=== PATIENT | female | born 2000 | race Caucasian/White ===

== ENCOUNTER 2022-12-11 09:23 | Outpatient (RCR) | payer OTHER, SELFPAY ==
[2022-12-11 10:23] LABS: HCG Quantitative 4197 mIU/mL
[2022-12-13 11:44] LABS: HCG Quantitative 11023 mIU/mL
== END 2023-01-02 15:59 | disposition home or self-care (01) ==
LOC: LAB 09:23
PROVIDERS: PCP Family Medicine; Visit Provider Obstetrics & Gynecology
DX: Z32.01 Encounter for pregnancy test, result positive (principal)
CPT/HCPCS: 36415; 84702

== ENCOUNTER 2022-12-27 16:00 | Emergency (ER) | payer OTHER, SELFPAY ==
[2022-12-27 16:04] VITALS: BP 119/72; PULSE 73; RESP 17; TEMP 36.9; O2SAT 100; BMI 20.7
[2022-12-27 16:09] VITALS: O2SAT 97
--- NOTE | 2022-12-27 16:21 | ED_ITS ---
HPI - Abdominal Pain General Chief Complaint: Abdominal Pain Stated Complaint: 7 WKS , ABDOMINAL PAIN, NAUSEA Time Seen by Provider: 12/27/22 16:08 Source: patient Mode of arrival: walk-in Limitations: no limitations History of Present Illness HPI narrative: patient is a 22-year-old female who presents to the emergency department for abdominal pain, nausea and vomiting. Patient states she is approximately seven weeks . She had an ultrasound showing twin gestation IUP with her [employer]. She has had no vaginal bleeding or fluid discharge. She denies urinary symptoms. She states for the last day she has had generalized abdominal pain, nausea and vomiting. No fevers or upper respiratory symptoms. Patient presents to this emergency department frequently for abdominal pain. she states she took Zofran two hours ago without improvement. Related Data Previous Rx's Medication Instructions Recorded cephalexin 500 mg capsule 500 mg PO Q8H 5 days #15 caps 12/27/22 metoclopramide HCl 10 mg tablet 10 mg PO Q6H PRN nausea and 12/27/22 (Reglan) vomiting #12 tabs Allergies Allergy/AdvReac Type Severity Reaction Status Date / Time No Known Drug Allergies Allergy Verified 12/27/22 16:03 Review of Systems ROS Constitutional Denies: fever or chills Ears, nose, mouth, and throat Denies: neck pain Cardiovascular Denies: chest pain Respiratory Denies: shortness of breath or cough Gastrointestinal Reports: abdominal pain, nausea and vomiting Musculoskeletal Denies: back pain or neck pain Integumentary/Breast Denies: rash PFSH PFSH Social History Smoking status: Current every day smoker Exam Narrative Exam Narrative: Gen.: Awake, alert, in no distress Head: Normocephalic, atraumatic ENT: Moist mucous membranes Respiratory: No respiratory distress, lungs clear bilaterally Cardio: Regular rate and rhythm Gastrointestinal: Abdomen is soft, nondistended and nontender to palpation; no pain out of proportion on exam Extremities: Moves extremities equally, no injuries noted Psych: Normal mood and affect Neuro: No focal neuro deficit Skin: Warm, dry, intact Constitutional Vital Signs - 24 hr 12/27/22 16:04 12/27/22 16:09 Temperature 98.5 F Pulse Rate [Monitor] 73 Respiratory Rate 17 Blood Pressure [Right Arm] 119/72 Pulse Oximetry 100 97 Oxygen Delivery Method Room Air Room Air Course Vital Signs Vital signs: Vital Signs Temperature 98.5 F 12/27/22 16:04 Pulse Rate 73 12/27/22 16:04 Respiratory Rate 17 12/27/22 16:04 Blood Pressure 119/72 12/27/22 16:04 Pulse Oximetry 100 12/27/22 16:04 Oxygen Delivery Method Room Air 12/27/22 16:04 Temperature 98.5 F 12/27/22 16:04 Pulse Rate 73 12/27/22 16:04 Respiratory Rate 17 12/27/22 16:04 Blood Pressure 119/72 12/27/22 16:04 Pulse Oximetry 97 12/27/22 16:09 Oxygen Delivery Method Room Air 12/27/22 16:09 MDM - Abdominal Pain MDM Narrative Medical decision making narrative: patient treated with IV fluids, Reglan, Bentyl. She stated that she was continuing to have abdominal pain and was given additional Tylenol and Carafate. Her lab studies show leukocytosis without bandemia as well as contaminated urinary tract infection. The remainder of the patient's labs are normal although her urine specimen was positive for marijuana which may be contributing to her nausea and vomiting in . She had no episodes of emesis in the emergency Department and tolerated the oral medications without difficulty. Abdomen is soft and benign on recheck by attending physician. Patient will be started on Keflex and Reglan for home, she has Zofran from her [employer]. Follow-up with seafood preparer and return to the Emergency Room if symptoms change or worsen. Patient with no suprapubic tenderness on exam, she has an ultrasound showing twin IUP, no concern for ectopic or tubal at this time. Her quantitative hCG levels have risen significantly in the last two weeks as expected. She has no vaginal bleeding or discharge complaints. Medical Records Attestation: I reviewed the patient's medical records. Lab Data Attestation: I reviewed the patient's lab results. Labs: Lab Results 12/27/22 12/27/22 Range/Units 16:08 16:20 WBC 17.7 H (4.0-11.0) 10^3/uL RBC 4.44 (4.20-5.40) 10^6/uL Hgb 12.8 (12.0-16.0) g/dL Hct 38.3 (36.0-48.0) % MCV 86.3 (81.0-99.0) fL MCH 28.8 (26.7-34.0) pg MCHC 33.4 (29.9-35.2) g/dL RDW 13.2 (11.0-15.0) % Plt Count 329 (150-450) 10^3/uL MPV 10.8 (9.5-13.5) fL Neut % (Auto) 86.9 H (43.0-75.0) % Lymph % (Auto) 8.7 L (20.5-60.0) % [place] % (Auto) 3.6 (1.7-12.0) % Eos % (Auto) 0.1 L (0.9-7.0) % Baso % (Auto) 0.3 (0.2-2.0) % Neut # (Auto) 15.4 H (1.4-6.5) 10^3/uL Lymph # (Auto) 1.5 (1.2-3.8) 10^3/uL [place] # (Auto) 0.6 (0.3-0.8) 10^3/uL Eos # (Auto) 0.0 (0.0-0.7) 10^3/uL Baso # (Auto) 0.1 (0.0-0.1) 10^3/uL Abs Immat Gran (auto) 0.07 H (0.00-0.03) 10^3/uL Imm/Tot Granulo (auto) 0.4 (0.0-0.5) % Sodium 136 (136-145) mmol/L Potassium 3.8 (3.5-5.1) mmol/L Chloride 101 (98-107) mmol/L Carbon Dioxide 26.6 (21.0-32.0) mmol/L Anion Gap 12.2 BUN 7.0 (7.0-18.0) mg/dL Creatinine 0.57 (0.55-1.02) mg/dL Est GFR ( Amer) >60 (>=60) Est GFR (Non-Af Amer) >60 (>=60) BUN/Creatinine Ratio 12.3 Glucose 97 (74-106) mg/dL Calcium 9.4 (8.5-10.1) mg/dL Total Bilirubin 0.3 (0.2-1.0) mg/dL AST 16 (15-37) U/L ALT 29 (14-59) U/L Alkaline Phosphatase 61 (46-116) U/L Total Protein 7.8 (6.4-8.2) g/dL Albumin 4.1 (3.4-5.0) g/dL Globulin 3.7 g/dL Albumin/Globulin Ratio 1.1 Lipase 53.0 L (73.0-393.0) U/L HCG, Quant 012533 mIU/mL Urine Color Yellow (YELLOW) Urine Clarity Clear (CLEAR) Urine pH 5.5 (5.0-9.0) Ur Specific [place] 1.025 (1.005-1.025) Urine Protein Negative (NEG/TRACE) mg/dL Urine Glucose (UA) Negative (NEGATIVE) mg/dL Urine Ketones 40 A (NEGATIVE) mg/dL Urine Occult Blood Negative (NEGATIVE) Urine Nitrite Negative (NEGATIVE) Urine Bilirubin Negative (NEGATIVE) Urine Urobilinogen 0.2 (0.2-1.0) EU/dL Ur Leukocyte Esterase Small A (NEGATIVE) Urine RBC 0-2 (0-2) #/HPF Urine WBC 5-10 A (NONE SEEN) #/HPF Ur Squamous Epith Cells Moderate A (NONE/RARE) #/LPF Urine Crystals None seen (None Seen) #/HPF Urine Bacteria Trace A (NONE SEEN) #/HPF Urine Casts None seen (NONE SEEN) #/LPF Urine Mucus None seen (NONE SEEN) Ur Culture Indicated? Yes Urine Opiates Screen Negative (NEGATIVE) Ur Buprenorphine Scrn Negative (NEGATIVE) Ur Oxycodone Screen Negative (NEGATIVE) Urine Methadone Screen Negative (NEGATIVE) Ur Propoxyphene Screen Negative (NEGATIVE) Ur Barbiturates Screen Negative (NEGATIVE) U Tricyclic Antidepress Negative (NEGATIVE) Ur Phencyclidine Scrn Negative (NEGATIVE) Ur Amphetamines Screen Negative (NEGATIVE) U Methamphetamines Scrn Negative (NEGATIVE) U Benzodiazepines Scrn Negative (NEGATIVE) Urine Cocaine Screen Negative (NEGATIVE) U Cannabinoids Screen Positive A (NEGATIVE) Discharge Plan Discharge Chief Complaint: Abdominal Pain Clinical Impression: UTI (urinary tract infection), Abdominal pain Patient Disposition: Home, Self-Care Time of Disposition Decision: 18:35 Condition: Good Prescriptions / Home Meds: New cephalexin 500 mg capsule 500 mg PO Q8H 5 Days Qty: 15 0RF metoclopramide HCl [Reglan] 10 mg tablet 10 mg PO Q6H PRN (Reason: nausea and vomiting) Qty: 12 0RF Instructions: Nausea and Vomiting in (ED), Urinary Tract Infection in (ED) Stand Alone Forms: Portal Instructions Referrals: Shan Moya MD [Primary Care Provider] - 1 week
[2022-12-27 16:28] LABS: Basophils Absolute Auto 0.1 10^3/uL (0.0-0.1); Basophils Percent Auto 0.3 % (0.2-2.0); Eosinophils Percent Auto 0.1 % (0.9-7.0); Hematocrit 38.3 % (36.0-48.0); Hemoglobin 12.8 g/dL (12.0-16.0); Immature Granulocytes Abs Auto 0.07 10^3/uL (0.00-0.03); Immature Granulocytes Pct Auto 0.4 % (0.0-0.5); Lymphocytes Absolute Auto 1.5 10^3/uL (1.2-3.8); Lymphocytes Percent Auto 8.7 % (20.5-60.0); Mean Corpuscular HGB Conc 33.4 g/dL (29.9-35.2); Mean Corpuscular Hemoglobin 28.8 pg (26.7-34.0); Mean Corpuscular Volume 86.3 fL (81.0-99.0); Mean Platelet Volume 10.8 fL (9.5-13.5); Monocytes Absolute Auto 0.6 10^3/uL (0.3-0.8); Monocytes Percent Auto 3.6 % (1.7-12.0); Neutrophils Absolute Auto 15.4 10^3/uL (1.4-6.5); Neutrophils Percent Auto 86.9 % (43.0-75.0); Platelet Count 329 10^3/uL (150-450); Red Blood Count 4.44 10^6/uL (4.20-5.40); Red Cell Distribution Width 13.2 % (11.0-15.0); White Blood Count 17.7 10^3/uL (4.0-11.0)
[2022-12-27 16:29] LABS: Bilirubin Urine NEGATIVE (NEGATIVE); Blood Urine NEGATIVE (NEGATIVE); Clarity Urine CLEAR (CLEAR); Color Urine YELLOW (YELLOW); Glucose Urine UA NEGATIVE (NEGATIVE); Ketones Urine 40 mg/dL (NEGATIVE); Leukocyte Esterase Urine SMALL (NEGATIVE); Nitrite Urine NEGATIVE (NEGATIVE); Protein Urine NEGATIVE (NEG/TRACE); Specific Gravity Urine 1.025 (1.005-1.025); Urobilinogen Urine 0.2 EU/dL (0.2-1.0); pH Urine 5.5 (5.0-9.0)
[2022-12-27 16:33] LABS: Urine Microscopic Indicated YES
[2022-12-27] MEDS: 0.9 % SODIUM CHLORIDE 1,000 ML 999 ML IV (16:36)
[2022-12-27] MEDS: METOCLOPRAMIDE HCL 10 MG/2 ML VIAL INJ (16:37)
[2022-12-27] MEDS: DICYCLOMINE HCL 10 MG CAPSULE 20 MG PO (16:38)
[2022-12-27 16:43] LABS: RBC Urine 0-2 #/HPF (0-2)
[2022-12-27 16:44] LABS: Bacteria Urine TRACE #/HPF (NONE SEEN); Cast Seen? NONE SEEN #/LPF (NONE SEEN); Crystals Seen? None Seen #/HPF (None Seen); Mucus Urine NONE SEEN (NONE SEEN); Squamous Epithelial Cell Urine MODERATE #/LPF (NONE/RARE); Urine Culture Indicated YES
[2022-12-27 16:50] LABS: Alanine Aminotransferase 29 U/L (14-59); Albumin Globulin Ratio 1.1; Albumin Level 4.1 g/dL (3.4-5.0); Alkaline Phosphatase 61 U/L (46-116); Anion Gap 12.2; Aspartate Amino Transferase 16 U/L (15-37); BUN Creatinine Ratio 12.3; Bilirubin Total 0.3 mg/dL (0.2-1.0); Calcium 9.4 mg/dL (8.5-10.1); Carbon Dioxide 26.6 mmol/L (21.0-32.0); Chloride 101 mmol/L (98-107); Estimated GFR (African America >60 (>=60); Estimated GFR (Non-African Ame >60 (>=60); Globulin 3.7 g/dL; Glucose 97 mg/dL (74-106); Potassium 3.8 mmol/L (3.5-5.1); Sodium 136 mmol/L (136-145); Total Protein 7.8 g/dL (6.4-8.2)
[2022-12-27 16:53] LABS: Amphetamine Screen Urine NEGATIVE (NEGATIVE); Barbiturates Screen Urine NEGATIVE (NEGATIVE); Benzodiazepines Screen Urine NEGATIVE (NEGATIVE); Buprenorphine Screen Urine NEGATIVE (NEGATIVE); Cannabinoid Screen Urine POSITIVE (NEGATIVE); Cocaine Screen Urine NEGATIVE (NEGATIVE); Methadone Screen Urine NEGATIVE (NEGATIVE); Methamphetamines Screen Urine NEGATIVE (NEGATIVE); Opiate Screen Urine NEGATIVE (NEGATIVE); Oxycodone Screen Urine NEGATIVE (NEGATIVE); Phencyclidine Screen Urine NEGATIVE (NEGATIVE); Tricyclic Antidepressant Urine NEGATIVE (NEGATIVE)
[2022-12-27] MEDS: SUCRALFATE 1 GM TABLET PO (17:21)
[2022-12-27] MEDS: ACETAMINOPHEN 325 MG TABLET 650 MG PO (17:21)
== END 2022-12-27 18:43 | disposition home or self-care (01) ==
PROVIDERS: Physician Assistant; Emergency Provider Emergency Medicine; PCP Family Medicine
DX: O23.41 Unspecified infection of urinary tract in pregnancy, first trimester (principal); N39.0 Urinary tract infection, site not specified; O26.891 Other specified pregnancy related conditions, first trimester; R10.9 Unspecified abdominal pain; Z3A.01 Less than 8 weeks gestation of pregnancy
CPT/HCPCS: 36415; 80053; 80307; 81003; 81015; 83690; 84702; 85025; 87086; 96372; 99284

== ENCOUNTER 2023-01-11 09:34 | Outpatient (OUT) | payer OTHER, SELFPAY ==
--- NOTE | 2023-01-11 09:04 | US_ITS ---
The [address] [address] Patient Name: LELIA CONNOLLY MRN: [id number] date: 2000 Sex: F Assigned Patient Location: US Current Patient Location: LAB Accession/Order Number: [id number] Exam Date: 01/11/2023 09:04 Report Date: 01/11/2023 19:09 At the request of: EN JOHNSON Procedure: US OB transvaginal EXAMINATION: US OB transvaginal HISTORY: MISSED PERIOD COMPARISON: No relevant comparison available. FINDINGS: GESTATIONAL SAC: Present and normal appearing x2. YOLK SAC: Present and normal appearing x2. POLE: Present and normal appearing x2. CARDIAC: Present x2. UTERUS: Normal size and appearance. OVARIES: Right: Normal. Left: Normal. CERVIX: 5.2 cm in length and closed. CUL-DE-SAC: Normal. OTHER: None. AGE BY LMP: 9 weeks 1 day ARNALDO BY LMP: 08/15/2023 AGE BY US CRL: Baby A: 9 weeks 1 day Baby B: 9 weeks 0 days ARNALDO BY US CRL: Baby A: 08/15/2023 Baby B: 08/16/2023 US/US OB transvaginal IMPRESSION: 1. Live twin intrauterine . Electronically authenticated by: SHIRLEY PATEL Date: 01/11/2023 19:09
== END 2023-01-11 09:35 | disposition home or self-care (01) ==
LOC: US 09:35
PROVIDERS: PCP Family Medicine; Visit Provider Obstetrics & Gynecology
DX: O30.001 Twin pregnancy, unspecified number of placenta and unspecified number of amniotic sacs, first trimester (principal); Z3A.09 9 weeks gestation of pregnancy; N92.6 Irregular menstruation, unspecified
CPT/HCPCS: 76817

== ENCOUNTER 2023-01-21 12:50 | Observation (INO) | payer OTHER, SELFPAY ==
[2023-01-21 12:55] VITALS: BP 124/68; PULSE 63; RESP 18; TEMP 36.4; O2SAT 96; BMI 18.5
[2023-01-21] MEDS: 0.9 % SODIUM CHLORIDE 1,000 ML 1000 ML IV ×2 (13:18→14:33)
[2023-01-21] MEDS: DIPHENHYDRAMINE HCL 50 MG/ML (1ML) VIAL 25 MG IV ×3 (13:19→21:14)
[2023-01-21] MEDS: FAMOTIDINE/PF 20 MG/2 ML VIAL IV (13:19)
[2023-01-21 13:36] LABS: Alanine Aminotransferase 24 U/L (14-59); Albumin Globulin Ratio 1.1; Albumin Level 3.8 g/dL (3.4-5.0); Alkaline Phosphatase 52 U/L (46-116); Anion Gap 14.2; Aspartate Amino Transferase 16 U/L (15-37); BUN Creatinine Ratio 8.2; Bilirubin Total 0.2 mg/dL (0.2-1.0); Calcium 8.7 mg/dL (8.5-10.1); Carbon Dioxide 22.8 mmol/L (21.0-32.0); Chloride 102 mmol/L (98-107); Estimated GFR (African America >60 (>=60); Estimated GFR (Non-African Ame >60 (>=60); Globulin 3.5 g/dL; Glucose 164 mg/dL (74-106); Sodium 136 mmol/L (136-145); Total Protein 7.3 g/dL (6.4-8.2)
[2023-01-21 13:39] LABS: Basophils Absolute Auto 0.1 10^3/uL (0.0-0.1); Basophils Percent Auto 0.3 % (0.2-2.0); Hematocrit 33.4 % (36.0-48.0); Hemoglobin 11.2 g/dL (12.0-16.0); Immature Granulocytes Abs Auto 0.15 10^3/uL (0.00-0.03); Immature Granulocytes Pct Auto 0.7 % (0.0-0.5); Lymphocytes Absolute Auto 2.1 10^3/uL (1.2-3.8); Lymphocytes Percent Auto 9.6 % (20.5-60.0); Mean Corpuscular HGB Conc 33.5 g/dL (29.9-35.2); Mean Corpuscular Hemoglobin 28.4 pg (26.7-34.0); Mean Corpuscular Volume 84.6 fL (81.0-99.0); Mean Platelet Volume 11.4 fL (9.5-13.5); Monocytes Absolute Auto 0.6 10^3/uL (0.3-0.8); Monocytes Percent Auto 2.6 % (1.7-12.0); Neutrophils Absolute Auto 19.3 10^3/uL (1.4-6.5); Neutrophils Percent Auto 86.8 % (43.0-75.0); Platelet Count 398 10^3/uL (150-450); Red Blood Count 3.95 10^6/uL (4.20-5.40); Red Cell Distribution Width 13.2 % (11.0-15.0); White Blood Count 22.3 10^3/uL (4.0-11.0)
--- NOTE | 2023-01-21 13:44 | ED.GENADUL1 ---
HPI - General Adult General Chief complaint: Nausea/Vomiting/Diarrhea Stated complaint: NAUSEA/ ALMOST 11 WKS Time Seen by Provider: 01/21/23 13:02 Mode of arrival: walk-in Limitations: no limitations History of Present Illness HPI narrative: The patient is 11 weeks with twin , presented to us with nausea and vomiting that started this morning and she has not been able to tolerate anything p.o., she was retching while I am talking to her She is also complaining of epigastric pain The pain is not radiating not associated with any other symptoms other than the nausea and the vomiting The patient already tried Zofran and Reglan at homewith no improvement Related Data Previous Rx's Medication Instructions Recorded cephalexin 500 mg capsule 500 mg PO Q8H 5 days #15 caps 12/27/22 metoclopramide HCl 10 mg tablet 10 mg PO Q6H PRN nausea and 12/27/22 (Reglan) vomiting #12 tabs Allergies Allergy/AdvReac Type Severity Reaction Status Date / Time No Known Drug Allergies Allergy Verified 12/27/22 16:03 Review of Systems ROS Status of ROS 10 or more systems reviewed and unremarkable except as noted in history and below [facility] Social History Smoking status: Current every day smoker Exam Narrative Exam Narrative: Nurses notes and vital signs reviewed and patient is not hypoxic. General: Well-appearing and in no apparent distress. Skin: Warm, dry, no pallor noted. No rash. Head: Normocephalic, atraumatic. Neck: Supple, non-tender. Eye: Pupils are equal, round and EOMI. No scleral icterus. Ears, Nose, Mouth, and Throat: TM are clear, no nasal mucosal hypertrophy. Oral mucosa is moist, no posterior oropharynx erythema, uvula is mid-line Cardiovascular: Regular Rate and Rhythm without murmur, gallop or rub. Respiratory: No accessory muscle use or respiratory distress. Lungs are clear to auscultation, no wheezing, rales or rhonchi Chest Wall: no tenderness Back: No midline thoracic or lumbar vertebral tenderness. No CVA tenderness Musculoskeletal: normal ROM, no calf or popliteal tenderness, no lower extremity edema/swelling GI: Abdomen is soft, non-distended. Normal bowel sounds. No masses appreciated. Mild epigastric discomfort and the patient have no guarding or rebound or rigidity Neurological: A&O x4. No cranial nerve dysfunction observed. No truncal ataxia. Moves all extremities. Sensation intact. Psychiatric: Cooperative and interactive. Normal mood and affect. Constitutional Vital Signs, click to edit/add: Last Vital Signs Temp 97.6 F 01/21/23 12:55 Pulse 63 01/21/23 12:55 Resp 18 01/21/23 12:55 BP 124/68 H 01/21/23 12:55 Pulse Ox 96 01/21/23 12:55 Course Vital Signs Vital signs: Vital Signs Temperature 97.6 F 01/21/23 12:55 Pulse Rate 63 01/21/23 12:55 Respiratory Rate 18 01/21/23 12:55 Blood Pressure 124/68 H 01/21/23 12:55 Pulse Oximetry 96 01/21/23 12:55 Temperature 97.6 F 01/21/23 12:55 Pulse Rate 63 01/21/23 12:55 Respiratory Rate 18 01/21/23 12:55 Blood Pressure 124/68 H 01/21/23 12:55 Pulse Oximetry 96 01/21/23 12:55 Medical Decision Making MDM Narrative Medical decision making narrative: Patient did not have any lower abdominal pain on multiple evaluation CBC was showing leukocytosis and she did look dehydrated upon presentation, she was not able to give us any urine sample until the second liter was given and she was able to give us a very small urine sample with ketones in it The patient chemistry showing hypokalemia and hypomagnesemia with potassium of 3 and magnesium 1.7 Patient provided with Zofran as well as Reglan Benadryl twice and Pepcid to control his symptoms With the patient's symptoms being severe the patient will be admitted under Dr. Joy , Dr Quintana also had the case discussed with him and he will be consulted on the patient as inpatient Lab Data Labs: Lab Results 01/21/23 01/21/23 01/21/23 Range/Units 13:00 13:05 13:08 WBC 22.3 H (4.0-11.0) 10^3/uL RBC 3.95 L (4.20-5.40) 10^6/uL Hgb 11.2 L (12.0-16.0) g/dL Hct 33.4 L (36.0-48.0) % MCV 84.6 (81.0-99.0) fL MCH 28.4 (26.7-34.0) pg MCHC 33.5 (29.9-35.2) g/dL RDW 13.2 (11.0-15.0) % Plt Count 398 (150-450) 10^3/uL MPV 11.4 (9.5-13.5) fL Neut % (Auto) 86.8 H (43.0-75.0) % Lymph % (Auto) 9.6 L (20.5-60.0) % [place] % (Auto) 2.6 (1.7-12.0) % Eos % (Auto) 0.0 L (0.9-7.0) % Baso % (Auto) 0.3 (0.2-2.0) % Neut # (Auto) 19.3 H (1.4-6.5) 10^3/uL Lymph # (Auto) 2.1 (1.2-3.8) 10^3/uL [place] # (Auto) 0.6 (0.3-0.8) 10^3/uL Eos # (Auto) 0.0 (0.0-0.7) 10^3/uL Baso # (Auto) 0.1 (0.0-0.1) 10^3/uL Abs Immat Gran (auto) 0.15 H (0.00-0.03) 10^3/uL Imm/Tot Granulo (auto) 0.7 H (0.0-0.5) % Sodium 136 (136-145) mmol/L Potassium 3.0 L (3.5-5.1) mmol/L Chloride 102 (98-107) mmol/L Carbon Dioxide 22.8 (21.0-32.0) mmol/L Anion Gap 14.2 BUN 4.0 L (7.0-18.0) mg/dL Creatinine 0.49 L (0.55-1.02) mg/dL Est GFR ( Amer) >60 (>=60) Est GFR (Non-Af Amer) >60 (>=60) BUN/Creatinine Ratio 8.2 Glucose 164 H (74-106) mg/dL Calcium 8.7 (8.5-10.1) mg/dL Magnesium 1.7 L (1.8-2.4) mg/dL Total Bilirubin 0.2 (0.2-1.0) mg/dL AST 16 (15-37) U/L ALT 24 (14-59) U/L Alkaline Phosphatase 52 (46-116) U/L Total Protein 7.3 (6.4-8.2) g/dL Albumin 3.8 (3.4-5.0) g/dL Globulin 3.5 g/dL Albumin/Globulin Ratio 1.1 HCG, Quant 354365 mIU/mL Urine Color (YELLOW) Urine Clarity (CLEAR) Urine pH (5.0-9.0) Ur Specific [place] (1.005-1.025) Urine Protein (NEG/TRACE) mg/dL Urine Glucose (UA) (NEGATIVE) mg/dL Urine Ketones (NEGATIVE) mg/dL Urine Occult Blood (NEGATIVE) Urine Nitrite (NEGATIVE) Urine Bilirubin (NEGATIVE) Urine Urobilinogen (0.2-1.0) EU/dL Ur Leukocyte Esterase (NEGATIVE) 01/21/23 Range/Units 14:40 WBC (4.0-11.0) 10^3/uL RBC (4.20-5.40) 10^6/uL Hgb (12.0-16.0) g/dL Hct (36.0-48.0) % MCV (81.0-99.0) fL MCH (26.7-34.0) pg MCHC (29.9-35.2) g/dL RDW (11.0-15.0) % Plt Count (150-450) 10^3/uL MPV (9.5-13.5) fL Neut % (Auto) (43.0-75.0) % Lymph % (Auto) (20.5-60.0) % [place] % (Auto) (1.7-12.0) % Eos % (Auto) (0.9-7.0) % Baso % (Auto) (0.2-2.0) % Neut # (Auto) (1.4-6.5) 10^3/uL Lymph # (Auto) (1.2-3.8) 10^3/uL [place] # (Auto) (0.3-0.8) 10^3/uL Eos # (Auto) (0.0-0.7) 10^3/uL Baso # (Auto) (0.0-0.1) 10^3/uL Abs Immat Gran (auto) (0.00-0.03) 10^3/uL Imm/Tot Granulo (auto) (0.0-0.5) % Sodium (136-145) mmol/L Potassium (3.5-5.1) mmol/L Chloride (98-107) mmol/L Carbon Dioxide (21.0-32.0) mmol/L Anion Gap BUN (7.0-18.0) mg/dL Creatinine (0.55-1.02) mg/dL Est GFR ( Amer) (>=60) Est GFR (Non-Af Amer) (>=60) BUN/Creatinine Ratio Glucose (74-106) mg/dL Calcium (8.5-10.1) mg/dL Magnesium (1.8-2.4) mg/dL Total Bilirubin (0.2-1.0) mg/dL AST (15-37) U/L ALT (14-59) U/L Alkaline Phosphatase (46-116) U/L Total Protein (6.4-8.2) g/dL Albumin (3.4-5.0) g/dL Globulin g/dL Albumin/Globulin Ratio HCG, Quant mIU/mL Urine Color Lt. yellow (YELLOW) Urine Clarity Clear (CLEAR) Urine pH 8.0 (5.0-9.0) Ur Specific [place] 1.025 (1.005-1.025) Urine Protein Negative (NEG/TRACE) mg/dL Urine Glucose (UA) 250 A (NEGATIVE) mg/dL Urine Ketones 15 A (NEGATIVE) mg/dL Urine Occult Blood Negative (NEGATIVE) Urine Nitrite Negative (NEGATIVE) Urine Bilirubin Negative (NEGATIVE) Urine Urobilinogen 0.2 (0.2-1.0) EU/dL Ur Leukocyte Esterase Negative (NEGATIVE) Discharge Plan Discharge Chief Complaint: Nausea/Vomiting/Diarrhea Clinical Impression: Nausea and vomiting during , Acute hypokalemia, Hypomagnesemia Patient Disposition: Admitted As Inpatient Time of Disposition Decision: 16:11 Condition: Fair
--- NOTE | 2023-01-21 13:49 | XR_ITS ---
[address] [address] Patient Name: LELIA CONNOLLY MRN: [id number] date: 2000 Sex: F Assigned Patient Location: ER Current Patient Location: ER Accession/Order Number: [id number] Exam Date: 01/21/2023 14:00 Report Date: 01/21/2023 14:42 At the request of: ELÍAS HAHN Procedure: XR abdomen 1V EXAMINATION: XR abdomen 1V HISTORY: epigastric abd pain COMPARISON: No relevant comparison available. FINDINGS: BOWEL GAS PATTERN: No abnormal dilation or deviation. CALCIFICATIONS: None significant. OTHER: Negative. No abnormal gaseous collections. XR/XR abdomen 1V IMPRESSION: 1. Normal examination. Electronically authenticated by: SHIRLEY PATEL Date: 01/21/2023 14:42
--- NOTE | 2023-01-21 13:51 | US_ITS ---
The [address] [address] Patient Name: LELIA CONNOLLY MRN: [id number] date: 2000 Sex: F Assigned Patient Location: ER Current Patient Location: ER Accession/Order Number: [id number] Exam Date: 01/21/2023 14:10 Report Date: 01/21/2023 14:42 At the request of: ELÍAS HAHN Procedure: US right upper quadrant PROCEDURE: US right upper quadrant, 01/21/2023 2:10 PM EDT CLINICAL INDICATIONS: Left upper quadrant abdominal pain, 10 week , nausea, vomiting COMPARISON: None TECHNIQUE: Right upper quadrant abdominal sonogram FINDINGS: Visualized pancreas is unremarkable. No ductal dilatation is seen. Hepatic parenchyma is normal in morphology and echogenicity. Hepatic contour is smooth. Focal hepatic abnormality is not seen. Visualized hepatic vasculature is patent with antegrade flow. Portal vein is patent, antegrade flow, normal velocity. Common bile duct 0.6 cm. The gallbladder is normal in size. Gallbladder calculus, wall thickening, or pain in the region is not elicited. Right kidney is normal in morphology. It measures 9.2 x 5.9 x 6.0 cm. No hydronephrosis or shadowing calculus is identified. Focal renal abnormality is not demonstrated. No free fluid. US/US right upper quadrant IMPRESSION: 1. No acute right upper quadrant abdominal pathology Electronically authenticated by: ANA TOBAR Date: 01/21/2023 14:42
[2023-01-21] MEDS: ONDANSETRON PF 4 MG/2 ML VIAL IV ×3 (13:55→23:29)
[2023-01-21] MEDS: METOCLOPRAMIDE HCL 10 MG/2 ML VIAL 5 MG IVP (14:40)
[2023-01-21 14:48] LABS: Magnesium 1.7 mg/dL (1.8-2.4)
[2023-01-21] MEDS: MORPHINE SULFATE 2 MG/ML SYRINGE 1 MG IV (15:23)
--- NOTE | 2023-01-21 15:30 | ECG_ITS ---
The [facility] Test Date: 2023-01-21 Pat Name: LELIA CONNOLLY Department: Room: - Gender: Female [employer] Celebrant: : 2000 Requested By: [id number] Order Number: [id number] Reading MD: ADRI ANDRADE Measurements Intervals [place] Rate: 77 P: 65 OK: 116 QRS: 88 QRSD: 90 T: 65 QT: 438 QTc: 470 Interpretive Statements 1100 Sinus rhythm 1470 with occasional supraventricular premature complexes 2210 Short OK interval 4068 Nonspecific Twave abnormality 8304 Long QTc interval 9150 abnormal ECG No previous ECG available for comparison Electronically Signed On 01-22-2023 7:20:03 EDT by ADRI ANDRADE
[2023-01-21 15:34] LABS: Bilirubin Urine NEGATIVE (NEGATIVE); Blood Urine NEGATIVE (NEGATIVE); Clarity Urine CLEAR (CLEAR); Color Urine LT. YELLOW (YELLOW); Glucose Urine UA 250 mg/dL (NEGATIVE); Ketones Urine 15 mg/dL (NEGATIVE); Leukocyte Esterase Urine NEGATIVE (NEGATIVE); Nitrite Urine NEGATIVE (NEGATIVE); Protein Urine NEGATIVE (NEG/TRACE); Specific Gravity Urine 1.025 (1.005-1.025); Urobilinogen Urine 0.2 EU/dL (0.2-1.0)
[2023-01-21 15:38] LABS: Urine Microscopic Indicated NO
[2023-01-21] MEDS: POTASSIUM CHLORIDE IN WATER 10 MEQ/100 ML PIGGYBACK 100 MEQ IV (16:03)
[2023-01-21 17:28] VITALS: BP 118/72; PULSE 81; RESP 16; TEMP 36.7; O2SAT 96; BMI 22.0
[2023-01-21 18:11] LABS: Amphetamine Screen Urine NEGATIVE (NEGATIVE); Barbiturates Screen Urine NEGATIVE (NEGATIVE); Benzodiazepines Screen Urine NEGATIVE (NEGATIVE); Buprenorphine Screen Urine NEGATIVE (NEGATIVE); Cannabinoid Screen Urine POSITIVE (NEGATIVE); Cocaine Screen Urine NEGATIVE (NEGATIVE); Methadone Screen Urine NEGATIVE (NEGATIVE); Methamphetamines Screen Urine NEGATIVE (NEGATIVE); Opiate Screen Urine NEGATIVE (NEGATIVE); Oxycodone Screen Urine NEGATIVE (NEGATIVE); Phencyclidine Screen Urine NEGATIVE (NEGATIVE); Tricyclic Antidepressant Urine NEGATIVE (NEGATIVE)
[2023-01-21] MEDS: 0.9 % SODIUM CHLORIDE 1,000 ML 125 ML IV (18:19)
[2023-01-21] MEDS: CEFAZOLIN SODIUM/DEXTROSE,ISO 1 GM/50 ML IV.SOLN IV (21:09)
[2023-01-21 21:10] VITALS: BP 117/69; PULSE 83; RESP 18; TEMP 36.7; O2SAT 99
[2023-01-21] MEDS: METOCLOPRAMIDE HCL 10 MG/2 ML VIAL (21:14)
[2023-01-21] MEDS: METRONIDAZOLE/SODIUM CHLORIDE 500 MG/100 ML PREMIX 100 MG IV (22:02)
[2023-01-21] MEDS: DICYCLOMINE HCL 10 MG CAPSULE PO (23:46)
[2023-01-22] MEDS: METOCLOPRAMIDE HCL 10 MG/2 ML VIAL IVP (01:03)
[2023-01-22] MEDS: ONDANSETRON PF 4 MG/2 ML VIAL IV ×2 (03:07→09:02)
[2023-01-22] MEDS: CEFAZOLIN SODIUM/DEXTROSE,ISO 1 GM/50 ML IV.SOLN IV ×2 (03:07→12:39)
[2023-01-22] MEDS: 0.9 % SODIUM CHLORIDE 1,000 ML 125 ML IV ×2 (03:13→12:38)
[2023-01-22 04:25] VITALS: BP 112/70; PULSE 98; RESP 18; TEMP 37.2; O2SAT 99
[2023-01-22 04:44] LABS: Basophils Percent Auto 0.1 % (0.2-2.0); Hematocrit 29.3 % (36.0-48.0); Hemoglobin 9.9 g/dL (12.0-16.0); Immature Granulocytes Abs Auto 0.19 10^3/uL (0.00-0.03); Immature Granulocytes Pct Auto 0.8 % (0.0-0.5); Lymphocytes Absolute Auto 1.1 10^3/uL (1.2-3.8); Lymphocytes Percent Auto 4.4 % (20.5-60.0); Mean Corpuscular HGB Conc 33.8 g/dL (29.9-35.2); Mean Corpuscular Hemoglobin 28.3 pg (26.7-34.0); Mean Corpuscular Volume 83.7 fL (81.0-99.0); Mean Platelet Volume 11.4 fL (9.5-13.5); Monocytes Percent Auto 3.9 % (1.7-12.0); Neutrophils Absolute Auto 22.9 10^3/uL (1.4-6.5); Neutrophils Percent Auto 90.8 % (43.0-75.0); Platelet Count 307 10^3/uL (150-450); Red Cell Distribution Width 13.3 % (11.0-15.0); White Blood Count 25.2 10^3/uL (4.0-11.0)
[2023-01-22 05:02] LABS: Estimated Average Glucose 97 mg/dL
[2023-01-22 05:20] LABS: Alanine Aminotransferase 23 U/L (14-59); Albumin Level 3.2 g/dL (3.4-5.0); Alkaline Phosphatase 47 U/L (46-116); Amylase 52 U/L (25-115); Anion Gap 13.1; Aspartate Amino Transferase 14 U/L (15-37); BUN Creatinine Ratio 2.3; Bilirubin Total 0.2 mg/dL (0.2-1.0); Blood Urea Nitrogen <1.0 mg/dL (7.0-18.0); Calcium 7.9 mg/dL (8.5-10.1); Carbon Dioxide 22.1 mmol/L (21.0-32.0); Chloride 104 mmol/L (98-107); Estimated GFR (African America >60 (>=60); Estimated GFR (Non-African Ame >60 (>=60); Globulin 3.1 g/dL; Glucose 115 mg/dL (74-106); Potassium 3.2 mmol/L (3.5-5.1); Sodium 136 mmol/L (136-145); Total Protein 6.3 g/dL (6.4-8.2)
[2023-01-22 05:21] LABS: Thyroid Stimulating Hormone 0.069 uIU/mL (0.358-3.740)
[2023-01-22 05:49] LABS: Free T4 1.07 ng/dL (0.76-1.46)
[2023-01-22] MEDS: METRONIDAZOLE/SODIUM CHLORIDE 500 MG/100 ML PREMIX 100 MG IV (08:57)
--- NOTE | 2023-01-22 09:00 | CM.NOTE ---
Pt verbalizes that she was seeing GI specialist for this intractable vomiting prior to . Pt also testing positive for THC this admission. Pt verbalizes understanding about cyclic vomiting, pt states she is unable to take some of her medications now d/t . 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 No resources wanted at this time. Pt has great support system, lives with her boyfriend at this time. Pt very worried about unborn babies at this time, awaiting to see Dr. Joy. Pt denies any discharge needs. Pt states her OBGYN is looking into a Zofran pump for her at this time, pt does state Zofran has not helped in the past for her nausea and vomiting. Information passed on to the RN.
[2023-01-22] MEDS: lidocaine HCL 15 ML, MAG HYDROX/ALUMINUM HYD/SIMETH 30 ML, HYOSCYAMINE SULFATE 0.25 MG PO (09:34)
[2023-01-22] MEDS: PANTOPRAZOLE SODIUM 40 MG VIAL IV (10:11)
--- NOTE | 2023-01-22 12:01 | CM.NOTE ---
Rounds made with Dr. Joy. Discussed various medications that can be be given during with Shanon. Awaiting plan from [facility]LE[facility].
[2023-01-22 13:42] VITALS: BP 110/69; PULSE 76; RESP 16; TEMP 37.1; O2SAT 100
--- NOTE | 2023-01-22 15:06 | PM.HP ---
H&P: HPI History of Present Illness Chief complaint: Intractable nausea and vomiting Narrative: HPI and Hospital Course: 22 y o female with chronic abdominal pain for years, currently , first trimester came in with intractable nausea and vomiting, poor PO intake, dehydration was admitted for IV hydration and intractable nausea and vomiting. This is her first and she is with twins. She is using Zofran and Reglan as needed for nausea/vomiting. Denies urinary symptoms, cough, SOB, fever/chills.Denies changes in bowel habits. She reports she has chronic LUQ pain for which she was prescribed Elavil by GI and it helped but she can't use it since she is now and she is experiencing this LUQ pain because of it that's making her nauseous and throw up. Her nausea/vomiting has gotten emely worse over past couple of days and that's why she came to ED. On W/U she was noted to have hypokalemia, hypomangnesemia and leukocytosis and was dehydrated on clinical exam. She was admitted for observation, IV fluids and manage her symptoms and was feeling better today. Reports mild nausea but was able to keep her breakfast down. She was empirically started on Cefazolin and Flagyl by OBGYN for her Leukocytosis until any underlying infectious process was ruled out. Her leukocytosis has improved and there is no evidence of ongoing infection on exam, diagnostic w/u. Stable for d/c from medical point of view. D/w Dr Quintana who will distribution center administrator her up with home IV fluids along with zofran pump for her hyperemesis gravidarum Admission Diagnosis Hyperemesis gravidarum Dehydration Intractable nausea and vomiting First trimester Hypokalemia Hypomagnesemia Bipolar disorder Leukocytosis Discharge Diagnosis as above Review of Systems ROS Status of ROS 10 or more systems reviewed and unremarkable except as noted in history and below [facility] Medical History (Updated 01/22/23 @ 16:45 by Shaikh Benita MD) Social History (Updated 01/21/23 @ 17:15 by Laura Hsu LPN) Within the past year, how often did you have a drink containing alcohol: never Within the past year, how many standard drinks containing alcohol did you have on a typical day: 1 or 2 Within the past year, how often did you have six or more drinks on one occasion: never Total score: 0 Score interpretation: A score less than 3 is consistent with normal alcohol consumption. 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 Known occupational exposures/hazards: No Highest level of school completed/degree received: 11th grade Do you want help with school or training: No Are you now , , , , never or living with a partner: living with partner In a typical week, how many times do you talk on the telephone with family, friends, or neighbors: 3 or more times per week How often do you get together with friends or relatives: 3 or more times per week How often do you attend rastafarian or judaism services: never Do you belong to any clubs or organizations such as rastafarian groups unions, [employer] or athletic groups, or school groups: no Total score: 2 Score interpretation: A score of greater than or equal to 2 indicates the lowest level of social isolation. Little interest or pleasure in doing things: not at all Feeling down, depressed, or hopeless: not at all Feel stressed/tense/nervous/anxious/difficulty sleeping: not at all Due to disability, difficulty making decisions: No Do you think of yourself as: straight/heterosexual Gender Identity: female Meds Home Medications and Allergies Home Medications Medication Instructions Recorded Confirmed Type metoclopramide HCl 10 mg tablet 10 mg PO Q6H PRN nausea and 12/27/22 01/21/23 Rx (Reglan) vomiting #12 tabs citalopram 40 mg tablet 40 mg PO DAILY 01/21/23 01/21/23 History cyclobenzaprine 10 mg tablet 10 mg PO QPM 01/21/23 01/22/23 History hydroxyzine HCl 25 mg tablet 25 mg PO DAILY 01/21/23 01/21/23 History lamotrigine 25 mg tablet 25 mg PO QPM 01/21/23 01/21/23 History magnesium oxide 400 mg (241.3 mg 400 mg PO DAILY 01/21/23 01/21/23 History magnesium) tablet [id number] 1 mg 1 tab PO DAILY 01/21/23 01/21/23 History tablet Allergies Allergy/AdvReac Type Severity Reaction Status Date / Time No Known Drug Allergies Allergy Verified 12/27/22 16:03 Exam Constitutional Vital Signs, click to edit/add: Last Vital Signs Temp 98.7 F 01/22/23 13:42 Pulse 76 01/22/23 13:42 Resp 16 01/22/23 13:42 BP 110/69 01/22/23 13:42 Pulse Ox 100 01/22/23 13:42 O2 Del Method Room Air 01/22/23 13:42 Documenting provider has reviewed patient's vital signs: yes Common normals: no apparent distress General appearance: cooperative and comfortable HENMT Common normals: normocephalic and head/scalp atraumatic Eye Common normals: conjunctivae normal and no scleral icterus Respiratory Common normals: normal respiratory effort, no use of accessory muscles and clear to auscultation bilaterally GI Common normals: Normal to inspection, nondistended, normoactive bowel sounds present, soft to palpation, non-tender and no hepatosplenomegaly Extremity Common normals: normal to inspection and full ROM Neuro Common normals: CN's II-XII intact bilaterally, moves all extremities, no focal motor deficits and no sensory deficits noted Psych Common normals: mental status grossly normal, denies hallucinations, denies homicidal ideation and denies suicidal ideation Results Labs Labs: Short CBC 01/22/23 Range/Units 04:21 WBC 25.2 H (4.0-11.0) 10^3/uL Hgb 9.9 L (12.0-16.0) g/dL Hct 29.3 L (36.0-48.0) % Plt Count 307 (150-450) 10^3/uL BMP 01/22/23 04:21 Sodium 136 Potassium 3.2 L Chloride 104 Carbon Dioxide 22.1 BUN <1.0 L Creatinine 0.43 L Glucose 115 H Calcium 7.9 L Liver Function 01/22/23 Range/Units 04:21 Total Bilirubin 0.2 (0.2-1.0) mg/dL AST 14 L (15-37) U/L ALT 23 (14-59) U/L Alkaline Phosphatase 47 (46-116) U/L Albumin 3.2 L (3.4-5.0) g/dL Urine 01/21/23 Range/Units 14:40 Urine Color Lt. yellow (YELLOW) Urine Clarity Clear (CLEAR) Urine pH 8.0 (5.0-9.0) Ur Specific [place] 1.025 (1.005-1.025) Urine Protein Negative (NEG/TRACE) mg/dL Urine Glucose (UA) 250 A (NEGATIVE) mg/dL Assessment and Plan Assessment and Plan (1) Intractable nausea and vomiting: Assessment and Plan: Intractable nausea/vomiting. Improved. Tolerating oral diet now. Stable for discharge from medical pov. (2) Hyperemesis gravidarum before end of 22 week gestation with dehydration: Assessment and Plan: Poor PO intake, intractable nausea and vomiting resulting in dehydration. OBGYN will set her with zofran pump and IV fluids at home Tolerating PO diet now. (3) Leukocytosis: Assessment and Plan: Likely reactive due to /dehydration. Trended down. No source of infection identified. Will not need abx on d/c (4) Twin in first trimester: Assessment and Plan: First trimerster, first , with twins Following Dr Quintana Discussed smoking cig and marijuana use while and potential adverse effects on her current . (5) Acute hypokalemia: Assessment and Plan: due to N/V Repleted while in the hospital (6) Hypomagnesemia: Assessment and Plan: Repleted. (7) Bipolar 2 disorder: Assessment and Plan: Stable. On Lamotrigine and Citalopram (8) Chronic abdominal pain: Assessment and Plan: LUQ pain, chronic. Was better with Elavil. Suspect functional dyspepsia.
[2023-01-22 15:13] LABS: Basophils Percent Auto 0.1 % (0.2-2.0); Hematocrit 29.2 % (36.0-48.0); Hemoglobin 9.8 g/dL (12.0-16.0); Immature Granulocytes Abs Auto 0.06 10^3/uL (0.00-0.03); Immature Granulocytes Pct Auto 0.4 % (0.0-0.5); Lymphocytes Absolute Auto 1.3 10^3/uL (1.2-3.8); Lymphocytes Percent Auto 9.4 % (20.5-60.0); Mean Corpuscular HGB Conc 33.6 g/dL (29.9-35.2); Mean Corpuscular Hemoglobin 28.5 pg (26.7-34.0); Mean Corpuscular Volume 84.9 fL (81.0-99.0); Mean Platelet Volume 11.2 fL (9.5-13.5); Monocytes Absolute Auto 0.8 10^3/uL (0.3-0.8); Monocytes Percent Auto 5.4 % (1.7-12.0); Neutrophils Percent Auto 84.7 % (43.0-75.0); Platelet Count 297 10^3/uL (150-450); Red Blood Count 3.44 10^6/uL (4.20-5.40); Red Cell Distribution Width 13.5 % (11.0-15.0); White Blood Count 14.2 10^3/uL (4.0-11.0)
--- NOTE | 2023-01-22 16:48 | PM.OBPN ---
OB - PN: Subj Subjective Interval history: pt greatly improved, states nausea and vomiting is better, denies urinary symptoms, denies d,f,c Exam Constitutional Vital Signs, click to edit/add: Last Vital Signs Temp 98.7 F 01/22/23 13:42 Pulse 76 01/22/23 13:42 Resp 16 01/22/23 13:42 BP 110/69 01/22/23 13:42 Pulse Ox 100 01/22/23 13:42 O2 Del Method Room Air 01/22/23 13:42 Documenting provider has reviewed patient's vital signs: yes Common normals: no apparent distress Respiratory Common normals: normal respiratory effort and clear to auscultation bilaterally Cardio Common normals: regular rate and regular rhythm GI Common normals: Normal to inspection, nondistended, normoactive bowel sounds present Extremity Common normals: no clubbing, cyanosis or edema and no calf tenderness Results Labs Labs: Short CBC 01/22/23 01/22/23 Range/Units 04:21 14:40 WBC 25.2 H 14.2 H (4.0-11.0) 10^3/uL Hgb 9.9 L 9.8 L (12.0-16.0) g/dL Hct 29.3 L 29.2 L (36.0-48.0) % Plt Count 307 297 (150-450) 10^3/uL BMP 01/22/23 04:21 Sodium 136 Potassium 3.2 L Chloride 104 Carbon Dioxide 22.1 BUN <1.0 L Creatinine 0.43 L Glucose 115 H Calcium 7.9 L Liver Function 01/22/23 Range/Units 04:21 Total Bilirubin 0.2 (0.2-1.0) mg/dL AST 14 L (15-37) U/L ALT 23 (14-59) U/L Alkaline Phosphatase 47 (46-116) U/L Albumin 3.2 L (3.4-5.0) g/dL OB - PN: A/P Assessment and Plan (1) Twin in first trimester: (2) Leukocytosis: (3) Hyperemesis gravidarum before end of 22 week gestation with dehydration: (4) Nausea and vomiting during : (5) UTI (urinary tract infection): Plan hyperemesis gravidarium, iup at 11wks, twin gestation-iv hydration, iv abx, outpatient zofran pump and iv hydration, rx for flagyl and phenergan, dc home Time Spent with Patient Time: Total time spent is greater than 50% in coordination of care (as documented) at patient's floor/unit and/or counseling patient: Total time spent with greater than 50% in coordination of care (as documented) at patient's floor/unit and/or counseling patient: 25 - 35 minutes
== END 2023-01-22 17:24 | disposition home or self-care (01) ==
LOC: ER 16:18 → MS 17:05
PROVIDERS: Obstetrics & Gynecology; Admitting Provider Internal Medicine; Emergency Provider Emergency Medicine; PCP Family Medicine; Visit Provider Internal Medicine
DX: O21.0 Mild hyperemesis gravidarum (principal); O30.001 Twin pregnancy, unspecified number of placenta and unspecified number of amniotic sacs, first trimester; O23.41 Unspecified infection of urinary tract in pregnancy, first trimester; N39.0 Urinary tract infection, site not specified; O26.891 Other specified pregnancy related conditions, first trimester; O99.341 Other mental disorders complicating pregnancy, first trimester; F31.9 Bipolar disorder, unspecified; E87.6 Hypokalemia; E83.42 Hypomagnesemia; D72.829 Elevated white blood cell count, unspecified; O99.331 Smoking (tobacco) complicating pregnancy, first trimester; F17.290 Nicotine dependence, other tobacco product, uncomplicated; Z3A.11 11 weeks gestation of pregnancy
CPT/HCPCS: 36415; 74018; 76705; 80048; 80053; 80307; 81003; 82150; 82565; 83036; 83690; 83735; 84439; 84443; 84702; 85025; 93005; 96361; 96365; 96375; 96376; 99285; G0378

== ENCOUNTER 2023-01-22 22:14 | Observation (INO) | payer OTHER, SELFPAY ==
[2023-01-22 22:23] VITALS: BP 129/67; PULSE 100; RESP 16; TEMP 36.9; O2SAT 99; BMI 19.2
--- NOTE | 2023-01-22 22:29 | ED.NAVMDI1 ---
HPI - Nausea/Vomiting/Diarrhea General Chief complaint: Nausea/Vomiting/Diarrhea Stated complaint: nausea/ Vomiting Time Seen by Provider: 01/22/23 22:17 Source: patient Limitations: no limitations History of Present Illness HPI Narrative: Patient presents to emergency department complaining of nausea and vomiting. Patient is 11 weeks gestation with twins. Her YACHT HAND is Dr. Quintana. She was admitted yesterday with hyperemesis gravidarum, and hypo-kalemia. She was given IV fluids, and anti-emetics. Patient's symptomatology improved after a gastrointestinal cocktail and she was discharged home. She went home at approximately 5 PM and states that by the time she got home she started feeling nauseated. She took 4 mg of Zofran ODT, and Phenergan by mouth and she continued to vomit in spite of having those antiemetics on board.Patient denies any fever, chills. She denies any diarrhea. She denies any abdominal pain. She denies any vaginal bleeding, discharge. Denies any flank pain, hematuria, dysuria. Related Data Home Medications Medication Instructions Recorded Confirmed citalopram 40 mg tablet 40 mg PO DAILY 01/21/23 01/21/23 cyclobenzaprine 10 mg tablet 10 mg PO QPM 01/21/23 01/22/23 hydroxyzine HCl 25 mg tablet 25 mg PO DAILY 01/21/23 01/21/23 lamotrigine 25 mg tablet 25 mg PO QPM 01/21/23 01/21/23 magnesium oxide 400 mg (241.3 mg 400 mg PO DAILY 01/21/23 01/21/23 magnesium) tablet [id number]-FA 1 mg 1 tab PO DAILY 01/21/23 01/21/23 tablet Previous Rx's Medication Instructions Recorded metoclopramide HCl 10 mg tablet 10 mg PO Q6H PRN nausea and 12/27/22 (Reglan) vomiting #12 tabs cephalexin 500 mg capsule 500 mg PO QID 10 days #40 caps 01/22/23 promethazine 12.5 mg tablet 12.5 mg PO Q6H PRN nausea and 01/22/23 vomiting #30 tabs promethazine 25 mg rectal 25 mg PA Q6H PRN nausea and 01/23/23 suppository vomiting #12 ea Allergies Allergy/AdvReac Type Severity Reaction Status Date / Time No Known Drug Allergies Allergy Verified 12/27/22 16:03 Review of Systems ROS Status of ROS 10 or more systems reviewed and unremarkable except as noted in history and below [facility] Medical History (Updated 01/23/23 @ 01:44 by Dimple Brannon MD) Surgical History (Updated 01/23/23 @ 02:56 by Job Gutierrez) Family History (Updated 01/23/23 @ 02:57 by Job Gutierrez) Father Family history of COPD (chronic obstructive pulmonary disease) Grandmother Family history of COPD (chronic obstructive pulmonary disease) Family history of cancer Sister Family history of diabetes mellitus Social History (Updated 01/21/23 @ 17:15 by Laura Hsu LPN) Within the past year, how often did you have a drink containing alcohol: never Within the past year, how many standard drinks containing alcohol did you have on a typical day: 1 or 2 Within the past year, how often did you have six or more drinks on one occasion: never Total score: 0 Score interpretation: A score less than 3 is consistent with normal alcohol consumption. 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 Known occupational exposures/hazards: No Highest level of school completed/degree received: 11th grade Do you want help with school or training: No Are you now , , , , never or living with a partner: living with partner In a typical week, how many times do you talk on the telephone with family, friends, or neighbors: 3 or more times per week How often do you get together with friends or relatives: 3 or more times per week How often do you attend cheondoism or congregational services: never Do you belong to any clubs or organizations such as cheondoism groups unions, fraternal or athletic groups, or school groups: no Total score: 2 Score interpretation: A score of greater than or equal to 2 indicates the lowest level of social isolation. Little interest or pleasure in doing things: not at all Feeling down, depressed, or hopeless: not at all Feel stressed/tense/nervous/anxious/difficulty sleeping: not at all Due to disability, difficulty making decisions: No Do you think of yourself as: straight/heterosexual Gender Identity: female Exam Narrative Exam Narrative: Nurses notes and vital signs reviewed and patient is not hypoxic. General: Nontoxic, Dry heaving, and in no apparent distress. Skin: Warm, dry, pallor noted. No Rash Head: Normocephalic, atraumatic. Neck: Supple, non-tender. Eye: Pupils are equal, round and EOMI. No scleral icterus. Ears, Nose, Mouth, and Throat: TM clear, no posterior oropharynx erythema or nasal mucosal hypertrophy, uvula is mid-line Oral mucosa is moist Cardiovascular: Regular Rate and Rhythm without murmur, gallop or rub. Respiratory: No accessory muscle use or respiratory distress. Lungs are clear to auscultation, no wheezing, rales or rhonchi Chest Wall: no tenderness Back: No midline thoracic or lumbar vertebral tenderness. No CVA tenderness Musculoskeletal: normal ROM, no calf or popliteal tenderness, no lower extremity edema/swelling GI: Abdomen is soft, non-distended. Normal bowel sounds. No masses appreciated. No tenderness to palpation. No rebound, guarding, or rigidity noted. Neurological: A&O x4. No cranial nerve dysfunction observed. No truncal ataxia. Moves all extremities. Sensation intact. Psychiatric: Cooperative and interactive. Normal mood and affect. Constitutional Vital Signs, click to edit/add: Last Vital Signs Temp 98.4 F 01/22/23 22:23 Pulse 100 H 01/22/23 22:23 Resp 16 01/22/23 22:23 BP 129/67 H 01/22/23 22:23 Pulse Ox 99 01/22/23 22:23 Course Vital Signs Vital signs: Vital Signs Temperature 98.4 F 01/22/23 22:23 Pulse Rate 100 H 01/22/23 22:23 Respiratory Rate 16 01/22/23 22:23 Blood Pressure 129/67 H 01/22/23 22:23 Pulse Oximetry 99 01/22/23 22:23 Temperature 98.4 F 01/22/23 22:23 Pulse Rate 100 H 01/22/23 22:23 Respiratory Rate 16 01/22/23 22:23 Blood Pressure 129/67 H 01/22/23 22:23 Pulse Oximetry 99 01/22/23 22:23 MDM - Nausea/Vomiting/Diarrhea MDM Narrative Medical decision making narrative: Previously established. She was given Zofran, Phenergan, Pepcid and normal saline. Patient's symptoms improved. Her pulse potassium is 3, she was given potassium 50 morning feeling: [place] which she was not able to tolerate. She was given a gastrointestinal cocktail was discussed with Dr. Quintana she still was not able to tolerate the potassium. More antibiotics were ordered. The patient started dry heaving and subsequently vomiting. The patient was discussed with Dr. [place]. Patient tolerating by mouth with oral antibiotics. She has Zofran pump order by Dr. Quintana which showed a right tomorrow or the following day. Differential Diagnosis Differential diagnosis: Likely gastroenteritis and dehydration Medical Records Attestation: I reviewed the patient's medical records. Lab Data Attestation: I reviewed the patient's lab results. Labs: Lab Results 01/22/23 Range/Units 22:42 WBC 16.2 H (4.0-11.0) 10^3/uL RBC 3.78 L (4.20-5.40) 10^6/uL Hgb 10.6 L (12.0-16.0) g/dL Hct 32.0 L (36.0-48.0) % MCV 84.7 (81.0-99.0) fL MCH 28.0 (26.7-34.0) pg MCHC 33.1 (29.9-35.2) g/dL RDW 13.4 (11.0-15.0) % Plt Count 335 (150-450) 10^3/uL MPV 10.8 (9.5-13.5) fL Neut % (Auto) 86.1 H (43.0-75.0) % Lymph % (Auto) 9.5 L (20.5-60.0) % [place] % (Auto) 3.6 (1.7-12.0) % Eos % (Auto) 0.0 L (0.9-7.0) % Baso % (Auto) 0.2 (0.2-2.0) % Neut # (Auto) 14.0 H (1.4-6.5) 10^3/uL Lymph # (Auto) 1.6 (1.2-3.8) 10^3/uL [place] # (Auto) 0.6 (0.3-0.8) 10^3/uL Eos # (Auto) 0.0 (0.0-0.7) 10^3/uL Baso # (Auto) 0.0 (0.0-0.1) 10^3/uL Abs Immat Gran (auto) 0.10 H (0.00-0.03) 10^3/uL Imm/Tot Granulo (auto) 0.6 H (0.0-0.5) % Sodium 140 (136-145) mmol/L Potassium 3.0 L (3.5-5.1) mmol/L Chloride 103 (98-107) mmol/L Carbon Dioxide 22.2 (21.0-32.0) mmol/L Anion Gap 17.8 BUN 6.0 L (7.0-18.0) mg/dL Creatinine 0.55 (0.55-1.02) mg/dL Est GFR ( Amer) >60 (>=60) Est GFR (Non-Af Amer) >60 (>=60) BUN/Creatinine Ratio 10.9 Glucose 106 (74-106) mg/dL Calcium 8.4 L (8.5-10.1) mg/dL Total Bilirubin 0.2 (0.2-1.0) mg/dL AST 23 (15-37) U/L ALT 19 (14-59) U/L Alkaline Phosphatase 51 (46-116) U/L Total Protein 7.2 (6.4-8.2) g/dL Albumin 3.8 (3.4-5.0) g/dL Globulin 3.4 g/dL Albumin/Globulin Ratio 1.1 Lipase 181.0 (73.0-393.0) U/L Discharge Plan Discharge Chief Complaint: Nausea/Vomiting/Diarrhea Clinical Impression: Twin in first trimester, Nausea and vomiting during , Intractable nausea and vomiting, Acute hypokalemia Patient Disposition: Admitted as Observation Time of Disposition Decision: 01:42 Condition: Good Mode of Transportation: Private Vehicle Discharge Date/Time: 01/23/23 02:37
[2023-01-22 22:52] LABS: Basophils Percent Auto 0.2 % (0.2-2.0); Hemoglobin 10.6 g/dL (12.0-16.0); Immature Granulocytes Pct Auto 0.6 % (0.0-0.5); Lymphocytes Absolute Auto 1.6 10^3/uL (1.2-3.8); Lymphocytes Percent Auto 9.5 % (20.5-60.0); Mean Corpuscular HGB Conc 33.1 g/dL (29.9-35.2); Mean Corpuscular Volume 84.7 fL (81.0-99.0); Mean Platelet Volume 10.8 fL (9.5-13.5); Monocytes Absolute Auto 0.6 10^3/uL (0.3-0.8); Monocytes Percent Auto 3.6 % (1.7-12.0); Neutrophils Percent Auto 86.1 % (43.0-75.0); Platelet Count 335 10^3/uL (150-450); Red Blood Count 3.78 10^6/uL (4.20-5.40); Red Cell Distribution Width 13.4 % (11.0-15.0); White Blood Count 16.2 10^3/uL (4.0-11.0)
[2023-01-22] MEDS: ONDANSETRON PF 4 MG/2 ML VIAL IV (23:05)
[2023-01-22] MEDS: FAMOTIDINE/PF 20 MG/2 ML VIAL IV (23:06)
[2023-01-22] MEDS: PROMETHAZINE HCL 25 MG in 0.9 % SODIUM CHLORIDE 50 ML 204 MG IV (23:06)
[2023-01-22 23:10] LABS: Alanine Aminotransferase 19 U/L (14-59); Albumin Globulin Ratio 1.1; Albumin Level 3.8 g/dL (3.4-5.0); Alkaline Phosphatase 51 U/L (46-116); Anion Gap 17.8; Aspartate Amino Transferase 23 U/L (15-37); BUN Creatinine Ratio 10.9; Bilirubin Total 0.2 mg/dL (0.2-1.0); Calcium 8.4 mg/dL (8.5-10.1); Carbon Dioxide 22.2 mmol/L (21.0-32.0); Chloride 103 mmol/L (98-107); Estimated GFR (African America >60 (>=60); Estimated GFR (Non-African Ame >60 (>=60); Globulin 3.4 g/dL; Glucose 106 mg/dL (74-106); Sodium 140 mmol/L (136-145); Total Protein 7.2 g/dL (6.4-8.2)
[2023-01-22] MEDS: 0.9 % SODIUM CHLORIDE 1,000 ML 1000 ML IV (23:26)
[2023-01-23] VITALS (13 sets, daily range): BP systolic 107–122; BP diastolic 64–75; PULSE 65–105; RESP 16; TEMP 36.7–36.9; O2SAT 100; BMI 20.9
[2023-01-23] MEDS: lidocaine HCL 15 ML, MAG HYDROX/ALUMINUM HYD/SIMETH 30 ML, HYOSCYAMINE SULFATE 0.25 MG PO (00:48)
[2023-01-23] MEDS: POTASSIUM BICARBONATE/CIT 25 MEQ TABLET EFF 50 MEQ PO (01:45)
--- NOTE | 2023-01-23 03:28 | P.PN_ITS ---
Progress Note: Subjective Subjective Interval history: The patient is a 22-year-old female, 11 weeks gestation with twins, who was just discharged yesterday after being treated for hyperemesis gravidarum. Zofran pump was ordered at discharge however it still not available. She went home and within an hour, she started having intractable vomiting as well as dry heaving. She had decreased oral intake. She tried to keep Jell-O down but could not. She denies any sick contacts or any new medications. She presented back to the ED and she was given IV fluids, Zofran, Pepcid, GI cocktail without any relief. She is noted to have a potassium down to 3. She is being readmitted for further evaluation. Exam Narrative Exam Narrative: General : Alert and oriented x3 HEENT : Extraocular movements intact, pupils equal round and reactive to light and accommodation Neck: Supple, no JVD Chest: Clear to auscultation bilaterally, no wheezes Heart: Regular rate and rhythm, S1 and S2 heard Abdomen: Soft nontender nondistended. Extremities: No clubbing cyanosis or edema Neurologically: Moving all 4 extremities Skin: No rashes Constitutional Vital Signs, click to edit/add: Last Vital Signs Temp 98.4 F 01/23/23 02:43 Pulse 79 01/23/23 02:43 Resp 16 01/23/23 02:43 BP 122/75 H 01/23/23 02:43 Pulse Ox 100 01/23/23 02:43 O2 Del Method Room Air 01/23/23 02:43 Progress Note: Objective Labs Labs: Short CBC 01/22/23 Range/Units 22:42 WBC 16.2 H (4.0-11.0) 10^3/uL Hgb 10.6 L (12.0-16.0) g/dL Hct 32.0 L (36.0-48.0) % Plt Count 335 (150-450) 10^3/uL BMP 01/22/23 22:42 Sodium 140 Potassium 3.0 L Chloride 103 Carbon Dioxide 22.2 BUN 6.0 L Creatinine 0.55 Glucose 106 Calcium 8.4 L Liver Function 01/22/23 Range/Units 22:42 Total Bilirubin 0.2 (0.2-1.0) mg/dL AST 23 (15-37) U/L ALT 19 (14-59) U/L Alkaline Phosphatase 51 (46-116) U/L Albumin 3.8 (3.4-5.0) g/dL Progress Note: A&P Assessment and Plan (1) Twin in first trimester: (2) Hyperemesis gravidarum before end of 22 week gestation with dehydration: Plan The patient is a 22-year-old female with above medical problems, presenting with recurrent hyperemesis gravidarum. Hyperemesis gravidarum -Provide supportive care -IV fluids -Reglan, Zofran, Phenergan as needed -IV PPI -GI cocktail Hypokalemia -Secondary to the above -Placed on telemetry -Add potassium in IV fluids DVT Prophylaxis - SCDs Medication review -Medication reconciliation form completed Goals of care -Full code Communications -Discussed with the emergency room physician -Discussed with the bedside nurse -Patient updated of plan of care, all questions answered to their satisfaction Disposition -Home when medically stable - awaiting zofran pump to be available Telemedicine clause -As the provider of this telehealth evaluation, requested by the patient's evaluating physician, I attest that I introduced myself to the patient, provided my credentials and determined that telemedicine via a real-time, two-way interactive audio and video platform is an appropriate and effective means of providing this service. -I reviewed the patient's chart and had a discussion with the member of the patient's treatment team. -The patient and I mutually agreed with continuation of this evaluation via telemedicine. The patient consented for the telemedicine evaluation. -This virtual encounter was taken place from [place], [place]. The encounter was approximately 35 minutes. The nurse was present during the entire time of the encounter and was able to remove the stethoscope and appropriate directions. The patient was evaluated at [facility] Telemedicine Attestation Telemedicine Attestation I conducted this encounter from [place], [place] via secure live, [id number] video conference with the patient, located at [facility] with nurse. Prior to the interview, the risks and benefits of telemedicine were discussed with the patient and verbal consent was obtained.
[2023-01-23] MEDS: POTASSIUM CHLORIDE-0.45% NACL 1,000 ML 100 MEQ IV (04:00)
[2023-01-23] MEDS: FAMOTIDINE/PF 20 MG/2 ML VIAL IV (04:00)
[2023-01-23] MEDS: METOCLOPRAMIDE HCL 10 MG/2 ML VIAL IVP ×3 (08:47→21:08)
--- NOTE | 2023-01-23 09:34 | CM.NOTE ---
Rounding with Dr. Joy. Pt. quick readmission due to n/v. Dr. Joy discussing with patient in detail regarding first trimester and n/v. No anticipated needs upon discharge.
[2023-01-23] MEDS: ONDANSETRON PF 4 MG/2 ML VIAL IV (09:44)
--- NOTE | 2023-01-23 11:06 | PM.HP ---
H&P: HPI History of Present Illness Chief complaint: Intractable nausea and vomiting Narrative: 22 y o female, currently in first trimester of her was discharged from the hospital and came back last night with similar presentation. Experiencing intractable nausea/vomiting, unable to keep anything down and was admitted again last night for dehydration and to control her symptoms. She was retching and throwing up clear gastric fluid when I went in to assess her this morning. Original plan was to get Zofran pump arranged for her but that could not be set up due to logistical issues. LUQ pain - chronic, persistent, sharp. No association with food and no change in bowel habits. Review of Systems ROS Status of ROS 10 or more systems reviewed and unremarkable except as noted in history and below PFSH PFSH Medical History Surgical History Family History Father Family history of COPD (chronic obstructive pulmonary disease) Grandmother Family history of COPD (chronic obstructive pulmonary disease) Family history of cancer Sister Family history of diabetes mellitus Social History Within the past year, how often did you have a drink containing alcohol: never Within the past year, how often did you have six or more drinks on one occasion: never Score interpretation: A score less than 3 is consistent with normal alcohol consumption. 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 Known occupational exposures/hazards: No Highest level of school completed/degree received: 11th grade Do you want help with school or training: No Are you now , , , , never or living with a partner: living with partner In a typical week, how many times do you talk on the telephone with family, friends, or neighbors: 3 or more times per week How often do you get together with friends or relatives: 3 or more times per week How often do you attend uatsdin or pentecostal services: never Do you belong to any clubs or organizations such as uatsdin groups unions, fraternal or athletic groups, or school groups: no Total score: 2 Score interpretation: A score of greater than or equal to 2 indicates the lowest level of social isolation. Little interest or pleasure in doing things: nearly every day Feeling down, depressed, or hopeless: not at all Feel stressed/tense/nervous/anxious/difficulty sleeping: not at all Due to disability, difficulty making decisions: No Do you think of yourself as: straight/heterosexual Gender Identity: female Meds Home Medications and Allergies Home Medications Medication Instructions Recorded Confirmed Type metoclopramide HCl 10 mg tablet 10 mg PO Q6H PRN nausea and 12/27/22 01/23/23 Rx (Reglan) vomiting #12 tabs citalopram 40 mg tablet 40 mg PO DAILY 01/21/23 01/23/23 History hydroxyzine HCl 25 mg tablet 25 mg PO DAILY 01/21/23 01/23/23 History lamotrigine 25 mg tablet 25 mg PO QPM 01/21/23 01/23/23 History magnesium oxide 400 mg (241.3 mg 400 mg PO DAILY 01/21/23 01/23/23 History magnesium) tablet monwnqdd-tcp-Qa-FA 1 mg 1 tab PO DAILY 01/21/23 01/23/23 History tablet promethazine 12.5 mg tablet 12.5 mg PO Q6H PRN nausea and 01/22/23 Rx vomiting #30 tabs ondansetron 4 mg disintegrating mg 01/23/23 History tablet promethazine 25 mg rectal 25 mg [place] Q6H PRN nausea and 01/23/23 Rx suppository vomiting #12 ea tizanidine 4 mg tablet mg 01/23/23 History Allergies Allergy/AdvReac Type Severity Reaction Status Date / Time No Known Drug Allergies Allergy Verified 12/27/22 16:03 Exam Constitutional Vital Signs, click to edit/add: Last Vital Signs Temp 98.4 F 01/23/23 02:43 Pulse 85 01/23/23 10:06 Resp 16 01/23/23 02:43 BP 122/75 H 01/23/23 02:43 Pulse Ox 100 01/23/23 02:43 O2 Del Method Room Air 01/23/23 02:43 Documenting provider has reviewed patient's vital signs: yes General appearance: cooperative and comfortable Other: Appears tired and unwell from throwing up HENMT Common normals: normocephalic and head/scalp atraumatic Eye Common normals: conjunctivae normal and no scleral icterus Respiratory Common normals: normal respiratory effort, no use of accessory muscles and clear to auscultation bilaterally GI Common normals: Normal to inspection, nondistended, normoactive bowel sounds present, soft to palpation, non-tender and no hepatosplenomegaly Extremity Common normals: normal to inspection and full ROM Neuro Common normals: CN's II-XII intact bilaterally, moves all extremities, no focal motor deficits and no sensory deficits noted Psych Common normals: mental status grossly normal, denies hallucinations, denies homicidal ideation and denies suicidal ideation Results Labs Labs: Short CBC 01/22/23 Range/Units 22:42 WBC 16.2 H (4.0-11.0) 10^3/uL Hgb 10.6 L (12.0-16.0) g/dL Hct 32.0 L (36.0-48.0) % Plt Count 335 (150-450) 10^3/uL BMP 01/22/23 22:42 Sodium 140 Potassium 3.0 L Chloride 103 Carbon Dioxide 22.2 BUN 6.0 L Creatinine 0.55 Glucose 106 Calcium 8.4 L Liver Function 01/22/23 Range/Units 22:42 Total Bilirubin 0.2 (0.2-1.0) mg/dL AST 23 (15-37) U/L ALT 19 (14-59) U/L Alkaline Phosphatase 51 (46-116) U/L Albumin 3.8 (3.4-5.0) g/dL Assessment and Plan Assessment and Plan (1) Hyperemesis gravidarum before end of 22 week gestation with dehydration: Assessment and Plan: Returned with intractable nausea and vomiting resulting in dehydration. C/w IV fluids. On zofran IV q6 as needed. Added reglan 10 TID scheduled dose. Promethazine IV if zofran does not help Added oral B6. IV B6 is not in the formulary. Doxylamine also is not in the formulary. Increased hydroxyzine to TID scheduled dosing. (2) Intractable nausea and vomiting: Assessment and Plan: Intractable nausea/vomiting. Unable to take PO diet. C/w IV fluids. On zofran IV q6 as needed. Added reglan 10 TID scheduled dose. Promethazine IV if zofran does not help Added oral B6. IV B6 is not in the formulary. Doxylamine also is not in the formulary. Increased hydroxyzine to TID scheduled dosing. (3) Leukocytosis: Assessment and Plan: Likely reactive due to /dehydration. No source of infection identified. (4) Acute hypokalemia: Assessment and Plan: due to N/V IV potassium (5) Twin in first trimester: Assessment and Plan: First trimerster, first , with twins Following Dr Quintana Discussed smoking cig and marijuana use while and potential adverse effects on her current . (6) Bipolar 2 disorder: Assessment and Plan: Stable. On Lamotrigine and Citalopram (7) Chronic abdominal pain: Assessment and Plan: LUQ pain, chronic. Was better with Elavil. Suspect functional dyspepsia. Ambrosio consult Surgery for their input/recs
[2023-01-23] MEDS: 0.9 % SODIUM CHLORIDE 1,000 ML 125 ML IV (11:33)
[2023-01-23] MEDS: PANTOPRAZOLE SODIUM 40 MG VIAL IV ×2 (11:33→21:08)
[2023-01-23] MEDS: HYDROXYZINE PAMOATE 25 MG CAPSULE PO ×2 (13:57→21:08)
[2023-01-23] MEDS: MULTIVIT INFUSN,ADULT 4,VIT K 10 ML in 0.9 % SODIUM CHLORIDE 1,000 ML 125 ML IV (15:46)
--- NOTE | 2023-01-23 16:38 | P.OBCN_ITS ---
OB - CN: HPI Data of Consult Patient: known to practice within the last 3 years Consult date: 01/23/23 Requesting Physician: Shaikh Benita MD Primary Care Provider: Shan Moya MD Consult Narrative Reason for consult: other (hyperemesis gravidarium, twin gestation) cc:: CC: Shaikh Benita MD History of Present Dating criteria: LMP confirmed by 1st trimester US care: good care Ultrasounds: normal 1st trimester US complications: hyperemesis Medical complications: none Review of Systems ROS Status of ROS 10 or more systems reviewed and unremarkable except as noted in history and below PFSH PFSH Medical History Surgical History Family History Father Family history of COPD (chronic obstructive pulmonary disease) Grandmother Family history of COPD (chronic obstructive pulmonary disease) Family history of cancer Sister Family history of diabetes mellitus Social History Within the past year, how often did you have a drink containing alcohol: never Within the past year, how often did you have six or more drinks on one occasion: never Score interpretation: A score less than 3 is consistent with normal alcohol consumption. 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 Known occupational exposures/hazards: No Highest level of school completed/degree received: 11th grade Do you want help with school or training: No Are you now , , , , never or living with a partner: living with partner In a typical week, how many times do you talk on the telephone with family, friends, or neighbors: 3 or more times per week How often do you get together with friends or relatives: 3 or more times per we ek How often do you attend yazidi or mandaen services: never Do you belong to any clubs or organizations such as yazidi groups unions, [employer] or athletic groups, or school groups: no Total score: 2 Score interpretation: A score of greater than or equal to 2 indicates the lowest level of social isolation. Little interest or pleasure in doing things: nearly every day Feeling down, depressed, or hopeless: not at all Feel stressed/tense/nervous/anxious/difficulty sleeping: not at all Due to disability, difficulty making decisions: No Do you think of yourself as: straight/heterosexual Gender Identity: female Meds Home Medications and Allergies Home Medications Medication Instructions Recorded Confirmed Type metoclopramide HCl 10 mg tablet 10 mg PO Q6H PRN nausea and 12/27/22 01/23/23 Rx (Reglan) vomiting #12 tabs citalopram 40 mg tablet 40 mg PO DAILY 01/21/23 01/23/23 History hydroxyzine HCl 25 mg tablet 25 mg PO DAILY 01/21/23 01/23/23 History lamotrigine 25 mg tablet 25 mg PO QPM 01/21/23 01/23/23 History magnesium oxide 400 mg (241.3 mg 400 mg PO DAILY 01/21/23 01/23/23 History magnesium) tablet zilpbgzz-dwp-Sa-FA 1 mg 1 tab PO DAILY 01/21/23 01/23/23 History tablet promethazine 12.5 mg tablet 12.5 mg PO Q6H PRN nausea and 01/22/23 Rx vomiting #30 tabs ondansetron 4 mg disintegrating mg 01/23/23 History tablet promethazine 25 mg rectal 25 mg [place] Q6H PRN nausea and 01/23/23 Rx suppository vomiting #12 ea tizanidine 4 mg tablet mg 01/23/23 History Allergies Allergy/AdvReac Type Severity Reaction Status Date / Time No Known Drug Allergies Allergy Verified 12/27/22 16:03 Exam Constitutional Vital Signs, click to edit/add: Last Vital Signs Temp 98.0 F 01/23/23 14:00 Pulse 73 01/23/23 15:52 Resp 16 01/23/23 14:00 BP 107/64 01/23/23 14:00 Pulse Ox 100 01/23/23 14:00 O2 Del Method Room Air 01/23/23 14:00 Documenting provider has reviewed patient's vital signs: yes Common normals: no apparent distress Respiratory Common normals: normal respiratory effort and clear to auscultation bilaterally Cardio Common normals: regular rate and regular rhythm GI Common normals: Normal to inspection, nondistended, normoactive bowel sounds present Extremity Common normals: no clubbing, cyanosis or edema and no calf tenderness Results Labs Labs: Short CBC 01/22/23 Range/Units 22:42 WBC 16.2 H (4.0-11.0) 10^3/uL Hgb 10.6 L (12.0-16.0) g/dL Hct 32.0 L (36.0-48.0) % Plt Count 335 (150-450) 10^3/uL BMP 01/22/23 22:42 Sodium 140 Potassium 3.0 L Chloride 103 Carbon Dioxide 22.2 BUN 6.0 L Creatinine 0.55 Glucose 106 Calcium 8.4 L Liver Function 01/22/23 Range/Units 22:42 Total Bilirubin 0.2 (0.2-1.0) mg/dL AST 23 (15-37) U/L ALT 19 (14-59) U/L Alkaline Phosphatase 51 (46-116) U/L Albumin 3.8 (3.4-5.0) g/dL OB - A/P Assessment and Plan (1) Hyperemesis gravidarum before end of 22 week gestation with dehydration: Assessment and Plan: cont iv antiemetics, add mvi to everythird bag, labs reviewed, start zofran pump tomorrow (2) Intractable nausea and vomiting: (3) Leukocytosis: (4) Acute hypokalemia: (5) Twin in first trimester: (6) Bipolar 2 disorder: (7) Chronic abdominal pain: Plan see above
[2023-01-23] MEDS: LAMOTRIGINE 25 MG TABLET PO (21:08)
[2023-01-24] VITALS (16 sets, daily range): BP systolic 102–115; BP diastolic 62–69; PULSE 75–120; RESP 16–18; TEMP 36.5–37; O2SAT 98–100
[2023-01-24] MEDS: 0.9 % SODIUM CHLORIDE 1,000 ML 125 ML IV ×3 (03:13→19:25)
[2023-01-24 04:37] LABS: Basophils Percent Auto 0.4 % (0.2-2.0); Eosinophils Percent Auto 0.4 % (0.9-7.0); Hematocrit 28.8 % (36.0-48.0); Hemoglobin 9.5 g/dL (12.0-16.0); Immature Granulocytes Abs Auto 0.05 10^3/uL (0.00-0.03); Immature Granulocytes Pct Auto 0.4 % (0.0-0.5); Lymphocytes Absolute Auto 2.2 10^3/uL (1.2-3.8); Lymphocytes Percent Auto 19.7 % (20.5-60.0); Mean Corpuscular Hemoglobin 28.4 pg (26.7-34.0); Mean Platelet Volume 11.1 fL (9.5-13.5); Monocytes Absolute Auto 0.7 10^3/uL (0.3-0.8); Monocytes Percent Auto 6.2 % (1.7-12.0); Neutrophils Absolute Auto 8.2 10^3/uL (1.4-6.5); Neutrophils Percent Auto 72.9 % (43.0-75.0); Platelet Count 265 10^3/uL (150-450); Red Blood Count 3.35 10^6/uL (4.20-5.40); Red Cell Distribution Width 13.5 % (11.0-15.0); White Blood Count 11.2 10^3/uL (4.0-11.0)
[2023-01-24 05:00] LABS: Calcium 7.7 mg/dL (8.5-10.1); Carbon Dioxide 22.7 mmol/L (21.0-32.0); Chloride 103 mmol/L (98-107); Estimated GFR (African America >60 (>=60); Estimated GFR (Non-African Ame >60 (>=60); Glucose 91 mg/dL (74-106); Sodium 133 mmol/L (136-145)
[2023-01-24 05:04] LABS: Potassium 2.7 mmol/L (3.5-5.1)
[2023-01-24] MEDS: HYDROXYZINE PAMOATE 25 MG CAPSULE PO ×3 (05:28→21:10)
[2023-01-24] MEDS: METOCLOPRAMIDE HCL 10 MG/2 ML VIAL IVP ×3 (05:28→21:10)
--- NOTE | 2023-01-24 09:52 | CM.NOTE ---
Rounding with Dr. Joy. Pt. voices she received a phone call yesterday from the [employer] rep. Pump is supposed to be delivered today and she states she was told by the rep to call them and arrange for someone to come to the house and apply pump. Plan IV and oral potassium then possible d/c this afternoon.
[2023-01-24] MEDS: POTASSIUM CHLORIDE 40 MEQ in 0.9 % SODIUM CHLORIDE 250 ML 67.5 MEQ IV (10:00)
[2023-01-24] MEDS: PANTOPRAZOLE SODIUM 40 MG VIAL IV ×2 (10:01→21:10)
[2023-01-24] MEDS: PYRIDOXINE HCL (VITAMIN B6) 50 MG TABLET PO (10:01)
[2023-01-24] MEDS: MAGNESIUM OXIDE 400 MG TABLET PO (10:02)
[2023-01-24] MEDS: CITALOPRAM HYDROBROMIDE 20 MG TABLET 40 MG PO (10:02)
[2023-01-24 10:14] LABS: Magnesium 1.9 mg/dL (1.8-2.4)
[2023-01-24] MEDS: ONDANSETRON PF 4 MG/2 ML VIAL IV (11:07)
--- NOTE | 2023-01-24 11:14 | PC.NURSE ---
Patient states she is nauseous. PRN Zofran was administered.
--- NOTE | 2023-01-24 14:05 | CM.NOTE ---
Talked with pt about discharge, pt states zofran pump will arrive at house in AM but Sierra from company says pump will not be started until Saturday. Spoke with Sierra regarding Zofran pump and she will be able to place pump tomorrow 9:30 am when the pump arrives. Sierra would like pt discharged with IV in place to start zofran pump in AM. Notified Dr. Quintana for order to keep IV at discharge.
--- NOTE | 2023-01-24 14:18 | P.OBCN_ITS ---
OB - CN: HPI Data of Consult Consult date: 01/23/23 Requesting Physician: Shaikh Benita MD Primary Care Provider: Shan Moya MD Consult Narrative Narrative: pt improving with hydration and iv antiemetics, will dc home tonight, will start zofran pump tomorrow morning, cc:: CC: Shaikh Benita MD History of Present Dating criteria: LMP confirmed by 1st trimester US care: good care Ultrasounds: normal 1st trimester US complications: hyperemesis Review of Systems ROS Status of ROS 10 or more systems reviewed and unremarkable except as noted in history and below PFSH PFS Medical History Surgical History Family History Father Family history of COPD (chronic obstructive pulmonary disease) Grandmother Family history of COPD (chronic obstructive pulmonary disease) Family history of cancer Sister Family history of diabetes mellitus Social History Within the past year, how often did you have a drink containing alcohol: never Within the past year, how often did you have six or more drinks on one occasion: never Score interpretation: A score less than 3 is consistent with normal alcohol consumption. 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 Known occupational exposures/hazards: No Highest level of school completed/degree received: 11th grade Do you want help with school or training: No Are you now , , , , never or living with a partner: living with partner In a typical week, how many times do you talk on the telephone with family, friends, or neighbors: 3 or more times per week How often do you get together with friends or relatives: 3 or more times per week How often do you attend roman catholic or church services: never Do you belong to any clubs or organizations such as roman catholic groups unions, fraternal or athletic groups, or school groups: no Total score: 2 Score interpretation: A score of greater than or equal to 2 indicates the lowest level of social isolation. Little interest or pleasure in doing things: nearly every day Feeling down, depressed, or hopeless: not at all Feel stressed/tense/nervous/anxious/difficulty sleeping: not at all Due to disability, difficulty making decisions: No Do you think of yourself as: straight/heterosexual Gender Identity: female Meds Home Medications and Allergies Home Medications Medication Instructions Recorded Confirmed Type metoclopramide HCl 10 mg tablet 10 mg PO Q6H PRN nausea and 12/27/22 01/23/23 Rx (Reglan) vomiting #12 tabs citalopram 40 mg tablet 40 mg PO DAILY 01/21/23 01/23/23 History hydroxyzine HCl 25 mg tablet 25 mg PO DAILY 01/21/23 01/23/23 History lamotrigine 25 mg tablet 25 mg PO QPM 01/21/23 01/23/23 History magnesium oxide 400 mg (241.3 mg 400 mg PO DAILY 01/21/23 01/23/23 History magnesium) tablet vuiciwnp-abw-Rw-FA 1 mg 1 tab PO DAILY 01/21/23 01/23/23 History tablet promethazine 12.5 mg tablet 12.5 mg PO Q6H PRN nausea and 01/22/23 Rx vomiting #30 tabs ondansetron 4 mg disintegrating mg 01/23/23 History tablet promethazine 25 mg rectal 25 mg [place] Q6H PRN nausea and 01/23/23 Rx suppository vomiting #12 ea tizanidine 4 mg tablet mg 01/23/23 History Allergies Allergy/AdvReac Type Severity Reaction Status Date / Time No Known Drug Allergies Allergy Verified 12/27/22 16:03 Exam Constitutional Vital Signs, click to edit/add: Last Vital Signs Temp 97.9 F 01/24/23 05:35 Pulse 97 H 01/24/23 14:04 Resp 16 01/24/23 08:00 BP 102/69 01/24/23 05:35 Pulse Ox 98 01/24/23 05:35 O2 Del Method Room Air 01/24/23 05:35 Documenting provider has reviewed patient's vital signs: yes Common normals: no apparent distress Respiratory Common normals: normal respiratory effort and clear to auscultation bilaterally Cardio Common normals: regular rate and regular rhythm GI Common normals: Normal to inspection, nondistended, normoactive bowel sounds pr esent Extremity Common normals: no clubbing, cyanosis or edema and no calf tenderness Results Labs Labs: Short CBC 01/24/23 Range/Units 04:10 WBC 11.2 H (4.0-11.0) 10^3/uL Hgb 9.5 L (12.0-16.0) g/dL Hct 28.8 L (36.0-48.0) % Plt Count 265 (150-450) 10^3/uL BMP 01/24/23 04:10 Sodium 133 L Potassium 2.7 L* Chloride 103 Carbon Dioxide 22.7 BUN 4.0 L Creatinine 0.50 L Glucose 91 Calcium 7.7 L OB - A/P Assessment and Plan (1) Hyperemesis gravidarum before end of 22 week gestation with dehydration: Assessment and Plan: improving, zofran pump in am, dc home, cont oral meds, cont iv hydration as outpatient (2) Intractable nausea and vomiting: (3) Leukocytosis: (4) Acute hypokalemia: (5) Twin in first trimester: (6) Bipolar 2 disorder: (7) Chronic abdominal pain:
[2023-01-24 14:43] LABS: BUN Creatinine Ratio 4.8; Calcium 7.7 mg/dL (8.5-10.1); Carbon Dioxide 23.3 mmol/L (21.0-32.0); Chloride 106 mmol/L (98-107); Estimated GFR (African America >60 (>=60); Estimated GFR (Non-African Ame >60 (>=60); Glucose 80 mg/dL (74-106); Potassium 3.3 mmol/L (3.5-5.1); Sodium 138 mmol/L (136-145)
--- NOTE | 2023-01-24 15:39 | P.DS_ITS ---
DS: Providers Provider Date of admission: 01/23/23 02:40 Primary care physician: Shan Moya MD Consults: 01/23/23 11:15 Consult to General Surgeon Routine Consulting Provider: Mayito Warren 01/23/23 11:16 Consult to OBGYN Routine Consulting Provider: Cecil Quintana Reason For Exam: Discharging clinician: Shaikh Benita Anticipated date of discharge: 01/24/23 DS: Diagnosis Discharge Diagnosis (1) Hyperemesis gravidarum before end of 22 week gestation with dehydration: Assessment and plan: Improved now with addition of B6 and increased dose of hydroxyzine. Patinet to have Zofran ppump for it. D/w OBGYN and will be delivered today to her house. (2) Intractable nausea and vomiting: Assessment and plan: Improved/resolved. Zofran pump as outpatient (3) Leukocytosis: Assessment and plan: Improved Likely reactive (4) Acute hypokalemia: Assessment and plan: Improved. Will need PO oral potassium (5) Twin in first trimester: Assessment and plan: Following OBGYN. Discussed smoking/marijuana use while (6) Bipolar 2 disorder: Assessment and plan: Stable mood. C/w home meds (7) Chronic abdominal pain: Assessment and plan: Chronic - unchanged. DS: Summary Hospital Course Hospital Course: Admitted for intractable nausea and vomiting. Received IV hydration, IV anti emetics with improvement in her symptoms. Tolerated oral diet today w.o any complaints. Patient will get Zofran pump today for her intractable N/V. Awaiting OBGYN to see the patient. Time spent discussing smoking cessation with patient: 3 to 10 minutes Status at Discharge Functional status at discharge: independent ambulation Overall status at discharge: patient is back to baseline Time Spent with Patient Time attestation: Total time spent providing and/or coordinating discharge services: Time spent: greater than 30 minutes Exam Constitutional Vital Signs, click to edit/add: Last Vital Signs Temp 97.7 F 01/24/23 14:00 Pulse 97 H 01/24/23 14:04 Resp 18 01/24/23 14:00 BP 115/66 01/24/23 14:00 Pulse Ox 100 01/24/23 14:00 O2 Del Method Room Air 01/24/23 14:00 Documenting provider has reviewed patient's vital signs: yes General appearance: cooperative and comfortable HENMT Common normals: normocephalic and head/scalp atraumatic Eye Common normals: conjunctivae normal and no scleral icterus Respiratory Common normals: normal respiratory effort, no use of accessory muscles and clear to auscultation bilaterally GI Common normals: Normal to inspection, nondistended, normoactive bowel sounds present, soft to palpation, non-tender and no hepatosplenomegaly Extremity Common normals: normal to inspection and full ROM Neuro Common normals: CN's II-XII intact bilaterally, moves all extremities, no focal motor deficits and no sensory deficits noted Psych Common normals: mental status grossly normal, denies hallucinations, denies homicidal ideation and denies suicidal ideation DS: Data Data Completed and Pending Labs on day of discharge: Labs from last 24 hours 01/24/23 01/24/23 14:09 04:10 WBC 11.2 H RBC 3.35 L Hgb 9.5 L Hct 28.8 L MCV 86.0 MCH 28.4 MCHC 33.0 RDW 13.5 Plt Count 265 MPV 11.1 Neut % (Auto) 72.9 Lymph % (Auto) 19.7 L Stephenson % (Auto) 6.2 Eos % (Auto) 0.4 L Baso % (Auto) 0.4 Neut # (Auto) 8.2 H Lymph # (Auto) 2.2 Stephenson # (Auto) 0.7 Eos # (Auto) 0.0 Baso # (Auto) 0.0 Abs Immat Gran (auto) 0.05 H Imm/Tot Granulo (auto) 0.4 Sodium 138 133 L Potassium 3.3 L 2.7 L* Chloride 106 103 Carbon Dioxide 23.3 22.7 Anion Gap 12.0 10.0 BUN 2.0 L 4.0 L Creatinine 0.42 L 0.50 L Est GFR ( Amer) >60 >60 Est GFR (Non-Af Amer) >60 >60 BUN/Creatinine Ratio 4.8 8.0 Glucose 80 91 Calcium 7.7 L 7.7 L Magnesium 1.9 Discharge Plan Discharge Disposition: Home, Self-Care Condition: Good Discharge Medications: New promethazine 25 mg suppository 25 mg [place] Q6H PRN (Reason: nausea and vomiting) Qty: 12 0RF Continued citalopram 40 mg tablet 40 mg PO DAILY lamotrigine 25 mg tablet 25 mg PO QPM magnesium oxide 400 mg (241.3 mg magnesium) tablet 400 mg PO DAILY hydroxyzine HCl 25 mg tablet 25 mg PO DAILY cofvxcky-dah-In-FA 1 mg tablet 1 tab PO DAILY promethazine 12.5 mg tablet 12.5 mg PO Q6H PRN (Reason: nausea and vomiting) Qty: 30 0RF Rx Instructions: 3 doses during day; last dose no later than 4 hr before bedtime tizanidine 4 mg tablet ondansetron 4 mg tablet,disintegrating metoclopramide HCl [Reglan] 10 mg tablet 10 mg PO Q6H PRN (Reason: nausea and vomiting) Qty: 12 0RF Forms: Portal Instructions
[2023-01-24] MEDS: LAMOTRIGINE 25 MG TABLET PO (21:10)
--- NOTE | 2023-01-29 14:46 | CM.DCFOLLOWU ---
Person spoke with: Shanon How are you feeling? Much better How is your pain? No pain Did you understand your discharge instructions? Yes Do you have any questions about your discharge instructions? No Were you given any prescriptions at discharge? Yes Were you able to get your prescriptions filled? Yes Do you understand how to take your medications as ordered? Yes Do you have any questions about your follow up appointment and do you plan to keep your follow up appointment? No questions and yes I will keep appt Is there anything else that you would like to discuss? No Questions/Comments/Concerns/Other:
== END 2023-01-24 22:26 | disposition home or self-care (01) ==
LOC: ER 01-23 01:44 → MS 01-23 02:42
PROVIDERS: Admitting Provider Internal Medicine; Emergency Provider Emergency Medicine; PCP Family Medicine; Visit Provider Internal Medicine
DX: O21.0 Mild hyperemesis gravidarum (principal); O26.891 Other specified pregnancy related conditions, first trimester; D72.829 Elevated white blood cell count, unspecified; E87.6 Hypokalemia; G89.29 Other chronic pain; R10.12 Left upper quadrant pain; E86.0 Dehydration; O30.001 Twin pregnancy, unspecified number of placenta and unspecified number of amniotic sacs, first trimester; O99.341 Other mental disorders complicating pregnancy, first trimester; F31.81 Bipolar II disorder; O99.321 Drug use complicating pregnancy, first trimester; F12.90 Cannabis use, unspecified, uncomplicated; O99.331 Smoking (tobacco) complicating pregnancy, first trimester; F17.210 Nicotine dependence, cigarettes, uncomplicated; Z3A.11 11 weeks gestation of pregnancy; Z79.899 Other long term (current) drug therapy
CPT/HCPCS: 36415; 80048; 80053; 83690; 83735; 85025; 96361; 96365; 96366; 96367; 96375; 96376; 99285; G0378; J3480; Q3014

== ENCOUNTER 2023-01-28 12:13 | Outpatient (OUT) | payer OTHER, SELFPAY ==
[2023-01-28 13:18] LABS: BOX Test Sent Out Y
[2023-01-28 13:26] LABS: Estimated Average Glucose 97 mg/dL
[2023-01-28 13:37] LABS: Basophils Percent Auto 0.2 % (0.2-2.0); Eosinophils Absolute Auto 0.1 10^3/uL (0.0-0.7); Eosinophils Percent Auto 0.4 % (0.9-7.0); Hematocrit 34.1 % (36.0-48.0); Hemoglobin 11.3 g/dL (12.0-16.0); Immature Granulocytes Pct Auto 0.6 % (0.0-0.5); Lymphocytes Absolute Auto 1.3 10^3/uL (1.2-3.8); Lymphocytes Percent Auto 8.3 % (20.5-60.0); Mean Corpuscular HGB Conc 33.1 g/dL (29.9-35.2); Mean Corpuscular Hemoglobin 28.3 pg (26.7-34.0); Mean Corpuscular Volume 85.3 fL (81.0-99.0); Mean Platelet Volume 11.3 fL (9.5-13.5); Monocytes Absolute Auto 0.4 10^3/uL (0.3-0.8); Monocytes Percent Auto 2.7 % (1.7-12.0); Neutrophils Absolute Auto 14.1 10^3/uL (1.4-6.5); Neutrophils Percent Auto 87.8 % (43.0-75.0); Platelet Count 318 10^3/uL (150-450); Red Cell Distribution Width 13.7 % (11.0-15.0); White Blood Count 16.1 10^3/uL (4.0-11.0)
[2023-01-29 05:07] LABS: HCV Ab Non Reactive (Non Reactive); HIV Ab/p24 Ag Screen Non Reactive (Non Reactive); Rubella Antibodies, IgG <0.90 index (Immune >0.99)
[2023-01-29 06:08] LABS: HBsAg Screen Negative (Negative)
[2023-01-29 12:12] LABS: Rapid Plasma Reagin, Quant Non Reactive (NonRea<1:1)
== END 2023-01-28 12:14 | disposition home or self-care (01) ==
LOC: LAB 12:15
PROVIDERS: PCP Family Medicine; Visit Provider Obstetrics & Gynecology
DX: Z34.80 Encounter for supervision of other normal pregnancy, unspecified trimester (principal)
CPT/HCPCS: 36415; 83036; 84443; 85025; 86592; 86706; 86762; 86803; 86850; 86900; 86901; 87086; 87389

== ENCOUNTER 2023-03-06 11:37 | Outpatient (OUT) | payer OTHER, SELFPAY ==
[2023-03-06 12:05] LABS: Basophils Percent Auto 0.4 % (0.2-2.0); Eosinophils Absolute Auto 0.1 10^3/uL (0.0-0.7); Eosinophils Percent Auto 0.8 % (0.9-7.0); Hematocrit 31.9 % (36.0-48.0); Hemoglobin 10.5 g/dL (12.0-16.0); Immature Granulocytes Abs Auto 0.04 10^3/uL (0.00-0.03); Immature Granulocytes Pct Auto 0.4 % (0.0-0.5); Lymphocytes Absolute Auto 1.6 10^3/uL (1.2-3.8); Lymphocytes Percent Auto 16.4 % (20.5-60.0); Mean Corpuscular HGB Conc 32.9 g/dL (29.9-35.2); Mean Corpuscular Hemoglobin 28.5 pg (26.7-34.0); Mean Corpuscular Volume 86.4 fL (81.0-99.0); Mean Platelet Volume 10.6 fL (9.5-13.5); Monocytes Absolute Auto 0.4 10^3/uL (0.3-0.8); Monocytes Percent Auto 4.2 % (1.7-12.0); Neutrophils Absolute Auto 7.6 10^3/uL (1.4-6.5); Neutrophils Percent Auto 77.8 % (43.0-75.0); Platelet Count 270 10^3/uL (150-450); Red Blood Count 3.69 10^6/uL (4.20-5.40); Red Cell Distribution Width 13.5 % (11.0-15.0); White Blood Count 9.8 10^3/uL (4.0-11.0)
[2023-03-06 13:49] LABS: Creatinine Urine Random 54.22 mg/dL (20.00-300.00); Protein Creatinine Ratio Urine 0.32; Total Protein Urine Random 17.5 mg/dL (<=11.9)
[2023-03-06 14:00] LABS: Free T4 0.87 ng/dL (0.76-1.46)
[2023-03-06 14:09] LABS: Thyroid Stimulating Hormone 1.071 uIU/mL (0.358-3.740)
[2023-03-07 16:09] LABS: Anticardiolipin Ab,IgA,Qn <9 APL U/mL (0-11); Anticardiolipin Ab,IgG,Qn <9 GPL U/mL (0-14); Anticardiolipin Ab,IgM,Qn <9 MPL U/mL (0-12)
[2023-03-08 06:09] LABS: Beta-2 Glycoprotein I Ab, IgA <9 (0-25); Beta-2 Glycoprotein I Ab, IgG <9 (0-20); Beta-2 Glycoprotein I Ab, IgM <9 (0-32)
== END 2023-03-06 11:38 | disposition home or self-care (01) ==
LOC: LAB 11:38
PROVIDERS: PCP Family Medicine
DX: O30.042 Twin pregnancy, dichorionic/diamniotic, second trimester (principal)
CPT/HCPCS: 36415; 82570; 84156; 84439; 84443; 85025; 85613; 86146; 86147

== ENCOUNTER 2023-03-08 12:02 | Outpatient (OUT) | payer OTHER, SELFPAY | END 2023-03-08 12:03 | disposition home or self-care (01) | LOC: LAB 12:02 | PROVIDERS: PCP Family Medicine | DX: O30.042 Twin pregnancy, dichorionic/diamniotic, second trimester (principal); Z3A.00 Weeks of gestation of pregnancy not specified | CPT/HCPCS: 36415; 85613 ==

== ENCOUNTER 2023-03-08 19:04 | Emergency (ER) | payer OTHER, SELFPAY ==
--- NOTE | 2023-03-08 19:25 | US_ITS ---
The [address] [address] Patient Name: LELIA CONNOLLY MRN: [id number] date: 2000 Sex: F Assigned Patient Location: ER Current Patient Location: Accession/Order Number: [id number] Exam Date: 03/08/2023 19:45 Report Date: 03/08/2023 21:10 At the request of: NESTOR PRICE Procedure: US OB placenta Examination:US OB placenta INDICATION:fall with twins h/o placenta tear COMPARISON:01/11/2023 TECHNIQUE:Real-time sonography of the pelvis was performed. FINDINGS:There are 2 live intrauterine gestations. The placenta is posterior in location and is unremarkable based on this ultrasound. Fetus A demonstrates a cephalic presentation with a heartbeat of 151 bpm. Fetus B demonstrates a cephalic presentation with a heartbeat of 153 bpm. US/US OB placenta IMPRESSION: 2 live intrauterine gestations each demonstrating heartbeats. The placenta is posterior in location. No obvious sonographic abnormalities are identified based on this limited ultrasound. Electronically authenticated by: LANA VILLAR Date: 03/08/2023 21:10
[2023-03-08 19:40] VITALS: BP 123/74; PULSE 109; RESP 16; TEMP 36.9; O2SAT 98; BMI 21.9
--- NOTE | 2023-03-08 20:21 | ED_ITS ---
HPI - Fall General Chief Complaint: Fall Stated Complaint: FALL 17WEEKS Time Seen by Provider: 03/08/23 19:19 Source: patient and friend Mode of arrival: walk-in Limitations: no limitations History of Present Illness HPI Narrative: She is one para zero and patient is currently with twins seventeen weeks. She has a known subtle tear with baby a. She tripped accidentally over her dog earlier today and hit her belly. 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 Patient's had no abdominal pain or bleeding at this time she feels good. She has a complex preg gurdeep. Related Data Home Medications Medication Instructions Recorded Confirmed citalopram 40 mg tablet 40 mg PO DAILY 01/21/23 03/08/23 hydroxyzine HCl 25 mg tablet 25 mg PO DAILY 01/21/23 03/08/23 lamotrigine 25 mg tablet 25 mg PO QPM 01/21/23 03/08/23 magnesium oxide 400 mg (241.3 mg 400 mg PO DAILY 01/21/23 03/08/23 magnesium) tablet [id number] 1 mg 1 tab PO DAILY 01/21/23 03/08/23 tablet Previous Rx's Medication Instructions Recorded metoclopramide HCl 10 mg tablet 10 mg PO Q6H PRN nausea and 12/27/22 (Reglan) vomiting #12 tabs promethazine 12.5 mg tablet 12.5 mg PO Q6H PRN nausea and 01/22/23 vomiting #30 tabs promethazine 25 mg rectal 25 mg AR Q6H PRN nausea and 01/23/23 suppository vomiting #12 ea Allergies Allergy/AdvReac Type Severity Reaction Status Date / Time No Known Drug Allergies Allergy Verified 12/27/22 16:03 Review of Systems ROS Narrative All Systems are negative except as noted/marked.All systems reviewed and otherwise negative PFSH PFSH Medical History Surgical History Family History Father Family history of COPD (chronic obstructive pulmonary disease) Grandmother Family history of COPD (chronic obstructive pulmonary disease) Family history of cancer Sister Family history of diabetes mellitus Social History Within the past year, how often did you have a drink containing alcohol: never Within the past year, how often did you have six or more drinks on one occasion: never Score interpretation: A score less than 3 is consistent with normal alcohol consumption. 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 Known occupational exposures/hazards: No Highest level of school completed/degree received: 11th grade Do you want help with school or training: No Are you now , , , , never or living with a partner: living with partner In a typical week, how many times do you talk on the telephone with family, friends, or neighbors: 3 or more times per week How often do you get together with friends or relatives: 3 or more times per week How often do you attend holiness or orthodoxy services: never Do you belong to any clubs or organizations such as holiness groups unions, fraternal or athletic groups, or school groups: no Total score: 2 Score interpretation: A score of greater than or equal to 2 indicates the lowest level of social isolation. Little interest or pleasure in doing things: nearly every day Feeling down, depressed, or hopeless: not at all Feel stressed/tense/nervous/anxious/difficulty sleeping: not at all Due to disability, difficulty making decisions: No Do you think of yourself as: straight/heterosexual Gender Identity: female Exam Narrative Exam Narrative: Patient is a All Systems are negative except as noted/marked.All systems reviewed and otherwise negative General: The patient appears well and in no apparent distress. Patient is resting comfortably on cart. Skin: Warm, dry, no pallor noted. There is no rash noted. Head: Normocephalic, atraumatic Eye: Normal conjunctiva, no drainage, EOMI. PERRL Ears, Nose, Mouth, and Throat: oral mucosa is moist. Nares patent. Mouth without vesicles. Ear canals patent. Tm's without Erythema Cardiovascular: Regular Rate and Rhythm Respiratory: Patient is in no distress, no accessory muscle use, lungs are clear to auscultation, no wheezing, rales or rhonchi Back: non-tender, no CVA tenderness bilaterally to percussion. GI: Gravid abdomen, no bruising or ecchymosis. Normal bowel sounds, no te nderness to palpation, no masses appreciated. No rebound, guarding, or rigidity noted. Musculoskeletal: The patient has no evidence of calf tenderness, no pitting edema, symmetrical pulses noted bilaterally Neurological: A&O x4, normal speech Psychiatric: Cooperative Constitutional Vital Signs, click to edit/add: Last Vital Signs Temp 98.4 F 03/08/23 19:40 Pulse 109 H 03/08/23 19:40 Resp 16 03/08/23 19:40 BP 123/74 03/08/23 19:40 Pulse Ox 98 03/08/23 19:40 O2 Del Method Room Air 03/08/23 19:40 Course Vital Signs Vital signs: Vital Signs Temperature 98.4 F 03/08/23 19:40 Pulse Rate 109 H 03/08/23 19:40 Respiratory Rate 16 03/08/23 19:40 Blood Pressure 123/74 03/08/23 19:40 Pulse Oximetry 98 03/08/23 19:40 Oxygen Delivery Method Room Air 03/08/23 19:40 Temperature 98.4 F 03/08/23 19:40 Pulse Rate 109 H 03/08/23 19:40 Respiratory Rate 16 03/08/23 19:40 Blood Pressure 123/74 03/08/23 19:40 Pulse Oximetry 98 03/08/23 19:40 Oxygen Delivery Method Room Air 03/08/23 19:40 MDM - Fall Medical Records Attestation: I reviewed the patient's medical records. Medical records narrative: She presented with a accidental fall. She is currently with twins. She has a complex with a known placental tear. She actually tripped over her dog prior to arrival today. Semi-[employer] C[employer]TER OPERATOR HELPER for evaluation. Patient looks well no acute distress. Today Shows No Decreased Air Hematoma or Bleeding. Patient Will Be Able to Be Discharged Home She'll Follow-Up with [facility] As Well As [employer]ICE [employer] C[employer]TER OPERATOR HELPER As Scheduled Discharge Plan Discharge Chief Complaint: Fall Clinical Impression: Fall Patient Disposition: Home, Self-Care Time of Disposition Decision: 20:19 Condition: Good Prescriptions / Home Meds: No Action citalopram 40 mg tablet 40 mg PO DAILY lamotrigine 25 mg tablet 25 mg PO QPM Hold Instructions: Order Change magnesium oxide 400 mg (241.3 mg magnesium) tablet 400 mg PO DAILY hydroxyzine HCl 25 mg tablet 25 mg PO DAILY [id number] 1 mg tablet 1 tab PO DAILY promethazine 12.5 mg tablet 12.5 mg PO Q6H PRN (Reason: nausea and vomiting) Qty: 30 0RF Rx Instructions: 3 doses during day; last dose no later than 4 hr before bedtime promethazine 25 mg suppository 25 mg AR Q6H PRN (Reason: nausea and vomiting) Qty: 12 0RF metoclopramide HCl [Reglan] 10 mg tablet 10 mg PO Q6H PRN (Reason: nausea and vomiting) Qty: 12 0RF Instructions: Abdominal Pain (ED) Stand Alone Forms: Portal Instructions Referrals: Cecil Quintana DO [Physician] - 1 week (as scheduled) Shan Moya MD [Primary Care Provider] - 1 week Discharge Date/Time: 03/08/23 20:31
== END 2023-03-08 20:31 | disposition home or self-care (01) ==
PROVIDERS: Emergency Provider Emergency Medicine; PCP Family Medicine
DX: Z04.3 Encounter for examination and observation following other accident (principal); O30.042 Twin pregnancy, dichorionic/diamniotic, second trimester; Z3A.17 17 weeks gestation of pregnancy; Z87.891 Personal history of nicotine dependence
CPT/HCPCS: 36415; 76815; 85613; 99284

== ENCOUNTER 2023-03-18 11:08 | Outpatient (OUT) | payer OTHER, SELFPAY ==
[2023-03-18 11:45] LABS: Basophils Percent Auto 0.3 % (0.2-2.0); Eosinophils Absolute Auto 0.1 10^3/uL (0.0-0.7); Eosinophils Percent Auto 0.8 % (0.9-7.0); Hematocrit 32.7 % (36.0-48.0); Hemoglobin 10.7 g/dL (12.0-16.0); Immature Granulocytes Abs Auto 0.09 10^3/uL (0.00-0.03); Immature Granulocytes Pct Auto 0.8 % (0.0-0.5); Lymphocytes Absolute Auto 1.7 10^3/uL (1.2-3.8); Lymphocytes Percent Auto 14.2 % (20.5-60.0); Mean Corpuscular HGB Conc 32.7 g/dL (29.9-35.2); Mean Corpuscular Hemoglobin 28.8 pg (26.7-34.0); Mean Corpuscular Volume 88.1 fL (81.0-99.0); Mean Platelet Volume 10.8 fL (9.5-13.5); Monocytes Absolute Auto 0.6 10^3/uL (0.3-0.8); Monocytes Percent Auto 5.1 % (1.7-12.0); Neutrophils Absolute Auto 9.3 10^3/uL (1.4-6.5); Neutrophils Percent Auto 78.8 % (43.0-75.0); Platelet Count 290 10^3/uL (150-450); Red Blood Count 3.71 10^6/uL (4.20-5.40); Red Cell Distribution Width 13.5 % (11.0-15.0); White Blood Count 11.8 10^3/uL (4.0-11.0)
[2023-03-18 12:48] LABS: Alanine Aminotransferase 29 U/L (14-59); Albumin Globulin Ratio 0.8; Albumin Level 3.1 g/dL (3.4-5.0); Alkaline Phosphatase 71 U/L (46-116); Aspartate Amino Transferase 17 U/L (15-37); BUN Creatinine Ratio 8.7; Bilirubin Total 0.3 mg/dL (0.2-1.0); Calcium 8.4 mg/dL (8.5-10.1); Carbon Dioxide 24.9 mmol/L (21.0-32.0); Chloride 102 mmol/L (98-107); Estimated GFR (African America >60 (>=60); Estimated GFR (Non-African Ame >60 (>=60); Free T4 0.83 ng/dL (0.76-1.46); Globulin 3.7 g/dL; Glucose 69 mg/dL (74-106); Potassium 3.9 mmol/L (3.5-5.1); Sodium 137 mmol/L (136-145); Thyroid Stimulating Hormone 1.231 uIU/mL (0.358-3.740); Total Protein 6.8 g/dL (6.4-8.2)
== END 2023-03-18 11:09 | disposition home or self-care (01) ==
LOC: LAB 11:10
PROVIDERS: PCP Family Medicine
DX: O30.042 Twin pregnancy, dichorionic/diamniotic, second trimester (principal); Z3A.00 Weeks of gestation of pregnancy not specified
CPT/HCPCS: 36415; 80053; 82105; 84439; 84443; 85025; 85613

== ENCOUNTER 2023-03-18 11:13 | Outpatient (OUT) | payer OTHER, SELFPAY ==
[2023-03-21 00:07] LABS: AFP Value 142.2 ng/mL (.); Gestat. Age Based On As provided (.); Maternal Age At EDD 24.5 yr (.); OSBR Risk 1 IN See interpretation. (.); Results Report (.)
== END 2023-03-18 11:14 | disposition home or self-care (01) ==
LOC: LAB 11:14
PROVIDERS: PCP Family Medicine; Visit Provider Obstetrics & Gynecology
DX: Z34.92 Encounter for supervision of normal pregnancy, unspecified, second trimester (principal)
CPT/HCPCS: 36415; 82105

== ENCOUNTER 2023-05-27 09:59 | Outpatient (OUT) | payer OTHER, SELFPAY ==
[2023-05-27 11:24] LABS: Basophils Percent Auto 0.3 % (0.2-2.0); Eosinophils Absolute Auto 0.1 10^3/uL (0.0-0.7); Eosinophils Percent Auto 0.8 % (0.9-7.0); Hematocrit 29.1 % (36.0-48.0); Hemoglobin 9.4 g/dL (12.0-16.0); Immature Granulocytes Abs Auto 0.22 10^3/uL (0.00-0.03); Immature Granulocytes Pct Auto 1.7 % (0.0-0.5); Lymphocytes Absolute Auto 1.5 10^3/uL (1.2-3.8); Lymphocytes Percent Auto 11.6 % (20.5-60.0); Mean Corpuscular HGB Conc 32.3 g/dL (29.9-35.2); Mean Corpuscular Hemoglobin 27.6 pg (26.7-34.0); Mean Corpuscular Volume 85.3 fL (81.0-99.0); Monocytes Absolute Auto 0.6 10^3/uL (0.3-0.8); Monocytes Percent Auto 4.7 % (1.7-12.0); Neutrophils Absolute Auto 10.7 10^3/uL (1.4-6.5); Neutrophils Percent Auto 80.9 % (43.0-75.0); Platelet Count 249 10^3/uL (150-450); Red Blood Count 3.41 10^6/uL (4.20-5.40); Red Cell Distribution Width 13.5 % (11.0-15.0); White Blood Count 13.2 10^3/uL (4.0-11.0)
[2023-05-27 11:31] LABS: Glucose 1 Hour 137 mg/dL
== END 2023-05-27 10:00 | disposition home or self-care (01) ==
LOC: LAB 10:02
PROVIDERS: PCP Family Medicine; Visit Provider Physician Assistant
DX: Z34.92 Encounter for supervision of normal pregnancy, unspecified, second trimester (principal)
CPT/HCPCS: 36415; 82950; 85025

== ENCOUNTER 2023-06-25 16:30 | Observation (INO) | payer OTHER, SELFPAY ==
[2023-06-25] VITALS (8 sets, daily range): BP systolic 112–117; BP diastolic 53–65; PULSE 115–130; RESP 18; TEMP 36.9–37.7; O2SAT 100
--- NOTE | 2023-06-25 17:24 | US_ITS ---
[address] [address] Patient Name: LELIA CONNOLLY MRN: [id number] date: 2000 Sex: F Assigned Patient Location: [facility] Current Patient Location: [facility] Accession/Order Number: [id number] Exam Date: 06/25/2023 18:25 Report Date: 06/25/2023 20:03 At the request of: EN JOHNSON Procedure: US OB cervical length ULTRASOUND OB CERVICAL LENGTH HISTORY: Twin . Contractions. COMPARISON: None. FINDINGS: There is a twin intrauterine . Twin A heart tones 175 bpm Twin B heart tones 170 bpm. There is minimal amount of fluid within the cervical canal with slight funneling. Both fetuses are in the cephalic presentation. The cervix measures 3.3 cm. US/US OB cervical length IMPRESSION: Minimal fluid within the cervical canal(which measures 3.3 cm) with slight funneling. Twin viable intrauterine . Electronically authenticated by: MILI YAÑEZ Date: 06/25/2023 20:03
[2023-06-25] MEDS: NIFEdipine 10 MG CAPSULE 20 MG PO ×2 (17:35→21:21)
[2023-06-25] MEDS: 0.9 % SODIUM CHLORIDE 1,000 ML 1000 ML IV (17:40)
[2023-06-25] MEDS: 0.9 % SODIUM CHLORIDE 1,000 ML 150 ML IV (18:46)
[2023-06-25] MEDS: BETAMETHASONE ACE/BETAMETHASONE SOD PHOS 30 MG/5 ML 12 MG IM (20:05)
[2023-06-25 21:12] LABS: Bilirubin Urine SMALL (NEGATIVE); Blood Urine NEGATIVE (NEGATIVE); Clarity Urine CLEAR (CLEAR); Color Urine YELLOW (YELLOW); Glucose Urine UA NEGATIVE (NEGATIVE); Ketones Urine >=80 mg/dL (NEGATIVE); Leukocyte Esterase Urine TRACE (NEGATIVE); Nitrite Urine NEGATIVE (NEGATIVE); Protein Urine TRACE mg/dL (NEG/TRACE)
[2023-06-25 21:13] LABS: Urine Microscopic Indicated YES
[2023-06-25] MEDS: ACETAMINOPHEN 500 MG TABLET 1000 MG PO (21:21)
[2023-06-25] MEDS: CITALOPRAM HYDROBROMIDE 20 MG TABLET 40 MG PO (21:21)
[2023-06-25] MEDS: CEFAZOLIN SODIUM/DEXTROSE,ISO 1 GM/50 ML IV.SOLN IV (21:24)
[2023-06-25 21:25] LABS: Basophils Percent Auto 0.2 % (0.2-2.0); Eosinophils Percent Auto 0.1 % (0.9-7.0); Hematocrit 31.5 % (36.0-48.0); Hemoglobin 9.9 g/dL (12.0-16.0); Immature Granulocytes Abs Auto 0.19 10^3/uL (0.00-0.03); Immature Granulocytes Pct Auto 1.3 % (0.0-0.5); Lymphocytes Percent Auto 6.7 % (20.5-60.0); Mean Corpuscular HGB Conc 31.4 g/dL (29.9-35.2); Mean Corpuscular Volume 82.7 fL (81.0-99.0); Mean Platelet Volume 12.7 fL (9.5-13.5); Monocytes Absolute Auto 0.4 10^3/uL (0.3-0.8); Monocytes Percent Auto 2.7 % (1.7-12.0); Neutrophils Absolute Auto 13.5 10^3/uL (1.4-6.5); Platelet Count 244 10^3/uL (150-450); Red Blood Count 3.81 10^6/uL (4.20-5.40); Red Cell Distribution Width 13.9 % (11.0-15.0); White Blood Count 15.1 10^3/uL (4.0-11.0)
[2023-06-25 21:26] LABS: Bacteria Urine TRACE #/HPF (NONE SEEN); Cast Seen? NONE SEEN #/LPF (NONE SEEN); Crystals Seen? None Seen #/HPF (None Seen); Mucus Urine NONE SEEN (NONE SEEN); RBC Urine 0-2 #/HPF (0-2); Squamous Epithelial Cell Urine FEW #/LPF (NONE/RARE); WBC Urine 0-2 #/HPF (NONE SEEN)
[2023-06-25 21:42] LABS: Alanine Aminotransferase 18 U/L (14-59); Albumin Globulin Ratio 0.5; Albumin Level 2.2 g/dL (3.4-5.0); Alkaline Phosphatase 594 U/L (46-116); Anion Gap 15.8; Aspartate Amino Transferase 20 U/L (15-37); BUN Creatinine Ratio 4.5; Bilirubin Total 0.6 mg/dL (0.2-1.0); Carbon Dioxide 18.8 mmol/L (21.0-32.0); Chloride 101 mmol/L (98-107); Estimated GFR (African America >60 (>=60); Estimated GFR (Non-African Ame >60 (>=60); Globulin 4.2 g/dL; Glucose 87 mg/dL (74-106); Potassium 3.6 mmol/L (3.5-5.1); Sodium 132 mmol/L (136-145); Total Protein 6.4 g/dL (6.4-8.2)
[2023-06-25] MEDS: AZITHROMYCIN 500 MG in 0.9 % SODIUM CHLORIDE 250 ML 250 MG IV (22:23)
--- NOTE | 2023-06-26 | US_ITS ---
[address] [address] Patient Name: LELIA CONNOLLY MRN: [id number] date: 2000 Sex: F Assigned Patient Location: [facility] Current Patient Location: [facility] Accession/Order Number: [id number] Exam Date: 06/26/2023 09:08 Report Date: 06/26/2023 21:23 At the request of: EN JOHNSON Procedure: US OB >= 14 wk fetus add gest EXAMINATION: US OB BPP w non-stress, US OB >= 14 wk fetus add gest HISTORY: LGA ; twin COMPARISON: No relevant comparison available. TECHNIQUE: Ultrasound biophysical profile was performed in the radiology department. BREATHING MOVEMENTS: Baby A: 2 BPD: 2 GROSS BODY MOVEMENTS: Baby A: 2 baby B: 2 TONE: Baby A: 2 baby B: 2 QUALITATIVE AMNIOTIC FLUID VOLUME: Baby A: 2 baby B: 2 PRESENTATION: Baby A: Breech baby B: Cephalic HEART RATE: Baby A: 141 bpm baby B: 130 bpm AMNIOTIC FLUID VOLUME: Baby A: Deepest pocket 7.4 cm baby B: Deepest pocket 3.9 cm GESTATIONAL AGE: 32 weeks 6 days CONCLUSION: Total biophysical profile score 1. Normal biophysical profile for baby A and baby B.. Electronically authenticated by: SHIRLEY PATEL Date: 06/26/2023 21:23
[2023-06-26 01:08] VITALS: BP 113/59; PULSE 96; RESP 18; TEMP 37.6
[2023-06-26 01:30] VITALS: BP 113/59
[2023-06-26] MEDS: NIFEdipine 10 MG CAPSULE 20 MG PO ×2 (01:30→05:33)
[2023-06-26] MEDS: 0.9 % SODIUM CHLORIDE 1,000 ML 150 ML IV (02:58)
[2023-06-26 05:29] VITALS: BP 118/60; PULSE 97
[2023-06-26 05:30] VITALS: BP 118/60; PULSE 97; RESP 16; TEMP 36.7
[2023-06-26 05:33] VITALS: BP 118/60
[2023-06-26] MEDS: CEFAZOLIN SODIUM/DEXTROSE,ISO 1 GM/50 ML IV.SOLN IV (05:33)
--- NOTE | 2023-06-26 09:07 | US_ITS ---
[address] [address] Patient Name: LELIA CONNOLLY MRN: [id number] date: 2000 Sex: F Assigned Patient Location: [facility] Current Patient Location: [facility] Accession/Order Number: [id number] Exam Date: 06/26/2023 09:08 Report Date: 06/26/2023 21:23 At the request of: EN JOHNSON Procedure: US OB BPP w non-stress EXAMINATION: US OB BPP w non-stress, US OB >= 14 wk fetus add gest HISTORY: LGA ; twin COMPARISON: No relevant comparison available. TECHNIQUE: Ultrasound biophysical profile was performed in the radiology department. BREATHING MOVEMENTS: Baby A: 2 BPD: 2 GROSS BODY MOVEMENTS: Baby A: 2 baby B: 2 TONE: Baby A: 2 baby B: 2 QUALITATIVE AMNIOTIC FLUID VOLUME: Baby A: 2 baby B: 2 PRESENTATION: Baby A: Breech baby B: Cephalic HEART RATE: Baby A: 141 bpm baby B: 130 bpm AMNIOTIC FLUID VOLUME: Baby A: Deepest pocket 7.4 cm baby B: Deepest pocket 3.9 cm GESTATIONAL AGE: 32 weeks 6 days CONCLUSION: Total biophysical profile score 1. Normal biophysical profile for baby A and baby B.. Electronically authenticated by: SHIRLEY PATEL Date: 06/26/2023 21:23
--- NOTE | 2023-06-26 09:16 | PM.OBLDTN ---
OB - Triage/Final Diagnosis Visit Information Date of evaluation: 06/26/23 Reason for evaluation: threatened labor Comments/Additional reasons for admission: maternal dehydration, flu like symptoms, ctxns secondary to dehydration Evaluation Cervical dilation (cm): 0 Cervical effacement (%): 0 Laboratory results: Laboratory Tests 06/25/23 06/25/23 16:40 21:20 WBC 15.1 H RBC 3.81 L Hgb 9.9 L Hct 31.5 L MCV 82.7 MCH 26.0 L MCHC 31.4 RDW 13.9 Plt Count 244 MPV 12.7 Neut % (Auto) 89.0 H Lymph % (Auto) 6.7 L Butler % (Auto) 2.7 Eos % (Auto) 0.1 L Baso % (Auto) 0.2 Neut # (Auto) 13.5 H Lymph # (Auto) 1.0 L Butler # (Auto) 0.4 Eos # (Auto) 0.0 Baso # (Auto) 0.0 Abs Immat Gran (auto) 0.19 H Imm/Tot Granulo (auto) 1.3 H Sodium 132 L Potassium 3.6 Chloride 101 Carbon Dioxide 18.8 L Anion Gap 15.8 BUN 3.0 L Creatinine 0.66 Est GFR ( Amer) >60 Est GFR (Non-Af Amer) >60 BUN/Creatinine Ratio 4.5 Glucose 87 Calcium 9.0 Total Bilirubin 0.6 AST 20 ALT 18 Alkaline Phosphatase 594 H Total Protein 6.4 Albumin 2.2 L Globulin 4.2 Albumin/Globulin Ratio 0.5 Urine Color Yellow Urine Clarity Clear Urine pH 6.0 Ur Specific [place] 1.020 Urine Protein Trace Urine Glucose (UA) Negative Urine Ketones >=80 A Urine Occult Blood Negative Urine Nitrite Negative Urine Bilirubin Small A Urine Urobilinogen 1.0 Ur Leukocyte Esterase Trace A Urine RBC 0-2 Urine WBC 0-2 A Ur Squamous Epith Cells Few A Urine Crystals None seen Urine Bacteria Trace A Urine Casts None seen Urine Mucus None seen Vital signs: Vital Signs - 24 hr 06/25/23 16:56 06/25/23 17:35 06/25/23 18:49 Temperature 98.4 F Pulse Rate 130 H Respiratory Rate Blood Pressure 117/65 117/65 Blood Pressure [Right Arm] Pulse Oximetry Oxygen Delivery Method 06/25/23 19:53 06/25/23 19:55 06/25/23 19:59 Temperature 99.7 F Pulse Rate 115 H 115 H Respiratory Rate 18 Blood Pressure 112/53 Blood Pressure [Right Arm] 112/53 Pulse Oximetry 100 Oxygen Delivery Method Room Air Room Air 06/25/23 21:21 06/25/23 22:34 06/26/23 01:08 Temperature 100 F Pulse Rate 96 H Respiratory Rate Blood Pressure 112/53 113/59 Blood Pressure [Right Arm] Pulse Oximetry Oxygen Delivery Method 06/26/23 01:08 06/26/23 01:08 06/26/23 01:30 Temperature 99.6 F Pulse Rate 96 H Respiratory Rate 18 18 Blood Pressure 113/59 Blood Pressure [Right Arm] 113/59 Pulse Oximetry Oxygen Delivery Method Room Air Room Air 06/26/23 05:29 06/26/23 05:30 06/26/23 05:30 Temperature 98.0 F Pulse Rate 97 H 97 H Respiratory Rate 16 Blood Pressure 118/60 Blood Pressure [Right Arm] 118/60 Pulse Oximetry Oxygen Delivery Method Room Air Room Air 06/26/23 05:33 Temperature Pulse Rate Respiratory Rate Blood Pressure 118/60 Blood Pressure [Right Arm] Pulse Oximetry Oxygen Delivery Method heart rate baseline: 130 care home variability: Moderate (6-25 bpm) monitor accelerations: Present monitor decelerations: None A heart rate baseline: 130 intermediate card tender variability: Moderate (6-25 bpm) monitor accelerations: Present monitor decelerations: None Infant B heart rate baseline: 135 intermediate card tender variability: Moderate (6-25 bpm) monitor accelerations: Present monitor decelerations: None Final Diagnosis (1) contractions: Status: Acute (2) Dehydration: Status: Acute (3) Twin gestation in third trimester: Status: Acute Problem details: iup at 32 6/7wks-bpp obtained, cl is 3.3, procardia and celestone given, iv fluids, labs reviewed, [facility], precautions given, return for 2nd dose of celestone
[2023-06-26 10:18] VITALS: BP 116/58; PULSE 81
--- NOTE | 2023-06-26 11:26 | PC.NURSE ---
1000: US at bedside for BPP and patient denies pain or other complaints. 1100: Discharge instructions reviewed and IV discontinued intact and bandaid to site. Color pink, skin warm and dry, resp. easy and unlabored, lungs clear and abdomen soft to palpation. Babies reported as active. Denies leaking and/or bleeding. 110 Discharged ambulatory undelivered with father to private vehicle.
== END 2023-06-26 11:10 | disposition home or self-care (01) ==
LOC: FBC 16:35
PROVIDERS: Admitting Provider Obstetrics & Gynecology; PCP Family Medicine; Visit Provider Obstetrics & Gynecology
DX: O47.03 False labor before 37 completed weeks of gestation, third trimester (principal); O30.003 Twin pregnancy, unspecified number of placenta and unspecified number of amniotic sacs, third trimester; O26.893 Other specified pregnancy related conditions, third trimester; E86.0 Dehydration; Z3A.32 32 weeks gestation of pregnancy
CPT/HCPCS: 36415; 59025; 76810; 76817; 76818; 80053; 81001; 85025; 96365; 96367; 96372; 96376; G0378; G0379; J0456; J0702

== ENCOUNTER 2023-06-26 19:57 | Outpatient (OUT) | payer OTHER, SELFPAY ==
--- OUTSIDE RECORDS SUMMARY | 2023-06-26 20:01 | XMS_ITS | CCD ---
Author Name Unknown Address [address] [address] [place] [address] Organization [facility] Care Team Providers Care Gear Shaper Set Up Operator Name Role Phone NO FAMILY, PHYSICIAN Primary Care Provider UnaNela Roberts Primary Care Provider SUKI CONDE Primary Care Physician [phone] AMAYA PROVIDER, SUKI Referring Unavailab le NILL, Mayito Thapa Attending Unavailable AMAYA PROVIDER, SUKI Referring Unavailab le NILCourtney, Mayito Thapa Attending Unavailable AMAYA, DR SUKI Kong Primary Care Unavailable SAMREEN SCHWARZ Admitting Unavailable SAMREEN SCHWARZ Attending Unavailable SAMREEN SCHWARZ Consulting Unavailable ITKINMURALI Consulting Unavailable AMAYA, DR SUKI Kong Primary Care Unavailable NILCourtney ., DR WEINER Admitting Unavailable NILCourtney ., DR WEINER Attending Unavailable AMAYA, DR SUKI Kong Primary Care Unavailable EUSEBIO ., MARYURI Admitting Unavailable EUSEBIO ., MARYURI Attending Unavailable DEE ., NESTOR Consulting Unavailable EUSEBIO ., MARYURI Consulting Unavailable RASTEGAR, MISTI Consulting Unavailable EUSEBIO ., MARYURI Admitting Unavailable EUSEBIO ., MARYURI Attending Unavailable JORGE, DR SHIRLEY Thapa Consulting Unavailable AMAYA, DR SUKI Kong Primary Care Unavailable EUSEBIO ., MARYURI Consulting Unavailable ANGIE, HARMAN Consulting Unavailable ANGIE, HARMAN Admitting Unavailable HARMAN ADAMS Attending Unavailable AMAYA, DR SUKI Kong Primary Care Unavailable ANA COTE Consulting Unavailable AMAYA, DR SUKI Knog Primary Care Unavailable BERTRAND, DR Courtney Thapa Consulting Unavailable BERTRAND, DR Courtney Thapa Admitting Unavailable BERTRAND, DR Courtney Thapa Attending Unavailable AMAYA, DR SUKI Kong Primary Care Unavailable BERTRAND, DR Courtney Thapa Admitting Unavailable BERTRAND, DR Courtney Thapa Attending Unavailable BERTRAND, DR Courtney Thapa Consulting Unavailable ELIZABETH ., DR GATICA Attending Unavailable ELIZABETH ., DR GATICA Admitting Unavailable WEST, DR ANGIE Arce Consulting Unavailable NADERER, DR SUKI Kong Primary Care Unavailable ELIZABETH ., DR GATICA Consulting Unavailable BENEDICT, DR WATSON Consulting Unavailable BENEDICT, DR WATSON Admitting Unavailable BENEDICT, DR WATSON Attending Unavailable NADERER, DR SUKI Kong Primary Care Unavailable ANGIE LO Consulting Unavailable ELIZABETH ., DR GATICA Attending Unavailable ELIZABETH ., DR GATICA Consulting Unavailable ELIZABETH ., DR GATICA Admitting Unavailable NADERER, DR SUKI Kong Primary Care Unavailable ELIZABETH ., DR GATICA Attending Unavailable ELIZABETH ., DR GATICA Consulting Unavailable ELIZABETH ., DR GATICA Admitting Unavailable NADERER, DR SUKI Kong Primary Care Unavailable ELIZABETH ., DR GATICA Attending Unavailable ELIZABETH ., DR GATICA Admitting Unavailable WEST, DR ANGIE Arce Consulting Unavailable NADERER, DR SUKI Kong Primary Care Unavailable ELIZABETH ., DR GATICA Consulting Unavailable NADERER, DR SUKI Kong Primary Care Unavailable DEE ., NESTOR Admitting Unavailable DEE ., NESTOR Attending Unavailable DEE ., NESTOR Consulting Unavailable WANDER, JUANJOSE Admitting Unavailable WANDER, JUANJOSE Attending Unavailable WANDER, JUANJOSE Consulting Unavailable NADERER, DR SUKI Kong Primary Care Unavailable NADERER, DR SUKI Kong Primary Care Unavailable DEE ., NESTOR Consulting Unavailable DEE ., NESTOR Admitting Unavailable DEE ., NESTOR Attending Unavailable NADERER, DR SUKI Kong Primary Care Unavailable SAMREEN SCHWARZ Consulting Unavailable SAMREEN SCHWARZ Admitting Unavailable SAMREEN SCHWARZ Attending Unavailable ELIZABETH ., DR GATICA Consulting Unavailable ELIZABETH ., DR GATICA Admitting Unavailable NADERER, DR SUKI Kong Primary Care Unavailable ELIZABETH ., DR GATICA Attending Unavailable ELIZABETH ., DR GATICA Consulting Unavailable ELIZABETH ., DR GATICA Admitting Unavailable NADERER, DR SUKI Kong Primary Care Unavailable ELIZABETH ., DR GATICA Attending Unavailable SHELLY SHABAZZ Consulting Unavailable ANAI CHANG Consulting Unavailable HARMAN ADAMS Admitting Unavailable HARMAN ADAMS Attending Unavailable HARMAN ADAMS Consulting Unavailable NADERER, DR SUKI Kong Primary Care Unavailable ELIZABETH ., DR GATICA Consulting Unavailable ELIZABETH ., DR GATICA Admitting Unavailable ELIZABETH ., DR GATICA Attending Unavailable NADERER, DR SUKI Kong Primary Care Unavailable AMAYA, DR SUKI Kong Referring Unavailable AMAYA, DR SUKI Kong Admitting Unavailable AMAYA, DR SUKI Kong Attending Unavailable TACOMA, DR ANGIE Arce Consulting Unavailable REQUEST, DR FERNANDO LISTED Primary Care Unavaila caitie CONDE, DR SUKI Kong Consulting Unavailable Filippo Larson Unavailable [phone] Unknown, Referring Provider Unavailable Unav ailable Ramakrishna Schwarz Attending Unavailable UNKNOWN, PCP Primary Care Unavailable EN [place] Attending Unavailable NESTOR PRICE Attending Unavailable NESTOR PRICE Attending Unavailable Unavailable Unavailable Unavailable Allergies Allergy Classification Reported Allergen(s) Allergy Type Date of Onset Reaction(s) Facility (1 source) No Known Medication Allergies; Translations: [No Known Medication Allergies] Propensity to adverse reactions (disorder) [facility] Repository Medications Current Medications Medication Drug Class(es) Dates Sig (Normalized) Sig (Original) acetaminophen 300 mg / butalbital 50 mg / caffeine 40 mg oral capsule (1 source) Barbiturate, Central Nervous System Stimulant, Methylxanthine Start: 07-11-2022 take 1 capsule by mouth every four hours Fioricet oral capsule 1 cap(s), Oral, q4hr Headache, Refill(s) 0 Start Date: 07/11/22 Status: Ordered amitriptyline hydrochloride 25 mg oral tablet (2 sources) Tricyclic Antidepressant Start: 07-17-2022 take 1 tablet by mouth once daily at bedtime Elavil 25 mg Tab 25 mg = 1 tab(s), Oral, Once a day (at bedtime), Refills(s) 0 Start Date: 07/17/22 Status: Ordered take 2 tablets by mo uth once daily at bedtime Elavil 25 MG 2 tablets at bedtime Orally Once a day for 30 days Not-Taking citalopram 40 mg oral tablet (5 sources) Serotonin Reuptake Inhibitor Start: 07-11-2022 take 1 tablet by mouth once daily citalopram 40 mg Tab 40 mg = 1 tab(s), Oral, Daily, Refills(s) 0 Start Date: 07/11/22 Status: Ordered CeleXA 40 MG Ora l Tablet Quantity: 0 Refills: 0 Ordered: 28-Mar-2023 DO Active take 0.5 tablet by m outh every twenty-four hours CeleXA 40 MG 0.5 tablet Orally Once a da y Active take 1 tablet by mouth once fabienne y citalopram hydrobromide (CELEXA) 10 mg tablet Take 10 mg by mouth once daily. 0 Active Comment on above: Take 10 mg by mouth once daily. dicyclomine hydrochloride 20 mg oral tablet (2 sources) Anticholinergic Start: 07-11-19 take 1 tablet by mouth four times daily dicyclomine 20 mg Tab 20 mg = 1 tab(s), Oral, QID, Refills(s) 0 Start Date: 07/11/22 Status: Ordered take 1 tablet by mouth three digna es daily Bentyl 20 MG 1 tablet Orally Three times a day Not-Taking hydrOXYzine hydrochloride 25 mg oral tablet (4 sources) Antihistamine Start: 07-11-2022 take 1 tablet by mouth four times daily as needed for anxiety hydrOXYzine hydrochloride 25 mg Tab 25 mg = 1 tab(s), Oral, QID, PRN as needed for anxiety, Refills(s) 0 Start Date: 07/11/22 Status: Ordered Atarax 25 MG TAB S Quantity: 0 Refills: 0 Ordered: 28-Mar-2023 DO Active hydrOXYzine HCl Active lamoTRIgine 25 mg oral tablet (2 sources) Mood Stabilizer, Anti-epileptic Agent Start: 07-11-2022 take 2 tablets by mouth at bedtime lamotrigine 25 mg Tab 50 mg = 2 tab(s), Oral, Bedtime, Refills(s) 0 Start Date: 07/11/22 Status: Ordered LaMICtal 25 MG 1 tablet Orally Not-Taking ondansetron 4 mg oral tablet (3 sources) Serotonin-3 Receptor Antagonist Start: 07-17-2022 Zofran 4 mg Tab Refills(s) 0 Start Date: 07/17/22 Status: Ordered take 1 tablet by jayro once daily Zofran 4 MG 1 tablet Orally Once a day Active End: 07-26-2014 take 1 tablet by mouth every eight hours as needed ondansetron orally disintegrating (ZOFRAN ODT) 4 mg tab(s) ER Go-Pack Take 4 mg by mouth every 8 hours as needed. 0 07/26/2014 Discontinued (Erroneous entry) Comment on above: Take 4 mg by mouth e very 8 hours as needed. pantoprazole 40 mg delayed release oral tablet (2 sources) Proton Pump Inhibitor Start: 3 take 1 tablet by mouth once daily Pantoprazole [address] Tab 40 mg = 1 tab(s), Oral, Daily, Refills(s) 0 Start Date: 07/17/22 Status: Ordered SUMAtriptan 100 mg oral tablet (2 sources) Serotonin-1b and Serotonin-1d Receptor Agonist Start: 3 take 1 tablet by mouth once Imitrex 100 mg Tab 100 mg = 1 tab(s), Oral, Once, Refills(s) 0 Start Date: 07/17/22 Status: Ordered take 1 tablet by jayro th every two hours as needed, then take 1 tablet by mouth twice daily as needed Imitrex 100 MG 1 tablet at least 2 hours between doses as needed Orally Twice a day Not-Taking tiZANidine 4 mg oral tablet (2 sources) Central alpha-2 Adrenergic Agonist Start: 07-17-2022 take 2 mg by mouth at bedtime Zanaflex 4 mg Tab 2 mg = 0.5 tab(s), Oral, Bedtime, Refills(s) 0 Start Date: 07/17/22 Status: Ordered take 1 tablet by jayro th every twenty-four hours Zanaflex 4 MG 1 tablet as needed Orally once a day Not-Taking Completed/Discontinued Medications Medication Drug Class(es) Dates Sig (Normalized) Sig (Original) acetaminophen 500 mg oral tablet (1 source) take 1 tablet by mouth every eight hours as needed acetaminophen (TYLENOL EXTRA STRENGTH) 500 mg tablet Take 500 mg by mouth every 8 hours as needed. 0 Active Comment on above: Take 500 mg by mouth every 8 hours as needed. ketorolac tromethamine 10 mg oral tablet (1 source) Nonsteroidal Anti-inflammatory Drug, Cyclooxygenase Inhibitor Start: 04-12-2014 End: 07-26-2014 take 1 tablet by mouth every six hours as needed ketorolac (TORADOL) 10 mg tablet Take 1 tablet by mouth every 6 hours as needed. 20 tablet 0 04/12/2014 07/26/2014 Discontinued (Erroneous entry) Comment on above: Take 1 tablet by jayro th every 6 hours as needed. Magnesium (2 sources) Magnesium TABS Quantity: 0 Refills: 0 Ordered: 28-Mar-2023 DO Active miSOPROStol 0.2 mg oral tablet (1 source) Prostaglandin E1 Analog End: 07-26-2014 take 1 tablet by mouth four times daily misoprostol (CYTOTEC) 200 mcg tablet Take 200 mcg by mouth four times daily. 0 07/26/2014 Discontinued (Erroneous entry) Comment on above: Take 200 mcg by mout h four times daily. naproxen 375 mg oral tablet (1 source) Nonsteroidal Anti-inflammatory Drug End: 07-26-2014 take 1 tablet by mouth twice daily at mealtime naproxen (NAPROSYN) 375 mg tablet Take 375 mg by mouth twice daily with meals. 0 07/26/2014 Discontinued (Erroneous entry) Comment on above: Take 375 mg by mouth twice daily with meals. NORETHINDRONE AC-ETH ESTRADIOL (, , ORAL) (1 source) End: 07-26-2014 NORETHINDRONE AC-ETH ESTRADIOL (, , ORAL) Take by mouth. 0 07/26/2014 Discontinued (Erroneous entry) Comment on above: Take by mouth. TABS (2 sources) TABS Quantity: 0 Refills: 0 Ordered: 28-Mar-2023 DO Active Protonix PACK (2 sources) Protonix PACK Quantity: 0 Refills: 0 Ordered: 28-Mar-2023 DO Active PSYLLIUM SEED, WITH SUGAR, (METAMUCIL ORAL) (1 source) End: 07-26-2014 take 1 tablet by mouth twice daily as needed PSYLLIUM SEED, WITH SUGAR, (METAMUCIL ORAL) Take 1 tablet by mouth twice daily as needed. 0 07/26/2014 Discontinued (Erroneous entry) Comment on above: Take 1 tablet by jayro th twice daily as needed. Problems Active Problems Problem Classification Problem Date Documented Da te Episodic/Chronic Abdominal pain (18 sources) Right lower quadrant pain; Translations: [Pelvic and perineal pain] Onset: 2 Episodic Anxiety disorders (2 sources) Anxiety; Translations: [Acute anxiety] 07-11-2022 Chronic Endometriosis (1 source) Endometriosis, unspecified; Translations: [ENDOMETRIOSIS UNSPECIFIED] Onset: 3 Chronic Esophageal disorders (2 sources) Gastroesophageal reflux disease with apnea; Translations: [Gastro-esophageal reflux disease without esophagitis] Chronic Headache; including migraine (5 sources) Migraine; Translations: [Migraine, unspecified, not intractable, without status migrainosus] Onset: 2 07-11-2022 Chronic Hemorrhage during ; abruptio placenta; placenta previa (1 source) Other antepartum hemorrhage, second trimester; Translations: [Other antepartum hemorrhage, second trimester] Onset: 3 Episodic Menstrual disorders (2 sources) Excessive and frequent menstruation with irregular cycle; Translations: [Irregular menstruation, unspecified] Onset: 2 Chronic Mood disorders (1 source) Bipolar disorder 07-11-2022 Chronic Nausea and vomiting (7 sources) Nausea with vomiting, unspecified; Translations: [Nausea] Onset: 2 Episodic Other aftercare (1 source) 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; Translations: [OTH CORRECTION CURRENT DRUG THERAPY] Onset: 3 Episodic Other endocrine disorders (1 source) Disorder of endocrine system 07-11-2022 Episodic Other gastrointestinal disorders (1 source) Irritable bowel syndrome; Translations: [Irritable bowel syndrome without diarrhea] Chronic Other gastrointestinal disorders (1 source) Irritable bowel syndrome characterized by constipation; Translations: [Irritable bowel syndrome with constipation] Chronic Other gastrointestinal disorders (1 source) Irritable bowel syndrome with constipation Chronic Other gastrointestinal disorders (4 sources) Constipation, unspecified; Translations: [CONSTIPATION UNSPECIFIED] Onset: 3 Episodic Other gastrointestinal disorders (1 source) Constipation; Translations: [Constipation, unspecified] Episodic Other and delivery including normal (1 source) Twin , dichorionic/diamniotic , second trimester; Translations: [Twin , dichorionic/diamniotic , second trimester] Onset: 3 Episodic Other upper respiratory disease (1 source) Seasonal allergic rhinitis 07-11-2022 Chronic Ovarian cyst (6 sources) Cyst of ovary; Translations: [Corpus luteum cyst of right ovary] Onset: 2 07-11-2022 Episodic Polyhydramnios and other problems of amniotic cavity (1 source) Other specified disorders of amniotic fluid and membranes, second trimester, fetus 1; Translations: [Oth disrd of amniotic fluid and membrns, second tri, fetus 1] Onset: 3 Episodic Residual codes; unclassified (1 source) Insomnia 07-11-2022 Episodic Residual codes; unclassified (1 source) 20 weeks gestation of ; Translations: [20 weeks gestation of ] Onset: 3 Episodic Unclassified (1 source) Body mass index 20-24 - normal 07-17-2022 Unclassified (1 source) CONTACT W/AND (SUSP) EXPOS COVID-19; Translations: [CONTACT W/AND (SUSP) EXPOS COVID-19] Onset: 2 Past or Other Problems Problem Classification Problem Date Documented Da te Episodic/Chronic E Codes: Cut/pierceb (1 source) Contact with other sharp object(s), not elsewhere classified, initial encounter; Translations: [[facility] OB NOT ELSW CLASS INI] Onset: 05-31-2022 Episodic Immunizations and screening for infectious disease (1 source) Encounter for immunization; Translations: [ENCOUNTER FOR IMMUNIZATION] Onset: 05-31-2022 Episodic Open wounds of extremities (5 sources) Puncture wound without foreign body of left hand, initial encounter; Translations: [Puncture wound without foreign body of left index finger without damage to nail, initial encounter] Onset: 05-29-2022 Episodic Other endocrine disorders (4 sources) Endocrine disorder, unspecified; Translations: [ENDOCRINE DISORDER UNSPECIFIED] Onset: 05-07-2022 Episodic Other female genital disorders (1 source) Noninflammatory disorder of ovary, fallopian tube and broad ligament, unspecified; Translations: [[facility] NONINFL D/O OVARY TUBE AND BRD LIG] Onset: 08-14-2022 Episodic Other gastrointestinal disorders (1 source) Peritoneal adhesions (postprocedural) (postinfection); Translations: [PERITONEAL ADHES POSTPROC POSTINF] Onset: 08-14-2022 Episodic Residual codes; unclassified (4 sources) Contact with and (suspected) exposure to potentially hazardous body fluids; Translations: [CONTACT AND EXPOS POTENTL HAZ BDY FLUID] Onset: 06-11-2022 Episodic Spondylosis; intervertebral disc disorders; other back problems (5 sources) Chronic neck pain; Translations: [Cervicalgia] Onset: 01-17-2022 07-11-2022 Episodic Results Test Name Value Interpretation Reference Range Facility Blood Pressure Cuff Sizeon 0 03-28-2023 Fall risk assessment a) No falls within the last year [id number] [address] [place] Work Phone: Tobacco use status CPHS a) Yes M [id number] [address] [place] Work Phone: Blood Pressure Cuff Size Adult [id number] [address] [place] Work Phone: Blood Pressure Cuff Size Yes [id number] [address] [place] Work Phone: No Panel Informationon 03-28 Normal [id number] [address] [place] Work Phone: OB Completed scan + Detailed Anatomyon 03-28-2023 OB Completed scan + Detailed Anatomy Indication ======== Twin , Abnormality Suspected History ====== General History Height 157 cm Height (ft) 5 ft Height (in) 2 in Previous Outcomes 1 Maternal Assessment Height 157 cm Height (ft) 5 ft Height (in) 2 in Weight 59 kg Weight (lb) 130 lb Weight gain 0 kg Weight gain (lb) 0 lb BMI 23.78 kg/m? Physical Exam Initial weight (lb) 130 lb ========= Twin . Number of fetuses: 2 Dating ====== GA by prior assessment 20 w + 0 d ARNALDO by prior assessment: 08/15/2023 Ultrasound examination on: 03/28/2023 GA by U/S based upon: AC, BPD, Femur, HC GA by U/S 19 w + 4 d ARNALDO by U/S: 08/18/2023 GA by U/S based upon (Fetus 2): AC, BPD, Femur, HC GA by U/S (Fetus 2) 19 w + 5 d ARNALDO by U/S (Fetus 2): 08/17/2023 Assigned: based on stated ARNALDO, selected on 03/28/2023 Assigned GA 20 w + 0 d Assigned ARNALDO: 08/15/2023 Growth Overview Exam date GA BPD (mm) HC (mm) AC (mm) FL (mm) HL (mm) EFW (g) 03/28/2023 20w 0d 41.7 6% 163.1 9% 153.1 62% 31.6 36% 29.9 23% 327 47% Growth Overview Exam date GA BPD (mm) HC (mm) AC (mm) FL (mm) HL (mm) EFW (g) 03/28/2023 20w 0d 43.4 17% 167.6 18% 150.8 55% 32.5 47% 29 13% 333 52% Impression ========= Di-Di twin gestation - rr cfDNA - Referred from [place] because of subchorionic hematomas A targeted anatomic survey was performed - Dichorionic/diamnio tic twin gestation is confirmed - biometry of both twins is concordant and consistent with the stated gestational age - Twin A is in breech presentation on maternal right - Twin B is in transverse presentation, superior with the head on maternal right - Detailed anatomic evaluation is normal x 2. 3VV, 3VTV, face and lips were suboptimally visualized on twin B (see below) - The placenta is posterior x 2. Lambda sign still present. Cord insertion is normal x 2 - There is an anterior subchorionic hematoma that measures 5 cm x 1.5 cm x 2.1 cm. A second subchorionic hematoma is posterior and it is larger than the anterior one. The placental circulation is visualized with both color and pulsed Doppler and it is normal. - Doppler of ductus venosus and umbilical artery is normal x 2; The MCA PSV is normal x 2. The cardiac function is normal x 2. - No malformation of either twin was identified on this comprehensive survey within limitations of sonographic evaluation at this gestational age. I informed the patient that today's findings confirm what has previously been seen by Dr. Gonzales in [place]. Twins are doing well, their growth is normal, blood flow is normal as well. There is no anemia x 2. However, the risk of bleeding, abruption, and delivery (approximately 10 % before 24 weeks) is increased when compared to pregnancies without the above placental findings. The estimate of delivery after 24 weeks' gestation is more difficult to estimate because of the combination of multiple and subchorionic hematomas. Today's findings were explained to the patient and all her questions were answered. I spoke to Dr. Gonzales and we agreed on this plan: Ultrasound for Doppler every two weeks. growth every three weeks. I will see again the patient in f/u in 4 weeks Thank you for allowing us to participate in the care of your patient General Evaluation Cardiac activity present. FHR 146 bpm. movements: visualized. Presentation: breech Placenta: Placental site: posterior Umbilical cord: Cord vessels: 3 vessel cord. Insertion site: placental insertion: normal Amniotic fluid: Amount of AF: normal amount. MVP 2.2 cm General Evaluation Cardiac activity present. FHR 149 bpm. movements: visualized. Presentation: Variable, transverse top Placenta: Placental site: posterior Umbilical cord: Cord vessels: 3 vessel cord, normal placental insertion Amniotic fluid: Amount of AF: normal amount. MVP 3.7 cm Biometry Standard BPD 41.7 mm 18w 4d 6% Hadlock OFD 59.6 mm 35% INTERGROWTH-21st HC 163.1 mm 19w 0d 9% Hadlock Cerebellum tr 20.6 mm 20w 1d 55% Colon Nuchal fold 3.9 mm AC 153.1 mm 20w 4d 62% Hadlock Femur 31.6 mm 19w 6d 36% Hadlock Humerus 29.9 mm 23% Chitty HC / AC 1.07 5% Hadlock EFW 327 g 20w 0d 47% Hadlock EFW discordance 1.7 % EFW (lb) 0 lb EFW (oz) 12 oz EFW by: Hadlock ([id number]) Extended Light Rail Operator 5.8 mm CM 3.9 mm 16% Nicolaides Nasal bone 4.7 mm Head / Face / Neck Cephalic index 0.70 <1% Nicolaides Nasal bone: present Extremities / Bony Struc FL / BPD 0.76 93% Hadlock FL / HC 0.19 65% Hadlock FL / AC 0.21 19% Hadlock Other Structures FHR 146 bpm Biometry Standard BPD 43.4 mm 19w 1d 17% Hadlock OFD 61.5 mm 61 (more content not included)... Normal [facility] AMYLASEon 10-28-2022 Amylase [Catalytic activity/Vol] 35 U/L Normal 25-115 [facility] Comment on above: Performed By: #### C NEAL LIPA, NESTOR #### [facility] [address] [place] [address] Dr. Joe Shea CBC AUTO DIFFon 10-28-2022 BASO # 0.1 103/ul Normal 0.0-0.1 [facility] Comment on above: Performed By: #### C NEAL LIPA, NESTOR #### [facility] [address] [place] [address] Dr. Joe Shea Basophils/100 WBC (Bld) 0.4 % Normal 0.2-2.0 [facility] Comment on above: Performed By: #### C NEAL LIPA, NESTOR #### [facility] [address] [place] [address] Dr. Joe Shea EO # 0.1 103/ul Normal 0.0-0.7 [facility] Comment on above: Performed By: #### C NEAL LIPA, NESTOR #### [facility] [address] [place] [address] Dr. Joe Shea Eosinophils/100 WBC (Bld) 0.8 % Critically low 0.9-7. 0 [facility] Comment on above: Performed By: #### C HUGO DE JESUSA NESTOR #### [facility] [address] [place] [address] Dr. Joe Shea Erythrocyte distribution width (RBC) [Ratio] 13.2 % Normal 11.0-15.0 [facility] Comment on above: Performed By: #### C NEAL LIPA, NESTOR #### [facility] [address] [place] [address] Dr. Joe Shea Hematocrit (Bld) [Volume fraction] 37.2 % Normal 36.0-48.0 [facility] Comment on above: Performed By: #### C NEAL LIPA, NESTOR #### [facility] [address] [place] [address] Dr. Joe Shea Hemoglobin (Bld) [Mass/Vol] 12.0 g/dL Normal 12.0-16.0 [facility] Comment on above: Performed By: #### C NEAL LIPA, NESTOR #### [facility] [address] [place] [address] Dr. Joe Shea IG # 0.03 10e3/ul Normal 0.00-0.03 [facility] Comment on above: Performed By: #### C MP, LIPA, NESTOR #### [facility] [address] [place] [address] Dr. Joe Shea IG % 0.2 % Normal 0.0-0.5 [facility] Comment on above: Performed By: #### C MP, LIPA, NESTOR #### [facility] [address] [place] [address] Dr. Joe Shea LYMPH # 1.9 103/ul Normal 1.2-3.8 [facility] Comment on above: Performed By: #### C MP, LIPA, NESTOR #### [facility] [address] [place] [address] Dr. Joe Shea Lymphocytes/100 WBC (Bld) 15.2 % Critically low 20.5-6 0.0 [facility] Comment on above: Performed By: #### C MP, LIPA, NESTOR #### [facility] [facility] [address] [place] [address] Dr. Joe Shea MANUAL DIFF REQ NO Normal [facility] Comment on above: Performed By: #### C MP, LIPA, NESTOR #### [facility] [address] [place] [address] Dr. Joe Shea MCH (RBC) [Entitic mass] 28.4 pg Normal 26.7-34.0 [facility] Comment on above: Performed By: #### C MP, LIPA, NESTOR #### [facility] [address] [place] [address] Dr. Joe Shea MCHC (RBC) [Mass/Vol] 32.3 g/dL Normal 29.9-35.2 [facility] Comment on above: Performed By: #### C MP, LIPA, NESTOR #### [facility] [address] [place] [address] Dr. Joe Shea MCV (RBC) [Entitic vol] 87.9 fL Normal 81.0-99.0 [facility] Comment on above: Performed By: #### C CARLYN DE JESUS, NESTOR #### [facility] [address] [place] [address] Dr. Joe Shea MONO # 0.9 103/ul Critically high 0.3-0.8 [facility] Comment on above: Performed By: #### C HUGO DE JESUSA, NESTOR #### [facility] [address] [place] [address] Dr. Joe Shea Monocytes/100 WBC (Bld) 7.1 % Normal 1.7-12.0 [facility] Comment on above: Performed By: #### C CARLYN DE JESUS, NESTOR #### [facility] [address] [place] [address] Dr. Joe Shea NEUT # 9.5 103/ul Critically high 1.4-6.5 [facility] Comment on above: Performed By: #### C HUGO DE JESUSA, NESTOR #### [facility] [address] [place] [address] Dr. Joe Shea Neutrophils/100 WBC (Bld) 76.3 % Critically high 43.0- 75.0 [facility] Comment on above: Performed By: #### C CARLYN DE JESUS, NESTOR #### [facility] [address] [place] [address] Dr. Joe Shea Platelet mean volume (Bld) [Entitic vol] 10.8 fL Normal 9.5-13.5 [facility] Comment on above: Performed By: #### C HUGO DE JESUSA, NESTOR #### [facility] [address] [place] [address] Dr. Joe Shea PLT 283 103/ul Normal 150-450 [facility] Comment on above: Performed By: #### C CARLYN DE JESUS, NESTOR #### [facility] [address] [place] [address] Dr. Joe Shea RBC 4.23 106/ul Normal 4.20-5.40 [facility] Comment on above: Performed By: #### C HUGO DE JESUSA, NESTOR #### [facility] [address] [place], [place] [address] Dr. Joe Shea WBC 12.5 103/ul Critically high 4.0-11.0 [facility] Comment on above: Performed By: #### C CARLYN DE JESUS AMY #### [facility] [address] [place], [place] [address] ABD/PELV W CONon 10-29-[address] ABD/PELV W CON EXAM: CT ABD/PELV W CON HISTORY: GENERALIZED ABDOMINAL PAIN COMPARISON: 03/10/2022 TECHNIQUE: Axial CT imaging was performed through the abdomen and pelvis with intravenous contrast. Multiplanar reformats were performed. Dose reduction techniques were achieved by using automated exposure control and/or adjustment of mA and/or kV according to patient size and/or use of iterative reconstruction technique. FINDINGS: Lung bases: Lung bases are clear. No pleural effusion. GI upper: Unremarkable. Liver: Normal size and contour. Gallbladder: No significant abnormality. No cholelithiasis. Biliary system: No intra or extrahepatic biliary ductal dilatation. Spleen: Normal size. Pancreas: Unremarkable. Adrenal glands: Normal adrenal glands. Kidneys/ureters: Normal contours. No hydronephrosis. No nephrolithiasis or ureterolithiasis. Vessels: No aneurysm. Lymph Nodes: No lymphadenopathy. Small bowel: No wall thickening or dilatation. Colon: No wall thickening or dilatation. Appendix: No findings of appendicitis. Peritoneal cavity: No pneumoperitoneum. Small pelvic free fluid, physiologic. Lower : The uterus is unremarkable. There is a 2.1 cm corpus luteal cyst in the right ovary. The left ovary is unremarkable. Bones: No acute bony abnormality. Soft tissues: No acute finding. Additional findings: None. IMPRESSION: No acute abnormality. 2.1 cm corpus luteal cyst in the right ovary. If there is any concern, pelvic ultrasound is recommended for better evaluation. Electronically authenticated by: MISTI BREWER Date: 2022-10-28 18:31 Normal [facility] ER URINE PROFILEon 3 Bilirubin Ql (U) Negative Normal NEGATIVE [facility] Comment on above: Performed By: #### L BCLH #### [facility] [address] [address] [address] Joe Shea Clarity (U) CLEAR Normal CLEAR [facility] Comment on above: Performed By: #### L BCLH #### [facility] [address] [place] [address] Dr. Joe Shea Color (U) LT. YELLOW Normal YELLOW [facility] Comment on above: Performed By: #### L BCLH #### [facility] [address] [place] [address] Dr. Joe Shea ERUAHD A micrscopic examination will be performed if indicated. Normal [facility] Comment on above: Performed By: #### L BCLH #### [facility] [address] [place] [address] Dr. Joe Shea Glucose Ql (U) Negative Normal NEGATIVE [facility] Comment on above: Performed By: #### L BCLH #### [facility] [address] [place] [address] Dr. Joe Shea Hemoglobin Ql (U) Negative Normal NEGATIVE [facility] Comment on above: Performed By: #### L BCL #### [facility] [address] [place] [address] Dr. Joe Shea Ketones Ql (U) Negative Normal NEGATIVE [facility] Comment on above: Performed By: #### L BCL #### [facility] [address] [place] [address] Dr. Joe Shea LEUKOCYTES TRACE Abnormal NEGATIVE [facility] Comment on above: Performed By: #### L BCL #### [facility] [address] [place] [address] Dr. Joe Shea Nitrite Ql (U) Negative Normal NEGATIVE [facility] Comment on above: Performed By: #### L BCL #### [facility] [address] [place] [address] Dr. Joe Seha pH (U) 8.0 [pH] Normal 5-9 [facility] Comment on above: Performed By: #### L BCLH #### [facility] [address] [place] [address] Dr. Joe Shea SPEC GRAVITY 1.015 Normal 1.005-<=1.02 5 [facility] Comment on above: Performed By: #### L BCL #### [facility] [address] [place] [address] Dr. oJe Shea UA PROTEIN Negative Normal NEGATIVE/ TRACE [facility] Comment on above: Performed By: #### L BCL #### [facility] [address] [place] [address] Dr. Joe Shea UR MICRO IND INDICATED Normal [facility] Comment on above: Performed By: #### L BCL #### [facility] [address] [place] [address] Dr. Joe Shea Urobilinogen Qn (U) 2.0 {Pascual'U}/dL Abnormal 0.2 - 1. 0 [facility] Comment on above: Performed By: #### L BARRY #### [facility] [address] [place] [address] Dr. Joe Shea LIPASEon 10-28-2022 Lipase [Catalytic activity/Vol] 93.0 U/L Normal 73.0-393.0 [facility] Comment on above: Performed By: #### C MP, LIPA, NESTOR #### [facility] [address] [place] [address] Dr. Joe Shea URon 10-28-2022 , QUAL Negative Normal NEGATIVE [facility] Comment on above: Performed By: #### L BCL #### [facility] [address] [place] [address] Dr. Joe Shea PROF 14(COMP METB)on 023 Albumin [Mass/Vol] 4.1 g/dL Normal 3.4-5.0 [facility] Comment on above: Performed By: #### C MP, LIPA, NESTOR #### [facility] [address] [place] [address] Dr. Joe Shea Albumin/Globulin [Mass ratio] 1.2 {ratio} Normal [facility] Comment on above: Performed By: #### C MP, LIPA, NESTOR #### [facility] [address] [place] [address] Dr. Joe Shea ALP [Catalytic activity/Vol] 60 U/L Normal 46-116 [facility] Comment on above: Performed By: #### C MP, LIPA, NESTOR #### [facility] [address] [address] [address] Joe Shea ALT [Catalytic activity/Vol] 22 U/L Normal 14-59 [facility] Comment on above: Performed By: #### C MP, LIPA, NESTOR #### [facility] [address] [address] [address] Joe Shea Anion gap [Moles/Vol] 10.2 mmol/L Normal [facility] Comment on above: Performed By: #### C MP, LIPA, NESTOR #### [facility] [address] [place] [address] Dr. Joe Shea AST [Catalytic activity/Vol] 14 U/L Critically low 15-37 [facility] Comment on above: Performed By: #### C MP LIPA, NESTOR #### [facility] [address] [place] [address] Dr. Joe Shea Bilirubin [Mass/Vol] 0.5 mg/dL Normal 0.2-1.0 [facility] Comment on above: Performed By: #### C MP LIPA, NESTOR #### [facility] [address] [place] [address] Dr. Joe Shea Calcium [Mass/Vol] 8.9 mg/dL Normal 8.5-10.1 [facility] Comment on above: Performed By: #### C MP, LIPA, NESTOR #### [facility] [address] [place] [address] Dr. Joe Shea Chloride [Moles/Vol] 103 mmol/L Normal 98-107 [facility] Comment on above: Performed By: #### C MP, LIPA, NESTOR #### [facility] [address] [place] [address] Dr. Joe Shea CO2 [Moles/Vol] 28.1 mmol/L Normal 21.0-32.0 [facility] Comment on above: Performed By: #### C MP, LIPA, NESTOR #### [facility] [address] [place] [address] Dr. Joe Shea Creatinine [Mass/Vol] 0.77 mg/dL Normal 0.55-1.02 [facility] Comment on above: Performed By: #### C CARLYN DE JESUS NETSOR #### [facility] [address] [address] [address] Joe Shea EGFR-AF SPANISH >60 Normal >=60 [facility] Comment on above: Performed By: #### C CARLYN DE JESUS, NESTOR #### [facility] [address] [place] [address] [address] Joe Shea EGFR-NON AF SPANISH >60 Normal >=60 [facility] Comment on above: Performed By: #### C CARLYN DE JESUS, NESTOR #### [facility] [address] [place] [address] Dr. oJe Shea Globulin (S) [Mass/Vol] 3.5 g/dL Normal [facility] Comment on above: Performed By: #### C CARLYN DE JESUS, NESTOR #### [facility] [address] [place] [address] Dr. Joe Shea Glucose [Mass/Vol] 85 mg/dL Normal 74-106 [facility] Comment on above: Performed By: #### C CARLYN DE JESUS, NESTOR #### [facility] [address] [place] [address] Dr. Joe Shea Potassium [Moles/Vol] 3.3 mmol/L Critically low 3.5-5.1 [facility] Comment on above: Performed By: #### C CARLYN DE JESUS, NESTOR #### [facility] [address] [place] [address] Dr. Joe Shea Protein [Mass/Vol] 7.6 g/dL Normal 6.4-8.2 [facility] Comment on above: Performed By: #### C CARLYN DE JESUS, NESTOR #### [facility] [address] [place] [address] Dr. Joe Shea Sodium [Moles/Vol] 138 mmol/L Normal 136-145 [facility] Comment on above: Performed By: #### C CARLYN DE JESUS, NESTOR #### [facility] [address] [place] [address] Dr. Joe Shea Urea nitrogen [Mass/Vol] 6.0 mg/dL Critically low 7.0-18. 0 [facility] Comment on above: Performed By: #### C CARLYN DE JESUS AMY #### [facility] [address] [place] [address] Dr. Joe Shea Urea nitrogen/Creatinine [Mass ratio] 7.8 mg/mg Normal [facility] Comment on above: Performed By: #### C CARLYN DE JESUS AMY #### [facility] [address] [place] [address] Dr. Joe Shea URINE MICROSCOPIC ONLYon BACTERIA NONE SEEN Normal NONE SEEN [facility] Comment on above: Performed By: #### L BCL #### [facility] [address] [place] [address] Dr. Joe Shea Bacteria identified Cx Nom (U) NOT INDICATED Normal [facility] Comment on above: Performed By: #### L BCL #### [facility] [address] [place] [address] Dr. Joe Shea CAST NONE SEEN Normal NONE SEEN [facility] Comment on above: Performed By: #### L BCL #### [facility] [address] [place] [address] Dr. Joe hSea Crystals LM Nom (Urine sed) NONE SEEN Normal NONE SEEN [facility] Comment on above: Performed By: #### L BCL #### [facility] [address] [place] [address] Dr. Joe Shea Epithelial cells LM Ql (Urine sed) FEW Abnormal NONE SEEN /RARE [facility] Comment on above: Performed By: #### L BCL #### [facility] [address] [place] [address] Dr. Joe Shea MUCOUS NONE SEEN Normal NONE SEEN [facility] Comment on above: Performed By: #### L BCLH #### [facility] [address] [place] [address] Dr. Joe Shea RBC NONE SEEN Abnormal 0-2 [facility] Comment on above: Performed By: #### L BARRY #### [facility] [address] [place] [address] [address] Joe Shea WBC 0-2 Abnormal NONE SEEN [facility] Comment on above: Performed By: #### L BARRY #### [facility] [address] [address] [address] Joe Shea LACTOFERRIN FECAL QUANTon Lactoferrin, Fecal, Quant. <1.00 Normal 0.00-7.24 [facility] Comment on above: Result Comment: Re sults verified by repeat testing . Baseline (normal) 0.00 - 7.24 Elevated >7.24 . An elevated result is indicative of the presence of fecal lactoferrin, a marker of intestinal inflammation. A normal result does not exclude the presence of intestinal inflammation. The test can be used as an in vitro diagnostic aid to distinguish patients with active inflammatory bowel disease (IBD) from those with non-inflammatory irritable bowel syndrome (IBS). Performed By: #### D TRESA #### [facility] [address] [place] [address] Dr. Joe Shea CALPROTECTIN, FECALon 2022 Calprotectin, Fecal 31 ug/g Normal 0-120 [facility] Comment on above: Result Comment: Conc entration Interpretation Follow-Up <16 - 50 ug/g Normal None >50 -120 ug/g Borderline Re-evaluate in 4-6 weeks >120 ug/g Abnormal Repeat as clinically indicated Performed By: #### C MP, LIPA, NESTOR #### [facility] [address] [place] [address] Dr. Joe Shea BOWEL DISORDERS EVALUATION R ULE-OUT CASCon 09-25-2022 Antigliadin 8 units Normal 0-19 [facility] Comment on above: Result Comment: Nega tive 0 - 19 Weak Positive 20 - 30 Moderate to Strong Positive >30 . Performed By: #### C BC #### [facility] [address] [place] [address] Dr. Joe Shea Atypical pANCA Negative Normal Negative [facility] Comment on above: Performed By: #### C BC #### [facility] [address] [place] [address] [address] Joe Shea Note: [place] continues Normal [facility] Comment on above: Performed By: #### C BC #### [facility] [address] [place] [address] Dr. Joe Shea Note: Comment Normal [facility] Comment on above: Result Comment: Sugg estive of irritable bowel syndrome (IBS). Careful evaluation of the patient's history, physical examination, and application of Navjot III diagnostic criteria may help to rule in or rule out the diagnosis of IBS. Subsequent testing for Fecal Calprotectin (258294) may be recommended. If IBD is strongly suspected, subsequent testing with the Crohn's Disease Prognostic Profile (713955) that includes anti- glycan antibodies AMCA, ALCA, ACCA, and Zulema may aid in differential diagnosis. Performed By: #### C BC #### [facility] [address] [place] [address] Dr. Joe Shea Saccharomyces Cer. IgG <20.0 Normal 0.0-24.9 [facility] Comment on above: Result Comment: Nega tive <20.0 Equivocal 20.1 - 24.9 Positive >or= 25.0 Performed By: #### C BC #### [facility] [address] [place] [address] Dr. Joe Shea tTG/DGP SCR Negative Normal Negative [facility] Comment on above: Result Comment: Ef fective September 21, 2022 this profile will be made non-orderable due to non-availability of reagents for tTG/DGP Combo. No replacement number is available at this time. For further information, please contact your local [employer] Tax Lawyer. Performed By: #### C BC #### [facility] [address] [place] [address] Dr. Joe Shea CBC AUTO DIFFon 09-19-2022 BASO # 0.1 103/ul Normal 0.0-0.1 [facility] Comment on above: Performed By: #### D HEASUL #### [facility] [address] [place] [address] Dr. Joe Shea Basophils/100 WBC (Bld) 0.9 % Normal 0.2-2.0 [facility] Comment on above: Performed By: #### Althea GTZ #### [facility] [address] [place] [address] Dr. Joe Shea EO # 0.2 103/ul Normal 0.0-0.7 [facility] Comment on above: Performed By: #### Althea GTZ #### [facility] [address] [place] [address] Dr. Joe Shea Eosinophils/100 WBC (Bld) 2.4 % Normal 0.9-7.0 [facility] Comment on above: Performed By: ###Asiya GTZ #### [facility] [address] [place] [address] Dr. Joe Shea Erythrocyte distribution width (RBC) [Ratio] 13.2 % Normal 11.0-15.0 [facility] Comment on above: Performed By: ###Asiya GTZ #### [facility] [address] [place] [address] Dr. Joe Shea Hematocrit (Bld) [Volume fraction] 38.3 % Normal 36.0-48.0 [facility] Comment on above: Performed By: ###Asiya GTZ #### [facility] [address] [place] [address] Dr. Joe Shea Hemoglobin (Bld) [Mass/Vol] 12.3 g/dL Normal 12.0-16.0 [facility] Comment on above: Performed By: #### Althea GTZ #### [facility] [address] [place] [address] Dr. Joe Shea IG # 0.02 10e3/ul Normal 0.00-0.03 [facility] Comment on above: Performed By: #### Althea GTZ #### [facility] [address] [place] [address] Dr. Joe Shea IG % 0.3 % Normal 0.0-0.5 [facility] Comment on above: Performed By: ###Asiya GTZ #### [facility] [address] [address] [address] Joe Shea LYMPH # 1.7 103/ul Normal 1.2-3.8 [facility] Comment on above: Performed By: #### Althea GTZ #### [facility] [address] [place] [address] Dr. Joe Shea Lymphocytes/100 WBC (Bld) 24.6 % Normal 20.5-60.0 [facility] Comment on above: Performed By: #### Althea GTZ #### [facility] [address] [place] [address] Dr. Joe Shea MANUAL DIFF REQ NO Normal [facility] Comment on above: Performed By: #### Althea GTZ #### [facility] [address] [place] [address] Dr. Joe Shea MCH (RBC) [Entitic mass] 28.1 pg Normal 26.7-34.0 [facility] Comment on above: Performed By: #### Althea GTZ #### [facility] [address] [place] [address] Dr. Joe Shea MCHC (RBC) [Mass/Vol] 32.1 g/dL Normal 29.9-35.2 [facility] Comment on above: Performed By: #### Althea GTZ #### [facility] [address] [place] [address] Dr. Joe Shea MCV (RBC) [Entitic vol] 87.6 fL Normal 81.0-99.0 [facility] Comment on above: Performed By: #### Althea GTZ #### [facility] [address] [place] [address] Dr. Joe Shea MONO # 0.4 103/ul Normal 0.3-0.8 [facility] Comment on above: Performed By: #### Althea GTZ #### [facility] [address] [place] [address] Dr. Joe Shea Monocytes/100 WBC (Bld) 5.5 % Normal 1.7-12.0 [facility] Comment on above: Performed By: #### Althea GTZ #### [facility] [address] [address] [address] Joe Shea NEUT # 4.7 103/ul Normal 1.4-6.5 [facility] Comment on above: Performed By: #### Althea GTZ #### [facility] [address] [address] [address] Joe Shea Neutrophils/100 WBC (Bld) 66.3 % Normal 43.0-75.0 [facility] Comment on above: Performed By: #### Althea GTZ #### [facility] [address] [address] [address] Joe Shea Platelet mean volume (Bld) [Entitic vol] 11.4 fL Normal 9.5-13.5 [facility] Comment on above: Performed By: #### Althea GTZ #### [facility] [address] [place] [address] Dr. Joe Shea PLT 275 103/ul Normal 150-450 [facility] Comment on above: Performed By: #### Althea GTZ #### [facility] [address] [place] [address] Dr. Joe Shea RBC 4.37 106/ul Normal 4.20-5.40 [facility] Comment on above: Performed By: #### Althea GTZ #### [facility] [address] [place] [address] Dr. Joe Shea WBC 7.0 103/ul Normal 4.0-11.0 [facility] Comment on above: Performed By: #### Althea GTZ #### [facility] [address] [place] [address] Dr. Joe Shea PROF 14(COMP METB)on 023 Albumin [Mass/Vol] 4.4 g/dL Normal 3.4-5.0 [facility] Comment on above: Performed By: #### Courtney GAUTAM #### [facility] [address] [place] [address] Dr. Joe Shea Albumin/Globulin [Mass ratio] 1.4 {ratio} Normal [facility] Comment on above: Performed By: #### L DAIN #### [facility] [address] [address] [address] Joe Shea ALP [Catalytic activity/Vol] 51 U/L Normal 46-116 [facility] Comment on above: Performed By: #### L BCLH #### [facility] [address] [address] [address] Joe Shea ALT [Catalytic activity/Vol] 20 U/L Normal 14-59 [facility] Comment on above: Performed By: #### L BCLH #### [facility] [address] [address] [address] Joe Shea Anion gap [Moles/Vol] 11.7 mmol/L Normal [facility] Comment on above: Performed By: #### L BCLH #### [facility] [address] [place] [address] Dr. Joe Shea AST [Catalytic activity/Vol] 17 U/L Normal 15-37 [facility] Comment on above: Performed By: #### L BCLH #### [facility] [address] [place] [address] Dr. Joe Shea Bilirubin [Mass/Vol] 0.4 mg/dL Normal 0.2-1.0 [facility] Comment on above: Performed By: #### L BCLH #### [facility] [address] [place] [address] Dr. Joe Shea Calcium [Mass/Vol] 9.3 mg/dL Normal 8.5-10.1 [facility] Comment on above: Performed By: #### L BCLH #### [facility] [address] [place] [address] Dr. Joe Shea Chloride [Moles/Vol] 104 mmol/L Normal 98-107 [facility] Comment on above: Performed By: #### L BCLH #### [facility] [address] [address] [address] Joe Shea CO2 [Moles/Vol] 28.5 mmol/L Normal 21.0-32.0 [facility] Comment on above: Performed By: #### L BCLH #### [facility] [address] [address] [address] Joe Shea Creatinine [Mass/Vol] 0.55 mg/dL Normal 0.55-1.02 [facility] Comment on above: Performed By: #### L BCL #### [facility] [address] [address] [address] Joe Shea EGFR-AF SPANISH >60 Normal >=60 [facility] Comment on above: Performed By: #### L BCLH #### [facility] [address] [address] [address] Joe Shea EGFR-NON AF SPANISH >60 Normal >=60 [facility] Comment on above: Performed By: #### L BCLH #### [facility] [address] [place] [address] Dr. Joe Shea Globulin (S) [Mass/Vol] 3.1 g/dL Normal [facility] Comment on above: Performed By: #### L BCL #### [facility] [address] [place] [address] Dr. Joe Shea Glucose [Mass/Vol] 90 mg/dL Normal 74-106 [facility] Comment on above: Performed By: #### L BCL #### [facility] [address] [place] [address] Dr. Joe Shea Potassium [Moles/Vol] 4.2 mmol/L Normal 3.5-5.1 [facility] Comment on above: Performed By: #### L BCL #### [facility] [address] [place] [address] Dr. Joe Shea Protein [Mass/Vol] 7.5 g/dL Normal 6.4-8.2 [facility] Comment on above: Performed By: #### L BCLH #### [facility] [address] [place] [address] Dr. Joe Shea Sodium [Moles/Vol] 140 mmol/L Normal 136-145 [facility] Comment on above: Performed By: #### L BCLH #### [facility] [address] [place] [address] Dr. Joe Shea Urea nitrogen [Mass/Vol] 6.0 mg/dL Critically low 7.0-18. 0 [facility] Comment on above: Performed By: #### L BARRY #### [facility] [address] [place] [address] Dr. Joe Shea Urea nitrogen/Creatinine [Mass ratio] 10.9 mg/mg Normal [facility] Comment on above: Performed By: #### L BARRY #### [facility] [address] [place] [address] Dr. Joe Shea PROTIMEon 09-19-2022 INR Coag (PPP) [Relative time] 1.08 {INR} Normal [facility] Comment on above: Performed By: #### L BARRY #### [facility] [address] [place] [address] Dr. Joe Shea INR GUIDELINES SEE BELOW Normal [facility] Comment on above: Result Comment: CHICA RED INR: 2.0 - 3.0 CONDITIONS NOT LISTED BELOW 2.5 - 3.5 FOR PROSTHETIC HEART VALVE REPLACEMENT 2.5 - 3.5 RECURRENT THROMBOSIS Performed By: #### L BARRY #### [facility] [address] [place] [address] Dr. Joe Shea PT Coag (PPP) [Time] 11.4 s Normal 9.0-11.6 [facility] Comment on above: Performed By: #### L BARRY #### [facility] [address] [place] [address] Dr. Joe Shea TSHon 09-19-2022 TSH 0.957 uIU/mL Normal 0.358-3.740 [facility] Comment on above: Performed By: #### L BARRY #### [facility] [address] [place] [address] Dr. Joe Shea Pre-Certification Formon Pre-Certification Form [id number] 269#1.00CD:127 Normal [facility] Consent for Procedure/Surger yon 07-23-2022 Consent for Procedure/Surgery [id number] 7E#1.00CD:127 Normal [facility] Facesheeton 07-19-2022 Facesheet [id number] 71#1.00CD:127 Normal [facility] CBC AUTO DIFFon 07-06-2022 BASO # 0.1 103/ul Normal 0.0-0.1 [facility] Comment on above: Performed By: #### C NEAL LIPA, NESTOR #### [facility] [address] [place] [address] Dr. Jeo Shea Basophils/100 WBC (Bld) 0.8 % Normal 0.2-2.0 [facility] Comment on above: Performed By: #### C NEAL LIPA, NESTOR #### [facility] [address] [place] [address] Dr. Joe Shea EO # 0.4 103/ul Normal 0.0-0.7 [facility] Comment on above: Performed By: #### C NEAL LIPA, NESTOR #### [facility] [address] [place] [address] Dr. Joe Shea Eosinophils/100 WBC (Bld) 4.2 % Normal 0.9-7.0 [facility] Comment on above: Performed By: #### C NEAL LIPA, NESTOR #### [facility] [address] [place] [address] Dr. oJe Shea Erythrocyte distribution width (RBC) [Ratio] 13.5 % Normal 11.0-15.0 [facility] Comment on above: Performed By: #### C NEAL LIPA, NESTOR #### [facility] [address] [place] [address] Dr. Joe Shea Hematocrit (Bld) [Volume fraction] 36.8 % Normal 36.0-48.0 [facility] Comment on above: Performed By: #### C NEAL LIPA, NESTOR #### [facility] [address] [place] [address] Dr. Joe Shea Hemoglobin (Bld) [Mass/Vol] 12.2 g/dL Normal 12.0-16.0 [facility] Comment on above: Performed By: #### C MP LIPA, NESTOR #### [facility] [address] [place] [address] Dr. Joe Shea IG # 0.02 10e3/ul Normal 0.00-0.03 [facility] Comment on above: Performed By: #### C MP LIPA, NESTOR #### [facility] [address] [place] [address] Dr. Joe Shea IG % 0.2 % Normal 0.0-0.5 [facility] Comment on above: Performed By: #### C NEAL LIPA, NESTOR #### [facility] [address] [place] [address] Dr. Joe Shea LYMPH # 2.1 103/ul Normal 1.2-3.8 [facility] Comment on above: Performed By: #### C NEAL LIPA, NESTOR #### [facility] [address] [place] [address] Dr. Joe Shea Lymphocytes/100 WBC (Bld) 20.3 % Critically low 20.5-6 0.0 [facility] Comment on above: Performed By: #### C HUGO DE JESUSA, NESTOR #### [facility] [address] [place] [address] Dr. Joe Shea MANUAL DIFF REQ NO Normal [facility] Comment on above: Performed By: #### C NEAL LIPA, NESTOR #### [facility] [address] [place] [address] Dr. Joe Shea MCH (RBC) [Entitic mass] 28.6 pg Normal 26.7-34.0 [facility] Comment on above: Performed By: #### C MP LIPA, NESTOR #### [facility] [address] [place] [address] Dr. Joe Shea MCHC (RBC) [Mass/Vol] 33.2 g/dL Normal 29.9-35.2 [facility] Comment on above: Performed By: #### C NEAL LIPA, NESTOR #### [facility] [address] [place] [address] Dr. Joe Shea MCV (RBC) [Entitic vol] 86.4 fL Normal 81.0-99.0 [facility] Comment on above: Performed By: #### C MP LIPA, NESTOR #### [facility] [address] [place] [address] Dr. Joe Shea MONO # 0.6 103/ul Normal 0.3-0.8 [facility] Comment on above: Performed By: #### C MP, LIPA, NESTOR #### [facility] [address] [place] [address] Dr. Joe Shea Monocytes/100 WBC (Bld) 5.5 % Normal 1.7-12.0 [facility] Comment on above: Performed By: #### C MP, LIPA, NESTOR #### [facility] [address] [place] [address] Dr. Joe Shea NEUT # 7.2 103/ul Critically high 1.4-6.5 [facility] Comment on above: Performed By: #### C MP, LIPA, NESTOR #### [facility] [address] [place] [address] Dr. Joe Shea Neutrophils/100 WBC (Bld) 69.0 % Normal 43.0-75.0 [facility] Comment on above: Performed By: #### C MP, LIPA, NESTOR #### [facility] [address] [place] [address] Dr. Joe Shea Platelet mean volume (Bld) [Entitic vol] 10.8 fL Normal 9.5-13.5 [facility] Comment on above: Performed By: #### C MP, LIPA, NESTOR #### [facility] [address] [place] [address] Dr. Joe Shea PLT 316 103/ul Normal 150-450 [facility] Comment on above: Performed By: #### C MP, LIPA, NESTOR #### [facility] [address] [place] [address] Dr. Joe Shea RBC 4.26 106/ul Normal 4.20-5.40 [facility] Comment on above: Performed By: #### C CARLYN DE JESUS AMY #### [facility] [address] [place] [address] Dr. Joe Shea WBC 10.4 103/ul Normal 4.0-11.0 [facility] Comment on above: Performed By: #### C ACRLYN DE JESUS AMY #### [facility] [address] [place] [address] Dr. Joe Shea PREG QUANT HCGon 07-06-2022 HCG QUANT <1 Normal [facility] Comment on above: Performed By: #### C CARLYN DE JESUS AMY #### [facility] [address] [place] [address] Dr. Joe Shea HCG RANGE SEE BELOW Normal [facility] Comment on above: Result Comment: 5-50 0.2-1 WEEK 50-500 1-2 WEEKS 100-5,000 2-3 WEEKS 500-10,000 3-4 WEEKS 1,000-50,000 4-5 WEEKS 10,000-100,000 5-6 WEEKS 15,000-200,000 6-8 WEEKS 10,000-100,000 2-3 MONTHS Performed By: #### C CARLYN DE JESUS AMY #### [facility] [address] [place] [address] Dr. Joe Shea HEPATITIS C ANTIBODYon 06-26 Hep C Virus Ab <0.1 Normal 0.0-0.9 [facility] Comment on above: Result Comment: Nega tive: < 0.8 Indeterminate: 0.8 - 0.9 Positive: > 0.9 . HCV antibody alone does not differentiate between previous resolved infection and active infection. The CDC and current clinical guidelines recommend that a positive HCV antibody result be followed up with an HCV RNA test to support the diagnosis of acute HCV infection. [facility] offers Hepatitis C Virus (HCV) RNA, Diagnosis, MEGAN (906401) and Hepatitis C Virus (HCV) Antibody with reflex to Quantitative Real-time PCR (419998). Performed By: #### L BCLH #### [facility] [address] [place] [address] Dr. Joe Shea Covid-19 PCR (CVDTBH)on 05-31 SARS-CoV-2 (COVID-19) RNA MEGAN+probe Ql (Unsp spec) Not detected Normal NOT DETECTED [facility] Comment on above: Result Comment: This test is not yet approved or cleared by the [place] FDA. When there are no FDA-approved or cleared tests available, and other criteria are met, FDA can make tests available under an emergency access mechanism called an Emergency Use Authorization (EUA). The EUA for this test is supported by the [place] of Health and Human Service's (HHS's) declaration that circumstances exist to justify the emergency use of in vitro diagnostics for the detection and/or diagnosis of the virus that causes COVID-19. This EUA will remain in effect (meaning this test can be used) for the duration of the COVID-19 declaration justifying emergency of IVDs, unless it is terminated or revoked by FDA (after which the test may no longer be used). When diagnostic testing is negative, the possibility of a false negative should be considered in the context of a patient's recent exposures and the presence of clinical signs and symptoms consistent with SARS-CoV-2. Performed By: #### C VDTBH #### [facility] [address] [place] [address] Dr. Joe Shea HEP B SURFACE ANTIGEN SCREEN on 06-12-2022 HBsAg Screen Negative Normal Negative [facility] Comment on above: Performed By: #### D HEASUL #### [facility] [address] [address] [address] Joe Shea HIV 1 AND 2 WITH REFLEXon HIV Screen 4th Generation wRfx Non-Reactive Normal Non Reactive [facility] Comment on above: Result Comment: HIV Negative HIV-1/HIV-2 antibodies and HIV-1 p24 antigen were NOT detected. There is no laboratory evidence of HIV infection. Performed By: #### C CARLYN DE JESUS AMY #### [facility] [address] [place] [address] Dr. Joe Shea RPR QUANTon 06-12-2022 Rapid Plasma Reagin, Quant Non-Reactive Normal NonRea< 1:1 [facility] Comment on above: Result Comment: Plea se Note: This test does not meet current guidelines for screening and diagnosis of syphilis. This test is intended for following treatment response in patients being treated for syphilis infection. To screen for syphilis infection, a reflex cascade that includes both RPR and a treponema-specific assay should be utilized, such as Treponema pallidum (Syphilis) Screening [place] (835175) or Rapid Plasma Reagin (RPR) Test With Reflex to Quantitative RPR and Confirmatory Treponema pallidum Antibodies (198400). Performed By: #### C CARLYN DE JESUS AMY #### [facility] [address] [place], [place] [address] Dr. Joe Shea Physician Referralon 022 Physician Referral [id number] A3#1.00CD:127 Normal [facility] US PELVIS AND TRANSVAGon US PELVIS AND TRANSVAG EXAMINATION: US PELVIS AND TRANSVAG HISTORY: Cyst of ovary COMPARISON: 04/05/2022 FINDINGS: The uterus is normal in size, contour and echotexture measuring 9.6 x 4.6 x 3.2 cm. No focal myometrial mass The endometrium measures 8 mm, normal. Complex avascular area in the cervix is stable measures 1.1 x 1.0 x 1.0 cm The right ovary is normal in appearance measuring 3.3 x 1.9 x 2.0 cm. Normal color and Doppler flow The left ovary is normal in size measuring 4.2 x 2.2 x 2.7 cm. Normal color Doppler flow. Hypervascular hyperechogenic area measuring 2.7 x 2.4 x 2.2 cm. IMPRESSION: Stable 1.1 cm avascular cystic lesion in the cervix possibly a complex cyst Hypervascular hyperechogenic 2.7 cm left ovarian mass, increased in size from the prior exam, indeterminate Electronically authenticated by: ANGIE MEJIA Date: 2022-05-31 17:18 Normal [facility] AMYLASEon 05-23-2022 Amylase [Catalytic activity/Vol] 24 U/L Critically low 25-115 [facility] Comment on above: Performed By: #### C CARLYN DE JESUS AMY #### [facility] [address] [place], [place] [address] Dr. Joe Shea CBC AUTO DIFFon 05-23-2022 Eosinophils/100 WBC (Bld) 1.5 % Normal 0.9-7.0 [facility] Comment on above: Performed By: #### L BARRY #### [facility] [address] [place] [address] Dr. Joe Shea Erythrocyte distribution width (RBC) [Ratio] 13.5 % Normal 11.0-15.0 [facility] Comment on above: Performed By: #### L BCL #### [facility] [address] [place] [address] Dr. Joe Shea Hematocrit (Bld) [Volume fraction] 33.0 % Critically low 36.0-48.0 [facility] Comment on above: Performed By: #### L BARRYH #### [facility] [address] [place] [address] Dr. Joe Shea Hemoglobin (Bld) [Mass/Vol] 10.7 g/dL Critically low 12.0-16.0 [facility] Comment on above: Performed By: #### L BCL #### [facility] [address] [place] [address] Dr. Joe Shea LYMPH # 1.2 103/ul Normal 1.2-3.8 [facility] Comment on above: Performed By: #### L BARRY #### [facility] [address] [place] [address] Dr. Joe Shea Lymphocytes/100 WBC (Bld) 20.2 % Critically low 20.5-6 0.0 [facility] Comment on above: Performed By: #### L BCL #### [facility] [address] [place] [address] Dr. Joe Shea MCH (RBC) [Entitic mass] 28.0 pg Normal 26.7-34.0 [facility] Comment on above: Performed By: #### L BCLH #### [facility] [address] [place] [address] Dr. Joe Shea MCHC (RBC) [Mass/Vol] 32.4 g/dL Normal 29.9-35.2 [facility] Comment on above: Performed By: #### L BCLH #### [facility] [address] [place] [address] Dr. Joe Shea Monocytes/100 WBC (Bld) 7.9 % Normal 1.7-12.0 [facility] Comment on above: Performed By: #### L BCL #### [facility] [address] [place] [address] Dr. Joe Shea Neutrophils/100 WBC (Bld) 69.9 % Normal 43.0-75.0 [facility] Comment on above: Performed By: #### L BCL #### [facility] [address] [place] [address] Dr. Joe Shea Platelet mean volume (Bld) [Entitic vol] 10.6 fL Normal 9.5-13.5 [facility] Comment on above: Performed By: #### L BCL #### [facility] [address] [place] [address] Dr. Joe Shea PLT 233 103/ul Normal 150-450 [facility] Comment on above: Performed By: #### L BCL #### [facility] [address] [place] [address] Dr. Joe Shea RBC 3.82 106/ul Critically low 4.20-5.40 [facility] Comment on above: Performed By: #### L BCL #### [facility] [address] [place] [address] Dr. Joe Shea WBC 6.1 103/ul Normal 4.0-11.0 [facility] Comment on above: Performed By: #### L BCL #### [facility] [address] [place] [address] Dr. Joe Shea BASO # 0.0 103/ul Normal 0.0-0.1 [facility] Comment on above: Performed By: #### L BCL #### [facility] [address] [place] [address] Dr. Joe Shea Performed By: #### C MP, LIPA, NESTOR #### [facility] [address] [place] [address] Dr. Joe Shea Basophils/100 WBC (Bld) 0.3 % Normal 0.2-2.0 [facility] Comment on above: Performed By: #### L BCLH #### [facility] [address] [place] [address] Dr. Joe Shea Performed By: #### C CARLYN DE JESUS, NESTOR #### [facility] [address] [place] [address] Dr. Joe Shea EO # 0.1 103/ul Normal 0.0-0.7 [facility] Comment on above: Performed By: #### L BCLH #### [facility] [address] [place] [address] Dr. Joe Shea Performed By: #### C CARLYN DE JESUS NESTOR #### [facility] [address] [place] [address] Dr. Joe Shea Eosinophils/100 WBC (Bld) 1.9 % Normal 0.9-7.0 [facility] Comment on above: Performed By: #### C CARLYN DE JESUS, NESTOR #### [facility] [address] [place] [address] Dr. Joe Shea Erythrocyte distribution width (RBC) [Ratio] 13.4 % Normal 11.0-15.0 [facility] Comment on above: Performed By: #### C CARLYN DE JESUS, NESTOR #### [facility] [address] [place] [address] Dr. Joe Shea Hematocrit (Bld) [Volume fraction] 32.3 % Critically low 36.0-48.0 [facility] Comment on above: Performed By: #### C CARLYN DE JESUS, NESTOR #### [facility] [address] [place] [address] Dr. Joe Shea Hemoglobin (Bld) [Mass/Vol] 10.6 g/dL Critically low 12.0-16.0 [facility] Comment on above: Performed By: #### C HUGO DE JESUSA, NESTOR #### [facility] [address] [place] [address] Dr. Joe Shea IG # 0.01 10e3/ul Normal 0.00-0.03 [facility] Comment on above: Performed By: #### L BCLH #### [facility] [address] [place] [address] Dr. Joe Shea Performed By: #### C MP LIPA, NESTOR #### [facility] [address] [place] [address] Dr. Joe Shea IG % 0.2 % Normal 0.0-0.5 [facility] Comment on above: Performed By: #### L BCLH #### [facility] [address] [place] [address] Dr. Joe Shea Performed By: #### C MP, LIPA, NESTOR #### [facility] [address] [place] [address] Dr. Joe Shea LYMPH # 1.0 103/ul Critically low 1.2-3.8 [facility] Comment on above: Performed By: #### C MP LIPA, NESTOR #### [facility] [address] [place] [address] Dr. Joe Shea Lymphocytes/100 WBC (Bld) 16.6 % Critically low 20.5-6 0.0 [facility] Comment on above: Performed By: #### C MP LIPA, NESTOR #### [facility] [address] [place] [address] Dr. Joe Shea MANUAL DIFF REQ NO Normal [facility] Comment on above: Performed By: #### L BCLH #### [facility] [address] [place] [address] Dr. Joe Shea Performed By: #### C MP, LIPA, NESTOR #### [facility] [address] [place] [address] Dr. Joe Shea MCH (RBC) [Entitic mass] 28.3 pg Normal 26.7-34.0 [facility] Comment on above: Performed By: #### C MP, LIPA, NESTOR #### [facility] [address] [place] [address] Dr. Joe Shea MCHC (RBC) [Mass/Vol] 32.8 g/dL Normal 29.9-35.2 [facility] Comment on above: Performed By: #### C MP, LIPA, NESTOR #### [facility] [address] [place] [address] Dr. Joe Shea MCV (RBC) [Entitic vol] 86.4 fL Normal 81.0-99.0 [facility] Comment on above: Performed By: #### L BARRY #### [facility] [address] [place] [address] Dr. Joe Shea Performed By: #### C MP, LIPA, NESTOR #### [facility] [address] [place] [address] Dr. Joe Shea MONO # 0.5 103/ul Normal 0.3-0.8 [facility] [facility] [place] Comment on above: Performed By: #### L BARRY #### [facility] [address] [place] [address] Dr. Joe Shea Performed By: #### C MP, LIPA, NESTOR #### [facility] [address] [place] [address] Dr. Joe Shea Monocytes/100 WBC (Bld) 9.1 % Normal 1.7-12.0 [facility] Comment on above: Performed By: #### C MP, LIPA, NESTOR #### [facility] [address] [place] [address] Dr. Joe Shea NEUT # 4.3 103/ul Normal 1.4-6.5 [facility] [place] Comment on above: Performed By: #### L BARRY #### [facility] [address] [place] [address] Dr. Joe Shea Performed By: #### C MP, LIPA, NESTOR #### [facility] [address] [place] [address] Dr. Joe Shea Neutrophils/100 WBC (Bld) 71.9 % Normal 43.0-75.0 [facility] Comment on above: Performed By: #### C MP, LIPA, NESTOR #### [facility] [address] [place] [address] Dr. Joe Shea Platelet mean volume (Bld) [Entitic vol] 11.0 fL Normal 9.5-13.5 [facility] Comment on above: Performed By: #### C NEAL LIPA, NESTOR #### [facility] [address] [address] [address] Joe Shea PLT 224 103/ul Normal 150-450 [facility] [place] Comment on above: Performed By: #### C MP LIPA, NESTOR #### [facility] [address] [address] [address] Joe Shea RBC 3.74 106/ul Critically low 4.20-5.40 [facility] Comment on above: Performed By: #### C NEAL LIPA, NESTOR #### [facility] [address] [address] [address] Joe Shea WBC 5.9 103/ul Normal 4.0-11.0 [facility] Comment on above: Performed By: #### C NEAL LIPA, NESTOR #### [facility] [address] [place] [address] Dr. Joe Shea ER URINE PROFILEon 2 Bilirubin Ql (U) Negative Normal NEGATIVE [facility] Comment on above: Performed By: #### L BCL #### [facility] [address] [place] [address] Dr. Joe Shea Clarity (U) CLEAR Normal CLEAR [facility] Comment on above: Performed By: #### L BCL #### [facility] [address] [place] [address] Dr. Joe Shea Color (U) LT. YELLOW Normal YELLOW [facility] Comment on above: Performed By: #### L BCL #### [facility] [address] [place] [address] Dr. Joe Shea ERUAHD A micrscopic examination will be performed if indicated. Normal [facility] Comment on above: Performed By: #### L BCL #### [facility] [address] [place] [address] Dr. Joe Shea Glucose Ql (U) Negative Normal NEGATIVE [facility] Comment on above: Performed By: #### L BCL #### [facility] [address] [place] [address] Dr. Joe Shea Hemoglobin Ql (U) Negative Normal NEGATIVE [facility] Comment on above: Performed By: #### L BCLH #### [facility] [address] [place] [address] Dr. Joe Shea Ketones Ql (U) Negative Normal NEGATIVE [facility] Comment on above: Performed By: #### L BCLH #### [facility] [address] [place] [address] Dr. Joe Shea LEUKOCYTES Negative Normal NEGATIVE [facility] Comment on above: Performed By: #### L BCLH #### [facility] [address] [address] [address] Joe Shea Nitrite Ql (U) Negative Normal NEGATIVE [facility] Comment on above: Performed By: #### L BCLH #### [facility] [address] [place] [address] Dr. Joe Shea pH (U) 5.5 [pH] Normal 5-9 [facility] Comment on above: Performed By: #### L BCL #### [facility] [address] [place] [address] Dr. Joe Shea SPEC GRAVITY 1.020 Normal 1.005-<=1.[address] [place] [address] Comment on above: Performed By: #### L BCL #### [facility] [address] [place] [address] Dr. Joe Shea UA PROTEIN Negative Normal NEGATIVE/ TRACE [facility] Comment on above: Performed By: #### L BCL #### [facility] [address] [place] [address] Dr. Joe Shea UR MICRO IND NOT INDICATED Normal [facility] Comment on above: Performed By: #### L BCLH #### [facility] [address] [place] [address] Dr. Joe Shea Urobilinogen Qn (U) 0.2 {Pascual'U}/dL Normal 0.2 - 1. 0 [facility] Comment on above: Performed By: #### L BCLH #### [facility] [address] [place] [address] Dr. Joe Shea LIPASEon 05-23-2022 Lipase [Catalytic activity/Vol] 63.0 U/L Critically low 73.0-393.0 [facility] Comment on above: Performed By: #### C MP, LIPA, NESTOR #### [facility] [address] [address] [address] Joe Shea URon 05-23-2022 , QUAL Negative Normal NEGATIVE [facility] Comment on above: Performed By: #### C BC #### [facility] [address] [address] [address] Joe Shea PROF 14(COMP METB)on 022 Albumin [Mass/Vol] 3.7 g/dL Normal 3.4-5.0 [facility] Comment on above: Performed By: #### C MP, LIPA, NESTOR #### [facility] [address] [address] [address] Joe Shea Albumin/Globulin [Mass ratio] 1.4 {ratio} Normal [facility] Comment on above: Performed By: #### C MP, LIPA, NESTOR #### [facility] [address] [address] [address] Joe Shea ALP [Catalytic activity/Vol] 44 U/L Critically low 46-116 [facility] Comment on above: Performed By: #### C MP, LIPA, NESTOR #### [facility] [address] [address] [address] Joe Shea ALT [Catalytic activity/Vol] 24 U/L Normal 14-59 [facility] Comment on above: Performed By: #### C MP, LIPA, NESTOR #### [facility] [address] [address] [address] Joe Shea Anion gap [Moles/Vol] 9.1 mmol/L Normal [facility] Comment on above: Performed By: #### C MP, LIPA, NESTOR #### [facility] [address] [address] [address] Joe Shea AST [Catalytic activity/Vol] 18 U/L Normal 15-37 [facility] [place] Comment on above: Performed By: #### C MP, LIPA, NESTOR #### [facility] [address] [address] [address] Joe Shea Bilirubin [Mass/Vol] 0.2 mg/dL Normal 0.2-1.0 [facility] Comment on above: Performed By: #### C MP, LIPA, NESTOR #### [facility] [address] [place] [address] Dr. Joe Shea Calcium [Mass/Vol] 8.3 mg/dL Critically low 8.5-10.1 Th e [facility] Comment on above: Performed By: #### C MP LIPA, NESTOR #### [facility] [address] [place] [address] Dr. Joe Shea Chloride [Moles/Vol] 105 mmol/L Normal 98-107 [facility] [place] Comment on above: Performed By: #### C MP LIPA, NESTOR #### [facility] [address] [place] [address] Dr. Joe Shea CO2 [Moles/Vol] 29.7 mmol/L Normal 21.0-32.0 [facility] Comment on above: Performed By: #### C MP LIPA, NESTOR #### [facility] [address] [place] [address] Dr. Joe Shea Creatinine [Mass/Vol] 0.61 mg/dL Normal 0.55-1.02 [facility] Comment on above: Performed By: #### C MP LIPA, NESTOR #### [facility] [address] [place] [address] Dr. Joe Shea EGFR-AF SPANISH >60 Normal >=60 [facility] Comment on above: Performed By: #### C MP, LIPA, NESTOR #### [facility] [address] [place] [address] Dr. Joe Shea EGFR-NON AF SPANISH >60 Normal >=60 [facility] Comment on above: Performed By: #### C MP, LIPA, NESTOR #### [facility] [address] [place] [address] Dr. Joe Shea Globulin (S) [Mass/Vol] 2.6 g/dL Normal [facility] Comment on above: Performed By: #### C CARLYN DE JESUS, NESTOR #### [facility] [address] [address] [address] Joe Shea Glucose [Mass/Vol] 92 mg/dL Normal 74-106 [facility] Comment on above: Performed By: #### C CARLYN DE JESUS, NESTOR #### [facility] [address] [address] [address] Joe Shea Potassium [Moles/Vol] 3.8 mmol/L Normal 3.5-5.1 [facility] Comment on above: Performed By: #### C CARLYN DE JESUS, NESTOR #### [facility] [address] [place] [address] Dr. Joe Shea Protein [Mass/Vol] 6.3 g/dL Critically low 6.4-8.2 [facility] Comment on above: Performed By: #### C CARLYN DE JESUS, NESTOR #### [facility] [address] [address] [address] Joe Shea Sodium [Moles/Vol] 140 mmol/L Normal 136-145 [facility] Comment on above: Performed By: #### C CARLYN DE JESUS, NESTOR #### [facility] [address] [place] [address] Dr. Joe Shea Urea nitrogen [Mass/Vol] 9.0 mg/dL Normal 7.0-18.0 [facility] Comment on above: Performed By: #### C CARLYN DE JESUS, NESTOR #### [facility] [address] [place] [address] Dr. Joe Shea Urea nitrogen/Creatinine [Mass ratio] 14.8 mg/mg Normal [facility] Comment on above: Performed By: #### C CARLYN DE JESUS, NESTOR #### [facility] [address] [place] [address] Dr. Joe Shea US SINGLE QUAD RT UPPERon US SINGLE QUAD RT UPPER EXAMINATION: US SINGLE QUAD RT UPPER HISTORY: Pain ; right upper quadrant pain for several months COMPARISON: CT abdomen pelvis 03/10/2022 TECHNIQUE: Transabdominal evaluation of the right upper quadrant. FINDINGS: LIVER: Normal size and echotexture. Color Doppler demonstrates patent hepatic veins. PORTAL VEIN: Duplex Doppler demonstrates normal hepatopetal flow pattern with flow velocity averaging 30 cm/s. GALLBLADDER: No visible gallstones, wall thickening, or pericholecystic free fluid. Negative sonographic Rocha's sign. BILIARY: No abnormal dilation or stones. Common bile duct diameter is within normal limits. PANCREASE: No visible mass, abnormal atrophy, or duct dilation. KIDNEY: No hydronephrosis. No visible mass or stones. Size: 10.2 x 6.0 x 4.8 cm IMPRESSION: 1. Normal right upper quadrant ultrasound. Electronically authenticated by: SHIRLEY PATEL Date: 2022-05-23 08:29 Normal [facility] AMYLASEon 05-22-2022 Amylase [Catalytic activity/Vol] 50 U/L Normal 25-115 [facility] Comment on above: Performed By: #### A MY, CMP, LIPA #### [facility] [address] [place] [address] Dr. Joe Shea CBC AUTO DIFFon 05-22-2022 BASO # 0.1 103/ul Normal 0.0-0.1 [facility] Comment on above: Performed By: #### C MP LIPA, NESTOR #### [facility] [address] [place] [address] Dr. Joe Shea Basophils/100 WBC (Bld) 0.3 % Normal 0.2-2.0 [facility] Comment on above: Performed By: #### C MP LIPA, NESTOR #### [facility] [address] [place] [address] Dr. Joe Shea EO # 0.0 103/ul Normal 0.0-0.7 [facility] Comment on above: Performed By: #### C MP LIPA, NESTOR #### [facility] [address] [place] [address] Dr. Joe Shea Eosinophils/100 WBC (Bld) 0.2 % Critically low 0.9-7. 0 [facility] Comment on above: Performed By: #### C MP LIPA, NESTOR #### [facility] [address] [place] [address] Dr. Joe Shea Erythrocyte distribution width (RBC) [Ratio] 13.3 % Normal 11.0-15.0 [facility] Comment on above: Performed By: #### C NEAL LIPA, NESTOR #### [facility] [address] [place] [address] Dr. Joe Shea Hematocrit (Bld) [Volume fraction] 39.0 % Normal 36.0-48.0 [facility] Comment on above: Performed By: #### C MP LIPA, NESTOR #### [facility] [address] [place] [address] Dr. Joe Shea Hemoglobin (Bld) [Mass/Vol] 12.7 g/dL Normal 12.0-16.0 [facility] Comment on above: Performed By: #### C NEAL LIPA, NESTOR #### [facility] [address] [place] [address] Dr. Joe Shea IG # 0.05 10e3/ul Critically high 0.00-0.03 [facility] Comment on above: Performed By: #### C NEAL LIPA, NESTOR #### [facility] [address] [place] [address] Dr. Joe Shea IG % 0.3 % Normal 0.0-0.5 [facility] Comment on above: Performed By: #### C NEAL LIPA, NESTOR #### [facility] [address] [place] [address] Dr. Joe Shea LYMPH # 0.8 103/ul Critically low 1.2-3.8 [facility] Comment on above: Performed By: #### C NEAL LIPA, NESTOR #### [facility] [address] [place] [address] Dr. Joe Shea Lymphocytes/100 WBC (Bld) 4.4 % Critically low 20.5-6 0.0 [facility] Comment on above: Performed By: #### C NEAL LIPA, NESTOR #### [facility] [address] [place] [address] Dr. Joe Shea MANUAL DIFF REQ NO Normal [facility] Comment on above: Performed By: #### C CARLYN DE JESUS, NESTOR #### [facility] [address] [place] [address] Dr. Joe Shea MCH (RBC) [Entitic mass] 28.1 pg Normal 26.7-34.0 [facility] Comment on above: Performed By: #### C CARLYN DE JESUS, NESTOR #### [facility] [address] [place] [address] Dr. Joe Shea MCHC (RBC) [Mass/Vol] 32.6 g/dL Normal 29.9-35.2 [facility] Comment on above: Performed By: #### C HUGO DE JESUSA, NESTOR #### [facility] [address] [place] [address] Dr. Joe Shea MCV (RBC) [Entitic vol] 86.3 fL Normal 81.0-99.0 [facility] Comment on above: Performed By: #### C HUGO DE JESUSA, NESTOR #### [facility] [address] [place] [address] Dr. Joe Shea MONO # 0.4 103/ul Normal 0.3-0.8 [facility] Comment on above: Performed By: #### C HUGO DE JESUSA, NESTOR #### [facility] [address] [place] [address] Dr. Joe Shea Monocytes/100 WBC (Bld) 2.2 % Normal 1.7-12.0 [facility] Comment on above: Performed By: #### C NEAL LIPA, NESTOR #### [facility] [address] [place] [address] Dr. Joe Shea NEUT # 16.7 103/ul Critically high 1.4-6.5 [facility] Comment on above: Performed By: #### C NEAL LIPA, NESTOR #### [facility] [address] [place] [address] Dr. Joe Shea Neutrophils/100 WBC (Bld) 92.6 % Critically high 43.0- 75.0 [facility] Comment on above: Performed By: #### C MP, LIPA, NESTOR #### [facility] [address] [address] [address] Joe Shea Platelet mean volume (Bld) [Entitic vol] 11.0 fL Normal 9.5-13.5 [facility] Comment on above: Performed By: #### C MP, LIPA, NESTOR #### [facility] [address] [address] [address] Joe Shea PLT 323 103/ul Normal 150-450 [facility] Comment on above: Performed By: #### C MP, LIPA, NESTOR #### [facility] [address] [place] [address] Dr. Joe Shea RBC 4.52 106/ul Normal 4.20-5.40 [facility] Comment on above: Performed By: #### C MP, LIPA, NESTOR #### [facility] [address] [place] [address] Dr. oJe Shea WBC 18.0 103/ul Critically high 4.0-11.0 [facility] Comment on above: Performed By: #### C NEAL, LIPA, NESTOR #### [facility] [address] [place] [address] Dr. Joe Shea ER URINE PROFILEon 2 Bilirubin Ql (U) Negative Normal NEGATIVE [facility] Comment on above: Performed By: #### Althea GTZ #### [facility] [address] [place] [address] Dr. Joe Shea Clarity (U) CLEAR Normal CLEAR [facility] Comment on above: Performed By: #### Althea GTZ #### [facility] [address] [place] [address] Dr. Joe Shea Color (U) YELLOW Normal YELLOW [facility] Comment on above: Performed By: #### Althea GTZ #### [facility] [address] [place] [address] Dr. Joe Shea ERUAHAlthea A micrscopic examination will be performed if indicated. Normal [facility] Comment on above: Performed By: #### Althea GTZ #### [facility] [address] [address] [address] Joe Shea Glucose Ql (U) Negative Normal NEGATIVE [facility] Comment on above: Performed By: #### Althea GTZ #### [facility] [address] [address] [address] Joe Shea Hemoglobin Ql (U) Negative Normal NEGATIVE [facility] Comment on above: Performed By: #### Althea GTZ #### [facility] [address] [address] [address] Joe Shea Ketones Ql (U) 15 mg/dl Abnormal NEGATIVE [facility] Comment on above: Performed By: #### Althea GTZ #### [facility] [address] [place] [address] Dr. Joe Shea LEUKOCYTES Negative Normal NEGATIVE [facility] Comment on above: Performed By: #### Althea GTZ #### [facility] [address] [place] [address] Dr. Joe Shea Nitrite Ql (U) Negative Normal NEGATIVE [facility] Comment on above: Performed By: #### Althea GTZ #### [facility] [address] [address] [address] Joe Shea pH (U) 5.5 [pH] Normal 5-9 [facility] Comment on above: Performed By: #### Althea GTZ #### [facility] [address] [place] [address] Dr. Joe Shea SPEC GRAVITY >=1.030 Abnormal 1.005-<=1.[address] [place] [address] Comment on above: Performed By: #### Althea GTZ #### [facility] [address] [place] [address] Dr. Joe Shea UA PROTEIN Negative Normal NEGATIVE/ TRACE [facility] Comment on above: Performed By: #### Althea GTZ #### [facility] [address] [place] [address] Dr. Joe Shea UR MICRO IND NOT INDICATED Normal [facility] Comment on above: Performed By: #### Althea GTZ #### [facility] [address] [address] [address] Joe Shea Urobilinogen Qn (U) 1.0 {Pascual'U}/dL Normal 0.2 - 1. 0 [facility] Comment on above: Performed By: #### D TRESA #### [facility] [address] [address] [address] Joe Shea LACTATE/LACTIC ACIDon 2021 Lactate [Moles/Vol] 1.0 mmol/L Normal 0.4-1.9 [facility] Comment on above: Performed By: #### C BC #### [facility] [address] [place] [address] Dr. Joe Shea LIPASEon 05-22-2022 Lipase [Catalytic activity/Vol] 205.0 U/L Normal 73.0-393.0 [facility] Comment on above: Performed By: #### A MY, CMP, LIPA #### [facility] [address] [place] [address] Dr. Joe Shea MRI BRAIN WO CONon MRI BRAIN WO CON EXAM: MRI BRAIN WO CON HISTORY: Migraine COMPARISON: Head CT 02/21/2018. TECHNIQUE: Multiplanar, multisequence MR imaging of the head was performed without intravenous contrast. FINDINGS: No restricted diffusion. No acute hemorrhage, mass effect, midline shift, or extra-axial fluid collection. No ventriculomegaly. Expected flow voids are noted within the intracranial internal carotid, vertebral, and basilar arteries. Cerebellopontine angles and internal auditory canals are unremarkable. The pituitary gland and midline structures are unremarkable. Bone marrow signal is within normal limits. Orbits and globes are unremarkable. Expected signal voids are seen within the paranasal sinuses and mastoid air cells. IMPRESSION: Unremarkable noncontrast enhanced brain MRI. No focal signal abnormality, mass effect, or evidence of hemorrhage. Electronically authenticated by: ANGIE LO Date: 2022-05-22 16:17 Normal [facility] URon 05-22-2022 , QUAL Negative Normal NEGATIVE [facility] Comment on above: Performed By: #### D TRESA #### [facility] [address] [place] [address] Dr. Joe Shea PROF 14(COMP METB)on 022 Albumin [Mass/Vol] 4.5 g/dL Normal 3.4-5.0 [facility] Comment on above: Performed By: #### Althea GTZ #### [facility] [address] [address] [address] Joe Shea Albumin/Globulin [Mass ratio] 1.4 {ratio} Normal [facility] Comment on above: Performed By: #### Althea GTZ #### [facility] [address] [address] [address] Joe Shea ALP [Catalytic activity/Vol] 60 U/L Normal 46-116 [facility] Comment on above: Performed By: #### Althea GTZ #### [facility] [address] [address] [address] Joe Shea ALT [Catalytic activity/Vol] 17 U/L Normal 14-59 [facility] Comment on above: Performed By: #### Althea GTZ #### [facility] [address] [address] [address] Joe Shea Anion gap [Moles/Vol] 10.9 mmol/L Normal [facility] Comment on above: Performed By: #### Althea GTZ #### [facility] [address] [address] [address] Joe Shea AST [Catalytic activity/Vol] 19 U/L Normal 15-37 [facility] Comment on above: Performed By: #### Althea GTZ #### [facility] [address] [address] [address] Joe Shea Bilirubin [Mass/Vol] 0.8 mg/dL Normal 0.2-1.0 [facility] Comment on above: Performed By: #### Althea GTZ #### [facility] [address] [address] [address] Joe Shea Calcium [Mass/Vol] 9.0 mg/dL Normal 8.5-10.1 [facility] Comment on above: Performed By: #### Althea TGZ #### [facility] [address] [address] [address] Joe Shea Chloride [Moles/Vol] 102 mmol/L Normal 98-107 [facility] Comment on above: Performed By: #### Althea GTZ #### [facility] [address] [address] [address] Joe Shea CO2 [Moles/Vol] 28.7 mmol/L Normal 21.0-32.0 [facility] Comment on above: Performed By: #### Althea GTZ #### [facility] [address] [address] [address] Joe Shea Creatinine [Mass/Vol] 0.73 mg/dL Normal 0.55-1.02 [facility] Comment on above: Performed By: #### Althea GTZ #### [facility] [address] [address] [address] Joe Shea EGFR-AF SPANISH >60 Normal >=60 [facility] Comment on above: Performed By: #### Althea GTZ #### [facility] [address] [address] [address] Joe Shea EGFR-NON AF SPANISH >60 Normal >=60 [facility] Comment on above: Performed By: #### Althea GTZ #### [facility] [address] [address] [address] Joe Shea Globulin (S) [Mass/Vol] 3.2 g/dL [facility] Comment on above: Performed By: #### Althea GTZ #### [facility] [address] [address] [address] Joe Shea Glucose [Mass/Vol] 113 mg/dL Critically high 74-106 [facility] Comment on above: Performed By: #### Althea GTZ #### [facility] [address] [address] [address] Joe Shea Potassium [Moles/Vol] 3.6 mmol/L Normal 3.5-5.1 [facility] Comment on above: Performed By: #### Althea GTZ #### [facility] [address] [address] [address] Joe Shea Protein [Mass/Vol] 7.7 g/dL Normal 6.4-8.2 [facility] Comment on above: Performed By: #### Althea GTZ #### [facility] [address] [address] [address] Joe Shea Sodium [Moles/Vol] 138 mmol/L Normal 136-145 [facility] Comment on above: Performed By: #### Althea GTZ #### [facility] [address] [address] [address] Joe Shea Urea nitrogen [Mass/Vol] 9.0 mg/dL Normal 7.0-18.0 [facility] Comment on above: Performed By: #### Althea GTZ #### [facility] [address] [address] [address] Joe Shea Urea nitrogen/Creatinine [Mass ratio] 12.3 mg/mg Normal [facility] Comment on above: Performed By: #### Althea GTZ #### [facility] [address] [address] [address] Joe Shea XR CHEST 2 Von 05-22-2022 XR CHEST 2 V EXAM: XR CHEST 2 V HISTORY: NAUSEA WITH VOMITING, UNSPECIFIED COMPARISON: CT chest 04/02/2021 TECHNIQUE: 2 these chest x-ray frontal and lateral FINDINGS: No lobar consolidation, large pleural effusions, pneumothorax, or acute bony abnormality. Cardiac size is unremarkable. IMPRESSION: No radiographic evidence for acute chest abnormality. Electronically authenticated by: ANA COTE Date: 2022-05-22 02:56 Normal [facility] PROGESTERONEon 05-08-2022 Progesterone 18.1 ng/mL Normal [facility] Comment on above: Result Comment: Foll icular phase 0.1 - 0.9 Luteal phase 1.8 - 23.9 Ovulation phase 0.1 - 12.0 First trimester 11.0 - 44.3 Second trimester 25.4 - 83.3 Third trimester 58.7 - 214.0 Postmenopausal 0.0 - 0.1 Performed By: #### C YANIRA #### [facility] [address] [address] [address] Joe Shea DHEA SERUMon 04-12-2022 Dehydroepiandrosterone (DHEA) 577 ng/dL Normal 31-701 [facility] Comment on above: Result Comment: Age 1 - 5 years 0 - 67 6 - 7 years 0 - 110 8 - 10 years 0 - 185 11 - 12 years 0 - 201 13 - 14 years 0 - 318 15 - 16 years 39 - 481 17 - 19 years 40 - 491 >19 years 31 - 701 Performed By: #### Darius DOYLE #### [facility] [address] [place], [place] [address] Dr. Joe Shea PROGESTERONEon 04-10-2022 Progesterone 16.0 ng/mL Normal [facility] Comment on above: Result Comment: Foll icular phase 0.1 - 0.9 Luteal phase 1.8 - 23.9 Ovulation phase 0.1 - 12.0 First trimester 11.0 - 44.3 Second trimester 25.4 - 83.3 Third trimester 58.7 - 214.0 Postmenopausal 0.0 - 0.1 Performed By: ###Asiya GTZ #### [facility] [address] [place] [address] Dr. Joe Shea DHEA-SULFATEon 04-06-2022 DHEA-Sulfate 241.0 ug/dL Normal 110.0-431.7 [facility] Comment on above: Performed By: ###Asiya GTZ #### [facility] [address] [place] [address] Dr. Joe Shea FSHon 04-06-2022 FSH 6.6 mIU/mL Normal [facility] Comment on above: Result Comment: Adul t Female: Follicular phase 3.5 - 12.5 Ovulation phase 4.7 - 21.5 Luteal phase 1.7 - 7.7 Postmenopausal 25.8 - 134.8 Performed By: #### Althea GTZ #### [facility] [address] [place] [address] Dr. Joe Shea LUTEINIZING HORMONE (LH)on LH 19.8 mIU/mL Normal [facility] Comment on above: Result Comment: Adul t Female: Follicular phase 2.4 - 12.6 Ovulation phase 14.0 - 95.6 Luteal phase 1.0 - 11.4 Postmenopausal 7.7 - 58.5 Performed By: #### L BCLH #### [facility] [address] [place] [address] Dr. Joe Shea CBC AUTO DIFFon 04-05-2022 BASO # 0.1 103/ul Normal 0.0-0.1 [facility] Comment on above: Performed By: #### C BC #### [facility] [address] [place] [address] Dr. Joe Shea Basophils/100 WBC (Bld) 0.9 % Normal 0.2-2.0 [facility] Comment on above: Performed By: #### C BC #### [facility] [address] [place] [address] Dr. Joe Shea EO # 0.2 103/ul Normal 0.0-0.7 [facility] Comment on above: Performed By: #### C BC #### [facility] [address] [place] [address] Dr. Joe Shea Eosinophils/100 WBC (Bld) 2.6 % Normal 0.9-7.0 [facility] Comment on above: Performed By: #### C BC #### [facility] [address] [place] [address] Dr. Joe Shea Erythrocyte distribution width (RBC) [Ratio] 13.1 % Normal 11.0-15.0 [facility] Comment on above: Performed By: #### C BC #### [facility] [address] [place] [address] Dr. Joe Shea Hematocrit (Bld) [Volume fraction] 38.2 % Normal 36.0-48.0 [facility] Comment on above: Performed By: #### C BC #### [facility] [address] [place] [address] Dr. Joe Shea Hemoglobin (Bld) [Mass/Vol] 12.3 g/dL Normal 12.0-16.0 [facility] Comment on above: Performed By: #### C BC #### [facility] [address] [place] [address] Dr. Joe Shea IG # 0.01 10e3/ul Normal 0.00-0.03 [facility] Comment on above: Performed By: #### C BC #### [facility] [address] [place] [address] Dr. Joe Shea IG % 0.2 % Normal 0.0-0.5 [facility] Comment on above: Performed By: #### C BC #### [facility] [address] [place] [address] Dr. Joe Shea LYMPH # 1.7 103/ul Normal 1.2-3.8 [facility] Comment on above: Performed By: #### C BC #### [facility] [address] [place] [address] Dr. Joe Shea Lymphocytes/100 WBC (Bld) 29.2 % Normal 20.5-60.0 [facility] Comment on above: Performed By: #### C BC #### [facility] [address] [place] [address] Dr. Joe Shea MANUAL DIFF REQ NO Normal [facility] Comment on above: Performed By: #### C BC #### [facility] [address] [place] [address] Dr. Joe Shea MCH (RBC) [Entitic mass] 28.4 pg Normal 26.7-34.0 [facility] Comment on above: Performed By: #### C BC #### [facility] [address] [place] [address] Dr. Joe Shea MCHC (RBC) [Mass/Vol] 32.2 g/dL Normal 29.9-35.2 [facility] Comment on above: Performed By: #### C BC #### [facility] [address] [place] [address] Dr. Joe Shea MCV (RBC) [Entitic vol] 88.2 fL Normal 81.0-99.0 [facility] Comment on above: Performed By: #### C BC #### [facility] [address] [place] [address] Dr. Joe Shea MONO # 0.5 103/ul Normal 0.3-0.8 [facility] Comment on above: Performed By: #### C BC #### [facility] [address] [address] [address] Joe Shea Monocytes/100 WBC (Bld) 8.2 % Normal 1.7-12.0 [facility] Comment on above: Performed By: #### C BC #### [facility] [address] [address] [address] Joe Shea NEUT # 3.4 103/ul Normal 1.4-6.5 [facility] Comment on above: Performed By: #### C BC #### [facility] [address] [address] [address] Joe Shea Neutrophils/100 WBC (Bld) 58.9 % Normal 43.0-75.0 [facility] Comment on above: Performed By: #### C BC #### [facility] [address] [place] [address] Dr. Joe Shea Platelet mean volume (Bld) [Entitic vol] 11.5 fL Normal 9.5-13.5 [facility] Comment on above: Performed By: #### C BC #### [facility] [address] [place] [address] Dr. Joe Shea PLT 233 103/ul Normal 150-450 [facility] Comment on above: Performed By: #### C BC #### [facility] [address] [place] [address] Dr. Joe Shea RBC 4.33 106/ul Normal 4.20-5.40 [facility] Comment on above: Performed By: #### C BC #### [facility] [address] [place] [address] Dr. Joe Shea WBC 5.8 103/ul Normal 4.0-11.0 [facility] Comment on above: Performed By: #### C BC #### [facility] [address] [place] [address] Dr. Joe Shea GLYCOHEMOGLOBIN A1Con 2021 ADA RECOMMENDATION SEE BELOW Normal [facility] Comment on above: Result Comment: ADA RECOMMENDED LIMIT 4.0 - 6.0 ADA THERAPEUTIC TARGET < 7.0 ACTION SUGGESTED > 7.0 Performed By: #### C CARLYN DE JESUS AMY #### [facility] [address] [place] [address] Dr. Joe Shea Glucose [Mass/Vol] 105 mg/dL Normal [facility] Comment on above: Performed By: #### C CARLYN DE JESUS AMY #### [facility] [address] [place] [address] Dr. Joe Shea HbA1c (Bld) [Mass fraction] 5.3 % Normal 4.5-6.2 [facility] Comment on above: Performed By: #### C CARLYN DE JESUS AMY #### [facility] [address] [place] [address] Dr. Joe Shea TSHon 04-05-2022 TSH 0.609 uIU/mL Normal 0.358-3.740 [facility] Comment on above: Performed By: #### C BC #### [facility] [address] [place] [address] Dr. Joe Shea US PELVIS AND TRANSVAGon US PELVIS AND TRANSVAG EXAMINATION: US PELVIS AND TRANSVAG HISTORY: Cyst of ovary COMPARISON: 11/14/2021 FINDINGS: The uterus is normal in size, contour and myometrial echotexture measuring 7.9 x 4.6 x 3.8 cm, anteflexed. No focal myometrial mass The endometrium measures 8 mm, normal. Area of hypoechogenicity in the cervix measuring 1.3 cm, increased acoustic through transmission suggests a complex cyst. The right ovary measures 3.2 x 2.0 x 2.3 cm. Normal color and Doppler flow. Normal follicles. The left ovary measures 4.2 x 3.1 x 2.1 cm. Normal color Doppler flow. Complex cystic area measuring 2.2 x 1.6 x 1.4 cm IMPRESSION: 2.2 cm complex left ovarian cyst Electronically authenticated by: ANGIE MEJIA Date: 2022-04-05 17:23 Normal [facility] AMYLASEon 03-10-2022 Amylase [Catalytic activity/Vol] 64 U/L Normal 25-115 [facility] Comment on above: Performed By: #### C BC #### [facility] [address] [address] [address] Joe Shea CBC AUTO DIFFon 03-10-2022 BASO # 0.1 103/ul Normal 0.0-0.1 [facility] Comment on above: Performed By: #### C BC #### [facility] [address] [address] [address] Joe Shea Basophils/100 WBC (Bld) 0.6 % Normal 0.2-2.0 [facility] Comment on above: Performed By: #### C BC #### [facility] [address] [place] [address] Dr. Joe Shea EO # 0.3 103/ul Normal 0.0-0.7 [facility] Comment on above: Performed By: #### C BC #### [facility] [address] [place] [address] Dr. Joe Shea Eosinophils/100 WBC (Bld) 1.7 % Normal 0.9-7.0 [facility] Comment on above: Performed By: #### C BC #### [facility] [address] [place] [address] Dr. Joe Shea Erythrocyte distribution width (RBC) [Ratio] 13.1 % Normal 11.0-15.0 [facility] Comment on above: Performed By: #### C BC #### [facility] [address] [place] [address] Dr. Joe Shea Hematocrit (Bld) [Volume fraction] 37.9 % Normal 36.0-48.0 [facility] Comment on above: Performed By: #### C BC #### [facility] [address] [place] [address] Dr. Joe Shea Hemoglobin (Bld) [Mass/Vol] 12.2 g/dL Normal 12.0-16.0 [facility] Comment on above: Performed By: #### C BC #### [facility] [address] [place] [address] Dr. Joe Shea IG # 0.05 10e3/ul Critically high 0.00-0.03 [facility] Comment on above: Performed By: #### C BC #### [facility] [address] [place] [address] Dr. Joe Shea IG % 0.3 % Normal 0.0-0.5 [facility] Comment on above: Performed By: #### C BC #### [facility] [address] [place] [address] Dr. Joe Shea LYMPH # 4.7 103/ul Critically high 1.2-3.8 [facility] Comment on above: Performed By: #### C BC #### [facility] [address] [place] [address] Dr. Joe Shea Lymphocytes/100 WBC (Bld) 28.3 % Normal 20.5-60.0 [facility] Comment on above: Performed By: #### C BC #### [facility] [address] [place] [address] Dr. Joe Shea MANUAL DIFF REQ NO Normal [facility] Comment on above: Performed By: #### C BC #### [facility] [address] [place] [address] Dr. Joe Shea MCH (RBC) [Entitic mass] 27.9 pg Normal 26.7-34.0 [facility] Comment on above: Performed By: #### C BC #### [facility] [address] [place] [address] Dr. Joe Shea MCHC (RBC) [Mass/Vol] 32.2 g/dL Normal 29.9-35.2 [facility] Comment on above: Performed By: #### C BC #### [facility] [address] [place] [address] Dr. Joe Shea MCV (RBC) [Entitic vol] 86.5 fL Normal 81.0-99.0 [facility] Comment on above: Performed By: #### C BC #### [facility] [address] [place] [address] Dr. Joe Shea MONO # 0.9 103/ul Critically high 0.3-0.8 [facility] Comment on above: Performed By: #### C BC #### [facility] [address] [address] [address] Joe Shea Monocytes/100 WBC (Bld) 5.5 % Normal 1.7-12.0 [facility] Comment on above: Performed By: #### C BC #### [facility] [address] [address] [address] Joe Shea NEUT # 10.5 103/ul Critically high 1.4-6.5 [facility] Comment on above: Performed By: #### C BC #### [facility] [address] [place] [address] Dr. Joe Shea Neutrophils/100 WBC (Bld) 63.6 % Normal 43.0-75.0 [facility] Comment on above: Performed By: #### C BC #### [facility] [address] [place] [address] Dr. Joe Shea Platelet mean volume (Bld) [Entitic vol] 11.1 fL Normal 9.5-13.5 [facility] Comment on above: Performed By: #### C BC #### [facility] [address] [place] [address] Dr. Joe Shea PLT 428 103/ul Normal 150-450 [facility] Comment on above: Performed By: #### C BC #### [facility] [address] [place] [address] Dr. Joe Shea RBC 4.38 106/ul Normal 4.20-5.40 [facility] Comment on above: Performed By: #### C BC #### [facility] [address] [place] [address] Dr. Joe Shea WBC 16.6 103/ul Critically high 4.0-11.0 [facility] Comment on above: Performed By: #### C BC #### [facility] [address] [place] [address] ABD/PELV W CONon 03-10-20 CT ABD/PELV W CON EXAMINATION: CT ABD/PELV W CON, 03/10/2022 12:26 PM PDT HISTORY: UNSPECIFIED ABDOMINAL PAIN COMPARISON: 04/02/2021 TECHNIQUE: CT scan of the abdomen and pelvis was performed with IV contrast. CT dose reduction technique was used, including Automated Exposure Control. FINDINGS: Lung: No significant finding. Liver: Heterogeneous appearance of the liver. No contrast within the hepatic veins. Gallbladder: No significant finding. Spleen: No significant finding. Pancreas: No significant finding. Adrenal glands: No significant finding. Kidneys, ureters and bladder: Punctate nonobstructive right renal calculi. Bowel: No significant finding. Peritoneum/retroper itoneum: No significant finding. Lymph nodes: No significant finding. Vessels: No significant finding. Body wall: No significant finding. Reproductive: Right-sided corpus luteal cyst. Small amount of free fluid in the pelvis. Bones: No significant finding. IMPRESSION: Diffuse abnormal appearance of the liver, potentially related to contrast timing, correlate for hepatitis. Punctate nonobstructive right renal calculi. Ruptured right-sided corpus luteal cyst and physiologic free fluid. Electronically authenticated by: MURALI STRANGE Date: 2022-03-10 16:59 Normal [facility] LIPASEon 03-10-2022 Lipase [Catalytic activity/Vol] 81.0 U/L Normal 73.0-393.0 [facility] Comment on above: Performed By: #### C BC #### [facility] [address] [place] [address] Dr. Joe Shea LIVER PROFILEon 03-10-2022 Albumin [Mass/Vol] 4.2 g/dL Normal 3.4-5.0 [facility] Comment on above: Performed By: #### C BC #### [facility] [address] [place] [address] Dr. Joe Shea Albumin/Globulin [Mass ratio] 1.4 {ratio} Normal [facility] Comment on above: Performed By: #### C BC #### [facility] [address] [place] [address] Dr. Joe Shea ALP [Catalytic activity/Vol] 50 U/L Normal 46-116 [facility] Comment on above: Performed By: #### C BC #### [facility] [address] [address] [address] Joe Shea ALT [Catalytic activity/Vol] 14 U/L Normal 14-59 [facility] Comment on above: Performed By: #### C BC #### [facility] [address] [address] [address] Joe Shea AST [Catalytic activity/Vol] 13 U/L Critically low 15-37 [facility] Comment on above: Performed By: #### C BC #### [facility] [address] [address] [address] Joe Shea BILI, CONJUGATED 0.1 mg/dL Normal 0.0-0.2 [facility] Comment on above: Performed By: #### C BC #### [facility] [address] [address] [address] Joe Shea Bilirubin [Mass/Vol] 0.3 mg/dL Normal 0.2-1.0 [facility] Comment on above: Performed By: #### C BC #### [facility] [address] [address] [address] Joe Shea Globulin (S) [Mass/Vol] 3.1 g/dL [facility] Comment on above: Performed By: #### C BC #### [facility] [address] [address] [address] Joe Shea Protein [Mass/Vol] 7.3 g/dL Normal 6.4-8.2 [facility] Comment on above: Performed By: #### C BC #### [facility] [address] [address] [address] Joe Shea PREG HCG QUALon 03-10-2022 , QUAL Negative Normal NEGATIVE [facility] Comment on above: Performed By: #### L BCLH #### [facility] [address] [address] [address] Joe Shea PROF CHEM 8 (BAS METB)on Anion gap [Moles/Vol] 17.6 mmol/L Normal [facility] Comment on above: Performed By: #### C MP, LIPA, NESTOR #### [facility] [address] [address] [address] Joe Shea Calcium [Mass/Vol] 9.0 mg/dL Normal 8.5-10.1 [facility] Comment on above: Performed By: #### C CARLYN DE JESUS AMY #### [facility] [address] [place] [address] Dr. Joe Shea Chloride [Moles/Vol] 102 mmol/L Normal 98-107 [facility] Comment on above: Performed By: #### C CARLYN DE JESUS NESTOR #### [facility] [address] [place] [address] Dr. Joe Shea CO2 [Moles/Vol] 23.4 mmol/L Normal 21.0-32.0 [facility] Comment on above: Performed By: #### C CARLYN DE JESUS AMY #### [facility] [address] [place] [address] Dr. Joe Shea Creatinine [Mass/Vol] 0.84 mg/dL Normal 0.55-1.02 [facility] Comment on above: Performed By: #### C CARLYN DE JESUS, NESTOR #### [facility] [address] [place] [address] Dr. Joe Shea EGFR-AF SPANISH >60 Normal >=60 [facility] Comment on above: Performed By: #### C CARLYN DE JESUS AMY #### [facility] [address] [place] [address] Dr. Joe Shea EGFR-NON AF SPANISH >60 Normal >=60 [facility] Comment on above: Performed By: #### C CARLYN DE JESUS, NESTOR #### [facility] [address] [place] [address] Dr. Joe Shea Glucose [Mass/Vol] 149 mg/dL Critically high 74-106 [facility] Comment on above: Performed By: #### C CARLYN DE JESUS, NESTOR #### [facility] [address] [place] [address] Dr. Joe Shea Potassium [Moles/Vol] 2.9 mmol/L Critically low 3.5-5.1 [facility] Comment on above: Performed By: #### C CARLYN DE JESUS, NESTOR #### [facility] [address] [place], [place] [id number] Dr. Joe Shea Sodium [Moles/Vol] 139 mmol/L Normal 136-145 [facility] Comment on above: Performed By: #### C CARLYN DE JESUS AMY #### [facility] [address] [address] [address] Joe Shea Urea nitrogen [Mass/Vol] 11.0 mg/dL Normal 7.0-18.0 [facility] Comment on above: Performed By: #### C CARLYN DE JESUS AMY #### [facility] [address] [address] [address] Joe Shea Urea nitrogen/Creatinine [Mass ratio] 13.1 mg/mg Normal [facility] Comment on above: Performed By: #### C CARLYN DE JESUS AMY #### [facility] [address] [address] [address] Joe Shea XR CSPINE 2_3 VIEWSon 2021 XR CSPINE 2_3 VIEWS EXAMINATION: XR CSPINE 2_3 VIEWS HISTORY: Neck pain COMPARISON: No relevant comparison available. FINDINGS: BONES: Normal. No significant spondylosis, scoliosis, fracture, or visible bony lesion. DISC SPACES: Normal. No significant disc height narrowing, subluxation, or endplate abnormality. PARASPINOUS: Negative. No paraspinous abnormality is seen. OTHER: Negative. IMPRESSION: No significant abnormality Electronically authenticated by: ANGIE MEJIA Date: 2022-01-18 08:03 Normal [facility] C BP Strepon 12-23-2019 C BP Strep This is strictly a screening test for Strep Group A( Streptococcus pyogenes). No other pathogens will be noted. Final Backup plate negative for Group A Streptococus Resulted at [facility] Normal [facility] Comment on above: Performed By: #### B P #### [facility] (DEFAULT) [address] [place] [address] [facility] [address] [place] [address] Ambulatory Patient Education on 12-21-2019 Ambulatory Patient Education Patient Education Materials Name: Racheal Louise Current Date: 12/21/2019 14:47:45 [place] : 2000 The following sheet(s) are the Patient Education Leaflets for Racheal Louise Ambulatory Pharyngitis: Presumed Strep (Child) Pharyngitis is a sore throat. Sore throat is a common condition in children. It can be caused by an infection with the bacterium streptococcus. This is commonly known as strep throat. Strep throat starts suddenly. Symptoms include a red, swollen throat and swollen lymph nodes, which make it painful to swallow. Red spots may appear on the roof of the mouth. Some children will be flushed and have a fever. Young children may not show that they feel pain. But they may refuse to eat or drink, or drool a lot. Strep throat is diagnosed with a rapid test or a throat culture. If the rapid test results are unclear, your child will need a throat culture. Results from the culture may take up to 2 days. This waiting period may be hard for you and your child. The doctor may prescribe medicines to treat fever and pain. Because strep throat is very contagious, your child must stay at home until the diagnosis is known. If a strep infection is confirmed, your child?s healthcare provider will prescribe antibiotic medicine. This may be given by injection or pills. Children with strep throat are contagious until they have been taking antibiotic medicine for 24 hours. Home care Medicines Follow these guidelines when giving your child medicine at home: ? If your child has pain or fever, you can give him or her medicine as advised by your child's healthcare provider. ? Don't give your child any other medicine without first asking the provider. Follow these tips when giving fever medicine to a usually healthy child: ? Don?t give ibuprofen to children younger than 6 months old. Also don?t give ibuprofen to an older child who is vomiting constantly and is dehydrated. ? Read the label before giving fever medicine. This is to make sure that you are giving the right dose. The dose should be right for your child?s age and weight. ? If your child is taking other medicine, check the list of ingredients. Look for acetaminophen or ibuprofen. If the medicine contains either of these, tell your child?s healthcare provider before giving your child the medicine. This is to prevent a possible overdose. ? If your child is younger than 2 years, talk with your child?s healthcare provider before giving any medicines to find out the right medicine to use and how much to give. ? Don?t give aspirin to a child younger than 19 years old who is ill with a fever. Aspirin can cause serious side effects such as liver damage and Marisol syndrome. Although rare, Marisol syndrome is a very serious illness usually found in children younger than age 15. The syndrome is closely linked to the use of aspirin or aspirin-containing medicines during viral infections. General care ? Keep your child home from school or day care until the provider tells you whether your child has strep throat. Strep throat is very contagious. If strep throat is confirmed ? The healthcare provider will prescribe antibiotics. Follow all instructions for giving this medicine to your child. Make sure your child takes the medicine as directed until it is gone. You should not have any left over. ? Limit your child's contact with others until he or she is no longer contagious. This is 24 hours after starting antibiotics or as advised by your child?s provider. ? Tell people who may have had contact with your child about his or her illness. This may include school officials and daycare center workers. ? Wash your hands with warm water and soap before and after caring for your child. This is to help prevent the spread of infection. Others should do the same. ? Give your child plenty of time to rest. ? Encourage your child to drink liquids. ? Older children may prefer ice chips, cold drinks, frozen desserts, or popsicles. ? Older children may also like warm chicken soup or beverages with lemon and honey. Don?t give honey to a child younger than 1 year old. ? Don?t force your child to eat. If your child feels like eating, don?t give him or her salty or spicy foods. These can irritate the throat. ? Older children may gargle with warm salt water to ease throat pain. Have your child spit out the gargle afterward and not swallow it. Follow-up care Follow up with your child?s healthcare provider, or as directed. When to seek medical advice Call your child's healthcare provider right away if any of these occur: ? Fever (see Fever and children, below) ? Symptoms don?t get better after taking prescribed medicine or seem to be getting worse ? New or worsening ear pain, sinus pain, or headache ? Painful lumps in the back of neck ? Lymph nodes are getting larger ? Your child can?t swallow liquids, has lots of drooling, or can?t open his or her mouth wide because of throat pain ? Signs of dehydration. These include very dark urine or no urine, sunken eyes, and dizziness. ? Noisy breathing ? Muffled voice ? New rash Call 911 Call 911 if your child has any of these: ? Fever and your child has been in a very hot place such as an overheated car ? Trouble breathing ? Confusion ? Feeling drowsy or having trouble waking up ? Unresponsive ? Fainting or loss of consciousness ? Fast (rapid) heart rate ? Seizure ? Stiff neck Fever and children Always use a digital thermometer to check your child?s temperature. Never use a mercury thermometer. For infants and toddlers, be sure to use a rectal thermometer correctly. A rectal thermometer may accidentally poke a hole in (perforate) the rectum. It may also pass on germs from the stool. Always follow the product maker?s directions for proper use. If you don?t feel comfortable taking a rectal temperature, use another method. When you talk to your child?s healthcare provider, tell him or her which method you used to take your child?s temperature. Here are guidelines for fever temperature. Ear temperatures aren?t accurate before 6 months of age. Don?t take an oral temperature until your child is at least 4 years old. under 3 months old: ? Ask your child?s healthcare provider how you should take the temperature. ? Rectal or forehead (temporal artery) temperature of 100.4?F (38?C) or higher, or as directed by the provider ? Armpit temperature of 99?F (37.2?C) or higher, or as directed by the provider Child age 3 to 36 months: ? Rectal, forehead (temporal artery), or ear temperature of 102?F (38.9?C) or higher, or as directed by the provider ? Armpit temperature of 101?F (38.3?C) or higher, or as directed by the provider Child of any age: ? Repeated temperature of 104?F (40?C) or higher, or as directed by the provider ? Fever that lasts more than 24 hours in a child under 2 years old. Or a fever that lasts for 3 days in a child 2 years or older. ? 6067-[address] [employer] [place] [id number]. All rights reserved. This information is not intended as a substitute for professional medical care. Always follow your healthcare professional's instructions. Strep today is Negative. Will send for culture to [facility] and notify if it returns positive. Take medication as prescribed. Discontinue for a negative strep culture. Discard and replace toothbrush after taking antibiotics for at least 24 hours. May use nlxu-qrl-tcsltbn Tylenol and Motrin for pain relief. May use of henk-xte-cujsxfd Chloraseptic throat spray, lozenges, cool or warm fluids for throat pain relief. Gargle with warm salt water 2-3 times daily as needed. Increase water intake and rest. Follow-up with primary care provider should symptoms persist beyond 7-10 days. Go to emergency department for any change in or worsening of symptoms. Ordered: azithromycin, 1 packets, Oral, As Indicated, as directed on package labeling, X 5 days, # 6 tabs, 0 Refill(s), 12/26/19 14:42:00 EDT, Pharmacy: [id number] Normal [facility] OR Trackon 12-21-2019 BVO Red Swab # 1 [facility] Comment on above: Performed By: #### [facility] Tracking Order #### [facility] [address] [place] [address] Urgent Care Office/Clinic No sabiha 12-21-2019 Urgent Care Office/Clinic Note Chief Complaint Patient stated she has had a sore throat for three day. Patient stated she took her friends ATB last night. Unsure what the ATB was called. History of Present Illness Patient is a 19-year-old female who presents today with a chief complaint of sore throat for the last 3 days. Sore throat is constant, worse on the left side and has been worsening. She rates her pain a 5 out of 10 in severity. The pain radiates into her left ear. She has been taking Tylenol without relief. It is difficult for her to swallow but she has been able to eat and drink without difficulty. She reports chills but no documented fevers. No known sick contacts. Yesterday she took one tab of her friends antibiotics prescribed by dermatology, doesn't remember the name. Review of Systems General: No fever. + chills HEENT: No visual changes, blurred vision, or double vision. No eye pain. No ear pain. No change in hearing or tinnitus. No nasal drainage and congestion. No sinus pressure. + sore throat. Pulmonary: No cough GI: No nausea, vomiting or diarrhea. No abdominal pain. Neuro: No headache. No dizziness. Physical Exam Vitals & Measurements T: 37.1 ?C (Oral) RR: 18 BP: 129/69 SpO2: 98 HT: 158 cm WT: 46 kg DOSE WT: 46 kg BMI: 18.43 General: well-developed, in no acute distress. Neuro: Alert and oriented. Gait is steady. Speech is clear and appropriate. Eyes: PERRL. Conjunctiva clear without erythema or drainage. Nose: No erythema, edema, drainage. Ears: Canals visualized without any erythema, edema, or discharge. TM's visible and intact, pearly canela. No erythema, edema, or presence of a fluid line bilaterally. Good light reflex. Pharynx: Oropharynx moist and erythematous. Tonsils 2+ with purulent exudate bilaterally. Uvula midline. No lesions or ulcerations. Mucous membranes moist. Neck: Trachea midline. Bilateral submandibular and anterior cervical lymphadenopathy. No respiratory distress. Skin: Warm, dry, intact. No rashes, lesions, or open wounds. Rapid strep POC: negative. Swab will be sent to [facility] for culture. We will call if positive and treat appropriately. Additional Vitals Body Mass Index Measured: 18.43 kg/m2 Peripheral Pulse Rate: 111 bpm High Assessment/Plan 1. Sore throat Strep today is Negative. Will send for culture to [facility] and notify if it returns positive. Take medication as prescribed. Discontinue for a negative strep culture. Discard and replace toothbrush after taking antibiotics for at least 24 hours. May use cjkl-eit-dnmxeyg Tylenol and Motrin for pain relief. May use of qeve-hfw-fchnata Chloraseptic throat spray, lozenges, cool or warm fluids for throat pain relief. Gargle with warm salt water 2-3 times daily as needed. Increase water intake and rest. Follow-up with primary care provider should symptoms persist beyond 7-10 days. Go to emergency department for any change in or worsening of symptoms. Ordered: azithromycin, 1 packets, Oral, As Indicated, as directed on package labeling, X 5 days, # 6 tabs, 0 Refill(s), 12/26/19 14:42:00 EDT, Pharmacy: [id number] Physician Comments Centor criteria reviewed. We will treat patient with a Z-Elier and call if her culture is positive or negative. Patient recommended to discontinue Z-Elier for a negative strep culture. Reviewed assessment and plan as explained. Patient verbalized understanding and agreed with plan. Answered all questions prior to discharge. Problem List/Past Medical History Ongoing No qualifying data Historical No qualifying data Procedure/Surgical History Uterus surgery Medications Azithromycin 5 Day Dose Pack 250 mg oral tablet, 1 packets, Oral, As Indicated Allergies No Known Allergies Social History Tobacco 10 or more cigarettes (1/2 pack or more)/day in last 30 days Use:. Family History Family history is unknown Diagnostic Results No qualifying data available (XRay) No qualifying data available (CT) No qualifying data available (Ultrasound) No qualifying data available (MRI) Electronically signed by Rosa Fitch 12/21/19 15:01 EDT Normal [facility] Vital Signs Date Time Vital Sign Value Performing Clinician Facility 03-28-2023 10:16-0400 Body height 157.48 cm Referring Provider Unknown [id number] [address] [place] Work Phone: 03-28-2023 10:16-0400 Body mass index (BMI) [Ratio] 23.78 kg/m2 Referring Provider Unknown [id number] [address] [place] Work Phone: 03-28-2023 10:16-0400 Body surface area Derived from formula 1.59 m2 Referring Provider Unknown [id number] [address] [place] Work Phone: 03-28-2023 10:16-0400 Body weight 58.97 kg Referring Provider Unknown [id number] [address] [place] Work Phone: 03-28-2023 10:16-0400 Diastolic blood pressure 65 mm[Hg] Referring Provider Unknown [id number] [address] [place] Work Phone: 03-28-2023 10:16-0400 Heart rate 96 /min Referring Provider Unknown [id number] [address] [place] Work Phone: 03-28-2023 10:16-0400 Systolic blood pressure 107 mm[Hg] Referring Provider Unknown [id number] [address] [place] Work Phone: 03-28-2023 10:16-0400 0 1 Referring Provider Unknown [id number] [address] [place] Work Phone: Comment on above: [employer] 02-14-2023 09:15-0400 Body height 154.94 cm iFlippo Larson Other [employer] Other 02-14-2023 09:15-0400 Body mass index (BMI) [Ratio] 21.73 kg/m2 Filippo Larson Other [employer] Other 02-14-2023 09:15-0400 Body weight 52.16 kg Filippo Larson Other [employer] Other 02-14-2023 09:15-0400 Diastolic blood pressure 68 mm[Hg] Filippo Larson Other [employer] Other 02-14-2023 09:15-0400 Systolic blood pressure 96 mm[Hg] Filippo Larson Other [employer] Other 07-17-2022 14:26-0500 Blood Pressure Location Mayito LIM [facility] [place] 07-17-2022 14:26-0500 Diastolic blood pressure 70 mm[Hg] Mayito LIM [facility] [place] 07-17-2022 14:26-0500 Heart rate 70 /min Mayito LIM [facility] [place] 07-17-2022 14:26-0500 Respiratory rate 16 /min Mayito LIM [facility] [place] 07-17-2022 14:26-0500 Systolic blood pressure 102 mm[Hg] Mayito LIM [facility] [place] 03-09-2020 20:24-0400 BP Diastolic 61 mm[Hg] PHYSICIAN NO [facility] 03-09-2020 20:24-0400 BP Systolic 117 mm[Hg] PHYSICIAN NO [facility] 03-09-2020 20:24-0400 Pulse (Heart Rate) 85 /min PHYSICIAN NO [facility] 03-09-2020 20:24-0400 Pulse Oximetry 100 % PHYSICIAN NO [facility] 03-09-2020 20:24-0400 Respiratory Rate 24 /min PHYSICIAN NO [facility] 03-09-2020 18:49-0400 BMI (Body Mass Index) 20 kg/m2 PHYSICIAN NO [facility] 03-09-2020 18:49-0400 Body Temperature 98.7 [degF] PHYSICIAN NO [facility] 03-09-2020 18:49-0400 Body weight 49.7 kg PHYSICIAN NO [facility] 03-09-2020 18:49-0400 Height 157.48 cm PHYSICIAN NO [facility] Encounters Encounter Date Encounter Type Care Provider Facility Start: 06-11-2023 End: 06-11-2023 ambulatory NESTOR PRICE Not Available Start: 05-28-2023 End: 05-28-2023 ambulatory EN QUINTANA Not Available Start: 05-14-2023 End: 05-14-2023 ambulatory NESTOR PRICE Not Available Start: 03-28-2023 Office consultation new/estab patient 80 min Referring Provider Unknown [id number] [address] [place] Work Phone: Start: 03-28-2023 Patient encounter procedure Referring Provider Unknown [id number] [address] [place] Work Phone: Start: 03-28-2023 ambulatory Ramakrishna Schwarz Facility :[facility] Start: 02-14-2023 End: 02-14-2023 ambulatory Filippo Larson Other [employer] Other Start: 02-14-2023 Office outpatient vi sit 15 minutes Filippo Larson [facility] Start: 11-28-2022 End: 11-28-[address] SUKI CONDE Facility:[facility] Start: 11-28-[address] SUKI CONDE Facil ity:[facility] Start: 10-28-2022 End: 10-28-[address] SUKI CONDE Facility:[facility] Start: 09-29-2022 End: 09-29-[address] SUKI CONDE Facility:[facility] Start: 09-19-2022 End: 09-20-[address] SUKI CONDE Facility:[facility] Start: 08-15-[address] SUKI CONDE Facil ity:[facility] Start: 07-17-2022 End: 07-18-2022 ambulatory SUKI CONDE PROVIDER Facility:[facility] Start: 07-17-2022 End: 07-17-2022 Patient encounter procedure Mayito LIM [facility] Start: 07-10-2022 End: 07-10-[address] EN QUINTANA . Facility:[facility] Start: 07-08-2022 Encounter for preprocedural laboratory examination DR EN QUINTANA . [facility] Start: 07-06-2022 End: 07-07-[address] EN QUINTANA . Facility:[facility] Start: 07-06-2022 End: 07-07-2022 Encounter for preprocedural laboratory examination DR EN QUINTANA . Facility:[facility] Start: 06-15-2022 End: 06-16-[address] EN QUINTANA . Facility:[facility] Start: 06-11-2022 End: 06-12-2022 ambulatory JUANJOSE VIRAMONTES Facility:[facility] Start: 06-08-2022 ambulatory SUKI CONDE PROVIDER Facility:[facility] [place] Start: 05-31-2022 End: 06-01-[address] EN QUINTANA . Facility:[facility] Start: 05-29-2022 End: 05-29-2022 ambulatory HARMAN ADAMS Facility:[facility] Start: 05-23-2022 End: 05-23-2022 ambulatory MARYURI KAPLAN . Facility:[facility] Start: 05-22-2022 End: 05-22-2022 ambulatory HARMAN ADAMS Facility:[facility] Start: 05-21-2022 End: 05-22-[address] SHIRLEY SHEPHERD Facility:[facility] Start: 05-07-2022 End: 05-08-[address] EN QUINTANA . Facility:[facility] Start: 04-09-2022 End: 04-10-[address] EN QUINTANA . Facility:[facility] Start: 04-05-2022 End: 04-06-[address] EN QUINTANA . Facility:[facility] Start: 03-10-2022 End: 03-10-[address] SUKI CONDE Facility:[facility] Start: 03-10-2022 End: 03-10-[address] SUKI CONDE Facility:[facility] Start: 01-17-2022 End: 01-18-[address] SUKI CONDE Facility:[facility] Start: 03-09-2020 End: 03-09-2020 Emergency department patient visit PHYSICIAN KIMI [facility] Start: 04-27-2014 End: 04-27-2014 Telephone encounter Noa Dimas MD Work Phone: Reproductive Endocrinology Infertility Procedures Date Procedure Procedure Detail Performing Clinician Colonoscopy Mayito LIM Dilation and curettage Temo LIM Dilation and curettage Temo LIM Esophagogastroduodenoscopy Arianna LIM Excision of cyst of ovary Juana LIM [facility] Mayito LIM Plan of Treatment Date Care Activity Detail Author Start: 03-01-2021 Influenza vaccination INFLUENZ A (Season Ended) [facility] Start: 02-28-2020 PAP TESTING PAP TESTING [facility] Start: 2018 Urine microalbumin profile DTAP,TDAP,TD (1 - Tdap) [facility] Start: 2017 CHLAMYDIA SCREENING (18-24) CHLAMYDIA SCREENING (18-24) [facility] Start: 2017 GC (GONORRHEA) SCREE KRUNAL (18-24) GC (GONORRHEA) SCREENING (18-24) [facility] Start: 2017 HEPATITIS C SCREENING HEPATITIS C SC REENING [facility] Start: 2017 HIV SCREENING HIV SCREENING [facility] Start: 2011 Adult depression screening assessment DEPRESSION SCREENING [facility] Start: 2010 HPV VACCINE (1 - 2-d ose series) HPV VACCINE (1 - 2-dose series) [facility] Patient Education Anxiety (ED) [facility] Patient referral [facility] Immunizations Immunization Date Immunization Notes Care Provider Fa juanc NEGATED: Highlighted row has not occurred!07-17-2022 influenza virus vaccine, unspecified formulation Mayito LIM [facility] [place] Payers Date Payer Category Payer Unknown [facility] CE PLAN [employer] P[employer] [id number] 2013-2014 PPO [id number] 1999 Unknown [id number] 2.16.840.1.358461.3.579.2.727 1999 Unknown [id number] 2.16.840.1.348013.3.579.2.727 1999 Unknown [id number] 2.16.840.1.366856.3.579.2.593 1999 Unknown [id number] 2.16.840.1.985921.3.579.2.593 1999 Unknown [id number] 2.16.840.1.319683.3.579.2.593 1999 Unknown [id number] 2.16.840.1.612201.3.579.2.593 1999 Unknown [id number] 2.16.840.1.552300.3.579.2.593 1999 Unknown [id number] 2.16.840.1.302744.3.579.2.593 1999 Unknown [id number] 2.16.840.1.370521.3.579.2.593 1999 Unknown [id number] 2.16.840.1.777871.3.579.2.593 1999 Unknown [id number] 2.16.840.1.736189.3.579.2.593 1999 Unknown [id number] 2.16.840.1.964594.3.579.2.593 1999 Unknown [id number] 2.16.840.1.388272.3.579.2.593 1999 Unknown [id number] 2.16.840.1.063350.3.579.2.593 1999 Unknown [id number] 2.16.840.1.604001.3.579.2.593 1999 Unknown [id number] 2.16.840.1.998473.3.579.2.593 1999 Unknown [id number] 2.16.840.1.235692.3.579.2.593 1999 Unknown [id number] 2.16.840.1.743832.3.579.2.593 1999 Unknown [id number] 2.16.840.1.077238.3.579.2.593 1999 Unknown [id number] 2.16.840.1.858474.3.579.2.593 1999 Unknown [id number] 2.16.840.1.848705.3.579.2.593 1999 Unknown [id number] 2.16.840.1.008513.3.579.2.593 1999 Unknown [id number] 2.16.840.1.741098.3.579.2.593 1999 Unknown [id number] 2.16.840.1.443188.3.579.2.356 1999 Unknown [id number] 2.16.840.1.468663.3.579.2.1259 1999 Unknown [id number] 2.16.840.1.730505.3.579.2.1259 1999 Unknown [id number] 2.16.840.1.965076.3.579.2.1259 1959 Unknown [id number] 1959 Unknown [id number] 1959 Unknown [id number] Self-pay Self Pay [id number] Unknown Self Pay [id number] Unknown [facility] Social History Date Type Detail Facility Start: 03-09-2020 Tobacco smoking status [facility] Smoker (finding) [facility] Start: 2000 Sex Assigned At Female [facility] Start: 04-12-2014 Tobacco smoking status [facility] Never smoker [facility] Start: 04-12-2014 Tobacco use and exposure Never used [facility] Start: 04-12-2014 Alcohol intake Current non-dr sql manager of alcohol (finding) [facility] Start: 2000 Sex Assigned At Not on file [facility] Start: 07-17-2022 Tobacco smoking status Ex-smoker (finding) [facility] Tobacco smoking status Smokeless tobacco user within last 30 days [facility] Sex Assigned At Female [facility] No alcohol use No alcohol use [id number] [address] [place] Work Phone: NEGATED: Highlighted row Denies History of domestic violence Denies History of domestic violence [id number] [address] [place] Work Phone: Goals Date Patient Goal Desired Activity /State Functional Status Date Assessment Result Facility 07-17-2022 Functional Status N/A [facility] Clinical Notes 04-27-2014 to 02-14-2023 Note Date & Type Note Facility 02-14-2023 Evaluation note Encounter Date Diagnosis Assessment Notes Jan, Irritable bowel syndrome with constipation (ICD-10 - K58.1) The patient is & has discontinued some medications because of this. She continues to use Miralax as needed. She was also advised that she can use peppermint oil for gas. Jan, GERD (gastroesophage al reflux disease) (ICD-10 - K21.9) The patient continues to use Protonix with no real complaints at this time. Jan, Nausea (ICD-10 - R11.0) The patient has been started on a Zofran pump by her OB & her nausea is under better control with this. The patient was advised that this can cause some increase in her constipation & she can continue the Miralax as needed. Retrun visit here in three months. [employer] Other 01-20-2023 NoteChief Complaint consultation for epigastric pain, abdominal cramping and bloating HPI Staff 22 year old female presents on consultation from Dr. Conde for intermittent burning epigastric and sharp/stabbing LUQ pain. Reports generalized abdominal cramping and bloating. Intermittent nausea and vomiting. Denies rectal pain or bleeding. Reports long standing history of constipation for which she takes stool softener. Reports colonoscopy completed several years ago at [facility] was normal. History of Present Illness 22 yo female with h/o bipolar disorder, anxiety, migraines, referred for intermittent epigastric and LUQ pain, burning, at times sharp/stabbing; occasional N/V; + boating; no food triggers, occurs celia without eating; no hematemesis or melena; no hematochezia, some constipation, improved with stool softeners; had [place] [facility]; abdominal operations significant for laparoscopy and ovarian cystectomy; no asa or NSAID use; on Protonix daily. no fmhx of GI malignancy or IBD; smokes and vapes daily. Review of Systems PHQ Score Initial Depression Screen Score: 0 ROS - Provider Constitutional: no fever, no sweats, no weight loss. Eyes: no glasses, no blurred vision, no visual loss. ENMT: no dentures, no hoarseness, no swallowing difficulties, no hearing loss, no ear infection(s),no nose bleeds. Cardiovascular: normal blood pressure, no chest pain, regular heartbeat, no heart murmur. Respiratory: no shortness of breath, no cough, no asthma, no wheezing. Gastrointestinal: no nausea, no vomiting, no diarrhea, no constipation, no blood in stool, no change in bowel habits, no abdominal pain, no hepatitis. Genitourinary: no kidney stones, no urine infection, no dysuria. Musculoskeletal: no pain, no weakness. Skin: no changing moles, no rash, no skin lumps. Neurologic: no seizures, no epilepsy, no headache. Psychiatric: no emotional or psychiatric problem. Heme/Lymph: no bleeding problems, no anemia, no blood clots, no transfusions. Allergy/Immunologic: no swollen lymph nodes/glands, no IV drug abuse. Other: Additional ROS info: Except as noted in the above Review of Systems and in the History of Present Illness, all other systems have been reviewed and are negative or noncontributory. Physical Exam Vitals & Measurements HR: 70(Peripheral) RR: 16 BP: 102/70 HT: 62 in HT: 157.4 cm WT: 50.4 kg WT: 110.88 lb BMI: 20.34 HEENT: normal conjunctiva, sclera clear, no scleral icterus, EOM intact, PERRLA, oral mucosa moist without lesions. Neck: trachea midline, no mass, symmetric, no thyromegaly or nodules, no adenopathy Respiratory: lungs CTA, respirations non labored. Cardiovascular: regular rate and rhythm, no murmur, no pedal edema or varicosities. Gastrointestinal: soft, non distended, no tenderness, no masses, no palpable hernias, diastasis recti no, no hepatosplenomegaly; normal bs Lymphatic: no cervical adenopathy, no axillary adenopathy, no inguinal adenopathy. Musculoskeletal: normal gait, digits and nails without infection, nodes, cyanosis, clubbing. Skin: no rashes, no lesions, no ulcers, no subcutaneous nodules, induration. Psychiatric/Neuro: oriented to time, place, person, judgement normal, affect appropriate for age, insight intact, no focal deficits. Tests: review of old records completed, Discussed surgical options, risks, and possible complications with patient. Assessment/Plan 1. Epigastric pain (R10.13: Epigastric pain) plan EGD under anesthesia for further evaluation; informed consent obtained. 2. Abdominal pain, LUQ (R10.12: Left upper quadrant pain) see # 1 3. Abdominal bloating (R14.0: Abdominal distension (gaseous)) see # 1 Follow-up No qualifying data available Problem List/Past Medical History Ongoing Abdominal bloating Abdominal pain, LUQ Anxiety Bipolar disorder BMI 20.0-20.9, adult Chronic neck pain Epigastric pain Hormone imbalance Insomnia Migraines Ovarian cyst Seasonal allergic rhinitis Historical No qualifying data Procedure/Surgical History Colonoscopy, Dilation and curettage, Dilation and curettage, EGD - Esophagogastroduodenoscopy, Laparoscopy, Ovarian cystectomy. Medications citalopram 40 mg Tab, 40 mg= 1 tab(s), Oral, Daily dicyclomine 20 mg Tab, 20 mg= 1 tab(s), Oral, QID Elavil 25 mg Tab, 25 mg= 1 tab(s), Oral, Once a day (at bedtime) Fioricet oral capsule, 1 cap(s), Oral, q4hr, PRN hydrOXYzine hydrochloride 25 mg Tab, 25 mg= 1 tab(s), Oral, QID, PRN Imitrex 100 mg Tab, 100 mg= 1 tab(s), Oral, Once lamotrigine 25 mg Tab, 50 mg= 2 tab(s), Oral, Bedtime Pantoprazole [address] Tab, 40 mg= 1 tab(s), Oral, Daily Zanaflex 4 mg Tab, 2 mg= 0.5 tab(s), Oral, Bedtime Zofran 4 mg Tab Allergies No Known Allergies No Known Medication Allergies Social History Alcohol - Denies Alcohol Use, 07/17/2022 Substance Abuse - Denies Substance Abuse, 07/17/2022 Tobacco Former smoker, quit more than 30 da (more content not included)...[facility]Comment [facility]:Result Comment: Electronically Signed By: RAPHAEL MACIAS, Mayito Matthews\Date and Time Signed: 07/20/22 14:58 [id number] Note OPERATIVE NOTE OPERATION DATE: 07/10/2021 PROCEDURE: Diagnostic laparoscopy with chromopertubation. PREOPERATIVE DIAGNOSIS: Pelvic pain. POSTOPERATIVE DIAGNOSIS: Pelvic pain, including small endometrial implant posterior cul-de-sac, as well as possible blunted tube on the patient's left side. ANESTHESIA: General. SURGEON: En Quintana D.O. SITE ENGINEER: ISAURO Mccoy URINE OUTPUT: Yellow and clear. BLOOD LOSS: 5 mL. FINDINGS: Slightly blunted tube on the left side, endometriosis posterior cul-de-sac, otherwise normal appearing uterus, tubes and ovaries. Normal appearing appendix. Some adhesions of the bowel to the pelvic and abdominal side wall on the patient's right side. Normal appearing liver. No evidence of Jtzn-Nsku-Uadxao syndrome. PROCEDURE: The patient was taken back to the Operating Room where she was placed in dorsal lithotomy position after given general anesthesia. The patient was prepped and draped in normal sterile fashion. A sponge stick was placed into the patient's vagina. Attention was turned to the patient's abdomen, where a small umbilical incision was made. The fascia was tented using Rashida clamps and the fascia was entered sharply. Confirmation of intra-abdominal placement of the 10 mm port was confirmed under direct visualization using a laparoscope. The patient's abdomen was then insufflated using CO2 gas with approximately 4 liters. A second port was placed left laterally. This was done under direct visualization with a 5 mm port. Survey of the patient's abdomen demonstrated normal liver and gallbladder. Survey of the patient's pelvic anatomy demonstrated normal appearing ovaries and tubes as well as normal appearing uterus. No endometrial implants could be noted, no evidence of any pelvic disease was seen, normal appearing pelvic cavity. All instruments were removed from the patient's abdomen. The patient's abdomen was desufflated of CO2 gas. The patient tolerated the procedure well. Sponge stick was removed from the patient's vagina. The patient's infraumbilical fascia was closed using #0 Vicryl on a GI needle. The patient's skin was closed laterally and infraumbilically using 4-0 Vicryl. The patient tolerated the procedure well. Sponge, lap and needle counts were correct x 2. The patient was taken to Recovery Room in stable conditionThe [facility] [id number] NoteOP Note OPERATION DATE: 07/10/2022 PROCEDURE: Diagnostic laparoscopy with chromopertubation. PREOPERATIVE DIAGNOSIS: Pelvic pain, suspected endometriosis, fallopian tube disorder. POSTOPERATIVE DIAGNOSIS: Pelvic pain, suspected endometriosis, fallopian tube disorder, including mild endometriosis, bilateral patent fallopian tubes, small bowel adhesion to the pelvic side wall. ANESTHESIA: General. SURGEON: En Quintana D.O. SITE ENGINEER: ISAURO Mccoy URINE OUTPUT: Yellow and clear. BLOOD LOSS: 5 mL. ADDENDUM: Please note that chromopertubation was performed after methylene blue was placed through the HUMI manipulator. Spillage of methylene blue could be seen from both tubes.[facility] [id number] Instructions* Patient Instructions* Jennifer Lam - 04/27/2014 4:49 PM EDT [phone] - Patient mother would like to speak with a nurse concerning medications that her daughter is taking. [facility] N[facility]ative - Reported * the patient is seen at the request of Dr. Gonzales at [facility] for consultation regarding second opinion for placental hemorrhage; [facility] 08/15/2023 * FC MA [id number] [address] [place] Work Phone: chief complaint Narrative - Reported* the patient is seen at the request of Dr. Gonzales at [facility] for consultation regarding second opinion for placental hemorrhage; [facility] 08/15/2023 * FC MA [id number] [address] [place] Work Phone: evaluation + Plan note No data available for this section General Surgery [place] History general Narrative - Reported* Type Description Date Medical History Anxiety Medical History GERD (gastroesophageal reflux di sease) Medical History bipolar Surgical History LAPAROSCOPY-times 2013 [facility]ization History [facility] ultrasound & CT scans 12/2022 [employer] Other Hospital Discharge instructions No data available for this section General Surgery [place] Progress note No data available for this section General Surgery [facility] Summary Purpose Family History No Family History Records FoundNo Family History Records FoundNo Family History Records FoundNo Family History Records FoundNo Family History Records Found Advance Directives No Advanced Directives Records Found Advance Directive Response Recorded Date/ Time Advance Directives No March 7:38pm Chief Complaint and Reason for Visit Chief Complaint anxiety Assessments No Assessments Information Available Additional Source Comments INFORMATION SOURCE (unrecogn ized section and content) DATE CREATED AUTHOR 02/04/2020 [facility] DATE CREATED AUTHOR AUTHOR'S ORGANIZ ATION 08/16/2022 [facility] DATE CREATED AUTHOR AUTHOR'S ORGANIZ ATION 12/07/2022 [facility] DATE CREATED AUTHOR AUTHOR'S ORGANIZ ATION 04/06/2023 [facility] DATE CREATED AUTHOR AUTHOR'S ORGANIZ ATION 06/13/2023 [facility] EPIC Source Comments (unrecognize d section and content) In the event this informatio n is protected by the Federal Confidentiality of Alcohol and Drug Abuse Patient Records regulations: The Federal rules restrict any use of the information to criminally investigate or prosecute any alcohol or drug abuse patient.[facility] Patient Care team informatio n (unrecognized section and content) Personnel Name: SUKI CONDE MD Address: Address: [address] [place], [place] [address] [address] REASON FOR VISIT (unrecogniz ed section and content) Patient here for 3 month fol low up. The patient is 14 weeks with twins. The patient was admitted to the hospital for 4 days about 3 weeks ago for abdominal pain. She is still on Protonix & is on a Zofran pump. She has stopped the Elavil. FOR RECORDS PERTAINING TO PATIENTS WHO ARE OR HAVE BEEN ENROLLED IN A CHEMICAL DEPENDENCY/SUBSTANCEABUSE PROGRAM, SOME INFORMATION MAY BE OMITTED. This clinical summary was aggregated from multiple sources. Caution should be exercised in using it in the provision of clinical care. This summary normalizes information from multiple sources, and as a consequence, information in this document may materially change the coding, format and clinical context of patient data. In addition, data may be omitted in some cases. CLINICAL DECISIONS SHOULD BE BASED ON THE PRIMARY CLINICAL RECORDS. [facility]. provides no warranty or guarantee of the accuracy or completeness of information in this document.
[2023-06-26 20:50] VITALS: BP 98/50; PULSE 78
[2023-06-26 20:57] VITALS: TEMP 36.1
[2023-06-26] MEDS: BETAMETHASONE ACE/BETAMETHASONE SOD PHOS 30 MG/5 ML 12 MG IM (21:35)
--- NOTE | 2023-06-26 22:38 | PC.NURSE ---
Pt presents for 2nd betamethasone inj.
--- NOTE | 2023-06-26 22:42 | PC.NURSE ---
2124- Pt presents for 2nd betamethasone injection. Given in right hip. Pt denies CTX or cramping, but admits she still does not feel well. Pt reports she started a zpak today and hopes she will improve. Temp- 97.7
== END 2023-06-26 21:40 | disposition home or self-care (01) ==
LOC: FBCO 19:58 → FBC 20:30
PROVIDERS: PCP Family Medicine; Visit Provider Obstetrics & Gynecology
DX: O30.003 Twin pregnancy, unspecified number of placenta and unspecified number of amniotic sacs, third trimester (principal); Z3A.00 Weeks of gestation of pregnancy not specified
CPT/HCPCS: J0702

== ENCOUNTER 2023-06-28 07:06 | Outpatient (OUT) | payer OTHER, SELFPAY ==
--- OUTSIDE RECORDS SUMMARY | 2023-06-28 07:09 | XMS_ITS | CCD ---
Author Name Unknown Address [address] [place] [address] Organization [facility] Care Team Providers Care Wrister Name Role Phone NO FAMILY, PHYSICIAN Primary Care Provider UnaNela Roberts Primary Care Provider SUKI CONDE Primary Care Physician AMAYA PROVIDER, SUKI Referring Unavailab le NILL, [...] ANA COTE Consulting Unavailable AMAYA, DR SUKI Kong Primary [...] Unavailable AMAYA, DR SUKI Kong Attending Unavailable [place], DR ANGIE Arce Consulting Unavailable REQUEST, DR FERNANDO LISTED Primary Care Unavaila caitie CONDE, DR SUKI Kong Consulting Unavailable Filippo Larson Unavailable [phone] Unknown, Referring Provider Unavailable Unav ailable Ramakrishna Schwarz Attending Unavailable UNKNOWN, PCP Primary Care Unavailable [place] Attending Unavailable NESTOR PRICE Attending Unavailable NESTOR PRICE Attending Unavailable Unavailable Unavailable Unavailable Allergies Allergy Classification Reported Allergen(s) Allergy Type Date of Onset Reaction(s) Facility (1 source) No Known Medication Allergies; Translations: [No Known Medication Allergies] Propensity to adverse reactions (disorder) [facility] Repository Medications Current Medications Medication Drug Class(es) [...] 2 Episodic Other aftercare (1 source) 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; Translations: [OTH [facility] CURRENT DRUG THERAPY] Onset: 3 Episodic Other [...] object(s), not elsewhere classified, initial encounter; Translations: [[facility] SHRP OB NOT ELSW CLASS INI] Onset: [...] fallopian tube and broad ligament, unspecified; Translations: [[facility] NONINFL D/O OVARY TUBE AND BRD LIG] [...] a) No falls within the last year [id number] [address] [place] Work Phone: Tobacco use status CPHS a) Yes M [id number] [address] [place] Work Phone: Blood Pressure Cuff Size Adult [id number] 1200 [place] Work Phone: Blood Pressure Cuff Size Yes [id number] 1200 [place] Work Phone: No Panel Informationon 03-28 Normal [id number] 1200 [place] Work Phone: OB Completed scan [...] gestation - rr cfDNA - Referred from [place] because of subchorionic hematomas A targeted anatomic [...] previously been seen by Dr. Gonzales in [place]. Twins are doing well, their growth is [...] EFW (oz) 12 oz EFW by: Hadlock ([id number]) Extended Packaging Mechanic 5.8 mm CM 3.9 mm 16% Nicolaides [...] mm 61 (more content not included)... Normal [facility] AMYLASEon 10-28-2022 Amylase [Catalytic activity/Vol] 35 U/L Normal 25-115 [facility] Comment on above: Performed By: #### C NEAL LIPA, NESTOR #### [facility] [address] [place] [address] Dr. Joe Shea CBC AUTO DIFFon 10-28-2022 BASO # 0.1 103/ul Normal 0.0-0.1 [facility] Comment on above: Performed By: #### C NEAL LIPA, NESTOR #### [facility] [address] [place] [address] Dr. Joe Shea Basophils/100 WBC (Bld) 0.4 % Normal 0.2-2.0 [facility] Comment on above: Performed By: #### C NEAL LIPA, NESTOR #### [facility] [address] [place] [address] Dr. Joe Shea EO # 0.1 103/ul Normal 0.0-0.7 [facility] Comment on above: Performed By: #### C NEAL LIPA, NESTOR #### [facility] [address] [place] [address] Dr. Joe Shea Eosinophils/100 WBC (Bld) 0.8 % Critically low 0.9-7. 0 [facility] Comment on above: Performed By: #### C HUGO DE JESUSA NESTOR #### [facility] [address] [place] [address] Dr. Joe Shea Erythrocyte distribution width (RBC) [Ratio] 13.2 % Normal 11.0-15.0 [facility] Comment on above: Performed By: #### C NEAL LIPA, NESTOR #### [facility] [address] [place] [address] Dr. Joe Shea Hematocrit (Bld) [Volume fraction] 37.2 % Normal 36.0-48.0 [facility] Comment on above: Performed By: #### C NEAL LIPA, NESTOR #### [facility] [address] [place] [address] Dr. Joe Shea Hemoglobin (Bld) [Mass/Vol] 12.0 g/dL Normal 12.0-16.0 [facility] Comment on above: Performed By: #### C NEAL LIPA, NESTOR #### [facility] [address] [place] [address] Dr. Joe Shea IG # 0.03 10e3/ul Normal 0.00-0.03 [facility] Comment on above: Performed By: #### C MP, LIPA, NESTOR #### [facility] [address] [place] [address] Dr. Joe Shea IG % 0.2 % Normal 0.0-0.5 [facility] Comment on above: Performed By: #### C MP, LIPA, NESTOR #### [facility] [address] [place] [address] Dr. Joe Shea LYMPH # 1.9 103/ul Normal 1.2-3.8 [facility] Comment on above: Performed By: #### C MP, LIPA, NESTOR #### [facility] [address] [place] [address] Dr. Joe Shea Lymphocytes/100 WBC (Bld) 15.2 % Critically low 20.5-6 0.0 [facility] Comment on above: Performed By: #### C MP, LIPA, NESTOR #### [facility] [address] [place] [address] Dr. Joe Shea MANUAL DIFF REQ NO Normal [facility] Comment on above: Performed By: #### C MP, LIPA, NESTOR #### [facility] [address] [place] [address] Dr. Joe Shea MCH (RBC) [Entitic mass] 28.4 pg Normal 26.7-34.0 [facility] Comment on above: Performed By: #### C MP, LIPA, NESTOR #### [facility] [address] [place] [address] Dr. Joe Shea MCHC (RBC) [Mass/Vol] 32.3 g/dL Normal 29.9-35.2 [facility] Comment on above: Performed By: #### C MP, LIPA, NESTOR #### [facility] [address] [place] [address] Dr. Joe Shea MCV (RBC) [Entitic vol] 87.9 fL Normal 81.0-99.0 [facility] Comment on above: Performed By: #### C CARLYN DE JESUS, NESTOR #### [facility] [address] [place] [address] Dr. Joe Shea MONO # 0.9 103/ul Critically high 0.3-0.8 [facility] Comment on above: Performed By: #### C HUGO DE JESUSA, NESTOR #### [facility] [address] [place] [address] Dr. Joe Shea Monocytes/100 WBC (Bld) 7.1 % Normal 1.7-12.0 [facility] Comment on above: Performed By: #### C CARLYN DE JESUS, NESTOR #### [facility] [address] [place] [address] Dr. Joe Shea NEUT # 9.5 103/ul Critically high 1.4-6.5 [facility] Comment on above: Performed By: #### C HUGO DE JESUSA, NESTOR #### [facility] [address] [place] [address] Dr. Joe Shea Neutrophils/100 WBC (Bld) 76.3 % Critically high 43.0- 75.0 [facility] Comment on above: Performed By: #### C CARLYN DE JESUS, NESTOR #### [facility] [address] [place] [address] Dr. Joe Shea Platelet mean volume (Bld) [Entitic vol] 10.8 fL Normal 9.5-13.5 [facility] Comment on above: Performed By: #### C HUGO DE JESUSA, NESTOR #### [facility] [address] [place] [address] Dr. Joe Shea PLT 283 103/ul Normal 150-450 [facility] Comment on above: Performed By: #### C CARLYN DE JESUS, NESTOR #### [facility] [address] [place] [address] Dr. Joe Shea RBC 4.23 106/ul Normal 4.20-5.40 [facility] Comment on above: Performed By: #### C HUGO DE JESUSA, NESTOR #### [facility] [address] [place], [place] [address] Dr. Joe Shea WBC 12.5 103/ul Critically high 4.0-11.0 [facility] Comment on above: Performed By: #### C CARLYN DE JESUS AMY #### [facility] [address] [place], [place] [address] ABD/PELV W CONon [...] MISTI BREWER Date: 2022-10-28 18:31 Normal [facility] ER URINE PROFILEon 3 Bilirubin Ql (U) Negative Normal NEGATIVE [facility] Comment on above: Performed By: #### L BCLH #### [facility] [address] [place] [address] [address] Joe Shea Clarity (U) CLEAR Normal CLEAR [facility] Comment on above: Performed By: #### L BCLH #### [facility] [address] [place] [address] Dr. Joe Shea Color (U) LT. YELLOW Normal YELLOW [facility] Comment on above: Performed By: #### L BCLH #### [facility] [address] [place] [address] Dr. Joe Shea ERUAHD A micrscopic examination will be performed if indicated. Normal [facility] Comment on above: Performed By: #### L BCLH #### [facility] [address] [place] [address] Dr. Joe Shea Glucose Ql (U) Negative Normal NEGATIVE [facility] Comment on above: Performed By: #### L BCLH #### [facility] [address] [place] [address] Dr. Joe Shea Hemoglobin Ql (U) Negative Normal NEGATIVE [facility] Comment on above: Performed By: #### L BCL #### [facility] [address] [place] [address] Dr. Joe hSea Ketones Ql (U) Negative Normal NEGATIVE [facility] Comment on above: Performed By: #### L BCL #### [facility] [address] [place] [address] Dr. Joe Shea LEUKOCYTES TRACE Abnormal NEGATIVE [facility] Comment on above: Performed By: #### L BCL #### [facility] [address] [place] [address] Dr. Joe Shea Nitrite Ql (U) Negative Normal NEGATIVE [facility] Comment on above: Performed By: #### L BCL #### [facility] [address] [place] [address] Dr. Joe Shea pH (U) 8.0 [pH] Normal 5-9 [facility] Comment on above: Performed By: #### L BCLH #### [facility] [address] [place] [address] Dr. Joe Shea SPEC GRAVITY 1.015 Normal 1.005-<=1.02 5 [facility] Comment on above: Performed By: #### L BCL #### [facility] [address] [place] [address] Dr. Joe Shea UA PROTEIN Negative Normal NEGATIVE/ TRACE [facility] Comment on above: Performed By: #### L BCL #### [facility] [address] [place] [address] Dr. Joe Shea UR MICRO IND INDICATED Normal [facility] Comment on above: Performed By: #### L BCL #### [facility] [address] [place] [address] Dr. Joe Shea Urobilinogen Qn (U) 2.0 {Pascual'U}/dL Abnormal 0.2 - 1. 0 [facility] Comment on above: Performed By: #### L BARRY #### [facility] [address] [place] [address] Dr. Joe Shea LIPASEon 10-28-2022 Lipase [Catalytic activity/Vol] 93.0 U/L Normal 73.0-393.0 [facility] Comment on above: Performed By: #### C MP, LIPA, NESTOR #### [facility] [address] [place] [address] Dr. Joe Shea URon 10-28-2022 , QUAL Negative Normal NEGATIVE [facility] Comment on above: Performed By: #### L BCL #### [facility] [address] [place] [address] Dr. Joe Shea PROF 14(COMP METB)on 023 Albumin [Mass/Vol] 4.1 g/dL Normal 3.4-5.0 [facility] Comment on above: Performed By: #### C MP, LIPA, NESTOR #### [facility] [address] [place] [address] Dr. Joe Shea Albumin/Globulin [Mass ratio] 1.2 {ratio} Normal [facility] Comment on above: Performed By: #### C MP, LIPA, NESTOR #### [facility] [address] [place] [address] Dr. Joe Shea ALP [Catalytic activity/Vol] 60 U/L Normal 46-116 [facility] Comment on above: Performed By: #### C MP, LIPA, NESTOR #### [facility] [address] [address] [address] Joe Shea ALT [Catalytic activity/Vol] 22 U/L Normal 14-59 [facility] Comment on above: Performed By: #### C MP, LIPA, NESTOR #### [facility] [address] [address] [address] Joe Shea Anion gap [Moles/Vol] 10.2 mmol/L Normal [facility] Comment on above: Performed By: #### C MP, LIPA, NESTOR #### [facility] [address] [place] [address] Dr. Joe Shea AST [Catalytic activity/Vol] 14 U/L Critically low 15-37 [facility] Comment on above: Performed By: #### C MP LIPA, NESTOR #### [facility] [address] [place] [address] Dr. Joe Shea Bilirubin [Mass/Vol] 0.5 mg/dL Normal 0.2-1.0 [facility] Comment on above: Performed By: #### C MP LIPA, NESTOR #### [facility] [address] [place] [address] Dr. Joe Shea Calcium [Mass/Vol] 8.9 mg/dL Normal 8.5-10.1 [facility] Comment on above: Performed By: #### C MP, LIPA, NESTOR #### [facility] [address] [place] [address] Dr. Joe Shea Chloride [Moles/Vol] 103 mmol/L Normal 98-107 [facility] Comment on above: Performed By: #### C MP, LIPA, NESTOR #### [facility] [address] [place] [address] Dr. Joe Shea CO2 [Moles/Vol] 28.1 mmol/L Normal 21.0-32.0 [facility] Comment on above: Performed By: #### C MP, LIPA, NESTOR #### [facility] [address] [place] [address] Dr. Joe Shea Creatinine [Mass/Vol] 0.77 mg/dL Normal 0.55-1.02 [facility] Comment on above: Performed By: #### C CARLYN DE JESUS NESTOR #### [facility] [address] [address] [address] Joe Shea EGFR-AF SAMMARINESE >60 Normal >=60 [facility] Comment on above: Performed By: #### C CARLYN DE JESUS, NESTOR #### [facility] [address] [address] [address] Joe Shea EGFR-NON AF SAMMARINESE >60 Normal >=60 [facility] Comment on above: Performed By: #### C CARLYN DE JESUS, NESTOR #### [facility] [address] [place] [address] Dr. Joe Shea Globulin (S) [Mass/Vol] 3.5 g/dL Normal [facility] Comment on above: Performed By: #### C CARLYN DE JESUS, NESTOR #### [facility] [address] [place] [address] Dr. Joe Shea Glucose [Mass/Vol] 85 mg/dL Normal 74-106 [facility] Comment on above: Performed By: #### C CARLYN DE JESUS, NESTOR #### [facility] [address] [place] [address] Dr. Joe Shea Potassium [Moles/Vol] 3.3 mmol/L Critically low 3.5-5.1 [facility] Comment on above: Performed By: #### C CARLYN DE JESUS, NESTOR #### [facility] [address] [place] [address] Dr. Joe Shea Protein [Mass/Vol] 7.6 g/dL Normal 6.4-8.2 [facility] Comment on above: Performed By: #### C CARLYN DE JESUS, NESTOR #### [facility] [address] [place] [address] Dr. Joe Shea Sodium [Moles/Vol] 138 mmol/L Normal 136-145 [facility] Comment on above: Performed By: #### C CARLYN DE JESUS, NESTOR #### [facility] [address] [place] [address] Dr. Joe Shea Urea nitrogen [Mass/Vol] 6.0 mg/dL Critically low 7.0-18. 0 [facility] Comment on above: Performed By: #### C CARLYN DE JESUS AMY #### [facility] [address] [place] [address] Dr. Joe Shea Urea nitrogen/Creatinine [Mass ratio] 7.8 mg/mg Normal [facility] Comment on above: Performed By: #### C CARLYN DE JESUS AMY #### [facility] [address] [place] [address] Dr. Joe Shea URINE MICROSCOPIC ONLYon BACTERIA NONE SEEN Normal NONE SEEN [facility] Comment on above: Performed By: #### L BCL #### [facility] [address] [place] [address] Dr. Joe Shea Bacteria identified Cx Nom (U) NOT INDICATED Normal [facility] Comment on above: Performed By: #### L BCL #### [facility] [address] [place] [address] Dr. Joe Shea CAST NONE SEEN Normal NONE SEEN [facility] Comment on above: Performed By: #### L BCL #### [facility] [address] [place] [address] Dr. Joe Shea Crystals LM Nom (Urine sed) NONE SEEN Normal NONE SEEN [facility] Comment on above: Performed By: #### L BCL #### [facility] [address] [place] [address] Dr. Joe Shea Epithelial cells LM Ql (Urine sed) FEW Abnormal NONE SEEN /RARE [facility] Comment on above: Performed By: #### L BCL #### [facility] [address] [place] [address] Dr. Joe Shea MUCOUS NONE SEEN Normal NONE SEEN [facility] Comment on above: Performed By: #### L BCLH #### [facility] [address] [place] [address] Dr. Joe Shea RBC NONE SEEN Abnormal 0-2 [facility] Comment on above: Performed By: #### L BARRY #### [facility] [address] [address] [address] Joe Shea WBC 0-2 Abnormal NONE SEEN [facility] Comment on above: Performed By: #### L BARRY #### [facility] [address] [address] [address] Joe Shea LACTOFERRIN FECAL QUANTon Lactoferrin, Fecal, Quant. <1.00 Normal 0.00-7.24 [facility] Comment on above: Result Comment: Re sults [...] (IBS). Performed By: #### D TRESA #### [facility] [address] [place] [address] Dr. Joe Shea CALPROTECTIN, FECALon 2022 Calprotectin, Fecal 31 ug/g Normal 0-120 [facility] Comment on above: Result Comment: Conc entration Interpretation Follow-Up <16 - 50 ug/g Normal None >50 -120 ug/g Borderline Re-evaluate in 4-6 weeks >120 ug/g Abnormal Repeat as clinically indicated Performed By: #### C MP, LIPA, NESTOR #### [facility] [address] [place] [address] Dr. Joe Shea BOWEL DISORDERS EVALUATION R ULE-OUT CASCon 09-25-2022 Antigliadin 8 units Normal 0-19 [facility] Comment on above: Result Comment: Nega tive 0 - 19 Weak Positive 20 - 30 Moderate to Strong Positive >30 . Performed By: #### C BC #### [facility] [address] [place] [address] Dr. Joe Shea Atypical pANCA Negative Normal Negative [facility] Comment on above: Performed By: #### C BC #### [facility] [address] [address] [address] Joe Shea Note: [place] continues Normal [facility] Comment on above: Performed By: #### C BC #### [facility] [address] [place] [address] Dr. Joe Shea Note: Comment Normal [facility] Comment on above: Result Comment: Sugg estive of irritable bowel syndrome (IBS). Careful evaluation of the patient's history, physical examination, and application of Navjot III diagnostic criteria may help to rule in or rule out the diagnosis of IBS. Subsequent testing for Fecal Calprotectin (985892) may be recommended. If IBD is strongly suspected, subsequent testing with the Crohn's Disease Prognostic Profile (450843) that includes anti- glycan antibodies AMCA, ALCA, ACCA, and Zulema may aid in differential diagnosis. Performed By: #### C BC #### [facility] [address] [place] [address] Dr. Joe Shea Saccharomyces Cer. IgG <20.0 Normal 0.0-24.9 [facility] Comment on above: Result Comment: Nega tive <20.0 Equivocal 20.1 - 24.9 Positive >or= 25.0 Performed By: #### C BC #### [facility] [address] [place] [address] Dr. Joe Shea tTG/DGP SCR Negative Normal Negative [facility] Comment on above: Result Comment: Ef fective September 21, 2022 this profile will be made non-orderable due to non-availability of reagents for tTG/DGP Combo. No replacement number is available at this time. For further information, please contact your local [facility] Industrial Engineer. Performed By: #### C BC #### [facility] [address] [place] [address] Dr. Joe Shea CBC AUTO DIFFon 09-19-2022 BASO # 0.1 103/ul Normal 0.0-0.1 [facility] Comment on above: Performed By: #### D HEASUL #### [facility] [address] [place] [address] Dr. Joe Shea Basophils/100 WBC (Bld) 0.9 % Normal 0.2-2.0 [facility] Comment on above: Performed By: #### Althea GTZ #### [facility] [address] [place] [address] Dr. Joe Shea EO # 0.2 103/ul Normal 0.0-0.7 [facility] Comment on above: Performed By: #### Althea GTZ #### [facility] [address] [place] [address] Dr. Joe Shea Eosinophils/100 WBC (Bld) 2.4 % Normal 0.9-7.0 [facility] Comment on above: Performed By: ###Asiya GTZ #### [facility] [address] [place] [address] Dr. Joe Shea Erythrocyte distribution width (RBC) [Ratio] 13.2 % Normal 11.0-15.0 [facility] Comment on above: Performed By: ###Asiya GTZ #### [facility] [address] [place] [address] Dr. Joe Shea Hematocrit (Bld) [Volume fraction] 38.3 % Normal 36.0-48.0 [facility] Comment on above: Performed By: ###Asiya GTZ #### [facility] [address] [place] [address] Dr. Joe Shea Hemoglobin (Bld) [Mass/Vol] 12.3 g/dL Normal 12.0-16.0 [facility] Comment on above: Performed By: #### Althea GTZ #### [facility] [address] [place] [address] Dr. Joe Shea IG # 0.02 10e3/ul Normal 0.00-0.03 [facility] Comment on above: Performed By: #### Althea GTZ #### [facility] [address] [place] [address] Dr. Joe Shea IG % 0.3 % Normal 0.0-0.5 [facility] Comment on above: Performed By: ###Asiya GTZ #### [facility] [address] [address] [address] Joe Shea LYMPH # 1.7 103/ul Normal 1.2-3.8 [facility] Comment on above: Performed By: #### Althea GTZ #### [facility] [address] [place] [address] Dr. Joe Shea Lymphocytes/100 WBC (Bld) 24.6 % Normal 20.5-60.0 [facility] Comment on above: Performed By: #### Althea GTZ #### [facility] [address] [place] [address] Dr. Joe Shea MANUAL DIFF REQ NO Normal [facility] Comment on above: Performed By: #### Althea GTZ #### [facility] [address] [place] [address] Dr. Joe Shea MCH (RBC) [Entitic mass] 28.1 pg Normal 26.7-34.0 [facility] Comment on above: Performed By: #### Althea GTZ #### [facility] [address] [place] [address] Dr. Joe Shea MCHC (RBC) [Mass/Vol] 32.1 g/dL Normal 29.9-35.2 [facility] Comment on above: Performed By: #### Althea GTZ #### [facility] [address] [place] [address] Dr. Joe Shea MCV (RBC) [Entitic vol] 87.6 fL Normal 81.0-99.0 [facility] Comment on above: Performed By: #### Althea GTZ #### [facility] [address] [place] [address] Dr. Joe Shea MONO # 0.4 103/ul Normal 0.3-0.8 [facility] Comment on above: Performed By: #### Althea GTZ #### [facility] [address] [place] [address] Dr. Joe Shea Monocytes/100 WBC (Bld) 5.5 % Normal 1.7-12.0 [facility] Comment on above: Performed By: #### Althea GTZ #### [facility] [address] [address] [address] Joe Shea NEUT # 4.7 103/ul Normal 1.4-6.5 [facility] Comment on above: Performed By: #### Althea GZT #### [facility] [address] [address] [address] Joe Shea Neutrophils/100 WBC (Bld) 66.3 % Normal 43.0-75.0 [facility] Comment on above: Performed By: #### Althea GTZ #### [facility] [address] [address] [address] Joe Shea Platelet mean volume (Bld) [Entitic vol] 11.4 fL Normal 9.5-13.5 [facility] Comment on above: Performed By: #### Althea GTZ #### [facility] [address] [place] [address] Dr. Joe Shea PLT 275 103/ul Normal 150-450 [facility] Comment on above: Performed By: #### Althea GTZ #### [facility] [address] [place] [address] Dr. Joe Shea RBC 4.37 106/ul Normal 4.20-5.40 [facility] Comment on above: Performed By: #### Althea GTZ #### [facility] [address] [place] [address] Dr. Joe Shea WBC 7.0 103/ul Normal 4.0-11.0 [facility] Comment on above: Performed By: #### Althea GTZ #### [facility] [address] [place] [address] Dr. Joe Shea PROF 14(COMP METB)on 023 Albumin [Mass/Vol] 4.4 g/dL Normal 3.4-5.0 [facility] Comment on above: Performed By: #### Courtney GAUTAM #### [facility] [address] [place] [address] Dr. Joe Shea Albumin/Globulin [Mass ratio] 1.4 {ratio} Normal [facility] Comment on above: Performed By: #### L DAIN #### [facility] [address] [address] [address] Joe Shea ALP [Catalytic activity/Vol] 51 U/L Normal 46-116 [facility] Comment on above: Performed By: #### L BCLH #### [facility] [address] [address] [address] Joe Shea ALT [Catalytic activity/Vol] 20 U/L Normal 14-59 [facility] Comment on above: Performed By: #### L BCLH #### [facility] [address] [address] [address] Joe Shea Anion gap [Moles/Vol] 11.7 mmol/L Normal [facility] Comment on above: Performed By: #### L BCLH #### [facility] [address] [place] [address] Dr. Joe Shea AST [Catalytic activity/Vol] 17 U/L Normal 15-37 [facility] Comment on above: Performed By: #### L BCLH #### [facility] [address] [place] [address] Dr. Joe Shea Bilirubin [Mass/Vol] 0.4 mg/dL Normal 0.2-1.0 [facility] Comment on above: Performed By: #### L BCLH #### [facility] [address] [place] [address] Dr. Joe Shea Calcium [Mass/Vol] 9.3 mg/dL Normal 8.5-10.1 [facility] Comment on above: Performed By: #### L BCLH #### [facility] [address] [place] [address] Dr. Joe Shea Chloride [Moles/Vol] 104 mmol/L Normal 98-107 [facility] Comment on above: Performed By: #### L BCLH #### [facility] [address] [address] [address] Joe Shea CO2 [Moles/Vol] 28.5 mmol/L Normal 21.0-32.0 [facility] Comment on above: Performed By: #### L BCLH #### [facility] [address] [address] [address] Joe Shea Creatinine [Mass/Vol] 0.55 mg/dL Normal 0.55-1.02 [facility] Comment on above: Performed By: #### L BCL #### [facility] [address] [address] [address] Joe Shea EGFR-AF SAMMARINESE >60 Normal >=60 [facility] Comment on above: Performed By: #### L BCLH #### [facility] [address] [address] [address] Joe Shea EGFR-NON AF SAMMARINESE >60 Normal >=60 [facility] Comment on above: Performed By: #### L BCLH #### [facility] [address] [place] [address] Dr. Joe Shea Globulin (S) [Mass/Vol] 3.1 g/dL Normal T [facility] Comment on above: Performed By: #### L BCL #### [facility] [address] [place] [address] Dr. Joe Shea Glucose [Mass/Vol] 90 mg/dL Normal 74-106 [facility] Comment on above: Performed By: #### L BCL #### [facility] [address] [place] [address] Dr. Joe Shea Potassium [Moles/Vol] 4.2 mmol/L Normal 3.5-5.1 [facility] Comment on above: Performed By: #### L BCL #### [facility] [address] [place] [address] Dr. Joe Shea Protein [Mass/Vol] 7.5 g/dL Normal 6.4-8.2 [facility] Comment on above: Performed By: #### L BCLH #### [facility] [address] [place] [address] Dr. Joe Shea Sodium [Moles/Vol] 140 mmol/L Normal 136-145 [facility] Comment on above: Performed By: #### L BCLH #### [facility] [address] [place] [address] Dr. Joe Shea Urea nitrogen [Mass/Vol] 6.0 mg/dL Critically low 7.0-18. 0 [facility] Comment on above: Performed By: #### L BARRY #### [facility] [address] [place] [address] Dr. Joe Shea Urea nitrogen/Creatinine [Mass ratio] 10.9 mg/mg Normal [facility] Comment on above: Performed By: #### L BARRY #### [facility] [address] [place] [address] Dr. Joe Shea PROTIMEon 09-19-2022 INR Coag (PPP) [Relative time] 1.08 {INR} Normal [facility] Comment on above: Performed By: #### L BARRY #### [facility] [address] [place] [address] Dr. Joe Shea INR GUIDELINES SEE BELOW Normal [facility] Comment on above: Result Comment: CHICA RED INR: 2.0 - 3.0 CONDITIONS NOT LISTED BELOW 2.5 - 3.5 FOR PROSTHETIC HEART VALVE REPLACEMENT 2.5 - 3.5 RECURRENT THROMBOSIS Performed By: #### L BARRY #### [facility] [address] [place] [address] Dr. Joe Shea PT Coag (PPP) [Time] 11.4 s Normal 9.0-11.6 [facility] Comment on above: Performed By: #### L BARRY #### [facility] [address] [place] [address] Dr. Joe Shea TSHon 09-19-2022 TSH 0.957 uIU/mL Normal 0.358-3.740 [facility] Comment on above: Performed By: #### L BARRY #### [facility] [address] [place] [address] Dr. Joe Shea Pre-Certification Formon Pre-Certification Form [id number]#1.00CD:127 Normal [facility] Consent for Procedure/Surger yon 07-23-2022 Consent for Procedure/Surgery [id number]#1.00CD:127 Normal [facility] Facesheeton 07-19-2022 Facesheet [id number] 71#1.00CD:127 Normal [facility] CBC AUTO DIFFon 07-06-2022 BASO # 0.1 103/ul Normal 0.0-0.1 [facility] Comment on above: Performed By: #### C NEAL LIPA, NESTOR #### [facility] [address] [place] [address] Dr. Joe Shea Basophils/100 WBC (Bld) 0.8 % Normal 0.2-2.0 [facility] Comment on above: Performed By: #### C NEAL LIPA, NESTOR #### [facility] [address] [place] [address] Dr. Joe Shea EO # 0.4 103/ul Normal 0.0-0.7 [facility] Comment on above: Performed By: #### C NEAL LIPA, NESTOR #### [facility] [address] [place] [address] Dr. Joe Shea Eosinophils/100 WBC (Bld) 4.2 % Normal 0.9-7.0 [facility] Comment on above: Performed By: #### C NEAL LIPA, NESTOR #### [facility] [address] [place] [address] Dr. Joe Shea Erythrocyte distribution width (RBC) [Ratio] 13.5 % Normal 11.0-15.0 [facility] Comment on above: Performed By: #### C NEAL LIPA, NESTOR #### [facility] [address] [place] [address] Dr. Joe Shea Hematocrit (Bld) [Volume fraction] 36.8 % Normal 36.0-48.0 [facility] Comment on above: Performed By: #### C NEAL LIPA, NESTOR #### [facility] [address] [place] [address] Dr. Joe Shea Hemoglobin (Bld) [Mass/Vol] 12.2 g/dL Normal 12.0-16.0 [facility] Comment on above: Performed By: #### C MP LIPA, NESTOR #### [facility] [address] [place] [address] Dr. Joe Shea IG # 0.02 10e3/ul Normal 0.00-0.03 [facility] Comment on above: Performed By: #### C MP LIPA, NESTOR #### [facility] [address] [place] [address] Dr. Joe Shea IG % 0.2 % Normal 0.0-0.5 [facility] Comment on above: Performed By: #### C NEAL LIPA, NESTOR #### [facility] [address] [place] [address] Dr. Joe Shea LYMPH # 2.1 103/ul Normal 1.2-3.8 [facility] Comment on above: Performed By: #### C NEAL LIPA, NESTOR #### [facility] [address] [place] [address] Dr. Joe Shea Lymphocytes/100 WBC (Bld) 20.3 % Critically low 20.5-6 0.0 [facility] Comment on above: Performed By: #### C HUGO DE JESUSA, NESTOR #### [facility] [address] [place] [address] Dr. Joe Shea MANUAL DIFF REQ NO Normal [facility] Comment on above: Performed By: #### C NEAL LIPA, NESTOR #### [facility] [address] [place] [address] Dr. Joe Shea MCH (RBC) [Entitic mass] 28.6 pg Normal 26.7-34.0 [facility] Comment on above: Performed By: #### C MP LIPA, NESTOR #### [facility] [address] [place] [address] Dr. Joe Shea MCHC (RBC) [Mass/Vol] 33.2 g/dL Normal 29.9-35.2 [facility] Comment on above: Performed By: #### C NELA LIPA, NESTOR #### [facility] [address] [place] [address] Dr. Joe Shea MCV (RBC) [Entitic vol] 86.4 fL Normal 81.0-99.0 [facility] Comment on above: Performed By: #### C MP LIPA, NESTOR #### [facility] [address] [place] [address] Dr. Joe Shea MONO # 0.6 103/ul Normal 0.3-0.8 [facility] Comment on above: Performed By: #### C MP, LIPA, NESTOR #### [facility] [address] [place] [address] Dr. Joe Shea Monocytes/100 WBC (Bld) 5.5 % Normal 1.7-12.0 [facility] Comment on above: Performed By: #### C MP, LIPA, NESTOR #### [facility] [address] [place] [address] Dr. Joe Shea NEUT # 7.2 103/ul Critically high 1.4-6.5 [facility] Comment on above: Performed By: #### C MP, LIPA, NESTOR #### [facility] [address] [place] [address] Dr. Joe Shea Neutrophils/100 WBC (Bld) 69.0 % Normal 43.0-75.0 [facility] Comment on above: Performed By: #### C MP, LIPA, NESTOR #### [facility] [address] [place] [address] Dr. Joe Shea Platelet mean volume (Bld) [Entitic vol] 10.8 fL Normal 9.5-13.5 [facility] Comment on above: Performed By: #### C MP, LIPA, NESTOR #### [facility] [address] [place] [address] Dr. Joe Shea PLT 316 103/ul Normal 150-450 [facility] Comment on above: Performed By: #### C MP, LIPA, NESTOR #### [facility] [address] [place] [address] Dr. Joe Shea RBC 4.26 106/ul Normal 4.20-5.40 [facility] Comment on above: Performed By: #### C CARLYN DE JESUS AMY #### [facility] [address] [place] [address] Dr. Joe Shea WBC 10.4 103/ul Normal 4.0-11.0 [facility] Comment on above: Performed By: #### C CARLYN DE JESUS AMY #### [facility] [address] [place] [address] Dr. Joe Shea PREG QUANT HCGon 07-06-2022 HCG QUANT <1 Normal [facility] Comment on above: Performed By: #### C CARLYN DE JESUS AMY #### [facility] [address] [place] [address] Dr. Joe Shea HCG RANGE SEE BELOW Normal [facility] Comment on above: Result Comment: 5-50 0.2-1 WEEK 50-500 1-2 WEEKS 100-5,000 2-3 WEEKS 500-10,000 3-4 WEEKS 1,000-50,000 4-5 WEEKS 10,000-100,000 5-6 WEEKS 15,000-200,000 6-8 WEEKS 10,000-100,000 2-3 MONTHS Performed By: #### C CARLYN DE JESUS AMY #### [facility] [address] [place] [address] Dr. Joe Shea HEPATITIS C ANTIBODYon 06-26 Hep C Virus Ab <0.1 Normal 0.0-0.9 [facility] Comment on above: Result Comment: Nega tive: [...] Hepatitis C Virus (HCV) RNA, Diagnosis, MEGAN (732329) and Hepatitis C Virus (HCV) Antibody with reflex to Quantitative Real-time PCR ([id number]). Performed By: #### L BCLH #### [facility] [address] [place] [address] Dr. Joe Shea Covid-19 PCR (CVDTBH)on 05-31 SARS-CoV-2 (COVID-19) RNA MEGAN+probe Ql (Unsp spec) Not detected Normal NOT DETECTED [facility] Comment on above: Result Comment: This test is not yet approved or cleared by the [place] FDA. When there are no FDA-approved or cleared tests available, and other criteria are met, FDA can make tests available under an emergency access mechanism called an Emergency Use Authorization (EUA). The EUA for this test is supported by the [place] of Health and Human Service's (HHS's) declaration [...] SARS-CoV-2. Performed By: #### C VDTBH #### [facility] [address] [place] [address] Dr. Joe Shea HEP B SURFACE ANTIGEN SCREEN on 06-12-2022 HBsAg Screen Negative Normal Negative [facility] Comment on above: Performed By: #### D HEASUL #### [facility] [address] [address] [address] Joe Shea HIV 1 AND 2 WITH REFLEXon HIV Screen 4th Generation wRfx Non-Reactive Normal Non Reactive [facility] Comment on above: Result Comment: HIV Negative HIV-1/HIV-2 antibodies and HIV-1 p24 antigen were NOT detected. There is no laboratory evidence of HIV infection. Performed By: #### C CARLYN DE JESUS AMY #### [facility] [address] [place] [address] Dr. Joe Shea RPR QUANTon 06-12-2022 Rapid Plasma Reagin, Quant Non-Reactive Normal NonRea< 1:1 [facility] Comment on above: Result Comment: Plea se Note: This test does not meet current guidelines for screening and diagnosis of syphilis. This test is intended for following treatment response in patients being treated for syphilis infection. To screen for syphilis infection, a reflex cascade that includes both RPR and a treponema-specific assay should be utilized, such as Treponema pallidum (Syphilis) Screening [place] (692416) or Rapid Plasma Reagin (RPR) Test With Reflex to Quantitative RPR and Confirmatory Treponema pallidum Antibodies ([id number]). Performed By: #### C CARLYN DE JESUS AMY #### [facility] [address] [place], [place] [address] Dr. Joe Shea Physician Referralon 022 Physician Referral [id number] A3#1.00CD:127 Normal [facility] US PELVIS AND TRANSVAGon US PELVIS AND [...] ANGIE MEJIA Date: 2022-05-31 17:18 Normal [facility] AMYLASEon 05-23-2022 Amylase [Catalytic activity/Vol] 24 U/L Critically low 25-115 [facility] Comment on above: Performed By: #### C CARLYN DE JESUS AMY #### [facility] [address], [place] [address] Dr. Joe Shea CBC AUTO DIFFon 05-23-2022 Eosinophils/100 WBC (Bld) 1.5 % Normal 0.9-7.0 [facility] Comment on above: Performed By: #### L BARRY #### [facility] [address] [place] [address] Dr. Joe Shea Erythrocyte distribution width (RBC) [Ratio] 13.5 % Normal 11.0-15.0 [facility] Comment on above: Performed By: #### L BCL #### [facility] [address] [place] [address] Dr. Joe Shea Hematocrit (Bld) [Volume fraction] 33.0 % Critically low 36.0-48.0 [facility] Comment on above: Performed By: #### L BARRYH #### [facility] [address] [place] [address] Dr. Joe Shea Hemoglobin (Bld) [Mass/Vol] 10.7 g/dL Critically low 12.0-16.0 [facility] Comment on above: Performed By: #### L BCL #### [facility] [address] [place] [address] Dr. Joe Shea LYMPH # 1.2 103/ul Normal 1.2-3.8 [facility] Comment on above: Performed By: #### L BARRY #### [facility] [address] [place] [address] Dr. Joe Shea Lymphocytes/100 WBC (Bld) 20.2 % Critically low 20.5-6 0.0 [facility] Comment on above: Performed By: #### L BCL #### [facility] [address] [place] [address] Dr. Joe Shea MCH (RBC) [Entitic mass] 28.0 pg Normal 26.7-34.0 [facility] Comment on above: Performed By: #### L BCLH #### [facility] [address] [place] [address] Dr. Joe Shea MCHC (RBC) [Mass/Vol] 32.4 g/dL Normal 29.9-35.2 [facility] Comment on above: Performed By: #### L BCLH #### [facility] [address] [place] [address] Dr. Joe Shea Monocytes/100 WBC (Bld) 7.9 % Normal 1.7-12.0 [facility] Comment on above: Performed By: #### L BCL #### [facility] [address] [place] [address] Dr. Joe Shea Neutrophils/100 WBC (Bld) 69.9 % Normal 43.0-75.0 [facility] Comment on above: Performed By: #### L BCL #### [facility] [address] [place] [address] Dr. Joe Shea Platelet mean volume (Bld) [Entitic vol] 10.6 fL Normal 9.5-13.5 [facility] Comment on above: Performed By: #### L BCL #### [facility] [address] [place] [address] Dr. Joe Shea PLT 233 103/ul Normal 150-450 [facility] Comment on above: Performed By: #### L BCL #### [facility] [address] [place] [address] Dr. Joe Shea RBC 3.82 106/ul Critically low 4.20-5.40 [facility] Comment on above: Performed By: #### L BCL #### [facility] [address] [place] [address] Dr. Joe Shea WBC 6.1 103/ul Normal 4.0-11.0 [facility] Comment on above: Performed By: #### L BCL #### [facility] [address] [place] [address] Dr. Joe Shea BASO # 0.0 103/ul Normal 0.0-0.1 [facility] Comment on above: Performed By: #### L BCL #### [facility] [address] [place] [address] Dr. Joe Shea Performed By: #### C MP, LIPA, NESTOR #### [facility] [address] [place] [address] Dr. Joe Shea Basophils/100 WBC (Bld) 0.3 % Normal 0.2-2.0 [facility] Comment on above: Performed By: #### L BCLH #### [facility] [address] [place] [address] Dr. Joe Shea Performed By: #### C CARLYN DE JESUS, NESTOR #### [facility] [address] [place] [address] Dr. Joe Shea EO # 0.1 103/ul Normal 0.0-0.7 [facility] Comment on above: Performed By: #### L BCLH #### [facility] [address] [place] [address] Dr. Joe Shea Performed By: #### C CARLYN DE JESUS NESTOR #### [facility] [address] [place] [address] Dr. Joe Shea Eosinophils/100 WBC (Bld) 1.9 % Normal 0.9-7.0 [facility] Comment on above: Performed By: #### C CARLYN DE JESUS, NESTOR #### [facility] [address] [place] [address] Dr. Joe Shea Erythrocyte distribution width (RBC) [Ratio] 13.4 % Normal 11.0-15.0 [facility] Comment on above: Performed By: #### C CARLYN DE JESUS, NESTOR #### [facility] [address] [place] [address] Dr. Joe Shea Hematocrit (Bld) [Volume fraction] 32.3 % Critically low 36.0-48.0 [facility] Comment on above: Performed By: #### C CARLYN DE JESUS, NESTOR #### [facility] [address] [place] [address] Dr. Joe Shea Hemoglobin (Bld) [Mass/Vol] 10.6 g/dL Critically low 12.0-16.0 [facility] Comment on above: Performed By: #### C HUGO DE JESUSA, NESTOR #### [facility] [address] [place] [address] Dr. Joe Shea IG # 0.01 10e3/ul Normal 0.00-0.03 [facility] Comment on above: Performed By: #### L BCLH #### [facility] [address] [place] [address] Dr. Joe Shea Performed By: #### C MP LIPA, NESTOR #### [facility] [address] [place] [address] Dr. Joe Shea IG % 0.2 % Normal 0.0-0.5 [facility] Comment on above: Performed By: #### L BCLH #### [facility] [address] [place] [address] Dr. Joe Shea Performed By: #### C MP, LIPA, NESTOR #### [facility] [address] [place] [address] Dr. Joe Shea LYMPH # 1.0 103/ul Critically low 1.2-3.8 [facility] Comment on above: Performed By: #### C MP LIPA, NESTOR #### [facility] [address] [place] [address] Dr. Joe Shea Lymphocytes/100 WBC (Bld) 16.6 % Critically low 20.5-6 0.0 [facility] Comment on above: Performed By: #### C MP LIPA, NESTOR #### [facility] [address] [place] [address] Dr. Joe Shea MANUAL DIFF REQ NO Normal [facility] Comment on above: Performed By: #### L BCLH #### [facility] [address] [place] [address] Dr. Joe Shea Performed By: #### C MP, LIPA, NESTOR #### [facility] [address] [place] [address] Dr. Joe Shea MCH (RBC) [Entitic mass] 28.3 pg Normal 26.7-34.0 [facility] Comment on above: Performed By: #### C MP, LIPA, NESTOR #### [facility] [address] [place] [address] Dr. Joe Shea MCHC (RBC) [Mass/Vol] 32.8 g/dL Normal 29.9-35.2 [facility] Comment on above: Performed By: #### C MP, LIPA, NESTOR #### [facility] [address] [place] [address] Dr. Joe Shea MCV (RBC) [Entitic vol] 86.4 fL Normal 81.0-99.0 [facility] Comment on above: Performed By: #### L BARRY #### [facility] [address] [place] [address] Dr. Joe Shea Performed By: #### C MP, LIPA, NESTOR #### [facility] [address] [place] [address] Dr. Joe Shea MONO # 0.5 103/ul Normal 0.3-0.8 [facility] Comment on above: Performed By: #### L BARRY #### [facility] [address] [place] [address] Dr. Joe Shea Performed By: #### C MP, LIPA, NESTOR #### [facility] [address] [place] [address] Dr. Joe Shea Monocytes/100 WBC (Bld) 9.1 % Normal 1.7-12.0 [facility] Comment on above: Performed By: #### C MP, LIPA, NESTOR #### [facility] [address] [place] [address] Dr. Joe Shea NEUT # 4.3 103/ul Normal 1.4-6.5 [facility] Comment on above: Performed By: #### L BARRY #### [facility] [address] [place] [address] Dr. Joe Shea Performed By: #### C MP, LIPA, NESTOR #### [facility] [address] [place] [address] Dr. Joe Shea Neutrophils/100 WBC (Bld) 71.9 % Normal 43.0-75.0 [facility] Comment on above: Performed By: #### C MP, LIPA, NESTOR #### [facility] [address] [place] [address] Dr. Joe Shea Platelet mean volume (Bld) [Entitic vol] 11.0 fL Normal 9.5-13.5 [facility] Comment on above: Performed By: #### C NEAL LIPA, NESTOR #### [facility] [address] [address] [address] Joe Shea PLT 224 103/ul Normal 150-450 [facility] Comment on above: Performed By: #### C MP LIPA, NESTOR #### [facility] Laboratory [address] [address] [address] Joe Shea RBC 3.74 106/ul Critically low 4.20-5.40 [facility] Comment on above: Performed By: #### C NEAL LIPA, NESTOR #### [facility] [address] [address] [address] Joe Shea WBC 5.9 103/ul Normal 4.0-11.0 [facility] Comment on above: Performed By: #### C NEAL LIPA, NESTOR #### [facility] [address] [place] [address] Dr. Joe Shea ER URINE PROFILEon 2 Bilirubin Ql (U) Negative Normal NEGATIVE [facility] Comment on above: Performed By: #### L BCL #### [facility] [address] [place] [address] Dr. Joe Shea Clarity (U) CLEAR Normal CLEAR [facility] Comment on above: Performed By: #### L BCL #### [facility] [address] [place] [address] Dr. Joe Shea Color (U) LT. YELLOW Normal YELLOW [facility] Comment on above: Performed By: #### L BCL #### [facility] [address] [place] [address] Dr. Joe Shea ERUAHD A micrscopic examination will be performed if indicated. Normal [facility] Comment on above: Performed By: #### L BCL #### [facility] [address] [place] [address] Dr. Joe Shea Glucose Ql (U) Negative Normal NEGATIVE [facility] [place] Comment on above: Performed By: #### L BCL #### [facility] [address] [place] [address] Dr. Joe Shea Hemoglobin Ql (U) Negative Normal NEGATIVE [facility] Comment on above: Performed By: #### L BCLH #### [facility] [address] [place] [address] Dr. Joe Shea Ketones Ql (U) Negative Normal NEGATIVE [facility] [place] Comment on above: Performed By: #### L BCLH #### [facility] [address] [place] [address] Dr. Joe Shea LEUKOCYTES Negative Normal NEGATIVE [facility] Comment on above: Performed By: #### L BCLH #### [facility] [address] [address] [address] Joe Shea Nitrite Ql (U) Negative Normal NEGATIVE [facility] Comment on above: Performed By: #### L BCLH #### [facility] [address] [place] [address] Dr. Joe Shea pH (U) 5.5 [pH] Normal 5-9 [facility] Comment on above: Performed By: #### L BCL #### [facility] [address] [place] [address] Dr. Joe Shea SPEC GRAVITY 1.020 Normal 1.005-<=1.[address] [place] [address] Comment on above: Performed By: #### L BCL #### [facility] [address] [place] [address] Dr. Joe Shea UA PROTEIN Negative Normal NEGATIVE/ TRACE [facility] Comment on above: Performed By: #### L BCL #### [facility] [address] [place] [address] Dr. Joe Shea UR MICRO IND NOT INDICATED Normal [facility] Comment on above: Performed By: #### L BCLH #### [facility] [address] [place] [address] Dr. Joe Shea Urobilinogen Qn (U) 0.2 {Pascual'U}/dL Normal 0.2 - 1. 0 [facility] Comment on above: Performed By: #### L BCLH #### [facility] [address] [place] [address] Dr. Joe Shea LIPASEon 05-23-2022 Lipase [Catalytic activity/Vol] 63.0 U/L Critically low 73.0-393.0 [facility] Comment on above: Performed By: #### C MP, LIPA, NESTOR #### [facility] [address] [address] [address] Joe Shea URon 05-23-2022 , QUAL Negative Normal NEGATIVE [facility] Comment on above: Performed By: #### C BC #### [facility] [address] [address] [address] Joe Shea PROF 14(COMP METB)on 022 Albumin [Mass/Vol] 3.7 g/dL Normal 3.4-5.0 [facility] Comment on above: Performed By: #### C MP, LIPA, NESTOR #### [facility] [address] [address] [address] Joe Shea Albumin/Globulin [Mass ratio] 1.4 {ratio} Normal [facility] Comment on above: Performed By: #### C MP, LIPA, NESTOR #### [facility] [address] [address] [address] Joe Shea ALP [Catalytic activity/Vol] 44 U/L Critically low 46-116 [facility] Comment on above: Performed By: #### C MP, LIPA, NESTOR #### [facility] [address] [address] [address] Joe Shea ALT [Catalytic activity/Vol] 24 U/L Normal 14-59 [facility] Comment on above: Performed By: #### C MP, LIPA, NESTOR #### [facility] [address] [address] [address] Joe Shea Anion gap [Moles/Vol] 9.1 mmol/L Normal [facility] Comment on above: Performed By: #### C MP, LIPA, NESTOR #### [facility] [address] [address] [address] Joe Shea AST [Catalytic activity/Vol] 18 U/L Normal 15-37 [facility] Comment on above: Performed By: #### C MP, LIPA, NESTOR #### [facility] [address] [address] [address] Joe Shea Bilirubin [Mass/Vol] 0.2 mg/dL Normal 0.2-1.0 [facility] Comment on above: Performed By: #### C MP, LIPA, NESTOR #### [facility] [address] [place] [address] Dr. Joe Shea Calcium [Mass/Vol] 8.3 mg/dL Critically low 8.5-10.1 [facility] Comment on above: Performed By: #### C MP LIPA, NESTOR #### [facility] [address] [place] [address] Dr. Joe Shea Chloride [Moles/Vol] 105 mmol/L Normal 98-107 [facility] Comment on above: Performed By: #### C MP LIPA, NESTOR #### [facility] [address] [place] [address] Dr. Joe Shea CO2 [Moles/Vol] 29.7 mmol/L Normal 21.0-32.0 [facility] Comment on above: Performed By: #### C MP LIPA, NESTOR #### [facility] [address] [place] [address] Dr. Joe Shea Creatinine [Mass/Vol] 0.61 mg/dL Normal 0.55-1.02 [facility] Comment on above: Performed By: #### C MP LIPA, NESTOR #### [facility] [address] [place] [address] Dr. Joe Shea EGFR-AF SAMMARINESE >60 Normal >=60 The [facility] Comment on above: Performed By: #### C MP, LIPA, NESTOR #### [facility] [address] [place] [address] Dr. Joe Shea EGFR-NON AF SAMMARINESE >60 Normal >=60 [facility] Comment on above: Performed By: #### C MP, LIPA, NESTOR #### [facility] [address] [place] [address] Dr. Joe Shea Globulin (S) [Mass/Vol] 2.6 g/dL Normal [facility] Comment on above: Performed By: #### C CARLYN DE JESUS, NESTOR #### [facility] [address] [address] [address] Joe Shea Glucose [Mass/Vol] 92 mg/dL Normal 74-106 [facility] Comment on above: Performed By: #### C CARLYN DE JESUS, NESTOR #### [facility] [address] [address] [address] Joe Shea Potassium [Moles/Vol] 3.8 mmol/L Normal 3.5-5.1 [facility] Comment on above: Performed By: #### C CARLYN DE JESUS, NESTOR #### [facility] [address] [place] [address] Dr. Joe Shea Protein [Mass/Vol] 6.3 g/dL Critically low 6.4-8.2 [facility] Comment on above: Performed By: #### C CARLYN DE JESUS, NESTOR #### [facility] [address] [address] [address] Joe Shea Sodium [Moles/Vol] 140 mmol/L Normal 136-145 [facility] Comment on above: Performed By: #### C CARLYN DE JESUS, NESTOR #### [facility] [address] [place] [address] Dr. Joe Shea Urea nitrogen [Mass/Vol] 9.0 mg/dL Normal 7.0-18.0 [facility] Comment on above: Performed By: #### C CARLYN DE JESUS, NESTOR #### [facility] [address] [place] [address] Dr. Joe Shea Urea nitrogen/Creatinine [Mass ratio] 14.8 mg/mg Normal [facility] Comment on above: Performed By: #### C CARLYN DE JESUS, NESTOR #### [facility] [address] [place] [address] Dr. Joe Shea US SINGLE QUAD RT [...] by: SHIRLEY PATEL Date: 2022-05-23 08:29 Normal [facility] AMYLASEon 05-22-2022 Amylase [Catalytic activity/Vol] 50 U/L Normal 25-115 [facility] Comment on above: Performed By: #### A MY, CMP, LIPA #### [facility] [address] [place] [address] Dr. Joe Shea CBC AUTO DIFFon 05-22-2022 BASO # 0.1 103/ul Normal 0.0-0.1 [facility] Comment on above: Performed By: #### C MP LIPA, NESTOR #### [facility] [address] [place] [address] Dr. Joe Shea Basophils/100 WBC (Bld) 0.3 % Normal 0.2-2.0 [facility] Comment on above: Performed By: #### C MP LIPA, NESTOR #### [facility] [address] [place] [address] Dr. Joe Shea EO # 0.0 103/ul Normal 0.0-0.7 [facility] Comment on above: Performed By: #### C MP LIPA, NESTOR #### [facility] [address] [place] [address] Dr. Joe Shea Eosinophils/100 WBC (Bld) 0.2 % Critically low 0.9-7. 0 [facility] Comment on above: Performed By: #### C MP LIPA, NESTOR #### [facility] [address] [place] [address] Dr. Joe Shea Erythrocyte distribution width (RBC) [Ratio] 13.3 % Normal 11.0-15.0 [facility] Comment on above: Performed By: #### C NEAL LIPA, NESTOR #### [facility] [address] [place] [address] Dr. Joe Shea Hematocrit (Bld) [Volume fraction] 39.0 % Normal 36.0-48.0 [facility] Comment on above: Performed By: #### C MP LIPA, NESTOR #### [facility] [address] [place] [address] Dr. Joe Shea Hemoglobin (Bld) [Mass/Vol] 12.7 g/dL Normal 12.0-16.0 [facility] Comment on above: Performed By: #### C NEAL LIPA, NESTOR #### [facility] [address] [place] [address] Dr. Joe Shea IG # 0.05 10e3/ul Critically high 0.00-0.03 [facility] Comment on above: Performed By: #### C NEAL LIPA, NESTOR #### [facility] [address] [place] [address] Dr. Joe Shea IG % 0.3 % Normal 0.0-0.5 [facility] Comment on above: Performed By: #### C NEAL LIPA, NESTOR #### [facility] [address] [place] [address] Dr. Joe Shea LYMPH # 0.8 103/ul Critically low 1.2-3.8 [facility] Comment on above: Performed By: #### C NEAL LIPA, NESTOR #### [facility] [address] [place] [address] Dr. Joe Shea Lymphocytes/100 WBC (Bld) 4.4 % Critically low 20.5-6 0.0 [facility] Comment on above: Performed By: #### C NEAL LIPA, NESTOR #### [facility] [address] [place] [address] Dr. Joe Shea MANUAL DIFF REQ NO Normal [facility] Comment on above: Performed By: #### C CARLYN DE JESUS, NESTOR #### [facility] [address] [place] [address] Dr. Joe Shea MCH (RBC) [Entitic mass] 28.1 pg Normal 26.7-34.0 [facility] Comment on above: Performed By: #### C CARLYN DE JESUS, NESTOR #### [facility] [address] [place] [address] Dr. Joe Shea MCHC (RBC) [Mass/Vol] 32.6 g/dL Normal 29.9-35.2 [facility] Comment on above: Performed By: #### C HUGO DE JESUSA, NESTOR #### [facility] [address] [place] [address] Dr. Joe Shea MCV (RBC) [Entitic vol] 86.3 fL Normal 81.0-99.0 [facility] Comment on above: Performed By: #### C HUGO DE JESUSA, NESTOR #### [facility] [address] [place] [address] Dr. Joe Shea MONO # 0.4 103/ul Normal 0.3-0.8 [facility] Comment on above: Performed By: #### C HUGO DE JESUSA, NESTOR #### [facility] [address] [place] [address] Dr. Joe Shea Monocytes/100 WBC (Bld) 2.2 % Normal 1.7-12.0 [facility] Comment on above: Performed By: #### C NEAL LIPA, NESTOR #### [facility] [address] [place] [address] Dr. Joe Shea NEUT # 16.7 103/ul Critically high 1.4-6.5 [facility] Comment on above: Performed By: #### C NEAL LIPA, NESTOR #### [facility] [address] [place] [address] Dr. Joe Shea Neutrophils/100 WBC (Bld) 92.6 % Critically high 43.0- 75.0 [facility] Comment on above: Performed By: #### C MP, LIPA, NESTOR #### [facility] [address] [address] [address] Joe Shea Platelet mean volume (Bld) [Entitic vol] 11.0 fL Normal 9.5-13.5 [facility] Comment on above: Performed By: #### C MP, LIPA, NESTOR #### [facility] [address] [address] [address] Joe Shea PLT 323 103/ul Normal 150-450 [facility] Comment on above: Performed By: #### C MP, LIPA, NESTOR #### [facility] [address] [place] [address] Dr. Joe Shea RBC 4.52 106/ul Normal 4.20-5.40 [facility] Comment on above: Performed By: #### C MP, LIPA, NESTOR #### [facility] [address] [place] [address] Dr. Joe Shea WBC 18.0 103/ul Critically high 4.0-11.0 [facility] Comment on above: Performed By: #### C NEAL, LIPA, NESTOR #### [facility] [address] [place] [address] Dr. Joe Shea ER URINE PROFILEon 2 Bilirubin Ql (U) Negative Normal NEGATIVE [facility] Comment on above: Performed By: #### Althea GTZ #### [facility] [address] [place] [address] Dr. Joe Shea Clarity (U) CLEAR Normal CLEAR [facility] Comment on above: Performed By: #### Althea GTZ #### [facility] [address] [place] [address] Dr. Joe Shea Color (U) YELLOW Normal YELLOW [facility] Comment on above: Performed By: #### Althea GTZ #### [facility] [address] [place] [address] Dr. Joe Shea ERUAHAlthea A micrscopic examination will be performed if indicated. Normal [facility] Comment on above: Performed By: #### Althea GTZ #### [facility] [address] [address] [address] Joe Shea Glucose Ql (U) Negative Normal NEGATIVE [facility] Comment on above: Performed By: #### Althea GTZ #### [facility] [address] [address] [address] Joe Shea Hemoglobin Ql (U) Negative Normal NEGATIVE [facility] Comment on above: Performed By: #### Althea GTZ #### [facility] [address] [address] [address] Joe Shea Ketones Ql (U) 15 mg/dl Abnormal NEGATIVE [facility] Comment on above: Performed By: #### Althea GTZ #### [facility] [address] [place] [address] Dr. Joe Shea LEUKOCYTES Negative Normal NEGATIVE [facility] Comment on above: Performed By: #### Althea GTZ #### [facility] [address] [place] [address] Dr. Joe Shae Nitrite Ql (U) Negative Normal NEGATIVE [facility] Comment on above: Performed By: #### Althea GTZ #### [facility] [address] [address] [address] oJe Shea pH (U) 5.5 [pH] Normal 5-9 [facility] Comment on above: Performed By: #### Althea GTZ #### [facility] [address] [place] [address] Dr. Joe Shea SPEC GRAVITY >=1.030 Abnormal 1.005-<=1.[address] [place] [address] Comment on above: Performed By: #### Althea GTZ #### [facility] [address] [place] [address] Dr. Joe Shea UA PROTEIN Negative Normal NEGATIVE/ TRACE [facility] Comment on above: Performed By: #### Althea GTZ #### [facility] [address] [place] [address] Dr. Joe Shea UR MICRO IND NOT INDICATED Normal [facility] Comment on above: Performed By: #### Althea GTZ #### [facility] [address] [address] [address] Joe Shea Urobilinogen Qn (U) 1.0 {Pascual'U}/dL Normal 0.2 - 1. 0 [facility] Comment on above: Performed By: #### D TRESA #### [facility] [address] [address] [address] Joe Shea LACTATE/LACTIC ACIDon 2021 Lactate [Moles/Vol] 1.0 mmol/L Normal 0.4-1.9 [facility] Comment on above: Performed By: #### C BC #### [facility] [address] [place] [address] Dr. Joe Shea LIPASEon 05-22-2022 Lipase [Catalytic activity/Vol] 205.0 U/L Normal 73.0-393.0 [facility] Comment on above: Performed By: #### A MY, CMP, LIPA #### [facility] [address] [place] [address] Dr. Joe Shea MRI BRAIN WO CONon [...] ANGIE LO Date: 2022-05-22 16:17 Normal [facility] URon 05-22-2022 , QUAL Negative Normal NEGATIVE [facility] Comment on above: Performed By: #### D TRESA #### [facility] [address] [place] [address] Dr. Joe Shea PROF 14(COMP METB)on 022 Albumin [Mass/Vol] 4.5 g/dL Normal 3.4-5.0 [facility] Comment on above: Performed By: #### Althea GTZ #### [facility] [address] [address] [address] Joe Shea Albumin/Globulin [Mass ratio] 1.4 {ratio} Normal [facility] Comment on above: Performed By: #### Althea GTZ #### [facility] [address] [address] [address] Joe Shea ALP [Catalytic activity/Vol] 60 U/L Normal 46-116 [facility] Comment on above: Performed By: #### Althea GTZ #### [facility] [address] [address] [address] Joe Shea ALT [Catalytic activity/Vol] 17 U/L Normal 14-59 [facility] Comment on above: Performed By: #### Althea GTZ #### [facility] [address] [address] [address] Joe Shea Anion gap [Moles/Vol] 10.9 mmol/L Normal [facility] Comment on above: Performed By: #### Alteha GTZ #### [facility] [address] [address] [address] Joe Shea AST [Catalytic activity/Vol] 19 U/L Normal 15-37 [facility] Comment on above: Performed By: #### Althea GTZ #### [facility] [address] [address] [address] Joe Shea Bilirubin [Mass/Vol] 0.8 mg/dL Normal 0.2-1.0 [facility] Comment on above: Performed By: #### Althea GTZ #### [facility] [address] [address] [address] Joe Shea Calcium [Mass/Vol] 9.0 mg/dL Normal 8.5-10.1 [facility] Comment on above: Performed By: #### Althea GTZ #### [facility] [address] [address] [address] Joe Shea Chloride [Moles/Vol] 102 mmol/L Normal 98-107 [facility] Comment on above: Performed By: #### Althea GTZ #### [facility] [address] [address] [address] Joe Shea CO2 [Moles/Vol] 28.7 mmol/L Normal 21.0-32.0 [facility] Comment on above: Performed By: #### Althea GTZ #### [facility] [address] [address] [address] Joe Shea Creatinine [Mass/Vol] 0.73 mg/dL Normal 0.55-1.02 [facility] Comment on above: Performed By: #### Althea GTZ #### [facility] [address] [address] [address] Joe Shea EGFR-AF SAMMARINESE >60 Normal >=60 [facility] Comment on above: Performed By: #### Althea GTZ #### [facility] [address] [address] [address] Joe Shea EGFR-NON AF SAMMARINESE >60 Normal >=60 [facility] Comment on above: Performed By: #### Althea GTZ #### [facility] [address] [address] [address] Joe Shea Globulin (S) [Mass/Vol] 3.2 g/dL Normal [facility] Comment on above: Performed By: #### Althea GTZ #### [facility] [address] [address] [address] Joe Shea Glucose [Mass/Vol] 113 mg/dL Critically high 74-106 [facility] Comment on above: Performed By: #### Althea GTZ #### [facility] [address] [address] [address] Joe Shea Potassium [Moles/Vol] 3.6 mmol/L Normal 3.5-5.1 [facility] Comment on above: Performed By: #### Althea GTZ #### [facility] [address] [address] [address] Joe Shea Protein [Mass/Vol] 7.7 g/dL Normal 6.4-8.2 [facility] Comment on above: Performed By: #### Althea GTZ #### [facility] [address] [address] [address] Joe Shea Sodium [Moles/Vol] 138 mmol/L Normal 136-145 [facility] Comment on above: Performed By: #### Althea GTZ #### [facility] [address] [address] [address] Joe Shea Urea nitrogen [Mass/Vol] 9.0 mg/dL Normal 7.0-18.0 [facility] Comment on above: Performed By: #### Althea GTZ #### [facility] [address] [address] [address] Joe Shea Urea nitrogen/Creatinine [Mass ratio] 12.3 mg/mg Normal [facility] Comment on above: Performed By: #### Althea GTZ #### [facility] [address] [address] [address] Joe Shea XR CHEST 2 Von [...] by: ANA COTE Date: 2022-05-22 02:56 Normal [facility] PROGESTERONEon 05-08-2022 Progesterone 18.1 ng/mL Normal [facility] Comment on above: Result Comment: Foll icular phase 0.1 - 0.9 Luteal phase 1.8 - 23.9 Ovulation phase 0.1 - 12.0 First trimester 11.0 - 44.3 Second trimester 25.4 - 83.3 Third trimester 58.7 - 214.0 Postmenopausal 0.0 - 0.1 Performed By: #### C YANIRA #### [facility] [address] [address] [address] Joe Shea DHEA SERUMon 04-12-2022 Dehydroepiandrosterone (DHEA) 577 ng/dL Normal 31-701 [facility] Comment on above: Result Comment: Age 1 [...] 701 Performed By: #### Darius DOYLE #### [facility] [address] [place], [place] [address] Dr. Joe Shea PROGESTERONEon 04-10-2022 Progesterone 16.0 ng/mL Normal [facility] Comment on above: Result Comment: Foll icular phase 0.1 - 0.9 Luteal phase 1.8 - 23.9 Ovulation phase 0.1 - 12.0 First trimester 11.0 - 44.3 Second trimester 25.4 - 83.3 Third trimester 58.7 - 214.0 Postmenopausal 0.0 - 0.1 Performed By: ###Asiya GTZ #### [facility] [address] [place] [address] Dr. Joe Shea DHEA-SULFATEon 04-06-2022 DHEA-Sulfate 241.0 ug/dL Normal 110.0-431.7 [facility] Comment on above: Performed By: ###Asiya GTZ #### [facility] [address] [place] [address] Dr. Joe Shea FSHon 04-06-2022 FSH 6.6 mIU/mL Normal [facility] Comment on above: Result Comment: Adul t Female: Follicular phase 3.5 - 12.5 Ovulation phase 4.7 - 21.5 Luteal phase 1.7 - 7.7 Postmenopausal 25.8 - 134.8 Performed By: #### Althea GTZ #### [facility] [address] [place] [address] Dr. Joe Shea LUTEINIZING HORMONE (LH)on LH 19.8 mIU/mL Normal [facility] Comment on above: Result Comment: Adul t Female: Follicular phase 2.4 - 12.6 Ovulation phase 14.0 - 95.6 Luteal phase 1.0 - 11.4 Postmenopausal 7.7 - 58.5 Performed By: #### L BCLH #### [facility] [address] [place] [address] Dr. Joe Shea CBC AUTO DIFFon 04-05-2022 BASO # 0.1 103/ul Normal 0.0-0.1 [facility] Comment on above: Performed By: #### C BC #### [facility] [address] [place] [address] Dr. Joe Shea Basophils/100 WBC (Bld) 0.9 % Normal 0.2-2.0 [facility] Comment on above: Performed By: #### C BC #### [facility] [facility] [address] [place] [address] Dr. Joe Shea EO # 0.2 103/ul Normal 0.0-0.7 [facility] Comment on above: Performed By: #### C BC #### [facility] [address] [place] [address] Dr. Joe Shea Eosinophils/100 WBC (Bld) 2.6 % Normal 0.9-7.0 [facility] Comment on above: Performed By: #### C BC #### [facility] [address] [place] [address] Dr. Joe Shea Erythrocyte distribution width (RBC) [Ratio] 13.1 % Normal 11.0-15.0 [facility] Comment on above: Performed By: #### C BC #### [facility] [address] [place] [address] Dr. Joe Shea Hematocrit (Bld) [Volume fraction] 38.2 % Normal 36.0-48.0 [facility] Comment on above: Performed By: #### C BC #### [facility] [address] [place] [address] Dr. Joe Shea Hemoglobin (Bld) [Mass/Vol] 12.3 g/dL Normal 12.0-16.0 [facility] Comment on above: Performed By: #### C BC #### [facility] [address] [place] [address] Dr. Joe Shea IG # 0.01 10e3/ul Normal 0.00-0.03 [facility] Comment on above: Performed By: #### C BC #### [facility] [address] [place] [address] Dr. Joe Shea IG % 0.2 % Normal 0.0-0.5 [facility] Comment on above: Performed By: #### C BC #### [facility] [address] [place] [address] Dr. Joe Shea LYMPH # 1.7 103/ul Normal 1.2-3.8 [facility] Comment on above: Performed By: #### C BC #### [facility] [address] [place] [address] Dr. Joe Shea Lymphocytes/100 WBC (Bld) 29.2 % Normal 20.5-60.0 [facility] Comment on above: Performed By: #### C BC #### [facility] [address] [place] [address] Dr. Joe Shea MANUAL DIFF REQ NO Normal [facility] Comment on above: Performed By: #### C BC #### [facility] [address] [place] [address] Dr. Joe Shea MCH (RBC) [Entitic mass] 28.4 pg Normal 26.7-34.0 [facility] Comment on above: Performed By: #### C BC #### [facility] [address] [place] [address] Dr. Joe Shea MCHC (RBC) [Mass/Vol] 32.2 g/dL Normal 29.9-35.2 [facility] Comment on above: Performed By: #### C BC #### [facility] [address] [place] [address] Dr. Joe Shea MCV (RBC) [Entitic vol] 88.2 fL Normal 81.0-99.0 [facility] Comment on above: Performed By: #### C BC #### [facility] [address] [place] [address] Dr. Joe Shea MONO # 0.5 103/ul Normal 0.3-0.8 [facility] Comment on above: Performed By: #### C BC #### [facility] [address] [address] [address] Joe Shea Monocytes/100 WBC (Bld) 8.2 % Normal 1.7-12.0 [facility] Comment on above: Performed By: #### C BC #### [facility] [address] [address] [address] Joe Shea NEUT # 3.4 103/ul Normal 1.4-6.5 [facility] Comment on above: Performed By: #### C BC #### [facility] [address] [address] [address] Joe Shea Neutrophils/100 WBC (Bld) 58.9 % Normal 43.0-75.0 [facility] Comment on above: Performed By: #### C BC #### [facility] [address] [place] [address] Dr. Joe Shea Platelet mean volume (Bld) [Entitic vol] 11.5 fL Normal 9.5-13.5 [facility] Comment on above: Performed By: #### C BC #### [facility] [address] [place] [address] Dr. Joe Shea PLT 233 103/ul Normal 150-450 [facility] Comment on above: Performed By: #### C BC #### [facility] [address] [place] [address] Dr. Joe Shea RBC 4.33 106/ul Normal 4.20-5.40 [facility] Comment on above: Performed By: #### C BC #### [facility] [address] [place] [address] Dr. Joe Shea WBC 5.8 103/ul Normal 4.0-11.0 [facility] Comment on above: Performed By: #### C BC #### [facility] [address] [place] [address] Dr. Joe Shea GLYCOHEMOGLOBIN A1Con 2021 ADA RECOMMENDATION SEE BELOW Normal [facility] Comment on above: Result Comment: ADA RECOMMENDED LIMIT 4.0 - 6.0 ADA THERAPEUTIC TARGET < 7.0 ACTION SUGGESTED > 7.0 Performed By: #### C CARLYN DE JESUS AMY #### [facility] [address] [place] [address] Dr. Joe Shea Glucose [Mass/Vol] 105 mg/dL Normal [facility] Comment on above: Performed By: #### C CARLYN DE JESUS AMY #### [facility] [address] [place] [address] Dr. Joe Shea HbA1c (Bld) [Mass fraction] 5.3 % Normal 4.5-6.2 [facility] Comment on above: Performed By: #### C CARLYN DE JESUS AMY #### [facility] [address] [place] [address] Dr. Joe Shea TSHon 04-05-2022 TSH 0.609 uIU/mL Normal 0.358-3.740 [facility] Comment on above: Performed By: #### C BC #### [facility] [address] [place] [address] Dr. Joe Shea US PELVIS AND TRANSVAGon [...] by: ANGIE MEJIA Date: 2022-04-05 17:23 Normal [facility] AMYLASEon 03-10-2022 Amylase [Catalytic activity/Vol] 64 U/L Normal 25-115 [facility] Comment on above: Performed By: #### C BC #### [facility] [address] [address] [address] Joe Shea CBC AUTO DIFFon 03-10-2022 BASO # 0.1 103/ul Normal 0.0-0.1 [facility] Comment on above: Performed By: #### C BC #### [facility] [address] [address] [address] Joe Shea Basophils/100 WBC (Bld) 0.6 % Normal 0.2-2.0 [facility] Comment on above: Performed By: #### C BC #### [facility] [address] [place] [address] Dr. Joe Shea EO # 0.3 103/ul Normal 0.0-0.7 [facility] Comment on above: Performed By: #### C BC #### [facility] [address] [place] [address] Dr. Joe Shea Eosinophils/100 WBC (Bld) 1.7 % Normal 0.9-7.0 [facility] Comment on above: Performed By: #### C BC #### [facility] [address] [place] [address] Dr. Joe Shea Erythrocyte distribution width (RBC) [Ratio] 13.1 % Normal 11.0-15.0 [facility] Comment on above: Performed By: #### C BC #### [facility] [address] [place] [address] Dr. Joe Shea Hematocrit (Bld) [Volume fraction] 37.9 % Normal 36.0-48.0 [facility] Comment on above: Performed By: #### C BC #### [facility] [address] [place] [address] Dr. Joe Shea Hemoglobin (Bld) [Mass/Vol] 12.2 g/dL Normal 12.0-16.0 [facility] Comment on above: Performed By: #### C BC #### [facility] [address] [place] [address] Dr. Joe Shea IG # 0.05 10e3/ul Critically high 0.00-0.03 [facility] Comment on above: Performed By: #### C BC #### [facility] [address] [place] [address] Dr. Joe Shea IG % 0.3 % Normal 0.0-0.5 [facility] Comment on above: Performed By: #### C BC #### [facility] [address] [place] [address] Dr. Joe Shea LYMPH # 4.7 103/ul Critically high 1.2-3.8 [facility] Comment on above: Performed By: #### C BC #### [facility] [address] [place] [address] Dr. Joe Shea Lymphocytes/100 WBC (Bld) 28.3 % Normal 20.5-60.0 [facility] Comment on above: Performed By: #### C BC #### [facility] [address] [place] [address] Dr. Joe Shea MANUAL DIFF REQ NO Normal [facility] Comment on above: Performed By: #### C BC #### [facility] [address] [place] [address] Dr. Joe Shea MCH (RBC) [Entitic mass] 27.9 pg Normal 26.7-34.0 [facility] Comment on above: Performed By: #### C BC #### [facility] [address] [place] [address] Dr. Joe Shea MCHC (RBC) [Mass/Vol] 32.2 g/dL Normal 29.9-35.2 [facility] Comment on above: Performed By: #### C BC #### [facility] [address] [place] [address] Dr. Joe Shea MCV (RBC) [Entitic vol] 86.5 fL Normal 81.0-99.0 [facility] Comment on above: Performed By: #### C BC #### [facility] [address] [place] [address] Dr. Joe Shea MONO # 0.9 103/ul Critically high 0.3-0.8 [facility] Comment on above: Performed By: #### C BC #### [facility] [address] [address] [address] Joe Shea Monocytes/100 WBC (Bld) 5.5 % Normal 1.7-12.0 [facility] Comment on above: Performed By: #### C BC #### [facility] [address] [address] [address] Joe Shea NEUT # 10.5 103/ul Critically high 1.4-6.5 [facility] Comment on above: Performed By: #### C BC #### [facility] [address] [place] [address] Dr. Joe Shea Neutrophils/100 WBC (Bld) 63.6 % Normal 43.0-75.0 [facility] Comment on above: Performed By: #### C BC #### [facility] [address] [place] [address] Dr. Joe Shea Platelet mean volume (Bld) [Entitic vol] 11.1 fL Normal 9.5-13.5 [facility] Comment on above: Performed By: #### C BC #### [facility] [address] [place] [address] Dr. Joe Shea PLT 428 103/ul Normal 150-450 [facility] Comment on above: Performed By: #### C BC #### [facility] [address] [place] [address] Dr. Joe Shea RBC 4.38 106/ul Normal 4.20-5.40 [facility] Comment on above: Performed By: #### C BC #### [facility] [address] [place] [address] Dr. Joe Shea WBC 16.6 103/ul Critically high 4.0-11.0 [facility] Comment on above: Performed By: #### C BC #### [facility] [address] [place] [address] ABD/PELV W CONon [...] by: MURALI STRANGE Date: 2022-03-10 16:59 Normal [facility] LIPASEon 03-10-2022 Lipase [Catalytic activity/Vol] 81.0 U/L Normal 73.0-393.0 [facility] Comment on above: Performed By: #### C BC #### [facility] [address] [place] [address] Dr. Joe Shea LIVER PROFILEon 03-10-2022 Albumin [Mass/Vol] 4.2 g/dL Normal 3.4-5.0 [facility] Comment on above: Performed By: #### C BC #### [facility] [address] [place] [address] Dr. Joe Shea Albumin/Globulin [Mass ratio] 1.4 {ratio} Normal [facility] Comment on above: Performed By: #### C BC #### [facility] [address] [place] [address] Dr. Joe Shea ALP [Catalytic activity/Vol] 50 U/L Normal 46-116 [facility] Comment on above: Performed By: #### C BC #### [facility] [address] [address] [address] Joe Shea ALT [Catalytic activity/Vol] 14 U/L Normal 14-59 [facility] Comment on above: Performed By: #### C BC #### [facility] [address] [address] [address] Joe Shea AST [Catalytic activity/Vol] 13 U/L Critically low 15-37 [facility] Comment on above: Performed By: #### C BC #### [facility] [address] [address] [address] Joe Shea BILI, CONJUGATED 0.1 mg/dL Normal 0.0-0.2 [facility] Comment on above: Performed By: #### C BC #### [facility] [address] [address] [address] Joe Shea Bilirubin [Mass/Vol] 0.3 mg/dL Normal 0.2-1.0 [facility] Comment on above: Performed By: #### C BC #### [facility] [address] [address] [address] Joe Shea Globulin (S) [Mass/Vol] 3.1 g/dL Normal [facility] Comment on above: Performed By: #### C BC #### [facility] [address] [address] [address] Joe Shea Protein [Mass/Vol] 7.3 g/dL Normal 6.4-8.2 [facility] Comment on above: Performed By: #### C BC #### [facility] [address] [address] [address] Joe Shea PREG HCG QUALon 03-10-2022 , QUAL Negative Normal NEGATIVE [facility] Comment on above: Performed By: #### L BCLH #### [facility] [address] [address] [address] Joe Shea PROF CHEM 8 (BAS METB)on Anion gap [Moles/Vol] 17.6 mmol/L Normal [facility] Comment on above: Performed By: #### C MP, LIPA, NESTOR #### [facility] [address] [address] [address] Joe Shea Calcium [Mass/Vol] 9.0 mg/dL Normal 8.5-10.1 [facility] Comment on above: Performed By: #### C CARLYN DE JESUS AMY #### [facility] [address] [place] [address] Dr. Joe Shea Chloride [Moles/Vol] 102 mmol/L Normal 98-107 [facility] Comment on above: Performed By: #### C CARLYN DE JESUS NESTOR #### [facility] [address] [place] [address] Dr. Joe Shea CO2 [Moles/Vol] 23.4 mmol/L Normal 21.0-32.0 [facility] Comment on above: Performed By: #### C CARLYN DE JESUS AMY #### [facility] [address] [place] [address] Dr. Joe Shea Creatinine [Mass/Vol] 0.84 mg/dL Normal 0.55-1.02 [facility] Comment on above: Performed By: #### C CARLYN DE JESUS, NESTOR #### [facility] [address] [place] [address] Dr. Joe Shea EGFR-AF SAMMARINESE >60 Normal >=60 [facility] Comment on above: Performed By: #### C CARLYN DE JESUS AMY #### [facility] [address] [place] [address] Dr. Joe Shea EGFR-NON AF SAMMARINESE >60 Normal >=60 [facility] Comment on above: Performed By: #### C CARLYN DE JESUS, NESTOR #### [facility] [address] [place] [address] Dr. Joe Shea Glucose [Mass/Vol] 149 mg/dL Critically high 74-106 [facility] Comment on above: Performed By: #### C CARLYN DE JESUS, NESTOR #### [facility] [address] [place] [address] Dr. Joe Shea Potassium [Moles/Vol] 2.9 mmol/L Critically low 3.5-5.1 [facility] Comment on above: Performed By: #### C CARLYN DE JESUS, NESTOR #### [facility] [address] [place], [place] [id number] Dr. Joe Shea Sodium [Moles/Vol] 139 mmol/L Normal 136-145 [facility] Comment on above: Performed By: #### C CARLYN DE JESUS AMY #### [facility] [address] [address] [address] Joe Shea Urea nitrogen [Mass/Vol] 11.0 mg/dL Normal 7.0-18.0 [facility] Comment on above: Performed By: #### C CARLYN DE JESUS AMY #### [facility] [address] [address] [address] Joe Shea Urea nitrogen/Creatinine [Mass ratio] 13.1 mg/mg Normal [facility] Comment on above: Performed By: #### C CARLYN DE JESUS AMY #### [facility] [address] [address] [address] Joe Shea XR CSPINE 2_3 VIEWSon [...] ANGIE MEJIA Date: 2022-01-18 08:03 Normal [facility] C BP Strepon 12-23-2019 C BP Strep This is strictly a screening test for Strep Group A( Streptococcus pyogenes). No other pathogens will be noted. Final Backup plate negative for Group A Streptococus Resulted at [facility] Normal [facility] Comment on above: Performed By: #### B P #### [facility] (DEFAULT) [address] [place] [address] [facility] [address] [place] [address] Ambulatory Patient Education on 12-21-2019 Ambulatory Patient [...] liver damage and Marisol syndrome. Although rare, Amrisol syndrome is a very serious illness usually [...] a child 2 years or older. ? [id number] [employer]. [address] [place] [address]. All rights reserved. This information is not intended as a substitute for professional medical care. Always follow your healthcare professional's instructions. Strep today is Negative. Will send for culture to [facility] and notify if it returns positive. Take medication as prescribed. Discontinue for a negative strep culture. Discard and replace toothbrush after taking antibiotics for at least 24 hours. May use kntx-cby-tahfvvo Tylenol and Motrin for pain relief. May use of slbf-jqj-rsoiluf Chloraseptic throat spray, lozenges, cool or warm [...] tabs, 0 Refill(s), 12/26/19 14:42:00 EDT, Pharmacy: [id number] Normal [facility] OR Trackon 12-21-2019 BVO Red Swab # 1 [facility] Comment on above: Performed By: #### O [facility] Tracking Order #### [facility] [address] [place] [address] Urgent Care Office/Clinic No sabiha 12-21-2019 Urgent [...] POC: negative. Swab will be sent to [facility] for culture. We will call if positive and treat appropriately. Additional Vitals Body Mass Index Measured: 18.43 kg/m2 Peripheral Pulse Rate: 111 bpm High Assessment/Plan 1. Sore throat Strep today is Negative. Will send for culture to [facility] and notify if it returns positive. Take medication as prescribed. Discontinue for a negative strep culture. Discard and replace toothbrush after taking antibiotics for at least 24 hours. May use ytna-smn-hbbdmld Tylenol and Motrin for pain relief. May use of jklv-iua-zlfrsng Chloraseptic throat spray, lozenges, cool or warm [...] tabs, 0 Refill(s), 12/26/19 14:42:00 EDT, Pharmacy: [id number] Physician Comments Centor criteria reviewed. [...] by Rosa Fitch 12/21/19 15:01 EDT Normal [facility] Vital Signs Date Time Vital Sign Value Performing Clinician Facility 03-28-2023 10:16-0400 Body height 157.48 cm Referring Provider Unknown [id number] [address] [place] Work Phone: 03-28-2023 10:16-0400 Body mass index (BMI) [Ratio] 23.78 kg/m2 Referring Provider Unknown [id number] [address] [place] Work Phone: 03-28-2023 10:16-0400 Body surface area Derived from formula 1.59 m2 Referring Provider Unknown [id number] [address] [place] Work Phone: 03-28-2023 10:16-0400 Body weight 58.97 kg Referring Provider Unknown [id number] [address] [place] Work Phone: 03-28-2023 10:16-0400 Diastolic blood pressure 65 mm[Hg] Referring Provider Unknown [id number] [address] [place] Work Phone: 03-28-2023 10:16-0400 Heart rate 96 /min Referring Provider Unknown [id number] [address] [place] Work Phone: 03-28-2023 10:16-0400 Systolic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
== END 2023-06-28 11:00 | disposition home or self-care (01) ==
LOC: FBCO 07:07 → FBC 09:59
PROVIDERS: PCP Family Medicine; Visit Provider Obstetrics & Gynecology
DX: D50.9 Iron deficiency anemia, unspecified (principal); O36.5930 Maternal care for other known or suspected poor fetal growth, third trimester, not applicable or unspecified; O41.8X30 Other specified disorders of amniotic fluid and membranes, third trimester, not applicable or unspecified; O46.8X3 Other antepartum hemorrhage, third trimester; O30.043 Twin pregnancy, dichorionic/diamniotic, third trimester
CPT/HCPCS: 59025

== ENCOUNTER 2023-07-02 07:18 | Outpatient (OUT) | payer OTHER, SELFPAY ==
--- OUTSIDE RECORDS SUMMARY | 2023-07-02 07:22 | XMS_ITS | CCD ---
Author Name Unknown Address [address] [place] [address] Organization [facility] Care Team Providers Care Carpenter Apprentice Name Role Phone NO FAMILY, PHYSICIAN Primary Care Provider UnaNela Roberts Primary Care Provider SUKI CONDE Primary Care Physician [phone] AMAYA PROVIDER, SUKI Referring Unavailab le NILL, [...] ., DR GATICA Consulting Unavailable BENEDICT, DR AWTSON Consulting Unavailable BENEDICT, DR WATSON Admitting Unavailable [...] Unavailable AMAYA, DR SUKI Kong Attending Unavailable ESSEX, DR ANGIE Arce Consulting Unavailable REQUEST, DR FERNANDO LISTED Primary Care Unavaila caitie CONDE, DR SUKI Kong Consulting Unavailable Filippo Larson Unavailable Unknown, Referring Provider Unavailable Unav ailable Ramakrishna Schwarz Attending Unavailable UNKNOWN, PCP Primary Care Unavailable [place] Attending Unavailable NESTOR PRICE Attending Unavailable NESTOR PRICE Attending Unavailable Unavailable Unavailable Unavailable Allergies Allergy Classification Reported Allergen(s) Allergy Type Date of Onset Reaction(s) Facility (1 source) No Known Medication Allergies; Translations: [No Known Medication Allergies] Propensity to adverse reactions (disorder) [facility] Repository Medications Current Medications Medication Drug Class(es) [...] 2 Episodic Other aftercare (1 source) Other alf (current) drug therapy; Translations: [OTH SKILLED NURSING CURRENT DRUG THERAPY] Onset: 3 Episodic Other [...] object(s), not elsewhere classified, initial encounter; Translations: [[facility] SHRP OB NOT ELSW CLASS INI] Onset: [...] fallopian tube and broad ligament, unspecified; Translations: [[facility] NONINFL D/O OVARY TUBE AND BRD LIG] [...] a) No falls within the last year [id number] [address] [place] Work Phone: Tobacco use status CPHS a) Yes M G-OBGYN-MAC [address] [place] Work Phone: Blood Pressure Cuff Size Adult [id number] [address] [place] Work Phone: Blood Pressure Cuff Size Yes [id number] 1200 [place] Work Phone: No Panel Informationon 03-28 Normal [id number]-LPG [address] [place] Work Phone: OB Completed scan [...] gestation - rr cfDNA - Referred from [place] because of subchorionic hematomas A targeted anatomic [...] previously been seen by Dr. Gonzales in [place]. Twins are doing well, their growth is [...] EFW (oz) 12 oz EFW by: Hadlock (BMV-EM-GM-FL) Extended Interpretative Dancer 5.8 mm CM 3.9 mm 16% Nicolaides [...] mm 61 (more content not included)... Normal [facility] AMYLASEon 10-28-2022 Amylase [Catalytic activity/Vol] 35 U/L Normal 25-115 [facility] Comment on above: Performed By: #### C NEAL LIPA, NESTOR #### [facility] [address] [place] [address] Dr. Joe Shea CBC AUTO DIFFon 10-28-2022 BASO # 0.1 103/ul Normal 0.0-0.1 [facility] Comment on above: Performed By: #### C NEAL LIPA, NESTOR #### [facility] [address] [place] [address] Dr. Joe Shea Basophils/100 WBC (Bld) 0.4 % Normal 0.2-2.0 [facility] Comment on above: Performed By: #### C NEAL LIPA, NESTOR #### [facility] [address] [place] [address] Dr. Joe Shea EO # 0.1 103/ul Normal 0.0-0.7 [facility] Comment on above: Performed By: #### C NEAL LIPA, NESTOR #### [facility] [address] [place] [address] Dr. Joe Shea Eosinophils/100 WBC (Bld) 0.8 % Critically low 0.9-7. 0 [facility] Comment on above: Performed By: #### C HUGO DE JESUSA NESTOR #### [facility] [address] [place] [address] Dr. Joe Shea Erythrocyte distribution width (RBC) [Ratio] 13.2 % Normal 11.0-15.0 [facility] Comment on above: Performed By: #### C NEAL LIPA, NESTOR #### [facility] [address] [place] [address] Dr. Joe Shea Hematocrit (Bld) [Volume fraction] 37.2 % Normal 36.0-48.0 [facility] Comment on above: Performed By: #### C NEAL LIPA, NESTOR #### [facility] [address] [place] [address] Dr. Joe Shea Hemoglobin (Bld) [Mass/Vol] 12.0 g/dL Normal 12.0-16.0 [facility] Comment on above: Performed By: #### C NEAL LIPA, NESTOR #### [facility] [address] [place] [address] Dr. Joe Shea IG # 0.03 10e3/ul Normal 0.00-0.03 [facility] Comment on above: Performed By: #### C MP, LIPA, NESTOR #### [facility] [address] [place] [address] Dr. Joe Shea IG % 0.2 % Normal 0.0-0.5 [facility] Comment on above: Performed By: #### C MP, LIPA, NESTOR #### [facility] [address] [place] [address] Dr. Joe Shea LYMPH # 1.9 103/ul Normal 1.2-3.8 [facility] Comment on above: Performed By: #### C MP, LIPA, NESTOR #### [facility] [address] [place] [address] Dr. Joe Shea Lymphocytes/100 WBC (Bld) 15.2 % Critically low 20.5-6 0.0 [facility] Comment on above: Performed By: #### C MP, LIPA, NESTOR #### [facility] [address] [place] [address] Dr. Joe Shea MANUAL DIFF REQ NO Normal [facility] Comment on above: Performed By: #### C MP, LIPA, NESTOR #### [facility] [address] [place] [address] Dr. Joe Shea MCH (RBC) [Entitic mass] 28.4 pg Normal 26.7-34.0 [facility] Comment on above: Performed By: #### C MP, LIPA, NESTOR #### [facility] [address] [place] [address] Dr. Joe Shea MCHC (RBC) [Mass/Vol] 32.3 g/dL Normal 29.9-35.2 [facility] Comment on above: Performed By: #### C MP, LIPA, NESTOR #### [facility] [address] [place] [address] Dr. Joe Shea MCV (RBC) [Entitic vol] 87.9 fL Normal 81.0-99.0 [facility] Comment on above: Performed By: #### C CARLYN DE JESUS, NESTOR #### [facility] [address] [place] [address] Dr. Joe Shea MONO # 0.9 103/ul Critically high 0.3-0.8 [facility] Comment on above: Performed By: #### C HUGO DE JESUSA, NESTOR #### [facility] [address] [place] [address] Dr. Joe Shea Monocytes/100 WBC (Bld) 7.1 % Normal 1.7-12.0 [facility] Comment on above: Performed By: #### C CARLYN DE JESUS, NESTOR #### [facility] [address] [place] [address] Dr. Joe Shea NEUT # 9.5 103/ul Critically high 1.4-6.5 [facility] Comment on above: Performed By: #### C HUGO DE JESUSA, NESTOR #### [facility] [address] [place] [address] Dr. Joe Shea Neutrophils/100 WBC (Bld) 76.3 % Critically high 43.0- 75.0 [facility] Comment on above: Performed By: #### C CARLYN DE JESUS, NESTOR #### [facility] [address] [place] [address] Dr. Joe Shea Platelet mean volume (Bld) [Entitic vol] 10.8 fL Normal 9.5-13.5 [facility] Comment on above: Performed By: #### C HUGO DE JESUSA, NESTOR #### [facility] [address] [place] [address] Dr. Joe Shea PLT 283 103/ul Normal 150-450 [facility] Comment on above: Performed By: #### C CARLYN DE JESUS, NESTOR #### [facility] [address] [place] [address] Dr. Joe Shea RBC 4.23 106/ul Normal 4.20-5.40 [facility] Comment on above: Performed By: #### C HUGO DE JESUSA, NESTOR #### [facility] [address] [place], [place] [address] Dr. Joe Shea WBC 12.5 103/ul Critically high 4.0-11.0 [facility] Comment on above: Performed By: #### C CARLYN DE JESUS AMY #### [facility] [address] [place], [place] [address] ABD/PELV W CONon [...] MISTI BREWER Date: 2022-10-28 18:31 Normal [facility] ER URINE PROFILEon 3 Bilirubin Ql (U) Negative Normal NEGATIVE [facility] Comment on above: Performed By: #### L BCLH #### [facility] [address] [place] [address] [address] Joe Shea Clarity (U) CLEAR Normal CLEAR [facility] Comment on above: Performed By: #### L BCLH #### [facility] [address] [place] [address] Dr. Joe Shea Color (U) LT. YELLOW Normal YELLOW [facility] Comment on above: Performed By: #### L BCLH #### [facility] [address] [place] [address] Dr. Joe Shea ERUAHD A micrscopic examination will be performed if indicated. Normal [facility] Comment on above: Performed By: #### L BCLH #### [facility] [address] [place] [address] Dr. Joe Shea Glucose Ql (U) Negative Normal NEGATIVE [facility] Comment on above: Performed By: #### L BCLH #### [facility] [address] [place] [address] Dr. Joe Shea Hemoglobin Ql (U) Negative Normal NEGATIVE [facility] Comment on above: Performed By: #### L BCL #### [facility] [address] [place] [address] Dr. Joe Shea Ketones Ql (U) Negative Normal NEGATIVE [facility] Comment on above: Performed By: #### L BCL #### [facility] [address] [place] [address] Dr. Joe Shea LEUKOCYTES TRACE Abnormal NEGATIVE [facility] Comment on above: Performed By: #### L BCL #### [facility] [address] [place] [address] Dr. Joe Shea Nitrite Ql (U) Negative Normal NEGATIVE [facility] Comment on above: Performed By: #### L BCL #### [facility] [address] [place] [address] Dr. Joe Shea pH (U) 8.0 [pH] Normal 5-9 [facility] Comment on above: Performed By: #### L BCLH #### [facility] [address] [place] [address] Dr. Joe Shea SPEC GRAVITY 1.015 Normal 1.005-<=1.02 5 [facility] Comment on above: Performed By: #### L BCL #### [facility] [address] [place] [address] Dr. Joe Shea UA PROTEIN Negative Normal NEGATIVE/ TRACE [facility] Comment on above: Performed By: #### L BCL #### [facility] [address] [place] [address] Dr. Joe Shea UR MICRO IND INDICATED Normal [facility] Comment on above: Performed By: #### L BCL #### [facility] [address] [place] [address] Dr. Joe Shea Urobilinogen Qn (U) 2.0 {Pasucal'U}/dL Abnormal 0.2 - 1. 0 [facility] Comment on above: Performed By: #### L BARRY #### [facility] [address] [place] [address] Dr. Joe Shea LIPASEon 10-28-2022 Lipase [Catalytic activity/Vol] 93.0 U/L Normal 73.0-393.0 [facility] Comment on above: Performed By: #### C MP, LIPA, NESTOR #### [facility] [address] [place] [address] Dr. Joe Shea URon 10-28-2022 , QUAL Negative Normal NEGATIVE [facility] Comment on above: Performed By: #### L BCL #### [facility] [address] [place] [address] Dr. Joe Shea PROF 14(COMP METB)on 023 Albumin [Mass/Vol] 4.1 g/dL Normal 3.4-5.0 [facility] Comment on above: Performed By: #### C MP, LIPA, NESTOR #### [facility] [address] [place] [address] Dr. Joe Shea Albumin/Globulin [Mass ratio] 1.2 {ratio} Normal [facility] Comment on above: Performed By: #### C MP, LIPA, NESTOR #### [facility] [address] [place] [address] Dr. Joe Shea ALP [Catalytic activity/Vol] 60 U/L Normal 46-116 [facility] Comment on above: Performed By: #### C MP, LIPA, NESTOR #### [facility] [address] [address] [address] Joe Shea ALT [Catalytic activity/Vol] 22 U/L Normal 14-59 [facility] Comment on above: Performed By: #### C MP, LIPA, NESTOR #### [facility] [address] [place] [address] [address] Joe Shea Anion gap [Moles/Vol] 10.2 mmol/L Normal Th [facility] Comment on above: Performed By: #### C MP, LIPA, NESTOR #### [facility] [address] [place] [address] Dr. Joe Shea AST [Catalytic activity/Vol] 14 U/L Critically low 15-37 [facility] Comment on above: Performed By: #### C MP LIPA, NESTOR #### [facility] [address] [place] [address] Dr. Joe Shea Bilirubin [Mass/Vol] 0.5 mg/dL Normal 0.2-1.0 [facility] Comment on above: Performed By: #### C MP LIPA, NESTOR #### [facility] [address] [place] [address] Dr. Joe Shea Calcium [Mass/Vol] 8.9 mg/dL Normal 8.5-10.1 [facility] Comment on above: Performed By: #### C MP, LIPA, NESTOR #### [facility] [address] [place] [address] Dr. Joe Shea Chloride [Moles/Vol] 103 mmol/L Normal 98-107 [facility] Comment on above: Performed By: #### C MP, LIPA, NESTOR #### [facility] [address] [place] [address] Dr. Joe Shea CO2 [Moles/Vol] 28.1 mmol/L Normal 21.0-32.0 [facility] Comment on above: Performed By: #### C MP, LIPA, NESTOR #### [facility] [address] [place] [address] Dr. Joe Shea Creatinine [Mass/Vol] 0.77 mg/dL Normal 0.55-1.02 [facility] Comment on above: Performed By: #### C CARLYN DE JESUS NESTOR #### [facility] [address] [address] [address] Joe Shea EGFR-AF SRI LANKAN >60 Normal >=60 [facility] Comment on above: Performed By: #### C CARLYN DE JESUS, NESTOR #### [facility] [address] [address] [address] Joe Shea EGFR-NON AF SRI LANKAN >60 Normal >=60 [facility] Comment on above: Performed By: #### C CARLYN DE JESUS, NESTOR #### [facility] [address] [place] [address] Dr. Joe Shea Globulin (S) [Mass/Vol] 3.5 g/dL Normal [facility] Comment on above: Performed By: #### C CARYLN DE JESUS, NESTOR #### [facility] [address] [place] [address] Dr. Joe Shea Glucose [Mass/Vol] 85 mg/dL Normal 74-106 [facility] Comment on above: Performed By: #### C CARLYN DE JESUS, NESTOR #### [facility] [address] [place] [address] Dr. Joe Shea Potassium [Moles/Vol] 3.3 mmol/L Critically low 3.5-5.1 [facility] Comment on above: Performed By: #### C CARLYN DE JESUS, NESTOR #### [facility] [address] [place] [address] Dr. Joe Shea Protein [Mass/Vol] 7.6 g/dL Normal 6.4-8.2 [facility] Comment on above: Performed By: #### C CARLYN DE JESUS, NESTOR #### [facility] [address] [place] [address] Dr. Joe Shea Sodium [Moles/Vol] 138 mmol/L Normal 136-145 [facility] Comment on above: Performed By: #### C CARLYN DE JESUS, NESTOR #### [facility] [address] [place] [address] Dr. Joe Shea Urea nitrogen [Mass/Vol] 6.0 mg/dL Critically low 7.0-18. 0 [facility] Comment on above: Performed By: #### C CARLYN DE JESUS AMY #### [facility] [address] [place] [address] Dr. Joe Shea Urea nitrogen/Creatinine [Mass ratio] 7.8 mg/mg Normal [facility] Comment on above: Performed By: #### C CARLYN DE JESUS AMY #### [facility] [address] [place] [address] Dr. Joe Shea URINE MICROSCOPIC ONLYon BACTERIA NONE SEEN Normal NONE SEEN [facility] Comment on above: Performed By: #### L BCL #### [facility] [address] [place] [address] Dr. Joe Shea Bacteria identified Cx Nom (U) NOT INDICATED Normal [facility] Comment on above: Performed By: #### L BCL #### [facility] [address] [place] [address] Dr. Joe Shea CAST NONE SEEN Normal NONE SEEN [facility] Comment on above: Performed By: #### L BCL #### [facility] [address] [place] [address] Dr. Joe Shea Crystals LM Nom (Urine sed) NONE SEEN Normal NONE SEEN [facility] Comment on above: Performed By: #### L BCL #### [facility] [address] [place] [address] Dr. Joe Shea Epithelial cells LM Ql (Urine sed) FEW Abnormal NONE SEEN /RARE [facility] Comment on above: Performed By: #### L BCL #### [facility] [address] [place] [address] Dr. Joe Shea MUCOUS NONE SEEN Normal NONE SEEN [facility] Comment on above: Performed By: #### L BCLH #### [facility] [address] [place] [address] Dr. Joe Shea RBC NONE SEEN Abnormal 0-2 [facility] Comment on above: Performed By: #### L BARRY #### [facility] [address] [place] [address] [address] Joe Shea WBC 0-2 Abnormal NONE SEEN [facility] Comment on above: Performed By: #### L BARRY #### [facility] [address] [place] [address] [address] Joe Shea LACTOFERRIN FECAL QUANTon Lactoferrin, Fecal, Quant. <1.00 Normal 0.00-7.24 [facility] Comment on above: Result Comment: Re sults [...] (IBS). Performed By: #### D TRESA #### [facility] [address] [place] [address] Dr. Joe Shea CALPROTECTIN, FECALon 2022 Calprotectin, Fecal 31 ug/g Normal 0-120 [facility] Comment on above: Result Comment: Conc entration Interpretation Follow-Up <16 - 50 ug/g Normal None >50 -120 ug/g Borderline Re-evaluate in 4-6 weeks >120 ug/g Abnormal Repeat as clinically indicated Performed By: #### C MP, LIPA, NSETOR #### [facility] [address] [place] [address] Dr. Joe Shea BOWEL DISORDERS EVALUATION R ULE-OUT CASCon 09-25-2022 Antigliadin 8 units Normal 0-19 [facility] Comment on above: Result Comment: Nega tive 0 - 19 Weak Positive 20 - 30 Moderate to Strong Positive >30 . Performed By: #### C BC #### [facility] [address] [place] [address] Dr. Joe Shea Atypical pANCA Negative Normal Negative [facility] Comment on above: Performed By: #### C BC #### [facility] [address] [address] [address] Joe Shea Note: [place] continues Normal [facility] Comment on above: Performed By: #### C BC #### [facility] [address] [place] [address] Dr. Joe Shea Note: Comment Normal [facility] Comment on above: Result Comment: Sugg estive of irritable bowel syndrome (IBS). Careful evaluation of the patient's history, physical examination, and application of Navjot III diagnostic criteria may help to rule in or rule out the diagnosis of IBS. Subsequent testing for Fecal Calprotectin (767120) may be recommended. If IBD is strongly suspected, subsequent testing with the Crohn's Disease Prognostic Profile (259486) that includes anti- glycan antibodies AMCA, ALCA, ACCA, and Zulema may aid in differential diagnosis. Performed By: #### C BC #### [facility] [address] [place] [address] Dr. Joe Shea Saccharomyces Cer. IgG <20.0 Normal 0.0-24.9 Th [facility] Comment on above: Result Comment: Nega tive <20.0 Equivocal 20.1 - 24.9 Positive >or= 25.0 Performed By: #### C BC #### [facility] [address] [place] [address] Dr. Joe Shea tTG/DGP SCR Negative Normal Negative [facility] Comment on above: Result Comment: Ef fective September 21, 2022 this profile will be made non-orderable due to non-availability of reagents for tTG/DGP Combo. No replacement number is available at this time. For further information, please contact your local [facility] Client Associate. Performed By: #### C BC #### [facility] [address] [place] [address] Dr. Joe Shea CBC AUTO DIFFon 09-19-2022 BASO # 0.1 103/ul Normal 0.0-0.1 [facility] Comment on above: Performed By: #### D HEASUL #### [facility] [address] [place] [address] Dr. Joe Shea Basophils/100 WBC (Bld) 0.9 % Normal 0.2-2.0 [facility] Comment on above: Performed By: #### Althea GTZ #### [facility] [address] [place] [address] Dr. Joe Shea EO # 0.2 103/ul Normal 0.0-0.7 [facility] Comment on above: Performed By: #### Althea GTZ #### [facility] [address] [place] [address] Dr. Joe Shea Eosinophils/100 WBC (Bld) 2.4 % Normal 0.9-7.0 [facility] Comment on above: Performed By: ###Asiya GTZ #### [facility] [address] [place] [address] Dr. Joe Shea Erythrocyte distribution width (RBC) [Ratio] 13.2 % Normal 11.0-15.0 [facility] Comment on above: Performed By: ###Asiya GTZ #### [facility] [address] [place] [address] Dr. Joe Shea Hematocrit (Bld) [Volume fraction] 38.3 % Normal 36.0-48.0 [facility] Comment on above: Performed By: ###Asiya GTZ #### [facility] [address] [place] [address] Dr. Joe Shea Hemoglobin (Bld) [Mass/Vol] 12.3 g/dL Normal 12.0-16.0 [facility] Comment on above: Performed By: #### Althea GTZ #### [facility] [address] [place] [address] Dr. Joe Shea IG # 0.02 10e3/ul Normal 0.00-0.03 [facility] Comment on above: Performed By: #### Althea GTZ #### [facility] [address] [place] [address] Dr. Joe Shea IG % 0.3 % Normal 0.0-0.5 [facility] Comment on above: Performed By: ###Asiya GTZ #### [facility] [address] [address] [address] Joe Shea LYMPH # 1.7 103/ul Normal 1.2-3.8 [facility] Comment on above: Performed By: #### Althea GTZ #### [facility] [address] [place] [address] Dr. Joe Shea Lymphocytes/100 WBC (Bld) 24.6 % Normal 20.5-60.0 [facility] Comment on above: Performed By: #### Althea GTZ #### [facility] [address] [place] [address] Dr. Joe Shea MANUAL DIFF REQ NO Normal [facility] Comment on above: Performed By: #### Althea GTZ #### [facility] [address] [place] [address] Dr. Joe Shea MCH (RBC) [Entitic mass] 28.1 pg Normal 26.7-34.0 [facility] Comment on above: Performed By: #### Althea GTZ #### [facility] [address] [place] [address] Dr. Joe Shea MCHC (RBC) [Mass/Vol] 32.1 g/dL Normal 29.9-35.2 [facility] Comment on above: Performed By: #### Althea GTZ #### [facility] [address] [place] [address] Dr. Joe Shea MCV (RBC) [Entitic vol] 87.6 fL Normal 81.0-99.0 [facility] Comment on above: Performed By: #### Althea GTZ #### [facility] [address] [place] [address] Dr. Joe Shea MONO # 0.4 103/ul Normal 0.3-0.8 [facility] Comment on above: Performed By: #### Althea GTZ #### [facility] [address] [place] [address] Dr. Joe Shea Monocytes/100 WBC (Bld) 5.5 % Normal 1.7-12.0 [facility] Comment on above: Performed By: #### Althea GTZ #### [facility] [address] [address] [address] Joe Shea NEUT # 4.7 103/ul Normal 1.4-6.5 [facility] Comment on above: Performed By: #### Althea GTZ #### [facility] [address] [address] [address] Joe Shea Neutrophils/100 WBC (Bld) 66.3 % Normal 43.0-75.0 [facility] Comment on above: Performed By: #### Althea GTZ #### [facility] [address] [address] [address] Joe Shea Platelet mean volume (Bld) [Entitic vol] 11.4 fL Normal 9.5-13.5 [facility] Comment on above: Performed By: #### Althea GTZ #### [facility] [address] [place] [address] Dr. Joe Shea PLT 275 103/ul Normal 150-450 [facility] Comment on above: Performed By: #### Althea GTZ #### [facility] [address] [place] [address] Dr. Joe Shea RBC 4.37 106/ul Normal 4.20-5.40 [facility] Comment on above: Performed By: #### Althea GTZ #### [facility] [address] [place] [address] Dr. Joe Shea WBC 7.0 103/ul Normal 4.0-11.0 [facility] Comment on above: Performed By: #### Althea GTZ #### [facility] [address] [place] [address] Dr. Joe Shea PROF 14(COMP METB)on 023 Albumin [Mass/Vol] 4.4 g/dL Normal 3.4-5.0 [facility] Comment on above: Performed By: #### Courtney GAUTAM #### [facility] [address] [place] [address] Dr. Joe Shea Albumin/Globulin [Mass ratio] 1.4 {ratio} Normal [facility] Comment on above: Performed By: #### L DAIN #### [facility] [address] [address] [address] Joe Shea ALP [Catalytic activity/Vol] 51 U/L Normal 46-116 [facility] Comment on above: Performed By: #### L BCLH #### [facility] [address] [address] [address] Joe Shea ALT [Catalytic activity/Vol] 20 U/L Normal 14-59 [facility] Comment on above: Performed By: #### L BCLH #### [facility] [address] [address] [address] Joe Shea Anion gap [Moles/Vol] 11.7 mmol/L Normal Th [facility] Comment on above: Performed By: #### L BCLH #### [facility] [address] [place] [address] Dr. Joe Shea AST [Catalytic activity/Vol] 17 U/L Normal 15-37 [facility] Comment on above: Performed By: #### L BCLH #### [facility] [address] [place] [address] Dr. Joe Shea Bilirubin [Mass/Vol] 0.4 mg/dL Normal 0.2-1.0 [facility] Comment on above: Performed By: #### L BCLH #### [facility] [address] [place] [address] Dr. Joe Shea Calcium [Mass/Vol] 9.3 mg/dL Normal 8.5-10.1 [facility] Comment on above: Performed By: #### L BCLH #### [facility] [address] [place] [address] Dr. Joe Shea Chloride [Moles/Vol] 104 mmol/L Normal 98-107 [facility] Comment on above: Performed By: #### L BCLH #### [facility] [address] [address] [address] Joe Shea CO2 [Moles/Vol] 28.5 mmol/L Normal 21.0-32.0 [facility] Comment on above: Performed By: #### L BCLH #### [facility] [address] [address] [address] Joe Shea Creatinine [Mass/Vol] 0.55 mg/dL Normal 0.55-1.02 [facility] Comment on above: Performed By: #### L BCL #### [facility] [address] [address] [address] Joe Shea EGFR-AF SRI LANKAN >60 Normal >=60 [facility] Comment on above: Performed By: #### L BCLH #### [facility] [address] [address] [address] Joe Shea EGFR-NON AF SRI LANKAN >60 Normal >=60 [facility] Comment on above: Performed By: #### L BCLH #### [facility] [address] [place] [address] Dr. Joe Shea Globulin (S) [Mass/Vol] 3.1 g/dL Normal [facility] Comment on above: Performed By: #### L BCL #### [facility] [address] [place] [address] Dr. Joe Shea Glucose [Mass/Vol] 90 mg/dL Normal 74-106 [facility] Comment on above: Performed By: #### L BCL #### [facility] [address] [place] [address] Dr. Joe Shea Potassium [Moles/Vol] 4.2 mmol/L Normal 3.5-5.1 [facility] Comment on above: Performed By: #### L BCL #### [facility] [address] [place] [address] Dr. Joe Shea Protein [Mass/Vol] 7.5 g/dL Normal 6.4-8.2 [facility] Comment on above: Performed By: #### L BCLH #### [facility] [address] [place] [address] Dr. Joe Shea Sodium [Moles/Vol] 140 mmol/L Normal 136-145 [facility] Comment on above: Performed By: #### L BCLH #### [facility] [address] [place] [address] Dr. Joe Shea Urea nitrogen [Mass/Vol] 6.0 mg/dL Critically low 7.0-18. 0 [facility] Comment on above: Performed By: #### L BARRY #### [facility] [address] [place] [address] Dr. Joe Shea Urea nitrogen/Creatinine [Mass ratio] 10.9 mg/mg Normal [facility] Comment on above: Performed By: #### L BARRY #### [facility] [address] [place] [address] Dr. Joe Shea PROTIMEon 09-19-2022 INR Coag (PPP) [Relative time] 1.08 {INR} Normal [facility] Comment on above: Performed By: #### L BARRY #### [facility] [address] [place] [address] Dr. Joe Shea INR GUIDELINES SEE BELOW Normal [facility] Comment on above: Result Comment: CHICA RED INR: 2.0 - 3.0 CONDITIONS NOT LISTED BELOW 2.5 - 3.5 FOR PROSTHETIC HEART VALVE REPLACEMENT 2.5 - 3.5 RECURRENT THROMBOSIS Performed By: #### L BARRY #### [facility] [address] [place] [address] Dr. Joe Shea PT Coag (PPP) [Time] 11.4 s Normal 9.0-11.6 [facility] Comment on above: Performed By: #### L BARRY #### [facility] [address] [place] [address] Dr. Joe Shea TSHon 09-19-2022 TSH 0.957 uIU/mL Normal 0.358-3.740 [facility] Comment on above: Performed By: #### L BARRY #### [facility] [address] [place] [address] Dr. Joe Shea Pre-Certification Formon Pre-Certification Form [id number] 269#1.00CD:127 Normal [facility] Consent for Procedure/Surger yon 07-23-2022 Consent for Procedure/Surgery [id number] 7E#1.00CD:127 Normal [facility] Facesheeton 07-19-2022 Facesheet [id number] 71#1.00CD:127 Normal [facility] CBC AUTO DIFFon 07-06-2022 BASO # 0.1 103/ul Normal 0.0-0.1 [facility] Comment on above: Performed By: #### C NEAL LIPA, NESTOR #### [facility] [address] [place] [address] Dr. Joe Shea Basophils/100 WBC (Bld) 0.8 % Normal 0.2-2.0 [facility] Comment on above: Performed By: #### C NEAL LIPA, NESTOR #### [facility] [address] [place] [address] Dr. Joe Shea EO # 0.4 103/ul Normal 0.0-0.7 [facility] Comment on above: Performed By: #### C NEAL LIPA, NESTOR #### [facility] [address] [place] [address] Dr. Joe Shea Eosinophils/100 WBC (Bld) 4.2 % Normal 0.9-7.0 [facility] Comment on above: Performed By: #### C NEAL LIPA, NESTOR #### [facility] [address] [place] [address] Dr. Joe Shea Erythrocyte distribution width (RBC) [Ratio] 13.5 % Normal 11.0-15.0 [facility] Comment on above: Performed By: #### C NEAL LIPA, NESTOR #### [facility] [address] [place] [address] Dr. Joe Shea Hematocrit (Bld) [Volume fraction] 36.8 % Normal 36.0-48.0 [facility] Comment on above: Performed By: #### C NEAL LIPA, NESTOR #### [facility] [address] [place] [address] Dr. Joe Shea Hemoglobin (Bld) [Mass/Vol] 12.2 g/dL Normal 12.0-16.0 [facility] Comment on above: Performed By: #### C MP LIPA, NESTOR #### [facility] [address] [place] [address] Dr. Joe Shea IG # 0.02 10e3/ul Normal 0.00-0.03 [facility] Comment on above: Performed By: #### C MP LIPA, NESTOR #### [facility] [address] [place] [address] Dr. Joe Shea IG % 0.2 % Normal 0.0-0.5 [facility] Comment on above: Performed By: #### C NEAL LIPA, NESTOR #### [facility] [address] [place] [address] Dr. Joe Shea LYMPH # 2.1 103/ul Normal 1.2-3.8 [facility] Comment on above: Performed By: #### C NEAL LIPA, NESTOR #### [facility] [address] [place] [address] Dr. Joe Shea Lymphocytes/100 WBC (Bld) 20.3 % Critically low 20.5-6 0.0 [facility] Comment on above: Performed By: #### C HUGO DE JESUSA, NESTOR #### [facility] [address] [place] [address] Dr. Joe Shea MANUAL DIFF REQ NO Normal [facility] Comment on above: Performed By: #### C NEAL LIPA, NESTOR #### [facility] [address] [place] [address] Dr. Joe Shea MCH (RBC) [Entitic mass] 28.6 pg Normal 26.7-34.0 [facility] Comment on above: Performed By: #### C MP LIPA, NESTOR #### [facility] [address] [place] [address] Dr. Joe Shea MCHC (RBC) [Mass/Vol] 33.2 g/dL Normal 29.9-35.2 [facility] Comment on above: Performed By: #### C NEAL LIPA, NESTOR #### [facility] [address] [place] [address] Dr. Joe Shea MCV (RBC) [Entitic vol] 86.4 fL Normal 81.0-99.0 [facility] Comment on above: Performed By: #### C MP LIPA, NESTOR #### [facility] [address] [place] [address] Dr. Joe Shea MONO # 0.6 103/ul Normal 0.3-0.8 [facility] Comment on above: Performed By: #### C MP, LIPA, NESTOR #### [facility] [address] [place] [address] Dr. Joe Shea Monocytes/100 WBC (Bld) 5.5 % Normal 1.7-12.0 [facility] Comment on above: Performed By: #### C MP, LIPA, NESTOR #### [facility] [address] [place] [address] Dr. Joe Shea NEUT # 7.2 103/ul Critically high 1.4-6.5 [facility] Comment on above: Performed By: #### C MP, LIPA, NESTOR #### [facility] [address] [place] [address] Dr. Joe Shea Neutrophils/100 WBC (Bld) 69.0 % Normal 43.0-75.0 [facility] Comment on above: Performed By: #### C MP, LIPA, NESTOR #### [facility] [address] [place] [address] Dr. Joe Shea Platelet mean volume (Bld) [Entitic vol] 10.8 fL Normal 9.5-13.5 [facility] Comment on above: Performed By: #### C MP, LIPA, NESTOR #### [facility] [address] [place] [address] Dr. Joe Shea PLT 316 103/ul Normal 150-450 [facility] Comment on above: Performed By: #### C MP, LIPA, NESTOR #### [facility] [address] [place] [address] Dr. Joe Shea RBC 4.26 106/ul Normal 4.20-5.40 [facility] Comment on above: Performed By: #### C CARLYN DE JESUS AMY #### [facility] [address] [place] [address] Dr. Joe Shea WBC 10.4 103/ul Normal 4.0-11.0 [facility] Comment on above: Performed By: #### C CARLYN DE JESUS AMY #### [facility] [address] [place] [address] Dr. Joe Shea PREG QUANT HCGon 07-06-2022 HCG QUANT <1 Normal [facility] Comment on above: Performed By: #### C CARLYN DE JESUS AMY #### [facility] [address] [place] [address] Dr. Joe Shea HCG RANGE SEE BELOW Normal [facility] Comment on above: Result Comment: 5-50 0.2-1 WEEK 50-500 1-2 WEEKS 100-5,000 2-3 WEEKS 500-10,000 3-4 WEEKS 1,000-50,000 4-5 WEEKS 10,000-100,000 5-6 WEEKS 15,000-200,000 6-8 WEEKS 10,000-100,000 2-3 MONTHS Performed By: #### C CARLYN DE JESUS AMY #### [facility] [address] [place] [address] Dr. Joe Shea HEPATITIS C ANTIBODYon 06-26 Hep C Virus Ab <0.1 Normal 0.0-0.9 [facility] Comment on above: Result Comment: Nega tive: [...] Hepatitis C Virus (HCV) RNA, Diagnosis, MEGAN (347843) and Hepatitis C Virus (HCV) Antibody with reflex to Quantitative Real-time PCR ([id number]). Performed By: #### L BCLH #### [facility] [address] [place] [address] Dr. Joe Shea Covid-19 PCR (CVDTBH)on 05-31 SARS-CoV-2 (COVID-19) RNA MEGAN+probe Ql (Unsp spec) Not detected Normal NOT DETECTED [facility] Comment on above: Result Comment: This test is not yet approved or cleared by the [place] FDA. When there are no FDA-approved or cleared tests available, and other criteria are met, FDA can make tests available under an emergency access mechanism called an Emergency Use Authorization (EUA). The EUA for this test is supported by the [place] of Health and Human Service's (HHS's) declaration [...] SARS-CoV-2. Performed By: #### C VDTBH #### [facility] [address] [place] [address] Dr. Joe Shea HEP B SURFACE ANTIGEN SCREEN on 06-12-2022 HBsAg Screen Negative Normal Negative [facility] Comment on above: Performed By: #### D HEASUL #### [facility] [address] [address] [address] Joe Shea HIV 1 AND 2 WITH REFLEXon HIV Screen 4th Generation wRfx Non-Reactive Normal Non Reactive [facility] Comment on above: Result Comment: HIV Negative HIV-1/HIV-2 antibodies and HIV-1 p24 antigen were NOT detected. There is no laboratory evidence of HIV infection. Performed By: #### C CARLYN DE JESUS AMY #### [facility] [address] [place] [address] Dr. Joe Shea RPR QUANTon 06-12-2022 Rapid Plasma Reagin, Quant Non-Reactive Normal NonRea< 1:1 [facility] Comment on above: Result Comment: Plea se Note: This test does not meet current guidelines for screening and diagnosis of syphilis. This test is intended for following treatment response in patients being treated for syphilis infection. To screen for syphilis infection, a reflex cascade that includes both RPR and a treponema-specific assay should be utilized, such as Treponema pallidum (Syphilis) Screening [place] ([id number]) or Rapid Plasma Reagin (RPR) Test With Reflex to Quantitative RPR and Confirmatory Treponema pallidum Antibodies ([id number]). Performed By: #### C CARLYN DE JESUS AMY #### [facility] [address] [place], [place] [address] Dr. Joe Shea Physician Referralon 022 Physician Referral [id number]#[id number]:127 Normal [facility] US PELVIS AND TRANSVAGon US PELVIS AND [...] ANGIE MEJIA Date: 2022-05-31 17:18 Normal [facility] AMYLASEon 05-23-2022 Amylase [Catalytic activity/Vol] 24 U/L Critically low 25-115 [facility] Comment on above: Performed By: #### C CARLYN DE JESUS AMY #### [facility] [address] [place], [place] [address] Dr. Joe Shea CBC AUTO DIFFon 05-23-2022 Eosinophils/100 WBC (Bld) 1.5 % Normal 0.9-7.0 [facility] Comment on above: Performed By: #### L BARRY #### [facility] [address] [place] [address] Dr. Joe Shea Erythrocyte distribution width (RBC) [Ratio] 13.5 % Normal 11.0-15.0 [facility] Comment on above: Performed By: #### L BCL #### [facility] [address] [place] [address] Dr. Joe Shea Hematocrit (Bld) [Volume fraction] 33.0 % Critically low 36.0-48.0 [facility] Comment on above: Performed By: #### L BARRYH #### [facility] [address] [place] [address] Dr. Joe Shea Hemoglobin (Bld) [Mass/Vol] 10.7 g/dL Critically low 12.0-16.0 [facility] Comment on above: Performed By: #### L BCL #### [facility] [address] [place] [address] Dr. Joe Shea LYMPH # 1.2 103/ul Normal 1.2-3.8 [facility] Comment on above: Performed By: #### L BARRY #### [facility] [address] [place] [address] Dr. Joe Shea Lymphocytes/100 WBC (Bld) 20.2 % Critically low 20.5-6 0.0 [facility] Comment on above: Performed By: #### L BCL #### [facility] [address] [place] [address] Dr. Joe Shea MCH (RBC) [Entitic mass] 28.0 pg Normal 26.7-34.0 [facility] Comment on above: Performed By: #### L BCLH #### [facility] [address] [place] [address] Dr. Joe Shea MCHC (RBC) [Mass/Vol] 32.4 g/dL Normal 29.9-35.2 [facility] Comment on above: Performed By: #### L BCLH #### [facility] [address] [place] [address] Dr. Joe Shea Monocytes/100 WBC (Bld) 7.9 % Normal 1.7-12.0 [facility] Comment on above: Performed By: #### L BCL #### [facility] [address] [place] [address] Dr. Joe Shea Neutrophils/100 WBC (Bld) 69.9 % Normal 43.0-75.0 [facility] Comment on above: Performed By: #### L BCL #### [facility] [address] [place] [address] Dr. Joe Shea Platelet mean volume (Bld) [Entitic vol] 10.6 fL Normal 9.5-13.5 [facility] Comment on above: Performed By: #### L BCL #### [facility] [address] [place] [address] Dr. Joe Shea PLT 233 103/ul Normal 150-450 [facility] Comment on above: Performed By: #### L BCL #### [facility] [address] [place] [address] Dr. Joe Shea RBC 3.82 106/ul Critically low 4.20-5.40 [facility] Comment on above: Performed By: #### L BCL #### [facility] [address] [place] [address] Dr. Joe Shea WBC 6.1 103/ul Normal 4.0-11.0 [facility] Comment on above: Performed By: #### L BCL #### [facility] [address] [place] [address] Dr. Joe Shea BASO # 0.0 103/ul Normal 0.0-0.1 [facility] Comment on above: Performed By: #### L BCL #### [facility] [address] [place] [address] Dr. Joe Shea Performed By: #### C MP, LIPA, NESTOR #### [facility] [address] [place] [address] Dr. Joe Shea Basophils/100 WBC (Bld) 0.3 % Normal 0.2-2.0 [facility] Comment on above: Performed By: #### L BCLH #### [facility] [address] [place] [address] Dr. Joe Shea Performed By: #### C CARLYN DE JESUS, NESTOR #### [facility] [address] [place] [address] Dr. Joe Shea EO # 0.1 103/ul Normal 0.0-0.7 [facility] Comment on above: Performed By: #### L BCLH #### [facility] [address] [place] [address] Dr. Joe Shea Performed By: #### C CARLYN DE JESUS NESTOR #### [facility] [address] [place] [address] Dr. Joe Shea Eosinophils/100 WBC (Bld) 1.9 % Normal 0.9-7.0 [facility] Comment on above: Performed By: #### C CARLYN DE JESUS, NESTOR #### [facility] [address] [place] [address] Dr. Joe Shea Erythrocyte distribution width (RBC) [Ratio] 13.4 % Normal 11.0-15.0 [facility] Comment on above: Performed By: #### C CARLYN DE JESUS, NESTOR #### [facility] [address] [place] [address] Dr. Joe Shea Hematocrit (Bld) [Volume fraction] 32.3 % Critically low 36.0-48.0 [facility] Comment on above: Performed By: #### C CARLYN DE JESUS, NESTOR #### [facility] [address] [place] [address] Dr. Joe Shea Hemoglobin (Bld) [Mass/Vol] 10.6 g/dL Critically low 12.0-16.0 [facility] Comment on above: Performed By: #### C HUGO DE JESUSA, NESTOR #### [facility] [address] [place] [address] Dr. Joe Shea IG # 0.01 10e3/ul Normal 0.00-0.03 [facility] Comment on above: Performed By: #### L BCLH #### [facility] [address] [place] [address] Dr. Joe Shea Performed By: #### C MP LIPA, NESTOR #### [facility] [address] [place] [address] Dr. Joe Shea IG % 0.2 % Normal 0.0-0.5 [facility] Comment on above: Performed By: #### L BCLH #### [facility] [address] [place] [address] Dr. Joe Shea Performed By: #### C MP, LIPA, NESTOR #### [facility] [address] [place] [address] Dr. Joe Shea LYMPH # 1.0 103/ul Critically low 1.2-3.8 [facility] Comment on above: Performed By: #### C MP LIPA, NESTOR #### [facility] [address] [place] [address] Dr. Joe Shea Lymphocytes/100 WBC (Bld) 16.6 % Critically low 20.5-6 0.0 [facility] Comment on above: Performed By: #### C MP LIPA, NESTOR #### [facility] [address] [place] [address] Dr. Joe Shea MANUAL DIFF REQ NO Normal [facility] Comment on above: Performed By: #### L BCLH #### [facility] [address] [place] [address] Dr. Joe Shea Performed By: #### C MP, LIPA, NESTOR #### [facility] [address] [place] [address] Dr. Joe Shea MCH (RBC) [Entitic mass] 28.3 pg Normal 26.7-34.0 [facility] Comment on above: Performed By: #### C MP, LIPA, NESTOR #### [facility] [address] [place] [address] Dr. Joe Shea MCHC (RBC) [Mass/Vol] 32.8 g/dL Normal 29.9-35.2 [facility] Comment on above: Performed By: #### C MP, LIPA, NESTOR #### [facility] [address] [place] [address] Dr. Joe Shea MCV (RBC) [Entitic vol] 86.4 fL Normal 81.0-99.0 [facility] Comment on above: Performed By: #### L BARRY #### [facility] [address] [place] [address] Dr. Joe Shea Performed By: #### C MP, LIPA, NESTOR #### [facility] [address] [place] [address] Dr. Joe Shea MONO # 0.5 103/ul Normal 0.3-0.8 [facility] Comment on above: Performed By: #### L BARRY #### [facility] [address] [place] [address] Dr. Joe Shea Performed By: #### C MP, LIPA, NESTOR #### [facility] [address] [place] [address] Dr. Joe Shea Monocytes/100 WBC (Bld) 9.1 % Normal 1.7-12.0 [facility] Comment on above: Performed By: #### C MP, LIPA, NESTOR #### [facility] [address] [place] [address] Dr. Joe Shea NEUT # 4.3 103/ul Normal 1.4-6.5 [facility] Comment on above: Performed By: #### L BARRY #### [facility] [address] [place] [address] Dr. Joe Shea Performed By: #### C MP, LIPA, NESTOR #### [facility] [address] [place] [address] Dr. Joe Shea Neutrophils/100 WBC (Bld) 71.9 % Normal 43.0-75.0 [facility] Comment on above: Performed By: #### C MP, LIPA, NESTOR #### [facility] [address] [place] [address] Dr. Joe Shea Platelet mean volume (Bld) [Entitic vol] 11.0 fL Normal 9.5-13.5 [facility] Comment on above: Performed By: #### C NEAL LIPA, NESTOR #### [facility] [address] [address] [address] Joe Shea PLT 224 103/ul Normal 150-450 [facility] Comment on above: Performed By: #### C MP LIPA, NESTOR #### [facility] [address] [address] [address] Joe Shea RBC 3.74 106/ul Critically low 4.20-5.40 [facility] Comment on above: Performed By: #### C NEAL LIPA, NESTOR #### [facility] [address] [address] [address] Joe Shea WBC 5.9 103/ul Normal 4.0-11.0 [facility] Comment on above: Performed By: #### C NEAL LIPA, NESTOR #### [facility] [address] [place] [address] Dr. Joe Shea ER URINE PROFILEon 2 Bilirubin Ql (U) Negative Normal NEGATIVE [facility] Comment on above: Performed By: #### L BCL #### [facility] [address] [place] [address] Dr. Joe Shea Clarity (U) CLEAR Normal CLEAR [facility] Comment on above: Performed By: #### L BCL #### [facility] [address] [place] [address] Dr. Joe Shea Color (U) LT. YELLOW Normal YELLOW [facility] Comment on above: Performed By: #### L BCL #### [facility] [address] [place] [address] Dr. Joe Shea ERUAHD A micrscopic examination will be performed if indicated. Normal [facility] Comment on above: Performed By: #### L BCL #### [facility] [address] [place] [address] Dr. Joe Shea Glucose Ql (U) Negative Normal NEGATIVE [facility] Comment on above: Performed By: #### L BCL #### [facility] [address] [place] [address] Dr. Joe Shea Hemoglobin Ql (U) Negative Normal NEGATIVE [facility] Comment on above: Performed By: #### L BCLH #### [facility] [address] [place] [address] Dr. Joe Shea Ketones Ql (U) Negative Normal NEGATIVE [facility] Comment on above: Performed By: #### L BCLH #### [facility] [address] [place] [address] Dr. Joe Shea LEUKOCYTES Negative Normal NEGATIVE [facility] Comment on above: Performed By: #### L BCLH #### [facility] [address] [address] [address] Joe Shea Nitrite Ql (U) Negative Normal NEGATIVE [facility] Comment on above: Performed By: #### L BCLH #### [facility] [address] [place] [address] Dr. Joe Shea pH (U) 5.5 [pH] Normal 5-9 [facility] Comment on above: Performed By: #### L BCL #### [facility] [address] [place] [address] Dr. Joe Shea SPEC GRAVITY 1.020 Normal 1.005-<=1.[address] [place] [address] Comment on above: Performed By: #### L BCL #### [facility] [address] [place] [address] Dr. Joe Shea UA PROTEIN Negative Normal NEGATIVE/ TRACE [facility] Comment on above: Performed By: #### L BCL #### [facility] [address] [place] [address] Dr. Joe Shea UR MICRO IND NOT INDICATED Normal [facility] Comment on above: Performed By: #### L BCLH #### [facility] [address] [place] [address] Dr. Joe Shea Urobilinogen Qn (U) 0.2 {Pascual'U}/dL Normal 0.2 - 1. 0 [facility] Comment on above: Performed By: #### L BCLH #### [facility] [address] [place] [address] Dr. Joe Shea LIPASEon 05-23-2022 Lipase [Catalytic activity/Vol] 63.0 U/L Critically low 73.0-393.0 [facility] Comment on above: Performed By: #### C MP, LIPA, NESTOR #### [facility] [address] [address] [address] Joe Shea URon 05-23-2022 , QUAL Negative Normal NEGATIVE [facility] Comment on above: Performed By: #### C BC #### [facility] [address] [address] [address] Joe Shea PROF 14(COMP METB)on 022 Albumin [Mass/Vol] 3.7 g/dL Normal 3.4-5.0 [facility] Comment on above: Performed By: #### C MP, LIPA, NESTOR #### [facility] [address] [address] [address] Joe Shea Albumin/Globulin [Mass ratio] 1.4 {ratio} Normal [facility] Comment on above: Performed By: #### C MP, LIPA, NESTOR #### [facility] [address] [address] [address] Joe Shea ALP [Catalytic activity/Vol] 44 U/L Critically low 46-116 [facility] Comment on above: Performed By: #### C MP, LIPA, NESTOR #### [facility] [address] [address] [address] Joe Shea ALT [Catalytic activity/Vol] 24 U/L Normal 14-59 [facility] Comment on above: Performed By: #### C MP, LIPA, NESTOR #### [facility] [address] [address] [address] Joe Shea Anion gap [Moles/Vol] 9.1 mmol/L Normal [facility] Comment on above: Performed By: #### C MP, LIPA, NESTOR #### [facility] [address] [address] [address] Joe Shea AST [Catalytic activity/Vol] 18 U/L Normal 15-37 [facility] Comment on above: Performed By: #### C MP, LIPA, NESTOR #### [facility] [address] [address] [address] Joe Shea Bilirubin [Mass/Vol] 0.2 mg/dL Normal 0.2-1.0 [facility] Comment on above: Performed By: #### C MP, LIPA, NESTOR #### [facility] [address] [place] [address] Dr. Joe Shea Calcium [Mass/Vol] 8.3 mg/dL Critically low 8.5-10.1 Th e [facility] Comment on above: Performed By: #### C MP LIPA, NESTOR #### [facility] [address] [place] [address] Dr. Joe Shea Chloride [Moles/Vol] 105 mmol/L Normal 98-107 [facility] Comment on above: Performed By: #### C MP LIPA, NESTOR #### [facility] [address] [place] [address] Dr. Joe Shea CO2 [Moles/Vol] 29.7 mmol/L Normal 21.0-32.0 [facility] Comment on above: Performed By: #### C MP LIPA, NESTOR #### [facility] [address] [place] [address] Dr. Joe Shea Creatinine [Mass/Vol] 0.61 mg/dL Normal 0.55-1.02 [facility] Comment on above: Performed By: #### C MP LIPA, NESTOR #### [facility] [address] [place] [address] Dr. Joe Shea EGFR-AF SRI LANKAN >60 Normal >=60 [facility] Comment on above: Performed By: #### C MP, LIPA, NESTOR #### [facility] [address] [place] [address] Dr. Joe Shea EGFR-NON AF SRI LANKAN >60 Normal >=60 [facility] Comment on above: Performed By: #### C MP, LIPA, NESTOR #### [facility] [address] [place] [address] Dr. Joe Shea Globulin (S) [Mass/Vol] 2.6 g/dL Normal [facility] Comment on above: Performed By: #### C CARLYN DE JESUS, NESTOR #### [facility] [address] [address] [address] Joe Shea Glucose [Mass/Vol] 92 mg/dL Normal 74-106 [facility] Comment on above: Performed By: #### C CARLYN DE JESUS, NESTOR #### [facility] [address] [address] [address] Joe Shea Potassium [Moles/Vol] 3.8 mmol/L Normal 3.5-5.1 [facility] Comment on above: Performed By: #### C CARLYN DE JESUS, NESTOR #### [facility] [address] [place] [address] Dr. Joe Shea Protein [Mass/Vol] 6.3 g/dL Critically low 6.4-8.2 [facility] Comment on above: Performed By: #### C CARLYN DE JESUS, NESTOR #### [facility] [address] [address] [address] Joe Shea Sodium [Moles/Vol] 140 mmol/L Normal 136-145 [facility] Comment on above: Performed By: #### C CARLYN DE JESUS, NESTOR #### [facility] [address] [place] [address] Dr. Joe Shea Urea nitrogen [Mass/Vol] 9.0 mg/dL Normal 7.0-18.0 [facility] Comment on above: Performed By: #### C CARLYN DE JESUS, NESTOR #### [facility] [address] [place] [address] Dr. Joe Shea Urea nitrogen/Creatinine [Mass ratio] 14.8 mg/mg Normal [facility] Comment on above: Performed By: #### C CARLYN DE JESUS, NESTOR #### [facility] [address] [place] [address] Dr. Joe Shea US SINGLE QUAD RT [...] by: SHIRLEY PATEL Date: 2022-05-23 08:29 Normal [facility] AMYLASEon 05-22-2022 Amylase [Catalytic activity/Vol] 50 U/L Normal 25-115 [facility] Comment on above: Performed By: #### A MY, CMP, LIPA #### [facility] [address] [place] [address] Dr. Joe Shea CBC AUTO DIFFon 05-22-2022 BASO # 0.1 103/ul Normal 0.0-0.1 [facility] Comment on above: Performed By: #### C MP LIPA, NESTOR #### [facility] [address] [place] [address] Dr. Joe Shea Basophils/100 WBC (Bld) 0.3 % Normal 0.2-2.0 [facility] Comment on above: Performed By: #### C MP LIPA, NESTOR #### [facility] [address] [place] [address] Dr. Joe Shea EO # 0.0 103/ul Normal 0.0-0.7 [facility] Comment on above: Performed By: #### C MP LIPA, NESTOR #### [facility] [address] [place] [address] Dr. Joe Shea Eosinophils/100 WBC (Bld) 0.2 % Critically low 0.9-7. 0 [facility] Comment on above: Performed By: #### C MP LIPA, NESTOR #### [facility] [address] [place] [address] Dr. Joe Shea Erythrocyte distribution width (RBC) [Ratio] 13.3 % Normal 11.0-15.0 [facility] Comment on above: Performed By: #### C NEAL LIPA, NESTOR #### [facility] [address] [place] [address] Dr. Joe Shea Hematocrit (Bld) [Volume fraction] 39.0 % Normal 36.0-48.0 [facility] Comment on above: Performed By: #### C MP LIPA, NESTOR #### [facility] [address] [place] [address] Dr. Joe Shea Hemoglobin (Bld) [Mass/Vol] 12.7 g/dL Normal 12.0-16.0 [facility] Comment on above: Performed By: #### C NEAL LIPA, NESTOR #### [facility] [address] [place] [address] Dr. Joe Shea IG # 0.05 10e3/ul Critically high 0.00-0.03 [facility] Comment on above: Performed By: #### C NEAL LIPA, NESTOR #### [facility] [address] [place] [address] Dr. Joe Shea IG % 0.3 % Normal 0.0-0.5 [facility] Comment on above: Performed By: #### C NEAL LIPA, NESTOR #### [facility] [address] [place] [address] Dr. Joe Shea LYMPH # 0.8 103/ul Critically low 1.2-3.8 [facility] Comment on above: Performed By: #### C NEAL LIPA, NESTOR #### [facility] [address] [place] [address] Dr. Joe Shea Lymphocytes/100 WBC (Bld) 4.4 % Critically low 20.5-6 0.0 [facility] Comment on above: Performed By: #### C NEAL LIPA, NESTOR #### [facility] [address] [place] [address] Dr. Joe Shea MANUAL DIFF REQ NO Normal [facility] Comment on above: Performed By: #### C CARLYN DE JESUS, NESTOR #### [facility] [address] [place] [address] Dr. Joe Shea MCH (RBC) [Entitic mass] 28.1 pg Normal 26.7-34.0 [facility] Comment on above: Performed By: #### C CARLYN DE JESUS, NESTOR #### [facility] [address] [place] [address] Dr. Joe Shea MCHC (RBC) [Mass/Vol] 32.6 g/dL Normal 29.9-35.2 [facility] Comment on above: Performed By: #### C HUGO DE JESUSA, NESTOR #### [facility] [address] [place] [address] Dr. Joe Shea MCV (RBC) [Entitic vol] 86.3 fL Normal 81.0-99.0 [facility] Comment on above: Performed By: #### C HUGO DE JESUSA, NESTOR #### [facility] [address] [place] [address] Dr. Joe Shea MONO # 0.4 103/ul Normal 0.3-0.8 [facility] Comment on above: Performed By: #### C HUGO DE JESUSA, NESTOR #### [facility] [address] [place] [address] Dr. Joe Shea Monocytes/100 WBC (Bld) 2.2 % Normal 1.7-12.0 [facility] Comment on above: Performed By: #### C NEAL LIPA, NESTOR #### [facility] [address] [place] [address] Dr. Joe Shea NEUT # 16.7 103/ul Critically high 1.4-6.5 [facility] Comment on above: Performed By: #### C NEAL LIPA, NESTOR #### [facility] [address] [place] [address] Dr. Joe Shea Neutrophils/100 WBC (Bld) 92.6 % Critically high 43.0- 75.0 [facility] Comment on above: Performed By: #### C MP, LIPA, NESTOR #### [facility] [address] [address] [address] Joe Shea Platelet mean volume (Bld) [Entitic vol] 11.0 fL Normal 9.5-13.5 [facility] Comment on above: Performed By: #### C MP, LIPA, NESTOR #### [facility] [address] [address] [address] Joe Shea PLT 323 103/ul Normal 150-450 [facility] Comment on above: Performed By: #### C MP, LIPA, NESTOR #### [facility] [address] [place] [address] Dr. Joe Shea RBC 4.52 106/ul Normal 4.20-5.40 [facility] Comment on above: Performed By: #### C MP, LIPA, NESTOR #### [facility] [address] [place] [address] Dr. Joe Shea WBC 18.0 103/ul Critically high 4.0-11.0 [facility] Comment on above: Performed By: #### C NEAL, LIPA, NESTOR #### [facility] [address] [place] [address] Dr. Joe Shea ER URINE PROFILEon 2 Bilirubin Ql (U) Negative Normal NEGATIVE [facility] Comment on above: Performed By: #### Althea GTZ #### [facility] [address] [place] [address] Dr. Joe Shea Clarity (U) CLEAR Normal CLEAR [facility] Comment on above: Performed By: #### Althea GTZ #### [facility] [address] [place] [address] Dr. Joe Shea Color (U) YELLOW Normal YELLOW [facility] Comment on above: Performed By: #### Althea GTZ #### [facility] [address] [place] [address] Dr. Joe Shea ERUAHAlthea A micrscopic examination will be performed if indicated. Normal [facility] Comment on above: Performed By: #### Althea GTZ #### [facility] [address] [address] [address] Joe Shea Glucose Ql (U) Negative Normal NEGATIVE [facility] Comment on above: Performed By: #### Althea GTZ #### [facility] [address] [address] [address] Joe Shea Hemoglobin Ql (U) Negative Normal NEGATIVE [facility] Comment on above: Performed By: #### Althea GTZ #### [facility] [address] [address] [address] Joe Seha Ketones Ql (U) 15 mg/dl Abnormal NEGATIVE [facility] Comment on above: Performed By: #### Althea GTZ #### [facility] [address] [place] [address] Dr. Joe Shea LEUKOCYTES Negative Normal NEGATIVE [facility] Comment on above: Performed By: #### Althea GTZ #### [facility] [address] [place] [address] Dr. Joe Shea Nitrite Ql (U) Negative Normal NEGATIVE [facility] Comment on above: Performed By: #### Althea GTZ #### [facility] [address] [address] [address] Joe Shea pH (U) 5.5 [pH] Normal 5-9 [facility] Comment on above: Performed By: #### Althea GTZ #### [facility] [address] [place] [address] Dr. Joe Shea SPEC GRAVITY >=1.030 Abnormal 1.005-<=1.[address] [place] [address] Comment on above: Performed By: #### Althea GTZ #### [facility] [address] [place] [address] Dr. Joe Shea UA PROTEIN Negative Normal NEGATIVE/ TRACE [facility] Comment on above: Performed By: #### Althea GTZ #### [facility] [address] [place] [address] Dr. Joe Shea UR MICRO IND NOT INDICATED Normal [facility] Comment on above: Performed By: #### Althea GTZ #### [facility] [address] [address] [address] Joe Shea Urobilinogen Qn (U) 1.0 {Pascual'U}/dL Normal 0.2 - 1. 0 [facility] Comment on above: Performed By: #### D TRESA #### [facility] [address] [address] [address] Joe Shea LACTATE/LACTIC ACIDon 2021 Lactate [Moles/Vol] 1.0 mmol/L Normal 0.4-1.9 [facility] Comment on above: Performed By: #### C BC #### [facility] [address] [place] [address] Dr. Joe Shea LIPASEon 05-22-2022 Lipase [Catalytic activity/Vol] 205.0 U/L Normal 73.0-393.0 [facility] Comment on above: Performed By: #### A MY, CMP, LIPA #### [facility] [address] [place] [address] Dr. Joe Shea MRI BRAIN WO CONon [...] ANGIE LO Date: 2022-05-22 16:17 Normal [facility] URon 05-22-2022 , QUAL Negative Normal NEGATIVE [facility] Comment on above: Performed By: #### D TRESA #### [facility] [address] [place] [address] Dr. Joe Shea PROF 14(COMP METB)on 022 Albumin [Mass/Vol] 4.5 g/dL Normal 3.4-5.0 [facility] Comment on above: Performed By: #### Althea GTZ #### [facility] [address] [address] [address] Joe Shea Albumin/Globulin [Mass ratio] 1.4 {ratio} Normal [facility] Comment on above: Performed By: #### Althea GTZ #### [facility] [address] [address] [address] Joe Shea ALP [Catalytic activity/Vol] 60 U/L Normal 46-116 [facility] Comment on above: Performed By: #### Althea GTZ #### [facility] [address] [address] [address] Joe Shea ALT [Catalytic activity/Vol] 17 U/L Normal 14-59 [facility] Comment on above: Performed By: #### Althea GTZ #### [facility] [address] [address] [address] Joe Shea Anion gap [Moles/Vol] 10.9 mmol/L Normal [facility] Comment on above: Performed By: #### Althea GTZ #### [facility] [address] [address] [address] Joe Shea AST [Catalytic activity/Vol] 19 U/L Normal 15-37 [facility] Comment on above: Performed By: #### Althea GTZ #### [facility] [address] [address] [address] Joe Shea Bilirubin [Mass/Vol] 0.8 mg/dL Normal 0.2-1.0 [facility] Comment on above: Performed By: #### Althea GTZ #### [facility] [address] [address] [address] Joe Shea Calcium [Mass/Vol] 9.0 mg/dL Normal 8.5-10.1 [facility] Comment on above: Performed By: #### Althea GTZ #### [facility] [address] [address] [address] Joe Shea Chloride [Moles/Vol] 102 mmol/L Normal 98-107 [facility] Comment on above: Performed By: #### Althea GTZ #### [facility] [address] [address] [address] Joe Shea CO2 [Moles/Vol] 28.7 mmol/L Normal 21.0-32.0 [facility] Comment on above: Performed By: #### Althea GTZ #### [facility] [address] [address] [address] Joe Shea Creatinine [Mass/Vol] 0.73 mg/dL Normal 0.55-1.02 [facility] Comment on above: Performed By: #### Althea GTZ #### [facility] [address] [address] [address] Joe Shea EGFR-AF SRI LANKAN >60 Normal >=60 [facility] Comment on above: Performed By: #### Althea GTZ #### [facility] [address] [address] [address] Joe Shea EGFR-NON AF SRI LANKAN >60 Normal >=60 [facility] Comment on above: Performed By: #### Althea GTZ #### [facility] [address] [address] [address] Joe Shea Globulin (S) [Mass/Vol] 3.2 g/dL Normal [facility] Comment on above: Performed By: #### Althea GTZ #### [facility] [address] [address] [address] Joe Shea Glucose [Mass/Vol] 113 mg/dL Critically high 74-106 [facility] Comment on above: Performed By: #### Althea GTZ #### [facility] [address] [address] [address] Joe Shea Potassium [Moles/Vol] 3.6 mmol/L Normal 3.5-5.1 [facility] Comment on above: Performed By: #### Althea GTZ #### [facility] [address] [address] [address] Joe Shea Protein [Mass/Vol] 7.7 g/dL Normal 6.4-8.2 [facility] Comment on above: Performed By: #### Althea GTZ #### [facility] [address] [address] [address] Joe Shea Sodium [Moles/Vol] 138 mmol/L Normal 136-145 [facility] Comment on above: Performed By: #### Althea GTZ #### [facility] [address] [address] [address] Joe Shea Urea nitrogen [Mass/Vol] 9.0 mg/dL Normal 7.0-18.0 [facility] Comment on above: Performed By: #### Althea GTZ #### [facility] [address] [address] [address] Joe Shea Urea nitrogen/Creatinine [Mass ratio] 12.3 mg/mg Normal [facility] Comment on above: Performed By: #### Althea GTZ #### [facility] [address] [address] [address] Joe Shea XR CHEST 2 Von [...] by: ANA COTE Date: 2022-05-22 02:56 Normal [facility] PROGESTERONEon 05-08-2022 Progesterone 18.1 ng/mL Normal [facility] Comment on above: Result Comment: Foll icular phase 0.1 - 0.9 Luteal phase 1.8 - 23.9 Ovulation phase 0.1 - 12.0 First trimester 11.0 - 44.3 Second trimester 25.4 - 83.3 Third trimester 58.7 - 214.0 Postmenopausal 0.0 - 0.1 Performed By: #### C YANIRA #### [facility] [address] [address] [address] Joe Shea DHEA SERUMon 04-12-2022 Dehydroepiandrosterone (DHEA) 577 ng/dL Normal 31-701 [facility] Comment on above: Result Comment: Age 1 [...] 701 Performed By: #### Darius DOYLE #### [facility] [address] [place], [place] [address] Dr. Joe Shea PROGESTERONEon 04-10-2022 Progesterone 16.0 ng/mL Normal [facility] Comment on above: Result Comment: Foll icular phase 0.1 - 0.9 Luteal phase 1.8 - 23.9 Ovulation phase 0.1 - 12.0 First trimester 11.0 - 44.3 Second trimester 25.4 - 83.3 Third trimester 58.7 - 214.0 Postmenopausal 0.0 - 0.1 Performed By: ###Asiya GTZ #### [facility] [address] [place] [address] Dr. Joe Shea DHEA-SULFATEon 04-06-2022 DHEA-Sulfate 241.0 ug/dL Normal 110.0-431.7 [facility] Comment on above: Performed By: ###Asiya GTZ #### [facility] [address] [place] [address] Dr. Joe Shea FSHon 04-06-2022 FSH 6.6 mIU/mL Normal [facility] Comment on above: Result Comment: Adul t Female: Follicular phase 3.5 - 12.5 Ovulation phase 4.7 - 21.5 Luteal phase 1.7 - 7.7 Postmenopausal 25.8 - 134.8 Performed By: #### Althea GTZ #### [facility] [address] [place] [address] Dr. Joe Shea LUTEINIZING HORMONE (LH)on LH 19.8 mIU/mL Normal [facility] Comment on above: Result Comment: Adul t Female: Follicular phase 2.4 - 12.6 Ovulation phase 14.0 - 95.6 Luteal phase 1.0 - 11.4 Postmenopausal 7.7 - 58.5 Performed By: #### L BCLH #### [facility] [address] [place] [address] Dr. Joe Shea CBC AUTO DIFFon 04-05-2022 BASO # 0.1 103/ul Normal 0.0-0.1 [facility] Comment on above: Performed By: #### C BC #### [facility] [address] [place] [address] Dr. Joe Shea Basophils/100 WBC (Bld) 0.9 % Normal 0.2-2.0 [facility] Comment on above: Performed By: #### C BC #### [facility] [address] [place] [address] Dr. Joe Shea EO # 0.2 103/ul Normal 0.0-0.7 [facility] Comment on above: Performed By: #### C BC #### [facility] [address] [place] [address] Dr. Joe Shea Eosinophils/100 WBC (Bld) 2.6 % Normal 0.9-7.0 [facility] Comment on above: Performed By: #### C BC #### [facility] [address] [place] [address] Dr. Joe Shea Erythrocyte distribution width (RBC) [Ratio] 13.1 % Normal 11.0-15.0 [facility] Comment on above: Performed By: #### C BC #### [facility] [address] [place] [address] Dr. Joe Shea Hematocrit (Bld) [Volume fraction] 38.2 % Normal 36.0-48.0 [facility] Comment on above: Performed By: #### C BC #### [facility] [address] [place] [address] Dr. Joe Shea Hemoglobin (Bld) [Mass/Vol] 12.3 g/dL Normal 12.0-16.0 [facility] Comment on above: Performed By: #### C BC #### [facility] [address] [place] [address] Dr. Joe Shea IG # 0.01 10e3/ul Normal 0.00-0.03 [facility] Comment on above: Performed By: #### C BC #### [facility] [address] [place] [address] Dr. Joe Shea IG % 0.2 % Normal 0.0-0.5 [facility] Comment on above: Performed By: #### C BC #### [facility] [address] [place] [address] Dr. Joe Shea LYMPH # 1.7 103/ul Normal 1.2-3.8 [facility] Comment on above: Performed By: #### C BC #### [facility] [address] [place] [address] Dr. Joe Shea Lymphocytes/100 WBC (Bld) 29.2 % Normal 20.5-60.0 [facility] Comment on above: Performed By: #### C BC #### [facility] [address] [place] [address] Dr. Joe Shea MANUAL DIFF REQ NO Normal [facility] Comment on above: Performed By: #### C BC #### [facility] [address] [place] [address] Dr. Joe Shea MCH (RBC) [Entitic mass] 28.4 pg Normal 26.7-34.0 [facility] Comment on above: Performed By: #### C BC #### [facility] [address] [place] [address] Dr. Joe Shea MCHC (RBC) [Mass/Vol] 32.2 g/dL Normal 29.9-35.2 [facility] Comment on above: Performed By: #### C BC #### [facility] [address] [place] [address] Dr. Joe Shea MCV (RBC) [Entitic vol] 88.2 fL Normal 81.0-99.0 [facility] Comment on above: Performed By: #### C BC #### [facility] [address] [place] [address] Dr. Joe Shea MONO # 0.5 103/ul Normal 0.3-0.8 [facility] Comment on above: Performed By: #### C BC #### [facility] [address] [address] [address] Joe Shea Monocytes/100 WBC (Bld) 8.2 % Normal 1.7-12.0 [facility] Comment on above: Performed By: #### C BC #### [facility] [address] [address] [address] Joe Shea NEUT # 3.4 103/ul Normal 1.4-6.5 [facility] Comment on above: Performed By: #### C BC #### [facility] [address] [address] [address] Joe Shea Neutrophils/100 WBC (Bld) 58.9 % Normal 43.0-75.0 [facility] Comment on above: Performed By: #### C BC #### [facility] [address] [place] [address] Dr. Joe Shea Platelet mean volume (Bld) [Entitic vol] 11.5 fL Normal 9.5-13.5 [facility] Comment on above: Performed By: #### C BC #### [facility] [address] [place] [address] Dr. Joe Shea PLT 233 103/ul Normal 150-450 [facility] Comment on above: Performed By: #### C BC #### [facility] [address] [place] [address] Dr. Joe Shea RBC 4.33 106/ul Normal 4.20-5.40 [facility] Comment on above: Performed By: #### C BC #### [facility] [address] [place] [address] Dr. Joe Shea WBC 5.8 103/ul Normal 4.0-11.0 [facility] Comment on above: Performed By: #### C BC #### [facility] [address] [place] [address] Dr. Joe Shea GLYCOHEMOGLOBIN A1Con 2021 ADA RECOMMENDATION SEE BELOW Normal [facility] Comment on above: Result Comment: ADA RECOMMENDED LIMIT 4.0 - 6.0 ADA THERAPEUTIC TARGET < 7.0 ACTION SUGGESTED > 7.0 Performed By: #### C CARLYN DE JESUS AMY #### [facility] [address] [place] [address] Dr. Joe Shea Glucose [Mass/Vol] 105 mg/dL Normal [facility] Comment on above: Performed By: #### C CARLYN DE JESUS AMY #### [facility] [address] [place] [address] Dr. Joe Shea HbA1c (Bld) [Mass fraction] 5.3 % Normal 4.5-6.2 [facility] Comment on above: Performed By: #### C CARLYN DE JESUS AMY #### [facility] [address] [place] [address] Dr. Joe Shea TSHon 04-05-2022 TSH 0.609 uIU/mL Normal 0.358-3.740 [facility] Comment on above: Performed By: #### C BC #### [facility] [address] [place] [address] Dr. Joe Shea US PELVIS AND TRANSVAGon [...] by: ANGIE MEJIA Date: 2022-04-05 17:23 Normal [facility] AMYLASEon 03-10-2022 Amylase [Catalytic activity/Vol] 64 U/L Normal 25-115 [facility] Comment on above: Performed By: #### C BC #### [facility] [address] [address] [address] Joe Shea CBC AUTO DIFFon 03-10-2022 BASO # 0.1 103/ul Normal 0.0-0.1 [facility] Comment on above: Performed By: #### C BC #### [facility] [address] [address] [address] Joe Shea Basophils/100 WBC (Bld) 0.6 % Normal 0.2-2.0 [facility] Comment on above: Performed By: #### C BC #### [facility] [address] [place] [address] Dr. Joe Shea EO # 0.3 103/ul Normal 0.0-0.7 [facility] Comment on above: Performed By: #### C BC #### [facility] [address] [place] [address] Dr. Joe Shea Eosinophils/100 WBC (Bld) 1.7 % Normal 0.9-7.0 [facility] Comment on above: Performed By: #### C BC #### [facility] [address] [place] [address] Dr. Joe Shea Erythrocyte distribution width (RBC) [Ratio] 13.1 % Normal 11.0-15.0 [facility] Comment on above: Performed By: #### C BC #### [facility] [address] [place] [address] Dr. Joe Shea Hematocrit (Bld) [Volume fraction] 37.9 % Normal 36.0-48.0 [facility] Comment on above: Performed By: #### C BC #### [facility] [address] [place] [address] Dr. Joe Shea Hemoglobin (Bld) [Mass/Vol] 12.2 g/dL Normal 12.0-16.0 [facility] Comment on above: Performed By: #### C BC #### [facility] [address] [place] [address] Dr. Joe Shea IG # 0.05 10e3/ul Critically high 0.00-0.03 [facility] Comment on above: Performed By: #### C BC #### [facility] [address] [place] [address] Dr. Joe Shea IG % 0.3 % Normal 0.0-0.5 [facility] Comment on above: Performed By: #### C BC #### [facility] [address] [place] [address] Dr. Joe Shea LYMPH # 4.7 103/ul Critically high 1.2-3.8 [facility] Comment on above: Performed By: #### C BC #### [facility] [address] [place] [address] Dr. Joe Shea Lymphocytes/100 WBC (Bld) 28.3 % Normal 20.5-60.0 [facility] Comment on above: Performed By: #### C BC #### [facility] [address] [place] [address] Dr. Joe Shea MANUAL DIFF REQ NO Normal [facility] Comment on above: Performed By: #### C BC #### [facility] [address] [place] [address] Dr. Joe Shea MCH (RBC) [Entitic mass] 27.9 pg Normal 26.7-34.0 [facility] Comment on above: Performed By: #### C BC #### [facility] [address] [place] [address] Dr. Joe Shea MCHC (RBC) [Mass/Vol] 32.2 g/dL Normal 29.9-35.2 [facility] Comment on above: Performed By: #### C BC #### [facility] [address] [place] [address] Dr. Joe Shea MCV (RBC) [Entitic vol] 86.5 fL Normal 81.0-99.0 [facility] Comment on above: Performed By: #### C BC #### [facility] [address] [place] [address] Dr. Joe Shea MONO # 0.9 103/ul Critically high 0.3-0.8 [facility] Comment on above: Performed By: #### C BC #### [facility] [address] [address] [address] Joe Shea Monocytes/100 WBC (Bld) 5.5 % Normal 1.7-12.0 [facility] Comment on above: Performed By: #### C BC #### [facility] [address] [address] [address] Joe Shea NEUT # 10.5 103/ul Critically high 1.4-6.5 [facility] Comment on above: Performed By: #### C BC #### [facility] [address] [place] [address] Dr. Joe Shea Neutrophils/100 WBC (Bld) 63.6 % Normal 43.0-75.0 [facility] Comment on above: Performed By: #### C BC #### [facility] [address] [place] [address] Dr. Joe Shea Platelet mean volume (Bld) [Entitic vol] 11.1 fL Normal 9.5-13.5 [facility] Comment on above: Performed By: #### C BC #### [facility] [address] [place] [address] Dr. Joe Shea PLT 428 103/ul Normal 150-450 [facility] Comment on above: Performed By: #### C BC #### [facility] [address] [place] [address] Dr. Joe Shea RBC 4.38 106/ul Normal 4.20-5.40 [facility] Comment on above: Performed By: #### C BC #### [facility] [address] [place] [address] Dr. Joe Shea WBC 16.6 103/ul Critically high 4.0-11.0 [facility] Comment on above: Performed By: #### C BC #### [facility] [address] [place] [address] ABD/PELV W CONon [...] by: MURALI STRANGE Date: 2022-03-10 16:59 Normal [facility] LIPASEon 03-10-2022 Lipase [Catalytic activity/Vol] 81.0 U/L Normal 73.0-393.0 [facility] Comment on above: Performed By: #### C BC #### [facility] [address] [place] [address] Dr. Joe Shea LIVER PROFILEon 03-10-2022 Albumin [Mass/Vol] 4.2 g/dL Normal 3.4-5.0 [facility] Comment on above: Performed By: #### C BC #### [facility] [address] [place] [address] Dr. Joe Shea Albumin/Globulin [Mass ratio] 1.4 {ratio} Normal [facility] Comment on above: Performed By: #### C BC #### [facility] [address] [place] [address] Dr. Joe Shea ALP [Catalytic activity/Vol] 50 U/L Normal 46-116 [facility] Comment on above: Performed By: #### C BC #### [facility] [address] [address] [address] Joe Shea ALT [Catalytic activity/Vol] 14 U/L Normal 14-59 [facility] Comment on above: Performed By: #### C BC #### [facility] [address] [address] [address] Joe Shea AST [Catalytic activity/Vol] 13 U/L Critically low 15-37 [facility] Comment on above: Performed By: #### C BC #### [facility] [address] [address] [address] Joe Shea BILI, CONJUGATED 0.1 mg/dL Normal 0.0-0.2 [facility] Comment on above: Performed By: #### C BC #### [facility] [address] [address] [address] Joe Shea Bilirubin [Mass/Vol] 0.3 mg/dL Normal 0.2-1.0 [facility] Comment on above: Performed By: #### C BC #### [facility] [address] [address] [address] Joe Shea Globulin (S) [Mass/Vol] 3.1 g/dL Normal [facility] Comment on above: Performed By: #### C BC #### [facility] [address] [address] [address] Joe Shea Protein [Mass/Vol] 7.3 g/dL Normal 6.4-8.2 [facility] Comment on above: Performed By: #### C BC #### [facility] [address] [address] [address] Joe Shea PREG HCG QUALon 03-10-2022 , QUAL Negative Normal NEGATIVE [facility] Comment on above: Performed By: #### L BCLH #### [facility] [address] [address] [address] Joe Shea PROF CHEM 8 (BAS METB)on Anion gap [Moles/Vol] 17.6 mmol/L Normal [facility] Comment on above: Performed By: #### C MP, LIPA, NESTOR #### [facility] [address] [address] [address] Joe Shea Calcium [Mass/Vol] 9.0 mg/dL Normal 8.5-10.1 [facility] Comment on above: Performed By: #### C CARLYN DE JESUS AMY #### [facility] [address] [place] [address] Dr. Joe Shea Chloride [Moles/Vol] 102 mmol/L Normal 98-107 [facility] Comment on above: Performed By: #### C CARLYN DE JESUS NESTOR #### [facility] [address] [place] [address] Dr. Joe Shea CO2 [Moles/Vol] 23.4 mmol/L Normal 21.0-32.0 [facility] Comment on above: Performed By: #### C CARLYN DE JESUS AMY #### [facility] [address] [place] [address] Dr. Joe Shea Creatinine [Mass/Vol] 0.84 mg/dL Normal 0.55-1.02 [facility] Comment on above: Performed By: #### C CARLYN DE JESUS, NESTOR #### [facility] [address] [place] [address] Dr. Joe Shea EGFR-AF SRI LANKAN >60 Normal >=60 [facility] Comment on above: Performed By: #### C CARLYN DE JESUS AMY #### [facility] [address] [place] [address] Dr. Joe Shea EGFR-NON AF SRI LANKAN >60 Normal >=60 [facility] Comment on above: Performed By: #### C CARLYN DE JESUS, NESTOR #### [facility] [address] [place] [address] Dr. Joe Shea Glucose [Mass/Vol] 149 mg/dL Critically high 74-106 [facility] Comment on above: Performed By: #### C CARLYN DE JESUS, NESTOR #### [facility] [address] [place] [address] Dr. Joe Seha Potassium [Moles/Vol] 2.9 mmol/L Critically low 3.5-5.1 [facility] Comment on above: Performed By: #### C CARLYN DE JESUS, NESTOR #### [facility] [address] [place], [place] [id number] Dr. Joe Shea Sodium [Moles/Vol] 139 mmol/L Normal 136-145 [facility] Comment on above: Performed By: #### C CARLYN DE JESUS AMY #### [facility] [address] [address] [address] Joe Shea Urea nitrogen [Mass/Vol] 11.0 mg/dL Normal 7.0-18.0 [facility] Comment on above: Performed By: #### C CARLYN DE JESUS AMY #### [facility] [address] [address] [address] Joe Shea Urea nitrogen/Creatinine [Mass ratio] 13.1 mg/mg Normal [facility] Comment on above: Performed By: #### C CARLYN DE JESUS AMY #### [facility] [address] [address] [address] Joe Shea XR CSPINE 2_3 VIEWSon [...] ANGIE MEJIA Date: 2022-01-18 08:03 Normal [facility] C BP Strepon 12-23-2019 C BP Strep This is strictly a screening test for Strep Group A( Streptococcus pyogenes). No other pathogens will be noted. Final Backup plate negative for Group A Streptococus Resulted at [facility] Normal [facility] Comment on above: Performed By: #### B P #### [facility] (DEFAULT) [address] [place] [address] [facility] [address] [place] [address] Ambulatory Patient Education on 12-21-2019 Ambulatory Patient [...] a child 2 years or older. ? [id number] [employer]. [address] [place] [address]. All rights reserved. This information is not intended as a substitute for professional medical care. Always follow your healthcare professional's instructions. Strep today is Negative. Will send for culture to [facility] and notify if it returns positive. Take medication as prescribed. Discontinue for a negative strep culture. Discard and replace toothbrush after taking antibiotics for at least 24 hours. May use hhbu-fai-xpmamkz Tylenol and Motrin for pain relief. May use of tkua-bhp-ncvjvpa Chloraseptic throat spray, lozenges, cool or warm [...] tabs, 0 Refill(s), 12/26/19 14:42:00 EDT, Pharmacy: [id number] Normal [facility] OR Trackon 12-21-2019 BVO Red Swab # 1 [facility] Comment on above: Performed By: #### [facility] Tracking Order #### [facility] [address] [place] [address] Urgent Care Office/Clinic No sabiha 12-21-2019 Urgent [...] POC: negative. Swab will be sent to [facility] for culture. We will call if positive and treat appropriately. Additional Vitals Body Mass Index Measured: 18.43 kg/m2 Peripheral Pulse Rate: 111 bpm High Assessment/Plan 1. Sore throat Strep today is Negative. Will send for culture to [facility] and notify if it returns positive. Take medication as prescribed. Discontinue for a negative strep culture. Discard and replace toothbrush after taking antibiotics for at least 24 hours. May use mfxv-ncq-ugiydid Tylenol and Motrin for pain relief. 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 Facility 03-28-2023 10:16-0400 Body height 157.48 cm Referring Provider Unknown [id number] [address] [place] Work Phone: 03-28-2023 10:16-0400 Body mass index (BMI) [Ratio] 23.78 kg/m2 Referring Provider Unknown [id number] [address] [place] Work Phone: 03-28-2023 10:16-0400 Body surface area Derived from formula 1.59 m2 Referring Provider Unknown [id number] [address] [place] Work Phone: 03-28-2023 10:16-0400 Body weight 58.97 kg Referring Provider Unknown [id number] [address] [place] Work Phone: 03-28-2023 10:16-0400 Diastolic blood pressure 65 mm[Hg] Referring Provider Unknown [id number] [address] [place] Work Phone: 03-28-2023 10:16-0400 Heart rate 96 /min Referring Provider Unknown [id number] [address] [place] Work Phone: 03-28-2023 10:16-0400 Systolic blood pressure 107 mm[Hg] Referring Provider Unknown [id number] [address] [place] Work Phone: 03-28-2023 10:16-0400 0 1 Referring Provider Unknown [id number] [address] [place] Work Phone: Comment on above: [employer] 02-14-2023 09:15-0400 Body height 154.94 cm Filippo Larson Other [employer] Other 02-14-2023 09:15-0400 Body mass index (BMI) [Ratio] 21.73 kg/m2 Filippo Larson Other [employer] Other 02-14-2023 09:15-0400 Body weight 52.16 kg Filippo Larson Other [employer] Other 02-14-2023 09:15-0400 Diastolic blood pressure 68 mm[Hg] Filippo Larson Other [employer] Other 02-14-2023 09:15-0400 Systolic blood pressure 96 mm[Hg] Filippo Larson Other [employer] Other 07-17-2022 14:26-0500 Blood Pressure Location [facility] 07-17-2022 14:26-0500 Diastolic blood pressure 70 mm[Hg] [facility] 07-17-2022 14:26-0500 Heart rate 70 /min [facility] 07-17-2022 14:26-0500 Respiratory rate 16 /min [facility] 07-17-2022 14:26-0500 Systolic blood pressure 102 mm[Hg] [facility] 03-09-2020 20:24-0400 BP Diastolic 61 mm[Hg] PHYSICIAN NO [facility] 03-09-2020 20:24-0400 BP Systolic 117 mm[Hg] PHYSICIAN NO [facility] 03-09-2020 20:24-0400 Pulse (Heart Rate) 85 /min PHYSICIAN NO [facility] 03-09-2020 20:24-0400 Pulse Oximetry 100 % PHYSICIAN NO [facility] 03-09-2020 20:24-0400 Respiratory Rate 24 /min PHYSICIAN NO [facility] 03-09-2020 18:49-0400 BMI (Body Mass Index) 20 kg/m2 PHYSICIAN NO [facility] 03-09-2020 18:49-0400 Body Temperature 98.7 [degF] PHYSICIAN NO [facility] 03-09-2020 18:49-0400 Body weight 49.7 kg PHYSICIAN NO [facility] 03-09-2020 18:49-0400 Height 157.48 cm PHYSICIAN NO [facility] Encounters Encounter Date Encounter Type Care Provider Facility Start: 06-11-2023 End: 06-11-2023 ambulatory NESTOR PRICE Not Available Start: 05-28-2023 End: 05-28-2023 ambulatory EN QUINTANA Not Available Start: 05-14-2023 End: 05-14-2023 ambulatory NESTOR PRICE Not Available Start: 03-28-2023 Office consultation new/estab patient 80 min Referring Provider Unknown [id number] [address] [place] Work Phone: Start: 03-28-2023 Patient encounter procedure Referring Provider Unknown [id number] [address] [place] Work Phone: Start: 03-28-2023 ambulatory Ramakrishna Schwarz Facility :[facility] Start: 02-14-2023 End: 02-14-2023 ambulatory Filippo Larson Other [place] [employer] Other Start: 02-14-2023 Office outpatient vi sit 15 minutes Filippo Larson [facility] Start: 11-28-2022 End: 11-28-[address] SUKI CONDE Facility:[facility] Start: 11-28-[address] SUIK CONDE Facil ity:[facility] Start: 10-28-2022 End: 10-28-[address] SUKI CONDE Facility:[facility] Start: 09-29-2022 End: 09-29-[address] SUKI CONDE Facility:[facility] Start: 09-19-2022 End: 09-20-[address] SUKI CONDE Facility:[facility] Start: 08-15-[address] SUKI CONDE Facil ity:[facility] Start: 07-17-2022 End: 07-18-2022 ambulatory SUKI CONDE PROVIDER Facility:[facility] Start: 07-17-2022 End: 07-17-2022 Patient encounter procedure Mayito LIM General Surgery Nill/Hossein Hudson Start: 07-10-2022 End: 07-10-[address] EN QUINTANA . Facility:[facility] Start: 07-08-2022 Encounter for preprocedural laboratory examination DR EN QUINTANA . [facility] Start: 07-06-2022 End: 07-07-[address] EN QUINTANA . Facility:[facility] Start: 07-06-2022 End: 07-07-2022 Encounter for preprocedural laboratory examination DR EN QUINTANA . Facility:[facility] Start: 06-15-2022 End: 06-16-[address] EN QUINTANA . Facility:[facility] Start: 06-11-2022 End: 06-12-2022 ambulatory JUANJOSE VIRAMONTES Facility:[facility] Start: 06-08-2022 ambulatory SUKI CONDE PROVIDER Facility:[facility] Start: 05-31-2022 End: 06-01-[address] EN [...] 03-09-2020 Emergency department patient visit PHYSICIAN KIMI [facility] Start: 04-27-2014 End: 04-27-2014 Telephone encounter Noa Dimas MD Work Phone: Reproductive Endocrinology Infertility Procedures Date Procedure Procedure Detail Performing Clinician Colonoscopy Mayito LIM Dilation and curettage Temo LIM Dilation and curettage Temo LIM Esophagogastroduodenoscopy Arianna LIM Excision of cyst of ovary Juana LIM [facility] Mayito LIM Plan of Treatment Date Care Activity Detail Author Start: 03-01-2021 Influenza vaccination INFLUENZ A (Season Ended) [facility] Start: 02-28-2020 PAP TESTING PAP TESTING [facility] Start: 2018 Urine microalbumin profile DTAP,TDAP,TD (1 - Tdap) [facility] Start: 2017 CHLAMYDIA SCREENING (18-24) CHLAMYDIA SCREENING (18-24) [facility] Start: 2017 GC (GONORRHEA) SCREE KRUNAL (18-24) GC (GONORRHEA) SCREENING (18-24) [facility] Start: 2017 HEPATITIS C SCREENING HEPATITIS C SC REENING [facility] Start: 2017 HIV SCREENING HIV SCREENING [facility] Start: 2011 Adult depression screening assessment DEPRESSION SCREENING [facility] Start: 2010 HPV VACCINE (1 - 2-d ose series) HPV VACCINE (1 - 2-dose series) [facility] Patient Education Anxiety (ED) [facility] Patient referral [facility] Immunizations Immunization Date Immunization Notes Care Provider Fa juan c NEGATED: Highlighted row has not occurred!07-17-2022 influenza virus vaccine, unspecified formulation Mayito LIM General Surgery [facility] Payers Date Payer Category Payer Unknown [facility] CE PLAN [employer]ZZ[employer] PPO CONNE[employer] INHEAL [id number] 2013-2014 PPO [id number] 1999 Unknown [id number] 2.16.840.1.863992.3.579.2.727 1999 Unknown [id number] 2.16.840.1.416508.3.579.2.727 1999 Unknown [id number] 2.16.840.1.974920.3.579.2.593 1999 Unknown [id number] 2.16.840.1.468845.3.579.2.593 1999 Unknown [id number] 2.16.840.1.430230.3.579.2.593 1999 Unknown [id number] 2.16.840.1.397232.3.579.2.593 1999 Unknown [id number] 2.16.840.1.663371.3.579.2.593 1999 Unknown [id number] 2.16.840.1.855038.3.579.2.593 1999 Unknown [id number] 2.16.840.1.595307.3.579.2.593 1999 Unknown [id number] 2.16.840.1.482738.3.579.2.593 1999 Unknown [id number] 2.16.840.1.171295.3.579.2.593 1999 Unknown [id number] 2.16.840.1.693749.3.579.2.593 1999 Unknown [id number] 2.16.840.1.682642.3.579.2.593 1999 Unknown [id number] 2.16.840.1.046650.3.579.2.593 1999 Unknown [id number] 2.16.840.1.445959.3.579.2.593 1999 Unknown [id number] 2.16.840.1.199046.3.579.2.593 1999 Unknown [id number] 2.16.840.1.407484.3.579.2.593 1999 Unknown [id number] 2.16.840.1.328069.3.579.2.593 1999 Unknown [id number] 2.16.840.1.943414.3.579.2.593 1999 Unknown [id number] 2.16.840.1.071176.3.579.2.593 1999 Unknown [id number] 2.16.840.1.728172.3.579.2.593 1999 Unknown [id number] 2.16.840.1.553276.3.579.2.593 1999 Unknown [id number] 2.16.840.1.622262.3.579.2.593 1999 Unknown [id number] 2.16.840.1.912101.3.579.2.356 1999 Unknown [id number] 2.16.840.1.919347.3.579.2.1259 1999 Unknown [id number] 2.16.840.1.962144.3.579.2.1259 1999 Unknown [id number] 2.16.840.1.029198.3.579.2.1259 1959 Unknown [id number] 1959 Unknown [id number] 1959 Unknown [id number] Self-pay Self Pay [id number] Unknown Self Pay [id number] Unknown [facility] Social History Date Type Detail Facility Start: 03-09-2020 Tobacco smoking status [facility] Smoker (finding) [facility] Start: 2000 Sex Assigned At Female [facility] Start: 04-12-2014 Tobacco smoking status [facility] Never smoker [facility] Start: 04-12-2014 Tobacco use and exposure Never used [facility] Start: 04-12-2014 Alcohol intake Current non-dr stunt double of alcohol (finding) [facility] Start: 2000 Sex Assigned At Not on file [facility] Start: 07-17-2022 Tobacco smoking status Ex-smoker (finding) [facility] Tobacco smoking status Smokeless tobacco user within last 30 days [facility] Sex Assigned At Female [facility] No alcohol use No alcohol use [id number] [address] [place] Work Phone: NEGATED: Highlighted row Denies History of domestic violence Denies History of domestic violence [id number] [address] [place] Work Phone: Goals Date Patient [...] needed. Retrun visit here in three months. [employer] Other 01-20-2023 NoteChief Complaint consultation for epigastric [...] Reports colonoscopy completed several years ago at [facility] was normal. History of Present Illness 22 yo female with h/o bipolar disorder, anxiety, migraines, referred for intermittent epigastric and LUQ pain, burning, at times sharp/stabbing; occasional N/V; + boating; no food triggers, occurs celia without eating; no hematemesis or melena; no hematochezia, some constipation, improved with stool softeners; had normal EGD and colonoscopy at [facility] [place]; abdominal operations significant for laparoscopy [...] more than 30 da (more content not included)...[facility] on [facility]:Result Comment: Electronically Signed By: RAPHAEL MACIAS, Mayito Matthews\Date and Time Signed: 07/20/22 14:58 [id number] Note OPERATIVE NOTE OPERATION DATE: 07/10/2021 PROCEDURE: Diagnostic laparoscopy with chromopertubation. PREOPERATIVE DIAGNOSIS: Pelvic pain. POSTOPERATIVE DIAGNOSIS: Pelvic pain, including small endometrial implant posterior cul-de-sac, as well as possible blunted tube on the patient's left side. ANESTHESIA: General. SURGEON: En Quintana D.O. [employer]ISE SALES PERSON: ISAURO Mccoy URINE OUTPUT: Yellow and clear. BLOOD LOSS: 5 mL. FINDINGS: Slightly blunted tube on the left side, endometriosis posterior cul-de-sac, otherwise normal appearing uterus, tubes and ovaries. Normal appearing appendix. Some adhesions of the bowel to the pelvic and abdominal side wall on the patient's right side. Normal appearing liver. No evidence of Fmks-Wpyf-Mfhfee syndrome. PROCEDURE: The patient was taken back [...] taken to Recovery Room in stable conditionThe [facility] [id number] NoteOP Note OPERATION DATE: 07/10/2022 PROCEDURE: Diagnostic laparoscopy with chromopertubation. PREOPERATIVE DIAGNOSIS: Pelvic pain, suspected endometriosis, fallopian tube disorder. POSTOPERATIVE DIAGNOSIS: Pelvic pain, suspected endometriosis, fallopian tube disorder, including mild endometriosis, bilateral patent fallopian tubes, small bowel adhesion to the pelvic side wall. ANESTHESIA: General. SURGEON: En Quintana D.O. ENTERPRISE SALES PERSON: ISAURO Mccoy URINE OUTPUT: Yellow and clear. BLOOD LOSS: 5 mL. ADDENDUM: Please note that chromopertubation was performed after methylene blue was placed through the HUMI manipulator. Spillage of methylene blue could be seen from both tubes.The [facility] [id number] Instructions* Patient Instructions* Jennifer Lam - 04/27/2014 4:49 PM EDT [phone] - Patient mother would like to speak with a nurse concerning medications that her daughter is taking. [facility] N[facility] - Reported * the patient is seen at the request of Dr. Gonzales at [facility] for consultation regarding second opinion for placental hemorrhage; [facility] 08/15/2023 * FC MA [id number] [address] [place] Work Phone: chief complaint Narrative - Reported* the patient is seen at the request of Dr. Gonzales at [facility] for consultation regarding second opinion for placental hemorrhage; [facility] 08/15/2023 * FC MA [id number] [address] [place] Work Phone: evaluation + Plan note No data available for this section General Surgery [facility] History general Narrative - Reported* Type Description Date Medical History Anxiety Medical History GERD (gastroesophageal reflux di sease) Medical History bipolar Surgical History LAPAROSCOPY-times 2013 [facility] ultrasound & CT scans 12/2022 [facility] Other Hospital Discharge instructions No data available for this section General Surgery [facility] Progress note No data available for this [...] section and content) DATE CREATED AUTHOR 02/04/2020 [facility] DATE CREATED AUTHOR AUTHOR'S ORGANIZ ATION 08/16/2022 [facility] DATE CREATED AUTHOR AUTHOR'S ORGANIZ ATION 12/07/2022 [facility] DATE CREATED AUTHOR AUTHOR'S ORGANIZ ATION 04/06/2023 [facility] DATE CREATED AUTHOR AUTHOR'S ORGANIZ ATION 06/13/2023 [facility] EPIC Source Comments (unrecognize d section and content) In the event this informatio n is protected by the Federal Confidentiality of Alcohol and Drug Abuse Patient Records regulations: The Federal rules restrict any use of the information to criminally investigate or prosecute any alcohol or drug abuse patient.[facility] Patient Care team informatio n (unrecognized section and content) Personnel Name: SUKI CONDE MD Address: Address: [address] [place], [place] [address] [address] REASON FOR VISIT (unrecogniz ed section and [...] BE BASED ON THE PRIMARY CLINICAL RECORDS. [employer] [facility]. provides no warranty or guarantee of the accuracy or completeness of information in this document.
--- NOTE | 2023-07-02 08:06 | US_ITS ---
[address] [address] Patient Name: LELIA CONNOLLY MRN: [id number] date: 2000 Sex: F Assigned Patient Location: [facility] Current Patient Location: [facility] Accession/Order Number: [id number] Exam Date: 07/02/2023 08:10 Report Date: 07/02/2023 09:20 At the request of: NESTOR PRICE Procedure: US OB BPP w non-stress EXAMINATION: US OB BPP w non-stress HISTORY: IRON DEFICIENCY ANEMIA D50.9 COMPARISON: No relevant comparison available. TECHNIQUE: Ultrasound biophysical profile was performed in the radiology department. FINDINGS: BABY A BREATHING MOVEMENTS: 2.0 GROSS BODY MOVEMENTS: 2.0 TONE: 2.0 AMNIOTIC FLUID VOLUME: 2.0 PRESENTATION: BREECH HEART RATE: 153.4 bpm Largest fluid pocket: 5.8 x 4.3 cm GESTATIONAL AGE: 33 weeks 5 days BABY B BREATHING MOVEMENTS: 2.0 GROSS BODY MOVEMENTS: 2.0 TONE: 2.0 AMNIOTIC FLUID VOLUME: 2.0 PRESENTATION: CEPHALIC HEART RATE: 174.2 bpm Largest fluid pocket: 6.5 x 4.1 cm GESTATIONAL AGE: 33 weeks 5 days CONCLUSION: Total biophysical profile score for baby A 02/05 and baby B 02/05. Electronically authenticated by: ANGIE MEJIA Date: 07/02/2023 09:20
--- NOTE | 2023-07-02 08:10 | US_ITS ---
[address] [address] Patient Name: LELIA CONNOLLY MRN: [id number] date: 2000 Sex: F Assigned Patient Location: [facility] Current Patient Location: [facility] Accession/Order Number: [id number] Exam Date: 07/02/2023 08:10 Report Date: 07/02/2023 09:29 At the request of: NESTOR PRICE Procedure: US OB >= 14 wk fetus add gest EXAMINATION: US OB >= 14 wk fetus add gest HISTORY: IRON DEFICIENCY ANEMIA D50.9 COMPARISON: No relevant comparison available. FINDINGS: GESTATIONAL AGE: Age by EDC: 33 weeks 5 days ARNALDO by EDC: 08/15/2023 BABY A: Heart Rate: 153 bpm Amniotic Fluid Volume: Subjectively normal Number: 2.0 Position: Cephalic Maximum Vertical Pocket: 5.8 x 4.3 cm BABY B: Heart Rate: 174 bpm Amniotic Fluid Volume: Subjectively normal Number: 2.0 Position: Breech Maximum Vertical Pocket: 6.5 x 4.3 cm US/US OB >= 14 wk fetus add gest IMPRESSION: Twin intrauterine gestation Electronically authenticated by: ANGIE MEJIA Date: 07/02/2023 09:29
[2023-07-02 08:58] VITALS: BP 124/64; PULSE 98
== END 2023-07-02 09:47 | disposition home or self-care (01) ==
LOC: FBCO 07:51 → FBC 08:06
PROVIDERS: PCP Family Medicine; Visit Provider Physician Assistant
DX: O30.043 Twin pregnancy, dichorionic/diamniotic, third trimester (principal); O41.8X30 Other specified disorders of amniotic fluid and membranes, third trimester, not applicable or unspecified; O46.8X3 Other antepartum hemorrhage, third trimester; O36.5930 Maternal care for other known or suspected poor fetal growth, third trimester, not applicable or unspecified; D50.9 Iron deficiency anemia, unspecified; Z3A.33 33 weeks gestation of pregnancy
CPT/HCPCS: 76810; 76818

== ENCOUNTER 2023-07-05 06:56 | Outpatient (OUT) | payer OTHER, SELFPAY ==
--- OUTSIDE RECORDS SUMMARY | 2023-07-05 07:00 | XMS_ITS | CCD ---
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 Name Role Phone NO FAMILY, PHYSICIAN Primary Care Provider UnaNela Roberts Primary Care Provider SUKI CONDE Primary Care Physician AMAYA PROVIDER, SUKI Referring Unavailab le NILMayito Valdez Attending Unavailable AMAYA PROVIDER, SUKI Referring Unavailab Mayito Kurtz Attending Unavailable AMAYA, DR SUKI Kong Primary Care Unavailable SAMREEN SCHWARZ Admitting Unavailable SAMREEN SCHWARZ Attending Unavailable SAMREEN SCHWARZ Consulting Unavailable ITKIN MURALI Consulting Unavailable AMAYA, DR SUKI Kong Primary Care Unavailable NILL Rip, DR WEINER Admitting Unavailable NILL ., DR WEINER Attending Unavailable AMAYA, DR SUKI Kong Primary Care Unavailable EUSEBIO Erwin, MARYURI Admitting Unavailable MARYURI RIVERA Attending Unavailable DEE ., NESTOR Consulting Unavailable EUSEBIO ., MARYURI Consulting Unavailable MISTI BREWER Consulting Unavailable EUSEBIO Erwin, MARYURI Admitting Unavailable MARYURI RIVERA Attending Unavailable JORGE, DR SHIRLEY Thapa Consulting Unavailable AMAYA, DR SUKI Kong Primary Care Unavailable MARYURI RIVERA Consulting Unavailable JULITO ADAMSYL Consulting Unavailable ANGIE, HARMAN Admitting Unavailable HARMAN [...] SHABAZZ Consulting Unavailable ANAI CHANG Consulting Unavailable HRAMAN ADAMS Admitting Unavailable ANGIE, HARMAN Attending Unavailable HARMAN ADAMS Consulting Unavailable NADERER, DR SUKI Kong Primary Care Unavailable ELIZABETH ., DR GATICA Consulting Unavailable ELIZABETH ., DR GATIAC Admitting Unavailable ELIZABETH ., DR GATICA Attending Unavailable AMAYA, DR SUKI Kong Primary Care Unavailable AMAYA, DR SUKI Kong Referring Unavailable AMAYA, DR SUKI Kong Admitting Unavailable AMAYA, DR SUKI Kong Attending Unavailable MEGARGEL, DR ANGIE Arce Consulting Unavailable REQUEST, DR FERNANDO LISTED Primary Care Unavaila caitie CONDE, DR SUKI Kong Consulting Unavailable Filippo Larson Unavailable Unknown, Referring Provider Unavailable Unav ailable Ramakrishna Schwarz Attending Unavailable UNKNOWN, PCP Primary Care Unavailable CECIL QUINTANA Attending Unavailable NESTOR PRICE Attending Unavailable NESTOR PRICE Attending Unavailable No Pcp, No Pcp Primary Care Provider Unavailabl e Unavailable Unavailable Unavailable Allergies Allergy Classification Reported Allergen(s) Allergy Type Date of Onset Reaction(s) Facility (1 source) No Known Medication Allergies; Translations: [No Known Medication Allergies] Propensity to adverse reactions (disorder) [facility] Repository Medications Current Medications Medication Drug [...] 07/17/22 Status: Ordered take 2 tablets by [facility] once daily at bedtime Elavil 25 MG 2 tablets at bedtime Orally Once a day for 30 days Not-Taking aspirin 81 mg delayed release oral tablet (1 source) Platelet Aggregation Inhibitor, Nonsteroidal Anti-inflammatory Drug Start: 04-01-2023 take 1 tablet by mouth in the morning aspirin 81 mg Take 1 tablet (81 mg total) by mouth in the morning. 60 tablet 4 04/01/2023 Active citalopram 40 mg oral tablet (6 sources) Serotonin Reuptake Inhibitor Start: 03-07-2023 take 0.5 tablet by mouth in the morning citalopram (CeleXA) 40 mg tablet Take 0.5 tablets (20 mg total) by mouth in the morning. 0 03/07/2023 Active Start: 07-11-2022 take 1 tablet by jayro th once daily citalopram 40 mg Tab 40 mg = 1 tab(s), Oral, Daily, Refills(s) 0 Start Date: 07/11/22 Status: Ordered CeleXA 40 MG Ora l Tablet Quantity: 0 Refills: 0 Ordered: 28-Mar-2023 DO Active take 0.5 tablet by m outh every twenty-four hours CeleXA 40 MG 0.5 tablet Orally Once a day Active take 1 tablet by jayro th once daily citalopram hydrobromide (CELEXA) 10 mg tablet Take [...] Not-Taking hydrOXYzine hydrochloride 25 mg oral tablet (5 sources) Antihistamine Start: 07-11-2022 take 1 tablet by mouth four times daily as needed for anxiety hydrOXYzine hydrochloride 25 mg Tab 25 mg = 1 tab(s), Oral, QID, PRN as needed for anxiety, Refills(s) 0 Start Date: 07/11/22 Status: Ordered take 1 tablet by mouth once fabienne y hydrOXYzine (ATARAX) 25 mg tablet Take 1 tablet (25 mg total) by mouth once daily. 0 Active Atarax 25 MG TAB S Quantity: 0 Refills: 0 Ordered: 28-Mar-2023 DO Active hydrOXYzine HCl Active lamoTRIgine 25 mg oral tablet (2 sources) Mood Stabilizer, Anti-epileptic Agent Start: 07-11-2022 take 2 tablets by mouth at bedtime lamotrigine 25 mg Tab 50 mg = 2 tab(s), Oral, Bedtime, Refills(s) 0 Start Date: 07/11/22 Status: Ordered LaMICtal 25 MG 1 tablet Orally Not-Taking magnesium oxide 400 mg oral capsule (1 source) Start: 03-07-2023 take 1 capsule by mouth in the morning magnesium oxide 400 mg magnesium capsule Take 1 capsule (400 mg total) by mouth in the morning. 0 03/07/2023 Active metoclopramide 10 mg oral tablet (1 source) Dopamine-2 Receptor Antagonist take 1 tablet by mouth three times weekly metoclopramide (REGLAN) 10 mg tablet Take 1 tablet (10 mg total) by mouth 3 (three) times a week. 0 Active ondansetron 4 mg oral tablet (3 sources) Serotonin-3 Receptor Antagonist Start: 07-17-2022 Zofran 4 mg Tab Refills(s) 0 Start Date: 07/17/22 Status: Ordered take 1 tablet by jayro th once daily Zofran 4 MG 1 tablet [...] pantoprazole 40 mg delayed release oral tablet (3 sources) Proton Pump Inhibitor Start: 3 take 1 tablet by mouth once daily Pantoprazole [address] Tab 40 mg = 1 tab(s), Oral, Daily, Refills(s) 0 Start Date: 07/17/22 Status: Ordered vit,amelia 74/iron/folic ( VITAMIN 1+1 ORAL) (1 source) vit,amelia 74/iron/folic ( VITAMIN 1+1 ORAL) Take by mouth. 0 Active SUMAtriptan 100 mg oral tablet (2 sources) [...] twice daily with meals. NORETHINDRONE AC-ETH ESTRADIOL (.11/27, , ORAL) (1 source) End: 07-26-2014 NORETHINDRONE AC-ETH ESTRADIOL (.5, 21, ORAL) Take by mouth. 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 ; Translations: [Other mental disorders complicating , unspecified trimester] Onset: 3 04-28-2023 Episodic Other complications of (1 source) Anxiety in ; Translations: [Other mental disorders complicating , unspecified trimester] Onset: 3 04-28-2023 Episodic Other endocrine disorders (1 source) Disorder [...] unspecified] Episodic Other and delivery including normal (3 sources) Twin , dichorionic/diamniotic , second trimester; Translations: [Dichorionic diamniotic twin ] Onset: 3 07-04-2023 Episodic Other upper respiratory disease (1 source) Seasonal allergic rhinitis 07-11-2022 Chronic Ovarian cyst (6 sources) Cyst of ovary; Translations: [Corpus luteum cyst of right ovary] Onset: 2 07-11-2022 Episodic Polyhydramnios and other problems of amniotic cavity (3 sources) Other specified disorders of amniotic fluid and membranes, second trimester, fetus 1; Translations: [Subchorionic hematoma] Onset: 3 04-28-2023 Episodic Residual codes; unclassified (1 source) Insomnia [...] object(s), not elsewhere classified, initial encounter; Translations: [[facility] SHRP OB NOT ELSW CLASS [...] fallopian tube and broad ligament, unspecified; Translations: [[facility] NONINFL D/O OVARY TUBE AND BRD [...] a) No falls within the last year [id number] [address] [place] Work Phone: Tobacco use status [facility] a) Yes M [id number] [address] [place] Work Phone: Blood Pressure Cuff Size Adult [id number] [address] [place] Work Phone: Blood Pressure Cuff Size Yes [id number] [address] [place] Work Phone: No Panel Informationon 03-28 Normal [id number] [address] [place] Work Phone: OB Completed scan [...] gestation - rr cfDNA - Referred from [place] because of subchorionic hematomas A targeted anatomic [...] previously been seen by Dr. Gonzales in [place]. 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 Normal [facility] AMYLASEon 10-28-2022 Amylase [Catalytic activity/Vol] 35 U/L Normal 25-115 [facility] Comment on above: Performed By: #### C MP, LIPA, NESTRO #### [facility] [address] [place] [address] Dr. Joe Shea CBC AUTO DIFFon 10-28-2022 BASO # 0.1 103/ul Normal 0.0-0.1 [facility] Comment on above: Performed By: #### C CARLYN DE JESUS, NESTOR #### [facility] [address] [place] [address] Dr. Joe Shea Basophils/100 WBC (Bld) 0.4 % Normal 0.2-2.0 [facility] Comment on above: Performed By: #### C CALRYN DE JESUS, NESTOR #### [facility] [address] [place] [address] Dr. Joe Shea EO # 0.1 103/ul Normal 0.0-0.7 [facility] Comment on above: Performed By: #### C CARLYN DE JESUS, NESTOR #### [facility] [address] [place] [address] Dr. Joe Shea Eosinophils/100 WBC (Bld) 0.8 % Critically low 0.9-7. 0 [facility] Comment on above: Performed By: #### C CARLYN DE JESUS, NESTOR #### [facility] [address] [place] [address] Dr. Joe Shea Erythrocyte distribution width (RBC) [Ratio] 13.2 % Normal 11.0-15.0 [facility] Comment on above: Performed By: #### C CARLYN DE JESUS, NESTOR #### [facility] [address] [place] [address] Dr. Joe Shea Hematocrit (Bld) [Volume fraction] 37.2 % Normal 36.0-48.0 [facility] Comment on above: Performed By: #### C HUGO DE JESUSA, NESTOR #### [facility] [address] [place] [address] Dr. Joe Shea Hemoglobin (Bld) [Mass/Vol] 12.0 g/dL Normal 12.0-16.0 [facility] Comment on above: Performed By: #### C HUGO DE JESUSA, NESTOR #### [facility] [address] [place] [address] Dr. Joe Shea IG # 0.03 10e3/ul Normal 0.00-0.03 [facility] Comment on above: Performed By: #### C MP, LIPA, NESTOR #### [facility] [address] [place] [address] Dr. Joe Shea IG % 0.2 % Normal 0.0-0.5 [facility] Comment on above: Performed By: #### C MP, LIPA, NESTOR #### [facility] [address] [place] [address] Dr. Joe Shea LYMPH # 1.9 103/ul Normal 1.2-3.8 [facility] Comment on above: Performed By: #### C MP, LIPA, NESTOR #### [facility] [address] [place] [address] Dr. Joe Shea Lymphocytes/100 WBC (Bld) 15.2 % Critically low 20.5-6 0.0 [facility] Comment on above: Performed By: #### C MP LIPA, NESTOR #### [facility] [address] [place] [address] Dr. Joe Shea MANUAL DIFF REQ NO Normal [facility] [place] [facility] Comment on above: Performed By: #### C MP, LIPA, NESTOR #### [facility] [address] [place] [address] Dr. Joe Shea MCH (RBC) [Entitic mass] 28.4 pg Normal 26.7-34.0 [facility] Comment on above: Performed By: #### C MP LIPA, NESTOR #### [facility] [address] [place] [address] Dr. Joe Shea MCHC (RBC) [Mass/Vol] 32.3 g/dL Normal 29.9-35.2 [facility] Comment on above: Performed By: #### C MP, LIPA, NESTOR #### [facility] [address] [place] [address] Dr. Joe Shea MCV (RBC) [Entitic vol] 87.9 fL Normal 81.0-99.0 [facility] Comment on above: Performed By: #### C MP, LIPA, NESTOR #### [facility] [address] [place] [address] Dr. Joe Shea MONO # 0.9 103/ul Critically high 0.3-0.8 [facility] Comment on above: Performed By: #### C CARLYN DE JESUS, NESTOR #### [facility] [address] [place] [address] Dr. Joe Shea Monocytes/100 WBC (Bld) 7.1 % Normal 1.7-12.0 [facility] Comment on above: Performed By: #### C NEAL LIPA, NESTOR #### [facility] [address] [place] [address] Dr. Joe Shea NEUT # 9.5 103/ul Critically high 1.4-6.5 [facility] Comment on above: Performed By: #### C HUGO DE JESUSA, NESTOR #### [facility] [address] [place] [address] Dr. Joe Shea Neutrophils/100 WBC (Bld) 76.3 % Critically high 43.0- 75.0 [facility] Comment on above: Performed By: #### C NEAL LIPA, NESTOR #### [facility] [address] [place] [address] Dr. Joe Shea Platelet mean volume (Bld) [Entitic vol] 10.8 fL Normal 9.5-13.5 [facility] Comment on above: Performed By: #### C HUGO DE JESUSA, NESTOR #### [facility] [address] [place] [address] Dr. Joe Shea PLT 283 103/ul Normal 150-450 [facility] Comment on above: Performed By: #### C NEAL LIPA, NESTOR #### [facility] [address] [place] [address] Dr. Joe Shea RBC 4.23 106/ul Normal 4.20-5.40 [facility] Comment on above: Performed By: #### C NEAL LIPA, NESTOR #### [facility] [address] [place] [address] Dr. Joe Shea WBC 12.5 103/ul Critically high 4.0-11.[address] [facility] Comment on above: Performed By: #### C NEAL NESTOR ALCOCER #### [facility] [address] [address] ABD/PELV W CONon [...] BREWER Date: 2022-10-28 18:31 Normal [facility] ER URINE PROFILEon 3 Bilirubin Ql (U) Negative Normal NEGATIVE [facility] Comment on above: Performed By: #### L BCL #### [facility] [address] [place] [address] Dr. Joe Shea Clarity (U) CLEAR Normal CLEAR [facility] Comment on above: Performed By: #### L BCL #### [facility] [address] [place] [address] Dr. Joe Shea Color (U) LT. YELLOW Normal YELLOW [facility] Comment on above: Performed By: #### L BCLH #### [facility] [address] [address] [address] Joe YUNG A micrscopic examination will be performed if indicated. Normal [facility] Comment on above: Performed By: #### L BCLH #### [facility] [address] [place] [address] Dr. Joe Shea Glucose Ql (U) Negative Normal NEGATIVE [facility] Comment on above: Performed By: #### L BCLH #### [facility] [address] [place] [address] Dr. Joe Shea Hemoglobin Ql (U) Negative Normal NEGATIVE [facility] Comment on above: Performed By: #### L BCLH #### [facility] [address] [place] [address] Dr. Joe Shea Ketones Ql (U) Negative Normal NEGATIVE [facility] Comment on above: Performed By: #### L BCLH #### [facility] [address] [place] [address] Dr. Joe Shea LEUKOCYTES TRACE Abnormal NEGATIVE [facility] Comment on above: Performed By: #### L BCLH #### [facility] [address] [place] [address] Dr. Joe Shea Nitrite Ql (U) Negative Normal NEGATIVE [facility] Comment on above: Performed By: #### L BCLH #### [facility] [address] [place] [address] Dr. oJe Shea pH (U) 8.0 [pH] Normal 5-9 [facility] Comment on above: Performed By: #### L BCLH #### [facility] [address] [address] [address] Joe Shea SPEC GRAVITY 1.015 Normal 1.005-<=1.02 5 [facility] Comment on above: Performed By: #### L BCLH #### [facility] [address] [place] [address] Dr. Joe Shea UA PROTEIN Negative Normal NEGATIVE/ TRACE [facility] Comment on above: Performed By: #### L BCL #### [facility] [address] [place] [address] Dr. Joe Shea UR MICRO IND INDICATED Normal [facility] Comment on above: Performed By: #### L BCL #### [facility] [address] [place] [address] Dr. Joe Shea Urobilinogen Qn (U) 2.0 {Pascual'U}/dL Abnormal 0.2 - 1. 0 [facility] Comment on above: Performed By: #### L BCL #### [facility] [address] [place] [address] Dr. Joe Shea LIPASEon 10-28-2022 Lipase [Catalytic activity/Vol] 93.0 U/L Normal 73.0-393.0 [facility] Comment on above: Performed By: #### C MP LIPA, NESTOR #### [facility] [address] [place] [address] Dr. Joe Shea URon 10-28-2022 , QUAL Negative Normal NEGATIVE [facility] [place] [facility] Comment on above: Performed By: #### L [facility] #### [facility] [address] [place] [address] Dr. Joe Shea PROF 14(COMP METB)on 023 Albumin [Mass/Vol] 4.1 g/dL Normal 3.4-5.0 [facility] Comment on above: Performed By: #### C MP, LIPA, NESTOR #### [facility] [address] [place] [address] Dr. Joe Shea Albumin/Globulin [Mass ratio] 1.2 {ratio} Normal [facility] Comment on above: Performed By: #### C MP, LIPA, NESTOR #### [facility] [address] [place] [address] Dr. Joe Shea ALP [Catalytic activity/Vol] 60 U/L Normal 46-116 [facility] Comment on above: Performed By: #### C MP, LIPA, NESTOR #### [facility] [address] [place] [address] Dr. Joe Shea ALT [Catalytic activity/Vol] 22 U/L Normal 14-59 [facility] Comment on above: Performed By: #### C CARLYN DE JESUS, NESTOR #### [facility] [address] [address] [address] Joe Shea Anion gap [Moles/Vol] 10.2 mmol/L Normal Th e [facility] Comment on above: Performed By: #### C CARLYN DE JESUS, NESTOR #### [facility] [address] [address] [address] Joe Shea AST [Catalytic activity/Vol] 14 U/L Critically low 15-37 [facility] Comment on above: Performed By: #### C CARLYN DE JESUS, NESTOR #### [facility] [address] [place] [address] Dr. Joe Shea Bilirubin [Mass/Vol] 0.5 mg/dL Normal 0.2-1.0 [facility] Comment on above: Performed By: #### C CARLYN DE JESUS, NESTOR #### [facility] [address] [place] [address] Dr. Joe Shea Calcium [Mass/Vol] 8.9 mg/dL Normal 8.5-10.1 [facility] Comment on above: Performed By: #### C CARLYN DE JESUS, NESTOR #### [facility] [address] [place] [address] Dr. Joe Shea Chloride [Moles/Vol] 103 mmol/L Normal 98-107 [facility] Comment on above: Performed By: #### C CARLYN DE JESUS, NESTOR #### [facility] [address] [place] [address] Dr. Joe Shea CO2 [Moles/Vol] 28.1 mmol/L Normal 21.0-32.[address] [facility] Comment on above: Performed By: #### C CARLYN DE JESUS, NESTOR #### [facility] [address] [place] [address] Dr. Joe Shea Creatinine [Mass/Vol] 0.77 mg/dL Normal 0.55-1.02 [facility] Comment on above: Performed By: #### C MP, LIPA, NESTOR #### [facility] [address] [address] [address] Joe Shea EGFR-AF ARGENTINE >60 Normal >=60 [facility] Comment on above: Performed By: #### C MP, LIPA, NESTOR #### [facility] [address] [address] [address] Joe Shea EGFR-NON AF ARGENTINE >60 Normal >=60 [facility] Comment on above: Performed By: #### C MP LIPA, NESTOR #### [facility] [address] [address] [address] Joe Shea Globulin (S) [Mass/Vol] 3.5 g/dL Normal [facility] Comment on above: Performed By: #### C NEAL LIPA, NESTOR #### [facility] [address] [address] [address] Joe Shea Glucose [Mass/Vol] 85 mg/dL Normal 74-106 [facility] Comment on above: Performed By: #### C NEAL LIPA, NESTOR #### [facility] [address] [address] [address] Joe Shea Potassium [Moles/Vol] 3.3 mmol/L Critically low 3.5-5.1 [facility] Comment on above: Performed By: #### C NEAL LIPA, NESTOR #### [facility] [address] [place] [address] Dr. Joe Shea Protein [Mass/Vol] 7.6 g/dL Normal 6.4-8.2 [facility] Comment on above: Performed By: #### C MP LIPA, NESTOR #### [facility] [address] [place] [address] Dr. Jeo Shea Sodium [Moles/Vol] 138 mmol/L Normal 136-145 [facility] Comment on above: Performed By: #### C MP LIPA, NESTOR #### [facility] [address] [address] [address] Joe Shea Urea nitrogen [Mass/Vol] 6.0 mg/dL Critically low 7.0-18. 0 [facility] Comment on above: Performed By: #### C CARLYN DE JESUS, NESTOR #### [facility] [address] [address] [address] Joe Shea Urea nitrogen/Creatinine [Mass ratio] 7.8 mg/mg Normal [facility] Comment on above: Performed By: #### C CARLYN DE JESUS, NESTOR #### [facility] [address] [place] [address] Dr. Joe Shea URINE MICROSCOPIC ONLYon BACTERIA NONE SEEN Normal NONE SEEN [facility] Comment on above: Performed By: #### L BCL #### [facility] [address] [place] [address] Dr. Joe Shea Bacteria identified Cx Nom (U) NOT INDICATED Normal [facility] Comment on above: Performed By: #### L BCL #### [facility] [address] [place] [address] Dr. Joe Shea CAST NONE SEEN Normal NONE SEEN [facility] Comment on above: Performed By: #### L BCL #### [facility] [address] [place] [address] Dr. Joe Shea Crystals LM Nom (Urine sed) NONE SEEN Normal NONE SEEN [facility] Comment on above: Performed By: #### L BCL #### [facility] [address] [place] [address] Dr. Joe Shea Epithelial cells LM Ql (Urine sed) FEW Abnormal NONE SEEN /RARE [facility] Comment on above: Performed By: #### L BCL #### [facility] [address] [place] [address] Dr. Joe Shea MUCOUS NONE SEEN Normal NONE SEEN [facility] Comment on above: Performed By: #### L BCL #### [facility] [address] [place] [address] Dr. Joe Shea RBC NONE SEEN Abnormal 0-2 [facility] Comment on above: Performed By: #### L BCLH #### [facility] [address] [place] [address] Dr. Joe Shea WBC 0-2 Abnormal NONE SEEN [facility] Comment on above: Performed By: #### L BCLH #### [facility] [address] [address] [address] Joe Shea LACTOFERRIN FECAL QUANTon Lactoferrin, Fecal, Quant. <1.00 Normal 0.00-7.24 [facility] Comment on above: Result Comment: Re [...] Performed By: #### D TRESA #### [facility] Laboratory [address] [place] [address] Dr. Joe Shea CALPROTECTIN, FECALon 2022 Calprotectin, Fecal 31 ug/g Normal 0-120 [facility] Comment on above: Result Comment: Conc entration Interpretation Follow-Up <16 - 50 ug/g Normal None >50 -120 ug/g Borderline Re-evaluate in 4-6 weeks >120 ug/g Abnormal Repeat as clinically indicated Performed By: #### C MP, CARLYN, NESTOR #### [facility] [address] [place] [address] Dr. Joe Shea BOWEL DISORDERS EVALUATION R ULE-OUT CASCon 09-25-2022 Antigliadin 8 units Normal 0-19 [facility] Comment on above: Result Comment: Nega tive 0 - 19 Weak Positive 20 - 30 Moderate to Strong Positive >30 . Performed By: #### C BC #### [facility] [address] [place] [address] Dr. Joe Shea Atypical pANCA Negative Normal Negative [facility] Comment on above: Performed By: #### C BC #### [facility] [address] [place] [address] Dr. Joe Shea Note: Casey continues Normal [facility] Comment on above: Performed By: #### C BC #### [facility] [address] [place] [address] Dr. Joe Shea Note: Comment Normal [facility] Comment on above: Result Comment: Sugg estive of irritable bowel syndrome (IBS). Careful evaluation of the patient's history, physical examination, and application of [place] III diagnostic criteria may help to rule in or rule out the diagnosis of IBS. Subsequent testing for Fecal Calprotectin (060359) may be recommended. If IBD is strongly suspected, subsequent testing with the Crohn's Disease Prognostic Profile (122652) that includes anti- glycan antibodies AMCA, ALCA, ACCA, and Zulema may aid in differential diagnosis. Performed By: #### C BC #### [facility] [address] [place] [address] Dr. Joe Shea Saccharomyces Cer. IgG <20.0 Normal 0.0-24.9 [facility] Comment on above: Result Comment: Nega tive <20.0 Equivocal 20.1 - 24.9 Positive >or= 25.0 Performed By: #### C BC #### [facility] [address] [place] [address] Dr. Joe Shea tTG/DGP SCR Negative Normal Negative [facility] Comment on above: Result Comment: Ef fective September 21, 2022 this profile will be made non-orderable due to non-availability of reagents for tTG/DGP Combo. No replacement number is available at this time. For further information, please contact your local [facility]am Trim Operator. Performed By: #### C BC #### [facility] [address] [place] [address] Dr. Joe Shea CBC AUTO DIFFon 09-19-2022 BASO # 0.1 103/ul Normal 0.0-0.1 [facility] Comment on above: Performed By: #### D TRESA #### [facility] [address] [place] [address] Dr. Joe Shea Basophils/100 WBC (Bld) 0.9 % Normal 0.2-2.0 [facility] Comment on above: Performed By: #### D TRESA #### [facility] [address] [place] [address] Dr. Joe Shea EO # 0.2 103/ul Normal 0.0-0.7 [facility] Comment on above: Performed By: #### Althea GTZ #### [facility] [address] [place] [address] Dr. Joe Shea Eosinophils/100 WBC (Bld) 2.4 % Normal 0.9-7.0 [facility] Comment on above: Performed By: #### Althea GTZ #### [facility] [address] [place] [address] Dr. Joe Shea Erythrocyte distribution width (RBC) [Ratio] 13.2 % Normal 11.0-15.0 [facility] Comment on above: Performed By: #### Althea GTZ #### [facility] [address] [place] [address] Dr. Joe Shea Hematocrit (Bld) [Volume fraction] 38.3 % Normal 36.0-48.0 [facility] Comment on above: Performed By: #### Althea GTZ #### [facility] [address] [place] [address] Dr. Joe Shea Hemoglobin (Bld) [Mass/Vol] 12.3 g/dL Normal 12.0-16.0 [facility] Comment on above: Performed By: #### Althea GTZ #### [facility] [address] [place] [address] Dr. Joe Shea IG # 0.02 10e3/ul Normal 0.00-0.03 [facility] Comment on above: Performed By: #### Althea GTZ #### [facility] [address] [place] [address] Dr. Joe Shea IG % 0.3 % Normal 0.0-0.5 [facility] Comment on above: Performed By: #### Althea GTZ #### [facility] [address] [place] [address] Dr. Joe Shea LYMPH # 1.7 103/ul Normal 1.2-3.8 [facility] Comment on above: Performed By: #### Althea GTZ #### [facility] [address] [place] [address] Dr. Joe Shea Lymphocytes/100 WBC (Bld) 24.6 % Normal 20.5-60.0 [facility] Comment on above: Performed By: #### D TRESA #### [facility] [address] [place] [address] Dr. Jeo Shea MANUAL DIFF REQ NO Normal [facility] [place] [facility] Comment on above: Performed By: #### Althea GTZ #### [facility] [address] [place] [address] Dr. Joe Shea MCH (RBC) [Entitic mass] 28.1 pg Normal 26.7-34.0 [facility] Comment on above: Performed By: #### Althea GTZ #### [facility] [address] [place] [address] Dr. Joe Shea MCHC (RBC) [Mass/Vol] 32.1 g/dL Normal 29.9-35.2 [facility] Comment on above: Performed By: #### Althea GTZ #### [facility] [address] [place] [address] Dr. Joe Shea MCV (RBC) [Entitic vol] 87.6 fL Normal 81.0-99.0 [facility] [place] Comment on above: Performed By: #### Althea GTZ #### [facility] [address] [place] [address] Dr. Joe Shea MONO # 0.4 103/ul Normal 0.3-0.8 [facility] Comment on above: Performed By: #### Althea GTZ #### [facility] [address] [place] [address] Dr. Joe Shea Monocytes/100 WBC (Bld) 5.5 % Normal 1.7-12.0 [facility] [place] Comment on above: Performed By: #### Althea GTZ #### [facility] [address] [place] [address] Dr. Joe Shea NEUT # 4.7 103/ul Normal 1.4-6.5 [facility] Comment on above: Performed By: #### Althea GTZ #### [facility] [address] [address] [address] Joe Shea Neutrophils/100 WBC (Bld) 66.3 % Normal 43.0-75.0 [facility] Comment on above: Performed By: #### Althea GTZ #### [facility] [address] [address] [address] Joe Shea Platelet mean volume (Bld) [Entitic vol] 11.4 fL Normal 9.5-13.5 [facility] Comment on above: Performed By: #### Althea GTZ #### [facility] [address] [address] [address] Joe Shea PLT 275 103/ul Normal 150-450 [facility] Comment on above: Performed By: #### Althea GTZ #### [facility] [address] [place] [address] Dr. Joe Shea RBC 4.37 106/ul Normal 4.20-5.40 [facility] Comment on above: Performed By: #### Althea GTZ #### [facility] [address] [place] [address] Dr. Joe Shea WBC 7.0 103/ul Normal 4.0-11.0 [facility] Comment on above: Performed By: #### Althea GTZ #### [facility] [address] [place] [address] Dr. Joe Shea PROF 14(COMP METB)on 023 Albumin [Mass/Vol] 4.4 g/dL Normal 3.4-5.0 [facility] Comment on above: Performed By: #### Courtney REDDY #### [facility] [address] [place] [address] Dr. Joe Shea Albumin/Globulin [Mass ratio] 1.4 {ratio} Normal [facility] Comment on above: Performed By: #### L DAIN #### [facility] [address] [address] [address] Joe Shea ALP [Catalytic activity/Vol] 51 U/L Normal 46-116 [facility] Comment on above: Performed By: #### L BCLH #### [facility] [address] [address] [address] Joe Shea ALT [Catalytic activity/Vol] 20 U/L Normal 14-59 [facility] Comment on above: Performed By: #### L BCLH #### [facility] [address] [address] [address] Joe Shea Anion gap [Moles/Vol] 11.7 mmol/L Normal Th [facility] Comment on above: Performed By: #### L BCLH #### [facility] [address] [address] [address] Joe Shea AST [Catalytic activity/Vol] 17 U/L Normal 15-37 [facility] Comment on above: Performed By: #### L BCLH #### [facility] [address] [place] [address] Dr. Joe Shea Bilirubin [Mass/Vol] 0.4 mg/dL Normal 0.2-1.0 [facility] Comment on above: Performed By: #### L BCLH #### [facility] [address] [address] [address] Joe Shea Calcium [Mass/Vol] 9.3 mg/dL Normal 8.5-10.1 [facility] Comment on above: Performed By: #### L BCLH #### [facility] [address] [address] [address] Joe Shea Chloride [Moles/Vol] 104 mmol/L Normal 98-107 [facility] Comment on above: Performed By: #### L BCLH #### [facility] [address] [address] [address] Joe Shea CO2 [Moles/Vol] 28.5 mmol/L Normal 21.0-32.0 [facility] [place] [facility] Comment on above: Performed By: #### L BCLH #### [facility] [address] [address] [address] Joe Shea Creatinine [Mass/Vol] 0.55 mg/dL Normal 0.55-1.02 [facility] Comment on above: Performed By: #### L BCLH #### [facility] [address] [address] [address] Joe Shea EGFR-AF ARGENTINE >60 Normal >=60 [facility] [place] [facility] Comment on above: Performed By: #### L BCLH #### [facility] [address] [address] [address] Joe Shea EGFR-NON AF ARGENTINE >60 Normal >=60 [facility] Comment on above: Performed By: #### L BCLH #### [facility] [address] [address] [address] Joe Shea Globulin (S) [Mass/Vol] 3.1 g/dL Normal T [facility] Comment on above: Performed By: #### L BCLH #### [facility] [address] [address] [address] Joe Shea Glucose [Mass/Vol] 90 mg/dL Normal 74-106 [facility] Comment on above: Performed By: #### L BCLH #### [facility] [address] [address] [address] Joe Shea Potassium [Moles/Vol] 4.2 mmol/L Normal 3.5-5.1 [facility] Comment on above: Performed By: #### L BCLH #### [facility] [address] [address] [address] Joe Shea Protein [Mass/Vol] 7.5 g/dL Normal 6.4-8.2 [facility] Comment on above: Performed By: #### L BCLH #### [facility] [address] [address] [address] Joe Shea Sodium [Moles/Vol] 140 mmol/L Normal 136-145 [facility] Comment on above: Performed By: #### L BCLH #### [facility] [address] [address] [address] Joe Shea Urea nitrogen [Mass/Vol] 6.0 mg/dL Critically low 7.0-18. 0 [facility] Comment on above: Performed By: #### L BCLH #### [facility] [address] [place] [address] Dr. Joe Shea Urea nitrogen/Creatinine [Mass ratio] 10.9 mg/mg Normal [facility] Comment on above: Performed By: #### L BARRY #### [facility] [address] [place], [place] [id number] Dr. Joe Shea PROTIMEon 09-19-2022 INR Coag (PPP) [Relative time] 1.08 {INR} Normal [facility] Comment on above: Performed By: #### L BARRY #### [facility] [address] [place] [address] Dr. Joe Shea INR GUIDELINES SEE BELOW Normal [facility] Comment on above: Result Comment: CHICA RED INR: 2.0 - 3.0 CONDITIONS NOT LISTED BELOW 2.5 - 3.5 FOR PROSTHETIC HEART VALVE REPLACEMENT 2.5 - 3.5 RECURRENT THROMBOSIS Performed By: #### L BARRY #### [facility] [address] [place] [address] Dr. Joe Shea PT Coag (PPP) [Time] 11.4 s Normal 9.0-11.6 [facility] Comment on above: Performed By: #### L BARRY #### [facility] [address] [place] [address] Dr. Joe Shea TSHon 09-19-2022 TSH 0.957 uIU/mL Normal 0.358-3.740 [facility] Comment on above: Performed By: #### L BARRY #### [facility] [address] [place] [address] Dr. Joe Shea Pre-Certification Formon Pre-Certification Form [id number]#1.00CD:127 Normal [facility] Consent for Procedure/Surger yon 07-23-2022 Consent for Procedure/Surgery [id number]#1.00CD:127 Normal [facility] Facesheeton 07-19-2022 Facesheet [id number] 71#1.00CD:127 Normal [facility] CBC AUTO DIFFon 07-06-2022 BASO # 0.1 103/ul Normal 0.0-0.1 [facility] Comment on above: Performed By: #### C MP, LIPA, NESTOR #### [facility] [address] [place] [address] Dr. Joe Shea Basophils/100 WBC (Bld) 0.8 % Normal 0.2-2.0 [facility] Comment on above: Performed By: #### C MP, LIPA, NESTOR #### [facility] [address] [place] [address] Dr. Joe Shea EO # 0.4 103/ul Normal 0.0-0.7 [facility] Comment on above: Performed By: #### C MP, LIPA, NESTOR #### [facility] [address] [place] [address] Dr. Joe Shea Eosinophils/100 WBC (Bld) 4.2 % Normal 0.9-7.0 [facility] Comment on above: Performed By: #### C MP, LIPA, NESTOR #### [facility] [address] [place] [address] Dr. Joe Shea Erythrocyte distribution width (RBC) [Ratio] 13.5 % Normal 11.0-15.0 [facility] Comment on above: Performed By: #### C MP, LIPA, NESTOR #### [facility] [address] [place] [address] Dr. Joe Shea Hematocrit (Bld) [Volume fraction] 36.8 % Normal 36.0-48.0 [facility] Comment on above: Performed By: #### C MP, LIPA, NESTOR #### [facility] [address] [place] [address] Dr. Joe Shea Hemoglobin (Bld) [Mass/Vol] 12.2 g/dL Normal 12.0-16.0 [facility] Comment on above: Performed By: #### C MP, LIPA, NESTOR #### [facility] [address] [place] [address] Dr. Joe Shea IG # 0.02 10e3/ul Normal 0.00-0.03 [facility] Comment on above: Performed By: #### C CARLYN DE JESUS AMY #### [facility] [address] [place] [address] Dr. Joe Shea IG % 0.2 % Normal 0.0-0.5 [facility] Comment on above: Performed By: #### C CARLYN DE JESUS AMY #### [facility] [address] [place] [address] Dr. Joe Shea LYMPH # 2.1 103/ul Normal 1.2-3.8 [facility] Comment on above: Performed By: #### C CARLYN DE JESUS AMY #### [facility] [address] [place] [address] Dr. Joe Shea Lymphocytes/100 WBC (Bld) 20.3 % Critically low 20.5-6 0.0 [facility] Comment on above: Performed By: #### C CARLYN DE JESUS AMY #### [facility] [address] [place] [address] Dr. Joe Shea MANUAL DIFF REQ NO Normal [facility] [place] [facility] Comment on above: Performed By: #### C CARLYN DE JESUS AMY #### [facility] [address] [place] [address] Dr. Joe Shea MCH (RBC) [Entitic mass] 28.6 pg Normal 26.7-34.0 [facility] Comment on above: Performed By: #### C CARLYN DE JESUS AMY #### [facility] [address] [place] [address] Dr. Joe Shea MCHC (RBC) [Mass/Vol] 33.2 g/dL Normal 29.9-35.2 [facility] Comment on above: Performed By: #### C CARLYN DE JESUS AMY #### [facility] [address] [place] [address] Dr. Joe Shea MCV (RBC) [Entitic vol] 86.4 fL Normal 81.0-99.0 [facility] Comment on above: Performed By: #### C CARLYN DE JESUS AMY #### [facility] [address] [place] [address] Dr. Joe Shea MONO # 0.6 103/ul Normal 0.3-0.8 [facility] Comment on above: Performed By: #### C MP, LIPA, NESTOR #### [facility] [address] [place] [address] Dr. Joe Shea Monocytes/100 WBC (Bld) 5.5 % Normal 1.7-12.0 [facility] Comment on above: Performed By: #### C MP, LIPA, NESTOR #### [facility] [address] [place] [address] Dr. Joe Shea NEUT # 7.2 103/ul Critically high 1.4-6.5 [facility] [place] [facility] Comment on above: Performed By: #### C MP, LIPA, NESTOR #### [facility] [address] [place] [address] Dr. Joe Shea Neutrophils/100 WBC (Bld) 69.0 % Normal 43.0-75.0 [facility] Comment on above: Performed By: #### C MP, LIPA, NESTOR #### [facility] [address] [place] [address] Dr. Joe Shea Platelet mean volume (Bld) [Entitic vol] 10.8 fL Normal 9.5-13.5 [facility] Comment on above: Performed By: #### C MP, LIPA, NESTOR #### [facility] [address] [place] [address] Dr. Joe Shea PLT 316 103/ul Normal 150-450 [facility] Comment on above: Performed By: #### C MP, LIPA, NESTOR #### [facility] [address] [place] [address] Dr. Joe Shea RBC 4.26 106/ul Normal 4.20-5.40 [facility] Comment on above: Performed By: #### C MP, LIPA, NESTOR #### [facility] [address] [place] [address] Dr. Joe Shea WBC 10.4 103/ul Normal 4.0-11.0 [facility] Comment on above: Performed By: #### C CARLYN DE JESUS AMY #### [facility] [address] [place] [address] Dr. Joe Shea PREG QUANT HCGon 07-06-2022 HCG QUANT <1 Normal [facility] Comment on above: Performed By: #### C CARLYN DE JESUS AMY #### [facility] [address] [place] [address] Dr. Joe Shea HCG RANGE SEE BELOW Normal [facility] Comment on above: Result Comment: 5-50 0.2-1 WEEK 50-500 1-2 WEEKS 100-5,000 2-3 WEEKS 500-10,000 3-4 WEEKS 1,000-50,000 4-5 WEEKS 10,000-100,000 5-6 WEEKS 15,000-200,000 6-8 WEEKS 10,000-100,000 2-3 MONTHS Performed By: #### C CARLYN DE JESUS AMY #### [facility] [address] [place] [address] Dr. Joe Shea HEPATITIS C ANTIBODYon 06-26 Hep C Virus Ab <0.1 Normal 0.0-0.9 [facility] Comment on above: Result Comment: Nega [...] Hepatitis C Virus (HCV) RNA, Diagnosis, MEGAN (852649) and Hepatitis C Virus (HCV) Antibody with reflex to Quantitative Real-time PCR ([id number]). Performed By: #### L BCL #### [facility] [address] [place] [address] Dr. Joe Shea Covid-19 PCR (CVDTB)on 05-31 SARS-CoV-2 (COVID-19) RNA MEGAN+probe Ql (Unsp spec) Not detected Normal NOT DETECTED [facility] Comment on above: Result Comment: This test is not yet approved or cleared by the [place] FDA. When there are no FDA-approved or cleared tests available, and other criteria are met, FDA can make tests available under an emergency access mechanism called an Emergency Use Authorization (EUA). The EUA for this test is supported by the Network Operations Project Manager of Health and Human Service's (HHS's) declaration [...] Performed By: #### C VDTBH #### [facility] [address] [address] [address] Joe Shea HEP B SURFACE ANTIGEN SCREEN on 06-12-2022 HBsAg Screen Negative Normal Negative [facility] Comment on above: Performed By: #### D HEASUL #### [facility] [address] [address] [address] Joe Shea HIV 1 AND 2 WITH REFLEXon HIV Screen 4th Generation wRfx Non-Reactive Normal Non Reactive [facility] Comment on above: Result Comment: HIV Negative HIV-1/HIV-2 antibodies and HIV-1 p24 antigen were NOT detected. There is no laboratory evidence of HIV infection. Performed By: #### C MP, LIPA, NESTOR #### [facility] [address] [address] [address] Joe Shea RPR QUANTon 06-12-2022 Rapid Plasma Reagin, Quant Non-Reactive Normal NonRea< 1:1 [facility] Comment on above: Result Comment: Plea Note: This test does not meet current guidelines for screening and diagnosis of syphilis. This test is intended for following treatment response in patients being treated for syphilis infection. To screen for syphilis infection, a reflex cascade that includes both RPR and a treponema-specific assay should be utilized, such as Treponema pallidum (Syphilis) Screening [facility] (049893) or Rapid Plasma Reagin (RPR) Test With Reflex to Quantitative RPR and Confirmatory Treponema pallidum Antibodies ([id number]). Performed By: #### C CARLYN DE JESUS AMY #### [facility] [address] [place] [address] [address] [address] Joe Shea Physician Referralon 022 Physician Referral [id number]#1.00CD:127 Normal [facility] US PELVIS AND TRANSVAGon US PELVIS [...] MEJIA Date: 2022-05-31 17:18 Normal [facility] AMYLASEon 05-23-2022 Amylase [Catalytic activity/Vol] 24 U/L Critically low 25-115 [facility] Comment on above: Performed By: #### C CARLYN DE JESUS AMY #### [facility] [address] [place], [place] [address] Dr. Joe Shea CBC AUTO DIFFon 05-23-2022 Eosinophils/100 WBC (Bld) 1.5 % Normal 0.9-7.0 [facility] Comment on above: Performed By: #### L BCLH #### [facility] [address] [address] [address] Joe Shea Erythrocyte distribution width (RBC) [Ratio] 13.5 % Normal 11.0-15.0 [facility] Comment on above: Performed By: #### L BCLH #### [facility] [address] [place] [address] Dr. Joe Shea Hematocrit (Bld) [Volume fraction] 33.0 % Critically low 36.0-48.0 [facility] Comment on above: Performed By: #### L BCLH #### [facility] [address] [address] [address] Joe Shea Hemoglobin (Bld) [Mass/Vol] 10.7 g/dL Critically low 12.0-16.0 [facility] Comment on above: Performed By: #### L BCLH #### [facility] [address] [place] [address] Dr. Joe Shea LYMPH # 1.2 103/ul Normal 1.2-3.8 [facility] Comment on above: Performed By: #### L BCLH #### [facility] [address] [address] [address] Joe Shea Lymphocytes/100 WBC (Bld) 20.2 % Critically low 20.5-6 0.0 [facility] Comment on above: Performed By: #### L BCLH #### [facility] [address] [place] [address] Dr. Joe Shea MCH (RBC) [Entitic mass] 28.0 pg Normal 26.7-34.0 [facility] Comment on above: Performed By: #### L BCLH #### [facility] [address] [address] [address] Joe Shea MCHC (RBC) [Mass/Vol] 32.4 g/dL Normal 29.9-35.2 [facility] Comment on above: Performed By: #### L BCLH #### [facility] [address] [address] [address] Joe Shea Monocytes/100 WBC (Bld) 7.9 % Normal 1.7-12.0 [facility] Comment on above: Performed By: #### L BCLH #### [facility] [address] [place] [address] Dr. Joe Shea Neutrophils/100 WBC (Bld) 69.9 % Normal 43.0-75.0 [facility] Comment on above: Performed By: #### L BCLH #### [facility] [address] [place] [address] Dr. Joe Shea Platelet mean volume (Bld) [Entitic vol] 10.6 fL Normal 9.5-13.5 [facility] Comment on above: Performed By: #### L BCLH #### [facility] [address] [place] [address] Dr. Joe Shea PLT 233 103/ul Normal 150-450 [facility] Comment on above: Performed By: #### L BCLH #### [facility] [address] [place] [address] Dr. Joe Shea RBC 3.82 106/ul Critically low 4.20-5.40 [facility] [place] [facility] Comment on above: Performed By: #### L BCLH #### [facility] [address] [place] [address] Dr. Joe Shea WBC 6.1 103/ul Normal 4.0-11.0 [facility] Comment on above: Performed By: #### L BCLH #### [facility] [address] [place] [address] Dr. Joe Shea BASO # 0.0 103/ul Normal 0.0-0.1 [facility] Comment on above: Performed By: #### L BCLH #### [facility] [address] [place] [address] Dr. Joe Shea Performed By: #### C CARLYN DE JESUS AMY #### [facility] [address] [place] [address] Dr. Joe Shea Basophils/100 WBC (Bld) 0.3 % Normal 0.2-2.0 [facility] [place] [facility] Comment on above: Performed By: #### L BCLH #### [facility] [address] [place] [address] Dr. Joe Shea Performed By: #### C MP, LIPA, NESTOR #### [facility] [address] [place] [address] Dr. Joe Shea EO # 0.1 103/ul Normal 0.0-0.7 [facility] Comment on above: Performed By: #### L BCLH #### [facility] [address] [place] [address] Dr. Joe Shea Performed By: #### C MP, LIPA, NESTOR #### [facility] [address] [place] [address] Dr. Joe Shea Eosinophils/100 WBC (Bld) 1.9 % Normal 0.9-7.0 [facility] Comment on above: Performed By: #### C MP, LIPA, NESTOR #### [facility] [address] [place] [address] Dr. Joe Shea Erythrocyte distribution width (RBC) [Ratio] 13.4 % Normal 11.0-15.0 [facility] Comment on above: Performed By: #### C MP, LIPA, NESTOR #### [facility] [address] [place] [address] Dr. Joe Shea Hematocrit (Bld) [Volume fraction] 32.3 % Critically low 36.0-48.0 [facility] Comment on above: Performed By: #### C MP, LIPA, NESTOR #### [facility] [address] [place] [address] Dr. Joe Shea Hemoglobin (Bld) [Mass/Vol] 10.6 g/dL Critically low 12.0-16.0 [facility] Comment on above: Performed By: #### C MP, LIPA, NESTOR #### [facility] [address] [place] [address] Dr. Joe Shea IG # 0.01 10e3/ul Normal 0.00-0.03 [facility] Comment on above: Performed By: #### L BCLH #### [facility] [address] [place] [address] Dr. Joe Shea Performed By: #### C MP, LIPA, NESTOR #### [facility] [address] [place] [address] Dr. Joe Shea IG % 0.2 % Normal 0.0-0.5 [facility] Comment on above: Performed By: #### L BCLH #### [facility] [address] [place] [address] Dr. Joe Shea Performed By: #### C MP, LIPA, NESTOR #### [facility] [address] [place] [address] Dr. Joe Shea LYMPH # 1.0 103/ul Critically low 1.2-3.8 [facility] Comment on above: Performed By: #### C MP, LIPA, NESTOR #### [facility] [address] [place] [address] Dr. Joe Shea Lymphocytes/100 WBC (Bld) 16.6 % Critically low 20.5-6 0.0 [facility] Comment on above: Performed By: #### C MP, LIPA, NESTOR #### [facility] [address] [place] [address] Dr. Joe Shea MANUAL DIFF REQ NO Normal [facility] [place] [facility] Comment on above: Performed By: #### L DAIN #### [facility] [address] [place] [address] Dr. Joe Shea Performed By: #### C MP, LIPA, NESTOR #### [facility] [address] [place] [address] Dr. Joe Shea MCH (RBC) [Entitic mass] 28.3 pg Normal 26.7-34.0 [facility] Comment on above: Performed By: #### C MP, LIPA, NESTOR #### [facility] [address] [place] [address] Dr. Joe Shea MCHC (RBC) [Mass/Vol] 32.8 g/dL Normal 29.9-35.2 [facility] Comment on above: Performed By: #### C MP, LIPA, NESTOR #### [facility] [address] [place] [address] Dr. Joe Shea MCV (RBC) [Entitic vol] 86.4 fL Normal 81.0-99.0 [facility] [place] [facility] Comment on above: Performed By: #### L BCL #### [facility] [address] [place] [address] Dr. Joe Shea Performed By: #### C MP, LIPA, NESTOR #### [facility] [address] [place] [address] Dr. Joe Shea MONO # 0.5 103/ul Normal 0.3-0.8 [facility] Comment on above: Performed By: #### L BCL #### [facility] [address] [place] [address] Dr. Joe Shea Performed By: #### C MP, LIPA, NESTOR #### [facility] [address] [place] [address] Dr. Joe Shea Monocytes/100 WBC (Bld) 9.1 % Normal 1.7-12.0 [facility] [place] [facility] Comment on above: Performed By: #### C MP, LIPA, NESTOR #### [facility] [address] [place] [address] Dr. Joe Shea NEUT # 4.3 103/ul Normal 1.4-6.5 [facility] Comment on above: Performed By: #### L BCL #### [facility] [address] [place] [address] Dr. Joe Shea Performed By: #### C MP, LIPA, NESTOR #### [facility] [address] [place] [address] Dr. Joe Shea Neutrophils/100 WBC (Bld) 71.9 % Normal 43.0-75.0 [facility] Comment on above: Performed By: #### C MP, LIPA, NESTOR #### [facility] [address] [place] [address] Dr. Joe Shea Platelet mean volume (Bld) [Entitic vol] 11.0 fL Normal 9.5-13.5 [facility] Comment on above: Performed By: #### C MP, LIPA, NESTOR #### [facility] [address] [place] [address] Dr. Joe Shea PLT 224 103/ul Normal 150-450 [facility] Comment on above: Performed By: #### C NEAL LIPA, NESTOR #### [facility] [address] [place] [address] Dr. Joe Shea RBC 3.74 106/ul Critically low 4.20-5.40 [facility] [place] [facility] Comment on above: Performed By: #### C MP LIPA, NESTOR #### [facility] [address] [place] [address] Dr. Joe Shea WBC 5.9 103/ul Normal 4.0-11.0 [facility] Comment on above: Performed By: #### C NEAL LIPA, NESTOR #### [facility] [address] [place] [address] Dr. Joe Shea ER URINE PROFILEon 2 Bilirubin Ql (U) Negative Normal NEGATIVE [facility] Comment on above: Performed By: #### L BCL #### [facility] [address] [place] [address] Dr. Joe Shea Clarity (U) CLEAR Normal CLEAR [facility] Comment on above: Performed By: #### L BCL #### [facility] [address] [place] [address] Dr. Joe Shea Color (U) LT. YELLOW Normal YELLOW [facility] Comment on above: Performed By: #### L BCL #### [facility] [address] [place] [address] Dr. Joe YUNG A micrscopic examination will be performed if indicated. Normal [facility] Comment on above: Performed By: #### L BCL #### [facility] [address] [place] [address] Dr. Joe Shea Glucose Ql (U) Negative Normal NEGATIVE [facility] Comment on above: Performed By: #### L BCLH #### [facility] [address] [place] [address] Dr. Joe Shea Hemoglobin Ql (U) Negative Normal NEGATIVE [facility] Comment on above: Performed By: #### L BCLH #### [facility] [address] [place] [address] Dr. Joe Shea Ketones Ql (U) Negative Normal NEGATIVE [facility] Comment on above: Performed By: #### L BCLH #### [facility] [address] [place] [address] Dr. Joe Shea LEUKOCYTES Negative Normal NEGATIVE [facility] Comment on above: Performed By: #### L BCLH #### [facility] [address] [place] [address] Dr. Joe Shea Nitrite Ql (U) Negative Normal NEGATIVE [facility] Comment on above: Performed By: #### L BCLH #### [facility] [address] [place] [address] Dr. Joe Shea pH (U) 5.5 [pH] Normal 5-9 [facility] Comment on above: Performed By: #### L BCLH #### [facility] [address] [place] [address] Dr. Joe Shea SPEC GRAVITY 1.020 Normal 1.005-<=1.[address] [place] [address] Comment on above: Performed By: #### L BCLH #### [facility] [address] [place] [address] Dr. Joe Shea UA PROTEIN Negative Normal NEGATIVE/ TRACE [facility] Comment on above: Performed By: #### L BCL #### [facility] [address] [place] [address] Dr. Joe Shea UR MICRO IND NOT INDICATED Normal [facility] [place] [facility] Comment on above: Performed By: #### L BCL #### [facility] [address] [place] [address] Dr. Joe Shea Urobilinogen Qn (U) 0.2 {Pascual'U}/dL Normal 0.2 - 1. 0 [facility] Comment on above: Performed By: #### L BCLH #### [facility] [address] [place] [address] Dr. Joe Shea LIPASEon 05-23-2022 Lipase [Catalytic activity/Vol] 63.0 U/L Critically low 73.0-393.0 [facility] Comment on above: Performed By: #### C MP, LIPA, NESTOR #### [facility] [address] [place] [address] Dr. Joe Shea URon 05-23-2022 , QUAL Negative Normal NEGATIVE [facility] [place] [facility] Comment on above: Performed By: #### C BC #### [facility] [address] [place] [address] Dr. Joe Shea PROF 14(COMP METB)on 022 Albumin [Mass/Vol] 3.7 g/dL Normal 3.4-5.0 [facility] Comment on above: Performed By: #### C MP, LIPA, NESTOR #### [facility] [address] [place] [address] Dr. Joe Shea Albumin/Globulin [Mass ratio] 1.4 {ratio} Normal [facility] Comment on above: Performed By: #### C MP, LIPA, NESTOR #### [facility] [address] [place] [address] Dr. Joe Shea ALP [Catalytic activity/Vol] 44 U/L Critically low 46-116 [facility] Comment on above: Performed By: #### C MP, LIPA, NESTOR #### [facility] [address] [place] [address] Dr. Joe Shea ALT [Catalytic activity/Vol] 24 U/L Normal 14-59 [facility] Comment on above: Performed By: #### C MP, LIPA, NESTOR #### [facility] [address] [place] [address] Dr. Joe Shea Anion gap [Moles/Vol] 9.1 mmol/L Normal [facility] Comment on above: Performed By: #### C MP, LIPA, NESTOR #### [facility] [address] [place] [address] Dr. Joe Shea AST [Catalytic activity/Vol] 18 U/L Normal 15-37 [facility] Comment on above: Performed By: #### C MP, LIPA, NESTOR #### [facility] [address] [place] [address] Dr. Joe Shea Bilirubin [Mass/Vol] 0.2 mg/dL Normal 0.2-1.0 [facility] Comment on above: Performed By: #### C CARLYN DE JESUS, NESTOR #### [facility] [address] [place] [address] Dr. Joe Shea Calcium [Mass/Vol] 8.3 mg/dL Critically low 8.5-10.1 [facility] Comment on above: Performed By: #### C CARLYN DE JESUS, NESTOR #### [facility] [address] [place] [address] Dr. Joe Shea Chloride [Moles/Vol] 105 mmol/L Normal 98-107 [facility] Comment on above: Performed By: #### C CARLYN DE JESUS, NESTOR #### [facility] [address] [place] [address] Dr. Joe Shea CO2 [Moles/Vol] 29.7 mmol/L Normal 21.0-32.0 [facility] Comment on above: Performed By: #### C CARLYN DE JESUS, NESTOR #### [facility] [address] [place] [address] Dr. Joe Shea Creatinine [Mass/Vol] 0.61 mg/dL Normal 0.55-1.02 [facility] Comment on above: Performed By: #### C CARLYN DE JESUS, NESTOR #### [facility] [address] [place] [address] Dr. Joe Shea EGFR-AF ARGENTINE >60 Normal >=60 [facility] Comment on above: Performed By: #### C CARLYN DE JESUS, NESTOR #### [facility] [address] [place] [address] Dr. Joe Shea EGFR-NON AF ARGENTINE >60 Normal >=60 [facility] Comment on above: Performed By: #### C CARLYN DE JESUS, NESTOR #### [facility] [address] [place] [address] Dr. Joe Shea Globulin (S) [Mass/Vol] 2.6 g/dL Normal T [facility] Comment on above: Performed By: #### C HUGO DE JESUSA, NESTOR #### [facility] [address] [address] [address] Joe Shea Glucose [Mass/Vol] 92 mg/dL Normal 74-106 [facility] Comment on above: Performed By: #### C CARLYN DE JESUS, NESTOR #### [facility] [address] [address] [address] Joe Shea Potassium [Moles/Vol] 3.8 mmol/L Normal 3.5-5.1 [facility] Comment on above: Performed By: #### C HUGO DE JESUSA, NESTOR #### [facility] [address] [address] [address] Joe Shea Protein [Mass/Vol] 6.3 g/dL Critically low 6.4-8.2 Th [facility] Comment on above: Performed By: #### C HUGO DE JESUSA, NESTOR #### [facility] [address] [place] [address] Dr. Joe Shea Sodium [Moles/Vol] 140 mmol/L Normal 136-145 [facility] Comment on above: Performed By: #### C HUGO DE JESUSA, NESTOR #### [facility] [address] [address] [address] Joe Shea Urea nitrogen [Mass/Vol] 9.0 mg/dL Normal 7.0-18.0 [facility] Comment on above: Performed By: #### C NEAL LIPA, NESTOR #### [facility] [address] [place] [address] Dr. Joe Shea Urea nitrogen/Creatinine [Mass ratio] 14.8 mg/mg Normal [facility] Comment on above: Performed By: #### C NEAL LIPA, NESTOR #### [facility] [address] [place] [address] Dr. Joe Shea US SINGLE QUAD RT [...] by: SHIRLEY PATEL Date: 2022-05-23 08:29 Normal [facility] AMYLASEon 05-22-2022 Amylase [Catalytic activity/Vol] 50 U/L Normal 25-115 [facility] Comment on above: Performed By: #### A MY, CMP, LIPA #### [facility] [address] [address] [address] Joe Shea CBC AUTO DIFFon 05-22-2022 BASO # 0.1 103/ul Normal 0.0-0.1 [facility] Comment on above: Performed By: #### C MP, LIPA, NESTOR #### [facility] [address] [address] [address] Joe Shea Basophils/100 WBC (Bld) 0.3 % Normal 0.2-2.0 [facility] [place] Comment on above: Performed By: #### C MP, LIPA, NESTOR #### [facility] [address] [address] [address] Joe Shea EO # 0.0 103/ul Normal 0.0-0.7 [facility] Comment on above: Performed By: #### C MP, LIPA, NESTOR #### [facility] [address] [address] [address] Joe Shea Eosinophils/100 WBC (Bld) 0.2 % Critically low 0.9-7. 0 [facility] Comment on above: Performed By: #### C MP, LIPA, NESTOR #### [facility] [address] [address] [address] Joe Shea Erythrocyte distribution width (RBC) [Ratio] 13.3 % Normal 11.0-15.0 [facility] Comment on above: Performed By: #### C HUGO DE JESUSA, NESTOR #### [facility] [address] [place] [address] Dr. Joe Shea Hematocrit (Bld) [Volume fraction] 39.0 % Normal 36.0-48.0 [facility] Comment on above: Performed By: #### C HUGO DE JESUSA, NESTOR #### [facility] [address] [place] [address] Dr. Joe Shea Hemoglobin (Bld) [Mass/Vol] 12.7 g/dL Normal 12.0-16.0 [facility] Comment on above: Performed By: #### C CARLYN DE JESUS, NESTOR #### [facility] [address] [place] [address] Dr. Joe Shea IG # 0.05 10e3/ul Critically high 0.00-0.03 [facility] Comment on above: Performed By: #### C NEAL LIPA, NESTOR #### [facility] [address] [place] [address] Dr. Joe Shea IG % 0.3 % Normal 0.0-0.5 [facility] Comment on above: Performed By: #### C CARLYN DE JESUS, NESTOR #### [facility] [address] [place] [address] Dr. Joe Shea LYMPH # 0.8 103/ul Critically low 1.2-3.8 [facility] Comment on above: Performed By: #### C NEAL LIPA, NESTOR #### [facility] [address] [place] [address] Dr. Joe Shea Lymphocytes/100 WBC (Bld) 4.4 % Critically low 20.5-6 0.0 [facility] Comment on above: Performed By: #### C HUGO DE JESUSA, NESTOR #### [facility] [address] [place] [address] Dr. Joe Shea MANUAL DIFF REQ NO Normal [facility] [place] [facility] Comment on above: Performed By: #### C NEAL LIPA, NESTOR #### [facility] [address] [place], [place] [id number] Dr. Joe Shea MCH (RBC) [Entitic mass] 28.1 pg Normal 26.7-34.0 [facility] Comment on above: Performed By: #### C MP, LIPA, NESTOR #### [facility] [address] [place] [address] Dr. Joe Shea MCHC (RBC) [Mass/Vol] 32.6 g/dL Normal 29.9-35.2 [facility] Comment on above: Performed By: #### C MP, LIPA, NESTOR #### [facility] [address] [place] [address] Dr. Joe Shea MCV (RBC) [Entitic vol] 86.3 fL Normal 81.0-99.0 [facility] Comment on above: Performed By: #### C MP, LIPA, NESTOR #### [facility] [address] [place] [address] Dr. Joe Shea MONO # 0.4 103/ul Normal 0.3-0.8 [facility] Comment on above: Performed By: #### C MP, LIPA, NESTOR #### [facility] [address] [place] [address] Dr. Joe Shea Monocytes/100 WBC (Bld) 2.2 % Normal 1.7-12.0 [facility] Comment on above: Performed By: #### C MP, LIPA, NESTOR #### [facility] [address] [place] [address] Dr. Joe Shea NEUT # 16.7 103/ul Critically high 1.4-6.5 [facility] Comment on above: Performed By: #### C MP, LIPA, NESTOR #### [facility] [address] [place] [address] Dr. Joe Shea Neutrophils/100 WBC (Bld) 92.6 % Critically high 43.0- 75.0 [facility] Comment on above: Performed By: #### C MP, LIPA, NESTOR #### [facility] [address] [place] [address] Dr. Joe Shea Platelet mean volume (Bld) [Entitic vol] 11.0 fL Normal 9.5-13.5 [facility] Comment on above: Performed By: #### C CARLYN DE JESUS NESTOR #### [facility] [address] [place] [address] Dr. Joe Shea PLT 323 103/ul Normal 150-450 [facility] Comment on above: Performed By: #### C CARLYN DE JESUS, NESTOR #### [facility] [address] [place] [address] Dr. Joe Shea RBC 4.52 106/ul Normal 4.20-5.40 [facility] Comment on above: Performed By: #### C CARLYN DE JESUS, NESTOR #### [facility] [address] [place] [address] Dr. Joe Shea WBC 18.0 103/ul Critically high 4.0-11.0 [facility] Comment on above: Performed By: #### C CARLYN DE JESUS NESTOR #### [facility] [address] [place] [address] Dr. Joe Shea ER URINE PROFILEon 2 Bilirubin Ql (U) Negative Normal NEGATIVE [facility] Comment on above: Performed By: #### Althea GTZ #### [facility] [address] [place] [address] Dr. Joe Shea Clarity (U) CLEAR Normal CLEAR [facility] Comment on above: Performed By: #### Althea GTZ #### [facility] [address] [place] [address] Dr. Joe Shea Color (U) YELLOW Normal YELLOW [facility] Comment on above: Performed By: #### Althea GTZ #### [facility] [address] [place] [address] Dr. Joe Shea ERUAHAlthea A micrscopic examination will be performed if indicated. Normal [facility] Comment on above: Performed By: #### Althea GTZ #### [facility] [address] [place] [address] Dr. Joe Shea Glucose Ql (U) Negative Normal NEGATIVE [facility] Comment on above: Performed By: #### Althea GTZ #### [facility] [address] [address] [address] Joe Shea Hemoglobin Ql (U) Negative Normal NEGATIVE [facility] Comment on above: Performed By: #### Althea GTZ #### [facility] [address] [place] [address] Dr. Joe Shea Ketones Ql (U) 15 mg/dl Abnormal NEGATIVE [facility] Comment on above: Performed By: #### Althea GTZ #### [facility] [address] [place] [address] Dr. Joe Shea LEUKOCYTES Negative Normal NEGATIVE [facility] Comment on above: Performed By: #### Althea GTZ #### [facility] [address] [place] [address] Dr. Joe Shea Nitrite Ql (U) Negative Normal NEGATIVE [facility] Comment on above: Performed By: #### Althea GTZ #### [facility] [address] [place] [address] Dr. Joe Shea pH (U) 5.5 [pH] Normal 5-9 [facility] Comment on above: Performed By: #### Althea GTZ #### [facility] [address] [place] [address] Dr. Joe Shea SPEC GRAVITY >=1.030 Abnormal 1.005-<=1.02 5 [facility] Comment on above: Performed By: #### Althea GTZ #### [facility] [address] [place] [address] Dr. Joe Shea UA PROTEIN Negative Normal NEGATIVE/ TRACE [facility] Comment on above: Performed By: #### Althea GTZ #### [facility] [address] [place] [address] Dr. Joe Shea UR MICRO IND NOT INDICATED Normal [facility] Comment on above: Performed By: #### Althea GTZ #### [facility] [address] [place] [address] Dr. Joe Shea Urobilinogen Qn (U) 1.0 {Pascual'U}/dL Normal 0.2 - 1. 0 [facility] [facility] Comment on above: Performed By: #### D TRESA #### [facility] [address] [address] [address] Joe Shea LACTATE/LACTIC ACIDon 2021 Lactate [Moles/Vol] 1.0 mmol/L Normal 0.4-1.9 [facility] Comment on above: Performed By: #### C BC #### [facility] [address] [address] [address] Joe Shea LIPASEon 05-22-2022 Lipase [Catalytic activity/Vol] 205.0 U/L Normal 73.0-393.0 [facility] Comment on above: Performed By: #### A MY, CMP, LIPA #### [facility] [id number] Joe Shea MRI BRAIN WO CONon [...] LO Date: 2022-05-22 16:17 Normal [facility] URon 05-22-2022 , QUAL Negative Normal NEGATIVE [facility] Comment on above: Performed By: #### D TRESA #### [facility] [address] [address] [address] Joe Shea PROF 14(COMP METB)on 022 Albumin [Mass/Vol] 4.5 g/dL Normal 3.4-5.0 [facility] Comment on above: Performed By: #### Althea GTZ #### [facility] [address] [address] [address] Joe Shea Albumin/Globulin [Mass ratio] 1.4 {ratio} Normal [facility] Comment on above: Performed By: #### Althea GTZ #### [facility] [address] [address] [address] Joe Shea ALP [Catalytic activity/Vol] 60 U/L Normal 46-116 [facility] Comment on above: Performed By: #### Althea GTZ #### [facility] [address] [address] [address] Joe Shea ALT [Catalytic activity/Vol] 17 U/L Normal 14-59 [facility] Comment on above: Performed By: #### Althea GTZ #### [facility] [address] [address] [address] Joe Shea Anion gap [Moles/Vol] 10.9 mmol/L Normal [facility] Comment on above: Performed By: #### Althea GTZ #### [facility] [address] [address] [address] Joe Shea AST [Catalytic activity/Vol] 19 U/L Normal 15-37 [facility] Comment on above: Performed By: #### Althea GTZ #### [facility] [address] [address] [address] Joe Shea Bilirubin [Mass/Vol] 0.8 mg/dL Normal 0.2-1.0 [facility] Comment on above: Performed By: #### Althea GTZ #### [facility] [address] [address] [address] Joe Shea Calcium [Mass/Vol] 9.0 mg/dL Normal 8.5-10.1 [facility] Comment on above: Performed By: #### Althea GTZ #### [facility] [address] [address] [address] Joe Shea Chloride [Moles/Vol] 102 mmol/L Normal 98-107 [facility] Comment on above: Performed By: #### Althea GTZ #### [facility] [address] [address] [address] Joe Shea CO2 [Moles/Vol] 28.7 mmol/L Normal 21.0-32.0 [facility] [place] [facility] Comment on above: Performed By: #### Althea GTZ #### [facility] [address] [address] [address] Joe Shea Creatinine [Mass/Vol] 0.73 mg/dL Normal 0.55-1.02 [facility] Comment on above: Performed By: #### Althea GTZ #### [facility] [address] [address] [address] Joe Shea EGFR-AF ARGENTINE >60 Normal >=60 [facility] [place] [facility] Comment on above: Performed By: #### Althea GTZ #### [facility] [address] [address] [address] Joe Shea EGFR-NON AF ARGENTINE >60 Normal >=60 [facility] Comment on above: Performed By: #### Althea GTZ #### [facility] [address] [address] [address] Joe Shea Globulin (S) [Mass/Vol] 3.2 g/dL Normal [facility] Comment on above: Performed By: #### Althea GTZ #### [facility] [address] [address] [address] Joe Shea Glucose [Mass/Vol] 113 mg/dL Critically high 74-106 [facility] Comment on above: Performed By: #### Althea GTZ #### [facility] [address] [address] [address] Joe Shea Potassium [Moles/Vol] 3.6 mmol/L Normal 3.5-5.1 [facility] Comment on above: Performed By: #### Althea GTZ #### [facility] [address] [address] [address] Joe Shea Protein [Mass/Vol] 7.7 g/dL Normal 6.4-8.2 [facility] Comment on above: Performed By: #### Althea GTZ #### [facility] [address], [place] [address] Dr. Joe Shea Sodium [Moles/Vol] 138 mmol/L Normal 136-145 [facility] Comment on above: Performed By: #### Althea GTZ #### [facility] [address], [place] [address] Dr. Joe Shea Urea nitrogen [Mass/Vol] 9.0 mg/dL Normal 7.0-18.0 [facility] Comment on above: Performed By: #### Althea GTZ #### [facility] [address], [place] [address] Dr. Joe Shea Urea nitrogen/Creatinine [Mass ratio] 12.3 mg/mg Normal [facility] Comment on above: Performed By: #### Althea GTZ #### [facility] [address], [place] [address] Dr. Joe Shea XR CHEST 2 Von [...] by: ANA COTE Date: 2022-05-22 02:56 Normal [facility] PROGESTERONEon 05-08-2022 Progesterone 18.1 ng/mL Normal [facility] Comment on above: Result Comment: Foll icular phase 0.1 - 0.9 Luteal phase 1.8 - 23.9 Ovulation phase 0.1 - 12.0 First trimester 11.0 - 44.3 Second trimester 25.4 - 83.3 Third trimester 58.7 - 214.0 Postmenopausal 0.0 - 0.1 Performed By: #### C BC #### [facility] [address], [place] [address] Dr. Joe Shea DHEA SERUMon 04-12-2022 Dehydroepiandrosterone (DHEA) 577 ng/dL Normal 31-701 [facility] Comment on above: Result Comment: Age [...] 31 - 701 Performed By: #### Darius BC #### [facility] [address] [place] [address] Dr. Joe Shea PROGESTERONEon 04-10-2022 Progesterone 16.0 ng/mL Normal [facility] Comment on above: Result Comment: Foll icular phase 0.1 - 0.9 Luteal phase 1.8 - 23.9 Ovulation phase 0.1 - 12.0 First trimester 11.0 - 44.3 Second trimester 25.4 - 83.3 Third trimester 58.7 - 214.0 Postmenopausal 0.0 - 0.1 Performed By: #### Althea GTZ #### [facility] [address] [place] [address] Dr. Joe Shea DHEA-SULFATEon 04-06-2022 DHEA-Sulfate 241.0 ug/dL Normal 110.0-431.7 [facility] Comment on above: Performed By: #### Althea GTZ #### [facility] [address] [place] [address] Dr. Joe Shea FSHon 04-06-2022 FSH 6.6 mIU/mL Normal [facility] Comment on above: Result Comment: Adul t Female: Follicular phase 3.5 - 12.5 Ovulation phase 4.7 - 21.5 Luteal phase 1.7 - 7.7 Postmenopausal 25.8 - 134.8 Performed By: #### Althea GTZ #### [facility] [address] [place] [address] Dr. Joe Shea LUTEINIZING HORMONE (LH)on 1 LH 19.8 mIU/mL Normal [facility] Comment on above: Result Comment: Adul t Female: Follicular phase 2.4 - 12.6 Ovulation phase 14.0 - 95.6 Luteal phase 1.0 - 11.4 Postmenopausal 7.7 - 58.5 Performed By: #### L BCLH #### [facility] [address] [place] [address] Dr. Joe hSea CBC AUTO DIFFon 04-05-2022 BASO # 0.1 103/ul Normal 0.0-0.1 [facility] Comment on above: Performed By: #### C BC #### [facility] [address] [place] [address] Dr. Joe Shea Basophils/100 WBC (Bld) 0.9 % Normal 0.2-2.0 [facility] Comment on above: Performed By: #### C BC #### [facility] [address] [place] [address] Dr. Jeo Shea EO # 0.2 103/ul Normal 0.0-0.7 [facility] Comment on above: Performed By: #### C BC #### [facility] [address] [place] [address] Dr. Joe Shea Eosinophils/100 WBC (Bld) 2.6 % Normal 0.9-7.0 [facility] Comment on above: Performed By: #### C BC #### [facility] [address] [place] [address] Dr. Joe Shea Erythrocyte distribution width (RBC) [Ratio] 13.1 % Normal 11.0-15.0 [facility] Comment on above: Performed By: #### C BC #### [facility] [address] [place] [address] Dr. Joe Shea Hematocrit (Bld) [Volume fraction] 38.2 % Normal 36.0-48.0 [facility] Comment on above: Performed By: #### C BC #### [facility] [address] [place] [address] Dr. Joe Shea Hemoglobin (Bld) [Mass/Vol] 12.3 g/dL Normal 12.0-16.0 [facility] Comment on above: Performed By: #### C BC #### [facility] [address] [place] [address] Dr. Joe Shea IG # 0.01 10e3/ul Normal 0.00-0.03 [facility] Comment on above: Performed By: #### C BC #### [facility] [address] [place] [address] Dr. Joe Shea IG % 0.2 % Normal 0.0-0.5 [facility] Comment on above: Performed By: #### C BC #### [facility] [address] [place] [address] Dr. Joe Shea LYMPH # 1.7 103/ul Normal 1.2-3.8 [facility] Comment on above: Performed By: #### C BC #### [facility] [address] [place] [address] Dr. Joe Shea Lymphocytes/100 WBC (Bld) 29.2 % Normal 20.5-60.0 [facility] Comment on above: Performed By: #### C BC #### [facility] [address] [place] [address] Dr. Joe Shea MANUAL DIFF REQ NO Normal [facility] [place] [facility] Comment on above: Performed By: #### C BC #### [facility] [address] [place] [address] Dr. Joe Shea MCH (RBC) [Entitic mass] 28.4 pg Normal 26.7-34.0 [facility] Comment on above: Performed By: #### C BC #### [facility] [address] [place] [address] Dr. Joe Shea MCHC (RBC) [Mass/Vol] 32.2 g/dL Normal 29.9-35.2 [facility] Comment on above: Performed By: #### C BC #### [facility] [address] [place] [address] Dr. Joe Shea MCV (RBC) [Entitic vol] 88.2 fL Normal 81.0-99.0 [facility] Comment on above: Performed By: #### C BC #### [facility] [address] [place] [address] Dr. Joe Shea MONO # 0.5 103/ul Normal 0.3-0.8 [facility] Comment on above: Performed By: #### C BC #### [facility] [address] [place] [address] Dr. Joe Shea Monocytes/100 WBC (Bld) 8.2 % Normal 1.7-12.0 [facility] Comment on above: Performed By: #### C BC #### [facility] [address] [place] [address] Dr. Joe Shea NEUT # 3.4 103/ul Normal 1.4-6.5 [facility] Comment on above: Performed By: #### C BC #### [facility] [address] [place] [address] Dr. Joe Shea Neutrophils/100 WBC (Bld) 58.9 % Normal 43.0-75.0 [facility] Comment on above: Performed By: #### C BC #### [facility] [address] [place] [address] Dr. Joe Shea Platelet mean volume (Bld) [Entitic vol] 11.5 fL Normal 9.5-13.5 [facility] Comment on above: Performed By: #### C BC #### [facility] [address] [place] [address] Dr. Joe Shea PLT 233 103/ul Normal 150-450 [facility] Comment on above: Performed By: #### C BC #### [facility] [address] [place] [address] Dr. Joe Shea RBC 4.33 106/ul Normal 4.20-5.40 [facility] Comment on above: Performed By: #### C BC #### [facility] [address] [place] [address] Dr. Joe Shea WBC 5.8 103/ul Normal 4.0-11.0 [facility] Comment on above: Performed By: #### C BC #### [facility] [address] [place] [address] Dr. Joe Shea GLYCOHEMOGLOBIN A1Con 2021 ADA RECOMMENDATION SEE BELOW Normal [facility] Comment on above: Result Comment: ADA RECOMMENDED LIMIT 4.0 - 6.0 ADA THERAPEUTIC TARGET < 7.0 ACTION SUGGESTED > 7.0 Performed By: #### C CARLYN DE JESUS AMY #### [facility] [address] [place] [address] Dr. Joe Shea Glucose [Mass/Vol] 105 mg/dL Normal [facility] Comment on above: Performed By: #### C CARLYN DE JESUS AMY #### [facility] [address] [place] [address] Dr. Joe Shea HbA1c (Bld) [Mass fraction] 5.3 % Normal 4.5-6.2 [facility] Comment on above: Performed By: #### C CARLYN DE JESUS AMY #### [facility] [address] [place] [address] Dr. Joe Shea TSHon 04-05-2022 TSH 0.609 uIU/mL Normal 0.358-3.740 [facility] Comment on above: Performed By: #### C BC #### [facility] [address] [place] [address] Dr. Joe Shea US PELVIS AND TRANSVAGon [...] by: ANGIE MEJIA Date: 2022-04-05 17:23 Normal [facility] AMYLASEon 03-10-2022 Amylase [Catalytic activity/Vol] 64 U/L Normal 25-115 [facility] Comment on above: Performed By: #### C BC #### [facility] [address] [place] [address] Dr. Joe Shea CBC AUTO DIFFon 03-10-2022 BASO # 0.1 103/ul Normal 0.0-0.1 [facility] Comment on above: Performed By: #### C BC #### [facility] [address] [address] [address] Joe Shea Basophils/100 WBC (Bld) 0.6 % Normal 0.2-2.0 [facility] Comment on above: Performed By: #### C BC #### [facility] [address] [address] [address] Joe Shea EO # 0.3 103/ul Normal 0.0-0.7 [facility] Comment on above: Performed By: #### C BC #### [facility] [address] [place] [address] Dr. Joe Shea Eosinophils/100 WBC (Bld) 1.7 % Normal 0.9-7.0 [facility] Comment on above: Performed By: #### C BC #### [facility] [address] [place] [address] Dr. Joe Shea Erythrocyte distribution width (RBC) [Ratio] 13.1 % Normal 11.0-15.0 [facility] Comment on above: Performed By: #### C BC #### [facility] [address] [place] [address] Dr. Joe Shea Hematocrit (Bld) [Volume fraction] 37.9 % Normal 36.0-48.0 [facility] Comment on above: Performed By: #### C BC #### [facility] [address] [place] [address] Dr. Joe Shea Hemoglobin (Bld) [Mass/Vol] 12.2 g/dL Normal 12.0-16.0 [facility] Comment on above: Performed By: #### C BC #### [facility] [address] [place] [address] Dr. Joe Shea IG # 0.05 10e3/ul Critically high 0.00-0.03 [facility] Comment on above: Performed By: #### C BC #### [facility] [address] [place] [address] Dr. Joe Shea IG % 0.3 % Normal 0.0-0.5 [facility] Comment on above: Performed By: #### C BC #### [facility] [address] [address] [address] Joe Shea LYMPH # 4.7 103/ul Critically high 1.2-3.8 [facility] [place] [facility] Comment on above: Performed By: #### C BC #### [facility] [address] [address] [address] Joe Shea Lymphocytes/100 WBC (Bld) 28.3 % Normal 20.5-60.0 [facility] Comment on above: Performed By: #### C BC #### [facility] [address] [place] [address] Dr. Joe Shea MANUAL DIFF REQ NO Normal [facility] [place] Comment on above: Performed By: #### C BC #### [facility] [address] [place] [address] Dr. Joe Shea MCH (RBC) [Entitic mass] 27.9 pg Normal 26.7-34.0 [facility] Comment on above: Performed By: #### C BC #### [facility] [address] [place] [address] Dr. Joe Shea MCHC (RBC) [Mass/Vol] 32.2 g/dL Normal 29.9-35.2 [facility] Comment on above: Performed By: #### C BC #### [facility] [address] [place] [address] Dr. Joe Shea MCV (RBC) [Entitic vol] 86.5 fL Normal 81.0-99.0 [facility] Comment on above: Performed By: #### C BC #### [facility] [address] [address] [address] Joe Shea MONO # 0.9 103/ul Critically high 0.3-0.8 [facility] [place] Comment on above: Performed By: #### C BC #### [facility] [address] [place] [address] Dr. Joe Shea Monocytes/100 WBC (Bld) 5.5 % Normal 1.7-12.0 [facility] Comment on above: Performed By: #### C BC #### [facility] [address] [address] [address] Joe Shea NEUT # 10.5 103/ul Critically high 1.4-6.5 [facility] [place] [facility] Comment on above: Performed By: #### C BC #### [facility] [address] [address] [address] Joe Shea Neutrophils/100 WBC (Bld) 63.6 % Normal 43.0-75.0 [facility] Comment on above: Performed By: #### C BC #### [facility] [address] [place] [address] Dr. Joe Shea Platelet mean volume (Bld) [Entitic vol] 11.1 fL Normal 9.5-13.5 [facility] Comment on above: Performed By: #### C BC #### [facility] [address] [place] [address] Dr. Joe Shea PLT 428 103/ul Normal 150-450 [facility] Comment on above: Performed By: #### C BC #### [facility] [address] [place] [address] Dr. Joe Shea RBC 4.38 106/ul Normal 4.20-5.40 [facility] Comment on above: Performed By: #### C BC #### [facility] [address] [place] [address] Dr. Joe Shea WBC 16.6 103/ul Critically high 4.0-11.0 [facility] [place] [facility] Comment on above: Performed By: #### C BC #### [facility] [address] [place] [address] ABD/PELV W CONon [...] by: MURALI STRANGE Date: 2022-03-10 16:59 Normal [facility] LIPASEon 03-10-2022 Lipase [Catalytic activity/Vol] 81.0 U/L Normal 73.0-393.0 [facility] Comment on above: Performed By: #### C BC #### [facility] [address] [place] [address] Dr. Joe Shea LIVER PROFILEon 03-10-2022 Albumin [Mass/Vol] 4.2 g/dL Normal 3.4-5.0 [facility] Comment on above: Performed By: #### C BC #### [facility] [address] [place] [address] Dr. Joe Shea Albumin/Globulin [Mass ratio] 1.4 {ratio} Normal [facility] Comment on above: Performed By: #### C BC #### [facility] [address] [place] [address] Dr. Joe Shea ALP [Catalytic activity/Vol] 50 U/L Normal 46-116 [facility] Comment on above: Performed By: #### C BC #### [facility] [address] [place] [address] Dr. Joe Shea ALT [Catalytic activity/Vol] 14 U/L Normal 14-59 [facility] Comment on above: Performed By: #### C BC #### [facility] [address] [place] [address] Dr. Joe Shea AST [Catalytic activity/Vol] 13 U/L Critically low 15-37 [facility] Comment on above: Performed By: #### C BC #### [facility] [address] [place] [address] Dr. Joe ESTRELLAI, CONJUGATED 0.1 mg/dL Normal 0.0-0.2 [facility] [place] [facility] Comment on above: Performed By: #### C BC #### [facility] [address] [place] [address] Dr. Joe Shea Bilirubin [Mass/Vol] 0.3 mg/dL Normal 0.2-1.0 [facility] Comment on above: Performed By: #### C BC #### [facility] [address] [place] [address] Dr. Joe Shea Globulin (S) [Mass/Vol] 3.1 g/dL Normal [facility] Comment on above: Performed By: #### C BC #### [facility] [address] [place] [address] Dr. Joe Shea Protein [Mass/Vol] 7.3 g/dL Normal 6.4-8.2 [facility] Comment on above: Performed By: #### C BC #### [facility] [address] [place] [address] Dr. Joe Shea PREG HCG QUALon 03-10-2022 , QUAL Negative Normal NEGATIVE [facility] Comment on above: Performed By: #### L BCLH #### [facility] [address] [place] [address] Dr. Joe Shea PROF CHEM 8 (BAS METB)on Anion gap [Moles/Vol] 17.6 mmol/L Normal [facility] Comment on above: Performed By: #### C MP, LIPA, NESTOR #### [facility] [address] [place] [address] Dr. Joe Shea Calcium [Mass/Vol] 9.0 mg/dL Normal 8.5-10.1 [facility] Comment on above: Performed By: #### C MP, LIPA, NESTOR #### [facility] [address] [place], [place] [id number] Dr. Joe Shea Chloride [Moles/Vol] 102 mmol/L Normal 98-107 [facility] Comment on above: Performed By: #### C CARLYN DE JESUS, NESTOR #### [facility] [address] [address] [address] Joe Shea CO2 [Moles/Vol] 23.4 mmol/L Normal 21.0-32.0 [facility] [place] [facility] Comment on above: Performed By: #### C CARLYN DE JESUS, NESTOR #### [facility] [address] [address] [address] Joe Shea Creatinine [Mass/Vol] 0.84 mg/dL Normal 0.55-1.02 [facility] Comment on above: Performed By: #### C CARLYN DE JESUS, NESTOR #### [facility] [address] [address] [address] Joe Shea EGFR-AF ARGENTINE >60 Normal >=60 [facility] [place] [facility] Comment on above: Performed By: #### C CARLYN DE JESUS, NESTOR #### [facility] [address] [address] [address] Joe Shea EGFR-NON AF ARGENTINE >60 Normal >=60 [facility] Comment on above: Performed By: #### C CARLYN DE JESUS, NESTOR #### [facility] [address] [address] [address] Joe Shea Glucose [Mass/Vol] 149 mg/dL Critically high 74-106 [facility] Comment on above: Performed By: #### C CARLYN DE JESUS, NESTOR #### [facility] [address] [address] [address] Joe Shea Potassium [Moles/Vol] 2.9 mmol/L Critically low 3.5-5.1 [facility] Comment on above: Performed By: #### C CARLYN DE JESUS, NESTOR #### [facility] [address] [address] [address] Joe Shea Sodium [Moles/Vol] 139 mmol/L Normal 136-145 [facility] Comment on above: Performed By: #### C CARLYN DE JESUS AMY #### [facility] [address], [place] [address] Dr. Joe Shea Urea nitrogen [Mass/Vol] 11.0 mg/dL Normal 7.0-18.0 [facility] Comment on above: Performed By: #### C CARLYN DE JESUS AMY #### [facility] [address], [place] [address] Dr. Joe Shea Urea nitrogen/Creatinine [Mass ratio] 13.1 mg/mg Normal [facility] Comment on above: Performed By: #### C CARLYN DE JESUS AMY #### [facility] [address], [place] [address] Dr. Joe Shea XR CSPINE 2_3 VIEWSon [...] MEJIA Date: 2022-01-18 08:03 Normal [facility] C BP Strepon 12-23-2019 C BP Strep This is strictly a screening test for Strep Group A( Streptococcus pyogenes). No other pathogens will be noted. Final Backup plate negative for Group A Streptococus Resulted at [facility] Normal [facility] Comment on above: Performed By: #### B P #### [facility] (DEFAULT) [address] [place] [address] [facility] [address] [place] [address] Ambulatory Patient Education on 12-21-2019 Ambulatory Patient Education Patient Education Materials Name: Racheal Louise Current Date: 12/21/2019 14:47:45 Alison/New_[place] : 2000 [facility]: [id number] The following sheet(s) are the Patient Education [...] child is at least 4 years old. Infant under 3 months old: ? Ask your [...] a child 2 years or older. ? [id number] [employer]. [address] [place] [address], [place] [address]. All rights reserved. This information is not intended as a substitute for professional medical care. Always follow your healthcare professional's instructions. Strep today is Negative. Will send for culture to [facility] and notify if it returns positive. Take medication as prescribed. Discontinue for a negative strep culture. Discard and replace toothbrush after taking antibiotics for at least 24 hours. May use tdzz-dhj-uybzhhp Tylenol and Motrin for pain relief. May use of oirb-mck-pnjarcb Chloraseptic throat spray, lozenges, cool or warm [...] tabs, 0 Refill(s), 12/26/19 14:42:00 EDT, Pharmacy: [id number] OR Trackon 12-21-2019 BVO Red Swab # 1 Normal [facility] Comment on above: Performed By: #### O [facility] Tracking Order #### [facility] [address] [place] [address] Urgent Care Office/Clinic No sabiha 12-21-2019 Urgent [...] POC: negative. Swab will be sent to [facility] for culture. We will call if positive and treat appropriately. Additional Vitals Body Mass Index Measured: 18.43 kg/m2 Peripheral Pulse Rate: 111 bpm High Assessment/Plan 1. Sore throat Strep today is Negative. Will send for culture to [facility] and notify if it returns positive. Take medication as prescribed. Discontinue for a negative strep culture. Discard and replace toothbrush after taking antibiotics for at least 24 hours. May use twwg-wca-ddvsfjg Tylenol and Motrin for pain relief. May use of zbuh-mwm-qzzpmiu Chloraseptic throat spray, lozenges, cool or warm [...] tabs, 0 Refill(s), 12/26/19 14:42:00 EDT, Pharmacy: [id number] Physician Comments Centor criteria reviewed. [...] by Rosa Fitch 12/21/19 15:01 EDT Normal [facility] Vital Signs Date Time Vital Sign Value Performing Clinician Facility 03-28-2023 10:160400 Body height 157.48 cm Referring Provider Unknown [id number] [address] [place] Work Phone: 03-28-2023 10:16-0400 Body mass index (BMI) [Ratio] 23.78 kg/m2 Referring Provider Unknown [id number] [address] [place] Work Phone: 03-28-2023 10:16-0400 Body surface area Derived from formula 1.59 m2 Referring Provider Unknown [id number] 1200 [place] Work Phone: 03-28-2023 10:16-0400 Body weight 58.97 kg Referring Provider Unknown [id number] 1200 [place] Work Phone: 03-28-2023 10:16-0400 Diastolic blood pressure 65 mm[Hg] Referring Provider Unknown [id number] 1200 [place] Work Phone: 03-28-2023 10:16-0400 Heart rate 96 /min Referring Provider Unknown [id number] 1200 [place] Work Phone: 03-28-2023 10:16-0400 Systolic blood pressure 107 mm[Hg] Referring Provider Unknown [id number] 1200 [place] Work Phone: 03-28-2023 10:16-0400 0 1 Referring Provider Unknown [id number] 1200 [place] Work Phone: Comment on above: [facility] 02-14-2023 09:15-0400 Body height 154.94 cm Filippo Larson Other [facility] Other 02-14-2023 09:15-0400 Body mass index (BMI) [Ratio] 21.73 kg/m2 Filippo Larson Other [facility] Other 02-14-2023 09:15-0400 Body weight 52.16 kg Filippo Larson Other [facility] Other 02-14-2023 09:15-0400 Diastolic blood pressure 68 mm[Hg] Filippo Larson Other [facility] Other 02-14-2023 09:15-0400 Systolic blood pressure 96 mm[Hg] Filippo Larson Other [facility] Other 07-17-2022 14:26-0500 Blood Pressure Location Mayito LIM [facility] [place] 07-17-2022 14:26-0500 Diastolic blood pressure 70 mm[Hg] Mayito LIM [facility] [place] 07-17-2022 14:26-0500 Heart rate 70 /min Mayito LIM [facility] Surgery [place] 07-17-2022 14:26-0500 Respiratory rate 16 /min Mayito LIM [facility] [place] 07-17-2022 14:26-0500 Systolic blood pressure 102 mm[Hg] Mayito LIM [facility] [place] 03-09-2020 20:24-0400 BP Diastolic 61 mm[Hg] PHYSICIAN NO [facility] 03-09-2020 20:24-0400 BP Systolic 117 mm[Hg] PHYSICIAN NO [facility] 03-09-2020 20:24-0400 Pulse (Heart Rate) 85 /min PHYSICIAN NO [facility] 03-09-2020 20:24-0400 Pulse Oximetry 100 % PHYSICIAN NO [facility] 03-09-2020 20:24-0400 Respiratory Rate 24 /min PHYSICIAN NO [facility] 03-09-2020 18:49-0400 BMI (Body Mass Index) 20 kg/m2 PHYSICIAN NO [facility] 03-09-2020 18:49-0400 Body Temperature 98.7 [degF] PHYSICIAN NO [facility] 03-09-2020 18:49-0400 Body weight 49.7 kg PHYSICIAN NO [facility] 03-09-2020 18:49-0400 Height 157.48 cm PHYSICIAN NO [facility] Encounters Encounter Date Encounter Type Care Provider Facility Start: 07-04-2023 Orders Only Freddy Hughes [facility] rna- Medicine at [facility] Comment on above: Dichorionic diamniot ic twin in third trimester (Primary Dx); Poor growth affecting management of mother in third trimester, fetus 1 of multiple gestation Start: 06-11-2023 End: 06-11-2023 ambulatory NESTOR PRICE Not Available Start: 05-28-2023 End: 05-28-2023 ambulatory CECIL QUINTANA Not Available Start: 05-14-2023 End: 05-14-2023 ambulatory NESTOR PRICE Not Available Start: 03-28-2023 Office consultation new/estab patient 80 min Referring Provider Unknown [id number] 1200 [place] Work Phone: Start: 03-28-2023 Patient encounter procedure Referring Provider Unknown [id number] 1200 [place] Work Phone: Start: 03-28-2023 ambulatory Ramakrishna Schwarz Facility :[facility] Start: 02-14-2023 End: 02-14-2023 ambulatory Filippo Larson Other [employer] Other Start: 02-14-2023 Office outpatient vi sit 15 minutes Filippo Larson [facility] G[facility]ology Start: 11-28-2022 End: 11-28-[address] SUKI CONDE Facility: Start: 11-28-[address] SUKI CONDE Facil ity:H1 Start: 10-28-2022 End: 10-28-[address] SUKI CONDE Facility:H1 Start: 09-29-2022 End: 09-29-[address] SUKI CONDE Facility:H1 Start: 09-19-2022 End: 09-20-[address] SUKI CONDE Facility:[facility]1 Start: 08-15-[address] SUKI CONDE Facil ity:H1 Start: 07-17-2022 End: 07-18-2022 ambulatory SUKI CONDE PROVIDER Facility:[facility] Start: 07-17-2022 End: 07-17-2022 Patient encounter procedure Mayito LIM [facility] Nill/Hossein [place] Start: 07-10-2022 End: 07-10-[address] CECIL QUINTANA . Facility:H1 Start: 07-08-2022 Encounter for preprocedural laboratory examination DR CECIL QUINTANA . [facility] Start: 07-06-2022 End: 07-07-[address] CECIL QUINTANA . Facility:[facility]1 Start: 07-06-2022 End: 07-07-2022 Encounter for preprocedural laboratory examination DR CECIL QUINTANA . Facility:H1 Start: 06-15-2022 End: 06-16-[address] CECIL QUINTANA . Facility:H1 Start: 06-11-2022 End: 06-12-2022 ambulatory JUANJOSE VIRAMONTES Facility:[facility]1 Start: 06-08-2022 ambulatory SUKI CONDE PROVIDER Facility:[facility] Start: 05-31-2022 End: 06-01-[address] CECIL QUINTANA . Facility:[facility]1 Start: 05-29-2022 End: 05-29-2022 ambulatory HARMAN ADAMS Facility:[facility]1 Start: 05-23-2022 End: 05-23-2022 ambulatory MARYURI KAPLAN . Facility:[facility]1 Start: 05-22-2022 End: 05-22-2022 ambulatory HARMAN ADAMS Facility:[facility]1 Start: 05-21-2022 End: 05-22-[address] SHIRLEY SHEPHERD Facility:H1 Start: 05-07-2022 End: 05-08-[address] CECIL QUINTANA . Facility:[facility]1 Start: 04-09-2022 End: 04-10-[address] CECIL QUINTANA . Facility:[facility]1 Start: 04-05-2022 End: 04-06-[address] CECIL QUINTANA . Facility:[facility]1 Start: 03-10-2022 End: 03-10-[address] SUKI CONDE Facility:H1 Start: 03-10-2022 End: 03-10-[address] SUKI CONDE Facility:H1 Start: 01-17-2022 End: 01-18-[address] SUKI CONDE Facility:H1 Start: 03-09-2020 End: 03-09-2020 Emergency department patient visit PHYSICIAN KIMI [facility] Start: 04-27-2014 End: 04-27-2014 Telephone encounter Noa Dimas MD Work Phone: Reproductive Endocrinology Infertility Procedures Date Procedure Procedure Detail Performing Clinician Start: 10-25-2020 Microscopic observation [Identifier] in Cervix by Cyto stain 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 Colonoscopy Mayito LIM Dilation and curettage Temo LIM Dilation and curettage Temo LIM Esophagogastroduodenoscopy Arianna knight RAPHAEL Excision of cyst of ovary Mi real RAPHAEL Laparoscopy Mayito RAPHAEL Plan of Treatment Date Care Activity Detail Author Start: 05-28-2032 DTaP,Tdap and Td Vaccines (8 - Td or Tdap) DTaP,Tdap and Td Vaccines (8 - Td or Tdap) [facility] Start: 07-04-2024 End: 07-04-2024 US MFM with or without consult US MFM with or without consult Imaging Routine Dichorionic diamniotic twin in third trimester Poor growth affecting management of mother in third trimester, fetus 1 of multiple gestation Expected: 07/04/2024 (Approximate), Expires: 07/04/2024 [facility] Work Phone: Comment on above: Expected: 07/04/2024 (Approximate), Expires: 07/04/2024 Start: 06-03-2024 Adult BMI Screening Adult BMI Screen [facility] Start: 06-03-2024 Tobacco Screening Tobacco Screening [facility] Start: 2024 Screening for Chlamy carroll trachomatis Chlamydia Screening [facility] Start: 10-26-2023 Screening for malign ant neoplasm of cervix Pap Smear [facility] Start: 07-17-2023 End: 07-17-2023 Patient encounter procedure 07/17/2023 9:30 AM EST Appointment [facility] [address] [place] [id number] [facility] Start: 07-08-2023 End: 07-08-2023 Telemedicine consultation with patient 07/08/2023 1:00 PM EST Telemedicine Maternal- Medicine at [facility] [address] [place] [address] Paulie Cervantes MD [address] [place], [place] [id number] Bella Smith MD [address] [place] [address] Maternal- Medicine at [facility] Start: 03-01-2023 Influenza vaccination Influenza Vacc ine [facility] Start: 03-01-2021 Influenza vaccination INFLUENZ A (Season Ended) Start: 02-28-2020 PAP TESTING PAP TESTING Start: 2018 Urine microalbumin profile DTAP,TDAP,TD (1 - Tdap) Start: 2017 Adult BMI Follow Up Plan Adult BMI Follow Up Plan [facility] Start: 2017 CHLAMYDIA SCREENING (18-24) CHLAMYDIA SCREENING (18-24) Start: 2017 GC (GONORRHEA) SCREE KRUNAL (18-24) GC (GONORRHEA) SCREENING (18-24) Start: 2017 HEPATITIS C SCREENING HEPATITIS C SC REENING Start: 2017 HIV SCREENING HIV SCREENING [facility] Start: 2011 Adult depression screening assessment DEPRESSION SCREENING [facility] Start: 2010 HPV VACCINE (1 - 2-d ose series) HPV VACCINE (1 - 2-dose series) Patient Education Anxiety (ED) [facility] Patient referral [facility] Immunizations Immunization Date Immunization Notes Care Provider Fa juan c 01-05-2022 influenza virus vaccine, unspecified formulation Freddy Hughes [facility] NEGATED: Highlighted row has not occurred!07-17-2022 influenza virus vaccine, unspecified formulation Mayito LIM [facility] [place] Payers Date Payer Category Payer Unknown 2013 Unknown [facility] [place] P[employer] [id number] 2013-2014 PPO [id number] 1999 Unknown [id number] 2.16.840.1.919044.3.579.2.727 1999 Unknown [id number] 2.16.840.1.870944.3.579.2.727 1999 Unknown [id number] 2.16.840.1.822755.3.579.2.593 1999 Unknown [id number] 2.16.840.1.221317.3.579.2.593 1999 Unknown [id number] 2.16.840.1.393889.3.579.2.593 1999 Unknown [id number] 2.16.840.1.332179.3.579.2.593 1999 Unknown [id number] 2.16.840.1.020388.3.579.2.593 1999 Unknown [id number] 2.16.840.1.862946.3.579.2.593 1999 Unknown [id number] 2.16.840.1.513710.3.579.2.593 1999 Unknown [id number] 2.16.840.1.858590.3.579.2.593 1999 Unknown [id number] 2.16.840.1.984166.3.579.2.593 1999 Unknown [id number] 2.16.840.1.445949.3.579.2.593 1999 Unknown [id number] 2.16.840.1.314577.3.579.2.593 1999 Unknown [id number] 2.16.840.1.283552.3.579.2.593 1999 Unknown [id number] 2.16.840.1.025825.3.579.2.593 1999 Unknown [id number] 2.16.840.1.683613.3.579.2.593 1999 Unknown [id number] 2.16.840.1.071140.3.579.2.593 1999 Unknown [id number] 2.16.840.1.922541.3.579.2.593 1999 Unknown [id number] 2.16.840.1.106482.3.579.2.593 1999 Unknown [id number] 2.16.840.1.299982.3.579.2.593 1999 Unknown [id number] 2.16.840.1.712538.3.579.2.593 1999 Unknown [id number] 2.16.840.1.363207.3.579.2.593 1999 Unknown [id number] 2.16.840.1.582165.3.579.2.593 1999 Unknown [id number] 2.16.840.1.686612.3.579.2.356 1999 Unknown [id number] 2.16.840.1.271673.3.579.2.1259 1999 Unknown [id number] 2.16.840.1.170582.3.579.2.1259 1999 Unknown [id number] 2.16.840.1.323530.3.579.2.1259 1959 Unknown [id number] 1959 Unknown [id number] 1959 Unknown [id number] Self-pay Self Pay [id number] Unknown Self Pay [id number] Social History Date Type Detail Facility Start: 03-09-2020 Tobacco smoking status [facility] Smoker (finding) [facility] Start: 2000 Sex Assigned At Female [facility] Start: 04-12-2014 Tobacco smoking status SDIS Never smoker Start: 04-12-2014 End: 04-01-2023 Tobacco use and exposure Never used [facility] Start: 04-12-2014 Alcohol intake Current non-dr molding manager of alcohol (finding) Start: 2000 Sex Assigned At Not on file Start: 07-17-2022 End: 04-01-2023 Tobacco smoking status Ex-smoker (finding) [facility] [place] Tobacco smoking status Smokeless tobacco user within last 30 days [facility] [place] Start: 06-03-2023 Sex Assigned At Female [facility] Start: 04-01-2023 End: 06-03-2023 No alcohol use No alcohol use [facility] History of tobacco use Cigarette Smoker [facility] Start: 06-03-2023 Alcohol intake Ex-drinker (finding) [facility] Start: 10-25-2020 Alcohol Comment RARELY [facility] Start: 11-22-2022 [facility] NEGATED: Highlighted row Denies History of domestic violence Denies History of domestic violence [id number] [address] [facility] Work Phone: Goals Date Patient Goal Desired Activity /State Functional Status Date Assessment Result Facility 07-17-2022 Functional Status N/A [facility] Clinical Notes 04-27-2014 to 02-14-2023 Note Date [...] needed. Retrun visit here in three months. [facility] Other 01-20-2023 NoteChief Complaint consultation for epigastric pain, abdominal cramping and bloating [facility] Staff 22 year old female presents on consultation from Dr. Conde for intermittent burning epigastric and sharp/stabbing LUQ pain. Reports generalized abdominal cramping and bloating. Intermittent nausea and vomiting. Denies rectal pain or bleeding. Reports long standing history of constipation for which she takes stool softener. Reports colonoscopy completed several years ago at [facility] was normal. History of Present Illness 22 yo female with h/o bipolar disorder, anxiety, migraines, referred for intermittent epigastric and LUQ pain, burning, at times sharp/stabbing; occasional N/V; + boating; no food triggers, occurs celia without eating; no hematemesis or melena; no hematochezia, some constipation, improved with stool softeners; had [place] [facility] [place]; abdominal operations significant for laparoscopy [...] more than 30 da (more content not included)...[facility]Result Comment: Electronically Signed By: RAPHAEL MACIAS, Mayito Matthews\Date and Time Signed: 07/20/22 14:58 [id number] Note OPERATIVE NOTE OPERATION DATE: 07/10/2021 PROCEDURE: Diagnostic laparoscopy with chromopertubation. PREOPERATIVE DIAGNOSIS: Pelvic pain. POSTOPERATIVE DIAGNOSIS: Pelvic pain, including small endometrial implant posterior cul-de-sac, as well as possible blunted tube on the patient's left side. ANESTHESIA: General. SURGEON: Cecil Quintana D.O. FERMENTOLOGIST: ISAURO Mccoy URINE OUTPUT: Yellow and clear. BLOOD LOSS: 5 mL. FINDINGS: Slightly blunted tube on the left side, endometriosis posterior cul-de-sac, otherwise normal appearing uterus, tubes and ovaries. Normal appearing appendix. Some adhesions of the bowel to the pelvic and abdominal side wall on the patient's right side. Normal appearing liver. No evidence of Fpoy-Obpm-Uwmqjl syndrome. PROCEDURE: The patient was taken back [...] to Recovery Room in stable conditionThe [facility] [id number] NoteOP Note OPERATION DATE: 07/10/2022 PROCEDURE: Diagnostic laparoscopy with chromopertubation. PREOPERATIVE DIAGNOSIS: Pelvic pain, suspected endometriosis, fallopian tube disorder. POSTOPERATIVE DIAGNOSIS: Pelvic pain, suspected endometriosis, fallopian tube disorder, including mild endometriosis, bilateral patent fallopian tubes, small bowel adhesion to the pelvic side wall. ANESTHESIA: General. SURGEON: Cecil Quintana D.O. FERMENTOLOGIST: ISAURO Mccoy URINE OUTPUT: Yellow and clear. BLOOD LOSS: 5 mL. ADDENDUM: Please note that chromopertubation was performed after methylene blue was placed through the HUMI manipulator. Spillage of methylene blue could be seen from both tubes.[facility] [id number] Instructions* Patient Instructions* Jennifer Lam - 04/27/2014 4:49 PM EDT [phone] - Patient mother would like to speak with a nurse concerning medications that her daughter is taking. [facility] Narrative - Reported * the patient is seen at the request of Dr. Gonzales at [facility] for consultation regarding second opinion for placental hemorrhage; EDC 08/15/2023 * FC MA [id number] [address] [place] Work Phone: chief complaint Narrative - Reported* the patient is seen at the request of Dr. Gonzales at [facility] for consultation regarding second opinion for placental hemorrhage; EDC 08/15/2023 * FC MA [id number] 1200 [place] Work Phone: evaluation + Plan note No data available for this section [facility] [place] Evaluation note* Diagnosis Dichorionic diamniotic twin in third trimester- Primary Poor growth affecting management of mother in third trimester, fetus 1 of multiple gestation documented in this encounter [facility] [employer] [facility] Narrative - Reported* Type Description Date Medical History Anxiety Medical History GERD (gastroesophageal reflux di sease) Medical History bipolar Surgical History LAPAROSCOPY-times 2013 Hospitalization History [facility] for abdominal pain & vomiting - ultrasound & CT scans 12/2022 [facility] Other Hospital Discharge instructions No data available for this section [facility] [place] InstructionsNot on filedocumented in this encounter [facility] HospitalProgress note No data available for this section [facility] [place] Summary Purpose Family History No Family History Records FoundNo Family History Records FoundNo Family History Records FoundNo Family History Records FoundNo Family History Records Found Advance Directives Advance Directive Response Recorded Date/ Time Advance Directives No March 7:38pm Chief Complaint and Reason for Visit Chief Complaint anxiety Assessments No Assessments Information Available Reason for Referral Specialty Diagnoses / Procedures Referred By Contac t Referred To Contact Maternal and Medicine Diagnoses Dichorionic diamniotic twin in third trimester Poor growth affecting management of mother in third trimester, fetus 1 of multiple gestation Procedures US MFM with or without consult Darvin Downs MD [address], [address] [place] [address] [facility] [address] [place] [address] Referral ID Status Reason Start Date Expiration Date V isits Requested Visits Authorized [id number] Pending Review 07/04/2023 07/03/2024 1 1 Additional Source Comments INFORMATION SOURCE (unrecogn ized section and content) DATE CREATED AUTHOR 02/04/2020 [facility] DATE CREATED AUTHOR AUTHOR'S ORGANIZ ATION [facility]/16/2022 [facility] DATE CREATED AUTHOR AUTHOR'S ORGANIZ ATION 12/07/2022 [facility] DATE CREATED AUTHOR AUTHOR'S ORGANIZ ATION 04/06/2023 [facility] DATE CREATED AUTHOR AUTHOR'S ORGANIZ ATION 06/13/2023 [facility] dical Specialists EPIC Source Comments (unrecognize d section and content) In the event this informatio n is protected by the Federal Confidentiality of Alcohol and Drug Abuse Patient Records regulations: The Federal rules restrict any use of the information to criminally investigate or prosecute any alcohol or drug abuse patient. 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 [facility]. provides no warranty or guarantee of the accuracy or completeness of information in this document.
[2023-07-05 09:25] VITALS: BP 115/65; PULSE 100
== END 2023-07-05 10:05 | disposition home or self-care (01) ==
LOC: FBCO 06:57 → FBC 09:16
PROVIDERS: PCP Family Medicine; Visit Provider Obstetrics & Gynecology
DX: D50.9 Iron deficiency anemia, unspecified (principal); O36.5930 Maternal care for other known or suspected poor fetal growth, third trimester, not applicable or unspecified; O41.8X30 Other specified disorders of amniotic fluid and membranes, third trimester, not applicable or unspecified; O46.8X3 Other antepartum hemorrhage, third trimester; O30.043 Twin pregnancy, dichorionic/diamniotic, third trimester
CPT/HCPCS: 59025

== ENCOUNTER 2023-07-09 07:35 | Outpatient (OUT) | payer OTHER, SELFPAY ==
--- OUTSIDE RECORDS SUMMARY | 2023-07-09 07:39 | XMS_ITS | CCD ---
Author Name Unknown Address [address] [place] [address] Organization [facility] Care Team Providers Care Financial Compliance Manager Name Role Phone NO FAMILY, PHYSICIAN Primary Care Provider UnaNela Roberts Primary Care Provider SUKI CONDE Primary Care Physician [phone] AMAYA PROVIDER, SUKI Referring Unavailab le NILMayito [...] CHANG Consulting Unavailable HARMAN ADAMS Admitting Unavailable ANGIE, HARMAN Attending Unavailable HARMAN ADAMS Consulting Unavailable NADERER, DR SUKI Kong Primary Care Unavailable ELIZABETH ., DR GATICA Consulting Unavailable ELIZABETH ., DR GATICA Admitting Unavailable ELIZABETH ., DR GATICA Attending Unavailable AMAYA, DR SUKI Kong Primary Care Unavailable AMAYA, DR SUKI Kong Referring Unavailable AMAYA, DR SUKI Kong Admitting Unavailable AMAYA, DR SUKI Kong Attending Unavailable DUNNSVILLE, DR ANGIE Arce Consulting Unavailable REQUEST, DR FERNANDO LISTED Primary Care Unavaila caitie CONDE, DR SUKI Kong Consulting Unavailable Filippo Larson Unavailable [phone] Unknown, Referring Provider Unavailable Unav ailable Ramakrishna Schwarz Attending Unavailable UNKNOWN, PCP Primary Care Unavailable CECIL QUINTANA Attending Unavailable NESTOR RPICE Attending Unavailable NESTOR PRICE Attending Unavailable No Pcp, No Pcp Primary Care Provider UnavailAMADEO Osborn Attending Unavailable CECIL QUINTANA Referring Unavailable NO PCP, NO PCP Primary Care Unavailable Unavailable Unavailable Unavailable Allergies Allergy Classification Reported Allergen(s) Allergy Type Date of Onset Reaction(s) Facility (1 source) No Known Medication Allergies; Translations: [No Known Medication Allergies] Propensity to adverse reactions (disorder) [facility] Repository Medications Current Medications Medication Drug [...] 07/17/22 Status: Ordered take 2 tablets by [facility] once daily at bedtime Elavil 25 MG 2 tablets at bedtime Orally Once a day for 30 days Not-Taking aspirin 81 mg delayed release oral tablet (2 sources) Platelet Aggregation Inhibitor, Nonsteroidal Anti-inflammatory Drug Start: 04-01-2023 take 1 tablet by mouth in the morning aspirin 81 mg Take 1 tablet (81 mg total) by mouth in the morning. 60 tablet 4 04/01/2023 Active citalopram 40 mg oral tablet (7 sources) Serotonin Reuptake Inhibitor Start: 03-07-2023 take [...] Not-Taking hydrOXYzine hydrochloride 25 mg oral tablet (6 sources) Antihistamine Start: 07-11-2022 take 1 tablet [...] Not-Taking magnesium oxide 400 mg oral capsule (2 sources) Start: 03-07-2023 take 1 capsule by mouth in the morning magnesium oxide 400 mg magnesium capsule Take 1 capsule (400 mg total) by mouth in the morning. 0 03/07/2023 Active metoclopramide 10 mg oral tablet (2 sources) Dopamine-2 Receptor Antagonist take 1 tablet by [...] pantoprazole 40 mg delayed release oral tablet (4 sources) Proton Pump Inhibitor Start: 3 take 1 tablet by mouth once daily Pantoprazole [address] Tab 40 mg = 1 tab(s), Oral, Daily, Refills(s) 0 Start Date: 07/17/22 Status: Ordered vit,amelia 74/iron/folic ( VITAMIN 1+1 ORAL) (2 sources) vit,amelia 74/iron/folic ( VITAMIN 1+1 ORAL) Take [...] source) End: 07-26-2014 NORETHINDRONE AC-ETH ESTRADIOL (, ORAL) Take by mouth. 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 ; Translations: [Other mental disorders complicating , unspecified trimester] Onset: 3 04-28-2023 Episodic Other complications of (3 sources) Anxiety in ; Translations: [Other mental disorders complicating , unspecified trimester] Onset: 3 04-28-2023 Episodic Other complications of (1 source) Maternal care for other known or suspected poor growth, third trimester, fetus 1; Translations: [Maternal care for other known or suspected poor growth, third trimester, fetus 1] Onset: 4 Episodic Other complications of (1 source) Supervision of high risk , unspecified, unspecified trimester; Translations: [Supervision of high risk , unspecified, unspecified trimester] Onset: 4 Episodic Other complications of (1 source) Maternal care for other known or suspected poor growth, unspecified trimester, not applicable or unspecified; Translations: [Maternal care for other known or suspected poor growth, unspecified trimester, not applicable or unspecified] Onset: 4 Episodic Other endocrine disorders (1 source) Disorder [...] unspecified] Episodic Other and delivery including normal (7 sources) Twin , dichorionic/diamniotic , second trimester; Translations: [Dichorionic diamniotic twin ] Onset: 3 07-04-2023 Episodic Other upper respiratory disease (1 source) Seasonal allergic rhinitis 07-11-2022 Chronic Ovarian cyst (6 sources) Cyst of ovary; Translations: [Corpus luteum cyst of right ovary] Onset: 2 07-11-2022 Episodic Polyhydramnios and other problems of amniotic cavity (5 sources) Other specified disorders of amniotic fluid and membranes, second trimester, fetus 1; Translations: [Subchorionic hematoma] Onset: 3 04-28-2023 Episodic Residual codes; unclassified (1 source) Insomnia 07-11-2022 Episodic Residual codes; unclassified (1 source) 20 weeks gestation of ; Translations: [20 weeks gestation of ] Onset: 3 Episodic Residual codes; unclassified (1 source) Gestation period, 34 weeks; Translations: [34 weeks gestation of ] 07-08-2023 Episodic Substance-related disorders (1 source) Maternal care for (suspected) damage to fetus by drugs, not applicable or unspecified; Translations: [Maternal care for (suspected) damage to fetus by drugs, not applicable or unspecified] Onset: 4 Episodic Unclassified (1 source) Body mass index 20-24 - normal 07-17-2022 Unclassified (1 source) CONTACT W/AND (SUSP) EXPOS COVID-19; Translations: [CONTACT W/AND (SUSP) EXPOS COVID-19] Onset: 2 Past or Other Problems Problem Classification Problem Date Documented Da te Episodic/Chronic E Codes: Cut/pierceb (1 source) Contact with other sharp object(s), not elsewhere classified, initial encounter; Translations: [[facility] OTH SHRP OB NOT ELSW CLASS INI] Onset: [...] disorder, unspecified; Translations: [ENDOCRINE DISORDER UNSPECIFIED] Onset: 11-07-2022 Episodic Other female genital disorders (1 source) Noninflammatory disorder of ovary, fallopian tube and broad ligament, unspecified; Translations: [OTH NONINFL D/O OVARY TUBE AND BRD LIG] [...] a) No falls within the last year [id number] [address] [place] Work Phone: Tobacco use status CPHS a) Yes M G-OBGYN-[facility] [address] [place] Work Phone: Blood Pressure Cuff Size Adult [id number] [address] [place] Work Phone: Blood Pressure Cuff Size Yes [id number] 1200 [place] Work Phone: No Panel Informationon 03-28 Normal [id number] [address] [place] Work Phone: OB Completed scan [...] gestation - rr cfDNA - Referred from [place] because of subchorionic hematomas A targeted anatomic [...] previously been seen by Dr. Gonzales in [place]. Twins are doing well, their growth is [...] EFW (oz) 12 oz EFW by: Hadlock ([id number]) Extended Geodetic Survey Director 5.8 mm CM 3.9 mm 16% Nicolaides [...] Amylase [Catalytic activity/Vol] 35 U/L Normal 25-115 [facility] Comment on above: Performed By: #### C NEAL LIPA, NESTOR #### [facility] [address] [address] [address] Joe Shea CBC AUTO DIFFon 10-28-2022 BASO # 0.1 103/ul Normal 0.0-0.1 [facility] Comment on above: Performed By: #### C NEAL LIPA, NESTOR #### [facility] [address] [address] [address] Joe Shea Basophils/100 WBC (Bld) 0.4 % Normal 0.2-2.0 [facility] Comment on above: Performed By: #### C NEAL LIPA, NESTOR #### [facility] [address] [address] [address] Joe Shae EO # 0.1 103/ul Normal 0.0-0.7 [facility] Comment on above: Performed By: #### C NEAL LIPA, NESTOR #### [facility] [address] [address] [address] Joe Shea Eosinophils/100 WBC (Bld) 0.8 % Critically low 0.9-7. 0 [facility] Comment on above: Performed By: #### C CARLYN DE JESUS AMY #### [facility] [address] [place] [address] Dr. Joe Shea Erythrocyte distribution width (RBC) [Ratio] 13.2 % Normal 11.0-15.0 [facility] Comment on above: Performed By: #### C CARLYN DE JESUS AMY #### [facility] [address] [place] [address] Dr. Joe Shea Hematocrit (Bld) [Volume fraction] 37.2 % Normal 36.0-48.0 [facility] Comment on above: Performed By: #### C CARLYN DE JESUS AMY #### [facility] [address] [place] [address] Dr. Joe Shea Hemoglobin (Bld) [Mass/Vol] 12.0 g/dL Normal 12.0-16.0 [facility] Comment on above: Performed By: #### C CARLYN DE JESUS AMY #### [facility] [address] [place] [address] Dr. Joe Shea IG # 0.03 10e3/ul Normal 0.00-0.03 [facility] Comment on above: Performed By: #### C CARLYN DE JESUS AMY #### [facility] [address] [place] [address] Dr. Joe Shea IG % 0.2 % Normal 0.0-0.5 [facility] Comment on above: Performed By: #### C CARLYN DE JESUS, NESTOR #### [facility] [address] [place] [address] Dr. Joe Shea LYMPH # 1.9 103/ul Normal 1.2-3.8 [facility] Comment on above: Performed By: #### C CARLYN DE JESUS, NESTOR #### [facility] [address] [place] [address] Dr. Joe Shea Lymphocytes/100 WBC (Bld) 15.2 % Critically low 20.5-6 0.0 [facility] Comment on above: Performed By: #### C CARLYN DE JESUS, NESTOR #### [facility] [address] [place] [address] Dr. Joe Shea MANUAL DIFF REQ NO Normal [facility] Comment on above: Performed By: #### C MP, LIPA, NESTOR #### [facility] [address] [place] [address] Dr. Joe Shea MCH (RBC) [Entitic mass] 28.4 pg Normal 26.7-34.0 [facility] Comment on above: Performed By: #### C MP, LIPA, NESTOR #### [facility] [address] [place] [address] Dr. Joe Shea MCHC (RBC) [Mass/Vol] 32.3 g/dL Normal 29.9-35.2 [facility] Comment on above: Performed By: #### C MP, LIPA, NESTOR #### [facility] [address] [place] [address] Dr. Joe Shea MCV (RBC) [Entitic vol] 87.9 fL Normal 81.0-99.0 [facility] Comment on above: Performed By: #### C MP, LIPA, NESTOR #### [facility] [address] [place] [address] Dr. Joe Shea MONO # 0.9 103/ul Critically high 0.3-0.8 [facility] Comment on above: Performed By: #### C MP, LIPA, NESTOR #### [facility] [address] [place] [address] Dr. Joe Shea Monocytes/100 WBC (Bld) 7.1 % Normal 1.7-12.0 [facility] Comment on above: Performed By: #### C MP, LIPA, NESTOR #### [facility] [address] [place] [address] Dr. Joe Shea NEUT # 9.5 103/ul Critically high 1.4-6.5 [facility] Comment on above: Performed By: #### C MP, LIPA, NESTOR #### [facility] [address] [place] [address] Dr. Joe Shea Neutrophils/100 WBC (Bld) 76.3 % Critically high 43.0- 75.0 [facility] Comment on above: Performed By: #### C CARLYN DE JESUS AMY #### [facility] [address] [place] [address] Dr. Joe Shea Platelet mean volume (Bld) [Entitic vol] 10.8 fL Normal 9.5-13.5 [facility] Comment on above: Performed By: #### C CARLYN DE JESUS AMY #### [facility] [address] [address] [address] Joe Shea PLT 283 103/ul Normal 150-450 [facility] Comment on above: Performed By: #### C CARLYN DE JESUS AMY #### [facility] [address] [place] [address] Dr. Joe Shea RBC 4.23 106/ul Normal 4.20-5.40 [facility] Comment on above: Performed By: #### C CARLYN DE JESUS AMY #### [facility] [address] [place] [address] Dr. Joe Shea WBC 12.5 103/ul Critically high 4.0-11.0 [facility] Comment on above: Performed By: #### C CARLYN DE JESUS AMY #### [facility] [address] [place] [address] ABD/PELV W CONon [...] 2022-10-28 18:31 Normal [facility] URINE PROFILEon 3 Bilirubin Ql (U) Negative Normal NEGATIVE [facility] Comment on above: Performed By: #### L BCL #### [facility] [address] [place] [address] Dr. Joe Shea Clarity (U) CLEAR Normal CLEAR [facility] Comment on above: Performed By: #### L BCL #### [facility] [address] [place] [address] Dr. Joe Shea Color (U) LT. YELLOW Normal YELLOW [facility] Comment on above: Performed By: #### L BCL #### [facility] [address] [place] [address] Dr. Joe YUNG A micrscopic examination will be performed if indicated. Normal [facility] Comment on above: Performed By: #### L BCL #### [facility] [address] [place] [address] Dr. Joe Shea Glucose Ql (U) Negative Normal NEGATIVE [facility] Comment on above: Performed By: #### L BCLH #### [facility] [address] [place] [address] Dr. Joe Shea Hemoglobin Ql (U) Negative Normal NEGATIVE [facility] Comment on above: Performed By: #### L BCLH #### [facility] [address] [place] [address] Dr. Joe Shea Ketones Ql (U) Negative Normal NEGATIVE [facility] Comment on above: Performed By: #### L BCL #### [facility] [address] [place] [address] Dr. Joe Shea LEUKOCYTES TRACE Abnormal NEGATIVE [facility] Comment on above: Performed By: #### L BCL #### [facility] [address] [place] [address] Dr. Joe Shea Nitrite Ql (U) Negative Normal NEGATIVE [facility] Comment on above: Performed By: #### L BCL #### [facility] [address] [place] [address] Dr. Joe Shea pH (U) 8.0 [pH] Normal 5-9 [facility] Comment on above: Performed By: #### L BCL #### [facility] [address] [place] [address] Dr. Joe Shea SPEC GRAVITY 1.015 Normal 1.005-<=1.02 5 [facility] Comment on above: Performed By: #### L BCL #### [facility] [address] [place] [address] Dr. Joe Shea UA PROTEIN Negative Normal NEGATIVE/ TRACE [facility] Comment on above: Performed By: #### L BCL #### [facility] [address] [place] [address] Dr. Joe Shea UR MICRO IND INDICATED Normal [facility] Comment on above: Performed By: #### L BCL #### [facility] [address] [place] [address] Dr. Joe Shea Urobilinogen Qn (U) 2.0 {Pascual'U}/dL Abnormal 0.2 - 1. 0 [facility] Comment on above: Performed By: #### L BCL #### [facility] [address] [place] [address] Dr. Joe Shea LIPASEon 10-28-2022 Lipase [Catalytic activity/Vol] 93.0 U/L Normal 73.0-393.0 [facility] Comment on above: Performed By: #### C MP, LIPA, NESTOR #### [facility] [address] [address] [address] Joe Shea URon 10-28-2022 , QUAL Negative Normal NEGATIVE [facility] Comment on above: Performed By: #### L BCLH #### [facility] [address] [place] [address] Dr. Joe Shea PROF 14(COMP METB)on 023 Albumin [Mass/Vol] 4.1 g/dL Normal 3.4-5.0 [facility] Comment on above: Performed By: #### C MP, LIPA, NESTOR #### [facility] [address] [place] [address] Dr. Joe Shea Albumin/Globulin [Mass ratio] 1.2 {ratio} Normal [facility] Comment on above: Performed By: #### C MP, LIPA, NESTOR #### [facility] [address] [place] [address] Dr. Joe Shea ALP [Catalytic activity/Vol] 60 U/L Normal 46-116 [facility] Comment on above: Performed By: #### C MP, LIPA, NESTOR #### [facility] [address] [place] [address] Dr. Joe Shea ALT [Catalytic activity/Vol] 22 U/L Normal 14-59 [facility] Comment on above: Performed By: #### C MP, LIPA, NESTOR #### [facility] [address] [place] [address] Dr. Joe Shea Anion gap [Moles/Vol] 10.2 mmol/L Normal [facility] Comment on above: Performed By: #### C MP, LIPA, NESTOR #### [facility] [address] [place] [address] Dr. Joe Shea AST [Catalytic activity/Vol] 14 U/L Critically low 15-37 [facility] Comment on above: Performed By: #### C MP, LIPA, NESTOR #### [facility] [address] [place] [address] Dr. Joe Shea Bilirubin [Mass/Vol] 0.5 mg/dL Normal 0.2-1.0 [facility] Comment on above: Performed By: #### C MP, LIPA, NESTOR #### [facility] [address] [address] [address] Joe Shea Calcium [Mass/Vol] 8.9 mg/dL Normal 8.5-10.1 [facility] Comment on above: Performed By: #### C MP, LIPA, NESTOR #### [facility] [address] [place] [address] Dr. Joe Shea Chloride [Moles/Vol] 103 mmol/L Normal 98-107 [facility] Comment on above: Performed By: #### C MP LIPA, NESTOR #### [facility] [address] [place] [address] Dr. Joe Shea CO2 [Moles/Vol] 28.1 mmol/L Normal 21.0-32.0 [facility] Comment on above: Performed By: #### C NEAL LIPA, NESTOR #### [facility] [address] [place] [address] Dr. Joe Shea Creatinine [Mass/Vol] 0.77 mg/dL Normal 0.55-1.02 [facility] Comment on above: Performed By: #### C NEAL LIPA, NESTOR #### [facility] [address] [place] [address] Dr. Joe Shea EGFR-AF SOMALI >60 Normal >=60 [facility] Comment on above: Performed By: #### C NEAL LIPA, NESTOR #### [facility] [address] [place] [address] Dr. Joe Shea EGFR-NON AF SOMALI >60 Normal >=60 [facility] Comment on above: Performed By: #### C MP LIPA, NESTOR #### [facility] [address] [place] [address] Dr. Joe Shea Globulin (S) [Mass/Vol] 3.5 g/dL Normal T [facility] Comment on above: Performed By: #### C MP, LIPA, NESTOR #### [facility] [address] [place] [address] Dr. Joe Shea Glucose [Mass/Vol] 85 mg/dL Normal 74-106 [facility] Comment on above: Performed By: #### C CARLYN DE JESUS AMY #### [facility] [address] [place] [address] Dr. Joe Shea Potassium [Moles/Vol] 3.3 mmol/L Critically low 3.5-5.1 [facility] Comment on above: Performed By: #### C CARLYN DE JESUS AMY #### [facility] [address] [place] [address] Dr. Joe Shea Protein [Mass/Vol] 7.6 g/dL Normal 6.4-8.[address] [facility] Comment on above: Performed By: #### C CARLYN DE JESUS AMY #### [facility] [address] [place] [address] Dr. Joe Shea Sodium [Moles/Vol] 138 mmol/L Normal 136-[address] [facility] Comment on above: Performed By: #### C CARLYN DE JESUS AMY #### [facility] [address] [place] [address] Dr. Joe Shea Urea nitrogen [Mass/Vol] 6.0 mg/dL Critically low 7.0-18. 0 [facility] Comment on above: Performed By: #### C CARLYN DE JESUS AMY #### [facility] [address] [place] [address] Dr. Joe Shea Urea nitrogen/Creatinine [Mass ratio] 7.8 mg/mg Normal [facility] Comment on above: Performed By: #### C CARLYN DE JESUS AMY #### [facility] [address] [place] [address] Dr. Joe Shea URINE MICROSCOPIC ONLYon BACTERIA NONE SEEN Normal NONE SEEN [facility] Comment on above: Performed By: #### L BCL #### [facility] [address] [place] [address] Dr. Joe Shea Bacteria identified Cx Nom (U) NOT INDICATED Normal [facility] Comment on above: Performed By: #### L BCLShyla #### [facility] [address] [place] [address] Dr. Joe Shea CAST NONE SEEN Normal NONE SEEN [facility] Comment on above: Performed By: #### L BCLH #### [facility] [address] [place] [address] Dr. Joe Shea Crystals LM Nom (Urine sed) NONE SEEN Normal NONE SEEN [facility] Comment on above: Performed By: #### L BCLH #### [facility] [address] [place] [address] Dr. Jeo Shea Epithelial cells LM Ql (Urine sed) FEW Abnormal NONE SEEN /RARE [facility] Comment on above: Performed By: #### L BCLH #### [facility] [address] [place] [address] Dr. Joe Shea MUCOUS NONE SEEN Normal NONE SEEN [facility] Comment on above: Performed By: #### L BCLH #### [facility] [address] [place] [address] Dr. Joe Shea RBC NONE SEEN Abnormal 0-2 [facility] Comment on above: Performed By: #### L BCLH #### [facility] [address] [place] [address] Dr. Joe Shea WBC 0-2 Abnormal NONE SEEN [facility] Comment on above: Performed By: #### L BCLH #### [facility] [address] [place] [address] Dr. Joe Shea LACTOFERRIN FECAL QUANTon Lactoferrin, Fecal, Quant. <1.00 Normal 0.00-7.24 [facility] Comment on above: Result Comment: Re [...] bowel syndrome (IBS). Performed By: #### D HEASMARICRUZ #### [facility] [address] [place] [address] Dr. Joe Shea CALPROTECTIN, FECALon 2022 Calprotectin, Fecal 31 ug/g Normal 0-120 [facility] Comment on above: Result Comment: Conc entration Interpretation Follow-Up <16 - 50 ug/g Normal None >50 -120 ug/g Borderline Re-evaluate in 4-6 weeks >120 ug/g Abnormal Repeat as clinically indicated Performed By: #### C MP, LIPA, NESTOR #### [facility] [address] [address] [address] Joe Shea BOWEL DISORDERS EVALUATION R ULE-OUT CASCon 09-25-2022 Antigliadin 8 units Normal 0-19 [facility] Comment on above: Result Comment: Nega tive 0 - 19 Weak Positive 20 - 30 Moderate to Strong Positive >30 . Performed By: #### C BC #### [facility] [address] [address] [address] Joe Shea Atypical pANCA Negative Normal Negative [facility] Comment on above: Performed By: #### C BC #### [facility] [address] [address] [address] Joe Shea Note: [place] continues Normal [facility] Comment on above: Performed By: #### C BC #### [facility] [address] [address] [address] Joe Shea Note: Comment Normal [facility] Comment on above: Result Comment: Sugg estive of irritable bowel syndrome (IBS). Careful evaluation of the patient's history, physical examination, and application of [place] III diagnostic criteria may help to rule in or rule out the diagnosis of IBS. Subsequent testing for Fecal Calprotectin (763149) may be recommended. If IBD is strongly suspected, subsequent testing with the Crohn's Disease Prognostic Profile ([id number]) that includes anti- glycan antibodies AMCA, ALCA, ACCA, and Zulema may aid in differential diagnosis. Performed By: #### C BC #### [facility] [address] [address] [address] Joe Shea Saccharomyces Cer. IgG <20.0 Normal 0.0-24.9 [facility] Comment on above: Result Comment: Nega tive <20.0 Equivocal 20.1 - 24.9 Positive >or= 25.0 Performed By: #### C BC #### [facility] [address] [place] [address] Dr. Joe Shea tTG/DGP SCR Negative Normal Negative [facility] Comment on above: Result Comment: Ef fective September 21, 2022 this profile will be made non-orderable due to non-availability of reagents for tTG/DGP Combo. No replacement number is available at this time. For further information, please contact your local [facility]. Performed By: #### C BC #### [facility] [address] [place] [address] Dr. Joe Shea CBC AUTO DIFFon 09-19-2022 BASO # 0.1 103/ul Normal 0.0-0.1 [facility] Comment on above: Performed By: #### D TRESA #### [facility] [address] [place] [address] Dr. Joe Shea Basophils/100 WBC (Bld) 0.9 % Normal 0.2-2.0 [facility] Comment on above: Performed By: #### D LUIS ARMANDOUL #### [facility] [address] [place] [address] Dr. Joe Shea EO # 0.2 103/ul Normal 0.0-0.7 [facility] Comment on above: Performed By: #### D LUIS ARMANDOUL #### [facility] [address] [place] [address] Dr. Joe Shea Eosinophils/100 WBC (Bld) 2.4 % Normal 0.9-7.0 [facility] Comment on above: Performed By: #### D LUIS AMRANDOUL #### [facility] [address] [place] [address] Dr. Joe Shea Erythrocyte distribution width (RBC) [Ratio] 13.2 % Normal 11.0-15.0 [facility] Comment on above: Performed By: #### D LUIS ARMANDOUL #### [facility] [address] [place] [address] Dr. Joe Shea Hematocrit (Bld) [Volume fraction] 38.3 % Normal 36.0-48.0 [facility] Comment on above: Performed By: #### Althea GTZ #### [facility] [address] [place] [address] Dr. Joe Shea Hemoglobin (Bld) [Mass/Vol] 12.3 g/dL Normal 12.0-16.0 [facility] Comment on above: Performed By: #### Althea GTZ #### [facility] [address] [place] [address] Dr. Joe Shea IG # 0.02 10e3/ul Normal 0.00-0.03 [facility] Comment on above: Performed By: #### Althea GTZ #### [facility] [address] [place] [address] Dr. Joe Shea IG % 0.3 % Normal 0.0-0.5 [facility] Comment on above: Performed By: #### Althea GTZ #### [facility] [address] [place] [address] Dr. Joe Shea LYMPH # 1.7 103/ul Normal 1.2-3.8 [facility] Comment on above: Performed By: #### Althea GTZ #### [facility] [address] [place] [address] Dr. Joe Shea Lymphocytes/100 WBC (Bld) 24.6 % Normal 20.5-60.0 [facility] Comment on above: Performed By: #### Althea GTZ #### [facility] [address] [place] [address] Dr. Joe Shea MANUAL DIFF REQ NO Normal [facility] Comment on above: Performed By: #### Althea GTZ #### [facility] [address] [place] [address] Dr. Joe Shea MCH (RBC) [Entitic mass] 28.1 pg Normal 26.7-34.0 [facility] Comment on above: Performed By: #### Althea GTZ #### [facility] [address] [place] [address] Dr. Joe Shea MCHC (RBC) [Mass/Vol] 32.1 g/dL Normal 29.9-35.2 [facility] Comment on above: Performed By: #### Althea GTZ #### [facility] [address] [place] [address] Dr. Joe Shea MCV (RBC) [Entitic vol] 87.6 fL Normal 81.0-99.0 [facility] Comment on above: Performed By: #### Althea GTZ #### [facility] [address] [place] [address] Dr. Joe Shea MONO # 0.4 103/ul Normal 0.3-0.8 [facility] Comment on above: Performed By: #### Althea GTZ #### [facility] [address] [place] [address] Dr. Joe Shea Monocytes/100 WBC (Bld) 5.5 % Normal 1.7-12.0 [facility] Comment on above: Performed By: #### Althea GTZ #### [facility] [address] [place] [address] Dr. Joe Shea NEUT # 4.7 103/ul Normal 1.4-6.5 [facility] Comment on above: Performed By: ###Asiya GTZ #### [facility] [address] [place] [address] Dr. Joe Shea Neutrophils/100 WBC (Bld) 66.3 % Normal 43.0-75.0 [facility] Comment on above: Performed By: ###Asiya GZT #### [facility] [address] [place] [address] Dr. Joe Shea Platelet mean volume (Bld) [Entitic vol] 11.4 fL Normal 9.5-13.5 [facility] Comment on above: Performed By: #### Althea GTZ #### [facility] [address] [place] [address] Dr. Joe Shea PLT 275 103/ul Normal 150-450 [facility] Comment on above: Performed By: #### Althea GTZ #### [facility] [address] [place] [address] Dr. Joe Shea RBC 4.37 106/ul Normal 4.20-5.40 [facility] Comment on above: Performed By: #### Althea GTZ #### [facility] [address] [place] [address] Dr. Joe Shea WBC 7.0 103/ul Normal 4.0-11.0 [facility] Comment on above: Performed By: #### Althea GTZ #### [facility] [address] [place] [address] Dr. Joe Shea PROF 14(COMP METB)on 023 Albumin [Mass/Vol] 4.4 g/dL Normal 3.4-5.0 [facility] Comment on above: Performed By: #### L DAIN #### [facility] [address] [place] [address] Dr. Joe Shea Albumin/Globulin [Mass ratio] 1.4 {ratio} Normal [facility] Comment on above: Performed By: #### L DAIN #### [facility] [address] [place] [address] Dr. Joe Shea ALP [Catalytic activity/Vol] 51 U/L Normal 46-116 [facility] Comment on above: Performed By: #### L DAIN #### [facility] [address] [place] [address] Dr. Joe Shea ALT [Catalytic activity/Vol] 20 U/L Normal 14-59 [facility] Comment on above: Performed By: #### L DAIN #### [facility] [address] [place] [address] Dr. Joe Shea Anion gap [Moles/Vol] 11.7 mmol/L Normal [facility] Comment on above: Performed By: #### L DAIN #### [facility] [address] [place] [address] Dr. Joe Shea AST [Catalytic activity/Vol] 17 U/L Normal 15-37 [facility] Comment on above: Performed By: #### L DAIN #### [facility] [address] [place] [address] Dr. Joe Shea Bilirubin [Mass/Vol] 0.4 mg/dL Normal 0.2-1.0 [facility] Comment on above: Performed By: #### L BCL #### [facility] [address] [place] [address] Dr. Joe Shea Calcium [Mass/Vol] 9.3 mg/dL Normal 8.5-10.1 [facility] Comment on above: Performed By: #### L BCL #### [facility] [address] [address] [address] Joe Shea Chloride [Moles/Vol] 104 mmol/L Normal 98-107 [facility] Comment on above: Performed By: #### L BCL #### [facility] [address] [place] [address] Dr. Joe Shea CO2 [Moles/Vol] 28.5 mmol/L Normal 21.0-32.0 [facility] Comment on above: Performed By: #### L BCL #### [facility] [address] [place] [address] Dr. Joe Shea Creatinine [Mass/Vol] 0.55 mg/dL Normal 0.55-1.02 [facility] Comment on above: Performed By: #### L BCL #### [facility] [address] [place] [address] Dr. Joe Shea EGFR-AF SOMALI >60 Normal >=60 [facility] Comment on above: Performed By: #### L BCL #### [facility] [address] [place] [address] Dr. Joe Shea EGFR-NON AF SOMALI >60 Normal >=60 [facility] Comment on above: Performed By: #### L BCL #### [facility] [address] [place] [address] Dr. Joe Shea Globulin (S) [Mass/Vol] 3.1 g/dL Normal T [facility] Comment on above: Performed By: #### L BCLH #### [facility] [address] [place] [address] Dr. Joe Shea Glucose [Mass/Vol] 90 mg/dL Normal 74-[address] [facility] Comment on above: Performed By: #### L BCLH #### [facility] [address] [address] [address] Joe Shea Potassium [Moles/Vol] 4.2 mmol/L Normal 3.5-5.1 [facility] Comment on above: Performed By: #### L BCLH #### [facility] [address] [address] [address] Joe Shea Protein [Mass/Vol] 7.5 g/dL Normal 6.4-8.[address] [facility] Comment on above: Performed By: #### L BCLH #### [facility] [address] [address] [address] Joe Shea Sodium [Moles/Vol] 140 mmol/L Normal 136-145 [facility] Comment on above: Performed By: #### L BCLH #### [facility] [address] [place] [address] Dr. Joe Shea Urea nitrogen [Mass/Vol] 6.0 mg/dL Critically low 7.0-18. 0 [facility] Comment on above: Performed By: #### L BCLH #### [facility] [address] [place] [address] Dr. Joe Shea Urea nitrogen/Creatinine [Mass ratio] 10.9 mg/mg Normal [facility] Comment on above: Performed By: #### L BCLH #### [facility] [address] [place] [address] Dr. Joe Shea PROTIMEon 09-19-2022 INR Coag (PPP) [Relative time] 1.08 {INR} Normal [facility] Comment on above: Performed By: #### L BCLH #### [facility] [address] [place] [address] Dr. Joe Shea INR GUIDELINES SEE BELOW Normal [facility] Comment on above: Result Comment: CHICA RED INR: 2.0 - 3.0 CONDITIONS NOT LISTED BELOW 2.5 - 3.5 FOR PROSTHETIC HEART VALVE REPLACEMENT 2.5 - 3.5 RECURRENT THROMBOSIS Performed By: #### L BCLH #### [facility] [address] [place] [address] Dr. Joe Shea PT Coag (PPP) [Time] 11.4 s Normal 9.0-11.6 [facility] Comment on above: Performed By: #### L BCLH #### [facility] [address] [place] [address] Dr. Joe Shea TSHon 09-19-2022 TSH 0.957 uIU/mL Normal 0.358-3.740 [facility] Comment on above: Performed By: #### L BCL #### [facility] [address] [place] [address] Dr. Joe Shea Pre-Certification Formon Pre-Certification Form [id number]#1.00CD:127 Normal [facility] Consent for Procedure/Surger yon 07-23-2022 Consent for Procedure/Surgery [id number]#[id number]:127 Normal [facility] Facesheeton 07-19-2022 Facesheet [id number]#[id number]:127 Normal [facility] CBC AUTO DIFFon 07-06-2022 BASO # 0.1 103/ul Normal 0.0-0.1 [facility] Comment on above: Performed By: #### C CARLYN DE JESUS NESTOR #### [facility] [address] [place] [address] Dr. Joe Shea Basophils/100 WBC (Bld) 0.8 % Normal 0.2-2.0 [facility] Comment on above: Performed By: #### C CARLYN DE JESUS NESTOR #### [facility] [address] [place] [address] Dr. Joe Shea EO # 0.4 103/ul Normal 0.0-0.7 [facility] Comment on above: Performed By: #### C CARLYN DE JESUS NESTOR #### [facility] [address] [place] [address] Dr. Joe Shea Eosinophils/100 WBC (Bld) 4.2 % Normal 0.9-7.0 [facility] Comment on above: Performed By: #### C CARLYN DE JESUS, NESTOR #### [facility] [address] [place] [address] Dr. Joe Shea Erythrocyte distribution width (RBC) [Ratio] 13.5 % Normal 11.0-15.0 [facility] Comment on above: Performed By: #### C CARLYN DE JESUS, NESTOR #### [facility] [address] [place] [address] Dr. Joe Shea Hematocrit (Bld) [Volume fraction] 36.8 % Normal 36.0-48.0 [facility] Comment on above: Performed By: #### C CARLYN DE JESUS, NESTOR #### [facility] [address] [place] [address] Dr. Joe Shea Hemoglobin (Bld) [Mass/Vol] 12.2 g/dL Normal 12.0-16.0 [facility] Comment on above: Performed By: #### C CARLYN DE JESUS, NESTOR #### [facility] [address] [place] [address] Dr. Joe Shea IG # 0.02 10e3/ul Normal 0.00-0.03 [facility] Comment on above: Performed By: #### C CARLYN DE JESUS, NESTOR #### [facility] [address] [place] [address] Dr. Joe Shea IG % 0.2 % Normal 0.0-0.5 [facility] Comment on above: Performed By: #### C CARLYN DE JESUS, NESTOR #### [facility] [address] [place] [address] Dr. Joe Shea LYMPH # 2.1 103/ul Normal 1.2-3.8 [facility] Comment on above: Performed By: #### C HUGO DE JESUSA, NESTOR #### [facility] [address] [place] [address] Dr. Joe Shea Lymphocytes/100 WBC (Bld) 20.3 % Critically low 20.5-6 0.0 [facility] Comment on above: Performed By: #### C MP, LIPA, NESTOR #### [facility] [address] [place] [address] Dr. Joe Shea MANUAL DIFF REQ NO Normal [facility] Comment on above: Performed By: #### C MP, LIPA, NESTOR #### [facility] [address] [place] [address] Dr. Joe Shea MCH (RBC) [Entitic mass] 28.6 pg Normal 26.7-34.0 [facility] Comment on above: Performed By: #### C MP, LIPA, NESTOR #### [facility] [address] [place] [address] Dr. Joe Shea MCHC (RBC) [Mass/Vol] 33.2 g/dL Normal 29.9-35.2 [facility] Comment on above: Performed By: #### C MP, LIPA, NESTOR #### [facility] [address] [place] [address] Dr. Joe Shea MCV (RBC) [Entitic vol] 86.4 fL Normal 81.0-99.0 [facility] Comment on above: Performed By: #### C MP, LIPA, NESTOR #### [facility] [address] [place] [address] Dr. Joe Shea MONO # 0.6 103/ul Normal 0.3-0.8 [facility] Comment on above: Performed By: #### C MP, LIPA, NESTOR #### [facility] [address] [place] [address] Dr. oJe Shea Monocytes/100 WBC (Bld) 5.5 % Normal 1.7-12.0 [facility] Comment on above: Performed By: #### C MP, LIPA, NESTOR #### [facility] [address] [place] [address] Dr. Joe Shea NEUT # 7.2 103/ul Critically high 1.4-6.5 [facility] Comment on above: Performed By: #### C MP, LIPA, NESTOR #### [facility] [address] [place] [address] Dr. Joe Shea Neutrophils/100 WBC (Bld) 69.0 % Normal 43.0-75.0 [facility] Comment on above: Performed By: #### C CARLYN DE JESUS AMY #### [facility] [address] [place] [address] Dr. Joe Shea Platelet mean volume (Bld) [Entitic vol] 10.8 fL Normal 9.5-13.5 [facility] Comment on above: Performed By: #### C CARLYN DE JESUS AMY #### [facility] [address] [address] [address] Joe Shea PLT 316 103/ul Normal 150-450 [facility] Comment on above: Performed By: #### C CARLYN DE JESUS, NESTOR #### [facility] [address] [place] [address] Dr. Joe Shea RBC 4.26 106/ul Normal 4.20-5.40 [facility] Comment on above: Performed By: #### C CARLYN DE JESUS, NESTOR #### [facility] [address] [place] [address] Dr. Joe Shea WBC 10.4 103/ul Normal 4.0-11.0 [facility] Comment on above: Performed By: #### C CARLYN DE JESUS AMY #### [facility] [address] [place] [address] Dr. Joe Shea PREG QUANT HCGon 07-06-2022 HCG QUANT <1 Normal [facility] Comment on above: Performed By: #### C CARLYN DE JESUS AMY #### [facility] [address] [place] [address] Dr. Joe Shea HCG RANGE SEE BELOW Normal [facility] Comment on above: Result Comment: 5-50 0.2-1 WEEK 50-500 1-2 WEEKS 100-5,000 2-3 WEEKS 500-10,000 3-4 WEEKS 1,000-50,000 4-5 WEEKS 10,000-100,000 5-6 WEEKS 15,000-200,000 6-8 WEEKS 10,000-100,000 2-3 MONTHS Performed By: #### C CARLYN DE JESUS AMY #### [facility] [address] [place], [place] [address] Dr. Joe Shea HEPATITIS C ANTIBODYon 06-26 Hep C Virus Ab <0.1 Normal 0.0-0.[address] [facility] Comment on above: Result Comment: Nega [...] Hepatitis C Virus (HCV) RNA, Diagnosis, MEGAN (879540) and Hepatitis C Virus (HCV) Antibody with reflex to Quantitative Real-time PCR ([id number]). Performed By: #### L BCL #### [facility] [address] [place], [place] [address] Dr. Joe Shea Covid-19 PCR (CVDTB)on 05-31 SARS-CoV-2 (COVID-19) RNA MEGAN+probe Ql (Unsp spec) Not detected Normal NOT DETECTED [facility] Comment on above: Result Comment: This test is not yet approved or cleared by the [place] FDA. When there are no FDA-approved or cleared tests available, and other criteria are met, FDA can make tests available under an emergency access mechanism called an Emergency Use Authorization (EUA). The EUA for this test is supported by the [place] of Health and Human Service's (HHS's) declaration [...] consistent with SARS-CoV-2. Performed By: #### C VDTB #### [facility] [address] [place], [place] [address] Dr. Joe Shea HEP B SURFACE ANTIGEN SCREEN on 06-12-2022 HBsAg Screen Negative Normal Negative [facility] Comment on above: Performed By: #### D TRESA #### [facility] [address] [address] [address] Joe Shea HIV 1 AND 2 WITH REFLEXon HIV Screen 4th Generation wRfx Non-Reactive Normal Non Reactive [facility] Comment on above: Result Comment: HIV Negative HIV-1/HIV-2 antibodies and HIV-1 p24 antigen were NOT detected. There is no laboratory evidence of HIV infection. Performed By: #### C CARLYN DE JESUS, NESTOR #### [facility] [address] [address] [address] Joe Shea RPR QUANTon 06-12-2022 Rapid Plasma Reagin, Quant Non-Reactive Normal NonRea< 1:1 [facility] Comment on above: Result Comment: Plea se Note: This test does not meet current guidelines for screening and diagnosis of syphilis. This test is intended for following treatment response in patients being treated for syphilis infection. To screen for syphilis infection, a reflex cascade that includes both RPR and a treponema-specific assay should be utilized, such as Treponema pallidum (Syphilis) Screening [place] (664003) or Rapid Plasma Reagin (RPR) Test With Reflex to Quantitative RPR and Confirmatory Treponema pallidum Antibodies ([id number]). Performed By: #### C CARLYN DE JESUS AMY #### [facility] [address] [address] [address] Joe Shea Physician Referralon 022 Physician Referral [id number]:127 Normal [facility] US PELVIS AND TRANSVAGon US PELVIS [...] 2022-05-31 17:18 Normal [facility] AMYLASEon 05-23-2022 Amylase [Catalytic activity/Vol] 24 U/L Critically low 25-115 [facility] Comment on above: Performed By: #### C CARLYN DE JESUS AMY #### [facility] [address] [place] [address] Dr. Joe Shea CBC AUTO DIFFon 05-23-2022 Eosinophils/100 WBC (Bld) 1.5 % Normal 0.9-7.0 [facility] Comment on above: Performed By: #### L BCLH #### [facility] [address] [address] [address] Joe Shea Erythrocyte distribution width (RBC) [Ratio] 13.5 % Normal 11.0-15.0 [facility] Comment on above: Performed By: #### L BCL #### [facility] [address] [address] [address] Joe Shea Hematocrit (Bld) [Volume fraction] 33.0 % Critically low 36.0-48.0 [facility] Comment on above: Performed By: #### L BCLH #### [facility] [address] [address] [address] Joe Shea Hemoglobin (Bld) [Mass/Vol] 10.7 g/dL Critically low 12.0-16.0 [facility] Comment on above: Performed By: #### L BCLH #### [facility] [address] [address] [address] Joe Shea LYMPH # 1.2 103/ul Normal 1.2-3.8 [facility] Comment on above: Performed By: #### L BCLH #### [facility] [address] [place] [address] Dr. Joe Shea Lymphocytes/100 WBC (Bld) 20.2 % Critically low 20.5-6 0.0 [facility] Comment on above: Performed By: #### L BCLH #### [facility] [address] [place] [address] Dr. Joe Shea MCH (RBC) [Entitic mass] 28.0 pg Normal 26.7-34.0 [facility] Comment on above: Performed By: #### L BCLH #### [facility] [address] [place] [address] Dr. Joe Shea MCHC (RBC) [Mass/Vol] 32.4 g/dL Normal 29.9-35.2 [facility] Comment on above: Performed By: #### L BCLH #### [facility] [address] [place] [address] Dr. Joe Shea Monocytes/100 WBC (Bld) 7.9 % Normal 1.7-12.0 [facility] Comment on above: Performed By: #### L BCL #### [facility] [address] [place] [address] Dr. Joe Shea Neutrophils/100 WBC (Bld) 69.9 % Normal 43.0-75.0 [facility] Comment on above: Performed By: #### L BCLH #### [facility] [address] [place] [address] Dr. Joe Shea Platelet mean volume (Bld) [Entitic vol] 10.6 fL Normal 9.5-13.5 [facility] Comment on above: Performed By: #### L BCLH #### [facility] [address] [place] [address] Dr. Joe Shea PLT 233 103/ul Normal 150-450 [facility] Comment on above: Performed By: #### L BCLH #### [facility] [address] [place] [address] Dr. Joe hSea RBC 3.82 106/ul Critically low 4.20-5.40 [facility] Comment on above: Performed By: #### L BCLH #### [facility] [address] [place] [address] Dr. Joe Shea WBC 6.1 103/ul Normal 4.0-11.0 [facility] Comment on above: Performed By: #### L BCLH #### [facility] [address] [place] [address] Dr. Joe Shea BASO # 0.0 103/ul Normal 0.0-0.1 [facility] Comment on above: Performed By: #### L BCLH #### [facility] [address] [place] [address] Dr. Joe Shea Performed By: #### C MP, LIPA, NESTOR #### [facility] [address] [place] [address] Dr. Joe Shea Basophils/100 WBC (Bld) 0.3 % Normal 0.2-2.0 [facility] Comment on above: Performed By: #### L BCLH #### [facility] [address] [place] [address] Dr. Joe Shea Performed By: #### C MP, LIPA, NESTOR #### [facility] [address] [place] [address] Dr. Joe Shea EO # 0.1 103/ul Normal 0.0-0.7 [facility] Comment on above: Performed By: #### L BCLH #### [facility] [address] [place] [address] Dr. Joe Shea Performed By: #### C MP, LIPA, NESTOR #### [facility] [address] [place] [address] Dr. Joe Shea Eosinophils/100 WBC (Bld) 1.9 % Normal 0.9-7.0 [facility] Comment on above: Performed By: #### C MP, LIPA, NESTOR #### [facility] [address] [place] [address] Dr. Joe Shea Erythrocyte distribution width (RBC) [Ratio] 13.4 % Normal 11.0-15.0 [facility] Comment on above: Performed By: #### C CARLYN DE JESUS AMY #### [facility] [address] [place] [address] Dr. Joe Shea Hematocrit (Bld) [Volume fraction] 32.3 % Critically low 36.0-48.0 [facility] Comment on above: Performed By: #### C CARLYN DE JESUS NESTOR #### [facility] [address] [place] [address] Dr. Joe Shea Hemoglobin (Bld) [Mass/Vol] 10.6 g/dL Critically low 12.0-16.0 [facility] Comment on above: Performed By: #### C CARLYN DE JESUS AMY #### [facility] [address] [place] [address] Dr. Joe Shea IG # 0.01 10e3/ul Normal 0.00-0.03 [facility] Comment on above: Performed By: #### L BCL #### [facility] [address] [place] [address] Dr. Joe Shea Performed By: #### C CARLYN DE JESUS AMY #### [facility] [address] [place] [address] Dr. Joe Shea IG % 0.2 % Normal 0.0-0.5 [facility] Comment on above: Performed By: #### L BCLH #### [facility] [address] [place] [address] Dr. Joe Shea Performed By: #### C CARLYN DE JESUS, NESTOR #### [facility] [address] [place] [address] Dr. Joe Shea LYMPH # 1.0 103/ul Critically low 1.2-3.[address] [facility] Comment on above: Performed By: #### C CARLYN DE JESUS, NESTOR #### [facility] [address] [place] [address] Dr. Joe Shea Lymphocytes/100 WBC (Bld) 16.6 % Critically low 20.5-6 0.0 [facility] Comment on above: Performed By: #### C MP, LIPA, NESTOR #### [facility] [address] [place] [address] Dr. Joe Shea MANUAL DIFF REQ NO Normal [facility] Comment on above: Performed By: #### L BCLH #### [facility] [address] [place] [address] Dr. Joe Shea Performed By: #### C MP, LIPA, NESTOR #### [facility] [address] [place] [address] Dr. Joe Shea MCH (RBC) [Entitic mass] 28.3 pg Normal 26.7-34.0 [facility] Comment on above: Performed By: #### C MP, LIPA, NESTOR #### [facility] [address] [place] [address] Dr. Joe Shea MCHC (RBC) [Mass/Vol] 32.8 g/dL Normal 29.9-35.2 [facility] Comment on above: Performed By: #### C MP, LIPA, NESTOR #### [facility] [address] [place] [address] Dr. Joe Shea MCV (RBC) [Entitic vol] 86.4 fL Normal 81.0-99.0 [facility] Comment on above: Performed By: #### L BCLH #### [facility] [address] [place] [address] Dr. Joe Shea Performed By: #### C MP, LIPA, NESTOR #### [facility] [address] [place] [address] Dr. Joe Shea MONO # 0.5 103/ul Normal 0.3-0.8 [facility] Comment on above: Performed By: #### L BCLH #### [facility] [address] [place] [address] Dr. Joe Shea Performed By: #### C MP, LIPA, NESTOR #### [facility] [address] [place] [address] Dr. Joe Shea Monocytes/100 WBC (Bld) 9.1 % Normal 1.7-12.0 [facility] Comment on above: Performed By: #### C NEAL LIPA, NESTOR #### [facility] [address] [place] [address] Dr. Joe Shea NEUT # 4.3 103/ul Normal 1.4-6.5 [facility] Comment on above: Performed By: #### L DAIN #### [facility] [address] [place] [address] Dr. Joe Shea Performed By: #### C NEAL LIPA, NESTOR #### [facility] [address] [place] [address] Dr. Joe Shea Neutrophils/100 WBC (Bld) 71.9 % Normal 43.0-75.0 [facility] Comment on above: Performed By: #### C NEAL LIPA, NESTOR #### [facility] [address] [place] [address] Dr. Joe Shea Platelet mean volume (Bld) [Entitic vol] 11.0 fL Normal 9.5-13.5 [facility] Comment on above: Performed By: #### C NEAL LIPA, NESTOR #### [facility] [address] [place] [address] Dr. Joe Shea PLT 224 103/ul Normal 150-450 [facility] Comment on above: Performed By: #### C NEAL LIPA, NESTOR #### [facility] [address] [place] [address] Dr. Joe Shea RBC 3.74 106/ul Critically low 4.20-5.40 [facility] Comment on above: Performed By: #### C MP, LIPA, NESTOR #### [facility] [address] [place] [address] Dr. Joe Shea WBC 5.9 103/ul Normal 4.0-11.0 [facility] Comment on above: Performed By: #### C NEAL LIPA, NESTOR #### [facility] [address] [place] [address] Dr. Joe Shea ER URINE PROFILEon 2 Bilirubin Ql (U) Negative Normal NEGATIVE [facility] Comment on above: Performed By: #### L BCL #### [facility] [address] [place] [address] Dr. Joe Shea Clarity (U) CLEAR Normal CLEAR [facility] Comment on above: Performed By: #### L BCLH #### [facility] [address] [place] [address] Dr. Joe Shea Color (U) LT. YELLOW Normal YELLOW [facility] Comment on above: Performed By: #### L BCLH #### [facility] [address] [place] [address] Dr. Joe YUNG A micrscopic examination will be performed if indicated. Normal [facility] Comment on above: Performed By: #### L BCLH #### [facility] [address] [place] [address] Dr. Joe Shea Glucose Ql (U) Negative Normal NEGATIVE The [facility] Comment on above: Performed By: #### L BCLH #### [facility] [address] [place] [address] Dr. Joe Shea Hemoglobin Ql (U) Negative Normal NEGATIVE [facility] Comment on above: Performed By: #### L BCL #### [facility] [address] [place] [address] Dr. Joe Shea Ketones Ql (U) Negative Normal NEGATIVE [facility] Comment on above: Performed By: #### L BCLH #### [facility] [address] [place] [address] Dr. Joe Shea LEUKOCYTES Negative Normal NEGATIVE [facility] Comment on above: Performed By: #### L BCLH #### [facility] [address] [place] [address] Dr. Joe Shea Nitrite Ql (U) Negative Normal NEGATIVE [facility] Comment on above: Performed By: #### L BCLH #### [facility] [address] [place] [address] Dr. Joe Shea pH (U) 5.5 [pH] Normal 5-9 [facility] Comment on above: Performed By: #### L BCLH #### [facility] [address] [place] [address] Dr. Joe Shea SPEC GRAVITY 1.020 Normal 1.005-<=1.02 5 [facility] Comment on above: Performed By: #### L [facility] #### [facility] [address] [place] [address] Dr. Joe Shea UA PROTEIN Negative Normal NEGATIVE/ TRACE [facility] Comment on above: Performed By: #### L [facility] #### [facility] [address] [place] [address] Dr. Joe Shea UR MICRO IND NOT INDICATED Normal [facility] Comment on above: Performed By: #### L [facility] #### [facility] [address] [place] [address] Dr. Joe Shea Urobilinogen Qn (U) 0.2 {Pascual'U}/dL Normal 0.2 - 1. 0 [facility] Comment on above: Performed By: #### L [facility] #### [facility] [address] [place] [address] Dr. Joe Shea LIPASEon 05-23-2022 Lipase [Catalytic activity/Vol] 63.0 U/L Critically low 73.0-393.0 [facility] Comment on above: Performed By: #### C CARLYN DE JESUS AMY #### [facility] [address] [place] [address] Dr. Joe Shea URon 05-23-2022 , QUAL Negative Normal NEGATIVE [facility] Comment on above: Performed By: #### C BC #### [facility] [address] [place] [address] Dr. Joe Shea PROF 14(COMP METB)on 022 Albumin [Mass/Vol] 3.7 g/dL Normal 3.4-5.[address] [facility] Comment on above: Performed By: #### C CARLYN DE JESUS AMY #### [facility] [address] [place] [address] Dr. Joe Shea Albumin/Globulin [Mass ratio] 1.4 {ratio} Normal [facility] Comment on above: Performed By: #### C CARLYN DE JESUS AMY #### [facility] [address] [address] [address] Joe Shea ALP [Catalytic activity/Vol] 44 U/L Critically low 46-116 [facility] Comment on above: Performed By: #### C MP LIPA, NESTOR #### [facility] [address] [address] [address] Joe Shea ALT [Catalytic activity/Vol] 24 U/L Normal 14-59 [facility] Comment on above: Performed By: #### C MP, LIPA, NESTOR #### [facility] [address] [place] [address] Dr. Joe Shea Anion gap [Moles/Vol] 9.1 mmol/L Normal [facility] Comment on above: Performed By: #### C MP LIPA, NESTOR #### [facility] [address] [place] [address] Dr. Joe Shea AST [Catalytic activity/Vol] 18 U/L Normal 15-37 [facility] Comment on above: Performed By: #### C MP LIPA, NESTOR #### [facility] [address] [place] [address] Dr. Joe Shea Bilirubin [Mass/Vol] 0.2 mg/dL Normal 0.2-1.0 [facility] Comment on above: Performed By: #### C MP, LIPA, NESTOR #### [facility] [address] [place] [address] Dr. Joe Shea Calcium [Mass/Vol] 8.3 mg/dL Critically low 8.5-10.1 [facility] Comment on above: Performed By: #### C MP, LIPA, NESTOR #### [facility] [address] [place] [address] Dr. Joe Shea Chloride [Moles/Vol] 105 mmol/L Normal 98-107 [facility] Comment on above: Performed By: #### C MP, LIPA, NESTOR #### [facility] [address] [place] [address] Dr. Joe Shea CO2 [Moles/Vol] 29.7 mmol/L Normal 21.0-32.0 [facility] Comment on above: Performed By: #### C MP, LIPA, NESTOR #### [facility] [address] [address] [address] Joe Shea Creatinine [Mass/Vol] 0.61 mg/dL Normal 0.55-1.02 [facility] Comment on above: Performed By: #### C MP, LIPA, NESTOR #### [facility] [address] [address] [address] Joe Shea EGFR-AF SOMALI >60 Normal >=60 [facility] Comment on above: Performed By: #### C MP, LIPA, NESTOR #### [facility] [address] [address] [address] Joe Shea EGFR-NON AF SOMALI >60 Normal >=60 [facility] Comment on above: Performed By: #### C MP, LIPA, NESTOR #### [facility] [address] [address] [address] Joe Shea Globulin (S) [Mass/Vol] 2.6 g/dL Normal T [facility] Comment on above: Performed By: #### C MP, LIPA, NESTOR #### [facility] [address] [address] [address] Joe Shea Glucose [Mass/Vol] 92 mg/dL Normal 74-106 [facility] Comment on above: Performed By: #### C MP, LIPA, NESTOR #### [facility] [address] [address] [address] Joe Shea Potassium [Moles/Vol] 3.8 mmol/L Normal 3.5-5.1 [facility] Comment on above: Performed By: #### C MP, LIPA, NESTOR #### [facility] [address] [address] [address] Joe Shea Protein [Mass/Vol] 6.3 g/dL Critically low 6.4-8.2 [facility] Comment on above: Performed By: #### C MP, LIPA, NESTOR #### [facility] [address] [address] [address] Joe Shea Sodium [Moles/Vol] 140 mmol/L Normal 136-145 [facility] Comment on above: Performed By: #### C MP, LIPA, NESTOR #### [facility] [address] [address] [address] Joe Shea Urea nitrogen [Mass/Vol] 9.0 mg/dL Normal 7.0-18.0 [facility] Comment on above: Performed By: #### C MP, LIPA, NESTOR #### [facility] [address] [address] [address] Joe Shea Urea nitrogen/Creatinine [Mass ratio] 14.8 mg/mg Normal [facility] Comment on above: Performed By: #### C MP, LIPA, NESTOR #### [facility] [address] [address] [address] Joe Shea US SINGLE QUAD RT [...] by: SHIRLEY PATEL Date: 2022-05-23 08:29 Normal [facility] AMYLASEon 05-22-2022 Amylase [Catalytic activity/Vol] 50 U/L Normal 25-115 [facility] Comment on above: Performed By: #### A MY, CMP, LIPA #### [facility] [address] [address] [address] Joe Shea CBC AUTO DIFFon 05-22-2022 BASO # 0.1 103/ul Normal 0.0-0.1 [facility] Comment on above: Performed By: #### C CARLYN DE JESUS AMY #### [facility] [address] [place] [address] Dr. Joe Shea Basophils/100 WBC (Bld) 0.3 % Normal 0.2-2.0 [facility] Comment on above: Performed By: #### C CARLYN DE JESUS, NESTOR #### [facility] [address] [place] [address] Dr. Joe Shea EO # 0.0 103/ul Normal 0.0-0.7 [facility] Comment on above: Performed By: #### C CARLYN DE JESUS, NESTOR #### [facility] [address] [place] [address] Dr. Joe Shea Eosinophils/100 WBC (Bld) 0.2 % Critically low 0.9-7. 0 [facility] Comment on above: Performed By: #### C CARLYN DE JESUS, NESTOR #### [facility] [address] [place] [address] Dr. Joe Shea Erythrocyte distribution width (RBC) [Ratio] 13.3 % Normal 11.0-15.0 [facility] Comment on above: Performed By: #### C CARLYN DE JESUS, NESTOR #### [facility] [address] [place] [address] Dr. Joe Shea Hematocrit (Bld) [Volume fraction] 39.0 % Normal 36.0-48.0 [facility] Comment on above: Performed By: #### C CARLYN DE JESUS, NESTOR #### [facility] [address] [place] [address] Dr. Joe Shea Hemoglobin (Bld) [Mass/Vol] 12.7 g/dL Normal 12.0-16.0 [facility] Comment on above: Performed By: #### C CARLYN DE JESUS, NESTOR #### [facility] [address] [place] [address] Dr. Joe Shea IG # 0.05 10e3/ul Critically high 0.00-0.03 [facility] Comment on above: Performed By: #### C MP, LIPA, NESTOR #### [facility] [address] [place] [address] Dr. Joe Shea IG % 0.3 % Normal 0.0-0.5 [facility] Comment on above: Performed By: #### C MP, LIPA, NESTOR #### [facility] [address] [place] [address] Dr. Joe Shea LYMPH # 0.8 103/ul Critically low 1.2-3.8 [facility] Comment on above: Performed By: #### C MP, LIPA, NESTOR #### [facility] [address] [place] [address] Dr. Joe Shea Lymphocytes/100 WBC (Bld) 4.4 % Critically low 20.5-6 0.0 [facility] Comment on above: Performed By: #### C MP, LIPA, NESTOR #### [facility] [address] [place] [address] Dr. Joe Shea MANUAL DIFF REQ NO Normal [facility] Comment on above: Performed By: #### C MP, LIPA, NESTOR #### [facility] [address] [place] [address] Dr. Joe Shea MCH (RBC) [Entitic mass] 28.1 pg Normal 26.7-34.0 [facility] Comment on above: Performed By: #### C MP, LIPA, NESTOR #### [facility] [address] [place] [address] Dr. Joe Shea MCHC (RBC) [Mass/Vol] 32.6 g/dL Normal 29.9-35.2 [facility] Comment on above: Performed By: #### C MP, LIPA, NESTOR #### [facility] [address] [place] [address] Dr. Joe Shea MCV (RBC) [Entitic vol] 86.3 fL Normal 81.0-99.0 [facility] Comment on above: Performed By: #### C MP, LIPA, NESTOR #### [facility] [address] [place] [address] Dr. Joe Shea MONO # 0.4 103/ul Normal 0.3-0.8 [facility] Comment on above: Performed By: #### C CARLYN DE JESUS AMY #### [facility] [address] [place] [address] Dr. Joe Seha Monocytes/100 WBC (Bld) 2.2 % Normal 1.7-12.0 [facility] Comment on above: Performed By: #### C CRALYN DE JESUS, NESTOR #### [facility] [address] [place] [address] Dr. Joe Shea NEUT # 16.7 103/ul Critically high 1.4-6.5 [facility] Comment on above: Performed By: #### C CARLYN DE JESUS, NESTOR #### [facility] [address] [place] [address] Dr. Joe Shea Neutrophils/100 WBC (Bld) 92.6 % Critically high 43.0- 75.0 [facility] Comment on above: Performed By: #### C CARLYN DE JESUS, NESTOR #### [facility] [facility] [address] [place] [address] Dr. Joe Shea Platelet mean volume (Bld) [Entitic vol] 11.0 fL Normal 9.5-13.5 [facility] Comment on above: Performed By: #### C CARLYN DE JESUS, NESTOR #### [facility] [address] [place] [address] Dr. Joe Shea PLT 323 103/ul Normal 150-450 [facility] Comment on above: Performed By: #### C CARLYN DE JESUS, NESTOR #### [facility] [address] [place] [address] Dr. Joe Shea RBC 4.52 106/ul Normal 4.20-5.40 [facility] Comment on above: Performed By: #### C HUGO DE JESUSA, NESTOR #### [facility] [address] [place] [address] Dr. Joe Shea WBC 18.0 103/ul Critically high 4.0-11.0 The [facility] Comment on above: Performed By: #### C MP, LIPA, NESTOR #### [facility] [address] [address] [address] Joe MOORE URINE PROFILEon 2 Bilirubin Ql (U) Negative Normal NEGATIVE The [facility] Comment on above: Performed By: #### Althea DURÁNUL #### [facility] [address] [address] [address] Joe Shea Clarity (U) CLEAR Normal CLEAR [facility] Comment on above: Performed By: #### Althea DURÁNUL #### [facility] [address] [address] [address] Joe Shea Color (U) YELLOW Normal YELLOW [facility] Comment on above: Performed By: #### Althea GTZ #### [facility] [address] [address] [address] Joe YUNG A micrscopic examination will be performed if indicated. Normal [facility] Comment on above: Performed By: #### Althea GTZ #### [facility] [address] [address] [address] Joe Shea Glucose Ql (U) Negative Normal NEGATIVE The [facility] Comment on above: Performed By: #### Althea GTZ #### [facility] [address] [address] [address] Joe Shea Hemoglobin Ql (U) Negative Normal NEGATIVE [facility] Comment on above: Performed By: #### Althea GTZ #### [facility] [address] [address] [address] Joe Shea Ketones Ql (U) 15 mg/dl Abnormal NEGATIVE The [facility] Comment on above: Performed By: #### Althea GTZ #### [facility] [address] [address] [address] Joe Shea LEUKOCYTES Negative Normal NEGATIVE [facility] Comment on above: Performed By: #### Althea GTZ #### [facility] [address] [address] [address] Joe Shea Nitrite Ql (U) Negative Normal NEGATIVE [facility] Comment on above: Performed By: #### Althea GTZ #### [facility] [address] [address] [address] Joe Shea pH (U) 5.5 [pH] Normal 5-9 [facility] Comment on above: Performed By: #### Althea GTZ #### [facility] [address] [place] [address] Dr. Joe Shea SPEC GRAVITY >=1.030 Abnormal 1.005-<=1.[address] [place] [address] Comment on above: Performed By: #### Althea GTZ #### [facility] [address] [place] [address] Dr. Joe Shea UA PROTEIN Negative Normal NEGATIVE/ TRACE [facility] Comment on above: Performed By: #### Althea GTZ #### [facility] [address] [place] [address] Dr. Joe Shea UR MICRO IND NOT INDICATED Normal [facility] Comment on above: Performed By: #### Althea GTZ #### [facility] [address] [place] [address] Dr. Joe Shea Urobilinogen Qn (U) 1.0 {Pascual'U}/dL Normal 0.2 - 1. 0 [facility] Comment on above: Performed By: #### Althea GTZ #### [facility] [address] [place] [address] Dr. Joe Shea LACTATE/LACTIC ACIDon 2021 Lactate [Moles/Vol] 1.0 mmol/L Normal 0.4-1.9 [facility] Comment on above: Performed By: #### C BC #### [facility] [address] [place] [address] Dr. Joe Shea LIPASEon 05-22-2022 Lipase [Catalytic activity/Vol] 205.0 U/L Normal 73.0-393.0 [facility] Comment on above: Performed By: #### A MY, CMP, LIPA #### [facility] [address] [place] [address] Dr. Joe Shea MRI BRAIN WO CONon 2 MRI BRAIN WO CON EXAM: MRI BRAIN [...] 2022-05-22 16:17 Normal [facility] URon 05-22-2022 , QUAL Negative Normal NEGATIVE The [facility] Comment on above: Performed By: #### Althea GTZ #### [facility] [address] [place] [address] Dr. Joe Shea PROF 14(COMP METB)on 022 Albumin [Mass/Vol] 4.5 g/dL Normal 3.4-5.0 [facility] Comment on above: Performed By: #### Althea GTZ #### [facility] [address] [place] [address] Dr. Joe Shea Albumin/Globulin [Mass ratio] 1.4 {ratio} Normal [facility] Comment on above: Performed By: #### Althea GTZ #### [facility] [address] [place] [address] Dr. Joe Shea ALP [Catalytic activity/Vol] 60 U/L Normal 46-116 [facility] Comment on above: Performed By: #### Althea GTZ #### [facility] [address] [place] [address] Dr. Joe Shea ALT [Catalytic activity/Vol] 17 U/L Normal 14-59 [facility] Comment on above: Performed By: #### Althea GTZ #### [facility] [address] [place] [address] Dr. Joe Shea Anion gap [Moles/Vol] 10.9 mmol/L Normal Th [facility] Comment on above: Performed By: #### Althea GTZ #### [facility] [address] [address] [address] Joe Shea AST [Catalytic activity/Vol] 19 U/L Normal 15-37 [facility] Comment on above: Performed By: #### Althea GTZ #### [facility] [address] [address] [address] Joe Shea Bilirubin [Mass/Vol] 0.8 mg/dL Normal 0.2-1.0 [facility] Comment on above: Performed By: #### Althea GTZ #### [facility] [address] [place] [address] Dr. Joe Shea Calcium [Mass/Vol] 9.0 mg/dL Normal 8.5-10.1 [facility] Comment on above: Performed By: #### Althea GTZ #### [facility] [address] [address] [address] Joe Shea Chloride [Moles/Vol] 102 mmol/L Normal 98-107 [facility] Comment on above: Performed By: #### Althea GTZ #### [facility] [address] [place] [address] Dr. Joe Shea CO2 [Moles/Vol] 28.7 mmol/L Normal 21.0-32.0 [facility] Comment on above: Performed By: #### Althea GTZ #### [facility] [address] [place] [address] Dr. Joe Shea Creatinine [Mass/Vol] 0.73 mg/dL Normal 0.55-1.02 [facility] Comment on above: Performed By: #### Althea GTZ #### [facility] [address] [place] [address] Dr. Joe Shea EGFR-AF SOMALI >60 Normal >=60 [facility] Comment on above: Performed By: #### Althea GTZ #### [facility] [address] [place] [address] Dr. Joe Shea EGFR-NON AF SOMALI >60 Normal >=60 [facility] Comment on above: Performed By: #### Althea GTZ #### [facility] [address] [address] [address] Joe Shea Globulin (S) [Mass/Vol] 3.2 g/dL Normal [facility] Comment on above: Performed By: #### Althea GTZ #### [facility] [address] [address] [address] Joe Shea Glucose [Mass/Vol] 113 mg/dL Critically high 74-106 [facility] Comment on above: Performed By: #### Althea GTZ #### [facility] [address] [place] [address] Dr. Joe Shea Potassium [Moles/Vol] 3.6 mmol/L Normal 3.5-5.1 [facility] Comment on above: Performed By: #### Althea GTZ #### [facility] [address] [place] [address] Dr. Joe Shea Protein [Mass/Vol] 7.7 g/dL Normal 6.4-8.2 [facility] Comment on above: Performed By: #### Althea GTZ #### [facility] [address] [place] [address] Dr. Joe Shea Sodium [Moles/Vol] 138 mmol/L Normal 136-[address] [facility] Comment on above: Performed By: #### Althea GTZ #### [facility] [address] [place] [address] Dr. Joe Shea Urea nitrogen [Mass/Vol] 9.0 mg/dL Normal 7.0-18.0 [facility] Comment on above: Performed By: #### Althea GTZ #### [facility] [address] [place] [address] Dr. Joe Shea Urea nitrogen/Creatinine [Mass ratio] 12.3 mg/mg Normal [facility] Comment on above: Performed By: #### Althea GTZ #### [facility] [address] [place] [address] Dr. Joe Shea XR CHEST 2 Von [...] COTE Date: 2022-05-22 02:56 Normal [facility] PROGESTERONEon 05-08-2022 Progesterone 18.1 ng/mL Normal [facility] Comment on above: Result Comment: Foll icular phase 0.1 - 0.9 Luteal phase 1.8 - 23.9 Ovulation phase 0.1 - 12.0 First trimester 11.0 - 44.3 Second trimester 25.4 - 83.3 Third trimester 58.7 - 214.0 Postmenopausal 0.0 - 0.1 Performed By: #### C BC #### [facility] [address] [address] [address] Joe Shea DHEA SERUMon 04-12-2022 Dehydroepiandrosterone (DHEA) 577 ng/dL Normal 31-701 [facility] Comment on above: Result Comment: Age 1 - 5 years 0 - 67 6 - 7 years 0 - 110 8 - 10 years 0 - 185 11 - 12 years 0 - 201 13 - 14 years 0 - 318 15 - 16 years 39 - 481 17 - 19 years 40 - 491 >19 years 31 - 701 Performed By: #### C BC #### [facility] [address] [address] [address] Joe Shea PROGESTERONEon 04-10-2022 Progesterone 16.0 ng/mL Normal [facility] Comment on above: Result Comment: Foll icular phase 0.1 - 0.9 Luteal phase 1.8 - 23.9 Ovulation phase 0.1 - 12.0 First trimester 11.0 - 44.3 Second trimester 25.4 - 83.3 Third trimester 58.7 - 214.0 Postmenopausal 0.0 - 0.1 Performed By: #### D TRESA #### [facility] [address] [place] [address] Dr. Joe Shea DHEA-SULFATEon 04-06-2022 DHEA-Sulfate 241.0 ug/dL Normal 110.0-431.7 [facility] Comment on above: Performed By: #### Althea GTZ #### [facility] [address] [place] [address] Dr. Joe Shea FSHon 04-06-2022 FSH 6.6 mIU/mL Normal [facility] Comment on above: Result Comment: Adul t Female: Follicular phase 3.5 - 12.5 Ovulation phase 4.7 - 21.5 Luteal phase 1.7 - 7.7 Postmenopausal 25.8 - 134.8 Performed By: #### Althea GTZ #### [facility] [address] [place] [address] Dr. Joe Shea LUTEINIZING HORMONE (LH)on LH 19.8 mIU/mL Normal [facility] Comment on above: Result Comment: Adul t Female: Follicular phase 2.4 - 12.6 Ovulation phase 14.0 - 95.6 Luteal phase 1.0 - 11.4 Postmenopausal 7.7 - 58.5 Performed By: #### L BCL #### [facility] [address] [place] [address] Dr. Joe Shea CBC AUTO DIFFon 04-05-2022 BASO # 0.1 103/ul Normal 0.0-0.1 [facility] Comment on above: Performed By: #### C BC #### [facility] [address] [place] [address] Dr. Joe Shea Basophils/100 WBC (Bld) 0.9 % Normal 0.2-2.0 [facility] Comment on above: Performed By: #### C BC #### [facility] [address] [place] [address] Dr. Joe Shea EO # 0.2 103/ul Normal 0.0-0.7 [facility] Comment on above: Performed By: #### C BC #### [facility] [address] [place] [address] Dr. Joe Shea Eosinophils/100 WBC (Bld) 2.6 % Normal 0.9-7.0 [facility] Comment on above: Performed By: #### C BC #### [facility] [address] [place] [address] Dr. Joe Shea Erythrocyte distribution width (RBC) [Ratio] 13.1 % Normal 11.0-15.0 [facility] Comment on above: Performed By: #### C BC #### [facility] [address] [place] [address] Dr. Joe Shea Hematocrit (Bld) [Volume fraction] 38.2 % Normal 36.0-48.0 [facility] Comment on above: Performed By: #### C BC #### [facility] [address] [place] [address] Dr. Joe Shea Hemoglobin (Bld) [Mass/Vol] 12.3 g/dL Normal 12.0-16.0 [facility] Comment on above: Performed By: #### C BC #### [facility] [address] [place] [address] Dr. Joe Shea IG # 0.01 10e3/ul Normal 0.00-0.03 [facility] Comment on above: Performed By: #### C BC #### [facility] [address] [place] [address] Dr. Joe Shea IG % 0.2 % Normal 0.0-0.5 [facility] Comment on above: Performed By: #### C BC #### [facility] [address] [place] [address] Dr. Joe Shea LYMPH # 1.7 103/ul Normal 1.2-3.8 [facility] Comment on above: Performed By: #### C BC #### [facility] [address] [place] [address] Dr. Joe Shea Lymphocytes/100 WBC (Bld) 29.2 % Normal 20.5-60.0 [facility] Comment on above: Performed By: #### C BC #### [facility] [address] [place] [address] Dr. Joe Shea MANUAL DIFF REQ NO Normal [facility] Comment on above: Performed By: #### C BC #### [facility] [address] [place] [address] Dr. Joe Shea MCH (RBC) [Entitic mass] 28.4 pg Normal 26.7-34.0 [facility] Comment on above: Performed By: #### C BC #### [facility] [address] [place] [address] Dr. Joe Shea MCHC (RBC) [Mass/Vol] 32.2 g/dL Normal 29.9-35.2 [facility] Comment on above: Performed By: #### C BC #### [facility] [address] [place] [address] Dr. Joe Shea MCV (RBC) [Entitic vol] 88.2 fL Normal 81.0-99.0 [facility] Comment on above: Performed By: #### C BC #### [facility] [address] [place] [address] Dr. Joe Shea MONO # 0.5 103/ul Normal 0.3-0.8 [facility] Comment on above: Performed By: #### C BC #### [facility] [address] [place] [address] Dr. Joe Shea Monocytes/100 WBC (Bld) 8.2 % Normal 1.7-12.0 [facility] Comment on above: Performed By: #### C BC #### [facility] [address] [place] [address] Dr. Joe Shea NEUT # 3.4 103/ul Normal 1.4-6.5 [facility] Comment on above: Performed By: #### C BC #### [facility] [address] [place] [address] Dr. Joe Shea Neutrophils/100 WBC (Bld) 58.9 % Normal 43.0-75.0 [facility] Comment on above: Performed By: #### C BC #### [facility] [address] [place] [address] Dr. Joe Shea Platelet mean volume (Bld) [Entitic vol] 11.5 fL Normal 9.5-13.5 [facility] Comment on above: Performed By: #### C BC #### [facility] [address] [address] [address] Joe Shea PLT 233 103/ul Normal 150-450 [facility] Comment on above: Performed By: #### C BC #### [facility] [address] [address] [address] Joe Shea RBC 4.33 106/ul Normal 4.20-5.40 [facility] Comment on above: Performed By: #### C BC #### [facility] [address] [address] [address] Joe Shea WBC 5.8 103/ul Normal 4.0-11.0 [facility] Comment on above: Performed By: #### C BC #### [facility] [address] [place] [address] Dr. Joe Shea GLYCOHEMOGLOBIN A1Con 2021 ADA RECOMMENDATION SEE BELOW Normal [facility] Comment on above: Result Comment: ADA RECOMMENDED LIMIT 4.0 - 6.0 ADA THERAPEUTIC TARGET < 7.0 ACTION SUGGESTED > 7.0 Performed By: #### C MP LIPA, NESTOR #### [facility] [address] [place] [address] Dr. Joe Shea Glucose [Mass/Vol] 105 mg/dL Normal [facility] Comment on above: Performed By: #### C MP LIPA, NESTOR #### [facility] [address] [place] [address] Dr. Joe Shae HbA1c (Bld) [Mass fraction] 5.3 % Normal 4.5-6.2 [facility] Comment on above: Performed By: #### C MP LIPA, NESTOR #### [facility] [address] [place] [address] Dr. Joe Shea TSHon 04-05-2022 TSH 0.609 uIU/mL Normal 0.358-3.740 [facility] Comment on above: Performed By: #### C BC #### [facility] [address] [address] [address] Joe Shea US PELVIS AND TRANSVAGon 10- 06-2022 US PELVIS AND TRANSVAG EXAMINATION: US PELVIS [...] MEJIA Date: 2022-04-05 17:23 Normal [facility] AMYLASEon 03-10-2022 Amylase [Catalytic activity/Vol] 64 U/L Normal 25-115 [facility] Comment on above: Performed By: #### C BC #### [facility] [address] [place] [address] Dr. Joe Shea CBC AUTO DIFFon 03-10-2022 BASO # 0.1 103/ul Normal 0.0-0.1 [facility] Comment on above: Performed By: #### C BC #### [facility] [address] [place] [address] Dr. Joe Shea Basophils/100 WBC (Bld) 0.6 % Normal 0.2-2.0 [facility] Comment on above: Performed By: #### C BC #### [facility] [address] [place] [address] Dr. Joe Shea EO # 0.3 103/ul Normal 0.0-0.7 [facility] Comment on above: Performed By: #### C BC #### [facility] [address] [place] [address] Dr. Joe Shea Eosinophils/100 WBC (Bld) 1.7 % Normal 0.9-7.0 [facility] Comment on above: Performed By: #### C BC #### [facility] [address] [place] [address] Dr. Joe Shea Erythrocyte distribution width (RBC) [Ratio] 13.1 % Normal 11.0-15.0 [facility] Comment on above: Performed By: #### C BC #### [facility] [address] [place] [address] Dr. Joe Shea Hematocrit (Bld) [Volume fraction] 37.9 % Normal 36.0-48.0 [facility] Comment on above: Performed By: #### C BC #### [facility] [address] [place] [address] Dr. Joe Shea Hemoglobin (Bld) [Mass/Vol] 12.2 g/dL Normal 12.0-16.0 [facility] Comment on above: Performed By: #### C BC #### [facility] [address] [place] [address] Dr. Joe Shea IG # 0.05 10e3/ul Critically high 0.00-0.03 [facility] Comment on above: Performed By: #### C BC #### [facility] [address] [place] [address] Dr. Joe Shea IG % 0.3 % Normal 0.0-0.5 [facility] Comment on above: Performed By: #### C BC #### [facility] [address] [place] [address] Dr. Joe Shea LYMPH # 4.7 103/ul Critically high 1.2-3.8 [facility] Comment on above: Performed By: #### C BC #### [facility] [address] [place] [address] Dr. Joe Shea Lymphocytes/100 WBC (Bld) 28.3 % Normal 20.5-60.0 [facility] Comment on above: Performed By: #### C BC #### [facility] [address] [place] [address] Dr. Joe Shea MANUAL DIFF REQ NO Normal [facility] Comment on above: Performed By: #### C BC #### [facility] [address] [place] [address] Dr. Joe Shea MCH (RBC) [Entitic mass] 27.9 pg Normal 26.7-34.0 [facility] Comment on above: Performed By: #### C BC #### [facility] [address] [place] [address] Dr. Joe Shea MCHC (RBC) [Mass/Vol] 32.2 g/dL Normal 29.9-35.2 [facility] Comment on above: Performed By: #### C BC #### [facility] [address] [place] [address] Dr. Joe Shea MCV (RBC) [Entitic vol] 86.5 fL Normal 81.0-99.0 [facility] Comment on above: Performed By: #### C BC #### [facility] [address] [place] [address] Dr. Joe Shea MONO # 0.9 103/ul Critically high 0.3-0.8 [facility] Comment on above: Performed By: #### C BC #### [facility] [address] [place] [address] Dr. Joe Shea Monocytes/100 WBC (Bld) 5.5 % Normal 1.7-12.0 [facility] Comment on above: Performed By: #### C BC #### [facility] [address] [place] [address] Dr. Joe Shea NEUT # 10.5 103/ul Critically high 1.4-6.5 [facility] Comment on above: Performed By: #### C BC #### [facility] [address] [place] [address] Dr. Joe Shea Neutrophils/100 WBC (Bld) 63.6 % Normal 43.0-75.0 [facility] Comment on above: Performed By: #### C BC #### [facility] [address] [place] [address] Dr. Joe Shea Platelet mean volume (Bld) [Entitic vol] 11.1 fL Normal 9.5-13.5 [facility] Comment on above: Performed By: #### C BC #### [facility] [address] [place] [address] Dr. Joe Shea PLT 428 103/ul Normal 150-450 [facility] Comment on above: Performed By: #### C BC #### [facility] [address] [place] [address] Dr. Joe Shea RBC 4.38 106/ul Normal 4.20-5.40 [facility] Comment on above: Performed By: #### C BC #### [facility] [address] [address] [address] Joe Shea WBC 16.6 103/ul Critically high 4.0-11.0 [facility] Comment on above: Performed By: #### C BC #### [facility] [address] [place] [address] ABD/PELV W CONon [...] STRANGE Date: 2022-03-10 16:59 Normal [facility] LIPASEon 03-10-2022 Lipase [Catalytic activity/Vol] 81.0 U/L Normal 73.0-393.0 [facility] Comment on above: Performed By: #### C BC #### [facility] [address] [place] [address] Dr. Joe Shea LIVER PROFILEon 03-10-2022 Albumin [Mass/Vol] 4.2 g/dL Normal 3.4-5.0 [facility] Comment on above: Performed By: #### C BC #### [facility] [address] [place] [address] Dr. Joe Shea Albumin/Globulin [Mass ratio] 1.4 {ratio} Normal [facility] Comment on above: Performed By: #### C BC #### [facility] [address] [place] [address] Dr. Joe Shea ALP [Catalytic activity/Vol] 50 U/L Normal 46-116 [facility] Comment on above: Performed By: #### C BC #### [facility] [address] [place] [address] Dr. Joe Shea ALT [Catalytic activity/Vol] 14 U/L Normal 14-59 [facility] Comment on above: Performed By: #### C BC #### [facility] [address] [place] [address] Dr. Joe Shea AST [Catalytic activity/Vol] 13 U/L Critically low 15-37 [facility] Comment on above: Performed By: #### C BC #### [facility] [address] [place] [address] Dr. Joe Shea BILI, CONJUGATED 0.1 mg/dL Normal 0.0-0.2 [facility] Comment on above: Performed By: #### C BC #### [facility] [address] [place] [address] Dr. Joe Shea Bilirubin [Mass/Vol] 0.3 mg/dL Normal 0.2-1.0 [facility] Comment on above: Performed By: #### C BC #### [facility] [address] [place] [address] Dr. Joe Shea Globulin (S) [Mass/Vol] 3.1 g/dL Normal [facility] Comment on above: Performed By: #### C BC #### [facility] [address] [address] [address] Joe Shea Protein [Mass/Vol] 7.3 g/dL Normal 6.4-8.2 [facility] Comment on above: Performed By: #### C BC #### [facility] [address] [address] [address] Joe Shea PREG HCG QUALon 03-10-2022 , QUAL Negative Normal NEGATIVE [facility] Comment on above: Performed By: #### L BCLH #### [facility] [address] [address] [address] Joe Shea PROF CHEM 8 (BAS METB)on Anion gap [Moles/Vol] 17.6 mmol/L Normal [facility] Comment on above: Performed By: #### C MP, LIPA, NESTOR #### [facility] [address] [address] [address] Joe Shea Calcium [Mass/Vol] 9.0 mg/dL Normal 8.5-10.1 [facility] Comment on above: Performed By: #### C MP, LIPA, NESTOR #### [facility] [address] [address] [address] Joe Shea Chloride [Moles/Vol] 102 mmol/L Normal 98-107 [facility] Comment on above: Performed By: #### C MP, LIPA, NESTOR #### [facility] [address] [address] [address] Joe Shea CO2 [Moles/Vol] 23.4 mmol/L Normal 21.0-32.0 [facility] Comment on above: Performed By: #### C MP, LIPA, NESTOR #### [facility] [address] [address] [address] Joe Shea Creatinine [Mass/Vol] 0.84 mg/dL Normal 0.55-1.02 [facility] Comment on above: Performed By: #### C MP, LIPA, NESTOR #### [facility] [address] [address] [address] Joe Shea EGFR-AF SOMALI >60 Normal >=60 [facility] Comment on above: Performed By: #### C CARLYN DE JESUS, NESTOR #### [facility] [address] [place] [address] Dr. Joe Shea EGFR-NON AF SOMALI >60 Normal >=60 [facility] Comment on above: Performed By: #### C CARLYN DE JESUS, NESTOR #### [facility] [address] [place] [address] Dr. Joe Shea Glucose [Mass/Vol] 149 mg/dL Critically high 74-106 [facility] Comment on above: Performed By: #### C CARLYN DE JESUS, NESTOR #### [facility] [address] [place] [address] Dr. Joe Shea Potassium [Moles/Vol] 2.9 mmol/L Critically low 3.5-5.1 [facility] Comment on above: Performed By: #### C CARLYN DE JESUS, NESTOR #### [facility] [address] [place] [address] Dr. Joe Shea Sodium [Moles/Vol] 139 mmol/L Normal 136-145 [facility] Comment on above: Performed By: #### C CARLYN DE JESUS, NESTOR #### [facility] [address] [place] [address] Dr. Joe Shea Urea nitrogen [Mass/Vol] 11.0 mg/dL Normal 7.0-18.0 [facility] Comment on above: Performed By: #### C CARLYN DE JESUS, NESTOR #### [facility] [address] [place] [address] Dr. Joe Shea Urea nitrogen/Creatinine [Mass ratio] 13.1 mg/mg Normal [facility] Comment on above: Performed By: #### C CARLYN DE JESUS, NESTOR #### [facility] [address] [place] [address] Dr. Joe Shea XR CSPINE 2_3 VIEWSon [...] 2022-01-18 08:03 Normal [facility] C BP Strepon 12-23-2019 C BP Strep This is strictly a screening test for Strep Group A( Streptococcus pyogenes). No other pathogens will be noted. Final Backup plate negative for Group A Streptococus Resulted at [facility] Comment on above: Performed By: #### B P #### [facility] (DEFAULT) [id number] [address] Ambulatory Patient Education on 12-21-2019 Ambulatory Patient Education Patient Education Materials Name: Racheal Louise Current Date: 12/21/2019 14:47:45 [place] : 2000 The following sheet(s) are the [...] a child 2 years or older. ? [id number] [employer]. [address] [place] [address]. All rights reserved. This information is not intended as a substitute for professional medical care. Always follow your healthcare professional's instructions. Strep today is Negative. Will send for culture to [facility] and notify if it returns positive. Take medication as prescribed. Discontinue for a negative strep culture. Discard and replace toothbrush after taking antibiotics for at least 24 hours. May use weyl-vtw-wguagns Tylenol and Motrin for pain relief. May use of ekkx-msf-gdodmhr Chloraseptic throat spray, lozenges, cool or warm [...] tabs, 0 Refill(s), 12/26/19 14:42:00 EDT, Pharmacy: [id number] Normal [facility] OR Trackon 12-21-2019 BVO Red Swab # 1 Normal [facility] Comment on above: Performed By: #### [facility] #### [facility] [address] [place] [address] Urgent Care Office/Clinic No sabiha 12-21-2019 Urgent [...] POC: negative. Swab will be sent to [facility] for culture. We will call if positive and treat appropriately. Additional Vitals Body Mass Index Measured: 18.43 kg/m2 Peripheral Pulse Rate: 111 bpm High Assessment/Plan 1. Sore throat Strep today is Negative. Will send for culture to [facility] and notify if it returns positive. Take medication as prescribed. Discontinue for a negative strep culture. Discard and replace toothbrush after taking antibiotics for at least 24 hours. May use eano-niz-jjtoixz Tylenol and Motrin for pain relief. May use of eoig-gey-wvtvrqa Chloraseptic throat spray, lozenges, cool or warm [...] tabs, 0 Refill(s), 12/26/19 14:42:00 EDT, Pharmacy: [id number] Physician Comments Centor criteria [...] qualifying data available (MRI) Electronically signed by MelissapedroRosa Jean 12/21/19 15:01 EDT Normal [facility] Vital Signs Date Time Vital Sign Value Performing Clinician Facility 03-28-2023 10:16-0400 Body height 157.48 cm Referring Provider Unknown [id number] [address] [place] Work Phone: 03-28-2023 10:16-0400 Body mass index (BMI) [Ratio] 23.78 kg/m2 Referring Provider Unknown [id number] [address] [place] Work Phone: 03-28-2023 10:16-0400 Body surface area Derived from formula 1.59 m2 Referring Provider Unknown [id number] [address] [place] Work Phone: 03-28-2023 10:16-0400 Body weight 58.97 kg Referring Provider Unknown [id number] [address] [place] Work Phone: 03-28-2023 10:16-0400 Diastolic blood pressure 65 mm[Hg] Referring Provider Unknown [id number] [address] [place] Work Phone: 03-28-2023 10:16-0400 Heart rate 96 /min Referring Provider Unknown [id number] [address] [place] Work Phone: 03-28-2023 10:16-0400 Systolic blood pressure 107 mm[Hg] Referring Provider Unknown [id number] [address] [place] Work Phone: 03-28-2023 10:16-0400 0 1 Referring Provider Unknown [id number] [address] [place] Work Phone: Comment on above: [employer] 02-14-2023 09:15-0400 Body height 154.94 cm Filippo Larson Other [employer] Other 02-14-2023 09:15-0400 Body mass index (BMI) [Ratio] 21.73 kg/m2 Filippo Larson Other [facility] [employer] Other 02-14-2023 09:15-0400 Body weight 52.16 kg Filippo Larson Other [facility] [employer] Other 02-14-2023 09:15-0400 Diastolic blood pressure 68 mm[Hg] Filippo Larson Other [facility] [employer] Other 02-14-2023 09:15-0400 Systolic blood pressure 96 mm[Hg] Filippo Larson Other [facility] [employer] Other 07-17-2022 14:26-0500 Blood Pressure Location Mayito Autrement (HotelHotel)L [facility] [place] 07-17-2022 14:26-0500 Diastolic blood pressure 70 mm[Hg] Mayito NILL [facility] [place] 07-17-2022 14:26-0500 Heart rate 70 /min Mayito NILL [facility] [place] 07-17-2022 14:26-0500 Respiratory rate 16 /min Mayito NILL [facility] [place] 07-17-2022 14:26-0500 Systolic blood pressure 102 mm[Hg] Mayito NILL [facility] [place] 03-09-2020 20:24-0400 BP Diastolic 61 mm[Hg] PHYSICIAN NO [facility] 03-09-2020 20:24-0400 BP Systolic 117 mm[Hg] PHYSICIAN NO [facility] 03-09-2020 20:24-0400 Pulse (Heart Rate) 85 /min PHYSICIAN NO [facility] 03-09-2020 20:24-0400 Pulse Oximetry 100 % PHYSICIAN NO [facility] 03-09-2020 20:24-0400 Respiratory Rate 24 /min PHYSICIAN NO [facility] 03-09-2020 18:49-0400 BMI (Body Mass Index) 20 kg/m2 PHYSICIAN NO [facility] 03-09-2020 18:49-0400 Body Temperature 98.7 [degF] PHYSICIAN NO [facility] 03-09-2020 18:49-0400 Body weight 49.7 kg PHYSICIAN NO [facility] 03-09-2020 18:49-0400 Height 157.48 cm PHYSICIAN NO [facility] Encounters Encounter Date Encounter Type Care Provider Facility Start: 07-08-2023 End: 07-08-2023 Office outpatient visit 15 minutes Paulie Cervantes MD Work Phone: Maternal- Medicine at [facility] Comment on above: 34 weeks gestation o f (Primary Dx); Poor growth affecting management of mother in third trimester, fetus 1 of multiple gestation; Dichorionic diamniotic twin in third trimester; Anxiety during Start: 07-04-2023 Orders Only Freddy Hughes [facility] rnal- Medicine at [facility] Comment on above: Dichorionic diamniot ic twin in third trimester (Primary Dx); Poor growth affecting management of mother in third trimester, fetus 1 of multiple gestation Start: 07-03-2023 End: 07-04-2023 ambulatory AMADEO SUDARSHAN [facility] Sherri nunezal Start: 06-11-2023 End: 06-11-2023 ambulatory NESTOR PRICE Not Available Start: 05-28-2023 End: 05-28-2023 ambulatory CECIL QUINTANA Not Available Start: 05-14-2023 End: 05-14-2023 ambulatory NESTOR PRICE Not Available Start: 03-28-2023 Office consultation new/estab patient 80 min Referring Provider Unknown [id number] [address] [place] Work Phone: Start: 03-28-2023 Patient encounter procedure Referring Provider Unknown [id number] [address] [place] Work Phone: Start: 03-28-2023 ambulatory Ramakrishna Schwarz Facility :[facility] Start: 02-14-2023 End: 02-14-2023 ambulatory Filippo Larson Other [employer] Other Start: 02-14-2023 Office outpatient vi sit 15 minutes Filippo Larson [facility] Start: 11-28-2022 End: 11-28-[address] SUKI CONDE Facility:[facility] Start: 11-28-[address] SUKI CONDE Facil ity:[facility] Start: 10-28-2022 End: 10-28-[address] SUKI CONDE Facility:[facility] Start: 09-29-2022 End: 09-29-[address] SUKI CONDE Facility:[facility] Start: 09-19-2022 End: 09-20-[address] SUKI CONDE Facility:[facility] Start: 08-15-[address] SUKI CONDE Facil ity:[facility] Start: 07-17-2022 End: 07-18-2022 ambulatory SUKI CONDE PROVIDER Facility:[facility] Start: 07-17-2022 End: 07-17-2022 Patient encounter procedure Mayito LIM General Surgery N[facility]/Hossein [facility] Start: 07-10-2022 End: 07-10-[address] CECIL QUINTANA . Facility:[facility] Start: 07-08-2022 Encounter for preprocedural laboratory examination DR CECIL QUINTANA . [facility] Start: 07-06-2022 End: 07-07-[address] CECIL QUINTANA . Facility:[facility] Start: 07-06-2022 End: 07-07-2022 Encounter for preprocedural laboratory examination DR CECIL QUINTANA . Facility:[facility] Start: 06-15-2022 End: 06-16-[address] CECIL QUINTANA . Facility:[facility] Start: 06-11-2022 End: 06-12-2022 ambulatory JUANJOSE VIRAMONTES Facility:[facility] Start: 06-08-2022 ambulatory SUKI CONDE PROVIDER Facility: [facility] Start: 05-31-2022 End: 06-01-[address] [...] Start: 03-10-2022 End: 03-10-[address] SUKI CODNE Facility:[facility] Start: 01-17-2022 End: 01-18-[address] SUKI CONDE Facility:[facility] Start: 03-09-2020 End: 03-09-2020 Emergency department patient visit PHYSICIAN KIMI [facility]Emergency Room Start: 04-27-2014 End: 04-27-2014 Telephone encounter Noa Dimas MD Work Phone: Reproductive Endocrinology Infertility Procedures Date Procedure Procedure Detail Performing Clinician Start: 10-25-2020 Microscopic observation [Identifier] in Cervix by Cyto stain Freddy Hughes MEDICAL CODING MANAGER Colonoscopy Mayito OBANDOL Dilation and curettage Temo OBANDOL Dilation and curettage Temo OBANDOL Esophagogastroduodenoscopy M eugene OBANDOL Excision of cyst of ovary Juana LIM Laparoscopy Mayito LIM Plan of Treatment Date Care Activity Detail Author Start: 05-28-2032 DTaP,Tdap and Td Vaccines (8 - Td or Tdap) DTaP,Tdap and Td Vaccines (8 - Td or Tdap) [facility] Start: 07-04-2024 End: 07-04-2024 US MFM with or without consult US MFM with or without consult Imaging Routine Dichorionic diamniotic twin in third trimester Poor growth affecting management of mother in third trimester, fetus 1 of multiple gestation Expected: 07/04/2024 (Approximate), Expires: 07/04/2024 [facility] Work Phone: Comment on above: Expected: 07/04/2024 (Approximate), Expires: 07/04/2024 Start: 06-03-2024 Adult BMI Screening Adult BMI Screen ing [facility] Start: 06-03-2024 Tobacco Screening Tobacco Screening [facility] Start: 2024 Screening for Chlamy carroll trachomatis Chlamydia Screening [facility] Start: 10-26-2023 Screening for malign ant neoplasm of cervix Pap Smear [facility] Start: 07-17-2023 End: 07-17-2023 Patient encounter procedure 07/17/2023 9:30 AM EST Appointment [facility] [address] [place] [phone] [facility] Start: 07-08-2023 End: 07-08-2023 Telemedicine consultation with patient 07/08/2023 1:00 PM EST Telemedicine Maternal- Medicine at [facility] [address] [place] [phone] Paulie Cervantes MD [address] [place] [address] Bella Smith MD [address] [id number] Maternal- Medicine at [facility] Start: 03-01-2023 Influenza vaccination Influenza Vacc ine [facility] Start: 03-01-2021 Influenza vaccination INFLUENZ A (Season Ended) [facility] Start: 02-28-2020 PAP TESTING PAP TESTING [facility] Start: 2018 Urine microalbumin profile DTAP,TDAP,TD (1 - Tdap) [facility] Start: 2017 Adult BMI Follow Up Plan Adult BMI Follow Up Plan [facility] Start: 2017 CHLAMYDIA SCREENING (18-24) CHLAMYDIA SCREENING (18-24) [facility] Start: 2017 GC (GONORRHEA) SCREE KRUNAL (18-24) GC (GONORRHEA) SCREENING (18-24) [facility] Start: 2017 HEPATITIS C SCREENING HEPATITIS C SC REENING [facility] Start: 2017 HIV SCREENING HIV SCREENING [facility] Start: 2011 Adult depression screening assessment DEPRESSION SCREENING [facility] Start: 2010 HPV VACCINE (1 - 2-d ose series) HPV VACCINE (1 - 2-dose series) [facility] Patient Education Anxiety (ED) [facility] Patient referral [facility] Immunizations Immunization Date Immunization Notes Care Provider Laverne irizarry 01-05-2022 influenza virus vaccine, unspecified formulation Freddy Hughes [facility] NEGATED: Highlighted row has not occurred!07-17-2022 influenza virus vaccine, unspecified formulation Mayito LIM [facility] [place] Payers Date Payer Category Payer Unknown 2013 Unknown [facility] CE PLAN [place] [employer] [id number] 2013-2014 PPO [id number] 1999 Unknown [id number] [id number]7 1999 Unknown [id number] 2.16.840.1.383917.3.579.2.727 1999 Unknown [id number] 2.16.840.1.041914.3.579.2.593 1999 Unknown [id number] 2.16.840.1.666089.3.579.2.593 1999 Unknown [id number] 2.16.840.1.467356.3.579.2.593 1999 Unknown [id number] 2.16.840.1.997981.3.579.2.593 1999 Unknown [id number] 2.16.840.1.801063.3.579.2.593 1999 Unknown [id number] 2.16.840.1.651403.3.579.2.593 1999 Unknown [id number] 2.16.840.1.130132.3.579.2.593 1999 Unknown [id number] 2.16.840.1.063439.3.579.2.593 1999 Unknown [id number] 2.840.1.821089.3.579.2.593 1999 Unknown [id number] 2.16840.1.574286.3.579.2.593 1999 Unknown [id number] 2.16840.1.001308.3.579.2.593 1999 Unknown [id number] 2.16840.1.868716.3.579.2.593 1999 Unknown [id number] 2.16840.1.003704.3.579.2.593 1999 Unknown [id number] 2.16.840.1.460355.3.579.2.593 1999 Unknown [id number] 2.16.840.1.698762.3.579.2.593 1999 Unknown [id number] 2.16.840.1.773199.3.579.2.593 1999 Unknown [id number] 2.16.840.1.563008.3.579.2.593 1999 Unknown [id number] 2.16.840.1.510252.3.579.2.593 1999 Unknown [id number] 2.16.840.1.817654.3.579.2.593 1999 Unknown [id number] 2.16.840.1.352539.3.579.2.593 1999 Unknown [id number] 2.16.840.1.636858.3.579.2.593 1999 Unknown [id number] 2.16.840.1.107333.3.579.2.356 1999 Unknown [id number] 2.16.840.1.972789.3.579.2.1259 1999 Unknown [id number] 2.16.840.1.745528.3.579.2.1259 1999 Unknown [id number] 2.16.840.1.438006.3.579.2.1259 1999 Unknown [id number] 2.16.840.1.513874.3.579.2.1286 1959 Unknown [id number] 1959 Unknown [id number] 1959 Unknown [id number] Self-pay Self Pay [id number] Unknown Self Pay [id number] Social History Date Type Detail Facility Start: 03-09-2020 Tobacco smoking status [facility] Smoker (finding) [facility] Start: 2000 Sex Assigned At Female [facility] Start: 04-12-2014 Tobacco smoking status WAIS Never smoker [facility] Start: 04-12-2014 End: 04-01-2023 Tobacco use and exposure Never used [facility] Start: 04-12-2014 Alcohol intake Current non-dr environmental health technologist of alcohol (finding) [facility] Start: 2000 Sex Assigned At Not on file [facility] Start: 07-17-2022 End: 04-01-2023 Tobacco smoking status Ex-smoker (finding) [facility] Tobacco smoking status Smokeless tobacco user within last 30 days [facility] Start: 06-03-2023 Sex Assigned At Female [facility] Start: 04-01-2023 End: 06-03-2023 No alcohol use No alcohol use [facility] History of tobacco use Cigarette Smoker [facility] Start: 06-03-2023 Alcohol intake Ex-drinker (finding) [facility] Start: 10-25-2020 Alcohol Comment RARELY [facility] Start: 11-22-2022 [facility] NEGATED: Highlighted row Denies History of domestic violence Denies History of domestic violence [id number] [address] [place] Work Phone: Goals Date Patient Goal Desired Activity /State Functional Status Date Assessment Result Facility 07-17-2022 Functional Status N/A [facility] 04-27-2014 to 07-08-2023 Bella Smith MD - 07/08/2023 1:00 PM EST Note Date & Type Note Facility 07-08-2023 History of Present illness Narrative Video Visit via Real-time Synchronous Audiovisual Provider Location: [facility] AT [address] [phone] Patient Location: Patient Location Sas Analyst: None Video Visit Consent Statement: I discussed risks, benefits, and alternatives of a real-time synchronous audiovisual consultation with the patient (and any accompanying persons) including the risks that the patient's personal health details and medical records will be discussed over real-time, synchronous, interactive video/audio/telecommunication technology, the visit will not be recorded without the express consent of both the provider and the patient, and that there are some limitations compared to [id number] evaluations. We elected to proceed. REASON FOR OFFICE VISIT: Dichorionic diamniotic twin gestation, growth restriction of twin a HISTORY OF PRESENT ILLNESS: Shanon Louise is a pleasant 23 y.o. G 1 P0 at 34w4d due on Estimated Date of Delivery: 2/15/24 . has been complicated with Dichorionic diamniotic twin gestation resulting from assisted reproductive therapy growth restriction of twin a, normal umbilical artery Dopplers Resolved subchorionic hematomas in twin a and B, status post 2nd opinion at [facility] Anxiety/ depression, managed on citalopram 40 mg daily Currently the patient has no complaints. The patient denies nausea, vomiting, abdominal pain, vaginal bleeding, SOB or chest pain. ALLERGIES: No Known Allergies CURRENT MEDICATIONS: Current Outpatient Medications: aspirin 81 mg, Take 1 tablet (81 mg total) by mouth in the morning., Disp: 60 tablet, Rfl: 4 citalopram (CeleXA) 40 mg tablet, Take 0.5 tablets (20 mg total) by mouth in the morning., Disp: , Rfl: hydrOXYzine (ATARAX) 25 mg tablet, Take 1 tablet (25 mg total) by mouth once daily., Disp: , Rfl: magnesium oxide 400 mg magnesium capsule, Take 1 capsule (400 mg total) by mouth in the morning. (Patient not taking: Reported on 05/01/2023), Disp: , Rfl: 0 metoclopramide (REGLAN) 10 mg tablet, Take 1 tablet (10 mg total) by mouth 3 (three) times a week. (Patient not taking: Reported on 05/01/2023), Disp: , Rfl: pantoprazole (PROTONIX) 40 mg EC tablet, Take 1 tablet (40 mg total) by mouth in the morning., Disp: , Rfl: vit,amelia 74/iron/folic ( VITAMIN 1+1 ORAL), Take by mouth., Disp: , Rfl: Past Medical History: Diagnosis Date Acute hypokalemia Anxiety and depression Bipolar 2 disorder ([facility]) Chronic abdominal pain Endometriosis Intractable nausea and vomiting Leukocytosis REVIEW OF SYSTEMS: Head and Neck: Negative for any dizziness and headaches. Cardiovascular and Respiratory System: Denies any chest pain, shortness of breath, and coughing. Abdominal and System: Denies any abdominal pain, nausea, vomiting, vaginal bleeding, and vaginal discharge REVIEW OF ULTRASOUND. Pertinent Ultrasound findings are see report. PHYSICAL EXAMINATION: LMP 11/08/2022 . Gravid abdomen, Respirations not labored. Well oriented in time place and person. OVERALL ASSESSMENT: -Shanon Louise is 23 y.o. at 34w4d -Dichorionic diamniotic twin gestation - resulting from assisted reproductive therapy - growth restriction of twin a, normal umbilical artery Dopplers -Resolved subchorionic hematomas in twin a and B, status post 2nd opinion at [facility] COUNSELING We reviewed signs symptoms of labor along with signs symptoms of preeclampsia. Patient is already scheduled for a primary delivery due to male presentation of twin A (breech) at 37 weeks' gestation. RECOMMENDATION: Continue baby aspirin for attempted preeclampsia prevention Reviewed signs symptoms of labor and preeclampsia Continue testing x2/week NST and VITO at her OB office Serial Doppler studies for growth restriction at [facility] office, Doppler studies remain normal, repeat on 07/17/2023 Delivery scheduled at 37 weeks' gestation with primary OB at local hospital, primary due to male presentation of twin a, breech Patient is scheduled for repeat umbilical artery Doppler assessment in 2 weeks, no future clinic visits with [facility] Thank you for allowing me to participate in [facility]on [facility]. If there are any questions, please do not hesitate to call me. Bella Smith MD Maternal- Medicine [address] [place] [address] documented in this encounter [facility] 02-14-2023 Evaluation note Encounter Date Diagnosis Assessment [...] needed. Retrun visit here in three months. [facility] Other 01-20-2023 NoteChief Complaint consultation for epigastric pain, abdominal cramping and bloating [facility] Staff 22 year old female presents on consultation from Dr. Conde for intermittent burning epigastric and sharp/stabbing LUQ pain. Reports generalized abdominal cramping and bloating. Intermittent nausea and vomiting. Denies rectal pain or bleeding. Reports long standing history of constipation for which she takes stool softener. Reports colonoscopy completed several years ago at [facility] was normal. History of Present Illness 22 yo female with h/o bipolar disorder, anxiety, migraines, referred for intermittent epigastric and LUQ pain, burning, at times sharp/stabbing; occasional N/V; + boating; no food triggers, occurs celia without eating; no hematemesis or melena; no hematochezia, some constipation, improved with stool softeners; had normal EGD and colonoscopy at [facility] in 2016; abdominal operations significant for laparoscopy [...] more than 30 da (more content not included)...[facility] HospitalComment on above:Result Comment: Electronically Signed By: RAPHAEL MACIAS, Mayito Uriostegui.bree\Date and Time Signed: 07/20/22 14:58 [id number] Note OPERATIVE NOTE OPERATION DATE: 07/10/2021 PROCEDURE: Diagnostic laparoscopy with chromopertubation. PREOPERATIVE DIAGNOSIS: Pelvic pain. POSTOPERATIVE DIAGNOSIS: Pelvic pain, including small endometrial implant posterior cul-de-sac, as well as possible blunted tube on the patient's left side. ANESTHESIA: General. SURGEON: Cecil Quintana D.O. MANA[employer] [place]: ISAURO Mccoy URINE OUTPUT: Yellow and clear. BLOOD LOSS: 5 mL. FINDINGS: Slightly blunted tube on the left side, endometriosis posterior cul-de-sac, otherwise normal appearing uterus, tubes and ovaries. Normal appearing appendix. Some adhesions of the bowel to the pelvic and abdominal side wall on the patient's right side. Normal appearing liver. No evidence of Oeoy-Nuda-Pqhlzl syndrome. PROCEDURE: The patient was taken back [...] Room in stable conditionThe [facility] [id number] NoteOP Note OPERATION DATE: 07/10/2022 PROCEDURE: Diagnostic laparoscopy with chromopertubation. PREOPERATIVE DIAGNOSIS: Pelvic pain, suspected endometriosis, fallopian tube disorder. POSTOPERATIVE DIAGNOSIS: Pelvic pain, suspected endometriosis, fallopian tube disorder, including mild endometriosis, bilateral patent fallopian tubes, small bowel adhesion to the pelvic side wall. ANESTHESIA: General. SURGEON: Cecil Quintana D.O. MANAGING [employer] [place]: ISAURO Mccoy URINE OUTPUT: Yellow and clear. BLOOD LOSS: 5 mL. ADDENDUM: Please note that chromopertubation was performed after methylene blue was placed through the HUMI manipulator. Spillage of methylene blue could be seen from both tubes.The [facility] [id number] Instructions* Patient Instructions* Jennifer Lam - 04/27/2014 4:49 PM EDT [phone] - Patient mother would like to speak with a nurse concerning medications that her daughter is taking. [facility] N[facility] - Reported * the patient is seen at the request of Dr. Gonzales at [facility] for consultation regarding second opinion for placental hemorrhage; EDC 08/15/2023 * FC MA PU-SALCL-[facility] [address] [place] Work Phone: chief complaint Narrative - Reported* the patient is seen at the request of Dr. Gonzales at [facility] for consultation regarding second opinion for placental hemorrhage; EDC 08/15/2023 * FC MA FN-LE[facility]VA-[facility] [address] [place] Work Phone: evaluation + Plan note No data available for this section General Surgery [place] Evaluation note* Diagnosis Dichorionic diamniotic twin in third trimester- Primary Poor growth affecting management of mother in third trimester, fetus 1 of multiple gestation documented in this encounter [facility]* Diagnosis 34 weeks gestation of - Primary Poor growth affecting management of mother in third trimester, fetus 1 of multiple gestation Dichorionic diamniotic twin in third trimester Anxiety during documented in this encounter [facility] SystemHistory general Narrative - Reported* Type Description Date Medical History Anxiety Medical History GERD (gastroesophageal reflux di sease) Medical History bipolar Surgical History LAPAROSCOPY-times 2013 Hospitalization History [facility] for abdominal pain & vomiting - ultrasound & CT scans 12/2022 [facility] Other Hospital Discharge instructions No data available for this section General Surgery [place] InstructionsNot on filedocumented in this encounter [facility] SystemInstructionsNot on filedocumented in this encounter [facility] SystemProgress note No data available for this section [...] Referral Specialty Diagnoses / Procedures Referred By Apolinar dinh Referred To Contact Maternal and Medicine Diagnoses Dichorionic diamniotic twin in third trimester Poor growth affecting management of mother in third trimester, fetus 1 of multiple gestation Procedures US MFM with or without consult Amadeo Downs MD [address] [place] [address] [facility] Maternal Med [address] [place] [address] Referral ID Status Reason Start Date Expiration Date V isits Requested Visits Authorized [id number] Pending Review 07/04/2023 07/03/2024 1 1 Additional Source Comments INFORMATION SOURCE (unrecogn ized section and content) DATE CREATED AUTHOR 02/04/2020 [facility] DATE CREATED AUTHOR AUTHOR'S ORGANIZ ATION 08/16/2022 [facility] DATE CREATED AUTHOR AUTHOR'S ORGANIZ ATION 12/07/2022 [facility] DATE CREATED AUTHOR AUTHOR'S ORGANIZ ATION 04/06/2023 [facility] DATE CREATED AUTHOR AUTHOR'S ORGANIZ ATION 06/13/2023 [facility] DATE CREATED AUTHOR AUTHOR'S ORGANIZ ATION 07/07/[address] [facility] Source Comments (unrecognize d section and content) In the event this informatio n is protected by the Federal Confidentiality of Alcohol and Drug Abuse Patient Records regulations: The Federal rules restrict any use of the information to criminally investigate or prosecute any alcohol or drug abuse patient.[facility] Patient Care team informatio n (unrecognized section and content) Financial Compliance Manager Relationship Specialty Start Date End Date No Pcp, [place] [address] PCP - General Family Medicine 10/25/20 Financial Compliance Manager Relationship Specialty Start Date End Date No Pcp, [place] [address] PCP - General Family Medicine 10/25/20 REASON [...] BE BASED ON THE PRIMARY CLINICAL RECORDS. [employer] [facility]. provides no warranty or guarantee of the accuracy or completeness of information in this document.
[2023-07-09 16:08] VITALS: BP 120/72; PULSE 99
--- NOTE | 2023-07-09 16:21 | US_ITS ---
[address] [address] Patient Name: LELIA CONNOLLY MRN: [id number] date: 2000 Sex: F Assigned Patient Location: US Current Patient Location: Accession/Order Number: [id number] Exam Date: 07/09/2023 16:40 Report Date: 07/10/2023 07:20 At the request of: NESTOR PRICE Procedure: US OB BPP w non-stress EXAMINATION: US OB >= 14 wk fetus add gest, US OB BPP w non-stress HISTORY: DICHORIONIC DIAMNIOTIC TWIN O30.O43 COMPARISON: No relevant comparison available. TECHNIQUE: Ultrasound biophysical profile was performed in the radiology department. BREATHING MOVEMENTS: Baby A: 2. Baby B: 2 GROSS BODY MOVEMENTS: Baby A: 2. Baby B: 2 TONE: Baby A: 2. Baby B: 2 QUALITATIVE AMNIOTIC FLUID VOLUME: Baby A: 2. Baby B: 2 PRESENTATION: Baby A: Breech. Baby B: Cephalic HEART RATE: Baby A: 141 bpm. Baby B: 146 bpm AMNIOTIC FLUID VOLUME: Baby A: Largest pocket 5.8 x 5.5 cm. Baby B: Largest pocket 5.0 x 4.2 cm GESTATIONAL AGE: Baby A: 34 weeks 5 days. Baby B: 34 weeks 5 days. CONCLUSION: Total biophysical profile score: Baby A: 8.0. Baby B: 8.0. Electronically authenticated by: SHIRLEY PATEL Date: 07/10/2023 07:20
--- NOTE | 2023-07-09 16:22 | US_ITS ---
[address] [address] Patient Name: LELIA CONNOLLY MRN: [id number] date: 2000 Sex: F Assigned Patient Location: [facility] Current Patient Location: Accession/Order Number: [id number] Exam Date: 07/09/2023 16:40 Report Date: 07/10/2023 07:20 At the request of: NESTOR PRICE Procedure: US OB >= 14 wk fetus add gest EXAMINATION: US OB >= 14 wk fetus add gest, US OB BPP w non-stress HISTORY: DICHORIONIC DIAMNIOTIC TWIN O30.O43 COMPARISON: No relevant comparison available. TECHNIQUE: Ultrasound biophysical profile was performed in the radiology department. BREATHING MOVEMENTS: Baby A: 2. Baby B: 2 GROSS BODY MOVEMENTS: Baby A: 2. Baby B: 2 TONE: Baby A: 2. Baby B: 2 QUALITATIVE AMNIOTIC FLUID VOLUME: Baby A: 2. Baby B: 2 PRESENTATION: Baby A: Breech. Baby B: Cephalic HEART RATE: Baby A: 141 bpm. Baby B: 146 bpm AMNIOTIC FLUID VOLUME: Baby A: Largest pocket 5.8 x 5.5 cm. Baby B: Largest pocket 5.0 x 4.2 cm GESTATIONAL AGE: Baby A: 34 weeks 5 days. Baby B: 34 weeks 5 days. CONCLUSION: Total biophysical profile score: Baby A: 8.0. Baby B: 8.0. Electronically authenticated by: SHIRLEY PATEL Date: 07/10/2023 07:20
== END 2023-07-09 17:20 | disposition home or self-care (01) ==
LOC: US 07:35 → FBC 16:05
PROVIDERS: PCP Family Medicine; Visit Provider Physician Assistant
DX: O30.043 Twin pregnancy, dichorionic/diamniotic, third trimester (principal); Z3A.34 34 weeks gestation of pregnancy; D50.9 Iron deficiency anemia, unspecified; O36.5930 Maternal care for other known or suspected poor fetal growth, third trimester, not applicable or unspecified; O41.8X30 Other specified disorders of amniotic fluid and membranes, third trimester, not applicable or unspecified
CPT/HCPCS: 76810; 76818

== ENCOUNTER 2023-07-10 14:38 | Observation (INO) | payer OTHER, SELFPAY ==
--- OUTSIDE RECORDS SUMMARY | 2023-07-10 14:57 | XMS_ITS | CCD ---
Author Name Unknown Address [address] [place] [address] Organization [facility] Care Team Providers Care [place] Sewer Name Role Phone NO FAMILY, PHYSICIAN Primary [...] DR WEINER Admitting Unavailable NILL ., DR WEINRE Attending Unavailable AMAYA, DR SUKI Kong Primary [...] Care Unavailable SAMREEN SCHWARZ Consulting Unavailable SAMREEN CSHWARZ Admitting Unavailable SAMREEN SCHWARZ Attending Unavailable ELIZABETH [...] Unavailable AMAYA, DR SUKI Kong Attending Unavailable MANSFIELD, DR ANGIE Arce Consulting Unavailable REQUEST, DR [...] Medication Allergies] Propensity to adverse reactions (disorder) [facility] Repository Medications Current Medications Medication Drug Class(es) [...] 07/17/22 Status: Ordered take 2 tablets by [facility] once daily at bedtime Elavil 25 [...] Other alf (current) drug therapy; 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] Onset: 3 Episodic Other [...] object(s), not elsewhere classified, initial encounter; Translations: [[facility] OTH SHRP OB NOT ELSW CLASS [...] a) No falls within the last year [id number] [address] [place] Work Phone: Tobacco use status CPHS a) Yes M G-[id number] [address] [place] Work Phone: Blood Pressure Cuff Size Adult [id number] 1200 [place] Work Phone: Blood Pressure Cuff Size Yes [id number] 1200 [place] Work Phone: No Panel Informationon 03-28 Normal [id number] 1200 [place] Work Phone: OB Completed scan [...] gestation - rr cfDNA - Referred from [place] because of subchorionic hematomas A targeted anatomic [...] previously been seen by Dr. Gonzales in [place]. 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 Normal [facility] AMYLASEon 10-28-2022 Amylase [Catalytic activity/Vol] 35 U/L Normal 25-115 [facility] Comment on above: Performed By: #### C NEAL LIPA, NESTOR #### [facility] [address] [address] [address] Joe Shea CBC AUTO DIFFon 10-28-2022 BASO # 0.1 103/ul Normal 0.0-0.1 [facility] Comment on above: Performed By: #### C NEAL LIPA, NESTOR #### [facility] [address] [address] [address] Joe Shea Basophils/100 WBC (Bld) 0.4 % Normal 0.2-2.0 [facility] Comment on above: Performed By: #### C NEAL LIPA, NESTOR #### [facility] [address] [address] [address] Joe Shea EO # 0.1 103/ul Normal 0.0-0.7 [facility] Comment on above: Performed By: #### C NEAL LIPA, NESTOR #### [facility] [address] [address] [address] Joe Shea Eosinophils/100 WBC (Bld) 0.8 % Critically low 0.9-7. 0 [facility] Comment on above: Performed By: #### C CARLYN DE JESUS AMY #### [facility] [address] [place] [address] Dr. Joe Shea Erythrocyte distribution width (RBC) [Ratio] 13.2 % Normal 11.0-15.0 [facility] Comment on above: Performed By: #### C CARLYN DE JESUS AMY #### [facility] [address] [place] [address] Dr. Joe Shea Hematocrit (Bld) [Volume fraction] 37.2 % Normal 36.0-48.0 [facility] Comment on above: Performed By: #### C CARLYN DEJ ESUS AMY #### [facility] [address] [place] [address] Dr. Joe Shea Hemoglobin (Bld) [Mass/Vol] 12.0 g/dL Normal 12.0-16.0 [facility] Comment on above: Performed By: #### C CARLYN DE JESUS AMY #### [facility] [address] [place] [address] Dr. Joe Shea IG # 0.03 10e3/ul Normal 0.00-0.03 [facility] Comment on above: Performed By: #### C CARLYN DE JESUS AMY #### [facility] [address] [place] [address] Dr. Joe Shea IG % 0.2 % Normal 0.0-0.5 [facility] Comment on above: Performed By: #### C CARLYN DE JESUS, NESTOR #### [facility] [address] [place] [address] Dr. Joe Shea LYMPH # 1.9 103/ul Normal 1.2-3.8 [facility] Comment on above: Performed By: #### C CARLYN DE JESUS, NESTOR #### [facility] [address] [place] [address] Dr. Joe Shea Lymphocytes/100 WBC (Bld) 15.2 % Critically low 20.5-6 0.0 [facility] Comment on above: Performed By: #### C CARLYN DE JESUS, NESTOR #### [facility] [address] [place] [address] Dr. Joe Shea MANUAL DIFF REQ NO Normal [facility] Comment on above: Performed By: #### C MP, LIPA, NESTOR #### [facility] [address] [place] [address] Dr. Joe Shea MCH (RBC) [Entitic mass] 28.4 pg Normal 26.7-34.0 [facility] Comment on above: Performed By: #### C MP, LIPA, NESTOR #### [facility] [address] [place] [address] Dr. Joe Shea MCHC (RBC) [Mass/Vol] 32.3 g/dL Normal 29.9-35.2 [facility] Comment on above: Performed By: #### C MP, LIPA, NESTOR #### [facility] [address] [place] [address] Dr. Joe Shea MCV (RBC) [Entitic vol] 87.9 fL Normal 81.0-99.0 [facility] Comment on above: Performed By: #### C MP, LIPA, NESTOR #### [facility] [address] [place] [address] Dr. Joe Shea MONO # 0.9 103/ul Critically high 0.3-0.8 [facility] Comment on above: Performed By: #### C MP, LIPA, NESTOR #### [facility] [address] [place] [address] Dr. Joe Shea Monocytes/100 WBC (Bld) 7.1 % Normal 1.7-12.0 [facility] Comment on above: Performed By: #### C MP, LIPA, NESTOR #### [facility] [address] [place] [address] Dr. Joe Shea NEUT # 9.5 103/ul Critically high 1.4-6.5 [facility] Comment on above: Performed By: #### C MP, LIPA, NESTOR #### [facility] [address] [place] [address] Dr. Joe Shea Neutrophils/100 WBC (Bld) 76.3 % Critically high 43.0- 75.0 [facility] Comment on above: Performed By: #### C CARLYN DE JESUS AMY #### [facility] [address] [place] [address] Dr. Joe Shea Platelet mean volume (Bld) [Entitic vol] 10.8 fL Normal 9.5-13.5 [facility] Comment on above: Performed By: #### C CARLYN DE JESUS AMY #### [facility] [address] [address] [address] Joe Shea PLT 283 103/ul Normal 150-450 [facility] Comment on above: Performed By: #### C CARLYN DE JESUS AMY #### [facility] [address] [place] [address] Dr. Joe Shea RBC 4.23 106/ul Normal 4.20-5.40 [facility] Comment on above: Performed By: #### C CARLYN DE JESUS AMY #### [facility] [address] [place] [address] Dr. Joe Shea WBC 12.5 103/ul Critically high 4.0-11.0 [facility] Comment on above: Performed By: #### C CARLYN DE JESUS AMY #### [facility] [address] [place] [address] ABD/PELV W CONon [...] MISTI BREWER Date: 2022-10-28 18:31 Normal [facility] URINE PROFILEon 3 Bilirubin Ql (U) Negative Normal NEGATIVE [facility] Comment on above: Performed By: #### L BCL #### [facility] [address] [place] [address] Dr. Joe Shea Clarity (U) CLEAR Normal CLEAR [facility] Comment on above: Performed By: #### L BCL #### [facility] [address] [place] [address] Dr. Joe Shea Color (U) LT. YELLOW Normal YELLOW [facility] Comment on above: Performed By: #### L BCL #### [facility] [address] [place] [address] Dr. Joe YUNG A micrscopic examination will be performed if indicated. Normal [facility] Comment on above: Performed By: #### L BCL #### [facility] [address] [place] [address] Dr. Joe Shea Glucose Ql (U) Negative Normal NEGATIVE [facility] Comment on above: Performed By: #### L BCLH #### [facility] [address] [place] [address] Dr. Joe Shea Hemoglobin Ql (U) Negative Normal NEGATIVE [facility] Comment on above: Performed By: #### L BCLH #### [facility] [address] [place] [address] Dr. Joe Shea Ketones Ql (U) Negative Normal NEGATIVE [facility] Comment on above: Performed By: #### L BCL #### [facility] [address] [place] [address] Dr. Joe Shea LEUKOCYTES TRACE Abnormal NEGATIVE [facility] Comment on above: Performed By: #### L BCL #### [facility] [address] [place] [address] Dr. Joe Shea Nitrite Ql (U) Negative Normal NEGATIVE [facility] Comment on above: Performed By: #### L BCL #### [facility] [address] [place] [address] Dr. Joe Shea pH (U) 8.0 [pH] Normal 5-9 [facility] Comment on above: Performed By: #### L BCL #### [facility] [address] [place] [address] Dr. Joe Shea SPEC GRAVITY 1.015 Normal 1.005-<=1.02 5 [facility] Comment on above: Performed By: #### L BCL #### [facility] [address] [place] [address] Dr. Joe Shea UA PROTEIN Negative Normal NEGATIVE/ TRACE [facility] Comment on above: Performed By: #### L BCL #### [facility] [address] [place] [address] Dr. Joe Shea UR MICRO IND INDICATED Normal [facility] Comment on above: Performed By: #### L BCL #### [facility] [address] [place] [address] Dr. Joe Shea Urobilinogen Qn (U) 2.0 {Pascual'U}/dL Abnormal 0.2 - 1. 0 [facility] Comment on above: Performed By: #### L BCL #### [facility] [address] [place] [address] Dr. Joe Shea LIPASEon 10-28-2022 Lipase [Catalytic activity/Vol] 93.0 U/L Normal 73.0-393.0 [facility] Comment on above: Performed By: #### C MP, LIPA, NESTOR #### [facility] [address] [address] [address] Joe Shea URon 10-28-2022 , QUAL Negative Normal NEGATIVE [facility] Comment on above: Performed By: #### L BCLH #### [facility] [address] [place] [address] Dr. Joe Shea PROF 14(COMP METB)on 023 Albumin [Mass/Vol] 4.1 g/dL Normal 3.4-5.0 [facility] Comment on above: Performed By: #### C MP, LIPA, NESTOR #### [facility] [address] [place] [address] Dr. Joe Shea Albumin/Globulin [Mass ratio] 1.2 {ratio} Normal [facility] Comment on above: Performed By: #### C MP, LIPA, NESTOR #### [facility] [address] [place] [address] Dr. Joe Shea ALP [Catalytic activity/Vol] 60 U/L Normal 46-116 [facility] Comment on above: Performed By: #### C MP, LIPA, NESTOR #### [facility] [address] [place] [address] Dr. Joe Shea ALT [Catalytic activity/Vol] 22 U/L Normal 14-59 [facility] Comment on above: Performed By: #### C MP, LIPA, NESTOR #### [facility] [address] [place] [address] Dr. Joe Shea Anion gap [Moles/Vol] 10.2 mmol/L Normal [facility] Comment on above: Performed By: #### C MP, LIPA, NESTOR #### [facility] [address] [place] [address] Dr. Joe Shea AST [Catalytic activity/Vol] 14 U/L Critically low 15-37 [facility] Comment on above: Performed By: #### C MP, LIPA, NESTOR #### [facility] [address] [place] [address] Dr. Joe Shea Bilirubin [Mass/Vol] 0.5 mg/dL Normal 0.2-1.0 [facility] Comment on above: Performed By: #### C MP, LIPA, NESTOR #### [facility] [address] [address] [address] Joe Shea Calcium [Mass/Vol] 8.9 mg/dL Normal 8.5-10.1 [facility] Comment on above: Performed By: #### C MP, LIPA, NESTOR #### [facility] [address] [place] [address] Dr. Joe Shea Chloride [Moles/Vol] 103 mmol/L Normal 98-107 [facility] Comment on above: Performed By: #### C MP LIPA, NESTOR #### [facility] [address] [place] [address] Dr. Joe Shea CO2 [Moles/Vol] 28.1 mmol/L Normal 21.0-32.0 [facility] Comment on above: Performed By: #### C NEAL LIPA, NESTOR #### [facility] [address] [place] [address] Dr. Joe Shea Creatinine [Mass/Vol] 0.77 mg/dL Normal 0.55-1.02 [facility] Comment on above: Performed By: #### C NEAL LIPA, NESTOR #### [facility] [address] [place] [address] Dr. Joe Shea EGFR-AF CYPRIOT >60 Normal >=60 [facility] Comment on above: Performed By: #### C NEAL LIPA, NESTOR #### [facility] [address] [place] [address] Dr. Joe Shea EGFR-NON AF CYPRIOT >60 Normal >=60 [facility] Comment on above: Performed By: #### C MP LIPA, NESTOR #### [facility] [address] [place] [address] Dr. Joe Shea Globulin (S) [Mass/Vol] 3.5 g/dL Normal T [facility] Comment on above: Performed By: #### C MP, LIPA, NESTOR #### [facility] [address] [place] [address] Dr. Joe Shea Glucose [Mass/Vol] 85 mg/dL Normal 74-106 [facility] Comment on above: Performed By: #### C CARLYN DE JESUS AMY #### [facility] [address] [place] [address] Dr. Joe Shea Potassium [Moles/Vol] 3.3 mmol/L Critically low 3.5-5.1 [facility] Comment on above: Performed By: #### C CARLYN DE JESUS AMY #### [facility] [address] [place] [address] Dr. Joe Shea Protein [Mass/Vol] 7.6 g/dL Normal 6.4-8.2 [facility] Comment on above: Performed By: #### C CARLYN DE JESUS AMY #### [facility] [address] [place] [address] Dr. Joe Shea Sodium [Moles/Vol] 138 mmol/L Normal 136-145 [facility] Comment on above: Performed By: #### C CARLYN DE JESUS AMY #### [facility] [address] [place] [address] Dr. Joe Shea Urea nitrogen [Mass/Vol] 6.0 mg/dL Critically low 7.0-18. 0 [facility] Comment on above: Performed By: #### C CARLYN DE JESUS AMY #### [facility] [address] [place] [address] Dr. Joe Shea Urea nitrogen/Creatinine [Mass ratio] 7.8 mg/mg Normal [facility] Comment on above: Performed By: #### C CARLYN DE JESUS AMY #### [facility] [address] [place] [address] Dr. Joe Shea URINE MICROSCOPIC ONLYon BACTERIA NONE SEEN Normal NONE SEEN [facility] Comment on above: Performed By: #### L BCL #### [facility] [address] [place] [address] Dr. Joe Shea Bacteria identified Cx Nom (U) NOT INDICATED Normal [facility] Comment on above: Performed By: #### L BCLShyla #### [facility] [address] [place] [address] Dr. Joe Shea CAST NONE SEEN Normal NONE SEEN [facility] Comment on above: Performed By: #### L BCLH #### [facility] [address] [place] [address] Dr. Joe Shea Crystals LM Nom (Urine sed) NONE SEEN Normal NONE SEEN [facility] Comment on above: Performed By: #### L BCLH #### [facility] [address] [place] [address] Dr. Joe Shea Epithelial cells LM Ql (Urine sed) FEW Abnormal NONE SEEN /RARE [facility] Comment on above: Performed By: #### L BCLH #### [facility] [address] [place] [address] Dr. Joe Shea MUCOUS NONE SEEN Normal NONE SEEN [facility] Comment on above: Performed By: #### L BCLH #### [facility] [address] [place] [address] Dr. Joe Shea RBC NONE SEEN Abnormal 0-2 [facility] Comment on above: Performed By: #### L BCLH #### [facility] [address] [place] [address] Dr. Joe Shea WBC 0-2 Abnormal NONE SEEN [facility] Comment on above: Performed By: #### L BCLH #### [facility] [address] [place] [address] Dr. Joe Shea LACTOFERRIN FECAL QUANTon Lactoferrin, Fecal, Quant. <1.00 Normal 0.00-7.24 [facility] Comment on above: Result Comment: Re sults [...] (IBS). Performed By: #### D HEASMARICRUZ #### [facility] [address] [place] [address] Dr. Joe Seha CALPROTECTIN, FECALon 2022 Calprotectin, Fecal 31 ug/g Normal 0-120 [facility] Comment on above: Result Comment: Conc entration Interpretation Follow-Up <16 - 50 ug/g Normal None >50 -120 ug/g Borderline Re-evaluate in 4-6 weeks >120 ug/g Abnormal Repeat as clinically indicated Performed By: #### C MP, LIPA, NESTOR #### [facility] [address] [address] [address] Joe Shea BOWEL DISORDERS EVALUATION R ULE-OUT CASCon 09-25-2022 Antigliadin 8 units Normal 0-19 [facility] Comment on above: Result Comment: Nega tive 0 - 19 Weak Positive 20 - 30 Moderate to Strong Positive >30 . Performed By: #### C BC #### [facility] [address] [address] [address] Joe Shea Atypical pANCA Negative Normal Negative [facility] Comment on above: Performed By: #### C BC #### [facility] [address] [address] [address] Joe Shea Note: [place] continues Normal [facility] Comment on above: Performed By: #### C BC #### [facility] [address] [address] [address] Joe Shea Note: Comment Normal [facility] Comment on above: Result Comment: Sugg estive of irritable bowel syndrome (IBS). Careful evaluation of the patient's history, physical examination, and application of [place] III diagnostic criteria may help to rule in or rule out the diagnosis of IBS. Subsequent testing for Fecal Calprotectin (986907) may be recommended. If IBD is strongly suspected, subsequent testing with the Crohn's Disease Prognostic Profile (237984) that includes anti- glycan antibodies AMCA, ALCA, ACCA, and Zulema may aid in differential diagnosis. Performed By: #### C BC #### [facility] [address] [address] [address] Joe Shea Saccharomyces Cer. IgG <20.0 Normal 0.0-24.9 Th [facility] Comment on above: Result Comment: Nega tive <20.0 Equivocal 20.1 - 24.9 Positive >or= 25.0 Performed By: #### C BC #### [facility] [address] [place] [address] Dr. Joe Shea tTG/DGP SCR Negative Normal Negative [facility] Comment on above: Result Comment: Ef fective September 21, 2022 this profile will be made non-orderable due to non-availability of reagents for tTG/DGP Combo. No replacement number is available at this time. For further information, please contact your local [facility] Operator. Performed By: #### C BC #### [facility] [address] [place] [address] Dr. Joe Shea CBC AUTO DIFFon 09-19-2022 BASO # 0.1 103/ul Normal 0.0-0.1 [facility] Comment on above: Performed By: #### D TRESA #### [facility] [address] [place] [address] Dr. Joe Shea Basophils/100 WBC (Bld) 0.9 % Normal 0.2-2.0 [facility] Comment on above: Performed By: #### D LUIS ARMANDOUL #### [facility] [address] [place] [address] Dr. Joe Shea EO # 0.2 103/ul Normal 0.0-0.7 [facility] Comment on above: Performed By: #### D LIUS ARMANDOUL #### [facility] [address] [place] [address] Dr. Joe Shea Eosinophils/100 WBC (Bld) 2.4 % Normal 0.9-7.0 [facility] Comment on above: Performed By: #### D LUIS ARMANDOUL #### [facility] [address] [place] [address] Dr. Joe Shea Erythrocyte distribution width (RBC) [Ratio] 13.2 % Normal 11.0-15.0 [facility] Comment on above: Performed By: #### D LUIS ARMANDOUL #### [facility] [address] [place] [address] Dr. Joe Shea Hematocrit (Bld) [Volume fraction] 38.3 % Normal 36.0-48.0 [facility] Comment on above: Performed By: #### Althea GTZ #### [facility] [address] [place] [address] Dr. Joe Shea Hemoglobin (Bld) [Mass/Vol] 12.3 g/dL Normal 12.0-16.0 [facility] Comment on above: Performed By: #### Althea GTZ #### [facility] [address] [place] [address] Dr. Joe Shea IG # 0.02 10e3/ul Normal 0.00-0.03 [facility] Comment on above: Performed By: #### Althea GTZ #### [facility] [address] [place] [address] Dr. Joe Shea IG % 0.3 % Normal 0.0-0.5 [facility] Comment on above: Performed By: #### Althea GTZ #### [facility] [address] [place] [address] Dr. Joe Shea LYMPH # 1.7 103/ul Normal 1.2-3.8 [facility] Comment on above: Performed By: #### Althea GTZ #### [facility] [address] [place] [address] Dr. Joe Shea Lymphocytes/100 WBC (Bld) 24.6 % Normal 20.5-60.0 [facility] Comment on above: Performed By: #### Althea GTZ #### [facility] [address] [place] [address] Dr. Joe Shea MANUAL DIFF REQ NO Normal [facility] Comment on above: Performed By: #### Althea GTZ #### [facility] [address] [place] [address] Dr. Joe Shea MCH (RBC) [Entitic mass] 28.1 pg Normal 26.7-34.0 [facility] Comment on above: Performed By: #### Althea GTZ #### [facility] [address] [place] [address] Dr. Joe Shea MCHC (RBC) [Mass/Vol] 32.1 g/dL Normal 29.9-35.2 [facility] Comment on above: Performed By: #### Althea GTZ #### [facility] [address] [place] [address] Dr. Joe Shea MCV (RBC) [Entitic vol] 87.6 fL Normal 81.0-99.0 [facility] [facility] Comment on above: Performed By: #### Althea GTZ #### [facility] [address] [place] [address] Dr. Joe Shea MONO # 0.4 103/ul Normal 0.3-0.8 [facility] Comment on above: Performed By: #### Althea GTZ #### [facility] [address] [place] [address] Dr. Joe Shea Monocytes/100 WBC (Bld) 5.5 % Normal 1.7-12.0 [facility] Comment on above: Performed By: #### Althea GTZ #### [facility] [address] [place] [address] Dr. Joe Shea NEUT # 4.7 103/ul Normal 1.4-6.5 [facility] Comment on above: Performed By: ###Asiya GTZ #### [facility] [address] [place] [address] Dr. Joe Shea Neutrophils/100 WBC (Bld) 66.3 % Normal 43.0-75.0 [facility] Comment on above: Performed By: ###Asiya GTZ #### [facility] [address] [place] [address] Dr. Joe Shea Platelet mean volume (Bld) [Entitic vol] 11.4 fL Normal 9.5-13.5 [facility] Comment on above: Performed By: #### Althea GTZ #### [facility] [address] [place] [address] Dr. Joe Shea PLT 275 103/ul Normal 150-450 [facility] Comment on above: Performed By: #### Althea GTZ #### [facility] [address] [place] [address] Dr. Joe Shea RBC 4.37 106/ul Normal 4.20-5.40 [facility] Comment on above: Performed By: #### Althea GTZ #### [facility] [address] [place] [address] Dr. Joe Shea WBC 7.0 103/ul Normal 4.0-11.0 [facility] Comment on above: Performed By: #### Althea GTZ #### [facility] [address] [place] [address] Dr. Joe Shea PROF 14(COMP METB)on 023 Albumin [Mass/Vol] 4.4 g/dL Normal 3.4-5.0 [facility] Comment on above: Performed By: #### L DAIN #### [facility] [address] [place] [address] Dr. Joe Shea Albumin/Globulin [Mass ratio] 1.4 {ratio} Normal [facility] Comment on above: Performed By: #### L DAIN #### [facility] [address] [place] [address] Dr. Joe Shea ALP [Catalytic activity/Vol] 51 U/L Normal 46-116 [facility] Comment on above: Performed By: #### L DAIN #### [facility] [address] [place] [address] Dr. Joe Shea ALT [Catalytic activity/Vol] 20 U/L Normal 14-59 [facility] Comment on above: Performed By: #### L DAIN #### [facility] [address] [place] [address] Dr. Joe Shea Anion gap [Moles/Vol] 11.7 mmol/L Normal Th [facility] Comment on above: Performed By: #### L DAIN #### [facility] [address] [place] [address] Dr. Joe Shea AST [Catalytic activity/Vol] 17 U/L Normal 15-37 [facility] Comment on above: Performed By: #### L DAIN #### [facility] [address] [place] [address] Dr. Joe Shea Bilirubin [Mass/Vol] 0.4 mg/dL Normal 0.2-1.0 [facility] Comment on above: Performed By: #### L BCL #### [facility] [address] [place] [address] Dr. Joe Shea Calcium [Mass/Vol] 9.3 mg/dL Normal 8.5-10.1 [facility] Comment on above: Performed By: #### L BCL #### [facility] [address] [address] [address] Joe Shea Chloride [Moles/Vol] 104 mmol/L Normal 98-107 [facility] Comment on above: Performed By: #### L BCL #### [facility] [address] [place] [address] Dr. Joe Shea CO2 [Moles/Vol] 28.5 mmol/L Normal 21.0-32.0 [facility] Comment on above: Performed By: #### L BCL #### [facility] [address] [place] [address] Dr. Joe Shea Creatinine [Mass/Vol] 0.55 mg/dL Normal 0.55-1.02 [facility] Comment on above: Performed By: #### L BCL #### [facility] [address] [place] [address] Dr. Joe Shea EGFR-AF CYPRIOT >60 Normal >=60 [facility] Comment on above: Performed By: #### L BCL #### [facility] [address] [place] [address] Dr. Joe Shea EGFR-NON AF CYPRIOT >60 Normal >=60 [facility] Comment on above: Performed By: #### L BCL #### [facility] [address] [place] [address] Dr. Joe Shea Globulin (S) [Mass/Vol] 3.1 g/dL Normal T [facility] Comment on above: Performed By: #### L BCLH #### [facility] [address] [place] [address] Dr. Joe Shea Glucose [Mass/Vol] 90 mg/dL Normal 74-106 [facility] Comment on above: Performed By: #### L BCLH #### [facility] [address] [address] [address] Joe Shea Potassium [Moles/Vol] 4.2 mmol/L Normal 3.5-5.1 [facility] Comment on above: Performed By: #### L BCLH #### [facility] [address] [address] [address] Joe Shea Protein [Mass/Vol] 7.5 g/dL Normal 6.4-8.2 [facility] Comment on above: Performed By: #### L BCLH #### [facility] [address] [address] [address] Joe Shea Sodium [Moles/Vol] 140 mmol/L Normal 136-145 [facility] Comment on above: Performed By: #### L BCLH #### [facility] [address] [place] [address] Dr. Joe Shea Urea nitrogen [Mass/Vol] 6.0 mg/dL Critically low 7.0-18. 0 [facility] Comment on above: Performed By: #### L BCLH #### [facility] [address] [place] [address] Dr. Joe Shea Urea nitrogen/Creatinine [Mass ratio] 10.9 mg/mg Normal [facility] Comment on above: Performed By: #### L BCLH #### [facility] [address] [place] [address] Dr. Joe Shea PROTIMEon 09-19-2022 INR Coag (PPP) [Relative time] 1.08 {INR} Normal [facility] Comment on above: Performed By: #### L BCLH #### [facility] [address] [place] [address] Dr. Joe Shea INR GUIDELINES SEE BELOW Normal [facility] Comment on above: Result Comment: CHICA RED INR: 2.0 - 3.0 CONDITIONS NOT LISTED BELOW 2.5 - 3.5 FOR PROSTHETIC HEART VALVE REPLACEMENT 2.5 - 3.5 RECURRENT THROMBOSIS Performed By: #### L BCLH #### [facility] [address] [place] [address] Dr. Joe Shea PT Coag (PPP) [Time] 11.4 s Normal 9.0-11.6 [facility] Comment on above: Performed By: #### L BCLH #### [facility] [address] [place] [address] Dr. Joe Shea TSHon 09-19-2022 TSH 0.957 uIU/mL Normal 0.358-3.740 [facility] Comment on above: Performed By: #### L BCL #### [facility] [address] [place] [address] Dr. Joe Shea Pre-Certification Formon Pre-Certification Form [id number]#1.00CD:127 Normal [facility] Consent for Procedure/Surger yon 07-23-2022 Consent for Procedure/Surgery [id number]#1.00CD:127 Normal [facility] Facesheeton 07-19-2022 Facesheet [id number]#1.00CD:127 Normal [facility] CBC AUTO DIFFon 07-06-2022 BASO # 0.1 103/ul Normal 0.0-0.1 [facility] Comment on above: Performed By: #### C CARLYN DE JESSU NESTOR #### [facility] [address] [place] [address] Dr. Joe Shea Basophils/100 WBC (Bld) 0.8 % Normal 0.2-2.0 [facility] Comment on above: Performed By: #### C CARLYN DE JESUS NESTOR #### [facility] [address] [place] [address] Dr. Joe Shea EO # 0.4 103/ul Normal 0.0-0.7 [facility] Comment on above: Performed By: #### C CARLYN DE JESUS NESTOR #### [facility] [address] [place] [address] Dr. Joe Shea Eosinophils/100 WBC (Bld) 4.2 % Normal 0.9-7.0 [facility] Comment on above: Performed By: #### C CARLYN DE JESUS, NESTOR #### [facility] [address] [place] [address] Dr. Joe Shea Erythrocyte distribution width (RBC) [Ratio] 13.5 % Normal 11.0-15.0 [facility] Comment on above: Performed By: #### C CARLYN DE JESUS, NESTOR #### [facility] [address] [place] [address] Dr. Joe Shea Hematocrit (Bld) [Volume fraction] 36.8 % Normal 36.0-48.0 [facility] Comment on above: Performed By: #### C CARLYN DE JESUS, NESTOR #### [facility] [address] [place] [address] Dr. Joe Shea Hemoglobin (Bld) [Mass/Vol] 12.2 g/dL Normal 12.0-16.0 [facility] Comment on above: Performed By: #### C CARLYN DE JESUS, NESTOR #### [facility] [address] [place] [address] Dr. Joe Shea IG # 0.02 10e3/ul Normal 0.00-0.03 [facility] Comment on above: Performed By: #### C CARLYN DE JESUS, NESTOR #### [facility] [address] [place] [address] Dr. Joe Shea IG % 0.2 % Normal 0.0-0.5 [facility] Comment on above: Performed By: #### C CARLYN DE JESUS, NESTOR #### [facility] [address] [place] [address] Dr. Joe Shea LYMPH # 2.1 103/ul Normal 1.2-3.8 [facility] Comment on above: Performed By: #### C HUGO DE JESUSA, NESTOR #### [facility] [address] [place] [address] Dr. Joe Shea Lymphocytes/100 WBC (Bld) 20.3 % Critically low 20.5-6 0.0 [facility] Comment on above: Performed By: #### C MP, LIPA, NESTOR #### [facility] [address] [place] [address] Dr. Joe Shea MANUAL DIFF REQ NO Normal [facility] Comment on above: Performed By: #### C MP, LIPA, NESTOR #### [facility] [address] [place] [address] Dr. Joe Shea MCH (RBC) [Entitic mass] 28.6 pg Normal 26.7-34.0 [facility] Comment on above: Performed By: #### C MP, LIPA, NESTOR #### [facility] [address] [place] [address] Dr. Joe Shea MCHC (RBC) [Mass/Vol] 33.2 g/dL Normal 29.9-35.2 [facility] Comment on above: Performed By: #### C MP, LIPA, NESTOR #### [facility] [address] [place] [address] Dr. Joe Shea MCV (RBC) [Entitic vol] 86.4 fL Normal 81.0-99.0 [facility] Comment on above: Performed By: #### C MP, LIPA, NESTOR #### [facility] [address] [place] [address] Dr. Joe Shea MONO # 0.6 103/ul Normal 0.3-0.8 [facility] Comment on above: Performed By: #### C MP, LIPA, NESTOR #### [facility] [address] [place] [address] Dr. Joe Shea Monocytes/100 WBC (Bld) 5.5 % Normal 1.7-12.0 [facility] Comment on above: Performed By: #### C MP, LIPA, NESTOR #### [facility] [address] [place] [address] Dr. Joe Shea NEUT # 7.2 103/ul Critically high 1.4-6.5 [facility] Comment on above: Performed By: #### C MP, LIPA, NESTOR #### [facility] [address] [place] [address] Dr. Joe Shea Neutrophils/100 WBC (Bld) 69.0 % Normal 43.0-75.0 [facility] Comment on above: Performed By: #### C CARLYN DE JESUS AMY #### [facility] [address] [place] [address] Dr. Joe Shea Platelet mean volume (Bld) [Entitic vol] 10.8 fL Normal 9.5-13.5 [facility] Comment on above: Performed By: #### C CARLYN DE JESUS AMY #### [facility] [address] [address] [address] Joe Shea PLT 316 103/ul Normal 150-450 [facility] Comment on above: Performed By: #### C CARLYN DE JESUS, NESTOR #### [facility] [address] [place] [address] Dr. Joe Shea RBC 4.26 106/ul Normal 4.20-5.40 [facility] Comment on above: Performed By: #### C CARLYN DE JESUS, NESTOR #### [facility] [address] [place] [address] Dr. Joe Shea WBC 10.4 103/ul Normal 4.0-11.0 [facility] Comment on above: Performed By: #### C CARLYN DE JESUS AMY #### [facility] [address] [place] [address] Dr. Joe Shea PREG QUANT HCGon 07-06-2022 HCG QUANT <1 Normal [facility] Comment on above: Performed By: #### C CARLYN DE JESUS AMY #### [facility] [address] [place] [address] Dr. Joe Shea HCG RANGE SEE BELOW Normal [facility] Comment on above: Result Comment: 5-50 0.2-1 WEEK 50-500 1-2 WEEKS 100-5,000 2-3 WEEKS 500-10,000 3-4 WEEKS 1,000-50,000 4-5 WEEKS 10,000-100,000 5-6 WEEKS 15,000-200,000 6-8 WEEKS 10,000-100,000 2-3 MONTHS Performed By: #### C CARLYN DE JESUS AMY #### [facility] [address] [place], [place] [address] Dr. Joe Shea HEPATITIS C ANTIBODYon 06-26 Hep C Virus Ab <0.1 Normal 0.0-0.9 [facility] Comment on above: Result Comment: Nega tive: [...] Hepatitis C Virus (HCV) RNA, Diagnosis, MEGAN (690546) and Hepatitis C Virus (HCV) Antibody with reflex to Quantitative Real-time PCR ([id number]). Performed By: #### L BCL #### [facility] [address] [place], [place] [address] Dr. Joe Shea Covid-19 PCR (CVDTB)on 05-31 SARS-CoV-2 (COVID-19) RNA MEGAN+probe Ql (Unsp spec) Not detected Normal NOT DETECTED [facility] Comment on above: Result Comment: This test is not yet approved or cleared by the [place] FDA. When there are no FDA-approved or cleared tests available, and other criteria are met, FDA can make tests available under an emergency access mechanism called an Emergency Use Authorization (EUA). The EUA for this test is supported by the [employer]ilingual [employer] Representative of Health and Human Service's (HHS's) declaration [...] SARS-CoV-2. Performed By: #### C VDTB #### [facility] [address] [place], [place] [address] Dr. Joe Shea HEP B SURFACE ANTIGEN SCREEN on 06-12-2022 HBsAg Screen Negative Normal Negative [facility] Comment on above: Performed By: #### D TRESA #### [facility] [address] [address] [address] Joe Shea HIV 1 AND 2 WITH REFLEXon HIV Screen 4th Generation wRfx Non-Reactive Normal Non Reactive [facility] Comment on above: Result Comment: HIV Negative HIV-1/HIV-2 antibodies and HIV-1 p24 antigen were NOT detected. There is no laboratory evidence of HIV infection. Performed By: #### C CARLYN DE JESUS, NESTOR #### [facility] [address] [address] [address] Joe Shea RPR QUANTon 06-12-2022 Rapid Plasma Reagin, Quant Non-Reactive Normal NonRea< 1:1 [facility] Comment on above: Result Comment: Plea se Note: This test does not meet current guidelines for screening and diagnosis of syphilis. This test is intended for following treatment response in patients being treated for syphilis infection. To screen for syphilis infection, a reflex cascade that includes both RPR and a treponema-specific assay should be utilized, such as Treponema pallidum (Syphilis) Screening [place] (739304) or Rapid Plasma Reagin (RPR) Test With Reflex to Quantitative RPR and Confirmatory Treponema pallidum Antibodies ([id number]). Performed By: #### C CARLYN DE JESUS AMY #### [facility] [address] [address] [address] Joe Shea Physician Referralon 022 Physician Referral [id number]#1.00CD:127 Normal [facility] US PELVIS AND TRANSVAGon US PELVIS AND [...] ANGIE MEJIA Date: 2022-05-31 17:18 Normal [facility] AMYLASEon 05-23-2022 Amylase [Catalytic activity/Vol] 24 U/L Critically low 25-115 [facility] Comment on above: Performed By: #### C CARLYN DE JESUS AMY #### [facility] [address] [place] [address] Dr. Joe Shea CBC AUTO DIFFon 05-23-2022 Eosinophils/100 WBC (Bld) 1.5 % Normal 0.9-7.0 [facility] Comment on above: Performed By: #### L BCLH #### [facility] [address] [address] [address] Joe Shea Erythrocyte distribution width (RBC) [Ratio] 13.5 % Normal 11.0-15.0 [facility] Comment on above: Performed By: #### L BCL #### [facility] [address] [address] [address] Joe Shea Hematocrit (Bld) [Volume fraction] 33.0 % Critically low 36.0-48.0 [facility] Comment on above: Performed By: #### L BCLH #### [facility] [address] [address] [address] Joe Shea Hemoglobin (Bld) [Mass/Vol] 10.7 g/dL Critically low 12.0-16.0 [facility] Comment on above: Performed By: #### L BCLH #### [facility] [address] [address] [address] Joe Shea LYMPH # 1.2 103/ul Normal 1.2-3.8 [facility] Comment on above: Performed By: #### L BCLH #### [facility] [address] [place] [address] Dr. Joe Shea Lymphocytes/100 WBC (Bld) 20.2 % Critically low 20.5-6 0.0 [facility] Comment on above: Performed By: #### L BCLH #### [facility] [address] [place] [address] Dr. Joe Shea MCH (RBC) [Entitic mass] 28.0 pg Normal 26.7-34.0 [facility] Comment on above: Performed By: #### L BCLH #### [facility] [address] [place] [address] Dr. Joe Shea MCHC (RBC) [Mass/Vol] 32.4 g/dL Normal 29.9-35.2 [facility] Comment on above: Performed By: #### L BCLH #### [facility] [address] [place] [address] Dr. Joe Shea Monocytes/100 WBC (Bld) 7.9 % Normal 1.7-12.0 [facility] Comment on above: Performed By: #### L BCL #### [facility] [address] [place] [address] Dr. Joe Shea Neutrophils/100 WBC (Bld) 69.9 % Normal 43.0-75.0 [facility] Comment on above: Performed By: #### L BCLH #### [facility] [address] [place] [address] Dr. Joe Shea Platelet mean volume (Bld) [Entitic vol] 10.6 fL Normal 9.5-13.5 [facility] Comment on above: Performed By: #### L BCLH #### [facility] [address] [place] [address] Dr. Joe Shea PLT 233 103/ul Normal 150-450 [facility] Comment on above: Performed By: #### L BCLH #### [facility] [address] [place] [address] Dr. Jeo Shea RBC 3.82 106/ul Critically low 4.20-5.40 [facility] Comment on above: Performed By: #### L BCLH #### [facility] [address] [place] [address] Dr. Joe Shea WBC 6.1 103/ul Normal 4.0-11.0 [facility] Comment on above: Performed By: #### L BCLH #### [facility] [address] [place] [address] Dr. Joe Shea BASO # 0.0 103/ul Normal 0.0-0.1 [facility] Comment on above: Performed By: #### L BCLH #### [facility] [address] [place] [address] Dr. Joe Shea Performed By: #### C MP, LIPA, NESTOR #### [facility] [address] [place] [address] Dr. Joe Shea Basophils/100 WBC (Bld) 0.3 % Normal 0.2-2.0 [facility] Comment on above: Performed By: #### L BCLH #### [facility] [address] [place] [address] Dr. Joe Shea Performed By: #### C MP, LIPA, NESTOR #### [facility] [address] [place] [address] Dr. Joe Shea EO # 0.1 103/ul Normal 0.0-0.7 [facility] Comment on above: Performed By: #### L BCLH #### [facility] [address] [place] [address] Dr. Joe Shea Performed By: #### C MP, LIPA, NESTOR #### [facility] [address] [place] [address] Dr. Joe Shea Eosinophils/100 WBC (Bld) 1.9 % Normal 0.9-7.0 [facility] Comment on above: Performed By: #### C MP, LIPA, NESTOR #### [facility] [address] [place] [address] Dr. Joe Shea Erythrocyte distribution width (RBC) [Ratio] 13.4 % Normal 11.0-15.0 [facility] Comment on above: Performed By: #### C CARLYN DE JESUS AMY #### [facility] [address] [place] [address] Dr. Joe Shea Hematocrit (Bld) [Volume fraction] 32.3 % Critically low 36.0-48.0 [facility] Comment on above: Performed By: #### C CARLYN DE JESUS NESTOR #### [facility] [address] [place] [address] Dr. Joe Shea Hemoglobin (Bld) [Mass/Vol] 10.6 g/dL Critically low 12.0-16.0 [facility] Comment on above: Performed By: #### C CARLYN DE JESUS AMY #### [facility] [address] [place] [address] Dr. Joe Shea IG # 0.01 10e3/ul Normal 0.00-0.03 [facility] Comment on above: Performed By: #### L BCL #### [facility] [address] [place] [address] Dr. Joe Shea Performed By: #### C CARLYN DE JESUS AMY #### [facility] [address] [place] [address] Dr. Joe Shea IG % 0.2 % Normal 0.0-0.5 [facility] Comment on above: Performed By: #### L BCLH #### [facility] [address] [place] [address] Dr. Joe Shea Performed By: #### C CARLYN DE JESUS, NESTOR #### [facility] [address] [place] [address] Dr. Joe Shea LYMPH # 1.0 103/ul Critically low 1.2-3.8 [facility] Comment on above: Performed By: #### C CARLYN DE JESUS, NESTOR #### [facility] [address] [place] [address] Dr. Joe Shea Lymphocytes/100 WBC (Bld) 16.6 % Critically low 20.5-6 0.0 [facility] Comment on above: Performed By: #### C MP, LIPA, NESTOR #### [facility] [address] [place] [address] Dr. Joe Shea MANUAL DIFF REQ NO Normal [facility] Comment on above: Performed By: #### L BCLH #### [facility] [address] [place] [address] Dr. Joe Shea Performed By: #### C MP, LIPA, NESTOR #### [facility] [address] [place] [address] Dr. Joe Shea MCH (RBC) [Entitic mass] 28.3 pg Normal 26.7-34.0 [facility] Comment on above: Performed By: #### C MP, LIPA, NESTOR #### [facility] [address] [place] [address] Dr. Joe Shea MCHC (RBC) [Mass/Vol] 32.8 g/dL Normal 29.9-35.2 [facility] Comment on above: Performed By: #### C MP, LIPA, NESTOR #### [facility] [address] [place] [address] Dr. Joe Shea MCV (RBC) [Entitic vol] 86.4 fL Normal 81.0-99.0 [facility] Comment on above: Performed By: #### L BCLH #### [facility] [address] [place] [address] Dr. Joe Shea Performed By: #### C MP, LIPA, NESTOR #### [facility] [address] [place] [address] Dr. Joe Shea MONO # 0.5 103/ul Normal 0.3-0.8 [facility] Comment on above: Performed By: #### L BCLH #### [facility] [address] [place] [address] Dr. Joe Shea Performed By: #### C MP, LIPA, NESTOR #### [facility] [address] [place] [address] Dr. Joe Shea Monocytes/100 WBC (Bld) 9.1 % Normal 1.7-12.0 [facility] Comment on above: Performed By: #### C NEAL LIPA, NESTOR #### [facility] [address] [place] [address] Dr. Joe Shea NEUT # 4.3 103/ul Normal 1.4-6.5 [facility] Comment on above: Performed By: #### L DAIN #### [facility] [address] [place] [address] Dr. Joe Shea Performed By: #### C NEAL LIPA, NESTOR #### [facility] [address] [place] [address] Dr. Joe Shea Neutrophils/100 WBC (Bld) 71.9 % Normal 43.0-75.0 [facility] Comment on above: Performed By: #### C NEAL LIPA, NESTOR #### [facility] [address] [place] [address] Dr. Joe Shea Platelet mean volume (Bld) [Entitic vol] 11.0 fL Normal 9.5-13.5 [facility] Comment on above: Performed By: #### C NEAL LIPA, NESTOR #### [facility] [address] [place] [address] Dr. Joe Shea PLT 224 103/ul Normal 150-450 [facility] Comment on above: Performed By: #### C NEAL LIPA, NESTOR #### [facility] [address] [place] [address] Dr. Joe Shea RBC 3.74 106/ul Critically low 4.20-5.[address] [facility] Comment on above: Performed By: #### C MP, LIPA, NESTOR #### [facility] [address] [place] [address] Dr. Joe Shea WBC 5.9 103/ul Normal 4.0-11.0 [facility] Comment on above: Performed By: #### C NEAL LIPA, NESTOR #### [facility] [address] [place] [address] Dr. Joe Shea ER URINE PROFILEon 2 Bilirubin Ql (U) Negative Normal NEGATIVE [facility] Comment on above: Performed By: #### L BCL #### [facility] [address] [place] [address] Dr. Joe Shea Clarity (U) CLEAR Normal CLEAR [facility] Comment on above: Performed By: #### L BCLH #### [facility] [address] [place] [address] Dr. Joe Shea Color (U) LT. YELLOW Normal YELLOW [facility] Comment on above: Performed By: #### L BCLH #### [facility] [address] [place] [address] Dr. Joe YUNG A micrscopic examination will be performed if indicated. Normal [facility] Comment on above: Performed By: #### L BCLH #### [facility] [address] [place] [address] Dr. Joe Shea Glucose Ql (U) Negative Normal NEGATIVE [facility] Comment on above: Performed By: #### L BCLH #### [facility] [address] [place] [address] Dr. Joe Shea Hemoglobin Ql (U) Negative Normal NEGATIVE [facility] Comment on above: Performed By: #### L BCL #### [facility] [address] [place] [address] Dr. Joe Shea Ketones Ql (U) Negative Normal NEGATIVE [facility] Comment on above: Performed By: #### L BCLH #### [facility] [address] [place] [address] Dr. Joe Shea LEUKOCYTES Negative Normal NEGATIVE [facility] Comment on above: Performed By: #### L BCLH #### [facility] [address] [place] [address] Dr. Joe Shea Nitrite Ql (U) Negative Normal NEGATIVE [facility] Comment on above: Performed By: #### L BCLH #### [facility] [address] [place] [address] Dr. Joe Shea pH (U) 5.5 [pH] Normal 5-9 [facility] Comment on above: Performed By: #### L BCLH #### [facility] [address] [place] [address] Dr. Joe Shea SPEC GRAVITY 1.020 Normal 1.005-<=1.02 5 [facility] Comment on above: Performed By: #### [facility] #### [facility] [address] [place] [address] Dr. Joe Shea UA PROTEIN Negative Normal NEGATIVE/ TRACE [facility] Comment on above: Performed By: #### [facility] #### [facility] [address] [place] [address] Dr. Joe Shea UR MICRO IND NOT INDICATED Normal [facility] Comment on above: Performed By: #### L [facility] #### [facility] [address] [place] [address] Dr. Joe Shea Urobilinogen Qn (U) 0.2 {Pascual'U}/dL Normal 0.2 - 1. 0 [facility] Comment on above: Performed By: #### L [facility] #### [facility] [address] [place] [address] Dr. Joe Shea LIPASEon 05-23-2022 Lipase [Catalytic activity/Vol] 63.0 U/L Critically low 73.0-393.0 [facility] Comment on above: Performed By: #### C CARLYN DE JESUS AMY #### [facility] [address] [place] [address] Dr. Joe Shea URon 05-23-2022 , QUAL Negative Normal NEGATIVE [facility] Comment on above: Performed By: #### C BC #### [facility] [address] [place] [address] Dr. Joe Shea PROF 14(COMP METB)on 022 Albumin [Mass/Vol] 3.7 g/dL Normal 3.4-5.0 [facility] Comment on above: Performed By: #### C CARLYN DE JESUS AMY #### [facility] [address] [place] [address] Dr. Joe Shea Albumin/Globulin [Mass ratio] 1.4 {ratio} Normal [facility] Comment on above: Performed By: #### C CARLYN DE JESUS AMY #### [facility] [address] [address] [address] Joe Shea ALP [Catalytic activity/Vol] 44 U/L Critically low 46-116 [facility] Comment on above: Performed By: #### C MP LIPA, NESTOR #### [facility] [address] [address] [address] Joe Shea ALT [Catalytic activity/Vol] 24 U/L Normal 14-59 [facility] Comment on above: Performed By: #### C MP, LIPA, NESTOR #### [facility] [address] [place] [address] Dr. Joe Shea Anion gap [Moles/Vol] 9.1 mmol/L Normal [facility] Comment on above: Performed By: #### C MP LIPA, NESTOR #### [facility] [address] [place] [address] Dr. Joe Shea AST [Catalytic activity/Vol] 18 U/L Normal 15-37 [facility] Comment on above: Performed By: #### C MP LIPA, NESTOR #### [facility] [address] [place] [address] Dr. Joe Shea Bilirubin [Mass/Vol] 0.2 mg/dL Normal 0.2-1.0 [facility] Comment on above: Performed By: #### C MP, LIPA, NESTOR #### [facility] [address] [place] [address] Dr. Joe Shea Calcium [Mass/Vol] 8.3 mg/dL Critically low 8.5-10.1 Th [facility] Comment on above: Performed By: #### C MP, LIPA, NESTOR #### [facility] [address] [place] [address] Dr. Joe Shea Chloride [Moles/Vol] 105 mmol/L Normal 98-107 [facility] Comment on above: Performed By: #### C MP, LIPA, NESTOR #### [facility] [address] [place] [address] Dr. Joe Shea CO2 [Moles/Vol] 29.7 mmol/L Normal 21.0-32.0 [facility] Comment on above: Performed By: #### C MP, LIPA, NESTOR #### [facility] [address] [address] [address] Joe Shea Creatinine [Mass/Vol] 0.61 mg/dL Normal 0.55-1.02 [facility] Comment on above: Performed By: #### C MP, LIPA, NESTOR #### [facility] [address] [address] [address] Joe Shea EGFR-AF CYPRIOT >60 Normal >=60 [facility] Comment on above: Performed By: #### C MP, LIPA, NESTOR #### [facility] [address] [address] [address] Joe Shea EGFR-NON AF CYPRIOT >60 Normal >=60 [facility] Comment on above: Performed By: #### C MP, LIPA, NESTOR #### [facility] [address] [address] [address] Joe Shea Globulin (S) [Mass/Vol] 2.6 g/dL Normal T [facility] Comment on above: Performed By: #### C MP, LIPA, NESTOR #### [facility] [address] [address] [address] Joe Shea Glucose [Mass/Vol] 92 mg/dL Normal 74-106 [facility] Comment on above: Performed By: #### C MP, LIPA, NESTOR #### [facility] [address] [address] [address] Joe Shea Potassium [Moles/Vol] 3.8 mmol/L Normal 3.5-5.1 [facility] Comment on above: Performed By: #### C MP, LIPA, NESTOR #### [facility] [address] [address] [address] Joe Shea Protein [Mass/Vol] 6.3 g/dL Critically low 6.4-8.2 Th [facility] Comment on above: Performed By: #### C MP, LIPA, NESTOR #### [facility] [address] [address] [address] Joe Shea Sodium [Moles/Vol] 140 mmol/L Normal 136-145 [facility] Comment on above: Performed By: #### C MP, LIPA, NESTOR #### [facility] [address] [address] [address] Joe Shea Urea nitrogen [Mass/Vol] 9.0 mg/dL Normal 7.0-18.0 [facility] Comment on above: Performed By: #### C MP, LIPA, NESTOR #### [facility] [address] [address] [address] Joe Shea Urea nitrogen/Creatinine [Mass ratio] 14.8 mg/mg Normal [facility] Comment on above: Performed By: #### C MP, LIPA, NESTOR #### [facility] [address] [address] [address] Joe Shea US SINGLE QUAD RT [...] SHIRLEY PATEL Date: 2022-05-23 08:29 Normal [facility] AMYLASEon 05-22-2022 Amylase [Catalytic activity/Vol] 50 U/L Normal 25-115 [facility] Comment on above: Performed By: #### A MY, CMP, LIPA #### [facility] [address] [address] [address] Joe Shea CBC AUTO DIFFon 05-22-2022 BASO # 0.1 103/ul Normal 0.0-0.1 [facility] Comment on above: Performed By: #### C CARLYN DE JESUS AMY #### [facility] [address] [place] [address] Dr. Joe Shea Basophils/100 WBC (Bld) 0.3 % Normal 0.2-2.0 [facility] Comment on above: Performed By: #### C CARLYN DE JESUS, NESTOR #### [facility] [address] [place] [address] Dr. Joe Shea EO # 0.0 103/ul Normal 0.0-0.7 [facility] Comment on above: Performed By: #### C CARLYN DE JESUS, NESTOR #### [facility] [address] [place] [address] Dr. Joe Shea Eosinophils/100 WBC (Bld) 0.2 % Critically low 0.9-7. 0 [facility] Comment on above: Performed By: #### C CARLYN DE JESUS, NESTOR #### [facility] [address] [place] [address] Dr. Joe Shea Erythrocyte distribution width (RBC) [Ratio] 13.3 % Normal 11.0-15.0 [facility] Comment on above: Performed By: #### C CARLYN DE JESUS, NESTOR #### [facility] [address] [place] [address] Dr. Joe Shea Hematocrit (Bld) [Volume fraction] 39.0 % Normal 36.0-48.0 [facility] Comment on above: Performed By: #### C CARLYN DE JESUS, NESTOR #### [facility] [address] [place] [address] Dr. Joe Shea Hemoglobin (Bld) [Mass/Vol] 12.7 g/dL Normal 12.0-16.0 [facility] Comment on above: Performed By: #### C CARLYN DE JESUS, NESTOR #### [facility] [address] [place] [address] Dr. Joe Shea IG # 0.05 10e3/ul Critically high 0.00-0.03 [facility] Comment on above: Performed By: #### C MP, LIPA, NESTOR #### [facility] [address] [place] [address] Dr. Joe Shea IG % 0.3 % Normal 0.0-0.5 [facility] Comment on above: Performed By: #### C MP, LIPA, NESTOR #### [facility] [address] [place] [address] Dr. Joe Shea LYMPH # 0.8 103/ul Critically low 1.2-3.8 [facility] Comment on above: Performed By: #### C MP, LIPA, NESTOR #### [facility] [address] [place] [address] Dr. Joe Shea Lymphocytes/100 WBC (Bld) 4.4 % Critically low 20.5-6 0.0 [facility] Comment on above: Performed By: #### C MP, LIPA, NESTOR #### [facility] [address] [place] [address] Dr. Joe Shea MANUAL DIFF REQ NO Normal [facility] Comment on above: Performed By: #### C MP, LIPA, NESTOR #### [facility] [address] [place] [address] Dr. Joe Shea MCH (RBC) [Entitic mass] 28.1 pg Normal 26.7-34.0 [facility] Comment on above: Performed By: #### C MP, LIPA, NESTOR #### [facility] [address] [place] [address] Dr. Joe Shea MCHC (RBC) [Mass/Vol] 32.6 g/dL Normal 29.9-35.2 [facility] Comment on above: Performed By: #### C MP, LIPA, NESTOR #### [facility] [address] [place] [address] Dr. Joe Shea MCV (RBC) [Entitic vol] 86.3 fL Normal 81.0-99.0 [facility] Comment on above: Performed By: #### C MP, LIPA, NESTOR #### [facility] [address] [place] [address] Dr. Joe Shea MONO # 0.4 103/ul Normal 0.3-0.8 [facility] Comment on above: Performed By: #### C CARLYN DE JESUS AMY #### [facility] [address] [place] [address] Dr. Joe Shea Monocytes/100 WBC (Bld) 2.2 % Normal 1.7-12.0 [facility] Comment on above: Performed By: #### C CARLYN DE JESUS, NESTOR #### [facility] [address] [place] [address] Dr. Joe Shea NEUT # 16.7 103/ul Critically high 1.4-6.5 [facility] Comment on above: Performed By: #### C CARLYN DE JESUS, NESTOR #### [facility] [address] [place] [address] Dr. Joe Shea Neutrophils/100 WBC (Bld) 92.6 % Critically high 43.0- 75.0 [facility] Comment on above: Performed By: #### C CARLYN DE JESUS, NESTOR #### [facility] [address] [place] [address] Dr. Joe Shea Platelet mean volume (Bld) [Entitic vol] 11.0 fL Normal 9.5-13.5 [facility] Comment on above: Performed By: #### C CARLYN DE JESUS, NESTOR #### [facility] [address] [place] [address] Dr. Joe Shea PLT 323 103/ul Normal 150-450 [facility] Comment on above: Performed By: #### C CARLYN DE JESUS, NESTOR #### [facility] [address] [place] [address] Dr. Joe Shea RBC 4.52 106/ul Normal 4.20-5.40 [facility] Comment on above: Performed By: #### C HUGO DE JESUSA, NESTOR #### [facility] [address] [place] [address] Dr. Joe Shea WBC 18.0 103/ul Critically high 4.0-11.0 [facility] Comment on above: Performed By: #### C MP, LIPA, NESTOR #### [facility] [address] [address] [address] Joe MOORE URINE PROFILEon 2 Bilirubin Ql (U) Negative Normal NEGATIVE [facility] Comment on above: Performed By: #### Althea DURÁNUL #### [facility] [address] [address] [address] Joe Shea Clarity (U) CLEAR Normal CLEAR [facility] Comment on above: Performed By: #### Althea DURÁNUL #### [facility] [address] [address] [address] Joe Shea Color (U) YELLOW Normal YELLOW [facility] Comment on above: Performed By: #### Althea GTZ #### [facility] [address] [address] [address] Joe YUNG A micrscopic examination will be performed if indicated. Normal [facility] Comment on above: Performed By: #### Althea GTZ #### [facility] [address] [address] [address] Joe Shea Glucose Ql (U) Negative Normal NEGATIVE [facility] Comment on above: Performed By: #### Althea GTZ #### [facility] [address] [address] [address] Joe Shea Hemoglobin Ql (U) Negative Normal NEGATIVE [facility] Comment on above: Performed By: #### Althea GTZ #### [facility] [address] [address] [address] Joe Shea Ketones Ql (U) 15 mg/dl Abnormal NEGATIVE [facility] Comment on above: Performed By: #### Althea GTZ #### [facility] [address] [address] [address] Joe Shea LEUKOCYTES Negative Normal NEGATIVE [facility] Comment on above: Performed By: #### Althea GTZ #### [facility] [address] [address] [address] Joe Shea Nitrite Ql (U) Negative Normal NEGATIVE [facility] Comment on above: Performed By: #### Althea GTZ #### [facility] [address] [address] [address] Joe Shea pH (U) 5.5 [pH] Normal 5-9 [facility] Comment on above: Performed By: #### Althea GTZ #### [facility] [address] [place] [address] Dr. Joe Shea SPEC GRAVITY >=1.030 Abnormal 1.005-<=1.[address] [place] [address] Comment on above: Performed By: #### Althea GTZ #### [facility] [address] [place] [address] Dr. Joe Shea UA PROTEIN Negative Normal NEGATIVE/ TRACE [facility] Comment on above: Performed By: #### Althea GTZ #### [facility] [address] [place] [address] Dr. Joe Shea UR MICRO IND NOT INDICATED Normal [facility] Comment on above: Performed By: #### Althea GTZ #### [facility] [address] [place] [address] Dr. Joe Shea Urobilinogen Qn (U) 1.0 {Pascual'U}/dL Normal 0.2 - 1. 0 [facility] Comment on above: Performed By: #### Althea GTZ #### [facility] [address] [place] [address] Dr. Joe Shea LACTATE/LACTIC ACIDon 2021 Lactate [Moles/Vol] 1.0 mmol/L Normal 0.4-1.9 [facility] Comment on above: Performed By: #### C BC #### [facility] [address] [place] [address] Dr. Joe Shea LIPASEon 05-22-2022 Lipase [Catalytic activity/Vol] 205.0 U/L Normal 73.0-393.0 [facility] Comment on above: Performed By: #### A MY, CMP, LIPA #### [facility] [address] [place] [address] Dr. Joe Shea MRI BRAIN WO CONon [...] ANGIE LO Date: 2022-05-22 16:17 Normal [facility] URon 05-22-2022 , QUAL Negative Normal NEGATIVE [facility] Comment on above: Performed By: #### Althea GTZ #### [facility] [address] [place] [address] Dr. Joe Shea PROF 14(COMP METB)on 022 Albumin [Mass/Vol] 4.5 g/dL Normal 3.4-5.0 [facility] Comment on above: Performed By: #### Althea GTZ #### [facility] [address] [place] [address] Dr. Joe Shea Albumin/Globulin [Mass ratio] 1.4 {ratio} Normal [facility] Comment on above: Performed By: #### Althea GTZ #### [facility] [address] [place] [address] Dr. Joe Shea ALP [Catalytic activity/Vol] 60 U/L Normal 46-116 [facility] Comment on above: Performed By: #### Althea GTZ #### [facility] [address] [place] [address] Dr. Joe Shea ALT [Catalytic activity/Vol] 17 U/L Normal 14-59 [facility] Comment on above: Performed By: #### Althea GTZ #### [facility] [address] [place] [address] Dr. Joe Shea Anion gap [Moles/Vol] 10.9 mmol/L Normal Th [facility] Comment on above: Performed By: #### Althea GTZ #### [facility] [address] [address] [address] Joe Shea AST [Catalytic activity/Vol] 19 U/L Normal 15-37 [facility] Comment on above: Performed By: #### Althea GTZ #### [facility] [address] [address] [address] Joe Shea Bilirubin [Mass/Vol] 0.8 mg/dL Normal 0.2-1.0 [facility] Comment on above: Performed By: #### Althea GTZ #### [facility] [address] [place] [address] Dr. Joe Shea Calcium [Mass/Vol] 9.0 mg/dL Normal 8.5-10.1 [facility] Comment on above: Performed By: #### Althea GTZ #### [facility] [address] [address] [address] Joe Shea Chloride [Moles/Vol] 102 mmol/L Normal 98-107 [facility] Comment on above: Performed By: #### Althea GTZ #### [facility] [address] [place] [address] Dr. Joe Shea CO2 [Moles/Vol] 28.7 mmol/L Normal 21.0-32.0 [facility] Comment on above: Performed By: #### Althea GTZ #### [facility] [address] [place] [address] Dr. Joe Shea Creatinine [Mass/Vol] 0.73 mg/dL Normal 0.55-1.02 [facility] Comment on above: Performed By: #### Althea GTZ #### [facility] [address] [place] [address] Dr. Joe Shea EGFR-AF CYPRIOT >60 Normal >=60 [facility] Comment on above: Performed By: #### Althea GTZ #### [facility] [address] [place] [address] Dr. Joe Shea EGFR-NON AF CYPRIOT >60 Normal >=60 [facility] Comment on above: Performed By: #### Althea GTZ #### [facility] [address] [address] [address] Joe Shea Globulin (S) [Mass/Vol] 3.2 g/dL Normal [facility] Comment on above: Performed By: #### Althea GTZ #### [facility] [address] [address] [address] Joe Shea Glucose [Mass/Vol] 113 mg/dL Critically high 74-106 [facility] Comment on above: Performed By: #### Althea GTZ #### [facility] [address] [place] [address] Dr. Joe Shea Potassium [Moles/Vol] 3.6 mmol/L Normal 3.5-5.1 [facility] Comment on above: Performed By: #### Althea GTZ #### [facility] [facility] [address] [place] [address] Dr. Joe Shea Protein [Mass/Vol] 7.7 g/dL Normal 6.4-8.2 [facility] Comment on above: Performed By: #### Althea GTZ #### [facility] [address] [place] [address] Dr. Joe Shea Sodium [Moles/Vol] 138 mmol/L Normal 136-145 [facility] Comment on above: Performed By: #### Althea GTZ #### [facility] [address] [place] [address] Dr. Joe Shea Urea nitrogen [Mass/Vol] 9.0 mg/dL Normal 7.0-18.0 [facility] Comment on above: Performed By: #### Althea GTZ #### [facility] [address] [place] [address] Dr. Joe Shea Urea nitrogen/Creatinine [Mass ratio] 12.3 mg/mg Normal [facility] Comment on above: Performed By: #### Althea GTZ #### [facility] [address] [place] [address] Dr. Joe Shea XR CHEST 2 Von [...] 02:56 Normal [facility] PROGESTERONEon 05-08-2022 Progesterone 18.1 ng/mL Normal [facility] Comment on above: Result Comment: Foll icular phase 0.1 - 0.9 Luteal phase 1.8 - 23.9 Ovulation phase 0.1 - 12.0 First trimester 11.0 - 44.3 Second trimester 25.4 - 83.3 Third trimester 58.7 - 214.0 Postmenopausal 0.0 - 0.1 Performed By: #### C BC #### [facility] [address] [address] [address] Joe Shea DHEA SERUMon 04-12-2022 Dehydroepiandrosterone (DHEA) 577 ng/dL Normal 31-701 [facility] Comment on above: Result Comment: Age 1 [...] 701 Performed By: #### C BC #### [facility] [address] [address] [address] Joe Shea PROGESTERONEon 04-10-2022 Progesterone 16.0 ng/mL Normal [facility] Comment on above: Result Comment: Foll icular phase 0.1 - 0.9 Luteal phase 1.8 - 23.9 Ovulation phase 0.1 - 12.0 First trimester 11.0 - 44.3 Second trimester 25.4 - 83.3 Third trimester 58.7 - 214.0 Postmenopausal 0.0 - 0.1 Performed By: #### D TRESA #### [facility] [address] [place] [address] Dr. Joe Shea DHEA-SULFATEon 04-06-2022 DHEA-Sulfate 241.0 ug/dL Normal 110.0-431.7 [facility] Comment on above: Performed By: #### Althea GTZ #### [facility] [address] [place] [address] Dr. Joe Shea FSHon 04-06-2022 FSH 6.6 mIU/mL Normal [facility] Comment on above: Result Comment: Adul t Female: Follicular phase 3.5 - 12.5 Ovulation phase 4.7 - 21.5 Luteal phase 1.7 - 7.7 Postmenopausal 25.8 - 134.8 Performed By: #### Althea GTZ #### [facility] [address] [place] [address] Dr. Joe Shea LUTEINIZING HORMONE (LH)on LH 19.8 mIU/mL Normal [facility] Comment on above: Result Comment: Adul t Female: Follicular phase 2.4 - 12.6 Ovulation phase 14.0 - 95.6 Luteal phase 1.0 - 11.4 Postmenopausal 7.7 - 58.5 Performed By: #### L BCL #### [facility] [address] [place] [address] Dr. Joe Shea CBC AUTO DIFFon 04-05-2022 BASO # 0.1 103/ul Normal 0.0-0.1 [facility] Comment on above: Performed By: #### C BC #### [facility] [address] [place] [address] Dr. Joe Shea Basophils/100 WBC (Bld) 0.9 % Normal 0.2-2.0 [facility] Comment on above: Performed By: #### C BC #### [facility] [address] [place] [address] Dr. Joe Shea EO # 0.2 103/ul Normal 0.0-0.7 [facility] Comment on above: Performed By: #### C BC #### [facility] [address] [place] [address] Dr. Joe Shea Eosinophils/100 WBC (Bld) 2.6 % Normal 0.9-7.0 [facility] Comment on above: Performed By: #### C BC #### [facility] [address] [place] [address] Dr. Joe Shea Erythrocyte distribution width (RBC) [Ratio] 13.1 % Normal 11.0-15.0 [facility] Comment on above: Performed By: #### C BC #### [facility] [address] [place] [address] Dr. Joe Shea Hematocrit (Bld) [Volume fraction] 38.2 % Normal 36.0-48.0 [facility] Comment on above: Performed By: #### C BC #### [facility] [address] [place] [address] Dr. Joe Shea Hemoglobin (Bld) [Mass/Vol] 12.3 g/dL Normal 12.0-16.0 [facility] Comment on above: Performed By: #### C BC #### [facility] [address] [place] [address] Dr. Joe Shea IG # 0.01 10e3/ul Normal 0.00-0.03 [facility] Comment on above: Performed By: #### C BC #### [facility] [address] [place] [address] Dr. Joe Shea IG % 0.2 % Normal 0.0-0.5 [facility] Comment on above: Performed By: #### C BC #### [facility] [address] [place] [address] Dr. Joe Shea LYMPH # 1.7 103/ul Normal 1.2-3.8 [facility] Comment on above: Performed By: #### C BC #### [facility] [address] [place] [address] Dr. Joe Shea Lymphocytes/100 WBC (Bld) 29.2 % Normal 20.5-60.0 [facility] Comment on above: Performed By: #### C BC #### [facility] [address] [place] [address] Dr. Joe Shea MANUAL DIFF REQ NO Normal [facility] Comment on above: Performed By: #### C BC #### [facility] [address] [place] [address] Dr. Joe Shea MCH (RBC) [Entitic mass] 28.4 pg Normal 26.7-34.0 [facility] Comment on above: Performed By: #### C BC #### [facility] [address] [place] [address] Dr. Joe Shea MCHC (RBC) [Mass/Vol] 32.2 g/dL Normal 29.9-35.2 [facility] Comment on above: Performed By: #### C BC #### [facility] [address] [place] [address] Dr. Joe Shea MCV (RBC) [Entitic vol] 88.2 fL Normal 81.0-99.0 [facility] Comment on above: Performed By: #### C BC #### [facility] [address] [place] [address] Dr. Joe Shea MONO # 0.5 103/ul Normal 0.3-0.8 [facility] Comment on above: Performed By: #### C BC #### [facility] [address] [place] [address] Dr. Joe Shea Monocytes/100 WBC (Bld) 8.2 % Normal 1.7-12.0 [facility] Comment on above: Performed By: #### C BC #### [facility] [address] [place] [address] Dr. Joe Shea NEUT # 3.4 103/ul Normal 1.4-6.5 [facility] Comment on above: Performed By: #### C BC #### [facility] [address] [place] [address] Dr. Joe Shea Neutrophils/100 WBC (Bld) 58.9 % Normal 43.0-75.0 [facility] Comment on above: Performed By: #### C BC #### [facility] [address] [place] [address] Dr. Joe Shea Platelet mean volume (Bld) [Entitic vol] 11.5 fL Normal 9.5-13.5 [facility] Comment on above: Performed By: #### C BC #### [facility] [address] [address] [address] Joe Shea PLT 233 103/ul Normal 150-450 [facility] Comment on above: Performed By: #### C BC #### [facility] [address] [address] [address] Joe Shea RBC 4.33 106/ul Normal 4.20-5.40 [facility] Comment on above: Performed By: #### C BC #### [facility] [address] [address] [address] Joe Shea WBC 5.8 103/ul Normal 4.0-11.0 [facility] Comment on above: Performed By: #### C BC #### [facility] [address] [place] [address] Dr. Joe Shea GLYCOHEMOGLOBIN A1Con 2021 ADA RECOMMENDATION SEE BELOW Normal [facility] Comment on above: Result Comment: ADA RECOMMENDED LIMIT 4.0 - 6.0 ADA THERAPEUTIC TARGET < 7.0 ACTION SUGGESTED > 7.0 Performed By: #### C MP LIPA, NESTOR #### [facility] [address] [place] [address] Dr. Joe Shea Glucose [Mass/Vol] 105 mg/dL Normal [facility] Comment on above: Performed By: #### C MP LIPA, NESTOR #### [facility] [address] [place] [address] Dr. Joe Shea HbA1c (Bld) [Mass fraction] 5.3 % Normal 4.5-6.2 [facility] Comment on above: Performed By: #### C MP LIPA, NESTOR #### [facility] [address] [place] [address] Dr. Joe Shea TSHon 04-05-2022 TSH 0.609 uIU/mL Normal 0.358-3.740 [facility] Comment on above: Performed By: #### C BC #### [facility] [address] [address] [address] Joe Shea US PELVIS AND TRANSVAGon [...] 17:23 Normal [facility] AMYLASEon 03-10-2022 Amylase [Catalytic activity/Vol] 64 U/L Normal 25-115 [facility] Comment on above: Performed By: #### C BC #### [facility] [address] [place] [address] Dr. Joe Shea CBC AUTO DIFFon 03-10-2022 BASO # 0.1 103/ul Normal 0.0-0.1 [facility] Comment on above: Performed By: #### C BC #### [facility] [address] [place] [address] Dr. Joe Shea Basophils/100 WBC (Bld) 0.6 % Normal 0.2-2.0 [facility] Comment on above: Performed By: #### C BC #### [facility] [address] [place] [address] Dr. Joe Shea EO # 0.3 103/ul Normal 0.0-0.7 [facility] Comment on above: Performed By: #### C BC #### [facility] [address] [place] [address] Dr. Joe Shea Eosinophils/100 WBC (Bld) 1.7 % Normal 0.9-7.0 [facility] Comment on above: Performed By: #### C BC #### [facility] [address] [place] [address] Dr. Joe Shea Erythrocyte distribution width (RBC) [Ratio] 13.1 % Normal 11.0-15.0 [facility] Comment on above: Performed By: #### C BC #### [facility] [address] [place] [address] Dr. Joe Shea Hematocrit (Bld) [Volume fraction] 37.9 % Normal 36.0-48.0 [facility] Comment on above: Performed By: #### C BC #### [facility] [address] [place] [address] Dr. Joe Shea Hemoglobin (Bld) [Mass/Vol] 12.2 g/dL Normal 12.0-16.0 [facility] Comment on above: Performed By: #### C BC #### [facility] [address] [place] [address] Dr. Joe Shea IG # 0.05 10e3/ul Critically high 0.00-0.03 [facility] Comment on above: Performed By: #### C BC #### [facility] [address] [place] [address] Dr. Joe Shea IG % 0.3 % Normal 0.0-0.5 [facility] Comment on above: Performed By: #### C BC #### [facility] [address] [place] [address] Dr. Joe Shea LYMPH # 4.7 103/ul Critically high 1.2-3.[address] [facility] Comment on above: Performed By: #### C BC #### [facility] [address] [place] [address] Dr. Joe Shea Lymphocytes/100 WBC (Bld) 28.3 % Normal 20.5-60.0 [facility] Comment on above: Performed By: #### C BC #### [facility] [address] [place] [address] Dr. Joe Shea MANUAL DIFF REQ NO Normal [facility] Comment on above: Performed By: #### C BC #### [facility] [address] [place] [address] Dr. Joe Shea MCH (RBC) [Entitic mass] 27.9 pg Normal 26.7-34.0 [facility] Comment on above: Performed By: #### C BC #### [facility] [address] [place] [address] Dr. Joe Shea MCHC (RBC) [Mass/Vol] 32.2 g/dL Normal 29.9-35.2 [facility] Comment on above: Performed By: #### C BC #### [facility] [address] [place] [address] Dr. Joe Shea MCV (RBC) [Entitic vol] 86.5 fL Normal 81.0-99.0 [facility] Comment on above: Performed By: #### C BC #### [facility] [address] [place] [address] Dr. Joe Shae MONO # 0.9 103/ul Critically high 0.3-0.8 [facility] Comment on above: Performed By: #### C BC #### [facility] [address] [place] [address] Dr. Joe Shea Monocytes/100 WBC (Bld) 5.5 % Normal 1.7-12.0 [facility] Comment on above: Performed By: #### C BC #### [facility] [address] [place] [address] Dr. Joe Shea NEUT # 10.5 103/ul Critically high 1.4-6.5 [facility] Comment on above: Performed By: #### C BC #### [facility] [address] [place] [address] Dr. Joe Shea Neutrophils/100 WBC (Bld) 63.6 % Normal 43.0-75.0 [facility] Comment on above: Performed By: #### C BC #### [facility] [address] [place] [address] Dr. Joe Shea Platelet mean volume (Bld) [Entitic vol] 11.1 fL Normal 9.5-13.5 [facility] Comment on above: Performed By: #### C BC #### [facility] [address] [place] [address] Dr. Joe Shea PLT 428 103/ul Normal 150-450 [facility] Comment on above: Performed By: #### C BC #### [facility] [address] [place] [address] Dr. Joe Shea RBC 4.38 106/ul Normal 4.20-5.40 [facility] Comment on above: Performed By: #### C BC #### [facility] [address] [address] [address] Joe Shea WBC 16.6 103/ul Critically high 4.0-11.0 [facility] Comment on above: Performed By: #### C BC #### [facility] [address] [place] [address] ABD/PELV W CONon [...] 16:59 Normal [facility] LIPASEon 03-10-2022 Lipase [Catalytic activity/Vol] 81.0 U/L Normal 73.0-393.0 [facility] Comment on above: Performed By: #### C BC #### [facility] [address] [place] [address] Dr. Joe Shea LIVER PROFILEon 03-10-2022 Albumin [Mass/Vol] 4.2 g/dL Normal 3.4-5.0 [facility] Comment on above: Performed By: #### C BC #### [facility] [address] [place] [address] Dr. Joe Shea Albumin/Globulin [Mass ratio] 1.4 {ratio} Normal [facility] Comment on above: Performed By: #### C BC #### [facility] [address] [place] [address] Dr. Joe Shea ALP [Catalytic activity/Vol] 50 U/L Normal 46-116 [facility] Comment on above: Performed By: #### C BC #### [facility] [address] [place] [address] Dr. Joe Shea ALT [Catalytic activity/Vol] 14 U/L Normal 14-59 [facility] Comment on above: Performed By: #### C BC #### [facility] [address] [place] [address] Dr. Joe Shea AST [Catalytic activity/Vol] 13 U/L Critically low 15-37 [facility] Comment on above: Performed By: #### C BC #### [facility] [address] [place] [address] Dr. Joe Shea BILI, CONJUGATED 0.1 mg/dL Normal 0.0-0.2 [facility] Comment on above: Performed By: #### C BC #### [facility] [address] [place] [address] Dr. Joe Shea Bilirubin [Mass/Vol] 0.3 mg/dL Normal 0.2-1.0 [facility] Comment on above: Performed By: #### C BC #### [facility] [address] [place] [address] Dr. Joe Shea Globulin (S) [Mass/Vol] 3.1 g/dL Normal T [facility] Comment on above: Performed By: #### C BC #### [facility] [address] [address] [address] Joe Shea Protein [Mass/Vol] 7.3 g/dL Normal 6.4-8.2 [facility] Comment on above: Performed By: #### C BC #### [facility] [address] [address] [address] Joe Shea PREG HCG QUALon 03-10-2022 , QUAL Negative Normal NEGATIVE [facility] Comment on above: Performed By: #### L BCLH #### [facility] [address] [address] [address] Joe Shea PROF CHEM 8 (BAS METB)on Anion gap [Moles/Vol] 17.6 mmol/L Normal [facility] Comment on above: Performed By: #### C MP, LIPA, NESTOR #### [facility] [address] [address] [address] Joe Shea Calcium [Mass/Vol] 9.0 mg/dL Normal 8.5-10.1 [facility] Comment on above: Performed By: #### C MP, LIPA, NESTOR #### [facility] [address] [address] [address] Joe Shea Chloride [Moles/Vol] 102 mmol/L Normal 98-107 [facility] Comment on above: Performed By: #### C MP, LIPA, NESTOR #### [facility] [address] [address] [address] Joe Shea CO2 [Moles/Vol] 23.4 mmol/L Normal 21.0-32.0 [facility] Comment on above: Performed By: #### C MP, LIPA, NESTOR #### [facility] [address] [address] [address] Joe Shea Creatinine [Mass/Vol] 0.84 mg/dL Normal 0.55-1.02 [facility] Comment on above: Performed By: #### C MP, LIPA, NESTOR #### [facility] [address] [address] [address] Joe Shea EGFR-AF CYPRIOT >60 Normal >=60 [facility] Comment on above: Performed By: #### C CARLYN DE JESUS, NESTOR #### [facility] [address] [place] [address] Dr. Joe Shea EGFR-NON AF CYPRIOT >60 Normal >=60 [facility] Comment on above: Performed By: #### C CARLYN DE JESUS, NESTOR #### [facility] [address] [place] [address] Dr. Joe Shea Glucose [Mass/Vol] 149 mg/dL Critically high 74-106 [facility] Comment on above: Performed By: #### C CARLYN DE JESUS, NESTOR #### [facility] [address] [place] [address] Dr. Joe Shea Potassium [Moles/Vol] 2.9 mmol/L Critically low 3.5-5.1 [facility] Comment on above: Performed By: #### C CARLYN DE JESUS, NESTOR #### [facility] [address] [place] [address] Dr. Joe Shea Sodium [Moles/Vol] 139 mmol/L Normal 136-145 [facility] Comment on above: Performed By: #### C CARLYN DE JESUS, NESTOR #### [facility] [address] [place] [address] Dr. Joe Shea Urea nitrogen [Mass/Vol] 11.0 mg/dL Normal 7.0-18.0 [facility] Comment on above: Performed By: #### C CARLYN DE JESUS, NESTOR #### [facility] [address] [place] [address] Dr. Joe Shea Urea nitrogen/Creatinine [Mass ratio] 13.1 mg/mg Normal [facility] Comment on above: Performed By: #### C CARLYN DE JESUS, NESTOR #### [facility] [address] [place] [address] Dr. Joe Shea XR CSPINE 2_3 VIEWSon [...] ANGIE MEJIA Date: 2022-01-18 08:03 Normal [facility] C BP Strepon 12-23-2019 C BP Strep This is strictly a screening test for Strep Group A( Streptococcus pyogenes). No other pathogens will be noted. Final Backup plate negative for Group A Streptococus Resulted at [place] Comment on above: Performed By: #### B P #### [facility] (DEFAULT) [id number] [address] Ambulatory Patient Education on 12-21-2019 Ambulatory Patient Education Patient Education Materials Name: Racheal Louise Current Date: 12/21/2019 14:47:45 [place] : 2000 The following sheet(s) are the [...] a child 2 years or older. ? [id number] [employer]. [address] [place] [address]. All rights reserved. This information is not intended as a substitute for professional medical care. Always follow your healthcare professional's instructions. Strep today is Negative. Will send for culture to [facility] and notify if it returns positive. Take medication as prescribed. Discontinue for a negative strep culture. Discard and replace toothbrush after taking antibiotics for at least 24 hours. May use bjum-mko-lsdiuhd Tylenol and Motrin for pain relief. May use of aeez-zda-ewjyccj Chloraseptic throat spray, lozenges, cool or warm [...] 14:42:00 EDT, Pharmacy: [id number] Normal [facility] [place] Trackon 12-21-2019 BVO Red Swab # 1 Normal [facility] Comment on above: Performed By: #### O [facility] Tracking Order #### [facility] [address] [place] [address] Urgent Care Office/Clinic No sabiha 12-21-2019 Urgent [...] POC: negative. Swab will be sent to [facility] for culture. We will call if positive and treat appropriately. Additional Vitals Body Mass Index Measured: 18.43 kg/m2 Peripheral Pulse Rate: 111 bpm High Assessment/Plan 1. Sore throat Strep today is Negative. Will send for culture to [facility] and notify if it returns positive. Take medication as prescribed. Discontinue for a negative strep culture. Discard and replace toothbrush after taking antibiotics for at least 24 hours. May use rhul-xrc-lpxvyvb Tylenol and Motrin for pain relief. May use of ojgo-cob-mlocxnu Chloraseptic throat spray, lozenges, cool or warm [...] tabs, 0 Refill(s), 12/26/19 14:42:00 EDT, Pharmacy: [id number] Physician Comments Cent[facility] [...] by MelissapedroRosa Jean 12/21/19 15:01 EDT Normal [facility] Vital Signs Date Time Vital Sign Value Performing Clinician Facility 03-28-2023 10:16-0400 Body height 157.48 cm Referring Provider Unknown [id number] [address] [place] Work Phone: 03-28-2023 10:16-0400 Body mass index (BMI) [Ratio] 23.78 kg/m2 Referring Provider Unknown [id number] [address] [place] Work Phone: 03-28-2023 10:16-0400 Body surface area Derived from formula 1.59 m2 Referring Provider Unknown [id number] [address] [place] Work Phone: 03-28-2023 10:16-0400 Body weight 58.97 kg Referring Provider Unknown [id number] [address] [place] Work Phone: 03-28-2023 10:16-0400 Diastolic blood pressure 65 mm[Hg] Referring Provider Unknown [id number] [address] [place] Work Phone: 03-28-2023 10:16-0400 Heart rate 96 /min Referring Provider Unknown [id number] [address] [place] Work Phone: 03-28-2023 10:16-0400 Systolic blood pressure 107 mm[Hg] Referring Provider Unknown [id number] [address] [place] Work Phone: 03-28-2023 10:16-0400 0 1 Referring Provider Unknown [id number] [address] [place] Work Phone: Comment on above: [employer] 02-14-2023 09:15-0400 Body height 154.94 cm Filippo Larson Other [employer] Other 02-14-2023 09:15-0400 Body mass index (BMI) [Ratio] 21.73 kg/m2 Filippo Larson Other [facility] [employer] [employer] Other 02-14-2023 09:15-0400 Body weight 52.16 kg Filippo Larson Other [facility]ly [facility] [employer] Other 02-14-2023 09:15-0400 Diastolic blood pressure 68 mm[Hg] Filippo Larson Other [facility] [employer] Other 02-14-2023 09:15-0400 Systolic blood pressure 96 mm[Hg] Filippo Larson Other [facility] [employer] Other 07-17-2022 14:26-0500 Blood Pressure Location Mayito WHMSOFTL [facility] [place] 07-17-2022 14:26-0500 Diastolic blood pressure 70 mm[Hg] Mayito NILL [facility] [place] 07-17-2022 14:26-0500 Heart rate 70 /min Mayito NILL [facility] [place] 07-17-2022 14:26-0500 Respiratory rate 16 /min Mayito NILL [facility] [place] 07-17-2022 14:26-0500 Systolic blood pressure 102 mm[Hg] Mayito NILL [facility] [place] 03-09-2020 20:24-0400 BP Diastolic 61 mm[Hg] PHYSICIAN NO [facility] 03-09-2020 20:24-0400 BP Systolic 117 mm[Hg] PHYSICIAN NO [facility] 03-09-2020 20:24-0400 Pulse (Heart Rate) 85 /min PHYSICIAN NO [facility] 03-09-2020 20:24-0400 Pulse Oximetry 100 % PHYSICIAN NO [facility] 03-09-2020 20:24-0400 Respiratory Rate 24 /min PHYSICIAN NO [facility] 03-09-2020 18:49-0400 BMI (Body Mass Index) 20 kg/m2 PHYSICIAN NO [facility] 03-09-2020 18:49-0400 Body Temperature 98.7 [degF] PHYSICIAN NO [facility] 03-09-2020 18:49-0400 Body weight 49.7 kg PHYSICIAN NO [facility] 03-09-2020 18:49-0400 Height 157.48 cm PHYSICIAN NO [facility] Encounters Encounter Date Encounter Type Care Provider Facility Start: 07-08-2023 End: 07-08-2023 Office outpatient visit 15 minutes Paulie Cervantes MD Work Phone: Maternal- Medicine at [facility] Comment on above: 34 weeks gestation o f (Primary Dx); Poor growth affecting management of mother in third trimester, fetus 1 of multiple gestation; Dichorionic diamniotic twin in third trimester; Anxiety during Start: 07-04-2023 Orders Only Freddy Hughes [facility] rnal- Medicine at [facility] Comment on above: Dichorionic diamniot ic twin in third trimester (Primary Dx); Poor growth affecting management of mother in third trimester, fetus 1 of multiple gestation Start: 07-03-2023 End: 07-04-2023 ambulatory AMADEO SUDARSHAN [facility] Sherri nunezal Start: 06-11-2023 End: 06-11-2023 ambulatory NESTOR PRICE Not Available Start: 05-28-2023 End: 05-28-2023 ambulatory CECIL QUINTANA Not Available Start: 05-14-2023 End: 05-14-2023 ambulatory NESTOR PRICE Not Available Start: 03-28-2023 Office consultation new/estab patient 80 min Referring Provider Unknown [id number] [address] [place] Work Phone: Start: 03-28-2023 Patient encounter procedure Referring Provider Unknown [id number] [address] [place] Work Phone: Start: 03-28-2023 ambulatory Ramakrishna Schwarz Facility :[facility] Start: 02-14-2023 End: 02-14-2023 ambulatory Filippo Larson Other [place] [employer] Other Start: 02-14-2023 Office outpatient vi sit [...] 07-17-2022 End: 07-18-2022 ambulatory SUKI CONDE PROVIDER Facility:[facility] Start: 07-17-2022 End: 07-17-2022 Patient encounter procedure Mayito LIM General Surgery Nill/Hossein [place] Start: 07-10-2022 End: 07-10-[address] CECIL QUINTANA . Facility:[facility] Start: 07-08-2022 Encounter for preprocedural laboratory examination DR CECIL QUINTANA . [facility] Start: 07-06-2022 End: 07-07-[address] CECIL [...] 03-09-2020 Emergency department patient visit PHYSICIAN KIMI [facility] Start: 04-27-2014 End: 04-27-2014 Telephone encounter Noa Dimas MD Work Phone: Reproductive Endocrinology Infertility Procedures Date Procedure Procedure Detail Performing Clinician Start: 10-25-2020 Microscopic observation [Identifier] in Cervix by Cyto stain Freddy Hughes PATROL DRIVER Colonoscopy Mayito OBANDOL Dilation and curettage Temo OBANDOL Dilation and curettage Temo OBANDOL Esophagogastroduodenoscopy M eugene OBANDOL Excision of cyst of ovary Juana LIM Laparoscopy Mayito LIM Plan of Treatment Date Care Activity Detail Author Start: 05-28-2032 DTaP,Tdap and Td Vaccines (8 - Td or Tdap) DTaP,Tdap and Td Vaccines (8 - Td or Tdap) [facility] Start: 07-04-2024 End: 07-04-2024 US MFM with or without consult US MFM with or without consult Imaging Routine Dichorionic diamniotic twin in third trimester Poor growth affecting management of mother in third trimester, fetus 1 of multiple gestation Expected: 07/04/2024 (Approximate), Expires: 07/04/2024 [facility] Work Phone: Comment on above: Expected: 07/04/2024 (Approximate), Expires: 07/04/2024 Start: 06-03-2024 Adult BMI Screening Adult BMI Screen ing [facility] Start: 06-03-2024 Tobacco Screening Tobacco Screening [facility] Start: 2024 Screening for Chlamy carroll trachomatis Chlamydia Screening [facility] Start: 10-26-2023 Screening for malign ant neoplasm of cervix Pap Smear [facility] Start: 07-17-2023 End: 07-17-2023 Patient encounter procedure 07/17/2023 9:30 AM EST Appointment [facility] [address] [place] [id number] [facility] Start: 07-08-2023 End: 07-08-2023 Telemedicine consultation with patient 07/08/2023 1:00 PM EST Telemedicine Maternal- Medicine at [facility] [address] [place] [phone] Paulie Cervantes MD [address] [place] [address] Bella Smith MD [address] [id number] [facility] Start: 03-01-2023 Influenza vaccination Influenza Vacc ine [facility] Start: 03-01-2021 Influenza vaccination INFLUENZ A (Season Ended) [facility] Start: 02-28-2020 PAP TESTING PAP TESTING [facility] Start: 2018 Urine microalbumin profile DTAP,TDAP,TD (1 - Tdap) [facility] Start: 2017 Adult BMI Follow Up Plan Adult BMI Follow Up Plan [facility] Start: 2017 CHLAMYDIA SCREENING (18-24) CHLAMYDIA SCREENING (18-24) [facility] Start: 2017 GC (GONORRHEA) SCREE KRUNAL (18-24) GC (GONORRHEA) SCREENING (18-24) [facility] Start: 2017 HEPATITIS C SCREENING HEPATITIS C SC REENING [facility] Start: 2017 HIV SCREENING HIV SCREENING [facility] Start: 2011 Adult depression screening assessment DEPRESSION SCREENING [facility] Start: 2010 HPV VACCINE (1 - 2-d ose series) HPV VACCINE (1 - 2-dose series) [facility] Patient Education Anxiety (ED) [facility] Patient referral [facility] Immunizations Immunization Date Immunization Notes Care Provider Laverne irizarry 01-05-2022 influenza virus vaccine, unspecified formulation Freddy Hughes [facility] NEGATED: Highlighted row has not occurred!07-17-2022 influenza virus vaccine, unspecified formulation Mayito LIM [facility] [place] Payers Date Payer Category Payer Unknown 2013 Unknown [facility] [place] PLAN [place] [id number] 2013-2014 PPO [id number] 1999 Unknown [id number] 2.16.840.1.581714.3.579.2.727 1999 Unknown [id number] 2.16.840.1.650295.3.579.2.727 1999 Unknown [id number] 2.16.840.1.740869.3.579.2.593 1999 Unknown [id number] 2.16.840.1.502813.3.579.2.593 1999 Unknown [id number] 2.16.840.1.358986.3.579.2.593 1999 Unknown [id number] 2.16.840.1.663340.3.579.2.593 1999 Unknown [id number] 2.16.840.1.644395.3.579.2.593 1999 Unknown [id number] 2.16.840.1.528529.3.579.2.593 1999 Unknown [id number] 2.16.840.1.024079.3.579.2.593 1999 Unknown [id number] 2.16.840.1.382038.3.579.2.593 1999 Unknown [id number] 2.840.1.164235.3.579.2.593 1999 Unknown [id number] 2.16840.1.728860.3.579.2.593 1999 Unknown [id number] 2.16840.1.810413.3.579.2.593 1999 Unknown [id number] 2.16840.1.032230.3.579.2.593 1999 Unknown [id number] 2.16840.1.813150.3.579.2.593 1999 Unknown [id number] 2.16.840.1.015493.3.579.2.593 1999 Unknown [id number] 2.16.840.1.287624.3.579.2.593 1999 Unknown [id number] 2.16.840.1.634934.3.579.2.593 1999 Unknown [id number] 2.16.840.1.535489.3.579.2.593 1999 Unknown [id number] 2.16.840.1.079831.3.579.2.593 1999 Unknown [id number] 2.16.840.1.276757.3.579.2.593 1999 Unknown [id number] 2.16.840.1.917866.3.579.2.593 1999 Unknown [id number] 2.16.840.1.354275.3.579.2.593 1999 Unknown [id number] 2.16.840.1.563686.3.579.2.356 1999 Unknown [id number] 2.16.840.1.561796.3.579.2.1259 1999 Unknown [id number] 2.16.840.1.846777.3.579.2.1259 1999 Unknown [id number] 2.16.840.1.008975.3.579.2.1259 1999 Unknown [id number] 2.16.840.1.610482.3.579.2.1286 1959 Unknown [id number] 1959 Unknown [id number] 1959 Unknown [id number] Self-pay Self Pay [id number] Unknown Self Pay [id number] Social History Date Type Detail Facility Start: 03-09-2020 Tobacco smoking status [facility] Smoker (finding) [facility] Start: 1999 Sex Assigned At Female [facility] Start: 04-12-2014 Tobacco smoking status SDIS Never smoker [facility] Start: 04-12-2014 End: 04-01-2023 Tobacco use and exposure Never used [facility] Start: 04-12-2014 Alcohol intake 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) [facility] Start: 1999 Sex Assigned At Not on file [facility] Start: 07-17-2022 End: 04-01-2023 Tobacco smoking status Ex-smoker (finding) [facility] [place] Tobacco smoking status Smokeless tobacco user within last 30 days [facility] [place] Start: 06-03-2023 Sex Assigned At Female [facility] Start: 04-01-2023 End: 06-03-2023 No alcohol use No alcohol use [facility] History of tobacco use Cigarette Smoker [facility] Start: 06-03-2023 Alcohol intake Ex-drinker (finding) [facility] Start: 10-25-2020 Alcohol Comment RARELY [facility] Start: 11-22-2022 [facility] NEGATED: Highlighted row Denies History of domestic violence Denies History of domestic violence [id number] [address] [place] Work Phone: Goals Date Patient Goal Desired Activity /State Functional Status Date Assessment Result Facility 07-17-2022 Functional Status N/A [facility] 04-27-2014 to 07-08-2023 Bella Smith MD - 07/08/2023 1:00 PM EST Note Date & Type Note Facility 07-08-2023 History of Present illness Narrative Video Visit via Real-time Synchronous Audiovisual Provider Location: [facility] MATERNAL- MEDICINE AT [address] [phone] Patient Location: Patient Location Associate Property Manager: None Video Visit Consent Statement: I discussed [...] that there are some limitations compared to [id number] evaluations. We elected to proceed. REASON FOR [...] and B, status post 2nd opinion at [facility] Anxiety/ depression, managed on citalopram 40 mg [...] hypokalemia Anxiety and depression Bipolar 2 disorder ([facility]) Chronic abdominal pain Endometriosis Intractable nausea and [...] and B, status post 2nd opinion at [facility] COUNSELING We reviewed signs symptoms of labor [...] Serial Doppler studies for growth restriction at [facility] office, Doppler studies remain normal, repeat on 07/17/2023 Delivery scheduled at 37 weeks' gestation with primary OB at local hospital, primary due to male presentation of twin a, breech Patient is scheduled for repeat umbilical artery Doppler assessment in 2 weeks, no future clinic visits with [facility] Thank you for allowing me to participate in [facility]. If there are any questions, please do not hesitate to call me. Bella Smith MD Maternal- Medicine [address] [place] [address] documented in this encounter [facility] 02-14-2023 Evaluation note Encounter Date Diagnosis Assessment [...] needed. Retrun visit here in three months. [employer] Other 01-20-2023 NoteChief Complaint consultation for epigastric pain, abdominal cramping and bloating [facility] Staff 22 year old female presents on consultation from Dr. Conde for intermittent burning epigastric and sharp/stabbing LUQ pain. Reports generalized abdominal cramping and bloating. Intermittent nausea and vomiting. Denies rectal pain or bleeding. Reports long standing history of constipation for which she takes stool softener. Reports colonoscopy completed several years ago at [facility] was normal. History of Present Illness 22 yo female with h/o bipolar disorder, anxiety, migraines, referred for intermittent epigastric and LUQ pain, burning, at times sharp/stabbing; occasional N/V; + boating; no food triggers, occurs celia without eating; no hematemesis or melena; no hematochezia, some constipation, improved with stool softeners; had normal EGD and colonoscopy at [facility] in 2016; abdominal operations [...] more than 30 da (more content not included)...[facility] RehabilitationComment [facility]:Result Comment: Electronically Signed By: RAPHAEL MACIAS, Mayito Uriostegui.bree\Date and Time Signed: 07/20/22 14:58 [id number] Note OPERATIVE NOTE OPERATION DATE: 07/10/2021 PROCEDURE: Diagnostic laparoscopy with chromopertubation. PREOPERATIVE DIAGNOSIS: Pelvic pain. POSTOPERATIVE DIAGNOSIS: Pelvic pain, including small endometrial implant posterior cul-de-sac, as well as possible blunted tube on the patient's left side. ANESTHESIA: General. SURGEON: Cecil Quintana D.O. STAFFING CONSULTANT: ISAURO Mccoy URINE OUTPUT: Yellow and clear. BLOOD LOSS: 5 mL. FINDINGS: Slightly blunted tube on the left side, endometriosis posterior cul-de-sac, otherwise normal appearing uterus, tubes and ovaries. Normal appearing appendix. Some adhesions of the bowel to the pelvic and abdominal side wall on the patient's right side. Normal appearing liver. No evidence of Kaxj-Tfcv-Dvjtjj syndrome. PROCEDURE: The patient was taken back [...] taken to Recovery [facility] in [facility] condition[id number] NoteOP Note OPERATION DATE: 07/10/2022 PROCEDURE: Diagnostic laparoscopy with chromopertubation. PREOPERATIVE DIAGNOSIS: Pelvic pain, suspected endometriosis, fallopian tube disorder. POSTOPERATIVE DIAGNOSIS: Pelvic pain, suspected endometriosis, fallopian tube disorder, including mild endometriosis, bilateral patent fallopian tubes, small bowel adhesion to the pelvic side wall. ANESTHESIA: General. SURGEON: Cecil Quintana D.O. STAFFING CONSULTANT: ISAURO Mccoy URINE OUTPUT: Yellow and clear. BLOOD LOSS: 5 mL. ADDENDUM: Please note that chromopertubation was performed after methylene blue was placed through the HUMI manipulator. Spillage of methylene blue could be seen from both tubes.[id number] Instructions* Patient Instructions* Jennifer Lam - 04/27/2014 4:49 PM EDT [phone] - Patient mother would like to speak with a nurse concerning medications that her daughter is taking. [facility] N[facility] - Reported * the patient is seen at the request of Dr. Gonzales at [facility] for consultation regarding second opinion for placental hemorrhage; EDC 08/15/2023 * FC MA [id number] [address] [place] Work Phone: chief complaint Narrative - Reported* the patient is seen at the request of Dr. Gonzales at [facility] for consultation regarding second opinion for placental hemorrhage; EDC 08/15/2023 * FC MA [id number] [address] [place] Work Phone: evaluation + Plan note No data available for this section General Surgery [place] Evaluation note* Diagnosis Dichorionic diamniotic twin in third trimester- Primary Poor growth affecting management of mother in third trimester, fetus 1 of multiple gestation [facility] encounter [facility]* Diagnosis 34 weeks gestation of - Primary Poor growth affecting management of mother in third trimester, fetus 1 of multiple gestation Dichorionic diamniotic twin in third trimester Anxiety during documented in this encounter [facility] general Narrative - Reported* Type Description Date Medical History Anxiety Medical History GERD (gastroesophageal reflux di sease) Medical History bipolar Surgical History LAPAROSCOPY-times 2013 Hospitalization History [facility] for abdominal pain & vomiting - ultrasound & CT scans 12/2022 [facility] Other Hospital Discharge instructions No data available for this section [facility] [place] InstructionsNot on filedocumented in this encounter [facility] SystemInstructionsNot on filedocumented in this encounter [facility] SystemProgress note No data available for this [...] MD [address] [place] [address] [facility] Maternal Med [address] [place] [address] Referral ID Status Reason Start Date Expiration Date V isits Requested Visits Authorized [id number] Pending Review 07/04/2023 07/03/2024 1 1 Additional Source Comments INFORMATION SOURCE (unrecogn ized section and content) DATE CREATED AUTHOR 02/04/2020 [facility] DATE CREATED AUTHOR AUTHOR'S ORGANIZ ATION 08/16/2022 [facility] DATE CREATED AUTHOR AUTHOR'S ORGANIZ ATION 12/07/2022 [facility] DATE CREATED AUTHOR AUTHOR'S ORGANIZ ATION 04/06/2023 [facility] DATE CREATED AUTHOR AUTHOR'S ORGANIZ ATION 06/13/2023 [facility] dical [facility] DATE CREATED AUTHOR AUTHOR'S ORGANIZ ATION 07/07/2023 [facility] Source Comments (unrecognize d section and content) In the event this informatio n is protected by the Federal Confidentiality of Alcohol and Drug Abuse Patient Records regulations: The Federal rules restrict any use of the information to criminally investigate or prosecute any alcohol or drug abuse patient.[facility] Patient Care team informatio n (unrecognized section and content) [employer] Relationship Specialty Start Date End Date No Pcp, [place] [address] PCP - General Family Medicine 10/25/20 [employer] Relationship Specialty Start Date End Date No Pcp, [place] [address] PCP - General Family Medicine 10/25/20 REASON [...] BE BASED ON THE PRIMARY CLINICAL RECORDS. [email or web address] [facility]. provides no warranty or guarantee of the accuracy or completeness of information in this document.
[2023-07-10 15:18] VITALS: BP 114/61; PULSE 97
[2023-07-10 15:26] LABS: Bilirubin Urine NEGATIVE (NEGATIVE); Blood Urine NEGATIVE (NEGATIVE); Clarity Urine CLEAR (CLEAR); Color Urine LT. YELLOW (YELLOW); Glucose Urine UA NEGATIVE (NEGATIVE); Ketones Urine NEGATIVE (NEGATIVE); Leukocyte Esterase Urine NEGATIVE (NEGATIVE); Nitrite Urine NEGATIVE (NEGATIVE); Protein Urine NEGATIVE (NEG/TRACE); Urobilinogen Urine 0.2 EU/dL (0.2-1.0)
[2023-07-10 15:29] LABS: Urine Microscopic Indicated NO
[2023-07-10 16:57] VITALS: BP 116/59; PULSE 88
== END 2023-07-10 17:29 | disposition home or self-care (01) ==
LOC: FBC 14:42
PROVIDERS: Admitting Provider Obstetrics & Gynecology; PCP Family Medicine; Visit Provider Obstetrics & Gynecology
DX: O47.9 False labor, unspecified (principal); O30.009 Twin pregnancy, unspecified number of placenta and unspecified number of amniotic sacs, unspecified trimester; Z3A.00 Weeks of gestation of pregnancy not specified
CPT/HCPCS: 59025; 81003; G0378; G0379

== ENCOUNTER 2023-07-12 07:00 | Outpatient (OUT) | payer OTHER, SELFPAY ==
--- OUTSIDE RECORDS SUMMARY | 2023-07-12 07:03 | XMS_ITS | CCD ---
Author Name Unknown Address [id number] [place] [address] Organization [facility] Care Team Providers [employer] Leader Name Role Phone NO FAMILY, PHYSICIAN Primary Care Provider Nela Givens Primary Care Provider [phone] SUKI CONDE Primary Care Physician [phone] AMAYA PROVIDER, SUKI Referring Unavailab Mayito Kurtz Attending Unavailable AMAYA PROVIDER, SUKI Referring Unavailab Mayito Kurtz Attending Unavailable AMAYA, DR SUKI Kong Primary Care Unavailable SAMREEN SCHWARZ Admitting Unavailable SAMREEN SCHWARZ Attending Unavailable SAMREEN SCHWARZ Consulting Unavailable MURALI STRANGE Consulting Unavailable AMAYA, DR SUKI Kong Primary Care Unavailable NILCourtney Erwin, DR WEINER Admitting Unavailable NILL ., DR WEINER Attending Unavailable AMAYA, DR SUKI Kong Primary Care Unavailable EUSEBIO Erwin, MARYURI Admitting Unavailable EUSEBIO Erwin, MARYURI Attending Unavailable DEE .NESTOR Consulting Unavailable EUSEBIO ., MARYURI Consulting Unavailable MISTI BREWER Consulting Unavailable EUSEBIO Erwin, MARYURI Admitting Unavailable EUSEBIO Erwin, MARYURI Attending Unavailable JORGE, DR SHIRLEY Thapa Consulting Unavailable AMAYA, DR SUKI Kong Primary Care Unavailable MARYURI RIVERA Consulting Unavailable HARMAN ADAMS Consulting Unavailable HARMAN ADAMS Admitting Unavailable HARMAN ADAMS Attending Unavailable AMAYA, [...] Unavailable ELIZABETH ., DR GATICA Admitting Unavailable MILROY, DR ANGIE Arce Consulting Unavailable NADERER, DR [...] Unavailable AMAYA, DR SUKI Kong Attending Unavailable MILROY, DR ANGIE Arce Consulting Unavailable REQUEST, DR KASSIE LISTED Primary Care Unavaila caitie CONDE, DR SUKI Kong Consulting Unavailable Filippo Larson Unavailable [phone] Unknown, Referring Provider Unavailable Unav ailable Ramakrishna Schwarz Attending Unavailable UNKNOWN, PCP Primary Care Unavailable No Pcp, No Pcp Primary Care Provider UnavailCECIL Marie Attending Unavailable ELIZABETH, CECIL Attending Unavailable DEE, NESTOR Attending Unavailable NESTOR PRICE Attending Unavailable AMADEO HEATON Attending Unavailable CECIL QUINTANA R Referring Unavailable NO PCP, NO PCP Primary Care Unavailable LYLY SMITH Attending Unavailable ELIZABETH, CECIL R Referring Unavailable NO PCP, NO PCP Primary Care Unavailable Unavailable Unavailable Unavailable Allergies Allergy Classification Reported Allergen(s) Allergy Type Date of Onset Reaction(s) Facility (1 source) No Known Medication Allergies; Translations: [No Known Medication Allergies] Propensity to adverse reactions (disorder) [facility] Repository Medications Current Medications Medication Drug [...] 07/17/22 Status: Ordered take [address] [facility] once daily at bedtime Elavil 25 MG 2 tablets at bedtime Orally Once a day for 30 days Not-Taking aspirin 81 mg delayed release oral tablet (2 sources) Platelet Aggregation Inhibitor, Nonsteroidal Anti-inflammatory Drug Start: 10-02-2023 take 1 tablet by mouth in the [...] (1 source) End: 07-26-2014 NORETHINDRONE AC-ETH ESTRADIOL (.11/27, , ORAL) Take by mouth. 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] Onset: 3 Episodic Other [...] 04-28-2023 Episodic Other complications of (1 source) Other mental disorders complicating , unspecified trimester; Translations: [Other mental disorders complicating , unspecified trimester] Onset: 3 Episodic Other complications of (1 source) Maternal [...] [34 weeks gestation of ] 07-08-2023 Episodic Residual codes; unclassified (1 source) 34 weeks gestation of ; Translations: [34 weeks gestation of ] Onset: 4 Episodic Substance-related disorders (1 source) Maternal care [...] object(s), not elsewhere classified, initial encounter; Translations: [[facility] OTH SHRP OB NOT ELSW CLASS INI] [...] a) No falls within the last year [id number] [address] [place] Work Phone: Tobacco use status [facility] a) Yes M G-[id number]-MAC [address] [place] Work Phone: Blood Pressure Cuff Size Adult [id number] [address] [place] Work Phone: Blood Pressure Cuff Size Yes [id number] [address] [place] Work Phone: No Panel Informationon 03-28 Normal EX-PMRSG-EKC [address] [place] Work Phone: OB Completed scan [...] gestation - rr cfDNA - Referred from [facility] because of subchorionic hematomas A targeted anatomic [...] previously been seen by Dr. Gonzales in [place]. Twins are doing well, their growth is [...] EFW (oz) 12 oz EFW by: Hadlock ([id number]) Extended Insect Control Aide 5.8 mm CM 3.9 mm 16% Nicolaides [...] mm 61 (more content not included)... Normal [facility] AMYLASEon 10-28-2022 Amylase [Catalytic activity/Vol] 35 U/L Normal 25-115 [facility] Comment on above: Performed By: #### C NEAL LIPA, NESTOR #### [facility] [address] [place] [address] Dr. Joe Shea CBC AUTO DIFFon 10-28-2022 BASO # 0.1 103/ul Normal 0.0-0.1 [facility] Comment on above: Performed By: #### C NEAL LIPA, NESTOR #### [facility] [address] [place], [place] [address] Dr. Joe Shea Basophils/100 WBC (Bld) 0.4 % Normal 0.2-2.0 [facility] Comment on above: Performed By: #### C CARLYN DE JESUS AMY #### [facility] [address] [place] [address] Dr. Joe Shea EO # 0.1 103/ul Normal 0.0-0.7 [facility] Comment on above: Performed By: #### C CARLYN DE JESUS NESTOR #### [facility] [address] [place] [address] Dr. Joe Shea Eosinophils/100 WBC (Bld) 0.8 % Critically low 0.9-7. 0 [facility] Comment on above: Performed By: #### C CARLYN DE JESUS NESTOR #### [facility] [address] [place] [address] Dr. Joe Shea Erythrocyte distribution width (RBC) [Ratio] 13.2 % Normal 11.0-15.0 [facility] Comment on above: Performed By: #### C CARLYN DE JESUS NESTOR #### [facility] [address] [place] [address] Dr. Joe Shea Hematocrit (Bld) [Volume fraction] 37.2 % Normal 36.0-48.0 [facility] Comment on above: Performed By: #### C CARLYN DE JESUS AMY #### [facility] [address] [place] [address] Dr. Joe Shea Hemoglobin (Bld) [Mass/Vol] 12.0 g/dL Normal 12.0-16.0 [facility] Comment on above: Performed By: #### C CARLYN DE JESUS NESTOR #### [facility] [address] [place] [address] Dr. Joe Shea IG # 0.03 10e3/ul Normal 0.00-0.03 [facility] Comment on above: Performed By: #### C CARLYN DE JESUS NESTOR #### [facility] [address] [place] [address] Dr. Joe Shea IG % 0.2 % Normal 0.0-0.5 [facility] Comment on above: Performed By: #### C CARLYN DE JESUS, NESTOR #### [facility] [address] [place] [address] [address] Joe Shea LYMPH # 1.9 103/ul Normal 1.2-3.8 [facility] Comment on above: Performed By: #### C MP LIPA, NESTOR #### [facility] [address] [place] [address] Dr. Joe Shea Lymphocytes/100 WBC (Bld) 15.2 % Critically low 20.5-6 0.0 [facility] Comment on above: Performed By: #### C MP LIPA, NESTOR #### [facility] [address] [place] [address] Dr. Joe Shea MANUAL DIFF REQ NO Normal [facility] Comment on above: Performed By: #### C NEAL LIPA, NESTOR #### [facility] [address] [place] [address] Dr. Joe Shea MCH (RBC) [Entitic mass] 28.4 pg Normal 26.7-34.0 [facility] Comment on above: Performed By: #### C MP LIPA, NESTOR #### [facility] [address] [place] [address] Dr. Joe Shea MCHC (RBC) [Mass/Vol] 32.3 g/dL Normal 29.9-35.2 [facility] Comment on above: Performed By: #### C MP LIPA, NESTOR #### [facility] [address] [place] [address] Dr. Joe Shea MCV (RBC) [Entitic vol] 87.9 fL Normal 81.0-99.0 [facility] Comment on above: Performed By: #### C MP LIPA, NESTOR #### [facility] [address] [place] [address] Dr. Joe Shea MONO # 0.9 103/ul Critically high 0.3-0.8 [facility] Comment on above: Performed By: #### C MP, LIPA, NESTOR #### [facility] [address] [place] [address] Dr. Joe Shea Monocytes/100 WBC (Bld) 7.1 % Normal 1.7-12.0 [facility] Comment on above: Performed By: #### C CARLYN DE JESUS, NESTOR #### [facility] [address] [place] [address] Dr. Joe Shea NEUT # 9.5 103/ul Critically high 1.4-6.5 [facility] Comment on above: Performed By: #### C CARLYN DE JESUS, NESTOR #### [facility] [address] [place] [address] Dr. Joe Shea Neutrophils/100 WBC (Bld) 76.3 % Critically high 43.0- 75.0 [facility] Comment on above: Performed By: #### C CARLYN DE JESUS, NESTOR #### [facility] [address] [place] [address] Dr. Joe Shea Platelet mean volume (Bld) [Entitic vol] 10.8 fL Normal 9.5-13.5 [facility] Comment on above: Performed By: #### C CARLYN DE JESUS, NESTOR #### [facility] [address] [place] [address] Dr. Joe Shea PLT 283 103/ul Normal 150-450 [facility] Comment on above: Performed By: #### C CARLYN DE JESUS, NESTOR #### [facility] [address] [place] [address] Dr. Joe Shea RBC 4.23 106/ul Normal 4.20-5.40 [facility] Comment on above: Performed By: #### C CARLYN DE JESUS, NESTOR #### [facility] [address] [place] [address] Dr. Joe Shea WBC 12.5 103/ul Critically high 4.0-11.0 [facility] Comment on above: Performed By: #### C CARLYN DE JESUS NESTOR #### [facility] [address] [place] [address] ABD/PELV W CONon [...] by: MISTI BREWER Date: 2022-10-28 18:31 Normal [facility] ER URINE PROFILEon 3 Bilirubin Ql (U) Negative Normal NEGATIVE [facility] Comment on above: Performed By: #### L BCL #### [facility] [address] [place] [address] Dr. Joe Shea Clarity (U) CLEAR Normal CLEAR [facility] Comment on above: Performed By: #### L BCL #### [facility] [address] [place] [address] Dr. Joe Shea Color (U) LT. YELLOW Normal YELLOW [facility] Comment on above: Performed By: #### L BCL #### [facility] [address] [place] [address] Dr. Joe Shea ERUAHD A micrscopic examination will be performed if indicated. Normal [facility] Comment on above: Performed By: #### L BCL #### [facility] [address] [place] [address] Dr. Joe Shea Glucose Ql (U) Negative Normal NEGATIVE [facility] Comment on above: Performed By: #### L BCLH #### [facility] [address] [place] [address] Dr. Joe Shea Hemoglobin Ql (U) Negative Normal NEGATIVE [facility] Comment on above: Performed By: #### L BCLH #### [facility] [address] [place] [address] Dr. Joe Shea Ketones Ql (U) Negative Normal NEGATIVE [facility] Comment on above: Performed By: #### L BCLH #### [facility] [address] [place] [address] Dr. Joe Shea LEUKOCYTES TRACE Abnormal NEGATIVE [facility] Comment on above: Performed By: #### L BCLH #### [facility] [address] [place] [address] Dr. Joe Shea Nitrite Ql (U) Negative Normal NEGATIVE [facility] Comment on above: Performed By: #### L BCL #### [facility] [address] [place] [address] Dr. Joe Shea pH (U) 8.0 [pH] Normal 5-9 [facility] Comment on above: Performed By: #### L BCLH #### [facility] [address] [place] [address] Dr. Joe Shea SPEC GRAVITY 1.015 Normal 1.005-<=1.02 5 [facility] Comment on above: Performed By: #### L BCLH #### [facility] [address] [place] [address] Dr. Joe Shea UA PROTEIN Negative Normal NEGATIVE/ TRACE [facility] Comment on above: Performed By: #### L BCLH #### [facility] [address] [place] [address] Dr. Joe Shea UR MICRO IND INDICATED Normal [facility] Comment on above: Performed By: #### L BCLH #### [facility] [address] [place] [address] Dr. Joe Shea Urobilinogen Qn (U) 2.0 {Pascual'U}/dL Abnormal 0.2 - 1. 0 [facility] Comment on above: Performed By: #### L BCLH #### [facility] [address] [place] [address] Dr. Joe Shea LIPASEon 10-28-2022 Lipase [Catalytic activity/Vol] 93.0 U/L Normal 73.0-393.0 [facility] Comment on above: Performed By: #### C MP, LIPA, NESTOR #### [facility] [address] [place] [address] Dr. Joe Shea URon 10-28-2022 , QUAL Negative Normal NEGATIVE [facility] Comment on above: Performed By: #### L BCL #### [facility] [address] [place] [address] Dr. Joe Shea PROF 14(COMP METB)on 023 Albumin [Mass/Vol] 4.1 g/dL Normal 3.4-5.0 [facility] Comment on above: Performed By: #### C MP, LIPA, NESTOR #### [facility] [address] [place] [address] Dr. Joe Shea Albumin/Globulin [Mass ratio] 1.2 {ratio} Normal [facility] Comment on above: Performed By: #### C MP, LIPA, NESTOR #### [facility] [address] [place] [address] Dr. Joe Shea ALP [Catalytic activity/Vol] 60 U/L Normal 46-116 [facility] Comment on above: Performed By: #### C MP, LIPA, NESTOR #### [facility] [address] [place] [address] Dr. Joe Shea ALT [Catalytic activity/Vol] 22 U/L Normal 14-59 [facility] Comment on above: Performed By: #### C MP, LIPA, NSETOR #### [facility] [address] [place] [address] Dr. Joe Shea Anion gap [Moles/Vol] 10.2 mmol/L Normal [facility] Comment on above: Performed By: #### C MP, LIPA, NESTOR #### [facility] [address] [place] [address] Dr. Joe Shea AST [Catalytic activity/Vol] 14 U/L Critically low 15-37 [facility] Comment on above: Performed By: #### C MP, LIPA, NESTOR #### [facility] [address] [place] [address] Dr. Joe Shea Bilirubin [Mass/Vol] 0.5 mg/dL Normal 0.2-1.0 [facility] Comment on above: Performed By: #### C MP, LIPA, NESTOR #### [facility] [address] [place] [address] Dr. Joe Shea Calcium [Mass/Vol] 8.9 mg/dL Normal 8.5-10.1 [facility] Comment on above: Performed By: #### C MP, LIPA, NESTOR #### [facility] [address] [place] [address] Dr. Joe Shea Chloride [Moles/Vol] 103 mmol/L Normal 98-107 [facility] Comment on above: Performed By: #### C MP, LIPA, NESTOR #### [facility] [address] [place] [address] Dr. Joe Shea CO2 [Moles/Vol] 28.1 mmol/L Normal 21.0-32.0 [facility] Comment on above: Performed By: #### C MP, LIPA, NESTOR #### [facility] [address] [place] [address] Dr. Joe Shea Creatinine [Mass/Vol] 0.77 mg/dL Normal 0.55-1.02 [facility] Comment on above: Performed By: #### C MP, LIPA, NESTOR #### [facility] [address] [place] [address] Dr. Joe Shea EGFR-AF SAMOAN >60 Normal >=60 [facility] Comment on above: Performed By: #### C MP, LIPA, NESOTR #### [facility] [address] [place] [address] Dr. Joe Shea EGFR-NON AF SAMOAN >60 Normal >=60 [facility] Comment on above: Performed By: #### C HUGO DE JESUSA, NESTOR #### [facility] [address] [place] [address] Dr. oJe Shea Globulin (S) [Mass/Vol] 3.5 g/dL Normal [facility] Comment on above: Performed By: #### C NEAL LIPA, NESTOR #### [facility] [address] [place] [address] Dr. Joe Shea Glucose [Mass/Vol] 85 mg/dL Normal 74-106 [facility] Comment on above: Performed By: #### C HUGO DE JESUSA, NESTOR #### [facility] [address] [place] [address] Dr. Joe Shea Potassium [Moles/Vol] 3.3 mmol/L Critically low 3.5-5.1 [facility] Comment on above: Performed By: #### C NEAL LIPA, NESTOR #### [facility] [address] [place] [address] Dr. Joe Shea Protein [Mass/Vol] 7.6 g/dL Normal 6.4-8.2 [facility] Comment on above: Performed By: #### C HUGO DE JESUSA, NESTOR #### [facility] [address] [place] [address] Dr. Joe Shea Sodium [Moles/Vol] 138 mmol/L Normal 136-145 [facility] Comment on above: Performed By: #### C NEAL LIPA, NESTOR #### [facility] [address] [place] [address] Dr. Joe Shea Urea nitrogen [Mass/Vol] 6.0 mg/dL Critically low 7.0-18. 0 [facility] Comment on above: Performed By: #### C NEAL LIPA, NESTOR #### [facility] [address] [place] [address] Dr. Joe Shea Urea nitrogen/Creatinine [Mass ratio] 7.8 mg/mg Normal [facility] Comment on above: Performed By: #### C NEAL LIPA, NESTOR #### [facility] [address] [place] [address] Dr. Joe Shea URINE MICROSCOPIC ONLYon BACTERIA NONE SEEN Normal NONE SEEN [facility] Comment on above: Performed By: #### L BCLH #### [facility] [address] [place] [address] Dr. Joe Shea Bacteria identified Cx Nom (U) NOT INDICATED Normal [facility] Comment on above: Performed By: #### L BCLH #### [facility] [address] [place] [address] Dr. Joe Shea CAST NONE SEEN Normal NONE SEEN [facility] Comment on above: Performed By: #### L BCLH #### [facility] [address] [place] [address] Dr. Joe Shea Crystals LM Nom (Urine sed) NONE SEEN Normal NONE SEEN [facility] Comment on above: Performed By: #### L BCLH #### [facility] [address] [place] [address] Dr. Joe Shea Epithelial cells LM Ql (Urine sed) FEW Abnormal NONE SEEN /RARE [facility] Comment on above: Performed By: #### L BCL #### [facility] [address] [place] [address] Dr. Joe Shea MUCOUS NONE SEEN Normal NONE SEEN [facility] Comment on above: Performed By: #### L BCL #### [facility] [address] [place] [address] Dr. Joe Shea RBC NONE SEEN Abnormal 0-2 [facility] Comment on above: Performed By: #### L BCL #### [facility] [address] [place] [address] Dr. Joe Shea WBC 0-2 Abnormal NONE SEEN [facility] Comment on above: Performed By: #### L BCLH #### [facility] [address] [place] [address] Dr. Joe Shea LACTOFERRIN FECAL QUANTon Lactoferrin, Fecal, Quant. <1.00 Normal 0.00-7.24 [facility] Comment on above: Result Comment: Re sults [...] (IBS). Performed By: #### D TRESA #### [facility] [address] [place] [address] Dr. Joe Shea CALPROTECTIN, FECALon 2022 Calprotectin, Fecal 31 ug/g Normal 0-120 [facility] Comment on above: Result Comment: Conc entration Interpretation Follow-Up <16 - 50 ug/g Normal None >50 -120 ug/g Borderline Re-evaluate in 4-6 weeks >120 ug/g Abnormal Repeat as clinically indicated Performed By: #### C MP, LIPA, NESTOR #### [facility] [address] [place] [address] Dr. Joe Shea BOWEL DISORDERS EVALUATION R ULE-OUT CASCon 09-25-2022 Antigliadin 8 units Normal 0-19 [facility] Comment on above: Result Comment: Nega tive 0 - 19 Weak Positive 20 - 30 Moderate to Strong Positive >30 . Performed By: #### C BC #### [facility] [address] [place] [address] Dr. Joe Shea Atypical pANCA Negative Normal Negative [facility] Comment on above: Performed By: #### C BC #### [facility] [address] [place] [address] Dr. Joe Shea Note: [place] continues Normal [facility] Comment on above: Performed By: #### C BC #### [facility] [address] [place] [address] Dr. Joe Shea Note: Comment Normal [facility] Comment on above: Result Comment: Sugg estive of irritable bowel syndrome (IBS). Careful evaluation of the patient's history, physical examination, and application of Navjot III diagnostic criteria may help to rule in or rule out the diagnosis of IBS. Subsequent testing for Fecal Calprotectin (803013) may be recommended. If IBD is strongly suspected, subsequent testing with the Crohn's Disease Prognostic Profile (157730) that includes anti- glycan antibodies AMCA, ALCA, ACCA, and Zulema may aid in differential diagnosis. Performed By: #### C BC #### [facility] [address] [place] [address] Dr. Joe Shea Saccharomyces Cer. IgG <20.0 Normal 0.0-24.9 [facility] Comment on above: Result Comment: Nega tive <20.0 Equivocal 20.1 - 24.9 Positive >or= 25.0 Performed By: #### C BC #### [facility] [address] [place] [address] Dr. Joe Shea tTG/DGP SCR Negative Normal Negative [facility] Comment on above: Result Comment: Ef fective September 21, 2022 this profile will be made non-orderable due to non-availability of reagents for tTG/DGP Combo. No replacement number is available at this time. For further information, please contact your local [facility] Telephone Information Supervisor. Performed By: #### C BC #### [facility] [address] [place] [address] Dr. Joe Shea CBC AUTO DIFFon 09-19-2022 BASO # 0.1 103/ul Normal 0.0-0.1 [facility] Comment on above: Performed By: #### D TRESA #### [facility] [address] [place] [address] Dr. Joe Shea Basophils/100 WBC (Bld) 0.9 % Normal 0.2-2.0 [facility] Comment on above: Performed By: #### D LUIS ARMANDOUL #### [facility] [address] [place] [address] Dr. Joe Shea EO # 0.2 103/ul Normal 0.0-0.7 [facility] Comment on above: Performed By: #### D LUIS ARMANDOUL #### [facility] [address] [place] [address] Dr. Joe Shea Eosinophils/100 WBC (Bld) 2.4 % Normal 0.9-7.0 [facility] Comment on above: Performed By: #### Althea GTZ #### [facility] [address] [place] [address] Dr. Joe Shea Erythrocyte distribution width (RBC) [Ratio] 13.2 % Normal 11.0-15.0 [facility] Comment on above: Performed By: #### Althea GTZ #### [facility] [address] [place] [address] Dr. Joe Shea Hematocrit (Bld) [Volume fraction] 38.3 % Normal 36.0-48.0 [facility] Comment on above: Performed By: #### Althea GTZ #### [facility] [address] [place] [address] Dr. Joe Shea Hemoglobin (Bld) [Mass/Vol] 12.3 g/dL Normal 12.0-16.0 [facility] Comment on above: Performed By: ###Asiya GTZ #### [facility] [address] [place] [address] Dr. Joe Shea IG # 0.02 10e3/ul Normal 0.00-0.03 [facility] Comment on above: Performed By: ###Asiya GTZ #### [facility] [address] [place] [address] Dr. Joe Shea IG % 0.3 % Normal 0.0-0.5 [facility] Comment on above: Performed By: #### Althea GTZ #### [facility] [address] [place] [address] Dr. Joe Shea LYMPH # 1.7 103/ul Normal 1.2-3.8 [facility] Comment on above: Performed By: #### Althea GTZ #### [facility] [address] [place] [address] Dr. Joe Shea Lymphocytes/100 WBC (Bld) 24.6 % Normal 20.5-60.0 [facility] Comment on above: Performed By: #### Althea GTZ #### [facility] [address] [place] [address] Dr. Joe Shea MANUAL DIFF REQ NO Normal [facility] Comment on above: Performed By: #### Althea GTZ #### [facility] [address] [place] [address] Dr. Joe Shea MCH (RBC) [Entitic mass] 28.1 pg Normal 26.7-34.0 [facility] Comment on above: Performed By: #### Althea GTZ #### [facility] [address] [place] [address] Dr. Joe Shea MCHC (RBC) [Mass/Vol] 32.1 g/dL Normal 29.9-35.2 [facility] Comment on above: Performed By: #### Althea GTZ #### [facility] [address] [place] [address] Dr. Joe Shea MCV (RBC) [Entitic vol] 87.6 fL Normal 81.0-99.0 [facility] Comment on above: Performed By: #### Althea GTZ #### [facility] [address] [place] [address] Dr. Joe Shea MONO # 0.4 103/ul Normal 0.3-0.8 [facility] Comment on above: Performed By: #### Althea GTZ #### [facility] [address] [place] [address] Dr. Joe Shea Monocytes/100 WBC (Bld) 5.5 % Normal 1.7-12.0 [facility] Comment on above: Performed By: #### Althea GTZ #### [facility] [address] [place] [address] Dr. Joe Shea NEUT # 4.7 103/ul Normal 1.4-6.5 [facility] Comment on above: Performed By: #### Althea GTZ #### [facility] [address] [place] [address] Dr. Joe Shea Neutrophils/100 WBC (Bld) 66.3 % Normal 43.0-75.0 [facility] Comment on above: Performed By: #### Althea GTZ #### [facility] [address] [place] [address] Dr. Joe Shea Platelet mean volume (Bld) [Entitic vol] 11.4 fL Normal 9.5-13.5 [facility] Comment on above: Performed By: #### Althea GTZ #### [facility] [address] [place] [address] Dr. Joe Shea PLT 275 103/ul Normal 150-450 [facility] Comment on above: Performed By: #### Althea GTZ #### [facility] [address] [place] [address] Dr. Joe Shea RBC 4.37 106/ul Normal 4.20-5.40 [facility] Comment on above: Performed By: #### Althea GTZ #### [facility] [address] [place] [address] Dr. Joe Shea WBC 7.0 103/ul Normal 4.0-11.0 [facility] Comment on above: Performed By: #### Althea GTZ #### [facility] [address] [place] [address] Dr. Joe Shea PROF 14(COMP METB)on 023 Albumin [Mass/Vol] 4.4 g/dL Normal 3.4-5.0 [facility] Comment on above: Performed By: #### L DAIN #### [facility] [address] [place] [address] Dr. Joe Shea Albumin/Globulin [Mass ratio] 1.4 {ratio} Normal [facility] Comment on above: Performed By: #### L BCLShyla #### [facility] [address] [place] [address] Dr. Joe Shea ALP [Catalytic activity/Vol] 51 U/L Normal 46-116 [facility] Comment on above: Performed By: #### L BCLH #### [facility] [address] [place] [address] Dr. Joe Shea ALT [Catalytic activity/Vol] 20 U/L Normal 14-59 [facility] Comment on above: Performed By: #### L DAIN #### [facility] [address] [place] [address] Dr. Joe Shea Anion gap [Moles/Vol] 11.7 mmol/L Normal [facility] Comment on above: Performed By: #### L BCLH #### [facility] [address] [address] [address] Joe Shea AST [Catalytic activity/Vol] 17 U/L Normal 15-37 [facility] Comment on above: Performed By: #### L BCLH #### [facility] [address] [address] [address] Joe Shea Bilirubin [Mass/Vol] 0.4 mg/dL Normal 0.2-1.0 [facility] Comment on above: Performed By: #### L BCLH #### [facility] [address] [place] [address] Dr. Joe hSea Calcium [Mass/Vol] 9.3 mg/dL Normal 8.5-10.1 [facility] Comment on above: Performed By: #### L BCLH #### [facility] [address] [address] [address] Joe Shea Chloride [Moles/Vol] 104 mmol/L Normal 98-107 [facility] Comment on above: Performed By: #### L BCLH #### [facility] [address] [place] [address] Dr. Joe Shea CO2 [Moles/Vol] 28.5 mmol/L Normal 21.0-32.0 [facility] Comment on above: Performed By: #### L BCLH #### [facility] [address] [place] [address] Dr. Joe Shea Creatinine [Mass/Vol] 0.55 mg/dL Normal 0.55-1.02 [facility] Comment on above: Performed By: #### L BCLH #### [facility] [address] [place] [address] Dr. Joe Shea EGFR-AF SAMOAN >60 Normal >=60 [facility] Comment on above: Performed By: #### L BCLH #### [facility] [address] [place] [address] Dr. Joe Shea EGFR-NON AF SAMOAN >60 Normal >=60 [facility] Comment on above: Performed By: #### L BCL #### [facility] [address] [place] [address] Dr. Joe Shea Globulin (S) [Mass/Vol] 3.1 g/dL Normal T [facility] Comment on above: Performed By: #### L BCLH #### [facility] [address] [address] [address] Joe Shea Glucose [Mass/Vol] 90 mg/dL Normal 74-106 [facility] Comment on above: Performed By: #### L BCLH #### [facility] [address] [place] [address] Dr. Joe Shea Potassium [Moles/Vol] 4.2 mmol/L Normal 3.5-5.1 [facility] Comment on above: Performed By: #### L BCLH #### [facility] [address] [place] [address] Dr. Joe Shea Protein [Mass/Vol] 7.5 g/dL Normal 6.4-8.2 [facility] Comment on above: Performed By: #### L BCL #### [facility] [address] [place] [address] Dr. Joe Shea Sodium [Moles/Vol] 140 mmol/L Normal 136-145 [facility] Comment on above: Performed By: #### L BCL #### [facility] [address] [place] [address] Dr. Joe Shea Urea nitrogen [Mass/Vol] 6.0 mg/dL Critically low 7.0-18. 0 [facility] Comment on above: Performed By: #### L BCLH #### [facility] [address] [place] [address] Dr. Joe Shea Urea nitrogen/Creatinine [Mass ratio] 10.9 mg/mg Normal [facility] Comment on above: Performed By: #### L BCLH #### [facility] [address] [place] [address] Dr. Joe Shea PROTIMEon 09-19-2022 INR Coag (PPP) [Relative time] 1.08 {INR} Normal [facility] Comment on above: Performed By: #### L BCL #### [facility] [address] [place] [address] Dr. Joe Shea INR GUIDELINES SEE BELOW Normal [facility] Comment on above: Result Comment: CHICA RED INR: 2.0 - 3.0 CONDITIONS NOT LISTED BELOW 2.5 - 3.5 FOR PROSTHETIC HEART VALVE REPLACEMENT 2.5 - 3.5 RECURRENT THROMBOSIS Performed By: #### L BARRY #### [facility] [address] [place] [address] Dr. Joe Shea PT Coag (PPP) [Time] 11.4 s Normal 9.0-11.6 [facility] Comment on above: Performed By: #### L BARRY #### [facility] [address] [place] [address] Dr. Joe Shea TSHon 09-19-2022 TSH 0.957 uIU/mL Normal 0.358-3.740 [facility] Comment on above: Performed By: #### L BARRY #### [facility] [address] [place] [address] Dr. Joe Shea Pre-Certification Formon Pre-Certification Form [id number] 269#1.00CD:[address] [facility] Consent for Procedure/Surger yon 07-23-2022 Consent for Procedure/Surgery [id number]#1.00CD:[address] [facility] Facesheeton 07-19-2022 Facesheet [id number] 71#1.00CD:[address] [facility] CBC AUTO DIFFon 07-06-2022 BASO # 0.1 103/ul Normal 0.0-0.1 [facility] Comment on above: Performed By: #### C MP, LIPA, NESTOR #### [facility] [address] [place] [address] Dr. Joe Shea Basophils/100 WBC (Bld) 0.8 % Normal 0.2-2.0 [facility] Comment on above: Performed By: #### C CARLYN DE JESUS, NESTOR #### [facility] [address] [place] [address] Dr. Joe Shea EO # 0.4 103/ul Normal 0.0-0.7 [facility] Comment on above: Performed By: #### C CARLYN DE JESUS, NESTOR #### [facility] [address] [place] [address] Dr. Joe Shea Eosinophils/100 WBC (Bld) 4.2 % Normal 0.9-7.0 [facility] Comment on above: Performed By: #### C CARLYN DE JESUS, NESTOR #### [facility] [address] [place] [address] Dr. Joe Shea Erythrocyte distribution width (RBC) [Ratio] 13.5 % Normal 11.0-15.0 [facility] Comment on above: Performed By: #### C CARLYN DE JESUS, NESTOR #### [facility] [address] [place] [address] Dr. Joe Shea Hematocrit (Bld) [Volume fraction] 36.8 % Normal 36.0-48.0 [facility] Comment on above: Performed By: #### C CARLYN DE JESUS, NESTOR #### [facility] [address] [place] [address] Dr. Joe Shea Hemoglobin (Bld) [Mass/Vol] 12.2 g/dL Normal 12.0-16.0 [facility] Comment on above: Performed By: #### C CARLYN DE JESUS, NESTOR #### [facility] [address] [place] [address] Dr. Joe Shea IG # 0.02 10e3/ul Normal 0.00-0.03 [facility] Comment on above: Performed By: #### C CARLYN DE JESUS, NESTOR #### [facility] [address] [place] [address] Dr. Joe Shea IG % 0.2 % Normal 0.0-0.5 [facility] Comment on above: Performed By: #### C MP, LIPA, NESTOR #### [facility] [address] [place] [address] Dr. Joe Shea LYMPH # 2.1 103/ul Normal 1.2-3.8 [facility] Comment on above: Performed By: #### C MP, LIPA, NESTOR #### [facility] [address] [place] [address] Dr. Joe Shea Lymphocytes/100 WBC (Bld) 20.3 % Critically low 20.5-6 0.0 [facility] Comment on above: Performed By: #### C MP, LIPA, NESTOR #### [facility] [address] [place] [address] Dr. Joe Shea MANUAL DIFF REQ NO Normal [facility] Comment on above: Performed By: #### C MP, LIPA, NESTOR #### [facility] [address] [place] [address] Dr. Joe Shea MCH (RBC) [Entitic mass] 28.6 pg Normal 26.7-34.0 [facility] Comment on above: Performed By: #### C MP, LIPA, NESTOR #### [facility] [address] [place] [address] Dr. Joe Shea MCHC (RBC) [Mass/Vol] 33.2 g/dL Normal 29.9-35.2 [facility] Comment on above: Performed By: #### C MP, LIPA, NESTOR #### [facility] [address] [place] [address] Dr. Joe Shea MCV (RBC) [Entitic vol] 86.4 fL Normal 81.0-99.0 [facility] Comment on above: Performed By: #### C MP, LIPA, NESTOR #### [facility] [address] [place] [address] Dr. Joe Shea MONO # 0.6 103/ul Normal 0.3-0.8 [facility] Comment on above: Performed By: #### C MP, LIPA, NESTOR #### [facility] [address] [place] [address] Dr. Joe Shea Monocytes/100 WBC (Bld) 5.5 % Normal 1.7-12.0 [facility] Comment on above: Performed By: #### C CARLYN DE JESUS, NESTOR #### [facility] [address] [place] [address] Dr. Joe Shea NEUT # 7.2 103/ul Critically high 1.4-6.5 [facility] Comment on above: Performed By: #### C CARLYN DE JESUS, NESTOR #### [facility] [address] [place] [address] Dr. Joe Shea Neutrophils/100 WBC (Bld) 69.0 % Normal 43.0-75.0 [facility] Comment on above: Performed By: #### C CARLYN DE JESUS, NESTOR #### [facility] [address] [place] [address] Dr. Joe Shea Platelet mean volume (Bld) [Entitic vol] 10.8 fL Normal 9.5-13.5 [facility] Comment on above: Performed By: #### C HUGO DE JESUSA, NESTOR #### [facility] [address] [place] [address] Dr. Joe Shea PLT 316 103/ul Normal 150-450 [facility] Comment on above: Performed By: #### C CARLYN DE JESUS, NESTOR #### [facility] [address] [place] [address] Dr. Joe Shea RBC 4.26 106/ul Normal 4.20-5.40 [facility] Comment on above: Performed By: #### C CARLYN DE JESUS, NESTOR #### [facility] [address] [place] [address] Dr. Joe Shea WBC 10.4 103/ul Normal 4.0-11.0 [facility] Comment on above: Performed By: #### C HUGO DE JESUSA, NESTOR #### [facility] [address] [place] [address] Dr. Joe Shea PREG QUANT HCGon 07-06-2022 HCG QUANT <1 Normal [facility] Comment on above: Performed By: #### C HUGO DE JESUSA, NESTOR #### [facility] [address] [place], [place] [address] Dr. Joe Shea HCG RANGE SEE BELOW Normal [facility] Comment on above: Result Comment: 5-50 0.2-1 WEEK 50-500 1-2 WEEKS 100-5,000 2-3 WEEKS 500-10,000 3-4 WEEKS 1,000-50,000 4-5 WEEKS 10,000-100,000 5-6 WEEKS 15,000-200,000 6-8 WEEKS 10,000-100,000 2-3 MONTHS Performed By: #### C CARLYN DE JESUS AMY #### [facility] [address] [place], [place] [address] Dr. Joe Shea HEPATITIS C ANTIBODYon 06-26 Hep C Virus Ab <0.1 Normal 0.0-0.9 [facility] Comment on above: Result Comment: Nega [...] Hepatitis C Virus (HCV) RNA, Diagnosis, MEGAN (788251) and Hepatitis C Virus (HCV) Antibody with reflex to Quantitative Real-time PCR ([id number]). Performed By: #### L [facility] #### [facility] [id number] Joe Shea Covid-19 PCR (CVDTB)on 05-31 SARS-CoV-2 (COVID-19) RNA MEGAN+probe Ql (Unsp spec) Not detected Normal NOT DETECTED [facility] Comment on above: Result Comment: This test is not yet approved or cleared by the [place] FDA. When there are no FDA-approved or cleared tests available, and other criteria are met, FDA can make tests available under an emergency access mechanism called an Emergency Use Authorization (EUA). The EUA for this test is supported by the Associate Teacher of Health and Human Service's (HHS's) declaration [...] SARS-CoV-2. Performed By: #### C VDTBH #### [facility] [address] [place] [address] Dr. Joe Shea HEP B SURFACE ANTIGEN SCREEN on 06-12-2022 HBsAg Screen Negative Normal Negative [facility] Comment on above: Performed By: #### D HEASMARICRUZ #### [facility] [address] [place] [address] Dr. Joe Shea HIV 1 AND 2 WITH REFLEXon HIV Screen 4th Generation wRfx Non-Reactive Normal Non Reactive [facility] Comment on above: Result Comment: HIV Negative HIV-1/HIV-2 antibodies and HIV-1 p24 antigen were NOT detected. There is no laboratory evidence of HIV infection. Performed By: #### C CARLYN DE JESUS, NESTOR #### [facility] [address] [place] [address] Dr. Joe Shea RPR QUANTon 06-12-2022 Rapid Plasma Reagin, Quant Non-Reactive Normal NonRea< 1:1 [facility] Comment on above: Result Comment: Plea se Note: This test does not meet current guidelines for screening and diagnosis of syphilis. This test is intended for following treatment response in patients being treated for syphilis infection. To screen for syphilis infection, a reflex cascade that includes both RPR and a treponema-specific assay should be utilized, such as Treponema pallidum (Syphilis) Screening [place] (609122) or Rapid Plasma Reagin (RPR) Test With Reflex to Quantitative RPR and Confirmatory Treponema pallidum Antibodies ([id number]). Performed By: #### C CARLYN DE JESUS, NESTOR #### [facility] [address] [place] [address] Dr. Joe Shea Physician Referralon 022 Physician Referral [id number] A3#1.00CD:127 Normal [facility] US PELVIS AND TRANSVAGon US PELVIS AND [...] ANGIE MEJIA Date: 2022-05-31 17:18 Normal [facility] AMYLASEon 05-23-2022 Amylase [Catalytic activity/Vol] 24 U/L Critically low 25-115 [facility] Comment on above: Performed By: #### C MP, LIPA, NESTOR #### [facility] [address] [place] [address] Dr. Joe Shea CBC AUTO DIFFon 05-23-2022 Eosinophils/100 WBC (Bld) 1.5 % Normal 0.9-7.0 [facility] Comment on above: Performed By: #### L BCLH #### [facility] [address] [address] [address] Joe Shea Erythrocyte distribution width (RBC) [Ratio] 13.5 % Normal 11.0-15.0 [facility] Comment on above: Performed By: #### L BCLH #### [facility] [address] [place] [address] Dr. Joe Shea Hematocrit (Bld) [Volume fraction] 33.0 % Critically low 36.0-48.0 [facility] Comment on above: Performed By: #### L BCLH #### [facility] [address] [place] [address] Dr. Joe Shea Hemoglobin (Bld) [Mass/Vol] 10.7 g/dL Critically low 12.0-16.0 [facility] Comment on above: Performed By: #### L BCLH #### [facility] [address] [place] [address] Dr. Joe Shea LYMPH # 1.2 103/ul Normal 1.2-3.8 [facility] Comment on above: Performed By: #### L BCLH #### [facility] [address] [place] [address] Dr. Joe Shea Lymphocytes/100 WBC (Bld) 20.2 % Critically low 20.5-6 0.0 [facility] Comment on above: Performed By: #### L BCLH #### [facility] [address] [place] [address] Dr. Joe Shea MCH (RBC) [Entitic mass] 28.0 pg Normal 26.7-34.0 [facility] Comment on above: Performed By: #### L BCLH #### [facility] [address] [place] [address] Dr. Joe Shea MCHC (RBC) [Mass/Vol] 32.4 g/dL Normal 29.9-35.2 [facility] Comment on above: Performed By: #### L BCLH #### [facility] [address] [place] [address] Dr. Joe Shea Monocytes/100 WBC (Bld) 7.9 % Normal 1.7-12.0 [facility] Comment on above: Performed By: #### L BCLH #### [facility] [address] [place] [address] Dr. Joe Shea Neutrophils/100 WBC (Bld) 69.9 % Normal 43.0-75.0 [facility] Comment on above: Performed By: #### L BCLH #### [facility] [address] [place] [address] Dr. Joe Shea Platelet mean volume (Bld) [Entitic vol] 10.6 fL Normal 9.5-13.5 [facility] Comment on above: Performed By: #### L BCLH #### [facility] [address] [place] [address] Dr. Joe Shea PLT 233 103/ul Normal 150-450 [facility] Comment on above: Performed By: #### L BCLH #### [facility] [address] [place] [address] Dr. Joe Shea RBC 3.82 106/ul Critically low 4.20-5.40 [facility] Comment on above: Performed By: #### L BCLH #### [facility] [address] [place] [address] Dr. Joe Shea WBC 6.1 103/ul Normal 4.0-11.0 [facility] Comment on above: Performed By: #### L BCLH #### [facility] [address] [place] [address] Dr. Joe Shea BASO # 0.0 103/ul Normal 0.0-0.1 [facility] Comment on above: Performed By: #### L BCLH #### [facility] [address] [place] [address] Dr. Joe Shea Performed By: #### C CARLYN DE JESUS, NESTOR #### [facility] [address] [place] [address] Dr. Joe Shea Basophils/100 WBC (Bld) 0.3 % Normal 0.2-2.0 [facility] Comment on above: Performed By: #### L BCLH #### [facility] [address] [place] [address] Dr. Joe Shea Performed By: #### C MP LIPA, NESTOR #### [facility] [address] [place] [address] Dr. Joe Shea EO # 0.1 103/ul Normal 0.0-0.7 [facility] Comment on above: Performed By: #### L BCLH #### [facility] [address] [place] [address] Dr. Joe Shea Performed By: #### C HUGO DE JESUSA, NESTOR #### [facility] [address] [place] [address] Dr. Joe Shea Eosinophils/100 WBC (Bld) 1.9 % Normal 0.9-7.0 [facility] Comment on above: Performed By: #### C NEAL LIPA, NESTOR #### [facility] [address] [place] [address] Dr. Joe Shea Erythrocyte distribution width (RBC) [Ratio] 13.4 % Normal 11.0-15.0 [facility] Comment on above: Performed By: #### C HUGO DE JESUSA, NESTOR #### [facility] [address] [place] [address] Dr. Joe Shea Hematocrit (Bld) [Volume fraction] 32.3 % Critically low 36.0-48.0 [facility] Comment on above: Performed By: #### C NEAL LIPA, NESTOR #### [facility] [address] [place] [address] Dr. Joe Shea Hemoglobin (Bld) [Mass/Vol] 10.6 g/dL Critically low 12.0-16.0 [facility] Comment on above: Performed By: #### C HUGO DE JESUSA, NESTOR #### [facility] [address] [place] [address] Dr. Joe Shea IG # 0.01 10e3/ul Normal 0.00-0.03 [facility] Comment on above: Performed By: #### L BCL #### [facility] [address] [place] [address] Dr. Joe Shea Performed By: #### C NEAL LIPA, NESTOR #### [facility] [address] [place] [address] Dr. Joe Shea IG % 0.2 % Normal 0.0-0.5 [facility] Comment on above: Performed By: #### L BCLH #### [facility] [address] [place] [address] Dr. Joe Shea Performed By: #### C NEAL LIPA, NESTOR #### [facility] [address] [place] [address] Dr. Joe Shea LYMPH # 1.0 103/ul Critically low 1.2-3.8 [facility] Comment on above: Performed By: #### C MP, LIPA, NESTOR #### [facility] [address] [place] [address] Dr. Joe Shea Lymphocytes/100 WBC (Bld) 16.6 % Critically low 20.5-6 0.0 [facility] Comment on above: Performed By: #### C MP, LIPA, NESTOR #### [facility] [address] [place] [address] Dr. Joe Shea MANUAL DIFF REQ NO Normal [facility] Comment on above: Performed By: #### L BCLH #### [facility] [address] [place] [address] Dr. Joe Shea Performed By: #### C MP, LIPA, NESTOR #### [facility] [address] [place] [address] Dr. Joe Shea MCH (RBC) [Entitic mass] 28.3 pg Normal 26.7-34.0 [facility] Comment on above: Performed By: #### C MP, LIPA, NESTOR #### [facility] [address] [place] [address] Dr. Joe Shea MCHC (RBC) [Mass/Vol] 32.8 g/dL Normal 29.9-35.2 [facility] Comment on above: Performed By: #### C MP, LIPA, NESTOR #### [facility] [address] [place] [address] Dr. Joe Shea MCV (RBC) [Entitic vol] 86.4 fL Normal 81.0-99.0 [facility] Comment on above: Performed By: #### L BCLH #### [facility] [address] [place] [address] Dr. Joe Shea Performed By: #### C MP, LIPA, NESTOR #### [facility] [address] [place] [address] Dr. Joe Shea MONO # 0.5 103/ul Normal 0.3-0.8 [facility] Comment on above: Performed By: #### L BCL #### [facility] [address] [place] [address] Dr. Joe Shea Performed By: #### C MP LIPA, NESTOR #### [facility] [address] [place] [address] Dr. Joe Shea Monocytes/100 WBC (Bld) 9.1 % Normal 1.7-12.0 [facility] Comment on above: Performed By: #### C MP, LIPA, NESTOR #### [facility] [address] [place] [address] Dr. Joe Shea NEUT # 4.3 103/ul Normal 1.4-6.5 [facility] Comment on above: Performed By: #### L BARRY #### [facility] [address] [place] [address] Dr. Joe Shea Performed By: #### C MP, LIPA, NESTOR #### [facility] [address] [place] [address] Dr. Joe Shea Neutrophils/100 WBC (Bld) 71.9 % Normal 43.0-75.0 [facility] Comment on above: Performed By: #### C MP LIPA, NESTOR #### [facility] [address] [place] [address] Dr. Joe Shea Platelet mean volume (Bld) [Entitic vol] 11.0 fL Normal 9.5-13.5 [facility] Comment on above: Performed By: #### C MP, LIPA, NESTOR #### [facility] [address] [place] [address] Dr. Joe Shea PLT 224 103/ul Normal 150-450 [facility] Comment on above: Performed By: #### C MP, LIPA, NESTOR #### [facility] [address] [place] [address] Dr. Joe Shea RBC 3.74 106/ul Critically low 4.20-5.40 [facility] [place] Comment on above: Performed By: #### C MP, LIPA, NESTOR #### [facility] [address] [address] [address] Joe Shea WBC 5.9 103/ul Normal 4.0-11.0 [facility] Comment on above: Performed By: #### C MP, LIPA, NESTOR #### [facility] [address] [address] [address] Joe MOORE URINE PROFILEon 2 Bilirubin Ql (U) Negative Normal NEGATIVE [facility] Comment on above: Performed By: #### L BCLH #### [facility] [address] [address] [address] Joe Shea Clarity (U) CLEAR Normal CLEAR [facility] Comment on above: Performed By: #### L BCLH #### [facility] [address] [place] [address] Dr. Joe Shea Color (U) LT. YELLOW Normal YELLOW [facility] Comment on above: Performed By: #### L BCLH #### [facility] [address] [place] [address] Dr. Joe YUNG A micrscopic examination will be performed if indicated. Normal [facility] Comment on above: Performed By: #### L BCL #### [facility] [address] [place] [address] Dr. Joe Shea Glucose Ql (U) Negative Normal NEGATIVE [facility] Comment on above: Performed By: #### L BCLH #### [facility] [address] [address] [address] Joe Shea Hemoglobin Ql (U) Negative Normal NEGATIVE [facility] Comment on above: Performed By: #### L BCLH #### [facility] [address] [address] [address] Joe Shea Ketones Ql (U) Negative Normal NEGATIVE [facility] Comment on above: Performed By: #### L BCLH #### [facility] [address] [place] [address] Dr. oJe Shea LEUKOCYTES Negative Normal NEGATIVE [facility] Comment on above: Performed By: #### L BCLH #### [facility] [address] [place] [address] Dr. Joe Shea Nitrite Ql (U) Negative Normal NEGATIVE [facility] Comment on above: Performed By: #### L BCL #### [facility] [address] [place] [address] Dr. Joe Shea pH (U) 5.5 [pH] Normal 5-9 [facility] Comment on above: Performed By: #### L BCL #### [facility] [address] [place] [address] Dr. Joe Shea SPEC GRAVITY 1.020 Normal 1.005-<=1.02 5 [facility] Comment on above: Performed By: #### L BARRY #### [facility] [address] [place] [address] Dr. Joe Shea UA PROTEIN Negative Normal NEGATIVE/ TRACE [facility] Comment on above: Performed By: #### L BARRY #### [facility] [address] [place] [address] Dr. Joe Shea UR MICRO IND NOT INDICATED Normal [facility] [place] Comment on above: Performed By: #### L BARRY #### [facility] [address] [place] [address] Dr. Joe Shea Urobilinogen Qn (U) 0.2 {Pascual'U}/dL Normal 0.2 - 1. 0 [facility] Comment on above: Performed By: #### L BARRY #### [facility] [address] [place] [address] Dr. Joe Shea LIPASEon 05-23-2022 Lipase [Catalytic activity/Vol] 63.0 U/L Critically low 73.0-393.0 [facility] Comment on above: Performed By: #### C MP, LIPA, NESTOR #### [facility] [address] [place] [address] Dr. Joe Shea URon 05-23-2022 , QUAL Negative Normal NEGATIVE [facility] [place] Comment on above: Performed By: #### C BC #### [facility] [address] [place] [address] Dr. Joe Shea PROF 14(COMP METB)on 022 Albumin [Mass/Vol] 3.7 g/dL Normal 3.4-5.0 [facility] Comment on above: Performed By: #### C NEAL LIPA, NESTOR #### [facility] [address] [address] [address] Joe Shea Albumin/Globulin [Mass ratio] 1.4 {ratio} Normal [facility] Comment on above: Performed By: #### C MP LIPA, NESTOR #### [facility] [address] [address] [address] Joe Shea ALP [Catalytic activity/Vol] 44 U/L Critically low 46-116 [facility] Comment on above: Performed By: #### C NEAL LIPA, NESTOR #### [facility] [address] [address] [address] Joe Shea ALT [Catalytic activity/Vol] 24 U/L Normal 14-59 [facility] Comment on above: Performed By: #### C NEAL LIPA, NESTOR #### [facility] [address] [address] [address] Joe Shea Anion gap [Moles/Vol] 9.1 mmol/L Normal [facility] Comment on above: Performed By: #### C NEAL LIPA, NESTOR #### [facility] [address] [place] [address] Dr. Joe Shea AST [Catalytic activity/Vol] 18 U/L Normal 15-37 [facility] Comment on above: Performed By: #### C MP, LIPA, NESTOR #### [facility] [address] [address] [address] Joe Shea Bilirubin [Mass/Vol] 0.2 mg/dL Normal 0.2-1.0 [facility] Comment on above: Performed By: #### C MP, LIPA, NESTOR #### [facility] [address] [address] [address] Joe Shea Calcium [Mass/Vol] 8.3 mg/dL Critically low 8.5-10.1 [facility] Comment on above: Performed By: #### C MP, LIPA, NESTOR #### [facility] [address] [address] [address] Joe Shea Chloride [Moles/Vol] 105 mmol/L Normal 98-107 [facility] Comment on above: Performed By: #### C MP, LIPA, NESTOR #### [facility] [address] [address] [address] Joe Shea CO2 [Moles/Vol] 29.7 mmol/L Normal 21.0-32.0 [facility] Comment on above: Performed By: #### C MP, LIPA, NESTOR #### [facility] [address] [address] [address] Joe Shea Creatinine [Mass/Vol] 0.61 mg/dL Normal 0.55-1.02 [facility] Comment on above: Performed By: #### C MP, LIPA, NESTOR #### [facility] [address] [place] [address] Dr. Joe Shea EGFR-AF SAMOAN >60 Normal >=60 [facility] Comment on above: Performed By: #### C MP, LIPA, NESTOR #### [facility] [address] [place] [address] Dr. Joe Shea EGFR-NON AF SAMOAN >60 Normal >=60 [facility] Comment on above: Performed By: #### C MP, LIPA, NESTOR #### [facility] [address] [address] [address] Joe Shea Globulin (S) [Mass/Vol] 2.6 g/dL Normal T [facility] Comment on above: Performed By: #### C MP, LIPA, NESTOR #### [facility] [address] [address] [address] Joe Shea Glucose [Mass/Vol] 92 mg/dL Normal 74-106 [facility] Comment on above: Performed By: #### C MP, LIPA, NESTOR #### [facility] [address] [address] [address] Joe Shea Potassium [Moles/Vol] 3.8 mmol/L Normal 3.5-5.1 [facility] Comment on above: Performed By: #### C CARLYN DE JESUS, NESTOR #### [facility] [address] [place] [address] Dr. Joe Shea Protein [Mass/Vol] 6.3 g/dL Critically low 6.4-8.2 Th e [facility] Comment on above: Performed By: #### C CARLYN DE JESUS, NESTOR #### [facility] [address] [place] [address] Dr. Joe Shea Sodium [Moles/Vol] 140 mmol/L Normal 136-145 [facility] Comment on above: Performed By: #### C CARLYN DE JESUS, NESTOR #### [facility] [address] [place] [address] Dr. Joe Shea Urea nitrogen [Mass/Vol] 9.0 mg/dL Normal 7.0-18.0 [facility] Comment on above: Performed By: #### C CARLYN DE JESUS, NESTOR #### [facility] [address] [place] [address] Dr. Joe Shea Urea nitrogen/Creatinine [Mass ratio] 14.8 mg/mg Normal [facility] Comment on above: Performed By: #### C CARLYN DE JESUS, NESTOR #### [facility] [address] [place] [address] Dr. Joe Shea US SINGLE QUAD RT [...] SHIRLEY PATEL Date: 2022-05-23 08:29 Normal [facility] AMYLASEon 05-22-2022 Amylase [Catalytic activity/Vol] 50 U/L Normal 25-115 [facility] Comment on above: Performed By: #### A MY, CMP, LIPA #### [facility] [address] [place] [address] Dr. Joe Shea CBC AUTO DIFFon 05-22-2022 BASO # 0.1 103/ul Normal 0.0-0.1 [facility] Comment on above: Performed By: #### C MP LIPA, NESTOR #### [facility] [address] [place] [address] Dr. Joe Shea Basophils/100 WBC (Bld) 0.3 % Normal 0.2-2.0 [facility] Comment on above: Performed By: #### C MP LIPA, NESTOR #### [facility] [address] [place] [address] Dr. Joe Shea EO # 0.0 103/ul Normal 0.0-0.7 [facility] Comment on above: Performed By: #### C MP LIPA, NESTOR #### [facility] [address] [place] [address] Dr. Joe Shea Eosinophils/100 WBC (Bld) 0.2 % Critically low 0.9-7. 0 [facility] Comment on above: Performed By: #### C MP LIPA, NESTOR #### [facility] [address] [place] [address] Dr. Joe Shea Erythrocyte distribution width (RBC) [Ratio] 13.3 % Normal 11.0-15.0 [facility] Comment on above: Performed By: #### C MP LIPA, NESTOR #### [facility] [address] [place] [address] Dr. Joe Shea Hematocrit (Bld) [Volume fraction] 39.0 % Normal 36.0-48.0 [facility] Comment on above: Performed By: #### C MP LIPA, NESTOR #### [facility] [address] [address] [address] Joe Shea Hemoglobin (Bld) [Mass/Vol] 12.7 g/dL Normal 12.0-16.0 [facility] Comment on above: Performed By: #### C MP, LIPA, NESTOR #### [facility] [address] [place] [address] Dr. Joe Shea IG # 0.05 10e3/ul Critically high 0.00-0.03 [facility] Comment on above: Performed By: #### C MP, LIPA, NESTOR #### [facility] [address] [place] [address] Dr. Joe Shea IG % 0.3 % Normal 0.0-0.5 [facility] Comment on above: Performed By: #### C MP, LIPA, NESTOR #### [facility] [address] [place] [address] Dr. Joe Shea LYMPH # 0.8 103/ul Critically low 1.2-3.8 [facility] Comment on above: Performed By: #### C MP, LIPA, NESTOR #### [facility] [address] [place] [address] Dr. Joe Shea Lymphocytes/100 WBC (Bld) 4.4 % Critically low 20.5-6 0.0 [facility] Comment on above: Performed By: #### C MP, LIPA, NESTOR #### [facility] [address] [place] [address] Dr. Joe Shea MANUAL DIFF REQ NO Normal [facility] Comment on above: Performed By: #### C MP, LIPA, NESTOR #### [facility] [address] [place] [address] Dr. Joe Shea MCH (RBC) [Entitic mass] 28.1 pg Normal 26.7-34.0 [facility] Comment on above: Performed By: #### C MP, LIPA, NESTOR #### [facility] [address] [place] [address] Dr. Joe Shea MCHC (RBC) [Mass/Vol] 32.6 g/dL Normal 29.9-35.2 [facility] Comment on above: Performed By: #### C CARLYN DE JESUS, NESTOR #### [facility] [address] [place] [address] Dr. Joe Shea MCV (RBC) [Entitic vol] 86.3 fL Normal 81.0-99.0 [facility] Comment on above: Performed By: #### C HUGO DE JESUSA, NESTOR #### [facility] [address] [place] [address] Dr. Joe Shea MONO # 0.4 103/ul Normal 0.3-0.8 [facility] Comment on above: Performed By: #### C CARLYN DE JESUS, NESTOR #### [facility] [address] [place] [address] Dr. Joe Shea Monocytes/100 WBC (Bld) 2.2 % Normal 1.7-12.0 [facility] Comment on above: Performed By: #### C HUGO DE JESUSA, NESTOR #### [facility] [address] [place] [address] Dr. Joe Shea NEUT # 16.7 103/ul Critically high 1.4-6.5 [facility] Comment on above: Performed By: #### C HUGO DE JESUSA, NESTOR #### [facility] [address] [place] [address] Dr. Joe Shea Neutrophils/100 WBC (Bld) 92.6 % Critically high 43.0- 75.0 [facility] Comment on above: Performed By: #### C NEAL LIPA, NESTOR #### [facility] [address] [place] [address] Dr. Joe Shea Platelet mean volume (Bld) [Entitic vol] 11.0 fL Normal 9.5-13.5 [facility] Comment on above: Performed By: #### C NEAL LIPA, NESTOR #### [facility] [address] [place] [address] Dr. Joe Shea PLT 323 103/ul Normal 150-450 [facility] Comment on above: Performed By: #### C MP, LIPA, NESTOR #### [facility] [address] [address] [address] Joe Shea RBC 4.52 106/ul Normal 4.20-5.40 [facility] Comment on above: Performed By: #### C CARLYN DE JESUS, NESTOR #### [facility] [address] [address] [address] Joe Shea WBC 18.0 103/ul Critically high 4.0-11.0 [facility] Comment on above: Performed By: #### C CARLYN DE JESUS, NESTRO #### [facility] [address] [address] [address] Joe Shea ER URINE PROFILEon 2 Bilirubin Ql (U) Negative Normal NEGATIVE [facility] Comment on above: Performed By: #### Althea GTZ #### [facility] [address] [place] [address] Dr. Joe Shea Clarity (U) CLEAR Normal CLEAR [facility] Comment on above: Performed By: #### Althea GTZ #### [facility] [address] [place] [address] Dr. Joe Shea Color (U) YELLOW Normal YELLOW [facility] Comment on above: Performed By: #### Althea GTZ #### [facility] [address] [place] [address] Dr. Joe YUNG A micrscopic examination will be performed if indicated. Normal [facility] Comment on above: Performed By: #### Althea DURÁNUL #### [facility] [address] [place] [address] Dr. Joe Shea Glucose Ql (U) Negative Normal NEGATIVE [facility] Comment on above: Performed By: #### Althea GTZ #### [facility] [address] [place] [address] Dr. Joe Shea Hemoglobin Ql (U) Negative Normal NEGATIVE The [facility] Comment on above: Performed By: #### Althea GTZ #### [facility] [address] [place] [address] Dr. Joe Shea Ketones Ql (U) 15 mg/dl Abnormal NEGATIVE [facility] Comment on above: Performed By: #### Althea GTZ #### [facility] [address] [address] [address] Joe Shea LEUKOCYTES Negative Normal NEGATIVE [facility] Comment on above: Performed By: #### Althea GTZ #### [facility] [address] [place] [address] Dr. Joe Shea Nitrite Ql (U) Negative Normal NEGATIVE [facility] Comment on above: Performed By: #### Althea GTZ #### [facility] [address] [place] [address] Dr. Joe Shea pH (U) 5.5 [pH] Normal 5-9 [facility] Comment on above: Performed By: #### Althea GTZ #### [facility] [address] [place] [address] Dr. Joe Shea SPEC GRAVITY >=1.030 Abnormal 1.005-<=1.02 5 [facility] Comment on above: Performed By: #### Althea GTZ #### [facility] [address] [place] [address] Dr. Joe Shea UA PROTEIN Negative Normal NEGATIVE/ TRACE [facility] Comment on above: Performed By: #### Althea GTZ #### [facility] [address] [place] [address] Dr. Joe Shea UR MICRO IND NOT INDICATED Normal [facility] [place] Comment on above: Performed By: #### Althea GTZ #### [facility] [address] [place] [address] Dr. Joe Shea Urobilinogen Qn (U) 1.0 {Pascual'U}/dL Normal 0.2 - 1. 0 [facility] Comment on above: Performed By: #### Althea GTZ #### [facility] [address] [place] [address] Dr. Joe Shea LACTATE/LACTIC ACIDon 2021 Lactate [Moles/Vol] 1.0 mmol/L Normal 0.4-1.9 [facility] Comment on above: Performed By: #### C BC #### [facility] [address] [place] [address] Dr. Joe Shea LIPASEon 05-22-2022 Lipase [Catalytic activity/Vol] 205.0 U/L Normal 73.0-393.0 [facility] Comment on above: Performed By: #### A MY, CMP, LIPA #### [facility] [address] [address] [address] Joe Shea MRI BRAIN WO CONon [...] by: ANGIE LO Date: 2022-05-22 16:17 Normal [facility] URon 05-22-2022 , QUAL Negative Normal NEGATIVE [facility] [place] Comment on above: Performed By: #### Althea GTZ #### [facility] [address] [place] [address] Dr. Joe Shea PROF 14(COMP METB)on 022 Albumin [Mass/Vol] 4.5 g/dL Normal 3.4-5.0 [facility] Comment on above: Performed By: #### Althea GTZ #### [facility] [address] [place] [address] Dr. Joe Shea Albumin/Globulin [Mass ratio] 1.4 {ratio} Normal [facility] Comment on above: Performed By: #### Althea GTZ #### [facility] [address] [place] [address] Dr. Joe Shea ALP [Catalytic activity/Vol] 60 U/L Normal 46-116 [facility] Comment on above: Performed By: #### Althea GTZ #### [facility] [address] [address] [address] Joe Shea ALT [Catalytic activity/Vol] 17 U/L Normal 14-59 [facility] Comment on above: Performed By: #### Althea GTZ #### [facility] [address] [address] [address] Joe Shea Anion gap [Moles/Vol] 10.9 mmol/L Normal [facility] Comment on above: Performed By: #### Althea GTZ #### [facility] [address] [place] [address] Dr. Joe Shea AST [Catalytic activity/Vol] 19 U/L Normal 15-37 [facility] Comment on above: Performed By: #### Althea GTZ #### [facility] [address] [address] [address] Joe Shea Bilirubin [Mass/Vol] 0.8 mg/dL Normal 0.2-1.0 [facility] Comment on above: Performed By: #### Althea GTZ #### [facility] [address] [place] [address] Dr. Joe Shea Calcium [Mass/Vol] 9.0 mg/dL Normal 8.5-10.1 [facility] Comment on above: Performed By: #### Althea GTZ #### [facility] [address] [address] [address] Joe Shea Chloride [Moles/Vol] 102 mmol/L Normal 98-107 [facility] Comment on above: Performed By: #### Althea GTZ #### [facility] [address] [address] [address] Joe Shea CO2 [Moles/Vol] 28.7 mmol/L Normal 21.0-32.0 [facility] Comment on above: Performed By: #### Althea GTZ #### [facility] [address] [address] [address] Joe Shea Creatinine [Mass/Vol] 0.73 mg/dL Normal 0.55-1.02 [facility] Comment on above: Performed By: #### Althea GTZ #### [facility] [address] [address] [address] Joe Shea EGFR-AF SAMOAN >60 Normal >=60 [facility] Comment on above: Performed By: #### Althea GTZ #### [facility] [address] [address] [address] Joe Shea EGFR-NON AF SAMOAN >60 Normal >=60 [facility] Comment on above: Performed By: #### Althea GTZ #### [facility] [address] [place] [address] Dr. Joe Shea Globulin (S) [Mass/Vol] 3.2 g/dL Normal [facility] Comment on above: Performed By: #### Althea GTZ #### [facility] [address] [place] [address] Dr. Joe Shea Glucose [Mass/Vol] 113 mg/dL Critically high 74-106 [facility] Comment on above: Performed By: #### Althea GTZ #### [facility] [address] [place] [address] Dr. Joe Shea Potassium [Moles/Vol] 3.6 mmol/L Normal 3.5-5.1 [facility] Comment on above: Performed By: #### Althea GTZ #### [facility] [address] [place] [address] Dr. Joe Shea Protein [Mass/Vol] 7.7 g/dL Normal 6.4-8.2 [facility] Comment on above: Performed By: #### Althea GTZ #### [facility] [address] [place] [address] Dr. Joe Shea Sodium [Moles/Vol] 138 mmol/L Normal 136-145 [facility] Comment on above: Performed By: #### Althea GTZ #### [facility] [address] [place] [address] Dr. Joe Shea Urea nitrogen [Mass/Vol] 9.0 mg/dL Normal 7.0-18.0 [facility] Comment on above: Performed By: #### Althea GTZ #### [facility] [address], [place] [address] Dr. Joe Shea Urea nitrogen/Creatinine [Mass ratio] 12.3 mg/mg Normal [facility] Comment on above: Performed By: #### Althea GTZ #### [facility] [id number] Joe Shea XR CHEST 2 Von [...] by: ANA COTE Date: 2022-05-22 02:56 Normal [facility] PROGESTERONEon 05-08-2022 Progesterone 18.1 ng/mL Normal [facility] Comment on above: Result Comment: Foll icular phase 0.1 - 0.9 Luteal phase 1.8 - 23.9 Ovulation phase 0.1 - 12.0 First trimester 11.0 - 44.3 Second trimester 25.4 - 83.3 Third trimester 58.7 - 214.0 Postmenopausal 0.0 - 0.1 Performed By: #### C BC #### [facility] [address] [place] [id number] [address] Joe Shea DHEA SERUMon 04-12-2022 Dehydroepiandrosterone (DHEA) 577 ng/dL Normal 31-701 [facility] Comment on above: Result [...] 701 Performed By: #### C BC #### [facility] [address], [place] [address] Dr. Joe Shea PROGESTERONEon 10-11-2022 Progesterone 16.0 ng/mL Normal [facility] Comment on above: Result Comment: Foll icular phase 0.1 - 0.9 Luteal phase 1.8 - 23.9 Ovulation phase 0.1 - 12.0 First trimester 11.0 - 44.3 Second trimester 25.4 - 83.3 Third trimester 58.7 - 214.0 Postmenopausal 0.0 - 0.1 Performed By: #### Althea GTZ #### [facility] [address] [place] [address] Dr. Joe Shea DHEA-SULFATEon 04-06-2022 DHEA-Sulfate 241.0 ug/dL Normal 110.0-431.7 [facility] Comment on above: Performed By: #### Althea GTZ #### [facility] [address] [place] [address] Dr. Joe Shea FSHon 04-06-2022 FSH 6.6 mIU/mL Normal [facility] Comment on above: Result Comment: Adul t Female: Follicular phase 3.5 - 12.5 Ovulation phase 4.7 - 21.5 Luteal phase 1.7 - 7.7 Postmenopausal 25.8 - 134.8 Performed By: #### Althea GTZ #### [facility] [address] [place] [address] Dr. Joe Shea LUTEINIZING HORMONE (LH)on LH 19.8 mIU/mL Normal [facility] Comment on above: Result Comment: Adul t Female: Follicular phase 2.4 - 12.6 Ovulation phase 14.0 - 95.6 Luteal phase 1.0 - 11.4 Postmenopausal 7.7 - 58.5 Performed By: #### L BCL #### [facility] [address] [place] [address] Dr. Joe Shea CBC AUTO DIFFon 04-05-2022 BASO # 0.1 103/ul Normal 0.0-0.1 [facility] Comment on above: Performed By: #### C BC #### [facility] [address] [place] [address] Dr. Joe Shea Basophils/100 WBC (Bld) 0.9 % Normal 0.2-2.0 [facility] Comment on above: Performed By: #### C BC #### [facility] [address] [place] [address] Dr. Joe Shea EO # 0.2 103/ul Normal 0.0-0.7 [facility] Comment on above: Performed By: #### C BC #### [facility] [address] [place] [address] Dr. Joe Shea Eosinophils/100 WBC (Bld) 2.6 % Normal 0.9-7.0 [facility] Comment on above: Performed By: #### C BC #### [facility] [address] [place] [address] Dr. Joe Shea Erythrocyte distribution width (RBC) [Ratio] 13.1 % Normal 11.0-15.0 [facility] Comment on above: Performed By: #### C BC #### [facility] [address] [place] [address] Dr. Joe Shea Hematocrit (Bld) [Volume fraction] 38.2 % Normal 36.0-48.0 [facility] Comment on above: Performed By: #### C BC #### [facility] [address] [place] [address] Dr. Joe Shea Hemoglobin (Bld) [Mass/Vol] 12.3 g/dL Normal 12.0-16.0 [facility] Comment on above: Performed By: #### C BC #### [facility] [address] [place] [address] Dr. Joe Shea IG # 0.01 10e3/ul Normal 0.00-0.03 [facility] Comment on above: Performed By: #### C BC #### [facility] [address] [place] [address] Dr. Joe Shea IG % 0.2 % Normal 0.0-0.5 [facility] Comment on above: Performed By: #### C BC #### [facility] [address] [place] [address] Dr. Joe Shea LYMPH # 1.7 103/ul Normal 1.2-3.8 [facility] Comment on above: Performed By: #### C BC #### [facility] [address] [place] [address] Dr. Joe Shea Lymphocytes/100 WBC (Bld) 29.2 % Normal 20.5-60.0 [facility] Comment on above: Performed By: #### C BC #### [facility] [address] [place] [address] Dr. Joe Shea MANUAL DIFF REQ NO Normal [facility] Comment on above: Performed By: #### C BC #### [facility] [address] [place] [address] Dr. Joe Shea MCH (RBC) [Entitic mass] 28.4 pg Normal 26.7-34.0 [facility] Comment on above: Performed By: #### C BC #### [facility] [address] [place] [address] Dr. Joe Shea MCHC (RBC) [Mass/Vol] 32.2 g/dL Normal 29.9-35.2 [facility] Comment on above: Performed By: #### C BC #### [facility] [address] [place] [address] Dr. Joe Shea MCV (RBC) [Entitic vol] 88.2 fL Normal 81.0-99.0 [facility] Comment on above: Performed By: #### C BC #### [facility] [address] [place] [address] Dr. Joe Shea MONO # 0.5 103/ul Normal 0.3-0.8 [facility] Comment on above: Performed By: #### C BC #### [facility] [address] [place] [address] Dr. Joe Shea Monocytes/100 WBC (Bld) 8.2 % Normal 1.7-12.0 [facility] Comment on above: Performed By: #### C BC #### [facility] [address] [place] [address] Dr. Joe Shea NEUT # 3.4 103/ul Normal 1.4-6.5 [facility] Comment on above: Performed By: #### C BC #### [facility] [address] [address] [address] Joe Shea Neutrophils/100 WBC (Bld) 58.9 % Normal 43.0-75.0 [facility] Comment on above: Performed By: #### C BC #### [facility] [address] [address] [address] Joe Shea Platelet mean volume (Bld) [Entitic vol] 11.5 fL Normal 9.5-13.5 [facility] Comment on above: Performed By: #### C BC #### [facility] [address] [address] [address] Joe Shea PLT 233 103/ul Normal 150-450 [facility] Comment on above: Performed By: #### C BC #### [facility] [address] [place] [address] Dr. Joe Shea RBC 4.33 106/ul Normal 4.20-5.40 [facility] Comment on above: Performed By: #### C BC #### [facility] [address] [place] [address] Dr. Joe Shea WBC 5.8 103/ul Normal 4.0-11.0 [facility] Comment on above: Performed By: #### C BC #### [facility] [address] [place] [address] Dr. Joe Shea GLYCOHEMOGLOBIN A1Con 2021 ADA RECOMMENDATION SEE BELOW Normal [facility] Comment on above: Result Comment: ADA RECOMMENDED LIMIT 4.0 - 6.0 ADA THERAPEUTIC TARGET < 7.0 ACTION SUGGESTED > 7.0 Performed By: #### C CARLYN DE JESUS AMY #### [facility] [address] [place] [address] Dr. Joe Shea Glucose [Mass/Vol] 105 mg/dL Normal [facility] Comment on above: Performed By: #### C CARLYN DE JESUS AMY #### [facility] [address] [place] [address] Dr. Joe Shea HbA1c (Bld) [Mass fraction] 5.3 % Normal 4.5-6.2 [facility] Comment on above: Performed By: #### C MP, LIPA, NESTOR #### [facility] [address] [address] [address] Joe Shea TSHon 04-05-2022 TSH 0.609 uIU/mL Normal 0.358-3.740 [facility] Comment on above: Performed By: #### C BC #### [facility] [address] [address] [address] Joe Shea US PELVIS AND TRANSVAGon [...] ANGIE MEJIA Date: 2022-04-05 17:23 Normal [facility] AMYLASEon 03-10-2022 Amylase [Catalytic activity/Vol] 64 U/L Normal 25-115 [facility] Comment on above: Performed By: #### C BC #### [facility] [address] [address] [address] Joe Shea CBC AUTO DIFFon 03-10-2022 BASO # 0.1 103/ul Normal 0.0-0.1 [facility] Comment on above: Performed By: #### C BC #### [facility] [address] [address] [address] Joe Shea Basophils/100 WBC (Bld) 0.6 % Normal 0.2-2.0 [facility] Comment on above: Performed By: #### C BC #### [facility] [address] [address] [address] Joe Shea EO # 0.3 103/ul Normal 0.0-0.7 [facility] Comment on above: Performed By: #### C BC #### [facility] [address] [place] [address] Dr. Joe Shea Eosinophils/100 WBC (Bld) 1.7 % Normal 0.9-7.0 [facility] Comment on above: Performed By: #### C BC #### [facility] [address] [place] [address] Dr. Joe Shea Erythrocyte distribution width (RBC) [Ratio] 13.1 % Normal 11.0-15.0 [facility] Comment on above: Performed By: #### C BC #### [facility] [address] [place] [address] Dr. Joe Shea Hematocrit (Bld) [Volume fraction] 37.9 % Normal 36.0-48.0 [facility] Comment on above: Performed By: #### C BC #### [facility] [address] [place] [address] Dr. Joe Shea Hemoglobin (Bld) [Mass/Vol] 12.2 g/dL Normal 12.0-16.0 [facility] Comment on above: Performed By: #### C BC #### [facility] [address] [place] [address] Dr. Joe Shea IG # 0.05 10e3/ul Critically high 0.00-0.[address] [facility] Comment on above: Performed By: #### C BC #### [facility] [address] [place] [address] Dr. Joe Shea IG % 0.3 % Normal 0.0-0.5 [facility] Comment on above: Performed By: #### C BC #### [facility] [address] [place] [address] Dr. Joe Shea LYMPH # 4.7 103/ul Critically high 1.2-3.8 The [place] Comment on above: Performed By: #### C BC #### [facility] [address] [place] [address] Dr. Joe Shea Lymphocytes/100 WBC (Bld) 28.3 % Normal 20.5-60.0 [facility] Comment on above: Performed By: #### C BC #### [facility] [address] [place] [address] Dr. Joe Shea MANUAL DIFF REQ NO Normal [facility] Comment on above: Performed By: #### C BC #### [facility] [address] [place] [address] Dr. Joe Shea MCH (RBC) [Entitic mass] 27.9 pg Normal 26.7-34.0 [facility] Comment on above: Performed By: #### C BC #### [facility] [address] [place] [address] Dr. Joe Shea MCHC (RBC) [Mass/Vol] 32.2 g/dL Normal 29.9-35.2 [facility] Comment on above: Performed By: #### C BC #### [facility] [address] [place] [address] Dr. Joe Shea MCV (RBC) [Entitic vol] 86.5 fL Normal 81.0-99.0 [facility] Comment on above: Performed By: #### C BC #### [facility] [address] [place] [address] Dr. Joe Shea MONO # 0.9 103/ul Critically high 0.3-0.8 [facility] [place] Comment on above: Performed By: #### C BC #### [facility] [address] [place] [address] Dr. Joe Shea Monocytes/100 WBC (Bld) 5.5 % Normal 1.7-12.0 [facility] Comment on above: Performed By: #### C BC #### [facility] [address] [place] [address] Dr. Joe Shea NEUT # 10.5 103/ul Critically high 1.4-6.5 [facility] Comment on above: Performed By: #### C BC #### [facility] [address] [place] [address] Dr. Joe Shea Neutrophils/100 WBC (Bld) 63.6 % Normal 43.0-75.0 [facility] Comment on above: Performed By: #### C BC #### [facility] [address] [address] [address] Joe Shea Platelet mean volume (Bld) [Entitic vol] 11.1 fL Normal 9.5-13.5 [facility] Comment on above: Performed By: #### C BC #### [facility] [address] [address] [address] Joe Shea PLT 428 103/ul Normal 150-450 [facility] Comment on above: Performed By: #### C BC #### [facility] [address] [address] [address] Joe Shea RBC 4.38 106/ul Normal 4.20-5.40 [facility] Comment on above: Performed By: #### C BC #### [facility] [address] [address] [address] Joe Shea WBC 16.6 103/ul Critically high 4.0-11.0 [facility] Comment on above: Performed By: #### C BC #### [facility] [address] [place] [address] ABD/PELV W CONon [...] by: MURALI STRANGE Date: 2022-03-10 16:59 Normal [facility] LIPASEon 03-10-2022 Lipase [Catalytic activity/Vol] 81.0 U/L Normal 73.0-393.0 [facility] Comment on above: Performed By: #### C BC #### [facility] [address] [place] [address] Dr. Joe Shea LIVER PROFILEon 03-10-2022 Albumin [Mass/Vol] 4.2 g/dL Normal 3.4-5.0 [facility] Comment on above: Performed By: #### C BC #### [facility] [address] [place] [address] Dr. Joe Shea Albumin/Globulin [Mass ratio] 1.4 {ratio} Normal [facility] Comment on above: Performed By: #### C BC #### [facility] [address] [place] [address] Dr. Joe Shea ALP [Catalytic activity/Vol] 50 U/L Normal 46-116 [facility] Comment on above: Performed By: #### C BC #### [facility] [address] [place] [address] Dr. Joe Shea ALT [Catalytic activity/Vol] 14 U/L Normal 14-59 [facility] Comment on above: Performed By: #### C BC #### [facility] [address] [place] [address] Dr. Joe Shea AST [Catalytic activity/Vol] 13 U/L Critically low 15-37 [facility] Comment on above: Performed By: #### C BC #### [facility] [address] [place] [address] Dr. Joe Shea BILI, CONJUGATED 0.1 mg/dL Normal 0.0-0.2 [facility] Comment on above: Performed By: #### C BC #### [facility] [address] [address] [address] Joe Shea Bilirubin [Mass/Vol] 0.3 mg/dL Normal 0.2-1.0 [facility] Comment on above: Performed By: #### C BC #### [facility] [address] [address] [address] Joe Shea Globulin (S) [Mass/Vol] 3.1 g/dL Normal [facility] Comment on above: Performed By: #### C BC #### [facility] [address] [address] [address] Joe Shea Protein [Mass/Vol] 7.3 g/dL Normal 6.4-8.2 [facility] Comment on above: Performed By: #### C BC #### [facility] [address] [address] [address] Joe Shea PREG HCG QUALon 03-10-2022 , QUAL Negative Normal NEGATIVE [facility] Comment on above: Performed By: #### L BCLH #### [facility] [address] [address] [address] Joe Shea PROF CHEM 8 (BAS METB)on Anion gap [Moles/Vol] 17.6 mmol/L Normal [facility] Comment on above: Performed By: #### C MP, LIPA, NESTOR #### [facility] [address] [address] [address] Joe Shea Calcium [Mass/Vol] 9.0 mg/dL Normal 8.5-10.1 [facility] Comment on above: Performed By: #### C MP, LIPA, NESTOR #### [facility] [address] [address] [address] Joe Shea Chloride [Moles/Vol] 102 mmol/L Normal 98-107 [facility] Comment on above: Performed By: #### C MP, LIPA, NESTOR #### [facility] [address] [address] [address] Joe Shea CO2 [Moles/Vol] 23.4 mmol/L Normal 21.0-32.0 [facility] Comment on above: Performed By: #### C MP, LIPA, ENSTOR #### [facility] [address] [address] [address] Joe Shea Creatinine [Mass/Vol] 0.84 mg/dL Normal 0.55-1.02 [facility] Comment on above: Performed By: #### C MP, LIPA, NESTOR #### [facility] [address] [address] [address] Joe Shea EGFR-AF SAMOAN >60 Normal >=60 [facility] Comment on above: Performed By: #### C MP, LIPA, NESTOR #### [facility] [address] [place] [address] Dr. Joe Shea EGFR-NON AF SAMOAN >60 Normal >=60 [facility] Comment on above: Performed By: #### C MP, LIPA, NESTOR #### [facility] [address] [place] [address] Dr. Joe Shea Glucose [Mass/Vol] 149 mg/dL Critically high 74-106 [facility] Comment on above: Performed By: #### C MP, LIPA, NESTOR #### [facility] [address] [place] [address] Dr. Joe Shea Potassium [Moles/Vol] 2.9 mmol/L Critically low 3.5-5.1 [facility] Comment on above: Performed By: #### C MP, LIPA, NESTOR #### [facility] [address] [address] [address] Joe Shea Sodium [Moles/Vol] 139 mmol/L Normal 136-145 [facility] Comment on above: Performed By: #### C MP, LIPA, NESTOR #### [facility] [address] [place] [address] Dr. Joe Shea Urea nitrogen [Mass/Vol] 11.0 mg/dL Normal 7.0-18.0 [facility] Comment on above: Performed By: #### C MP, LIPA, NESTOR #### [facility] [address] [place] [address] Dr. Joe Shea Urea nitrogen/Creatinine [Mass ratio] 13.1 mg/mg Normal [facility] Comment on above: Performed By: #### C CARLYN DE JESUS AMY #### [facility] [address], [place] [address] Dr. Joe Shea XR CSPINE 2_3 VIEWSon [...] by: ANGIE MEJIA Date: 2022-01-18 08:03 Normal [facility] C BP Strepon 12-23-2019 C BP Strep This is strictly a screening test for Strep Group A( Streptococcus pyogenes). No other pathogens will be noted. Final Backup plate negative for Group A Streptococus Resulted at [facility] Normal [facility] Comment on above: Performed By: #### B P #### [facility] (DEFAULT) [address] [place] [address] [facility] [address] [place] [address] Ambulatory Patient Education on 12-21-2019 Ambulatory Patient [...] a child 2 years or older. ? [id number] [facility]. [address] [place] [address], [place] [address]. All rights reserved. This information is not intended as a substitute for professional medical care. Always follow your healthcare professional's instructions. Strep today is Negative. Will send for culture to [facility] and notify if it returns positive. Take medication as prescribed. Discontinue for a negative strep culture. Discard and replace toothbrush after taking antibiotics for at least 24 hours. May use xxyu-rwe-iscqmea Tylenol and Motrin for pain relief. May use of efmw-mmj-ytzsvyt Chloraseptic throat spray, lozenges, cool or warm [...] 0 Refill(s), 12/26/19 14:42:00 EDT, Pharmacy: [facility] [id number] [facility] [place] Track[place] 12-21-2019 BVO Red Swab # 1 [facility] Comment on above: Performed By: #### [facility] Tracking Order #### [facility] [address] [place] [address] Urgent Care Office/Clinic No sabiha 12-21-2019 Urgent [...] POC: negative. Swab will be sent to [facility] for culture. We will call if positive and treat appropriately. Additional Vitals Body Mass Index Measured: 18.43 kg/m2 Peripheral Pulse Rate: 111 bpm High Assessment/Plan 1. Sore throat Strep today is Negative. Will send for culture to [facility] and notify if it returns positive. Take medication as prescribed. Discontinue for a negative strep culture. Discard and replace toothbrush after taking antibiotics for at least 24 hours. May use sgnj-qzx-mncirzv Tylenol and Motrin for pain relief. May use of vbdd-mmm-srwydii Chloraseptic throat spray, lozenges, cool or warm [...] 0 Refill(s), 12/26/19 14:42:00 EDT, Pharmacy: [facility] [id number] [facility] criteria reviewed. [...] by Rosa Fitch 12/21/19 15:01 EDT Normal [facility] Vital Signs Date Time Vital Sign Value Performing Clinician Facility 03-28-2023 10:16-0400 Body height 157.48 cm Referring Provider Unknown [id number] [address] [place] Work Phone: 03-28-2023 10:16-0400 Body mass index (BMI) [Ratio] 23.78 kg/m2 Referring Provider Unknown [id number] [address] [place] Work Phone: 03-28-2023 10:16-0400 Body surface area Derived from formula 1.59 m2 Referring Provider Unknown [id number] [address] [place] Work Phone: 03-28-2023 10:16-0400 Body weight 58.97 kg Referring Provider Unknown [id number] [address] [place] Work Phone: 03-28-2023 10:16-0400 Diastolic blood pressure 65 mm[Hg] Referring Provider Unknown [id number] [address] [place] Work Phone: 03-28-2023 10:16-0400 Heart rate 96 /min Referring Provider Unknown [id number] [address] [place] Work Phone: 03-28-2023 10:16-0400 Systolic blood pressure 107 mm[Hg] Referring Provider Unknown [id number] [address] [place] Work Phone: 03-28-2023 10:16-0400 0 1 Referring Provider Unknown [id number] [address] [place] Work Phone: Comment on above: [employer] 02-14-2023 09:15-0400 Body height 154.94 cm Filippo Larson Other [employer] Other 02-14-2023 09:15-0400 Body mass index (BMI) [Ratio] 21.73 kg/m2 Filippo Larson Other [employer] Other 02-14-2023 09:15-0400 Body weight 52.16 kg Filippo Larson Other [employer] Other 02-14-2023 09:15-0400 Diastolic blood pressure 68 mm[Hg] Filippo Larson Other [employer] Other 02-14-2023 09:15-0400 Systolic blood pressure 96 mm[Hg] Filippo Larson Other [employer] Other 07-17-2022 14:26-0500 Blood Pressure Location Mayito OBANDOL [facility] 07-17-2022 14:26-0500 Diastolic blood pressure 70 mm[Hg] Mayito NILL [facility] 07-17-2022 14:26-0500 Heart rate 70 /min Mayito NILL [facility] 07-17-2022 14:26-0500 Respiratory rate 16 /min Mayito NILL [facility] 07-17-2022 14:26-0500 Systolic blood pressure 102 mm[Hg] Mayito OBANDOCourtney [facility] [place] 03-09-2020 20:24-0400 BP Diastolic 61 mm[Hg] PHYSICIAN NO [facility] 03-09-2020 20:24-0400 BP Systolic 117 mm[Hg] PHYSICIAN NO [facility] 03-09-2020 20:24-0400 Pulse (Heart Rate) 85 /min PHYSICIAN NO [facility] 03-09-2020 20:24-0400 Pulse Oximetry 100 % PHYSICIAN NO [facility] 03-09-2020 20:24-0400 Respiratory Rate 24 /min PHYSICIAN NO [facility] 03-09-2020 18:49-0400 BMI (Body Mass Index) 20 kg/m2 PHYSICIAN NO [facility] 03-09-2020 18:49-0400 Body Temperature 98.7 [degF] PHYSICIAN NO [facility] 03-09-2020 18:49-0400 Body weight 49.7 kg PHYSICIAN NO [facility] 03-09-2020 18:49-0400 Height 157.48 cm PHYSICIAN NO [facility] Encounters Encounter Date Encounter Type Care Provider Facility Start: 07-09-2023 End: 07-09-2023 ambulatory CECIL QUINTANA Not Available Start: 07-08-2023 End: 07-08-2023 ambulatory LYLY SMITH [facility] pital Start: 07-08-2023 End: 07-08-2023 Office outpatient visit 15 minutes Paulie Cervantes MD Work Phone: [facility] [facility] Comment on above: 34 weeks gestation o f (Primary Dx); Poor growth affecting management of mother in third trimester, fetus 1 of multiple gestation; Dichorionic diamniotic twin in third trimester; Anxiety during Start: 07-04-2023 Orders Only Freddy Christensen rnal- Medicine at [facility] Comment on above: Dichorionic diamniot ic twin in third trimester (Primary Dx); Poor growth affecting management of mother in third trimester, fetus 1 of multiple gestation Start: 07-03-2023 End: 07-04-2023 ambulatory AMADEO mills Start: 06-11-2023 End: 06-11-2023 ambulatory NESTOR PRICE Not Available Start: 05-28-2023 End: 05-28-2023 ambulatory CCEIL QUINTANA Not Available Start: 05-14-2023 End: 05-14-2023 ambulatory NESTOR PRICE Not Available Start: 03-28-2023 Office consultation new/estab patient 80 min Referring Provider Unknown [id number] [address] [place] Work Phone: Start: 03-28-2023 Patient encounter procedure Referring Provider Unknown [id number] 1200 [place] Work Phone: Start: 03-28-2023 ambulatory Ramakrishna Mari Facility :[facility] Start: 02-14-2023 End: 02-14-2023 ambulatory Filippo Larson Other [employer] Other Start: 02-14-2023 Office outpatient vi sit [...] 07-17-2022 End: 07-18-2022 ambulatory SUKI CONDE PROVIDER Facility:[facility] Start: 07-17-2022 End: 07-17-2022 Patient encounter procedure Mayito LIM General Surgery [facility] Start: 07-10-2022 End: 07-10-[address] CECIL QUINTANA . Facility: Start: 07-08-2022 Encounter for preprocedural laboratory examination DR CECIL QUINTANA . [facility] Start: 07-06-2022 End: 07-07-[address] CECIL QUINTANA . Facility:[facility] Start: 07-06-2022 End: 07-07-2022 Encounter for preprocedural laboratory examination DR CECIL QUINTANA . Facility:[facility] Start: 06-15-2022 End: 06-16-[address] CECIL QUINTANA . Facility:[facility] Start: 06-11-2022 End: 06-12-2022 ambulatory JUANJOSE VIRAMONTES Facility:[facility] Start: 06-08-2022 ambulatory SUKI CONDE PROVIDER Facility:[facility] Start: 05-31-2022 End: 06-01-[address] CECIL [...] 03-09-2020 Emergency department patient visit PHYSICIAN KIMI RO [facility] Start: 04-27-2014 End: 04-27-2014 Telephone encounter Noa Dimas MD Work Phone: Reproductive Endocrinology Infertility Procedures Date Procedure Procedure Detail Performing Clinician Start: 10-25-2020 Microscopic observation [Identifier] in Cervix by Cyto stain Freddy Hughes JAVA CONSULTANT Colonoscopy Mayito NILL Dilation and curettage Temo douglass NILL Dilation and curettage Temo douglass NILL Esophagogastroduodenoscopy M ichdemar NILL Excision of cyst of ovary Mi chaevonne NILL Laparoscopy Mayito NILL Plan of Treatment Date Care Activity Detail Author Start: 05-28-2032 DTaP,Tdap and Td Vaccines (8 - Td or Tdap) DTaP,Tdap and Td Vaccines (8 - Td or Tdap) [facility] Start: 07-04-2024 End: 07-04-2024 US MFM with or without consult US M with or without consult Imaging Routine Dichorionic diamniotic twin in third trimester Poor growth affecting management of mother in third trimester, fetus 1 of multiple gestation Expected: 07/04/2024 (Approximate), Expires: 07/04/2024 [facility] Work Phone: Comment on above: Expected: 07/04/2024 (Approximate), Expires: 07/04/2024 Start: 06-03-2024 Adult BMI Screening Adult BMI Screen ing [facility] Start: 06-03-2024 Tobacco Screening Tobacco Screening [facility] Start: 2024 Screening for Chlamy carroll trachomatis Chlamydia Screening [facility] Start: 10-26-2023 Screening for malign ant neoplasm of cervix Pap Smear [facility] Start: 07-17-2023 End: 07-17-2023 Patient encounter procedure 07/17/2023 9:30 AM EST Appointment [facility] [address] [place] [id number] [facility] Start: 07-08-2023 End: 07-08-2023 Telemedicine consultation with patient 07/08/2023 1:00 PM EST Telemedicine Maternal- Medicine at [facility] [address] [facility] [place] [phone] Paulie Cervantes MD [address] [facility] [place] [address] Lyly Smith MD [address] [facility] [address] [place] [address] Maternal- Medicine at [facility] Start: 03-01-2023 Influenza vaccination Influenza Vacc ine [facility] Start: 03-01-2021 Influenza vaccination INFLUENZ A (Season Ended) [facility] Start: 02-28-2020 PAP TESTING PAP TESTING [facility] Start: 2018 Urine microalbumin profile DTAP,TDAP,TD (1 - Tdap) [facility] Start: 2017 Adult BMI Follow Up Plan Adult BMI Follow Up Plan [facility] Start: 2017 CHLAMYDIA SCREENING (18-24) CHLAMYDIA SCREENING (18-24) [facility] Start: 2017 GC (GONORRHEA) SCREE KRUNAL (18-24) GC (GONORRHEA) SCREENING (18-24) [facility] Start: 2017 HEPATITIS C SCREENING HEPATITIS C SC REENING [facility] Start: 2017 HIV SCREENING HIV SCREENING [facility] Start: 2011 Adult depression screening assessment DEPRESSION SCREENING [facility] Start: 2010 HPV VACCINE (1 - 2-d ose series) HPV VACCINE (1 - 2-dose series) [facility] Patient Education Anxiety (ED) [facility] Patient referral [facility] Immunizations Immunization Date Immunization Notes Care Provider Laverne irizarry 01-05-2022 influenza virus vaccine, unspecified formulation Freddy Hughes [facility] NEGATED: Highlighted row has not occurred!07-17-2022 influenza virus vaccine, unspecified formulation Mayito LIM [facility] [place] Payers Date Payer Category Payer Unknown 2013 Unknown [facility] CE PLAN [employer] P[employer] [id number] 2013-2014 PPO [id number] 1999 Unknown [id number] 2.16.840.1.367416.3.579.2.727 1999 Unknown [id number] 2.16.840.1.777033.3.579.2.727 1999 Unknown [id number] 2.16.840.1.803523.3.579.2.593 1999 Unknown [id number] 2.16.840.1.187281.3.579.2.593 1999 Unknown [id number] 2.16.840.1.115567.3.579.2.593 1999 Unknown [id number] 2.16.840.1.607572.3.579.2.593 1999 Unknown [id number] 2.16.840.1.668543.3.579.2.593 1999 Unknown [id number] 2.16.840.1.823944.3.579.2.593 1999 Unknown [id number] 2.16.840.1.088476.3.579.2.593 1999 Unknown [id number] 2.16.840.1.083022.3.579.2.593 1999 Unknown [id number] 2.16.840.1.819131.3.579.2.593 1999 Unknown [id number] 2.16.840.1.173891.3.579.2.593 1999 Unknown [id number] 2.16.840.1.777794.3.579.2.593 1999 Unknown [id number] 2.16.840.1.136913.3.579.2.593 1999 Unknown [id number] 2.16.840.1.124761.3.579.2.593 1999 Unknown [id number] 2.16.840.1.124166.3.579.2.593 1999 Unknown [id number] 2.16.840.1.836447.3.579.2.593 1999 Unknown [id number] 2.16.840.1.555149.3.579.2.593 1999 Unknown [id number] 2.16.840.1.069428.3.579.2.593 1999 Unknown [id number] 2.16.840.1.473878.3.579.2.593 1999 Unknown [id number] 2.16840.1.769666.3.579.2.593 1999 Unknown [id number] 2.16.840.1.870963.3.579.2.593 1999 Unknown [id number] 2.16.840.1.793000.3.579.2.593 1999 Unknown [id number] 2.16.840.1.127642.3.579.2.356 1999 Unknown [id number] 2.16840.1.583813.3.579.2.1259 1999 Unknown [id number] 2.16.840.1.110348.3.579.2.1259 1999 Unknown [id number] 2.16.840.1.065246.3.579.2.1259 1999 Unknown [id number] 2.16.840.1.235145.3.579.2.1259 1999 Unknown [id number] 2.16.840.1.117532.3.579.2.1286 1999 Unknown [id number] 2.16.840.1.167105.3.579.2.1286 1959 Unknown [id number] 1959 Unknown [id number] 1959 Unknown [id number] Self-pay Self Pay [id number] Unknown Self Pay [id number] Social History Date Type Detail Facility Start: 03-09-2020 Tobacco smoking status NHIS Smoker (finding) 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 (finding) [facility] Start: 1999 Sex Assigned At Not on file [facility] Start: 07-17-2022 End: 04-01-2023 Tobacco smoking status Ex-smoker (finding) [facility] [place] Tobacco smoking status Smokeless tobacco user within last 30 days [facility] Start: 06-03-2023 Sex Assigned At Female [facility] Start: 04-01-2023 End: 06-03-2023 No alcohol use No alcohol use [facility] History of tobacco use Cigarette Smoker [facility] Start: 06-03-2023 Alcohol intake Ex-drinker (finding) [facility] Start: 10-25-2020 Alcohol Comment RARELY [facility] Start: 11-22-2022 [facility] NEGATED: Highlighted row Denies History of domestic violence Denies History of domestic violence [id number] [address] [place] Work Phone: Goals Date Patient Goal Desired Activity /State Functional Status Date Assessment Result Facility 07-17-2022 Functional Status N/A [facility] Clinical Notes 04-27-2014 to 07-08-2023 Lyly Smith MD - 07/08/2023 1:00 PM EST Note Date & Type Note Facility 07-08-2023 History of Present illness Narrative Video Visit via Real-time Synchronous Audiovisual Provider Location: [facility]- MEDICINE AT [address] [phone] Patient Location: Patient Location [employer] Interleafer: None Video Visit Consent Statement: I discussed [...] that there are some limitations compared to kpna-to-qpas evaluations. We elected to proceed. REASON FOR OFFICE VISIT: Dichorionic diamniotic twin gestation, growth restriction of twin a HISTORY OF PRESENT ILLNESS: Shanon Louise is a pleasant 23 y.o. G 1 P0 at 34w4d due on Estimated Date of Delivery: 08/15/23 . has been complicated with Dichorionic diamniotic twin gestation resulting from assisted reproductive therapy growth restriction of twin a, normal umbilical artery Dopplers Resolved subchorionic hematomas in twin a and B, status post 2nd opinion at [facility] Anxiety/ depression, managed on citalopram 40 mg [...] hypokalemia Anxiety and depression Bipolar 2 disorder ([facility]) Chronic abdominal pain Endometriosis Intractable nausea and [...] and B, status post 2nd opinion at [facility] COUNSELING We reviewed signs symptoms of labor [...] Serial Doppler studies for growth restriction at [facility] office, Doppler studies remain normal, repeat on 07/17/2023 Delivery scheduled at 37 weeks' gestation with primary OB at local hospital, primary due to male presentation of twin a, breech Patient is scheduled for repeat umbilical artery Doppler assessment in 2 weeks, no future clinic visits with [facility] Thank you for allowing me to participate in Shanon Louise care. If there are any questions, please do not hesitate to call me. Lyly Smith MD [facility]aternal- [facility] [address] [place] [address] documented in this encounter [employer] 02-14-2023 Evaluation note Encounter Date Diagnosis Assessment [...] needed. Retrun visit here in three months. [employer] Other 01-20-2023 NoteChief Complaint consultation for epigastric [...] Reports colonoscopy completed several years ago at [facility] was normal. History of Present Illness 22 yo female with h/o bipolar disorder, anxiety, migraines, referred for intermittent epigastric and LUQ pain, burning, at times sharp/stabbing; occasional N/V; + boating; no food triggers, occurs celia without eating; no hematemesis or melena; no hematochezia, some constipation, improved with stool softeners; had normal EGD and colonoscopy at [facility] in 2016; abdominal operations significant for laparoscopy [...] more than 30 da (more content not included)...[facility]Result Comment: Electronically Signed By: RAPHAEL MACIAS, Mayito Matthews\Date and Time Signed: 07/20/22 14:58 [id number] Note OPERATIVE NOTE OPERATION DATE: 07/10/2021 PROCEDURE: Diagnostic laparoscopy with chromopertubation. PREOPERATIVE DIAGNOSIS: Pelvic pain. POSTOPERATIVE DIAGNOSIS: Pelvic pain, including small endometrial implant posterior cul-de-sac, as well as possible blunted tube on the patient's left side. ANESTHESIA: General. SURGEON: Cecil Quintana D.O. DEALER ACCOUNT MANAGER: ISAURO Mccoy URINE OUTPUT: Yellow and clear. BLOOD LOSS: 5 mL. FINDINGS: Slightly blunted tube on the left side, endometriosis posterior cul-de-sac, otherwise normal appearing uterus, tubes and ovaries. Normal appearing appendix. Some adhesions of the bowel to the pelvic and abdominal side wall on the patient's right side. Normal appearing liver. No evidence of Hrrw-Ekmo-Ewiuap syndrome. PROCEDURE: The patient was taken back [...] [facility] NoteOP Note OPERATION DATE: 07/10/2022 PROCEDURE: Diagnostic laparoscopy with chromopertubation. PREOPERATIVE DIAGNOSIS: Pelvic pain, suspected endometriosis, fallopian tube disorder. POSTOPERATIVE DIAGNOSIS: Pelvic pain, suspected endometriosis, fallopian tube disorder, including mild endometriosis, bilateral patent fallopian tubes, small bowel adhesion to the pelvic side wall. ANESTHESIA: General. SURGEON: Cecil Quintana D.O. DEALER ACCOUNT MANAGER: ISAURO Mccoy URINE OUTPUT: Yellow and clear. BLOOD LOSS: 5 mL. ADDENDUM: Please note that chromopertubation was performed after methylene blue was placed through the HUMI manipulator. Spillage of methylene blue could be seen from both tubes.[id number] Instructions* Patient Instructions* Gutiérrezesa - 04/27/2014 4:49 PM EDT [phone] - Patient mother would like to speak with a nurse concerning medications that her daughter is taking. [facility] N[facility]ative - Reported * the patient is seen at the request of Dr. Gonzales at [facility] for consultation regarding second opinion for placental hemorrhage; EDC 08/15/2023 * FC MA [id number] [address] [place] Work Phone: chief complaint Narrative - Reported* the patient is seen at the request of Dr. Gonzales at [facility] for consultation regarding second opinion for placental hemorrhage; EDC 08/15/2023 * FC MA [id number] [address] [place] Work Phone: evaluation + Plan note No data available for this section [facility] [place] Evaluation note* Diagnosis Dichorionic diamniotic twin in third trimester- Primary Poor growth affecting management of mother in third trimester, fetus 1 of multiple gestation [facility] this encounter [facility] Diagnosis 34 weeks gestation of - Primary Poor growth affecting management of mother in third trimester, fetus 1 of multiple gestation Dichorionic diamniotic twin in third trimester Anxiety during documented in this encounter [facility] Narrative - Reported* Type Description Date Medical History Anxiety Medical History GERD (gastroesophageal reflux di sease) Medical History bipolar Surgical History LAPAROSCOPY-times 2 2013 Hospitalization [facility] & [facility] - ultrasound & CT scans 12/2022 [facility] Other Hospital Discharge instructions No data available for this section General Surgery [place] InstructionsNot on filedocumented in this encounter [facility] System[facility]ructionsNot on filedocumented in this encounter [facility] No data available for this [...] US MFM with or without consult Amadeo Heaton MD [address] [place] [address] [facility] Maternal Med [address] [place] [address] Referral ID Status Reason Start Date Expiration Date V isits Requested Visits Authorized [id number] Pending Review 07/04/2023 07/03/2024 1 1 Additional Source Comments INFORMATION SOURCE (unrecogn ized section and content) DATE CREATED AUTHOR 02/04/2020 [facility] DATE CREATED AUTHOR AUTHOR'S ORGANIZ ATION 08/16/2022 [facility] DATE CREATED AUTHOR AUTHOR'S ORGANIZ ATION 12/07/[address] [facility] DATE CREATED AUTHOR AUTHOR'S ORGANIZ ATION 04/06/2023 [facility] DATE CREATED AUTHOR AUTHOR'S ORGANIZ ATION 07/10/2023 [facility] DATE CREATED AUTHOR AUTHOR'S ORGANIZ ATION 07/12/2023 [facility] Source Comments (unrecognize d section and content) In the event this informatio n is protected by the Federal Confidentiality of Alcohol and Drug Abuse Patient Records regulations: The Federal rules restrict any use of the information to criminally investigate or prosecute any alcohol or drug abuse patient.[facility] Patient Care team informatio n (unrecognized section and content) [employer] Leader Relationship Specialty Start Date End Date No Pcp, [place] [address] PCP - General Family Medicine 10/25/20 [employer] Leader Relationship Specialty Start Date End Date No Pcp, [place] [address] PCP - General Family Medicine 10/25/20 REASON [...] BE BASED ON THE PRIMARY CLINICAL RECORDS. [employer] provides no warranty or guarantee of the accuracy or completeness of information in this document.
[2023-07-12 09:08] VITALS: BP 124/59; PULSE 94
--- OUTSIDE RECORDS SUMMARY | 2023-07-31 09:13 | XMS_ITS | CCD ---
Author Name Unknown Address [address] [place] [address] Organization [facility] Care Team Providers Care Donor Relations Coordinator Name Role Phone NO FAMILY, PHYSICIAN Primary Care Provider Nela Givens Primary Care Provider [phone] SUKI CONDE Primary Care Physician AMAYA PROVIDER, [...] Unavailable EUSEBIO ., MARYURI Attending Unavailable DEE .NETSOR Consulting Unavailable EUSEBIO ., MARYURI Consulting Unavailable RASTENEELIMA, MISTI Consulting Unavailable EUSEBIO Erwin, MARYURI Admitting Unavailable [...] Unavailable BERTRAND, DR Courtney Thapa Consulting Unavailable LILIAN ., DR GATICA Attending Unavailable LILIAN ., DR GATICA Admitting Unavailable CLIFTON HILL, DR ANGIE Arce Consulting Unavailable NADERER, DR SUKI Kong Primary Care Unavailable LILIAN ., DR GATICA Consulting Unavailable BENEDICT, DR WATSON Consulting Unavailable BENEDICT, DR WATSON Admitting Unavailable BENEDICT, DR WATSON Attending Unavailable NADERER, DR SUKI Kong Primary Care Unavailable ANGIE LO Consulting Unavailable LILIAN ., DR GATICA Attending Unavailable LILIAN ., DR GATICA Consulting Unavailable LILIAN ., DR GATICA Admitting Unavailable NADERER, DR SUKI Kong Primary Care Unavailable LILIAN ., DR GATICA Attending Unavailable LILIAN ., DR GATICA Consulting Unavailable LILIAN ., DR GATICA Admitting Unavailable NADERER, DR SUKI Kong Primary Care Unavailable LILIAN ., DR GATICA Attending Unavailable LILIAN ., DR GATICA Admitting Unavailable WEST, DR ANGIE Arce Consulting Unavailable NADERER, DR SUKI Kong Primary Care Unavailable LILIAN ., DR GATICA Consulting Unavailable NADERER, DR [...] SCHWARZ Admitting Unavailable SAMREEN SCHWARZ Attending Unavailable LILIAN ., DR GATICA Consulting Unavailable LILIAN ., DR GATICA Admitting Unavailable NADERER, DR SUKI Kong Primary Care Unavailable LILIAN ., DR GATICA Attending Unavailable LILIAN ., DR GATICA Consulting Unavailable LILIAN ., DR GATICA Admkatja Unavailable NADERER, DR SUKI Kong Primary Care Unavailable LILIAN ., DR GATICA Attending Unavailable SHELLY SHABAZZ Consulting Unavailable ANAI CHANG Consulting Unavailable HARMAN ADAMS Admitting Unavailable HARMAN ADAMS Attending Unavailable HARMAN ADAMS Consulting Unavailable NADERER, DR SUKI Kong Primary Care Unavailable LILIAN ., DR GATICA Consulting Unavailable LILIAN ., DR GATICA Admitting Unavailable LILIAN ., DR GATICA Attending Unavailable NADERER, DR SUKI Kong Primary Care Unavailable AMAYA, DR SUKI Kong Referring Unavailable AMAYA, DR SUKI Kong Admitting Unavailable AMAYA, DR SUKI Kong Attending Unavailable CLIFTON HILL, DR ANGIE Arce Consulting Unavailable REQUEST, DR NONE LISTED Primary Care Unavaila caitie CONDE, DR SUKI Kong Consulting Unavailable Filippo Larson Unavailable Unknown, Referring Provider Unavailable Unav ailable Ramakrishna Schwarz Attending Unavailable UNKNOWN, PCP Primary Care Unavailable No Pcp, No Pcp Primary Care Provider UnavailAMADEO Osborn Attending Unavailable LILIAN, CECIL R Referring Unavailable NO PCP, NO PCP Primary Care Unavailable LYLY SMITH Attending Unavailable LILIAN, CECIL R Referring Unavailable NO PCP, NO PCP Primary Care Unavailable LILIAN, CECIL R Referring Unavailable NO PCP, NO PCP Primary Care Unavailable LILIAN, CECIL Attending Unavailable LILIAN, CECIL Attending Unavailable LILIAN, CECIL Attending Unavailable LILIAN, CECIL Attending Unavailable NESTOR PRICE Attending Unavailable DEE, NESTOR Attending Unavailable Lilian, Cecil Attending Provider Lilian, Cecil Attending Unavailable Lilian, Cecil Admitting Unavailable Unavailable Unavailable Unavailable Allergies Allergy Classification Reported Allergen(s) Allergy Type Date of Onset Reaction(s) Facility (1 source) No Known Medication Allergies; Translations: [No Known Medication Allergies] Propensity to adverse reactions (disorder) [facility] Rep[facility] Medications Current Medications Medication Drug [...] 07/17/22 Status: Ordered take 2 tablets by [facility] once daily at bedtime Elavil 25 [...] perineal pain] Onset: 2 Episodic Anxiety disorders (4 sources) Anxiety; Translations: [Anxiety disorder, unspecified] Onset: [...] 2 Episodic Other aftercare (1 source) Other half-way (current) drug therapy; Translations: [OTH INTERVENTIONAL CARDIOLOGIST CURRENT DRUG THERAPY] Onset: 3 Episodic Other [...] object(s), not elsewhere classified, initial encounter; Translations: [[facility] OTH SHRP OB NOT ELSW CLASS [...] Test Name Value Interpretation Reference Range Facility [facility] 07-22-2023 L Specimen: [id number] Received: 07/23/23 Status: SALVADOR Ortiz Num: [id number] Spec Type: Surgical Subm Dr: Cecil Johnson Tissues: A Placenta - 3rd Trimester (Greater than 28 weeks) (PLACENTA A) B Placenta - 3rd Trimester (Greater than 28 weeks) (PLACENTA B) Procedures: HE/7, Gross/Micro L5/2 Age/ Patient Sex Location Account Attending Physician Shanon Louise 23/ LABELL [id number] Cecil Johnson SPEC NUM: [id number] RECD: 07/23/23 STATUS: SALVADOR ORTIZ NUM: [id number] MORAIMA: 07/22/[address]: Cecil Johnson ENTERED: 07/23/[address] [facility] [address]: Tristan,Lab SPEC TYPE: Surgical DEPT: SHANNAN VYAS ORDERED: HE/7, Gross/Micro L5/2 ORDERED: HE/7, Gross/Micro L5/2 Pathological Diagnosis A and B, Placenta baby A, and placenta baby B, removal by section delivery: - Consistent with mature third trimester diamniotic and dichorionic twin placentas, appropriate for gestational age, both also with three-vessel cord - No evidence of acute chorioamnionitis, villitis, or funisitis in both placentas - Incidental mild effect of meconium staining in placenta A - Incidental 1 large pseudocyst in placenta B, due to liquefaction of the Jeromy jelly - No other significant change except incidental focal mild calcifications, including occasional basal calcifications, in both placentas Clinical Information Twin gestation, section Gross Description A. Received in formalin labeled with the patient's name, date of and placenta baby A is a 23 x 13 cm placental disc which following fixation and after removal of the membranes and umbilical cord is 562 g. The membranes are glistening jackson and translucent. The surface is glistening blue-canela. The attached 35 cm long by 1.8 cm average diameter segment of three-vessel umbilical cord is marked with a single cord clamp Specimen: [id number] Received: 07/23/23 Status: SALVADOR Ortiz Num: [id number] Spec Type: Surgical Subm Dr: Cecil Johnson Tissues: A Placenta - 3rd Trimester (Greater than 28 weeks) (PLACENTA A) B Placenta - 3rd Trimester (Greater than 28 weeks) (PLACENTA B) Procedures: HE/7, Gross/Micro L5/2 Patient: Shanon Louise [id number] (Continued) Specimen: [id number] Received: 07/23/23 (Continued) Gross Description (Continued) Signed (signatur e on file) Juan Shea MD 07/25/23 1826 Specimen: [id number] Received: 07/23/23 Status: SALVADOR Ortiz Num: [id number] Spec Type: Surgical Subm Dr: Cecil Johnson Tissues: A Placenta - 3rd Trimester (Greater than 28 weeks) (PLACENTA A) B Placenta - 3rd Trimester (Greater than 28 weeks) (PLACENTA B) Procedures: RADHAIra Franklin/Hieu L5/2 Patient: Shanon Louise [id number] (Continued) Specimen: [id number] Received: 07/23/23-1230 (Continued) Gross Description (Continued) and is eccentrically inserted 2 cm from the edge of the placental disc. The maternal surface is multifocally disrupted and is questionably complete. Sectioning demonstrates soft red-brown unremarkable parenchyma averaging 2.5 cm in thickness. Manager Mba sections are submitted in 3 cassettes as follows: A1 - membranes, umbilical cord, and decidual basalis A2 - Central placenta, full-thickness A3 - Peripheral placenta, full-thickness B. Received in formalin labeled with the patient's name, date of and placenta baby B is a 19 x 13.5 cm placental disc which following fixation and after removal of the membranes and umbilical cord is 436 g. The membranes are glistening, jackson, and translucent. The amnion is received torn from the majority of the surface, which is otherwise glistening blue canela. The attached 13 cm long by 1.5 cm average diameter segment of three-vessel umbilical cord is eccentrically inserted 1.5 cm from the edge of the placental disc, is marked with 2 cord clamps, and demonstrates a 2.5 cm diameter thin-walled cyst adjacent to the clamps. Sectioning through the cyst demonstrates clear viscous contents. The maternal surface is disrupted, but appears complete. Sectioning demonstrates soft red-brown unremarkable parenchyma 2.5 cm in average thickness. Manager Mba sections are submitted in 4 cassettes as follows: B1 - Umbilical cord with cyst B2 - membranes and decidua basalis B3 - Central placenta, ful (more content not included)... Normal [facility] Blood Pressure Cuff Sizeon 0 03-28-2023 Fall risk assessment a) No falls within the last year SR-[id number] [address] [place] Work Phone: Tobacco use status CPHS a) Yes M G-OBGYN-MAC [address] [place] Work Phone: Blood Pressure Cuff Size Adult ND-[id number] [address] [place] Work Phone: Blood Pressure Cuff Size Yes PF-AGOPL-LGC [address] [place] Work Phone: No Panel Informationon 03-28 Normal LE-[id number]-TJD 1200 [place] Work Phone: OB Completed scan [...] gestation - rr cfDNA - Referred from [place] because of subchorionic hematomas A targeted anatomic [...] previously been seen by Dr. Gonzales in [place]. Twins are doing well, their growth is [...] EFW (oz) 12 oz EFW by: Hadlock ([id number]-FL) Extended Timber Hewer 5.8 mm CM 3.9 mm 16% Nicolaides [...] mm 61 (more content not included)... Normal [facility] AMYLASEon 10-28-2022 Amylase [Catalytic activity/Vol] 35 U/L Normal 25-115 [facility] Comment on above: Performed By: #### C NEAL LIPA, NESTOR #### [facility] [address] [place] [address] Dr. Joe Shea CBC AUTO DIFFon 10-28-2022 BASO # 0.1 103/ul Normal 0.0-0.1 [facility] Comment on above: Performed By: #### C MP LIPA, NESTOR #### [facility] [address] [place] [address] Dr. Joe Shea Basophils/100 WBC (Bld) 0.4 % Normal 0.2-2.0 [facility] Comment on above: Performed By: #### C MP LIPA, NESTOR #### [facility] [address] [place] [address] Dr. Joe Shea EO # 0.1 103/ul Normal 0.0-0.7 [facility] Comment on above: Performed By: #### C MP LIPA, NESTOR #### [facility] [address] [place] [address] Dr. Joe Shea Eosinophils/100 WBC (Bld) 0.8 % Critically low 0.9-7. 0 [facility] Comment on above: Performed By: #### C MP LIPA, NESTOR #### [facility] [address] [place] [address] Dr. Joe Shea Erythrocyte distribution width (RBC) [Ratio] 13.2 % Normal 11.0-15.0 [facility] Comment on above: Performed By: #### C MP, LIPA, NESTOR #### [facility] [address] [place] [address] Dr. Joe Shea Hematocrit (Bld) [Volume fraction] 37.2 % Normal 36.0-48.0 [facility] Comment on above: Performed By: #### C MP, LIPA, NESTOR #### [facility] [address] [place] [address] Dr. Joe Shea Hemoglobin (Bld) [Mass/Vol] 12.0 g/dL Normal 12.0-16.0 [facility] Comment on above: Performed By: #### C MP LIPA, NESTOR #### [facility] [address] [place] [address] Dr. Joe Shea IG # 0.03 10e3/ul Normal 0.00-0.03 [facility] Comment on above: Performed By: #### C MP LIPA, NESTOR #### [facility] [address] [place] [address] Dr. Joe Shea IG % 0.2 % Normal 0.0-0.5 [facility] Comment on above: Performed By: #### C NEAL LIPA, NESTOR #### [facility] [address] [place] [address] Dr. Joe Shea LYMPH # 1.9 103/ul Normal 1.2-3.8 [facility] Comment on above: Performed By: #### C NEAL LIPA, NESTOR #### [facility] [address] [place] [address] Dr. Joe Shea Lymphocytes/100 WBC (Bld) 15.2 % Critically low 20.5-6 0.0 [facility] Comment on above: Performed By: #### C NEAL LIPA, NESTOR #### [facility] [address] [place] [address] Dr. Joe Shea MANUAL DIFF REQ NO Normal [facility] Comment on above: Performed By: #### C NEAL LIPA, NESTOR #### [facility] [address] [place] [address] Dr. Joe Shea MCH (RBC) [Entitic mass] 28.4 pg Normal 26.7-34.0 [facility] Comment on above: Performed By: #### C MP LIPA, NESTOR #### [facility] [address] [place] [address] Dr. Joe Shea MCHC (RBC) [Mass/Vol] 32.3 g/dL Normal 29.9-35.2 [facility] Comment on above: Performed By: #### C MP LIPA, NESTOR #### [facility] [address] [place] [address] Dr. Joe Shea MCV (RBC) [Entitic vol] 87.9 fL Normal 81.0-99.0 [facility] Comment on above: Performed By: #### C MP LIPA, NESTOR #### [facility] [address] [place] [address] Dr. Joe Shea MONO # 0.9 103/ul Critically high 0.3-0.8 [facility] Comment on above: Performed By: #### C MP, LIPA, NESTOR #### [facility] [address] [place] [address] Dr. Joe Shea Monocytes/100 WBC (Bld) 7.1 % Normal 1.7-12.0 [facility] Comment on above: Performed By: #### C MP, LIPA, NESTOR #### [facility] [address] [place] [address] Dr. Joe Shea NEUT # 9.5 103/ul Critically high 1.4-6.5 [facility] Comment on above: Performed By: #### C MP, LIPA, NESTOR #### [facility] [address] [place] [address] Dr. Joe Shea Neutrophils/100 WBC (Bld) 76.3 % Critically high 43.0- 75.0 [facility] Comment on above: Performed By: #### C MP, LIPA, NESTOR #### [facility] [address] [place] [address] Dr. Joe Shea Platelet mean volume (Bld) [Entitic vol] 10.8 fL Normal 9.5-13.5 [facility] Comment on above: Performed By: #### C MP, LIPA, NESTOR #### [facility] [address] [place] [address] Dr. Joe Shea PLT 283 103/ul Normal 150-450 [facility] Comment on above: Performed By: #### C MP, LIPA, NESTOR #### [facility] [address] [place] [address] Dr. Joe Shea RBC 4.23 106/ul Normal 4.20-5.40 [facility] Comment on above: Performed By: #### C MP LIPA, NESTOR #### [facility] [address] [place], [place] [address] Dr. Joe Shea WBC 12.5 103/ul Critically high 4.0-11.0 [facility] Comment on above: Performed By: #### C NEAL LIPA, NESTOR #### [facility] [address] [place], [place] [address] ABD/PELV W CONon [...] MISTI BREWER Date: 2022-10-28 18:31 Normal [facility] ER URINE PROFILEon 3 Bilirubin Ql (U) Negative Normal NEGATIVE [facility] Comment on above: Performed By: #### L BCLH #### [facility] [address] [place] [address] Dr. Joe Shea Clarity (U) CLEAR Normal CLEAR [facility] Comment on above: Performed By: #### L BCLH #### [facility] [address] [place] [address] Dr. Joe Shea Color (U) LT. YELLOW Normal YELLOW [facility] Comment on above: Performed By: #### L BCLH #### [facility] [address] [place] [address] Dr. Joe Shea ERUAHD A micrscopic examination will be performed if indicated. Normal [facility] Comment on above: Performed By: #### L BCLH #### [facility] [address] [place] [address] Dr. Joe Shea Glucose Ql (U) Negative Normal NEGATIVE [facility] Comment on above: Performed By: #### L BCLH #### [facility] [address] [place] [address] Dr. Joe Shea Hemoglobin Ql (U) Negative Normal NEGATIVE [facility] Comment on above: Performed By: #### L BCLH #### [facility] [address] [place] [address] Dr. Joe Shea Ketones Ql (U) Negative Normal NEGATIVE [facility] Comment on above: Performed By: #### L BCLH #### [facility] [address] [place] [address] Dr. Joe Shea LEUKOCYTES TRACE Abnormal NEGATIVE [facility] Comment on above: Performed By: #### L BCLH #### [facility] [address] [place] [address] Dr. Joe Shea Nitrite Ql (U) Negative Normal NEGATIVE [facility] Comment on above: Performed By: #### L BCLH #### [facility] [address] [place] [address] Dr. Joe Shea pH (U) 8.0 [pH] Normal 5-9 [facility] Comment on above: Performed By: #### L BCLH #### [facility] [address] [place] [address] Dr. Joe Shea SPEC GRAVITY 1.015 Normal 1.005-<=1.02 5 [facility] Comment on above: Performed By: #### L BCL #### [facility] [address] [place] [address] Dr. Joe Shea UA PROTEIN Negative Normal NEGATIVE/ TRACE [facility] Comment on above: Performed By: #### L BCL #### [facility] [address] [place] [address] Dr. Joe Shea UR MICRO IND INDICATED Normal [facility] Comment on above: Performed By: #### L BCL #### [facility] [address] [place] [address] Dr. Joe Shea Urobilinogen Qn (U) 2.0 {Pascual'U}/dL Abnormal 0.2 - 1. 0 [facility] Comment on above: Performed By: #### L [facility] #### [facility] [address] [place] [address] Dr. Joe Shea LIPASEon 10-28-2022 Lipase [Catalytic activity/Vol] 93.0 U/L Normal 73.0-393.0 [facility] Comment on above: Performed By: #### C CARLYN DE JESUS NESTOR #### [facility] [address] [place] [address] Dr. Joe Shea URon 10-28-2022 , QUAL Negative Normal NEGATIVE [facility] Comment on above: Performed By: #### L [facility] #### [facility] [address] [place] [address] Dr. Joe Shea PROF 14(COMP METB)on 023 Albumin [Mass/Vol] 4.1 g/dL Normal 3.4-5.0 [facility] Comment on above: Performed By: #### C CARLYN DE JESUS NESTOR #### [facility] [address] [place] [address] Dr. Joe Shea Albumin/Globulin [Mass ratio] 1.2 {ratio} Normal [facility] Comment on above: Performed By: #### C NEAL LIPLuann NESTOR #### [facility] [address] [place] [address] Dr. Joe Shea ALP [Catalytic activity/Vol] 60 U/L Normal 46-116 [facility] Comment on above: Performed By: #### C CARLYN DE JESUS, NESTOR #### [facility] [address] [place] [address] Dr. Joe Shea ALT [Catalytic activity/Vol] 22 U/L Normal 14-59 [facility] Comment on above: Performed By: #### C HUGO DE JESUSA, NESTOR #### [facility] [address] [place] [address] Dr. Joe Shea Anion gap [Moles/Vol] 10.2 mmol/L Normal [facility] Comment on above: Performed By: #### C CARLYN DE JESUS, NESTOR #### [facility] [address] [place] [address] Dr. Joe Shea AST [Catalytic activity/Vol] 14 U/L Critically low 15-37 [facility] Comment on above: Performed By: #### C CARLYN DE JESUS, NESTOR #### [facility] [address] [place] [address] Dr. Joe Shea Bilirubin [Mass/Vol] 0.5 mg/dL Normal 0.2-1.0 [facility] Comment on above: Performed By: #### C CARLYN DE JESUS, NSETOR #### [facility] [address] [place] [address] Dr. Joe Shea Calcium [Mass/Vol] 8.9 mg/dL Normal 8.5-10.1 [facility] Comment on above: Performed By: #### C HUGO DE JESUSA, NESTOR #### [facility] [address] [place] [address] Dr. Joe Shea Chloride [Moles/Vol] 103 mmol/L Normal 98-107 [facility] Comment on above: Performed By: #### C HUGO DE JESUSA, NESTOR #### [facility] [address] [place] [address] Dr. Joe Shea CO2 [Moles/Vol] 28.1 mmol/L Normal 21.0-32.0 [facility] Comment on above: Performed By: #### C CARLYN DE JESUS, NESTOR #### [facility] [address] [place] [address] [address] Joe Shea Creatinine [Mass/Vol] 0.77 mg/dL Normal 0.55-1.02 [facility] Comment on above: Performed By: #### C MP, LIPA, NESTOR #### [facility] [address] [place] [address] [address] Joe Shea EGFR-AF OMANI >60 Normal >=60 [facility] Comment on above: Performed By: #### C MP, LIPA, NESTOR #### [facility] [address] [place] [address] [address] Joe Shea EGFR-NON AF OMANI >60 Normal >=60 [facility] Comment on above: Performed By: #### C MP, LIPA, NESTOR #### [facility] [address] [place] [address] Dr. Joe Shea Globulin (S) [Mass/Vol] 3.5 g/dL Normal [facility] Comment on above: Performed By: #### C MP, LIPA, NESTOR #### [facility] [address] [place] [address] [address] Joe Shea Glucose [Mass/Vol] 85 mg/dL Normal 74-106 [facility] Comment on above: Performed By: #### C MP, LIPA, NESTOR #### [facility] [address] [place] [address] [address] Joe Shea Potassium [Moles/Vol] 3.3 mmol/L Critically low 3.5-5.1 [facility] Comment on above: Performed By: #### C MP, LIPA, NESTOR #### [facility] [address] [place] [address] [address] Joe Shea Protein [Mass/Vol] 7.6 g/dL Normal 6.4-8.2 [facility] Comment on above: Performed By: #### C MP, LIPA, NESTOR #### [facility] [address] [place] [address] [address] Joe Shea Sodium [Moles/Vol] 138 mmol/L Normal 136-145 [facility] Comment on above: Performed By: #### C CARLYN DE JESUS AMY #### [facility] [address] [place] [address] [address] Joe Shea Urea nitrogen [Mass/Vol] 6.0 mg/dL Critically low 7.0-18. 0 [facility] Comment on above: Performed By: #### C CARLYN DE JESUS AMY #### [facility] [address] [place] [address] Dr. Joe Shea Urea nitrogen/Creatinine [Mass ratio] 7.8 mg/mg Normal [facility] Comment on above: Performed By: #### C CARLYN DE JESUS AMY #### [facility] [address] [place] [address] Dr. Joe Shea URINE MICROSCOPIC ONLYon BACTERIA NONE SEEN Normal NONE SEEN [facility] Comment on above: Performed By: #### L BCL #### [facility] [address] [place] [address] Dr. Joe Shea Bacteria identified Cx Nom (U) NOT INDICATED Normal [facility] Comment on above: Performed By: #### L BCL #### [facility] [address] [place] [address] Dr. Joe Shea CAST NONE SEEN Normal NONE SEEN [facility] Comment on above: Performed By: #### L BCL #### [facility] [address] [place] [address] Dr. Joe Shea Crystals LM Nom (Urine sed) NONE SEEN Normal NONE SEEN [facility] Comment on above: Performed By: #### L BCL #### [facility] [address] [place] [address] Dr. Joe Shea Epithelial cells LM Ql (Urine sed) FEW Abnormal NONE SEEN /RARE [facility] Comment on above: Performed By: #### L BCLH #### [facility] [address] [place] [address] Dr. Joe Shea MUCOUS NONE SEEN Normal NONE SEEN [facility] Comment on above: Performed By: #### L BCLH #### [facility] [address] [place] [address] Dr. Joe Shea RBC NONE SEEN Abnormal 0-2 [facility] Comment on above: Performed By: #### L BCLH #### [facility] [address] [address] [address] Joe Shea WBC 0-2 Abnormal NONE SEEN [facility] Comment on above: Performed By: #### L BCLH #### [facility] [address] [address] [address] Joe Shea LACTOFERRIN FECAL QUANTon Lactoferrin, Fecal, Quant. <1.00 Normal 0.00-7.24 [facility] Comment on above: Result Comment: [...] (IBS). Performed By: #### D TRESA #### [facility] [address] [place] [address] Dr. Joe Shea CALPROTECTIN, FECALon 2022 Calprotectin, Fecal 31 ug/g Normal 0-120 [facility] Comment on above: Result Comment: Conc entration Interpretation Follow-Up <16 - 50 ug/g Normal None >50 -120 ug/g Borderline Re-evaluate in 4-6 weeks >120 ug/g Abnormal Repeat as clinically indicated Performed By: #### C MP, LIPA, NESTOR #### [facility] [address] [place] [address] Dr. Joe Shea BOWEL DISORDERS EVALUATION R ULE-OUT CASCon 09-25-2022 Antigliadin 8 units Normal 0-19 [facility] Comment on above: Result Comment: Nega tive 0 - 19 Weak Positive 20 - 30 Moderate to Strong Positive >30 . Performed By: #### C BC #### [facility] [address] [place] [address] Dr. Joe Shea Atypical pANCA Negative Normal Negative [facility] Comment on above: Performed By: #### C BC #### [facility] [address] [address] [address] Joe Shea Note: [place] continues Normal [facility] Comment on above: Performed By: #### C BC #### [facility] [address] [place] [address] Dr. Joe Shea Note: Comment Normal [facility] Comment on above: Result Comment: Sugg estive of irritable bowel syndrome (IBS). Careful evaluation of the patient's history, physical examination, and application of [place] III diagnostic criteria may help to rule in or rule out the diagnosis of IBS. Subsequent testing for Fecal Calprotectin (551950) may be recommended. If IBD is strongly suspected, subsequent testing with the Crohn's Disease Prognostic Profile (008904) that includes anti- glycan antibodies AMCA, ALCA, ACCA, and Zulema may aid in differential diagnosis. Performed By: #### C BC #### [facility] [address] [place] [address] Dr. Joe Shea Saccharomyces Cer. IgG <20.0 Normal 0.0-24.9 [facility] Comment on above: Result Comment: Nega tive <20.0 Equivocal 20.1 - 24.9 Positive >or= 25.0 Performed By: #### C BC #### [facility] [address] [place] [address] Dr. Joe Shea tTG/DGP SCR Negative Normal Negative [facility] Comment on above: Result Comment: Ef fective September 21, 2022 this profile will be made non-orderable due to non-availability of reagents for tTG/DGP Combo. No replacement number is available at this time. For further information, please contact your local [facility] Manager Mba. Performed By: #### C BC #### [facility] [address] [place] [address] Dr. Joe Shea CBC AUTO DIFFon 09-19-2022 BASO # 0.1 103/ul Normal 0.0-0.1 [facility] Comment on above: Performed By: #### D HEASUL #### [facility] [address] [place] [address] Dr. Joe Shea Basophils/100 WBC (Bld) 0.9 % Normal 0.2-2.0 [facility] Comment on above: Performed By: #### Althea GTZ #### [facility] [address] [place] [address] Dr. Joe Shea EO # 0.2 103/ul Normal 0.0-0.7 [facility] Comment on above: Performed By: #### Althea GTZ #### [facility] [address] [place] [address] Dr. Joe Shea Eosinophils/100 WBC (Bld) 2.4 % Normal 0.9-7.0 [facility] Comment on above: Performed By: #### Althea GTZ #### [facility] [address] [place] [address] Dr. Joe Shea Erythrocyte distribution width (RBC) [Ratio] 13.2 % Normal 11.0-15.0 [facility] Comment on above: Performed By: #### Althea GTZ #### [facility] [address] [place] [address] Dr. Joe Shea Hematocrit (Bld) [Volume fraction] 38.3 % Normal 36.0-48.0 [facility] Comment on above: Performed By: #### Althea GTZ #### [facility] [address] [place] [address] Dr. Joe Shea Hemoglobin (Bld) [Mass/Vol] 12.3 g/dL Normal 12.0-16.0 [facility] Comment on above: Performed By: #### Althea GTZ #### [facility] [address] [place] [address] Dr. Joe Shea IG # 0.02 10e3/ul Normal 0.00-0.03 [facility] Comment on above: Performed By: #### Althea GTZ #### [facility] [address] [place] [address] Dr. Joe Shea IG % 0.3 % Normal 0.0-0.5 [facility] Comment on above: Performed By: #### Althea GTZ #### [facility] [address] [address] [address] Joe Shea LYMPH # 1.7 103/ul Normal 1.2-3.8 [facility] Comment on above: Performed By: #### Althea GTZ #### [facility] [address] [address] [address] Joe Shea Lymphocytes/100 WBC (Bld) 24.6 % Normal 20.5-60.0 [facility] Comment on above: Performed By: #### Althea GTZ #### [facility] [address] [address] [address] Joe Shea MANUAL DIFF REQ NO Normal [facility] Comment on above: Performed By: #### Althea GTZ #### [facility] [address] [address] [address] Joe Shea MCH (RBC) [Entitic mass] 28.1 pg Normal 26.7-34.0 [facility] Comment on above: Performed By: #### Althea GTZ #### [facility] [address] [address] [address] Joe Shea MCHC (RBC) [Mass/Vol] 32.1 g/dL Normal 29.9-35.2 [facility] Comment on above: Performed By: #### Althea GTZ #### [facility] [address] [address] [address] Joe Shea MCV (RBC) [Entitic vol] 87.6 fL Normal 81.0-99.0 [facility] Comment on above: Performed By: #### Althea GTZ #### [facility] [address] [address] [address] oJe Shea MONO # 0.4 103/ul Normal 0.3-0.8 [facility] Comment on above: Performed By: #### Althea GTZ #### [facility] [address] [address] [address] Joe Shea Monocytes/100 WBC (Bld) 5.5 % Normal 1.7-12.0 [facility] Comment on above: Performed By: #### Althea GTZ #### [facility] [address] [address] [address] Joe Shea NEUT # 4.7 103/ul Normal 1.4-6.5 [facility] Comment on above: Performed By: #### Althea GTZ #### [facility] [address] [address] [address] Joe Shea Neutrophils/100 WBC (Bld) 66.3 % Normal 43.0-75.0 [facility] Comment on above: Performed By: #### Althea GTZ #### [facility] [address] [address] [address] Joe Shea Platelet mean volume (Bld) [Entitic vol] 11.4 fL Normal 9.5-13.5 [facility] Comment on above: Performed By: #### Althea GTZ #### [facility] [address] [address] [address] Joe Shea PLT 275 103/ul Normal 150-450 [facility] Comment on above: Performed By: #### Althea GTZ #### [facility] [address] [address] [address] Joe Shea RBC 4.37 106/ul Normal 4.20-5.40 [facility] Comment on above: Performed By: #### Althea GTZ #### [facility] [address] [address] [address] Joe Shea WBC 7.0 103/ul Normal 4.0-11.0 [facility] Comment on above: Performed By: #### Althea GTZ #### [facility] [address] [address] [address] Joe Shea PROF 14(COMP METB)on 023 Albumin [Mass/Vol] 4.4 g/dL Normal 3.4-5.0 [facility] Comment on above: Performed By: #### L [facility] #### [facility] [address] [place] [address] Dr. Joe Shea Albumin/Globulin [Mass ratio] 1.4 {ratio} Normal [facility] Comment on above: Performed By: #### L BCLH #### [facility] [address] [address] [address] Joe Shea ALP [Catalytic activity/Vol] 51 U/L Normal 46-116 [facility] Comment on above: Performed By: #### L BCLH #### [facility] [address] [address] [address] Joe Shea ALT [Catalytic activity/Vol] 20 U/L Normal 14-59 [facility] Comment on above: Performed By: #### L BCLH #### [facility] [address] [address] [address] Joe Shea Anion gap [Moles/Vol] 11.7 mmol/L Normal [facility] Comment on above: Performed By: #### L BCLH #### [facility] [address] [address] [address] Joe Shea AST [Catalytic activity/Vol] 17 U/L Normal 15-37 [facility] Comment on above: Performed By: #### L BCLH #### [facility] [address] [address] [address] Joe Shea Bilirubin [Mass/Vol] 0.4 mg/dL Normal 0.2-1.0 [facility] Comment on above: Performed By: #### L BCLH #### [facility] [address] [address] [address] Joe Shea Calcium [Mass/Vol] 9.3 mg/dL Normal 8.5-10.1 [facility] Comment on above: Performed By: #### L BCLH #### [facility] [address] [address] [address] Joe Shea Chloride [Moles/Vol] 104 mmol/L Normal 98-107 [facility] Comment on above: Performed By: #### L BCLH #### [facility] [address] [address] [address] Joe Shea CO2 [Moles/Vol] 28.5 mmol/L Normal 21.0-32.0 [facility] Comment on above: Performed By: #### L BCLH #### [facility] [address] [address] [address] Joe Shea Creatinine [Mass/Vol] 0.55 mg/dL Normal 0.55-1.02 [facility] Comment on above: Performed By: #### L BCLH #### [facility] [address] [address] [address] Joe Shea EGFR-AF OMANI >60 Normal >=60 [facility] Comment on above: Performed By: #### L BCLH #### [facility] [address] [address] [address] Joe Shea EGFR-NON AF OMANI >60 Normal >=60 [facility] Comment on above: Performed By: #### L BCLH #### [facility] [address] [address] [address] Joe Shea Globulin (S) [Mass/Vol] 3.1 g/dL Normal [facility] Comment on above: Performed By: #### L BCLH #### [facility] [address] [address] [address] Joe Shea Glucose [Mass/Vol] 90 mg/dL Normal 74-106 [facility] Comment on above: Performed By: #### L BCLH #### [facility] [address] [address] [address] Joe Shea Potassium [Moles/Vol] 4.2 mmol/L Normal 3.5-5.1 [facility] Comment on above: Performed By: #### L BCLH #### [facility] [address] [address] [address] Joe Shea Protein [Mass/Vol] 7.5 g/dL Normal 6.4-8.2 [facility] Comment on above: Performed By: #### L BCLH #### [facility] [address] [address] [address] Joe Shea Sodium [Moles/Vol] 140 mmol/L Normal 136-145 [facility] Comment on above: Performed By: #### L BCLH #### [facility] [address] [place] [address] Dr. Joe Shea Urea nitrogen [Mass/Vol] 6.0 mg/dL Critically low 7.0-18. 0 [facility] Comment on above: Performed By: #### L BARRYH #### [facility] [address] [place] [address] Dr. Joe Shea Urea nitrogen/Creatinine [Mass ratio] 10.9 mg/mg Normal [facility] Comment on above: Performed By: #### L BARRYH #### [facility] [address] [place] [address] Dr. Joe Shea PROTIMEon 09-19-2022 INR Coag (PPP) [Relative time] 1.08 {INR} Normal [facility] Comment on above: Performed By: #### L DAIN #### [facility] [address] [place] [address] Dr. Joe Shea INR GUIDELINES SEE BELOW Normal [facility] Comment on above: Result Comment: CHICA RED INR: 2.0 - 3.0 CONDITIONS NOT LISTED BELOW 2.5 - 3.5 FOR PROSTHETIC HEART VALVE REPLACEMENT 2.5 - 3.5 RECURRENT THROMBOSIS Performed By: #### L BARRY #### [facility] [address] [place] [address] Dr. Joe Shea PT Coag (PPP) [Time] 11.4 s Normal 9.0-11.6 [facility] Comment on above: Performed By: #### L BARRY #### [facility] [address] [place] [address] Dr. Joe Shea TSHon 09-19-2022 TSH 0.957 uIU/mL Normal 0.358-3.740 [facility] Comment on above: Performed By: #### L BARRY #### [facility] [address] [place] [address] Dr. Joe Shea Pre-Certification Formon Pre-Certification Form [id number] 269#1.00CD:127 Normal [facility] Consent for Procedure/Surger yon 07-23-2022 Consent for Procedure/Surgery [id number]#[id number]:127 Normal [facility] Facesheeton 07-19-2022 Facesheet [id number] 71#1.00CD:127 Normal [facility] CBC AUTO DIFFon 07-06-2022 BASO # 0.1 103/ul Normal 0.0-0.1 [facility] Comment on above: Performed By: #### C MP, LIPA, NESTOR #### [facility] [address] [place] [address] Dr. Joe Shea Basophils/100 WBC (Bld) 0.8 % Normal 0.2-2.0 [facility] Comment on above: Performed By: #### C MP LIPA, NESTOR #### [facility] [address] [place] [address] Dr. Joe Shea EO # 0.4 103/ul Normal 0.0-0.7 [facility] Comment on above: Performed By: #### C MP LIPA, NESTOR #### [facility] [address] [place] [address] Dr. Joe Shea Eosinophils/100 WBC (Bld) 4.2 % Normal 0.9-7.0 [facility] Comment on above: Performed By: #### C MP LIPA, NESTOR #### [facility] [address] [place] [address] Dr. Joe Shea Erythrocyte distribution width (RBC) [Ratio] 13.5 % Normal 11.0-15.0 [facility] Comment on above: Performed By: #### C MP LIPA, NESTOR #### [facility] [address] [place] [address] Dr. Joe Shea Hematocrit (Bld) [Volume fraction] 36.8 % Normal 36.0-48.0 [facility] Comment on above: Performed By: #### C MP, LIPA, NESTOR #### [facility] [address] [place] [address] Dr. Joe Shea Hemoglobin (Bld) [Mass/Vol] 12.2 g/dL Normal 12.0-16.0 [facility] Comment on above: Performed By: #### C CARLYN DE JESUS, NESTOR #### [facility] [address] [place] [address] Dr. Joe Shea IG # 0.02 10e3/ul Normal 0.00-0.03 [facility] Comment on above: Performed By: #### C CARLYN DE JESUS, NESTOR #### [facility] [address] [place] [address] Dr. Joe Shea IG % 0.2 % Normal 0.0-0.5 [facility] Comment on above: Performed By: #### C CARLYN DE JESUS, NESTOR #### [facility] [address] [place] [address] Dr. Joe Shea LYMPH # 2.1 103/ul Normal 1.2-3.8 [facility] Comment on above: Performed By: #### C CARLYN DE JSEUS, NESTOR #### [facility] [address] [place] [address] Dr. Joe Shea Lymphocytes/100 WBC (Bld) 20.3 % Critically low 20.5-6 0.0 [facility] Comment on above: Performed By: #### C CARLYN DE JESUS NESTOR #### [facility] [address] [place] [address] Dr. Joe Shea MANUAL DIFF REQ NO Normal [facility] Comment on above: Performed By: #### C CARLYN DE JESUS, NESTOR #### [facility] [address] [place] [address] Dr. Joe Shea MCH (RBC) [Entitic mass] 28.6 pg Normal 26.7-34.0 [facility] Comment on above: Performed By: #### C CARLYN DE JESUS, NESTOR #### [facility] [address] [place] [address] Dr. Joe Shea MCHC (RBC) [Mass/Vol] 33.2 g/dL Normal 29.9-35.2 [facility] Comment on above: Performed By: #### C CARLYN DE JESUS NESTOR #### [facility] [address] [place] [address] Dr. Joe Shea MCV (RBC) [Entitic vol] 86.4 fL Normal 81.0-99.0 [facility] Comment on above: Performed By: #### C MP, LIPA, NESTOR #### [facility] [address] [place] [address] Dr. Joe Shea MONO # 0.6 103/ul Normal 0.3-0.8 [facility] Comment on above: Performed By: #### C MP, LIPA, NESTOR #### [facility] [address] [place] [address] Dr. Joe Shea Monocytes/100 WBC (Bld) 5.5 % Normal 1.7-12.0 [facility] Comment on above: Performed By: #### C MP, LIPA, NESTOR #### [facility] [address] [place] [address] Dr. Joe Shea NEUT # 7.2 103/ul Critically high 1.4-6.5 [facility] Comment on above: Performed By: #### C MP, LIPA, NESTOR #### [facility] [address] [place] [address] Dr. Joe Shea Neutrophils/100 WBC (Bld) 69.0 % Normal 43.0-75.0 [facility] Comment on above: Performed By: #### C MP, LIPA, NESTOR #### [facility] [address] [place] [address] Dr. Joe Shea Platelet mean volume (Bld) [Entitic vol] 10.8 fL Normal 9.5-13.5 [facility] Comment on above: Performed By: #### C MP, LIPA, NESTOR #### [facility] [address] [place] [address] Dr. Joe Shea PLT 316 103/ul Normal 150-450 [facility] Comment on above: Performed By: #### C MP, LIPA, NESTOR #### [facility] [address] [place] [address] Dr. Joe Shea RBC 4.26 106/ul Normal 4.20-5.40 [facility] Comment on above: Performed By: #### C CARLYN DE JESUS AMY #### [facility] [address] [place] [address] Dr. Joe Shea WBC 10.4 103/ul Normal 4.0-11.0 [facility] Comment on above: Performed By: #### C CARLYN DE JESUS AMY #### [facility] [address] [place] [address] Dr. Jeo Shea PREG QUANT HCGon 07-06-2022 HCG QUANT <1 Normal [facility] Comment on above: Performed By: #### C CARLYN DE JESUS AMY #### [facility] [address] [place] [address] Dr. Joe Shea HCG RANGE SEE BELOW Normal [facility] Comment on above: Result Comment: 5-50 0.2-1 WEEK 50-500 1-2 WEEKS 100-5,000 2-3 WEEKS 500-10,000 3-4 WEEKS 1,000-50,000 4-5 WEEKS 10,000-100,000 5-6 WEEKS 15,000-200,000 6-8 WEEKS 10,000-100,000 2-3 MONTHS Performed By: #### C CARLYN DE JESUS AMY #### [facility] [address] [place] [address] Dr. Joe Shea HEPATITIS C ANTIBODYon 06-26 Hep C Virus Ab <0.1 Normal 0.0-0.9 [facility] Comment on above: Result Comment: Nega [...] Hepatitis C Virus (HCV) RNA, Diagnosis, MEGAN (152736) and Hepatitis C Virus (HCV) Antibody with reflex to Quantitative Real-time PCR ([id number]). Performed By: #### L BCL #### [facility] [address] [place] [address] Dr. Joe Shea Covid-19 PCR (CVDTBH)on 05-31 SARS-CoV-2 (COVID-19) RNA MEGAN+probe Ql (Unsp spec) Not detected Normal NOT DETECTED [facility] Comment on above: Result Comment: This test is not yet approved or cleared by the [place] FDA. When there are no FDA-approved or cleared tests available, and other criteria are met, FDA can make tests available under an emergency access mechanism called an Emergency Use Authorization (EUA). The EUA for this test is supported by the Train [employer] of Health and Human Service's (HHS's) declaration [...] SARS-CoV-2. Performed By: #### C VDTBH #### [facility] [address] [place] [address] Dr. Joe Shea HEP B SURFACE ANTIGEN SCREEN on 06-12-2022 HBsAg Screen Negative Normal Negative [facility] Comment on above: Performed By: #### D HEASMARICRUZ #### [facility] [address] [address] [address] Joe Shea HIV 1 AND 2 WITH REFLEXon HIV Screen 4th Generation wRfx Non-Reactive Normal Non Reactive [facility] Comment on above: Result Comment: HIV Negative HIV-1/HIV-2 antibodies and HIV-1 p24 antigen were NOT detected. There is no laboratory evidence of HIV infection. Performed By: #### C CARLYN DE JESUS AMY #### [facility] [address] [place] [address] Dr. Joe Shea RPR QUANTon 06-12-2022 Rapid Plasma Reagin, Quant Non-Reactive Normal NonRea< 1:1 [facility] Comment on above: Result Comment: Plea se Note: This test does not meet current guidelines for screening and diagnosis of syphilis. This test is intended for following treatment response in patients being treated for syphilis infection. To screen for syphilis infection, a reflex cascade that includes both RPR and a treponema-specific assay should be utilized, such as Treponema pallidum (Syphilis) Screening [place] (942018) or Rapid Plasma Reagin (RPR) Test With Reflex to Quantitative RPR and Confirmatory Treponema pallidum Antibodies (337529). Performed By: #### C CARLYN DE JESUS AMY #### [facility] [address] [place], [place] [address] Dr. Joe Shea Physician Referralon 022 Physician Referral [id number] [id number] A3#1.00CD:127 Normal [facility] US PELVIS AND TRANSVAGon US PELVIS [...] ANGIE MEJIA Date: 2022-05-31 17:18 Normal [facility] AMYLASEon 05-23-2022 Amylase [Catalytic activity/Vol] 24 U/L Critically low 25-115 [facility] Comment on above: Performed By: #### C CARLYN DE JESUS AMY #### [facility] [address] [place] [address] [address] [address] Joe Shea CBC AUTO DIFFon 05-23-2022 Eosinophils/100 WBC (Bld) 1.5 % Normal 0.9-7.0 [facility] Comment on above: Performed By: #### L BCL #### [facility] [address] [place] [address] Dr. Joe Shea Erythrocyte distribution width (RBC) [Ratio] 13.5 % Normal 11.0-15.0 [facility] Comment on above: Performed By: #### L BCLH #### [facility] [address] [place] [address] Dr. Joe Shea Hematocrit (Bld) [Volume fraction] 33.0 % Critically low 36.0-48.0 [facility] Comment on above: Performed By: #### L BCLH #### [facility] [address] [place] [address] Dr. Joe Shea Hemoglobin (Bld) [Mass/Vol] 10.7 g/dL Critically low 12.0-16.0 [facility] Comment on above: Performed By: #### L BCL #### [facility] [address] [place] [address] Dr. Joe Shea LYMPH # 1.2 103/ul Normal 1.2-3.8 [facility] Comment on above: Performed By: #### L BCL #### [facility] [address] [place] [address] Dr. Joe Shea Lymphocytes/100 WBC (Bld) 20.2 % Critically low 20.5-6 0.0 [facility] Comment on above: Performed By: #### L BCL #### [facility] [address] [place] [address] Dr. Joe Shea MCH (RBC) [Entitic mass] 28.0 pg Normal 26.7-34.0 [facility] Comment on above: Performed By: #### L BCLH #### [facility] [address] [place] [address] Dr. Joe Shea MCHC (RBC) [Mass/Vol] 32.4 g/dL Normal 29.9-35.2 [facility] Comment on above: Performed By: #### L BCL #### [facility] [address] [address] [address] Joe Shea Monocytes/100 WBC (Bld) 7.9 % Normal 1.7-12.0 [facility] Comment on above: Performed By: #### L BCLH #### [facility] [address] [place] [address] Dr. Joe Shea Neutrophils/100 WBC (Bld) 69.9 % Normal 43.0-75.0 [facility] Comment on above: Performed By: #### L BCLH #### [facility] [address] [place] [address] Dr. Joe Shea Platelet mean volume (Bld) [Entitic vol] 10.6 fL Normal 9.5-13.5 [facility] Comment on above: Performed By: #### L BCL #### [facility] [address] [place] [address] Dr. Joe Shea PLT 233 103/ul Normal 150-450 [facility] Comment on above: Performed By: #### L BCL #### [facility] [address] [place] [address] Dr. Joe Shea RBC 3.82 106/ul Critically low 4.20-5.40 [facility] Comment on above: Performed By: #### L BCL #### [facility] [address] [place] [address] Dr. Joe Shea WBC 6.1 103/ul Normal 4.0-11.0 [facility] Comment on above: Performed By: #### L BCL #### [facility] [address] [place] [address] Dr. Joe Shea BASO # 0.0 103/ul Normal 0.0-0.1 [facility] Comment on above: Performed By: #### L BCL #### [facility] [address] [place] [address] Dr. Joe Shea Performed By: #### C MP, CARLYN, NESTOR #### [facility] [address] [place] [address] Dr. Joe Shea Basophils/100 WBC (Bld) 0.3 % Normal 0.2-2.0 [facility] Comment on above: Performed By: #### L BCLH #### [facility] [address] [place] [address] Dr. Joe Shea Performed By: #### C MP, LIPA, NESTOR #### [facility] [address] [place] [address] Dr. Joe Shea EO # 0.1 103/ul Normal 0.0-0.7 [facility] Comment on above: Performed By: #### L BCLH #### [facility] [address] [place] [address] Dr. Joe Shea Performed By: #### C MP, LIPA, NESTOR #### [facility] [address] [place] [address] Dr. Joe Shea Eosinophils/100 WBC (Bld) 1.9 % Normal 0.9-7.0 [facility] Comment on above: Performed By: #### C MP, LIPA, NESTOR #### [facility] [address] [place] [address] Dr. Joe Shea Erythrocyte distribution width (RBC) [Ratio] 13.4 % Normal 11.0-15.0 [facility] Comment on above: Performed By: #### C MP, LIPA, NESTOR #### [facility] [address] [place] [address] Dr. Joe Shea Hematocrit (Bld) [Volume fraction] 32.3 % Critically low 36.0-48.0 [facility] Comment on above: Performed By: #### C MP, LIPA, NESTOR #### [facility] [address] [place] [address] Dr. Joe Shea Hemoglobin (Bld) [Mass/Vol] 10.6 g/dL Critically low 12.0-16.0 [facility] Comment on above: Performed By: #### C MP, LIPA, NESTOR #### [facility] [address] [place] [address] Dr. Joe Shea IG # 0.01 10e3/ul Normal 0.00-0.03 [facility] Comment on above: Performed By: #### L BCLH #### [facility] [address] [place] [address] Dr. Joe Shea Performed By: #### C MP, LIPA, NESTOR #### [facility] [address] [place] [address] Dr. Joe Shea IG % 0.2 % Normal 0.0-0.5 [facility] Comment on above: Performed By: #### L BCLH #### [facility] [address] [place] [address] Dr. Joe Shea Performed By: #### C MP LIPA, NESTOR #### [facility] [address] [place] [address] Dr. Joe Shea LYMPH # 1.0 103/ul Critically low 1.2-3.8 [facility] Comment on above: Performed By: #### C MP, LIPA, NESTOR #### [facility] [address] [place] [address] Dr. Joe Shea Lymphocytes/100 WBC (Bld) 16.6 % Critically low 20.5-6 0.0 [facility] Comment on above: Performed By: #### C MP, LIPA, NESTOR #### [facility] [address] [place] [address] Dr. Joe Shea MANUAL DIFF REQ NO Normal [facility] Comment on above: Performed By: #### L BCL #### [facility] [address] [place] [address] Dr. Joe Shea Performed By: #### C MP, LIPA, NESTOR #### [facility] [address] [place] [address] Dr. Joe Shea MCH (RBC) [Entitic mass] 28.3 pg Normal 26.7-34.0 [facility] Comment on above: Performed By: #### C MP, LIPA, NESTOR #### [facility] [address] [place] [address] Dr. Joe Shea MCHC (RBC) [Mass/Vol] 32.8 g/dL Normal 29.9-35.2 [facility] Comment on above: Performed By: #### C MP, LIPA, NESTOR #### [facility] [address] [place] [address] Dr. Joe Shea MCV (RBC) [Entitic vol] 86.4 fL Normal 81.0-99.0 [facility] Comment on above: Performed By: #### L BCL #### [facility] [address] [place] [address] Dr. Joe Shea Performed By: #### C MP, LIPA, NESTOR #### [facility] [address] [place] [address] Dr. Joe Shea MONO # 0.5 103/ul Normal 0.3-0.8 [facility] Comment on above: Performed By: #### L BCL #### [facility] [address] [place] [address] Dr. Joe Shea Performed By: #### C MP, LIPA, NESTOR #### [facility] [address] [place] [address] Dr. Joe Shea Monocytes/100 WBC (Bld) 9.1 % Normal 1.7-12.0 [facility] Comment on above: Performed By: #### C MP, LIPA, NESTOR #### [facility] [address] [place] [address] Dr. Joe Shea NEUT # 4.3 103/ul Normal 1.4-6.5 [facility] Comment on above: Performed By: #### L BCLH #### [facility] [address] [place] [address] Dr. Joe Shea Performed By: #### C MP, LIPA, NESTOR #### [facility] [address] [place] [address] Dr. Joe Shea Neutrophils/100 WBC (Bld) 71.9 % Normal 43.0-75.0 [facility] Comment on above: Performed By: #### C MP, LIPA, NESTOR #### [facility] [address] [place] [address] Dr. Joe Shea Platelet mean volume (Bld) [Entitic vol] 11.0 fL Normal 9.5-13.5 [facility] Comment on above: Performed By: #### C CARLYN DE JESUS AMY #### [facility] [address] [place] [address] Dr. Joe Shea PLT 224 103/ul Normal 150-450 [facility] Comment on above: Performed By: #### C CARLYN DE JESUS AMY #### [facility] [address] [place] [address] Dr. Joe Shea RBC 3.74 106/ul Critically low 4.20-5.40 [facility] Comment on above: Performed By: #### C CARLYN DE JESUS AMY #### [facility] [address] [place] [address] Dr. Joe Shea WBC 5.9 103/ul Normal 4.0-11.0 [facility] Comment on above: Performed By: #### C CARLYN DE JESUS AMY #### [facility] [address] [place] [address] Dr. Joe Shea ER URINE PROFILEon 2 Bilirubin Ql (U) Negative Normal NEGATIVE [facility] Comment on above: Performed By: #### L BCL #### [facility] [address] [place] [address] Dr. Joe Shea Clarity (U) CLEAR Normal CLEAR [facility] Comment on above: Performed By: #### L BARRY #### [facility] [address] [place] [address] Dr. Joe Shea Color (U) LT. YELLOW Normal YELLOW [facility] Comment on above: Performed By: #### L BCL #### [facility] [address] [place] [address] Dr. Joe YUNG A micrscopic examination will be performed if indicated. Normal [facility] Comment on above: Performed By: #### L BCL #### [facility] [address] [place] [address] Dr. Joe Shea Glucose Ql (U) Negative Normal NEGATIVE [facility] Comment on above: Performed By: #### L BCLH #### [facility] [address] [place] [address] Dr. Joe Shea Hemoglobin Ql (U) Negative Normal NEGATIVE [facility] Comment on above: Performed By: #### L BCLH #### [facility] [address] [place] [address] Dr. Joe Shea Ketones Ql (U) Negative Normal NEGATIVE [facility] Comment on above: Performed By: #### L BCLH #### [facility] [address] [place] [address] Dr. Joe Shea LEUKOCYTES Negative Normal NEGATIVE [facility] Comment on above: Performed By: #### L BCLH #### [facility] [address] [place] [address] Dr. Joe Shea Nitrite Ql (U) Negative Normal NEGATIVE [facility] Comment on above: Performed By: #### L BCLH #### [facility] [address] [place] [address] Dr. Joe Shea pH (U) 5.5 [pH] Normal 5-9 [facility] Comment on above: Performed By: #### L BCL #### [facility] [address] [place] [address] Dr. Joe Shea SPEC GRAVITY 1.020 Normal 1.005-<=1.02 5 [facility] Comment on above: Performed By: #### L BCL #### [facility] [address] [place] [address] Dr. Joe Shea UA PROTEIN Negative Normal NEGATIVE/ TRACE [facility] Comment on above: Performed By: #### L BCL #### [facility] [address] [place] [address] Dr. Joe Shea UR MICRO IND NOT INDICATED Normal [facility] Comment on above: Performed By: #### L BCLH #### [facility] [address] [place] [address] Dr. Joe Shea Urobilinogen Qn (U) 0.2 {Pascual'U}/dL Normal 0.2 - 1. 0 [facility] Comment on above: Performed By: #### L BCLH #### [facility] [address] [place] [address] Dr. Joe Shea LIPASEon 05-23-2022 Lipase [Catalytic activity/Vol] 63.0 U/L Critically low 73.0-393.0 [facility] Comment on above: Performed By: #### C MP, LIPA, NESTOR #### [facility] [address] [place] [address] Dr. Joe Shea URon 05-23-2022 , QUAL Negative Normal NEGATIVE [facility] Comment on above: Performed By: #### C BC #### [facility] [address] [place] [address] Dr. Joe Shea PROF 14(COMP METB)on 022 Albumin [Mass/Vol] 3.7 g/dL Normal 3.4-5.0 [facility] Comment on above: Performed By: #### C MP, LIPA, NESTOR #### [facility] [address] [place] [address] Dr. Joe Shea Albumin/Globulin [Mass ratio] 1.4 {ratio} Normal [facility] Comment on above: Performed By: #### C MP, LIPA, NESTOR #### [facility] [address] [place] [address] Dr. Joe Shea ALP [Catalytic activity/Vol] 44 U/L Critically low 46-116 [facility] Comment on above: Performed By: #### C MP, LIPA, NESTOR #### [facility] [address] [place] [address] Dr. Joe Shea ALT [Catalytic activity/Vol] 24 U/L Normal 14-59 [facility] Comment on above: Performed By: #### C MP, LIPA, NESTOR #### [facility] [address] [place] [address] Dr. Joe Shea Anion gap [Moles/Vol] 9.1 mmol/L Normal [facility] Comment on above: Performed By: #### C MP, LIPA, NESTOR #### [facility] [address] [place] [address] Dr. Joe Shea AST [Catalytic activity/Vol] 18 U/L Normal 15-37 [facility] Comment on above: Performed By: #### C CARLYN DE JESUS, NESTOR #### [facility] [address] [address] [address] Joe Shea Bilirubin [Mass/Vol] 0.2 mg/dL Normal 0.2-1.0 [facility] Comment on above: Performed By: #### C HUGO DE JESUSA, NESTOR #### [facility] [address] [address] [address] Joe Shea Calcium [Mass/Vol] 8.3 mg/dL Critically low 8.5-10.1 [facility] Comment on above: Performed By: #### C CARLYN DE JESUS, NESTOR #### [facility] [address] [place] [address] Dr. Joe Shea Chloride [Moles/Vol] 105 mmol/L Normal 98-107 [facility] Comment on above: Performed By: #### C NEAL LIPA, NESTOR #### [facility] [address] [place] [address] Dr. Joe Shea CO2 [Moles/Vol] 29.7 mmol/L Normal 21.0-32.0 [facility] Comment on above: Performed By: #### C HUGO DE JESUSA, NESTOR #### [facility] [address] [place] [address] Dr. Joe Shea Creatinine [Mass/Vol] 0.61 mg/dL Normal 0.55-1.02 [facility] Comment on above: Performed By: #### C NEAL LIPA, NESTOR #### [facility] [address] [place] [address] Dr. Joe Shea EGFR-AF OMANI >60 Normal >=60 [facility] Comment on above: Performed By: #### C NEAL LIPA, NESTOR #### [facility] [address] [place] [address] Dr. Joe Shea EGFR-NON AF OMANI >60 Normal >=60 [facility] Comment on above: Performed By: #### C NEAL LIPA, NESTOR #### [facility] [address] [address] [address] Joe Shea Globulin (S) [Mass/Vol] 2.6 g/dL Normal [facility] Comment on above: Performed By: #### C MP, LIPA, NESTOR #### [facility] [address] [address] [address] Joe Shea Glucose [Mass/Vol] 92 mg/dL Normal 74-106 [facility] Comment on above: Performed By: #### C MP LIPA, NESTOR #### [facility] [address] [address] [address] Joe Shea Potassium [Moles/Vol] 3.8 mmol/L Normal 3.5-5.1 [facility] Comment on above: Performed By: #### C MP LIPA, NESTOR #### [facility] [address] [place] [address] Dr. Joe Shea Protein [Mass/Vol] 6.3 g/dL Critically low 6.4-8.2 [facility] Comment on above: Performed By: #### C MP LIPA, NESTOR #### [facility] [address] [address] [address] Joe Shea Sodium [Moles/Vol] 140 mmol/L Normal 136-145 [facility] Comment on above: Performed By: #### C MP, LIPA, NESTOR #### [facility] [address] [address] [address] Joe Shea Urea nitrogen [Mass/Vol] 9.0 mg/dL Normal 7.0-18.0 [facility] Comment on above: Performed By: #### C MP LIPA, NESTOR #### [facility] [address] [address] [address] Joe Shea Urea nitrogen/Creatinine [Mass ratio] 14.8 mg/mg Normal [facility] Comment on above: Performed By: #### C MP, LIPA, NESTOR #### [facility] [address] [address] [address] Joe Shea US SINGLE QUAD RT UPPERon 11 -23-2022 US SINGLE QUAD RT UPPER EXAMINATION: US [...] by: SHIRLEY PATEL Date: 2022-05-23 08:29 Normal [facility] AMYLASEon 05-22-2022 Amylase [Catalytic activity/Vol] 50 U/L Normal 25-115 [facility] Comment on above: Performed By: #### A MY, CMP, LIPA #### [facility] [address] [address] [address] Joe Shea CBC AUTO DIFFon 05-22-2022 BASO # 0.1 103/ul Normal 0.0-0.1 [facility] Comment on above: Performed By: #### C MP, LIPA, NESTOR #### [facility] [address] [address] [address] Joe Shea Basophils/100 WBC (Bld) 0.3 % Normal 0.2-2.0 [facility] Comment on above: Performed By: #### C MP, LIPA, NESTOR #### [facility] [address] [address] [address] Joe Shea EO # 0.0 103/ul Normal 0.0-0.7 [facility] Comment on above: Performed By: #### C MP, LIPA, NESTOR #### [facility] [address] [address] [address] Joe Shea Eosinophils/100 WBC (Bld) 0.2 % Critically low 0.9-7. 0 [facility] Comment on above: Performed By: #### C CARLYN DE JESUS AMY #### [facility] [address] [place] [address] Dr. Joe Shea Erythrocyte distribution width (RBC) [Ratio] 13.3 % Normal 11.0-15.0 [facility] Comment on above: Performed By: #### C CARLYN DE JESUS AMY #### [facility] [address] [place] [address] Dr. Joe Shea Hematocrit (Bld) [Volume fraction] 39.0 % Normal 36.0-48.0 [facility] Comment on above: Performed By: #### C CARLYN DE JESUS AMY #### [facility] [address] [place] [address] Dr. Joe Shea Hemoglobin (Bld) [Mass/Vol] 12.7 g/dL Normal 12.0-16.0 [facility] Comment on above: Performed By: #### C CARLYN DE JESUS AMY #### [facility] [address] [place] [address] Dr. Joe Shea IG # 0.05 10e3/ul Critically high 0.00-0.03 [facility] Comment on above: Performed By: #### C CARLYN DE JESUS NESTOR #### [facility] [address] [place] [address] Dr. Joe Shea IG % 0.3 % Normal 0.0-0.5 [facility] Comment on above: Performed By: #### C CARLYN DE JESUS, NESTOR #### [facility] [address] [place] [address] Dr. Joe Shea LYMPH # 0.8 103/ul Critically low 1.2-3.8 [facility] Comment on above: Performed By: #### C CARLYN DE JESUS, NESTOR #### [facility] [address] [place] [address] Dr. Joe Shea Lymphocytes/100 WBC (Bld) 4.4 % Critically low 20.5-6 0.0 [facility] Comment on above: Performed By: #### C CARLYN DE JESUS, NESTOR #### [facility] [address] [address] [address] Joe Shea MANUAL DIFF REQ NO Normal [facility] Comment on above: Performed By: #### C MP, LIPA, NESTOR #### [facility] [address] [place] [address] Dr. Joe Shea MCH (RBC) [Entitic mass] 28.1 pg Normal 26.7-34.0 [facility] Comment on above: Performed By: #### C MP, LIPA, NESTOR #### [facility] [address] [place] [address] Dr. Joe Shea MCHC (RBC) [Mass/Vol] 32.6 g/dL Normal 29.9-35.2 [facility] Comment on above: Performed By: #### C MP, LIPA, NESTOR #### [facility] [address] [place] [address] Dr. Joe Shea MCV (RBC) [Entitic vol] 86.3 fL Normal 81.0-99.0 [facility] Comment on above: Performed By: #### C MP, LIPA, NESTOR #### [facility] [address] [place] [address] Dr. Joe Shea MONO # 0.4 103/ul Normal 0.3-0.8 [facility] Comment on above: Performed By: #### C MP, LIPA, NESTOR #### [facility] [address] [place] [address] Dr. Joe Shea Monocytes/100 WBC (Bld) 2.2 % Normal 1.7-12.0 [facility] Comment on above: Performed By: #### C MP, LIPA, NESTOR #### [facility] [address] [place] [address] Dr. Joe Shea NEUT # 16.7 103/ul Critically high 1.4-6.5 [facility] Comment on above: Performed By: #### C MP, LIPA, NESTOR #### [facility] [address] [place] [address] Dr. Joe Shea Neutrophils/100 WBC (Bld) 92.6 % Critically high 43.0- 75.0 [facility] Comment on above: Performed By: #### C CARLYN DE JESUS AMY #### [facility] [address] [place] [address] Dr. Joe Shea Platelet mean volume (Bld) [Entitic vol] 11.0 fL Normal 9.5-13.5 [facility] Comment on above: Performed By: #### C CARLYN DE JESUS AMY #### [facility] [address] [place] [address] Dr. Joe Shea PLT 323 103/ul Normal 150-450 [facility] Comment on above: Performed By: #### C CARLYN DE JESUS AMY #### [facility] [address] [place] [address] Dr. Joe Shea RBC 4.52 106/ul Normal 4.20-5.40 [facility] Comment on above: Performed By: #### C CARLYN DEJ ESUS AMY #### [facility] [address] [place] [address] Dr. Joe Shea WBC 18.0 103/ul Critically high 4.0-11.0 [facility] Comment on above: Performed By: #### C CARLYN DE JESUS AMY #### [facility] [address] [place] [address] Dr. Joe Shea ER URINE PROFILEon 2 Bilirubin Ql (U) Negative Normal NEGATIVE [facility] Comment on above: Performed By: #### Althea GTZ #### [facility] [address] [place] [address] Dr. Joe Shea Clarity (U) CLEAR Normal CLEAR [facility] Comment on above: Performed By: #### Althea GTZ #### [facility] [address] [place] [address] Dr. Joe Shea Color (U) YELLOW Normal YELLOW [facility] Comment on above: Performed By: #### Althea GTZ #### [facility] [address] [place] [address] Dr. Joe Shea ERUAHD A micrscopic examination will be performed if indicated. Normal [facility] Comment on above: Performed By: #### Althea GTZ #### [facility] [address] [address] [address] Joe Shea Glucose Ql (U) Negative Normal NEGATIVE [facility] Comment on above: Performed By: #### Althea GTZ #### [facility] [address] [address] [address] Joe Shea Hemoglobin Ql (U) Negative Normal NEGATIVE [facility] Comment on above: Performed By: #### Althea GTZ #### [facility] [address] [address] [address] Joe Shea Ketones Ql (U) 15 mg/dl Abnormal NEGATIVE [facility] Comment on above: Performed By: #### Althea GTZ #### [facility] [address] [address] [address] Joe Shea LEUKOCYTES Negative Normal NEGATIVE [facility] Comment on above: Performed By: #### Althea GTZ #### [facility] [address] [address] [address] Joe Shea Nitrite Ql (U) Negative Normal NEGATIVE [facility] Comment on above: Performed By: #### Althea GTZ #### [facility] [address] [address] [address] Joe Shea pH (U) 5.5 [pH] Normal 5-9 [facility] Comment on above: Performed By: #### Althea GTZ #### [facility] [address] [address] [address] Joe Shea SPEC GRAVITY >=1.030 Abnormal 1.005-<=1.02 5 [facility] Comment on above: Performed By: #### Althea GTZ #### [facility] [address] [place] [address] Dr. Joe Shea UA PROTEIN Negative Normal NEGATIVE/ TRACE [facility] Comment on above: Performed By: #### Althea GTZ #### [facility] [address] [address] [address] Joe Shea UR MICRO IND NOT INDICATED Normal [facility] Comment on above: Performed By: #### Althea GTZ #### [facility] [address] [address] [address] Joe Shea Urobilinogen Qn (U) 1.0 {Pascual'U}/dL Normal 0.2 - 1. 0 [facility] Comment on above: Performed By: #### D TRESA #### [facility] [address] [place] [address] Dr. Joe Shea LACTATE/LACTIC ACIDon 2021 Lactate [Moles/Vol] 1.0 mmol/L Normal 0.4-1.9 [facility] Comment on above: Performed By: #### C BC #### [facility] [address] [place] [address] Dr. Joe Shea LIPASEon 05-22-2022 Lipase [Catalytic activity/Vol] 205.0 U/L Normal 73.0-393.0 [facility] Comment on above: Performed By: #### A MY, CMP, LIPA #### [facility] [address] [place] [address] Dr. Joe Shea MRI BRAIN WO CONon [...] ANGIE LO Date: 2022-05-22 16:17 Normal [facility] URon 05-22-2022 , QUAL Negative Normal NEGATIVE [facility] Comment on above: Performed By: #### D TRESA #### [facility] [address] [address] [address] Joe Shea PROF 14(COMP METB)on 022 Albumin [Mass/Vol] 4.5 g/dL Normal 3.4-5.0 [facility] Comment on above: Performed By: #### Althea GTZ #### [facility] [address] [address] [address] Joe Shea Albumin/Globulin [Mass ratio] 1.4 {ratio} Normal [facility] Comment on above: Performed By: #### Althea GTZ #### [facility] [address] [address] [address] Joe Shea ALP [Catalytic activity/Vol] 60 U/L Normal 46-116 [facility] Comment on above: Performed By: #### Althea GTZ #### [facility] [address] [address] [address] Joe Shea ALT [Catalytic activity/Vol] 17 U/L Normal 14-59 [facility] Comment on above: Performed By: #### Althea GTZ #### [facility] [address] [address] [address] Joe Shea Anion gap [Moles/Vol] 10.9 mmol/L Normal [facility] Comment on above: Performed By: #### Althea GTZ #### [facility] [address] [address] [address] Joe Shea AST [Catalytic activity/Vol] 19 U/L Normal 15-37 [facility] Comment on above: Performed By: #### Althea GTZ #### [facility] [address] [address] [address] Joe Shea Bilirubin [Mass/Vol] 0.8 mg/dL Normal 0.2-1.0 [facility] Comment on above: Performed By: #### Althea GTZ #### [facility] [address] [address] [address] Joe Shea Calcium [Mass/Vol] 9.0 mg/dL Normal 8.5-10.1 [facility] Comment on above: Performed By: #### Althea GTZ #### [facility] [address] [address] [address] Joe Shea Chloride [Moles/Vol] 102 mmol/L Normal 98-107 [facility] Comment on above: Performed By: #### Althea GTZ #### [facility] [address] [address] [address] Joe Shea CO2 [Moles/Vol] 28.7 mmol/L Normal 21.0-32.0 [facility] Comment on above: Performed By: #### Althea GTZ #### [facility] [address] [address] [address] Joe Shea Creatinine [Mass/Vol] 0.73 mg/dL Normal 0.55-1.02 [facility] Comment on above: Performed By: #### Althea GTZ #### [facility] [address] [address] [address] Joe Shea EGFR-AF OMANI >60 Normal >=60 [facility] Comment on above: Performed By: #### Althea GTZ #### [facility] [address] [address] [address] Joe Shea EGFR-NON AF OMANI >60 Normal >=60 [facility] Comment on above: Performed By: #### Althea GTZ #### [facility] [address] [address] [address] Joe Shea Globulin (S) [Mass/Vol] 3.2 g/dL Normal [facility] Comment on above: Performed By: #### Althea GTZ #### [facility] [address] [address] [address] Joe Shea Glucose [Mass/Vol] 113 mg/dL Critically high 74-106 [facility] Comment on above: Performed By: #### Althea GTZ #### [facility] [address] [address] [address] Joe Shea Potassium [Moles/Vol] 3.6 mmol/L Normal 3.5-5.1 [facility] Comment on above: Performed By: #### Althea GTZ #### [facility] [address] [address] [address] Joe Shea Protein [Mass/Vol] 7.7 g/dL Normal 6.4-8.2 [facility] Comment on above: Performed By: #### D TRESA #### [facility] [address] [address] [address] Joe Shea Sodium [Moles/Vol] 138 mmol/L Normal 136-145 [facility] Comment on above: Performed By: #### D TRESA #### [facility] [address] [address] [address] Joe Shea Urea nitrogen [Mass/Vol] 9.0 mg/dL Normal 7.0-18.0 [facility] Comment on above: Performed By: #### D TRESA #### [facility] [address] [address] [address] Joe Shea Urea nitrogen/Creatinine [Mass ratio] 12.3 mg/mg Normal [facility] Comment on above: Performed By: #### D TRESA #### [facility] [address] [address] [address] Joe Shea XR CHEST 2 Von [...] ANA COTE Date: 2022-05-22 02:56 Normal [facility] PROGESTERONEon 05-08-2022 Progesterone 18.1 ng/mL Normal [facility] Comment on above: Result Comment: Foll icular phase 0.1 - 0.9 Luteal phase 1.8 - 23.9 Ovulation phase 0.1 - 12.0 First trimester 11.0 - 44.3 Second trimester 25.4 - 83.3 Third trimester 58.7 - 214.0 Postmenopausal 0.0 - 0.1 Performed By: #### C BC #### [facility] [address] [place], [place] [address] Dr. Joe Shea DHEA SERUMon 04-12-2022 Dehydroepiandrosterone (DHEA) 577 ng/dL Normal [address] [facility] Comment on above: Result Comment: [...] 701 Performed By: #### C BC #### [facility] [address] [place] [address] [address] [address] Joe Shea PROGESTERONEon 04-10-2022 Progesterone 16.0 ng/mL Normal [facility] Comment on above: Result Comment: Foll icular phase 0.1 - 0.9 Luteal phase 1.8 - 23.9 Ovulation phase 0.1 - 12.0 First trimester 11.0 - 44.3 Second trimester 25.4 - 83.3 Third trimester 58.7 - 214.0 Postmenopausal 0.0 - 0.1 Performed By: #### Althea GTZ #### [facility] [address] [place] [address] Dr. Joe Shea DHEA-SULFATEon 04-06-2022 DHEA-Sulfate 241.0 ug/dL Normal 110.0-431.7 [facility] Comment on above: Performed By: #### Althea GTZ #### [facility] [address] [place] [address] Dr. Joe Shea FSHon 04-06-2022 FSH 6.6 mIU/mL Normal [facility] Comment on above: Result Comment: Adul t Female: Follicular phase 3.5 - 12.5 Ovulation phase 4.7 - 21.5 Luteal phase 1.7 - 7.7 Postmenopausal 25.8 - 134.8 Performed By: #### Althea GTZ #### [facility] [address] [place] [address] Dr. Joe Shea LUTEINIZING HORMONE (LH)on 1 LH 19.8 mIU/mL Normal [facility] Comment on above: Result Comment: Adul t Female: Follicular phase 2.4 - 12.6 Ovulation phase 14.0 - 95.6 Luteal phase 1.0 - 11.4 Postmenopausal 7.7 - 58.5 Performed By: #### L BCL #### [facility] [address] [place] [address] Dr. Joe Shea CBC AUTO DIFFon 04-05-2022 BASO # 0.1 103/ul Normal 0.0-0.1 [facility] Comment on above: Performed By: #### C BC #### [facility] [address] [place] [address] Dr. Joe Shea Basophils/100 WBC (Bld) 0.9 % Normal 0.2-2.0 [facility] Comment on above: Performed By: #### C BC #### [facility] [address] [place] [address] Dr. Joe Shea EO # 0.2 103/ul Normal 0.0-0.7 [facility] Comment on above: Performed By: #### C BC #### [facility] [address] [place] [address] Dr. Joe Shea Eosinophils/100 WBC (Bld) 2.6 % Normal 0.9-7.0 [facility] Comment on above: Performed By: #### C BC #### [facility] [address] [place] [address] Dr. Joe Shea Erythrocyte distribution width (RBC) [Ratio] 13.1 % Normal 11.0-15.0 [facility] Comment on above: Performed By: #### C BC #### [facility] [address] [place] [address] Dr. Joe Shea Hematocrit (Bld) [Volume fraction] 38.2 % Normal 36.0-48.0 [facility] Comment on above: Performed By: #### C BC #### [facility] [address] [place] [address] Dr. Joe Shea Hemoglobin (Bld) [Mass/Vol] 12.3 g/dL Normal 12.0-16.0 [facility] Comment on above: Performed By: #### C BC #### [facility] [address] [place] [address] Dr. Joe Shea IG # 0.01 10e3/ul Normal 0.00-0.03 [facility] Comment on above: Performed By: #### C BC #### [facility] [address] [place] [address] Dr. Joe Shea IG % 0.2 % Normal 0.0-0.5 [facility] Comment on above: Performed By: #### C BC #### [facility] [address] [place] [address] Dr. Joe Shea LYMPH # 1.7 103/ul Normal 1.2-3.8 [facility] Comment on above: Performed By: #### C BC #### [facility] [address] [place] [address] Dr. Joe Shea Lymphocytes/100 WBC (Bld) 29.2 % Normal 20.5-60.0 [facility] Comment on above: Performed By: #### C BC #### [facility] [address] [place] [address] Dr. Joe Shea MANUAL DIFF REQ NO Normal [facility] Comment on above: Performed By: #### C BC #### [facility] [address] [place] [address] Dr. Joe Shea MCH (RBC) [Entitic mass] 28.4 pg Normal 26.7-34.0 [facility] Comment on above: Performed By: #### C BC #### [facility] [address] [place] [address] Dr. Joe Shea MCHC (RBC) [Mass/Vol] 32.2 g/dL Normal 29.9-35.2 [facility] Comment on above: Performed By: #### C BC #### [facility] [address] [place] [address] Dr. Joe Shea MCV (RBC) [Entitic vol] 88.2 fL Normal 81.0-99.0 [facility] Comment on above: Performed By: #### C BC #### [facility] [address] [place] [address] Dr. Joe Shea MONO # 0.5 103/ul Normal 0.3-0.8 [facility] Comment on above: Performed By: #### C BC #### [facility] [address] [place] [address] Dr. Joe Shea Monocytes/100 WBC (Bld) 8.2 % Normal 1.7-12.0 [facility] Comment on above: Performed By: #### C BC #### [facility] [address] [place] [address] Dr. Joe Shea NEUT # 3.4 103/ul Normal 1.4-6.5 [facility] Comment on above: Performed By: #### C BC #### [facility] [address] [place] [address] Dr. Joe Shea Neutrophils/100 WBC (Bld) 58.9 % Normal 43.0-75.0 [facility] Comment on above: Performed By: #### C BC #### [facility] [address] [place] [address] Dr. Joe Shea Platelet mean volume (Bld) [Entitic vol] 11.5 fL Normal 9.5-13.5 [facility] Comment on above: Performed By: #### C BC #### [facility] [address] [place] [address] Dr. Joe Shea PLT 233 103/ul Normal 150-450 [facility] Comment on above: Performed By: #### C BC #### [facility] [address] [place] [address] Dr. Joe Shea RBC 4.33 106/ul Normal 4.20-5.40 [facility] Comment on above: Performed By: #### C BC #### [facility] [address] [place] [address] Dr. Joe Shea WBC 5.8 103/ul Normal 4.0-11.0 [facility] Comment on above: Performed By: #### C BC #### [facility] [address] [place] [address] Dr. Joe Shea GLYCOHEMOGLOBIN A1Con 2021 ADA RECOMMENDATION SEE BELOW Normal [facility] Comment on above: Result Comment: ADA RECOMMENDED LIMIT 4.0 - 6.0 ADA THERAPEUTIC TARGET < 7.0 ACTION SUGGESTED > 7.0 Performed By: #### C CARLYN DE JESUS AMY #### [facility] [address] [place] [address] Dr. Joe Shea Glucose [Mass/Vol] 105 mg/dL Normal [facility] Comment on above: Performed By: #### C CARLYN DE JESUS AMY #### [facility] [address] [address] [address] Joe Shea HbA1c (Bld) [Mass fraction] 5.3 % Normal 4.5-6.2 [facility] Comment on above: Performed By: #### C CARLYN DE JESUS AMY #### [facility] [address] [place] [address] Dr. Joe Shea TSHon 04-05-2022 TSH 0.609 uIU/mL Normal 0.358-3.740 [facility] Comment on above: Performed By: #### C BC #### [facility] [address] [place] [address] Dr. Joe Shea US PELVIS AND TRANSVAGon [...] ANGIE MEJIA Date: 2022-04-05 17:23 Normal [facility] AMYLASEon 03-10-2022 Amylase [Catalytic activity/Vol] 64 U/L Normal 25-115 [facility] Comment on above: Performed By: #### C BC #### [facility] [address] [place] [address] Dr. Joe Shea CBC AUTO DIFFon 03-10-2022 BASO # 0.1 103/ul Normal 0.0-0.1 [facility] Comment on above: Performed By: #### C BC #### [facility] [address] [place] [address] Dr. Joe Shea Basophils/100 WBC (Bld) 0.6 % Normal 0.2-2.0 [facility] Comment on above: Performed By: #### C BC #### [facility] [address] [place] [address] Dr. Joe Shea EO # 0.3 103/ul Normal 0.0-0.7 [facility] Comment on above: Performed By: #### C BC #### [facility] [address] [place] [address] Dr. Joe Shea Eosinophils/100 WBC (Bld) 1.7 % Normal 0.9-7.0 [facility] Comment on above: Performed By: #### C BC #### [facility] [address] [place] [address] Dr. Joe Shea Erythrocyte distribution width (RBC) [Ratio] 13.1 % Normal 11.0-15.0 [facility] Comment on above: Performed By: #### C BC #### [facility] [address] [place] [address] Dr. Joe Shea Hematocrit (Bld) [Volume fraction] 37.9 % Normal 36.0-48.0 [facility] Comment on above: Performed By: #### C BC #### [facility] [address] [place] [address] Dr. Joe Shea Hemoglobin (Bld) [Mass/Vol] 12.2 g/dL Normal 12.0-16.0 [facility] Comment on above: Performed By: #### C BC #### [facility] [address] [place] [address] Dr. Joe Shea IG # 0.05 10e3/ul Critically high 0.00-0.03 [facility] Comment on above: Performed By: #### C BC #### [facility] [address] [place] [address] Dr. Joe Shea IG % 0.3 % Normal 0.0-0.5 [facility] Comment on above: Performed By: #### C BC #### [facility] [address] [place] [address] Dr. Joe Shea LYMPH # 4.7 103/ul Critically high 1.2-3.8 [facility] Comment on above: Performed By: #### C BC #### [facility] [address] [place] [address] Dr. Joe Shea Lymphocytes/100 WBC (Bld) 28.3 % Normal 20.5-60.0 [facility] Comment on above: Performed By: #### C BC #### [facility] [address] [place] [address] Dr. Joe Shea MANUAL DIFF REQ NO Normal [facility] Comment on above: Performed By: #### C BC #### [facility] [address] [place] [address] Dr. Joe Shea MCH (RBC) [Entitic mass] 27.9 pg Normal 26.7-34.0 [facility] Comment on above: Performed By: #### C BC #### [facility] [address] [place] [address] Dr. Joe Shea MCHC (RBC) [Mass/Vol] 32.2 g/dL Normal 29.9-35.2 [facility] Comment on above: Performed By: #### C BC #### [facility] [address] [place] [address] Dr. Joe Shea MCV (RBC) [Entitic vol] 86.5 fL Normal 81.0-99.0 [facility] Comment on above: Performed By: #### C BC #### [facility] [address] [place] [address] Dr. Joe Shea MONO # 0.9 103/ul Critically high 0.3-0.8 [facility] Comment on above: Performed By: #### C BC #### [facility] [address] [place] [address] Dr. Joe Shea Monocytes/100 WBC (Bld) 5.5 % Normal 1.7-12.0 [facility] Comment on above: Performed By: #### C BC #### [facility] [address] [place] [address] Dr. Joe Shea NEUT # 10.5 103/ul Critically high 1.4-6.5 [facility] Comment on above: Performed By: #### C BC #### [facility] [address] [place] [address] Dr. Joe Shea Neutrophils/100 WBC (Bld) 63.6 % Normal 43.0-75.0 [facility] Comment on above: Performed By: #### C BC #### [facility] [address] [place] [address] Dr. Joe Shea Platelet mean volume (Bld) [Entitic vol] 11.1 fL Normal 9.5-13.5 [facility] Comment on above: Performed By: #### C BC #### [facility] [address] [place] [address] Dr. Joe Shea PLT 428 103/ul Normal 150-450 [facility] Comment on above: Performed By: #### C BC #### [facility] [address] [place] [address] Dr. Joe Shea RBC 4.38 106/ul Normal 4.20-5.40 [facility] Comment on above: Performed By: #### C BC #### [facility] [address] [place] [address] Dr. Joe Shea WBC 16.6 103/ul Critically high 4.0-11.0 [facility] Comment on above: Performed By: #### C BC #### [facility] [address] [place] [address] ABD/PELV W CONon 03-10-[address] ABD/PELV W CON EXAMINATION: CT ABD/PELV [...] by: MURALI STRANGE Date: 2022-03-10 16:59 Normal [facility] LIPASEon 03-10-2022 Lipase [Catalytic activity/Vol] 81.0 U/L Normal 73.0-393.0 [facility] Comment on above: Performed By: #### C BC #### [facility] [address] [place] [address] Dr. Joe Shea LIVER PROFILEon 03-10-2022 Albumin [Mass/Vol] 4.2 g/dL Normal 3.4-5.0 [facility] Comment on above: Performed By: #### C BC #### [facility] [address] [place] [address] Dr. Joe Shea Albumin/Globulin [Mass ratio] 1.4 {ratio} Normal [facility] Comment on above: Performed By: #### C BC #### [facility] [address] [place] [address] Dr. Joe Shea ALP [Catalytic activity/Vol] 50 U/L Normal 46-116 [facility] Comment on above: Performed By: #### C BC #### [facility] [address] [place] [address] Dr. Joe Shea ALT [Catalytic activity/Vol] 14 U/L Normal 14-59 [facility] Comment on above: Performed By: #### C BC #### [facility] [address] [address] [address] Jeo Shea AST [Catalytic activity/Vol] 13 U/L Critically low 15-37 [facility] Comment on above: Performed By: #### C BC #### [facility] [address] [address] [address] Joe Shea BILI, CONJUGATED 0.1 mg/dL Normal 0.0-0.2 [facility] Comment on above: Performed By: #### C BC #### [facility] [address] [place] [address] Dr. Joe Shea Bilirubin [Mass/Vol] 0.3 mg/dL Normal 0.2-1.0 [facility] Comment on above: Performed By: #### C BC #### [facility] [address] [place] [address] Dr. Joe Shea Globulin (S) [Mass/Vol] 3.1 g/dL Normal [facility] Comment on above: Performed By: #### C BC #### [facility] [address] [place] [address] Dr. Joe Shea Protein [Mass/Vol] 7.3 g/dL Normal 6.4-8.2 [facility] Comment on above: Performed By: #### C BC #### [facility] [address] [place] [address] Dr. Joe Shea PREG HCG QUALon 03-10-2022 , QUAL Negative Normal NEGATIVE [facility] Comment on above: Performed By: #### L BCLH #### [facility] [address] [place] [address] Dr. Joe Shea PROF CHEM 8 (BAS METB)on Anion gap [Moles/Vol] 17.6 mmol/L Normal [facility] Comment on above: Performed By: #### C MP, LIPA, NESTOR #### [facility] [address] [address] [address] Joe Shea Calcium [Mass/Vol] 9.0 mg/dL Normal 8.5-10.1 [facility] Comment on above: Performed By: #### C CARLYN DE JESUS, NESTOR #### [facility] [address] [place] [address] Dr. Joe Shea Chloride [Moles/Vol] 102 mmol/L Normal 98-107 [facility] Comment on above: Performed By: #### C CARLYN DE JESUS, NESTOR #### [facility] [address] [place] [address] Dr. Joe Shea CO2 [Moles/Vol] 23.4 mmol/L Normal 21.0-32.0 [facility] Comment on above: Performed By: #### C CARLYN DE JESUS, NESTOR #### [facility] [address] [place] [address] Dr. Joe Shea Creatinine [Mass/Vol] 0.84 mg/dL Normal 0.55-1.02 [facility] Comment on above: Performed By: #### C HUGO DE JESUSA, NESTOR #### [facility] [address] [place] [address] Dr. Joe Shea EGFR-AF OMANI >60 Normal >=60 [facility] Comment on above: Performed By: #### C HUGO DE JESUSA, NESTOR #### [facility] [address] [place] [address] Dr. Joe Shea EGFR-NON AF OMANI >60 Normal >=60 [facility] Comment on above: Performed By: #### C CARLYN DE JESUS, NESTOR #### [facility] [address] [place] [address] Dr. Joe Shea Glucose [Mass/Vol] 149 mg/dL Critically high 74-106 [facility] Comment on above: Performed By: #### C HUGO DE JESUSA, NESTOR #### [facility] [address] [place] [address] Dr. Joe Shea Potassium [Moles/Vol] 2.9 mmol/L Critically low 3.5-5.1 [facility] Comment on above: Performed By: #### C HUGO DE JESUSA, NESTOR #### [facility] [address] [address] [address] Joe Shea Sodium [Moles/Vol] 139 mmol/L Normal 136-145 [facility] Comment on above: Performed By: #### C MP, LIPA, NESTOR #### [facility] [address] [address] [address] Joe Shea Urea nitrogen [Mass/Vol] 11.0 mg/dL Normal 7.0-18.0 [facility] Comment on above: Performed By: #### C MP, LIPA, NESTOR #### [facility] [address] [address] [address] Joe Shea Urea nitrogen/Creatinine [Mass ratio] 13.1 mg/mg Normal [facility] Comment on above: Performed By: #### C MP, LIPA, NESTOR #### [facility] [address] [address] [address] Joe Shea XR CSPINE 2_3 VIEWSon [...] ANGIE MEJIA Date: 2022-01-18 08:03 Normal [facility] C BP Strepon 12-23-2019 C BP Strep This is strictly a screening test for Strep Group A( Streptococcus pyogenes). No other pathogens will be noted. Final Backup plate negative for Group A Streptococus Resulted at [facility] Normal [facility] Comment on above: Performed By: #### B P #### [facility] (DEFAULT) [address] [place] [address] [facility] [address] [place] [address] Ambulatory Patient Education on 12-21-2019 Ambulatory Patient [...] a child 2 years or older. ? [phone] [employer] [place] [address], [place] [address]. All rights reserved. This information is not intended as a substitute for professional medical care. Always follow your healthcare professional's instructions. Strep today is Negative. Will send for culture to [facility] and notify if it returns positive. Take medication as prescribed. Discontinue for a negative strep culture. Discard and replace toothbrush after taking antibiotics for at least 24 hours. May use jlxe-drl-cwmdlya Tylenol and Motrin for pain relief. May use of flcs-inp-sezgrju Chloraseptic throat spray, lozenges, cool or warm [...] tabs, 0 Refill(s), 12/26/19 14:42:00 EDT, Pharmacy: [facility] [id number] [facility] [place] Track[facility] 12-21-2019 BVO Red Swab # 1 Normal [facility] Comment on above: Performed By: #### [facility] Tracking Order #### [facility] [address] [place] [address] Urgent Care Office/Clinic No sabiha 12-21-2019 Urgent [...] POC: negative. Swab will be sent to [facility] for culture. We will call if positive and treat appropriately. Additional Vitals Body Mass Index Measured: 18.43 kg/m2 Peripheral Pulse Rate: 111 bpm High Assessment/Plan 1. Sore throat Strep today is Negative. Will send for culture to [facility] and notify if it returns positive. Take medication as prescribed. Discontinue for a negative strep culture. Discard and replace toothbrush after taking antibiotics for at least 24 hours. May use bqnm-ntv-izkmdrs Tylenol and Motrin for pain relief. May use of pdiu-wqj-idluiqg Chloraseptic throat spray, lozenges, cool or warm [...] tabs, 0 Refill(s), 12/26/19 14:42:00 EDT, Pharmacy: [facility] [id number] Physician Comments Cent[facility] [...] by Rosa Fitch 12/21/19 15:01 EDT Normal [facility] Vital Signs Date Time Vital Sign Value Performing Clinician Facility 03-28-2023 10:160400 Body height 157.48 cm Referring Provider Unknown [id number] [address] [place] Work Phone: 03-28-2023 10:16-0400 Body mass index (BMI) [Ratio] 23.78 kg/m2 Referring Provider Unknown [id number] [address] [place] Work Phone: 03-28-2023 10:16-0400 Body surface area Derived from formula 1.59 m2 Referring Provider Unknown [id number] [address] [place] Work Phone: 03-28-2023 10:16-0400 Body weight 58.97 kg Referring Provider Unknown [id number] [address] [place] Work Phone: 03-28-2023 10:16-0400 Diastolic blood pressure 65 mm[Hg] Referring Provider Unknown [id number] [address] [place] Work Phone: 03-28-2023 10:16-0400 Heart rate 96 /min Referring Provider Unknown [id number] [address] [place] Work Phone: 03-28-2023 10:16-0400 Systolic blood pressure 107 mm[Hg] Referring Provider Unknown [id number] [address] [place] Work Phone: 03-28-2023 10:16-0400 0 1 Referring Provider Unknown [id number] [address] [place] Work Phone: Comment on above: [employer] 02-14-2023 09:15-0400 Body height 154.94 cm Filippo Larson Other [facility] Other 02-14-2023 09:15-0400 Body mass index (BMI) [Ratio] 21.73 kg/m2 Filippo Larson Other [facility] Other 02-14-2023 09:15-0400 Body weight 52.16 kg Filippo Larson Other [facility] Other 02-14-2023 09:15-0400 Diastolic blood pressure 68 mm[Hg] Filippo Larson Other [facility] Other 02-14-2023 09:15-0400 Systolic blood pressure 96 mm[Hg] Filippo Larson Other [facility] Other 07-17-2022 14:26-0500 Blood Pressure Location Mayito LIM [facility] 07-17-2022 14:26-0500 Diastolic blood pressure 70 mm[Hg] Mayito NILL [facility] 07-17-2022 14:26-0500 Heart rate 70 /min Mayito NILL [facility] 07-17-2022 14:26-0500 Respiratory rate 16 /min Mayito NILL [facility] 07-17-2022 14:26-0500 Systolic blood pressure 102 mm[Hg] Mayito NILL [facility] 03-09-2020 20:24-0400 BP Diastolic 61 mm[Hg] PHYSICIAN NO [facility] 03-09-2020 20:24-0400 BP Systolic 117 mm[Hg] PHYSICIAN NO [facility] 03-09-2020 20:24-0400 Pulse (Heart Rate) 85 /min PHYSICIAN NO [facility] 03-09-2020 20:24-0400 Pulse Oximetry 100 % PHYSICIAN NO [facility] 03-09-2020 20:24-0400 Respiratory Rate 24 /min PHYSICIAN NO [facility] 03-09-2020 18:49-0400 BMI (Body Mass Index) 20 kg/m2 PHYSICIAN NO [facility] 03-09-2020 18:49-0400 Body Temperature 98.7 [degF] PHYSICIAN NO [facility] 03-09-2020 18:49-0400 Body weight 49.7 kg PHYSICIAN NO [facility] 03-09-2020 18:49-0400 Height 157.48 cm PHYSICIAN NO [facility] Encounters Encounter Date Encounter Type Care Provider Facility Start: 07-22-2023 End: 07-22-2023 ambulatory Cecil Lilian Facility:[facility] Start: 07-22-2023 End: 07-22-2023 ambulatory Cecil Lilian Work Phone: [facility] Work Phone: Start: 07-22-2023 End: 07-22-2023 Departed Referred Cecil Lilian Work Phone: [facility] Start: 07-22-2023 End: 07-22-2023 ambulatory CECIL LILIAN Not Available Start: 07-17-2023 End: 07-18-2023 ambulatory CECIL R LILIAN [facility] Start: 07-16-2023 End: 07-16-2023 ambulatory CECIL LILIAN Not Available Start: 07-09-2023 End: 07-09-2023 ambulatory CECIL LILIAN Not Available Start: 07-08-2023 End: 07-08-2023 ambulatory LLYY SMITH [facility] Start: 07-08-2023 End: 07-08-2023 Office outpatient visit 15 minutes Paulie Cervantes MD Work Phone: Maternal- Medicine at [facility] Comment on above: 34 weeks gestation o f (Primary Dx); Poor growth affecting management of mother in third trimester, fetus 1 of multiple gestation; Dichorionic diamniotic twin in third trimester; Anxiety during Start: 07-04-2023 Orders Only Freddy Hughes [facility] r[facility]- Medicine at [facility] Comment on above: Dichorionic diamniot ic twin in third trimester (Primary Dx); Poor growth affecting management of mother in third trimester, fetus 1 of multiple gestation Start: 07-03-2023 End: 07-04-2023 ambulatory AMADEO HEATON [facility] Start: 06-11-2023 End: 06-11-2023 ambulatory NESTOR PRICE Not Available Start: 05-28-2023 End: 05-28-2023 ambulatory CECIL LILIAN Not Available Start: 05-14-2023 End: 05-14-2023 ambulatory NESTOR DEE Not Available Start: 03-28-2023 Office consultation new/estab patient 80 min Referring Provider Unknown [id number] [address] [place] Work Phone: Start: 03-28-2023 Patient encounter procedure Referring Provider Unknown [id number] [address] [place] Work Phone: Start: 03-28-2023 ambulatory Ramakrishna Schwarz Facility :[facility] Start: 02-14-2023 End: 02-14-2023 ambulatory Filippo Larson Other [facility] [employer] Other Start: 02-14-2023 Office outpatient vi sit 15 minutes Filippo Larson [facility] G[facility] Start: 11-28-2022 End: 11-28-[address] SUKI CONDE Facility:[facility] Start: 11-28-[address] SUKI CONDE Facil ity:[facility] Start: 10-28-2022 End: 10-28-[address] SUKI CONDE Facility:[facility] Start: 09-29-2022 End: 09-29-[address] SUKI CONDE Facility: Start: 09-19-2022 End: 09-20-[address] SUKI CONDE Facility:[facility] Start: 08-15-[address] SUKI CONDE Facil ity:[facility] Start: 07-17-2022 End: 07-18-2022 ambulatory SUKI CONDE PROVIDER Facility:[facility] Start: 07-17-2022 End: 07-17-2022 Patient encounter procedure Mayito LIM [facility] Nill/Said Tristan Start: 07-10-2022 End: 07-10-[address] CECIL JOHNSON . Facility:[facility] Start: 07-08-2022 Encounter for preprocedural laboratory examination DR CECIL JOHNSON . [facility] Start: 07-06-2022 End: 07-07-[address] CECIL JOHNSON . Facility:[facility] Start: 07-06-2022 End: 07-07-2022 Encounter for preprocedural laboratory examination DR CECIL JOHNSON . Facility:[facility] Start: 06-15-2022 End: 06-16-[address] CECIL JOHNSON . Facility:[facility] Start: 06-11-2022 End: 06-12-2022 ambulatory JUANJOSE VIRAMONTES Facility:[facility] Start: 06-08-2022 ambulatory SUKI CONDE PROVIDER Facility:[facility] Start: 05-31-2022 End: 06-01-[address] CECIL JONHSON . Facility:[facility] Start: 05-29-2022 End: 05-29-2022 ambulatory HARMAN ADAMS Facility:[facility] Start: 05-23-2022 End: 05-23-2022 ambulatory MARYURI KAPLAN . Facility:[facility] Start: 05-22-2022 End: 05-22-2022 ambulatory HARMAN ADAMS Facility:[facility] Start: 05-21-2022 End: 05-22-[address] SHIRLEY SHEPHERD Facility:[facility] Start: 05-07-2022 End: 05-08-[address] CECIL OJHNSON . Facility:[facility] Start: 04-09-2022 End: 04-10-[address] CECIL JOHNSON . Facility:[facility] Start: 04-05-2022 End: 04-06-[address] CECIL JOHNSON . Facility:[facility] Start: 03-10-2022 End: 03-10-[address] SUKI CONDE Facility:[facility] Start: 03-10-2022 End: 03-10-[address] SUKI CONDE Facility:[facility] Start: 01-17-2022 End: 01-18-[address] SUKI CONDE Facility:[facility] Start: 03-09-2020 End: 03-09-2020 Emergency department patient visit PHYSICIAN KIMI [facility]-Emergency Room Start: 04-27-2014 End: 04-27-2014 Telephone encounter Noa Dimas MD Work Phone: Reproductive Endocrinology Infertility Procedures Date Procedure Procedure Detail Performing Clinician Start: 10-25-2020 Microscopic observation [Identifier] in Cervix by Cyto stain Freddy Hughes [employer] Colonoscopy Mayito NILCourtney Dilation and curettage Temo OBANDOL Dilation and curettage Temo OBNADOL Esophagogastroduodenoscopy Arianna OBANDOL Excision of cyst of ovary Juana OBANDOL Lesley Weiner GISELLACourtney Plan of Treatment Date Care Activity Detail Author Start: 05-28-2032 DTaP,Tdap and Td Vaccines (8 - Td or Tdap) DTaP,Tdap and Td Vaccines (8 - Td or Tdap) [facility] Start: 07-04-2024 End: 07-04-2024 US MFM with or without consult US MFM with or without consult Imaging Routine Dichorionic diamniotic twin in third trimester Poor growth affecting management of mother in third trimester, fetus 1 of multiple gestation Expected: 07/04/2024 (Approximate), Expires: 07/04/2024 [facility] Work Phone: Comment on above: Expected: 07/04/2024 (Approximate), Expires: 07/04/2024 Start: 06-03-2024 Adult BMI Screening Adult BMI Screen ing [facility] Start: 06-03-2024 Tobacco Screening Tobacco Screening [facility] Start: 2024 Screening for Chlamy carroll trachomatis Chlamydia Screening [facility] Start: 10-26-2023 Screening for malign ant neoplasm of cervix Pap Smear [facility] Start: 07-17-2023 End: 07-17-2023 Patient encounter procedure 07/17/2023 9:30 AM EST Appointment [facility] [address] [place] [phone] [facility] Start: 07-08-2023 End: 07-08-2023 Telemedicine consultation with patient 07/08/2023 1:00 PM EST Telemedicine M[facility]- [facility] at [facility] [address] [place] [id number] Paulie Cervantes MD [address] [place] [address] Lyly Smith MD [address] [place] [address] [facility] at [facility] Start: 03-01-2023 Influenza vaccination Influenza Vacc ine [facility] Start: 03-01-2021 Influenza vaccination INFLUENZ A (Season Ended) [facility] Start: 02-28-2020 PAP TESTING PAP TESTING [facility] Start: 2018 Urine microalbumin profile DTAP,TDAP,TD (1 - Tdap) [facility] Start: 2017 Adult BMI Follow Up Plan Adult BMI Follow Up Plan [facility] Start: 2017 CHLAMYDIA SCREENING (18-24) CHLAMYDIA SCREENING (18-24) [facility] Start: 2017 GC (GONORRHEA) SCREE KRUNAL (18-24) GC (GONORRHEA) SCREENING (18-24) [facility] Start: 2017 HEPATITIS C SCREENING HEPATITIS C SC REENING [facility] Start: 2017 HIV SCREENING HIV SCREENING [facility] Start: 2011 Adult depression screening assessment DEPRESSION SCREENING [facility] Start: 2010 HPV VACCINE (1 - 2-d ose series) HPV VACCINE (1 - 2-dose series) [facility] Patient Education Anxiety (ED) [facility] Patient referral [facility] Immunizations Immunization Date Immunization Notes Care Provider Laverne irizarry 01-05-2022 influenza virus vaccine, unspecified formulation Freddy Hughes [facility] NEGATED: Highlighted row has not occurred!07-17-2022 influenza virus vaccine, unspecified formulation Maytio LIM [facility] Payers Date Payer Category Payer Self-pay [id number] 2019 Unknown 2013 Unknown [facility] [employer] [place] PPO CONNECT INHE[employer] [id number] 2013-2014 PPO [id number] 1999 Unknown [id number] 2.16.840.1.394146.3.579.2.727 1999 Unknown [id number] 2.16.840.1.221343.3.579.2.727 1999 Unknown [id number] 2.16.840.1.448996.3.579.2.593 1999 Unknown [id number] 2.16.840.1.815186.3.579.2.593 1999 Unknown [id number] 2.16.840.1.578827.3.579.2.593 1999 Unknown [id number] 2.16.840.1.430216.3.579.2.593 1999 Unknown [id number] 2.16.840.1.164444.3.579.2.593 1999 Unknown [id number] 2.16.840.1.746961.3.579.2.593 1999 Unknown [id number] 2.16.840.1.398647.3.579.2.593 1999 Unknown [id number] 2.16.840.1.665899.3.579.2.593 1999 Unknown [id number] 2.16.840.1.419334.3.579.2.593 1999 Unknown [id number] 2.16.840.1.391889.3.579.2.593 1999 Unknown [id number] 2.16.840.1.025378.3.579.2.593 1999 Unknown [id number] 2.16.840.1.471091.3.579.2.593 1999 Unknown [id number] 2.16.840.1.862453.3.579.2.593 1999 Unknown [id number] 2.16.840.1.848688.3.579.2.593 1999 Unknown [id number] 2.16.840.1.762439.3.579.2.593 1999 Unknown [id number] 2.16.840.1.921565.3.579.2.593 1999 Unknown [id number] 2.16.840.1.378130.3.579.2.593 1999 Unknown [id number] 2.16.840.1.249396.3.579.2.593 1999 Unknown [id number] 2.16.840.1.006372.3.579.2.593 1999 Unknown [id number] 2.16.840.1.942193.3.579.2.593 1999 Unknown [id number] 2.16.840.1.953594.3.579.2.593 1999 Unknown [id number] 2.16.840.1.371785.3.579.2.356 1999 Unknown [id number] 2.16.840.1.749317.3.579.2.1286 1999 Unknown [id number] 2.16.840.1.105185.3.579.2.1286 1999 Unknown [id number] 2.16.840.1.779853.3.579.2.1286 1999 Unknown [id number] 2.16.840.1.399450.3.579.2.1259 1999 Unknown [id number] 2.16.840.1.143706.3.579.2.1259 1999 Unknown [id number] 2.16.840.1.151497.3.579.2.1259 1999 Unknown [id number] 2.16.840.1.110401.3.579.2.1259 1999 Unknown [id number] 2.16.840.1.639745.3.579.2.1259 1999 Unknown [id number] 2.16.840.1.647592.3.579.2.1259 1959 Unknown [id number] 1959 Unknown [id number] 1959 Unknown [id number] Unknown Self Pay [id number] Unknown [id number] 2.16.840.1.237677.3.579.2.531 Social History Date Type Detail Facility Start: 03-09-2020 End: 03-10-2020 Tobacco smoking status NHIS Smoker (finding) [facility] Start: 2000 Sex Assigned At Female [facility] Start: 04-12-2014 Tobacco smoking status NHIS Never smoker [facility] Start: 04-12-2014 End: 04-01-2023 Tobacco use and exposure Never used [facility] Start: 04-12-2014 Alcohol intake Current non-dr patient access manager of alcohol (finding) [facility] Start: 1999 Sex Assigned At Not on file [facility] Start: 07-17-2022 End: 04-01-2023 Tobacco smoking status Ex-smoker (finding) [facility] Tobacco smoking status Smokeless tobacco user within last 30 days [facility] Start: 06-03-2023 Sex Assigned At Female [facility] Start: 04-01-2023 End: 06-03-2023 No alcohol use No alcohol use [facility] History of tobacco use Cigarette Smoker [facility] Start: 06-03-2023 Alcohol intake Ex-drinker (finding) [facility] Start: 10-25-2020 Alcohol Comment RARELY [facility] Start: 11-22-2022 [facility] NEGATED: Highlighted row Denies History of domestic violence Denies History of domestic violence [id number] [address] [place] Work Phone: Goals Date Patient Goal Desired Activity /State Functional Status Date Assessment Result Facility 07-17-2022 Functional Status N/A [facility] Kemp leela [facility] Clinical Notes 04-27-2014 to 07-08-2023 Lyly Smith MD - 07/08/2023 1:00 PM EST Note Date & Type Note Facility 07-08-2023 History of Present illness Narrative Video Visit via Real-time Synchronous Audiovisual Provider Location: [facility] AT [address] [phone] Patient Location: Patient Location Quality Improvement Coordinator (Rn): None Video Visit Consent Statement: I discussed [...] that there are some limitations compared to emdx-vd-ijqe evaluations. We elected to proceed. REASON FOR [...] and B, status post 2nd opinion at [facility] Anxiety/ depression, managed on citalopram 40 mg [...] hypokalemia Anxiety and depression Bipolar 2 disorder ([facility]) Chronic abdominal pain Endometriosis Intractable nausea and [...] and B, status post 2nd opinion at [facility] COUNSELING We reviewed signs symptoms of labor [...] call me. Lyly Smith MD Maternal- Medicine [facility] [address] [place] [address] documented in this encounter [facility] 02-14-2023 Evaluation note Encounter Date Diagnosis Assessment [...] needed. Retrun visit here in three months. [employer] Other 01-20-2023 NoteChief Complaint consultation for epigastric [...] completed several years ago at [facility] was normal. History of Present Illness 22 yo female with h/o bipolar disorder, anxiety, migraines, referred for intermittent epigastric and LUQ pain, burning, at times sharp/stabbing; occasional N/V; + boating; no food triggers, occurs celia without eating; no hematemesis or melena; no hematochezia, some constipation, improved with stool softeners; had normal EGD and colonoscopy at [facility] in 2016; abdominal operations significant for laparoscopy [...] more than 30 da (more content not included)...[facility]Result Comment: Electronically Signed By: RAPHAEL MACIAS, Mayito Matthews\Date and Time Signed: 07/20/22 14:58 [id number] Note OPERATIVE NOTE OPERATION DATE: 07/10/2021 PROCEDURE: Diagnostic laparoscopy with chromopertubation. PREOPERATIVE DIAGNOSIS: Pelvic pain. POSTOPERATIVE DIAGNOSIS: Pelvic pain, including small endometrial implant posterior cul-de-sac, as well as possible blunted tube on the patient's left side. ANESTHESIA: General. SURGEON: Cecil Johnson D.O. MEDIA ANALYTICS MANAGER: ISAURO Mccoy URINE OUTPUT: Yellow and clear. BLOOD LOSS: 5 mL. FINDINGS: Slightly blunted tube on the left side, endometriosis posterior cul-de-sac, otherwise normal appearing uterus, tubes and ovaries. Normal appearing appendix. Some adhesions of the bowel to the pelvic and abdominal side wall on the patient's right side. Normal appearing liver. No evidence of Cwdn-Xrzy-Zsnwuv syndrome. PROCEDURE: The patient was taken back [...] [facility] NoteOP Note OPERATION DATE: 07/10/2022 PROCEDURE: Diagnostic laparoscopy with chromopertubation. PREOPERATIVE DIAGNOSIS: Pelvic pain, suspected endometriosis, fallopian tube disorder. POSTOPERATIVE DIAGNOSIS: Pelvic pain, suspected endometriosis, fallopian tube disorder, including mild endometriosis, bilateral patent fallopian tubes, small bowel adhesion to the pelvic side wall. ANESTHESIA: General. SURGEON: Cecil Johnson D.O. MEDIA ANALYTICS MANAGER: ISAURO Mccoy URINE OUTPUT: Yellow and clear. BLOOD LOSS: 5 mL. ADDENDUM: Please note that chromopertubation was performed after methylene blue was placed through the HUMI manipulator. Spillage of methylene blue could be seen from both tubes.[id number] Instructions* Patient Instructions* Jennifer Lam - 04/27/2014 4:49 PM EDT [phone] - Patient mother would like to speak with a nurse concerning medications that her daughter is taking. [facility] N[facility]ative - Reported * the patient is seen at the request of Dr. Gonzales at [facility] for consultation regarding second opinion for placental hemorrhage; EDC 08/15/2023 * FC MA [id number] [address] [place] Work Phone: chief complaint Narrative - Reported* the patient is seen at the request of Dr. Gonzales at [facility] for consultation regarding second opinion for placental hemorrhage; [facility] SERVICES 08/15/2023 * FC MA [id number] [address] [place] Work Phone: evaluation + Plan note No data available for this section General Surgery [facility] Evaluation note* Diagnosis Dichorionic diamniotic twin in third trimester- Primary Poor growth affecting management of mother in third trimester, fetus 1 of multiple gestation [facility] Diagnosis 34 weeks gestation of - Primary Poor growth affecting management of mother in third trimester, fetus 1 of multiple gestation Dichorionic diamniotic twin in third trimester Anxiety during [facility] Work Phone: Hisfreq general Narrative - Reported* Type Description Date Medical History Anxiety Medical History GERD (gastroesophageal reflux di sease) Medical History bipolar Surgical History LAPAROSCOPY-times 2 2013 Hospitalization History [facility] & [facility] - ultrasound & CT scans 12/2022 [facility] Discharge instructions No data available for this section General Surgery [place] InstructionsNot on filedocumented in this encounter [employer] SystemInstructionsNot on filedocumented in this encounter [employer] note No data available for this section General Surgery [place] Summary Purpose Family History No Family History Records FoundNo Family History Records FoundNo Family History Records FoundNo Family History Records FoundNo Family History Records FoundNo Family History Records FoundNo Family History Records Found Advance Directives No Advanced Directives Records Found Advance Directive Response Recorded Date/ Time Advance Directives No March 7:38pm Advance Directive Response Recorded Date/ Time Advance Directives No March 6:38pm Chief Complaint and Reason for Visit Chief Complaint anxiety Chief Complaint Unknown Assessments No Assessments Information Available Reason for Referral Specialty Diagnoses / Procedures Referred By Apolinar dinh Referred To Contact Maternal and Medicine Diagnoses Dichorionic diamniotic twin in third trimester Poor growth affecting management of mother in third trimester, fetus 1 of multiple gestation Procedures US MFM with or without consult Amadeo Heaton MD [address] [place] [address] [facility] [address] [place] [address] Referral ID Status Reason Start Date Expiration Date V isits Requested Visits Authorized [id number] Pending Review 07/04/2023 07/03/2024 1 1 Additional Source Comments INFORMATION SOURCE (unrecogn ized section and content) DATE CREATED AUTHOR 02/04/2020 [facility] DATE CREATED AUTHOR AUTHOR'S ORGANIZ ATION 08/16/2022 Pablo Fraser [facility] DATE CREATED AUTHOR AUTHOR'S ORGANIZ ATION 12/07/2022 [facility] DATE CREATED AUTHOR AUTHOR'S ORGANIZ ATION 04/06/2023 [facility] DATE CREATED AUTHOR AUTHOR'S ORGANIZ ATION 07/20/2023 [facility] DATE CREATED AUTHOR AUTHOR'S ORGANIZ ATION 07/23/2023 [facility] DATE CREATED AUTHOR AUTHOR'S ORGANIZ ATION 07/29/2023 [facility] Source Comments (unrecognize d section and content) In the event this informatio n is protected by the Federal Confidentiality of Alcohol and Drug Abuse Patient Records regulations: The Federal rules restrict any use of the information to criminally investigate or prosecute any alcohol or drug abuse patient.[facility] Patient Care team informatio n (unrecognized section and content) Donor Relations Coordinator Relationship Specialty Start Date End Date No Pcp, [place] [id number] PCP - General Family Medicine 10/25/20 Donor Relations Coordinator Relationship Specialty Start Date End Date No Pcp, [place] [address] PCP - General Family Medicine 10/25/20 Team Status: Inactive Member Role Status Dates Cecil Johnson Attending Provider Active Start: Mikel mirza 2023 End: July 22, 2023 REASON FOR VISIT (unrecogniz ed section and content) Patient here for 3 month fol low up. The patient is 14 weeks with twins. The patient was admitted to the hospital for 4 days about 3 weeks ago for abdominal pain. She is still on Protonix & is on a Zofran pump. She has stopped the Elavil. Goals (unrecognized section and content) Goals may be documented in a n alternate section FOR RECORDS PERTAINING TO PATIENTS WHO ARE [...] BE BASED ON THE PRIMARY CLINICAL RECORDS. [employer] [facility] provides no warranty or guarantee of the accuracy or completeness of information in this document.
== END 2023-07-12 09:47 | disposition home or self-care (01) ==
LOC: FBCO 07:00 → FBC 08:59
PROVIDERS: PCP Family Medicine; Visit Provider Obstetrics & Gynecology
DX: D50.9 Iron deficiency anemia, unspecified (principal); O36.5930 Maternal care for other known or suspected poor fetal growth, third trimester, not applicable or unspecified; O46.8X3 Other antepartum hemorrhage, third trimester; O30.043 Twin pregnancy, dichorionic/diamniotic, third trimester
CPT/HCPCS: 59025

== ENCOUNTER 2023-07-16 07:13 | Outpatient (OUT) | payer OTHER, SELFPAY ==
--- OUTSIDE RECORDS SUMMARY | 2023-07-16 07:16 | XMS_ITS | CCD ---
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 Role Phone NO FAMILY, PHYSICIAN Primary [...] DR SUKI Kong Primary Care Unavailable NILL ., DR WEINER Admitting Unavailable NILL ., DR WEINER Attending Unavailable AMAYA, DR SUKI Kong Primary Care Unavailable EUSEBIO ., MARYURI Admitting Unavailable EUSEBIO ., MARYURI Attending Unavailable DEE .NESTOR Consulting Unavailable [...] Unavailable AMAYA, DR SUKI Kong Attending Unavailable GRACEWOOD, DR ANGIE Arce Consulting Unavailable REQUEST, DR NONE LISTED Primary Care Unavaila caitie CONDE, DR SUKI Kong Consulting Unavailable Filippo Larson Unavailable [phone] Unknown, Referring Provider Unavailable Unav ailable Ramakrishna Schwarz Attending Unavailable UNKNOWN, PCP Primary Care Unavailable No Pcp, No Pcp Primary Care Provider UnavailCECIL Marie Attending Unavailable ELIZABETH, CECIL Attending Unavailable NESTOR PRICE Attending Unavailable NESTOR PRICE Attending Unavailable AMADEO HEATON Attending Unavailable CECIL QUINTANA Referring Unavailable NO PCP, NO PCP Primary Care Unavailable LYLY SMITH Attending Unavailable CECIL QUINTANA Referring Unavailable NO PCP, NO PCP Primary Care Unavailable Unavailable Unavailable Unavailable Allergies Allergy Classification Reported Allergen(s) Allergy Type Date of Onset Reaction(s) Facility (1 source) No Known Medication Allergies; Translations: [No Known Medication Allergies] Propensity to adverse reactions (disorder) [facility] Repository Medications Current Medications Medication Drug [...] 07/17/22 Status: Ordered take 2 tablets by [facility] once daily at bedtime Elavil 25 [...] 07/17/22 Status: Ordered take 1 tablet by [facility] once daily Zofran 4 MG 1 tablet [...] 2 Episodic Other aftercare (1 source) Other fdc (current) drug therapy; Translations: [OTH PT SKILLED CURRENT DRUG THERAPY] Onset: 3 Episodic Other [...] a) No falls within the last year JS-BESXZ-PME [address] [place] Work Phone: Tobacco use status CPHS a) Yes M G-OBGYN-MAC [address] [place] Work Phone: Blood Pressure Cuff Size Adult UW-AKONH-EIS [address] [place] Work Phone: Blood Pressure Cuff Size Yes DR-JCRON-YBL 1200 [place] Work Phone: No Panel Informationon 03-28 Normal IO-PDYTY-BKI [address] [place] Work Phone: OB Completed scan [...] previously been seen by Dr. Gonzales in [place]. Twins are doing well, their growth is [...] EFW (oz) 12 oz EFW by: [employer] ([id number]) [employer] Manufacturer 5.8 mm CM 3.9 mm 16% Nicolaides [...] 61 (more content not included)... Normal [facility] AMYLASEon 10-28-2022 Amylase [Catalytic activity/Vol] 35 U/L Normal 25-115 [facility] Comment on above: Performed By: #### C CARLYN DE JESUS AMY #### [facility] [address] [address] [address] Joe Shea CBC AUTO DIFFon 10-28-2022 BASO # 0.1 103/ul Normal 0.0-0.1 [facility] Comment on above: Performed By: #### C CARLYN DE JESUS AMY #### [facility] [address] [place], [place] [address] Dr. Joe Shea Basophils/100 WBC (Bld) 0.4 % Normal 0.2-2.0 [facility] Comment on above: Performed By: #### C MP, LIPA, NESTOR #### [facility] [address] [place] [address] Dr. Joe Shea EO # 0.1 103/ul Normal 0.0-0.7 [facility] Comment on above: Performed By: #### C NEAL LIPA, NESTOR #### [facility] [address] [place] [address] Dr. Joe Shea Eosinophils/100 WBC (Bld) 0.8 % Critically low 0.9-7. 0 [facility] Comment on above: Performed By: #### C NEAL LIPA, NESTOR #### [facility] [address] [place] [address] Dr. Joe Shea Erythrocyte distribution width (RBC) [Ratio] 13.2 % Normal 11.0-15.0 [facility] Comment on above: Performed By: #### C NEAL LIPA, NESTOR #### [facility] [address] [place] [address] Dr. Joe Shea Hematocrit (Bld) [Volume fraction] 37.2 % Normal 36.0-48.0 [facility] Comment on above: Performed By: #### C HUGO DE JESUSA, NESTOR #### [facility] [address] [place] [address] Dr. Joe Shea Hemoglobin (Bld) [Mass/Vol] 12.0 g/dL Normal 12.0-16.0 [facility] Comment on above: Performed By: #### C NEAL LIPA, NESTOR #### [facility] [address] [place] [address] Dr. Joe Shea IG # 0.03 10e3/ul Normal 0.00-0.03 [facility] Comment on above: Performed By: #### C HUGO DE JESUSA, NESTOR #### [facility] [address] [place] [address] Dr. Joe Shea IG % 0.2 % Normal 0.0-0.5 [facility] Comment on above: Performed By: #### C NEAL LIPA, NESTOR #### [facility] [address] [place] [address] Dr. Joe Shea LYMPH # 1.9 103/ul Normal 1.2-3.8 [facility] Comment on above: Performed By: #### C CARLYN DE JESUS AMY #### [facility] [address] [place] [address] Dr. Joe Shea Lymphocytes/100 WBC (Bld) 15.2 % Critically low 20.5-6 0.0 [facility] Comment on above: Performed By: #### C CARLYN DE JESUS, NESTOR #### [facility] [address] [place] [address] Dr. Joe Shea MANUAL DIFF REQ NO Normal [facility] Comment on above: Performed By: #### C CARLYN DE JESUS AMY #### [facility] [address] [place] [address] Dr. Joe Shea MCH (RBC) [Entitic mass] 28.4 pg Normal 26.7-34.0 [facility] Comment on above: Performed By: #### C CARLYN DE JESUS, NESTOR #### [facility] [address] [place] [address] Dr. Joe Shea MCHC (RBC) [Mass/Vol] 32.3 g/dL Normal 29.9-35.2 [facility] Comment on above: Performed By: #### C CARLYN DE JESUS NESTOR #### [facility] [address] [place] [address] Dr. Joe Shea MCV (RBC) [Entitic vol] 87.9 fL Normal 81.0-99.0 [facility] Comment on above: Performed By: #### C CARLYN DE JESUS, NESTOR #### [facility] [address] [place] [address] Dr. Joe Shea MONO # 0.9 103/ul Critically high 0.3-0.8 [facility] Comment on above: Performed By: #### C CARLYN DE JESUS, NESTOR #### [facility] [address] [place] [address] Dr. Joe Shea Monocytes/100 WBC (Bld) 7.1 % Normal 1.7-12.0 [facility] Comment on above: Performed By: #### C MP LIPA, NESTOR #### [facility] [address] [place] [address] Dr. Joe Shea NEUT # 9.5 103/ul Critically high 1.4-6.5 [facility] Comment on above: Performed By: #### C MP LIPA, NESTOR #### [facility] [address] [place] [address] Dr. Joe Shea Neutrophils/100 WBC (Bld) 76.3 % Critically high 43.0- 75.0 [facility] Comment on above: Performed By: #### C MP LIPA, NESTOR #### [facility] [address] [place] [address] Dr. Joe Shea Platelet mean volume (Bld) [Entitic vol] 10.8 fL Normal 9.5-13.5 [facility] Comment on above: Performed By: #### C NEAL LIPA, NESTOR #### [facility] [address] [place] [address] Dr. Joe Shea PLT 283 103/ul Normal 150-450 [facility] Comment on above: Performed By: #### C NEAL LIPA, NESTOR #### [facility] [address] [place] [address] Dr. Joe Shea RBC 4.23 106/ul Normal 4.20-5.40 [facility] Comment on above: Performed By: #### C NEAL LIPA, NESTOR #### [facility] [address] [place] [address] Dr. Joe Shea WBC 12.5 103/ul Critically high 4.0-11.0 [facility] Comment on above: Performed By: #### C NEAL LIPA, NESTOR #### [facility] [address] [place] [address] ABD/PELV W CONon [...] MISTI BREWER Date: 2022-10-28 18:31 Normal [facility] ER URINE PROFILEon 3 Bilirubin Ql (U) Negative Normal NEGATIVE [facility] Comment on above: Performed By: #### L BCL #### [facility] [address] [place] [address] Dr. Joe Shea Clarity (U) CLEAR Normal CLEAR [facility] Comment on above: Performed By: #### L BARRY #### [facility] [address] [place] [address] Dr. Joe Shea Color (U) LT. YELLOW Normal YELLOW [facility] Comment on above: Performed By: #### L BARRY #### [facility] [address] [place] [address] Dr. Joe YUNG A micrscopic examination will be performed if indicated. Normal [facility] Comment on above: Performed By: #### L BARRY #### [facility] [address] [place] [address] Dr. Joe Shea Glucose Ql (U) Negative Normal NEGATIVE [facility] Comment on above: Performed By: #### L BCL #### [facility] [address] [place] [address] Dr. Joe Shea Hemoglobin Ql (U) Negative Normal NEGATIVE [facility] Comment on above: Performed By: #### L BCL #### [facility] [address] [place] [address] Dr. Joe Shea Ketones Ql (U) Negative Normal NEGATIVE [facility] Comment on above: Performed By: #### L BCL #### [facility] [address] [place] [address] Dr. Joe Shea LEUKOCYTES TRACE Abnormal NEGATIVE [facility] Comment on above: Performed By: #### L BCL #### [facility] [address] [place] [address] Dr. Joe Shea Nitrite Ql (U) Negative Normal NEGATIVE [facility] Comment on above: Performed By: #### L BCL #### [facility] [address] [place] [address] Dr. Joe Shea pH (U) 8.0 [pH] Normal 5-9 [facility] Comment on above: Performed By: #### L BCL #### [facility] [address] [place] [address] Dr. Joe Shea SPEC GRAVITY 1.015 Normal 1.005-<=1.02 5 [facility] Comment on above: Performed By: #### L BCL #### [facility] [address] [place] [address] Dr. Joe Shea UA PROTEIN Negative Normal NEGATIVE/ TRACE [facility] Comment on above: Performed By: #### L BCL #### [facility] [address] [place] [address] Dr. Joe Shea UR MICRO IND INDICATED Normal [facility] Comment on above: Performed By: #### L BCL #### [facility] [address] [place] [address] Dr. Joe Shea Urobilinogen Qn (U) 2.0 {Pascual'U}/dL Abnormal 0.2 - 1. 0 [facility] Comment on above: Performed By: #### L BCLH #### [facility] [address] [place] [address] Dr. Joe Shea LIPASEon 10-28-2022 Lipase [Catalytic activity/Vol] 93.0 U/L Normal 73.0-393.0 [facility] Comment on above: Performed By: #### C MP, LIPA, NESTOR #### [facility] [address] [place] [address] Dr. Joe Shea URon 10-28-2022 , QUAL Negative Normal NEGATIVE [facility] Comment on above: Performed By: #### L BCLH #### [facility] [address] [place] [address] Dr. Joe Shea PROF 14(COMP METB)on 023 Albumin [Mass/Vol] 4.1 g/dL Normal 3.4-5.0 [facility] Comment on above: Performed By: #### C MP, LIPA, NESTOR #### [facility] [address] [place] [address] Dr. Joe Shea Albumin/Globulin [Mass ratio] 1.2 {ratio} Normal [facility] Comment on above: Performed By: #### C MP, LIPA, NESTOR #### [facility] [address] [place] [address] Dr. Joe Shea ALP [Catalytic activity/Vol] 60 U/L Normal 46-116 [facility] Comment on above: Performed By: #### C MP, LIPA, NESTRO #### [facility] [address] [place] [address] Dr. Joe Shea ALT [Catalytic activity/Vol] 22 U/L Normal 14-59 [facility] Comment on above: Performed By: #### C MP, LIPA, NESTOR #### [facility] [address] [place] [address] Dr. Joe Shea Anion gap [Moles/Vol] 10.2 mmol/L Normal [facility] Comment on above: Performed By: #### C MP, LIPA, NESTOR #### [facility] [address] [address] [address] Joe Shea AST [Catalytic activity/Vol] 14 U/L Critically low 15-37 [facility] Comment on above: Performed By: #### C MP, LIPA, NESTOR #### [facility] [address] [address] [address] Joe Shea Bilirubin [Mass/Vol] 0.5 mg/dL Normal 0.2-1.0 [facility] Comment on above: Performed By: #### C MP, LIPA, NESTOR #### [facility] [address] [address] [address] Joe Shea Calcium [Mass/Vol] 8.9 mg/dL Normal 8.5-10.1 [facility] Comment on above: Performed By: #### C MP, LIPA, NESTOR #### [facility] [address] [place] [address] Dr. Joe Shea Chloride [Moles/Vol] 103 mmol/L Normal 98-107 [facility] Comment on above: Performed By: #### C MP, LIPA, NESTOR #### [facility] [address] [address] [address] Joe Shea CO2 [Moles/Vol] 28.1 mmol/L Normal 21.0-32.0 [facility] Comment on above: Performed By: #### C MP, LIPA, NESTOR #### [facility] [address] [address] [address] Joe Shea Creatinine [Mass/Vol] 0.77 mg/dL Normal 0.55-1.02 [facility] Comment on above: Performed By: #### C MP, LIPA, NESTOR #### [facility] [address] [address] [address] Joe Shea EGFR-AF BOTSWANAN >60 Normal >=60 [facility] Comment on above: Performed By: #### C MP, LIPA, NESTOR #### [facility] [address] [address] [address] Joe Shea EGFR-NON AF BOTSWANAN >60 Normal >=60 [facility] Comment on above: Performed By: #### C MP, LIPA, NESTOR #### [facility] [address] [address] [address] Joe Shea Globulin (S) [Mass/Vol] 3.5 g/dL Normal T [facility] Comment on above: Performed By: #### C MP, LIPA, NESTOR #### [facility] [address] [address] [address] Joe Shea Glucose [Mass/Vol] 85 mg/dL Normal 74-106 [facility] Comment on above: Performed By: #### C MP, LIPA, NESTOR #### [facility] [address] [address] [address] Joe Shea Potassium [Moles/Vol] 3.3 mmol/L Critically low 3.5-5.1 [facility] Comment on above: Performed By: #### C MP, LIPA, NESTOR #### [facility] [address] [place] [address] Dr. Joe Shea Protein [Mass/Vol] 7.6 g/dL Normal 6.4-8.2 [facility] Comment on above: Performed By: #### C MP LIPA, NESTOR #### [facility] [address] [place] [address] Dr. Joe Shea Sodium [Moles/Vol] 138 mmol/L Normal 136-145 [facility] Comment on above: Performed By: #### C MP, LIPA, NESTOR #### [facility] [address] [address] [address] Joe Shea Urea nitrogen [Mass/Vol] 6.0 mg/dL Critically low 7.0-18. 0 [facility] Comment on above: Performed By: #### C MP, LIPA, NESTOR #### [facility] [address] [place] [address] Dr. Joe Shea Urea nitrogen/Creatinine [Mass ratio] 7.8 mg/mg Normal [facility] Comment on above: Performed By: #### C MP, LIPA, NESTOR #### [facility] [address] [place] [address] Dr. Joe Shea URINE MICROSCOPIC ONLYon BACTERIA NONE SEEN Normal NONE SEEN [facility] Comment on above: Performed By: #### L BCLH #### [facility] [address] [place] [address] Dr. Joe Shea Bacteria identified Cx Nom (U) NOT INDICATED Normal [facility] Comment on above: Performed By: #### L BCLH #### [facility] [address] [place] [address] Dr. Joe Shea CAST NONE SEEN Normal NONE SEEN [facility] Comment on above: Performed By: #### L BCLH #### [facility] [address] [place] [address] Dr. Joe Shea Crystals LM Nom (Urine sed) NONE SEEN Normal NONE SEEN [facility] Comment on above: Performed By: #### L BCLH #### [facility] [address] [place] [address] Dr. Joe Shea Epithelial cells LM Ql (Urine sed) FEW Abnormal NONE SEEN /RARE [facility] Comment on above: Performed By: #### L BCLH #### [facility] [address] [place] [address] Dr. Joe Shea MUCOUS NONE SEEN Normal NONE SEEN [facility] Comment on above: Performed By: #### L BCLH #### [facility] [address] [place] [address] Dr. Joe Shea RBC NONE SEEN Abnormal 0-2 [facility] Comment on above: Performed By: #### L BCLH #### [facility] [address] [place] [address] Dr. Joe Shea WBC 0-2 Abnormal NONE SEEN [facility] Comment on above: Performed By: #### L BCLH #### [facility] [address] [place] [address] Dr. Joe Shea LACTOFERRIN FECAL QUANTon Lactoferrin, Fecal, Quant. <1.00 Normal 0.00-7.24 [facility] Comment on above: Result Comment: Re [...] (IBS). Performed By: #### D TRESA #### [facility] [address] [address] [address] Joe Shea CALPROTECTIN, FECALon 2022 Calprotectin, Fecal 31 ug/g Normal 0-120 [facility] Comment on above: Result Comment: Conc entration Interpretation Follow-Up <16 - 50 ug/g Normal None >50 -120 ug/g Borderline Re-evaluate in 4-6 weeks >120 ug/g Abnormal Repeat as clinically indicated Performed By: #### C MP, LIPA, NESTOR #### [facility] [address] [place] [address] Dr. Joe Shea BOWEL DISORDERS EVALUATION R ULE-OUT CASCon 09-25-2022 Antigliadin 8 units Normal 0-19 [facility] Comment on above: Result Comment: Nega tive 0 - 19 Weak Positive 20 - 30 Moderate to Strong Positive >30 . Performed By: #### C BC #### [facility] [address] [place] [address] Dr. Joe Shea Atypical pANCA Negative Normal Negative [facility] Comment on above: Performed By: #### C BC #### [facility] [address] [address] [address] Joe Shea Note: Louisa continues Normal [facility] Comment on above: Performed By: #### C BC #### [facility] [address] [address] [address] Joe Shea Note: Comment Normal [facility] Comment on above: Result Comment: Sugg estive of irritable bowel syndrome (IBS). Careful evaluation of the patient's history, physical examination, and application of Forbes III diagnostic criteria may help to rule in or rule out the diagnosis of IBS. Subsequent testing for Fecal Calprotectin (824220) may be recommended. If IBD is strongly suspected, subsequent testing with the Crohn's Disease Prognostic Profile (462118) that includes anti- glycan antibodies AMCA, ALCA, ACCA, and Zulema may aid in differential diagnosis. Performed By: #### C BC #### [facility] [address] [place] [address] Dr. Joe Shea Saccharomyces Cer. IgG <20.0 Normal 0.0-24.9 [facility] Comment on above: Result Comment: Nega tive <20.0 Equivocal 20.1 - 24.9 Positive >or= 25.0 Performed By: #### C BC #### [facility] [address] [place] [address] Dr. Joe Shea tTG/DGP SCR Negative Normal Negative [facility] Comment on above: Result Comment: Ef fective September 21, 2022 this profile will be made non-orderable due to non-availability of reagents for tTG/DGP Combo. No replacement number is available at this time. For further information, please contact your local [facility] Packing Machine Tender. Performed By: #### C BC #### [facility] [address] [place] [address] Dr. Joe Shea CBC AUTO DIFFon 09-19-2022 BASO # 0.1 103/ul Normal 0.0-0.1 [facility] Comment on above: Performed By: #### D TRESA #### [facility] [address] [place] [address] Dr. Joe Shea Basophils/100 WBC (Bld) 0.9 % Normal 0.2-2.0 [facility] Comment on above: Performed By: #### D LUIS ARMANDOUL #### [facility] [address] [place] [address] Dr. Joe Shea EO # 0.2 103/ul Normal 0.0-0.7 [facility] Comment on above: Performed By: #### D LUIS ARMANDOUL #### [facility] [address] [place] [address] Dr. Joe Shea Eosinophils/100 WBC (Bld) 2.4 % Normal 0.9-7.0 [facility] Comment on above: Performed By: #### Althea GTZ #### [facility] [address] [place] [address] Dr. Joe Shea Erythrocyte distribution width (RBC) [Ratio] 13.2 % Normal 11.0-15.0 [facility] Comment on above: Performed By: #### Althea GTZ #### [facility] [address] [place] [address] Dr. Joe Shea Hematocrit (Bld) [Volume fraction] 38.3 % Normal 36.0-48.0 [facility] Comment on above: Performed By: #### Althea GTZ #### [facility] [address] [place] [address] Dr. Joe Shea Hemoglobin (Bld) [Mass/Vol] 12.3 g/dL Normal 12.0-16.0 [facility] Comment on above: Performed By: #### Althea GTZ #### [facility] [address] [place] [address] Dr. Joe Shea IG # 0.02 10e3/ul Normal 0.00-0.03 [facility] Comment on above: Performed By: #### Althea GTZ #### [facility] [address] [place] [address] Dr. Joe Shea IG % 0.3 % Normal 0.0-0.5 [facility] Comment on above: Performed By: #### Althea GTZ #### [facility] [address] [place] [address] Dr. Joe Shea LYMPH # 1.7 103/ul Normal 1.2-3.8 [facility] Comment on above: Performed By: #### Althea GTZ #### [facility] [address] [place] [address] Dr. Jeo Shea Lymphocytes/100 WBC (Bld) 24.6 % Normal 20.5-60.0 [facility] Comment on above: Performed By: #### Althea GTZ #### [facility] [address] [place] [address] Dr. Joe Shea MANUAL DIFF REQ NO Normal [facility] Comment on above: Performed By: #### Althea GTZ #### [facility] [address] [address] [address] Joe Shea MCH (RBC) [Entitic mass] 28.1 pg Normal 26.7-34.0 [facility] Comment on above: Performed By: #### Althea GTZ #### [facility] [address] [place] [address] Dr. Joe Shea MCHC (RBC) [Mass/Vol] 32.1 g/dL Normal 29.9-35.2 [facility] Comment on above: Performed By: #### Althea GTZ #### [facility] [address] [place] [address] Dr. Joe Shea MCV (RBC) [Entitic vol] 87.6 fL Normal 81.0-99.0 [facility] Comment on above: Performed By: #### Althea GTZ #### [facility] [address] [place] [address] Dr. Joe Shea MONO # 0.4 103/ul Normal 0.3-0.8 [facility] Comment on above: Performed By: #### Althea GTZ #### [facility] Laboratory [address] [place] [address] Dr. Joe Shea Monocytes/100 WBC (Bld) 5.5 % Normal 1.7-12.0 [facility] Comment on above: Performed By: #### Althea GTZ #### [facility] [address] [place] [address] Dr. Joe Shea NEUT # 4.7 103/ul Normal 1.4-6.5 [facility] Comment on above: Performed By: #### Althea GTZ #### [facility] [address] [place] [address] Dr. Joe Shea Neutrophils/100 WBC (Bld) 66.3 % Normal 43.0-75.0 [facility] Comment on above: Performed By: #### Althea GTZ #### [facility] [address] [place] [address] Dr. Joe Shea Platelet mean volume (Bld) [Entitic vol] 11.4 fL Normal 9.5-13.5 [facility] Comment on above: Performed By: #### Althea GTZ #### [facility] [address] [place] [address] Dr. Joe Shea PLT 275 103/ul Normal 150-450 [facility] Comment on above: Performed By: #### Althea GTZ #### [facility] [address] [place] [address] Dr. Joe Shea RBC 4.37 106/ul Normal 4.20-5.40 [facility] Comment on above: Performed By: #### Althea GTZ #### [facility] [address] [place] [address] Dr. Joe Shea WBC 7.0 103/ul Normal 4.0-11.0 [facility] Comment on above: Performed By: #### Althea GTZ #### [facility] [address] [place] [address] Dr. Joe Shea PROF 14(COMP METB)on 023 Albumin [Mass/Vol] 4.4 g/dL Normal 3.4-5.0 [facility] Comment on above: Performed By: #### L DAIN #### [facility] [address] [place] [address] Dr. Joe Shea Albumin/Globulin [Mass ratio] 1.4 {ratio} Normal [facility] Comment on above: Performed By: #### L BCLShyla #### [facility] [address] [place] [address] Dr. Joe Shea ALP [Catalytic activity/Vol] 51 U/L Normal 46-116 [facility] Comment on above: Performed By: #### L BCLShyla #### [facility] [address] [place] [address] Dr. Joe Shea ALT [Catalytic activity/Vol] 20 U/L Normal 14-59 [facility] Comment on above: Performed By: #### L DAIN #### [facility] [address] [place] [address] Dr. Joe Shea Anion gap [Moles/Vol] 11.7 mmol/L Normal Th [facility] Comment on above: Performed By: #### L BCLH #### [facility] [address] [place] [address] Dr. Joe Shea AST [Catalytic activity/Vol] 17 U/L Normal 15-37 [facility] Comment on above: Performed By: #### L BCLH #### [facility] [address] [address] [address] Joe Shea Bilirubin [Mass/Vol] 0.4 mg/dL Normal 0.2-1.0 [facility] Comment on above: Performed By: #### L BCLH #### [facility] [address] [place] [address] Dr. Joe Shea Calcium [Mass/Vol] 9.3 mg/dL Normal 8.5-10.1 [facility] Comment on above: Performed By: #### L BCLH #### [facility] [address] [place] [address] Dr. Joe Shea Chloride [Moles/Vol] 104 mmol/L Normal 98-107 [facility] Comment on above: Performed By: #### L BCLH #### [facility] [address] [place] [address] Dr. Joe Shea CO2 [Moles/Vol] 28.5 mmol/L Normal 21.0-32.0 [facility] Comment on above: Performed By: #### L BCLH #### [facility] [address] [place] [address] Dr. Joe Shea Creatinine [Mass/Vol] 0.55 mg/dL Normal 0.55-1.02 [facility] Comment on above: Performed By: #### L BCLH #### [facility] [address] [place] [address] Dr. Joe Shea EGFR-AF BOTSWANAN >60 Normal >=60 [facility] Comment on above: Performed By: #### L BCLH #### [facility] [address] [place] [address] Dr. Joe Shea EGFR-NON AF BOTSWANAN >60 Normal >=60 [facility] Comment on above: Performed By: #### L BCLH #### [facility] [address] [address] [address] Joe Shea Globulin (S) [Mass/Vol] 3.1 g/dL Normal [facility] Comment on above: Performed By: #### L BCLH #### [facility] [address] [address] [address] Joe Shea Glucose [Mass/Vol] 90 mg/dL Normal 74-106 [facility] Comment on above: Performed By: #### L BCLH #### [facility] [address] [address] [address] Joe Shea Potassium [Moles/Vol] 4.2 mmol/L Normal 3.5-5.1 [facility] Comment on above: Performed By: #### L BCLH #### [facility] [address] [address] [address] Joe Shea Protein [Mass/Vol] 7.5 g/dL Normal 6.4-8.2 [facility] Comment on above: Performed By: #### L BCLH #### [facility] [address] [address] [address] Joe Shea Sodium [Moles/Vol] 140 mmol/L Normal 136-145 [facility] Comment on above: Performed By: #### L BCLH #### [facility] [address] [address] [address] Joe Shea Urea nitrogen [Mass/Vol] 6.0 mg/dL Critically low 7.0-18. 0 [facility] Comment on above: Performed By: #### L BCLH #### [facility] [address] [address] [address] Joe Shea Urea nitrogen/Creatinine [Mass ratio] 10.9 mg/mg Normal [facility] Comment on above: Performed By: #### L BCLH #### [facility] [address] [address] [address] Joe Shea PROTIMEon 09-19-2022 INR Coag (PPP) [Relative time] 1.08 {INR} Normal [facility] Comment on above: Performed By: #### L BCL #### [facility] [address] [place] [address] Dr. Joe Shea INR GUIDELINES SEE BELOW Normal [facility] Comment on above: Result Comment: CHICA RED INR: 2.0 - 3.0 CONDITIONS NOT LISTED BELOW 2.5 - 3.5 FOR PROSTHETIC HEART VALVE REPLACEMENT 2.5 - 3.5 RECURRENT THROMBOSIS Performed By: #### L BARRY #### [facility] [address] [address] [address] Joe Shea PT Coag (PPP) [Time] 11.4 s Normal 9.0-11.6 [facility] Comment on above: Performed By: #### L BARRY #### [facility] [address] [place] [address] Dr. Joe Shea TSHon 09-19-2022 TSH 0.957 uIU/mL Normal 0.358-3.740 [facility] Comment on above: Performed By: #### [facility] #### [facility] [address] [place] [address] Dr. Joe Shea Pre-Certification Formon Pre-Certification Form [id number] 269#1.00CD:127 Normal [facility] Consent for Procedure/Surger yon 07-23-2022 Consent for Procedure/Surgery [id number]#[id number]:127 Normal [facility] Facesheeton 07-19-2022 Facesheet [id number] 71#[id number]:127 Normal [facility] CBC AUTO DIFFon 07-06-2022 BASO # 0.1 103/ul Normal 0.0-0.1 [facility] Comment on above: Performed By: #### C MP, LIPA, NESTOR #### [facility] [address] [place] [address] Dr. Joe Shea Basophils/100 WBC (Bld) 0.8 % Normal 0.2-2.0 T [facility] Comment on above: Performed By: #### C CARLYN DE JESUS AMY #### [facility] [address] [place] [address] Dr. Joe Shea EO # 0.4 103/ul Normal 0.0-0.7 [facility] Comment on above: Performed By: #### C CARLYN DE JESUS NESTOR #### [facility] [address] [place] [address] Dr. Joe Shea Eosinophils/100 WBC (Bld) 4.2 % Normal 0.9-7.0 [facility] Comment on above: Performed By: #### C CARLYN DE JESUS AMY #### [facility] [address] [place] [address] Dr. Joe Shea Erythrocyte distribution width (RBC) [Ratio] 13.5 % Normal 11.0-15.0 [facility] Comment on above: Performed By: #### C CARLYN DE JESUS NESTOR #### [facility] [address] [place] [address] Dr. Joe Shea Hematocrit (Bld) [Volume fraction] 36.8 % Normal 36.0-48.0 [facility] Comment on above: Performed By: #### C CARLYN DE JESUS AMY #### [facility] [address] [place] [address] Dr. Joe Shea Hemoglobin (Bld) [Mass/Vol] 12.2 g/dL Normal 12.0-16.0 [facility] Comment on above: Performed By: #### C CARLYN DE JESUS, NESTOR #### [facility] [address] [place] [address] Dr. Joe Shea IG # 0.02 10e3/ul Normal 0.00-0.03 [facility] Comment on above: Performed By: #### C CARLYN DE JESUS, NESTOR #### [facility] [address] [place] [address] Dr. Joe Shea IG % 0.2 % Normal 0.0-0.5 [facility] Comment on above: Performed By: #### C MP, LIPA, NESTOR #### [facility] [address] [address] [address] Joe Shea LYMPH # 2.1 103/ul Normal 1.2-3.8 [facility] Comment on above: Performed By: #### C MP, LIPA, NESTOR #### [facility] [address] [address] [address] Joe Shea Lymphocytes/100 WBC (Bld) 20.3 % Critically low 20.5-6 0.0 [facility] Comment on above: Performed By: #### C MP, LIPA, NESTOR #### [facility] [address] [place] [address] Dr. Joe Shea MANUAL DIFF REQ NO Normal [facility] Comment on above: Performed By: #### C MP, LIPA, NESTOR #### [facility] [address] [place] [address] Dr. Joe Shea MCH (RBC) [Entitic mass] 28.6 pg Normal 26.7-34.0 [facility] Comment on above: Performed By: #### C MP, LIPA, NESTOR #### [facility] [address] [place] [address] Dr. Joe Shea MCHC (RBC) [Mass/Vol] 33.2 g/dL Normal 29.9-35.2 [facility] Comment on above: Performed By: #### C MP, LIPA, NESTOR #### [facility] [address] [place] [address] Dr. Joe Shea MCV (RBC) [Entitic vol] 86.4 fL Normal 81.0-99.0 [facility] Comment on above: Performed By: #### C MP, LIPA, NESTOR #### [facility] [address] [place] [address] Dr. Joe Shea MONO # 0.6 103/ul Normal 0.3-0.8 [facility] Comment on above: Performed By: #### C MP, LIPA, NESTOR #### [facility] [address] [place] [address] Dr. Joe Shea Monocytes/100 WBC (Bld) 5.5 % Normal 1.7-12.0 T [facility] Comment on above: Performed By: #### C CARLYN DE JESUS NESTOR #### [facility] [address] [place] [address] Dr. Joe Shea NEUT # 7.2 103/ul Critically high 1.4-6.5 [facility] Comment on above: Performed By: #### C CARLYN DE JESUS, NESTOR #### [facility] [address] [place] [address] Dr. Joe Shea Neutrophils/100 WBC (Bld) 69.0 % Normal 43.0-75.0 [facility] Comment on above: Performed By: #### C CARLYN DE JESUS NESTOR #### [facility] [address] [place] [address] Dr. Joe Shea Platelet mean volume (Bld) [Entitic vol] 10.8 fL Normal 9.5-13.5 [facility] Comment on above: Performed By: #### C CARLYN DE JESUS NESTOR #### [facility] [address] [place] [address] Dr. Joe Shea PLT 316 103/ul Normal 150-450 [facility] Comment on above: Performed By: #### C CARLYN DE JESUS, NESTOR #### [facility] [address] [place] [address] Dr. Joe Shea RBC 4.26 106/ul Normal 4.20-5.40 [facility] Comment on above: Performed By: #### C CARLYN DE JESUS, NESTOR #### [facility] [address] [place] [address] Dr. Joe Shea WBC 10.4 103/ul Normal 4.0-11.0 [facility] Comment on above: Performed By: #### C CARLYN DE JESUS, NESTOR #### [facility] [address] [place] [address] Dr. Joe Shea PREG QUANT HCGon 07-06-2022 HCG QUANT <1 Normal [facility] Comment on above: Performed By: #### C CARLYN DE JESUS, NESTOR #### [facility] [address] [place] [address] Dr. Joe Shea HCG RANGE SEE BELOW Normal [facility] Comment on above: Result Comment: 5-50 0.2-1 WEEK 50-500 1-2 WEEKS 100-5,000 2-3 WEEKS 500-10,000 3-4 WEEKS 1,000-50,000 4-5 WEEKS 10,000-100,000 5-6 WEEKS 15,000-200,000 6-8 WEEKS 10,000-100,000 2-3 MONTHS Performed By: #### C CARLYN DE JESUS AMY #### [facility] [address] [place], [place] [address] Dr. Joe Shea HEPATITIS C ANTIBODYon 06-26 Hep C Virus Ab <0.1 Normal 0.0-0.[address] [facility] Comment on above: Result Comment: [...] Hepatitis C Virus (HCV) RNA, Diagnosis, MEGAN (650351) and Hepatitis C Virus (HCV) Antibody with reflex to Quantitative Real-time PCR ([id number]). Performed By: #### [facility] #### [facility] [address] [place], [place] [address] Dr. Joe Shea Covid-19 PCR (CVDTB)on 05-31 SARS-CoV-2 (COVID-19) RNA MEGAN+probe Ql (Unsp spec) Not detected Normal NOT DETECTED [facility] Comment on above: Result Comment: This test is not yet approved or cleared by the [place] FDA. When there are no FDA-approved or cleared tests available, and other criteria are met, FDA can make tests available under an emergency access mechanism called an Emergency Use Authorization (EUA). The EUA for this test is supported by the [place] of Health and Human Service's (HHS's) declaration [...] SARS-CoV-2. Performed By: #### C VDTB #### [facility] [address] [place] [address] Dr. Joe Shea HEP B SURFACE ANTIGEN SCREEN on 06-12-2022 HBsAg Screen Negative Normal Negative [facility] Comment on above: Performed By: #### D HEASMARICRUZ #### [facility] [address] [place] [address] Dr. Joe Shea HIV 1 AND 2 WITH REFLEXon HIV Screen 4th Generation wRfx Non-Reactive Normal Non Reactive [facility] Comment on above: Result Comment: HIV Negative HIV-1/HIV-2 antibodies and HIV-1 p24 antigen were NOT detected. There is no laboratory evidence of HIV infection. Performed By: #### C MP, LIPA, NESTOR #### [facility] [address] [place] [address] Dr. Joe Shea RPR QUANTon 06-12-2022 Rapid Plasma Reagin, Quant Non-Reactive Normal NonRea< 1:1 [facility] Comment on above: Result Comment: Plea se Note: This test does not meet current guidelines for screening and diagnosis of syphilis. This test is intended for following treatment response in patients being treated for syphilis infection. To screen for syphilis infection, a reflex cascade that includes both RPR and a treponema-specific assay should be utilized, such as Treponema pallidum (Syphilis) Screening [place] (510183) or Rapid Plasma Reagin (RPR) Test With Reflex to Quantitative RPR and Confirmatory Treponema pallidum Antibodies (538703). Performed By: #### C MP, LIPA, NESTOR #### [facility] [address] [place] [address] Dr. Joe Shea Physician Referralon 022 Physician Referral [id number]#[id number]:127 Normal [facility] US PELVIS AND TRANSVAGon US PELVIS [...] ANGIE MEJIA Date: 2022-05-31 17:18 Normal [facility] AMYLASEon 05-23-2022 Amylase [Catalytic activity/Vol] 24 U/L Critically low 25-115 [facility] Comment on above: Performed By: #### C CARLYN DE JESUS AMY #### [facility] [address] [place] [address] Dr. Joe Shea CBC AUTO DIFFon 05-23-2022 Eosinophils/100 WBC (Bld) 1.5 % Normal 0.9-7.0 [facility] Comment on above: Performed By: #### L BCL #### [facility] [address] [place] [address] Dr. Joe Shea Erythrocyte distribution width (RBC) [Ratio] 13.5 % Normal 11.0-15.0 [facility] Comment on above: Performed By: #### L BCL #### [facility] [address] [place] [address] Dr. Joe Shea Hematocrit (Bld) [Volume fraction] 33.0 % Critically low 36.0-48.0 [facility] Comment on above: Performed By: #### L BCLH #### [facility] [address] [address] [address] Joe Shea Hemoglobin (Bld) [Mass/Vol] 10.7 g/dL Critically low 12.0-16.0 [facility] Comment on above: Performed By: #### L BCLH #### [facility] [address] [place] [address] Dr. Joe Shea LYMPH # 1.2 103/ul Normal 1.2-3.8 [facility] Comment on above: Performed By: #### L BCLH #### [facility] [address] [place] [address] Dr. Joe Shea Lymphocytes/100 WBC (Bld) 20.2 % Critically low 20.5-6 0.0 [facility] Comment on above: Performed By: #### L BCLH #### [facility] [address] [place] [address] Dr. Joe Shea MCH (RBC) [Entitic mass] 28.0 pg Normal 26.7-34.0 [facility] Comment on above: Performed By: #### L BCLH #### [facility] [address] [place] [address] Dr. oJe Shea MCHC (RBC) [Mass/Vol] 32.4 g/dL Normal 29.9-35.2 [facility] Comment on above: Performed By: #### L BCLH #### [facility] [address] [place] [address] Dr. Joe Shea Monocytes/100 WBC (Bld) 7.9 % Normal 1.7-12.0 [facility] Comment on above: Performed By: #### L BCLH #### [facility] [address] [place] [address] Dr. Joe Shea Neutrophils/100 WBC (Bld) 69.9 % Normal 43.0-75.0 [facility] Comment on above: Performed By: #### L BCLH #### [facility] [address] [place] [address] Dr. Joe Shea Platelet mean volume (Bld) [Entitic vol] 10.6 fL Normal 9.5-13.5 [facility] Comment on above: Performed By: #### L BCLH #### [facility] [address] [place] [address] Dr. Joe Shea PLT 233 103/ul Normal 150-450 [facility] Comment on above: Performed By: #### L BCLH #### [facility] [address] [place] [address] Dr. Joe Shea RBC 3.82 106/ul Critically low 4.20-5.40 [facility] Comment on above: Performed By: #### L BCLH #### [facility] [address] [place] [address] Dr. Joe Shea WBC 6.1 103/ul Normal 4.0-11.0 [facility] Comment on above: Performed By: #### L BCLH #### [facility] [address] [place] [address] Dr. Joe Shea BASO # 0.0 103/ul Normal 0.0-0.1 [facility] Comment on above: Performed By: #### L BCLH #### [facility] [address] [place] [address] Dr. Joe Shea Performed By: #### C CARLYN DE JESUS AMY #### [facility] [address] [place] [address] Dr. Joe Shea Basophils/100 WBC (Bld) 0.3 % Normal 0.2-2.0 [facility] Comment on above: Performed By: #### L BCLH #### [facility] [address] [place] [address] Dr. Joe Shea Performed By: #### C CARLYN DE JESUS, NESTOR #### [facility] [address] [place] [address] Dr. Joe Shea EO # 0.1 103/ul Normal 0.0-0.7 [facility] Comment on above: Performed By: #### L BCLH #### [facility] [address] [place] [address] Dr. Joe Shea Performed By: #### C MP LIPA, NESTOR #### [facility] [address] [place] [address] Dr. Jeo Shea Eosinophils/100 WBC (Bld) 1.9 % Normal 0.9-7.0 [facility] Comment on above: Performed By: #### C MP, LIPA, NESTOR #### [facility] [address] [place] [address] Dr. Joe Shea Erythrocyte distribution width (RBC) [Ratio] 13.4 % Normal 11.0-15.0 [facility] Comment on above: Performed By: #### C MP LIPA, NESTOR #### [facility] [address] [place] [address] Dr. Joe Seha Hematocrit (Bld) [Volume fraction] 32.3 % Critically low 36.0-48.0 [facility] Comment on above: Performed By: #### C MP LIPA, NESTOR #### [facility] [address] [place] [address] Dr. Joe Shea Hemoglobin (Bld) [Mass/Vol] 10.6 g/dL Critically low 12.0-16.0 [facility] Comment on above: Performed By: #### C NEAL LIPA, NESTOR #### [facility] [address] [place] [address] Dr. Joe Shea IG # 0.01 10e3/ul Normal 0.00-0.03 [facility] Comment on above: Performed By: #### L BCL #### [facility] [address] [place] [address] Dr. Joe Shea Performed By: #### C MP LIPA, NESTOR #### [facility] [address] [place] [address] Dr. Joe Shea IG % 0.2 % Normal 0.0-0.5 [facility] Comment on above: Performed By: #### L BCLH #### [facility] [address] [place] [address] Dr. Joe Shea Performed By: #### C NEAL LIPA, NESTOR #### [facility] [address] [place] [address] Dr. Joe Shea LYMPH # 1.0 103/ul Critically low 1.2-3.[address] [facility] Comment on above: Performed By: #### C MP LIPA, NESTOR #### [facility] [address] [place] [address] Dr. Joe Shea Lymphocytes/100 WBC (Bld) 16.6 % Critically low 20.5-6 0.0 [facility] Comment on above: Performed By: #### C MP, LIPA, NESTOR #### [facility] [address] [place] [address] Dr. Joe Shea MANUAL DIFF REQ NO Normal [facility] Comment on above: Performed By: #### L BCLH #### [facility] [address] [place] [address] Dr. Joe Shea Performed By: #### C MP LIPA, NESTOR #### [facility] [address] [place] [address] Dr. Joe Shea MCH (RBC) [Entitic mass] 28.3 pg Normal 26.7-34.0 [facility] Comment on above: Performed By: #### C MP LIPA, NESTOR #### [facility] [address] [place] [address] Dr. Joe Shea MCHC (RBC) [Mass/Vol] 32.8 g/dL Normal 29.9-35.2 [facility] Comment on above: Performed By: #### C MP LIPA, NESTOR #### [facility] [address] [place] [address] Dr. Joe Shea MCV (RBC) [Entitic vol] 86.4 fL Normal 81.0-99.0 [facility] Comment on above: Performed By: #### L BCLH #### [facility] [address] [place] [address] Dr. Joe Shea Performed By: #### C MP, LIPA, NESTOR #### [facility] [address] [place] [address] Dr. Joe Shea MONO # 0.5 103/ul Normal 0.3-0.8 [facility] Comment on above: Performed By: #### L BCL #### [facility] [address] [place] [address] Dr. Joe Shea Performed By: #### C CARLYN DE JESUS, NESTOR #### [facility] [address] [place] [address] Dr. Joe Shea Monocytes/100 WBC (Bld) 9.1 % Normal 1.7-12.0 [facility] Comment on above: Performed By: #### C NEAL LIPA, NESTOR #### [facility] [address] [place] [address] Dr. Joe Shea NEUT # 4.3 103/ul Normal 1.4-6.5 [facility] Comment on above: Performed By: #### L BCL #### [facility] [address] [place] [address] Dr. Joe Shea Performed By: #### C HUGO DE JESUSA, NESTOR #### [facility] [address] [place] [address] Dr. Joe Shea Neutrophils/100 WBC (Bld) 71.9 % Normal 43.0-75.0 [facility] Comment on above: Performed By: #### C HUGO DE JESUSA, NESTOR #### [facility] [address] [place] [address] Dr. Joe Shea Platelet mean volume (Bld) [Entitic vol] 11.0 fL Normal 9.5-13.5 [facility] Comment on above: Performed By: #### C NEAL LIPA, NESTOR #### [facility] [address] [place] [address] Dr. Joe Shea PLT 224 103/ul Normal 150-450 [facility] Comment on above: Performed By: #### C HUGO DE JESUSA, NESTOR #### [facility] [address] [place] [address] Dr. Joe Shea RBC 3.74 106/ul Critically low 4.20-5.40 [facility] Comment on above: Performed By: #### C NEAL LIPA, NESTOR #### [facility] [address] [place] [address] Dr. Joe Shea WBC 5.9 103/ul Normal 4.0-11.0 [facility] Comment on above: Performed By: #### C CARLYN DE JESUS AMY #### [facility] [address] [place] [address] Dr. Joe MOORE URINE PROFILEon 2 Bilirubin Ql (U) Negative Normal NEGATIVE [facility] Comment on above: Performed By: #### L BCLH #### [facility] [address] [place] [address] Dr. Joe Shea Clarity (U) CLEAR Normal CLEAR [facility] Comment on above: Performed By: #### L BCLH #### [facility] [address] [place] [address] Dr. Joe Shea Color (U) LT. YELLOW Normal YELLOW [facility] Comment on above: Performed By: #### L BCL #### [facility] [address] [place] [address] Dr. Joe YUNG A micrscopic examination will be performed if indicated. Normal [facility] Comment on above: Performed By: #### L BCL #### [facility] [address] [place] [address] Dr. Joe Shea Glucose Ql (U) Negative Normal NEGATIVE The [facility] Comment on above: Performed By: #### L BCLH #### [facility] [address] [place] [address] Dr. Joe Shea Hemoglobin Ql (U) Negative Normal NEGATIVE [facility] Comment on above: Performed By: #### L BCLH #### [facility] [address] [place] [address] Dr. Joe Shea Ketones Ql (U) Negative Normal NEGATIVE [facility] Comment on above: Performed By: #### L BCLH #### [facility] [address] [place] [address] Dr. Joe Shea LEUKOCYTES Negative Normal NEGATIVE [facility] Comment on above: Performed By: #### L BCLH #### [facility] [address] [place] [address] Dr. Joe Shea Nitrite Ql (U) Negative Normal NEGATIVE [facility] Comment on above: Performed By: #### L BCL #### [facility] [address] [place] [address] Dr. Joe Shea pH (U) 5.5 [pH] Normal 5-9 [facility] Comment on above: Performed By: #### L BCL #### [facility] [address] [address] [address] Joe Shea SPEC GRAVITY 1.020 Normal 1.005-<=1.02 5 [facility] Comment on above: Performed By: #### L BCL #### [facility] [address] [place] [address] Dr. Joe Shea UA PROTEIN Negative Normal NEGATIVE/ TRACE [facility] Comment on above: Performed By: #### L BCL #### [facility] [address] [place] [address] Dr. Joe Shea UR MICRO IND NOT INDICATED Normal [facility] Comment on above: Performed By: #### L BARRY #### [facility] [address] [place] [address] Dr. Joe Shea Urobilinogen Qn (U) 0.2 {Pascual'U}/dL Normal 0.2 - 1. 0 [facility] Comment on above: Performed By: #### L BCL #### [facility] [address] [place] [address] Dr. Joe Shea LIPASEon 05-23-2022 Lipase [Catalytic activity/Vol] 63.0 U/L Critically low 73.0-393.0 [facility] Comment on above: Performed By: #### C MP, LIPA, NESTOR #### [facility] [address] [place] [address] Dr. Joe Shea URon 05-23-2022 , QUAL Negative Normal NEGATIVE [facility] Comment on above: Performed By: #### C #### [facility] [address] [place] [address] Dr. Joe Shea PROF 14(COMP METB)on 022 Albumin [Mass/Vol] 3.7 g/dL Normal 3.4-5.0 [facility] Comment on above: Performed By: #### C CARLYN DE JESUS, NESTOR #### [facility] [address] [place] [address] Dr. Joe Shea Albumin/Globulin [Mass ratio] 1.4 {ratio} Normal [facility] Comment on above: Performed By: #### C CARLYN DE JESUS, NESTOR #### [facility] [address] [place] [address] Dr. Joe Shea ALP [Catalytic activity/Vol] 44 U/L Critically low 46-116 [facility] Comment on above: Performed By: #### C CARLYN DE JESUS, NESTOR #### [facility] [address] [place] [address] Dr. Joe Shea ALT [Catalytic activity/Vol] 24 U/L Normal 14-59 [facility] Comment on above: Performed By: #### C CARLYN DE JESUS, NESTOR #### [facility] [address] [place] [address] Dr. Joe Shea Anion gap [Moles/Vol] 9.1 mmol/L Normal [facility] Comment on above: Performed By: #### C CARLYN DE JESUS, NESTOR #### [facility] [address] [place] [address] Dr. Joe Shea AST [Catalytic activity/Vol] 18 U/L Normal 15-37 [facility] Comment on above: Performed By: #### C CARLYN DE JESUS, NESTOR #### [facility] [address] [place] [address] Dr. Joe Shea Bilirubin [Mass/Vol] 0.2 mg/dL Normal 0.2-1.0 [facility] Comment on above: Performed By: #### C CARLYN DE JESUS, NESTOR #### [facility] [address] [place] [address] Dr. Joe Shea Calcium [Mass/Vol] 8.3 mg/dL Critically low 8.5-10.1 [facility] Comment on above: Performed By: #### C CARLYN DE JESUS, NESTOR #### [facility] [address] [address] [address] Joe Shea Chloride [Moles/Vol] 105 mmol/L Normal 98-107 [facility] Comment on above: Performed By: #### C MP, LIPA, NESTOR #### [facility] [address] [address] [address] Joe Shea CO2 [Moles/Vol] 29.7 mmol/L Normal 21.0-32.0 [facility] Comment on above: Performed By: #### C MP, LIPA, NESTOR #### [facility] [address] [address] [address] Joe Shea Creatinine [Mass/Vol] 0.61 mg/dL Normal 0.55-1.02 [facility] Comment on above: Performed By: #### C MP, LIPA, NESTOR #### [facility] [address] [place] [address] Dr. Joe Shea EGFR-AF BOTSWANAN >60 Normal >=60 [facility] Comment on above: Performed By: #### C MP, LIPA, NESTOR #### [facility] [address] [place] [address] Dr. Joe Shea EGFR-NON AF BOTSWANAN >60 Normal >=60 [facility] Comment on above: Performed By: #### C MP, LIPA, NESTOR #### [facility] [address] [place] [address] Dr. Joe Shea Globulin (S) [Mass/Vol] 2.6 g/dL Normal [facility] Comment on above: Performed By: #### C MP, LIPA, NESTOR #### [facility] [address] [place] [address] Dr. Joe Shea Glucose [Mass/Vol] 92 mg/dL Normal 74-106 [facility] Comment on above: Performed By: #### C MP, LIPA, NESTOR #### [facility] [address] [address] [address] Joe Shea Potassium [Moles/Vol] 3.8 mmol/L Normal 3.5-5.1 [facility] Comment on above: Performed By: #### C MP, LIPA, NESTOR #### [facility] [address] [address] [address] Joe Shea Protein [Mass/Vol] 6.3 g/dL Critically low 6.4-8.2 [facility] Comment on above: Performed By: #### C MP, LIPA, NESTOR #### [facility] [address] [address] [address] Joe Shea Sodium [Moles/Vol] 140 mmol/L Normal 136-145 [facility] Comment on above: Performed By: #### C MP LIPA, NESTOR #### [facility] [address] [address] [address] Joe Shea Urea nitrogen [Mass/Vol] 9.0 mg/dL Normal 7.0-18.0 [facility] Comment on above: Performed By: #### C NEAL LIPA, NESTOR #### [facility] [address] [address] [address] Joe Shea Urea nitrogen/Creatinine [Mass ratio] 14.8 mg/mg Normal [facility] Comment on above: Performed By: #### C NEAL LIPA, NESTOR #### [facility] [address] [place] [address] Dr. Joe Shea US SINGLE QUAD RT [...] SHIRLEY PATEL Date: 2022-05-23 08:29 Normal [facility] AMYLASEon 05-22-2022 Amylase [Catalytic activity/Vol] 50 U/L Normal 25-115 [facility] Comment on above: Performed By: #### A MY, CMP, LIPA #### [facility] [address] [place] [address] Dr. Joe Shea CBC AUTO DIFFon 05-22-2022 BASO # 0.1 103/ul Normal 0.0-0.1 [facility] Comment on above: Performed By: #### C MP, LIPA, NESTOR #### [facility] [address] [place] [address] Dr. Joe Shea Basophils/100 WBC (Bld) 0.3 % Normal 0.2-2.0 [facility] Comment on above: Performed By: #### C MP, LIPA, NESTOR #### [facility] [address] [place] [address] Dr. Joe Shea EO # 0.0 103/ul Normal 0.0-0.7 [facility] Comment on above: Performed By: #### C MP, LIPA, NESTOR #### [facility] [address] [place] [address] Dr. Joe Shea Eosinophils/100 WBC (Bld) 0.2 % Critically low 0.9-7. 0 [facility] Comment on above: Performed By: #### C MP, LIPA, NESTOR #### [facility] [address] [place] [address] Dr. Joe Shea Erythrocyte distribution width (RBC) [Ratio] 13.3 % Normal 11.0-15.0 [facility] Comment on above: Performed By: #### C MP, LIPA, NESTOR #### [facility] [address] [place] [address] Dr. Joe Shea Hematocrit (Bld) [Volume fraction] 39.0 % Normal 36.0-48.0 [facility] Comment on above: Performed By: #### C MP, LIPA, NESTOR #### [facility] [address] [address] [address] Joe Shea Hemoglobin (Bld) [Mass/Vol] 12.7 g/dL Normal 12.0-16.0 [facility] Comment on above: Performed By: #### C MP, LIPA, NESTOR #### [facility] [address] [place] [address] Dr. Joe Shea IG # 0.05 10e3/ul Critically high 0.00-0.03 [facility] Comment on above: Performed By: #### C MP, LIPA, NESTOR #### [facility] [address] [place] [address] Dr. Joe Shea IG % 0.3 % Normal 0.0-0.5 [facility] Comment on above: Performed By: #### C MP, LIPA, NESTOR #### [facility] [address] [place] [address] Dr. Joe Shea LYMPH # 0.8 103/ul Critically low 1.2-3.8 [facility] Comment on above: Performed By: #### C MP, LIPA, NESTOR #### [facility] [address] [place] [address] Dr. Joe Shea Lymphocytes/100 WBC (Bld) 4.4 % Critically low 20.5-6 0.0 [facility] Comment on above: Performed By: #### C MP, LIPA, NESTOR #### [facility] [address] [place] [address] Dr. Joe Shea MANUAL DIFF REQ NO Normal [facility] Comment on above: Performed By: #### C MP, LIPA, NESTOR #### [facility] [address] [place] [address] Dr. Joe Shea MCH (RBC) [Entitic mass] 28.1 pg Normal 26.7-34.0 [facility] Comment on above: Performed By: #### C MP, LIPA, NESTOR #### [facility] [address] [place] [address] Dr. Joe Shea MCHC (RBC) [Mass/Vol] 32.6 g/dL Normal 29.9-35.2 [facility] Comment on above: Performed By: #### C NEAL LIPA, NESTOR #### [facility] [address] [place] [address] Dr. Joe Shea MCV (RBC) [Entitic vol] 86.3 fL Normal 81.0-99.0 [facility] Comment on above: Performed By: #### C NEAL LIPA, NESTOR #### [facility] [address] [place] [address] Dr. Joe Shea MONO # 0.4 103/ul Normal 0.3-0.8 [facility] Comment on above: Performed By: #### C NEAL LIPA, NESTOR #### [facility] [address] [place] [address] Dr. Joe Shea Monocytes/100 WBC (Bld) 2.2 % Normal 1.7-12.0 [facility] Comment on above: Performed By: #### C NEAL LIPA, NESTOR #### [facility] [address] [place] [address] Dr. Joe Shea NEUT # 16.7 103/ul Critically high 1.4-6.5 [facility] Comment on above: Performed By: #### C NEAL LIPA, NESTOR #### [facility] [address] [place] [address] Dr. Joe Shea Neutrophils/100 WBC (Bld) 92.6 % Critically high 43.0- 75.0 [facility] Comment on above: Performed By: #### C MP LIPA, NESTOR #### [facility] [address] [place] [address] Dr. Joe Shea Platelet mean volume (Bld) [Entitic vol] 11.0 fL Normal 9.5-13.5 [facility] Comment on above: Performed By: #### C MP LIPA, NESTOR #### [facility] [address] [place] [address] Dr. Joe Shea PLT 323 103/ul Normal 150-450 [facility] Comment on above: Performed By: #### C NEAL LIPA, NESTOR #### [facility] [address] [place] [address] Dr. Joe Shea RBC 4.52 106/ul Normal 4.20-5.40 [facility] Comment on above: Performed By: #### C CARLYN DE JESUS AMY #### [facility] [address] [place] [address] Dr. Joe Shea WBC 18.0 103/ul Critically high 4.0-11.0 [facility] Comment on above: Performed By: #### C CARLYN DE JESUS AMY #### [facility] [address] [place] [address] Dr. Joe Shea ER URINE PROFILEon 2 Bilirubin Ql (U) Negative Normal NEGATIVE [facility] Comment on above: Performed By: #### Althea GTZ #### [facility] [address] [place] [address] Dr. Joe Shea Clarity (U) CLEAR Normal CLEAR [facility] Comment on above: Performed By: #### Althea GTZ #### [facility] [address] [place] [address] Dr. Joe Shea Color (U) YELLOW Normal YELLOW [facility] Comment on above: Performed By: #### Althea GTZ #### [facility] [address] [place] [address] Dr. Joe YUNG A micrscopic examination will be performed if indicated. Normal [facility] Comment on above: Performed By: #### Althea GTZ #### [facility] [address] [place] [address] Dr. Joe Shea Glucose Ql (U) Negative Normal NEGATIVE [facility] Comment on above: Performed By: #### Althea DURÁNUL #### [facility] [address] [place] [address] Dr. Joe Shea Hemoglobin Ql (U) Negative Normal NEGATIVE [facility] Comment on above: Performed By: #### Althea DURÁNUL #### [facility] [address] [place] [address] Dr. Joe Shea Ketones Ql (U) 15 mg/dl Abnormal NEGATIVE [facility] Comment on above: Performed By: #### Althea GTZ #### [facility] [address] [place] [address] Dr. Joe Shea LEUKOCYTES Negative Normal NEGATIVE [facility] Comment on above: Performed By: #### Althea GTZ #### [facility] [address] [place] [address] Dr. oJe Shea Nitrite Ql (U) Negative Normal NEGATIVE [facility] Comment on above: Performed By: #### Althea GTZ #### [facility] [address] [place] [address] Dr. Joe Shea pH (U) 5.5 [pH] Normal 5-9 [facility] Comment on above: Performed By: #### Althea GTZ #### [facility] [address] [place] [address] Dr. Joe Shea SPEC GRAVITY >=1.030 Abnormal 1.005-<=1.02 5 [facility] Comment on above: Performed By: #### Althea GTZ #### [facility] [address] [place] [address] Dr. Joe Shea UA PROTEIN Negative Normal NEGATIVE/ TRACE [facility] Comment on above: Performed By: #### Althea GTZ #### [facility] [address] [place] [address] Dr. Joe Shea UR MICRO IND NOT INDICATED Normal [facility] Comment on above: Performed By: #### Althea GTZ #### [facility] [address] [place] [address] Dr. Joe Shea Urobilinogen Qn (U) 1.0 {Pascual'U}/dL Normal 0.2 - 1. 0 [facility] Comment on above: Performed By: #### Althea GTZ #### [facility] [address] [place] [address] Dr. Joe Shea LACTATE/LACTIC ACIDon 2021 Lactate [Moles/Vol] 1.0 mmol/L Normal 0.4-1.9 [facility] Comment on above: Performed By: #### Darius BC #### [facility] [address] [place] [address] Dr. Joe Shea LIPASEon 05-22-2022 Lipase [Catalytic activity/Vol] 205.0 U/L Normal 73.0-393.0 [facility] Comment on above: Performed By: #### A MY, CMP, LIPA #### [facility] [address] [place], [place] [address] Dr. Joe Shea MRI BRAIN WO CONon [...] ANGIE LO Date: 2022-05-22 16:17 Normal [facility] URon 05-22-2022 , QUAL Negative Normal NEGATIVE [facility] Comment on above: Performed By: #### Althea GTZ #### [facility] [address] [address] [address] Joe Shea PROF 14(COMP METB)on 022 Albumin [Mass/Vol] 4.5 g/dL Normal 3.4-5.0 [facility] Comment on above: Performed By: #### Althea GTZ #### [facility] [address] [address] [address] Joe Shea Albumin/Globulin [Mass ratio] 1.4 {ratio} Normal [facility] Comment on above: Performed By: #### Althea GTZ #### [facility] [address] [address] [address] Joe Shea ALP [Catalytic activity/Vol] 60 U/L Normal 46-116 [facility] Comment on above: Performed By: #### Althea GTZ #### [facility] [address] [address] [address] Joe Shea ALT [Catalytic activity/Vol] 17 U/L Normal 14-59 [facility] Comment on above: Performed By: #### Althea GTZ #### [facility] [address] [address] [address] Joe Shea Anion gap [Moles/Vol] 10.9 mmol/L Normal [facility] Comment on above: Performed By: #### Althea GTZ #### [facility] [address] [address] [address] Joe Shea AST [Catalytic activity/Vol] 19 U/L Normal 15-37 [facility] Comment on above: Performed By: #### Althea GTZ #### [facility] [address] [address] [address] Joe Shea Bilirubin [Mass/Vol] 0.8 mg/dL Normal 0.2-1.0 [facility] Comment on above: Performed By: #### Althea GTZ #### [facility] [address] [address] [address] Joe Shea Calcium [Mass/Vol] 9.0 mg/dL Normal 8.5-10.1 [facility] Comment on above: Performed By: #### Althea GTZ #### [facility] [address] [address] [address] Joe Shea Chloride [Moles/Vol] 102 mmol/L Normal 98-107 [facility] Comment on above: Performed By: #### Althea GTZ #### [facility] [address] [address] [address] Joe Shea CO2 [Moles/Vol] 28.7 mmol/L Normal 21.0-32.0 [facility] Comment on above: Performed By: #### Althea GTZ #### [facility] [address] [address] [address] Joe Shea Creatinine [Mass/Vol] 0.73 mg/dL Normal 0.55-1.02 [facility] Comment on above: Performed By: #### Althea GTZ #### [facility] [address] [address] [address] Joe Shea EGFR-AF BOTSWANAN >60 Normal >=60 [facility] Comment on above: Performed By: #### Althea GTZ #### [facility] [address] [address] [address] Joe Shea EGFR-NON AF BOTSWANAN >60 Normal >=60 [facility] Comment on above: Performed By: #### Althea GTZ #### [facility] [address] [address] [address] Joe Shea Globulin (S) [Mass/Vol] 3.2 g/dL Normal [facility] Comment on above: Performed By: #### Althea GTZ #### [facility] [address] [address] [address] Joe Shea Glucose [Mass/Vol] 113 mg/dL Critically high 74-106 [facility] Comment on above: Performed By: #### Althea GTZ #### [facility] [address] [address] [address] Joe Shea Potassium [Moles/Vol] 3.6 mmol/L Normal 3.5-5.1 [facility] Comment on above: Performed By: #### Althea GTZ #### [facility] [address] [address] [address] Joe Shea Protein [Mass/Vol] 7.7 g/dL Normal 6.4-8.2 [facility] Comment on above: Performed By: #### Althea GTZ #### [facility] [address] [address] [address] Joe Shea Sodium [Moles/Vol] 138 mmol/L Normal 136-145 [facility] Comment on above: Performed By: #### Althea GTZ #### [facility] [address] [address] [address] Joe Shea Urea nitrogen [Mass/Vol] 9.0 mg/dL Normal 7.0-18.0 [facility] Comment on above: Performed By: #### D TRESA #### [facility] [address] [place], [place] [address] Dr. oJe Shea Urea nitrogen/Creatinine [Mass ratio] 12.3 mg/mg Normal [facility] Comment on above: Performed By: #### D TRESA #### [facility] [address] [place], [place] [address] Dr. Joe hSea XR CHEST 2 Von 05-22-2022 XR CHEST [...] by: ANA COTE Date: 2022-05-22 02:56 Normal [facility] PROGESTERONEon 05-08-2022 Progesterone 18.1 ng/mL Normal [facility] Comment on above: Result Comment: Foll icular phase 0.1 - 0.9 Luteal phase 1.8 - 23.9 Ovulation phase 0.1 - 12.0 First trimester 11.0 - 44.3 Second trimester 25.4 - 83.3 Third trimester 58.7 - 214.0 Postmenopausal 0.0 - 0.1 Performed By: #### C BC #### [facility] [address] [place], [place] [address] Dr. Joe Shea DHEA SERUMon 04-12-2022 Dehydroepiandrosterone (DHEA) 577 ng/dL Normal [facility] Comment on above: Result Comment: Age [...] 89 Performed By: #### C BC #### [facility] [address] [place], [place] [address] Dr. Joe Shea PROGESTERONEon 04-10-2022 Progesterone 16.0 ng/mL Normal [facility] Comment on above: Result Comment: Foll icular phase 0.1 - 0.9 Luteal phase 1.8 - 23.9 Ovulation phase 0.1 - 12.0 First trimester 11.0 - 44.3 Second trimester 25.4 - 83.3 Third trimester 58.7 - 214.0 Postmenopausal 0.0 - 0.1 Performed By: #### Althea GTZ #### [facility] [address] [place] [address] Dr. Joe Shea DHEA-SULFATEon 04-06-2022 DHEA-Sulfate 241.0 ug/dL Normal 110.0-431.7 [facility] Comment on above: Performed By: #### Althea GTZ #### [facility] [address] [place] [address] Dr. Joe Shea FSHon 04-06-2022 FSH 6.6 mIU/mL Normal [facility] Comment on above: Result Comment: Adul t Female: Follicular phase 3.5 - 12.5 Ovulation phase 4.7 - 21.5 Luteal phase 1.7 - 7.7 Postmenopausal 25.8 - 134.8 Performed By: #### Althea GTZ #### [facility] [address] [place] [address] Dr. Joe Shea LUTEINIZING HORMONE (LH)on 1 LH 19.8 mIU/mL Normal [facility] Comment on above: Result Comment: Adul t Female: Follicular phase 2.4 - 12.6 Ovulation phase 14.0 - 95.6 Luteal phase 1.0 - 11.4 Postmenopausal 7.7 - 58.5 Performed By: #### L BCLH #### [facility] [address] [place] [address] Dr. Joe Shea CBC AUTO DIFFon 04-05-2022 BASO # 0.1 103/ul Normal 0.0-0.1 [facility] Comment on above: Performed By: #### C BC #### [facility] [address] [place] [address] Dr. Joe Shea Basophils/100 WBC (Bld) 0.9 % Normal 0.2-2.0 [facility] Comment on above: Performed By: #### C BC #### [facility] [address] [place] [address] Dr. Joe Shea EO # 0.2 103/ul Normal 0.0-0.7 [facility] Comment on above: Performed By: #### C BC #### [facility] [address] [place] [address] Dr. Joe Shea Eosinophils/100 WBC (Bld) 2.6 % Normal 0.9-7.0 [facility] Comment on above: Performed By: #### C BC #### [facility] [address] [place] [address] Dr. Joe Shea Erythrocyte distribution width (RBC) [Ratio] 13.1 % Normal 11.0-15.0 [facility] Comment on above: Performed By: #### C BC #### [facility] [address] [place] [address] Dr. Joe Shea Hematocrit (Bld) [Volume fraction] 38.2 % Normal 36.0-48.0 [facility] Comment on above: Performed By: #### C BC #### [facility] [address] [place] [address] Dr. Joe Shea Hemoglobin (Bld) [Mass/Vol] 12.3 g/dL Normal 12.0-16.0 [facility] Comment on above: Performed By: #### C BC #### [facility] [address] [place] [address] Dr. Joe Shea IG # 0.01 10e3/ul Normal 0.00-0.03 [facility] Comment on above: Performed By: #### C BC #### [facility] [address] [place] [address] Dr. Joe Shea IG % 0.2 % Normal 0.0-0.5 [facility] Comment on above: Performed By: #### C BC #### [facility] [address] [place] [address] Dr. Joe Shea LYMPH # 1.7 103/ul Normal 1.2-3.8 [facility] Comment on above: Performed By: #### C BC #### [facility] [address] [place] [address] Dr. Joe Shea Lymphocytes/100 WBC (Bld) 29.2 % Normal 20.5-60.0 [facility] Comment on above: Performed By: #### C BC #### [facility] [address] [place] [address] Dr. Joe Shea MANUAL DIFF REQ NO Normal [facility] Comment on above: Performed By: #### C BC #### [facility] [address] [place] [address] Dr. Joe Shea MCH (RBC) [Entitic mass] 28.4 pg Normal 26.7-34.0 [facility] Comment on above: Performed By: #### C BC #### [facility] [address] [place] [address] Dr. Joe Shea MCHC (RBC) [Mass/Vol] 32.2 g/dL Normal 29.9-35.2 [facility] Comment on above: Performed By: #### C BC #### [facility] [address] [place] [address] Dr. Joe Shea MCV (RBC) [Entitic vol] 88.2 fL Normal 81.0-99.0 [facility] Comment on above: Performed By: #### C BC #### [facility] [address] [place] [address] Dr. Joe Shea MONO # 0.5 103/ul Normal 0.3-0.8 [facility] Comment on above: Performed By: #### C BC #### [facility] [address] [place] [address] Dr. Joe Shea Monocytes/100 WBC (Bld) 8.2 % Normal 1.7-12.0 [facility] Comment on above: Performed By: #### C BC #### [facility] [address] [place] [address] Dr. Joe Shea NEUT # 3.4 103/ul Normal 1.4-6.5 [facility] Comment on above: Performed By: #### C BC #### [facility] [address] [place] [address] Dr. Joe Shea Neutrophils/100 WBC (Bld) 58.9 % Normal 43.0-75.0 [facility] Comment on above: Performed By: #### C BC #### [facility] [address] [place] [address] Dr. Joe Shea Platelet mean volume (Bld) [Entitic vol] 11.5 fL Normal 9.5-13.5 [facility] Comment on above: Performed By: #### C BC #### [facility] [address] [place] [address] Dr. Joe Shea PLT 233 103/ul Normal 150-450 [facility] Comment on above: Performed By: #### C BC #### [facility] [address] [place] [address] Dr. Joe Shea RBC 4.33 106/ul Normal 4.20-5.40 [facility] Comment on above: Performed By: #### C BC #### [facility] [address] [place] [address] Dr. Joe Shea WBC 5.8 103/ul Normal 4.0-11.0 [facility] Comment on above: Performed By: #### C BC #### [facility] [address] [place] [address] Dr. Joe Shea GLYCOHEMOGLOBIN A1Con 2021 ADA RECOMMENDATION SEE BELOW Normal [facility] Comment on above: Result Comment: ADA RECOMMENDED LIMIT 4.0 - 6.0 ADA THERAPEUTIC TARGET < 7.0 ACTION SUGGESTED > 7.0 Performed By: #### C CARLYN DE JESUS AMY #### [facility] [address] [place] [address] Dr. Joe Shea Glucose [Mass/Vol] 105 mg/dL Normal [facility] Comment on above: Performed By: #### C CARLYN DE JESUS AMY #### [facility] [address] [place] [address] Dr. Joe Shea HbA1c (Bld) [Mass fraction] 5.3 % Normal 4.5-6.2 [facility] Comment on above: Performed By: #### C CARLYN DE JESUS AMY #### [facility] [address] [place] [address] Dr. Joe Shea TSHon 04-05-2022 TSH 0.609 uIU/mL Normal 0.358-3.740 [facility] Comment on above: Performed By: #### C BC #### [facility] [address] [place] [address] Dr. Joe Shea US PELVIS AND TRANSVAGon [...] by: ANGIE MEJIA Date: 2022-04-05 17:23 Normal [facility] AMYLASEon 03-10-2022 Amylase [Catalytic activity/Vol] 64 U/L Normal 25-115 [facility] Comment on above: Performed By: #### C BC #### [facility] [address] [place] [address] Dr. Joe Shea CBC AUTO DIFFon 03-10-2022 BASO # 0.1 103/ul Normal 0.0-0.1 [facility] Comment on above: Performed By: #### C BC #### [facility] [address] [place] [address] Dr. Joe Shea Basophils/100 WBC (Bld) 0.6 % Normal 0.2-2.0 [facility] Comment on above: Performed By: #### C BC #### [facility] [address] [place] [address] Dr. Joe Shea EO # 0.3 103/ul Normal 0.0-0.7 [facility] Comment on above: Performed By: #### C BC #### [facility] [address] [place] [address] Dr. Joe Shea Eosinophils/100 WBC (Bld) 1.7 % Normal 0.9-7.0 [facility] Comment on above: Performed By: #### C BC #### [facility] [address] [place] [address] Dr. Joe Shea Erythrocyte distribution width (RBC) [Ratio] 13.1 % Normal 11.0-15.0 [facility] Comment on above: Performed By: #### C BC #### [facility] [address] [place] [address] Dr. Joe Shea Hematocrit (Bld) [Volume fraction] 37.9 % Normal 36.0-48.0 [facility] Comment on above: Performed By: #### C BC #### [facility] [address] [place] [address] Dr. Joe Shea Hemoglobin (Bld) [Mass/Vol] 12.2 g/dL Normal 12.0-16.0 [facility] Comment on above: Performed By: #### C BC #### [facility] [address] [place] [address] Dr. Joe Shea IG # 0.05 10e3/ul Critically high 0.00-0.03 [facility] Comment on above: Performed By: #### C BC #### [facility] [address] [place] [address] Dr. Joe Shea IG % 0.3 % Normal 0.0-0.5 [facility] Comment on above: Performed By: #### C BC #### [facility] [address] [place] [address] Dr. Joe Shea LYMPH # 4.7 103/ul Critically high 1.2-3.8 [facility] Comment on above: Performed By: #### C BC #### [facility] [address] [place] [address] Dr. Joe Shea Lymphocytes/100 WBC (Bld) 28.3 % Normal 20.5-60.0 [facility] Comment on above: Performed By: #### C BC #### [facility] [address] [place] [address] Dr. Joe Shea MANUAL DIFF REQ NO Normal [facility] Comment on above: Performed By: #### C BC #### [facility] [address] [place] [address] Dr. Joe Shea MCH (RBC) [Entitic mass] 27.9 pg Normal 26.7-34.0 [facility] Comment on above: Performed By: #### C BC #### [facility] [address] [place] [address] Dr. Joe Shea MCHC (RBC) [Mass/Vol] 32.2 g/dL Normal 29.9-35.2 [facility] Comment on above: Performed By: #### C BC #### [facility] [address] [place] [address] Dr. Joe Shea MCV (RBC) [Entitic vol] 86.5 fL Normal 81.0-99.0 [facility] Comment on above: Performed By: #### C BC #### [facility] [address] [place] [address] Dr. Joe Shea MONO # 0.9 103/ul Critically high 0.3-0.8 [facility] Comment on above: Performed By: #### C BC #### [facility] [address] [place] [address] Dr. Joe Shea Monocytes/100 WBC (Bld) 5.5 % Normal 1.7-12.0 [facility] Comment on above: Performed By: #### C BC #### [facility] [address] [place] [address] Dr. Joe Shea NEUT # 10.5 103/ul Critically high 1.4-6.5 [facility] Comment on above: Performed By: #### C BC #### [facility] [address] [place] [address] Dr. Joe Shea Neutrophils/100 WBC (Bld) 63.6 % Normal 43.0-75.0 [facility] Comment on above: Performed By: #### C BC #### [facility] [address] [place] [address] Dr. Joe Shea Platelet mean volume (Bld) [Entitic vol] 11.1 fL Normal 9.5-13.5 [facility] Comment on above: Performed By: #### C BC #### [facility] [address] [place] [address] Dr. Joe Shea PLT 428 103/ul Normal 150-450 [facility] Comment on above: Performed By: #### C BC #### [facility] [address] [place] [address] Dr. Joe Shea RBC 4.38 106/ul Normal 4.20-5.40 [facility] Comment on above: Performed By: #### C BC #### [facility] [address] [place] [address] Dr. Joe Shea WBC 16.6 103/ul Critically high 4.0-11.0 [facility] Comment on above: Performed By: #### C BC #### [facility] [address] [place] [address] ABD/PELV W CONon [...] by: MURALI STRANGE Date: 2022-03-10 16:59 Normal [facility] LIPASEon 03-10-2022 Lipase [Catalytic activity/Vol] 81.0 U/L Normal 73.0-393.0 [facility] Comment on above: Performed By: #### C BC #### [facility] [address] [place] [address] Dr. Joe Shea LIVER PROFILEon 03-10-2022 Albumin [Mass/Vol] 4.2 g/dL Normal 3.4-5.0 [facility] Comment on above: Performed By: #### C BC #### [facility] [address] [place] [address] Dr. Joe Shea Albumin/Globulin [Mass ratio] 1.4 {ratio} Normal [facility] Comment on above: Performed By: #### C BC #### [facility] [address] [place] [address] Dr. Joe Shea ALP [Catalytic activity/Vol] 50 U/L Normal 46-116 [facility] Comment on above: Performed By: #### C BC #### [facility] [address] [place] [address] Dr. Joe Shea ALT [Catalytic activity/Vol] 14 U/L Normal 14-59 [facility] Comment on above: Performed By: #### C BC #### [facility] [address] [place] [address] Dr. Joe Shea AST [Catalytic activity/Vol] 13 U/L Critically low 15-37 [facility] Comment on above: Performed By: #### C BC #### [facility] [address] [place] [address] Dr. Joe Shea BILI, CONJUGATED 0.1 mg/dL Normal 0.0-0.2 [facility] Comment on above: Performed By: #### C BC #### [facility] [address] [place] [address] Dr. Joe Shea Bilirubin [Mass/Vol] 0.3 mg/dL Normal 0.2-1.0 [facility] Comment on above: Performed By: #### C BC #### [facility] [address] [address] [address] Joe Shea Globulin (S) [Mass/Vol] 3.1 g/dL Normal [facility] Comment on above: Performed By: #### C BC #### [facility] [address] [address] [address] oJe Shea Protein [Mass/Vol] 7.3 g/dL Normal 6.4-8.2 [facility] Comment on above: Performed By: #### C BC #### [facility] [address] [place] [address] Dr. Joe Shea PREG HCG QUALon 03-10-2022 , QUAL Negative Normal NEGATIVE [facility] Comment on above: Performed By: #### L BCLH #### [facility] [address] [place] [address] Dr. Joe Shea PROF CHEM 8 (BAS METB)on Anion gap [Moles/Vol] 17.6 mmol/L Normal [facility] Comment on above: Performed By: #### C MP, LIPA, NESTOR #### [facility] [address] [address] [address] Joe Shea Calcium [Mass/Vol] 9.0 mg/dL Normal 8.5-10.1 [facility] Comment on above: Performed By: #### C MP, LIPA, NESTOR #### [facility] [address] [place] [address] Dr. Joe Shea Chloride [Moles/Vol] 102 mmol/L Normal 98-107 [facility] Comment on above: Performed By: #### C MP, LIPA, NESTOR #### [facility] [address] [address] [address] Joe Shea CO2 [Moles/Vol] 23.4 mmol/L Normal 21.0-32.0 [facility] Comment on above: Performed By: #### C MP, LIPA, NESTOR #### [facility] [address] [address] [address] Joe Shea Creatinine [Mass/Vol] 0.84 mg/dL Normal 0.55-1.02 [facility] Comment on above: Performed By: #### C MP, LIPA, NESTOR #### [facility] [address] [address] [address] Joe Shea EGFR-AF BOTSWANAN >60 Normal >=60 [facility] Comment on above: Performed By: #### C MP, LIPA, NESTOR #### [facility] [address] [address] [address] Joe Shea EGFR-NON AF BOTSWANAN >60 Normal >=60 [facility] Comment on above: Performed By: #### C MP, LIPA, NESTOR #### [facility] [address] [address] [address] Joe Shea Glucose [Mass/Vol] 149 mg/dL Critically high 74-106 [facility] Comment on above: Performed By: #### C MP, LIPA, NESTOR #### [facility] [address] [address] [address] Joe Shea Potassium [Moles/Vol] 2.9 mmol/L Critically low 3.5-5.1 [facility] Comment on above: Performed By: #### C MP, LIPA, NESTOR #### [facility] [address] [address] [address] Joe Shea Sodium [Moles/Vol] 139 mmol/L Normal 136-145 [facility] Comment on above: Performed By: #### C MP, LIPA, NESTOR #### [facility] [address] [address] [address] Joe Shea Urea nitrogen [Mass/Vol] 11.0 mg/dL Normal 7.0-18.0 [facility] Comment on above: Performed By: #### C MP, LIPA, NESTOR #### [facility] [address] [address] [address] Joe Shea Urea nitrogen/Creatinine [Mass ratio] 13.1 mg/mg Normal [facility] Comment on above: Performed By: #### C CARLYN DE JESUS AMY #### [facility] [address] [address] [address] Joe Shea XR CSPINE 2_3 VIEWSon [...] by: ANGIE MEJIA Date: 2022-01-18 08:03 Normal [facility] C BP Strepon 12-23-2019 C BP Strep This is strictly a screening test for Strep Group A( Streptococcus pyogenes). No other pathogens will be noted. Final Backup plate negative for Group A Streptococus Resulted at [facility] Normal [facility] Comment on above: Performed By: #### B P #### [facility] (DEFAULT) [address] [place] [address] [facility] [address] [place] [address] Ambulatory Patient Education on 12-21-2019 Ambulatory Patient [...] a child 2 years or older. ? [id number] [employer]. [address] [place] [address], [place] [address]. All rights reserved. This information is not intended as a substitute for professional medical care. Always follow your healthcare professional's instructions. Strep today is Negative. Will send for culture to [facility] and notify if it returns positive. Take medication as prescribed. Discontinue for a negative strep culture. Discard and replace toothbrush after taking antibiotics for at least 24 hours. May use qekv-csp-oouzvvo Tylenol and Motrin for pain relief. May use of cdmh-kjq-yufujcc Chloraseptic throat spray, lozenges, cool or warm [...] tabs, 0 Refill(s), 12/26/19 14:42:00 EDT, Pharmacy: [id number] [facility] [place] Trackon 12-21-2019 BVO Red Swab # 1 [facility] Comment on above: Performed By: #### O [facility] Tracking Order #### [facility] [address] [place] [address] Urgent Care Office/Clinic No sabiha 12-21-2019 Urgent [...] POC: negative. Swab will be sent to [facility] for culture. We will call if positive and treat appropriately. Additional Vitals Body Mass Index Measured: 18.43 kg/m2 Peripheral Pulse Rate: 111 bpm High Assessment/Plan 1. Sore throat Strep today is Negative. Will send for culture to [facility] and notify if it returns positive. Take medication as prescribed. Discontinue for a negative strep culture. Discard and replace toothbrush after taking antibiotics for at least 24 hours. May use ezlu-dbo-vhrkcbw Tylenol and Motrin for pain relief. May use of fojv-pin-jfwfker Chloraseptic throat spray, lozenges, cool or warm [...] tabs, 0 Refill(s), 12/26/19 14:42:00 EDT, Pharmacy: [id number] Physician Comments Cent[facility] criteria [...] by Rosa Fitch 12/21/19 15:01 EDT Normal [facility] Vital Signs Date Time Vital Sign Value Performing Clinician Facility 03-28-2023 10:16-0400 Body height 157.48 cm Referring Provider Unknown [id number] [address] [place] Work Phone: 03-28-2023 10:16-0400 Body mass index (BMI) [Ratio] 23.78 kg/m2 Referring Provider Unknown [id number] [address] [place] Work Phone: 03-28-2023 10:16-0400 Body surface area Derived from formula 1.59 m2 Referring Provider Unknown [id number] [address] [place] Work Phone: 03-28-2023 10:16-0400 Body weight 58.97 kg Referring Provider Unknown [id number] [address] [place] Work Phone: 03-28-2023 10:16-0400 Diastolic blood pressure 65 mm[Hg] Referring Provider Unknown [id number] [address] [place] Work Phone: 03-28-2023 10:16-0400 Heart rate 96 /min Referring Provider Unknown [id number] [address] [place] Work Phone: 03-28-2023 10:16-0400 Systolic blood pressure 107 mm[Hg] Referring Provider Unknown [id number] [address] [place] Work Phone: 03-28-2023 10:16-0400 0 1 Referring Provider Unknown [id number] [address] [place] Work Phone: Comment on above: [facility] 02-14-2023 09:15-0400 Body height 154.94 cm Filippo Larson Other [facility] Other 02-14-2023 09:15-0400 Body mass index (BMI) [Ratio] 21.73 kg/m2 Filippo Larson Other [facility] Other 02-14-2023 09:15-0400 Body weight 52.16 kg Filippo Larson Other [facility] Other 02-14-2023 09:15-0400 Diastolic blood pressure 68 mm[Hg] Filippo Larson Other [facility] Other 02-14-2023 09:15-0400 Systolic blood pressure 96 mm[Hg] Filippo Larson Other [facility] Other 07-17-2022 14:26-0500 Blood Pressure Location Mayito OBANDOL [facility] 07-17-2022 14:26-0500 Diastolic blood pressure 70 mm[Hg] Mayito OBANDOL [facility] 07-17-2022 14:26-0500 Heart rate 70 /min Mayito LIM [facility] 07-17-2022 14:26-0500 Respiratory rate 16 /min Mayito OBANDOL [facility] 07-17-2022 14:26-0500 Systolic blood pressure 102 mm[Hg] Mayito LIM [facility] 03-09-2020 20:24-0400 BP Diastolic 61 mm[Hg] PHYSICIAN NO [facility] 03-09-2020 20:24-0400 BP Systolic 117 mm[Hg] PHYSICIAN NO [facility] 03-09-2020 20:24-0400 Pulse (Heart Rate) 85 /min PHYSICIAN NO [facility] 03-09-2020 20:24-0400 Pulse Oximetry 100 % PHYSICIAN NO [facility] 03-09-2020 20:24-0400 Respiratory Rate 24 /min PHYSICIAN NO [facility] 03-09-2020 18:49-0400 BMI (Body Mass Index) 20 kg/m2 PHYSICIAN NO [facility] 03-09-2020 18:49-0400 Body Temperature 98.7 [degF] PHYSICIAN NO [facility] 03-09-2020 18:49-0400 Body weight 49.7 kg PHYSICIAN NO [facility] 03-09-2020 18:49-0400 Height 157.48 cm PHYSICIAN NO [facility] Encounters Encounter Date Encounter Type Care Provider Facility Start: 07-09-2023 End: 07-09-2023 ambulatory CECIL QUINTANA Not Available Start: 07-08-2023 End: 07-08-2023 ambulatory LYLY SMITH [facility] Start: 07-08-2023 End: 07-08-2023 Office outpatient visit 15 minutes Paulie Cervantes MD Work Phone: [facility] Comment on above: 34 weeks gestation o f (Primary Dx); Poor growth affecting management of mother in third trimester, fetus 1 of multiple gestation; Dichorionic diamniotic twin in third trimester; Anxiety during Start: 07-04-2023 Orders Only Freddy Christensen [facility] Comment on above: Dichorionic diamniot ic twin in third trimester (Primary Dx); Poor growth affecting management of mother in third trimester, fetus 1 of multiple gestation Start: 07-03-2023 End: 07-04-2023 ambulatory AMADEO HEATON [facility] Start: 06-11-2023 End: 06-11-2023 ambulatory NESTOR PRICE Not Available Start: 05-28-2023 End: 05-28-2023 ambulatory CECIL QUINTANA Not Available Start: 05-14-2023 End: 05-14-2023 ambulatory NESTOR PRICE Not Available Start: 03-28-2023 Office consultation new/estab patient 80 min Referring Provider Unknown [id number] [address] [place] Work Phone: Start: 03-28-2023 Patient encounter procedure Referring Provider Unknown [id number] [address] [place] Work Phone: Start: 03-28-2023 ambulatory Ramakrishnanando Schwarz Facility :[facility] Start: 02-14-2023 End: 02-14-2023 ambulatory Filippo Larson Other [facility] Other Start: 02-14-2023 Office outpatient vi sit 15 minutes Filippo Larson [facility] Start: 11-28-2022 End: 11-28-[address] SUKI CONDE Facility: Start: 11-28-[address] SUKI CONDE Facil ity:[facility] Start: 10-28-2022 End: 10-28-[address] SUKI CONDE Facility:[facility] Start: 09-29-2022 End: 09-29-[address] SUKI CONDE Facility: Start: 09-19-2022 End: 09-20-[address] SUKI CONDE Facility:[facility] Start: 08-15-[address] SUKI CONDE Facil ity:[facility] Start: 07-17-2022 End: 07-18-2022 ambulatory SUKI CONDE PROVIDER Facility:[facility] Start: 07-17-2022 End: 07-17-2022 Patient encounter procedure Mayito LIM General Surgery Raphael/Hossein Hudson Start: 07-10-2022 End: 07-10-[address] CECIL QUINTANA . Facility: Start: 07-08-2022 Encounter for preprocedural laboratory examination DR CECIL QUINTANA . [facility] Start: 07-06-2022 End: 07-07-[address] CECIL QUINTANA . Facility:[facility] Start: 07-06-2022 End: 07-07-2022 Encounter for preprocedural laboratory examination DR CECIL QUINTANA . Facility:[facility] Start: 06-15-2022 End: 06-16-[address] CECIL QUINTANA . Facility:[facility] Start: 06-11-2022 End: 06-12-2022 ambulatory JUANJOSE VIRAMONTES Facility:[facility] Start: 06-08-2022 ambulatory SUKI CONDE PROVIDER Facility:[facility] Start: 05-31-2022 End: 06-01-[address] CECIL [...] Emergency department patient visit PHYSICIAN KIMI RO [facility] Start: 04-27-2014 End: 04-27-2014 Telephone encounter Noa Dimas MD Work Phone: Reproductive Endocrinology Infertility Procedures Date Procedure Procedure Detail Performing Clinician Start: 10-25-2020 Microscopic observation [Identifier] in Cervix by Cyto stain Freddy Hughes EGG GRADER Colonoscopy Mayito OBANDOL Dilation and curettage Temo OBANDOL Dilation and curettage Temo douglass NILL Esophagogastroduodenoscopy M ichdemar NILL Excision of cyst of ovary Mi real NILL Laparoscopy Mayito NILL Plan of Treatment Date Care Activity Detail Author Start: 05-28-2032 DTaP,Tdap and Td Vaccines (8 - Td or Tdap) DTaP,Tdap and Td Vaccines (8 - Td or Tdap) [facility] Start: 07-04-2024 End: 07-04-2024 US MFM with or without consult US MFM with or without consult Imaging Routine Dichorionic diamniotic twin in third trimester Poor growth affecting management of mother in third trimester, fetus 1 of multiple gestation Expected: 07/04/2024 (Approximate), Expires: 07/04/2024 [facility] Make YES! Happen Work Phone: Comment on above: Expected: 07/04/2024 (Approximate), Expires: 07/04/2024 Start: 06-03-2024 Adult BMI Screening Adult BMI Screen ing [facility] Start: 06-03-2024 Tobacco Screening Tobacco Screening [facility] Start: 2024 Screening for Chlamy carroll trachomatis Chlamydia Screening [facility] Start: 10-26-2023 Screening for malign ant neoplasm of cervix Pap Smear [facility] Start: 07-17-2023 End: 07-17-2023 Patient encounter procedure 07/17/2023 9:30 AM EST Appointment [facility] [address] [place] [phone] [facility] Start: 07-08-2023 End: 07-08-2023 Telemedicine consultation with patient 07/08/2023 1:00 PM EST Telemedicine Maternal- Medicine at [facility] [address] [place] [id number] Paulie Cervantes MD [address] [facility] [place] [place] [address] Lyly Smith MD [address] [facility] [address] [place] [address] M[facility]- Medicine at [facility] Start: 03-01-2023 Influenza vaccination Influenza Vacc ine [facility] Start: 03-01-2021 Influenza vaccination INFLUENZ A (Season Ended) [facility] Start: 02-28-2020 PAP TESTING PAP TESTING [facility] Start: 2018 Urine microalbumin profile DTAP,TDAP,TD (1 - Tdap) [facility] Start: 2017 Adult BMI Follow Up Plan Adult BMI Follow Up Plan [facility] Start: 2017 CHLAMYDIA SCREENING (18-24) CHLAMYDIA SCREENING (18-24) [facility] Start: 2017 GC (GONORRHEA) SCREE KRUNAL (18-24) GC (GONORRHEA) SCREENING (18-24) [facility] Start: 2017 HEPATITIS C SCREENING HEPATITIS C SC REENING [facility] Start: 2017 HIV SCREENING HIV SCREENING [facility] Start: 2011 Adult depression screening assessment DEPRESSION SCREENING [facility] Start: 2010 HPV VACCINE (1 - 2-d ose series) HPV VACCINE (1 - 2-dose series) [facility] Patient Education Anxiety (ED) [facility] Patient referral [facility] Immunizations Immunization Date Immunization Notes Care Provider Fa cility 01-05-2022 influenza virus vaccine, unspecified formulation Freddy uHghes [facility] NEGATED: Highlighted row has not occurred!07-17-2022 influenza virus vaccine, unspecified formulation Mayito LIM [facility] Payers Date Payer Category Payer Unknown [address] [facility] [employer] [place] PPO [employer] [id number] 2013-2014 PPO [id number] 1999 Unknown [id number] 2.16.840.1.039315.3.579.2.727 1999 Unknown [id number] 2.16.840.1.561136.3.579.2.727 1999 Unknown [id number] 2.16.840.1.340484.3.579.2.593 1999 Unknown [id number] 2.16.840.1.951185.3.579.2.593 1999 Unknown [id number] 2.16.840.1.619912.3.579.2.593 1999 Unknown [id number] 2.16.840.1.374925.3.579.2.593 1999 Unknown [id number] 2.16.840.1.971380.3.579.2.593 1999 Unknown [id number] 2.16.840.1.140257.3.579.2.593 1999 Unknown [id number] 2.16.840.1.479324.3.579.2.593 1999 Unknown [id number] 2.16.840.1.651818.3.579.2.593 1999 Unknown [id number] 2.16.840.1.359738.3.579.2.593 1999 Unknown [id number] 2.16.840.1.596606.3.579.2.593 1999 Unknown [id number] 2.16.840.1.013542.3.579.2.593 1999 Unknown [id number] 2.16.840.1.313960.3.579.2.593 1999 Unknown [id number] 2.16.840.1.653385.3.579.2.593 1999 Unknown [id number] 2.16.840.1.438986.3.579.2.593 1999 Unknown [id number] 2.16.840.1.515840.3.579.2.593 1999 Unknown [id number] 2.16.840.1.701118.3.579.2.593 1999 Unknown [id number] 2.16.840.1.771469.3.579.2.593 1999 Unknown [id number] 2.16.840.1.304409.3.579.2.593 1999 Unknown [id number] 2.16.840.1.046325.3.579.2.593 1999 Unknown [id number] 2.16.840.1.330412.3.579.2.593 1999 Unknown [id number] 2.16.840.1.447697.3.579.2.593 1999 Unknown [id number] 2.16.840.1.158872.3.579.2.356 1999 Unknown [id number] 2.16.840.1.177160.3.579.2.1259 1999 Unknown [id number] 2.16.840.1.926148.3.579.2.1259 1999 Unknown [id number] 2.16.840.1.557829.3.579.2.1259 1999 Unknown [id number] 2.16.840.1.731290.3.579.2.1259 1999 Unknown [id number] 2.16.840.1.607533.3.579.2.1286 1999 Unknown [id number] 2.16.840.1.428748.3.579.2.1286 1959 Unknown [id number] 1959 Unknown [id number] 1959 Unknown [id number] Self-pay Self Pay [id number] Unknown Self Pay [id number] Social History Date Type Detail Facility Start: 03-09-2020 Tobacco smoking status NHIS Smoker (finding) [facility] Start: 2000 Sex Assigned At Female [facility] Start: 04-12-2014 Tobacco smoking status NHIS Never smoker [facility] Start: 04-12-2014 End: 04-01-2023 Tobacco use and exposure Never used [facility] Start: 04-12-2014 Alcohol intake Current non-dr compensation/benefits specialist of alcohol (finding) [facility] Start: 2000 Sex Assigned At Not on file [facility] Start: 07-17-2022 End: 04-01-2023 Tobacco smoking status Ex-smoker (finding) [facility] Tobacco smoking status Smokeless tobacco user within last 30 days [facility] Start: 06-03-2023 Sex Assigned At Female [facility] Start: 04-01-2023 End: 06-03-2023 No alcohol use No alcohol use [facility] History of tobacco use Cigarette Smoker [facility] Start: 06-03-2023 Alcohol intake Ex-drinker (finding) [facility] Start: 10-25-2020 Alcohol Comment [facility] Start: 11-22-2022 [facility] NEGATED: Highlighted row Denies History of domestic violence Denies History of domestic violence [id number] [address] [place] Work Phone: Goals Date Patient Goal Desired Activity /State Functional Status Date Assessment Result Facility 07-17-2022 Functional Status N/A [facility] Clinical Notes 04-27-2014 to 07-08-2023 Lyly Smith MD - 07/08/2023 1:00 PM EST Note Date & Type Note Facility 07-08-2023 History of Present illness Narrative Video Visit via Real-time Synchronous Audiovisual Provider Location: [facility] MATERNAL- MEDICINE AT [address] [phone] Patient Location: Patient Location [employer] T[employer] Tester: None Video Visit Consent Statement: I discussed [...] that there are some limitations compared to [id number] evaluations. We elected to proceed. REASON FOR [...] and B, status post 2nd opinion at [facility] Anxiety/ depression, managed on citalopram 40 mg [...] hypokalemia Anxiety and depression Bipolar 2 disorder (CMS-HCC) Chronic abdominal pain Endometriosis Intractable nausea and [...] and B, status post 2nd opinion at [facility] COUNSELING We reviewed signs symptoms of labor [...] Serial Doppler studies for growth restriction at [facility] office, Doppler studies remain normal, repeat on 07/17/2023 Delivery scheduled at 37 weeks' gestation with primary OB at local hospital, primary due to male presentation of twin a, breech Patient is scheduled for repeat umbilical artery Doppler assessment in 2 weeks, no future clinic visits with [facility] Thank you for allowing me to participate in Shanon Louise care. If there are any questions, please do not hesitate to call me. Lyly Smith MD Maternal- Medicine [facility] [address] [facility] [address] [place] [address] documented in this encounter [employer]! 02-14-2023 Evaluation note Encounter Date Diagnosis Assessment [...] needed. Retrun visit here in three months. [facility] Other 01-20-2023 NoteChief Complaint consultation for epigastric [...] Reports colonoscopy completed several years ago at [facility] was normal. History of Present Illness 22 yo female with h/o bipolar disorder, anxiety, migraines, referred for intermittent epigastric and LUQ pain, burning, at times sharp/stabbing; occasional N/V; + boating; no food triggers, occurs celia without eating; no hematemesis or melena; no hematochezia, some constipation, improved with stool softeners; had normal EGD and colonoscopy at [facility] in 2016; abdominal [...] more than 30 da (more content not included)...[facility]:Result Comment: Electronically Signed By: RAPHAEL MACIAS, Mayito Matthews\Date and Time Signed: 07/20/22 14:58 [id number] Note OPERATIVE NOTE OPERATION DATE: 07/10/2021 PROCEDURE: Diagnostic laparoscopy with chromopertubation. PREOPERATIVE DIAGNOSIS: Pelvic pain. POSTOPERATIVE DIAGNOSIS: Pelvic pain, including small endometrial implant posterior cul-de-sac, as well as possible blunted tube on the patient's left side. ANESTHESIA: General. SURGEON: Cecil Quintana D.O. ELECTRICIAN MACHINE SHOP: ISAURO Mccoy URINE OUTPUT: Yellow and clear. BLOOD LOSS: 5 mL. FINDINGS: Slightly blunted tube on the left side, endometriosis posterior cul-de-sac, otherwise normal appearing uterus, tubes and ovaries. Normal appearing appendix. Some adhesions of the bowel to the pelvic and abdominal side wall on the patient's right side. Normal appearing liver. No evidence of Mufj-Mjtg-Wqnkkg syndrome. PROCEDURE: The patient was taken back [...] [facility] NoteOP Note OPERATION DATE: 07/10/2022 PROCEDURE: Diagnostic laparoscopy with chromopertubation. PREOPERATIVE DIAGNOSIS: Pelvic pain, suspected endometriosis, fallopian tube disorder. POSTOPERATIVE DIAGNOSIS: Pelvic pain, suspected endometriosis, fallopian tube disorder, including mild endometriosis, bilateral patent fallopian tubes, small bowel adhesion to the pelvic side wall. ANESTHESIA: General. SURGEON: Cecil Quintana D.O. ELECTRICIAN MACHINE SHOP: ISAURO Mccoy URINE OUTPUT: Yellow and clear. BLOOD LOSS: 5 mL. ADDENDUM: Please note that chromopertubation was performed after methylene blue was placed through the HUMI manipulator. Spillage of methylene blue could be seen from both tubes.[facility] [id number] Instructions* Patient Instructions* [facility] - 04/27/2014 4:49 PM EDT [phone] - Patient mother would like to speak with a nurse concerning medications that her daughter is taking. [facility] N[facility]ative - Reported * the patient is seen at the request of Dr. Gonzales at [facility] for consultation regarding second opinion for placental hemorrhage; EDC 08/15/2023 * FC MA [id number] [address] [place] Work Phone: chizo complaint Narrative - Reported* the patient is seen at the request of Dr. Gonzales at [facility] for consultation regarding second opinion for placental hemorrhage; EDC 08/15/2023 * FC MA [id number] [address] [place] Work Phone: evaluation + Plan note No data available for this section [facility] Evaluation note* Diagnosis Dichorionic diamniotic twin in third trimester- Primary Poor growth affecting management of mother in third trimester, fetus 1 of multiple gestation documented in this encounter [facility]* Diagnosis 34 weeks gestation of - Primary Poor growth affecting management of mother in third trimester, fetus 1 of multiple gestation Dichorionic diamniotic twin in third trimester Anxiety during documented in this encounter [facility] Narrative - Reported* Type Description Date Medical History Anxiety Medical History GERD (gastroesophageal reflux di sease) Medical History bipolar Surgical History LAPAROSCOPY-times 2 2013 [facility]ization [facility] - ultrasound & CT scans 12/2022 [facility] Other Hospital Discharge instructions No data available for this section [facility] InstructionsNot on filedocumented in this encounter [facility]ructionsNot on filedocumented in this encounter [facility] note No data available for this [...] fetus 1 of multiple gestation Procedures US [facility] with or without consult Amadeo Heaton MD [address] [facility] [address] [place] [address] [facility] Maternal Med [address] [place] [address] Referral ID Status Reason Start Date Expiration Date V isits Requested Visits Authorized [id number] Pending Review 07/04/2023 07/03/2024 1 1 Additional Source Comments INFORMATION SOURCE (unrecogn ized section and content) DATE CREATED AUTHOR 02/04/2020 [facility] DATE CREATED AUTHOR AUTHOR'S ORGANIZ ATION 08/16/2022 [facility] DATE CREATED AUTHOR AUTHOR'S ORGANIZ ATION 12/07/[address] [facility] DATE CREATED AUTHOR AUTHOR'S ORGANIZ ATION 04/06/2023 [facility] DATE CREATED AUTHOR AUTHOR'S ORGANIZ ATION 07/10/2023 [facility] EPIC DATE CREATED AUTHOR AUTHOR'S FRANK ATION 07/12/2023 [facility] Source Comments (unrecognize d section and content) In the event this informatio n is protected by the Federal Confidentiality of Alcohol and Drug Abuse Patient Records regulations: The Federal rules restrict any use of the information to criminally investigate or prosecute any alcohol or drug abuse patient.[facility] Patient Care team informatio n (unrecognized section and content) [employer] Worker Relationship Specialty Start Date End Date No Pcp, [place] [address] PCP - General Family Medicine 10/25/20 [employer] Worker Relationship Specialty Start Date End Date No Pcp, [place] [address] PCP - General Family Medicine 10/25/20 REASON [...] BE BASED ON THE PRIMARY CLINICAL RECORDS. [facility]. provides no warranty or guarantee of the accuracy or completeness of information in this document.
[2023-07-16 14:54] VITALS: BP 121/63; PULSE 84
--- NOTE | 2023-07-16 14:55 | US_ITS ---
[address] [address] Patient Name: LELIA CONNOLLY MRN: [id number] date: 2000 Sex: F Assigned Patient Location: Current Patient Location: [facility] Accession/Order Number: [id number] Exam Date: 07/16/2023 15:40 Report Date: 07/16/2023 18:09 At the request of: NESTOR PRICE Procedure: US OB BPP w non-stress PROCEDURE: US OB >= 14 wk fetus add gest, US OB BPP w non-stress, 07/16/2023 3:00 PM EST CLINICAL INDICATIONS: Iron deficiency anemia, diamniotic dichorionic twin intrauterine . Biophysical profile assessment. Encounter for third trimester . Expected gestational age: 35 weeks 5 days Expected ARNALDO: 08/15/2023 COMPARISON: 07/09/2023 TECHNIQUE: Limited twin obstetric sonogram, biophysical profile assessment. Grayscale, color evaluation. FINDINGS: Living twin intrauterine identified. TWIN A: Presenting fetus, lower uterine segment, maternal right side, breech presentation body, cardiac activity noted. Heart rate 133 bpm. Maximum vertical pocket 3.5 cm. biometry: Not performed. anatomic assessment: Not performed. Placenta is not evaluated. BIOPHYSICAL PROFILE ASSESSMENT: movement: 0/2 tone: 2/2 breathin/2 fluid: 2/2 Total biophysical profile score: 6/8 TWIN B: Cephalic presentation, maternal left side body, cardiac activity noted, heart rate 152 bpm. Amniotic fluid: Maximum vertical pocket 5.2 cm. biometry: Not performed. anatomic assessment: Not performed. Placenta is not evaluated. BIOPHYSICAL PROFILE ASSESSMENT: movement: 2/2 tone: 2/2 breathin/2 fluid: 2/2 Total biophysical profile score: 8/8 US/US OB BPP w non-stress IMPRESSION: 1. Living twin intrauterine . 2. Twin A. Maternal right side breech presentation, maximum vertical pocket 3.5 cm. Total biophysical profile score of 6/8. The fetus received a score of 0/2 for breathing parameter, 2/2 for remaining parameters. 3. Twin B. Maternal left side, cephalic presentation, maximum vertical pocket 5.2 cm. Total biophysical profile score / Electronically authenticated by: ANA TOBAR Date: 07/16/2023 18:09
--- NOTE | 2023-07-16 15:00 | US_ITS ---
[address] [address] Patient Name: LELIA CONNOLLY MRN: [id number] date: 2000 Sex: F Assigned Patient Location: [facility] Current Patient Location: [facility] Accession/Order Number: [id number] Exam Date: 07/16/2023 15:00 Report Date: 07/16/2023 18:09 At the request of: NESTOR PRICE Procedure: US OB >= 14 wk fetus add gest PROCEDURE: US OB >= 14 wk fetus add gest, US OB BPP w non-stress, 07/16/2023 3:00 PM EST CLINICAL INDICATIONS: Iron deficiency anemia, diamniotic dichorionic twin intrauterine . Biophysical profile assessment. Encounter for third trimester . Expected gestational age: 35 weeks 5 days Expected ARNALDO: 08/15/2023 COMPARISON: 07/09/2023 TECHNIQUE: Limited twin obstetric sonogram, biophysical profile assessment. Grayscale, color evaluation. FINDINGS: Living twin intrauterine identified. TWIN A: Presenting fetus, lower uterine segment, maternal right side, breech presentation body, cardiac activity noted. Heart rate 133 bpm. Maximum vertical pocket 3.5 cm. biometry: Not performed. anatomic assessment: Not performed. Placenta is not evaluated. BIOPHYSICAL PROFILE ASSESSMENT: movement: 0/2 tone: 2/2 breathin/2 fluid: 2/2 Total biophysical profile score: 6/8 TWIN B: Cephalic presentation, maternal left side body, cardiac activity noted, heart rate 152 bpm. Amniotic fluid: Maximum vertical pocket 5.2 cm. biometry: Not performed. anatomic assessment: Not performed. Placenta is not evaluated. BIOPHYSICAL PROFILE ASSESSMENT: movement: 2/2 tone: 2/2 breathin/2 fluid: 2/2 Total biophysical profile score: 8/8 US/US OB >= 14 wk fetus add gest IMPRESSION: 1. Living twin intrauterine . 2. Twin A. Maternal right side breech presentation, maximum vertical pocket 3.5 cm. Total biophysical profile score of 6/8. The fetus received a score of 0/2 for breathing parameter, 2/2 for remaining parameters. 3. Twin B. Maternal left side, cephalic presentation, maximum vertical pocket 5.2 cm. Total biophysical profile score 02/05 Electronically authenticated by: ANA TOBAR Date: 07/16/2023 18:09
--- OUTSIDE RECORDS SUMMARY | 2023-07-16 16:35 | XMS_ITS | CCD ---
Author Name Unknown Address [address] [place] [address] Organization [facility] Care Team Providers Care [place] Service Attendant Name Role Phone NO FAMILY, PHYSICIAN Primary Care Provider UnaNela Roberts Primary Care Provider [phone] SUKI CONDE Primary Care Physician [phone] AMAYA PROVIDER, SUKI Referring Unavailab le NILL, [...] DR SUKI Kong Primary Care Unavailable ANGIE OL Consulting Unavailable ELIZABETH ., DR GATICA Attending [...] Unavailable AMAYA, DR SUKI Kong Attending Unavailable WAPANUCKA, DR ANGIE Arce Consulting Unavailable REQUEST, DR [...] Medication Allergies] Propensity to adverse reactions (disorder) [facility] Repository Medications Current Medications Medication Drug Class(es) [...] 07/17/22 Status: Ordered take 2 tablets by [facility] once daily at bedtime Elavil [...] 07/17/22 Status: Ordered take 1 tablet by [facility] once daily Zofran 4 MG 1 tablet [...] 2 Episodic Other aftercare (1 source) Other longterm (current) drug therapy; 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 Gonzales in [place]. Twins are doing well, their growth is [...] EFW (oz) 12 oz EFW by: Hadlock (PIS-LA-KA-FL) [employer] 5.8 mm CM 3.9 mm 16% Nicolaides [...] mm 61 (more content not included)... Normal [facility] AMYLASEon 10-28-2022 Amylase [Catalytic activity/Vol] 35 U/L Normal 25-115 [facility] Comment on above: Performed By: #### C CARLYN DE JESUS AMY #### [facility] [address] [address] [address] Joe Shea CBC AUTO DIFFon 10-28-2022 BASO # 0.1 103/ul Normal 0.0-0.1 [facility] Comment on above: Performed By: #### C CARLYN DE JESUS AMY #### [facility] [address] [place], [place] [address] Dr. Joe Shea Basophils/100 WBC (Bld) 0.4 % Normal 0.2-2.0 [facility] Comment on above: Performed By: #### C MP, LIPA, NESTOR #### [facility] [address] [place] [address] Dr. Joe Shea EO # 0.1 103/ul Normal 0.0-0.7 [facility] Comment on above: Performed By: #### C NEAL LIPA, NESTOR #### [facility] [address] [place] [address] Dr. Joe Shea Eosinophils/100 WBC (Bld) 0.8 % Critically low 0.9-7. 0 [facility] Comment on above: Performed By: #### C NEAL LIPA, NESTOR #### [facility] [address] [place] [address] Dr. Joe Shea Erythrocyte distribution width (RBC) [Ratio] 13.2 % Normal 11.0-15.0 [facility] Comment on above: Performed By: #### C NEAL LIPA, NESTOR #### [facility] [address] [place] [address] Dr. Joe Shea Hematocrit (Bld) [Volume fraction] 37.2 % Normal 36.0-48.0 [facility] Comment on above: Performed By: #### C HUGO DE JESUSA, NESTOR #### [facility] [address] [place] [address] Dr. Joe Shea Hemoglobin (Bld) [Mass/Vol] 12.0 g/dL Normal 12.0-16.0 [facility] Comment on above: Performed By: #### C NEAL LIPA, NESTOR #### [facility] [address] [place] [address] Dr. Joe Shea IG # 0.03 10e3/ul Normal 0.00-0.03 [facility] Comment on above: Performed By: #### C HUGO DE JESUSA, NESTOR #### [facility] [address] [place] [address] Dr. Joe Shea IG % 0.2 % Normal 0.0-0.5 [facility] Comment on above: Performed By: #### C NEAL LIPA, NESTOR #### [facility] [address] [place] [address] Dr. Joe Shea LYMPH # 1.9 103/ul Normal 1.2-3.8 [facility] Comment on above: Performed By: #### C CARLYN DE JESUS AMY #### [facility] [address] [place] [address] Dr. Joe Shea Lymphocytes/100 WBC (Bld) 15.2 % Critically low 20.5-6 0.0 [facility] Comment on above: Performed By: #### C CARLYN DE JESUS, NESTOR #### [facility] [address] [place] [address] Dr. Joe Shea MANUAL DIFF REQ NO Normal [facility] Comment on above: Performed By: #### C CARLYN DE JESUS AMY #### [facility] [address] [place] [address] Dr. Joe Shea MCH (RBC) [Entitic mass] 28.4 pg Normal 26.7-34.0 [facility] Comment on above: Performed By: #### C CARLYN DE JESUS, NESTOR #### [facility] [address] [place] [address] Dr. Joe Shea MCHC (RBC) [Mass/Vol] 32.3 g/dL Normal 29.9-35.2 [facility] Comment on above: Performed By: #### C CARLYN DE JESUS NESTOR #### [facility] [address] [place] [address] Dr. Joe Shea MCV (RBC) [Entitic vol] 87.9 fL Normal 81.0-99.0 [facility] Comment on above: Performed By: #### C CARLYN DE JESUS, NESTOR #### [facility] [address] [place] [address] Dr. Joe Shea MONO # 0.9 103/ul Critically high 0.3-0.8 [facility] Comment on above: Performed By: #### C CARLYN DE JESUS, NESTOR #### [facility] [address] [place] [address] Dr. Joe Shea Monocytes/100 WBC (Bld) 7.1 % Normal 1.7-12.0 [facility] Comment on above: Performed By: #### C MP LIPA, NESTOR #### [facility] [address] [place] [address] Dr. Joe Shea NEUT # 9.5 103/ul Critically high 1.4-6.5 [facility] Comment on above: Performed By: #### C MP LIPA, NESTOR #### [facility] [address] [place] [address] Dr. Joe Shea Neutrophils/100 WBC (Bld) 76.3 % Critically high 43.0- 75.0 [facility] Comment on above: Performed By: #### C MP LIPA, NESTOR #### [facility] [address] [place] [address] Dr. Joe Shea Platelet mean volume (Bld) [Entitic vol] 10.8 fL Normal 9.5-13.5 [facility] Comment on above: Performed By: #### C NEAL LIPA, NESTOR #### [facility] [address] [place] [address] Dr. Joe Shea PLT 283 103/ul Normal 150-450 [facility] Comment on above: Performed By: #### C NEAL LIPA, NESTOR #### [facility] [address] [place] [address] Dr. Joe Shea RBC 4.23 106/ul Normal 4.20-5.40 [facility] Comment on above: Performed By: #### C NEAL LIPA, NESTOR #### [facility] [address] [place] [address] Dr. Joe Shea WBC 12.5 103/ul Critically high 4.0-11.0 [facility] Comment on above: Performed By: #### C NEAL LIPA, NESTOR #### [facility] [address] [place] [address] ABD/PELV W CONon [...] MISTI BREWER Date: 2022-10-28 18:31 Normal [facility] ER URINE PROFILEon 3 Bilirubin Ql (U) Negative Normal NEGATIVE The [facility] Comment on above: Performed By: #### L BCL #### [facility] [address] [place] [address] Dr. Joe Shea Clarity (U) CLEAR Normal CLEAR [facility] Comment on above: Performed By: #### L BARRY #### [facility] [address] [place] [address] Dr. Joe Shea Color (U) LT. YELLOW Normal YELLOW [facility] Comment on above: Performed By: #### L BARRY #### [facility] [address] [place] [address] Dr. Joe YUNG A micrscopic examination will be performed if indicated. Normal [facility] Comment on above: Performed By: #### L BARRY #### [facility] [address] [place] [address] Dr. Joe Shea Glucose Ql (U) Negative Normal NEGATIVE [facility] Comment on above: Performed By: #### L BCL #### [facility] [address] [place] [address] Dr. Joe Shea Hemoglobin Ql (U) Negative Normal NEGATIVE [facility] Comment on above: Performed By: #### L BCL #### [facility] [address] [place] [address] Dr. Joe Shea Ketones Ql (U) Negative Normal NEGATIVE [facility] Comment on above: Performed By: #### L BCL #### [facility] [address] [place] [address] Dr. Joe Shea LEUKOCYTES TRACE Abnormal NEGATIVE [facility] Comment on above: Performed By: #### L BCL #### [facility] [address] [place] [address] Dr. Joe Shea Nitrite Ql (U) Negative Normal NEGATIVE [facility] Comment on above: Performed By: #### L BCL #### [facility] [address] [place] [address] Dr. Joe Shea pH (U) 8.0 [pH] Normal 5-9 [facility] Comment on above: Performed By: #### L BCL #### [facility] [address] [place] [address] Dr. Joe Shea SPEC GRAVITY 1.015 Normal 1.005-<=1.02 5 [facility] Comment on above: Performed By: #### L BCL #### [facility] [address] [place] [address] Dr. Joe Shea UA PROTEIN Negative Normal NEGATIVE/ TRACE [facility] Comment on above: Performed By: #### L BCL #### [facility] [address] [place] [address] Dr. Joe Shea UR MICRO IND INDICATED Normal [facility] Comment on above: Performed By: #### L BCL #### [facility] [address] [place] [address] Dr. Joe Shea Urobilinogen Qn (U) 2.0 {Pascual'U}/dL Abnormal 0.2 - 1. 0 [facility] Comment on above: Performed By: #### L BCLH #### [facility] [address] [place] [address] Dr. Joe Shea LIPASEon 10-28-2022 Lipase [Catalytic activity/Vol] 93.0 U/L Normal 73.0-393.0 [facility] Comment on above: Performed By: #### C MP, LIPA, NESTOR #### [facility] [address] [place] [address] Dr. Joe Shea URon 10-28-2022 , QUAL Negative Normal NEGATIVE [facility] Comment on above: Performed By: #### L BCLH #### [facility] [address] [place] [address] Dr. Joe Shea PROF 14(COMP METB)on 023 Albumin [Mass/Vol] 4.1 g/dL Normal 3.4-5.0 [facility] Comment on above: Performed By: #### C MP, LIPA, NESTOR #### [facility] [address] [place] [address] Dr. Joe Shea Albumin/Globulin [Mass ratio] 1.2 {ratio} Normal [facility] Comment on above: Performed By: #### C MP, LIPA, NESTOR #### [facility] [address] [place] [address] Dr. Joe Shea ALP [Catalytic activity/Vol] 60 U/L Normal 46-116 [facility] Comment on above: Performed By: #### C MP, LIPA, NESTOR #### [facility] [address] [place] [address] Dr. Joe Shea ALT [Catalytic activity/Vol] 22 U/L Normal 14-59 [facility] Comment on above: Performed By: #### C MP, LIPA, NESTOR #### [facility] [address] [place] [address] Dr. Joe Shea Anion gap [Moles/Vol] 10.2 mmol/L Normal [facility] Comment on above: Performed By: #### C MP, LIPA, NESTOR #### [facility] [address] [address] [address] Joe Shea AST [Catalytic activity/Vol] 14 U/L Critically low 15-37 [facility] Comment on above: Performed By: #### C MP, LIPA, NESTOR #### [facility] [address] [address] [address] Joe Shea Bilirubin [Mass/Vol] 0.5 mg/dL Normal 0.2-1.0 [facility] Comment on above: Performed By: #### C MP, LIPA, NESTOR #### [facility] [address] [address] [address] Joe Shea Calcium [Mass/Vol] 8.9 mg/dL Normal 8.5-10.1 [facility] Comment on above: Performed By: #### C MP, LIPA, NESTOR #### [facility] [address] [place] [address] Dr. Joe Shea Chloride [Moles/Vol] 103 mmol/L Normal 98-107 [facility] Comment on above: Performed By: #### C MP, LIPA, NESTOR #### [facility] [address] [address] [address] Joe Shea CO2 [Moles/Vol] 28.1 mmol/L Normal 21.0-32.0 [facility] Comment on above: Performed By: #### C MP, LIPA, NESTOR #### [facility] [address] [address] [address] Joe Shea Creatinine [Mass/Vol] 0.77 mg/dL Normal 0.55-1.02 [facility] Comment on above: Performed By: #### C MP, LIPA, NESTOR #### [facility] [address] [address] [address] Joe Shea EGFR-AF SWISS >60 Normal >=60 [facility] Comment on above: Performed By: #### C MP, LIPA, NESTOR #### [facility] [address] [address] [address] oJe Shea EGFR-NON AF SWISS >60 Normal >=60 [facility] Comment on above: Performed By: #### C MP, LIPA, NESTOR #### [facility] [address] [address] [address] Joe Shae Globulin (S) [Mass/Vol] 3.5 g/dL Normal [facility] Comment on above: Performed By: #### C MP, LIPA, NESTOR #### [facility] [address] [address] [address] Joe Shea Glucose [Mass/Vol] 85 mg/dL Normal 74-106 [facility] Comment on above: Performed By: #### C MP, LIPA, NESTOR #### [facility] [address] [address] [address] Joe Shea Potassium [Moles/Vol] 3.3 mmol/L Critically low 3.5-5.1 [facility] Comment on above: Performed By: #### C MP, LIPA, NESTOR #### [facility] [address] [place] [address] Dr. Joe Shea Protein [Mass/Vol] 7.6 g/dL Normal 6.4-8.2 [facility] Comment on above: Performed By: #### C MP LIPA, NESTOR #### [facility] [address] [place] [address] Dr. Joe Shea Sodium [Moles/Vol] 138 mmol/L Normal 136-145 [facility] Comment on above: Performed By: #### C MP, LIPA, NESTOR #### [facility] [address] [address] [address] Joe Shea Urea nitrogen [Mass/Vol] 6.0 mg/dL Critically low 7.0-18. 0 [facility] Comment on above: Performed By: #### C MP, LIPA, NESTOR #### [facility] [address] [place] [address] Dr. Joe Shea Urea nitrogen/Creatinine [Mass ratio] 7.8 mg/mg Normal [facility] Comment on above: Performed By: #### C MP, LIPA, NESTOR #### [facility] [address] [place] [address] Dr. Joe Shea URINE MICROSCOPIC ONLYon BACTERIA NONE SEEN Normal NONE SEEN [facility] Comment on above: Performed By: #### L BCLH #### [facility] [address] [place] [address] Dr. Joe Shea Bacteria identified Cx Nom (U) NOT INDICATED Normal [facility] Comment on above: Performed By: #### L BCLH #### [facility] [address] [place] [address] Dr. Joe Shea CAST NONE SEEN Normal NONE SEEN [facility] Comment on above: Performed By: #### L BCLH #### [facility] [address] [place] [address] Dr. Joe Shea Crystals LM Nom (Urine sed) NONE SEEN Normal NONE SEEN [facility] Comment on above: Performed By: #### L BCLH #### [facility] [address] [place] [address] Dr. Joe Shea Epithelial cells LM Ql (Urine sed) FEW Abnormal NONE SEEN /RARE [facility] Comment on above: Performed By: #### L BCLH #### [facility] [address] [place] [address] Dr. Joe Shea MUCOUS NONE SEEN Normal NONE SEEN [facility] Comment on above: Performed By: #### L BCLH #### [facility] [address] [place] [address] Dr. Joe Shea RBC NONE SEEN Abnormal 0-2 [facility] Comment on above: Performed By: #### L BCLH #### [facility] [address] [place] [address] Dr. Joe Shea WBC 0-2 Abnormal NONE SEEN [facility] Comment on above: Performed By: #### L BCLH #### [facility] [address] [place] [address] Dr. Joe Shea LACTOFERRIN FECAL QUANTon Lactoferrin, Fecal, Quant. <1.00 Normal 0.00-7.24 [facility] Comment on above: Result Comment: Re sults [...] (IBS). Performed By: #### D TRESA #### [facility] [address] [address] [address] Joe Shea CALPROTECTIN, FECALon 2022 Calprotectin, Fecal 31 ug/g Normal 0-120 [facility] Comment on above: Result Comment: Conc entration Interpretation Follow-Up <16 - 50 ug/g Normal None >50 -120 ug/g Borderline Re-evaluate in 4-6 weeks >120 ug/g Abnormal Repeat as clinically indicated Performed By: #### C MP, LIPA, NESTOR #### [facility] [address] [place] [address] Dr. Joe Shea BOWEL DISORDERS EVALUATION R ULE-OUT CASCon 09-25-2022 Antigliadin 8 units Normal 0-19 [facility] Comment on above: Result Comment: Nega tive 0 - 19 Weak Positive 20 - 30 Moderate to Strong Positive >30 . Performed By: #### C BC #### [facility] [address] [place] [address] Dr. Joe Shea Atypical pANCA Negative Normal Negative [facility] Comment on above: Performed By: #### C BC #### [facility] [address] [address] [address] Joe Shea Note: [place] continues Normal [facility] Comment on above: Performed By: #### C BC #### [facility] [address] [address] [address] Joe Shea Note: Comment Normal [facility] Comment on above: Result Comment: Sugg estive of irritable bowel syndrome (IBS). Careful evaluation of the patient's history, physical examination, and application of [place] III diagnostic criteria may help to rule in or rule out the diagnosis of IBS. Subsequent testing for Fecal Calprotectin (157616) may be recommended. If IBD is strongly suspected, subsequent testing with the Crohn's Disease Prognostic Profile (783105) that includes anti- glycan antibodies AMCA, ALCA, ACCA, and Zulema may aid in differential diagnosis. Performed By: #### C BC #### [facility] [address] [place] [address] Dr. Joe Shea Saccharomyces Cer. IgG <20.0 Normal 0.0-24.9 [facility] Comment on above: Result Comment: Nega tive <20.0 Equivocal 20.1 - 24.9 Positive >or= 25.0 Performed By: #### C BC #### [facility] [address] [place] [address] Dr. Joe Shea tTG/DGP SCR Negative Normal Negative [facility] Comment on above: Result Comment: Ef fective September 21, 2022 this profile will be made non-orderable due to non-availability of reagents for tTG/DGP Combo. No replacement number is available at this time. For further information, please contact your local [facility]. Performed By: #### C BC #### [facility] [address] [place] [address] Dr. Joe Shea CBC AUTO DIFFon 09-19-2022 BASO # 0.1 103/ul Normal 0.0-0.1 [facility] Comment on above: Performed By: #### D TRESA #### [facility] [address] [place] [address] Dr. Joe Shea Basophils/100 WBC (Bld) 0.9 % Normal 0.2-2.0 [facility] Comment on above: Performed By: #### D LUIS ARMANDOUL #### [facility] [address] [place] [address] Dr. Joe Shea EO # 0.2 103/ul Normal 0.0-0.7 [facility] Comment on above: Performed By: #### D LUIS ARMANDOUL #### [facility] [address] [place] [address] Dr. Joe Shea Eosinophils/100 WBC (Bld) 2.4 % Normal 0.9-7.0 [facility] Comment on above: Performed By: #### Althea GTZ #### [facility] [address] [place] [address] Dr. Joe Shea Erythrocyte distribution width (RBC) [Ratio] 13.2 % Normal 11.0-15.0 [facility] Comment on above: Performed By: #### Althea GTZ #### [facility] [address] [place] [address] Dr. Joe Shea Hematocrit (Bld) [Volume fraction] 38.3 % Normal 36.0-48.0 [facility] Comment on above: Performed By: #### Althea GTZ #### [facility] [address] [place] [address] Dr. Joe Shea Hemoglobin (Bld) [Mass/Vol] 12.3 g/dL Normal 12.0-16.0 [facility] Comment on above: Performed By: #### Althea GTZ #### [facility] [address] [place] [address] Dr. Joe Shea IG # 0.02 10e3/ul Normal 0.00-0.03 [facility] Comment on above: Performed By: #### Althea GTZ #### [facility] [address] [place] [address] Dr. Joe Shea IG % 0.3 % Normal 0.0-0.5 [facility] Comment on above: Performed By: #### Althea GTZ #### [facility] [address] [place] [address] Dr. Joe Shea LYMPH # 1.7 103/ul Normal 1.2-3.8 [facility] Comment on above: Performed By: #### Althea GTZ #### [facility] [address] [place] [address] Dr. Joe Shea Lymphocytes/100 WBC (Bld) 24.6 % Normal 20.5-60.0 [facility] Comment on above: Performed By: #### Althea GTZ #### [facility] [address] [place] [address] Dr. Joe Shea MANUAL DIFF REQ NO Normal [facility] Comment on above: Performed By: #### Althea GTZ #### [facility] [address] [address] [address] Joe Shea MCH (RBC) [Entitic mass] 28.1 pg Normal 26.7-34.0 [facility] Comment on above: Performed By: #### Althea GTZ #### [facility] [address] [place] [address] Dr. Joe Shea MCHC (RBC) [Mass/Vol] 32.1 g/dL Normal 29.9-35.2 [facility] Comment on above: Performed By: #### Althea GTZ #### [facility] [address] [place] [address] Dr. Joe Shea MCV (RBC) [Entitic vol] 87.6 fL Normal 81.0-99.0 [facility] Comment on above: Performed By: #### Althea GTZ #### [facility] [address] [place] [address] Dr. Joe Shea MONO # 0.4 103/ul Normal 0.3-0.8 [facility] Comment on above: Performed By: #### Althea GTZ #### [facility] [address] [place] [address] Dr. Joe Shea Monocytes/100 WBC (Bld) 5.5 % Normal 1.7-12.0 [facility] Comment on above: Performed By: #### Althea GTZ #### [facility] [address] [place] [address] Dr. Joe Shea NEUT # 4.7 103/ul Normal 1.4-6.5 [facility] Comment on above: Performed By: #### Althea GTZ #### [facility] [address] [place] [address] Dr. Joe Shea Neutrophils/100 WBC (Bld) 66.3 % Normal 43.0-75.0 [facility] Comment on above: Performed By: #### Althea GTZ #### [facility] [address] [place] [address] Dr. Joe Shea Platelet mean volume (Bld) [Entitic vol] 11.4 fL Normal 9.5-13.5 [facility] Comment on above: Performed By: #### Althea GTZ #### [facility] [address] [place] [address] Dr. Joe Shea PLT 275 103/ul Normal 150-450 [facility] Comment on above: Performed By: #### Althea GTZ #### [facility] [address] [place] [address] Dr. Joe Shea RBC 4.37 106/ul Normal 4.20-5.40 [facility] Comment on above: Performed By: #### Althea GTZ #### [facility] [address] [place] [address] Dr. Joe Shea WBC 7.0 103/ul Normal 4.0-11.0 [facility] Comment on above: Performed By: #### Althea GTZ #### [facility] [address] [place] [address] Dr. Joe Shea PROF 14(COMP METB)on 023 Albumin [Mass/Vol] 4.4 g/dL Normal 3.4-5.0 [facility] Comment on above: Performed By: #### L DAIN #### [facility] [address] [place] [address] Dr. Joe Shea Albumin/Globulin [Mass ratio] 1.4 {ratio} Normal [facility] Comment on above: Performed By: #### L BCLShyla #### [facility] [address] [place] [address] Dr. Joe Shea ALP [Catalytic activity/Vol] 51 U/L Normal 46-116 [facility] Comment on above: Performed By: #### L BCLShyla #### [facility] [address] [place] [address] Dr. Joe Shea ALT [Catalytic activity/Vol] 20 U/L Normal 14-59 [facility] Comment on above: Performed By: #### L DAIN #### [facility] [address] [place] [address] Dr. Joe Shea Anion gap [Moles/Vol] 11.7 mmol/L Normal [facility] Comment on above: Performed By: #### L BCLH #### [facility] [address] [place] [address] Dr. Joe Shea AST [Catalytic activity/Vol] 17 U/L Normal 15-37 [facility] Comment on above: Performed By: #### L BCLH #### [facility] [address] [address] [address] Joe Shea Bilirubin [Mass/Vol] 0.4 mg/dL Normal 0.2-1.0 [facility] Comment on above: Performed By: #### L BCLH #### [facility] [address] [place] [address] Dr. Joe Shea Calcium [Mass/Vol] 9.3 mg/dL Normal 8.5-10.1 [facility] Comment on above: Performed By: #### L BCLH #### [facility] [address] [place] [address] Dr. Joe Shea Chloride [Moles/Vol] 104 mmol/L Normal 98-107 [facility] Comment on above: Performed By: #### L BCLH #### [facility] [address] [place] [address] Dr. Joe Shea CO2 [Moles/Vol] 28.5 mmol/L Normal 21.0-32.0 [facility] Comment on above: Performed By: #### L BCLH #### [facility] [address] [place] [address] Dr. Joe Shea Creatinine [Mass/Vol] 0.55 mg/dL Normal 0.55-1.02 [facility] Comment on above: Performed By: #### L BCLH #### [facility] [address] [place] [address] Dr. Joe Shea EGFR-AF SWISS >60 Normal >=60 [facility] Comment on above: Performed By: #### L BCLH #### [facility] [address] [place] [address] Dr. Joe Shea EGFR-NON AF SWISS >60 Normal >=60 [facility] Comment on above: Performed By: #### L BCLH #### [facility] [address] [address] [address] Joe Shea Globulin (S) [Mass/Vol] 3.1 g/dL Normal [facility] Comment on above: Performed By: #### L BCLH #### [facility] [address] [address] [address] Joe Shea Glucose [Mass/Vol] 90 mg/dL Normal 74-106 [facility] Comment on above: Performed By: #### L BCLH #### [facility] [address] [address] [address] Joe Shea Potassium [Moles/Vol] 4.2 mmol/L Normal 3.5-5.1 [facility] Comment on above: Performed By: #### L BCLH #### [facility] [address] [address] [address] Joe Shea Protein [Mass/Vol] 7.5 g/dL Normal 6.4-8.2 [facility] Comment on above: Performed By: #### L BCLH #### [facility] [address] [address] [address] Joe Shea Sodium [Moles/Vol] 140 mmol/L Normal 136-145 [facility] Comment on above: Performed By: #### L BCLH #### [facility] [address] [address] [address] Joe Shea Urea nitrogen [Mass/Vol] 6.0 mg/dL Critically low 7.0-18. 0 [facility] Comment on above: Performed By: #### L BCLH #### [facility] [address] [address] [address] Joe Shea Urea nitrogen/Creatinine [Mass ratio] 10.9 mg/mg Normal [facility] Comment on above: Performed By: #### L BCLH #### [facility] [address] [address] [address] Joe Shea PROTIMEon 09-19-2022 INR Coag (PPP) [Relative time] 1.08 {INR} Normal [facility] Comment on above: Performed By: #### L BCL #### [facility] [address] [place] [address] Dr. Joe Shea INR GUIDELINES SEE BELOW Normal [facility] Comment on above: Result Comment: CHICA RED INR: 2.0 - 3.0 CONDITIONS NOT LISTED BELOW 2.5 - 3.5 FOR PROSTHETIC HEART VALVE REPLACEMENT 2.5 - 3.5 RECURRENT THROMBOSIS Performed By: #### L BARRY #### [facility] [address] [address] [address] Joe Shea PT Coag (PPP) [Time] 11.4 s Normal 9.0-11.6 [facility] Comment on above: Performed By: #### L BARRY #### [facility] [address] [place] [address] Dr. Joe Shea TSHon 09-19-2022 TSH 0.957 uIU/mL Normal 0.358-3.740 [facility] Comment on above: Performed By: #### L [facility] #### [facility] [address] [place] [address] Dr. Joe Shea Pre-Certification Formon Pre-Certification Form [id number] 269#1.00CD:127 Normal [facility] Consent for Procedure/Surger yon 07-23-2022 Consent for Procedure/Surgery [id number]#1.00CD:127 Normal [facility] Facesheeton 07-19-2022 Facesheet [id number]#1.00CD:127 Normal [facility] CBC AUTO DIFFon 07-06-2022 BASO # 0.1 103/ul Normal 0.0-0.1 [facility] Comment on above: Performed By: #### C MP, LIPA, NESTOR #### [facility] [address] [place] [address] Dr. Joe Shea Basophils/100 WBC (Bld) 0.8 % Normal 0.2-2.0 [facility] Comment on above: Performed By: #### C CARLYN DE JESUS AMY #### [facility] [address] [place] [address] Dr. Joe Shea EO # 0.4 103/ul Normal 0.0-0.7 [facility] Comment on above: Performed By: #### C CARLYN DE JESUS NESTOR #### [facility] [address] [place] [address] Dr. Joe Shea Eosinophils/100 WBC (Bld) 4.2 % Normal 0.9-7.0 [facility] Comment on above: Performed By: #### C CARLYN DE JESUS AMY #### [facility] [address] [place] [address] Dr. Joe Shea Erythrocyte distribution width (RBC) [Ratio] 13.5 % Normal 11.0-15.0 [facility] Comment on above: Performed By: #### C CARLYN DE JESUS NESTOR #### [facility] [address] [place] [address] Dr. Joe Shea Hematocrit (Bld) [Volume fraction] 36.8 % Normal 36.0-48.0 [facility] Comment on above: Performed By: #### C CARLYN DE JESUS AMY #### [facility] [address] [place] [address] Dr. Joe Shea Hemoglobin (Bld) [Mass/Vol] 12.2 g/dL Normal 12.0-16.0 [facility] Comment on above: Performed By: #### C CARLYN DE JESUS, NESTOR #### [facility] [address] [place] [address] Dr. Joe Shea IG # 0.02 10e3/ul Normal 0.00-0.03 [facility] Comment on above: Performed By: #### C CARLYN DE JESUS, NESTOR #### [facility] [address] [place] [address] Dr. Joe Shea IG % 0.2 % Normal 0.0-0.5 [facility] Comment on above: Performed By: #### C MP, LIPA, NESTOR #### [facility] [address] [address] [address] Joe Shea LYMPH # 2.1 103/ul Normal 1.2-3.8 [facility] Comment on above: Performed By: #### C MP, LIPA, NESTOR #### [facility] [address] [address] [address] Joe Shea Lymphocytes/100 WBC (Bld) 20.3 % Critically low 20.5-6 0.0 [facility] Comment on above: Performed By: #### C MP, LIPA, NESTOR #### [facility] [address] [place] [address] Dr. Joe Shea MANUAL DIFF REQ NO Normal [facility] Comment on above: Performed By: #### C MP, LIPA, NESTOR #### [facility] [address] [place] [address] Dr. Joe Shea MCH (RBC) [Entitic mass] 28.6 pg Normal 26.7-34.0 [facility] Comment on above: Performed By: #### C MP, LIPA, NESTOR #### [facility] [address] [place] [address] Dr. Joe Shea MCHC (RBC) [Mass/Vol] 33.2 g/dL Normal 29.9-35.2 [facility] Comment on above: Performed By: #### C MP, LIPA, NESTOR #### [facility] [address] [place] [address] Dr. Joe Shea MCV (RBC) [Entitic vol] 86.4 fL Normal 81.0-99.0 [facility] Comment on above: Performed By: #### C MP, LIPA, NESTOR #### [facility] [address] [place] [address] Dr. Joe Shea MONO # 0.6 103/ul Normal 0.3-0.8 [facility] Comment on above: Performed By: #### C MP, LIPA, NESTOR #### [facility] [address] [place] [address] Dr. Joe Shea Monocytes/100 WBC (Bld) 5.5 % Normal 1.7-12.0 [facility] Comment on above: Performed By: #### C CARLYN DE JESUS NESTOR #### [facility] [address] [place] [address] Dr. Joe Shea NEUT # 7.2 103/ul Critically high 1.4-6.5 [facility] Comment on above: Performed By: #### C CARLYN DE JESUS, NESTOR #### [facility] [address] [place] [address] Dr. Joe Shea Neutrophils/100 WBC (Bld) 69.0 % Normal 43.0-75.0 [facility] Comment on above: Performed By: #### C CARLYN DE JESUS NESTOR #### [facility] [address] [place] [address] Dr. Joe Shea Platelet mean volume (Bld) [Entitic vol] 10.8 fL Normal 9.5-13.5 [facility] Comment on above: Performed By: #### C CARLYN DE JESUS NESTOR #### [facility] [address] [place] [address] Dr. Joe Shea PLT 316 103/ul Normal 150-450 [facility] Comment on above: Performed By: #### C CARLYN DE JESUS, NESTOR #### [facility] [address] [place] [address] Dr. Joe Shea RBC 4.26 106/ul Normal 4.20-5.40 [facility] Comment on above: Performed By: #### C CARLYN DE JESUS, NESTOR #### [facility] [address] [place] [address] Dr. Joe Shea WBC 10.4 103/ul Normal 4.0-11.0 [facility] Comment on above: Performed By: #### C CARLYN DE JESUS, NESTOR #### [facility] [address] [place] [address] Dr. Joe Shea PREG QUANT HCGon 07-06-2022 HCG QUANT <1 Normal [facility] Comment on above: Performed By: #### C CARLYN DE JESUS, NESTOR #### [facility] [address] [place] [address] Dr. Joe Shea HCG RANGE SEE BELOW Normal [facility] Comment on above: Result Comment: 5-50 0.2-1 WEEK 50-500 1-2 WEEKS 100-5,000 2-3 WEEKS 500-10,000 3-4 WEEKS 1,000-50,000 4-5 WEEKS 10,000-100,000 5-6 WEEKS 15,000-200,000 6-8 WEEKS 10,000-100,000 2-3 MONTHS Performed By: #### C CARLYN DE JESUS AMY #### [facility] [address] [place], [place] [address] Dr. Joe Shea HEPATITIS C ANTIBODYon 06-26 Hep C Virus Ab <0.1 Normal 0.0-0.9 [facility] Comment on above: Result Comment: Nega [...] Hepatitis C Virus (HCV) RNA, Diagnosis, MEGAN (438920) and Hepatitis C Virus (HCV) Antibody with reflex to Quantitative Real-time PCR ([id number]). Performed By: #### L [facility] #### [facility] [address] [place], [place] [address] Dr. Joe Shea Covid-19 PCR (CVDTB)on 05-31 SARS-CoV-2 (COVID-19) RNA MEGAN+probe Ql (Unsp spec) Not detected Normal NOT DETECTED [facility] Comment on above: Result Comment: This test is not yet approved or cleared by the [place] FDA. When there are no FDA-approved or cleared tests available, and other criteria are met, FDA can make tests available under an emergency access mechanism called an Emergency Use Authorization (EUA). The EUA for this test is supported by the [place] of Health and Human Service's (HHS's) declaration [...] SARS-CoV-2. Performed By: #### C VDTB #### [facility] [address] [place] [address] Dr. Joe Shea HEP B SURFACE ANTIGEN SCREEN on 06-12-2022 HBsAg Screen Negative Normal Negative [facility] Comment on above: Performed By: #### D HEASMARICRUZ #### [facility] [address] [place] [address] Dr. Joe Shea HIV 1 AND 2 WITH REFLEXon HIV Screen 4th Generation wRfx Non-Reactive Normal Non Reactive [facility] Comment on above: Result Comment: HIV Negative HIV-1/HIV-2 antibodies and HIV-1 p24 antigen were NOT detected. There is no laboratory evidence of HIV infection. Performed By: #### C MP, LIPA, NESTOR #### [facility] [address] [place] [address] Dr. Joe Shea RPR QUANTon 06-12-2022 Rapid Plasma Reagin, Quant Non-Reactive Normal NonRea< 1:1 [facility] Comment on above: Result Comment: Plea se Note: This test does not meet current guidelines for screening and diagnosis of syphilis. This test is intended for following treatment response in patients being treated for syphilis infection. To screen for syphilis infection, a reflex cascade that includes both RPR and a treponema-specific assay should be utilized, such as Treponema pallidum (Syphilis) Screening [place] (124989) or Rapid Plasma Reagin (RPR) Test With Reflex to Quantitative RPR and Confirmatory Treponema pallidum Antibodies ([id number]). Performed By: #### C MP, LIPA, NESTOR #### [facility] [address] [place] [address] Dr. Joe Shea Physician Referralon 022 Physician Referral [id number] A3#1.00CD:127 Normal [facility] US PELVIS AND TRANSVAGon [...] ANGIE MEJIA Date: 2022-05-31 17:18 Normal [facility] AMYLASEon 05-23-2022 Amylase [Catalytic activity/Vol] 24 U/L Critically low 25-115 [facility] Comment on above: Performed By: #### C CARLYN DE JESUS AMY #### [facility] [address] [place] [address] Dr. Joe Shea CBC AUTO DIFFon 05-23-2022 Eosinophils/100 WBC (Bld) 1.5 % Normal 0.9-7.0 [facility] Comment on above: Performed By: #### L BCL #### [facility] [address] [place] [address] Dr. Joe Shea Erythrocyte distribution width (RBC) [Ratio] 13.5 % Normal 11.0-15.0 [facility] Comment on above: Performed By: #### L BCL #### [facility] [address] [place] [address] Dr. Joe Shea Hematocrit (Bld) [Volume fraction] 33.0 % Critically low 36.0-48.0 [facility] Comment on above: Performed By: #### L BCLH #### [facility] [address] [address] [address] Joe Shea Hemoglobin (Bld) [Mass/Vol] 10.7 g/dL Critically low 12.0-16.0 [facility] Comment on above: Performed By: #### L BCLH #### [facility] [address] [place] [address] Dr. Joe Shea LYMPH # 1.2 103/ul Normal 1.2-3.8 [facility] Comment on above: Performed By: #### L BCLH #### [facility] [address] [place] [address] Dr. Joe Shea Lymphocytes/100 WBC (Bld) 20.2 % Critically low 20.5-6 0.0 [facility] Comment on above: Performed By: #### L BCLH #### [facility] [address] [place] [address] Dr. Joe Shea MCH (RBC) [Entitic mass] 28.0 pg Normal 26.7-34.0 [facility] Comment on above: Performed By: #### L BCLH #### [facility] [address] [place] [address] Dr. Joe Shea MCHC (RBC) [Mass/Vol] 32.4 g/dL Normal 29.9-35.2 [facility] Comment on above: Performed By: #### L BCLH #### [facility] [address] [place] [address] Dr. Joe Shea Monocytes/100 WBC (Bld) 7.9 % Normal 1.7-12.0 [facility] Comment on above: Performed By: #### L BCLH #### [facility] [address] [place] [address] Dr. Joe Shea Neutrophils/100 WBC (Bld) 69.9 % Normal 43.0-75.0 [facility] Comment on above: Performed By: #### L BCLH #### [facility] [address] [place] [address] Dr. Joe Shea Platelet mean volume (Bld) [Entitic vol] 10.6 fL Normal 9.5-13.5 [facility] Comment on above: Performed By: #### L BCLH #### [facility] [address] [place] [address] Dr. Joe Shea PLT 233 103/ul Normal 150-450 [facility] Comment on above: Performed By: #### L BCLH #### [facility] [address] [place] [address] Dr. Joe Shea RBC 3.82 106/ul Critically low 4.20-5.40 [facility] Comment on above: Performed By: #### L BCLH #### [facility] [address] [place] [address] Dr. Joe Shea WBC 6.1 103/ul Normal 4.0-11.0 [facility] Comment on above: Performed By: #### L BCLH #### [facility] [address] [place] [address] Dr. Joe Shea BASO # 0.0 103/ul Normal 0.0-0.1 [facility] Comment on above: Performed By: #### L BCLH #### [facility] [address] [place] [address] Dr. Joe Shea Performed By: #### C CARLYN DE JESUS AMY #### [facility] [address] [place] [address] Dr. Joe Shea Basophils/100 WBC (Bld) 0.3 % Normal 0.2-2.0 [facility] Comment on above: Performed By: #### L BCLH #### [facility] [address] [place] [address] Dr. Joe Shea Performed By: #### C CARLYN DE JESUS, NESTOR #### [facility] [address] [place] [address] Dr. Joe Shea EO # 0.1 103/ul Normal 0.0-0.7 [facility] Comment on above: Performed By: #### L BCLH #### [facility] [address] [place] [address] Dr. Joe Shea Performed By: #### C MP LIPA, NESTOR #### [facility] [address] [place] [address] Dr. Joe Shea Eosinophils/100 WBC (Bld) 1.9 % Normal 0.9-7.0 [facility] Comment on above: Performed By: #### C MP, LIPA, NESTOR #### [facility] [address] [place] [address] Dr. Joe Shea Erythrocyte distribution width (RBC) [Ratio] 13.4 % Normal 11.0-15.0 [facility] Comment on above: Performed By: #### C MP LIPA, NESTOR #### [facility] [address] [place] [address] Dr. Joe Shea Hematocrit (Bld) [Volume fraction] 32.3 % Critically low 36.0-48.0 [facility] Comment on above: Performed By: #### C MP LIPA, NESTOR #### [facility] [address] [place] [address] Dr. Joe Shea Hemoglobin (Bld) [Mass/Vol] 10.6 g/dL Critically low 12.0-16.0 [facility] Comment on above: Performed By: #### C NEAL LIPA, NESTOR #### [facility] [address] [place] [address] Dr. Joe Shea IG # 0.01 10e3/ul Normal 0.00-0.03 [facility] Comment on above: Performed By: #### L BCL #### [facility] [address] [place] [address] Dr. Joe Shea Performed By: #### C MP LIPA, NESTOR #### [facility] [address] [place] [address] Dr. Joe Shea IG % 0.2 % Normal 0.0-0.5 [facility] Comment on above: Performed By: #### L BCLH #### [facility] [address] [place] [address] Dr. Joe Shea Performed By: #### C NEAL LIPA, NESTOR #### [facility] [address] [place] [address] Dr. Joe Shea LYMPH # 1.0 103/ul Critically low 1.2-3.8 [facility] Comment on above: Performed By: #### C MP LIPA, NESTOR #### [facility] [address] [place] [address] Dr. Joe Shea Lymphocytes/100 WBC (Bld) 16.6 % Critically low 20.5-6 0.0 [facility] Comment on above: Performed By: #### C MP, LIPA, NESTOR #### [facility] [address] [place] [address] Dr. Joe Shea MANUAL DIFF REQ NO Normal [facility] Comment on above: Performed By: #### L BCLH #### [facility] [address] [place] [address] Dr. Joe Shea Performed By: #### C MP LIPA, NESTOR #### [facility] [address] [place] [address] Dr. Joe Shea MCH (RBC) [Entitic mass] 28.3 pg Normal 26.7-34.0 [facility] Comment on above: Performed By: #### C MP LIPA, NESTOR #### [facility] [address] [place] [address] Dr. Joe Shea MCHC (RBC) [Mass/Vol] 32.8 g/dL Normal 29.9-35.2 [facility] Comment on above: Performed By: #### C MP LIPA, NESTOR #### [facility] [address] [place] [address] Dr. Joe Shea MCV (RBC) [Entitic vol] 86.4 fL Normal 81.0-99.0 [facility] Comment on above: Performed By: #### L BCLH #### [facility] [address] [place] [address] Dr. Joe Shea Performed By: #### C MP, LIPA, NESTOR #### [facility] [address] [place] [address] Dr. Joe Shea MONO # 0.5 103/ul Normal 0.3-0.8 [facility] Comment on above: Performed By: #### L BCL #### [facility] [address] [place] [address] Dr. Joe Shea Performed By: #### C CARLYN DE JESUS, NESTOR #### [facility] [address] [place] [address] Dr. Joe Shea Monocytes/100 WBC (Bld) 9.1 % Normal 1.7-12.0 [facility] Comment on above: Performed By: #### C NEAL LIPA, NESTOR #### [facility] [address] [place] [address] Dr. Joe Shea NEUT # 4.3 103/ul Normal 1.4-6.5 [facility] Comment on above: Performed By: #### L BCL #### [facility] [address] [place] [address] Dr. Joe Shea Performed By: #### C HUGO DE JESUSA, NESTOR #### [facility] [address] [place] [address] Dr. Joe Shea Neutrophils/100 WBC (Bld) 71.9 % Normal 43.0-75.0 [facility] Comment on above: Performed By: #### C HUGO DE JESUSA, NESTOR #### [facility] [address] [place] [address] Dr. Joe Shea Platelet mean volume (Bld) [Entitic vol] 11.0 fL Normal 9.5-13.5 [facility] Comment on above: Performed By: #### C NEAL LIPA, NESTOR #### [facility] [address] [place] [address] Dr. Joe Shea PLT 224 103/ul Normal 150-450 [facility] Comment on above: Performed By: #### C HUGO DE JESUSA, NESTOR #### [facility] [address] [place] [address] Dr. Joe Shea RBC 3.74 106/ul Critically low 4.20-5.40 [facility] Comment on above: Performed By: #### C NEAL LIPA, NESTOR #### [facility] [address] [place] [address] Dr. Joe Shea WBC 5.9 103/ul Normal 4.0-11.0 [facility] Comment on above: Performed By: #### C CARLYN DE JESUS AMY #### [facility] [address] [place] [address] Dr. Joe MOORE URINE PROFILEon 2 Bilirubin Ql (U) Negative Normal NEGATIVE [facility] Comment on above: Performed By: #### L BCLH #### [facility] [address] [place] [address] Dr. Joe Shea Clarity (U) CLEAR Normal CLEAR [facility] Comment on above: Performed By: #### L BCLH #### [facility] [address] [place] [address] Dr. Joe Shea Color (U) LT. YELLOW Normal YELLOW [facility] Comment on above: Performed By: #### L BCL #### [facility] [address] [place] [address] Dr. Joe YUNG A micrscopic examination will be performed if indicated. Normal [facility] Comment on above: Performed By: #### L BCL #### [facility] [address] [place] [address] Dr. Joe Shea Glucose Ql (U) Negative Normal NEGATIVE [facility] Comment on above: Performed By: #### L BCLH #### [facility] [address] [place] [address] Dr. Joe Shea Hemoglobin Ql (U) Negative Normal NEGATIVE [facility] Comment on above: Performed By: #### L BCLH #### [facility] [address] [place] [address] Dr. Joe Shea Ketones Ql (U) Negative Normal NEGATIVE [facility] Comment on above: Performed By: #### L BCLH #### [facility] [address] [place] [address] Dr. Joe Shea LEUKOCYTES Negative Normal NEGATIVE [facility] Comment on above: Performed By: #### L BCLH #### [facility] [address] [place] [address] Dr. Joe Shea Nitrite Ql (U) Negative Normal NEGATIVE [facility] Comment on above: Performed By: #### L BCL #### [facility] [address] [place] [address] Dr. Joe Shea pH (U) 5.5 [pH] Normal 5-9 [facility] Comment on above: Performed By: #### L BCL #### [facility] [address] [address] [address] Joe Shea SPEC GRAVITY 1.020 Normal 1.005-<=1.02 5 [facility] Comment on above: Performed By: #### L BCL #### [facility] [address] [place] [address] Dr. Joe Shea UA PROTEIN Negative Normal NEGATIVE/ TRACE [facility] Comment on above: Performed By: #### L BCL #### [facility] [address] [place] [address] Dr. Joe Shea UR MICRO IND NOT INDICATED Normal [facility] Comment on above: Performed By: #### L BARRY #### [facility] [address] [place] [address] Dr. Joe Shea Urobilinogen Qn (U) 0.2 {Pascual'U}/dL Normal 0.2 - 1. 0 [facility] Comment on above: Performed By: #### L BCL #### [facility] [address] [place] [address] Dr. Joe Shea LIPASEon 05-23-2022 Lipase [Catalytic activity/Vol] 63.0 U/L Critically low 73.0-393.0 [facility] Comment on above: Performed By: #### C MP, LIPA, NESTOR #### [facility] [address] [place] [address] Dr. Joe Shea URon 05-23-2022 , QUAL Negative Normal NEGATIVE [facility] Comment on above: Performed By: #### C #### [facility] [address] [place] [address] Dr. Joe Shea PROF 14(COMP METB)on 022 Albumin [Mass/Vol] 3.7 g/dL Normal 3.4-5.0 [facility] Comment on above: Performed By: #### C CARLYN DE JESUS, NESTOR #### [facility] [address] [place] [address] Dr. Joe Shea Albumin/Globulin [Mass ratio] 1.4 {ratio} Normal [facility] Comment on above: Performed By: #### C CARLYN DE JESUS, NESTOR #### [facility] [address] [place] [address] Dr. Joe Shea ALP [Catalytic activity/Vol] 44 U/L Critically low 46-116 [facility] Comment on above: Performed By: #### C CARLYN DE JESUS, NESTOR #### [facility] [address] [place] [address] Dr. Joe Shea ALT [Catalytic activity/Vol] 24 U/L Normal 14-59 [facility] Comment on above: Performed By: #### C CARLYN DE JESUS, NESTOR #### [facility] [address] [place] [address] Dr. Joe Shea Anion gap [Moles/Vol] 9.1 mmol/L Normal [facility] Comment on above: Performed By: #### C CARLYN DE JESUS, NESTOR #### [facility] [address] [place] [address] Dr. Joe Shea AST [Catalytic activity/Vol] 18 U/L Normal 15-37 [facility] Comment on above: Performed By: #### C CARLYN DE JESUS, NESTOR #### [facility] [address] [place] [address] Dr. Joe Shea Bilirubin [Mass/Vol] 0.2 mg/dL Normal 0.2-1.0 [facility] Comment on above: Performed By: #### C CARLYN DE JESUS, NESTOR #### [facility] [address] [place] [address] Dr. Joe Shea Calcium [Mass/Vol] 8.3 mg/dL Critically low 8.5-10.1 [facility] Comment on above: Performed By: #### C CARLYN DE JESUS, NESTOR #### [facility] [address] [address] [address] Joe Shea Chloride [Moles/Vol] 105 mmol/L Normal 98-107 [facility] Comment on above: Performed By: #### C MP, LIPA, NESTOR #### [facility] [address] [address] [address] Joe Shea CO2 [Moles/Vol] 29.7 mmol/L Normal 21.0-32.0 [facility] Comment on above: Performed By: #### C MP, LIPA, NESTOR #### [facility] [address] [address] [address] Joe Shea Creatinine [Mass/Vol] 0.61 mg/dL Normal 0.55-1.02 [facility] Comment on above: Performed By: #### C MP, LIPA, NESTOR #### [facility] [address] [place] [address] Dr. Joe Shea EGFR-AF SWISS >60 Normal >=60 [facility] Comment on above: Performed By: #### C MP, LIPA, NESTOR #### [facility] [address] [place] [address] Dr. Joe Shea EGFR-NON AF SWISS >60 Normal >=60 [facility] Comment on above: Performed By: #### C MP, LIPA, NESTOR #### [facility] [address] [place] [address] Dr. Joe Shea Globulin (S) [Mass/Vol] 2.6 g/dL Normal [facility] Comment on above: Performed By: #### C MP, LIPA, NESTOR #### [facility] [address] [place] [address] Dr. Joe Shea Glucose [Mass/Vol] 92 mg/dL Normal 74-106 [facility] Comment on above: Performed By: #### C MP, LIPA, NESTOR #### [facility] [address] [address] [address] Joe Shea Potassium [Moles/Vol] 3.8 mmol/L Normal 3.5-5.1 [facility] Comment on above: Performed By: #### C MP, LIPA, NESTOR #### [facility] [address] [address] [address] Joe Shea Protein [Mass/Vol] 6.3 g/dL Critically low 6.4-8.2 [facility] Comment on above: Performed By: #### C MP, LIPA, NESTOR #### [facility] [address] [address] [address] Joe Shea Sodium [Moles/Vol] 140 mmol/L Normal 136-145 [facility] Comment on above: Performed By: #### C MP LIPA, NESTOR #### [facility] [address] [address] [address] Joe Shea Urea nitrogen [Mass/Vol] 9.0 mg/dL Normal 7.0-18.0 [facility] Comment on above: Performed By: #### C NEAL LIPA, NESTOR #### [facility] [address] [address] [address] Joe Shea Urea nitrogen/Creatinine [Mass ratio] 14.8 mg/mg Normal [facility] Comment on above: Performed By: #### C NEAL LIPA, NESTOR #### [facility] [address] [place] [address] Dr. Joe Shea US SINGLE QUAD RT [...] SHIRLEY PATEL Date: 2022-05-23 08:29 Normal [facility] AMYLASEon 05-22-2022 Amylase [Catalytic activity/Vol] 50 U/L Normal 25-115 [facility] Comment on above: Performed By: #### A MY, CMP, LIPA #### [facility] [address] [place] [address] Dr. Joe Shea CBC AUTO DIFFon 05-22-2022 BASO # 0.1 103/ul Normal 0.0-0.1 [facility] Comment on above: Performed By: #### C MP, LIPA, NESTOR #### [facility] [address] [place] [address] Dr. Joe Shea Basophils/100 WBC (Bld) 0.3 % Normal 0.2-2.0 [facility] Comment on above: Performed By: #### C MP, LIPA, NESTOR #### [facility] [address] [place] [address] Dr. Joe Shea EO # 0.0 103/ul Normal 0.0-0.7 [facility] Comment on above: Performed By: #### C MP, LIPA, NESTOR #### [facility] [address] [place] [address] Dr. Joe Shea Eosinophils/100 WBC (Bld) 0.2 % Critically low 0.9-7. 0 [facility] Comment on above: Performed By: #### C MP, LIPA, NESTOR #### [facility] [address] [place] [address] Dr. Joe Shea Erythrocyte distribution width (RBC) [Ratio] 13.3 % Normal 11.0-15.0 [facility] Comment on above: Performed By: #### C MP, LIPA, NESTOR #### [facility] [address] [place] [address] Dr. Joe Shea Hematocrit (Bld) [Volume fraction] 39.0 % Normal 36.0-48.0 [facility] Comment on above: Performed By: #### C MP, LIPA, NESTOR #### [facility] [address] [address] [address] Joe Shea Hemoglobin (Bld) [Mass/Vol] 12.7 g/dL Normal 12.0-16.0 [facility] Comment on above: Performed By: #### C MP, LIPA, NESTOR #### [facility] [address] [place] [address] Dr. Joe Shea IG # 0.05 10e3/ul Critically high 0.00-0.03 [facility] Comment on above: Performed By: #### C MP, LIPA, NESTOR #### [facility] [address] [place] [address] Dr. Joe Shea IG % 0.3 % Normal 0.0-0.5 [facility] Comment on above: Performed By: #### C MP, LIPA, NESTOR #### [facility] [address] [place] [address] Dr. Joe Shea LYMPH # 0.8 103/ul Critically low 1.2-3.8 [facility] Comment on above: Performed By: #### C MP, LIPA, NESTOR #### [facility] [address] [place] [address] Dr. Joe Shea Lymphocytes/100 WBC (Bld) 4.4 % Critically low 20.5-6 0.0 [facility] Comment on above: Performed By: #### C MP, LIPA, NESTOR #### [facility] [address] [place] [address] Dr. Joe Shea MANUAL DIFF REQ NO Normal [facility] Comment on above: Performed By: #### C MP, LIPA, NESTOR #### [facility] [address] [place] [address] Dr. Joe Shea MCH (RBC) [Entitic mass] 28.1 pg Normal 26.7-34.0 [facility] Comment on above: Performed By: #### C MP, LIPA, NESTOR #### [facility] [address] [place] [address] Dr. Joe Shea MCHC (RBC) [Mass/Vol] 32.6 g/dL Normal 29.9-35.2 [facility] Comment on above: Performed By: #### C NEAL LIPA, NESTOR #### [facility] [address] [place] [address] Dr. Joe Shea MCV (RBC) [Entitic vol] 86.3 fL Normal 81.0-99.0 [facility] Comment on above: Performed By: #### C NEAL LIPA, NESTOR #### [facility] [address] [place] [address] Dr. Joe Shea MONO # 0.4 103/ul Normal 0.3-0.8 [facility] Comment on above: Performed By: #### C NEAL LIPA, NESTOR #### [facility] [address] [place] [address] Dr. Joe Shea Monocytes/100 WBC (Bld) 2.2 % Normal 1.7-12.0 [facility] Comment on above: Performed By: #### C NEAL LIPA, NESTOR #### [facility] [address] [place] [address] Dr. Joe Shea NEUT # 16.7 103/ul Critically high 1.4-6.5 [facility] Comment on above: Performed By: #### C NEAL LIPA, NESTOR #### [facility] [address] [place] [address] Dr. Joe Shea Neutrophils/100 WBC (Bld) 92.6 % Critically high 43.0- 75.0 [facility] Comment on above: Performed By: #### C MP LIPA, NESTOR #### [facility] [address] [place] [address] Dr. Joe Shea Platelet mean volume (Bld) [Entitic vol] 11.0 fL Normal 9.5-13.5 [facility] Comment on above: Performed By: #### C MP LIPA, NESTOR #### [facility] [address] [place] [address] Dr. Joe Shea PLT 323 103/ul Normal 150-450 [facility] Comment on above: Performed By: #### C NEAL LIPA, NESTOR #### [facility] [address] [place] [address] Dr. Joe Shea RBC 4.52 106/ul Normal 4.20-5.40 [facility] Comment on above: Performed By: #### C CARLYN DE JESUS AMY #### [facility] [address] [place] [address] Dr. Joe Shea WBC 18.0 103/ul Critically high 4.0-11.0 [facility] Comment on above: Performed By: #### C CARLYN DE JESUS AMY #### [facility] [address] [place] [address] Dr. Joe Shea ER URINE PROFILEon 2 Bilirubin Ql (U) Negative Normal NEGATIVE The [facility] Comment on above: Performed By: #### Althea GTZ #### [facility] [address] [place] [address] Dr. Joe Shea Clarity (U) CLEAR Normal CLEAR [facility] Comment on above: Performed By: #### Althea GTZ #### [facility] [address] [place] [address] Dr. Joe Shea Color (U) YELLOW Normal YELLOW [facility] Comment on above: Performed By: #### Althea GTZ #### [facility] [address] [place] [address] Dr. Joe YUNG A micrscopic examination will be performed if indicated. Normal [facility] Comment on above: Performed By: #### Althea GTZ #### [facility] [address] [place] [address] Dr. Joe Shea Glucose Ql (U) Negative Normal NEGATIVE [facility] Comment on above: Performed By: #### Althea DURÁNUL #### [facility] [address] [place] [address] Dr. Joe Shea Hemoglobin Ql (U) Negative Normal NEGATIVE [facility] Comment on above: Performed By: #### Althea DURÁNUL #### [facility] [address] [place] [address] Dr. Joe Shea Ketones Ql (U) 15 mg/dl Abnormal NEGATIVE [facility] Comment on above: Performed By: #### Althea GTZ #### [facility] [address] [place] [address] Dr. Joe Seha LEUKOCYTES Negative Normal NEGATIVE [facility] Comment on above: Performed By: #### Althea GTZ #### [facility] [address] [place] [address] Dr. Joe Shea Nitrite Ql (U) Negative Normal NEGATIVE [facility] Comment on above: Performed By: #### Althea GTZ #### [facility] [address] [place] [address] Dr. Joe Shea pH (U) 5.5 [pH] Normal 5-9 [facility] Comment on above: Performed By: #### Althea GTZ #### [facility] [address] [place] [address] Dr. Joe Shea SPEC GRAVITY >=1.030 Abnormal 1.005-<=1.02 5 [facility] Comment on above: Performed By: #### Althea GTZ #### [facility] [address] [place] [address] Dr. Joe Shea UA PROTEIN Negative Normal NEGATIVE/ TRACE [facility] Comment on above: Performed By: #### Althea GTZ #### [facility] [address] [place] [address] Dr. Joe Shea UR MICRO IND NOT INDICATED Normal [facility] Comment on above: Performed By: #### Althea GTZ #### [facility] [address] [place] [address] Dr. Joe Shea Urobilinogen Qn (U) 1.0 {Pascual'U}/dL Normal 0.2 - 1. 0 [facility] Comment on above: Performed By: #### Althea GTZ #### [facility] [address] [place] [address] Dr. Joe Shea LACTATE/LACTIC ACIDon 2021 Lactate [Moles/Vol] 1.0 mmol/L Normal 0.4-1.9 [facility] Comment on above: Performed By: #### Darius BC #### [facility] [address] [place] [address] Dr. Joe Shea LIPASEon 05-22-2022 Lipase [Catalytic activity/Vol] 205.0 U/L Normal 73.0-393.0 [facility] Comment on above: Performed By: #### A MY, CMP, LIPA #### [facility] [address] [place], [place] [address] Dr. Joe Shea MRI BRAIN WO CONon [...] ANGIE LO Date: 2022-05-22 16:17 Normal [facility] URon 05-22-2022 , QUAL Negative Normal NEGATIVE [facility] Comment on above: Performed By: #### Althea GTZ #### [facility] [address] [address] [address] Joe Shea PROF 14(COMP METB)on 022 Albumin [Mass/Vol] 4.5 g/dL Normal 3.4-5.0 [facility] Comment on above: Performed By: #### Althea GTZ #### [facility] [address] [address] [address] Joe Shea Albumin/Globulin [Mass ratio] 1.4 {ratio} Normal [facility] Comment on above: Performed By: #### Althea GTZ #### [facility] [address] [address] [address] Joe Shea ALP [Catalytic activity/Vol] 60 U/L Normal 46-116 [facility] Comment on above: Performed By: #### Althea GTZ #### [facility] [address] [address] [address] Joe Shea ALT [Catalytic activity/Vol] 17 U/L Normal 14-59 [facility] Comment on above: Performed By: #### Althea GTZ #### [facility] [address] [address] [address] Joe Shea Anion gap [Moles/Vol] 10.9 mmol/L Normal [facility] Comment on above: Performed By: #### Althea GTZ #### [facility] [address] [address] [address] Joe Shea AST [Catalytic activity/Vol] 19 U/L Normal 15-37 [facility] Comment on above: Performed By: #### Althea GTZ #### [facility] [address] [address] [address] Joe Shea Bilirubin [Mass/Vol] 0.8 mg/dL Normal 0.2-1.0 [facility] Comment on above: Performed By: #### Althea GTZ #### [facility] [address] [address] [address] Joe Shea Calcium [Mass/Vol] 9.0 mg/dL Normal 8.5-10.1 [facility] Comment on above: Performed By: #### Althea GTZ #### [facility] [address] [address] [address] Joe Shea Chloride [Moles/Vol] 102 mmol/L Normal 98-107 [facility] Comment on above: Performed By: #### Althea GTZ #### [facility] [address] [address] [address] Joe Shea CO2 [Moles/Vol] 28.7 mmol/L Normal 21.0-32.0 [facility] Comment on above: Performed By: #### Althea GTZ #### [facility] [address] [address] [address] Joe Shea Creatinine [Mass/Vol] 0.73 mg/dL Normal 0.55-1.02 [facility] Comment on above: Performed By: #### Althea GTZ #### [facility] [address] [address] [address] Joe Shea EGFR-AF SWISS >60 Normal >=60 [facility] Comment on above: Performed By: #### Althea GTZ #### [facility] [address] [address] [address] Joe Shea EGFR-NON AF SWISS >60 Normal >=60 [facility] Comment on above: Performed By: #### Althea GTZ #### [facility] [address] [address] [address] Joe Shea Globulin (S) [Mass/Vol] 3.2 g/dL Normal [facility] Comment on above: Performed By: #### Althea GZT #### [facility] [address] [address] [address] Joe Shea Glucose [Mass/Vol] 113 mg/dL Critically high 74-106 [facility] Comment on above: Performed By: #### Althea GTZ #### [facility] [address] [address] [address] Joe Shea Potassium [Moles/Vol] 3.6 mmol/L Normal 3.5-5.1 [facility] Comment on above: Performed By: #### Althea GTZ #### [facility] [address] [address] [address] Joe Shea Protein [Mass/Vol] 7.7 g/dL Normal 6.4-8.2 [facility] Comment on above: Performed By: #### Althea GTZ #### [facility] [address] [address] [address] Joe Shea Sodium [Moles/Vol] 138 mmol/L Normal 136-145 [facility] Comment on above: Performed By: #### Althea GTZ #### [facility] [address] [address] [address] Joe Shea Urea nitrogen [Mass/Vol] 9.0 mg/dL Normal 7.0-18.0 [facility] Comment on above: Performed By: #### D TRESA #### [facility] [address] [place], [place] [address] Dr. Joe Shea Urea nitrogen/Creatinine [Mass ratio] 12.3 mg/mg Normal [facility] Comment on above: Performed By: #### D TRESA #### [facility] [address] [place], [place] [address] Dr. Joe Shea XR CHEST 2 Von [...] by: ANA COTE Date: 2022-05-22 02:56 Normal [facility] PROGESTERONEon 05-08-2022 Progesterone 18.1 ng/mL Normal [facility] Comment on above: Result Comment: Foll icular phase 0.1 - 0.9 Luteal phase 1.8 - 23.9 Ovulation phase 0.1 - 12.0 First trimester 11.0 - 44.3 Second trimester 25.4 - 83.3 Third trimester 58.7 - 214.0 Postmenopausal 0.0 - 0.1 Performed By: #### C BC #### [facility] [address] [place], [place] [address] Dr. Joe Shea DHEA SERUMon 04-12-2022 Dehydroepiandrosterone (DHEA) 577 ng/dL Normal [facility] Comment on above: Result Comment: Age [...] 89 Performed By: #### C BC #### [facility] [address] [place], [place] [address] Dr. Joe Shea PROGESTERONEon 04-10-2022 Progesterone 16.0 ng/mL Normal [facility] Comment on above: Result Comment: Foll icular phase 0.1 - 0.9 Luteal phase 1.8 - 23.9 Ovulation phase 0.1 - 12.0 First trimester 11.0 - 44.3 Second trimester 25.4 - 83.3 Third trimester 58.7 - 214.0 Postmenopausal 0.0 - 0.1 Performed By: #### Althea GTZ #### [facility] [address] [place] [address] Dr. Joe Shea DHEA-SULFATEon 04-06-2022 DHEA-Sulfate 241.0 ug/dL Normal 110.0-431.7 [facility] Comment on above: Performed By: #### Althea GTZ #### [facility] [address] [place] [address] Dr. Joe Shea FSHon 04-06-2022 FSH 6.6 mIU/mL Normal [facility] Comment on above: Result Comment: Adul t Female: Follicular phase 3.5 - 12.5 Ovulation phase 4.7 - 21.5 Luteal phase 1.7 - 7.7 Postmenopausal 25.8 - 134.8 Performed By: #### Althea GTZ #### [facility] [address] [place] [address] Dr. Joe Shea LUTEINIZING HORMONE (LH)on 1 LH 19.8 mIU/mL Normal [facility] Comment on above: Result Comment: Adul t Female: Follicular phase 2.4 - 12.6 Ovulation phase 14.0 - 95.6 Luteal phase 1.0 - 11.4 Postmenopausal 7.7 - 58.5 Performed By: #### L BCLH #### [facility] [address] [place] [address] Dr. Joe Shea CBC AUTO DIFFon 04-05-2022 BASO # 0.1 103/ul Normal 0.0-0.1 [facility] Comment on above: Performed By: #### C BC #### [facility] [address] [place] [address] Dr. Joe Shea Basophils/100 WBC (Bld) 0.9 % Normal 0.2-2.0 [facility] Comment on above: Performed By: #### C BC #### [facility] [address] [place] [address] Dr. Joe Shea EO # 0.2 103/ul Normal 0.0-0.7 [facility] Comment on above: Performed By: #### C BC #### [facility] [address] [place] [address] Dr. Joe Shea Eosinophils/100 WBC (Bld) 2.6 % Normal 0.9-7.0 [facility] Comment on above: Performed By: #### C BC #### [facility] [address] [place] [address] Dr. Joe Shea Erythrocyte distribution width (RBC) [Ratio] 13.1 % Normal 11.0-15.0 [facility] Comment on above: Performed By: #### C BC #### [facility] [address] [place] [address] Dr. Joe Shea Hematocrit (Bld) [Volume fraction] 38.2 % Normal 36.0-48.0 [facility] Comment on above: Performed By: #### C BC #### [facility] [address] [place] [address] Dr. Joe Shea Hemoglobin (Bld) [Mass/Vol] 12.3 g/dL Normal 12.0-16.0 [facility] Comment on above: Performed By: #### C BC #### [facility] [address] [place] [address] Dr. Joe Shea IG # 0.01 10e3/ul Normal 0.00-0.03 [facility] Comment on above: Performed By: #### C BC #### [facility] [address] [place] [address] Dr. Joe Shea IG % 0.2 % Normal 0.0-0.5 [facility] Comment on above: Performed By: #### C BC #### [facility] [address] [place] [address] Dr. Joe Shea LYMPH # 1.7 103/ul Normal 1.2-3.8 [facility] Comment on above: Performed By: #### C BC #### [facility] [address] [place] [address] Dr. Joe Shea Lymphocytes/100 WBC (Bld) 29.2 % Normal 20.5-60.0 [facility] Comment on above: Performed By: #### C BC #### [facility] [address] [place] [address] Dr. Joe Shea MANUAL DIFF REQ NO Normal [facility] Comment on above: Performed By: #### C BC #### [facility] [address] [place] [address] Dr. Joe Shea MCH (RBC) [Entitic mass] 28.4 pg Normal 26.7-34.0 [facility] Comment on above: Performed By: #### C BC #### [facility] [address] [place] [address] Dr. Joe Shea MCHC (RBC) [Mass/Vol] 32.2 g/dL Normal 29.9-35.2 [facility] Comment on above: Performed By: #### C BC #### [facility] [address] [place] [address] Dr. Joe Shea MCV (RBC) [Entitic vol] 88.2 fL Normal 81.0-99.0 [facility] Comment on above: Performed By: #### C BC #### [facility] [address] [place] [address] Dr. Joe Shea MONO # 0.5 103/ul Normal 0.3-0.8 [facility] Comment on above: Performed By: #### C BC #### [facility] [address] [place] [address] Dr. Joe Shea Monocytes/100 WBC (Bld) 8.2 % Normal 1.7-12.0 [facility] Comment on above: Performed By: #### C BC #### [facility] [address] [place] [address] Dr. Joe Shea NEUT # 3.4 103/ul Normal 1.4-6.5 [facility] Comment on above: Performed By: #### C BC #### [facility] [address] [place] [address] Dr. Joe Shea Neutrophils/100 WBC (Bld) 58.9 % Normal 43.0-75.0 [facility] Comment on above: Performed By: #### C BC #### [facility] [address] [place] [address] Dr. Joe Shea Platelet mean volume (Bld) [Entitic vol] 11.5 fL Normal 9.5-13.5 [facility] Comment on above: Performed By: #### C BC #### [facility] [address] [place] [address] Dr. Joe Shea PLT 233 103/ul Normal 150-450 [facility] Comment on above: Performed By: #### C BC #### [facility] [address] [place] [address] Dr. Joe Shea RBC 4.33 106/ul Normal 4.20-5.40 [facility] Comment on above: Performed By: #### C BC #### [facility] [address] [place] [address] Dr. Joe Shea WBC 5.8 103/ul Normal 4.0-11.0 [facility] Comment on above: Performed By: #### C BC #### [facility] [address] [place] [address] Dr. Joe Shea GLYCOHEMOGLOBIN A1Con 2021 ADA RECOMMENDATION SEE BELOW Normal [facility] Comment on above: Result Comment: ADA RECOMMENDED LIMIT 4.0 - 6.0 ADA THERAPEUTIC TARGET < 7.0 ACTION SUGGESTED > 7.0 Performed By: #### C CARLYN DE JESUS AMY #### [facility] [address] [place] [address] Dr. Joe Shea Glucose [Mass/Vol] 105 mg/dL Normal [facility] Comment on above: Performed By: #### C CARLYN DE JESUS AMY #### [facility] [address] [place] [address] Dr. Joe Shea HbA1c (Bld) [Mass fraction] 5.3 % Normal 4.5-6.2 [facility] Comment on above: Performed By: #### C CARLYN DE JESUS AMY #### [facility] [address] [place] [address] Dr. Joe Shea TSHon 04-05-2022 TSH 0.609 uIU/mL Normal 0.358-3.740 [facility] Comment on above: Performed By: #### C BC #### [facility] [address] [place] [address] Dr. Joe Shea US PELVIS AND TRANSVAGon [...] by: ANGIE MEJIA Date: 2022-04-05 17:23 Normal [facility] AMYLASEon 03-10-2022 Amylase [Catalytic activity/Vol] 64 U/L Normal 25-115 [facility] Comment on above: Performed By: #### C BC #### [facility] [address] [place] [address] Dr. Joe Shea CBC AUTO DIFFon 03-10-2022 BASO # 0.1 103/ul Normal 0.0-0.1 [facility] Comment on above: Performed By: #### C BC #### [facility] [address] [place] [address] Dr. Joe Shea Basophils/100 WBC (Bld) 0.6 % Normal 0.2-2.0 [facility] Comment on above: Performed By: #### C BC #### [facility] [address] [place] [address] Dr. Joe Shea EO # 0.3 103/ul Normal 0.0-0.7 [facility] Comment on above: Performed By: #### C BC #### [facility] [address] [place] [address] Dr. Joe Shea Eosinophils/100 WBC (Bld) 1.7 % Normal 0.9-7.0 [facility] Comment on above: Performed By: #### C BC #### [facility] [address] [place] [address] Dr. Joe Shea Erythrocyte distribution width (RBC) [Ratio] 13.1 % Normal 11.0-15.0 [facility] Comment on above: Performed By: #### C BC #### [facility] [address] [place] [address] Dr. Joe Shea Hematocrit (Bld) [Volume fraction] 37.9 % Normal 36.0-48.0 [facility] Comment on above: Performed By: #### C BC #### [facility] [address] [place] [address] Dr. Joe Shea Hemoglobin (Bld) [Mass/Vol] 12.2 g/dL Normal 12.0-16.0 [facility] Comment on above: Performed By: #### C BC #### [facility] [address] [place] [address] Dr. Joe Shea IG # 0.05 10e3/ul Critically high 0.00-0.[address] [facility] Comment on above: Performed By: #### C BC #### [facility] [address] [place] [address] Dr. Joe Shea IG % 0.3 % Normal 0.0-0.5 [facility] Comment on above: Performed By: #### C BC #### [facility] [address] [place] [address] Dr. Joe Shea LYMPH # 4.7 103/ul Critically high 1.2-3.8 [facility] Comment on above: Performed By: #### C BC #### [facility] [address] [place] [address] Dr. Joe Shea Lymphocytes/100 WBC (Bld) 28.3 % Normal 20.5-60.0 [facility] Comment on above: Performed By: #### C BC #### [facility] [address] [place] [address] Dr. Joe Shea MANUAL DIFF REQ NO Normal [facility] Comment on above: Performed By: #### C BC #### [facility] [address] [place] [address] Dr. Joe Shea MCH (RBC) [Entitic mass] 27.9 pg Normal 26.7-34.0 [facility] Comment on above: Performed By: #### C BC #### [facility] [address] [place] [address] Dr. Joe Shea MCHC (RBC) [Mass/Vol] 32.2 g/dL Normal 29.9-35.2 [facility] Comment on above: Performed By: #### C BC #### [facility] [address] [place] [address] Dr. Joe Shea MCV (RBC) [Entitic vol] 86.5 fL Normal 81.0-99.0 [facility] Comment on above: Performed By: #### C BC #### [facility] [address] [place] [address] Dr. Joe Shea MONO # 0.9 103/ul Critically high 0.3-0.8 [facility] Comment on above: Performed By: #### C BC #### [facility] [address] [place] [address] Dr. Joe Shea Monocytes/100 WBC (Bld) 5.5 % Normal 1.7-12.0 [facility] Comment on above: Performed By: #### C BC #### [facility] [address] [place] [address] Dr. Joe Shea NEUT # 10.5 103/ul Critically high 1.4-6.5 [facility] Comment on above: Performed By: #### C BC #### [facility] [address] [place] [address] Dr. Joe Shea Neutrophils/100 WBC (Bld) 63.6 % Normal 43.0-75.0 [facility] Comment on above: Performed By: #### C BC #### [facility] [address] [place] [address] Dr. Joe Shea Platelet mean volume (Bld) [Entitic vol] 11.1 fL Normal 9.5-13.5 [facility] Comment on above: Performed By: #### C BC #### [facility] [address] [place] [address] Dr. Joe Shea PLT 428 103/ul Normal 150-450 [facility] Comment on above: Performed By: #### C BC #### [facility] [address] [place] [address] Dr. Joe Shea RBC 4.38 106/ul Normal 4.20-5.40 [facility] Comment on above: Performed By: #### C BC #### [facility] [address] [place] [address] Dr. Joe Shea WBC 16.6 103/ul Critically high 4.0-11.0 [facility] Comment on above: Performed By: #### C BC #### [facility] [address] [place] [address] ABD/PELV W CONon [...] by: MURALI STRANGE Date: 2022-03-10 16:59 Normal [facility] LIPASEon 03-10-2022 Lipase [Catalytic activity/Vol] 81.0 U/L Normal 73.0-393.0 [facility] Comment on above: Performed By: #### C BC #### [facility] [address] [place] [address] Dr. Joe Shea LIVER PROFILEon 03-10-2022 Albumin [Mass/Vol] 4.2 g/dL Normal 3.4-5.0 [facility] Comment on above: Performed By: #### C BC #### [facility] [address] [place] [address] Dr. Joe Shea Albumin/Globulin [Mass ratio] 1.4 {ratio} Normal [facility] Comment on above: Performed By: #### C BC #### [facility] [address] [place] [address] Dr. Joe Shea ALP [Catalytic activity/Vol] 50 U/L Normal 46-116 [facility] Comment on above: Performed By: #### C BC #### [facility] [address] [place] [address] Dr. Joe Shea ALT [Catalytic activity/Vol] 14 U/L Normal 14-59 [facility] Comment on above: Performed By: #### C BC #### [facility] [address] [place] [address] Dr. Joe Shea AST [Catalytic activity/Vol] 13 U/L Critically low 15-37 [facility] Comment on above: Performed By: #### C BC #### [facility] [address] [place] [address] Dr. Joe Shea BILI, CONJUGATED 0.1 mg/dL Normal 0.0-0.2 [facility] Comment on above: Performed By: #### C BC #### [facility] [address] [place] [address] Dr. Joe Shea Bilirubin [Mass/Vol] 0.3 mg/dL Normal 0.2-1.0 [facility] Comment on above: Performed By: #### C BC #### [facility] [address] [address] [address] Joe Shea Globulin (S) [Mass/Vol] 3.1 g/dL Normal [facility] Comment on above: Performed By: #### C BC #### [facility] [address] [address] [address] Joe Shea Protein [Mass/Vol] 7.3 g/dL Normal 6.4-8.2 [facility] Comment on above: Performed By: #### C BC #### [facility] [address] [place] [address] Dr. Joe Shea PREG HCG QUALon 03-10-2022 , QUAL Negative Normal NEGATIVE [facility] Comment on above: Performed By: #### L BCLH #### [facility] [address] [place] [address] Dr. Joe Shea PROF CHEM 8 (BAS METB)on Anion gap [Moles/Vol] 17.6 mmol/L Normal [facility] Comment on above: Performed By: #### C MP, LIPA, NESTOR #### [facility] [address] [address] [address] Joe Shea Calcium [Mass/Vol] 9.0 mg/dL Normal 8.5-10.1 [facility] Comment on above: Performed By: #### C MP, LIPA, NESTOR #### [facility] [address] [place] [address] Dr. Joe Shea Chloride [Moles/Vol] 102 mmol/L Normal 98-107 [facility] Comment on above: Performed By: #### C MP, LIPA, NESTOR #### [facility] [address] [address] [address] Joe Shea CO2 [Moles/Vol] 23.4 mmol/L Normal 21.0-32.0 [facility] Comment on above: Performed By: #### C MP, LIPA, NESTOR #### [facility] [address] [address] [address] Joe Shea Creatinine [Mass/Vol] 0.84 mg/dL Normal 0.55-1.02 [facility] Comment on above: Performed By: #### C MP, LIPA, NESTOR #### [facility] [address] [address] [address] Joe Shea EGFR-AF SWISS >60 Normal >=60 [facility] Comment on above: Performed By: #### C MP, LIPA, NESTOR #### [facility] [address] [address] [address] Joe Shea EGFR-NON AF SWISS >60 Normal >=60 [facility] Comment on above: Performed By: #### C MP, LIPA, NESTOR #### [facility] [address] [address] [address] Joe Shea Glucose [Mass/Vol] 149 mg/dL Critically high 74-106 [facility] Comment on above: Performed By: #### C MP, LIPA, NESTOR #### [facility] [address] [address] [address] Joe Shea Potassium [Moles/Vol] 2.9 mmol/L Critically low 3.5-5.1 [facility] Comment on above: Performed By: #### C MP, LIPA, NESTOR #### [facility] [address] [address] [address] Joe Shea Sodium [Moles/Vol] 139 mmol/L Normal 136-145 [facility] Comment on above: Performed By: #### C MP, LIPA, NESTOR #### [facility] [address] [address] [address] Joe Shea Urea nitrogen [Mass/Vol] 11.0 mg/dL Normal 7.0-18.0 [facility] Comment on above: Performed By: #### C MP, LIPA, NESTOR #### [facility] [address] [address] [address] Joe Shea Urea nitrogen/Creatinine [Mass ratio] 13.1 mg/mg Normal [facility] Comment on above: Performed By: #### C CARLYN DE JESUS AMY #### [facility] [address] [address] [address] Joe Shea XR CSPINE 2_3 VIEWSon [...] by: ANGIE MEJIA Date: 2022-01-18 08:03 Normal [facility] C BP Strepon 12-23-2019 C BP Strep This is strictly a screening test for Strep Group A( Streptococcus pyogenes). No other pathogens will be noted. Final Backup plate negative for Group A Streptococus Resulted at [facility] Normal [facility] Comment on above: Performed By: #### B P #### [facility] (DEFAULT) [address] [place] [address] [facility] [address] [place] [address] Ambulatory Patient Education on 12-21-2019 Ambulatory Patient [...] a child 2 years or older. ? [id number] [employer]. [address] [place] [address], [place] [address]. All rights reserved. This information is not intended as a substitute for professional medical care. Always follow your healthcare professional's instructions. Strep today is Negative. Will send for culture to [facility] and notify if it returns positive. Take medication as prescribed. Discontinue for a negative strep culture. Discard and replace toothbrush after taking antibiotics for at least 24 hours. May use yroi-wjm-blqsozh Tylenol and Motrin for pain relief. May use of jkqu-jkx-nfrezuy Chloraseptic throat spray, lozenges, cool or warm [...] tabs, 0 Refill(s), 12/26/19 14:42:00 EDT, Pharmacy: [id number] [place] Trackon 12-21-2019 BVO Red Swab # 1 [facility] Comment on above: Performed By: #### [facility] #### [facility] [address] [place] [address] Urgent Care Office/Clinic No sabiha 12-21-2019 Urgent [...] POC: negative. Swab will be sent to [facility] for culture. We will call if positive and treat appropriately. Additional Vitals Body Mass Index Measured: 18.43 kg/m2 Peripheral Pulse Rate: 111 bpm High Assessment/Plan 1. Sore throat Strep today is Negative. Will send for culture to [facility] and notify if it returns positive. Take medication as prescribed. Discontinue for a negative strep culture. Discard and replace toothbrush after taking antibiotics for at least 24 hours. May use sski-smf-kqteexd Tylenol and Motrin for pain relief. May use of kzbm-oqi-ztusfvi Chloraseptic throat spray, lozenges, cool or warm [...] tabs, 0 Refill(s), 12/26/19 14:42:00 EDT, Pharmacy: [id number] Physician Comments Centor criteria reviewed. [...] by Rosa Fitch 12/21/19 15:01 EDT Normal [facility] Vital Signs Date Time Vital Sign Value Performing Clinician Facility 03-28-2023 10:16-0400 Body height 157.48 cm Referring Provider Unknown [id number] [address] [place] Work Phone: 03-28-2023 10:16-0400 Body mass index (BMI) [Ratio] 23.78 kg/m2 Referring Provider Unknown [id number] [address] [place] Work Phone: 03-28-2023 10:16-0400 Body surface area Derived from formula 1.59 m2 Referring Provider Unknown [id number] [address] [place] Work Phone: 03-28-2023 10:16-0400 Body weight 58.97 kg Referring Provider Unknown [id number] [address] [place] Work Phone: 03-28-2023 10:16-0400 Diastolic blood pressure 65 mm[Hg] Referring Provider Unknown [id number] [address] [place] Work Phone: 03-28-2023 10:16-0400 Heart rate 96 /min Referring Provider Unknown [id number] [address] [place] Work Phone: 03-28-2023 10:16-0400 Systolic blood pressure 107 mm[Hg] Referring Provider Unknown [id number] [address] [place] Work Phone: 03-28-2023 10:16-0400 0 1 Referring Provider Unknown [id number] [address] [place] Work Phone: Comment on above: [employer] 02-14-2023 09:15-0400 Body height 154.94 cm Filippo Larson Other [employer] Other 02-14-2023 09:15-0400 Body mass index (BMI) [Ratio] 21.73 kg/m2 Filippo Larson Other [employer] Other 02-14-2023 09:15-0400 Body weight 52.16 kg Filippo Larson Other [employer] Other 02-14-2023 09:15-0400 Diastolic blood pressure 68 mm[Hg] Filippo Larson Other [employer] Other 02-14-2023 09:15-0400 Systolic blood pressure 96 mm[Hg] Filippo Larson Other [employer] Other 07-17-2022 14:26-0500 Blood Pressure Location Mayito OBANDOL [facility] 07-17-2022 14:26-0500 Diastolic blood pressure 70 mm[Hg] May[facility] OBANDOL [facility] 07-17-2022 14:26-0500 Heart rate 70 /min Mayito LIM [facility] 07-17-2022 14:26-0500 Respiratory rate 16 /min Mayito OBANDOL [facility] 07-17-2022 14:26-0500 Systolic blood pressure 102 mm[Hg] Mayito LIM [facility] 03-09-2020 20:24-0400 BP Diastolic 61 mm[Hg] PHYSICIAN NO [facility] 03-09-2020 20:24-0400 BP Systolic 117 mm[Hg] PHYSICIAN NO [facility] 03-09-2020 20:24-0400 Pulse (Heart Rate) 85 /min PHYSICIAN NO [facility] 03-09-2020 20:24-0400 Pulse Oximetry 100 % PHYSICIAN NO [facility] 03-09-2020 20:24-0400 Respiratory Rate 24 /min PHYSICIAN NO [facility] 03-09-2020 18:49-0400 BMI (Body Mass Index) 20 kg/m2 PHYSICIAN NO [facility] 03-09-2020 18:49-0400 Body Temperature 98.7 [degF] PHYSICIAN NO [facility] 03-09-2020 18:49-0400 Body weight 49.7 kg PHYSICIAN NO [facility] 03-09-2020 18:49-0400 Height 157.48 cm PHYSICIAN NO [facility] Encounters Encounter Date Encounter Type Care Provider Facility Start: 07-09-2023 End: 07-09-2023 ambulatory CECIL QUINTANA Not Available Start: 07-08-2023 End: 07-08-2023 ambulatory LYLY SMITH [facility] Start: 07-08-2023 End: 07-08-2023 Office outpatient visit 15 minutes Paulie Cervantes MD Work Phone: Maternal- Medicine at [facility] Comment on above: 34 weeks gestation o f (Primary Dx); Poor growth affecting management of mother in third trimester, fetus 1 of multiple gestation; Dichorionic diamniotic twin in third trimester; Anxiety during Start: 07-04-2023 Orders Only Freddy Christensen rnal- Medicine at [facility] Comment on above: Dichorionic diamniot ic twin [...] new/estab patient 80 min Referring Provider Unknown [id number] [address] [place] Work Phone: Start: 03-28-2023 Patient encounter procedure Referring Provider Unknown [id number] [address] [place] Work Phone: Start: 03-28-2023 ambulatory Ramakrishnanando Schwarz Facility :[facility] Start: 02-14-2023 End: 02-14-2023 ambulatory Filippo Larson Other [employer] Other Start: 02-14-2023 Office outpatient vi sit 15 minutes Filippo Larson [facility] Start: 11-28-2022 End: 11-28-[address] [...] laboratory examination DR CECIL QUINTANA . [facility] Start: 07-06-2022 End: 07-07-[address] CECIL QUINTANA . Facility:[facility] Start: 07-06-2022 End: 07-07-2022 Encounter for preprocedural laboratory examination DR CECIL QUINTANA . Facility:[facility] Start: 06-15-2022 End: 06-16-[address] CECIL QUINTANA . Facility:[facility] Start: 06-11-2022 End: 06-12-2022 ambulatory JUANJOSE VIRAMONTES Facility:[facility] Start: 06-08-2022 ambulatory SUKI CONDE PROVIDER Facility:[facility] Start: 05-31-2022 End: 06-01-[address] CECIL [...] Emergency department patient visit PHYSICIAN KIMI RO [facility] Start: 04-27-2014 End: 04-27-2014 Telephone encounter Noa Dimas MD Work Phone: Reproductive Endocrinology Infertility Procedures Date Procedure Procedure Detail Performing Clinician Start: 10-25-2020 Microscopic observation [Identifier] in Cervix by Cyto stain Freddy Hughes [employer] ENGINEER Colonoscopy Mayito OBANDOL Dilation and curettage Temo OBANDOL Dilation and curettage Temo douglass NILL Esophagogastroduodenoscopy M ichdemar NILL Excision of cyst of ovary Mi real NILL Laparoscopy Mayito NILL Plan of Treatment Date Care Activity Detail Author Start: 05-28-2032 DTaP,Tdap and Td Vaccines (8 - Td or Tdap) DTaP,Tdap and Td Vaccines (8 - Td or Tdap) [facility] Start: 07-04-2024 End: 07-04-2024 US MFM with or without consult US MFM with or without consult Imaging Routine Dichorionic diamniotic twin in third trimester Poor growth affecting management of mother in third trimester, fetus 1 of multiple gestation Expected: 07/04/2024 (Approximate), Expires: 07/04/2024 [facility] [employer] Work Phone: Comment on above: Expected: 07/04/2024 (Approximate), Expires: 07/04/2024 Start: 06-03-2024 Adult BMI Screening Adult BMI Screen ing [facility] Start: 06-03-2024 Tobacco Screening Tobacco Screening [facility] Start: 2024 Screening for Chlamy carroll trachomatis Chlamydia Screening [facility] Start: 10-26-2023 Screening for malign ant neoplasm of cervix Pap Smear [facility] Start: 07-17-2023 End: 07-17-2023 Patient encounter procedure 07/17/2023 9:30 AM EST Appointment [facility] [address] [place] [phone] [facility] Start: 07-08-2023 End: 07-08-2023 Telemedicine consultation with patient 07/08/2023 1:00 PM EST Telemedicine Maternal- Medicine at [facility] [address] [place] [phone] Paulie Cervantes MD [address] [facility] [place] [address] Lyly Smith MD [address] [facility] 1[address] [place] [address] Maternal- Medicine at [facility] Start: 03-01-2023 Influenza vaccination Influenza Vacc ine [facility] Start: 03-01-2021 Influenza vaccination INFLUENZ A (Season Ended) [facility] Start: 02-28-2020 PAP TESTING PAP TESTING [facility] Start: 2018 Urine microalbumin profile DTAP,TDAP,TD (1 - Tdap) [facility] Start: 2017 Adult BMI Follow Up Plan Adult BMI Follow Up Plan [facility] Start: 2017 CHLAMYDIA SCREENING (18-24) CHLAMYDIA SCREENING (18-24) [facility] Start: 2017 GC (GONORRHEA) SCREE KRUNAL (18-24) GC (GONORRHEA) SCREENING (18-24) [facility] Start: 2017 HEPATITIS C SCREENING HEPATITIS C SC REENING [facility] Start: 2017 HIV SCREENING HIV SCREENING [facility] Start: 2011 Adult depression screening assessment DEPRESSION SCREENING [facility] Start: 2010 HPV VACCINE (1 - 2-d ose series) HPV VACCINE (1 - 2-dose series) [facility] Patient Education Anxiety (ED) [facility] Patient referral [facility] Immunizations Immunization Date Immunization Notes Care Provider Fa cility 01-05-2022 influenza virus vaccine, unspecified formulation Freddy Hughes [facility] NEGATED: Highlighted row has not occurred!07-17-2022 influenza virus vaccine, unspecified formulation Mayito LIM [facility] Payers Date Payer Category Payer Unknown 2013 Unknown [facility] [employer] [place] [employer] [id number] 2013-2014 PPO [id number] 1999 Unknown [id number] 2.16.840.1.601715.3.579.2.727 1999 Unknown [id number] 2.16.840.1.064323.3.579.2.727 1999 Unknown [id number] 2.16.840.1.407946.3.579.2.593 1999 Unknown [id number] 2.16.840.1.480314.3.579.2.593 1999 Unknown [id number] 2.16.840.1.324122.3.579.2.593 1999 Unknown [id number] 2.16.840.1.295287.3.579.2.593 1999 Unknown [id number] 2.16.840.1.380317.3.579.2.593 1999 Unknown [id number] 2.16.840.1.619072.3.579.2.593 1999 Unknown [id number] 2.16.840.1.822219.3.579.2.593 1999 Unknown [id number] 2.16.840.1.901775.3.579.2.593 1999 Unknown [id number] 2.16.840.1.943256.3.579.2.593 1999 Unknown [id number] 2.16.840.1.054098.3.579.2.593 1999 Unknown [id number] 2.16.840.1.648121.3.579.2.593 1999 Unknown [id number] 2.16.840.1.845110.3.579.2.593 1999 Unknown [id number] 2.16.840.1.347123.3.579.2.593 1999 Unknown [id number] 2.16.840.1.564787.3.579.2.593 1999 Unknown [id number] 2.16.840.1.690003.3.579.2.593 1999 Unknown [id number] 2.16.840.1.778999.3.579.2.593 1999 Unknown [id number] 2.16.840.1.797281.3.579.2.593 1999 Unknown [id number] 2.16.840.1.587894.3.579.2.593 1999 Unknown [id number] 2.16.840.1.689847.3.579.2.593 1999 Unknown [id number] 2.16.840.1.312503.3.579.2.593 1999 Unknown [id number] 2.16.840.1.135470.3.579.2.593 1999 Unknown [id number] 2.16.840.1.829649.3.579.2.356 1999 Unknown [id number] 2.16.840.1.085223.3.579.2.1259 1999 Unknown [id number] 2.16.840.1.816750.3.579.2.1259 1999 Unknown [id number] 2.16.840.1.773193.3.579.2.1259 1999 Unknown [id number] 2.16.840.1.755344.3.579.2.1259 1999 Unknown [id number] 2.16.840.1.851894.3.579.2.1286 1999 Unknown [id number] 2.16.840.1.135869.3.579.2.1286 1959 Unknown [id number] 1959 Unknown [id number] 1959 Unknown [id number] Self-pay Self Pay [id number] Unknown Self Pay [id number] Social History Date Type Detail Facility Start: 03-09-2020 Tobacco smoking status NHIS Smoker (finding) [facility] Start: 1999 Sex Assigned At Female [facility] Start: 04-12-2014 Tobacco smoking status NHIS Never smoker [facility] Start: 04-12-2014 End: 04-01-2023 Tobacco use and exposure Never used [facility] Start: 04-12-2014 Alcohol intake Current non-dr pillow agent of alcohol (finding) [facility] Start: 1999 Sex Assigned At Not on file [facility] Start: 07-17-2022 End: 04-01-2023 Tobacco smoking status Ex-smoker (finding) [facility] Tobacco smoking status Smokeless tobacco user within last 30 days [facility] Start: 06-03-2023 Sex Assigned At Female [facility] Start: 04-01-2023 End: 06-03-2023 No alcohol use No alcohol use [facility] History of tobacco use Cigarette Smoker [facility] Start: 06-03-2023 Alcohol intake Ex-drinker (finding) [facility] Start: 10-25-2020 [facility] Start: 11-22-2022 [facility] NEGATED: Highlighted row Denies History of domestic violence Denies History of domestic violence [id number] [address] [place] Work Phone: Goals Date Patient Goal Desired Activity /State Functional Status Date Assessment Result Facility 07-17-2022 Functional Status N/A [facility] Clinical Notes 04-27-2014 to 07-08-2023 Lyly Smith MD - 07/08/2023 1:00 PM EST Note Date & Type Note Facility 07-08-2023 History of Present illness Narrative Video Visit via Real-time Synchronous Audiovisual Provider Location: [facility] MATERNAL- MEDICINE AT [address] [id number] Patient Location: Patient Location Manager Packaging: None Video Visit Consent Statement: I discussed [...] that there are some limitations compared to [id number]-[id number] evaluations. We elected to proceed. REASON FOR [...] and B, status post 2nd opinion at [facility] Anxiety/ depression, managed on citalopram 40 [...] and B, status post 2nd opinion at [facility] COUNSELING We reviewed signs symptoms of [...] Serial Doppler studies for growth restriction at [facility] office, Doppler studies remain normal, repeat on 07/17/2023 Delivery scheduled at 37 weeks' gestation with primary OB at local hospital, primary due to male presentation of twin a, breech Patient is scheduled for repeat umbilical artery Doppler assessment in 2 weeks, no future clinic visits with [facility] Thank you for allowing me to participate in Shanon Louise care. If there are any questions, please do not hesitate to call me. Lyly Smith MD Maternal- Medicine [facility] [address] [place] [address] documented in this encounter [facility] 02-14-2023 Evaluation note Encounter Date Diagnosis Assessment [...] needed. Retrun visit here in three months. [facility] Other 01-20-2023 NoteChief Complaint consultation for epigastric [...] Reports colonoscopy completed several years ago at [facility] was normal. History of Present Illness 23 [...] more than 30 da (more content not included)...[facility]:Result Comment: Electronically Signed By: RAPHAEL MACIAS, Mayito Matthews\Date and Time Signed: 07/20/22 14:58 [id number] Note OPERATIVE NOTE OPERATION DATE: 07/10/2021 PROCEDURE: Diagnostic laparoscopy with chromopertubation. PREOPERATIVE DIAGNOSIS: Pelvic pain. POSTOPERATIVE DIAGNOSIS: Pelvic pain, including small endometrial implant posterior cul-de-sac, as well as possible blunted tube on the patient's left side. ANESTHESIA: General. SURGEON: Cecil Quintana D.O. WILDLIFE AND GAME PROTECTOR: ISAURO Mccoy URINE OUTPUT: Yellow and clear. BLOOD LOSS: 5 mL. FINDINGS: Slightly blunted tube on the left side, endometriosis posterior cul-de-sac, otherwise normal appearing uterus, tubes and ovaries. Normal appearing appendix. Some adhesions of the bowel to the pelvic and abdominal side wall on the patient's right side. Normal appearing liver. No evidence of Xlaj-Rxsa-Ixekbc syndrome. PROCEDURE: The patient was taken back [...] [facility] Note OPERATION DATE: 07/10/2022 PROCEDURE: Diagnostic laparoscopy with chromopertubation. PREOPERATIVE DIAGNOSIS: Pelvic pain, suspected endometriosis, fallopian tube disorder. POSTOPERATIVE DIAGNOSIS: Pelvic pain, suspected endometriosis, fallopian tube disorder, including mild endometriosis, bilateral patent fallopian tubes, small bowel adhesion to the pelvic side wall. ANESTHESIA: General. SURGEON: Cecil Quintana D.O. WILDLIFE AND GAME PROTECTOR: ISAURO Mccoy URINE OUTPUT: Yellow and clear. BLOOD LOSS: 5 mL. ADDENDUM: Please note that chromopertubation was performed after methylene blue was placed through the HUMI manipulator. Spillage of methylene blue could be seen from both tubes.[id number] Instructions* Patient Instructions* [facility] - 04/27/2014 4:49 PM EDT [phone] - Patient mother would like to speak with a nurse concerning medications that her daughter is taking. [facility] N[facility] - Reported * the patient is seen at the request of Dr. Gonzales at [facility] for consultation regarding second opinion for placental hemorrhage; EDC 08/15/2023 * FC MA [id number] [address] [place] Work Phone: chiaj complaint Narrative - Reported* the patient is seen at the request of Dr. Gonzales at [facility] for consultation regarding second opinion for placental hemorrhage; EDC 08/15/2023 * FC MA [id number] [address] [place] Work Phone: evaluation + Plan note No data available for this section [facility] Evaluation note* Diagnosis Dichorionic diamniotic twin in third trimester- Primary Poor growth affecting management of mother in third trimester, fetus 1 of multiple gestation [facility] Diagnosis 34 weeks gestation of - Primary Poor growth affecting management of mother in third trimester, fetus 1 of multiple gestation Dichorionic diamniotic twin in third trimester Anxiety during [facility] Narrative - Reported* Type Description Date Medical History Anxiety Medical History GERD (gastroesophageal reflux di sease) Medical History bipolar Surgical History LAPAROSCOPY-times 2 2013 [facility]ization [facility] & CT scans 12/2022 [facility] Other Hospital Discharge instructions No data available for this section [facility] InstructionsNot on filedocumented in this encounter [facility] on filedocumented in this encounter [facility] No data available for this [...] fetus 1 of multiple gestation Procedures US [facility] with or without consult Amadeo Heaton MD [address] [facility] [address] [place] [address] [facility] Maternal Med [address] [place] [address] Referral ID Status Reason Start Date Expiration Date V isits Requested Visits Authorized [id number] Pending Review 07/04/2023 07/03/2024 1 1 Additional Source Comments INFORMATION SOURCE (unrecogn ized section and content) DATE CREATED AUTHOR 02/04/2020 [facility] DATE CREATED AUTHOR AUTHOR'S ORGANIZ ATION 08/16/2022 [facility] DATE CREATED AUTHOR AUTHOR'S ORGANIZ ATION 12/07/2022 [facility] DATE CREATED AUTHOR AUTHOR'S ORGANIZ ATION 04/06/2023 [facility] DATE CREATED AUTHOR AUTHOR'S ORGANIZ ATION 07/10/2023 [facility] EPIC DATE CREATED AUTHOR AUTHOR'S FRANK ATION 07/12/2023 [facility] Source Comments (unrecognize d section and content) In the event this informatio n is protected by the Federal Confidentiality of Alcohol and Drug Abuse Patient Records regulations: The Federal rules restrict any use of the information to criminally investigate or prosecute any alcohol or drug abuse patient.[facility] Patient Care team informatio n (unrecognized section and content) [employer] Service Att[employer] Relationship Specialty Start Date End Date No Pcp, [place] [address] PCP - General Family Medicine 10/25/20 [employer] Service Att[employer] Relationship Specialty Start Date End Date No Pcp, [place] [address] PCP - General Family Medicine 10/25/20 REASON [...] BE BASED ON THE PRIMARY CLINICAL RECORDS. [employer] [facility]. provides no warranty or guarantee of the accuracy or completeness of information in this document.
--- OUTSIDE RECORDS SUMMARY | 2023-07-16 16:41 | XMS_ITS | CCD ---
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 Phone NO FAMILY, PHYSICIAN Primary [...] Unavailable JORGE, DR SHIRLEY Thapa [employer] Unavailable MAAYA, DR SUKI Kong Primary Care Unavailable EUSEBIO [...] Unavailable AMAYA, DR SUKI Kong Attending Unavailable PRESCOTT, DR ANGIE Arce Consulting Unavailable REQUEST, DR NONE LISTED Primary Care Unavaila caitie CONDE, DR SUKI Kong Consulting Unavailable Filippo Larson Unavailable [phone] Unknown, Referring Provider Unavailable Unav ailable [...] Medication Allergies] Propensity to adverse reactions (disorder) [facility] Repository Medications Current Medications Medication Drug [...] 07/17/22 Status: Ordered take 2 tablets by [facility] once daily at bedtime Elavil 25 [...] 07/17/22 Status: Ordered take 1 tablet by the [facility] once daily Zofran 4 MG 1 [...] 2 Episodic Other aftercare (1 source) Other jail (current) drug therapy; 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 Gonzales in [place]. 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 Joe Shea CBC AUTO DIFFon 10-28-2022 BASO # 0.1 103/ul Normal 0.0-0.1 [facility] Comment on above: Performed By: #### C CARLYN DE JESUS AMY #### [facility] [address] [place], [place] [address] Dr. Joe Shea Basophils/100 WBC (Bld) 0.4 % Normal 0.2-2.0 [facility] Comment on above: Performed By: #### C MP, LIPA, NESTOR #### [facility] [address] [place] [address] Dr. Joe Shea EO # 0.1 103/ul Normal 0.0-0.7 [facility] Comment on above: Performed By: #### C NEAL LIPA, NESTOR #### [facility] [address] [place] [address] Dr. Joe Shea Eosinophils/100 WBC (Bld) 0.8 % Critically low 0.9-7. 0 [facility] Comment on above: Performed By: #### C NEAL LIPA, NESTOR #### [facility] [address] [place] [address] Dr. Joe Shea Erythrocyte distribution width (RBC) [Ratio] 13.2 % Normal 11.0-15.0 [facility] Comment on above: Performed By: #### C NEAL LIPA, NESTOR #### [facility] [address] [place] [address] Dr. Joe Shea Hematocrit (Bld) [Volume fraction] 37.2 % Normal 36.0-48.0 [facility] Comment on above: Performed By: #### C HUGO DE JESUSA, NESTOR #### [facility] [address] [place] [address] Dr. Joe Shea Hemoglobin (Bld) [Mass/Vol] 12.0 g/dL Normal 12.0-16.0 [facility] Comment on above: Performed By: #### C NEAL LIPA, NESTOR #### [facility] [address] [place] [address] Dr. Joe Shea IG # 0.03 10e3/ul Normal 0.00-0.03 [facility] Comment on above: Performed By: #### C HUGO DE JESUSA, NESTOR #### [facility] [address] [place] [address] Dr. Joe Shea IG % 0.2 % Normal 0.0-0.5 [facility] Comment on above: Performed By: #### C NEAL LIPA, NESTOR #### [facility] [address] [place] [address] Dr. Joe Shea LYMPH # 1.9 103/ul Normal 1.2-3.8 [facility] Comment on above: Performed By: #### C CARYLN DE JESUS AMY #### [facility] [address] [place] [address] Dr. Joe Shea Lymphocytes/100 WBC (Bld) 15.2 % Critically low 20.5-6 0.0 [facility] Comment on above: Performed By: #### C CARLYN DE JESUS, NESTOR #### [facility] [address] [place] [address] Dr. Joe Shea MANUAL DIFF REQ NO Normal [facility] Comment on above: Performed By: #### C CARLYN DE JESUS AMY #### [facility] [address] [place] [address] Dr. Joe Shea MCH (RBC) [Entitic mass] 28.4 pg Normal 26.7-34.0 [facility] Comment on above: Performed By: #### C CARLYN DE JESUS, NESTOR #### [facility] [address] [place] [address] Dr. Joe Shea MCHC (RBC) [Mass/Vol] 32.3 g/dL Normal 29.9-35.2 [facility] Comment on above: Performed By: #### C CARLYN DE JESUS NESTOR #### [facility] [address] [place] [address] Dr. Joe Shea MCV (RBC) [Entitic vol] 87.9 fL Normal 81.0-99.0 [facility] Comment on above: Performed By: #### C CARLYN DE JESUS, NESTOR #### [facility] [address] [place] [address] Dr. Joe Shea MONO # 0.9 103/ul Critically high 0.3-0.8 [facility] Comment on above: Performed By: #### C CARLYN DE JESUS, NESTOR #### [facility] [address] [place] [address] Dr. Joe Shea Monocytes/100 WBC (Bld) 7.1 % Normal 1.7-12.0 [facility] Comment on above: Performed By: #### C MP LIPA, NESTOR #### [facility] [address] [place] [address] Dr. Joe Shea NEUT # 9.5 103/ul Critically high 1.4-6.5 [facility] Comment on above: Performed By: #### C MP LIPA, NESTOR #### [facility] [address] [place] [address] Dr. Joe Shea Neutrophils/100 WBC (Bld) 76.3 % Critically high 43.0- 75.0 [facility] Comment on above: Performed By: #### C MP LIPA, NESTOR #### [facility] [address] [place] [address] Dr. Joe Shea Platelet mean volume (Bld) [Entitic vol] 10.8 fL Normal 9.5-13.5 [facility] Comment on above: Performed By: #### C NEAL LIPA, NESTOR #### [facility] [address] [place] [address] Dr. Joe Shea PLT 283 103/ul Normal 150-450 [facility] Comment on above: Performed By: #### C NEAL LIPA, NESTOR #### [facility] [address] [place] [address] Dr. Joe Shea RBC 4.23 106/ul Normal 4.20-5.40 [facility] Comment on above: Performed By: #### C NEAL LIPA, NETSOR #### [facility] [address] [place] [address] Dr. Joe Shea WBC 12.5 103/ul Critically high 4.0-11.0 [facility] Comment on above: Performed By: #### C NEAL LIPA, NESTOR #### [facility] [address] [place] [address] ABD/PELV W CONon [...] MISTI BREWER Date: 2022-10-28 18:31 Normal [facility] ER URINE PROFILEon 3 Bilirubin Ql (U) Negative Normal NEGATIVE [facility] Comment on above: Performed By: #### L BCL #### [facility] [address] [place] [address] Dr. Joe Shea Clarity (U) CLEAR Normal CLEAR [facility] Comment on above: Performed By: #### L BARRY #### [facility] [address] [place] [address] Dr. Joe Shea Color (U) LT. YELLOW Normal YELLOW [facility] Comment on above: Performed By: #### L BARRY #### [facility] [address] [place] [address] Dr. Joe YUNG A micrscopic examination will be performed if indicated. Normal [facility] Comment on above: Performed By: #### L BARRY #### [facility] [address] [place] [address] Dr. Joe Shea Glucose Ql (U) Negative Normal NEGATIVE [facility] Comment on above: Performed By: #### L BCL #### [facility] [address] [place] [address] Dr. Joe Shea Hemoglobin Ql (U) Negative Normal NEGATIVE [facility] Comment on above: Performed By: #### L BCL #### [facility] [address] [place] [address] Dr. Joe Shea Ketones Ql (U) Negative Normal NEGATIVE [facility] Comment on above: Performed By: #### L BCL #### [facility] [address] [place] [address] Dr. Joe Shea LEUKOCYTES TRACE Abnormal NEGATIVE [facility] Comment on above: Performed By: #### L BCL #### [facility] [address] [place] [address] Dr. Joe Shea Nitrite Ql (U) Negative Normal NEGATIVE [facility] Comment on above: Performed By: #### L BCL #### [facility] [address] [place] [address] Dr. Joe Shea pH (U) 8.0 [pH] Normal 5-9 [facility] Comment on above: Performed By: #### L BCL #### [facility] [address] [place] [address] Dr. Joe Shea SPEC GRAVITY 1.015 Normal 1.005-<=1.02 5 [facility] Comment on above: Performed By: #### L BCL #### [facility] [address] [place] [address] Dr. Joe Shea UA PROTEIN Negative Normal NEGATIVE/ TRACE [facility] Comment on above: Performed By: #### L BCL #### [facility] [address] [place] [address] Dr. Joe Shea UR MICRO IND INDICATED Normal [facility] Comment on above: Performed By: #### L BCL #### [facility] [address] [place] [address] Dr. Joe Shea Urobilinogen Qn (U) 2.0 {Pascual'U}/dL Abnormal 0.2 - 1. 0 [facility] Comment on above: Performed By: #### L BCLH #### [facility] [address] [place] [address] Dr. Joe Shea LIPASEon 10-28-2022 Lipase [Catalytic activity/Vol] 93.0 U/L Normal 73.0-393.0 [facility] Comment on above: Performed By: #### C MP, LIPA, NESTOR #### [facility] [address] [place] [address] Dr. Joe Shea URon 10-28-2022 , QUAL Negative Normal NEGATIVE [facility] Comment on above: Performed By: #### L BCLH #### [facility] [address] [place] [address] Dr. Joe Shea PROF 14(COMP METB)on 023 Albumin [Mass/Vol] 4.1 g/dL Normal 3.4-5.0 [facility] Comment on above: Performed By: #### C MP, LIPA, NESTOR #### [facility] [address] [place] [address] Dr. Joe Shea Albumin/Globulin [Mass ratio] 1.2 {ratio} Normal [facility] Comment on above: Performed By: #### C MP, LIPA, NESTOR #### [facility] [address] [place] [address] Dr. Joe Shea ALP [Catalytic activity/Vol] 60 U/L Normal 46-116 [facility] Comment on above: Performed By: #### C MP, LIPA, NESTOR #### [facility] [address] [place] [address] Dr. Joe Shea ALT [Catalytic activity/Vol] 22 U/L Normal 14-59 [facility] Comment on above: Performed By: #### C MP, LIPA, NESTOR #### [facility] [address] [place] [address] Dr. Joe Shea Anion gap [Moles/Vol] 10.2 mmol/L Normal [facility] Comment on above: Performed By: #### C MP, LIPA, NESTOR #### [facility] [address] [address] [address] Joe Shea AST [Catalytic activity/Vol] 14 U/L Critically low 15-37 [facility] Comment on above: Performed By: #### C MP, LIPA, NESTOR #### [facility] [address] [address] [address] Joe Shea Bilirubin [Mass/Vol] 0.5 mg/dL Normal 0.2-1.0 [facility] Comment on above: Performed By: #### C MP, LIPA, NESTOR #### [facility] [address] [address] [address] Joe Shea Calcium [Mass/Vol] 8.9 mg/dL Normal 8.5-10.1 [facility] Comment on above: Performed By: #### C MP, LIPA, NESTOR #### [facility] [address] [place] [address] Dr. Joe Shea Chloride [Moles/Vol] 103 mmol/L Normal 98-107 [facility] Comment on above: Performed By: #### C MP, LIPA, NESTOR #### [facility] [address] [address] [address] Joe Shea CO2 [Moles/Vol] 28.1 mmol/L Normal 21.0-32.0 [facility] Comment on above: Performed By: #### C MP, LIPA, NESTOR #### [facility] [address] [address] [address] Joe Shea Creatinine [Mass/Vol] 0.77 mg/dL Normal 0.55-1.02 [facility] Comment on above: Performed By: #### C MP, LIPA, NESTOR #### [facility] [address] [address] [address] Joe Shea EGFR-AF SAMMARINESE >60 Normal >=60 [facility] Comment on above: Performed By: #### C MP, LIPA, NESTOR #### [facility] [address] [address] [address] Joe Shea EGFR-NON AF SAMMARINESE >60 Normal >=60 [facility] Comment on above: Performed By: #### C MP, LIPA, NESTOR #### [facility] [address] [address] [address] Joe Shea Globulin (S) [Mass/Vol] 3.5 g/dL Normal T [facility] Comment on above: Performed By: #### C MP, LIPA, NESTOR #### [facility] [address] [address] [address] Joe Shea Glucose [Mass/Vol] 85 mg/dL Normal 74-106 [facility] Comment on above: Performed By: #### C MP, LIPA, NESTOR #### [facility] [address] [address] [address] Joe Shea Potassium [Moles/Vol] 3.3 mmol/L Critically low 3.5-5.1 [facility] Comment on above: Performed By: #### C MP, LIPA, NESTOR #### [facility] [address] [place] [address] Dr. Joe Shea Protein [Mass/Vol] 7.6 g/dL Normal 6.4-8.2 [facility] Comment on above: Performed By: #### C MP LIPA, NESTOR #### [facility] [address] [place] [address] Dr. Joe Shea Sodium [Moles/Vol] 138 mmol/L Normal 136-145 [facility] Comment on above: Performed By: #### C MP, LIPA, NESTOR #### [facility] [address] [address] [address] Joe Shea Urea nitrogen [Mass/Vol] 6.0 mg/dL Critically low 7.0-18. 0 [facility] Comment on above: Performed By: #### C MP, LIPA, NESTOR #### [facility] [address] [place] [address] Dr. Joe Shea Urea nitrogen/Creatinine [Mass ratio] 7.8 mg/mg Normal [facility] Comment on above: Performed By: #### C MP, LIPA, NESTOR #### [facility] [address] [place] [address] Dr. Joe Shea URINE MICROSCOPIC ONLYon BACTERIA NONE SEEN Normal NONE SEEN [facility] Comment on above: Performed By: #### L BCLH #### [facility] [address] [place] [address] Dr. Joe Shea Bacteria identified Cx Nom (U) NOT INDICATED Normal [facility] Comment on above: Performed By: #### L BCLH #### [facility] [address] [place] [address] Dr. Joe Shea CAST NONE SEEN Normal NONE SEEN [facility] Comment on above: Performed By: #### L BCLH #### [facility] [address] [place] [address] Dr. Joe Shea Crystals LM Nom (Urine sed) NONE SEEN Normal NONE SEEN [facility] Comment on above: Performed By: #### L BCLH #### [facility] [address] [place] [address] Dr. Joe Shea Epithelial cells LM Ql (Urine sed) FEW Abnormal NONE SEEN /RARE [facility] Comment on above: Performed By: #### L BCLH #### [facility] [address] [place] [address] Dr. Joe Shea MUCOUS NONE SEEN Normal NONE SEEN [facility] Comment on above: Performed By: #### L BCLH #### [facility] [address] [place] [address] Dr. Joe Shea RBC NONE SEEN Abnormal 0-2 [facility] Comment on above: Performed By: #### L BCLH #### [facility] [address] [place] [address] Dr. Joe Shea WBC 0-2 Abnormal NONE SEEN [facility] Comment on above: Performed By: #### L BCLH #### [facility] [address] [place] [address] Dr. Joe Shea LACTOFERRIN FECAL QUANTon Lactoferrin, Fecal, Quant. <1.00 Normal 0.00-7.24 [facility] Comment on above: Result Comment: Re sults [...] (IBS). Performed By: #### D TRESA #### [facility] [address] [address] [address] Joe Shea CALPROTECTIN, FECALon 2022 Calprotectin, Fecal 31 ug/g Normal 0-120 [facility] Comment on above: Result Comment: Conc entration Interpretation Follow-Up <16 - 50 ug/g Normal None >50 -120 ug/g Borderline Re-evaluate in 4-6 weeks >120 ug/g Abnormal Repeat as clinically indicated Performed By: #### C MP, LIPA, NESTOR #### [facility] [address] [place] [address] Dr. Joe Shea BOWEL DISORDERS EVALUATION R ULE-OUT CASCon 09-25-2022 Antigliadin 8 units Normal 0-19 [facility] Comment on above: Result Comment: Nega tive 0 - 19 Weak Positive 20 - 30 Moderate to Strong Positive >30 . Performed By: #### C BC #### [facility] [address] [place] [address] Dr. Joe Shea Atypical pANCA Negative Normal Negative [facility] Comment on above: Performed By: #### C BC #### [facility] [address] [address] [address] Joe Shea Note: [place] continues Normal [facility] Comment on above: Performed By: #### C BC #### [facility] [address] [address] [address] Joe Shea Note: Comment Normal [facility] Comment on above: Result Comment: Sugg estive of irritable bowel syndrome (IBS). Careful evaluation of the patient's history, physical examination, and application of [place] III diagnostic criteria may help to rule in or rule out the diagnosis of IBS. Subsequent testing for Fecal Calprotectin (623217) may be recommended. If IBD is strongly suspected, subsequent testing with the Crohn's Disease Prognostic Profile (775076) that includes anti- glycan antibodies AMCA, ALCA, ACCA, and Zulema may aid in differential diagnosis. Performed By: #### C BC #### [facility] [address] [place] [address] Dr. Joe Shea Saccharomyces Cer. IgG <20.0 Normal 0.0-24.9 Th [facility] Comment on above: Result Comment: Nega tive <20.0 Equivocal 20.1 - 24.9 Positive >or= 25.0 Performed By: #### C BC #### [facility] [address] [place] [address] Dr. Joe Shea tTG/DGP SCR Negative Normal Negative [facility] Comment on above: Result Comment: Ef fective September 21, 2022 this profile will be made non-orderable due to non-availability of reagents for tTG/DGP Combo. No replacement number is available at this time. For further information, please contact your local [facility] Marketing Sales Supervisor. Performed By: #### C BC #### [facility] [address] [place] [address] Dr. Joe Shea CBC AUTO DIFFon 09-19-2022 BASO # 0.1 103/ul Normal 0.0-0.1 [facility] Comment on above: Performed By: #### D TRESA #### [facility] [address] [place] [address] Dr. Joe Shea Basophils/100 WBC (Bld) 0.9 % Normal 0.2-2.0 [facility] Comment on above: Performed By: #### D LUIS ARMANDOUL #### [facility] [address] [place] [address] Dr. Joe Shea EO # 0.2 103/ul Normal 0.0-0.7 [facility] Comment on above: Performed By: #### D LUIS ARMANDOUL #### [facility] [address] [place] [address] Dr. Joe Shea Eosinophils/100 WBC (Bld) 2.4 % Normal 0.9-7.0 [facility] Comment on above: Performed By: #### Althea GTZ #### [facility] [address] [place] [address] Dr. Joe Shea Erythrocyte distribution width (RBC) [Ratio] 13.2 % Normal 11.0-15.0 [facility] Comment on above: Performed By: #### Althea GTZ #### [facility] [address] [place] [address] Dr. Joe Shea Hematocrit (Bld) [Volume fraction] 38.3 % Normal 36.0-48.0 [facility] Comment on above: Performed By: #### Althea GTZ #### [facility] [address] [place] [address] Dr. Joe Shea Hemoglobin (Bld) [Mass/Vol] 12.3 g/dL Normal 12.0-16.0 [facility] Comment on above: Performed By: #### Althea GTZ #### [facility] [address] [place] [address] Dr. Joe Shea IG # 0.02 10e3/ul Normal 0.00-0.03 [facility] Comment on above: Performed By: #### Althea GTZ #### [facility] [address] [place] [address] Dr. Joe Shea IG % 0.3 % Normal 0.0-0.5 [facility] Comment on above: Performed By: #### Althea GTZ #### [facility] [address] [place] [address] Dr. Joe Shea LYMPH # 1.7 103/ul Normal 1.2-3.8 [facility] Comment on above: Performed By: #### Althea GTZ #### [facility] [address] [place] [address] Dr. Joe Shea Lymphocytes/100 WBC (Bld) 24.6 % Normal 20.5-60.0 [facility] Comment on above: Performed By: #### Althea GTZ #### [facility] [address] [place] [address] Dr. Joe Shea MANUAL DIFF REQ NO Normal [facility] Comment on above: Performed By: #### Althea GTZ #### [facility] [address] [address] [address] Joe Shea MCH (RBC) [Entitic mass] 28.1 pg Normal 26.7-34.0 [facility] Comment on above: Performed By: #### Althea GTZ #### [facility] [address] [place] [address] Dr. Joe Shea MCHC (RBC) [Mass/Vol] 32.1 g/dL Normal 29.9-35.2 [facility] Comment on above: Performed By: #### Althea GTZ #### [facility] [address] [place] [address] Dr. Joe Shea MCV (RBC) [Entitic vol] 87.6 fL Normal 81.0-99.0 [facility] Comment on above: Performed By: #### Althea GTZ #### [facility] [address] [place] [address] Dr. Joe Shea MONO # 0.4 103/ul Normal 0.3-0.8 [facility] Comment on above: Performed By: #### Althea GTZ #### [facility] [address] [place] [address] Dr. Joe Shea Monocytes/100 WBC (Bld) 5.5 % Normal 1.7-12.0 [facility] Comment on above: Performed By: #### Althea GTZ #### [facility] [address] [place] [address] Dr. Joe Shea NEUT # 4.7 103/ul Normal 1.4-6.5 [facility] Comment on above: Performed By: #### Althea GTZ #### [facility] [address] [place] [address] Dr. Joe Shea Neutrophils/100 WBC (Bld) 66.3 % Normal 43.0-75.0 [facility] Comment on above: Performed By: #### Althea GTZ #### [facility] [address] [place] [address] Dr. Joe Shea Platelet mean volume (Bld) [Entitic vol] 11.4 fL Normal 9.5-13.5 [facility] Comment on above: Performed By: #### Althea GTZ #### [facility] [address] [place] [address] Dr. Joe Shea PLT 275 103/ul Normal 150-450 [facility] Comment on above: Performed By: #### Althea GTZ #### [facility] [address] [place] [address] Dr. Joe Shea RBC 4.37 106/ul Normal 4.20-5.40 [facility] Comment on above: Performed By: #### Althea GTZ #### [facility] [address] [place] [address] Dr. Joe Shea WBC 7.0 103/ul Normal 4.0-11.0 [facility] Comment on above: Performed By: #### Althea GTZ #### [facility] [address] [place] [address] Dr. Joe Shea PROF 14(COMP METB)on 023 Albumin [Mass/Vol] 4.4 g/dL Normal 3.4-5.0 [facility] [place] Comment on above: Performed By: #### L DAIN #### [facility] [address] [place] [address] Dr. Joe Shea Albumin/Globulin [Mass ratio] 1.4 {ratio} Normal [facility] Comment on above: Performed By: #### L BCLShyla #### [facility] [address] [place] [address] Dr. Joe Shea ALP [Catalytic activity/Vol] 51 U/L Normal 46-116 [facility] Comment on above: Performed By: #### L BCLShyla #### [facility] [address] [place] [address] Dr. Joe Shea ALT [Catalytic activity/Vol] 20 U/L Normal 14-59 [facility] Comment on above: Performed By: #### L DAIN #### [facility] [address] [place] [address] Dr. Joe Shea Anion gap [Moles/Vol] 11.7 mmol/L Normal Th [facility] Comment on above: Performed By: #### L BCLH #### [facility] [address] [place] [address] Dr. Joe Shea AST [Catalytic activity/Vol] 17 U/L Normal 15-37 [facility] Comment on above: Performed By: #### L BCLH #### [facility] [address] [address] [address] Joe Shea Bilirubin [Mass/Vol] 0.4 mg/dL Normal 0.2-1.0 [facility] Comment on above: Performed By: #### L BCLH #### [facility] [address] [place] [address] Dr. Joe Shea Calcium [Mass/Vol] 9.3 mg/dL Normal 8.5-10.1 [facility] [place] Comment on above: Performed By: #### L BCLH #### [facility] [address] [place] [address] Dr. Joe Shea Chloride [Moles/Vol] 104 mmol/L Normal 98-107 [facility] Comment on above: Performed By: #### L BCLH #### [facility] [address] [place] [address] Dr. Joe Shea CO2 [Moles/Vol] 28.5 mmol/L Normal 21.0-32.0 [facility] Comment on above: Performed By: #### L BCLH #### [facility] [address] [place] [address] Dr. Joe Shea Creatinine [Mass/Vol] 0.55 mg/dL Normal 0.55-1.02 [facility] Comment on above: Performed By: #### L BCLH #### [facility] [address] [place] [address] Dr. Joe Shea EGFR-AF SAMMARINESE >60 Normal >=60 [facility] Comment on above: Performed By: #### L BCLH #### [facility] [address] [place] [address] Dr. Joe Shea EGFR-NON AF SAMMARINESE >60 Normal >=60 [facility] Comment on above: Performed By: #### L BCLH #### [facility] [address] [address] [address] Joe Shea Globulin (S) [Mass/Vol] 3.1 g/dL Normal [facility] Comment on above: Performed By: #### L BCLH #### [facility] [address] [address] [address] Joe Shea Glucose [Mass/Vol] 90 mg/dL Normal 74-106 [facility] Comment on above: Performed By: #### L BCLH #### [facility] [address] [address] [address] Joe Shea Potassium [Moles/Vol] 4.2 mmol/L Normal 3.5-5.1 [facility] Comment on above: Performed By: #### L BCLH #### [facility] [address] [address] [address] Joe Shea Protein [Mass/Vol] 7.5 g/dL Normal 6.4-8.2 [facility] Comment on above: Performed By: #### L BCLH #### [facility] [address] [address] [address] Joe Shea Sodium [Moles/Vol] 140 mmol/L Normal 136-145 [facility] [place] Comment on above: Performed By: #### L BCLH #### [facility] [address] [address] [address] Joe Shea Urea nitrogen [Mass/Vol] 6.0 mg/dL Critically low 7.0-18. 0 [facility] Comment on above: Performed By: #### L BCLH #### [facility] [address] [address] [address] Joe Shea Urea nitrogen/Creatinine [Mass ratio] 10.9 mg/mg Normal [facility] Comment on above: Performed By: #### L BCLH #### [facility] [address] [address] [address] Joe Shea PROTIMEon 09-19-2022 INR Coag (PPP) [Relative time] 1.08 {INR} Normal [facility] Comment on above: Performed By: #### L BCL #### [facility] [address] [place] [address] Dr. Joe Shea INR GUIDELINES SEE BELOW Normal [facility] Comment on above: Result Comment: CHICA RED INR: 2.0 - 3.0 CONDITIONS NOT LISTED BELOW 2.5 - 3.5 FOR PROSTHETIC HEART VALVE REPLACEMENT 2.5 - 3.5 RECURRENT THROMBOSIS Performed By: #### L BARRY #### [facility] [address] [address] [address] Joe Shea PT Coag (PPP) [Time] 11.4 s Normal 9.0-11.6 [facility] Comment on above: Performed By: #### L BARRY #### [facility] [address] [place] [address] Dr. Joe Shea TSHon 09-19-2022 TSH 0.957 uIU/mL Normal 0.358-3.740 [facility] Comment on above: Performed By: #### L [facility] #### [facility] [address] [place] [address] Dr. Joe Shea Pre-Certification Formon Pre-Certification Form [id number]#1.00CD:127 Normal [facility] Consent for Procedure/Surger yon 07-23-2022 Consent for Procedure/Surgery [id number]#[id number]:127 Normal [facility] Facesheeton 07-19-2022 Facesheet [id number]#1.00CD:127 Normal [facility] CBC AUTO DIFFon 07-06-2022 BASO # 0.1 103/ul Normal 0.0-0.1 [facility] Comment on above: Performed By: #### C MP, LIPA, NESTOR #### [facility] [address] [place] [address] Dr. Joe Shea Basophils/100 WBC (Bld) 0.8 % Normal 0.2-2.0 [facility] Comment on above: Performed By: #### C CARLYN DE JESUS AMY #### [facility] [address] [place] [address] Dr. Joe Shea EO # 0.4 103/ul Normal 0.0-0.7 [facility] Comment on above: Performed By: #### C CARLYN DE JESUS NESTOR #### [facility] [address] [place] [address] Dr. Joe Shea Eosinophils/100 WBC (Bld) 4.2 % Normal 0.9-7.0 [facility] Comment on above: Performed By: #### C CARLYN DE JESUS AMY #### [facility] [address] [place] [address] Dr. Joe Shea Erythrocyte distribution width (RBC) [Ratio] 13.5 % Normal 11.0-15.0 [facility] Comment on above: Performed By: #### C CARLYN DE JESUS NESTOR #### [facility] [address] [place] [address] Dr. Joe Shea Hematocrit (Bld) [Volume fraction] 36.8 % Normal 36.0-48.0 [facility] Comment on above: Performed By: #### C CARLYN DE JESUS AMY #### [facility] [address] [place] [address] Dr. Joe Shea Hemoglobin (Bld) [Mass/Vol] 12.2 g/dL Normal 12.0-16.0 [facility] Comment on above: Performed By: #### C CARLYN DE JESUS, NESTOR #### [facility] [address] [place] [address] Dr. Joe Shea IG # 0.02 10e3/ul Normal 0.00-0.03 [facility] Comment on above: Performed By: #### C CARLYN DE JESUS, NESTOR #### [facility] [address] [place] [address] Dr. Joe Shea IG % 0.2 % Normal 0.0-0.5 [facility] Comment on above: Performed By: #### C MP, LIPA, NESTOR #### [facility] [address] [address] [address] Joe Shea LYMPH # 2.1 103/ul Normal 1.2-3.8 [facility] Comment on above: Performed By: #### C MP, LIPA, NESTOR #### [facility] [address] [address] [address] Joe Shea Lymphocytes/100 WBC (Bld) 20.3 % Critically low 20.5-6 0.0 [facility] Comment on above: Performed By: #### C MP, LIPA, NESTOR #### [facility] [address] [place] [address] Dr. Joe Shea MANUAL DIFF REQ NO Normal [facility] Comment on above: Performed By: #### C MP, LIPA, NESTOR #### [facility] [address] [place] [address] Dr. Joe Shea MCH (RBC) [Entitic mass] 28.6 pg Normal 26.7-34.0 [facility] Comment on above: Performed By: #### C MP, LIPA, NESTOR #### [facility] [address] [place] [address] Dr. Joe Shea MCHC (RBC) [Mass/Vol] 33.2 g/dL Normal 29.9-35.2 [facility] Comment on above: Performed By: #### C MP, LIPA, NESTOR #### [facility] [address] [place] [address] Dr. Joe Shea MCV (RBC) [Entitic vol] 86.4 fL Normal 81.0-99.0 [facility] Comment on above: Performed By: #### C MP, LIPA, NESTOR #### [facility] [address] [place] [address] Dr. Joe Shea MONO # 0.6 103/ul Normal 0.3-0.8 [facility] Comment on above: Performed By: #### C MP, LIPA, NESTOR #### [facility] [address] [place] [address] Dr. Joe Shea Monocytes/100 WBC (Bld) 5.5 % Normal 1.7-12.0 T [facility] Comment on above: Performed By: #### C CARLYN DE JESUS NESTOR #### [facility] [address] [place] [address] Dr. Joe Shea NEUT # 7.2 103/ul Critically high 1.4-6.5 [facility] Comment on above: Performed By: #### C CARLYN DE JESUS, NESTOR #### [facility] [address] [place] [address] Dr. Jeo Shea Neutrophils/100 WBC (Bld) 69.0 % Normal 43.0-75.0 [facility] Comment on above: Performed By: #### C CARLYN DE JESUS NESTOR #### [facility] [address] [place] [address] Dr. Joe Shea Platelet mean volume (Bld) [Entitic vol] 10.8 fL Normal 9.5-13.5 [facility] Comment on above: Performed By: #### C CARLYN DE JESUS NESTOR #### [facility] [address] [place] [address] Dr. Joe Shea PLT 316 103/ul Normal 150-450 [facility] Comment on above: Performed By: #### C CARLYN DE JESUS, NESTOR #### [facility] [address] [place] [address] Dr. Joe Shea RBC 4.26 106/ul Normal 4.20-5.40 [facility] Comment on above: Performed By: #### C CARLYN DE JESUS, NESTOR #### [facility] [address] [place] [address] Dr. Joe Shea WBC 10.4 103/ul Normal 4.0-11.0 [facility] Comment on above: Performed By: #### C CARLYN DE JESUS, NESTOR #### [facility] [address] [place] [address] Dr. Joe Shea PREG QUANT HCGon 07-06-2022 HCG QUANT <1 Normal [facility] Comment on above: Performed By: #### C CARLYN DE JESUS, NESTOR #### [facility] [address] [place] [address] Dr. Joe Shea HCG RANGE SEE BELOW Normal [facility] Comment on above: Result Comment: 5-50 0.2-1 WEEK 50-500 1-2 WEEKS 100-5,000 2-3 WEEKS 500-10,000 3-4 WEEKS 1,000-50,000 4-5 WEEKS 10,000-100,000 5-6 WEEKS 15,000-200,000 6-8 WEEKS 10,000-100,000 2-3 MONTHS Performed By: #### C CARLYN DE JESUS AMY #### [facility] [address] [place], [place] [address] Dr. Joe Shea HEPATITIS C ANTIBODYon 06-26 Hep C Virus Ab <0.1 Normal 0.0-0.9 [facility] Comment on above: Result Comment: [...] Hepatitis C Virus (HCV) RNA, Diagnosis, MEGAN (594096) and Hepatitis C Virus (HCV) Antibody with reflex to Quantitative Real-time PCR ([id number]). Performed By: #### L [facility] #### [facility] [address] [place], [place] [address] Dr. Joe Shea Covid-19 PCR (CVDTB)on 05-31 SARS-CoV-2 (COVID-19) RNA MEGAN+probe Ql (Unsp spec) Not detected Normal NOT DETECTED [facility] Comment on above: Result Comment: This test is not yet approved or cleared by the [place] FDA. When there are no FDA-approved or cleared tests available, and other criteria are met, FDA can make tests available under an emergency access mechanism called an Emergency Use Authorization (EUA). The EUA for this test is supported by the [place] of Health and Human Service's (HHS's) declaration [...] SARS-CoV-2. Performed By: #### C VDTB #### [facility] [address] [place] [address] Dr. Joe Shea HEP B SURFACE ANTIGEN SCREEN on 06-12-2022 HBsAg Screen Negative Normal Negative [facility] Comment on above: Performed By: #### D HEASMARICRUZ #### [facility] [address] [place] [address] Dr. Joe Shea HIV 1 AND 2 WITH REFLEXon HIV Screen 4th Generation wRfx Non-Reactive Normal Non Reactive [facility] Comment on above: Result Comment: HIV Negative HIV-1/HIV-2 antibodies and HIV-1 p24 antigen were NOT detected. There is no laboratory evidence of HIV infection. Performed By: #### C MP, LIPA, NESTOR #### [facility] [address] [place] [address] Dr. Joe Shea RPR QUANTon 06-12-2022 Rapid Plasma Reagin, Quant Non-Reactive Normal NonRea< 1:1 [facility] Comment on above: Result Comment: Plea se Note: This test does not meet current guidelines for screening and diagnosis of syphilis. This test is intended for following treatment response in patients being treated for syphilis infection. To screen for syphilis infection, a reflex cascade that includes both RPR and a treponema-specific assay should be utilized, such as Treponema pallidum (Syphilis) Screening [place] (714171) or Rapid Plasma Reagin (RPR) Test With Reflex to Quantitative RPR and Confirmatory Treponema pallidum Antibodies ([id number]). Performed By: #### C MP, LIPA, NESTOR #### [facility] [address] [place] [address] Dr. Joe Shea Physician Referralon 022 Physician Referral [id number]#[id number]:127 Normal [facility] US PELVIS AND TRANSVAGon US PELVIS [...] ANGIE MEJIA Date: 2022-05-31 17:18 Normal [facility] AMYLASEon 05-23-2022 Amylase [Catalytic activity/Vol] 24 U/L Critically low 25-115 [facility] Comment on above: Performed By: #### C CARLYN DE JESUS AMY #### [facility] [address] [place] [address] Dr. Joe Shea CBC AUTO DIFFon 05-23-2022 Eosinophils/100 WBC (Bld) 1.5 % Normal 0.9-7.0 [facility] Comment on above: Performed By: #### L BCL #### [facility] [address] [place] [address] Dr. Joe Shea Erythrocyte distribution width (RBC) [Ratio] 13.5 % Normal 11.0-15.0 [facility] Comment on above: Performed By: #### L BCL #### [facility] [address] [place] [address] Dr. Joe Shea Hematocrit (Bld) [Volume fraction] 33.0 % Critically low 36.0-48.0 [facility] Comment on above: Performed By: #### L BCLH #### [facility] [address] [address] [address] Joe Shea Hemoglobin (Bld) [Mass/Vol] 10.7 g/dL Critically low 12.0-16.0 [facility] Comment on above: Performed By: #### L BCLH #### [facility] [address] [place] [address] Dr. Joe Shea LYMPH # 1.2 103/ul Normal 1.2-3.8 [facility] Comment on above: Performed By: #### L BCLH #### [facility] [address] [place] [address] Dr. Joe Shea Lymphocytes/100 WBC (Bld) 20.2 % Critically low 20.5-6 0.0 [facility] Comment on above: Performed By: #### L BCLH #### [facility] [address] [place] [address] Dr. Joe Shea MCH (RBC) [Entitic mass] 28.0 pg Normal 26.7-34.0 [facility] Comment on above: Performed By: #### L BCLH #### [facility] [address] [place] [address] Dr. Joe Shea MCHC (RBC) [Mass/Vol] 32.4 g/dL Normal 29.9-35.2 [facility] Comment on above: Performed By: #### L BCLH #### [facility] [address] [place] [address] Dr. Joe Shea Monocytes/100 WBC (Bld) 7.9 % Normal 1.7-12.0 [facility] Comment on above: Performed By: #### L BCLH #### [facility] [address] [place] [address] Dr. Joe Shea Neutrophils/100 WBC (Bld) 69.9 % Normal 43.0-75.0 [facility] Comment on above: Performed By: #### L BCLH #### [facility] [address] [place] [address] Dr. Joe Shea Platelet mean volume (Bld) [Entitic vol] 10.6 fL Normal 9.5-13.5 [facility] Comment on above: Performed By: #### L BCLH #### [facility] [address] [place] [address] Dr. Joe Shea PLT 233 103/ul Normal 150-450 [facility] Comment on above: Performed By: #### L BCLH #### [facility] [address] [place] [address] Dr. Joe Shea RBC 3.82 106/ul Critically low 4.20-5.40 [facility] Comment on above: Performed By: #### L BCLH #### [facility] [address] [place] [address] Dr. Joe Shea WBC 6.1 103/ul Normal 4.0-11.0 [facility] Comment on above: Performed By: #### L BCLH #### [facility] [address] [place] [address] Dr. Joe Shea BASO # 0.0 103/ul Normal 0.0-0.1 [facility] Comment on above: Performed By: #### L BCLH #### [facility] [address] [place] [address] Dr. Joe Shea Performed By: #### C CARLYN DE JESUS AMY #### [facility] [address] [place] [address] Dr. Joe Shea Basophils/100 WBC (Bld) 0.3 % Normal 0.2-2.0 [facility] Comment on above: Performed By: #### L BCLH #### [facility] [address] [place] [address] Dr. Joe Shea Performed By: #### C CARLYN DE JESUS, NESTOR #### [facility] [address] [place] [address] Dr. Joe Shea EO # 0.1 103/ul Normal 0.0-0.7 [facility] Comment on above: Performed By: #### L BCLH #### [facility] [address] [place] [address] Dr. Joe Shea Performed By: #### C MP LIPA, NESTOR #### [facility] [address] [place] [address] Dr. Joe Shea Eosinophils/100 WBC (Bld) 1.9 % Normal 0.9-7.0 [facility] Comment on above: Performed By: #### C MP, LIPA, NESTOR #### [facility] [address] [place] [address] Dr. Joe Shea Erythrocyte distribution width (RBC) [Ratio] 13.4 % Normal 11.0-15.0 [facility] Comment on above: Performed By: #### C MP LIPA, NESTOR #### [facility] [address] [place] [address] Dr. Joe Shea Hematocrit (Bld) [Volume fraction] 32.3 % Critically low 36.0-48.0 [facility] Comment on above: Performed By: #### C MP LIPA, NESTOR #### [facility] [address] [place] [address] Dr. Joe Shea Hemoglobin (Bld) [Mass/Vol] 10.6 g/dL Critically low 12.0-16.0 [facility] Comment on above: Performed By: #### C NEAL LIPA, NESTOR #### [facility] [address] [place] [address] Dr. Joe Shea IG # 0.01 10e3/ul Normal 0.00-0.03 [facility] Comment on above: Performed By: #### L BCL #### [facility] [address] [place] [address] Dr. Joe Shea Performed By: #### C MP LIPA, NESTOR #### [facility] [address] [place] [address] Dr. Joe Shea IG % 0.2 % Normal 0.0-0.5 [facility] Comment on above: Performed By: #### L BCLH #### [facility] [address] [place] [address] Dr. Joe Shea Performed By: #### C NEAL LIPA, NESTOR #### [facility] [address] [place] [address] Dr. Joe Shea LYMPH # 1.0 103/ul Critically low 1.2-3.8 [facility] Comment on above: Performed By: #### C MP LIPA, NESTOR #### [facility] [address] [place] [address] Dr. Joe Shea Lymphocytes/100 WBC (Bld) 16.6 % Critically low 20.5-6 0.0 [facility] Comment on above: Performed By: #### C MP, LIPA, NESTOR #### [facility] [address] [place] [address] Dr. Joe Shea MANUAL DIFF REQ NO Normal [facility] Comment on above: Performed By: #### L BCLH #### [facility] [address] [place] [address] Dr. Joe Shea Performed By: #### C MP LIPA, NESTOR #### [facility] [address] [place] [address] Dr. Joe Shea MCH (RBC) [Entitic mass] 28.3 pg Normal 26.7-34.0 [facility] Comment on above: Performed By: #### C MP LIPA, NESTOR #### [facility] [address] [place] [address] Dr. Joe Shea MCHC (RBC) [Mass/Vol] 32.8 g/dL Normal 29.9-35.2 [facility] Comment on above: Performed By: #### C MP LIPA, NESTOR #### [facility] [address] [place] [address] Dr. Joe Shea MCV (RBC) [Entitic vol] 86.4 fL Normal 81.0-99.0 [facility] Comment on above: Performed By: #### L BCLH #### [facility] [address] [place] [address] Dr. Joe Shea Performed By: #### C MP, LIPA, NESTOR #### [facility] [address] [place] [address] Dr. Joe Shea MONO # 0.5 103/ul Normal 0.3-0.8 [facility] Comment on above: Performed By: #### L BCL #### [facility] [address] [place] [address] Dr. Joe Shea Performed By: #### C CARLYN DE JESUS, NESTOR #### [facility] [address] [place] [address] Dr. Joe Shea Monocytes/100 WBC (Bld) 9.1 % Normal 1.7-12.0 [facility] Comment on above: Performed By: #### C NEAL LIPA, NESTOR #### [facility] [address] [place] [address] Dr. Joe Shea NEUT # 4.3 103/ul Normal 1.4-6.5 [facility] Comment on above: Performed By: #### L BCL #### [facility] [address] [place] [address] Dr. Joe Shea Performed By: #### C HUGO DE JESUSA, NESTOR #### [facility] [address] [place] [address] Dr. Joe Shea Neutrophils/100 WBC (Bld) 71.9 % Normal 43.0-75.0 [facility] Comment on above: Performed By: #### C HUGO DE JESUSA, NESTOR #### [facility] [address] [place] [address] Dr. Joe Shea Platelet mean volume (Bld) [Entitic vol] 11.0 fL Normal 9.5-13.5 [facility] Comment on above: Performed By: #### C NEAL LIPA, NESTOR #### [facility] [address] [place] [address] Dr. Joe Shea PLT 224 103/ul Normal 150-450 [facility] Comment on above: Performed By: #### C HUGO DE JESUSA, NESTOR #### [facility] [address] [place] [address] Dr. Joe Shea RBC 3.74 106/ul Critically low 4.20-5.40 [facility] Comment on above: Performed By: #### C NEAL LIPA, NESTOR #### [facility] [address] [place] [address] Dr. Joe Shea WBC 5.9 103/ul Normal 4.0-11.0 [facility] Comment on above: Performed By: #### C CARLYN DE JESUS AMY #### [facility] [address] [place] [address] Dr. Joe MOORE URINE PROFILEon 2 Bilirubin Ql (U) Negative Normal NEGATIVE [facility] Comment on above: Performed By: #### L BCLH #### [facility] [address] [place] [address] Dr. Joe Shea Clarity (U) CLEAR Normal CLEAR [facility] Comment on above: Performed By: #### L BCLH #### [facility] [address] [place] [address] Dr. Joe Shea Color (U) LT. YELLOW Normal YELLOW [facility] Comment on above: Performed By: #### L BCL #### [facility] [address] [place] [address] Dr. Joe YUNG A micrscopic examination will be performed if indicated. Normal [facility] Comment on above: Performed By: #### L BCL #### [facility] [address] [place] [address] Dr. Joe Shea Glucose Ql (U) Negative Normal NEGATIVE [facility] Comment on above: Performed By: #### L BCLH #### [facility] [address] [place] [address] Dr. Joe Shea Hemoglobin Ql (U) Negative Normal NEGATIVE [facility] Comment on above: Performed By: #### L BCLH #### [facility] [address] [place] [address] Dr. Joe Shea Ketones Ql (U) Negative Normal NEGATIVE [facility] Comment on above: Performed By: #### L BCLH #### [facility] [address] [place] [address] Dr. Joe Shea LEUKOCYTES Negative Normal NEGATIVE [facility] Comment on above: Performed By: #### L BCLH #### [facility] [address] [place] [address] Dr. Joe Shea Nitrite Ql (U) Negative Normal NEGATIVE [facility] Comment on above: Performed By: #### L BCL #### [facility] [address] [place] [address] Dr. Joe Shea pH (U) 5.5 [pH] Normal 5-9 [facility] Comment on above: Performed By: #### L BCL #### [facility] [address] [address] [address] Joe Shea SPEC GRAVITY 1.020 Normal 1.005-<=1.02 5 [facility] Comment on above: Performed By: #### L BCL #### [facility] [address] [place] [address] Dr. Joe Shea UA PROTEIN Negative Normal NEGATIVE/ TRACE [facility] Comment on above: Performed By: #### L BCL #### [facility] [address] [place] [address] Dr. Joe Shea UR MICRO IND NOT INDICATED Normal [facility] Comment on above: Performed By: #### L BARRY #### [facility] [address] [place] [address] Dr. Joe Shea Urobilinogen Qn (U) 0.2 {Pascual'U}/dL Normal 0.2 - 1. 0 [facility] Comment on above: Performed By: #### L BCL #### [facility] [address] [place] [address] Dr. Joe Shea LIPASEon 05-23-2022 Lipase [Catalytic activity/Vol] 63.0 U/L Critically low 73.0-393.0 [facility] Comment on above: Performed By: #### C MP, LIPA, NESTOR #### [facility] [address] [place] [address] Dr. Joe Shea URon 05-23-2022 , QUAL Negative Normal NEGATIVE [facility] Comment on above: Performed By: #### C #### [facility] [address] [place] [address] Dr. Joe Shea PROF 14(COMP METB)on 022 Albumin [Mass/Vol] 3.7 g/dL Normal 3.4-5.0 [facility] Comment on above: Performed By: #### C CARLYN DE JESUS, NESTOR #### [facility] [address] [place] [address] Dr. Joe Shea Albumin/Globulin [Mass ratio] 1.4 {ratio} Normal [facility] Comment on above: Performed By: #### C CARLYN DE JESUS, NESTOR #### [facility] [address] [place] [address] Dr. Joe Shea ALP [Catalytic activity/Vol] 44 U/L Critically low 46-116 [facility] Comment on above: Performed By: #### C CARLYN DE JESUS, NESTOR #### [facility] [address] [place] [address] Dr. Joe Shea ALT [Catalytic activity/Vol] 24 U/L Normal 14-59 [facility] Comment on above: Performed By: #### C CARLYN DE JESUS, NESTOR #### [facility] [address] [place] [address] Dr. Joe Shea Anion gap [Moles/Vol] 9.1 mmol/L Normal [facility] Comment on above: Performed By: #### C CARLYN DE JESUS, NESTOR #### [facility] [address] [place] [address] Dr. Joe Shea AST [Catalytic activity/Vol] 18 U/L Normal 15-37 [facility] Comment on above: Performed By: #### C CARLYN DE JESUS, NESTOR #### [facility] [address] [place] [address] Dr. Joe Shea Bilirubin [Mass/Vol] 0.2 mg/dL Normal 0.2-1.0 [facility] Comment on above: Performed By: #### C CARLYN DE JESUS, NESTOR #### [facility] [address] [place] [address] Dr. Joe Shea Calcium [Mass/Vol] 8.3 mg/dL Critically low 8.5-10.1 [facility] Comment on above: Performed By: #### C CARLYN DE JESUS, NESTOR #### [facility] [address] [address] [address] Joe Shea Chloride [Moles/Vol] 105 mmol/L Normal 98-107 [facility] Comment on above: Performed By: #### C MP, LIPA, NESTOR #### [facility] [address] [address] [address] Joe Shea CO2 [Moles/Vol] 29.7 mmol/L Normal 21.0-32.0 [facility] Comment on above: Performed By: #### C MP, LIPA, NESTOR #### [facility] [address] [address] [address] Joe Shea Creatinine [Mass/Vol] 0.61 mg/dL Normal 0.55-1.02 [facility] Comment on above: Performed By: #### C MP, LIPA, NESTOR #### [facility] [address] [place] [address] Dr. Joe Shea EGFR-AF SAMMARINESE >60 Normal >=60 [facility] Comment on above: Performed By: #### C MP, LIPA, NESTOR #### [facility] [address] [place] [address] Dr. Joe Shea EGFR-NON AF SAMMARINESE >60 Normal >=60 [facility] Comment on above: Performed By: #### C MP, LIPA, NESTOR #### [facility] [address] [place] [address] Dr. Joe Shea Globulin (S) [Mass/Vol] 2.6 g/dL Normal [facility] Comment on above: Performed By: #### C MP, LIPA, NESTOR #### [facility] [address] [place] [address] Dr. Joe Shea Glucose [Mass/Vol] 92 mg/dL Normal 74-106 [facility] Comment on above: Performed By: #### C MP, LIPA, NESTOR #### [facility] [address] [address] [address] Joe Shea Potassium [Moles/Vol] 3.8 mmol/L Normal 3.5-5.1 [facility] Comment on above: Performed By: #### C MP, LIPA, NESTOR #### [facility] [address] [address] [address] Joe Shea Protein [Mass/Vol] 6.3 g/dL Critically low 6.4-8.2 [facility] e [facility] Comment on above: Performed By: #### C MP, LIPA, NESTOR #### [facility] [address] [address] [address] Joe Shea Sodium [Moles/Vol] 140 mmol/L Normal 136-145 [facility] Comment on above: Performed By: #### C MP LIPA, NESTOR #### [facility] [address] [address] [address] Joe Shea Urea nitrogen [Mass/Vol] 9.0 mg/dL Normal 7.0-18.0 [facility] Comment on above: Performed By: #### C NEAL LIPA, NESTOR #### [facility] [address] [address] [address] Joe Shea Urea nitrogen/Creatinine [Mass ratio] 14.8 mg/mg Normal [facility] Comment on above: Performed By: #### C NEAL LIPA, NESTOR #### [facility] [address] [place] [address] Dr. Joe Shea US SINGLE QUAD RT [...] SHIRLEY PATEL Date: 2022-05-23 08:29 Normal [facility] AMYLASEon 05-22-2022 Amylase [Catalytic activity/Vol] 50 U/L Normal 25-115 [facility] Comment on above: Performed By: #### A MY, CMP, LIPA #### [facility] [address] [place] [address] Dr. Joe Shea CBC AUTO DIFFon 05-22-2022 BASO # 0.1 103/ul Normal 0.0-0.1 [facility] Comment on above: Performed By: #### C MP, LIPA, NESTOR #### [facility] [address] [place] [address] Dr. Joe Shea Basophils/100 WBC (Bld) 0.3 % Normal 0.2-2.0 [facility] Comment on above: Performed By: #### C MP, LIPA, NESTOR #### [facility] [address] [place] [address] Dr. Joe Shea EO # 0.0 103/ul Normal 0.0-0.7 [facility] Comment on above: Performed By: #### C MP, LIPA, NESTOR #### [facility] [address] [place] [address] Dr. Joe Shea Eosinophils/100 WBC (Bld) 0.2 % Critically low 0.9-7. 0 [facility] Comment on above: Performed By: #### C MP, LIPA, NESTOR #### [facility] [address] [place] [address] Dr. Joe Shea Erythrocyte distribution width (RBC) [Ratio] 13.3 % Normal 11.0-15.0 [facility] Comment on above: Performed By: #### C MP, LIPA, NESTOR #### [facility] [address] [place] [address] Dr. Joe Shea Hematocrit (Bld) [Volume fraction] 39.0 % Normal 36.0-48.0 [facility] Comment on above: Performed By: #### C MP, LIPA, NESTOR #### [facility] [address] [address] [address] Joe Shea Hemoglobin (Bld) [Mass/Vol] 12.7 g/dL Normal 12.0-16.0 [facility] Comment on above: Performed By: #### C MP, LIPA, NESTOR #### [facility] [address] [place] [address] Dr. Joe Shea IG # 0.05 10e3/ul Critically high 0.00-0.03 [facility] Comment on above: Performed By: #### C MP, LIPA, NESTOR #### [facility] [address] [place] [address] Dr. Joe Shea IG % 0.3 % Normal 0.0-0.5 [facility] Comment on above: Performed By: #### C MP, LIPA, NESTOR #### [facility] [address] [place] [address] Dr. Joe Shea LYMPH # 0.8 103/ul Critically low 1.2-3.8 [facility] Comment on above: Performed By: #### C MP, LIPA, NESTOR #### [facility] [address] [place] [address] Dr. Joe Shea Lymphocytes/100 WBC (Bld) 4.4 % Critically low 20.5-6 0.0 [facility] Comment on above: Performed By: #### C MP, LIPA, NESTOR #### [facility] [address] [place] [address] Dr. Joe Shea MANUAL DIFF REQ NO Normal [facility] Comment on above: Performed By: #### C MP, LIPA, NESTOR #### [facility] [address] [place] [address] Dr. Joe Shea MCH (RBC) [Entitic mass] 28.1 pg Normal 26.7-34.0 [facility] Comment on above: Performed By: #### C MP, LIPA, NESTOR #### [facility] [address] [place] [address] Dr. Joe Shea MCHC (RBC) [Mass/Vol] 32.6 g/dL Normal 29.9-35.2 [facility] Comment on above: Performed By: #### C NEAL LIPA, NESTOR #### [facility] [address] [place] [address] Dr. Joe Shea MCV (RBC) [Entitic vol] 86.3 fL Normal 81.0-99.0 [facility] Comment on above: Performed By: #### C NEAL LIPA, NESTOR #### [facility] [address] [place] [address] Dr. Joe Shea MONO # 0.4 103/ul Normal 0.3-0.8 [facility] Comment on above: Performed By: #### C NEAL LIPA, NESTOR #### [facility] [address] [place] [address] Dr. Joe Shea Monocytes/100 WBC (Bld) 2.2 % Normal 1.7-12.0 [facility] Comment on above: Performed By: #### C NEAL LIPA, NESTOR #### [facility] [address] [place] [address] Dr. Joe Shea NEUT # 16.7 103/ul Critically high 1.4-6.5 [facility] Comment on above: Performed By: #### C NEAL LIPA, NESTOR #### [facility] [address] [place] [address] Dr. Joe Shea Neutrophils/100 WBC (Bld) 92.6 % Critically high 43.0- 75.0 [facility] Comment on above: Performed By: #### C MP LIPA, NESTOR #### [facility] [address] [place] [address] Dr. Joe Shea Platelet mean volume (Bld) [Entitic vol] 11.0 fL Normal 9.5-13.5 [facility] Comment on above: Performed By: #### C MP LIPA, NESTOR #### [facility] [address] [place] [address] Dr. Joe Shea PLT 323 103/ul Normal 150-450 [facility] Comment on above: Performed By: #### C NEAL LIPA, NESTOR #### [facility] [address] [place] [address] Dr. Joe Shea RBC 4.52 106/ul Normal 4.20-5.40 [facility] Comment on above: Performed By: #### C CARLYN DE JESUS AMY #### [facility] [address] [place] [address] Dr. Joe Shea WBC 18.0 103/ul Critically high 4.0-11.0 [facility] Comment on above: Performed By: #### C CARLYN DE JESUS AMY #### [facility] [address] [place] [address] Dr. Joe Shea ER URINE PROFILEon 2 Bilirubin Ql (U) Negative Normal NEGATIVE [facility] Comment on above: Performed By: #### Althea GTZ #### [facility] [address] [place] [address] Dr. Joe Shea Clarity (U) CLEAR Normal CLEAR [facility] Comment on above: Performed By: #### Althea GTZ #### [facility] [address] [place] [address] Dr. Joe Shea Color (U) YELLOW Normal YELLOW [facility] Comment on above: Performed By: #### Althea GTZ #### [facility] [address] [place] [address] Dr. Joe YUNG A micrscopic examination will be performed if indicated. Normal [facility] Comment on above: Performed By: #### Althea GTZ #### [facility] [address] [place] [address] Dr. Joe Shea Glucose Ql (U) Negative Normal NEGATIVE [facility] Comment on above: Performed By: #### Althea DURÁNUL #### [facility] [address] [place] [address] Dr. Joe Shea Hemoglobin Ql (U) Negative Normal NEGATIVE [facility] Comment on above: Performed By: #### Althea DURÁNUL #### [facility] [address] [place] [address] Dr. Joe Shea Ketones Ql (U) 15 mg/dl Abnormal NEGATIVE [facility] Comment on above: Performed By: #### Althea GTZ #### [facility] [address] [place] [address] Dr. Joe Shea LEUKOCYTES Negative Normal NEGATIVE [facility] Comment on above: Performed By: #### Althea GTZ #### [facility] [address] [place] [address] Dr. Joe Shea Nitrite Ql (U) Negative Normal NEGATIVE [facility] Comment on above: Performed By: #### Althea GTZ #### [facility] [address] [place] [address] Dr. Joe Shea pH (U) 5.5 [pH] Normal 5-9 [facility] Comment on above: Performed By: #### Althea GTZ #### [facility] [address] [place] [address] Dr. Joe Shea SPEC GRAVITY >=1.030 Abnormal 1.005-<=1.02 5 [facility] Comment on above: Performed By: #### Althea GTZ #### [facility] [address] [place] [address] Dr. Joe Shea UA PROTEIN Negative Normal NEGATIVE/ TRACE [facility] Comment on above: Performed By: #### Althea GTZ #### [facility] [address] [place] [address] Dr. Joe Shea UR MICRO IND NOT INDICATED Normal [facility] Comment on above: Performed By: #### Althea GTZ #### [facility] [address] [place] [address] Dr. Joe Shea Urobilinogen Qn (U) 1.0 {Pascual'U}/dL Normal 0.2 - 1. 0 [facility] Comment on above: Performed By: #### Althea GTZ #### [facility] [address] [place] [address] Dr. Joe Shea LACTATE/LACTIC ACIDon 2021 Lactate [Moles/Vol] 1.0 mmol/L Normal 0.4-1.9 [facility] Comment on above: Performed By: #### Darius BC #### [facility] [address] [place] [address] Dr. Joe Shea LIPASEon 05-22-2022 Lipase [Catalytic activity/Vol] 205.0 U/L Normal 73.0-393.0 [facility] Comment on above: Performed By: #### A MY, CMP, LIPA #### [facility] [address] [place], [place] [address] Dr. Joe Shea MRI BRAIN WO CONon [...] ANGIE LO Date: 2022-05-22 16:17 Normal [facility] URon 05-22-2022 , QUAL Negative Normal NEGATIVE [facility] Comment on above: Performed By: #### Althea GTZ #### [facility] [address] [address] [address] Joe Shea PROF 14(COMP METB)on 022 Albumin [Mass/Vol] 4.5 g/dL Normal 3.4-5.0 [facility] Comment on above: Performed By: #### Althea GTZ #### [facility] [address] [address] [address] Joe Shea Albumin/Globulin [Mass ratio] 1.4 {ratio} Normal [facility] Comment on above: Performed By: #### Althea GTZ #### [facility] [address] [address] [address] Joe Shea ALP [Catalytic activity/Vol] 60 U/L Normal 46-116 [facility] Comment on above: Performed By: #### Althea GTZ #### [facility] [address] [address] [address] Joe Shea ALT [Catalytic activity/Vol] 17 U/L Normal 14-59 [facility] Comment on above: Performed By: #### Althea GTZ #### [facility] [address] [address] [address] Joe Shea Anion gap [Moles/Vol] 10.9 mmol/L Normal [facility] Comment on above: Performed By: #### Althea GTZ #### [facility] [address] [address] [address] Joe Shea AST [Catalytic activity/Vol] 19 U/L Normal 15-37 [facility] Comment on above: Performed By: #### Althea GTZ #### [facility] [address] [address] [address] Joe Shea Bilirubin [Mass/Vol] 0.8 mg/dL Normal 0.2-1.0 [facility] Comment on above: Performed By: #### Althea GTZ #### [facility] [address] [address] [address] Joe Shea Calcium [Mass/Vol] 9.0 mg/dL Normal 8.5-10.1 [facility] Comment on above: Performed By: #### Althea GTZ #### [facility] [address] [address] [address] Joe Shea Chloride [Moles/Vol] 102 mmol/L Normal 98-107 [facility] Comment on above: Performed By: #### Althea GTZ #### [facility] [address] [address] [address] Joe Shea CO2 [Moles/Vol] 28.7 mmol/L Normal 21.0-32.0 [facility] Comment on above: Performed By: #### Althea GTZ #### [facility] [address] [address] [address] Joe Shea Creatinine [Mass/Vol] 0.73 mg/dL Normal 0.55-1.02 [facility] Comment on above: Performed By: #### Althea GTZ #### [facility] [address] [address] [address] Joe Shea EGFR-AF SAMMARINESE >60 Normal >=60 [facility] Comment on above: Performed By: #### Althea GTZ #### [facility] [address] [address] [address] Joe Shea EGFR-NON AF SAMMARINESE >60 Normal >=60 [facility] Comment on above: Performed By: #### Althea GTZ #### [facility] [address] [address] [address] Joe Shea Globulin (S) [Mass/Vol] 3.2 g/dL Normal [facility] Comment on above: Performed By: #### Althea GTZ #### [facility] [address] [address] [address] Joe Shea Glucose [Mass/Vol] 113 mg/dL Critically high 74-106 [facility] Comment on above: Performed By: #### Althea GTZ #### [facility] [address] [address] [address] Joe Shea Potassium [Moles/Vol] 3.6 mmol/L Normal 3.5-5.1 [facility] Comment on above: Performed By: #### Althea GTZ #### [facility] [address] [address] [address] Joe Shea Protein [Mass/Vol] 7.7 g/dL Normal 6.4-8.2 [facility] Comment on above: Performed By: #### Althea GTZ #### [facility] [address] [address] [address] Joe Shea Sodium [Moles/Vol] 138 mmol/L Normal 136-145 [facility] Comment on above: Performed By: #### Althea GTZ #### [facility] [address] [address] [address] Joe Shea Urea nitrogen [Mass/Vol] 9.0 mg/dL Normal 7.0-18.0 [facility] Comment on above: Performed By: #### D TRESA #### [facility] [address] [place], [place] [address] Dr. Joe Shea Urea nitrogen/Creatinine [Mass ratio] 12.3 mg/mg Normal [facility] Comment on above: Performed By: #### D TRESA #### [facility] [address] [place], [place] [address] Dr. Joe Shea XR CHEST 2 Von [...] by: ANA COTE Date: 2022-05-22 02:56 Normal [facility] PROGESTERONEon 05-08-2022 Progesterone 18.1 ng/mL Normal [facility] Comment on above: Result Comment: Foll icular phase 0.1 - 0.9 Luteal phase 1.8 - 23.9 Ovulation phase 0.1 - 12.0 First trimester 11.0 - 44.3 Second trimester 25.4 - 83.3 Third trimester 58.7 - 214.0 Postmenopausal 0.0 - 0.1 Performed By: #### C BC #### [facility] [facility] [address] [place], [place] [address] Dr. Joe Shea DHEA SERUMon 04-12-2022 Dehydroepiandrosterone (DHEA) 577 ng/dL Normal [facility] Comment on above: Result Comment: [...] 701 Performed By: #### C BC #### [facility] [address] [place], [place] [address] Dr. Joe Shea PROGESTERONEon 04-10-2022 Progesterone 16.0 ng/mL Normal [facility] Comment on above: Result Comment: Foll icular phase 0.1 - 0.9 Luteal phase 1.8 - 23.9 Ovulation phase 0.1 - 12.0 First trimester 11.0 - 44.3 Second trimester 25.4 - 83.3 Third trimester 58.7 - 214.0 Postmenopausal 0.0 - 0.1 Performed By: #### Althea GTZ #### [facility] [address] [place] [address] Dr. Joe Shea DHEA-SULFATEon 04-06-2022 DHEA-Sulfate 241.0 ug/dL Normal 110.0-431.7 [facility] Comment on above: Performed By: #### Althea GTZ #### [facility] [address] [place] [address] Dr. Joe Shea FSHon 04-06-2022 FSH 6.6 mIU/mL Normal [facility] Comment on above: Result Comment: Adul t Female: Follicular phase 3.5 - 12.5 Ovulation phase 4.7 - 21.5 Luteal phase 1.7 - 7.7 Postmenopausal 25.8 - 134.8 Performed By: #### Althea GTZ #### [facility] [address] [place] [address] Dr. Joe Shea LUTEINIZING HORMONE (LH)on 1 LH 19.8 mIU/mL Normal [facility] Comment on above: Result Comment: Adul t Female: Follicular phase 2.4 - 12.6 Ovulation phase 14.0 - 95.6 Luteal phase 1.0 - 11.4 Postmenopausal 7.7 - 58.5 Performed By: #### L BCLH #### [facility] [address] [place] [address] Dr. Joe Shea CBC AUTO DIFFon 04-05-2022 BASO # 0.1 103/ul Normal 0.0-0.1 [facility] Comment on above: Performed By: #### C BC #### [facility] [address] [place] [address] Dr. Joe Shea Basophils/100 WBC (Bld) 0.9 % Normal 0.2-2.0 [facility] Comment on above: Performed By: #### C BC #### [facility] [address] [place] [address] Dr. Joe Shea EO # 0.2 103/ul Normal 0.0-0.7 [facility] Comment on above: Performed By: #### C BC #### [facility] [address] [place] [address] Dr. Joe Shea Eosinophils/100 WBC (Bld) 2.6 % Normal 0.9-7.0 [facility] Comment on above: Performed By: #### C BC #### [facility] [address] [place] [address] Dr. Joe Shea Erythrocyte distribution width (RBC) [Ratio] 13.1 % Normal 11.0-15.0 [facility] Comment on above: Performed By: #### C BC #### [facility] [address] [place] [address] Dr. Joe Shea Hematocrit (Bld) [Volume fraction] 38.2 % Normal 36.0-48.0 [facility] Comment on above: Performed By: #### C BC #### [facility] [address] [place] [address] Dr. Joe Shea Hemoglobin (Bld) [Mass/Vol] 12.3 g/dL Normal 12.0-16.0 [facility] Comment on above: Performed By: #### C BC #### [facility] [address] [place] [address] Dr. Joe Shea IG # 0.01 10e3/ul Normal 0.00-0.03 [facility] Comment on above: Performed By: #### C BC #### [facility] [address] [place] [address] Dr. Joe Shea IG % 0.2 % Normal 0.0-0.5 [facility] Comment on above: Performed By: #### C BC #### [facility] [address] [place] [address] Dr. Joe Shea LYMPH # 1.7 103/ul Normal 1.2-3.8 [facility] Comment on above: Performed By: #### C BC #### [facility] [address] [place] [address] Dr. Joe Shea Lymphocytes/100 WBC (Bld) 29.2 % Normal 20.5-60.0 [facility] Comment on above: Performed By: #### C BC #### [facility] [address] [place] [address] Dr. Joe Shea MANUAL DIFF REQ NO Normal [facility] Comment on above: Performed By: #### C BC #### [facility] [address] [place] [address] Dr. Joe Shea MCH (RBC) [Entitic mass] 28.4 pg Normal 26.7-34.0 [facility] Comment on above: Performed By: #### C BC #### [facility] [address] [place] [address] Dr. Joe Shea MCHC (RBC) [Mass/Vol] 32.2 g/dL Normal 29.9-35.2 [facility] Comment on above: Performed By: #### C BC #### [facility] [address] [place] [address] Dr. Joe Shea MCV (RBC) [Entitic vol] 88.2 fL Normal 81.0-99.0 [facility] Comment on above: Performed By: #### C BC #### [facility] [address] [place] [address] Dr. Joe Shea MONO # 0.5 103/ul Normal 0.3-0.8 [facility] Comment on above: Performed By: #### C BC #### [facility] [address] [place] [address] Dr. Joe Shea Monocytes/100 WBC (Bld) 8.2 % Normal 1.7-12.0 [facility] Comment on above: Performed By: #### C BC #### [facility] [address] [place] [address] Dr. Joe Shea NEUT # 3.4 103/ul Normal 1.4-6.5 [facility] Comment on above: Performed By: #### C BC #### [facility] [address] [place] [address] Dr. Joe Shea Neutrophils/100 WBC (Bld) 58.9 % Normal 43.0-75.0 [facility] Comment on above: Performed By: #### C BC #### [facility] [address] [place] [address] Dr. Joe Shea Platelet mean volume (Bld) [Entitic vol] 11.5 fL Normal 9.5-13.5 [facility] Comment on above: Performed By: #### C BC #### [facility] [address] [place] [address] Dr. Joe Shea PLT 233 103/ul Normal 150-450 [facility] Comment on above: Performed By: #### C BC #### [facility] [address] [place] [address] Dr. Joe Shea RBC 4.33 106/ul Normal 4.20-5.40 [facility] Comment on above: Performed By: #### C BC #### [facility] [address] [place] [address] Dr. Joe Shea WBC 5.8 103/ul Normal 4.0-11.0 [facility] Comment on above: Performed By: #### C BC #### [facility] [address] [place] [address] Dr. Joe Shea GLYCOHEMOGLOBIN A1Con 2021 ADA RECOMMENDATION SEE BELOW Normal [facility] Comment on above: Result Comment: ADA RECOMMENDED LIMIT 4.0 - 6.0 ADA THERAPEUTIC TARGET < 7.0 ACTION SUGGESTED > 7.0 Performed By: #### C CARLYN DE JESUS AMY #### [facility] [address] [place] [address] Dr. Joe Shea Glucose [Mass/Vol] 105 mg/dL Normal [facility] Comment on above: Performed By: #### C CARLYN DE JESUS AMY #### [facility] [address] [place] [address] Dr. Joe Shea HbA1c (Bld) [Mass fraction] 5.3 % Normal 4.5-6.2 [facility] Comment on above: Performed By: #### C CARLYN DE JESUS AMY #### [facility] [address] [place] [address] Dr. Joe Shea TSHon 04-05-2022 TSH 0.609 uIU/mL Normal 0.358-3.740 [facility] Comment on above: Performed By: #### C BC #### [facility] [address] [place] [address] Dr. Joe Shea US PELVIS AND TRANSVAGon [...] by: ANGIE MEJIA Date: 2022-04-05 17:23 Normal [facility] AMYLASEon 03-10-2022 Amylase [Catalytic activity/Vol] 64 U/L Normal 25-115 [facility] Comment on above: Performed By: #### C BC #### [facility] [address] [place] [address] Dr. Joe Shea CBC AUTO DIFFon 03-10-2022 BASO # 0.1 103/ul Normal 0.0-0.1 [facility] Comment on above: Performed By: #### C BC #### [facility] [address] [place] [address] Dr. Joe Shea Basophils/100 WBC (Bld) 0.6 % Normal 0.2-2.0 [facility] Comment on above: Performed By: #### C BC #### [facility] [address] [place] [address] Dr. Joe Shea EO # 0.3 103/ul Normal 0.0-0.7 [facility] Comment on above: Performed By: #### C BC #### [facility] [address] [place] [address] Dr. Joe Shea Eosinophils/100 WBC (Bld) 1.7 % Normal 0.9-7.0 [facility] Comment on above: Performed By: #### C BC #### [facility] [address] [place] [address] Dr. Joe Shea Erythrocyte distribution width (RBC) [Ratio] 13.1 % Normal 11.0-15.0 [facility] Comment on above: Performed By: #### C BC #### [facility] [address] [place] [address] Dr. Joe Shea Hematocrit (Bld) [Volume fraction] 37.9 % Normal 36.0-48.0 [facility] Comment on above: Performed By: #### C BC #### [facility] [address] [place] [address] Dr. Joe Shea Hemoglobin (Bld) [Mass/Vol] 12.2 g/dL Normal 12.0-16.0 [facility] Comment on above: Performed By: #### C BC #### [facility] [address] [place] [address] Dr. Joe Shea IG # 0.05 10e3/ul Critically high 0.00-0.03 [facility] Comment on above: Performed By: #### C BC #### [facility] [address] [place] [address] Dr. Joe Shea IG % 0.3 % Normal 0.0-0.5 [facility] Comment on above: Performed By: #### C BC #### [facility] [address] [place] [address] Dr. Joe Shea LYMPH # 4.7 103/ul Critically high 1.2-3.8 [facility] Comment on above: Performed By: #### C BC #### [facility] [address] [place] [address] Dr. Joe Shea Lymphocytes/100 WBC (Bld) 28.3 % Normal 20.5-60.0 [facility] Comment on above: Performed By: #### C BC #### [facility] [address] [place] [address] Dr. Joe Shea MANUAL DIFF REQ NO Normal [facility] Comment on above: Performed By: #### C BC #### [facility] [address] [place] [address] Dr. Joe Shea MCH (RBC) [Entitic mass] 27.9 pg Normal 26.7-34.0 [facility] Comment on above: Performed By: #### C BC #### [facility] [address] [place] [address] Dr. Joe Shea MCHC (RBC) [Mass/Vol] 32.2 g/dL Normal 29.9-35.2 [facility] Comment on above: Performed By: #### C BC #### [facility] [address] [place] [address] Dr. Joe Shea MCV (RBC) [Entitic vol] 86.5 fL Normal 81.0-99.0 [facility] Comment on above: Performed By: #### C BC #### [facility] [address] [place] [address] Dr. Joe Shea MONO # 0.9 103/ul Critically high 0.3-0.8 [facility] Comment on above: Performed By: #### C BC #### [facility] [address] [place] [address] Dr. Joe Shea Monocytes/100 WBC (Bld) 5.5 % Normal 1.7-12.0 [facility] Comment on above: Performed By: #### C BC #### [facility] [address] [place] [address] Dr. Joe Shea NEUT # 10.5 103/ul Critically high 1.4-6.5 [facility] Comment on above: Performed By: #### C BC #### [facility] [address] [place] [address] Dr. Joe Shea Neutrophils/100 WBC (Bld) 63.6 % Normal 43.0-75.0 [facility] Comment on above: Performed By: #### C BC #### [facility] [address] [place] [address] Dr. Joe Shea Platelet mean volume (Bld) [Entitic vol] 11.1 fL Normal 9.5-13.5 [facility] Comment on above: Performed By: #### C BC #### [facility] [address] [place] [address] Dr. Joe Shea PLT 428 103/ul Normal 150-450 [facility] Comment on above: Performed By: #### C BC #### [facility] [address] [place] [address] Dr. Joe Shea RBC 4.38 106/ul Normal 4.20-5.40 [facility] Comment on above: Performed By: #### C BC #### [facility] [address] [place] [address] Dr. Joe Shea WBC 16.6 103/ul Critically high 4.0-11.0 [facility] Comment on above: Performed By: #### C BC #### [facility] [address] [place] [address] ABD/PELV W CONon [...] by: MURALI STRANGE Date: 2022-03-10 16:59 Normal [facility] LIPASEon 03-10-2022 Lipase [Catalytic activity/Vol] 81.0 U/L Normal 73.0-393.0 [facility] Comment on above: Performed By: #### C BC #### [facility] [address] [place] [address] Dr. Joe Shea LIVER PROFILEon 03-10-2022 Albumin [Mass/Vol] 4.2 g/dL Normal 3.4-5.0 [facility] Comment on above: Performed By: #### C BC #### [facility] [address] [place] [address] Dr. Joe Shea Albumin/Globulin [Mass ratio] 1.4 {ratio} Normal [facility] Comment on above: Performed By: #### C BC #### [facility] [address] [place] [address] Dr. Joe Shea ALP [Catalytic activity/Vol] 50 U/L Normal 46-116 [facility] Comment on above: Performed By: #### C BC #### [facility] [address] [place] [address] Dr. Joe Shea ALT [Catalytic activity/Vol] 14 U/L Normal 14-59 [facility] Comment on above: Performed By: #### C BC #### [facility] [address] [place] [address] Dr. Joe Shea AST [Catalytic activity/Vol] 13 U/L Critically low 15-37 [facility] Comment on above: Performed By: #### C BC #### [facility] [address] [place] [address] Dr. Joe Shea BILI, CONJUGATED 0.1 mg/dL Normal 0.0-0.2 [facility] Comment on above: Performed By: #### C BC #### [facility] [address] [place] [address] Dr. Joe Shea Bilirubin [Mass/Vol] 0.3 mg/dL Normal 0.2-1.0 [facility] Comment on above: Performed By: #### C BC #### [facility] [address] [place] [address] [address] Joe Shea Globulin (S) [Mass/Vol] 3.1 g/dL Normal [facility] Comment on above: Performed By: #### C BC #### [facility] [address] [place] [address] [address] Joe Shea Protein [Mass/Vol] 7.3 g/dL Normal 6.4-8.2 [facility] Comment on above: Performed By: #### C BC #### [facility] [address] [place] [address] Dr. Joe Shea PREG HCG QUALon 03-10-2022 , QUAL Negative Normal NEGATIVE [facility] Comment on above: Performed By: #### L BCLH #### [facility] [address] [place] [address] Dr. Joe Shea PROF CHEM 8 (BAS METB)on Anion gap [Moles/Vol] 17.6 mmol/L Normal [facility] Comment on above: Performed By: #### C MP, LIPA, NESTOR #### [facility] [address] [place] [address] [address] Joe Shea Calcium [Mass/Vol] 9.0 mg/dL Normal 8.5-10.1 [facility] Comment on above: Performed By: #### C MP, LIPA, NESTOR #### [facility] [address] [place] [address] Dr. Joe Shea Chloride [Moles/Vol] 102 mmol/L Normal 98-107 [facility] Comment on above: Performed By: #### C MP, LIPA, NESTOR #### [facility] [address] [place] [address] [address] Joe Shea CO2 [Moles/Vol] 23.4 mmol/L Normal 21.0-32.0 [facility] Comment on above: Performed By: #### C MP, LIPA, NESTOR #### [facility] [address] [place] [address] [address] Joe Shea Creatinine [Mass/Vol] 0.84 mg/dL Normal 0.55-1.02 [facility] Comment on above: Performed By: #### C MP, LIPA, NESTOR #### [facility] [address] [place] [address] [address] Joe Shea EGFR-AF SAMMARINESE >60 Normal >=60 [facility] Comment on above: Performed By: #### C MP, LIPA, NESTOR #### [facility] [address] [place] [address] [address] Joe Shea EGFR-NON AF SAMMARINESE >60 Normal >=60 [facility] Comment on above: Performed By: #### C MP, LIPA, NESTOR #### [facility] [address] [place] [address] [address] Joe Shea Glucose [Mass/Vol] 149 mg/dL Critically high 74-106 [facility] Comment on above: Performed By: #### C MP, LIPA, NESTOR #### [facility] [address] [place] [address] [address] Joe Shea Potassium [Moles/Vol] 2.9 mmol/L Critically low 3.5-5.1 [facility] Comment on above: Performed By: #### C MP, LIPA, NESTOR #### [facility] [address] [place] [address] [address] Joe Shea Sodium [Moles/Vol] 139 mmol/L Normal 136-145 [facility] Comment on above: Performed By: #### C MP, LIPA, NESTOR #### [facility] [address] [place] [address] [address] Joe Shea Urea nitrogen [Mass/Vol] 11.0 mg/dL Normal 7.0-18.0 [facility] Comment on above: Performed By: #### C MP, LIPA, NESTOR #### [facility] [address] [place] [address] [address] Joe Shea Urea nitrogen/Creatinine [Mass ratio] 13.1 mg/mg Normal [facility] Comment on above: Performed By: #### C CARLYN DE JESUS AMY #### [facility] [address] [place] [address] [address] Joe Shea XR CSPINE 2_3 VIEWSon [...] by: ANGIE MEJIA Date: 2022-01-18 08:03 Normal [facility] C BP Strepon 12-23-2019 C BP Strep This is strictly a screening test for Strep Group A( Streptococcus pyogenes). No other pathogens will be noted. Final Backup plate negative for Group A Streptococus Resulted at [facility] Normal [facility] Comment on above: Performed By: #### B P #### [facility] (DEFAULT) [address] [place] [address] [facility] [address] [place] [address] Ambulatory Patient Education on 12-21-2019 Ambulatory Patient [...] a child 2 years or older. ? [id number] [employer] [address] [place] [address], [place] [address]. All rights reserved. This information is not intended as a substitute for professional medical care. Always follow your healthcare professional's instructions. Strep today is Negative. Will send for culture to [facility] and notify if it returns positive. Take medication as prescribed. Discontinue for a negative strep culture. Discard and replace toothbrush after taking antibiotics for at least 24 hours. May use eicn-vti-qrbuzxu Tylenol and Motrin for pain relief. May use of ibbz-hsj-cciagsp Chloraseptic throat spray, lozenges, cool or warm [...] tabs, 0 Refill(s), 12/26/19 14:42:00 EDT, Pharmacy: [facility] [id number] [facility] [place] Track[place] 12-21-2019 BVO Red Swab # 1 [facility] Comment on above: Performed By: #### O [facility] Tracking Order #### [facility] [address] [place] [address] Urgent Care Office/Clinic No sabiha 12-21-2019 Urgent [...] POC: negative. Swab will be sent to [facility] for culture. We will call if positive and treat appropriately. Additional Vitals Body Mass Index Measured: 18.43 kg/m2 Peripheral Pulse Rate: 111 bpm High Assessment/Plan 1. Sore throat Strep today is Negative. Will send for culture to [facility] and notify if it returns positive. Take medication as prescribed. Discontinue for a negative strep culture. Discard and replace toothbrush after taking antibiotics for at least 24 hours. May use lcpj-evu-ssjxcao Tylenol and Motrin for pain relief. May use of pgwv-jsf-minmakb Chloraseptic throat spray, lozenges, cool or warm [...] tabs, 0 Refill(s), 12/26/19 14:42:00 EDT, Pharmacy: [facility] [id number] Physician Comments Centor criteria [...] by Rosa Fitch 12/21/19 15:[address] [facility] Vital Signs Date Time Vital Sign Value Performing Clinician Facility 03-28-2023 10:16-0400 Body height 157.48 cm Referring Provider Unknown [id number] [address] [place] Work Phone: 03-28-2023 10:16-0400 Body mass index (BMI) [Ratio] 23.78 kg/m2 Referring Provider Unknown [id number] [address] [place] Work Phone: 03-28-2023 10:16-0400 Body surface area Derived from formula 1.59 m2 Referring Provider Unknown [id number] [address] [place] Work Phone: 03-28-2023 10:16-0400 Body weight 58.97 kg Referring Provider Unknown [id number] [address] [place] Work Phone: 03-28-2023 10:16-0400 Diastolic blood pressure 65 mm[Hg] Referring Provider Unknown [id number] [address] [place] Work Phone: 03-28-2023 10:16-0400 Heart rate 96 /min Referring Provider Unknown [id number] [address] [place] Work Phone: 03-28-2023 10:16-0400 Systolic blood pressure 107 mm[Hg] Referring Provider Unknown [id number] [address] [place] Work Phone: 03-28-2023 10:16-0400 0 1 Referring Provider Unknown [id number] [address] [place] Work Phone: Comment on above: [employer] 02-14-2023 09:15-0400 Body height 154.94 cm Filippo Larson Other [employer] Other 02-14-2023 09:15-0400 Body mass index (BMI) [Ratio] 21.73 kg/m2 Filippo Larson Other [employer] Other 02-14-2023 09:15-0400 Body weight 52.16 kg Filippo Larson Other [employer] Other 02-14-2023 09:15-0400 Diastolic blood pressure 68 mm[Hg] Filippo Larson Other [employer] Other 02-14-2023 09:15-0400 Systolic blood pressure 96 mm[Hg] Filippo Larson Other [employer] Other 07-17-2022 14:26-0500 Blood Pressure Location [facility]ito OB[facility] [place] 07-17-2022 14:26-0500 Diastolic blood pressure 70 mm[Hg] Mayito OBANDOL [facility] [place] 07-17-2022 14:26-0500 Heart rate 70 /min Mayito LIM [facility] [place] 07-17-2022 14:26-0500 Respiratory rate 16 /min Mayito OBANDOL [facility] [place] 07-17-2022 14:26-0500 Systolic blood pressure 102 mm[Hg] Mayito LIM [facility] [place] 03-09-2020 20:24-0400 BP Diastolic 61 mm[Hg] PHYSICIAN NO [facility] 03-09-2020 20:24-0400 BP Systolic 117 mm[Hg] PHYSICIAN NO [facility] 03-09-2020 20:24-0400 Pulse (Heart Rate) 85 /min PHYSICIAN NO [facility] 03-09-2020 20:24-0400 Pulse Oximetry 100 % PHYSICIAN NO [facility] 03-09-2020 20:24-0400 Respiratory Rate 24 /min PHYSICIAN NO [facility] 03-09-2020 18:49-0400 BMI (Body Mass Index) 20 kg/m2 PHYSICIAN NO [facility] 03-09-2020 18:49-0400 Body Temperature 98.7 [degF] PHYSICIAN NO [facility] 03-09-2020 18:49-0400 Body weight 49.7 kg PHYSICIAN NO [facility] 03-09-2020 18:49-0400 Height 157.48 cm PHYSICIAN NO [facility] Encounters Encounter Date Encounter Type Care Provider Facility Start: 07-09-2023 End: 07-09-2023 ambulatory CECIL QUINTANA Not Available Start: 07-08-2023 End: 07-08-2023 ambulatory LYLY SMITH [facility] Start: 07-08-2023 End: 07-08-2023 Office outpatient visit 15 minutes Paulie Cervantes MD Work Phone: Maternal- Medicine at [facility] Comment on above: 34 weeks gestation o f (Primary Dx); Poor growth affecting management of mother in third trimester, fetus 1 of multiple gestation; Dichorionic diamniotic twin in third trimester; Anxiety during Start: 07-04-2023 Orders Only Freddy Christensen rnal- Medicine at [facility] Comment on above: Dichorionic diamniot ic [...] new/estab patient 80 min Referring Provider Unknown [id number] [address] [place] Work Phone: Start: 03-28-2023 Patient encounter procedure Referring Provider Unknown [id number] 1200 [place] Work Phone: Start: 03-28-2023 ambulatory Ramakrishnanando Schwarz Facility :[facility] Start: 02-14-2023 End: 02-14-2023 ambulatory Filippo Larson Other [employer] Other Start: 02-14-2023 Office outpatient vi sit 15 minutes Filippo Larson [facility] Start: 11-28-2022 End: 11-28-2022 [...] laboratory examination DR CECIL QUINTANA . [facility] Start: 07-06-2022 End: 07-07-[address] CECIL QUINTANA . Facility:[facility] Start: 07-06-2022 End: 07-07-2022 Encounter for preprocedural laboratory examination DR CECIL QUINTANA . Facility:[facility] Start: 06-15-2022 End: 06-16-[address] CECIL QUINTANA . Facility:[facility] Start: 06-11-2022 End: 06-12-2022 ambulatory JUANJOSE VIRAMONTES Facility:[facility] Start: 06-08-2022 ambulatory SUKI CONDE PROVIDER Facility:[facility] Start: 05-31-2022 End: 06-01-[address] CECIL [...] 03-09-2020 Emergency department patient visit PHYSICIAN KIMI OR [facility] Start: 04-27-2014 End: 04-27-2014 Telephone encounter Noa Dimas MD Work Phone: Reproductive Endocrinology Infertility Procedures Date Procedure Procedure Detail Performing Clinician Start: 10-25-2020 Microscopic observation [Identifier] in Cervix by Cyto stain Freddy Hughes FARM SERVICE ADVISER Colonoscopy Mayito OBANDOL Dilation and curettage Temo OBANDOL Dilation and curettage Temo douglass NILL Esophagogastroduodenoscopy M ichdemar NILL Excision of cyst of ovary Mi real NILL Laparoscopy Mayito NILL Plan of Treatment Date Care Activity Detail Author Start: 05-28-2032 DTaP,Tdap and Td Vaccines (8 - Td or Tdap) DTaP,Tdap and Td Vaccines (8 - Td or Tdap) [facility] Start: 07-04-2024 End: 07-04-2024 US MFM with or without consult US MFM with or without consult Imaging Routine Dichorionic diamniotic twin in third trimester Poor growth affecting management of mother in third trimester, fetus 1 of multiple gestation Expected: 07/04/2024 (Approximate), Expires: 07/04/2024 [facility] [employer] Work Phone: Comment on above: Expected: 07/04/2024 (Approximate), Expires: 07/04/2024 Start: 06-03-2024 Adult BMI Screening Adult BMI Screen ing [facility] Start: 06-03-2024 Tobacco Screening Tobacco Screening [facility] Start: 2024 Screening for Chlamy carroll trachomatis Chlamydia Screening [facility] Start: 10-26-2023 Screening for malign ant neoplasm of cervix Pap Smear [facility] Start: 07-17-2023 End: 07-17-2023 Patient encounter procedure 07/17/2023 9:30 AM EST Appointment [facility] [address] [place] [phone] [facility] Start: 07-08-2023 End: 07-08-2023 Telemedicine consultation with patient 07/08/2023 1:00 PM EST Telemedicine Maternal- Medicine at [facility] [address] [place] [id number] Paulie Cervantes MD [address] [facility] [place] [address] Lyly Smith MD [address] [facility] 1[address] [place] [address] Maternal- Medicine at [facility] Start: 03-01-2023 Influenza vaccination Influenza Vacc ine [facility] Start: 03-01-2021 Influenza vaccination INFLUENZ A (Season Ended) [facility] Start: 02-28-2020 PAP TESTING PAP TESTING [facility] Start: 2018 Urine microalbumin profile DTAP,TDAP,TD (1 - Tdap) [facility] Start: 2017 Adult BMI Follow Up Plan Adult BMI Follow Up Plan [facility] Start: 2017 CHLAMYDIA SCREENING (18-24) CHLAMYDIA SCREENING (18-24) [facility] Start: 2017 GC (GONORRHEA) SCREE KRUNAL (18-24) GC (GONORRHEA) SCREENING (18-24) [facility] Start: 2017 HEPATITIS C SCREENING HEPATITIS C SC REENING [facility] Start: 2017 HIV SCREENING HIV SCREENING [facility] Start: 2011 Adult depression screening assessment DEPRESSION SCREENING [facility] Start: 2010 HPV VACCINE (1 - 2-d ose series) HPV VACCINE (1 - 2-dose series) [facility] Patient Education Anxiety (ED) [facility] Patient referral [facility] Immunizations Immunization Date Immunization Notes Care Provider Fa cility 01-05-2022 influenza virus vaccine, unspecified formulation Freddy Hughes [facility] NEGATED: Highlighted row has not occurred!07-17-2022 influenza virus vaccine, unspecified formulation Mayito LIM [facility] [place] Payers Date Payer Category Payer Unknown 2013 Unknown [facility] [employer] [place] P[employer] [id number] 2013-2014 PPO [id number] 1999 Unknown [id number] 2.16.840.1.220707.3.579.2.727 1999 Unknown [id number] 2.16.840.1.371318.3.579.2.727 1999 Unknown [id number] 2.16.840.1.403863.3.579.2.593 1999 Unknown [id number] 2.16.840.1.591265.3.579.2.593 1999 Unknown [id number] 2.16.840.1.088120.3.579.2.593 1999 Unknown [id number] 2.16.840.1.967079.3.579.2.593 1999 Unknown [id number] 2.16.840.1.681429.3.579.2.593 1999 Unknown [id number] 2.16.840.1.556703.3.579.2.593 1999 Unknown [id number] 2.16.840.1.186774.3.579.2.593 1999 Unknown [id number] 2.16.840.1.651973.3.579.2.593 1999 Unknown [id number] 2.16.840.1.152591.3.579.2.593 1999 Unknown [id number] 2.16.840.1.015267.3.579.2.593 1999 Unknown [id number] 2.16.840.1.530394.3.579.2.593 1999 Unknown [id number] 2.16.840.1.244007.3.579.2.593 1999 Unknown [id number] 2.16.840.1.895776.3.579.2.593 1999 Unknown [id number] 2.16.840.1.347811.3.579.2.593 1999 Unknown [id number] 2.16.840.1.951674.3.579.2.593 1999 Unknown [id number] 2.16.840.1.562682.3.579.2.593 1999 Unknown [id number] 2.16.840.1.021687.3.579.2.593 1999 Unknown [id number] 2.16.840.1.646445.3.579.2.593 1999 Unknown [id number] 2.16.840.1.661078.3.579.2.593 1999 Unknown [id number] 2.16.840.1.673654.3.579.2.593 1999 Unknown [id number] 2.16.840.1.162988.3.579.2.593 1999 Unknown [id number] 2.16.840.1.871155.3.579.2.356 1999 Unknown [id number] 2.16.840.1.399852.3.579.2.1259 1999 Unknown [id number] 2.16.840.1.721788.3.579.2.1259 1999 Unknown [id number] 2.16.840.1.856829.3.579.2.1259 1999 Unknown [id number] 2.16.840.1.544553.3.579.2.1259 1999 Unknown [id number] 2.16.840.1.682730.3.579.2.1286 1999 Unknown [id number] 2.16.840.1.500896.3.579.2.1286 1959 Unknown [id number] 1959 Unknown [id number] 1959 Unknown [id number] Self-pay Self Pay [id number] Unknown Self Pay [id number] Social History Date Type Detail Facility Start: 03-09-2020 Tobacco smoking status NHIS Smoker (finding) [facility] Start: 1999 Sex Assigned At Female [facility] Start: 04-12-2014 Tobacco smoking status NHIS Never smoker [facility] Start: 04-12-2014 End: 04-01-2023 Tobacco use and exposure Never used [facility] Start: 04-12-2014 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 (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) [facility] Start: 1999 Sex Assigned At Not on file [facility] Start: 07-17-2022 End: 04-01-2023 Tobacco smoking status Ex-smoker (finding) [facility] [place] Tobacco smoking status Smokeless tobacco user within last 30 days [facility] [place] Start: 06-03-2023 Sex Assigned At Female [facility] Start: 04-01-2023 End: 06-03-2023 No alcohol use No alcohol use [facility] History of tobacco use Cigarette Smoker [facility] Start: 06-03-2023 Alcohol intake Ex-drinker (finding) [facility] Start: 10-25-2020 [facility] Start: 11-22-2022 [facility] NEGATED: Highlighted row Denies History of domestic violence Denies History of domestic violence [id number] [address] [place] Work Phone: Goals Date Patient Goal Desired Activity /State Functional Status Date Assessment Result Facility 07-17-2022 Functional Status N/A [facility] Clinical Notes 04-27-2014 to 07-08-2023 Lyly Smith MD - 07/08/2023 1:00 PM EST Note Date & Type Note Facility 07-08-2023 History of Present illness Narrative Video Visit via Real-time Synchronous Audiovisual Provider Location: [facility] AT [address] [phone] Patient Location: Patient Location Award Clerk: None Video Visit Consent Statement: I discussed [...] that there are some limitations compared to [id number] evaluations. We elected to proceed. REASON FOR [...] and B, status post 2nd opinion at [facility] Anxiety/ depression, managed on citalopram 40 [...] and B, status post 2nd opinion at [facility] COUNSELING We reviewed signs symptoms of [...] Serial Doppler studies for growth restriction at [facility] office, Doppler studies remain normal, repeat on 07/17/2023 Delivery scheduled at 37 weeks' gestation with primary OB at local hospital, primary due to male presentation of twin a, breech Patient is scheduled for repeat umbilical artery Doppler assessment in 2 weeks, no future clinic visits with [facility] Thank you for allowing me to participate in Shanon Louise care. If there are any questions, please do not hesitate to call me. Lyly Smith MD Maternal- Medicine [facility] [address] [place] [address] documented in this encounter [employer] 02-14-2023 Evaluation note Encounter Date Diagnosis Assessment [...] needed. Retrun visit here in three months. [employer] Other 01-20-2023 NoteChief Complaint consultation for epigastric [...] years ago at [facility] was normal. History of Present Illness 22 yo female with h/o bipolar disorder, anxiety, migraines, referred for intermittent epigastric and LUQ pain, burning, at times sharp/stabbing; occasional N/V; + boating; no food triggers, occurs celia without eating; no hematemesis or melena; no hematochezia, some constipation, improved with stool softeners; had normal EGD and [place] [facility] [place]; abdominal operations significant for laparoscopy [...] more than 30 da (more content not included)...[facility]Result Comment: Electronically Signed By: RAPHAEL MACIAS, Mayito Matthews\Date and Time Signed: 07/20/22 14:58 [id number] Note OPERATIVE NOTE OPERATION DATE: 07/10/2021 PROCEDURE: Diagnostic laparoscopy with chromopertubation. PREOPERATIVE DIAGNOSIS: Pelvic pain. POSTOPERATIVE DIAGNOSIS: Pelvic pain, including small endometrial implant posterior cul-de-sac, as well as possible blunted tube on the patient's left side. ANESTHESIA: General. SURGEON: Cecil Quintana D.O. ROPE TWISTING MACHINE OPERATOR: ISAURO Mccoy URINE OUTPUT: Yellow and clear. BLOOD LOSS: 5 mL. FINDINGS: Slightly blunted tube on the left side, endometriosis posterior cul-de-sac, otherwise normal appearing uterus, tubes and ovaries. Normal appearing appendix. Some adhesions of the bowel to the pelvic and abdominal side wall on the patient's right side. Normal appearing liver. No evidence of Vgso-Lvju-Pxwbeq syndrome. PROCEDURE: The patient was taken back [...] [facility]OP Note OPERATION DATE: 07/10/2022 PROCEDURE: Diagnostic laparoscopy with chromopertubation. PREOPERATIVE DIAGNOSIS: Pelvic pain, suspected endometriosis, fallopian tube disorder. POSTOPERATIVE DIAGNOSIS: Pelvic pain, suspected endometriosis, fallopian tube disorder, including mild endometriosis, bilateral patent fallopian tubes, small bowel adhesion to the pelvic side wall. ANESTHESIA: General. SURGEON: Cecil Quintana D.O. ROPE TWISTING MACHINE OPERATOR: ISAURO Mccoy URINE OUTPUT: Yellow and clear. BLOOD LOSS: 5 mL. ADDENDUM: Please note that chromopertubation was performed after methylene blue was placed through the HUMI manipulator. Spillage of methylene blue could be seen from both tubes.[facility] [id number] Instructions* Patient Instructions* [facility], Jennifer - 04/27/2014 4:49 PM EDT [phone] - Patient mother would like to speak with a nurse concerning medications that her daughter is taking. [facility] N[facility] - Reported * the patient is seen at the request of Dr. Gonzales at [facility] for consultation regarding second opinion for placental hemorrhage; EDC 08/15/2023 * FC MA [id number] [address] [place] Work Phone: chiqa complaint Narrative - Reported* the patient is seen at the request of Dr. Gonzales at [facility] for consultation regarding second opinion for placental hemorrhage; EDC 08/15/2023 * FC MA [id number] [address] [place] Work Phone: evaluation + Plan note No data available for this section [facility] [place] Evaluation note* Diagnosis Dichorionic diamniotic twin in third trimester- Primary Poor growth affecting management of mother in third trimester, fetus 1 of multiple gestation [facility] Diagnosis 34 weeks gestation of - Primary Poor growth affecting management of mother in third trimester, fetus 1 of multiple gestation Dichorionic diamniotic twin in third trimester Anxiety during [facility] N[facility]ative - Reported* Type Description Date Medical History Anxiety Medical History GERD (gastroesophageal reflux di sease) Medical History bipolar Surgical History LAPAROSCOPY-times 2 2013 [facility] & CT scans 12/2022 [employer] Other Hospital Discharge instructions No data available for this section [facility] InstructionsNot on filedocumented in this encounter [facility] System[facility]ructionsNot on filedocumented in this encounter [facility] No data available for [...] fetus 1 of multiple gestation Procedures US [facility] with or without consult Amadeo Heaton MD [address] [facility] [address] [place] [address] [facility] Maternal Med [address] [place] [address] Referral ID Status Reason Start Date Expiration Date V isits Requested Visits Authorized [id number] Pending Review 07/04/2023 07/03/2024 1 1 Additional Source Comments INFORMATION SOURCE (unrecogn ized section and content) DATE CREATED AUTHOR 02/04/2020 [facility] DATE CREATED AUTHOR AUTHOR'S ORGANIZ ATION 08/16/2022 [facility] DATE CREATED AUTHOR AUTHOR'S ORGANIZ ATION 12/07/2022 [facility] DATE CREATED AUTHOR AUTHOR'S ORGANIZ ATION 04/06/2023 [facility] DATE CREATED AUTHOR AUTHOR'S ORGANIZ ATION 07/10/2023 [facility] EPIC DATE CREATED AUTHOR AUTHOR'S FRANK ATION 07/12/2023 [facility] Source Comments (unrecognize d section and content) In the event this informatio n is protected by the Federal Confidentiality of Alcohol and Drug Abuse Patient Records regulations: The Federal rules restrict any use of the information to criminally investigate or prosecute any alcohol or drug abuse patient.[facility] Patient Care team informatio n (unrecognized section and content) 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 [facility]. provides no warranty or guarantee of the accuracy or completeness of information in this document.
--- OUTSIDE RECORDS SUMMARY | 2023-07-16 16:43 | XMS_ITS | CCD ---
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 Role Phone NO FAMILY, PHYSICIAN Primary [...] Unavailable AMAYA, DR SUKI Kong Attending Unavailable AMITY, DR ANGIE Arce Consulting Unavailable REQUEST, DR NONE LISTED Primary Care Unavaila caitie CONDE, DR SUKI Kong Consulting Unavailable Filippo Larson Unavailable [phone] Unknown, Referring Provider Unavailable Unav ailable [...] Medication Allergies] Propensity to adverse reactions (disorder) [facility] Repository Medications Current Medications Medication Drug [...] 07/17/22 Status: Ordered take 2 tablets by [facility] once daily at bedtime Elavil [...] 07/17/22 Status: Ordered take 1 tablet by [facility] once daily Zofran 4 MG 1 tablet [...] Other alf (current) drug therapy; 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 Gonzales in [place]. Twins are doing well, their growth is [...] EFW (oz) 12 oz EFW by: Hadlock (INL-WO-US-FL) Extended Quarter Doper 5.8 mm CM 3.9 mm 16% Nicolaides [...] mm 61 (more content not included)... Normal [facility] AMYLASEon 10-28-2022 Amylase [Catalytic activity/Vol] 35 U/L Normal 25-115 [facility] Comment on above: Performed By: #### C CARLYN DE JESUS AMY #### [facility] [address] [address] [address] Joe Shea CBC AUTO DIFFon 10-28-2022 BASO # 0.1 103/ul Normal 0.0-0.1 [facility] Comment on above: Performed By: #### C CARLYN DE JESUS AMY #### [facility] [address] [place], [place] [address] Dr. Joe Shea Basophils/100 WBC (Bld) 0.4 % Normal 0.2-2.0 [facility] Comment on above: Performed By: #### C MP, LIPA, NESTOR #### [facility] [address] [place] [address] Dr. Joe Shea EO # 0.1 103/ul Normal 0.0-0.7 [facility] Comment on above: Performed By: #### C NEAL LIPA, NESTOR #### [facility] [address] [place] [address] Dr. Joe Shea Eosinophils/100 WBC (Bld) 0.8 % Critically low 0.9-7. 0 [facility] Comment on above: Performed By: #### C NEAL LIPA, NESTOR #### [facility] [address] [place] [address] Dr. Joe Shea Erythrocyte distribution width (RBC) [Ratio] 13.2 % Normal 11.0-15.0 [facility] Comment on above: Performed By: #### C NEAL LIPA, NESTOR #### [facility] [address] [place] [address] Dr. Joe Shea Hematocrit (Bld) [Volume fraction] 37.2 % Normal 36.0-48.0 [facility] Comment on above: Performed By: #### C HUGO DE JESUSA, NESTOR #### [facility] [address] [place] [address] Dr. Joe Shea Hemoglobin (Bld) [Mass/Vol] 12.0 g/dL Normal 12.0-16.0 [facility] Comment on above: Performed By: #### C NEAL LIPA, NESTOR #### [facility] [address] [place] [address] Dr. Joe Shea IG # 0.03 10e3/ul Normal 0.00-0.03 [facility] Comment on above: Performed By: #### C HUGO DE JESUSA, NESTOR #### [facility] [address] [place] [address] Dr. Joe Shea IG % 0.2 % Normal 0.0-0.5 [facility] Comment on above: Performed By: #### C NEAL LIPA, NESTOR #### [facility] [address] [place] [address] Dr. Joe Shea LYMPH # 1.9 103/ul Normal 1.2-3.8 [facility] Comment on above: Performed By: #### C CARLYN DE JESUS AMY #### [facility] [address] [place] [address] Dr. Joe Shea Lymphocytes/100 WBC (Bld) 15.2 % Critically low 20.5-6 0.0 [facility] Comment on above: Performed By: #### C CARLYN DE JESUS, NESTOR #### [facility] [address] [place] [address] Dr. Joe Shea MANUAL DIFF REQ NO Normal [facility] Comment on above: Performed By: #### C CARLYN DE JESUS AMY #### [facility] [address] [place] [address] Dr. Joe Shea MCH (RBC) [Entitic mass] 28.4 pg Normal 26.7-34.0 [facility] Comment on above: Performed By: #### C CARLYN DE JESUS, NESTOR #### [facility] [address] [place] [address] Dr. Joe Shea MCHC (RBC) [Mass/Vol] 32.3 g/dL Normal 29.9-35.2 [facility] Comment on above: Performed By: #### C CARLYN DE JESUS NESTOR #### [facility] [address] [place] [address] Dr. Joe Shea MCV (RBC) [Entitic vol] 87.9 fL Normal 81.0-99.0 [facility] Comment on above: Performed By: #### C CARLYN DE JESUS, NESTOR #### [facility] [address] [place] [address] Dr. Joe Shea MONO # 0.9 103/ul Critically high 0.3-0.8 [facility] Comment on above: Performed By: #### C CARLYN DE JESUS, NESTOR #### [facility] [address] [place] [address] Dr. Joe Shea Monocytes/100 WBC (Bld) 7.1 % Normal 1.7-12.0 [facility] Comment on above: Performed By: #### C MP LIPA, NESTOR #### [facility] [address] [place] [address] Dr. Joe Shea NEUT # 9.5 103/ul Critically high 1.4-6.5 [facility] Comment on above: Performed By: #### C MP LIPA, NESTOR #### [facility] [address] [place] [address] Dr. Joe Shea Neutrophils/100 WBC (Bld) 76.3 % Critically high 43.0- 75.0 [facility] Comment on above: Performed By: #### C MP LIPA, NESTOR #### [facility] [address] [place] [address] Dr. Joe Shea Platelet mean volume (Bld) [Entitic vol] 10.8 fL Normal 9.5-13.5 [facility] Comment on above: Performed By: #### C NEAL LIPA, NESTOR #### [facility] [address] [place] [address] Dr. Joe Shea PLT 283 103/ul Normal 150-450 [facility] Comment on above: Performed By: #### C NEAL LIPA, NESTOR #### [facility] [address] [place] [address] Dr. Joe Shea RBC 4.23 106/ul Normal 4.20-5.40 [facility] Comment on above: Performed By: #### C NEAL LIPA, NESTOR #### [facility] [address] [place] [address] Dr. Joe Shea WBC 12.5 103/ul Critically high 4.0-11.0 [facility] Comment on above: Performed By: #### C NEAL LIPA, NESTOR #### [facility] [address] [place] [address] ABD/PELV W CONon [...] MISTI BREWER Date: 2022-10-28 18:31 Normal [facility] URINE PROFILEon 3 Bilirubin Ql (U) Negative Normal NEGATIVE [facility] Comment on above: Performed By: #### L BCL #### [facility] [address] [place] [address] Dr. Joe Shea Clarity (U) CLEAR Normal CLEAR [facility] Comment on above: Performed By: #### L BARRY #### [facility] [address] [place] [address] Dr. Joe Shea Color (U) LT. YELLOW Normal YELLOW [facility] Comment on above: Performed By: #### L BARRY #### [facility] [address] [place] [address] Dr. Joe YUNG A micrscopic examination will be performed if indicated. Normal [facility] Comment on above: Performed By: #### L BARRY #### [facility] [address] [place] [address] Dr. Joe Shea Glucose Ql (U) Negative Normal NEGATIVE [facility] Comment on above: Performed By: #### L BCL #### [facility] [address] [place] [address] Dr. Joe Shea Hemoglobin Ql (U) Negative Normal NEGATIVE [facility] Comment on above: Performed By: #### L BCL #### [facility] [address] [place] [address] Dr. Joe Shea Ketones Ql (U) Negative Normal NEGATIVE [facility] Comment on above: Performed By: #### L BCL #### [facility] [address] [place] [address] Dr. Joe Shea LEUKOCYTES TRACE Abnormal NEGATIVE [facility] Comment on above: Performed By: #### L BCL #### [facility] [address] [place] [address] Dr. Joe Shea Nitrite Ql (U) Negative Normal NEGATIVE [facility] Comment on above: Performed By: #### L BCL #### [facility] [address] [place] [address] Dr. Joe Shea pH (U) 8.0 [pH] Normal 5-9 [facility] Comment on above: Performed By: #### L BCL #### [facility] [address] [place] [address] Dr. Joe Shea SPEC GRAVITY 1.015 Normal 1.005-<=1.02 5 [facility] Comment on above: Performed By: #### L BCL #### [facility] [address] [place] [address] Dr. Joe Shea UA PROTEIN Negative Normal NEGATIVE/ TRACE [facility] Comment on above: Performed By: #### L BCL #### [facility] [address] [place] [address] Dr. Joe Shea UR MICRO IND INDICATED Normal [facility] Comment on above: Performed By: #### L BCL #### [facility] [address] [place] [address] Dr. Joe Shea Urobilinogen Qn (U) 2.0 {Pascual'U}/dL Abnormal 0.2 - 1. 0 [facility] Comment on above: Performed By: #### L BCLH #### [facility] [address] [place] [address] Dr. Joe Shea LIPASEon 10-28-2022 Lipase [Catalytic activity/Vol] 93.0 U/L Normal 73.0-393.0 [facility] Comment on above: Performed By: #### C MP, LIPA, NESTOR #### [facility] [address] [place] [address] Dr. Joe Shea URon 10-28-2022 , QUAL Negative Normal NEGATIVE [facility] Comment on above: Performed By: #### L BCLH #### [facility] [address] [place] [address] Dr. Joe Shea PROF 14(COMP METB)on 023 Albumin [Mass/Vol] 4.1 g/dL Normal 3.4-5.0 [facility] Comment on above: Performed By: #### C MP, LIPA, NESTOR #### [facility] [address] [place] [address] Dr. Joe Shea Albumin/Globulin [Mass ratio] 1.2 {ratio} Normal [facility] Comment on above: Performed By: #### C MP, LIPA, NESTOR #### [facility] [address] [place] [address] Dr. Joe Shea ALP [Catalytic activity/Vol] 60 U/L Normal 46-116 [facility] Comment on above: Performed By: #### C MP, LIPA, NESTOR #### [facility] [address] [place] [address] Dr. Joe Shea ALT [Catalytic activity/Vol] 22 U/L Normal 14-59 [facility] Comment on above: Performed By: #### C MP, LIPA, NESTOR #### [facility] [address] [place] [address] Dr. Joe Shea Anion gap [Moles/Vol] 10.2 mmol/L Normal [facility] Comment on above: Performed By: #### C MP, LIPA, NESTOR #### [facility] [address] [address] [address] Joe Shea AST [Catalytic activity/Vol] 14 U/L Critically low 15-37 [facility] Comment on above: Performed By: #### C MP, LIPA, NESTOR #### [facility] [address] [address] [address] Joe Shea Bilirubin [Mass/Vol] 0.5 mg/dL Normal 0.2-1.0 [facility] Comment on above: Performed By: #### C MP, LIPA, NESTOR #### [facility] [address] [address] [address] Joe Shea Calcium [Mass/Vol] 8.9 mg/dL Normal 8.5-10.1 [facility] Comment on above: Performed By: #### C MP, LIPA, NESTOR #### [facility] [address] [place] [address] Dr. Joe Shea Chloride [Moles/Vol] 103 mmol/L Normal 98-107 [facility] Comment on above: Performed By: #### C MP, LIPA, NESTOR #### [facility] [address] [address] [address] Joe Shea CO2 [Moles/Vol] 28.1 mmol/L Normal 21.0-32.0 [facility] Comment on above: Performed By: #### C MP, LIPA, NESTOR #### [facility] [address] [address] [address] Joe Shea Creatinine [Mass/Vol] 0.77 mg/dL Normal 0.55-1.02 [facility] Comment on above: Performed By: #### C MP, LIPA, NESTOR #### [facility] [address] [address] [address] Joe Shea EGFR-AF AZERBAIJANI >60 Normal >=60 [facility] Comment on above: Performed By: #### C MP, LIPA, NESTOR #### [facility] [address] [address] [address] Joe Shea EGFR-NON AF AZERBAIJANI >60 Normal >=60 [facility] Comment on above: Performed By: #### C MP, LIPA, NESTOR #### [facility] [address] [address] [address] Joe Shea Globulin (S) [Mass/Vol] 3.5 g/dL Normal [facility] Comment on above: Performed By: #### C MP, LIPA, NESTOR #### [facility] [address] [address] [address] Joe Shea Glucose [Mass/Vol] 85 mg/dL Normal 74-106 [facility] Comment on above: Performed By: #### C MP, LIPA, NESTOR #### [facility] [address] [address] [address] Joe Shea Potassium [Moles/Vol] 3.3 mmol/L Critically low 3.5-5.1 [facility] Comment on above: Performed By: #### C MP, LIPA, NESTOR #### [facility] [address] [place] [address] Dr. oJe Shea Protein [Mass/Vol] 7.6 g/dL Normal 6.4-8.2 [facility] Comment on above: Performed By: #### C MP LIPA, NESTOR #### [facility] [address] [place] [address] Dr. Joe Shea Sodium [Moles/Vol] 138 mmol/L Normal 136-145 [facility] Comment on above: Performed By: #### C MP, LIPA, NESTOR #### [facility] [address] [address] [address] Joe Shea Urea nitrogen [Mass/Vol] 6.0 mg/dL Critically low 7.0-18. 0 [facility] Comment on above: Performed By: #### C MP, LIPA, NESTOR #### [facility] [address] [place] [address] Dr. Joe Shea Urea nitrogen/Creatinine [Mass ratio] 7.8 mg/mg Normal [facility] Comment on above: Performed By: #### C MP, LIPA, NESTOR #### [facility] [address] [place] [address] Dr. Joe Shea URINE MICROSCOPIC ONLYon BACTERIA NONE SEEN Normal NONE SEEN [facility] Comment on above: Performed By: #### L BCLH #### [facility] [address] [place] [address] Dr. Joe Shea Bacteria identified Cx Nom (U) NOT INDICATED Normal [facility] Comment on above: Performed By: #### L BCLH #### [facility] [address] [place] [address] Dr. Joe Shea CAST NONE SEEN Normal NONE SEEN [facility] Comment on above: Performed By: #### L BCLH #### [facility] [address] [place] [address] Dr. Joe Shea Crystals LM Nom (Urine sed) NONE SEEN Normal NONE SEEN [facility] Comment on above: Performed By: #### L BCLH #### [facility] [address] [place] [address] Dr. Joe Shea Epithelial cells LM Ql (Urine sed) FEW Abnormal NONE SEEN /RARE [facility] Comment on above: Performed By: #### L BCLH #### [facility] [address] [place] [address] Dr. Joe Shea MUCOUS NONE SEEN Normal NONE SEEN [facility] Comment on above: Performed By: #### L BCLH #### [facility] [address] [place] [address] Dr. Joe Shea RBC NONE SEEN Abnormal 0-2 [facility] Comment on above: Performed By: #### L BCLH #### [facility] [address] [place] [address] Dr. Joe Shea WBC 0-2 Abnormal NONE SEEN [facility] Comment on above: Performed By: #### L BCLH #### [facility] [address] [place] [address] Dr. Joe Shea LACTOFERRIN FECAL QUANTon Lactoferrin, Fecal, Quant. <1.00 Normal 0.00-7.24 [facility] Comment on above: Result Comment: Re [...] (IBS). Performed By: #### D TRESA #### [facility] [address] [address] [address] Joe Shea CALPROTECTIN, FECALon 2022 Calprotectin, Fecal 31 ug/g Normal 0-120 [facility] Comment on above: Result Comment: Conc entration Interpretation Follow-Up <16 - 50 ug/g Normal None >50 -120 ug/g Borderline Re-evaluate in 4-6 weeks >120 ug/g Abnormal Repeat as clinically indicated Performed By: #### C MP, LIPA, NESTOR #### [facility] [address] [place] [address] Dr. Joe Shea BOWEL DISORDERS EVALUATION R ULE-OUT CASCon 09-25-2022 Antigliadin 8 units Normal 0-19 [facility] Comment on above: Result Comment: Nega tive 0 - 19 Weak Positive 20 - 30 Moderate to Strong Positive >30 . Performed By: #### C BC #### [facility] [address] [place] [address] Dr. Joe Shea Atypical pANCA Negative Normal Negative [facility] Comment on above: Performed By: #### C BC #### [facility] [address] [address] [address] Joe Shea Note: [place] continues Normal [facility] Comment on above: Performed By: #### C BC #### [facility] [address] [address] [address] Joe Shea Note: Comment Normal [facility] Comment on above: Result Comment: Sugg estive of irritable bowel syndrome (IBS). Careful evaluation of the patient's history, physical examination, and application of [place] III diagnostic criteria may help to rule in or rule out the diagnosis of IBS. Subsequent testing for Fecal Calprotectin (104591) may be recommended. If IBD is strongly suspected, subsequent testing with the Crohn's Disease Prognostic Profile (352204) that includes anti- glycan antibodies AMCA, ALCA, ACCA, and Zulema may aid in differential diagnosis. Performed By: #### C BC #### [facility] [address] [place] [address] Dr. Joe Shea Saccharomyces Cer. IgG <20.0 Normal 0.0-24.9 [facility] Comment on above: Result Comment: Nega tive <20.0 Equivocal 20.1 - 24.9 Positive >or= 25.0 Performed By: #### C BC #### [facility] [address] [place] [address] Dr. Joe Shea tTG/DGP SCR Negative Normal Negative [facility] Comment on above: Result Comment: Ef fective September 21, 2022 this profile will be made non-orderable due to non-availability of reagents for tTG/DGP Combo. No replacement number is available at this time. For further information, please contact your local [facility]. Performed By: #### C BC #### [facility] [address] [place] [address] Dr. Joe Shea CBC AUTO DIFFon 09-19-2022 BASO # 0.1 103/ul Normal 0.0-0.1 [facility] Comment on above: Performed By: #### D TRESA #### [facility] [address] [place] [address] Dr. Joe Shea Basophils/100 WBC (Bld) 0.9 % Normal 0.2-2.0 [facility] Comment on above: Performed By: #### D LUIS ARMANDOUL #### [facility] [address] [place] [address] Dr. Joe Shea EO # 0.2 103/ul Normal 0.0-0.7 [facility] Comment on above: Performed By: #### D LUIS ARMANDOUL #### [facility] [address] [place] [address] Dr. Joe Shea Eosinophils/100 WBC (Bld) 2.4 % Normal 0.9-7.0 [facility] Comment on above: Performed By: #### Althea GTZ #### [facility] [address] [place] [address] Dr. Joe Shea Erythrocyte distribution width (RBC) [Ratio] 13.2 % Normal 11.0-15.0 [facility] Comment on above: Performed By: #### Althea GTZ #### [facility] [address] [place] [address] Dr. Joe Shea Hematocrit (Bld) [Volume fraction] 38.3 % Normal 36.0-48.0 [facility] Comment on above: Performed By: #### Althea GTZ #### [facility] [address] [place] [address] Dr. Joe Shea Hemoglobin (Bld) [Mass/Vol] 12.3 g/dL Normal 12.0-16.0 [facility] Comment on above: Performed By: #### Althea GTZ #### [facility] [address] [place] [address] Dr. Joe Shea IG # 0.02 10e3/ul Normal 0.00-0.03 [facility] Comment on above: Performed By: #### Althea GTZ #### [facility] [address] [place] [address] Dr. Joe Shea IG % 0.3 % Normal 0.0-0.5 [facility] Comment on above: Performed By: #### Althea GTZ #### [facility] [address] [place] [address] Dr. Joe Shea LYMPH # 1.7 103/ul Normal 1.2-3.8 [facility] Comment on above: Performed By: #### Althea GTZ #### [facility] [address] [place] [address] Dr. Joe Shea Lymphocytes/100 WBC (Bld) 24.6 % Normal 20.5-60.0 [facility] Comment on above: Performed By: #### Althea GTZ #### [facility] [address] [place] [address] Dr. Joe Shea MANUAL DIFF REQ NO Normal [facility] Comment on above: Performed By: #### Althea GTZ #### [facility] [address] [address] [address] Joe Shea MCH (RBC) [Entitic mass] 28.1 pg Normal 26.7-34.0 [facility] Comment on above: Performed By: #### Althea GTZ #### [facility] [address] [place] [address] Dr. Joe Shea MCHC (RBC) [Mass/Vol] 32.1 g/dL Normal 29.9-35.2 [facility] Comment on above: Performed By: #### Althea GTZ #### [facility] [address] [place] [address] Dr. Joe Shea MCV (RBC) [Entitic vol] 87.6 fL Normal 81.0-99.0 [facility] Comment on above: Performed By: #### Althea GTZ #### [facility] [address] [place] [address] Dr. Joe Shea MONO # 0.4 103/ul Normal 0.3-0.8 [facility] Comment on above: Performed By: #### Althea GTZ #### [facility] [address] [place] [address] Dr. Joe Shea Monocytes/100 WBC (Bld) 5.5 % Normal 1.7-12.0 [facility] Comment on above: Performed By: #### Althea GTZ #### [facility] [address] [place] [address] Dr. Joe Shea NEUT # 4.7 103/ul Normal 1.4-6.5 [facility] Comment on above: Performed By: #### Althea GTZ #### [facility] [address] [place] [address] Dr. Joe Shea Neutrophils/100 WBC (Bld) 66.3 % Normal 43.0-75.0 [facility] Comment on above: Performed By: #### Althea GTZ #### [facility] [address] [place] [address] Dr. Joe Shea Platelet mean volume (Bld) [Entitic vol] 11.4 fL Normal 9.5-13.5 [facility] Comment on above: Performed By: #### Althea GTZ #### [facility] [address] [place] [address] Dr. Joe Shea PLT 275 103/ul Normal 150-450 [facility] Comment on above: Performed By: #### Althea GTZ #### [facility] [address] [place] [address] Dr. Joe Shea RBC 4.37 106/ul Normal 4.20-5.40 [facility] Comment on above: Performed By: #### Althea GTZ #### [facility] [address] [place] [address] Dr. Joe Shea WBC 7.0 103/ul Normal 4.0-11.0 [facility] Comment on above: Performed By: #### Althea GTZ #### [facility] [facility] [address] [place] [address] Dr. Joe Shea PROF 14(COMP METB)on 023 Albumin [Mass/Vol] 4.4 g/dL Normal 3.4-5.0 [facility] Comment on above: Performed By: #### L DAIN #### [facility] [address] [place] [address] Dr. Joe Shea Albumin/Globulin [Mass ratio] 1.4 {ratio} Normal [facility] Comment on above: Performed By: #### L BCLShyla #### [facility] [address] [place] [address] Dr. Joe Shea ALP [Catalytic activity/Vol] 51 U/L Normal 46-116 [facility] Comment on above: Performed By: #### L BCLShyla #### [facility] [address] [place] [address] Dr. Joe Shea ALT [Catalytic activity/Vol] 20 U/L Normal 14-59 [facility] Comment on above: Performed By: #### L DAIN #### [facility] [address] [place] [address] Dr. Joe Shea Anion gap [Moles/Vol] 11.7 mmol/L Normal Th [facility] Comment on above: Performed By: #### L BCLH #### [facility] [address] [place] [address] Dr. Joe Shea AST [Catalytic activity/Vol] 17 U/L Normal 15-37 [facility] Comment on above: Performed By: #### L BCLH #### [facility] [address] [address] [address] Joe Shea Bilirubin [Mass/Vol] 0.4 mg/dL Normal 0.2-1.0 [facility] Comment on above: Performed By: #### L BCLH #### [facility] [address] [place] [address] Dr. Joe Shea Calcium [Mass/Vol] 9.3 mg/dL Normal 8.5-10.1 [facility] Comment on above: Performed By: #### L BCLH #### [facility] [address] [place] [address] Dr. Joe Shea Chloride [Moles/Vol] 104 mmol/L Normal 98-107 [facility] Comment on above: Performed By: #### L BCLH #### [facility] [address] [place] [address] Dr. Joe Shea CO2 [Moles/Vol] 28.5 mmol/L Normal 21.0-32.0 [facility] Comment on above: Performed By: #### L BCLH #### [facility] [address] [place] [address] Dr. Joe Shea Creatinine [Mass/Vol] 0.55 mg/dL Normal 0.55-1.02 [facility] Comment on above: Performed By: #### L BCLH #### [facility] [address] [place] [address] Dr. Joe Shea EGFR-AF AZERBAIJANI >60 Normal >=60 [facility] Comment on above: Performed By: #### L BCLH #### [facility] [address] [place] [address] Dr. Joe Shea EGFR-NON AF AZERBAIJANI >60 Normal >=60 [facility] Comment on above: Performed By: #### L BCLH #### [facility] [address] [address] [address] Joe Shea Globulin (S) [Mass/Vol] 3.1 g/dL Normal [facility] Comment on above: Performed By: #### L BCLH #### [facility] [address] [address] [address] Joe Shea Glucose [Mass/Vol] 90 mg/dL Normal 74-106 [facility] Comment on above: Performed By: #### L BCLH #### [facility] [address] [address] [address] Joe Shea Potassium [Moles/Vol] 4.2 mmol/L Normal 3.5-5.1 [facility] Comment on above: Performed By: #### L BCLH #### [facility] [address] [address] [address] Joe Shea Protein [Mass/Vol] 7.5 g/dL Normal 6.4-8.2 [facility] Comment on above: Performed By: #### L BCLH #### [facility] [address] [address] [address] Joe Shea Sodium [Moles/Vol] 140 mmol/L Normal 136-145 [facility] Comment on above: Performed By: #### L BCLH #### [facility] [address] [address] [address] Joe Shea Urea nitrogen [Mass/Vol] 6.0 mg/dL Critically low 7.0-18. 0 [facility] Comment on above: Performed By: #### L BCLH #### [facility] [address] [address] [address] Joe Shea Urea nitrogen/Creatinine [Mass ratio] 10.9 mg/mg Normal [facility] Comment on above: Performed By: #### L BCLH #### [facility] [address] [address] [address] Joe Shea PROTIMEon 09-19-2022 INR Coag (PPP) [Relative time] 1.08 {INR} Normal [facility] Comment on above: Performed By: #### L BCL #### [facility] [address] [place] [address] Dr. Joe Shea INR GUIDELINES SEE BELOW Normal [facility] Comment on above: Result Comment: CHICA RED INR: 2.0 - 3.0 CONDITIONS NOT LISTED BELOW 2.5 - 3.5 FOR PROSTHETIC HEART VALVE REPLACEMENT 2.5 - 3.5 RECURRENT THROMBOSIS Performed By: #### L BARRY #### [facility] [address] [address] [address] Joe Shea PT Coag (PPP) [Time] 11.4 s Normal 9.0-11.6 [facility] Comment on above: Performed By: #### L BARRY #### [facility] [address] [place] [address] Dr. Joe Shea TSHon 09-19-2022 TSH 0.957 uIU/mL Normal 0.358-3.740 [facility] Comment on above: Performed By: #### L [facility] #### [facility] [address] [place] [address] Dr. Joe Shea Pre-Certification Formon Pre-Certification Form [id number] 269#1.00CD:127 Normal [facility] Consent for Procedure/Surger yon 07-23-2022 Consent for Procedure/Surgery [id number]#1.00CD:127 Normal [facility] Facesheeton 07-19-2022 Facesheet [id number] 71#1.00CD:127 Normal [facility] CBC AUTO DIFFon 07-06-2022 BASO # 0.1 103/ul Normal 0.0-0.1 [facility] Comment on above: Performed By: #### C MP, LIPA, NESTOR #### [facility] [address] [place] [address] Dr. Joe Shea Basophils/100 WBC (Bld) 0.8 % Normal 0.2-2.0 [facility] Comment on above: Performed By: #### C CALRYN DE JESUS AMY #### [facility] [address] [place] [address] Dr. Joe Shea EO # 0.4 103/ul Normal 0.0-0.7 [facility] Comment on above: Performed By: #### C CARLYN DE JESUS NESTOR #### [facility] [address] [place] [address] Dr. Joe Shea Eosinophils/100 WBC (Bld) 4.2 % Normal 0.9-7.0 [facility] Comment on above: Performed By: #### C CARLYN DE JESUS AMY #### [facility] [address] [place] [address] Dr. Joe Shea Erythrocyte distribution width (RBC) [Ratio] 13.5 % Normal 11.0-15.0 [facility] Comment on above: Performed By: #### C CARLYN DE JESUS NESTOR #### [facility] [address] [place] [address] Dr. Joe Shea Hematocrit (Bld) [Volume fraction] 36.8 % Normal 36.0-48.0 [facility] Comment on above: Performed By: #### C CARLYN DE JESUS AMY #### [facility] [address] [place] [address] Dr. Joe Shea Hemoglobin (Bld) [Mass/Vol] 12.2 g/dL Normal 12.0-16.0 [facility] Comment on above: Performed By: #### C CARLYN DE JESUS, NESTOR #### [facility] [address] [place] [address] Dr. Joe Shea IG # 0.02 10e3/ul Normal 0.00-0.03 [facility] Comment on above: Performed By: #### C CARLYN DE JESUS, NESTOR #### [facility] [address] [place] [address] Dr. Joe Shea IG % 0.2 % Normal 0.0-0.5 [facility] Comment on above: Performed By: #### C MP, LIPA, NESTOR #### [facility] [address] [address] [address] Joe Shea LYMPH # 2.1 103/ul Normal 1.2-3.8 [facility] Comment on above: Performed By: #### C MP, LIPA, NESTOR #### [facility] [address] [address] [address] Joe Shea Lymphocytes/100 WBC (Bld) 20.3 % Critically low 20.5-6 0.0 [facility] Comment on above: Performed By: #### C MP, LIPA, NESTOR #### [facility] [address] [place] [address] Dr. Joe Shea MANUAL DIFF REQ NO Normal [facility] Comment on above: Performed By: #### C MP, LIPA, NESTOR #### [facility] [address] [place] [address] Dr. Joe Shea MCH (RBC) [Entitic mass] 28.6 pg Normal 26.7-34.0 [facility] Comment on above: Performed By: #### C MP, LIPA, NESTOR #### [facility] [address] [place] [address] Dr. Joe Shea MCHC (RBC) [Mass/Vol] 33.2 g/dL Normal 29.9-35.2 [facility] Comment on above: Performed By: #### C MP, LIPA, NESTOR #### [facility] [address] [place] [address] Dr. Joe Shea MCV (RBC) [Entitic vol] 86.4 fL Normal 81.0-99.0 [facility] Comment on above: Performed By: #### C MP, LIPA, NESTOR #### [facility] [address] [place] [address] Dr. Joe Shea MONO # 0.6 103/ul Normal 0.3-0.8 [facility] Comment on above: Performed By: #### C MP, LIPA, NESTOR #### [facility] [address] [place] [address] Dr. Joe Shea Monocytes/100 WBC (Bld) 5.5 % Normal 1.7-12.0 [facility] Comment on above: Performed By: #### C CARLYN DE JESUS NESTOR #### [facility] [address] [place] [address] Dr. Joe Shea NEUT # 7.2 103/ul Critically high 1.4-6.5 [facility] Comment on above: Performed By: #### C CARLYN DE JESUS, NESTOR #### [facility] [address] [place] [address] Dr. Joe Shea Neutrophils/100 WBC (Bld) 69.0 % Normal 43.0-75.0 [facility] Comment on above: Performed By: #### C CARLYN DE JESUS NESTOR #### [facility] [address] [place] [address] Dr. Joe Shea Platelet mean volume (Bld) [Entitic vol] 10.8 fL Normal 9.5-13.5 [facility] Comment on above: Performed By: #### C CARLYN DE JESUS NESTOR #### [facility] [address] [place] [address] Dr. Joe Shea PLT 316 103/ul Normal 150-450 [facility] Comment on above: Performed By: #### C CARLYN DE JESUS, NESTOR #### [facility] [address] [place] [address] Dr. Joe Shea RBC 4.26 106/ul Normal 4.20-5.40 [facility] Comment on above: Performed By: #### C CARLYN DE JESUS, NESTOR #### [facility] [address] [place] [address] Dr. Joe Shea WBC 10.4 103/ul Normal 4.0-11.0 [facility] Comment on above: Performed By: #### C CARLYN DE JESUS, NESTOR #### [facility] [address] [place] [address] Dr. Joe Shea PREG QUANT HCGon 07-06-2022 HCG QUANT <1 Normal [facility] Comment on above: Performed By: #### C CARLYN DE JESUS, NESTOR #### [facility] [address] [place] [address] Dr. Joe Shea HCG RANGE SEE BELOW Normal [facility] Comment on above: Result Comment: 5-50 0.2-1 WEEK 50-500 1-2 WEEKS 100-5,000 2-3 WEEKS 500-10,000 3-4 WEEKS 1,000-50,000 4-5 WEEKS 10,000-100,000 5-6 WEEKS 15,000-200,000 6-8 WEEKS 10,000-100,000 2-3 MONTHS Performed By: #### C CARLYN DE JESUS AMY #### [facility] [address] [place], [place] [address] Dr. Joe Shea HEPATITIS C ANTIBODYon 06-26 Hep C Virus Ab <0.1 Normal 0.0-0.9 [facility] Comment on above: Result Comment: Nega [...] Hepatitis C Virus (HCV) RNA, Diagnosis, MEGAN (490792) and Hepatitis C Virus (HCV) Antibody with reflex to Quantitative Real-time PCR (780227). Performed By: #### L [facility] #### [facility] [address] [place], [place] [address] Dr. Joe Shea Covid-19 PCR (CVDTB)on 05-31 SARS-CoV-2 (COVID-19) RNA MEGAN+probe Ql (Unsp spec) Not detected Normal NOT DETECTED [facility] Comment on above: Result Comment: This test is not yet approved or cleared by the [place] FDA. When there are no FDA-approved or cleared tests available, and other criteria are met, FDA can make tests available under an emergency access mechanism called an Emergency Use Authorization (EUA). The EUA for this test is supported by the [place] of Health and Human Service's (HHS's) declaration [...] SARS-CoV-2. Performed By: #### C VDTB #### [facility] [address] [place] [address] Dr. Joe Shea HEP B SURFACE ANTIGEN SCREEN on 06-12-2022 HBsAg Screen Negative Normal Negative [facility] Comment on above: Performed By: #### D HEASMARICRUZ #### [facility] [address] [place] [address] Dr. Joe Shea HIV 1 AND 2 WITH REFLEXon HIV Screen 4th Generation wRfx Non-Reactive Normal Non Reactive [facility] Comment on above: Result Comment: HIV Negative HIV-1/HIV-2 antibodies and HIV-1 p24 antigen were NOT detected. There is no laboratory evidence of HIV infection. Performed By: #### C MP, LIPA, NESTOR #### [facility] [address] [place] [address] Dr. Joe Shea RPR QUANTon 06-12-2022 Rapid Plasma Reagin, Quant Non-Reactive Normal NonRea< 1:1 [facility] Comment on above: Result Comment: Plea se Note: This test does not meet current guidelines for screening and diagnosis of syphilis. This test is intended for following treatment response in patients being treated for syphilis infection. To screen for syphilis infection, a reflex cascade that includes both RPR and a treponema-specific assay should be utilized, such as Treponema pallidum (Syphilis) Screening [place] (022175) or Rapid Plasma Reagin (RPR) Test With Reflex to Quantitative RPR and Confirmatory Treponema pallidum Antibodies (011021). Performed By: #### C MP, LIPA, NESTOR #### [facility] [address] [place] [address] Dr. Joe Shea Physician Referralon 022 Physician Referral [id number]#1.00CD:127 Normal [facility] US PELVIS AND TRANSVAGon US PELVIS [...] ANGIE MEJIA Date: 2022-05-31 17:18 Normal [facility] AMYLASEon 05-23-2022 Amylase [Catalytic activity/Vol] 24 U/L Critically low 25-115 [facility] Comment on above: Performed By: #### C CARLYN DE JESUS AMY #### [facility] [address] [place] [address] Dr. Joe Shea CBC AUTO DIFFon 05-23-2022 Eosinophils/100 WBC (Bld) 1.5 % Normal 0.9-7.0 [facility] Comment on above: Performed By: #### L BCL #### [facility] [address] [place] [address] Dr. Joe Shea Erythrocyte distribution width (RBC) [Ratio] 13.5 % Normal 11.0-15.0 [facility] Comment on above: Performed By: #### L BCL #### [facility] [address] [place] [address] Dr. Joe Shea Hematocrit (Bld) [Volume fraction] 33.0 % Critically low 36.0-48.0 [facility] Comment on above: Performed By: #### L BCLH #### [facility] [address] [address] [address] Joe Shea Hemoglobin (Bld) [Mass/Vol] 10.7 g/dL Critically low 12.0-16.0 [facility] Comment on above: Performed By: #### L BCLH #### [facility] [address] [place] [address] Dr. Joe Shea LYMPH # 1.2 103/ul Normal 1.2-3.8 [facility] Comment on above: Performed By: #### L BCLH #### [facility] [address] [place] [address] Dr. Joe Shea Lymphocytes/100 WBC (Bld) 20.2 % Critically low 20.5-6 0.0 [facility] Comment on above: Performed By: #### L BCLH #### [facility] [address] [place] [address] Dr. Joe Shea MCH (RBC) [Entitic mass] 28.0 pg Normal 26.7-34.0 [facility] Comment on above: Performed By: #### L BCLH #### [facility] [address] [place] [address] Dr. Joe Shea MCHC (RBC) [Mass/Vol] 32.4 g/dL Normal 29.9-35.2 [facility] Comment on above: Performed By: #### L BCLH #### [facility] [address] [place] [address] Dr. Joe Shea Monocytes/100 WBC (Bld) 7.9 % Normal 1.7-12.0 [facility] Comment on above: Performed By: #### L BCLH #### [facility] [address] [place] [address] Dr. Joe Shea Neutrophils/100 WBC (Bld) 69.9 % Normal 43.0-75.0 [facility] Comment on above: Performed By: #### L BCLH #### [facility] [address] [place] [address] Dr. Joe Shea Platelet mean volume (Bld) [Entitic vol] 10.6 fL Normal 9.5-13.5 [facility] Comment on above: Performed By: #### L BCLH #### [facility] [address] [place] [address] Dr. Joe Shea PLT 233 103/ul Normal 150-450 [facility] Comment on above: Performed By: #### L BCLH #### [facility] [address] [place] [address] Dr. Joe Shea RBC 3.82 106/ul Critically low 4.20-5.40 [facility] Comment on above: Performed By: #### L BCLH #### [facility] [address] [place] [address] Dr. Joe Shea WBC 6.1 103/ul Normal 4.0-11.0 [facility] Comment on above: Performed By: #### L BCLH #### [facility] [address] [place] [address] Dr. Joe Shea BASO # 0.0 103/ul Normal 0.0-0.1 [facility] Comment on above: Performed By: #### L BCLH #### [facility] [address] [place] [address] Dr. Joe Shea Performed By: #### C CARLYN DE JESUS AMY #### [facility] [address] [place] [address] Dr. Joe Shea Basophils/100 WBC (Bld) 0.3 % Normal 0.2-2.0 [facility] Comment on above: Performed By: #### L BCLH #### [facility] [address] [place] [address] Dr. Joe Shea Performed By: #### C CARLYN DE JESUS, NESTOR #### [facility] [address] [place] [address] Dr. Joe Shea EO # 0.1 103/ul Normal 0.0-0.7 [facility] Comment on above: Performed By: #### L BCLH #### [facility] [address] [place] [address] Dr. Joe Shea Performed By: #### C MP LIPA, NESTOR #### [facility] [address] [place] [address] Dr. Joe Shea Eosinophils/100 WBC (Bld) 1.9 % Normal 0.9-7.0 [facility] Comment on above: Performed By: #### C MP, LIPA, NESTOR #### [facility] [address] [place] [address] Dr. Joe Shea Erythrocyte distribution width (RBC) [Ratio] 13.4 % Normal 11.0-15.0 [facility] Comment on above: Performed By: #### C MP LIPA, NESTOR #### [facility] [address] [place] [address] Dr. Joe Shea Hematocrit (Bld) [Volume fraction] 32.3 % Critically low 36.0-48.0 [facility] Comment on above: Performed By: #### C MP LIPA, NESTOR #### [facility] [address] [place] [address] Dr. Joe Shea Hemoglobin (Bld) [Mass/Vol] 10.6 g/dL Critically low 12.0-16.0 [facility] Comment on above: Performed By: #### C NEAL LIPA, NESTOR #### [facility] [address] [place] [address] Dr. Joe Shea IG # 0.01 10e3/ul Normal 0.00-0.03 [facility] Comment on above: Performed By: #### L BCL #### [facility] [address] [place] [address] Dr. Joe Shea Performed By: #### C MP LIPA, NESTOR #### [facility] [address] [place] [address] Dr. Joe Shea IG % 0.2 % Normal 0.0-0.5 [facility] Comment on above: Performed By: #### L BCLH #### [facility] [address] [place] [address] Dr. Joe Shea Performed By: #### C NEAL LIPA, NESTOR #### [facility] [address] [place] [address] Dr. Joe Shea LYMPH # 1.0 103/ul Critically low 1.2-3.8 [facility] Comment on above: Performed By: #### C MP LIPA, NESTOR #### [facility] [address] [place] [address] Dr. Joe Shea Lymphocytes/100 WBC (Bld) 16.6 % Critically low 20.5-6 0.0 [facility] Comment on above: Performed By: #### C MP, LIPA, NESTOR #### [facility] [address] [place] [address] Dr. Joe Shea MANUAL DIFF REQ NO Normal [facility] Comment on above: Performed By: #### L BCLH #### [facility] [address] [place] [address] Dr. Joe Shea Performed By: #### C MP LIPA, NESTOR #### [facility] [address] [place] [address] Dr. Joe Shea MCH (RBC) [Entitic mass] 28.3 pg Normal 26.7-34.0 [facility] Comment on above: Performed By: #### C MP LIPA, NESTOR #### [facility] [address] [place] [address] Dr. Joe Shea MCHC (RBC) [Mass/Vol] 32.8 g/dL Normal 29.9-35.2 [facility] Comment on above: Performed By: #### C MP LIPA, NESTOR #### [facility] [address] [place] [address] Dr. Joe Shea MCV (RBC) [Entitic vol] 86.4 fL Normal 81.0-99.0 [facility] Comment on above: Performed By: #### L BCLH #### [facility] [address] [place] [address] Dr. Joe Shea Performed By: #### C MP, LIPA, NESTOR #### [facility] [address] [place] [address] Dr. Joe Shea MONO # 0.5 103/ul Normal 0.3-0.8 [facility] Comment on above: Performed By: #### L BCL #### [facility] [address] [place] [address] Dr. Joe Shea Performed By: #### C CARLYN DE JESUS, NESTOR #### [facility] [address] [place] [address] Dr. Joe Shea Monocytes/100 WBC (Bld) 9.1 % Normal 1.7-12.0 [facility] Comment on above: Performed By: #### C NEAL LIPA, NESTOR #### [facility] [address] [place] [address] Dr. Joe Shea NEUT # 4.3 103/ul Normal 1.4-6.5 [facility] Comment on above: Performed By: #### L BCL #### [facility] [address] [place] [address] Dr. Joe Shea Performed By: #### C HUGO DE JESUSA, NESTOR #### [facility] [address] [place] [address] Dr. Joe Shea Neutrophils/100 WBC (Bld) 71.9 % Normal 43.0-75.0 [facility] Comment on above: Performed By: #### C HUGO DE JESUSA, NESTOR #### [facility] [address] [place] [address] Dr. Joe Shea Platelet mean volume (Bld) [Entitic vol] 11.0 fL Normal 9.5-13.5 [facility] Comment on above: Performed By: #### C NEAL LIPA, NESTOR #### [facility] [address] [place] [address] Dr. Joe Shea PLT 224 103/ul Normal 150-450 [facility] Comment on above: Performed By: #### C HUGO DE JESUSA, NESTOR #### [facility] [address] [place] [address] Dr. Joe Shea RBC 3.74 106/ul Critically low 4.20-5.40 [facility] Comment on above: Performed By: #### C NEAL LIPA, NESTOR #### [facility] [address] [place] [address] Dr. Joe Shea WBC 5.9 103/ul Normal 4.0-11.0 [facility] Comment on above: Performed By: #### C CARLYN DE JESUS AMY #### [facility] [address] [place] [address] Dr. Joe MOORE URINE PROFILEon 2 Bilirubin Ql (U) Negative Normal NEGATIVE [facility] Comment on above: Performed By: #### L BCLH #### [facility] [address] [place] [address] Dr. Jeo Shea Clarity (U) CLEAR Normal CLEAR [facility] Comment on above: Performed By: #### L BCLH #### [facility] [address] [place] [address] Dr. Joe Shea Color (U) LT. YELLOW Normal YELLOW [facility] Comment on above: Performed By: #### L BCL #### [facility] [address] [place] [address] Dr. Joe YUNG A micrscopic examination will be performed if indicated. Normal [facility] Comment on above: Performed By: #### L BCL #### [facility] [address] [place] [address] Dr. Joe Shea Glucose Ql (U) Negative Normal NEGATIVE [facility] Comment on above: Performed By: #### L BCLH #### [facility] [address] [place] [address] Dr. Joe Shea Hemoglobin Ql (U) Negative Normal NEGATIVE [facility] Comment on above: Performed By: #### L BCLH #### [facility] [address] [place] [address] Dr. Joe Shea Ketones Ql (U) Negative Normal NEGATIVE [facility] Comment on above: Performed By: #### L BCLH #### [facility] [address] [place] [address] Dr. Joe Shea LEUKOCYTES Negative Normal NEGATIVE [facility] Comment on above: Performed By: #### L BCLH #### [facility] [address] [place] [address] Dr. Joe Shea Nitrite Ql (U) Negative Normal NEGATIVE [facility] Comment on above: Performed By: #### L BCL #### [facility] [address] [place] [address] Dr. Joe Shea pH (U) 5.5 [pH] Normal 5-9 [facility] Comment on above: Performed By: #### L BCL #### [facility] [address] [address] [address] Joe Shea SPEC GRAVITY 1.020 Normal 1.005-<=1.02 5 [facility] Comment on above: Performed By: #### L BCL #### [facility] [address] [place] [address] Dr. Joe Shea UA PROTEIN Negative Normal NEGATIVE/ TRACE [facility] Comment on above: Performed By: #### L BCL #### [facility] [address] [place] [address] Dr. Joe Shea UR MICRO IND NOT INDICATED Normal [facility] Comment on above: Performed By: #### L BARRY #### [facility] [address] [place] [address] Dr. Joe Shea Urobilinogen Qn (U) 0.2 {Pascual'U}/dL Normal 0.2 - 1. 0 [facility] Comment on above: Performed By: #### L BCL #### [facility] [address] [place] [address] Dr. Joe Shea LIPASEon 05-23-2022 Lipase [Catalytic activity/Vol] 63.0 U/L Critically low 73.0-393.0 [facility] Comment on above: Performed By: #### C MP, LIPA, NESTOR #### [facility] [address] [place] [address] Dr. Joe Shea URon 05-23-2022 , QUAL Negative Normal NEGATIVE [facility] Comment on above: Performed By: #### C #### [facility] [address] [place] [address] Dr. Joe Shea PROF 14(COMP METB)on 022 Albumin [Mass/Vol] 3.7 g/dL Normal 3.4-5.0 [facility] Comment on above: Performed By: #### C CARLYN DE JESUS, NESTOR #### [facility] [address] [place] [address] Dr. Joe Shea Albumin/Globulin [Mass ratio] 1.4 {ratio} Normal [facility] Comment on above: Performed By: #### C CARLYN DE JESUS, NESTOR #### [facility] [address] [place] [address] Dr. Joe Shea ALP [Catalytic activity/Vol] 44 U/L Critically low 46-116 [facility] Comment on above: Performed By: #### C CARLYN DE JESUS, NESTOR #### [facility] [address] [place] [address] Dr. Joe Shea ALT [Catalytic activity/Vol] 24 U/L Normal 14-59 [facility] Comment on above: Performed By: #### C CARLYN DE JESUS, NESTOR #### [facility] [address] [place] [address] Dr. Joe Shea Anion gap [Moles/Vol] 9.1 mmol/L Normal [facility] Comment on above: Performed By: #### C CARLYN DE JESUS, NESTOR #### [facility] [address] [place] [address] Dr. Joe Shea AST [Catalytic activity/Vol] 18 U/L Normal 15-37 [facility] Comment on above: Performed By: #### C CARLYN DE JESUS, NESTOR #### [facility] [address] [place] [address] Dr. Joe Shea Bilirubin [Mass/Vol] 0.2 mg/dL Normal 0.2-1.0 [facility] Comment on above: Performed By: #### C CARLYN DE JESUS, NESTOR #### [facility] [address] [place] [address] Dr. Joe Shea Calcium [Mass/Vol] 8.3 mg/dL Critically low 8.5-10.1 [facility] Comment on above: Performed By: #### C CARLYN DE JESUS, NESTOR #### [facility] [address] [address] [address] Joe Shea Chloride [Moles/Vol] 105 mmol/L Normal 98-107 [facility] Comment on above: Performed By: #### C MP, LIPA, NESTOR #### [facility] [address] [address] [address] Joe Shea CO2 [Moles/Vol] 29.7 mmol/L Normal 21.0-32.0 [facility] Comment on above: Performed By: #### C MP, LIPA, NESTOR #### [facility] [address] [address] [address] Joe Shea Creatinine [Mass/Vol] 0.61 mg/dL Normal 0.55-1.02 [facility] Comment on above: Performed By: #### C MP, LIPA, NESTOR #### [facility] [address] [place] [address] Dr. Joe Shea EGFR-AF AZERBAIJANI >60 Normal >=60 [facility] Comment on above: Performed By: #### C MP, LIPA, NESTOR #### [facility] [address] [place] [address] Dr. Joe Shea EGFR-NON AF AZERBAIJANI >60 Normal >=60 [facility] Comment on above: Performed By: #### C MP, LIPA, NESTOR #### [facility] [address] [place] [address] Dr. Joe Shea Globulin (S) [Mass/Vol] 2.6 g/dL Normal [facility] Comment on above: Performed By: #### C MP, LIPA, NESTOR #### [facility] [address] [place] [address] Dr. Joe Shea Glucose [Mass/Vol] 92 mg/dL Normal 74-106 [facility] Comment on above: Performed By: #### C MP, LIPA, NESTOR #### [facility] [address] [address] [address] Joe Shea Potassium [Moles/Vol] 3.8 mmol/L Normal 3.5-5.1 [facility] Comment on above: Performed By: #### C MP, LIPA, NESTOR #### [facility] [address] [address] [address] Joe Shea Protein [Mass/Vol] 6.3 g/dL Critically low 6.4-8.2 Th e [facility] Comment on above: Performed By: #### C MP, LIPA, NESTOR #### [facility] [address] [address] [address] Joe Shea Sodium [Moles/Vol] 140 mmol/L Normal 136-145 [facility] Comment on above: Performed By: #### C MP LIPA, NESTOR #### [facility] [address] [address] [address] Joe Shea Urea nitrogen [Mass/Vol] 9.0 mg/dL Normal 7.0-18.0 [facility] Comment on above: Performed By: #### C NEAL LIPA, NESTOR #### [facility] [address] [address] [address] Joe Shea Urea nitrogen/Creatinine [Mass ratio] 14.8 mg/mg Normal [facility] Comment on above: Performed By: #### C NEAL LIPA, NESTOR #### [facility] [address] [place] [address] Dr. Joe Shea US SINGLE QUAD RT [...] SHIRLEY PATEL Date: 2022-05-23 08:29 Normal [facility] AMYLASEon 05-22-2022 Amylase [Catalytic activity/Vol] 50 U/L Normal 25-115 [facility] Comment on above: Performed By: #### A MY, CMP, LIPA #### [facility] [address] [place] [address] Dr. Joe Shea CBC AUTO DIFFon 05-22-2022 BASO # 0.1 103/ul Normal 0.0-0.1 [facility] Comment on above: Performed By: #### C MP, LIPA, NESTOR #### [facility] [address] [place] [address] Dr. Joe Shea Basophils/100 WBC (Bld) 0.3 % Normal 0.2-2.0 [facility] Comment on above: Performed By: #### C MP, LIPA, NESTOR #### [facility] [address] [place] [address] Dr. Jeo Shea EO # 0.0 103/ul Normal 0.0-0.7 [facility] Comment on above: Performed By: #### C MP, LIPA, NESTOR #### [facility] [address] [place] [address] Dr. Joe Shea Eosinophils/100 WBC (Bld) 0.2 % Critically low 0.9-7. 0 [facility] Comment on above: Performed By: #### C MP, LIPA, NESTOR #### [facility] [address] [place] [address] Dr. Joe Shea Erythrocyte distribution width (RBC) [Ratio] 13.3 % Normal 11.0-15.0 [facility] Comment on above: Performed By: #### C MP, LIPA, NESTOR #### [facility] [address] [place] [address] Dr. Joe Shea Hematocrit (Bld) [Volume fraction] 39.0 % Normal 36.0-48.0 [facility] Comment on above: Performed By: #### C MP, LIPA, NESTOR #### [facility] [address] [address] [address] Joe Shea Hemoglobin (Bld) [Mass/Vol] 12.7 g/dL Normal 12.0-16.0 [facility] Comment on above: Performed By: #### C MP, LIPA, NESTOR #### [facility] [address] [place] [address] Dr. Joe Shea IG # 0.05 10e3/ul Critically high 0.00-0.03 [facility] Comment on above: Performed By: #### C MP, LIPA, NESTOR #### [facility] [address] [place] [address] Dr. Joe Shea IG % 0.3 % Normal 0.0-0.5 [facility] Comment on above: Performed By: #### C MP, LIPA, NESTOR #### [facility] [address] [place] [address] Dr. Joe Shea LYMPH # 0.8 103/ul Critically low 1.2-3.8 [facility] Comment on above: Performed By: #### C MP, LIPA, NESTOR #### [facility] [address] [place] [address] Dr. Joe Shea Lymphocytes/100 WBC (Bld) 4.4 % Critically low 20.5-6 0.0 [facility] Comment on above: Performed By: #### C MP, LIPA, NESTOR #### [facility] [address] [place] [address] Dr. Joe Shea MANUAL DIFF REQ NO Normal [facility] Comment on above: Performed By: #### C MP, LIPA, NESTOR #### [facility] [address] [place] [address] Dr. Joe Shea MCH (RBC) [Entitic mass] 28.1 pg Normal 26.7-34.0 [facility] Comment on above: Performed By: #### C MP, LIPA, NESTOR #### [facility] [address] [place] [address] Dr. Joe Shea MCHC (RBC) [Mass/Vol] 32.6 g/dL Normal 29.9-35.2 [facility] Comment on above: Performed By: #### C NEAL LIPA, NESTOR #### [facility] [address] [place] [address] Dr. Joe Shea MCV (RBC) [Entitic vol] 86.3 fL Normal 81.0-99.0 [facility] Comment on above: Performed By: #### C NEAL LIPA, NESTOR #### [facility] [address] [place] [address] Dr. Joe Shea MONO # 0.4 103/ul Normal 0.3-0.8 [facility] Comment on above: Performed By: #### C NEAL LIPA, NESTOR #### [facility] [address] [place] [address] Dr. Joe Shea Monocytes/100 WBC (Bld) 2.2 % Normal 1.7-12.0 [facility] Comment on above: Performed By: #### C NEAL LIPA, NESTOR #### [facility] [address] [place] [address] Dr. Joe Shea NEUT # 16.7 103/ul Critically high 1.4-6.5 [facility] Comment on above: Performed By: #### C NEAL LIPA, NESTOR #### [facility] [address] [place] [address] Dr. Joe Shea Neutrophils/100 WBC (Bld) 92.6 % Critically high 43.0- 75.0 [facility] Comment on above: Performed By: #### C MP LIPA, NESTOR #### [facility] [address] [place] [address] Dr. Joe Shea Platelet mean volume (Bld) [Entitic vol] 11.0 fL Normal 9.5-13.5 [facility] Comment on above: Performed By: #### C MP LIPA, NESTOR #### [facility] [address] [place] [address] Dr. Joe Shea PLT 323 103/ul Normal 150-450 [facility] Comment on above: Performed By: #### C NEAL LIPA, NESTOR #### [facility] [address] [place] [address] Dr. Joe Shea RBC 4.52 106/ul Normal 4.20-5.40 [facility] Comment on above: Performed By: #### C CARLYN DE JESUS AMY #### [facility] [address] [place] [address] Dr. Joe Seha WBC 18.0 103/ul Critically high 4.0-11.0 [facility] Comment on above: Performed By: #### C CARLYN DE JESUS AMY #### [facility] [address] [place] [address] Dr. Joe Shea ER URINE PROFILEon 2 Bilirubin Ql (U) Negative Normal NEGATIVE [facility] Comment on above: Performed By: #### Althea GTZ #### [facility] [address] [place] [address] Dr. Joe Shea Clarity (U) CLEAR Normal CLEAR [facility] Comment on above: Performed By: #### Althea GTZ #### [facility] [address] [place] [address] Dr. Joe Shea Color (U) YELLOW Normal YELLOW [facility] Comment on above: Performed By: #### Althea GTZ #### [facility] [address] [place] [address] Dr. Joe YUNG A micrscopic examination will be performed if indicated. Normal [facility] Comment on above: Performed By: #### Althea GTZ #### [facility] [address] [place] [address] Dr. Joe Shea Glucose Ql (U) Negative Normal NEGATIVE [facility] Comment on above: Performed By: #### Althea DURÁNUL #### [facility] [address] [place] [address] Dr. Joe Shea Hemoglobin Ql (U) Negative Normal NEGATIVE [facility] Comment on above: Performed By: #### Althea DURÁNUL #### [facility] [address] [place] [address] Dr. Joe Shea Ketones Ql (U) 15 mg/dl Abnormal NEGATIVE [facility] Comment on above: Performed By: #### Althea GTZ #### [facility] [address] [place] [address] Dr. Joe Shea LEUKOCYTES Negative Normal NEGATIVE [facility] Comment on above: Performed By: #### Althea GTZ #### [facility] [address] [place] [address] Dr. Joe Shea Nitrite Ql (U) Negative Normal NEGATIVE [facility] Comment on above: Performed By: #### Althea GTZ #### [facility] [address] [place] [address] Dr. Joe Shea pH (U) 5.5 [pH] Normal 5-9 [facility] Comment on above: Performed By: #### Althea GTZ #### [facility] [address] [place] [address] Dr. Joe Shea SPEC GRAVITY >=1.030 Abnormal 1.005-<=1.02 5 [facility] Comment on above: Performed By: #### Althea GTZ #### [facility] [address] [place] [address] Dr. Joe Shea UA PROTEIN Negative Normal NEGATIVE/ TRACE [facility] Comment on above: Performed By: #### Althea GTZ #### [facility] [address] [place] [address] Dr. Joe Shea UR MICRO IND NOT INDICATED Normal [facility] Comment on above: Performed By: #### Althea GTZ #### [facility] [address] [place] [address] Dr. Joe Shea Urobilinogen Qn (U) 1.0 {Pascual'U}/dL Normal 0.2 - 1. 0 [facility] Comment on above: Performed By: #### Althea GTZ #### [facility] [address] [place] [address] Dr. Joe Shea LACTATE/LACTIC ACIDon 2021 Lactate [Moles/Vol] 1.0 mmol/L Normal 0.4-1.9 [facility] Comment on above: Performed By: #### Darius BC #### [facility] [address] [place] [address] Dr. Joe Shea LIPASEon 05-22-2022 Lipase [Catalytic activity/Vol] 205.0 U/L Normal 73.0-393.0 [facility] Comment on above: Performed By: #### A MY, CMP, LIPA #### [facility] [address] [place], [place] [address] Dr. Joe Shea MRI BRAIN WO CONon [...] ANGIE LO Date: 2022-05-22 16:17 Normal [facility] URon 05-22-2022 , QUAL Negative Normal NEGATIVE [facility] Comment on above: Performed By: #### Althea GTZ #### [facility] [address] [address] [address] Joe Shea PROF 14(COMP METB)on 022 Albumin [Mass/Vol] 4.5 g/dL Normal 3.4-5.0 [facility] Comment on above: Performed By: #### Althea GTZ #### [facility] [address] [address] [address] Joe Shea Albumin/Globulin [Mass ratio] 1.4 {ratio} Normal [facility] Comment on above: Performed By: #### Althea GTZ #### [facility] [address] [address] [address] Joe Shea ALP [Catalytic activity/Vol] 60 U/L Normal 46-116 [facility] Comment on above: Performed By: #### Althea GTZ #### [facility] [address] [address] [address] Joe Shea ALT [Catalytic activity/Vol] 17 U/L Normal 14-59 [facility] Comment on above: Performed By: #### Althea GTZ #### [facility] [address] [address] [address] Joe Shea Anion gap [Moles/Vol] 10.9 mmol/L Normal Th [facility] Comment on above: Performed By: #### Althea GTZ #### [facility] [address] [address] [address] Joe Shea AST [Catalytic activity/Vol] 19 U/L Normal 15-37 [facility] Comment on above: Performed By: #### Althea GTZ #### [facility] [address] [address] [address] Joe Shea Bilirubin [Mass/Vol] 0.8 mg/dL Normal 0.2-1.0 [facility] Comment on above: Performed By: #### Althea GTZ #### [facility] [address] [address] [address] Joe Shea Calcium [Mass/Vol] 9.0 mg/dL Normal 8.5-10.1 [facility] Comment on above: Performed By: #### Althea GTZ #### [facility] [address] [address] [address] Joe Shea Chloride [Moles/Vol] 102 mmol/L Normal 98-107 [facility] Comment on above: Performed By: #### Althea GTZ #### [facility] [address] [address] [address] Joe Shea CO2 [Moles/Vol] 28.7 mmol/L Normal 21.0-32.0 [facility] Comment on above: Performed By: #### Althea GTZ #### [facility] [address] [address] [address] Joe Shea Creatinine [Mass/Vol] 0.73 mg/dL Normal 0.55-1.02 [facility] Comment on above: Performed By: #### Althea GTZ #### [facility] [address] [address] [address] Joe Shea EGFR-AF AZERBAIJANI >60 Normal >=60 [facility] Comment on above: Performed By: #### Althea GTZ #### [facility] [address] [address] [address] Joe Shea EGFR-NON AF AZERBAIJANI >60 Normal >=60 [facility] Comment on above: Performed By: #### Althea GTZ #### [facility] [address] [address] [address] Joe Shea Globulin (S) [Mass/Vol] 3.2 g/dL Normal [facility] Comment on above: Performed By: #### Althea GTZ #### [facility] [address] [address] [address] Joe Shea Glucose [Mass/Vol] 113 mg/dL Critically high 74-106 [facility] Comment on above: Performed By: #### Althea GTZ #### [facility] [address] [address] [address] Joe Shea Potassium [Moles/Vol] 3.6 mmol/L Normal 3.5-5.1 [facility] Comment on above: Performed By: #### Althea GTZ #### [facility] [address] [address] [address] Joe Shea Protein [Mass/Vol] 7.7 g/dL Normal 6.4-8.2 [facility] Comment on above: Performed By: #### Althea GTZ #### [facility] [address] [address] [address] Joe Shea Sodium [Moles/Vol] 138 mmol/L Normal 136-145 [facility] Comment on above: Performed By: #### Althea GTZ #### [facility] [address] [address] [address] Joe Shea Urea nitrogen [Mass/Vol] 9.0 mg/dL Normal 7.0-18.0 [facility] Comment on above: Performed By: #### D TRESA #### [facility] [address] [place], [place] [address] Dr. Joe Shea Urea nitrogen/Creatinine [Mass ratio] 12.3 mg/mg Normal [facility] Comment on above: Performed By: #### D TRESA #### [facility] [address] [place], [place] [address] Dr. Joe Shea XR CHEST 2 Von [...] COTE Date: 2022-05-22 02:56 Normal [facility] PROGESTERONEon 05-08-2022 Progesterone 18.1 ng/mL Normal [facility] Comment on above: Result Comment: Foll icular phase 0.1 - 0.9 Luteal phase 1.8 - 23.9 Ovulation phase 0.1 - 12.0 First trimester 11.0 - 44.3 Second trimester 25.4 - 83.3 Third trimester 58.7 - 214.0 Postmenopausal 0.0 - 0.1 Performed By: #### C BC #### [facility] [address] [place], [place] [address] Dr. Joe Shea DHEA SERUMon 04-12-2022 Dehydroepiandrosterone (DHEA) 577 ng/dL Normal [facility] Comment on above: Result Comment: Age [...] 89 Performed By: #### C BC #### [facility] [address] [place], [place] [address] Dr. Joe Shea PROGESTERONEon 04-10-2022 Progesterone 16.0 ng/mL Normal [facility] Comment on above: Result Comment: Foll icular phase 0.1 - 0.9 Luteal phase 1.8 - 23.9 Ovulation phase 0.1 - 12.0 First trimester 11.0 - 44.3 Second trimester 25.4 - 83.3 Third trimester 58.7 - 214.0 Postmenopausal 0.0 - 0.1 Performed By: #### Althea GTZ #### [facility] [address] [place] [address] Dr. Joe Shea DHEA-SULFATEon 04-06-2022 DHEA-Sulfate 241.0 ug/dL Normal 110.0-431.7 [facility] Comment on above: Performed By: #### Althea GTZ #### [facility] [address] [place] [address] Dr. Joe Shea FSHon 04-06-2022 FSH 6.6 mIU/mL Normal [facility] Comment on above: Result Comment: Adul t Female: Follicular phase 3.5 - 12.5 Ovulation phase 4.7 - 21.5 Luteal phase 1.7 - 7.7 Postmenopausal 25.8 - 134.8 Performed By: #### Althea GTZ #### [facility] [address] [place] [address] Dr. Joe Shea LUTEINIZING HORMONE (LH)on 1 LH 19.8 mIU/mL Normal [facility] Comment on above: Result Comment: Adul t Female: Follicular phase 2.4 - 12.6 Ovulation phase 14.0 - 95.6 Luteal phase 1.0 - 11.4 Postmenopausal 7.7 - 58.5 Performed By: #### L BCLH #### [facility] [address] [place] [address] Dr. Joe Shea CBC AUTO DIFFon 04-05-2022 BASO # 0.1 103/ul Normal 0.0-0.1 [facility] Comment on above: Performed By: #### C BC #### [facility] [address] [place] [address] Dr. Joe Shea Basophils/100 WBC (Bld) 0.9 % Normal 0.2-2.0 [facility] Comment on above: Performed By: #### C BC #### [facility] [address] [place] [address] Dr. Joe Shea EO # 0.2 103/ul Normal 0.0-0.7 [facility] Comment on above: Performed By: #### C BC #### [facility] [address] [place] [address] Dr. Joe Shea Eosinophils/100 WBC (Bld) 2.6 % Normal 0.9-7.0 [facility] Comment on above: Performed By: #### C BC #### [facility] [address] [place] [address] Dr. Joe Shea Erythrocyte distribution width (RBC) [Ratio] 13.1 % Normal 11.0-15.0 [facility] Comment on above: Performed By: #### C BC #### [facility] [address] [place] [address] Dr. Joe Shea Hematocrit (Bld) [Volume fraction] 38.2 % Normal 36.0-48.0 [facility] Comment on above: Performed By: #### C BC #### [facility] [address] [place] [address] Dr. Joe Shea Hemoglobin (Bld) [Mass/Vol] 12.3 g/dL Normal 12.0-16.0 [facility] Comment on above: Performed By: #### C BC #### [facility] [address] [place] [address] Dr. Joe Shea IG # 0.01 10e3/ul Normal 0.00-0.03 [facility] Comment on above: Performed By: #### C BC #### [facility] [address] [place] [address] Dr. Joe Shea IG % 0.2 % Normal 0.0-0.5 [facility] Comment on above: Performed By: #### C BC #### [facility] [address] [place] [address] Dr. Joe Shea LYMPH # 1.7 103/ul Normal 1.2-3.8 [facility] Comment on above: Performed By: #### C BC #### [facility] [address] [place] [address] Dr. Joe Shea Lymphocytes/100 WBC (Bld) 29.2 % Normal 20.5-60.0 [facility] Comment on above: Performed By: #### C BC #### [facility] [address] [place] [address] Dr. Joe Shea MANUAL DIFF REQ NO Normal [facility] Comment on above: Performed By: #### C BC #### [facility] [address] [place] [address] Dr. Joe Shea MCH (RBC) [Entitic mass] 28.4 pg Normal 26.7-34.0 [facility] Comment on above: Performed By: #### C BC #### [facility] [address] [place] [address] Dr. Joe Shea MCHC (RBC) [Mass/Vol] 32.2 g/dL Normal 29.9-35.2 [facility] Comment on above: Performed By: #### C BC #### [facility] [address] [place] [address] Dr. Joe Shea MCV (RBC) [Entitic vol] 88.2 fL Normal 81.0-99.0 [facility] Comment on above: Performed By: #### C BC #### [facility] [address] [place] [address] Dr. Joe Shea MONO # 0.5 103/ul Normal 0.3-0.8 [facility] Comment on above: Performed By: #### C BC #### [facility] [address] [place] [address] Dr. Joe Shea Monocytes/100 WBC (Bld) 8.2 % Normal 1.7-12.0 [facility] Comment on above: Performed By: #### C BC #### [facility] [address] [place] [address] Dr. Joe Shea NEUT # 3.4 103/ul Normal 1.4-6.5 [facility] Comment on above: Performed By: #### C BC #### [facility] [address] [place] [address] Dr. Joe Shea Neutrophils/100 WBC (Bld) 58.9 % Normal 43.0-75.0 [facility] Comment on above: Performed By: #### C BC #### [facility] [address] [place] [address] Dr. Joe Shea Platelet mean volume (Bld) [Entitic vol] 11.5 fL Normal 9.5-13.5 [facility] Comment on above: Performed By: #### C BC #### [facility] [address] [place] [address] Dr. Joe Shea PLT 233 103/ul Normal 150-450 [facility] Comment on above: Performed By: #### C BC #### [facility] [address] [place] [address] Dr. Joe Shea RBC 4.33 106/ul Normal 4.20-5.40 [facility] Comment on above: Performed By: #### C BC #### [facility] [address] [place] [address] Dr. Joe Shea WBC 5.8 103/ul Normal 4.0-11.0 [facility] Comment on above: Performed By: #### C BC #### [facility] [address] [place] [address] Dr. Joe Shea GLYCOHEMOGLOBIN A1Con 2021 ADA RECOMMENDATION SEE BELOW Normal [facility] Comment on above: Result Comment: ADA RECOMMENDED LIMIT 4.0 - 6.0 ADA THERAPEUTIC TARGET < 7.0 ACTION SUGGESTED > 7.0 Performed By: #### C CARLNY DE JESUS AMY #### [facility] [address] [place] [address] Dr. Joe Shea Glucose [Mass/Vol] 105 mg/dL Normal [facility] Comment on above: Performed By: #### C CARLYN DE JESUS AMY #### [facility] [address] [place] [address] Dr. Joe Shea HbA1c (Bld) [Mass fraction] 5.3 % Normal 4.5-6.2 [facility] Comment on above: Performed By: #### C CARLYN DE JESUS AMY #### [facility] [address] [place] [address] Dr. Joe Shea TSHon 04-05-2022 TSH 0.609 uIU/mL Normal 0.358-3.740 [facility] Comment on above: Performed By: #### C BC #### [facility] [address] [place] [address] Dr. Joe Shea US PELVIS AND TRANSVAGon [...] MEJIA Date: 2022-04-05 17:23 Normal [facility] AMYLASEon 03-10-2022 Amylase [Catalytic activity/Vol] 64 U/L Normal 25-115 [facility] Comment on above: Performed By: #### C BC #### [facility] [address] [place] [address] Dr. Joe Shea CBC AUTO DIFFon 03-10-2022 BASO # 0.1 103/ul Normal 0.0-0.1 [facility] Comment on above: Performed By: #### C BC #### [facility] [address] [place] [address] Dr. Joe Shea Basophils/100 WBC (Bld) 0.6 % Normal 0.2-2.0 [facility] Comment on above: Performed By: #### C BC #### [facility] [address] [place] [address] Dr. Joe Shea EO # 0.3 103/ul Normal 0.0-0.7 [facility] Comment on above: Performed By: #### C BC #### [facility] [address] [place] [address] Dr. Joe Shea Eosinophils/100 WBC (Bld) 1.7 % Normal 0.9-7.0 [facility] Comment on above: Performed By: #### C BC #### [facility] [address] [place] [address] Dr. Joe Shea Erythrocyte distribution width (RBC) [Ratio] 13.1 % Normal 11.0-15.0 [facility] Comment on above: Performed By: #### C BC #### [facility] [address] [place] [address] Dr. Joe Shea Hematocrit (Bld) [Volume fraction] 37.9 % Normal 36.0-48.0 [facility] Comment on above: Performed By: #### C BC #### [facility] [address] [place] [address] Dr. Joe Shea Hemoglobin (Bld) [Mass/Vol] 12.2 g/dL Normal 12.0-16.0 [facility] Comment on above: Performed By: #### C BC #### [facility] [address] [place] [address] Dr. Joe Shea IG # 0.05 10e3/ul Critically high 0.00-0.03 [facility] Comment on above: Performed By: #### C BC #### [facility] [address] [place] [address] Dr. Joe Shea IG % 0.3 % Normal 0.0-0.5 [facility] Comment on above: Performed By: #### C BC #### [facility] [address] [place] [address] Dr. Joe Shea LYMPH # 4.7 103/ul Critically high 1.2-3.8 [facility] Comment on above: Performed By: #### C BC #### [facility] [address] [place] [address] Dr. Joe Shea Lymphocytes/100 WBC (Bld) 28.3 % Normal 20.5-60.0 [facility] Comment on above: Performed By: #### C BC #### [facility] [address] [place] [address] Dr. Joe Shea MANUAL DIFF REQ NO Normal [facility] Comment on above: Performed By: #### C BC #### [facility] [address] [place] [address] Dr. Joe Shea MCH (RBC) [Entitic mass] 27.9 pg Normal 26.7-34.0 [facility] Comment on above: Performed By: #### C BC #### [facility] [address] [place] [address] Dr. Joe Shea MCHC (RBC) [Mass/Vol] 32.2 g/dL Normal 29.9-35.2 [facility] Comment on above: Performed By: #### C BC #### [facility] [address] [place] [address] Dr. Joe Shea MCV (RBC) [Entitic vol] 86.5 fL Normal 81.0-99.0 [facility] Comment on above: Performed By: #### C BC #### [facility] [address] [place] [address] Dr. Joe Shea MONO # 0.9 103/ul Critically high 0.3-0.8 [facility] Comment on above: Performed By: #### C BC #### [facility] [address] [place] [address] Dr. Joe Shea Monocytes/100 WBC (Bld) 5.5 % Normal 1.7-12.0 [facility] Comment on above: Performed By: #### C BC #### [facility] [address] [place] [address] Dr. Joe Shea NEUT # 10.5 103/ul Critically high 1.4-6.5 [facility] Comment on above: Performed By: #### C BC #### [facility] [address] [place] [address] Dr. Joe Shea Neutrophils/100 WBC (Bld) 63.6 % Normal 43.0-75.0 [facility] Comment on above: Performed By: #### C BC #### [facility] [address] [place] [address] Dr. Joe Shea Platelet mean volume (Bld) [Entitic vol] 11.1 fL Normal 9.5-13.5 [facility] Comment on above: Performed By: #### C BC #### [facility] [address] [place] [address] Dr. Joe Shea PLT 428 103/ul Normal 150-450 [facility] Comment on above: Performed By: #### C BC #### [facility] [address] [place] [address] Dr. Joe Shea RBC 4.38 106/ul Normal 4.20-5.40 [facility] Comment on above: Performed By: #### C BC #### [facility] [address] [place] [address] Dr. Joe Shea WBC 16.6 103/ul Critically high 4.0-11.0 [facility] Comment on above: Performed By: #### C BC #### [facility] [address] [place] [address] ABD/PELV W CONon [...] STRANGE Date: 2022-03-10 16:59 Normal [facility] LIPASEon 03-10-2022 Lipase [Catalytic activity/Vol] 81.0 U/L Normal 73.0-393.0 [facility] Comment on above: Performed By: #### C BC #### [facility] [address] [place] [address] Dr. Joe Shea LIVER PROFILEon 03-10-2022 Albumin [Mass/Vol] 4.2 g/dL Normal 3.4-5.0 [facility] Comment on above: Performed By: #### C BC #### [facility] [address] [place] [address] Dr. Joe Shea Albumin/Globulin [Mass ratio] 1.4 {ratio} Normal [facility] Comment on above: Performed By: #### C BC #### [facility] [address] [place] [address] Dr. Joe Shea ALP [Catalytic activity/Vol] 50 U/L Normal 46-116 [facility] Comment on above: Performed By: #### C BC #### [facility] [address] [place] [address] Dr. Joe Shea ALT [Catalytic activity/Vol] 14 U/L Normal 14-59 [facility] Comment on above: Performed By: #### C BC #### [facility] [address] [place] [address] Dr. Joe Shea AST [Catalytic activity/Vol] 13 U/L Critically low 15-37 [facility] Comment on above: Performed By: #### C BC #### [facility] [address] [place] [address] Dr. Joe Shea BILI, CONJUGATED 0.1 mg/dL Normal 0.0-0.2 [facility] Comment on above: Performed By: #### C BC #### [facility] [address] [place] [address] Dr. Joe Shea Bilirubin [Mass/Vol] 0.3 mg/dL Normal 0.2-1.0 [facility] Comment on above: Performed By: #### C BC #### [facility] [address] [address] [address] Joe Shea Globulin (S) [Mass/Vol] 3.1 g/dL Normal [facility] Comment on above: Performed By: #### C BC #### [facility] [address] [address] [address] Joe Shea Protein [Mass/Vol] 7.3 g/dL Normal 6.4-8.2 [facility] Comment on above: Performed By: #### C BC #### [facility] [address] [place] [address] Dr. Joe Shea PREG HCG QUALon 03-10-2022 , QUAL Negative Normal NEGATIVE [facility] Comment on above: Performed By: #### L BCLH #### [facility] [address] [place] [address] Dr. Joe Shea PROF CHEM 8 (BAS METB)on Anion gap [Moles/Vol] 17.6 mmol/L Normal [facility] Comment on above: Performed By: #### C MP, LIPA, NESTOR #### [facility] [address] [address] [address] Joe Shea Calcium [Mass/Vol] 9.0 mg/dL Normal 8.5-10.1 [facility] Comment on above: Performed By: #### C MP, LIPA, NESTOR #### [facility] [address] [place] [address] Dr. Joe Shea Chloride [Moles/Vol] 102 mmol/L Normal 98-107 [facility] Comment on above: Performed By: #### C MP, LIPA, NESTOR #### [facility] [address] [address] [address] Joe Shea CO2 [Moles/Vol] 23.4 mmol/L Normal 21.0-32.0 [facility] Comment on above: Performed By: #### C MP, LIPA, NESTOR #### [facility] [address] [address] [address] Joe Shea Creatinine [Mass/Vol] 0.84 mg/dL Normal 0.55-1.02 [facility] Comment on above: Performed By: #### C MP, LIPA, NESTOR #### [facility] [address] [address] [address] Joe Shea EGFR-AF AZERBAIJANI >60 Normal >=60 [facility] Comment on above: Performed By: #### C MP, LIPA, NESTOR #### [facility] [address] [address] [address] Joe Shea EGFR-NON AF AZERBAIJANI >60 Normal >=60 [facility] Comment on above: Performed By: #### C MP, LIPA, NESTRO #### [facility] [address] [address] [address] Joe Shea Glucose [Mass/Vol] 149 mg/dL Critically high 74-106 [facility] Comment on above: Performed By: #### C MP, LIPA, NESTOR #### [facility] [address] [address] [address] Joe Shea Potassium [Moles/Vol] 2.9 mmol/L Critically low 3.5-5.1 [facility] Comment on above: Performed By: #### C MP, LIPA, NESTOR #### [facility] [address] [address] [address] Joe Shea Sodium [Moles/Vol] 139 mmol/L Normal 136-145 [facility] Comment on above: Performed By: #### C MP, LIPA, NESTOR #### [facility] [address] [address] [address] Joe Shea Urea nitrogen [Mass/Vol] 11.0 mg/dL Normal 7.0-18.0 [facility] Comment on above: Performed By: #### C MP, LIPA, NESTOR #### [facility] [address] [address] [address] Joe Shea Urea nitrogen/Creatinine [Mass ratio] 13.1 mg/mg Normal [facility] Comment on above: Performed By: #### C CARLYN DE JESUS AMY #### [facility] [address] [address] [address] Joe Shea XR CSPINE 2_3 VIEWSon [...] by: ANGIE MEJIA Date: 2022-01-18 08:03 Normal [facility] C BP Strepon 12-23-2019 C BP Strep This is strictly a screening test for Strep Group A( Streptococcus pyogenes). No other pathogens will be noted. Final Backup plate negative for Group A Streptococus Resulted at [facility] Normal [facility] Comment on above: Performed By: #### B P #### [facility] (DEFAULT) [address] [place] [address] [facility] [address] [place] [address] Ambulatory Patient Education on 12-21-2019 Ambulatory Patient [...] a child 2 years or older. ? [phone] [employer]. [address] [place] [address], [place] [address]. All rights reserved. This information is not intended as a substitute for professional medical care. Always follow your healthcare professional's instructions. Strep today is Negative. Will send for culture to [facility] and notify if it returns positive. Take medication as prescribed. Discontinue for a negative strep culture. Discard and replace toothbrush after taking antibiotics for at least 24 hours. May use uipt-aev-deohlgk Tylenol and Motrin for pain relief. May use of fqrs-ngn-gbjdjbn Chloraseptic throat spray, lozenges, cool or warm [...] tabs, 0 Refill(s), 12/26/19 14:42:00 EDT, Pharmacy: [id number] [place] Trackon 12-21-2019 BVO Red Swab # 1 [facility] Comment on above: Performed By: #### O [facility] Tracking Order #### [facility] [address] [place] [address] Urgent Care Office/Clinic No sabiha 12-21-2019 Urgent [...] POC: negative. Swab will be sent to [facility] for culture. We will call if positive and treat appropriately. Additional Vitals Body Mass Index Measured: 18.43 kg/m2 Peripheral Pulse Rate: 111 bpm High Assessment/Plan 1. Sore throat Strep today is Negative. Will send for culture to [facility] and notify if it returns positive. Take medication as prescribed. Discontinue for a negative strep culture. Discard and replace toothbrush after taking antibiotics for at least 24 hours. May use ztvb-lpf-azjtwvz Tylenol and Motrin for pain relief. May use of zogz-xio-orruvxu Chloraseptic throat spray, lozenges, cool or warm [...] tabs, 0 Refill(s), 12/26/19 14:42:00 EDT, Pharmacy: [id number] Physician Comments Cent[facility] criteria [...] by Rosa Fitch 12/21/19 15:01 EDT Normal [facility] Vital Signs Date Time Vital Sign Value Performing Clinician Facility 03-28-2023 10:16-0400 Body height 157.48 cm Referring Provider Unknown [id number] [address] [place] Work Phone: 03-28-2023 10:16-0400 Body mass index (BMI) [Ratio] 23.78 kg/m2 Referring Provider Unknown [id number] [address] [place] Work Phone: 03-28-2023 10:16-0400 Body surface area Derived from formula 1.59 m2 Referring Provider Unknown [id number] [address] [place] Work Phone: 03-28-2023 10:16-0400 Body weight 58.97 kg Referring Provider Unknown [id number] [address] [place] Work Phone: 03-28-2023 10:16-0400 Diastolic blood pressure 65 mm[Hg] Referring Provider Unknown [id number] [address] [place] Work Phone: 03-28-2023 10:16-0400 Heart rate 96 /min Referring Provider Unknown [id number] [address] [place] Work Phone: 03-28-2023 10:16-0400 Systolic blood pressure 107 mm[Hg] Referring Provider Unknown [id number] [address] [place] Work Phone: 03-28-2023 10:16-0400 0 [address] Unknown [id number] [address] [place] Work Phone: Comment on above: [employer] 02-14-2023 09:15-0400 Body height 154.94 cm Filippo Larson Other [facility] Other 02-14-2023 09:15-0400 Body mass index (BMI) [Ratio] 21.73 kg/m2 Filippo Larson Other [facility] Other 02-14-2023 09:15-0400 Body weight 52.16 kg Filippo Larson Other [facility] Other 02-14-2023 09:15-0400 Diastolic blood pressure 68 mm[Hg] Filippo Larson Other [facility] Other 02-14-2023 09:15-0400 Systolic blood pressure 96 mm[Hg] Filippo Larson Other [facility] Other 07-17-2022 14:26-0500 Blood Pressure Location Mayito OBANDOL [facility] [place] 07-17-2022 14:26-0500 Diastolic blood pressure 70 mm[Hg] Mayito OBANDOL [facility] 07-17-2022 14:26-0500 Heart rate 70 /min Mayito LIM [facility] [place] 07-17-2022 14:26-0500 Respiratory rate 16 /min Mayito OBANDOL [facility] [place] 07-17-2022 14:26-0500 Systolic blood pressure 102 mm[Hg] Mayito LIM [facility] 03-09-2020 20:24-0400 BP Diastolic 61 mm[Hg] PHYSICIAN NO [facility] 03-09-2020 20:24-0400 BP Systolic 117 mm[Hg] PHYSICIAN NO [facility] 03-09-2020 20:24-0400 Pulse (Heart Rate) 85 /min PHYSICIAN NO [facility] 03-09-2020 20:24-0400 Pulse Oximetry 100 % PHYSICIAN NO [facility] 03-09-2020 20:24-0400 Respiratory Rate 24 /min PHYSICIAN NO [facility] 03-09-2020 18:49-0400 BMI (Body Mass Index) 20 kg/m2 PHYSICIAN NO [facility] 03-09-2020 18:49-0400 Body Temperature 98.7 [degF] PHYSICIAN NO [facility] 03-09-2020 18:49-0400 Body weight 49.7 kg PHYSICIAN NO [facility] 03-09-2020 18:49-0400 Height 157.48 cm PHYSICIAN NO [facility] Encounters Encounter Date Encounter Type Care Provider Facility Start: 07-09-2023 End: 07-09-2023 ambulatory CECIL QUINTANA Not Available Start: 07-08-2023 End: 07-08-2023 ambulatory LYLY SMITH [facility] Start: 07-08-2023 End: 07-08-2023 Office outpatient visit 15 minutes Paulie Cervantes MD Work Phone: [facility]- [facility] at [facility] Comment on above: 34 weeks gestation o f (Primary Dx); Poor growth affecting management of mother in third trimester, fetus 1 of multiple gestation; Dichorionic diamniotic twin in third trimester; Anxiety during Start: 07-04-2023 Orders Only Freddy Christensen r[facility]- [facility] at [facility] Comment on above: Dichorionic diamniot ic [...] new/estab patient 80 min Referring Provider Unknown [id number] [address] [place] Work Phone: Start: 03-28-2023 Patient encounter procedure Referring Provider Unknown [id number] [address] [place] Work Phone: Start: 03-28-2023 ambulatory Ramakrishnanando Schwarz Facility :[facility] Start: 02-14-2023 End: 02-14-2023 ambulatory Filippo Larson Other [employer] Other Start: 02-14-2023 Office outpatient vi sit 15 minutes Filippo Larson [facility] Start: 11-28-2022 End: 11-28-[address] [...] laboratory examination DR CECIL QUINTANA . [facility] Start: 07-06-2022 End: 07-07-[address] CECIL QUINTANA . Facility:[facility] Start: 07-06-2022 End: 07-07-2022 Encounter for preprocedural laboratory examination DR CECIL QUINTANA . Facility:[facility] Start: 06-15-2022 End: 06-16-[address] CECIL QUINTANA . Facility:[facility] Start: 06-11-2022 End: 06-12-2022 ambulatory JUANJOSE VIRAMONTES Facility:[facility] Start: 06-08-2022 ambulatory SUKI CONDE PROVIDER Facility:[facility] Start: 05-31-2022 End: 06-01-2022 ambulatory [...] Emergency department patient visit PHYSICIAN KIMI RO [facility] Start: 04-27-2014 End: 04-27-2014 Telephone encounter Noa Dimas MD Work Phone: Reproductive Endocrinology Infertility Procedures Date Procedure Procedure Detail Performing Clinician Start: 10-25-2020 Microscopic observation [Identifier] in Cervix by Cyto stain Freddy Hughes [employer]CTION[employer]ENCY DIRECTOR Colonoscopy Mayito OBANDOL Dilation and curettage Temo OBANDOL Dilation and curettage Temo douglass NILL Esophagogastroduodenoscopy M ichdemar NILL Excision of cyst of ovary Mi real NILL Laparoscopy Mayito NILL Plan of Treatment Date Care Activity Detail Author Start: 05-28-2032 DTaP,Tdap and Td Vaccines (8 - Td or Tdap) DTaP,Tdap and Td Vaccines (8 - Td or Tdap) [facility] Start: 07-04-2024 End: 07-04-2024 US MFM with or without consult US MFM with or without consult Imaging Routine Dichorionic diamniotic twin in third trimester Poor growth affecting management of mother in third trimester, fetus 1 of multiple gestation Expected: 07/04/2024 (Approximate), Expires: 07/04/2024 [facility] [employer] Work Phone: Comment on above: Expected: 07/04/2024 (Approximate), Expires: 07/04/2024 Start: 06-03-2024 Adult BMI Screening Adult BMI Screen ing [facility] Start: 06-03-2024 Tobacco Screening Tobacco Screening [facility] Start: 2024 Screening for Chlamy carroll trachomatis Chlamydia Screening [facility] Start: 10-26-2023 Screening for malign ant neoplasm of cervix Pap Smear [facility] Start: 07-17-2023 End: 07-17-2023 Patient encounter procedure 07/17/2023 9:30 AM EST Appointment [facility] [address] [place] [id number] [facility] Start: 07-08-2023 End: 07-08-2023 Telemedicine consultation with patient 07/08/2023 1:00 PM EST Telemedicine [facility]- [facility] at [facility] [address] [place] [id number] Paulie Cervantes MD [address] [facility] [place] [address] Lyly Smith MD [address] [facility] 1[address] [place] [address] [facility] Start: 03-01-2023 Influenza vaccination Influenza Vacc ine [facility] Start: 03-01-2021 Influenza vaccination INFLUENZ A (Season Ended) [facility] Start: 02-28-2020 PAP TESTING PAP TESTING [facility] Start: 2018 Urine microalbumin profile DTAP,TDAP,TD (1 - Tdap) [facility] Start: 2017 Adult BMI Follow Up Plan Adult BMI Follow Up Plan [facility] Start: 2017 CHLAMYDIA SCREENING (18-24) CHLAMYDIA SCREENING (18-24) [facility] Start: 2017 GC (GONORRHEA) SCREE KRUNAL (18-24) GC (GONORRHEA) SCREENING (18-24) [facility] Start: 2017 HEPATITIS C SCREENING HEPATITIS [facility] Start: 2017 HIV SCREENING HIV SCREENING [facility] Start: 2011 Adult depression screening assessment DEPRESSION SCREENING [facility] Start: 2010 HPV VACCINE (1 - 2-d ose series) HPV VACCINE (1 - 2-dose series) [facility] Patient Education Anxiety (ED) [facility] Patient referral [facility] Immunizations Immunization Date Immunization Notes Care Provider Fa cility 01-05-2022 influenza virus vaccine, unspecified formulation [facility] NEGATED: Highlighted row has not occurred!07-17-2022 influenza virus vaccine, unspecified formulation Mayito LIM [facility] [place] Payers Date Payer Category Payer Unknown 2013 Unknown [facility] [employer] [place] PPO [employer] [id number] 2013-2014 PPO [id number] 1999 Unknown [id number] 2.16.840.1.148303.3.579.2.727 1999 Unknown [id number] 2.16.840.1.475582.3.579.2.727 1999 Unknown [id number] 2.16.840.1.921706.3.579.2.593 1999 Unknown [id number] 2.16.840.1.753323.3.579.2.593 1999 Unknown [id number] 2.16.840.1.436264.3.579.2.593 1999 Unknown [id number] 2.16.840.1.423101.3.579.2.593 1999 Unknown [id number] 2.16.840.1.049151.3.579.2.593 1999 Unknown [id number] 2.16.840.1.608762.3.579.2.593 1999 Unknown [id number] 2.16.840.1.658661.3.579.2.593 1999 Unknown [id number] 2.16.840.1.994237.3.579.2.593 1999 Unknown [id number] 2.16.840.1.730768.3.579.2.593 1999 Unknown [id number] 2.16.840.1.087905.3.579.2.593 1999 Unknown [id number] 2.16.840.1.459032.3.579.2.593 1999 Unknown [id number] 2.16.840.1.211498.3.579.2.593 1999 Unknown [id number] 2.16.840.1.053593.3.579.2.593 1999 Unknown [id number] 2.16.840.1.531691.3.579.2.593 1999 Unknown [id number] 2.16.840.1.097775.3.579.2.593 1999 Unknown [id number] 2.16.840.1.776690.3.579.2.593 1999 Unknown [id number] 2.16.840.1.494119.3.579.2.593 1999 Unknown [id number] 2.16.840.1.597946.3.579.2.593 1999 Unknown [id number] 2.16.840.1.503594.3.579.2.593 1999 Unknown [id number] 2.16.840.1.490694.3.579.2.593 1999 Unknown [id number] 2.16.840.1.793014.3.579.2.593 1999 Unknown [id number] 2.16.840.1.136853.3.579.2.356 1999 Unknown [id number] 2.16.840.1.316040.3.579.2.1259 1999 Unknown [id number] 2.16.840.1.237865.3.579.2.1259 1999 Unknown [id number] 2.16.840.1.037668.3.579.2.1259 1999 Unknown [id number] 2.16.840.1.489328.3.579.2.1259 1999 Unknown [id number] 2.16.840.1.659064.3.579.2.1286 1999 Unknown [id number] 2.16.840.1.755598.3.579.2.1286 1959 Unknown [id number] 1959 Unknown [id number] 1959 Unknown [id number] Self-pay Self Pay [id number] Unknown Self Pay [id number] Social History Date Type Detail Facility Start: 03-09-2020 Tobacco smoking status NHIS Smoker (finding) [facility] Start: 1999 Sex Assigned At Female [facility] Start: 04-12-2014 Tobacco smoking status NHIS Never smoker [facility] Start: 04-12-2014 End: 04-01-2023 Tobacco use and exposure Never used [facility] Start: 04-12-2014 Alcohol intake 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 Start: 06-03-2023 Alcohol intake Ex-drinker (finding) [facility] Start: 10-25-2020 Alcohol Comment RARELY [facility] Start: 11-22-2022 [facility] NEGATED: Highlighted row Denies History of domestic violence Denies History of domestic violence [id number] [address] [place] Work Phone: Goals Date Patient Goal Desired Activity /State Functional Status Date Assessment Result Facility 07-17-2022 Functional Status N/A [facility] Clinical Notes 04-27-2014 to 07-08-2023 Lyly Smith MD - 07/08/2023 1:00 PM EST Note Date & Type Note Facility 07-08-2023 History of Present illness Narrative Video Visit via Real-time Synchronous Audiovisual Provider Location: [facility] AT [address] [id number] Patient Location: Patient Location [employer] Consultant [employer] Designer: None Video Visit Consent Statement: I discussed [...] that there are some limitations compared to [id number] evaluations. We elected to proceed. REASON FOR [...] and B, status post 2nd opinion at [facility] Anxiety/ depression, managed on citalopram 40 [...] and B, status post 2nd opinion at [facility] COUNSELING We reviewed signs symptoms of [...] Serial Doppler studies for growth restriction at [facility] office, Doppler studies remain normal, repeat on 07/17/2023 Delivery scheduled at 37 weeks' gestation with primary OB at local hospital, primary due to male presentation of twin a, breech Patient is scheduled for repeat umbilical artery Doppler assessment in 2 weeks, no future clinic visits with [facility] Thank you for allowing me to participate in Shanon Louise care. If there are any questions, please do not hesitate to call me. Lyly Smith MD Maternal- Medicine [facility] [address] [facility] [address] [place] [address] documented in this encounter [employer] 02-14-2023 Evaluation note Encounter Date Diagnosis Assessment [...] needed. Retrun visit here in three months. [employer] Other 01-20-2023 NoteChief Complaint consultation for epigastric [...] completed several years ago at [facility] was normal. History of Present Illness 22 yo female with h/o bipolar disorder, anxiety, migraines, referred for intermittent epigastric and LUQ pain, burning, at times sharp/stabbing; occasional N/V; + boating; no food triggers, occurs celia without eating; no hematemesis or melena; no hematochezia, some constipation, improved with stool softeners; had normal EGD and colonoscopy at [facility] in 2016; abdominal operations significant for laparoscopy [...] more than 30 da (more content not included)...[facility]Result Comment: Electronically Signed By: RAPHAEL MACIAS, Mayito Matthews\Date and Time Signed: 07/20/22 14:58 [id number] Note OPERATIVE NOTE OPERATION DATE: 07/10/2021 PROCEDURE: Diagnostic laparoscopy with chromopertubation. PREOPERATIVE DIAGNOSIS: Pelvic pain. POSTOPERATIVE DIAGNOSIS: Pelvic pain, including small endometrial implant posterior cul-de-sac, as well as possible blunted tube on the patient's left side. ANESTHESIA: General. SURGEON: Cecil Quintana D.O. SURGICAL ELASTIC KNITTER HAND FRAME: ISAURO Mccoy URINE OUTPUT: Yellow and clear. BLOOD LOSS: 5 mL. FINDINGS: Slightly blunted tube on the left side, endometriosis posterior cul-de-sac, otherwise normal appearing uterus, tubes and ovaries. Normal appearing appendix. Some adhesions of the bowel to the pelvic and abdominal side wall on the patient's right side. Normal appearing liver. No evidence of Xbpv-Bjcd-Opgsuo syndrome. PROCEDURE: The patient was taken back [...] [facility]OP Note OPERATION DATE: 07/10/2022 PROCEDURE: Diagnostic laparoscopy with chromopertubation. PREOPERATIVE DIAGNOSIS: Pelvic pain, suspected endometriosis, fallopian tube disorder. POSTOPERATIVE DIAGNOSIS: Pelvic pain, suspected endometriosis, fallopian tube disorder, including mild endometriosis, bilateral patent fallopian tubes, small bowel adhesion to the pelvic side wall. ANESTHESIA: General. SURGEON: Cecil Quintana D.O. SURGICAL ELASTIC KNITTER HAND FRAME: ISAURO Mccoy URINE OUTPUT: Yellow and clear. BLOOD LOSS: 5 mL. ADDENDUM: Please note that chromopertubation was performed after methylene blue was placed through the HUMI manipulator. Spillage of methylene blue could be seen from both tubes.[facility] [id number] Instructions* Patient Instructions* [facility] - 04/27/2014 4:49 PM EDT [phone] - Patient mother would like to speak with a nurse concerning medications that her daughter is taking. [facility] Narrative - Reported * the patient is seen at the request of Dr. Gonzales at [facility] for consultation regarding second opinion for placental hemorrhage; EDC 08/15/2023 * FC MA [id number] [address] [place] Work Phone: chism complaint Narrative - Reported* the patient is seen at the request of Dr. Gonzales at [facility] for consultation regarding second opinion for placental hemorrhage; EDC 08/15/2023 * FC MA [id number] [address] [place] Work Phone: evaluation + Plan note No data available for this section [facility] [place] Evaluation note* Diagnosis Dichorionic diamniotic twin in third trimester- Primary Poor growth affecting management of mother in third trimester, fetus 1 of multiple gestation [facility] Diagnosis 34 weeks gestation of - Primary Poor growth affecting management of mother in third trimester, fetus 1 of multiple gestation Dichorionic diamniotic twin in third trimester Anxiety during [facility] N[facility]ative - Reported* Type Description Date Medical History Anxiety Medical History GERD (gastroesophageal reflux di sease) Medical History bipolar Surgical History LAPAROSCOPY-times 2 2013 [facility] & CT scans 12/2022 [facility] Other Hospital Discharge instructions No data available for this section [facility] InstructionsNot on filedocumented in this encounter [facility]Not on filedocumented [facility] No data available for [...] fetus 1 of multiple gestation Procedures US [facility] with or without consult Amadeo Heaton MD [address] [facility] [address] [place] [address] [facility] Maternal Med [address] [place] [address] Referral ID Status Reason Start Date Expiration Date V isits Requested Visits Authorized [id number] Pending Review 07/04/2023 07/03/2024 1 1 Additional Source Comments INFORMATION SOURCE (unrecogn ized section and content) DATE CREATED AUTHOR 02/04/2020 [facility] DATE CREATED AUTHOR AUTHOR'S ORGANIZ ATION 08/16/2022 [facility] DATE CREATED AUTHOR AUTHOR'S ORGANIZ ATION 12/07/2022 [facility] DATE CREATED AUTHOR AUTHOR'S ORGANIZ ATION 04/06/2023 [facility] DATE CREATED AUTHOR AUTHOR'S ORGANIZ ATION 07/10/2023 [facility] EPIC DATE CREATED AUTHOR AUTHOR'S FRANK ATION 07/12/2023 [facility] Source Comments (unrecognize d section and content) In the event this informatio n is protected by the Federal Confidentiality of Alcohol and Drug Abuse Patient Records regulations: The Federal rules restrict any use of the information to criminally investigate or prosecute any alcohol or drug abuse patient.[facility] Patient Care team informatio n (unrecognized section and content) Highway Engineer Relationship Specialty Start Date End Date [place], [place] [address] PCP - General Family Medicine 10/25/20 Highway Engineer Relationship Specialty Start Date End Date No Pcp, [place] [address] PCP - General Family Medicine 10/25/20 REASON [...] BE BASED ON THE PRIMARY CLINICAL RECORDS. [employer] [facility]. provides no warranty or guarantee of the accuracy or completeness of information in this document.
== END 2023-07-16 12:00 | disposition home or self-care (01) ==
LOC: US 07:13 → FBC 16:37
PROVIDERS: PCP Family Medicine; Visit Provider Physician Assistant
DX: O30.043 Twin pregnancy, dichorionic/diamniotic, third trimester (principal); O36.5990 Maternal care for other known or suspected poor fetal growth, unspecified trimester, not applicable or unspecified; Z3A.35 35 weeks gestation of pregnancy; O99.013 Anemia complicating pregnancy, third trimester; D50.9 Iron deficiency anemia, unspecified
CPT/HCPCS: 76810; 76818; 87081

== ENCOUNTER 2023-07-16 21:01 | Outpatient (REF) | payer OTHER, SELFPAY ==
--- OUTSIDE RECORDS SUMMARY | 2023-07-16 21:07 | XMS_ITS | CCD ---
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 NO FAMILY, PHYSICIAN Primary [...] SHIRLEY Thapa Consulting Unavailable AMAYA, DR SUKI Knog Primary Care Unavailable EUSEBIO ., MARYURI Consulting Unavailable ANGIE, HARMAN Consulting Unavailable ANGIE, HARMAN Admitting Unavailable HARMAN ADAMS Attending Unavailable AMAYA, DR SUKI Kong Primary Care Unavailable ANA OCTE Consulting Unavailable AMAYA, DR SUKI Kong Primary [...] DR GATICA Attending Unavailable ELIZABETH ., DR GTAICA Consulting Unavailable ELIZABETH ., DR GATICA Admitting [...] Unavailable AMAYA, DR SUKI Kong Attending Unavailable [place], DR ANGIE Arce Consulting Unavailable REQUEST, DR NONE LISTED Primary Care Unavaila caitie CONDE, DR SUKI Kong Consulting Unavailable Filippo Larson Unavailable [phone] Unknown, Referring Provider Unavailable Unav ailable [...] Medication Allergies] Propensity to adverse reactions (disorder) [facility] Repository Medications Current Medications Medication [...] 07/17/22 Status: Ordered take 2 tablets by [facility] once daily at bedtime Elavil [...] 07/17/22 Status: Ordered take 1 tablet by [facility] once daily Zofran 4 MG 1 [...] 2 Episodic Other aftercare (1 source) Other [facility] (current) drug therapy; 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 Gonzales in [place]. Twins are doing well, their growth is [...] EFW (oz) 12 oz EFW by: Hadlock ([id number]) Extended Sr. Operations Manager 5.8 mm CM 3.9 mm 16% Nicolaides [...] not included)... Normal [facility] AMYLASEon 10-28-2022 Amylase [Catalytic activity/Vol] 35 U/L Normal 25-115 [facility] Comment on above: Performed By: #### C CARLYN DE JESUS AMY #### [facility] [address] [address] [address] Joe Shea CBC AUTO DIFFon 10-28-2022 BASO # 0.1 103/ul Normal 0.0-0.1 [facility] Comment on above: Performed By: #### C CARLYN DE JESUS AMY #### [facility] [address] [place], [place] [address] Dr. Joe Shea Basophils/100 WBC (Bld) 0.4 % Normal 0.2-2.0 [facility] Comment on above: Performed By: #### C MP, LIPA, NESTOR #### [facility] [address] [place] [address] Dr. Joe Shea EO # 0.1 103/ul Normal 0.0-0.7 [facility] Comment on above: Performed By: #### C NEAL LIPA, NESTOR #### [facility] [address] [place] [address] Dr. Joe Shea Eosinophils/100 WBC (Bld) 0.8 % Critically low 0.9-7. 0 [facility] Comment on above: Performed By: #### C NEAL LIPA, NESTOR #### [facility] [address] [place] [address] Dr. Joe Shea Erythrocyte distribution width (RBC) [Ratio] 13.2 % Normal 11.0-15.0 [facility] Comment on above: Performed By: #### C NEAL LIPA, NESTOR #### [facility] [address] [place] [address] Dr. Joe Shea Hematocrit (Bld) [Volume fraction] 37.2 % Normal 36.0-48.0 [facility] Comment on above: Performed By: #### C HUGO DE JESUSA, NESTOR #### [facility] [address] [place] [address] Dr. Joe Shea Hemoglobin (Bld) [Mass/Vol] 12.0 g/dL Normal 12.0-16.0 [facility] Comment on above: Performed By: #### C NEAL LIPA, NESTOR #### [facility] [address] [place] [address] Dr. Joe Shea IG # 0.03 10e3/ul Normal 0.00-0.03 [facility] Comment on above: Performed By: #### C HUGO DE JESUSA, NESTOR #### [facility] [address] [place] [address] Dr. Joe Shea IG % 0.2 % Normal 0.0-0.5 [facility] Comment on above: Performed By: #### C NEAL LIPA, NESTOR #### [facility] [address] [place] [address] Dr. Joe Shea LYMPH # 1.9 103/ul Normal 1.2-3.8 [facility] Comment on above: Performed By: #### C CARLYN DE JESUS AMY #### [facility] [address] [place] [address] Dr. Joe Shea Lymphocytes/100 WBC (Bld) 15.2 % Critically low 20.5-6 0.0 [facility] Comment on above: Performed By: #### C CARLYN DE JESUS, NESTOR #### [facility] [address] [place] [address] Dr. Joe Shea MANUAL DIFF REQ NO Normal [facility] Comment on above: Performed By: #### C CARLYN DE JESUS AMY #### [facility] [address] [place] [address] Dr. Joe Shea MCH (RBC) [Entitic mass] 28.4 pg Normal 26.7-34.0 [facility] Comment on above: Performed By: #### C CARLYN DE JESUS, NESTOR #### [facility] [address] [place] [address] Dr. Joe Shea MCHC (RBC) [Mass/Vol] 32.3 g/dL Normal 29.9-35.2 [facility] Comment on above: Performed By: #### C CARLYN DE JESUS NESTOR #### [facility] [address] [place] [address] Dr. Joe Shea MCV (RBC) [Entitic vol] 87.9 fL Normal 81.0-99.0 [facility] Comment on above: Performed By: #### C CARLYN DE JESUS, NESTOR #### [facility] [address] [place] [address] Dr. Joe Shea MONO # 0.9 103/ul Critically high 0.3-0.8 [facility] Comment on above: Performed By: #### C CARLYN DE JESUS, NESTOR #### [facility] [address] [place] [address] Dr. Joe Shea Monocytes/100 WBC (Bld) 7.1 % Normal 1.7-12.0 [facility] Comment on above: Performed By: #### C MP LIPA, NESTOR #### [facility] [address] [place] [address] Dr. Joe Shea NEUT # 9.5 103/ul Critically high 1.4-6.5 [facility] Comment on above: Performed By: #### C MP LIPA, NESTOR #### [facility] [address] [place] [address] Dr. Joe Shea Neutrophils/100 WBC (Bld) 76.3 % Critically high 43.0- 75.0 [facility] Comment on above: Performed By: #### C MP LIPA, NESTOR #### [facility] [address] [place] [address] Dr. Joe Shea Platelet mean volume (Bld) [Entitic vol] 10.8 fL Normal 9.5-13.5 [facility] Comment on above: Performed By: #### C NEAL LIPA, NESTOR #### [facility] [address] [place] [address] Dr. Joe Shea PLT 283 103/ul Normal 150-450 [facility] Comment on above: Performed By: #### C NEAL LIPA, NESTOR #### [facility] [address] [place] [address] Dr. Joe Shea RBC 4.23 106/ul Normal 4.20-5.40 [facility] Comment on above: Performed By: #### C NEAL LIPA, NESTOR #### [facility] [address] [place] [address] Dr. Joe Shea WBC 12.5 103/ul Critically high 4.0-11.0 [facility] Comment on above: Performed By: #### C NEAL LIPA, NESTOR #### [facility] [address] [place] [address] ABD/PELV W CONon [...] MISTI BREWER Date: 2022-10-28 18:31 Normal [facility] ER URINE PROFILEon 3 Bilirubin Ql (U) Negative Normal NEGATIVE [facility] Comment on above: Performed By: #### L BCL #### [facility] [address] [place] [address] Dr. Joe Shea Clarity (U) CLEAR Normal CLEAR [facility] Comment on above: Performed By: #### L BARRY #### [facility] [address] [place] [address] Dr. Joe Shea Color (U) LT. YELLOW Normal YELLOW [facility] Comment on above: Performed By: #### L BARRY #### [facility] [address] [place] [address] Dr. Joe YUNG A micrscopic examination will be performed if indicated. Normal [facility] Comment on above: Performed By: #### L BARRY #### [facility] [address] [place] [address] Dr. Joe Shea Glucose Ql (U) Negative Normal NEGATIVE [facility] Comment on above: Performed By: #### L BCL #### [facility] [address] [place] [address] Dr. Joe Shea Hemoglobin Ql (U) Negative Normal NEGATIVE [facility] Comment on above: Performed By: #### L BCL #### [facility] [address] [place] [address] Dr. Joe Shea Ketones Ql (U) Negative Normal NEGATIVE [facility] Comment on above: Performed By: #### L BCL #### [facility] [address] [place] [address] Dr. Joe Shea LEUKOCYTES TRACE Abnormal NEGATIVE [facility] Comment on above: Performed By: #### L BCL #### [facility] [address] [place] [address] Dr. Joe Shea Nitrite Ql (U) Negative Normal NEGATIVE [facility] Comment on above: Performed By: #### L BCL #### [facility] [address] [place] [address] Dr. Joe Shea pH (U) 8.0 [pH] Normal 5-9 [facility] Comment on above: Performed By: #### L BCL #### [facility] [address] [place] [address] Dr. Joe Shea SPEC GRAVITY 1.015 Normal 1.005-<=1.02 5 [facility] Comment on above: Performed By: #### L BCL #### [facility] [address] [place] [address] Dr. Joe Shea UA PROTEIN Negative Normal NEGATIVE/ TRACE [facility] Comment on above: Performed By: #### L BCL #### [facility] [address] [place] [address] Dr. Joe Shea UR MICRO IND INDICATED Normal [facility] Comment on above: Performed By: #### L BCL #### [facility] [address] [place] [address] Dr. Joe Shea Urobilinogen Qn (U) 2.0 {Pascual'U}/dL Abnormal 0.2 - 1. 0 [facility] Comment on above: Performed By: #### L BCLH #### [facility] [address] [place] [address] Dr. Joe Shea LIPASEon 10-28-2022 Lipase [Catalytic activity/Vol] 93.0 U/L Normal 73.0-393.0 [facility] Comment on above: Performed By: #### C MP, LIPA, NESTOR #### [facility] [address] [place] [address] Dr. Joe Shea URon 10-28-2022 , QUAL Negative Normal NEGATIVE [facility] Comment on above: Performed By: #### L BCLH #### [facility] [address] [place] [address] Dr. Joe Shea PROF 14(COMP METB)on 023 Albumin [Mass/Vol] 4.1 g/dL Normal 3.4-5.0 [facility] Comment on above: Performed By: #### C MP, LIPA, NESTOR #### [facility] [address] [place] [address] Dr. Joe Shea Albumin/Globulin [Mass ratio] 1.2 {ratio} Normal [facility] Comment on above: Performed By: #### C MP, LIPA, NESTOR #### [facility] [address] [place] [address] Dr. Joe Shea ALP [Catalytic activity/Vol] 60 U/L Normal 46-116 [facility] Comment on above: Performed By: #### C MP, LIPA, NESTOR #### [facility] [address] [place] [address] Dr. Joe Shea ALT [Catalytic activity/Vol] 22 U/L Normal 14-59 [facility] Comment on above: Performed By: #### C MP, LIPA, NESTOR #### [facility] [address] [place] [address] Dr. Joe Shea Anion gap [Moles/Vol] 10.2 mmol/L Normal [facility] Comment on above: Performed By: #### C MP, LIPA, NESTOR #### [facility] [address] [address] [address] Joe Shea AST [Catalytic activity/Vol] 14 U/L Critically low 15-37 [facility] Comment on above: Performed By: #### C MP, LIPA, NESTOR #### [facility] [address] [address] [address] Joe Shea Bilirubin [Mass/Vol] 0.5 mg/dL Normal 0.2-1.0 [facility] Comment on above: Performed By: #### C MP, LIPA, NESTOR #### [facility] [address] [address] [address] Joe Shea Calcium [Mass/Vol] 8.9 mg/dL Normal 8.5-10.1 [facility] Comment on above: Performed By: #### C MP, LIPA, NESTOR #### [facility] [address] [place] [address] Dr. Joe Shea Chloride [Moles/Vol] 103 mmol/L Normal 98-107 [facility] Comment on above: Performed By: #### C MP, LIPA, NESTOR #### [facility] [address] [address] [address] Joe Shea CO2 [Moles/Vol] 28.1 mmol/L Normal 21.0-32.0 [facility] Comment on above: Performed By: #### C MP, LIPA, NESTOR #### [facility] [address] [address] [address] Joe Shea Creatinine [Mass/Vol] 0.77 mg/dL Normal 0.55-1.02 [facility] Comment on above: Performed By: #### C MP, LIPA, NESTOR #### [facility] [address] [address] [address] Joe Shea EGFR-AF KAZAKH >60 Normal >=[address] [facility] Comment on above: Performed By: #### C MP, LIPA, NESTOR #### [facility] [address] [address] [address] Joe Shea EGFR-NON AF KAZAKH >60 Normal >=60 [facility] Comment on above: Performed By: #### C MP, LIPA, NESTOR #### [facility] [address] [address] [address] Joe Shea Globulin (S) [Mass/Vol] 3.5 g/dL Normal T [facility] Comment on above: Performed By: #### C MP, LIPA, NESTOR #### [facility] [address] [address] [address] Joe Shea Glucose [Mass/Vol] 85 mg/dL Normal 74-106 [facility] Comment on above: Performed By: #### C MP, LIPA, NESTOR #### [facility] [address] [address] [address] Joe Shea Potassium [Moles/Vol] 3.3 mmol/L Critically low 3.5-5.1 [facility] Comment on above: Performed By: #### C MP, LIPA, NESTOR #### [facility] [address] [place] [address] Dr. Joe Shea Protein [Mass/Vol] 7.6 g/dL Normal 6.4-8.2 [facility] Comment on above: Performed By: #### C MP LIPA, NESTOR #### [facility] [address] [place] [address] Dr. Joe Shea Sodium [Moles/Vol] 138 mmol/L Normal 136-145 [facility] Comment on above: Performed By: #### C MP, LIPA, NESTOR #### [facility] [address] [address] [address] Joe Shea Urea nitrogen [Mass/Vol] 6.0 mg/dL Critically low 7.0-18. 0 [facility] Comment on above: Performed By: #### C MP, LIPA, NESTOR #### [facility] [address] [place] [address] Dr. Joe Shea Urea nitrogen/Creatinine [Mass ratio] 7.8 mg/mg Normal [facility] Comment on above: Performed By: #### C MP, LIPA, NESTOR #### [facility] [address] [place] [address] Dr. Joe Shea URINE MICROSCOPIC ONLYon BACTERIA NONE SEEN Normal NONE SEEN [facility] Comment on above: Performed By: #### L BCLH #### [facility] [address] [place] [address] Dr. Joe Shea Bacteria identified Cx Nom (U) NOT INDICATED Normal [facility] Comment on above: Performed By: #### L BCLH #### [facility] [address] [place] [address] Dr. Jeo Shea CAST NONE SEEN Normal NONE SEEN [facility] Comment on above: Performed By: #### L BCLH #### [facility] [address] [place] [address] Dr. Joe Shea Crystals LM Nom (Urine sed) NONE SEEN Normal NONE SEEN [facility] Comment on above: Performed By: #### L BCLH #### [facility] [address] [place] [address] Dr. Joe Shea Epithelial cells LM Ql (Urine sed) FEW Abnormal NONE SEEN /RARE [facility] Comment on above: Performed By: #### L BCLH #### [facility] [address] [place] [address] Dr. Joe Shea MUCOUS NONE SEEN Normal NONE SEEN [facility] Comment on above: Performed By: #### L BCLH #### [facility] [address] [place] [address] Dr. Joe Shea RBC NONE SEEN Abnormal 0-2 [facility] Comment on above: Performed By: #### L BCLH #### [facility] [address] [place] [address] Dr. Joe Shea WBC 0-2 Abnormal NONE SEEN [facility] Comment on above: Performed By: #### L BCLH #### [facility] [address] [place] [address] Dr. Joe Shea LACTOFERRIN FECAL QUANTon Lactoferrin, Fecal, Quant. <1.00 Normal 0.00-7.24 [facility] Comment on [...] (IBS). Performed By: #### D TRESA #### [facility] [address] [address] [address] Joe Shea CALPROTECTIN, FECALon 2022 Calprotectin, Fecal 31 ug/g Normal 0-120 [facility] Comment on above: Result Comment: Conc entration Interpretation Follow-Up <16 - 50 ug/g Normal None >50 -120 ug/g Borderline Re-evaluate in 4-6 weeks >120 ug/g Abnormal Repeat as clinically indicated Performed By: #### C MP, LIPA, NESTOR #### [facility] [address] [place] [address] Dr. Joe Shea BOWEL DISORDERS EVALUATION R ULE-OUT CASCon 09-25-2022 Antigliadin 8 units Normal 0-19 [facility] Comment on above: Result Comment: Nega tive 0 - 19 Weak Positive 20 - 30 Moderate to Strong Positive >30 . Performed By: #### C BC #### [facility] [address] [place] [address] Dr. Joe Shea Atypical pANCA Negative Normal Negative [facility] Comment on above: Performed By: #### C BC #### [facility] [address] [address] [address] Joe Shea Note: [place] continues Normal [facility] Comment on above: Performed By: #### C BC #### [facility] [address] [address] [address] Joe Shea Note: Comment Normal [facility] Comment on above: Result Comment: Sugg estive of irritable bowel syndrome (IBS). Careful evaluation of the patient's history, physical examination, and application of Dundee III diagnostic criteria may help to rule in or rule out the diagnosis of IBS. Subsequent testing for Fecal Calprotectin (933940) may be recommended. If IBD is strongly suspected, subsequent testing with the Crohn's Disease Prognostic Profile (219989) that includes anti- glycan antibodies AMCA, ALCA, ACCA, and Zulema may aid in differential diagnosis. Performed By: #### C BC #### [facility] [address] [place] [address] Dr. Joe Shea Saccharomyces Cer. IgG <20.0 Normal 0.0-24.[address] [facility] Comment on above: Result Comment: Nega tive <20.0 Equivocal 20.1 - 24.9 Positive >or= 25.0 Performed By: #### C BC #### [facility] [address] [place] [address] Dr. Joe Shea tTG/DGP SCR Negative Normal Negative [facility] Comment on above: Result Comment: Ef fective September 21, 2022 this profile will be made non-orderable due to non-availability of reagents for tTG/DGP Combo. No replacement number is available at this time. For further information, please contact your local [facility] Survey Operations Director. Performed By: #### C BC #### [facility] [address] [place] [address] Dr. Joe Shea CBC AUTO DIFFon 09-19-2022 BASO # 0.1 103/ul Normal 0.0-0.1 [facility] Comment on above: Performed By: #### D TRESA #### [facility] [address] [place] [address] Dr. Joe Shea Basophils/100 WBC (Bld) 0.9 % Normal 0.2-2.0 [facility] Comment on above: Performed By: #### D LUIS ARMANDOUL #### [facility] [address] [place] [address] Dr. Joe Shea EO # 0.2 103/ul Normal 0.0-0.7 [facility] Comment on above: Performed By: #### D LUIS ARMANDOUL #### [facility] [address] [place] [address] Dr. Joe Shea Eosinophils/100 WBC (Bld) 2.4 % Normal 0.9-7.0 [facility] Comment on above: Performed By: #### Althea GTZ #### [facility] [address] [place] [address] Dr. Joe Shea Erythrocyte distribution width (RBC) [Ratio] 13.2 % Normal 11.0-15.0 [facility] Comment on above: Performed By: #### Althea GTZ #### [facility] [address] [place] [address] Dr. Joe Shea Hematocrit (Bld) [Volume fraction] 38.3 % Normal 36.0-48.0 [facility] Comment on above: Performed By: #### Althea GTZ #### [facility] [address] [place] [address] Dr. Joe Shea Hemoglobin (Bld) [Mass/Vol] 12.3 g/dL Normal 12.0-16.0 [facility] Comment on above: Performed By: #### Althea GTZ #### [facility] [address] [place] [address] Dr. Joe Shea IG # 0.02 10e3/ul Normal 0.00-0.03 [facility] Comment on above: Performed By: #### Althea GTZ #### [facility] [address] [place] [address] Dr. Joe Shea IG % 0.3 % Normal 0.0-0.5 [facility] Comment on above: Performed By: #### Althea GTZ #### [facility] [address] [place] [address] Dr. Joe Shea LYMPH # 1.7 103/ul Normal 1.2-3.8 [facility] Comment on above: Performed By: #### Althea GTZ #### [facility] [address] [place] [address] Dr. Joe Shea Lymphocytes/100 WBC (Bld) 24.6 % Normal 20.5-60.0 [facility] Comment on above: Performed By: #### Althea GTZ #### [facility] [address] [place] [address] Dr. Joe Shea MANUAL DIFF REQ NO Normal [facility] Comment on above: Performed By: #### Althea GTZ #### [facility] [address] [address] [address] Joe Shea MCH (RBC) [Entitic mass] 28.1 pg Normal 26.7-34.0 [facility] Comment on above: Performed By: #### Althea GTZ #### [facility] [address] [place] [address] Dr. Joe Shea MCHC (RBC) [Mass/Vol] 32.1 g/dL Normal 29.9-35.2 [facility] Comment on above: Performed By: #### Althea GTZ #### [facility] [address] [place] [address] Dr. Joe Shea MCV (RBC) [Entitic vol] 87.6 fL Normal 81.0-99.0 [facility] Comment on above: Performed By: #### Althea GTZ #### [facility] [address] [place] [address] Dr. Joe Shea MONO # 0.4 103/ul Normal 0.3-0.8 [facility] Comment on above: Performed By: #### Althea GTZ #### [facility] [address] [place] [address] Dr. Joe Shea Monocytes/100 WBC (Bld) 5.5 % Normal 1.7-12.0 [facility] Comment on above: Performed By: #### Althea GTZ #### [facility] [address] [place] [address] Dr. Joe Shea NEUT # 4.7 103/ul Normal 1.4-6.5 [facility] Comment on above: Performed By: #### Althea GTZ #### [facility] [address] [place] [address] Dr. Joe Shea Neutrophils/100 WBC (Bld) 66.3 % Normal 43.0-75.0 [facility] Comment on above: Performed By: #### Althea GTZ #### [facility] [address] [place] [address] Dr. Joe Shea Platelet mean volume (Bld) [Entitic vol] 11.4 fL Normal 9.5-13.5 [facility] Comment on above: Performed By: #### Althea GTZ #### [facility] [address] [place] [address] Dr. Joe Shea PLT 275 103/ul Normal 150-450 [facility] Comment on above: Performed By: #### Althea GTZ #### [facility] [address] [place] [address] Dr. Joe Shea RBC 4.37 106/ul Normal 4.20-5.40 [facility] Comment on above: Performed By: #### Althea GTZ #### [facility] [address] [place] [address] Dr. Joe Shea WBC 7.0 103/ul Normal 4.0-11.0 [facility] Comment on above: Performed By: #### Althea GTZ #### [facility] [address] [place] [address] Dr. Joe Shea PROF 14(COMP METB)on 023 Albumin [Mass/Vol] 4.4 g/dL Normal 3.4-5.0 [facility] Comment on above: Performed By: #### L DAIN #### [facility] [address] [place] [address] Dr. Joe Shea Albumin/Globulin [Mass ratio] 1.4 {ratio} Normal [facility] Comment on above: Performed By: #### L BCLShyla #### [facility] [address] [place] [address] Dr. Joe Shea ALP [Catalytic activity/Vol] 51 U/L Normal 46-116 [facility] Comment on above: Performed By: #### L BCLShyla #### [facility] [address] [place] [address] Dr. Joe Shea ALT [Catalytic activity/Vol] 20 U/L Normal 14-59 [facility] Comment on above: Performed By: #### L DAIN #### [facility] [address] [place] [address] Dr. Joe Shea Anion gap [Moles/Vol] 11.7 mmol/L Normal Th [facility] Comment on above: Performed By: #### L BCLH #### [facility] [address] [place] [address] Dr. Joe Shea AST [Catalytic activity/Vol] 17 U/L Normal 15-37 [facility] Comment on above: Performed By: #### L BCLH #### [facility] [address] [address] [address] Joe Shea Bilirubin [Mass/Vol] 0.4 mg/dL Normal 0.2-1.0 [facility] Comment on above: Performed By: #### L BCLH #### [facility] [address] [place] [address] Dr. Joe Shea Calcium [Mass/Vol] 9.3 mg/dL Normal 8.5-10.1 [facility] Comment on above: Performed By: #### L BCLH #### [facility] [address] [place] [address] Dr. Joe Shea Chloride [Moles/Vol] 104 mmol/L Normal 98-107 [facility] Comment on above: Performed By: #### L BCLH #### [facility] [address] [place] [address] Dr. Joe Shea CO2 [Moles/Vol] 28.5 mmol/L Normal 21.0-32.0 [facility] Comment on above: Performed By: #### L BCLH #### [facility] [address] [place] [address] Dr. Joe Shea Creatinine [Mass/Vol] 0.55 mg/dL Normal 0.55-1.02 [facility] Comment on above: Performed By: #### L BCLH #### [facility] [address] [place] [address] Dr. Joe Shea EGFR-AF KAZAKH >60 Normal >=60 [facility] Comment on above: Performed By: #### L BCLH #### [facility] [address] [place] [address] Dr. Joe Shea EGFR-NON AF KAZAKH >60 Normal >=60 [facility] Comment on above: Performed By: #### L BCLH #### [facility] [address] [address] [address] Joe Shea Globulin (S) [Mass/Vol] 3.1 g/dL Normal [facility] Comment on above: Performed By: #### L BCLH #### [facility] [address] [address] [address] Joe Shea Glucose [Mass/Vol] 90 mg/dL Normal 74-106 [facility] Comment on above: Performed By: #### L BCLH #### [facility] [address] [address] [address] Joe Shea Potassium [Moles/Vol] 4.2 mmol/L Normal 3.5-5.1 [facility] Comment on above: Performed By: #### L BCLH #### [facility] [address] [address] [address] Joe Shea Protein [Mass/Vol] 7.5 g/dL Normal 6.4-8.2 [facility] Comment on above: Performed By: #### L BCLH #### [facility] [address] [address] [address] Joe Shea Sodium [Moles/Vol] 140 mmol/L Normal 136-145 [facility] Comment on above: Performed By: #### L BCLH #### [facility] [address] [address] [address] Joe Shea Urea nitrogen [Mass/Vol] 6.0 mg/dL Critically low 7.0-18. 0 [facility] Comment on above: Performed By: #### L BCLH #### [facility] [address] [address] [address] Joe Shea Urea nitrogen/Creatinine [Mass ratio] 10.9 mg/mg Normal [facility] Comment on above: Performed By: #### L BCLH #### [facility] [address] [address] [address] Joe Shea PROTIMEon 09-19-2022 INR Coag (PPP) [Relative time] 1.08 {INR} Normal [facility] Comment on above: Performed By: #### L BCL #### [facility] [address] [place] [address] Dr. Joe Shea INR GUIDELINES SEE BELOW Normal [facility] Comment on above: Result Comment: CHICA RED INR: 2.0 - 3.0 CONDITIONS NOT LISTED BELOW 2.5 - 3.5 FOR PROSTHETIC HEART VALVE REPLACEMENT 2.5 - 3.5 RECURRENT THROMBOSIS Performed By: #### L BARRY #### [facility] [address] [address] [address] Joe Shea PT Coag (PPP) [Time] 11.4 s Normal 9.0-11.6 [facility] Comment on above: Performed By: #### L BARRY #### [facility] [address] [place] [address] Dr. Joe Shea TSHon 09-19-2022 TSH 0.957 uIU/mL Normal 0.358-3.740 [facility] Comment on above: Performed By: #### L [facility] #### [facility] [address] [place] [address] Dr. Joe Shea Pre-Certification Formon Pre-Certification Form [id number] 269#1.00CD:127 Normal [facility] Consent for Procedure/Surger yon 07-23-2022 Consent for Procedure/Surgery [id number] 7E#1.00CD:127 Normal [facility] Facesheeton 07-19-2022 Facesheet [id number] 71#1.00CD:127 Normal [facility] CBC AUTO DIFFon 07-06-2022 BASO # 0.1 103/ul Normal 0.0-0.1 [facility] Comment on above: Performed By: #### C MP, LIPA, NESTOR #### [facility] [address] [place] [address] Dr. Joe Shea Basophils/100 WBC (Bld) 0.8 % Normal 0.2-2.0 [facility] Comment on above: Performed By: #### C CARLYN DE JESUS AMY #### [facility] [address] [place] [address] Dr. Joe Shea EO # 0.4 103/ul Normal 0.0-0.7 [facility] Comment on above: Performed By: #### C CARLYN DE JESUS NESTOR #### [facility] [address] [place] [address] Dr. Joe Shea Eosinophils/100 WBC (Bld) 4.2 % Normal 0.9-7.0 [facility] Comment on above: Performed By: #### C CARLYN DE JESUS AMY #### [facility] [address] [place] [address] Dr. Joe Shea Erythrocyte distribution width (RBC) [Ratio] 13.5 % Normal 11.0-15.0 [facility] Comment on above: Performed By: #### C CARLYN DE JESUS NESTOR #### [facility] [address] [place] [address] Dr. Joe Shea Hematocrit (Bld) [Volume fraction] 36.8 % Normal 36.0-48.0 [facility] Comment on above: Performed By: #### C CARLYN DE JESUS AMY #### [facility] [address] [place] [address] Dr. Joe Shea Hemoglobin (Bld) [Mass/Vol] 12.2 g/dL Normal 12.0-16.0 [facility] Comment on above: Performed By: #### C CARLYN DE JESUS, NESTOR #### [facility] [address] [place] [address] Dr. Joe Shea IG # 0.02 10e3/ul Normal 0.00-0.03 [facility] Comment on above: Performed By: #### C CARLYN DE JESUS, NESTOR #### [facility] [address] [place] [address] Dr. Joe Shea IG % 0.2 % Normal 0.0-0.5 [facility] Comment on above: Performed By: #### C MP, LIPA, NESTOR #### [facility] [address] [address] [address] Joe Shea LYMPH # 2.1 103/ul Normal 1.2-3.8 [facility] Comment on above: Performed By: #### C MP, LIPA, NESTOR #### [facility] [address] [address] [address] Joe Shea Lymphocytes/100 WBC (Bld) 20.3 % Critically low 20.5-6 0.0 [facility] Comment on above: Performed By: #### C MP, LIPA, NESTOR #### [facility] [address] [place] [address] Dr. Joe Shea MANUAL DIFF REQ NO Normal [facility] Comment on above: Performed By: #### C MP, LIPA, NESTOR #### [facility] [address] [place] [address] Dr. Joe Shea MCH (RBC) [Entitic mass] 28.6 pg Normal 26.7-34.0 [facility] Comment on above: Performed By: #### C MP, LIPA, NESTOR #### [facility] [address] [place] [address] Dr. Joe Shea MCHC (RBC) [Mass/Vol] 33.2 g/dL Normal 29.9-35.2 [facility] Comment on above: Performed By: #### C MP, LIPA, NESTOR #### [facility] [address] [place] [address] Dr. Joe Shea MCV (RBC) [Entitic vol] 86.4 fL Normal 81.0-99.0 [facility] Comment on above: Performed By: #### C MP, LIPA, NESTOR #### [facility] [address] [place] [address] Dr. Joe Shea MONO # 0.6 103/ul Normal 0.3-0.8 [facility] Comment on above: Performed By: #### C MP, LIPA, NESTOR #### [facility] [address] [place] [address] Dr. Joe Shea Monocytes/100 WBC (Bld) 5.5 % Normal 1.7-12.0 T [facility] Comment on above: Performed By: #### C CARLYN DE JESUS NESTOR #### [facility] [address] [place] [address] Dr. Joe Shea NEUT # 7.2 103/ul Critically high 1.4-6.5 [facility] Comment on above: Performed By: #### C CARLYN DE JESUS, NESTOR #### [facility] [address] [place] [address] Dr. Joe Shea Neutrophils/100 WBC (Bld) 69.0 % Normal 43.0-75.0 [facility] Comment on above: Performed By: #### C CARLYN DE JESUS NESTOR #### [facility] [address] [place] [address] Dr. Joe Shea Platelet mean volume (Bld) [Entitic vol] 10.8 fL Normal 9.5-13.5 [facility] Comment on above: Performed By: #### C CARLYN DE JESUS NESTOR #### [facility] [address] [place] [address] Dr. Joe Shea PLT 316 103/ul Normal 150-450 [facility] Comment on above: Performed By: #### C CARLYN DE JESUS, NESTOR #### [facility] [address] [place] [address] Dr. Joe Shea RBC 4.26 106/ul Normal 4.20-5.40 [facility] Comment on above: Performed By: #### C CARLYN DE JESUS, NESTOR #### [facility] [address] [place] [address] Dr. Joe Shea WBC 10.4 103/ul Normal 4.0-11.0 [facility] Comment on above: Performed By: #### C CARLYN DE JESUS, NESTOR #### [facility] [address] [place] [address] Dr. Joe Shea PREG QUANT HCGon 07-06-2022 HCG QUANT <1 Normal [facility] Comment on above: Performed By: #### C CARLYN DE JESUS, NESTOR #### [facility] [address] [place] [address] Dr. Joe Shea HCG RANGE SEE BELOW Normal [facility] Comment on above: Result Comment: 5-50 0.2-1 WEEK 50-500 1-2 WEEKS 100-5,000 2-3 WEEKS 500-10,000 3-4 WEEKS 1,000-50,000 4-5 WEEKS 10,000-100,000 5-6 WEEKS 15,000-200,000 6-8 WEEKS 10,000-100,000 2-3 MONTHS Performed By: #### C CARLYN DE JESUS AMY #### [facility] [address] [place], [place] [address] Dr. Joe Shea HEPATITIS C ANTIBODYon 06-26 Hep C Virus Ab <0.1 Normal 0.0-0.9 [facility] Comment on above: Result Comment: Nega [...] Hepatitis C Virus (HCV) RNA, Diagnosis, MEGAN (183825) and Hepatitis C Virus (HCV) Antibody with reflex to Quantitative Real-time PCR (262958). Performed By: #### L [facility] #### [facility] [address] [place], [place] [address] Dr. Joe Shea Covid-19 PCR (CVDTB)on 05-31 SARS-CoV-2 (COVID-19) RNA MEGAN+probe Ql (Unsp spec) Not detected Normal NOT DETECTED [facility] Comment on above: Result Comment: This test is not yet approved or cleared by the [place] FDA. When there are no FDA-approved or cleared tests available, and other criteria are met, FDA can make tests available under an emergency access mechanism called an Emergency Use Authorization (EUA). The EUA for this test is supported by the [place] of Health and Human Service's (HHS's) declaration [...] SARS-CoV-2. Performed By: #### C VDTB #### [facility] [address] [place] [address] Dr. Joe Shea HEP B SURFACE ANTIGEN SCREEN on 06-12-2022 HBsAg Screen Negative Normal Negative [facility] Comment on above: Performed By: #### D HEASMARICRUZ #### [facility] [address] [place] [address] Dr. Joe Shea HIV 1 AND 2 WITH REFLEXon HIV Screen 4th Generation wRfx Non-Reactive Normal Non Reactive [facility] Comment on above: Result Comment: HIV Negative HIV-1/HIV-2 antibodies and HIV-1 p24 antigen were NOT detected. There is no laboratory evidence of HIV infection. Performed By: #### C MP, LIPA, NESTOR #### [facility] [address] [place] [address] Dr. Joe Shea RPR QUANTon 06-12-2022 Rapid Plasma Reagin, Quant Non-Reactive Normal NonRea< 1:1 [facility] Comment on [...] utilized, such as Treponema pallidum (Syphilis) Screening [place] (288216) or Rapid Plasma Reagin (RPR) Test With Reflex to Quantitative RPR and Confirmatory Treponema pallidum Antibodies (013127). Performed By: #### C MP, LIPA, NESTOR #### [facility] [address] [place] [address] Dr. Joe Shea Physician Referralon 022 Physician Referral [id number] A3#1.00CD:127 Normal [facility] US PELVIS AND TRANSVAGon US [...] ANGIE MEJIA Date: 2022-05-31 17:18 Normal [facility] AMYLASEon 05-23-2022 Amylase [Catalytic activity/Vol] 24 U/L Critically low 25-115 [facility] Comment on above: Performed By: #### C CARLYN DE JESUS AMY #### [facility] [address] [place] [address] Dr. Joe Shea CBC AUTO DIFFon 05-23-2022 Eosinophils/100 WBC (Bld) 1.5 % Normal 0.9-7.0 [facility] Comment on above: Performed By: #### L BCL #### [facility] [address] [place] [address] Dr. Joe Shea Erythrocyte distribution width (RBC) [Ratio] 13.5 % Normal 11.0-15.0 [facility] Comment on above: Performed By: #### L BCL #### [facility] [address] [place] [address] Dr. Joe Shea Hematocrit (Bld) [Volume fraction] 33.0 % Critically low 36.0-48.0 [facility] Comment on above: Performed By: #### L BCLH #### [facility] [address] [address] [address] Joe Shea Hemoglobin (Bld) [Mass/Vol] 10.7 g/dL Critically low 12.0-16.0 [facility] Comment on above: Performed By: #### L BCLH #### [facility] [address] [place] [address] Dr. Joe Shea LYMPH # 1.2 103/ul Normal 1.2-3.8 [facility] Comment on above: Performed By: #### L BCLH #### [facility] [address] [place] [address] Dr. Joe Shea Lymphocytes/100 WBC (Bld) 20.2 % Critically low 20.5-6 0.0 [facility] Comment on above: Performed By: #### L BCLH #### [facility] [address] [place] [address] Dr. Joe Shea MCH (RBC) [Entitic mass] 28.0 pg Normal 26.7-34.0 [facility] Comment on above: Performed By: #### L BCLH #### [facility] [address] [place] [address] Dr. Joe Shea MCHC (RBC) [Mass/Vol] 32.4 g/dL Normal 29.9-35.2 [facility] Comment on above: Performed By: #### L BCLH #### [facility] [address] [place] [address] Dr. Joe Shea Monocytes/100 WBC (Bld) 7.9 % Normal 1.7-12.0 [facility] Comment on above: Performed By: #### L BCLH #### [facility] [address] [place] [address] Dr. Joe Shea Neutrophils/100 WBC (Bld) 69.9 % Normal 43.0-75.0 [facility] Comment on above: Performed By: #### L BCLH #### [facility] [address] [place] [address] Dr. Joe Shea Platelet mean volume (Bld) [Entitic vol] 10.6 fL Normal 9.5-13.5 [facility] Comment on above: Performed By: #### L BCLH #### [facility] [address] [place] [address] Dr. Joe Shea PLT 233 103/ul Normal 150-450 [facility] Comment on above: Performed By: #### L BCLH #### [facility] [address] [place] [address] Dr. Joe Shea RBC 3.82 106/ul Critically low 4.20-5.40 [facility] Comment on above: Performed By: #### L BCLH #### [facility] [address] [place] [address] Dr. Joe Shea WBC 6.1 103/ul Normal 4.0-11.0 [facility] Comment on above: Performed By: #### L BCLH #### [facility] [address] [place] [address] Dr. Joe Shea BASO # 0.0 103/ul Normal 0.0-0.1 [facility] Comment on above: Performed By: #### L BCLH #### [facility] [address] [place] [address] Dr. Joe Shea Performed By: #### C CARLYN DE JESUS AMY #### [facility] [address] [place] [address] Dr. Joe Shea Basophils/100 WBC (Bld) 0.3 % Normal 0.2-2.0 [facility] Comment on above: Performed By: #### L BCLH #### [facility] [address] [place] [address] Dr. Joe Shea Performed By: #### C CARLYN DE JESUS, NESTOR #### [facility] [address] [place] [address] Dr. Joe Shea EO # 0.1 103/ul Normal 0.0-0.7 [facility] Comment on above: Performed By: #### L BCLH #### [facility] [address] [place] [address] Dr. Joe Shea Performed By: #### C MP LIPA, NESTOR #### [facility] [address] [place] [address] Dr. Joe Shea Eosinophils/100 WBC (Bld) 1.9 % Normal 0.9-7.0 [facility] Comment on above: Performed By: #### C MP, LIPA, NESTOR #### [facility] [address] [place] [address] Dr. Joe Shea Erythrocyte distribution width (RBC) [Ratio] 13.4 % Normal 11.0-15.0 [facility] Comment on above: Performed By: #### C MP LIPA, NESTOR #### [facility] [address] [place] [address] Dr. Joe Shea Hematocrit (Bld) [Volume fraction] 32.3 % Critically low 36.0-48.0 [facility] Comment on above: Performed By: #### C MP LIPA, NESTOR #### [facility] [address] [place] [address] Dr. Joe Shea Hemoglobin (Bld) [Mass/Vol] 10.6 g/dL Critically low 12.0-16.0 [facility] Comment on above: Performed By: #### C NEAL LIPA, NESTOR #### [facility] [address] [place] [address] Dr. Joe Shea IG # 0.01 10e3/ul Normal 0.00-0.03 [facility] Comment on above: Performed By: #### L BCL #### [facility] [address] [place] [address] Dr. Joe Shea Performed By: #### C MP LIPA, NESTOR #### [facility] [address] [place] [address] Dr. Joe Shea IG % 0.2 % Normal 0.0-0.5 [facility] Comment on above: Performed By: #### L BCLH #### [facility] [address] [place] [address] Dr. Joe Shea Performed By: #### C NEAL LIPA, NESTOR #### [facility] [address] [place] [address] Dr. Joe Shea LYMPH # 1.0 103/ul Critically low 1.2-3.8 [facility] Comment on above: Performed By: #### C MP LIPA, NESTOR #### [facility] [address] [place] [address] Dr. Joe Shea Lymphocytes/100 WBC (Bld) 16.6 % Critically low 20.5-6 0.0 [facility] Comment on above: Performed By: #### C MP, LIPA, NESTOR #### [facility] [address] [place] [address] Dr. Joe Shea MANUAL DIFF REQ NO Normal [facility] Comment on above: Performed By: #### L BCLH #### [facility] [address] [place] [address] Dr. Joe Shea Performed By: #### C MP LIPA, NESTOR #### [facility] [address] [place] [address] Dr. Joe Shea MCH (RBC) [Entitic mass] 28.3 pg Normal 26.7-34.0 [facility] Comment on above: Performed By: #### C MP LIPA, NESTOR #### [facility] [address] [place] [address] Dr. Joe Shea MCHC (RBC) [Mass/Vol] 32.8 g/dL Normal 29.9-35.2 [facility] Comment on above: Performed By: #### C MP LIPA, NESTOR #### [facility] [address] [place] [address] Dr. Joe Shea MCV (RBC) [Entitic vol] 86.4 fL Normal 81.0-99.0 [facility] Comment on above: Performed By: #### L BCLH #### [facility] [address] [place] [address] Dr. Joe Shea Performed By: #### C MP, LIPA, NESTOR #### [facility] [address] [place] [address] Dr. Joe Shea MONO # 0.5 103/ul Normal 0.3-0.8 [facility] Comment on above: Performed By: #### L BCL #### [facility] [address] [place] [address] Dr. Joe Shea Performed By: #### C CARLYN DE JESUS, NESTOR #### [facility] [address] [place] [address] Dr. Joe Shea Monocytes/100 WBC (Bld) 9.1 % Normal 1.7-12.0 [facility] Comment on above: Performed By: #### C NEAL LIPA, NESTOR #### [facility] [address] [place] [address] Dr. Joe Shea NEUT # 4.3 103/ul Normal 1.4-6.5 [facility] Comment on above: Performed By: #### L BCL #### [facility] [address] [place] [address] Dr. Joe Shea Performed By: #### C HUGO DE JESUSA, NESTOR #### [facility] [address] [place] [address] Dr. Joe Shea Neutrophils/100 WBC (Bld) 71.9 % Normal 43.0-75.0 [facility] Comment on above: Performed By: #### C HUGO DE JESUSA, NESTOR #### [facility] [address] [place] [address] Dr. Joe Shea Platelet mean volume (Bld) [Entitic vol] 11.0 fL Normal 9.5-13.5 [facility] Comment on above: Performed By: #### C NEAL LIPA, NESTOR #### [facility] [address] [place] [address] Dr. Joe Shea PLT 224 103/ul Normal 150-450 [facility] Comment on above: Performed By: #### C HUGO DE JESUSA, NESTOR #### [facility] [address] [place] [address] Dr. Joe Shea RBC 3.74 106/ul Critically low 4.20-5.40 [facility] Comment on above: Performed By: #### C NEAL LIPA, NESTOR #### [facility] [address] [place] [address] Dr. Joe Shea WBC 5.9 103/ul Normal 4.0-11.0 [facility] Comment on above: Performed By: #### C CARLYN DE JESUS AMY #### [facility] [address] [place] [address] Dr. Joe MOORE URINE PROFILEon 2 Bilirubin Ql (U) Negative Normal NEGATIVE [facility] Comment on above: Performed By: #### L BCLH #### [facility] [address] [place] [address] Dr. Joe Shea Clarity (U) CLEAR Normal CLEAR [facility] Comment on above: Performed By: #### L BCLH #### [facility] [address] [place] [address] Dr. Joe Shea Color (U) LT. YELLOW Normal YELLOW [facility] Comment on above: Performed By: #### L BCL #### [facility] [address] [place] [address] Dr. Joe YUNG A micrscopic examination will be performed if indicated. Normal [facility] Comment on above: Performed By: #### L BCL #### [facility] [address] [place] [address] Dr. Joe Shea Glucose Ql (U) Negative Normal NEGATIVE [facility] Comment on above: Performed By: #### L BCLH #### [facility] [address] [place] [address] Dr. Joe Shea Hemoglobin Ql (U) Negative Normal NEGATIVE [facility] Comment on above: Performed By: #### L BCLH #### [facility] [address] [place] [address] Dr. Joe Shea Ketones Ql (U) Negative Normal NEGATIVE [facility] Comment on above: Performed By: #### L BCLH #### [facility] [address] [place] [address] Dr. Joe Shea LEUKOCYTES Negative Normal NEGATIVE [facility] Comment on above: Performed By: #### L BCLH #### [facility] [address] [place] [address] Dr. Joe Shea Nitrite Ql (U) Negative Normal NEGATIVE [facility] Comment on above: Performed By: #### L BCL #### [facility] [address] [place] [address] Dr. Joe Shea pH (U) 5.5 [pH] Normal 5-9 [facility] Comment on above: Performed By: #### L BCL #### [facility] [address] [address] [address] Joe Shea SPEC GRAVITY 1.020 Normal 1.005-<=1.02 5 [facility] Comment on above: Performed By: #### L BCL #### [facility] [address] [place] [address] Dr. Joe Shea UA PROTEIN Negative Normal NEGATIVE/ TRACE [facility] Comment on above: Performed By: #### L BCL #### [facility] [address] [place] [address] Dr. Joe Shea UR MICRO IND NOT INDICATED Normal [facility] Comment on above: Performed By: #### L BARRY #### [facility] [address] [place] [address] Dr. Joe Shea Urobilinogen Qn (U) 0.2 {Pascual'U}/dL Normal 0.2 - 1. 0 [facility] Comment on above: Performed By: #### L BCL #### [facility] [address] [place] [address] Dr. Joe Shea LIPASEon 05-23-2022 Lipase [Catalytic activity/Vol] 63.0 U/L Critically low 73.0-393.0 [facility] Comment on above: Performed By: #### C MP, LIPA, NESTOR #### [facility] [address] [place] [address] Dr. Joe Shea URon 05-23-2022 , QUAL Negative Normal NEGATIVE [facility] Comment on above: Performed By: #### C #### [facility] [address] [place] [address] Dr. Joe Shea PROF 14(COMP METB)on 022 Albumin [Mass/Vol] 3.7 g/dL Normal 3.4-5.0 [facility] Comment on above: Performed By: #### C CARLYN DE JESUS, NESTOR #### [facility] [address] [place] [address] Dr. Joe Shea Albumin/Globulin [Mass ratio] 1.4 {ratio} Normal [facility] Comment on above: Performed By: #### C CARLYN DE JESUS, NESTOR #### [facility] [address] [place] [address] Dr. Joe Shea ALP [Catalytic activity/Vol] 44 U/L Critically low 46-116 [facility] Comment on above: Performed By: #### C CARLYN DE JESUS, NESTOR #### [facility] [address] [place] [address] Dr. Joe Shea ALT [Catalytic activity/Vol] 24 U/L Normal 14-59 [facility] Comment on above: Performed By: #### C CARLYN DE JESUS, NESTOR #### [facility] [address] [place] [address] Dr. Joe Shea Anion gap [Moles/Vol] 9.1 mmol/L Normal [facility] Comment on above: Performed By: #### C CARLYN DE JESUS, NESTOR #### [facility] [address] [place] [address] Dr. Joe Shea AST [Catalytic activity/Vol] 18 U/L Normal 15-37 [facility] Comment on above: Performed By: #### C CARLYN DE JESUS, NESTOR #### [facility] [address] [place] [address] Dr. Joe Shea Bilirubin [Mass/Vol] 0.2 mg/dL Normal 0.2-1.0 [facility] Comment on above: Performed By: #### C CARLYN DE JESUS, NESTOR #### [facility] [address] [place] [address] Dr. Joe Shea Calcium [Mass/Vol] 8.3 mg/dL Critically low 8.5-10.[address] [facility] Comment on above: Performed By: #### C CARLYN DE JESUS, NESTOR #### [facility] [address] [address] [address] Joe Shea Chloride [Moles/Vol] 105 mmol/L Normal 98-107 [facility] Comment on above: Performed By: #### C MP, LIPA, NESTOR #### [facility] [address] [address] [address] Joe Shea CO2 [Moles/Vol] 29.7 mmol/L Normal 21.0-32.0 [facility] Comment on above: Performed By: #### C MP, LIPA, NESTOR #### [facility] [address] [address] [address] Joe Shea Creatinine [Mass/Vol] 0.61 mg/dL Normal 0.55-1.02 [facility] Comment on above: Performed By: #### C MP, LIPA, NESTOR #### [facility] [address] [place] [address] Dr. Joe Shea EGFR-AF KAZAKH >60 Normal >=60 [facility] Comment on above: Performed By: #### C MP, LIPA, NESTOR #### [facility] [address] [place] [address] Dr. Joe Shea EGFR-NON AF KAZAKH >60 Normal >=60 [facility] Comment on above: Performed By: #### C MP, LIPA, NESTOR #### [facility] [address] [place] [address] Dr. Joe Shea Globulin (S) [Mass/Vol] 2.6 g/dL Normal [facility] Comment on above: Performed By: #### C MP, LIPA, NESTOR #### [facility] [address] [place] [address] Dr. Joe Shea Glucose [Mass/Vol] 92 mg/dL Normal 74-106 [facility] Comment on above: Performed By: #### C MP, LIPA, NESTOR #### [facility] [address] [address] [address] Joe Shea Potassium [Moles/Vol] 3.8 mmol/L Normal 3.5-5.1 [facility] Comment on above: Performed By: #### C MP, LIPA, NESTOR #### [facility] [address] [address] [address] Joe Shea Protein [Mass/Vol] 6.3 g/dL Critically low 6.4-8.2 Th e [facility] Comment on above: Performed By: #### C MP, LIPA, NESTOR #### [facility] [address] [address] [address] Joe Shea Sodium [Moles/Vol] 140 mmol/L Normal 136-145 [facility] Comment on above: Performed By: #### C MP LIPA, NESTOR #### [facility] [address] [address] [address] oJe Shea Urea nitrogen [Mass/Vol] 9.0 mg/dL Normal 7.0-18.0 [facility] Comment on above: Performed By: #### C NEAL LIPA, NESTOR #### [facility] [address] [address] [address] Joe Shea Urea nitrogen/Creatinine [Mass ratio] 14.8 mg/mg Normal [facility] Comment on above: Performed By: #### C NEAL LIPA, NESTOR #### [facility] [address] [place] [address] Dr. Joe Shea US SINGLE QUAD RT [...] SHIRLEY PATEL Date: 2022-05-23 08:29 Normal [facility] AMYLASEon 05-22-2022 Amylase [Catalytic activity/Vol] 50 U/L Normal 25-115 [facility] Comment on above: Performed By: #### A MY, CMP, LIPA #### [facility] [address] [place] [address] Dr. Joe Shea CBC AUTO DIFFon 05-22-2022 BASO # 0.1 103/ul Normal 0.0-0.1 [facility] Comment on above: Performed By: #### C MP, LIPA, NESTOR #### [facility] [address] [place] [address] Dr. Joe Shea Basophils/100 WBC (Bld) 0.3 % Normal 0.2-2.0 [facility] Comment on above: Performed By: #### C MP, LIPA, NESTOR #### [facility] [address] [place] [address] Dr. Joe Shea EO # 0.0 103/ul Normal 0.0-0.7 [facility] Comment on above: Performed By: #### C MP, LIPA, NESTOR #### [facility] [address] [place] [address] Dr. Joe Shea Eosinophils/100 WBC (Bld) 0.2 % Critically low 0.9-7. 0 [facility] Comment on above: Performed By: #### C MP, LIPA, NESTOR #### [facility] [address] [place] [address] Dr. Joe Shea Erythrocyte distribution width (RBC) [Ratio] 13.3 % Normal 11.0-15.0 [facility] Comment on above: Performed By: #### C MP, LIPA, NESTOR #### [facility] [address] [place] [address] Dr. Joe Shea Hematocrit (Bld) [Volume fraction] 39.0 % Normal 36.0-48.0 [facility] Comment on above: Performed By: #### C MP, LIPA, NESTOR #### [facility] [address] [address] [address] Joe Shea Hemoglobin (Bld) [Mass/Vol] 12.7 g/dL Normal 12.0-16.0 [facility] Comment on above: Performed By: #### C MP, LIPA, NESTOR #### [facility] [address] [place] [address] Dr. Joe Shea IG # 0.05 10e3/ul Critically high 0.00-0.03 [facility] Comment on above: Performed By: #### C MP, LIPA, NESTOR #### [facility] [address] [place] [address] Dr. Joe Shea IG % 0.3 % Normal 0.0-0.5 [facility] Comment on above: Performed By: #### C MP, LIPA, NESTOR #### [facility] [address] [place] [address] Dr. Joe Shea LYMPH # 0.8 103/ul Critically low 1.2-3.8 [facility] Comment on above: Performed By: #### C MP, LIPA, NESTOR #### [facility] [address] [place] [address] Dr. Joe Shea Lymphocytes/100 WBC (Bld) 4.4 % Critically low 20.5-6 0.0 [facility] Comment on above: Performed By: #### C MP, LIPA, NESTOR #### [facility] [address] [place] [address] Dr. Joe Shea MANUAL DIFF REQ NO Normal [facility] Comment on above: Performed By: #### C MP, LIPA, NESTOR #### [facility] [address] [place] [address] Dr. Joe Shea MCH (RBC) [Entitic mass] 28.1 pg Normal 26.7-34.0 [facility] Comment on above: Performed By: #### C MP, LIPA, NESTOR #### [facility] [address] [place] [address] Dr. Joe Shea MCHC (RBC) [Mass/Vol] 32.6 g/dL Normal 29.9-35.2 [facility] Comment on above: Performed By: #### C NEAL LIPA, NESTOR #### [facility] [address] [place] [address] Dr. Joe Shea MCV (RBC) [Entitic vol] 86.3 fL Normal 81.0-99.0 [facility] Comment on above: Performed By: #### C NEAL LIPA, NESTOR #### [facility] [address] [place] [address] Dr. Joe Shea MONO # 0.4 103/ul Normal 0.3-0.8 [facility] Comment on above: Performed By: #### C NEAL LIPA, NESTOR #### [facility] [address] [place] [address] Dr. Joe Shea Monocytes/100 WBC (Bld) 2.2 % Normal 1.7-12.0 [facility] Comment on above: Performed By: #### C NEAL LIPA, NESTOR #### [facility] [address] [place] [address] Dr. Joe Shea NEUT # 16.7 103/ul Critically high 1.4-6.5 [facility] Comment on above: Performed By: #### C NEAL LIPA, NESTOR #### [facility] [address] [place] [address] Dr. Joe Shea Neutrophils/100 WBC (Bld) 92.6 % Critically high 43.0- 75.0 [facility] Comment on above: Performed By: #### C MP LIPA, NESTOR #### [facility] [address] [place] [address] Dr. Joe Shea Platelet mean volume (Bld) [Entitic vol] 11.0 fL Normal 9.5-13.5 [facility] Comment on above: Performed By: #### C MP LIPA, NESTOR #### [facility] [address] [place] [address] Dr. Joe Shea PLT 323 103/ul Normal 150-450 [facility] Comment on above: Performed By: #### C NEAL LIPA, NESTOR #### [facility] [address] [place] [address] Dr. Joe Shea RBC 4.52 106/ul Normal 4.20-5.40 [facility] Comment on above: Performed By: #### C CARLYN DE JESUS AMY #### [facility] [address] [place] [address] Dr. Joe Shea WBC 18.0 103/ul Critically high 4.0-11.0 [facility] Comment on above: Performed By: #### C CARLYN DE JESUS AMY #### [facility] [address] [place] [address] Dr. Joe Shea ER URINE PROFILEon 2 Bilirubin Ql (U) Negative Normal NEGATIVE [facility] Comment on above: Performed By: #### Althea GTZ #### [facility] [address] [place] [address] Dr. Joe Shea Clarity (U) CLEAR Normal CLEAR [facility] Comment on above: Performed By: #### Althea GTZ #### [facility] [address] [place] [address] Dr. Joe Shea Color (U) YELLOW Normal YELLOW [facility] Comment on above: Performed By: #### Althea GTZ #### [facility] [address] [place] [address] Dr. Joe YUNG A micrscopic examination will be performed if indicated. Normal [facility] Comment on above: Performed By: #### Althea GTZ #### [facility] [address] [place] [address] Dr. Joe Shea Glucose Ql (U) Negative Normal NEGATIVE [facility] Comment on above: Performed By: #### Althea DURÁNUL #### [facility] [address] [place] [address] Dr. Joe Shea Hemoglobin Ql (U) Negative Normal NEGATIVE [facility] Comment on above: Performed By: #### Althea DURÁNUL #### [facility] [address] [place] [address] Dr. Joe Shea Ketones Ql (U) 15 mg/dl Abnormal NEGATIVE [facility] Comment on above: Performed By: #### Althea GTZ #### [facility] [address] [place] [address] Dr. Joe Shea LEUKOCYTES Negative Normal NEGATIVE [facility] Comment on above: Performed By: #### Althea GTZ #### [facility] [address] [place] [address] Dr. Joe Shea Nitrite Ql (U) Negative Normal NEGATIVE [facility] Comment on above: Performed By: #### Althea GTZ #### [facility] [address] [place] [address] Dr. Joe Shea pH (U) 5.5 [pH] Normal 5-9 [facility] Comment on above: Performed By: #### Althea GTZ #### [facility] [address] [place] [address] Dr. Joe Shea SPEC GRAVITY >=1.030 Abnormal 1.005-<=1.02 5 [facility] Comment on above: Performed By: #### Althea GTZ #### [facility] [address] [place] [address] Dr. Joe Shea UA PROTEIN Negative Normal NEGATIVE/ TRACE [facility] Comment on above: Performed By: #### Althea GTZ #### [facility] [address] [place] [address] Dr. Joe Shea UR MICRO IND NOT INDICATED Normal [facility] Comment on above: Performed By: #### Althea GTZ #### [facility] [address] [place] [address] Dr. Joe Shea Urobilinogen Qn (U) 1.0 {Pascual'U}/dL Normal 0.2 - 1. 0 [facility] Comment on above: Performed By: #### Althea GTZ #### [facility] [address] [place] [address] Dr. Joe Shea LACTATE/LACTIC ACIDon 2021 Lactate [Moles/Vol] 1.0 mmol/L Normal 0.4-1.9 [facility] Comment on above: Performed By: #### Darius BC #### [facility] [address] [place] [address] Dr. Joe Shea LIPASEon 05-22-2022 Lipase [Catalytic activity/Vol] 205.0 U/L Normal 73.0-393.0 [facility] Comment on above: Performed By: #### A MY, CMP, LIPA #### [facility] [address] [place], [place] [address] Dr. Joe Shea MRI BRAIN WO CONon [...] ANGIE LO Date: 2022-05-22 16:17 Normal [facility] URon 05-22-2022 , QUAL Negative Normal NEGATIVE [facility] Comment on above: Performed By: #### Althea GTZ #### [facility] [address] [address] [address] Joe Shea PROF 14(COMP METB)on 022 Albumin [Mass/Vol] 4.5 g/dL Normal 3.4-5.0 [facility] Comment on above: Performed By: #### Althea GTZ #### [facility] [address] [address] [address] Joe Shea Albumin/Globulin [Mass ratio] 1.4 {ratio} Normal [facility] Comment on above: Performed By: #### Althea GTZ #### [facility] [address] [address] [address] Joe Shea ALP [Catalytic activity/Vol] 60 U/L Normal 46-116 [facility] Comment on above: Performed By: #### Althea GTZ #### [facility] [address] [address] [address] Joe Shea ALT [Catalytic activity/Vol] 17 U/L Normal 14-59 [facility] Comment on above: Performed By: #### Althea GTZ #### [facility] [address] [address] [address] Joe Shea Anion gap [Moles/Vol] 10.9 mmol/L Normal Th [facility] Comment on above: Performed By: #### Althea GTZ #### [facility] [address] [address] [address] Joe Shea AST [Catalytic activity/Vol] 19 U/L Normal 15-37 [facility] Comment on above: Performed By: #### Althea GTZ #### [facility] [address] [address] [address] Joe Shea Bilirubin [Mass/Vol] 0.8 mg/dL Normal 0.2-1.0 [facility] Comment on above: Performed By: #### Althea GTZ #### [facility] [address] [address] [address] Joe Shea Calcium [Mass/Vol] 9.0 mg/dL Normal 8.5-10.1 [facility] Comment on above: Performed By: #### Althea GTZ #### [facility] [address] [address] [address] Joe hSea Chloride [Moles/Vol] 102 mmol/L Normal 98-107 [facility] Comment on above: Performed By: #### Althea GTZ #### [facility] [address] [address] [address] Joe Shea CO2 [Moles/Vol] 28.7 mmol/L Normal 21.0-32.0 [facility] Comment on above: Performed By: #### Althea GTZ #### [facility] [address] [address] [address] Joe Shea Creatinine [Mass/Vol] 0.73 mg/dL Normal 0.55-1.02 [facility] Comment on above: Performed By: #### Althea GTZ #### [facility] [address] [address] [address] Joe Shea EGFR-AF KAZAKH >60 Normal >=60 [facility] Comment on above: Performed By: #### Althea GTZ #### [facility] [address] [address] [address] Joe Shea EGFR-NON AF KAZAKH >60 Normal >=60 [facility] Comment on above: Performed By: #### Althea GTZ #### [facility] [address] [address] [address] Joe Shea Globulin (S) [Mass/Vol] 3.2 g/dL Normal [facility] Comment on above: Performed By: #### Althea GTZ #### [facility] [address] [address] [address] Joe Shea Glucose [Mass/Vol] 113 mg/dL Critically high 74-106 [facility] Comment on above: Performed By: #### Althea GTZ #### [facility] [address] [address] [address] Joe Shea Potassium [Moles/Vol] 3.6 mmol/L Normal 3.5-5.1 [facility] Comment on above: Performed By: #### Althea GTZ #### [facility] [address] [address] [address] Joe Shea Protein [Mass/Vol] 7.7 g/dL Normal 6.4-8.2 [facility] Comment on above: Performed By: #### Althea GTZ #### [facility] [address] [address] [address] Joe Shea Sodium [Moles/Vol] 138 mmol/L Normal 136-145 [facility] Comment on above: Performed By: #### Althea GTZ #### [facility] [address] [address] [address] Joe Shea Urea nitrogen [Mass/Vol] 9.0 mg/dL Normal 7.0-18.0 [facility] Comment on above: Performed By: #### D TRESA #### [facility] [address] [place], [place] [address] Dr. Joe Shea Urea nitrogen/Creatinine [Mass ratio] 12.3 mg/mg Normal [facility] Comment on above: Performed By: #### D TRESA #### [facility] [address] [place], [place] [address] Dr. Joe Shea XR CHEST 2 Von [...] by: ANA COTE Date: 2022-05-22 02:56 Normal [facility] PROGESTERONEon 05-08-2022 Progesterone 18.1 ng/mL Normal [facility] Comment on above: Result Comment: Foll icular phase 0.1 - 0.9 Luteal phase 1.8 - 23.9 Ovulation phase 0.1 - 12.0 First trimester 11.0 - 44.3 Second trimester 25.4 - 83.3 Third trimester 58.7 - 214.0 Postmenopausal 0.0 - 0.1 Performed By: #### C BC #### [facility] [address] [place], [place] [address] Dr. Joe Shea DHEA SERUMon 04-12-2022 Dehydroepiandrosterone (DHEA) 577 ng/dL Normal [facility] Comment on above: Result Comment: Age [...] 89 Performed By: #### C BC #### [facility] [address] [place], [place] [address] Dr. Joe Shea PROGESTERONEon 04-10-2022 Progesterone 16.0 ng/mL Normal [facility] [facility] Comment on above: Result Comment: Foll icular phase 0.1 - 0.9 Luteal phase 1.8 - 23.9 Ovulation phase 0.1 - 12.0 First trimester 11.0 - 44.3 Second trimester 25.4 - 83.3 Third trimester 58.7 - 214.0 Postmenopausal 0.0 - 0.1 Performed By: #### Althea GTZ #### [facility] [address] [place] [address] Dr. Joe Shea DHEA-SULFATEon 04-06-2022 DHEA-Sulfate 241.0 ug/dL Normal 110.0-431.7 [facility] Comment on above: Performed By: #### Althea GTZ #### [facility] [address] [place] [address] Dr. Joe Shea FSHon 04-06-2022 FSH 6.6 mIU/mL Normal [facility] Comment on above: Result Comment: Adul t Female: Follicular phase 3.5 - 12.5 Ovulation phase 4.7 - 21.5 Luteal phase 1.7 - 7.7 Postmenopausal 25.8 - 134.8 Performed By: #### Althea GTZ #### [facility] [address] [place] [address] Dr. Joe Shea LUTEINIZING HORMONE (LH)on 1 LH 19.8 mIU/mL Normal [facility] Comment on above: Result Comment: Adul t Female: Follicular phase 2.4 - 12.6 Ovulation phase 14.0 - 95.6 Luteal phase 1.0 - 11.4 Postmenopausal 7.7 - 58.5 Performed By: #### L BCLH #### [facility] [address] [place] [address] Dr. Joe Shea CBC AUTO DIFFon 04-05-2022 BASO # 0.1 103/ul Normal 0.0-0.1 [facility] Comment on above: Performed By: #### C BC #### [facility] [address] [place] [address] Dr. Joe Shea Basophils/100 WBC (Bld) 0.9 % Normal 0.2-2.0 [facility] Comment on above: Performed By: #### C BC #### [facility] [address] [place] [address] Dr. Joe Shea EO # 0.2 103/ul Normal 0.0-0.7 [facility] Comment on above: Performed By: #### C BC #### [facility] [address] [place] [address] Dr. Joe Shea Eosinophils/100 WBC (Bld) 2.6 % Normal 0.9-7.0 [facility] Comment on above: Performed By: #### C BC #### [facility] [address] [place] [address] Dr. Joe Shea Erythrocyte distribution width (RBC) [Ratio] 13.1 % Normal 11.0-15.0 [facility] Comment on above: Performed By: #### C BC #### [facility] [address] [place] [address] Dr. Joe Shea Hematocrit (Bld) [Volume fraction] 38.2 % Normal 36.0-48.0 [facility] Comment on above: Performed By: #### C BC #### [facility] [address] [place] [address] Dr. Joe Shea Hemoglobin (Bld) [Mass/Vol] 12.3 g/dL Normal 12.0-16.0 [facility] Comment on above: Performed By: #### C BC #### [facility] [address] [place] [address] Dr. Joe Shea IG # 0.01 10e3/ul Normal 0.00-0.03 [facility] Comment on above: Performed By: #### C BC #### [facility] [address] [place] [address] Dr. Joe Shea IG % 0.2 % Normal 0.0-0.5 [facility] Comment on above: Performed By: #### C BC #### [facility] [address] [place] [address] Dr. Joe Shea LYMPH # 1.7 103/ul Normal 1.2-3.8 [facility] Comment on above: Performed By: #### C BC #### [facility] [address] [place] [address] Dr. Joe Shea Lymphocytes/100 WBC (Bld) 29.2 % Normal 20.5-60.0 [facility] Comment on above: Performed By: #### C BC #### [facility] [address] [place] [address] Dr. Joe Shea MANUAL DIFF REQ NO Normal [facility] Comment on above: Performed By: #### C BC #### [facility] [address] [place] [address] Dr. Joe Shea MCH (RBC) [Entitic mass] 28.4 pg Normal 26.7-34.0 [facility] Comment on above: Performed By: #### C BC #### [facility] [address] [place] [address] Dr. Joe Shea MCHC (RBC) [Mass/Vol] 32.2 g/dL Normal 29.9-35.2 [facility] Comment on above: Performed By: #### C BC #### [facility] [address] [place] [address] Dr. Joe Shea MCV (RBC) [Entitic vol] 88.2 fL Normal 81.0-99.0 [facility] Comment on above: Performed By: #### C BC #### [facility] [address] [place] [address] Dr. Joe Shea MONO # 0.5 103/ul Normal 0.3-0.8 [facility] Comment on above: Performed By: #### C BC #### [facility] [address] [place] [address] Dr. Joe Shea Monocytes/100 WBC (Bld) 8.2 % Normal 1.7-12.0 [facility] Comment on above: Performed By: #### C BC #### [facility] [address] [place] [address] Dr. Joe Shea NEUT # 3.4 103/ul Normal 1.4-6.5 [facility] Comment on above: Performed By: #### C BC #### [facility] [address] [place] [address] Dr. Joe Shea Neutrophils/100 WBC (Bld) 58.9 % Normal 43.0-75.0 [facility] Comment on above: Performed By: #### C BC #### [facility] [address] [place] [address] Dr. Joe Shea Platelet mean volume (Bld) [Entitic vol] 11.5 fL Normal 9.5-13.5 [facility] Comment on above: Performed By: #### C BC #### [facility] [address] [place] [address] Dr. Joe Shea PLT 233 103/ul Normal 150-450 [facility] Comment on above: Performed By: #### C BC #### [facility] [address] [place] [address] Dr. Joe Shea RBC 4.33 106/ul Normal 4.20-5.40 [facility] Comment on above: Performed By: #### C BC #### [facility] [address] [place] [address] Dr. Joe Shea WBC 5.8 103/ul Normal 4.0-11.0 [facility] Comment on above: Performed By: #### C BC #### [facility] [address] [place] [address] Dr. Joe Shea GLYCOHEMOGLOBIN A1Con 2021 ADA RECOMMENDATION SEE BELOW Normal [facility] Comment on above: Result Comment: ADA RECOMMENDED LIMIT 4.0 - 6.0 ADA THERAPEUTIC TARGET < 7.0 ACTION SUGGESTED > 7.0 Performed By: #### C CARLYN DE JESUS AMY #### [facility] [address] [place] [address] Dr. Joe Shea Glucose [Mass/Vol] 105 mg/dL Normal [facility] Comment on above: Performed By: #### C CARLYN DE JESUS AMY #### [facility] [address] [place] [address] Dr. Joe Shea HbA1c (Bld) [Mass fraction] 5.3 % Normal 4.5-6.2 [facility] Comment on above: Performed By: #### C CARLYN DE JESUS AMY #### [facility] [address] [place] [address] Dr. Joe Shea TSHon 04-05-2022 TSH 0.609 uIU/mL Normal 0.358-3.740 [facility] Comment on above: Performed By: #### C BC #### [facility] [address] [place] [address] Dr. Joe Shea US PELVIS AND TRANSVAGon [...] by: ANGIE MEJIA Date: 2022-04-05 17:23 Normal [facility] AMYLASEon 03-10-2022 Amylase [Catalytic activity/Vol] 64 U/L Normal 25-115 [facility] Comment on above: Performed By: #### C BC #### [facility] [address] [place] [address] Dr. Joe Shea CBC AUTO DIFFon 03-10-2022 BASO # 0.1 103/ul Normal 0.0-0.1 [facility] Comment on above: Performed By: #### C BC #### [facility] [address] [place] [address] Dr. Joe Shea Basophils/100 WBC (Bld) 0.6 % Normal 0.2-2.0 [facility] Comment on above: Performed By: #### C BC #### [facility] [address] [place] [address] Dr. Joe Shea EO # 0.3 103/ul Normal 0.0-0.7 [facility] Comment on above: Performed By: #### C BC #### [facility] [address] [place] [address] Dr. Joe Shea Eosinophils/100 WBC (Bld) 1.7 % Normal 0.9-7.0 [facility] Comment on above: Performed By: #### C BC #### [facility] [address] [place] [address] Dr. Joe Shea Erythrocyte distribution width (RBC) [Ratio] 13.1 % Normal 11.0-15.0 [facility] Comment on above: Performed By: #### C BC #### [facility] [address] [place] [address] Dr. Joe Shea Hematocrit (Bld) [Volume fraction] 37.9 % Normal 36.0-48.0 [facility] Comment on above: Performed By: #### C BC #### [facility] [address] [place] [address] Dr. Joe Shea Hemoglobin (Bld) [Mass/Vol] 12.2 g/dL Normal 12.0-16.0 [facility] Comment on above: Performed By: #### C BC #### [facility] [address] [place] [address] Dr. Joe Shea IG # 0.05 10e3/ul Critically high 0.00-0.03 [facility] Comment on above: Performed By: #### C BC #### [facility] [address] [place] [address] Dr. Joe Shea IG % 0.3 % Normal 0.0-0.5 [facility] Comment on above: Performed By: #### C BC #### [facility] [address] [place] [address] Dr. Joe Shea LYMPH # 4.7 103/ul Critically high 1.2-3.8 [facility] Comment on above: Performed By: #### C BC #### [facility] [address] [place] [address] Dr. Joe Shea Lymphocytes/100 WBC (Bld) 28.3 % Normal 20.5-60.0 [facility] Comment on above: Performed By: #### C BC #### [facility] [address] [place] [address] Dr. Joe Shea MANUAL DIFF REQ NO Normal [facility] Comment on above: Performed By: #### C BC #### [facility] [address] [place] [address] Dr. Joe Shea MCH (RBC) [Entitic mass] 27.9 pg Normal 26.7-34.0 [facility] Comment on above: Performed By: #### C BC #### [facility] [address] [place] [address] Dr. Joe Shea MCHC (RBC) [Mass/Vol] 32.2 g/dL Normal 29.9-35.2 [facility] Comment on above: Performed By: #### C BC #### [facility] [address] [place] [address] Dr. Joe Shea MCV (RBC) [Entitic vol] 86.5 fL Normal 81.0-99.0 [facility] Comment on above: Performed By: #### C BC #### [facility] [address] [place] [address] Dr. Joe Shea MONO # 0.9 103/ul Critically high 0.3-0.8 [facility] Comment on above: Performed By: #### C BC #### [facility] [address] [place] [address] Dr. Joe hSea Monocytes/100 WBC (Bld) 5.5 % Normal 1.7-12.0 [facility] Comment on above: Performed By: #### C BC #### [facility] [address] [place] [address] Dr. Joe Shea NEUT # 10.5 103/ul Critically high 1.4-6.5 [facility] Comment on above: Performed By: #### C BC #### [facility] [address] [place] [address] Dr. Joe Shea Neutrophils/100 WBC (Bld) 63.6 % Normal 43.0-75.0 [facility] Comment on above: Performed By: #### C BC #### [facility] [address] [place] [address] Dr. Joe Shea Platelet mean volume (Bld) [Entitic vol] 11.1 fL Normal 9.5-13.5 [facility] Comment on above: Performed By: #### C BC #### [facility] [address] [place] [address] Dr. Joe Shea PLT 428 103/ul Normal 150-450 [facility] Comment on above: Performed By: #### C BC #### [facility] [address] [place] [address] Dr. Joe Shea RBC 4.38 106/ul Normal 4.20-5.40 [facility] Comment on above: Performed By: #### C BC #### [facility] [address] [place] [address] Dr. Joe Shea WBC 16.6 103/ul Critically high 4.0-11.0 [facility] Comment on above: Performed By: #### C BC #### [facility] [address] [place] [address] ABD/PELV W CONon [...] by: MURALI STRANGE Date: 2022-03-10 16:59 Normal [facility] LIPASEon 03-10-2022 Lipase [Catalytic activity/Vol] 81.0 U/L Normal 73.0-393.0 [facility] Comment on above: Performed By: #### C BC #### [facility] [address] [place] [address] Dr. Joe Shea LIVER PROFILEon 03-10-2022 Albumin [Mass/Vol] 4.2 g/dL Normal 3.4-5.0 [facility] Comment on above: Performed By: #### C BC #### [facility] [address] [place] [address] Dr. Joe Shea Albumin/Globulin [Mass ratio] 1.4 {ratio} Normal [facility] Comment on above: Performed By: #### C BC #### [facility] [address] [place] [address] Dr. Joe Shea ALP [Catalytic activity/Vol] 50 U/L Normal 46-116 [facility] Comment on above: Performed By: #### C BC #### [facility] [address] [place] [address] Dr. Joe Shea ALT [Catalytic activity/Vol] 14 U/L Normal 14-59 [facility] Comment on above: Performed By: #### C BC #### [facility] [address] [place] [address] Dr. Joe Shea AST [Catalytic activity/Vol] 13 U/L Critically low 15-37 [facility] Comment on above: Performed By: #### C BC #### [facility] [address] [place] [address] Dr. Joe Shea BILI, CONJUGATED 0.1 mg/dL Normal 0.0-0.2 [facility] Comment on above: Performed By: #### C BC #### [facility] [address] [place] [address] Dr. Joe Shea Bilirubin [Mass/Vol] 0.3 mg/dL Normal 0.2-1.0 [facility] Comment on above: Performed By: #### C BC #### [facility] [address] [address] [address] Joe Shea Globulin (S) [Mass/Vol] 3.1 g/dL Normal [facility] Comment on above: Performed By: #### C BC #### [facility] [address] [address] [address] Joe Shea Protein [Mass/Vol] 7.3 g/dL Normal 6.4-8.2 [facility] Comment on above: Performed By: #### C BC #### [facility] [address] [place] [address] Dr. Joe Shea PREG HCG QUALon 03-10-2022 , QUAL Negative Normal NEGATIVE [facility] Comment on above: Performed By: #### L BCLH #### [facility] [address] [place] [address] Dr. Joe Shea PROF CHEM 8 (BAS METB)on Anion gap [Moles/Vol] 17.6 mmol/L Normal [facility] Comment on above: Performed By: #### C MP, LIPA, NESTOR #### [facility] [address] [address] [address] Joe Shea Calcium [Mass/Vol] 9.0 mg/dL Normal 8.5-10.1 [facility] Comment on above: Performed By: #### C MP, LIPA, NESTOR #### [facility] [address] [place] [address] Dr. Joe Shea Chloride [Moles/Vol] 102 mmol/L Normal 98-107 [facility] Comment on above: Performed By: #### C MP, LIPA, NESTOR #### [facility] [address] [address] [address] Joe Shea CO2 [Moles/Vol] 23.4 mmol/L Normal 21.0-32.0 [facility] Comment on above: Performed By: #### C MP, LIPA, NESTOR #### [facility] [address] [address] [address] Joe Shea Creatinine [Mass/Vol] 0.84 mg/dL Normal 0.55-1.02 [facility] Comment on above: Performed By: #### C MP, LIPA, NESTOR #### [facility] [address] [address] [address] Joe Shea EGFR-AF KAZAKH >60 Normal >=60 [facility] Comment on above: Performed By: #### C MP, LIPA, NESTOR #### [facility] [address] [address] [address] Joe Shea EGFR-NON AF KAZAKH >60 Normal >=60 [facility] Comment on above: Performed By: #### C MP, LIPA, NESTOR #### [facility] [address] [address] [address] Joe Shea Glucose [Mass/Vol] 149 mg/dL Critically high 74-106 [facility] Comment on above: Performed By: #### C MP, LIPA, NESTOR #### [facility] [address] [address] [address] Joe Shea Potassium [Moles/Vol] 2.9 mmol/L Critically low 3.5-5.1 [facility] Comment on above: Performed By: #### C MP, LIPA, NESTOR #### [facility] [address] [address] [address] Joe Shea Sodium [Moles/Vol] 139 mmol/L Normal 136-145 [facility] Comment on above: Performed By: #### C MP, LIPA, NESTOR #### [facility] [address] [address] [address] Joe Shea Urea nitrogen [Mass/Vol] 11.0 mg/dL Normal 7.0-18.0 [facility] Comment on above: Performed By: #### C MP, LIPA, NESTOR #### [facility] [address] [address] [address] Joe Shea Urea nitrogen/Creatinine [Mass ratio] 13.1 mg/mg Normal [facility] Comment on above: Performed By: #### C CARLYN DE JESUS AMY #### [facility] [address] [address] [address] Joe Shea XR CSPINE 2_3 VIEWSon [...] by: ANGIE MEJIA Date: 2022-01-18 08:03 Normal [facility] C BP Strepon 12-23-2019 C BP Strep This is strictly a screening test for Strep Group A( Streptococcus pyogenes). No other pathogens will be noted. Final Backup plate negative for Group A Streptococus Resulted at [facility] Normal [facility] Comment on above: Performed By: #### B P #### [facility] (DEFAULT) [address] [place] [address] [facility] [address] [place] [address] Ambulatory Patient Education on 12-21-2019 Ambulatory Patient [...] a child 2 years or older. ? [phone] [employer]. [address] [place] [address], [place] [address]. All rights reserved. This information is not intended as a substitute for professional medical care. Always follow your healthcare professional's instructions. Strep today is Negative. Will send for culture to [facility] and notify if it returns positive. Take medication as prescribed. Discontinue for a negative strep culture. Discard and replace toothbrush after taking antibiotics for at least 24 hours. May use xqdg-dke-iidtlyd Tylenol and Motrin for pain relief. May use of pdbp-dcg-yzizwby Chloraseptic throat spray, lozenges, cool or warm [...] tabs, 0 Refill(s), 12/26/19 14:42:00 EDT, Pharmacy: [facility] [id number] [facility] [place] Trackon 12-21-2019 BVO Red Swab # 1 [facility] Comment on above: Performed By: #### O [facility] Tracking Order #### [facility] [address] [place] [address] Urgent Care Office/Clinic No sabiha 12-21-2019 Urgent [...] POC: negative. Swab will be sent to [facility] for culture. We will call if positive and treat appropriately. Additional Vitals Body Mass Index Measured: 18.43 kg/m2 Peripheral Pulse Rate: 111 bpm High Assessment/Plan 1. Sore throat Strep today is Negative. Will send for culture to [facility] and notify if it returns positive. Take medication as prescribed. Discontinue for a negative strep culture. Discard and replace toothbrush after taking antibiotics for at least 24 hours. May use vtrc-jdl-sjqxnts Tylenol and Motrin for pain relief. May use of fxpq-xrx-gatsayz Chloraseptic throat spray, lozenges, cool or warm [...] tabs, 0 Refill(s), 12/26/19 14:42:00 EDT, Pharmacy: [facility] [id number] Physician Comments Centor [...] by Rosa Fitch 12/21/19 15:01 EDT Normal [facility] Vital Signs Date Time Vital Sign Value Performing Clinician Facility 03-28-2023 10:16-0400 Body height 157.48 cm Referring Provider Unknown [id number] [address] [place] Work Phone: 03-28-2023 10:16-0400 Body mass index (BMI) [Ratio] 23.78 kg/m2 Referring Provider Unknown [id number] [address] [place] Work Phone: 03-28-2023 10:16-0400 Body surface area Derived from formula 1.59 m2 Referring Provider Unknown [id number] [address] [place] Work Phone: 03-28-2023 10:16-0400 Body weight 58.97 kg Referring Provider Unknown [id number] [address] [place] Work Phone: 03-28-2023 10:16-0400 Diastolic blood pressure 65 mm[Hg] Referring Provider Unknown [id number] [address] [place] Work Phone: 03-28-2023 10:16-0400 Heart rate 96 /min Referring Provider Unknown [id number] [address] [place] Work Phone: 03-28-2023 10:16-0400 Systolic blood pressure 107 mm[Hg] Referring Provider Unknown [id number] [address] [place] Work Phone: 03-28-2023 10:16-0400 0 1 Referring Provider Unknown [id number] [address] [place] Work Phone: Comment on above: [employer] 02-14-2023 09:15-0400 Body height 154.94 cm Filippo Larson Other [employer] Other 02-14-2023 09:15-0400 Body mass index (BMI) [Ratio] 21.73 kg/m2 Filippo Larson Other [facility] Other 02-14-2023 09:15-0400 Body weight 52.16 kg Filippo Larson Other [facility] Other 02-14-2023 09:15-0400 Diastolic blood pressure 68 mm[Hg] Filippo Larson Other [facility] Other 02-14-2023 09:15-0400 Systolic blood pressure 96 mm[Hg] Filippo Larson Other [facility] Other 07-17-2022 14:26-0500 Blood Pressure Location Mayito OBANDOL [facility] [place] 07-17-2022 14:26-0500 Diastolic blood pressure 70 mm[Hg] Mayito OBANDOL [facility] [place] 07-17-2022 14:26-0500 Heart rate 70 /min Mayito LIM [facility] [place] 07-17-2022 14:26-0500 Respiratory rate 16 /min Mayito OBANDOL [facility] [place] 07-17-2022 14:26-0500 Systolic blood pressure 102 mm[Hg] Mayito LIM [facility] [place] [facility] 03-09-2020 20:24-0400 BP Diastolic 61 mm[Hg] PHYSICIAN NO [facility] 03-09-2020 20:24-0400 BP Systolic 117 mm[Hg] PHYSICIAN NO [facility] 03-09-2020 20:24-0400 Pulse (Heart Rate) 85 /min PHYSICIAN NO [facility] 03-09-2020 20:24-0400 Pulse Oximetry 100 % PHYSICIAN NO [facility] 03-09-2020 20:24-0400 Respiratory Rate 24 /min PHYSICIAN NO [facility] 03-09-2020 18:49-0400 BMI (Body Mass Index) 20 kg/m2 PHYSICIAN NO [facility] 03-09-2020 18:49-0400 Body Temperature 98.7 [degF] PHYSICIAN NO [facility] 03-09-2020 18:49-0400 Body weight 49.7 kg PHYSICIAN NO [facility] 03-09-2020 18:49-0400 Height 157.48 cm PHYSICIAN NO [facility] Encounters Encounter Date Encounter Type Care Provider Facility Start: 07-09-2023 End: 07-09-2023 ambulatory CECIL QUINTANA Not Available Start: 07-08-2023 End: 07-08-2023 ambulatory LYLY SMITH [facility] Start: 07-08-2023 End: 07-08-2023 Office outpatient visit 15 minutes Paulie Cervantes MD Work Phone: [facility] Comment on above: 34 weeks gestation o f (Primary Dx); Poor growth affecting management of mother in third trimester, fetus 1 of multiple gestation; Dichorionic diamniotic twin in third trimester; Anxiety during Start: 07-04-2023 Orders Only Freddy Christensen [facility] Comment on above: Dichorionic diamniot ic [...] new/estab patient 80 min Referring Provider Unknown [id number] [address] [place] Work Phone: Start: 03-28-2023 Patient encounter procedure Referring Provider Unknown [id number] [address] [place] Work Phone: Start: 03-28-2023 ambulatory Ramakrishnanando Schwarz Facility :[facility] Start: 02-14-2023 End: 02-14-2023 ambulatory Filippo Larson Other [employer] Other Start: 02-14-2023 Office outpatient vi sit 15 minutes Filippo Larson [facility] Gastroenterology Start: 11-28-2022 End: 11-28-2022 ambulatory [...] laboratory examination DR CECIL QUINTANA . [facility] Start: 07-06-2022 End: 07-07-[address] CECIL QUINTANA . Facility:[facility] Start: 07-06-2022 End: 07-07-2022 Encounter for preprocedural laboratory examination DR CECIL QUINTANA . Facility:[facility] Start: 06-15-2022 End: 06-16-[address] CECIL QUINTANA . Facility:[facility] Start: 06-11-2022 End: 06-12-2022 ambulatory JUANJOSE VIRAMONTES Facility:[facility] Start: 06-08-2022 ambulatory SUKI CONDE PROVIDER Facility:[facility] Start: 05-31-2022 End: 06-01-[address] CECIL [...] Emergency department patient visit PHYSICIAN KIMI RO [facility] Start: 04-27-2014 End: 04-27-2014 Telephone encounter Noa Dimas MD Work Phone: Reproductive Endocrinology Infertility Procedures Date Procedure Procedure Detail Performing Clinician Start: 10-25-2020 Microscopic observation [Identifier] in Cervix by Cyto stain Freddy Hughes BLOWER FEEDER DYED RAW STOCK Colonoscopy Mayito OBANDOL Dilation and curettage Temo OBANDOL Dilation and curettage Temo douglass NILL Esophagogastroduodenoscopy M ichdemar NILL Excision of cyst of ovary Mi real NILL Laparoscopy Mayito NILL Plan of Treatment Date Care Activity Detail Author Start: 05-28-2032 DTaP,Tdap and Td Vaccines (8 - Td or Tdap) DTaP,Tdap and Td Vaccines (8 - Td or Tdap) [facility] Start: 07-04-2024 End: 07-04-2024 US MFM with or without consult US MFM with or without consult Imaging Routine Dichorionic diamniotic twin in third trimester Poor growth affecting management of mother in third trimester, fetus 1 of multiple gestation Expected: 07/04/2024 (Approximate), Expires: 07/04/2024 [facility] [place] Work Phone: Comment on above: Expected: 07/04/2024 (Approximate), Expires: 07/04/2024 Start: 06-03-2024 Adult BMI Screening Adult BMI Screen ing [facility] Start: 06-03-2024 Tobacco Screening Tobacco Screening [facility] Start: 2024 Screening for Chlamy carroll trachomatis Chlamydia Screening [facility] Start: 10-26-2023 Screening for malign ant neoplasm of cervix Pap Smear [facility] Start: 07-17-2023 End: 07-17-2023 Patient encounter procedure 07/17/2023 9:30 AM EST Appointment [facility] [address] [place] [id number] [facility] Start: 07-08-2023 End: 07-08-2023 Telemedicine consultation with patient 07/08/2023 1:00 PM EST Telemedicine Maternal- Medicine at [facility] [address] [place] [id number] Paulie Cervantes MD [address] [place] [address] Lyly Smith MD [address] [facility] [address] [place] [address] Maternal- Medicine at [facility] Start: 03-01-2023 Influenza vaccination Influenza Vacc ine [facility] Start: 03-01-2021 Influenza vaccination INFLUENZ A (Season Ended) [facility] Start: 02-28-2020 PAP TESTING PAP TESTING [facility] Start: 2018 Urine microalbumin profile DTAP,TDAP,TD (1 - Tdap) [facility] Start: 2017 Adult BMI Follow Up Plan Adult BMI Follow Up Plan [facility] Start: 2017 CHLAMYDIA SCREENING (18-24) CHLAMYDIA SCREENING (18-24) [facility] Start: 2017 GC (GONORRHEA) SCREE KRUNAL (18-24) GC (GONORRHEA) SCREENING (18-24) [facility] Start: 2017 HEPATITIS C SCREENING HEPATITIS C SC REENING [facility] Start: 2017 HIV SCREENING HIV SCREENING [facility] Start: 2011 Adult depression screening assessment DEPRESSION SCREENING [facility] Start: 2010 HPV VACCINE (1 - 2-d ose series) HPV VACCINE (1 - 2-dose series) [facility] Patient Education Anxiety (ED) [facility] Patient referral [facility] Immunizations Immunization Date Immunization Notes Care Provider Fa cility 01-05-2022 influenza virus vaccine, unspecified formulation Freddy Hughes [facility] NEGATED: Highlighted row has not occurred!07-17-2022 influenza virus vaccine, unspecified formulation Mayito LIM [facility] Payers Date Payer Category Payer Unknown 2013 Unknown [facility] [employer] [place] [employer] [id number] 2013-2014 PPO [id number] 1999 Unknown [id number] 2.16.840.1.910101.3.579.2.727 1999 Unknown [id number] 2.16.840.1.475193.3.579.2.727 1999 Unknown [id number] 2.16.840.1.350336.3.579.2.593 1999 Unknown [id number] 2.16.840.1.973310.3.579.2.593 1999 Unknown [id number] 2.16.840.1.471124.3.579.2.593 1999 Unknown [id number] 2.16.840.1.384644.3.579.2.593 1999 Unknown [id number] 2.16.840.1.053257.3.579.2.593 1999 Unknown [id number] 2.16.840.1.113199.3.579.2.593 1999 Unknown [id number] 2.16.840.1.481261.3.579.2.593 1999 Unknown [id number] 2.16.840.1.808169.3.579.2.593 1999 Unknown [id number] 2.16.840.1.863947.3.579.2.593 1999 Unknown [id number] 2.16.840.1.782054.3.579.2.593 1999 Unknown [id number] 2.16.840.1.721043.3.579.2.593 1999 Unknown [id number] 2.16.840.1.866571.3.579.2.593 1999 Unknown [id number] 2.16.840.1.115759.3.579.2.593 1999 Unknown [id number] 2.16.840.1.911118.3.579.2.593 1999 Unknown [id number] 2.16.840.1.318673.3.579.2.593 1999 Unknown [id number] 2.16.840.1.181118.3.579.2.593 1999 Unknown [id number] 2.16.840.1.039581.3.579.2.593 1999 Unknown [id number] 2.16.840.1.297534.3.579.2.593 1999 Unknown [id number] 2.16.840.1.738141.3.579.2.593 1999 Unknown [id number] 2.16.840.1.381065.3.579.2.593 1999 Unknown [id number] 2.16.840.1.951150.3.579.2.593 1999 Unknown [id number] 2.16.840.1.008543.3.579.2.356 1999 Unknown [id number] 2.16.840.1.331473.3.579.2.1259 1999 Unknown [id number] 2.16.840.1.454297.3.579.2.1259 1999 Unknown [id number] 2.16.840.1.119520.3.579.2.1259 1999 Unknown [id number] 2.16.840.1.184090.3.579.2.1259 1999 Unknown [id number] 2.16.840.1.565376.3.579.2.1286 1999 Unknown [id number] 2.16.840.1.528767.3.579.2.1286 1959 Unknown [id number] 1959 Unknown [id number] 1959 Unknown [id number] Self-pay Self Pay [id number] Unknown Self Pay [id number] Social History Date Type Detail Facility Start: 03-09-2020 Tobacco smoking status NHIS Smoker (finding) [facility] Start: 1999 Sex Assigned At Female [facility] Start: 04-12-2014 Tobacco smoking status NHIS Never smoker [facility] Start: 04-12-2014 End: 04-01-2023 Tobacco use and exposure Never used [facility] Start: 04-12-2014 Alcohol intake Current non-dr network specialist of alcohol (finding) [facility] Start: 1999 Sex Assigned At Not on file [facility] Start: 07-17-2022 End: 04-01-2023 Tobacco smoking status Ex-smoker (finding) [facility] Tobacco smoking status Smokeless tobacco user within last 30 days [facility] Start: 06-03-2023 Sex Assigned At Female [facility] Start: 04-01-2023 End: 06-03-2023 No alcohol use No alcohol use [facility] History of tobacco use Cigarette Smoker [facility] Start: 06-03-2023 Alcohol intake Ex-drinker (finding) [facility] Start: 10-25-2020 [facility] Start: 11-22-2022 [facility] NEGATED: Highlighted row Denies History of domestic violence Denies History of domestic violence [id number] [address] [place] Work Phone: Goals Date Patient Goal Desired Activity /State Functional Status Date Assessment Result Facility 07-17-2022 Functional Status N/A [facility] Clinical Notes 04-27-2014 to 07-08-2023 Lyly Smith MD - 07/08/2023 1:00 PM EST Note Date & Type Note Facility 07-08-2023 History of Present illness Narrative Video Visit via Real-time Synchronous Audiovisual Provider Location: [facility]- MEDICINE AT [address] [phone] Patient Location: Patient Location Keno Writer / Runner: None Video Visit Consent Statement: I discussed [...] that there are some limitations compared to [id number] evaluations. We elected to proceed. REASON FOR [...] and B, status post 2nd opinion at [facility] Anxiety/ depression, managed on citalopram 40 [...] and B, status post 2nd opinion at [facility] COUNSELING We reviewed signs symptoms of [...] Serial Doppler studies for growth restriction at [facility] office, Doppler studies remain normal, repeat on 07/17/2023 Delivery scheduled at 37 weeks' gestation with primary OB at local hospital, primary due to male presentation of twin a, breech Patient is scheduled for repeat umbilical artery Doppler assessment in 2 weeks, no future clinic visits with [facility] Thank you for allowing me to participate in Shanon Louise care. If there are any questions, please do not hesitate to call me. Llyy Smith MD Maternal- Medicine [facility] [address] [facility] 1[address] [place] [address] documented in this encounter [facility] 02-14-2023 Evaluation note Encounter Date Diagnosis Assessment [...] needed. Retrun visit here in three months. [facility] Other 01-20-2023 NoteChief Complaint consultation for epigastric [...] Reports colonoscopy completed several years ago at [facility] was normal. History of Present Illness 22 yo female with h/o bipolar disorder, anxiety, migraines, referred for intermittent epigastric and LUQ pain, burning, at times sharp/stabbing; occasional N/V; + boating; no food triggers, occurs celia without eating; no hematemesis or melena; no hematochezia, some constipation, improved with stool softeners; had normal EGD and colonoscopy at [facility] in 2016; abdominal [...] more than 30 da (more content not included)...[facility]:Result Comment: Electronically Signed By: RAPHAEL MACIAS, Mayito Matthews\Date and Time Signed: 07/20/22 14:58 [id number] Note OPERATIVE NOTE OPERATION DATE: 07/10/2021 PROCEDURE: Diagnostic laparoscopy with chromopertubation. PREOPERATIVE DIAGNOSIS: Pelvic pain. POSTOPERATIVE DIAGNOSIS: Pelvic pain, including small endometrial implant posterior cul-de-sac, as well as possible blunted tube on the patient's left side. ANESTHESIA: General. SURGEON: Cecil Quintana D.O. CONTRACTOR FIELD HAULING: ISAURO Mccoy URINE OUTPUT: Yellow and clear. BLOOD LOSS: 5 mL. FINDINGS: Slightly blunted tube on the left side, endometriosis posterior cul-de-sac, otherwise normal appearing uterus, tubes and ovaries. Normal appearing appendix. Some adhesions of the bowel to the pelvic and abdominal side wall on the patient's right side. Normal appearing liver. No evidence of Sjoi-Gdue-Adyjvw syndrome. PROCEDURE: The patient was taken back [...] [facility] NoteOP Note OPERATION DATE: 07/10/2022 PROCEDURE: Diagnostic laparoscopy with chromopertubation. PREOPERATIVE DIAGNOSIS: Pelvic pain, suspected endometriosis, fallopian tube disorder. POSTOPERATIVE DIAGNOSIS: Pelvic pain, suspected endometriosis, fallopian tube disorder, including mild endometriosis, bilateral patent fallopian tubes, small bowel adhesion to the pelvic side wall. ANESTHESIA: General. SURGEON: Cecil Quintana D.O. CONTRACTOR FIELD HAULING: ISAURO Mccoy URINE OUTPUT: Yellow and clear. BLOOD LOSS: 5 mL. ADDENDUM: Please note that chromopertubation was performed after methylene blue was placed through the HUMI manipulator. Spillage of methylene blue could be seen from both tubes.[facility] [id number] Instructions* Patient Instructions* [facility] Jennifer - 04/27/2014 4:49 PM EDT [phone] - Patient mother would like to speak with a nurse concerning medications that her daughter is taking. [facility] N[facility]ative - Reported * the patient is seen at the request of Dr. Gonzales at [facility] for consultation regarding second opinion for placental hemorrhage; EDC 08/15/2023 * FC MA [id number] [address] [place] Work Phone: chijl complaint Narrative - Reported* the patient is seen at the request of Dr. Gonzales at [facility] for consultation regarding second opinion for placental hemorrhage; EDC 08/15/2023 * FC MA [id number] [address] [place] Work Phone: evaluation + Plan note No data available for this section [facility] Evaluation note* Diagnosis Dichorionic diamniotic twin in third trimester- Primary Poor growth affecting management of mother in third trimester, fetus 1 of multiple gestation [facility] this encounter [facility] Diagnosis 34 weeks gestation of - Primary Poor growth affecting management of mother in third trimester, fetus 1 of multiple gestation Dichorionic diamniotic twin in third trimester Anxiety during documented in this encounter [facility] SystemHistory general Narrative - Reported* Type Description Date Medical History Anxiety Medical History GERD (gastroesophageal reflux di sease) Medical History bipolar Surgical History LAPAROSCOPY-times 2 2013 [facility] & CT scans 12/2022 [facility] Other Hospital Discharge instructions No data available for this section [facility] InstructionsNot on filedocumented in this encounter [facility] SystemInstructionsNot on filedocumented in this encounter [facility] SystemProgress note No data available for [...] fetus 1 of multiple gestation Procedures US [facility] with or without consult Amadeo Heaton MD [address] [facility] [address] [place] [address] [facility] Maternal Med [address] [place] [address] Referral ID Status Reason Start Date Expiration Date V isits Requested Visits Authorized [id number] Pending Review 07/04/2023 07/03/2024 1 1 Additional Source Comments INFORMATION SOURCE (unrecogn ized section and content) DATE CREATED AUTHOR 02/04/2020 [facility] DATE CREATED AUTHOR AUTHOR'S ORGANIZ ATION 08/16/2022 [facility] DATE CREATED AUTHOR AUTHOR'S ORGANIZ ATION 12/07/2022 [facility] DATE CREATED AUTHOR AUTHOR'S ORGANIZ ATION 04/06/2023 [facility] DATE CREATED AUTHOR AUTHOR'S ORGANIZ ATION 07/10/2023 [facility] EPIC DATE CREATED AUTHOR AUTHOR'S FRANK ATION 07/12/2023 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 [employer] [facility] provides no warranty or guarantee of the accuracy or completeness of information in this document.
== END 2023-07-16 21:02 | disposition home or self-care (01) ==
LOC: LAB 21:01
PROVIDERS: PCP Family Medicine; Visit Provider Obstetrics & Gynecology
DX: Z34.93 Encounter for supervision of normal pregnancy, unspecified, third trimester (principal)
CPT/HCPCS: 87081

== ENCOUNTER 2023-07-19 07:10 | Outpatient (OUT) | payer OTHER, SELFPAY ==
--- OUTSIDE RECORDS SUMMARY | 2023-07-19 07:12 | XMS_ITS | CCD ---
Author Name Unknown Address [address] [facility] [address] [place] [address] Organization [facility] Care Team Providers Care Manager Fire Name Role Phone NO FAMILY, PHYSICIAN Primary Care Provider UnaNela Roberts Primary Care Provider SUKI CONDE Primary Care Physician AMAYA PROVIDER, SUKI Referring Unavailab le NILL, Mayito Thapa Attending Unavailable AMAYA PROVIDER, SUKI Referring Unavailab le NILLuke, Mayito Thapa Attending Unavailable AMAYA, DR SUKI Kogn Primary Care Unavailable SAMREEN SCHWARZ Admitting Unavailable [...] SUKI Kong Primary Care Unavailable BERTRAND, DR Luke Thapa Consulting Unavailable BERTRAND, DR Luke Thapa Admitting Unavailable BERTRAND, DR Luke Thapa Attending Unavailable AMAYA, DR SUKI Kong Primary Care Unavailable BERTRAND, DR Luke Thapa Admitting Unavailable BERTRAND, DR Luke Thapa Attending Unavailable BERTRAND, DR Luke Thapa Consulting Unavailable ELIZABETH ., DR GATICA [...] Unavailable AMAYA, DR SUKI Kong Attending Unavailable KIRKWOOD, DR ANGIE Arce Consulting Unavailable REQUEST, DR KASSIE LISTED Primary Care Unavaila caitie CONDE, DR SUKI Kong Consulting Unavailable Filippo Larson Unavailable [phone] Unknown, Referring Provider Unavailable Unav ailable Ramakrishna Schwarz Attending Unavailable UNKNOWN, PCP Primary Care Unavailable No Pcp, No Pcp Primary Care Provider UnavailAMADEO Osborn Attending Unavailable ELIZABETH, CECIL R Referring Unavailable NO PCP, NO PCP Primary Care Unavailable LYLY SMITH Attending Unavailable ELIZABETH, CECIL R Referring Unavailable NO PCP, NO PCP Primary Care Unavailable CECIL QUINTANA Attending Unavailable CECIL QUINTANA Attending Unavailable ELIZABETH, CECIL Attending Unavailable DEE, NESTOR Attending Unavailable DEE, NESTOR Attending Unavailable Unavailable Unavailable Unavailable Allergies Allergy Classification Reported Allergen(s) Allergy Type Date of Onset Reaction(s) Facility (1 source) No Known Medication Allergies; Translations: [No Known Medication Allergies] Propensity to adverse reactions (disorder) [facility] Repository Medications Current Medications Medication Drug [...] Status: Ordered take 2 tablets by [facility] once daily at bedtime Elavil 25 [...] 07/17/22 Status: Ordered take 1 tablet by [facility] once daily Zofran 4 MG 1 [...] 2 Episodic Other aftercare (1 source) Other continuous churn [employer] (current) drug therapy; Translations: [OTH [facility] CURRENT DRUG THERAPY] Onset: 3 Episodic Other [...] a) No falls within the last year [id number] [address] [place] Work Phone: Tobacco use status HS a) Yes M G-OBGYN-MAC [address] [place] Work Phone: Blood Pressure Cuff Size Adult [id number] [address] [place] Work Phone: Blood Pressure Cuff Size Yes [id number] 1200 [place] Work Phone: No Panel Informationon 03-28 Normal XS-JFAVQ-CLL 1200 [place] Work Phone: OB Completed scan [...] gestation - rr cfDNA - Referred from [place] because of subchorionic hematomas A targeted anatomic [...] previously been seen by Dr. Gonzales in [place]. Twins are doing well, their growth is [...] EFW (oz) 12 oz EFW by: Hadlock ([id number]) Extended Director Of Adult Epilepsy 5.8 mm CM 3.9 mm 16% Nicolaides [...] mm 61 (more content not included)... Normal [facility] AMYLASEon 10-28-2022 Amylase [Catalytic activity/Vol] 35 U/L Normal 25-115 [facility] Comment on above: Performed By: #### C CARLYN DE JESUS AMY #### [facility] [address] [place] [id number] Joe Shea CBC AUTO DIFFon 10-28-2022 BASO # 0.1 103/ul Normal 0.0-0.1 [facility] Comment on above: Performed By: #### C CARLYN DE JESUS AMY #### [facility] [address] [place], [place] [address] Dr. Joe Shea Basophils/100 WBC (Bld) 0.4 % Normal 0.2-2.0 [facility] Comment on above: Performed By: #### C CARLYN DE JESUS, NESTOR #### [facility] [address] [place] [address] Dr. Joe Shea EO # 0.1 103/ul Normal 0.0-0.7 [facility] Comment on above: Performed By: #### C HUGO DE JESUSA, NESTOR #### [facility] [address] [place] [address] Dr. Joe Shea Eosinophils/100 WBC (Bld) 0.8 % Critically low 0.9-7. 0 [facility] Comment on above: Performed By: #### C HUGO DE JESUSA, NESTOR #### [facility] [address] [place] [address] Dr. Joe Shea Erythrocyte distribution width (RBC) [Ratio] 13.2 % Normal 11.0-15.0 [facility] Comment on above: Performed By: #### C HUGO DE JESUSA, NESTOR #### [facility] [address] [place] [address] Dr. Joe Shea Hematocrit (Bld) [Volume fraction] 37.2 % Normal 36.0-48.0 [facility] Comment on above: Performed By: #### C CARLYN DE JESUS NESTOR #### [facility] [address] [place] [address] Dr. Joe Shea Hemoglobin (Bld) [Mass/Vol] 12.0 g/dL Normal 12.0-16.0 [facility] Comment on above: Performed By: #### C HUGO DE JESUSA, NESTOR #### [facility] [address] [place] [address] Dr. Joe Shea IG # 0.03 10e3/ul Normal 0.00-0.03 [facility] Comment on above: Performed By: #### C CARLYN DE JESUS, NESTOR #### [facility] [address] [place] [address] Dr. Joe Shea IG % 0.2 % Normal 0.0-0.5 [facility] Comment on above: Performed By: #### C HUGO DE JESUSA, NESTOR #### [facility] [address] [place], [place] [id number] Dr. Joe Shea LYMPH # 1.9 103/ul Normal 1.2-3.8 [facility] Comment on above: Performed By: #### C CARLYN DE JESUS, NESTOR #### [facility] [address] [place] [address] Dr. Joe Shea Lymphocytes/100 WBC (Bld) 15.2 % Critically low 20.5-6 0.0 [facility] Comment on above: Performed By: #### C NEAL LIPA, NESTOR #### [facility] [address] [place] [address] Dr. Joe Shea MANUAL DIFF REQ NO Normal [facility] Comment on above: Performed By: #### C NEAL LIPA, NESTOR #### [facility] [address] [place] [address] Dr. Joe Shea MCH (RBC) [Entitic mass] 28.4 pg Normal 26.7-34.0 [facility] Comment on above: Performed By: #### C NEAL LIPA, NESTOR #### [facility] [address] [place] [address] Dr. Joe Shea MCHC (RBC) [Mass/Vol] 32.3 g/dL Normal 29.9-35.2 [facility] Comment on above: Performed By: #### C NEAL LIPA, NESTOR #### [facility] [address] [place] [address] Dr. Joe Shea MCV (RBC) [Entitic vol] 87.9 fL Normal 81.0-99.0 [facility] Comment on above: Performed By: #### C NEAL LIPA, NESTOR #### [facility] [address] [place] [address] Dr. Joe Shea MONO # 0.9 103/ul Critically high 0.3-0.8 [facility] Comment on above: Performed By: #### C NEAL LIPA, NESTOR #### [facility] [address] [place] [address] Dr. Joe Shea Monocytes/100 WBC (Bld) 7.1 % Normal 1.7-12.0 [facility] Comment on above: Performed By: #### C CARLYN DE JESUS NESTOR #### [facility] [address] [place] [address] Dr. Joe Shea NEUT # 9.5 103/ul Critically high 1.4-6.5 [facility] Comment on above: Performed By: #### C CARLYN DE JESUS, NESTOR #### [facility] [address] [place] [address] Dr. Joe Shea Neutrophils/100 WBC (Bld) 76.3 % Critically high 43.0- 75.0 [facility] Comment on above: Performed By: #### C CARLYN DE JESUS, NESTOR #### [facility] [address] [place] [address] Dr. Joe Shea Platelet mean volume (Bld) [Entitic vol] 10.8 fL Normal 9.5-13.5 [facility] Comment on above: Performed By: #### C CARLYN DE JESUS NESTOR #### [facility] [address] [place] [address] Dr. Joe Shea PLT 283 103/ul Normal 150-450 [facility] Comment on above: Performed By: #### C CARLYN DE JESUS, NESTOR #### [facility] [address] [place] [address] Dr. Joe Shea RBC 4.23 106/ul Normal 4.20-5.40 [facility] Comment on above: Performed By: #### C CARLYN DE JESUS NESTOR #### [facility] [address] [place] [address] Dr. Joe Shea WBC 12.5 103/ul Critically high 4.0-11.0 [facility] Comment on above: Performed By: #### C CARLYN DE JESUS, NESTOR #### [facility] [address] [place] [address] ABD/PELV W CONon [...] MISTI BREWER Date: 2022-10-28 18:31 Normal [facility] URINE PROFILEon 3 Bilirubin Ql (U) Negative Normal NEGATIVE [facility] Comment on above: Performed By: #### L BCL #### [facility] [address] [place] [address] Dr. Joe Shea Clarity (U) CLEAR Normal CLEAR [facility] Comment on above: Performed By: #### L BCL #### [facility] [address] [place] [address] Dr. Joe Shea Color (U) LT. YELLOW Normal YELLOW [facility] Comment on above: Performed By: #### L BCL #### [facility] [address] [place] [address] Dr. Joe Shea ERUJUAN MANUELD A micrscopic examination will be performed if indicated. Normal [facility] Comment on above: Performed By: #### L BCL #### [facility] [address] [place] [address] Dr. Joe Shea Glucose Ql (U) Negative Normal NEGATIVE [facility] Comment on above: Performed By: #### L BCL #### [facility] [address] [place] [address] Dr. Joe Shea Hemoglobin Ql (U) Negative Normal NEGATIVE [facility] Comment on above: Performed By: #### L BCL #### [facility] [address] [place] [address] Dr. Joe Shea Ketones Ql (U) Negative Normal NEGATIVE [facility] Comment on above: Performed By: #### L BCLH #### [facility] [address] [place] [address] Dr. Joe Shea LEUKOCYTES TRACE Abnormal NEGATIVE [facility] Comment on above: Performed By: #### L BCL #### [facility] [address] [place] [address] Dr. Joe Shea Nitrite Ql (U) Negative Normal NEGATIVE [facility] Comment on above: Performed By: #### L BCL #### [facility] [address] [place] [address] Dr. Joe Shea pH (U) 8.0 [pH] Normal 5-9 [facility] Comment on above: Performed By: #### L BCL #### [facility] [address] [place] [address] Dr. Joe Shea SPEC GRAVITY 1.015 Normal 1.005-<=1.02 5 [facility] Comment on above: Performed By: #### L BCL #### [facility] [address] [place] [address] Dr. Joe Shea UA PROTEIN Negative Normal NEGATIVE/ TRACE [facility] Comment on above: Performed By: #### L BCL #### [facility] [address] [place] [address] Dr. Joe Shea UR MICRO IND INDICATED Normal [facility] Comment on above: Performed By: #### L BCL #### [facility] [address] [place] [address] Dr. Joe Shea Urobilinogen Qn (U) 2.0 {Pascual'U}/dL Abnormal 0.2 - 1. 0 [facility] Comment on above: Performed By: #### L BCLH #### [facility] [address] [place] [address] Dr. Joe Shea LIPASEon 10-28-2022 Lipase [Catalytic activity/Vol] 93.0 U/L Normal 73.0-393.0 [facility] Comment on above: Performed By: #### C MP, LIPA, NESTOR #### [facility] [address] [place] [address] Dr. Joe Shea URon 10-28-2022 , QUAL Negative Normal NEGATIVE [facility] Comment on above: Performed By: #### L BCLH #### [facility] [address] [place] [address] Dr. Joe Shea PROF 14(COMP METB)on 023 Albumin [Mass/Vol] 4.1 g/dL Normal 3.4-5.0 [facility] Comment on above: Performed By: #### C MP, LIPA, NESTOR #### [facility] [address] [place] [address] Dr. Joe Shea Albumin/Globulin [Mass ratio] 1.2 {ratio} Normal [facility] Comment on above: Performed By: #### C MP, LIPA, NESTOR #### [facility] [address] [place] [address] Dr. Joe Shea ALP [Catalytic activity/Vol] 60 U/L Normal 46-116 [facility] Comment on above: Performed By: #### C MP, LIPA, NESTOR #### [facility] [address] [place] [address] Dr. Joe Shea ALT [Catalytic activity/Vol] 22 U/L Normal 14-59 [facility] Comment on above: Performed By: #### C MP, LIPA, NESTOR #### [facility] [address] [place] [address] Dr. Joe Shea Anion gap [Moles/Vol] 10.2 mmol/L Normal [facility] Comment on above: Performed By: #### C MP, LIPA, NESTOR #### [facility] [address] [place] [address] Dr. Joe Shea AST [Catalytic activity/Vol] 14 U/L Critically low 15-37 [facility] Comment on above: Performed By: #### C MP, LIPA, NESTOR #### [facility] [address] [place] [address] Dr. Joe Shea Bilirubin [Mass/Vol] 0.5 mg/dL Normal 0.2-1.0 [facility] Comment on above: Performed By: #### C MP, LIPA, NESTOR #### [facility] [address] [place] [address] Dr. Joe Shea Calcium [Mass/Vol] 8.9 mg/dL Normal 8.5-10.1 [facility] Comment on above: Performed By: #### C MP, LIPA, NESTOR #### [facility] [address] [place] [address] Dr. Joe Shea Chloride [Moles/Vol] 103 mmol/L Normal 98-107 [facility] Comment on above: Performed By: #### C MP, LIPA, NESTOR #### [facility] [address] [place] [address] Dr. Joe Shea CO2 [Moles/Vol] 28.1 mmol/L Normal 21.0-32.0 [facility] Comment on above: Performed By: #### C MP, LIPA, NESTOR #### [facility] [address] [place] [address] Dr. Joe Shea Creatinine [Mass/Vol] 0.77 mg/dL Normal 0.55-1.02 [facility] Comment on above: Performed By: #### C MP, LIPA, NESTOR #### [facility] [address] [place] [address] Dr. Joe Shea EGFR-AF CITIZEN [place] >60 Normal >=60 [facility] Comment on above: Performed By: #### C MP, LIPA, NESTOR #### [facility] [address] [place] [address] Dr. Joe Shea EGFR-NON AF CITIZEN OF [place] >60 Normal >=60 [facility] Comment on above: Performed By: #### C NEAL LIPA, NESTOR #### [facility] [address] [place] [address] [address] Joe Shea Globulin (S) [Mass/Vol] 3.5 g/dL Normal T [facility] Comment on above: Performed By: #### C MP LIPA, NESTOR #### [facility] [address] [place] [address] [address] Joe Shea Glucose [Mass/Vol] 85 mg/dL Normal 74-106 [facility] Comment on above: Performed By: #### C NEAL LIPA, NESTOR #### [facility] [address] [place] [address] Dr. Joe Shea Potassium [Moles/Vol] 3.3 mmol/L Critically low 3.5-5.1 [facility] Comment on above: Performed By: #### C NEAL LIPA, NESTOR #### [facility] [address] [place] [address] Dr. Joe Shea Protein [Mass/Vol] 7.6 g/dL Normal 6.4-8.2 [facility] Comment on above: Performed By: #### C HUGO DE JESUSA, NESTOR #### [facility] [address] [place] [address] Dr. Joe Shea Sodium [Moles/Vol] 138 mmol/L Normal 136-145 [facility] Comment on above: Performed By: #### C NEAL LIPA, NESTOR #### [facility] [address] [place] [address] Dr. Joe Shea Urea nitrogen [Mass/Vol] 6.0 mg/dL Critically low 7.0-18. 0 [facility] Comment on above: Performed By: #### C NEAL LIPA, NESTOR #### [facility] [address] [place] [address] Dr. Joe Shea Urea nitrogen/Creatinine [Mass ratio] 7.8 mg/mg Normal [facility] Comment on above: Performed By: #### C NEAL LIPA, NESTOR #### [facility] [address] [place] [address] Dr. Joe Shea URINE MICROSCOPIC ONLYon BACTERIA NONE SEEN Normal NONE SEEN [facility] Comment on above: Performed By: #### L BCLH #### [facility] [address] [place] [address] Dr. Joe Shea Bacteria identified Cx Nom (U) NOT INDICATED Normal [facility] Comment on above: Performed By: #### L BCLH #### [facility] [address] [place] [address] Dr. Joe Shea CAST NONE SEEN Normal NONE SEEN [facility] Comment on above: Performed By: #### L BCLH #### [facility] [address] [place] [address] Dr. Joe Shea Crystals LM Nom (Urine sed) NONE SEEN Normal NONE SEEN [facility] Comment on above: Performed By: #### L BCLH #### [facility] [address] [place] [address] Dr. Joe Shea Epithelial cells LM Ql (Urine sed) FEW Abnormal NONE SEEN /RARE [facility] Comment on above: Performed By: #### L BCL #### [facility] [address] [place] [address] Dr. Joe Shea MUCOUS NONE SEEN Normal NONE SEEN [facility] Comment on above: Performed By: #### L BCL #### [facility] [address] [place] [address] Dr. Joe Shea RBC NONE SEEN Abnormal 0-2 [facility] Comment on above: Performed By: #### L BCLH #### [facility] [address] [place] [address] Dr. Joe Shea WBC 0-2 Abnormal NONE SEEN [facility] Comment on above: Performed By: #### L BCLH #### [facility] [address] [place] [address] Dr. Joe Shea LACTOFERRIN FECAL QUANTon Lactoferrin, Fecal, Quant. <1.00 Normal 0.00-7.24 [facility] Comment on above: Result Comment: Re [...] (IBS). Performed By: #### D TRESA #### [facility] [address] [place] [address] Dr. Joe Shea CALPROTECTIN, FECALon 2022 Calprotectin, Fecal 31 ug/g Normal 0-120 [facility] Comment on above: Result Comment: Conc entration Interpretation Follow-Up <16 - 50 ug/g Normal None >50 -120 ug/g Borderline Re-evaluate in 4-6 weeks >120 ug/g Abnormal Repeat as clinically indicated Performed By: #### C MP, LIPA, NESTOR #### [facility] [address] [place] [address] Dr. Joe Shea BOWEL DISORDERS EVALUATION R ULE-OUT CASCon 09-25-2022 Antigliadin 8 units Normal 0-19 [facility] Comment on above: Result Comment: Nega tive 0 - 19 Weak Positive 20 - 30 Moderate to Strong Positive >30 . Performed By: #### C BC #### [facility] [address] [place] [address] Dr. Joe Shea Atypical pANCA Negative Normal Negative The [facility] Comment on above: Performed By: #### C BC #### [facility] [address] [place] [address] Dr. Joe Shea Note: Wetzel continues Normal The [facility] Comment on above: Performed By: #### C BC #### [facility] [address] [place] [address] Dr. Joe Shea Note: Comment Normal [facility] Comment on above: Result Comment: Sugg estive of irritable bowel syndrome (IBS). Careful evaluation of the patient's history, physical examination, and application of Navjot III diagnostic criteria may help to rule in or rule out the diagnosis of IBS. Subsequent testing for Fecal Calprotectin (582030) may be recommended. If IBD is strongly suspected, subsequent testing with the Crohn's Disease Prognostic Profile (889234) that includes anti- glycan antibodies AMCA, ALCA, ACCA, and Zulema may aid in differential diagnosis. Performed By: #### C BC #### [facility] [address] [place] [address] Dr. Joe Shea Saccharomyces Cer. IgG <20.0 Normal 0.0-24.9 [facility] Comment on above: Result Comment: Nega tive <20.0 Equivocal 20.1 - 24.9 Positive >or= 25.0 Performed By: #### C BC #### [facility] [address] [place] [address] Dr. Joe Shea tTG/DGP SCR Negative Normal Negative [facility] Comment on above: Result Comment: Ef fective September 21, 2022 this profile will be made non-orderable due to non-availability of reagents for tTG/DGP Combo. No replacement number is available at this time. For further information, please contact your local [facility]. Performed By: #### C BC #### [facility] [address] [place] [address] Dr. Joe Shea CBC AUTO DIFFon 09-19-2022 BASO # 0.1 103/ul Normal 0.0-0.1 [facility] Comment on above: Performed By: #### D TRESA #### [facility] [address] [place] [address] Dr. Joe Shea Basophils/100 WBC (Bld) 0.9 % Normal 0.2-2.0 [facility] Comment on above: Performed By: #### D LUIS ARMANDOUL #### [facility] [address] [place] [address] Dr. Joe Shea EO # 0.2 103/ul Normal 0.0-0.7 [facility] Comment on above: Performed By: #### D LUIS ARMANDOUL #### [facility] [address] [place] [address] Dr. Joe Shea Eosinophils/100 WBC (Bld) 2.4 % Normal 0.9-7.0 [facility] Comment on above: Performed By: #### Althea GTZ #### [facility] [address] [place] [address] Dr. Joe Shea Erythrocyte distribution width (RBC) [Ratio] 13.2 % Normal 11.0-15.0 [facility] Comment on above: Performed By: #### Althea GTZ #### [facility] [address] [place] [address] Dr. Joe Shea Hematocrit (Bld) [Volume fraction] 38.3 % Normal 36.0-48.0 [facility] Comment on above: Performed By: #### Althea GTZ #### [facility] [address] [place] [address] Dr. Joe Shea Hemoglobin (Bld) [Mass/Vol] 12.3 g/dL Normal 12.0-16.0 [facility] Comment on above: Performed By: #### Althea GTZ #### [facility] [address] [place] [address] Dr. Joe Shea IG # 0.02 10e3/ul Normal 0.00-0.03 [facility] Comment on above: Performed By: #### Althea GTZ #### [facility] [address] [place] [address] Dr. Joe Shea IG % 0.3 % Normal 0.0-0.5 [facility] Comment on above: Performed By: #### Althea GTZ #### [facility] [address] [place] [address] Dr. Joe Shea LYMPH # 1.7 103/ul Normal 1.2-3.8 [facility] Comment on above: Performed By: #### Althea GTZ #### [facility] [address] [place] [address] Dr. Joe Shea Lymphocytes/100 WBC (Bld) 24.6 % Normal 20.5-60.0 [facility] Comment on above: Performed By: #### Althea GTZ #### [facility] [address] [place] [address] Dr. Joe Shea MANUAL DIFF REQ NO Normal [facility] Comment on above: Performed By: #### Althea GTZ #### [facility] [address] [place] [address] [address] Joe Shea MCH (RBC) [Entitic mass] 28.1 pg Normal 26.7-34.0 [facility] Comment on above: Performed By: #### Althea GTZ #### [facility] [address] [place] [address] Dr. Joe Shea MCHC (RBC) [Mass/Vol] 32.1 g/dL Normal 29.9-35.2 [facility] Comment on above: Performed By: #### Althea GTZ #### [facility] [address] [place] [address] Dr. Joe Shea MCV (RBC) [Entitic vol] 87.6 fL Normal 81.0-99.0 [facility] Comment on above: Performed By: #### Althea GTZ #### [facility] [address] [place] [address] Dr. Joe Shea MONO # 0.4 103/ul Normal 0.3-0.8 [facility] Comment on above: Performed By: #### Althea GTZ #### [facility] [address] [place] [address] Dr. Joe Shea Monocytes/100 WBC (Bld) 5.5 % Normal 1.7-12.0 [facility] Comment on above: Performed By: #### Althea GTZ #### [facility] [address] [place] [address] Dr. Joe Shea NEUT # 4.7 103/ul Normal 1.4-6.5 [facility] Comment on above: Performed By: #### Althea GTZ #### [facility] [address] [place] [address] Dr. Joe Shea Neutrophils/100 WBC (Bld) 66.3 % Normal 43.0-75.0 [facility] Comment on above: Performed By: #### Althea GTZ #### [facility] [address] [place] [address] Dr. Joe Shea Platelet mean volume (Bld) [Entitic vol] 11.4 fL Normal 9.5-13.5 [facility] Comment on above: Performed By: #### Althea GTZ #### [facility] [address] [place] [address] Dr. Joe Shea PLT 275 103/ul Normal 150-450 [facility] Comment on above: Performed By: #### Althea GTZ #### [facility] [address] [place] [address] Dr. Joe Shea RBC 4.37 106/ul Normal 4.20-5.40 [facility] Comment on above: Performed By: #### Althea GTZ #### [facility] [address] [place] [address] Dr. Joe Shea WBC 7.0 103/ul Normal 4.0-11.0 [facility] Comment on above: Performed By: #### Althea GTZ #### [facility] [address] [place] [address] Dr. Joe Shea PROF 14(COMP METB)on 023 Albumin [Mass/Vol] 4.4 g/dL Normal 3.4-5.0 [facility] Comment on above: Performed By: #### L DAIN #### [facility] [address] [place] [address] Dr. Joe Shea Albumin/Globulin [Mass ratio] 1.4 {ratio} Normal [facility] Comment on above: Performed By: #### L BCLShyla #### [facility] [address] [place] [address] Dr. Joe Shea ALP [Catalytic activity/Vol] 51 U/L Normal 46-116 [facility] Comment on above: Performed By: #### L DAIN #### [facility] [address] [place] [address] Dr. Joe Shea ALT [Catalytic activity/Vol] 20 U/L Normal 14-59 [facility] Comment on above: Performed By: #### L DAIN #### [facility] [address] [place] [address] Dr. Joe Shea Anion gap [Moles/Vol] 11.7 mmol/L Normal [facility] Comment on above: Performed By: #### L BCLH #### [facility] [address] [place] [address] Dr. Joe Shea AST [Catalytic activity/Vol] 17 U/L Normal 15-37 [facility] Comment on above: Performed By: #### L BCLH #### [facility] [address] [place] [address] Dr. Joe Shea Bilirubin [Mass/Vol] 0.4 mg/dL Normal 0.2-1.0 [facility] Comment on above: Performed By: #### L BCLH #### [facility] [address] [place] [address] Dr. Joe Shea Calcium [Mass/Vol] 9.3 mg/dL Normal 8.5-10.1 [facility] Comment on above: Performed By: #### L BCLH #### [facility] [address] [place] [address] [address] Joe Shea Chloride [Moles/Vol] 104 mmol/L Normal 98-107 [facility] Comment on above: Performed By: #### L BCLH #### [facility] [address] [place] [address] Dr. Joe Shea CO2 [Moles/Vol] 28.5 mmol/L Normal 21.0-32.0 [facility] Comment on above: Performed By: #### L BCLH #### [facility] [address] [place] [address] Dr. Joe Shea Creatinine [Mass/Vol] 0.55 mg/dL Normal 0.55-1.02 [facility] Comment on above: Performed By: #### L BCLH #### [facility] [address] [place] [address] Dr. Joe Shea EGFR-AF CITIZEN [place] >60 Normal >=60 [facility] Comment on above: Performed By: #### L BCLH #### [facility] [address] [place] [address] Dr. Joe Shea EGFR-NON AF CITIZEN OF [place] >60 Normal >=60 [facility] Comment on above: Performed By: #### L BCLH #### [facility] [address] [address] [address] Joe Shea Globulin (S) [Mass/Vol] 3.1 g/dL Normal T [facility] Comment on above: Performed By: #### L BCLH #### [facility] [address] [address] [address] Joe Shea Glucose [Mass/Vol] 90 mg/dL Normal 74-106 [facility] Comment on above: Performed By: #### L BCLH #### [facility] [address] [address] [address] Joe Shea Potassium [Moles/Vol] 4.2 mmol/L Normal 3.5-5.1 [facility] Comment on above: Performed By: #### L BCLH #### [facility] [address] [address] [address] Joe Shea Protein [Mass/Vol] 7.5 g/dL Normal 6.4-8.2 [facility] Comment on above: Performed By: #### L BCL #### [facility] [address] [address] [address] Joe Shea Sodium [Moles/Vol] 140 mmol/L Normal 136-145 [facility] Comment on above: Performed By: #### L BCL #### [facility] [address] [address] [address] Joe Shea Urea nitrogen [Mass/Vol] 6.0 mg/dL Critically low 7.0-18. 0 [facility] Comment on above: Performed By: #### L BCLH #### [facility] [address] [address] [address] Joe Shea Urea nitrogen/Creatinine [Mass ratio] 10.9 mg/mg Normal [facility] Comment on above: Performed By: #### L BCLH #### [facility] [address] [address] [address] Joe Shea PROTIMEon 09-19-2022 INR Coag (PPP) [Relative time] 1.08 {INR} Normal [facility] Comment on above: Performed By: #### L [facility] #### [facility] [address] [place] [address] Dr. Joe Shea INR GUIDELINES SEE BELOW Normal [facility] Comment on above: Result Comment: CHICA RED INR: 2.0 - 3.0 CONDITIONS NOT LISTED BELOW 2.5 - 3.5 FOR PROSTHETIC HEART VALVE REPLACEMENT 2.5 - 3.5 RECURRENT THROMBOSIS Performed By: #### L BARRY #### [facility] [address] [place] [address] Dr. Joe Shea PT Coag (PPP) [Time] 11.4 s Normal 9.0-11.6 [facility] Comment on above: Performed By: #### L BARRY #### [facility] [address] [place] [address] Dr. Joe Shea TSHon 09-19-2022 TSH 0.957 uIU/mL Normal 0.358-3.740 [facility] Comment on above: Performed By: #### L [facility] #### [facility] [address] [place] [address] Dr. Joe Shea Pre-Certification Formon Pre-Certification Form [id number] 269#1.00CD:127 Normal [facility] Consent for Procedure/Surger yon 07-23-2022 Consent for Procedure/Surgery [id number]#[id number]:127 Normal [facility] Facesheeton 07-19-2022 Facesheet [id number] 71#[id number]:127 Normal [facility] CBC AUTO DIFFon 07-06-2022 BASO # 0.1 103/ul Normal 0.0-0.1 [facility] Comment on above: Performed By: #### C MP, LIPA, NESTOR #### [facility] [address] [place] [address] Dr. Joe Shea Basophils/100 WBC (Bld) 0.8 % Normal 0.2-2.0 [facility] Comment on above: Performed By: #### C CARLYN DE JESUS AMY #### [facility] [address] [place] [address] Dr. Joe Shea EO # 0.4 103/ul Normal 0.0-0.7 [facility] Comment on above: Performed By: #### C CARLYN DE JESUS AMY #### [facility] [address] [place] [address] Dr. Joe Shea Eosinophils/100 WBC (Bld) 4.2 % Normal 0.9-7.0 [facility] Comment on above: Performed By: #### C CARLYN DE JESUS AMY #### [facility] [address] [place] [address] Dr. Joe Shea Erythrocyte distribution width (RBC) [Ratio] 13.5 % Normal 11.0-15.0 [facility] Comment on above: Performed By: #### C CARLYN DE JESUS AMY #### [facility] [address] [place] [address] Dr. Joe Shea Hematocrit (Bld) [Volume fraction] 36.8 % Normal 36.0-48.0 [facility] Comment on above: Performed By: #### C CARLYN DE JESUS AMY #### [facility] [address] [place] [address] Dr. Joe Shea Hemoglobin (Bld) [Mass/Vol] 12.2 g/dL Normal 12.0-16.0 [facility] Comment on above: Performed By: #### C CARLYN DE JESUS, NESTOR #### [facility] [address] [place] [address] Dr. Joe Shea IG # 0.02 10e3/ul Normal 0.00-0.03 [facility] Comment on above: Performed By: #### C CARLYN DE JESUS, NESTOR #### [facility] [address] [place] [address] Dr. Joe Shea IG % 0.2 % Normal 0.0-0.5 [facility] Comment on above: Performed By: #### C HUGO DE JESUSA, NESTOR #### [facility] [address] [place] [address] Dr. Joe Shea LYMPH # 2.1 103/ul Normal 1.2-3.8 [facility] Comment on above: Performed By: #### C MP, LIPA, NESTOR #### [facility] [address] [place] [address] Dr. Joe Shea Lymphocytes/100 WBC (Bld) 20.3 % Critically low 20.5-6 0.0 [facility] Comment on above: Performed By: #### C MP, LIPA, NESTOR #### [facility] [address] [place] [address] Dr. Joe Shea MANUAL DIFF REQ NO Normal [facility] Comment on above: Performed By: #### C MP, LIPA, NESTOR #### [facility] [address] [place] [address] Dr. Joe Shea MCH (RBC) [Entitic mass] 28.6 pg Normal 26.7-34.0 [facility] Comment on above: Performed By: #### C MP, LIPA, NESTOR #### [facility] [address] [place] [address] Dr. Joe Shea MCHC (RBC) [Mass/Vol] 33.2 g/dL Normal 29.9-35.2 [facility] Comment on above: Performed By: #### C MP, LIPA, NESTOR #### [facility] [address] [place] [address] Dr. Joe Shea MCV (RBC) [Entitic vol] 86.4 fL Normal 81.0-99.0 [facility] Comment on above: Performed By: #### C MP, LIPA, NESTOR #### [facility] [address] [place] [address] Dr. Joe Shea MONO # 0.6 103/ul Normal 0.3-0.8 [facility] Comment on above: Performed By: #### C MP, LIPA, NESTOR #### [facility] [address] [place] [address] Dr. Joe Shea Monocytes/100 WBC (Bld) 5.5 % Normal 1.7-12.0 [facility] Comment on above: Performed By: #### C CARLYN DE JESUS NESTOR #### [facility] [address] [place] [address] Dr. Joe Shea NEUT # 7.2 103/ul Critically high 1.4-6.5 [facility] Comment on above: Performed By: #### C CARLYN DE JESUS, NESTOR #### [facility] [address] [place] [address] Dr. Joe Shea Neutrophils/100 WBC (Bld) 69.0 % Normal 43.0-75.0 [facility] Comment on above: Performed By: #### C CARLYN DE JESUS NESTOR #### [facility] [address] [place] [address] Dr. Joe Shea Platelet mean volume (Bld) [Entitic vol] 10.8 fL Normal 9.5-13.5 [facility] Comment on above: Performed By: #### C CARLYN DE JESUS, NESTOR #### [facility] [address] [place] [address] Dr. Joe Shea PLT 316 103/ul Normal 150-450 [facility] Comment on above: Performed By: #### C CARLYN DE JESUS, NESTOR #### [facility] [address] [place] [address] Dr. Joe Shea RBC 4.26 106/ul Normal 4.20-5.40 [facility] Comment on above: Performed By: #### C CARLYN DE JESUS, NESTOR #### [facility] [address] [place] [address] Dr. Joe Shea WBC 10.4 103/ul Normal 4.0-11.0 [facility] Comment on above: Performed By: #### C CARLYN DE JESUS, NESTOR #### [facility] [address] [place] [address] Dr. Joe Shea PREG QUANT HCGon 07-06-2022 HCG QUANT <1 Normal [facility] Comment on above: Performed By: #### C CARLYN DE JESUS, NESTOR #### [facility] [address] [place], [place] [address] Dr. Joe Shea HCG RANGE SEE BELOW Normal [facility] Comment on above: Result Comment: 5-50 0.2-1 WEEK 50-500 1-2 WEEKS 100-5,000 2-3 WEEKS 500-10,000 3-4 WEEKS 1,000-50,000 4-5 WEEKS 10,000-100,000 5-6 WEEKS 15,000-200,000 6-8 WEEKS 10,000-100,000 2-3 MONTHS Performed By: #### C CARLYN DE JESUS AMY #### [facility] [address] [place], [place] [address] Dr. Joe Shea HEPATITIS C ANTIBODYon 06-26 Hep C Virus Ab <0.1 Normal 0.0-0.9 The [facility] Comment on above: Result Comment: Nega [...] Hepatitis C Virus (HCV) RNA, Diagnosis, MEGAN (790313) and Hepatitis C Virus (HCV) Antibody with reflex to Quantitative Real-time PCR ([id number]). Performed By: #### L BCL #### [facility] [address] [place], [place] [address] Dr. Joe Shea Covid-19 PCR (CVDTBH)on 05-31 SARS-CoV-2 (COVID-19) RNA MEGAN+probe Ql (Unsp spec) Not detected Normal NOT DETECTED The [facility] Comment on above: Result Comment: This test is not yet approved or cleared by the [place] FDA. When there are no FDA-approved or cleared tests available, and other criteria are met, FDA can make tests available under an emergency access mechanism called an Emergency Use Authorization (EUA). The EUA for this test is supported by the [employer] of Health and Human Service's (HHS's) declaration [...] SARS-CoV-2. Performed By: #### C VDTBH #### [facility] [address] [place] [address] Dr. Joe Shea HEP B SURFACE ANTIGEN SCREEN on 06-12-2022 HBsAg Screen Negative Normal Negative [facility] Comment on above: Performed By: #### D HEASMARICRUZ #### [facility] [address] [place] [address] Dr. Joe Shea HIV 1 AND 2 WITH REFLEXon HIV Screen 4th Generation wRfx Non-Reactive Normal Non Reactive [facility] Comment on above: Result Comment: HIV Negative HIV-1/HIV-2 antibodies and HIV-1 p24 antigen were NOT detected. There is no laboratory evidence of HIV infection. Performed By: #### C NEAL LIPA, NESTOR #### [facility] [address] [place] [address] Dr. Joe Shea RPR QUANTon 06-12-2022 Rapid Plasma Reagin, Quant Non-Reactive Normal NonRea< 1:1 [facility] Comment on above: Result Comment: Plea se Note: This test does not meet current guidelines for screening and diagnosis of syphilis. This test is intended for following treatment response in patients being treated for syphilis infection. To screen for syphilis infection, a reflex cascade that includes both RPR and a treponema-specific assay should be utilized, such as Treponema pallidum (Syphilis) Screening Wetzel (732148) or Rapid Plasma Reagin (RPR) Test With Reflex to Quantitative RPR and Confirmatory Treponema pallidum Antibodies ([id number]). Performed By: #### C MP LIPA, NESTOR #### [facility] [address] [place] [address] Dr. Joe Shea Physician Referralon 022 Physician Referral [id number] A3#1.00CD:127 Normal [facility] US PELVIS AND TRANSVAGon US PELVIS [...] ANGIE MEJIA Date: 2022-05-31 17:18 Normal [facility] AMYLASEon 05-23-2022 Amylase [Catalytic activity/Vol] 24 U/L Critically low 25-115 [facility] Comment on above: Performed By: #### C MP, LIPA, NESTOR #### [facility] [address] [place] [address] Dr. Joe Shea CBC AUTO DIFFon 05-23-2022 Eosinophils/100 WBC (Bld) 1.5 % Normal 0.9-7.0 [facility] Comment on above: Performed By: #### L BCLH #### [facility] [address] [address] [address] Joe Shea Erythrocyte distribution width (RBC) [Ratio] 13.5 % Normal 11.0-15.0 [facility] Comment on above: Performed By: #### L BCLH #### [facility] [address] [place] [address] Dr. Joe Shea Hematocrit (Bld) [Volume fraction] 33.0 % Critically low 36.0-48.0 [facility] Comment on above: Performed By: #### L BCLH #### [facility] [address] [place] [address] Dr. Joe Shea Hemoglobin (Bld) [Mass/Vol] 10.7 g/dL Critically low 12.0-16.0 [facility] Comment on above: Performed By: #### L BCLH #### [facility] [address] [place] [address] Dr. Joe Shea LYMPH # 1.2 103/ul Normal 1.2-3.8 [facility] Comment on above: Performed By: #### L BCLH #### [facility] [address] [place] [address] Dr. Joe Shea Lymphocytes/100 WBC (Bld) 20.2 % Critically low 20.5-6 0.0 [facility] Comment on above: Performed By: #### L BCLH #### [facility] [address] [place] [address] Dr. Joe Shea MCH (RBC) [Entitic mass] 28.0 pg Normal 26.7-34.0 [facility] Comment on above: Performed By: #### L BCLH #### [facility] [address] [place] [address] Dr. Joe Shea MCHC (RBC) [Mass/Vol] 32.4 g/dL Normal 29.9-35.2 [facility] Comment on above: Performed By: #### L BCLH #### [facility] [address] [place] [address] Dr. Joe Shea Monocytes/100 WBC (Bld) 7.9 % Normal 1.7-12.0 [facility] Comment on above: Performed By: #### L BCLH #### [facility] [address] [place] [address] Dr. Joe Shea Neutrophils/100 WBC (Bld) 69.9 % Normal 43.0-75.0 [facility] Comment on above: Performed By: #### L BCLH #### [facility] [address] [place] [address] Dr. Joe Shea Platelet mean volume (Bld) [Entitic vol] 10.6 fL Normal 9.5-13.5 [facility] Comment on above: Performed By: #### L BCLH #### [facility] [address] [place] [address] Dr. Joe Shea PLT 233 103/ul Normal 150-450 [facility] Comment on above: Performed By: #### L BCLH #### [facility] [address] [place] [address] Dr. Joe Shea RBC 3.82 106/ul Critically low 4.20-5.40 [facility] Comment on above: Performed By: #### L BCLH #### [facility] [address] [place] [address] Dr. Joe Shea WBC 6.1 103/ul Normal 4.0-11.0 [facility] Comment on above: Performed By: #### L BCLH #### [facility] [address] [place] [address] Dr. Joe Shea BASO # 0.0 103/ul Normal 0.0-0.1 [facility] Comment on above: Performed By: #### L BCLH #### [facility] [address] [place] [address] Dr. Joe Shea Performed By: #### C CARLYN DE JESUS, NESTOR #### [facility] [address] [place] [address] Dr. Joe Shea Basophils/100 WBC (Bld) 0.3 % Normal 0.2-2.0 [facility] Comment on above: Performed By: #### L BCLH #### [facility] [address] [place] [address] Dr. Joe Shea Performed By: #### C MP, LIPA, NESTOR #### [facility] [address] [place] [address] Dr. Joe Shea EO # 0.1 103/ul Normal 0.0-0.7 [facility] Comment on above: Performed By: #### L BCLH #### [facility] [address] [place] [address] Dr. Joe Shea Performed By: #### C HUGO DE JESUSA, NESTOR #### [facility] [address] [place] [address] Dr. Joe Shea Eosinophils/100 WBC (Bld) 1.9 % Normal 0.9-7.0 [facility] Comment on above: Performed By: #### C NEAL LIPA, NESTOR #### [facility] [address] [place] [address] Dr. Joe Shea Erythrocyte distribution width (RBC) [Ratio] 13.4 % Normal 11.0-15.0 [facility] Comment on above: Performed By: #### C NEAL LIPA, NESTOR #### [facility] [address] [place] [address] Dr. Joe Shea Hematocrit (Bld) [Volume fraction] 32.3 % Critically low 36.0-48.0 [facility] Comment on above: Performed By: #### C NEAL LIPA, NESTOR #### [facility] [address] [place] [address] Dr. Joe Shea Hemoglobin (Bld) [Mass/Vol] 10.6 g/dL Critically low 12.0-16.0 [facility] Comment on above: Performed By: #### C NEAL LIPA, NESTOR #### [facility] [address] [place] [address] Dr. Joe Shea IG # 0.01 10e3/ul Normal 0.00-0.03 [facility] Comment on above: Performed By: #### L BCL #### [facility] [address] [place] [address] Dr. Joe Shea Performed By: #### C NEAL LIPA, NESTOR #### [facility] [address] [place] [address] Dr. Joe Shea IG % 0.2 % Normal 0.0-0.5 [facility] Comment on above: Performed By: #### L BCLShyla #### [facility] [address] [place] [address] Dr. Joe Shea Performed By: #### C NEAL LIPA, NESTOR #### [facility] [address] [place] [address] Dr. Joe Shea LYMPH # 1.0 103/ul Critically low 1.2-3.8 [facility] Comment on above: Performed By: #### C MP, LIPA, NESTOR #### [facility] [address] [place] [address] Dr. Joe Shea Lymphocytes/100 WBC (Bld) 16.6 % Critically low 20.5-6 0.0 [facility] Comment on above: Performed By: #### C MP, LIPA, NESTOR #### [facility] [address] [place] [address] Dr. Joe Shea MANUAL DIFF REQ NO Normal [facility] Comment on above: Performed By: #### L BCLH #### [facility] [address] [place] [address] Dr. Joe Shea Performed By: #### C MP LIPA, NESTOR #### [facility] [address] [place] [address] Dr. Joe Shea MCH (RBC) [Entitic mass] 28.3 pg Normal 26.7-34.0 [facility] Comment on above: Performed By: #### C MP LIPA, NESTOR #### [facility] [address] [place] [address] Dr. Joe Shea MCHC (RBC) [Mass/Vol] 32.8 g/dL Normal 29.9-35.2 [facility] Comment on above: Performed By: #### C MP, LIPA, NESTOR #### [facility] [address] [place] [address] Dr. Joe Shea MCV (RBC) [Entitic vol] 86.4 fL Normal 81.0-99.0 [facility] Comment on above: Performed By: #### L BCLH #### [facility] [address] [place] [address] Dr. Joe Shea Performed By: #### C MP, LIPA, NESTOR #### [facility] [address] [place] [address] Dr. Joe Shea MONO # 0.5 103/ul Normal 0.3-0.8 [facility] Comment on above: Performed By: #### L BCL #### [facility] [address] [place] [address] Dr. Joe Shea Performed By: #### C MP LIPA, NESTOR #### [facility] [address] [place] [address] Dr. Joe Shea Monocytes/100 WBC (Bld) 9.1 % Normal 1.7-12.0 [facility] Comment on above: Performed By: #### C MP, LIPA, NESTOR #### [facility] [address] [place] [address] Dr. Joe Shea NEUT # 4.3 103/ul Normal 1.4-6.5 [facility] Comment on above: Performed By: #### L BARRY #### [facility] [address] [place] [address] Dr. Joe Shea Performed By: #### C MP LIPA, NESTOR #### [facility] [address] [place] [address] Dr. Joe Shea Neutrophils/100 WBC (Bld) 71.9 % Normal 43.0-75.0 [facility] Comment on above: Performed By: #### C MP LIPA, NESTOR #### [facility] [address] [place] [address] Dr. Joe Shea Platelet mean volume (Bld) [Entitic vol] 11.0 fL Normal 9.5-13.5 [facility] Comment on above: Performed By: #### C MP, LIPA, NESTOR #### [facility] [address] [place] [address] Dr. Joe Shea PLT 224 103/ul Normal 150-450 [facility] Comment on above: Performed By: #### C MP, LIPA, NESTOR #### [facility] [address] [place] [address] Dr. Joe Shea RBC 3.74 106/ul Critically low 4.20-5.40 [facility] Comment on above: Performed By: #### C MP, LIPA, NESTOR #### [facility] [address] [place] [address] [address] Joe Shea WBC 5.9 103/ul Normal 4.0-11.0 [facility] Comment on above: Performed By: #### C CARLYN DE JESUS AMY #### [facility] [address] [place] [address] [address] Joe MOORE URINE PROFILEon 2 Bilirubin Ql (U) Negative Normal NEGATIVE [facility] Comment on above: Performed By: #### L BCLH #### [facility] [address] [place] [address] Dr. Joe Shea Clarity (U) CLEAR Normal CLEAR [facility] Comment on above: Performed By: #### L BCLH #### [facility] [address] [place] [address] Dr. Joe Shea Color (U) LT. YELLOW Normal YELLOW [facility] Comment on above: Performed By: #### L BCLH #### [facility] [address] [place] [address] Dr. Joe YUNG A micrscopic examination will be performed if indicated. Normal [facility] Comment on above: Performed By: #### L BCL #### [facility] [address] [place] [address] Dr. Joe Shea Glucose Ql (U) Negative Normal NEGATIVE The [facility] Comment on above: Performed By: #### L BCLH #### [facility] [address] [place] [address] Dr. Joe Shea Hemoglobin Ql (U) Negative Normal NEGATIVE The [facility] Comment on above: Performed By: #### L BCLH #### [facility] [address] [place] [address] Dr. Joe Shea Ketones Ql (U) Negative Normal NEGATIVE The [facility] Comment on above: Performed By: #### L BCLH #### [facility] [address] [place] [address] Dr. Joe Shea LEUKOCYTES Negative Normal NEGATIVE [facility] Comment on above: Performed By: #### L BCLH #### [facility] [address] [place] [address] Dr. Joe Shea Nitrite Ql (U) Negative Normal NEGATIVE The [facility] Comment on above: Performed By: #### L BCL #### [facility] [address] [place] [address] Dr. Joe Shea pH (U) 5.5 [pH] Normal 5-9 [facility] Comment on above: Performed By: #### L BARRY #### [facility] [address] [place] [address] Dr. Joe Shea SPEC GRAVITY 1.020 Normal 1.005-<=1.02 5 [facility] Comment on above: Performed By: #### L BARRY #### [facility] [address] [place] [address] Dr. Joe Shea UA PROTEIN Negative Normal NEGATIVE/ TRACE [facility] Comment on above: Performed By: #### L BARRY #### [facility] [address] [place] [address] Dr. Joe Shea UR MICRO IND NOT INDICATED Normal [facility] Comment on above: Performed By: #### L BARRY #### [facility] [address] [place] [address] Dr. Joe Shea Urobilinogen Qn (U) 0.2 {Pascual'U}/dL Normal 0.2 - 1. 0 [facility] Comment on above: Performed By: #### L BARRYH #### [facility] [address] [place] [address] Dr. Joe Shea LIPASEon 05-23-2022 Lipase [Catalytic activity/Vol] 63.0 U/L Critically low 73.0-393.0 [facility] Comment on above: Performed By: #### C MP, LIPA, NESTOR #### [facility] [address] [place] [address] Dr. Joe Shea URon 05-23-2022 , QUAL Negative Normal NEGATIVE [facility] Comment on above: Performed By: #### C BC #### [facility] [address] [place] [address] Dr. Joe Shea PROF 14(COMP METB)on 022 Albumin [Mass/Vol] 3.7 g/dL Normal 3.4-5.0 [facility] Comment on above: Performed By: #### C CARLYN DE JESUS, NESTOR #### [facility] [address] [address] [address] Joe Shea Albumin/Globulin [Mass ratio] 1.4 {ratio} Normal [facility] Comment on above: Performed By: #### C CARLYN DE JESSU, NESTOR #### [facility] [address] [address] [address] Joe Shea ALP [Catalytic activity/Vol] 44 U/L Critically low 46-116 [facility] Comment on above: Performed By: #### C CARLYN DE JESUS, NESTOR #### [facility] [address] [place] [address] Dr. Joe Shea ALT [Catalytic activity/Vol] 24 U/L Normal 14-59 [facility] Comment on above: Performed By: #### C CARLYN DE JESUS, NESTOR #### [facility] [address] [address] [address] Joe Shea Anion gap [Moles/Vol] 9.1 mmol/L Normal [facility] Comment on above: Performed By: #### C CARLYN DE JESUS, NESTOR #### [facility] [address] [place] [address] Dr. Joe Shea AST [Catalytic activity/Vol] 18 U/L Normal 15-37 [facility] Comment on above: Performed By: #### C CARLYN DE JESUS, NESTOR #### [facility] [address] [address] [address] Joe Shea Bilirubin [Mass/Vol] 0.2 mg/dL Normal 0.2-1.0 [facility] Comment on above: Performed By: #### C CARLYN DE JESUS, NESTOR #### [facility] [address] [address] [address] Joe Shea Calcium [Mass/Vol] 8.3 mg/dL Critically low 8.5-10.1 [facility] Comment on above: Performed By: #### C MP, LIPA, NESTOR #### [facility] [address] [address] [address] Joe Shea Chloride [Moles/Vol] 105 mmol/L Normal 98-107 [facility] Comment on above: Performed By: #### C MP, LIPA, NESTOR #### [facility] [address] [address] [address] Joe Shea CO2 [Moles/Vol] 29.7 mmol/L Normal 21.0-32.0 [facility] Comment on above: Performed By: #### C MP, LIPA, NESTOR #### [facility] [address] [address] [address] Joe Shea Creatinine [Mass/Vol] 0.61 mg/dL Normal 0.55-1.02 [facility] Comment on above: Performed By: #### C MP, LIPA, NESTOR #### [facility] [address] [place] [address] Dr. Joe Shea EGFR-AF CITIZ[place] >60 Normal >=60 [facility] Comment on above: Performed By: #### C MP, LIPA, NESTOR #### [facility] [address] [place] [address] Dr. Joe Shea EGFR-NON AF CITIZEN OF [place] >60 Normal >=60 [facility] Comment on above: Performed By: #### C MP, LIPA, NESTOR #### [facility] [address] [address] [address] Joe Shea Globulin (S) [Mass/Vol] 2.6 g/dL Normal [facility] Comment on above: Performed By: #### C MP, LIPA, NESTOR #### [facility] [address] [place] [address] Dr. Joe Shea Glucose [Mass/Vol] 92 mg/dL Normal 74-106 [facility] Comment on above: Performed By: #### C MP, LIPA, NESTOR #### [facility] [address] [address] [address] Joe Shea Potassium [Moles/Vol] 3.8 mmol/L Normal 3.5-5.1 [facility] Comment on above: Performed By: #### C CARLYN DE JESUS, NESTOR #### [facility] [address] [address] [address] Jeo Shea Protein [Mass/Vol] 6.3 g/dL Critically low 6.4-8.2 [facility] Comment on above: Performed By: #### C CARLYN DE JESUS, NESTOR #### [facility] [address] [address] [address] Joe Shea Sodium [Moles/Vol] 140 mmol/L Normal 136-145 [facility] Comment on above: Performed By: #### C CARLYN DE JESUS, NESTOR #### [facility] [address] [place] [address] Dr. Joe Shea Urea nitrogen [Mass/Vol] 9.0 mg/dL Normal 7.0-18.0 [facility] Comment on above: Performed By: #### C CARLYN DE JESUS, NESTOR #### [facility] [address] [place] [address] Dr. Joe Shea Urea nitrogen/Creatinine [Mass ratio] 14.8 mg/mg Normal [facility] Comment on above: Performed By: #### C CARLYN DE JESUS, NESTOR #### [facility] [address] [place] [address] Dr. Joe Shea US SINGLE QUAD RT [...] SHIRLEY PATEL Date: 2022-05-23 08:29 Normal [facility] AMYLASEon 05-22-2022 Amylase [Catalytic activity/Vol] 50 U/L Normal 25-115 [facility] Comment on above: Performed By: #### A MY, CMP, LIPA #### [facility] [address] [place] [address] Dr. Joe Shea CBC AUTO DIFFon 05-22-2022 BASO # 0.1 103/ul Normal 0.0-0.1 [facility] Comment on above: Performed By: #### C MP LIPA, NESTOR #### [facility] [address] [place] [address] Dr. Joe Shea Basophils/100 WBC (Bld) 0.3 % Normal 0.2-2.0 [facility] Comment on above: Performed By: #### C MP, LIPA, NESTOR #### [facility] [address] [place] [address] Dr. Joe Shea EO # 0.0 103/ul Normal 0.0-0.7 [facility] Comment on above: Performed By: #### C MP LIPA, NESTOR #### [facility] [address] [place] [address] Dr. Joe Shea Eosinophils/100 WBC (Bld) 0.2 % Critically low 0.9-7. 0 [facility] Comment on above: Performed By: #### C MP, LIPA, NESTOR #### [facility] [address] [place] [address] Dr. Joe Shea Erythrocyte distribution width (RBC) [Ratio] 13.3 % Normal 11.0-15.0 [facility] Comment on above: Performed By: #### C MP, LIPA, NESTOR #### [facility] [address] [place] [address] Dr. Joe Shea Hematocrit (Bld) [Volume fraction] 39.0 % Normal 36.0-48.0 [facility] Comment on above: Performed By: #### C MP, LIPA, NESTOR #### [facility] [address] [address] [address] Joe Shea Hemoglobin (Bld) [Mass/Vol] 12.7 g/dL Normal 12.0-16.0 [facility] Comment on above: Performed By: #### C MP, LIPA, NESTOR #### [facility] [address] [place] [address] Dr. Joe Shea IG # 0.05 10e3/ul Critically high 0.00-0.03 [facility] Comment on above: Performed By: #### C MP, LIPA, NESTOR #### [facility] [address] [place] [address] Dr. Joe Shea IG % 0.3 % Normal 0.0-0.5 [facility] Comment on above: Performed By: #### C MP, LIPA, NESTOR #### [facility] [address] [place] [address] Dr. Joe Shea LYMPH # 0.8 103/ul Critically low 1.2-3.8 [facility] Comment on above: Performed By: #### C MP, LIPA, NESTOR #### [facility] [address] [place] [address] Dr. Joe Shea Lymphocytes/100 WBC (Bld) 4.4 % Critically low 20.5-6 0.0 [facility] Comment on above: Performed By: #### C MP, LIPA, NESTOR #### [facility] [address] [place] [address] Dr. Jeo Shea MANUAL DIFF REQ NO Normal [facility] Comment on above: Performed By: #### C MP, LIPA, NESTOR #### [facility] [address] [place] [address] Dr. Joe Shea MCH (RBC) [Entitic mass] 28.1 pg Normal 26.7-34.0 [facility] Comment on above: Performed By: #### C MP, LIPA, NESTOR #### [facility] [address] [place] [address] Dr. Joe Shea MCHC (RBC) [Mass/Vol] 32.6 g/dL Normal 29.9-35.2 [facility] Comment on above: Performed By: #### C HUGO DE JESUSA, NESTOR #### [facility] [address] [place] [address] Dr. Joe Shea MCV (RBC) [Entitic vol] 86.3 fL Normal 81.0-99.0 [facility] Comment on above: Performed By: #### C NEAL LIPA, NESTOR #### [facility] [address] [place] [address] Dr. Joe Shea MONO # 0.4 103/ul Normal 0.3-0.8 [facility] Comment on above: Performed By: #### C NEAL LIPA, NESTOR #### [facility] [address] [place] [address] Dr. Joe Shea Monocytes/100 WBC (Bld) 2.2 % Normal 1.7-12.0 [facility] Comment on above: Performed By: #### C NEAL LIPA, NESTOR #### [facility] [address] [place] [address] Dr. Joe Shea NEUT # 16.7 103/ul Critically high 1.4-6.5 [facility] Comment on above: Performed By: #### C NELA LIPA, NESTOR #### [facility] [address] [place] [address] Dr. Joe Shea Neutrophils/100 WBC (Bld) 92.6 % Critically high 43.0- 75.0 [facility] Comment on above: Performed By: #### C MP LIPA, NESTOR #### [facility] [address] [place] [address] Dr. Joe Shea Platelet mean volume (Bld) [Entitic vol] 11.0 fL Normal 9.5-13.5 [facility] Comment on above: Performed By: #### C MP LIPA, NESTOR #### [facility] [address] [place] [address] Dr. Joe Shea PLT 323 103/ul Normal 150-450 [facility] Comment on above: Performed By: #### C MP LIPA, NESTOR #### [facility] [address] [place] [address] Dr. Joe Shea RBC 4.52 106/ul Normal 4.20-5.40 [facility] Comment on above: Performed By: #### C CARLYN DE JESUS AMY #### [facility] [address] [place] [address] Dr. Joe Shea WBC 18.0 103/ul Critically high 4.0-11.0 [facility] Comment on above: Performed By: #### C CARLYN DE JESUS AMY #### [facility] [address] [place] [address] Dr. Joe Shea ER URINE PROFILEon 2 Bilirubin Ql (U) Negative Normal NEGATIVE [facility] Comment on above: Performed By: #### D TRESA #### [facility] [address] [place] [address] Dr. Joe Shea Clarity (U) CLEAR Normal CLEAR [facility] Comment on above: Performed By: #### Althea GTZ #### [facility] [address] [place] [address] Dr. Joe Shea Color (U) YELLOW Normal YELLOW [facility] Comment on above: Performed By: #### Althea GTZ #### [facility] [address] [place] [address] Dr. Joe YUNG A micrscopic examination will be performed if indicated. Normal [facility] Comment on above: Performed By: #### Althea GTZ #### [facility] [address] [place] [address] Dr. Joe Shea Glucose Ql (U) Negative Normal NEGATIVE The [facility] Comment on above: Performed By: #### Althea GTZ #### [facility] [address] [place] [address] Dr. Joe Shea Hemoglobin Ql (U) Negative Normal NEGATIVE The [facility] Comment on above: Performed By: #### Althea GTZ #### [facility] [address] [place] [address] Dr. Joe Shea Ketones Ql (U) 15 mg/dl Abnormal NEGATIVE The [facility] Comment on above: Performed By: #### Althea GTZ #### [facility] [address] [address] [address] Joe Shea LEUKOCYTES Negative Normal NEGATIVE [facility] Comment on above: Performed By: #### Althea GTZ #### [facility] [address] [address] [address] Joe Shea Nitrite Ql (U) Negative Normal NEGATIVE [facility] Comment on above: Performed By: #### Althea GTZ #### [facility] [address] [place] [address] Dr. Joe Shea pH (U) 5.5 [pH] Normal 5-9 [facility] Comment on above: Performed By: #### Althea GTZ #### [facility] [address] [place] [address] Dr. Joe Shea SPEC GRAVITY >=1.030 Abnormal 1.005-<=1.[address] [place] [address] Comment on above: Performed By: #### Althea GTZ #### [facility] [address] [place] [address] Dr. Joe Shea UA PROTEIN Negative Normal NEGATIVE/ TRACE [facility] Comment on above: Performed By: #### Althea GTZ #### [facility] [address] [place] [address] Dr. Joe Shea UR MICRO IND NOT INDICATED Normal [facility] Comment on above: Performed By: #### Althea GTZ #### [facility] [address] [place] [address] Dr. Joe Shea Urobilinogen Qn (U) 1.0 {Pascual'U}/dL Normal 0.2 - 1. 0 [facility] Comment on above: Performed By: #### Althea GTZ #### [facility] [address] [place] [address] Dr. Joe Shea LACTATE/LACTIC ACIDon 2021 Lactate [Moles/Vol] 1.0 mmol/L Normal 0.4-1.9 [facility] Comment on above: Performed By: #### Darius BC #### [facility] [address] [place] [address] Dr. Joe Shea LIPASEon 05-22-2022 Lipase [Catalytic activity/Vol] 205.0 U/L Normal 73.0-393.0 [facility] Comment on above: Performed By: #### A MY, CMP, LIPA #### [facility] [address] [address] [address] Joe Shea MRI BRAIN WO CONon [...] ANGIE LO Date: 2022-05-22 16:17 Normal [facility] URon 05-22-2022 , QUAL Negative Normal NEGATIVE [facility] Comment on above: Performed By: #### Althea GTZ #### [facility] [address] [place] [address] Dr. Joe Shea PROF 14(COMP METB)on 022 Albumin [Mass/Vol] 4.5 g/dL Normal 3.4-5.0 [facility] Comment on above: Performed By: #### Althea GTZ #### [facility] [address] [place] [address] Dr. Joe Shea Albumin/Globulin [Mass ratio] 1.4 {ratio} Normal [facility] Comment on above: Performed By: #### Althea GTZ #### [facility] [address] [place] [address] Dr. Joe Shea ALP [Catalytic activity/Vol] 60 U/L Normal 46-116 [facility] Comment on above: Performed By: #### Alteha GTZ #### [facility] [address] [place] [address] Dr. Joe Shea ALT [Catalytic activity/Vol] 17 U/L Normal 14-59 [facility] Comment on above: Performed By: #### Althea GTZ #### [facility] [address] [address] [address] Joe Shea Anion gap [Moles/Vol] 10.9 mmol/L Normal [facility] Comment on above: Performed By: #### Althea GTZ #### [facility] [address] [place] [address] Dr. Joe Shea AST [Catalytic activity/Vol] 19 U/L Normal 15-37 [facility] Comment on above: Performed By: #### Althea GTZ #### [facility] [address] [place] [address] Dr. Joe Shea Bilirubin [Mass/Vol] 0.8 mg/dL Normal 0.2-1.0 [facility] Comment on above: Performed By: #### Althea GTZ #### [facility] [address] [place] [address] Dr. Joe Shea Calcium [Mass/Vol] 9.0 mg/dL Normal 8.5-10.1 [facility] Comment on above: Performed By: #### Althea GTZ #### [facility] [address] [place] [address] Dr. Joe Shea Chloride [Moles/Vol] 102 mmol/L Normal 98-107 [facility] Comment on above: Performed By: #### Althea GTZ #### [facility] [address] [place] [address] Dr. Joe Shea CO2 [Moles/Vol] 28.7 mmol/L Normal 21.0-32.0 [facility] Comment on above: Performed By: #### Althea GTZ #### [facility] [address] [place] [address] Dr. Joe Shea Creatinine [Mass/Vol] 0.73 mg/dL Normal 0.55-1.02 [facility] Comment on above: Performed By: #### Althea GTZ #### [facility] [address] [address] [address] Joe Shea EGFR-AF [place]IZ[place] >60 Normal >=60 [facility] Comment on above: Performed By: #### Althea GTZ #### [facility] [address] [address] [address] Joe Shea EGFR-NON AF [place]IZ[place] >60 Normal >=60 [facility] Comment on above: Performed By: #### Althea GTZ #### [facility] [address] [address] [address] Joe Shea Globulin (S) [Mass/Vol] 3.2 g/dL Normal [facility] Comment on above: Performed By: #### Althea GTZ #### [facility] [address] [place] [address] Dr. Joe Shea Glucose [Mass/Vol] 113 mg/dL Critically high 74-106 [facility] Comment on above: Performed By: #### Althea GTZ #### [facility] [address] [address] [address] Joe Shea Potassium [Moles/Vol] 3.6 mmol/L Normal 3.5-5.1 [facility] Comment on above: Performed By: #### Althea GTZ #### [facility] [address] [address] [address] Joe Shea Protein [Mass/Vol] 7.7 g/dL Normal 6.4-8.2 [facility] Comment on above: Performed By: #### Althea GTZ #### [facility] [address] [address] [address] Joe Shea Sodium [Moles/Vol] 138 mmol/L Normal 136-145 [facility] Comment on above: Performed By: #### Althea GTZ #### [facility] [address] [address] [address] Joe Shea Urea nitrogen [Mass/Vol] 9.0 mg/dL Normal 7.0-18.0 [facility] Comment on above: Performed By: #### D TRESA #### [facility] [address] [place], [place] [address] Dr. Joe Shea Urea nitrogen/Creatinine [Mass ratio] 12.3 mg/mg Normal [facility] Comment on above: Performed By: #### Althea GTZ #### [facility] [id number] Joe Shea XR CHEST 2 Von [...] by: ANA COTE Date: 2022-05-22 02:56 Normal [facility] PROGESTERONEon 05-08-2022 Progesterone 18.1 ng/mL Normal [facility] Comment on above: Result Comment: Foll icular phase 0.1 - 0.9 Luteal phase 1.8 - 23.9 Ovulation phase 0.1 - 12.0 First trimester 11.0 - 44.3 Second trimester 25.4 - 83.3 Third trimester 58.7 - 214.0 Postmenopausal 0.0 - 0.1 Performed By: #### C BC #### [facility] [address] [place] [id number] [address] Joe Shea DHEA SERUMon 04-12-2022 Dehydroepiandrosterone (DHEA) 577 ng/dL Normal 70 [facility] Comment on above: Result Comment: Age [...] 89 Performed By: #### C BC #### [facility] [address] [place], [place] [address] Dr. Joe Shea PROGESTERONEon 04-10-2022 Progesterone 16.0 ng/mL Normal [facility] Comment on above: Result Comment: Foll icular phase 0.1 - 0.9 Luteal phase 1.8 - 23.9 Ovulation phase 0.1 - 12.0 First trimester 11.0 - 44.3 Second trimester 25.4 - 83.3 Third trimester 58.7 - 214.0 Postmenopausal 0.0 - 0.1 Performed By: #### Althea GTZ #### [facility] [address] [place] [address] Dr. Joe Shea DHEA-SULFATEon 04-06-2022 DHEA-Sulfate 241.0 ug/dL Normal 110.0-431.7 [facility] Comment on above: Performed By: #### Althea GTZ #### [facility] [address] [place] [address] Dr. Joe Shea FSHon 04-06-2022 FSH 6.6 mIU/mL Normal [facility] Comment on above: Result Comment: Adul t Female: Follicular phase 3.5 - 12.5 Ovulation phase 4.7 - 21.5 Luteal phase 1.7 - 7.7 Postmenopausal 25.8 - 134.8 Performed By: #### Althea GTZ #### [facility] [address] [place] [address] Dr. Joe Shea LUTEINIZING HORMONE (LH)on 1 LH 19.8 mIU/mL Normal [facility] Comment on above: Result Comment: Adul t Female: Follicular phase 2.4 - 12.6 Ovulation phase 14.0 - 95.6 Luteal phase 1.0 - 11.4 Postmenopausal 7.7 - 58.5 Performed By: #### L BCLH #### [facility] [address] [place] [address] Dr. Joe Shea CBC AUTO DIFFon 04-05-2022 BASO # 0.1 103/ul Normal 0.0-0.1 [facility] Comment on above: Performed By: #### C BC #### [facility] [address] [place] [address] Dr. Joe Shea Basophils/100 WBC (Bld) 0.9 % Normal 0.2-2.0 [facility] Comment on above: Performed By: #### C BC #### [facility] [address] [place] [address] Dr. Joe Shea EO # 0.2 103/ul Normal 0.0-0.7 [facility] Comment on above: Performed By: #### C BC #### [facility] [address] [place] [address] Dr. Joe Shea Eosinophils/100 WBC (Bld) 2.6 % Normal 0.9-7.0 [facility] Comment on above: Performed By: #### C BC #### [facility] [address] [place] [address] Dr. Joe Shea Erythrocyte distribution width (RBC) [Ratio] 13.1 % Normal 11.0-15.0 [facility] Comment on above: Performed By: #### C BC #### [facility] [address] [place] [address] Dr. Joe Shea Hematocrit (Bld) [Volume fraction] 38.2 % Normal 36.0-48.0 [facility] Comment on above: Performed By: #### C BC #### [facility] [address] [place] [address] Dr. Joe Shea Hemoglobin (Bld) [Mass/Vol] 12.3 g/dL Normal 12.0-16.0 [facility] Comment on above: Performed By: #### C BC #### [facility] [address] [place] [address] Dr. Joe Shea IG # 0.01 10e3/ul Normal 0.00-0.03 [facility] Comment on above: Performed By: #### C BC #### [facility] [address] [place] [address] Dr. Joe Shea IG % 0.2 % Normal 0.0-0.5 [facility] Comment on above: Performed By: #### C BC #### [facility] [address] [place] [address] Dr. Joe Shea LYMPH # 1.7 103/ul Normal 1.2-3.8 [facility] Comment on above: Performed By: #### C BC #### [facility] [address] [address] [address] Joe Shea Lymphocytes/100 WBC (Bld) 29.2 % Normal 20.5-60.0 [facility] Comment on above: Performed By: #### C BC #### [facility] [address] [address] [address] Joe Shea MANUAL DIFF REQ NO Normal [facility] Comment on above: Performed By: #### C BC #### [facility] [address] [place] [address] Dr. Joe Shae MCH (RBC) [Entitic mass] 28.4 pg Normal 26.7-34.0 [facility] Comment on above: Performed By: #### C BC #### [facility] [address] [place] [address] Dr. Joe Shea MCHC (RBC) [Mass/Vol] 32.2 g/dL Normal 29.9-35.2 [facility] Comment on above: Performed By: #### C BC #### [facility] [address] [place] [address] Dr. Joe Shea MCV (RBC) [Entitic vol] 88.2 fL Normal 81.0-99.0 [facility] Comment on above: Performed By: #### C BC #### [facility] [address] [place] [address] Dr. Joe Shea MONO # 0.5 103/ul Normal 0.3-0.8 [facility] Comment on above: Performed By: #### C BC #### [facility] [address] [place] [address] Dr. Joe Shea Monocytes/100 WBC (Bld) 8.2 % Normal 1.7-12.0 [facility] Comment on above: Performed By: #### C BC #### [facility] [address] [place] [address] Dr. Joe Shea NEUT # 3.4 103/ul Normal 1.4-6.5 [facility] Comment on above: Performed By: #### C BC #### [facility] [address] [address] [address] Joe Shea Neutrophils/100 WBC (Bld) 58.9 % Normal 43.0-75.0 [facility] Comment on above: Performed By: #### C BC #### [facility] [address] [place] [address] Dr. Joe Shea Platelet mean volume (Bld) [Entitic vol] 11.5 fL Normal 9.5-13.5 [facility] Comment on above: Performed By: #### C BC #### [facility] [address] [place] [address] Dr. Joe Shea PLT 233 103/ul Normal 150-450 [facility] Comment on above: Performed By: #### C BC #### [facility] [address] [place] [address] Dr. Joe Shea RBC 4.33 106/ul Normal 4.20-5.40 [facility] Comment on above: Performed By: #### C BC #### [facility] [address] [place] [address] Dr. Joe Shea WBC 5.8 103/ul Normal 4.0-11.0 [facility] Comment on above: Performed By: #### C BC #### [facility] [address] [place] [address] Dr. Joe Shea GLYCOHEMOGLOBIN A1Con 2021 ADA RECOMMENDATION SEE BELOW Normal [facility] Comment on above: Result Comment: ADA RECOMMENDED LIMIT 4.0 - 6.0 ADA THERAPEUTIC TARGET < 7.0 ACTION SUGGESTED > 7.0 Performed By: #### C CARLYN DE JESUS AMY #### [facility] [address] [place] [address] Dr. Joe Shea Glucose [Mass/Vol] 105 mg/dL Normal [facility] Comment on above: Performed By: #### C CARLYN DE JESUS AMY #### [facility] [address] [place] [address] Dr. Joe Shea HbA1c (Bld) [Mass fraction] 5.3 % Normal 4.5-6.2 [facility] Comment on above: Performed By: #### C MP, LIPA, NESTOR #### [facility] [address] [address] [address] Joe Shea TSHon 04-05-2022 TSH 0.609 uIU/mL Normal 0.358-3.740 [facility] Comment on above: Performed By: #### C BC #### [facility] [address] [place] [address] Dr. Joe Shea US PELVIS AND TRANSVAGon [...] by: ANGIE MEJIA Date: 2022-04-05 17:23 Normal [facility] AMYLASEon 03-10-2022 Amylase [Catalytic activity/Vol] 64 U/L Normal 25-115 [facility] Comment on above: Performed By: #### C BC #### [facility] [address] [place] [address] Dr. Joe Shea CBC AUTO DIFFon 03-10-2022 BASO # 0.1 103/ul Normal 0.0-0.1 [facility] Comment on above: Performed By: #### C BC #### [facility] [address] [place] [address] Dr. Joe Shea Basophils/100 WBC (Bld) 0.6 % Normal 0.2-2.0 [facility] Comment on above: Performed By: #### C BC #### [facility] [address] [address] [address] Joe Shea EO # 0.3 103/ul Normal 0.0-0.7 [facility] Comment on above: Performed By: #### C BC #### [facility] [address] [place] [address] Dr. Joe Shea Eosinophils/100 WBC (Bld) 1.7 % Normal 0.9-7.0 [facility] Comment on above: Performed By: #### C BC #### [facility] [address] [place] [address] Dr. Joe Shea Erythrocyte distribution width (RBC) [Ratio] 13.1 % Normal 11.0-15.0 [facility] Comment on above: Performed By: #### C BC #### [facility] [address] [place] [address] Dr. Joe Shea Hematocrit (Bld) [Volume fraction] 37.9 % Normal 36.0-48.0 [facility] Comment on above: Performed By: #### C BC #### [facility] [address] [place] [address] Dr. Joe Shea Hemoglobin (Bld) [Mass/Vol] 12.2 g/dL Normal 12.0-16.0 [facility] Comment on above: Performed By: #### C BC #### [facility] [address] [place] [address] Dr. Joe Shea IG # 0.05 10e3/ul Critically high 0.00-0.03 The [facility] Comment on above: Performed By: #### C BC #### [facility] [address] [place] [address] Dr. Joe Shea IG % 0.3 % Normal 0.0-0.5 [facility] Comment on above: Performed By: #### C BC #### [facility] [address] [place] [address] Dr. Joe Shea LYMPH # 4.7 103/ul Critically high 1.2-3.8 [facility] Comment on above: Performed By: #### C BC #### [facility] [address] [place] [address] Dr. Joe Shea Lymphocytes/100 WBC (Bld) 28.3 % Normal 20.5-60.0 [facility] Comment on above: Performed By: #### C BC #### [facility] [address] [place] [address] Dr. Joe Shea MANUAL DIFF REQ NO Normal [facility] Comment on above: Performed By: #### C BC #### [facility] [address] [place] [address] Dr. Joe Shea MCH (RBC) [Entitic mass] 27.9 pg Normal 26.7-34.0 [facility] Comment on above: Performed By: #### C BC #### [facility] [address] [place] [address] Dr. Joe Shea MCHC (RBC) [Mass/Vol] 32.2 g/dL Normal 29.9-35.2 [facility] Comment on above: Performed By: #### C BC #### [facility] [address] [place] [address] Dr. Joe Shea MCV (RBC) [Entitic vol] 86.5 fL Normal 81.0-99.0 [facility] Comment on above: Performed By: #### C BC #### [facility] [address] [place] [address] Dr. Joe Shea MONO # 0.9 103/ul Critically high 0.3-0.8 [facility] Comment on above: Performed By: #### C BC #### [facility] [address] [place] [address] Dr. Joe Shea Monocytes/100 WBC (Bld) 5.5 % Normal 1.7-12.0 [facility] Comment on above: Performed By: #### C BC #### [facility] [address] [place] [address] Dr. Joe Shea NEUT # 10.5 103/ul Critically high 1.4-6.5 [facility] Comment on above: Performed By: #### C BC #### [facility] [address] [place] [address] Dr. Joe Shea Neutrophils/100 WBC (Bld) 63.6 % Normal 43.0-75.0 [facility] Comment on above: Performed By: #### C BC #### [facility] [address] [place] [address] Dr. Joe Shea Platelet mean volume (Bld) [Entitic vol] 11.1 fL Normal 9.5-13.5 [facility] Comment on above: Performed By: #### C BC #### [facility] [address] [place] [address] Dr. Joe Shea PLT 428 103/ul Normal 150-450 [facility] Comment on above: Performed By: #### C BC #### [facility] [address] [place] [address] Dr. Joe Shea RBC 4.38 106/ul Normal 4.20-5.40 [facility] Comment on above: Performed By: #### C BC #### [facility] [address] [place] [address] Dr. Joe Shea WBC 16.6 103/ul Critically high 4.0-11.0 [facility] Comment on above: Performed By: #### C BC #### [facility] [address] [place] [address] ABD/PELV W CONon [...] by: MURALI STRANGE Date: 2022-03-10 16:59 Normal [facility] LIPASEon 03-10-2022 Lipase [Catalytic activity/Vol] 81.0 U/L Normal 73.0-393.0 [facility] Comment on above: Performed By: #### C BC #### [facility] [address] [place] [address] Dr. Joe Shea LIVER PROFILEon 03-10-2022 Albumin [Mass/Vol] 4.2 g/dL Normal 3.4-5.0 [facility] Comment on above: Performed By: #### C BC #### [facility] [address] [place] [address] Dr. Joe Shea Albumin/Globulin [Mass ratio] 1.4 {ratio} Normal [facility] Comment on above: Performed By: #### C BC #### [facility] [address] [place] [address] Dr. Joe Shea ALP [Catalytic activity/Vol] 50 U/L Normal 46-116 [facility] Comment on above: Performed By: #### C BC #### [facility] [address] [place] [address] Dr. Joe Shea ALT [Catalytic activity/Vol] 14 U/L Normal 14-59 [facility] Comment on above: Performed By: #### C BC #### [facility] [address] [place] [address] Dr. Joe Shea AST [Catalytic activity/Vol] 13 U/L Critically low 15-37 [facility] Comment on above: Performed By: #### C BC #### [facility] [address] [place] [address] Dr. Joe Shea BILI, CONJUGATED 0.1 mg/dL Normal 0.0-0.2 [facility] Comment on above: Performed By: #### C BC #### [facility] [address] [address] [address] Joe Shea Bilirubin [Mass/Vol] 0.3 mg/dL Normal 0.2-1.0 [facility] Comment on above: Performed By: #### C BC #### [facility] [address] [address] [address] Joe Shea Globulin (S) [Mass/Vol] 3.1 g/dL Normal [facility] Comment on above: Performed By: #### C BC #### [facility] [address] [address] [address] Joe Shea Protein [Mass/Vol] 7.3 g/dL Normal 6.4-8.2 [facility] Comment on above: Performed By: #### C BC #### [facility] [address] [address] [address] Joe Shea PREG HCG QUALon 03-10-2022 , QUAL Negative Normal NEGATIVE [facility] Comment on above: Performed By: #### L BCLH #### [facility] [address] [address] [address] Joe Shea PROF CHEM 8 (BAS METB)on Anion gap [Moles/Vol] 17.6 mmol/L Normal [facility] Comment on above: Performed By: #### C MP, LIPA, NESTOR #### [facility] [address] [address] [address] Joe Shea Calcium [Mass/Vol] 9.0 mg/dL Normal 8.5-10.1 [facility] Comment on above: Performed By: #### C MP, LIPA, NESTOR #### [facility] [address] [address] [address] Joe Shea Chloride [Moles/Vol] 102 mmol/L Normal 98-107 [facility] Comment on above: Performed By: #### C MP, LIPA, NESTOR #### [facility] [address] [address] [address] Joe Shea CO2 [Moles/Vol] 23.4 mmol/L Normal 21.0-32.0 [facility] Comment on above: Performed By: #### C MP, LIPA, NESTOR #### [facility] [address] [address] [address] Joe Shea Creatinine [Mass/Vol] 0.84 mg/dL Normal 0.55-1.02 [facility] Comment on above: Performed By: #### C MP, LIPA, NESTOR #### [facility] [address] [address] [address] Joe Shea EGFR-AF CITIZEN [place] >60 Normal >=60 [facility] Comment on above: Performed By: #### C MP, LIPA, NESTOR #### [facility] [address] [address] [address] Joe Shea EGFR-NON AF CITIZEN OF [place] >60 Normal >=60 [facility] Comment on above: Performed By: #### C MP, LIPA, NESTOR #### [facility] [address] [address] [address] Joe Shea Glucose [Mass/Vol] 149 mg/dL Critically high 74-106 [facility] Comment on above: Performed By: #### C MP, LIPA, NESTOR #### [facility] [address] [address] [address] Joe Shea Potassium [Moles/Vol] 2.9 mmol/L Critically low 3.5-5.1 [facility] Comment on above: Performed By: #### C MP, LIPA, NESTOR #### [facility] [address] [address] [address] Joe Shea Sodium [Moles/Vol] 139 mmol/L Normal 136-145 [facility] Comment on above: Performed By: #### C MP, LIPA, NESTOR #### [facility] [address] [address] [address] Joe Shea Urea nitrogen [Mass/Vol] 11.0 mg/dL Normal 7.0-18.0 [facility] Comment on above: Performed By: #### C MP, LIPA, NESTOR #### [facility] [address] [address] [address] Joe Shea Urea nitrogen/Creatinine [Mass ratio] 13.1 mg/mg Normal [facility] Comment on above: Performed By: #### C CARLYN DE JESUS AMY #### [facility] [address] [address] [address] Joe Shea XR CSPINE 2_3 VIEWSon [...] by: ANGIE MEJIA Date: 2022-01-18 08:03 Normal [facility] C BP Strepon 12-23-2019 C BP Strep This is strictly a screening test for Strep Group A( Streptococcus pyogenes). No other pathogens will be noted. Final Backup plate negative for Group A Streptococus Resulted at [facility] Normal [facility] Comment on above: Performed By: #### B P #### [facility] (DEFAULT) [address] [place] [address] [facility] [address] [place] [address] Ambulatory Patient Education on 12-21-2019 Ambulatory Patient [...] a child 2 years or older. ? [id number] [employer]. [address] [place] [address], [place] [address]. All rights reserved. This information is not intended as a substitute for professional medical care. Always follow your healthcare professional's instructions. Strep today is Negative. Will send for culture to [facility] and notify if it returns positive. Take medication as prescribed. Discontinue for a negative strep culture. Discard and replace toothbrush after taking antibiotics for at least 24 hours. May use nzfo-fhr-ykauazq Tylenol and Motrin for pain relief. May use of vzxv-djr-gphitsd Chloraseptic throat spray, lozenges, cool or warm [...] Pharmacy: [facility] [id number] [facility] [place] Trackon 12-21-2019 BVO Red Swab # 1 [facility] Comment on above: Performed By: #### [facility] Tracking Order #### [facility] [address] [place] [address] Urgent Care Office/Clinic No sabiha 12-21-2019 Urgent [...] negative. Swab will be sent to [facility] for culture. We will call if positive and treat appropriately. Additional Vitals Body Mass Index Measured: 18.43 kg/m2 Peripheral Pulse Rate: 111 bpm High Assessment/Plan 1. Sore throat Strep today is Negative. Will send for culture to [facility] and notify if it returns positive. Take medication as prescribed. Discontinue for a negative strep culture. Discard and replace toothbrush after taking antibiotics for at least 24 hours. May use ocxs-vlu-ufidkll Tylenol and Motrin for pain relief. May use of aacj-fvk-hvpkpqo Chloraseptic throat spray, lozenges, cool or warm [...] by Rosa Fitch 12/21/19 15:[address] [facility] Vital Signs Date Time Vital Sign Value Performing Clinician Facility 03-28-2023 10:16-0400 Body height 157.48 cm Referring Provider Unknown [id number] [address] [place] Work Phone: 03-28-2023 10:16-0400 Body mass index (BMI) [Ratio] 23.78 kg/m2 Referring Provider Unknown [id number] [address] [place] Work Phone: 03-28-2023 10:16-0400 Body surface area Derived from formula 1.59 m2 Referring Provider Unknown [id number] [address] [place] Work Phone: 03-28-2023 10:16-0400 Body weight 58.97 kg Referring Provider Unknown [id number] [address] [place] Work Phone: 03-28-2023 10:16-0400 Diastolic blood pressure 65 mm[Hg] Referring Provider Unknown [id number] [address] [place] Work Phone: 03-28-2023 10:16-0400 Heart rate 96 /min Referring Provider Unknown [id number] [address] [place] Work Phone: 03-28-2023 10:16-0400 Systolic blood pressure 107 mm[Hg] Referring Provider Unknown [id number] [address] [place] Work Phone: 03-28-2023 10:16-0400 0 1 Referring Provider Unknown [id number] [address] [place] Work Phone: Comment on above: [facility] 02-14-2023 09:15-0400 Body height 154.94 cm Filippo Larson Other [facility] Other 02-14-2023 09:15-0400 Body mass index (BMI) [Ratio] 21.73 kg/m2 Filippo Larson Other [facility] Other 02-14-2023 09:15-0400 Body weight 52.16 kg Filippo Larson Other [facility] Other 02-14-2023 09:15-0400 Diastolic blood pressure 68 mm[Hg] Filippo Larson Other [facility] Other 02-14-2023 09:15-0400 Systolic blood pressure 96 mm[Hg] Filippo Larson Other [facility] Other 07-17-2022 14:26-0500 Blood Pressure Location Mayito OBANDOL [facility] 07-17-2022 14:26-0500 Diastolic blood pressure 70 mm[Hg] Mayito OBANDOL [facility] 07-17-2022 14:26-0500 Heart rate 70 /min Mayito LIM [facility] 07-17-2022 14:26-0500 Respiratory rate 16 /min Mayito OBANDOL [facility] 07-17-2022 14:26-0500 Systolic blood pressure 102 mm[Hg] Mayito LIM [facility] 03-09-2020 20:24-0400 BP Diastolic 61 mm[Hg] PHYSICIAN NO [facility] 03-09-2020 20:24-0400 BP Systolic 117 mm[Hg] PHYSICIAN NO [facility] 03-09-2020 20:24-0400 Pulse (Heart Rate) 85 /min PHYSICIAN NO [facility] 03-09-2020 20:24-0400 Pulse Oximetry 100 % PHYSICIAN NO [facility] 03-09-2020 20:24-0400 Respiratory Rate 24 /min PHYSICIAN NO [facility] 03-09-2020 18:49-0400 BMI (Body Mass Index) 20 kg/m2 PHYSICIAN NO [facility] 03-09-2020 18:49-0400 Body Temperature 98.7 [degF] PHYSICIAN NO [facility] 03-09-2020 18:49-0400 Body weight 49.7 kg PHYSICIAN NO [facility] 03-09-2020 18:49-0400 Height 157.48 cm PHYSICIAN NO [facility] Encounters Encounter Date Encounter Type Care Provider Facility Start: 07-16-2023 End: 07-16-2023 ambulatory CECIL ELIZABETH Not Available Start: 07-09-2023 End: 07-09-2023 ambulatory CECIL ELIZABETH Not Available Start: 07-08-2023 End: 07-08-2023 ambulatory LYLY [facility] pital Start: 07-08-2023 End: 07-08-2023 Office outpatient visit 15 minutes Paulie Cervantes MD Work Phone: Maternal- Medicine at [facility] Comment on above: 34 weeks gestation o f (Primary Dx); Poor growth affecting management of mother in third trimester, fetus 1 of multiple gestation; Dichorionic diamniotic twin in third trimester; Anxiety during Start: 07-04-2023 Orders Only Freddy Christensen rnal- Medicine at [facility] Comment on above: Dichorionic diamniot ic [...] new/estab patient 80 min Referring Provider Unknown [id number] [address] [place] Work Phone: Start: 03-28-2023 Patient encounter procedure Referring Provider Unknown [id number] [address] [place] Work Phone: Start: 03-28-2023 ambulatory Ramakrishna Schwarz Facility :[facility] Start: 02-14-2023 End: 02-14-2023 ambulatory Filippo Larson Other [facility] Other Start: 02-14-2023 Office outpatient vi sit 15 minutes Filippo Larson [facility] Start: 11-28-2022 End: 11-28-2022 [...] Patient encounter procedure Mayito LIM [facility] Start: 07-10-2022 End: 07-10-[address] CECIL QUINTANA . Facility:[facility] Start: 07-08-2022 Encounter for preprocedural laboratory examination DR CECIL QUINTANA . [facility] Start: 07-06-2022 End: 07-07-[address] CECIL QUINTANA . Facility:[facility] Start: 07-06-2022 End: 07-07-2022 Encounter for preprocedural laboratory examination DR CECIL QUINTANA . Facility:[facility] Start: 06-15-2022 End: 06-16-[address] CECIL QUINTANA . Facility:[facility] Start: 06-11-2022 End: 06-12-2022 ambulatory JUANJOSE VIRAMONTES Facility:[facility] Start: 06-08-2022 ambulatory SUKI CONDE PROVIDER Facility:[facility] Start: 05-31-2022 End: 06-01-[address] CECIL [...] 03-09-2020 Emergency department patient visit PHYSICIAN KIMI [facility]-Emergency Room Start: 04-27-2014 End: 04-27-2014 Telephone encounter Noa Dimas MD Work Phone: Reproductive Endocrinology Infertility Procedures Date Procedure Procedure Detail Performing Clinician Start: 10-25-2020 Microscopic observation [Identifier] in Cervix by Cyto stain Freddy Hughes ELIGIBILITY MANAGER Colonoscopy Mayito NILL Dilation and curettage Temo douglass NILL Dilation and curettage Temo douglass NILL Esophagogastroduodenoscopy M ichdemar NILL Excision of cyst of ovary Mi real NILL Laparoscopy Mayito NILL Plan of Treatment Date Care Activity Detail Author Start: 05-28-2032 DTaP,Tdap and Td Vaccines (8 - Td or Tdap) DTaP,Tdap and Td Vaccines (8 - Td or Tdap) [facility] Start: 07-04-2024 End: 07-04-2024 US MFM with or without consult US MFM with or without consult Imaging Routine Dichorionic diamniotic twin in third trimester Poor growth affecting management of mother in third trimester, fetus 1 of multiple gestation Expected: 07/04/2024 (Approximate), Expires: 07/04/2024 [facility] Work Phone: Comment on above: Expected: 07/04/2024 (Approximate), Expires: 07/04/2024 Start: 06-03-2024 Adult BMI Screening Adult BMI Screen ing [facility] Start: 06-03-2024 Tobacco Screening Tobacco Screening [facility] Start: 2024 Screening for Chlamy carroll trachomatis Chlamydia Screening [facility] Start: 10-26-2023 Screening for malign ant neoplasm of cervix Pap Smear [facility] Start: 07-17-2023 End: 07-17-2023 Patient encounter procedure 07/17/2023 9:30 AM EST Appointment [facility] [address] [place] [address] [facility] Start: 07-08-2023 End: 07-08-2023 Telemedicine consultation with patient 07/08/2023 1:00 PM EST Telemedicine Maternal- Medicine at [facility] [address] [place] [id number] Paulie Cervantes MD [address] [place] [address] Lyly Smith MD [address] [facility] [address] [place] [address] Maternal- Medicine at [facility] Start: 03-01-2023 Influenza vaccination Influenza Vacc ine [facility] Start: 03-01-2021 Influenza vaccination INFLUENZ A (Season Ended) [facility] Start: 02-28-2020 PAP TESTING PAP TESTING [facility] Start: 2018 Urine microalbumin profile DTAP,TDAP,TD (1 - Tdap) [facility] Start: 2017 Adult BMI Follow Up Plan Adult BMI Follow Up Plan [facility] Start: 2017 CHLAMYDIA SCREENING (18-24) CHLAMYDIA SCREENING (18-24) [facility] Start: 2017 GC (GONORRHEA) SCREE KRUNAL (18-24) GC (GONORRHEA) SCREENING (18-24) [facility] Start: 2017 HEPATITIS C SCREENING HEPATITIS C SC REENING [facility] Start: 2017 HIV SCREENING HIV SCREENING [facility] Start: 2011 Adult depression screening assessment DEPRESSION SCREENING [facility] Start: 2010 HPV VACCINE (1 - 2-d ose series) HPV VACCINE (1 - 2-dose series) [facility] Patient Education Anxiety (ED) [facility] Patient referral [facility] Immunizations Immunization Date Immunization Notes Care Provider Fa juan c 01-05-2022 influenza virus vaccine, unspecified formulation Freddy Hughes [facility] NEGATED: Highlighted row has not occurred!07-17-2022 influenza virus vaccine, unspecified formulation Mayito LIM [facility] Payers Date Payer Category Payer Unknown 2013 Unknown [facility] CE PLAN JEMALKYTATO PPO [employer]CT INHEALTH [id number] 2013-2014 PPO [id number] [id number].3.6 [id number] 1999 Unknown [id number] 2.16.840.1.101037.3.579.2.727 1999 Unknown [id number] 2.16.840.1.344375.3.579.2.727 1999 Unknown [id number] 2.16.840.1.374181.3.579.2.593 1999 Unknown [id number] 2.16.840.1.277735.3.579.2.593 1999 Unknown [id number] 2.16.840.1.220645.3.579.2.593 1999 Unknown [id number] 2.16.840.1.593931.3.579.2.593 1999 Unknown [id number] 2.16.840.1.736171.3.579.2.593 1999 Unknown [id number] 2.16.840.1.130820.3.579.2.593 1999 Unknown [id number] 2.16.840.1.444158.3.579.2.593 1999 Unknown [id number] 2.16.840.1.457675.3.579.2.593 1999 Unknown [id number] 2.16.840.1.069910.3.579.2.593 1999 Unknown [id number] 2.16.840.1.433251.3.579.2.593 1999 Unknown [id number] 2.16.840.1.313483.3.579.2.593 1999 Unknown [id number] 2.16.840.1.358086.3.579.2.593 1999 Unknown [id number] 2.16.840.1.734861.3.579.2.593 1999 Unknown [id number] 2.16.840.1.263639.3.579.2.593 1999 Unknown [id number] 2.16.840.1.212803.3.579.2.593 1999 Unknown [id number] 2.16.840.1.815617.3.579.2.593 1999 Unknown [id number] 2.16.840.1.950839.3.579.2.593 1999 Unknown [id number] 2.16.840.1.363576.3.579.2.593 1999 Unknown [id number] 2.16.840.1.832663.3.579.2.593 1999 Unknown [id number] 2.16.840.1.722118.3.579.2.593 1999 Unknown [id number] 2.16.840.1.145365.3.579.2.593 1999 Unknown [id number] 2.16.840.1.513006.3.579.2.356 1999 Unknown [id number] 2.16.840.1.949874.3.579.2.1286 1999 Unknown [id number] 2.16.840.1.585145.3.579.2.1286 1999 Unknown [id number] 2.16.840.1.516275.3.579.2.1259 1999 Unknown [id number] 2.16.840.1.871722.3.579.2.1259 1999 Unknown [id number] 2.16.840.1.797244.3.579.2.1259 1999 Unknown [id number] 2.16.840.1.222804.3.579.2.1259 1999 Unknown [id number] 2.16.840.1.782264.3.579.2.1259 1959 Unknown [id number] 1959 Unknown [id number] 1959 Unknown [id number] Self-pay Self Pay [id number] Unknown Self Pay [id number] Social History Date Type Detail Facility Start: 03-09-2020 Tobacco smoking status NHIS Smoker (finding) [facility] Start: 2000 Sex Assigned At Female [facility] Start: 04-12-2014 Tobacco smoking status NHIS Never smoker [facility] Start: 04-12-2014 End: 04-01-2023 Tobacco use and exposure Never used [facility] Start: 04-12-2014 Alcohol intake Current non-dr sas architect of alcohol (finding) [facility] Start: 2000 Sex Assigned At Not on file [facility] Start: 07-17-2022 End: 04-01-2023 Tobacco smoking status Ex-smoker (finding) [facility] Tobacco smoking status Smokeless tobacco user within last 30 days [facility] Start: 06-03-2023 Sex Assigned At Female [facility] Start: 04-01-2023 End: 06-03-2023 No alcohol use No alcohol use [facility] History of tobacco use Cigarette Smoker [facility] Start: 06-03-2023 Alcohol intake [facility] Start: 10-25-2020 Alcohol Comment [facility] Start: 11-22-2022 [facility] NEGATED: Highlighted row Denies History of domestic violence Denies History of domestic violence [id number] [address] [place] Work Phone: Goals Date Patient Goal Desired Activity /State Functional Status Date Assessment Result Facility 07-17-2022 Functional Status N/A [facility] Clinical Notes 04-27-2014 to 07-08-2023 Lyly Smith MD - 07/08/2023 1:00 PM EST Note Date & Type Note Facility 07-08-2023 History of Present illness Narrative Video Visit via Real-time Synchronous Audiovisual Provider Location: [facility]- MEDICINE AT [address] [address] Patient Location: Patient Location Gis Administrator: None Video Visit Consent Statement: I discussed [...] that there are some limitations compared to [id number]-gm-[id number] evaluations. We elected to proceed. REASON FOR [...] and B, status post 2nd opinion at [facility] Anxiety/ depression, managed on citalopram 40 [...] and B, status post 2nd opinion at [facility] COUNSELING We reviewed signs symptoms of [...] Serial Doppler studies for growth restriction at [facility] office, Doppler studies remain normal, repeat on 07/17/2023 Delivery scheduled at 37 weeks' gestation with primary OB at local hospital, primary due to male presentation of twin a, breech Patient is scheduled for repeat umbilical artery Doppler assessment in 2 weeks, no future clinic visits with [facility] Thank you for allowing me to participate in Shanon Louise care. If there are any questions, please do not hesitate to call me. Lyly Smith MD Maternal- Medicine [facility] [address] [place] [address] documented in this encounter [facility] 02-14-2023 Evaluation note Encounter Date Diagnosis [...] needed. Retrun visit here in three months. [facility] 01-20-2023 NoteChief Complaint consultation for epigastric [...] 30 da (more content not included)...[facility]Result Comment: Electronically Signed By: RAPHAEL MACIAS, Mayito Matthews\Date and Time Signed: 07/20/22 14:58 [id number] Note OPERATIVE NOTE OPERATION DATE: 07/10/2021 PROCEDURE: Diagnostic laparoscopy with chromopertubation. PREOPERATIVE DIAGNOSIS: Pelvic pain. POSTOPERATIVE DIAGNOSIS: Pelvic pain, including small endometrial implant posterior cul-de-sac, as well as possible blunted tube on the patient's left side. ANESTHESIA: General. SURGEON: Cecil Quintana D.O. MANAGER PAID: ISAURO Mccoy URINE OUTPUT: Yellow and clear. BLOOD LOSS: 5 mL. FINDINGS: Slightly blunted tube on the left side, endometriosis posterior cul-de-sac, otherwise normal appearing uterus, tubes and ovaries. Normal appearing appendix. Some adhesions of the bowel to the pelvic and abdominal side wall on the patient's right side. Normal appearing liver. No evidence of Bxzp-Iiuq-Pptbnm syndrome. PROCEDURE: The patient was taken back [...] taken to Recovery Room in stable conditionThe White [id number] NoteOP Note OPERATION DATE: 07/10/2022 PROCEDURE: Diagnostic laparoscopy with chromopertubation. PREOPERATIVE DIAGNOSIS: Pelvic pain, suspected endometriosis, fallopian tube disorder. POSTOPERATIVE DIAGNOSIS: Pelvic pain, suspected endometriosis, fallopian tube disorder, including mild endometriosis, bilateral patent fallopian tubes, small bowel adhesion to the pelvic side wall. ANESTHESIA: General. SURGEON: Cecil Quintana D.O. MANAGER PAID: ISAURO Mccoy URINE OUTPUT: Yellow and clear. BLOOD LOSS: 5 mL. ADDENDUM: Please note that chromopertubation was performed after methylene blue was placed through the HUMI manipulator. Spillage of methylene blue could be seen from both tubes.The White [id number] Instructions* Patient Instructions* Jennifer Lam - 04/27/2014 4:49 PM EDT [phone] - Patient mother would like to speak with a nurse concerning medications that her daughter is taking. [facility] N[facility]ative - Reported * the patient is seen at the request of Dr. Gonzales at [facility] for consultation regarding second opinion for placental hemorrhage; EDC 08/15/2023 * FC MA [id number] [address] [place] Work Phone: chibr complaint Narrative - Reported* the patient is seen at the request of Dr. Gonzales at [facility] for consultation regarding second opinion for placental hemorrhage; EDC 08/15/2023 * FC MA [id number] [address] [place] Work Phone: evaluation + Plan note No data available for this section [facility] Evaluation note* Diagnosis Dichorionic diamniotic twin in third trimester- Primary Poor growth affecting management of mother in third trimester, fetus 1 of multiple gestation [facility] Diagnosis 34 weeks gestation of - Primary Poor growth affecting management of mother in third trimester, fetus 1 of multiple gestation Dichorionic diamniotic twin in third trimester Anxiety during documented in this encounter [facility] Narrative - Reported* Type Description Date Medical History Anxiety Medical History GERD (gastroesophageal reflux di sease) Medical History bipolar Surgical History LAPAROSCOPY-times 2 2013 Hospitalization History [facility] abdominal pain & vomiting - ultrasound & CT scans 12/2022 [facility] Discharge instructions No data available for this section [facility] InstructionsNot on filedocumented in this encounter [facility] SystemInstructionsNot on filedocumented in this encounter [facility] [employer] SystemProgress note No data available for this [...] fetus 1 of multiple gestation Procedures US MF with or without consult Amadeo Heaton MD [address] [place] [address] [facility] [address] [place] [address] Referral ID Status Reason Start Date Expiration Date V isits Requested Visits Authorized [id number] Pending Review 07/04/2023 07/03/2024 1 1 Additional Source Comments INFORMATION SOURCE (unrecogn ized section and content) DATE CREATED AUTHOR 02/04/[address] [facility] DATE CREATED AUTHOR AUTHOR'S ORGANIZ ATION 08/16/2022 [facility] DATE CREATED AUTHOR AUTHOR'S ORGANIZ ATION 12/07/2022 [facility] DATE CREATED AUTHOR AUTHOR'S ORGANIZ ATION 04/06/2023 [facility] DATE CREATED AUTHOR AUTHOR'S ORGANIZ ATION 07/12/2023 [facility] DATE CREATED AUTHOR AUTHOR'S ORGANIZ ATION 07/17/2023 [facility] EPIC Source Comments (unrecognize d section and content) In the event this informatio n is protected by the Federal Confidentiality of Alcohol and Drug Abuse Patient Records regulations: The Federal rules restrict any use of the information to criminally investigate or prosecute any alcohol or drug abuse patient.[facility] Patient Care team informatio n (unrecognized section and content) Manager Fire Relationship Specialty Start Date End Date No Pcp, [place] [address] PCP - General Family Medicine 10/25/20 Manager Fire Relationship Specialty Start Date End Date No Pcp, [place] [address] PCP - General Family Medicine 10/25/20 REASON [...] BE BASED ON THE PRIMARY CLINICAL RECORDS. [employer] [facility]. provides no warranty or guarantee of the accuracy or completeness of information in this document.
--- NOTE | 2023-07-19 09:07 | US_ITS ---
[address] [address] Patient Name: LELIA CONNOLLY MRN: [id number] date: 2000 Sex: F Assigned Patient Location: [facility] Current Patient Location: [facility] Accession/Order Number: [id number] Exam Date: 07/19/2023 09:16 Report Date: 07/19/2023 10:17 At the request of: EN JOHNSON Procedure: US OB BPP w non-stress EXAMINATION: US OB BPP w non-stress HISTORY: LGA COMPARISON: No relevant comparison available. TECHNIQUE: Ultrasound biophysical profile was performed in the radiology department. non-reactive stress testing was performed by nursing staff in the birthing center FINDINGS: BABY A BREATHING MOVEMENTS: 2.0 GROSS BODY MOVEMENTS: 2.0 TONE: 2.0 QUALITATIVE AMNIOTIC FLUID VOLUME:2 Largest fluid pocket: 3.8 x 4.6 cm PRESENTATION: CEPHALIC HEART RATE: 130.4 bpm AMNIOTIC FLUID VOLUME: 2.0 GESTATIONAL AGE: 36 weeks 1 days BABY B BREATHING MOVEMENTS: 2.0 GROSS BODY MOVEMENTS: 2.0 TONE: 2.0 QUALITATIVE AMNIOTIC FLUID VOLUME:2 Largest fluid pocket: 3.7 x 3.1 cm PRESENTATION: CEPHALIC HEART RATE: 131.7 bpm AMNIOTIC FLUID VOLUME: 2.0 GESTATIONAL AGE: 36 weeks 1 days CONCLUSION: Total biophysical profile score for baby A 02/05 and baby B 02/05. Electronically authenticated by: ANGIE MEJIA Date: 07/19/2023 10:17
--- NOTE | 2023-07-19 09:09 | US_ITS ---
[address] [address] Patient Name: LELIA CONNOLLY MRN: [id number] date: 2000 Sex: F Assigned Patient Location: [facility] Current Patient Location: [facility] Accession/Order Number: [id number] Exam Date: 07/19/2023 09:16 Report Date: 07/19/2023 10:19 At the request of: EN JOHNSON Procedure: US OB >= 14 wk fetus add gest EXAMINATION: US OB >= 14 wk fetus add gest HISTORY: LGA COMPARISON: No relevant comparison available. FINDINGS: Fetus A: position: Breech Heart rate: 1:30 BPM Largest fluid pocket: 3.8 x 4.6 cm Fetus B: position: Cephalic Heart rate: 132 BPM Largest fluid pocket 3.7 x 3.1 cm US/US OB >= 14 wk fetus add gest IMPRESSION: Twin intrauterine gestation Electronically authenticated by: ANGIE MEJIA Date: 07/19/2023 10:19
[2023-07-19 10:01] VITALS: BP 128/69; PULSE 90
== END 2023-07-19 10:45 | disposition home or self-care (01) ==
LOC: FBCO 07:11 → FBC 09:01
PROVIDERS: PCP Family Medicine; Visit Provider Obstetrics & Gynecology
DX: D50.9 Iron deficiency anemia, unspecified (principal); O30.043 Twin pregnancy, dichorionic/diamniotic, third trimester; O36.5930 Maternal care for other known or suspected poor fetal growth, third trimester, not applicable or unspecified; O41.8X30 Other specified disorders of amniotic fluid and membranes, third trimester, not applicable or unspecified; Z3A.36 36 weeks gestation of pregnancy
CPT/HCPCS: 76810; 76818

== ENCOUNTER 2023-07-22 14:02 | Inpatient (IN) | payer OTHER, SELFPAY ==
[2023-07-22] VITALS (25 sets, daily range): BP systolic 97–139; BP diastolic 42–90; PULSE 53–93; RESP 10–28; TEMP 36.1–36.7; O2SAT 89–100
--- OUTSIDE RECORDS SUMMARY | 2023-07-22 14:12 | XMS_ITS | CCD ---
Author Name Unknown Address [address] [facility] [address] [place] [address] Organization [facility] Care Team Providers Care Checking Department Supervisor Name Role Phone NO FAMILY, PHYSICIAN Primary Care Provider Nela Givens Primary Care Provider [phone] SUKI CONDE Primary Care Physician [phone] AMAYA PROVIDER, SUKI Referring Unavailab le NILL, Mayito Thapa Attending Unavailable AMAYA PROVIDER, SUKI Referring Unavailab le RAPHAEL, Mayito Thapa Attending Unavailable AMAYA, DR SUKI [...] Consulting Unavailable EUSEBIO ., MARYURI Consulting Unavailable RASTENEELIMA MISTI Consulting Unavailable EUSEBIO ., MARYURI Admitting Unavailable EUSEBIO ., MARYURI Attending Unavailable JORGE, DR SHIRLEY Thapa Consulting Unavailable AMAYA, DR SUKI Kong Primary Care Unavailable EUSEBIO ., MARYURI Consulting Unavailable ANGIE, HARMAN Consulting Unavailable JULITO ADAMSYL Admitting Unavailable HARMAN ADAMS Attending Unavailable AMAYA, DR SUKI Kong Primary Care Unavailable ANA COTE Consulting Unavailable AMAYA, DR SUKI Kong Primary Care Unavailable BERTRAND, DR Courtney Thapa Consulting Unavailable BERTRAND, DR Courtney Thapa Admitting Unavailable BERTRAND, DR Courtney Thapa Attending Unavailable AMAYA, DR SUKI Kong Primary Care Unavailable BERTRAND, DR Courtney Thapa Admitting Unavailable BRETRAND, DR Courtney Thapa Attending Unavailable BERTRAND, DR Courtney Thapa Consulting Unavailable ELIZABETH ., DR GATICA Attending Unavailable ELIZABETH ., DR GATICA Admitting Unavailable [place], DR ANGIE Arce Consulting Unavailable NADERER, DR [...] GATICA Consulting Unavailable ELIZABETH ., DR GATICA Admkatja Unavailable NADERER, DR SUKI Kong Primary Care [...] Unavailable AMAYA, DR SUKI Kong Attending Unavailable [place], DR ANGIE Arce Consulting Unavailable REQUEST, DR NONE LISTED Primary Care Unavaila ble AMAYA, DR SUKI Kong Consulting Unavailable Filippo Larson Unavailable Unknown, Referring Provider Unavailable Unav ailable Ramakrishna Schwarz Attending Unavailable UNKNOWN, PCP Primary Care Unavailable No Pcp, No Pcp Primary Care Provider Unavailyoseph QUINTANA, CECIL Attending Unavailable ELIZABETH, CECIL Attending Unavailable ELIZABETH, CECIL Attending Unavailable NESTOR PRICE Attending Unavailable DEE, NESTOR Attending Unavailable AMADEO HEATON Attending Unavailable ELIZABETH, CECIL R Referring Unavailable NO PCP, NO PCP Primary Care Unavailable LYLY SMITH Attending Unavailable ELIZABETH, CECIL R Referring Unavailable NO PCP, NO PCP Primary Care Unavailable ELIZABETH, CECIL R Referring Unavailable NO [...] Status: Ordered take 2 tablets by mo [facility] once daily at bedtime Elavil 25 MG [...] (1 source) End: 07-26-2014 NORETHINDRONE AC-ETH ESTRADIOL ( 1.11/27, , ORAL) Take by mouth. 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 Gonzales in [place]. Twins are doing well, their growth is [...] EFW (oz) 12 oz EFW by: Hadlock (WCN-CY-CU-FL) Extended Civil Drafter 5.8 mm CM 3.9 mm 16% Nicolaides [...] mm 61 (more content not included)... Normal [facility] AMYLASEon 10-28-2022 Amylase [Catalytic activity/Vol] 35 U/L Normal 25-115 [facility] Comment on above: Performed By: #### C MP, LIPA, NESTOR #### [facility] [address] [address] [address] Joe Shea CBC AUTO DIFFon 10-28-2022 BASO # 0.1 103/ul Normal 0.0-0.1 [facility] Comment on above: Performed By: #### C MP LIPA, NESTOR #### [facility] [address] [place], [place] [address] Dr. Joe Shea Basophils/100 WBC (Bld) 0.4 % Normal 0.2-2.0 [facility] Comment on above: Performed By: #### C CARLYN DE JESUS NESTOR #### [facility] [address] [place] [address] Dr. Joe Shea EO # 0.1 103/ul Normal 0.0-0.7 [facility] Comment on above: Performed By: #### C HUGO DE JESUSA, NESTOR #### [facility] [address] [place] [address] Dr. Joe Shea Eosinophils/100 WBC (Bld) 0.8 % Critically low 0.9-7. 0 [facility] Comment on above: Performed By: #### C CARLYN DE JESUS NESTOR #### [facility] [address] [place] [address] Dr. Joe Shea Erythrocyte distribution width (RBC) [Ratio] 13.2 % Normal 11.0-15.0 [facility] Comment on above: Performed By: #### C CARLYN DE JESUS NESTOR #### [facility] [address] [place] [address] Dr. Joe Shea Hematocrit (Bld) [Volume fraction] 37.2 % Normal 36.0-48.0 [facility] Comment on above: Performed By: #### C CARLYN DE JESUS NESTOR #### [facility] [address] [place] [address] Dr. Joe Shea Hemoglobin (Bld) [Mass/Vol] 12.0 g/dL Normal 12.0-16.0 [facility] Comment on above: Performed By: #### C CARLYN DE JESUS, NESTOR #### [facility] [address] [place] [address] Dr. Joe Shea IG # 0.03 10e3/ul Normal 0.00-0.03 [facility] Comment on above: Performed By: #### C CARLYN DE JESUS, NESTOR #### [facility] [address] [place] [address] Dr. Joe Shea IG % 0.2 % Normal 0.0-0.5 [facility] Comment on above: Performed By: #### C HUGO DE JESUSA, NESTOR #### [facility] [address] [address] [address] Joe Shea LYMPH # 1.9 103/ul Normal 1.2-3.8 [facility] Comment on above: Performed By: #### C MP, LIPA, NESTOR #### [facility] [address] [address] [address] Joe Shea Lymphocytes/100 WBC (Bld) 15.2 % Critically low 20.5-6 0.0 [facility] Comment on above: Performed By: #### C MP, LIPA, NESTOR #### [facility] [address] [place] [address] Dr. Joe Shea MANUAL DIFF REQ NO Normal [facility] Comment on above: Performed By: #### C MP, LIPA, NESTOR #### [facility] [address] [place] [address] Dr. Joe Shea MCH (RBC) [Entitic mass] 28.4 pg Normal 26.7-34.0 [facility] Comment on above: Performed By: #### C MP, LIPA, NESTOR #### [facility] [address] [place] [address] Dr. Joe Shea MCHC (RBC) [Mass/Vol] 32.3 g/dL Normal 29.9-35.2 [facility] Comment on above: Performed By: #### C MP, LIPA, NESTOR #### [facility] [address] [place] [address] Dr. Joe Shea MCV (RBC) [Entitic vol] 87.9 fL Normal 81.0-99.0 [facility] Comment on above: Performed By: #### C MP, LIPA, NESTOR #### [facility] [address] [place] [address] Dr. Joe Shea MONO # 0.9 103/ul Critically high 0.3-0.8 [facility] Comment on above: Performed By: #### C MP, LIPA, NESTOR #### [facility] [address] [place] [address] Dr. Joe Shea Monocytes/100 WBC (Bld) 7.1 % Normal 1.7-12.0 T [facility] Comment on above: Performed By: #### C CARLYN DE JESUS NESTOR #### [facility] [address] [place] [address] Dr. Joe Shea NEUT # 9.5 103/ul Critically high 1.4-6.5 [facility] Comment on above: Performed By: #### C CARLYN DE JESUS, NESTOR #### [facility] [address] [place] [address] Dr. Joe Shea Neutrophils/100 WBC (Bld) 76.3 % Critically high 43.0- 75.0 [facility] Comment on above: Performed By: #### C CARLYN DE JESUS NESTOR #### [facility] [address] [place] [address] Dr. Joe Shea Platelet mean volume (Bld) [Entitic vol] 10.8 fL Normal 9.5-13.5 [facility] Comment on above: Performed By: #### C CARLYN DE JESUS, NESTOR #### [facility] [address] [place] [address] Dr. Joe Shea PLT 283 103/ul Normal 150-450 [facility] Comment on above: Performed By: #### C CARLYN DE JESUS, NESTOR #### [facility] [address] [place] [address] Dr. Joe Shea RBC 4.23 106/ul Normal 4.20-5.40 [facility] Comment on above: Performed By: #### C CARLYN DE JESUS, NESTOR #### [facility] [address] [place] [address] Dr. Joe Shea WBC 12.5 103/ul Critically high 4.0-11.0 [facility] Comment on above: Performed By: #### C CARLYN DE JESUS, NESTOR #### [facility] [address] [place] [address] ABD/PELV W CONon [...] BREWER Date: 2022-10-28 18:31 Normal [facility] ER URINE PROFILEon 3 Bilirubin Ql (U) Negative Normal NEGATIVE [facility] Comment on above: Performed By: #### L BCL #### [facility] [address] [place] [address] Dr. Joe Shea Clarity (U) CLEAR Normal CLEAR [facility] Comment on above: Performed By: #### L BCL #### [facility] [address] [place] [address] Dr. Joe Shea Color (U) LT. YELLOW Normal YELLOW [facility] Comment on above: Performed By: #### L BCL #### [facility] [address] [place] [address] Dr. Joe Shea ERUAHD A micrscopic examination will be performed if indicated. Normal [facility] Comment on above: Performed By: #### L BCL #### [facility] [address] [address] [address] Joe Shea Glucose Ql (U) Negative Normal NEGATIVE [facility] Comment on above: Performed By: #### L BCL #### [facility] [address] [place] [address] Dr. Joe Shea Hemoglobin Ql (U) Negative Normal NEGATIVE [facility] Comment on above: Performed By: #### L BCL #### [facility] [address] [place] [address] Dr. Joe Shea Ketones Ql (U) Negative Normal NEGATIVE [facility] Comment on above: Performed By: #### L BCL #### [facility] [address] [place] [address] Dr. Joe Shea LEUKOCYTES TRACE Abnormal NEGATIVE [facility] Comment on above: Performed By: #### L BCL #### [facility] [address] [place] [address] Dr. Joe Shea Nitrite Ql (U) Negative Normal NEGATIVE [facility] Comment on above: Performed By: #### L BCL #### [facility] [address] [place] [address] Dr. Joe Shea pH (U) 8.0 [pH] Normal 5-9 [facility] Comment on above: Performed By: #### L BCL #### [facility] [address] [place] [address] Dr. Joe Shea SPEC GRAVITY 1.015 Normal 1.005-<=1.02 5 [facility] Comment on above: Performed By: #### L BCL #### [facility] [address] [place] [address] Dr. Joe Shea UA PROTEIN Negative Normal NEGATIVE/ TRACE [facility] Comment on above: Performed By: #### L BCL #### [facility] [address] [place] [address] Dr. Joe Shea UR MICRO IND INDICATED Normal [facility] Comment on above: Performed By: #### L BCL #### [facility] [address] [place] [address] Dr. Joe Shea Urobilinogen Qn (U) 2.0 {Pascual'U}/dL Abnormal 0.2 - 1. 0 [facility] Comment on above: Performed By: #### L BCLH #### [facility] [address] [place] [address] Dr. Joe Shea LIPASEon 10-28-2022 Lipase [Catalytic activity/Vol] 93.0 U/L Normal 73.0-393.0 [facility] Comment on above: Performed By: #### C MP, LIPA, NESTOR #### [facility] [address] [place] [address] Dr. Joe Shea URon 10-28-2022 , QUAL Negative Normal NEGATIVE [facility] Comment on above: Performed By: #### L BCL #### [facility] [address] [place] [address] Dr. Joe Shea PROF 14(COMP METB)on 023 Albumin [Mass/Vol] 4.1 g/dL Normal 3.4-5.0 [facility] Comment on above: Performed By: #### C MP, LIPA, NESTOR #### [facility] [address] [place] [address] Dr. Joe Shea Albumin/Globulin [Mass ratio] 1.2 {ratio} Normal [facility] Comment on above: Performed By: #### C MP, LIPA, NESTOR #### [facility] [address] [place] [address] Dr. Joe Shea ALP [Catalytic activity/Vol] 60 U/L Normal 46-116 [facility] Comment on above: Performed By: #### C MP, LIPA, NESTOR #### [facility] [address] [place] [address] Dr. Joe Shea ALT [Catalytic activity/Vol] 22 U/L Normal 14-59 [facility] Comment on above: Performed By: #### C MP, LIPA, NESTOR #### [facility] [address] [place] [address] Dr. Joe Shea Anion gap [Moles/Vol] 10.2 mmol/L Normal [facility] Comment on above: Performed By: #### C MP, LIPA, NESTOR #### [facility] [address] [address] [address] Joe Shea AST [Catalytic activity/Vol] 14 U/L Critically low 15-37 [facility] Comment on above: Performed By: #### C MP, LIPA, NESTOR #### [facility] [address] [place] [address] Dr. Joe Shea Bilirubin [Mass/Vol] 0.5 mg/dL Normal 0.2-1.0 [facility] Comment on above: Performed By: #### C MP, LIPA, NESTOR #### [facility] [address] [place] [address] Dr. Joe Shea Calcium [Mass/Vol] 8.9 mg/dL Normal 8.5-10.1 [facility] Comment on above: Performed By: #### C MP LIPA, NESTOR #### [facility] [address] [place] [address] Dr. Joe Shea Chloride [Moles/Vol] 103 mmol/L Normal 98-107 [facility] Comment on above: Performed By: #### C MP LIPA, NESTOR #### [facility] [address] [place] [address] Dr. Joe Shea CO2 [Moles/Vol] 28.1 mmol/L Normal 21.0-32.0 [facility] Comment on above: Performed By: #### C MP, LIPA, NESTOR #### [facility] [address] [place] [address] Dr. Joe Shea Creatinine [Mass/Vol] 0.77 mg/dL Normal 0.55-1.02 [facility] Comment on above: Performed By: #### C MP, LIPA, NESTOR #### [facility] [address] [place] [address] Dr. Joe Shea EGFR-AF OMANI >60 Normal >=60 [facility] Comment on above: Performed By: #### C MP, LIPA, NESTOR #### [facility] [address] [place] [address] Dr. Joe Shea EGFR-NON AF OMANI >60 Normal >=60 [facility] Comment on above: Performed By: #### C CARLYN DE JESUS NESTOR #### [facility] [address] [place] [address] Dr. Joe Shea Globulin (S) [Mass/Vol] 3.5 g/dL Normal T [facility] Comment on above: Performed By: #### C CARLYN DE JESUS, NESTOR #### [facility] [address] [address] [address] Joe Shea Glucose [Mass/Vol] 85 mg/dL Normal 74-106 [facility] Comment on above: Performed By: #### C CARLYN DE JESUS, NESTOR #### [facility] [address] [place] [address] Dr. Joe Shea Potassium [Moles/Vol] 3.3 mmol/L Critically low 3.5-5.1 [facility] Comment on above: Performed By: #### C CARLYN DE JESUS, NESTOR #### [facility] [address] [place] [address] Dr. Joe Shea Protein [Mass/Vol] 7.6 g/dL Normal 6.4-8.2 [facility] Comment on above: Performed By: #### C CARLYN DE JESUS, NESTOR #### [facility] [address] [place] [address] Dr. Joe Shea Sodium [Moles/Vol] 138 mmol/L Normal 136-145 [facility] Comment on above: Performed By: #### C CARLYN DE JESUS, NESTOR #### [facility] [address] [place] [address] Dr. Joe Shea Urea nitrogen [Mass/Vol] 6.0 mg/dL Critically low 7.0-18. 0 [facility] Comment on above: Performed By: #### C CARLYN DE JESUS, NESTOR #### [facility] [address] [place] [address] Dr. Joe Shea Urea nitrogen/Creatinine [Mass ratio] 7.8 mg/mg Normal [facility] Comment on above: Performed By: #### C MP, LIPA, NESTOR #### [facility] [address] [place] [address] Dr. Joe Shea URINE MICROSCOPIC ONLYon BACTERIA NONE SEEN Normal NONE SEEN [facility] Comment on above: Performed By: #### L BCL #### [facility] [address] [place] [address] Dr. Joe Shea Bacteria identified Cx Nom (U) NOT INDICATED Normal [facility] Comment on above: Performed By: #### L BCLH #### [facility] [address] [place] [address] Dr. Joe Shea CAST NONE SEEN Normal NONE SEEN [facility] Comment on above: Performed By: #### L BCL #### [facility] [address] [place] [address] Dr. Joe Shea Crystals LM Nom (Urine sed) NONE SEEN Normal NONE SEEN [facility] Comment on above: Performed By: #### L BCL #### [facility] [address] [place] [address] Dr. Joe Shea Epithelial cells LM Ql (Urine sed) FEW Abnormal NONE SEEN /RARE [facility] Comment on above: Performed By: #### L BCL #### [facility] [address] [place] [address] Dr. Joe Shea MUCOUS NONE SEEN Normal NONE SEEN [facility] Comment on above: Performed By: #### L BCL #### [facility] [address] [place] [address] Dr. Joe Shea RBC NONE SEEN Abnormal 0-2 [facility] Comment on above: Performed By: #### L BCL #### [facility] [address] [place] [address] Dr. Joe Shea WBC 0-2 Abnormal NONE SEEN [facility] Comment on above: Performed By: #### L BCL #### [facility] [address] [place] [address] Dr. Joe Shea LACTOFERRIN FECAL QUANTon Lactoferrin, Fecal, Quant. <1.00 Normal 0.00-7.24 [facility] Comment on above: Result Comment: Re [...] Performed By: #### D TRESA #### [facility] [address] [address] [address] Joe Shea CALPROTECTIN, FECALon 2022 Calprotectin, Fecal 31 ug/g Normal 0-120 [facility] Comment on above: Result Comment: Conc entration Interpretation Follow-Up <16 - 50 ug/g Normal None >50 -120 ug/g Borderline Re-evaluate in 4-6 weeks >120 ug/g Abnormal Repeat as clinically indicated Performed By: #### C MP, NESTOR ALCOCER #### [facility] [address] [address] [address] Joe Shea BOWEL DISORDERS EVALUATION R ULE-OUT CASCon 09-25-2022 Antigliadin 8 units Normal 0-19 [facility] Comment on above: Result Comment: Nega tive 0 - 19 Weak Positive 20 - 30 Moderate to Strong Positive >30 . Performed By: #### C BC #### [facility] [address] [place] [address] Dr. Joe Shea Atypical pANCA Negative Normal Negative [facility] Comment on above: Performed By: #### C BC #### [facility] [address] [place] [address] Dr. Joe Shea Note: [place] continues Normal [facility] Comment on above: Performed By: #### C BC #### [facility] [address] [place] [address] Dr. Joe Shea Note: Comment Normal [facility] Comment on above: Result Comment: Sugg estive of irritable bowel syndrome (IBS). Careful evaluation of the patient's history, physical examination, and application of Navjot III diagnostic criteria may help to rule in or rule out the diagnosis of IBS. Subsequent testing for Fecal Calprotectin (437691) may be recommended. If IBD is strongly suspected, subsequent testing with the Crohn's Disease Prognostic Profile (741020) that includes anti- glycan antibodies AMCA, ALCA, ACCA, and Zulema may aid in differential diagnosis. Performed By: #### C BC #### [facility] [address] [place] [address] Dr. Joe Shea Saccharomyces Cer. IgG <20.0 Normal 0.0-24.9 [facility] Comment on above: Result Comment: Nega tive <20.0 Equivocal 20.1 - 24.9 Positive >or= 25.0 Performed By: #### C BC #### [facility] [address] [place] [address] Dr. Joe Shea tTG/DGP SCR Negative Normal Negative [facility] Comment on above: Result Comment: Ef fective September 21, 2022 this profile will be made non-orderable due to non-availability of reagents for tTG/DGP Combo. No replacement number is available at this time. For further information, please contact your local [facility]. Performed By: #### C BC #### [facility] [address] [place] [address] Dr. Joe Shea CBC AUTO DIFFon 09-19-2022 BASO # 0.1 103/ul Normal 0.0-0.1 [facility] Comment on above: Performed By: #### D TRESA #### [facility] [address] [place] [address] Dr. Joe Shea Basophils/100 WBC (Bld) 0.9 % Normal 0.2-2.0 [facility] Comment on above: Performed By: #### D TRESA #### [facility] [address] [place] [address] Dr. Joe Shea EO # 0.2 103/ul Normal 0.0-0.7 [facility] Comment on above: Performed By: #### D LUIS ARMANDOUL #### [facility] [address] [place] [address] Dr. Joe Shea Eosinophils/100 WBC (Bld) 2.4 % Normal 0.9-7.0 [facility] Comment on above: Performed By: ###Asiya GTZ #### [facility] [address] [place] [address] Dr. Joe Shea Erythrocyte distribution width (RBC) [Ratio] 13.2 % Normal 11.0-15.0 [facility] Comment on above: Performed By: #### Althea GTZ #### [facility] [address] [place] [address] Dr. Joe Shea Hematocrit (Bld) [Volume fraction] 38.3 % Normal 36.0-48.0 [facility] Comment on above: Performed By: ###Asiya GTZ #### [facility] [address] [place] [address] Dr. Joe Shea Hemoglobin (Bld) [Mass/Vol] 12.3 g/dL Normal 12.0-16.0 [facility] Comment on above: Performed By: ###Asiya GTZ #### [facility] [facility] [address] [place] [address] Dr. Joe Shea IG # 0.02 10e3/ul Normal 0.00-0.03 [facility] Comment on above: Performed By: ###Asiya GTZ #### [facility] [address] [place] [address] Dr. Joe Shea IG % 0.3 % Normal 0.0-0.5 [facility] Comment on above: Performed By: ###Asiya GTZ #### [facility] [address] [place] [address] Dr. Joe Shea LYMPH # 1.7 103/ul Normal 1.2-3.8 [facility] Comment on above: Performed By: ###Asiya GTZ #### [facility] [address] [place] [address] Dr. Joe Shea Lymphocytes/100 WBC (Bld) 24.6 % Normal 20.5-60.0 [facility] Comment on above: Performed By: ###Asiya GTZ #### [facility] [address] [place] [address] Dr. Joe Shea MANUAL DIFF REQ NO Normal [facility] Comment on above: Performed By: #### Althea GTZ #### [facility] [address] [place] [address] Dr. Joe Shea MCH (RBC) [Entitic mass] 28.1 pg Normal 26.7-34.0 [facility] Comment on above: Performed By: #### Althea GTZ #### [facility] [address] [place] [address] Dr. Joe Shea MCHC (RBC) [Mass/Vol] 32.1 g/dL Normal 29.9-35.2 [facility] Comment on above: Performed By: #### Althea GTZ #### [facility] [address] [place] [address] Dr. Joe Shea MCV (RBC) [Entitic vol] 87.6 fL Normal 81.0-99.0 [facility] Comment on above: Performed By: ###Asiya GTZ #### [facility] [address] [place] [address] Dr. Joe Shea MONO # 0.4 103/ul Normal 0.3-0.8 [facility] Comment on above: Performed By: ###Asiya GTZ #### [facility] [address] [place] [address] Dr. Joe Shea Monocytes/100 WBC (Bld) 5.5 % Normal 1.7-12.0 [facility] Comment on above: Performed By: ###Asiya GTZ #### [facility] [address] [place] [address] Dr. Joe Shea NEUT # 4.7 103/ul Normal 1.4-6.5 [facility] Comment on above: Performed By: ###Asiya GTZ #### [facility] [address] [place] [address] Dr. Joe Shea Neutrophils/100 WBC (Bld) 66.3 % Normal 43.0-75.0 [facility] Comment on above: Performed By: ###Asiya GTZ #### [facility] [address] [address] [address] Joe Shea Platelet mean volume (Bld) [Entitic vol] 11.4 fL Normal 9.5-13.5 [facility] Comment on above: Performed By: #### Althea GTZ #### [facility] [address] [place] [address] Dr. Joe Shea PLT 275 103/ul Normal 150-450 [facility] Comment on above: Performed By: #### Althea GTZ #### [facility] [address] [place] [address] Dr. Joe Shea RBC 4.37 106/ul Normal 4.20-5.40 [facility] Comment on above: Performed By: #### Althea GTZ #### [facility] [address] [place] [address] Dr. Joe Shea WBC 7.0 103/ul Normal 4.0-11.0 [facility] Comment on above: Performed By: #### Althea GTZ #### [facility] [address] [place] [address] Dr. Joe Shea PROF 14(COMP METB)on 023 Albumin [Mass/Vol] 4.4 g/dL Normal 3.4-5.0 [facility] Comment on above: Performed By: #### L DAIN #### [facility] [address] [place] [address] Dr. Joe Shea Albumin/Globulin [Mass ratio] 1.4 {ratio} Normal [facility] Comment on above: Performed By: #### L BCL #### [facility] [address] [place] [address] Dr. Joe Shea ALP [Catalytic activity/Vol] 51 U/L Normal 46-116 [facility] Comment on above: Performed By: #### L BCLH #### [facility] [address] [place] [address] Dr. Joe Shea ALT [Catalytic activity/Vol] 20 U/L Normal 14-59 [facility] Comment on above: Performed By: #### L BCLH #### [facility] [address] [address] [address] Joe Shea Anion gap [Moles/Vol] 11.7 mmol/L Normal [facility] Comment on above: Performed By: #### L BCL #### [facility] [address] [place] [address] Dr. Joe Shea AST [Catalytic activity/Vol] 17 U/L Normal 15-37 [facility] Comment on above: Performed By: #### L BCLH #### [facility] [address] [place] [address] Dr. Joe Shea Bilirubin [Mass/Vol] 0.4 mg/dL Normal 0.2-1.0 [facility] Comment on above: Performed By: #### L BCLH #### [facility] [address] [place] [address] Dr. Joe Shea Calcium [Mass/Vol] 9.3 mg/dL Normal 8.5-10.1 [facility] Comment on above: Performed By: #### L BCL #### [facility] [address] [place] [address] Dr. Joe Shea Chloride [Moles/Vol] 104 mmol/L Normal 98-107 [facility] Comment on above: Performed By: #### L BCL #### [facility] [address] [place] [address] Dr. Joe Shea CO2 [Moles/Vol] 28.5 mmol/L Normal 21.0-32.0 [facility] Comment on above: Performed By: #### L BCLH #### [facility] [address] [place] [address] Dr. Joe Shea Creatinine [Mass/Vol] 0.55 mg/dL Normal 0.55-1.02 [facility] Comment on above: Performed By: #### L BCLH #### [facility] [address] [place] [address] Dr. Joe Shea EGFR-AF OMANI >60 Normal >=60 [facility] Comment on above: Performed By: #### L BCLH #### [facility] [address] [place] [address] Dr. Joe Shea EGFR-NON AF OMANI >60 Normal >=60 [facility] Comment on above: Performed By: #### L BCLH #### [facility] [address] [place] [address] Dr. Joe Shea Globulin (S) [Mass/Vol] 3.1 g/dL Normal T [facility] Comment on above: Performed By: #### L BCLH #### [facility] [address] [address] [address] Joe Shea Glucose [Mass/Vol] 90 mg/dL Normal 74-106 [facility] Comment on above: Performed By: #### L BCLH #### [facility] [address] [place] [address] Dr. Joe Shea Potassium [Moles/Vol] 4.2 mmol/L Normal 3.5-5.1 [facility] Comment on above: Performed By: #### L BCLH #### [facility] [address] [place] [address] Dr. Joe Shea Protein [Mass/Vol] 7.5 g/dL Normal 6.4-8.2 [facility] Comment on above: Performed By: #### L BCLH #### [facility] [address] [place] [address] Dr. Joe Shea Sodium [Moles/Vol] 140 mmol/L Normal 136-145 [facility] Comment on above: Performed By: #### L BCLH #### [facility] [address] [place] [address] Dr. Joe Shea Urea nitrogen [Mass/Vol] 6.0 mg/dL Critically low 7.0-18. 0 [facility] Comment on above: Performed By: #### L BCLH #### [facility] [address] [place] [address] Dr. Joe Shea Urea nitrogen/Creatinine [Mass ratio] 10.9 mg/mg Normal [facility] Comment on above: Performed By: #### L BCLH #### [facility] [address] [place] [address] Dr. Joe Shea PROTIMEon 09-19-2022 INR Coag (PPP) [Relative time] 1.08 {INR} Normal [facility] Comment on above: Performed By: #### L [facility] #### [facility] [address] [place] [address] Dr. Joe Shea INR GUIDELINES SEE BELOW Normal [facility] Comment on above: Result Comment: CHICA RED INR: 2.0 - 3.0 CONDITIONS NOT LISTED BELOW 2.5 - 3.5 FOR PROSTHETIC HEART VALVE REPLACEMENT 2.5 - 3.5 RECURRENT THROMBOSIS Performed By: #### L BCL #### [facility] [address] [address] [address] Joe Shea PT Coag (PPP) [Time] 11.4 s Normal 9.0-11.6 [facility] Comment on above: Performed By: #### L BARRY #### [facility] [address] [place] [address] Dr. Joe Shea TSHon 09-19-2022 TSH 0.957 uIU/mL Normal 0.358-3.740 [facility] Comment on above: Performed By: #### L [facility] #### [facility] [address] [place] [address] Dr. Joe Shea Pre-Certification Formon Pre-Certification Form [id number] 269#1.00CD:127 Normal [facility] Consent for Procedure/Surger yon 07-23-2022 Consent for Procedure/Surgery [id number] 7E#1.00CD:127 Normal [facility] Facesheeton 07-19-2022 Facesheet [id number] 71#1.00CD:127 Normal [facility] CBC AUTO DIFFon 07-06-2022 BASO # 0.1 103/ul Normal 0.0-0.1 [facility] Comment on above: Performed By: #### C CARLYN DE JESUS AMY #### [facility] [address] [place] [address] Dr. Joe Shea Basophils/100 WBC (Bld) 0.8 % Normal 0.2-2.0 [facility] Comment on above: Performed By: #### C CARLYN DE JESUS, NESTOR #### [facility] [address] [place] [address] Dr. Joe Shea EO # 0.4 103/ul Normal 0.0-0.7 [facility] Comment on above: Performed By: #### C NEAL LIPA, NESTOR #### [facility] [address] [place] [address] Dr. Joe Shea Eosinophils/100 WBC (Bld) 4.2 % Normal 0.9-7.0 [facility] Comment on above: Performed By: #### C HUGO DE JESUSA, NESTOR #### [facility] [address] [place] [address] Dr. Joe Shea Erythrocyte distribution width (RBC) [Ratio] 13.5 % Normal 11.0-15.0 [facility] Comment on above: Performed By: #### C HUGO DE JESUSA, NESTOR #### [facility] [address] [place] [address] Dr. Joe Shea Hematocrit (Bld) [Volume fraction] 36.8 % Normal 36.0-48.0 [facility] Comment on above: Performed By: #### C HUGO DE JESUSA, NESTOR #### [facility] [address] [place] [address] Dr. Joe Shea Hemoglobin (Bld) [Mass/Vol] 12.2 g/dL Normal 12.0-16.0 [facility] Comment on above: Performed By: #### C NEAL LIPA, NESTOR #### [facility] [address] [place] [address] Dr. Joe Shea IG # 0.02 10e3/ul Normal 0.00-0.03 [facility] Comment on above: Performed By: #### C NEAL LIPA, NESTOR #### [facility] [address] [place] [address] Dr. Joe Shea IG % 0.2 % Normal 0.0-0.5 [facility] Comment on above: Performed By: #### C MP, LIPA, NESTOR #### [facility] [address] [place] [address] Dr. Joe Shea LYMPH # 2.1 103/ul Normal 1.2-3.8 [facility] Comment on above: Performed By: #### C MP, LIPA, NESTOR #### [facility] [address] [place] [address] Dr. Joe Shea Lymphocytes/100 WBC (Bld) 20.3 % Critically low 20.5-6 0.0 [facility] Comment on above: Performed By: #### C MP LIPA, NESTOR #### [facility] [address] [place] [address] Dr. Joe Shea MANUAL DIFF REQ NO Normal [facility] Comment on above: Performed By: #### C MP LIPA, NESTOR #### [facility] [address] [place] [address] Dr. Joe Shea MCH (RBC) [Entitic mass] 28.6 pg Normal 26.7-34.0 [facility] Comment on above: Performed By: #### C MP LIPA, NESTOR #### [facility] [address] [place] [address] Dr. Joe Shea MCHC (RBC) [Mass/Vol] 33.2 g/dL Normal 29.9-35.2 [facility] Comment on above: Performed By: #### C MP, LIPA, NESTOR #### [facility] [address] [place] [address] Dr. Joe Shea MCV (RBC) [Entitic vol] 86.4 fL Normal 81.0-99.0 [facility] Comment on above: Performed By: #### C MP, LIPA, NESTOR #### [facility] [address] [place] [address] Dr. Joe Shea MONO # 0.6 103/ul Normal 0.3-0.8 [facility] Comment on above: Performed By: #### C MP, LIPA, NESTOR #### [facility] [address] [place] [address] Dr. Joe Shea Monocytes/100 WBC (Bld) 5.5 % Normal 1.7-12.0 T [facility] Comment on above: Performed By: #### C HUGO DE JESUSA, NESTOR #### [facility] [address] [address] [address] Joe Shea NEUT # 7.2 103/ul Critically high 1.4-6.5 [facility] Comment on above: Performed By: #### C NEAL LIPA, NESTOR #### [facility] [address] [address] [address] Joe Shea Neutrophils/100 WBC (Bld) 69.0 % Normal 43.0-75.0 [facility] Comment on above: Performed By: #### C NEAL LIPA, NESTOR #### [facility] [address] [place] [address] Dr. Joe Shea Platelet mean volume (Bld) [Entitic vol] 10.8 fL Normal 9.5-13.5 [facility] Comment on above: Performed By: #### C NEAL LIPA, NESTOR #### [facility] [address] [place] [address] Dr. Joe Shea PLT 316 103/ul Normal 150-450 [facility] Comment on above: Performed By: #### C NEAL LIPA, NESTOR #### [facility] [address] [place] [address] Dr. Joe Shea RBC 4.26 106/ul Normal 4.20-5.40 [facility] Comment on above: Performed By: #### C MP LIPA, NESTOR #### [facility] [address] [place] [address] Dr. Joe Shea WBC 10.4 103/ul Normal 4.0-11.0 [facility] Comment on above: Performed By: #### C MP LIPA, NESTOR #### [facility] [address] [place] [address] Dr. Joe Shea PREG QUANT HCGon 07-06-2022 HCG QUANT <1 Normal [facility] Comment on above: Performed By: #### C MP LIPA, NESTOR #### [facility] [address] [place], [place] [address] Dr. Joe Shea HCG RANGE SEE BELOW Normal [facility] Comment on above: Result Comment: 5-50 0.2-1 WEEK 50-500 1-2 WEEKS 100-5,000 2-3 WEEKS 500-10,000 3-4 WEEKS 1,000-50,000 4-5 WEEKS 10,000-100,000 5-6 WEEKS 15,000-200,000 6-8 WEEKS 10,000-100,000 2-3 MONTHS Performed By: #### C CRALYN DE JESUS AMY #### [facility] [address] [place], [place] [address] Dr. Joe Shea HEPATITIS C ANTIBODYon 06-26 [...] Hepatitis C Virus (HCV) RNA, Diagnosis, MEGAN (259905) and Hepatitis C Virus (HCV) Antibody with reflex to Quantitative Real-time PCR ([id number]). Performed By: #### L [facility] #### [facility] [address] [place], [place] [address] Dr. Joe Shea Covid-19 PCR (CVDTBH)on 05-31 SARS-CoV-2 (COVID-19) RNA MEGAN+probe Ql (Unsp spec) Not detected Normal NOT DETECTED [facility] Comment on above: Result Comment: This test is not yet approved or cleared by the [place] FDA. When there are no FDA-approved or cleared tests available, and other criteria are met, FDA can make tests available under an emergency access mechanism called an Emergency Use Authorization (EUA). The EUA for this test is supported by the [place] [place] [employer] of Health and Human Service's (HHS's) declaration [...] Performed By: #### C VDTBH #### [facility] [address] [place] [address] Dr. Joe Shea HEP B SURFACE ANTIGEN SCREEN on 06-12-2022 HBsAg Screen Negative Normal Negative [facility] Comment on above: Performed By: #### D TRESA #### [facility] [address] [place] [address] Dr. Joe Shea HIV 1 AND 2 WITH REFLEXon HIV Screen 4th Generation wRfx Non-Reactive Normal Non Reactive [facility] Comment on above: Result Comment: HIV Negative HIV-1/HIV-2 antibodies and HIV-1 p24 antigen were NOT detected. There is no laboratory evidence of HIV infection. Performed By: #### C CARLYN DE JESUS AMY #### [facility] [address] [place] [address] Dr. Joe Shea RPR QUANTon 06-12-2022 Rapid Plasma Reagin, Quant Non-Reactive Normal NonRea< 1:1 [facility] Comment on above: Result Comment: Plea se Note: This test does not meet current guidelines for screening and diagnosis of syphilis. This test is intended for following treatment response in patients being treated for syphilis infection. To screen for syphilis infection, a reflex cascade that includes both RPR and a treponema-specific assay should be utilized, such as Treponema pallidum (Syphilis) Screening [place] (684654) or Rapid Plasma Reagin (RPR) Test With Reflex to Quantitative RPR and Confirmatory Treponema pallidum Antibodies (255990). Performed By: #### C CARLYN DE JESUS, NESTOR #### [facility] [address] [place] [address] Dr. Joe Shea Physician Referralon 022 Physician Referral [id number] A3#1.00CD:127 Normal [facility] US PELVIS AND TRANSVAGon US [...] prior exam, indeterminate Electronically authenticated by: ANGIE MJEIA Date: 2022-05-31 17:18 Normal [facility] AMYLASEon 05-23-2022 Amylase [Catalytic activity/Vol] 24 U/L Critically low 25-115 [facility] Comment on above: Performed By: #### C MP, LIPA, NESTOR #### [facility] [address] [address] [address] Joe Shea CBC AUTO DIFFon 05-23-2022 Eosinophils/100 WBC (Bld) 1.5 % Normal 0.9-7.0 [facility] Comment on above: Performed By: #### L BCLH #### [facility] [address] [address] [address] Joe Shea Erythrocyte distribution width (RBC) [Ratio] 13.5 % Normal 11.0-15.0 [facility] Comment on above: Performed By: #### L BCLH #### [facility] [address] [place] [address] Dr. Joe Shea Hematocrit (Bld) [Volume fraction] 33.0 % Critically low 36.0-48.0 [facility] Comment on above: Performed By: #### L BCLH #### [facility] [address] [place] [address] Dr. Joe Shea Hemoglobin (Bld) [Mass/Vol] 10.7 g/dL Critically low 12.0-16.0 [facility] Comment on above: Performed By: #### L BCLH #### [facility] [address] [place] [address] Dr. Joe Shea LYMPH # 1.2 103/ul Normal 1.2-3.8 [facility] Comment on above: Performed By: #### L BCLH #### [facility] [address] [place] [address] Dr. Joe Shea Lymphocytes/100 WBC (Bld) 20.2 % Critically low 20.5-6 0.0 [facility] Comment on above: Performed By: #### L BCLH #### [facility] [address] [place] [address] Dr. Joe Shea MCH (RBC) [Entitic mass] 28.0 pg Normal 26.7-34.0 [facility] Comment on above: Performed By: #### L BCLH #### [facility] [address] [place] [address] Dr. Joe Shea MCHC (RBC) [Mass/Vol] 32.4 g/dL Normal 29.9-35.2 [facility] Comment on above: Performed By: #### L BCLH #### [facility] [address] [place] [address] Dr. Joe Shea Monocytes/100 WBC (Bld) 7.9 % Normal 1.7-12.0 [facility] Comment on above: Performed By: #### L BCLH #### [facility] [address] [place] [address] Dr. Joe Shea Neutrophils/100 WBC (Bld) 69.9 % Normal 43.0-75.0 [facility] Comment on above: Performed By: #### L BCLH #### [facility] [address] [place] [address] Dr. Joe Shea Platelet mean volume (Bld) [Entitic vol] 10.6 fL Normal 9.5-13.5 [facility] Comment on above: Performed By: #### L BCLH #### [facility] [address] [place] [address] Dr. Joe Shea PLT 233 103/ul Normal 150-450 [facility] Comment on above: Performed By: #### L BCLH #### [facility] [address] [place] [address] Dr. Joe Shea RBC 3.82 106/ul Critically low 4.20-5.40 [facility] Comment on above: Performed By: #### L BCLH #### [facility] [address] [place] [address] Dr. Joe Shea WBC 6.1 103/ul Normal 4.0-11.0 [facility] Comment on above: Performed By: #### L BCLH #### [facility] [address] [place] [address] Dr. Joe Shea BASO # 0.0 103/ul Normal 0.0-0.1 [facility] Comment on above: Performed By: #### L BCLH #### [facility] [address] [place] [address] Dr. Joe Shea Performed By: #### C CARLYN DE JESUS, NESTOR #### [facility] [address] [place] [address] Dr. Joe Shea Basophils/100 WBC (Bld) 0.3 % Normal 0.2-2.0 [facility] Comment on above: Performed By: #### L BCLH #### [facility] [address] [place] [address] Dr. Joe Shea Performed By: #### C MP LIPA, NESTOR #### [facility] [address] [place] [address] Dr. Joe Shea EO # 0.1 103/ul Normal 0.0-0.7 [facility] Comment on above: Performed By: #### L BCLH #### [facility] [address] [place] [address] Dr. Joe Shea Performed By: #### C CARLYN DE JESUS, NESTOR #### [facility] [address] [place] [address] Dr. Joe Shea Eosinophils/100 WBC (Bld) 1.9 % Normal 0.9-7.0 [facility] Comment on above: Performed By: #### C CARLYN DE JESUS, NESTOR #### [facility] [address] [place] [address] Dr. Joe Shea Erythrocyte distribution width (RBC) [Ratio] 13.4 % Normal 11.0-15.0 [facility] Comment on above: Performed By: #### C CARLYN DE JESUS NESTOR #### [facility] [address] [place] [address] Dr. Joe Shea Hematocrit (Bld) [Volume fraction] 32.3 % Critically low 36.0-48.0 [facility] Comment on above: Performed By: #### C CARLYN DE JESUS, NESTOR #### [facility] [address] [place] [address] Dr. Joe Shea Hemoglobin (Bld) [Mass/Vol] 10.6 g/dL Critically low 12.0-16.0 [facility] Comment on above: Performed By: #### C CARLYN DE JESUS NESTOR #### [facility] [address] [place] [address] Dr. Joe Shea IG # 0.01 10e3/ul Normal 0.00-0.03 [facility] Comment on above: Performed By: #### L BCLH #### [facility] [address] [place] [address] Dr. Joe Shea Performed By: #### C CARLYN DE JESUS, NESTOR #### [facility] [address] [place] [address] Dr. Joe Shea IG % 0.2 % Normal 0.0-0.5 [facility] Comment on above: Performed By: #### L BCLH #### [facility] [address] [place] [address] Dr. Joe Shea Performed By: #### C MP, LIPA, NESTOR #### [facility] [address] [place] [address] Dr. Joe Shea LYMPH # 1.0 103/ul Critically low 1.2-3.8 [facility] Comment on above: Performed By: #### C MP, LIPA, NESTOR #### [facility] [address] [place] [address] Dr. Joe Shea Lymphocytes/100 WBC (Bld) 16.6 % Critically low 20.5-6 0.0 [facility] Comment on above: Performed By: #### C MP, LIPA, NESTOR #### [facility] [address] [place] [address] Dr. Joe Shea MANUAL DIFF REQ NO Normal [facility] Comment on above: Performed By: #### L BCLH #### [facility] [address] [place] [address] Dr. Joe Shea Performed By: #### C MP, LIPA, NESTOR #### [facility] [address] [place] [address] Dr. Joe Shea MCH (RBC) [Entitic mass] 28.3 pg Normal 26.7-34.0 [facility] Comment on above: Performed By: #### C MP, LIPA, NESTOR #### [facility] [address] [place] [address] Dr. Joe Shea MCHC (RBC) [Mass/Vol] 32.8 g/dL Normal 29.9-35.2 [facility] Comment on above: Performed By: #### C MP, LIPA, NESTOR #### [facility] [address] [place] [address] Dr. Joe Shea MCV (RBC) [Entitic vol] 86.4 fL Normal 81.0-99.0 [facility] Comment on above: Performed By: #### L BCLH #### [facility] [address] [place] [address] Dr. Joe Shea Performed By: #### C MP, LIPA, NESTOR #### [facility] [address] [place] [address] Dr. Joe Shea MONO # 0.5 103/ul Normal 0.3-0.8 [facility] Comment on above: Performed By: #### L BCL #### [facility] [address] [place] [address] Dr. Joe Shea Performed By: #### C MP, LIPA, NESTOR #### [facility] [address] [place] [address] Dr. Joe Shea Monocytes/100 WBC (Bld) 9.1 % Normal 1.7-12.0 [facility] Comment on above: Performed By: #### C MP, LIPA, NESTOR #### [facility] [address] [place] [address] Dr. Joe Shea NEUT # 4.3 103/ul Normal 1.4-6.5 [facility] Comment on above: Performed By: #### L BARRY #### [facility] [address] [place] [address] Dr. Joe Shea Performed By: #### C MP, LIPA, NESTOR #### [facility] [address] [place] [address] Dr. Joe Shea Neutrophils/100 WBC (Bld) 71.9 % Normal 43.0-75.0 [facility] Comment on above: Performed By: #### C MP, LIPA, NESTOR #### [facility] [address] [place] [address] Dr. Joe Shea Platelet mean volume (Bld) [Entitic vol] 11.0 fL Normal 9.5-13.5 [facility] Comment on above: Performed By: #### C MP, LIPA, NESTOR #### [facility] [address] [place] [address] Dr. Joe Shea PLT 224 103/ul Normal 150-450 [facility] Comment on above: Performed By: #### C MP, LIPA, NESTOR #### [facility] [address] [place] [address] Dr. Joe Shea RBC 3.74 106/ul Critically low 4.20-5.40 [facility] Comment on above: Performed By: #### C CARLYN DE JESUS, NESTOR #### [facility] [address] [address] [address] Joe Shea WBC 5.9 103/ul Normal 4.0-11.0 [facility] Comment on above: Performed By: #### C CARLYN DE JESUS, NESTOR #### [facility] [address] [place] [address] Dr. Joe Shea ER URINE PROFILEon 2 Bilirubin Ql (U) Negative Normal NEGATIVE [facility] Comment on above: Performed By: #### L BCLH #### [facility] [address] [place] [address] Dr. Joe Shea Clarity (U) CLEAR Normal CLEAR [facility] Comment on above: Performed By: #### L BCL #### [facility] [address] [place] [address] Dr. Joe Shea Color (U) LT. YELLOW Normal YELLOW [facility] Comment on above: Performed By: #### L BCL #### [facility] [address] [place] [address] Dr. Joe CRUZAlthea A micrscopic examination will be performed if indicated. Normal [facility] Comment on above: Performed By: #### L BCL #### [facility] [address] [place] [address] Dr. Joe Shea Glucose Ql (U) Negative Normal NEGATIVE [facility] Comment on above: Performed By: #### L BCL #### [facility] [address] [address] [address] Joe Shea Hemoglobin Ql (U) Negative Normal NEGATIVE [facility] Comment on above: Performed By: #### L BCLH #### [facility] [address] [place] [address] Dr. Joe Shea Ketones Ql (U) Negative Normal NEGATIVE [facility] Comment on above: Performed By: #### L BCLH #### [facility] [address] [place] [address] Dr. Joe Shea LEUKOCYTES Negative Normal NEGATIVE [facility] Comment on above: Performed By: #### L BCL #### [facility] [address] [place] [address] Dr. Joe Shea Nitrite Ql (U) Negative Normal NEGATIVE [facility] Comment on above: Performed By: #### L BARRY #### [facility] [address] [place] [address] Dr. Joe Shea pH (U) 5.5 [pH] Normal 5-9 [facility] Comment on above: Performed By: #### L BARRY #### [facility] [address] [place] [address] Dr. Joe Shea SPEC GRAVITY 1.020 Normal 1.005-<=1.02 5 [facility] Comment on above: Performed By: #### L BARRY #### [facility] [address] [place] [address] Dr. Joe Shea UA PROTEIN Negative Normal NEGATIVE/ TRACE [facility] Comment on above: Performed By: #### L BARRY #### [facility] [address] [place] [address] Dr. Joe Shea UR MICRO IND NOT INDICATED Normal [facility] Comment on above: Performed By: #### L BARRY #### [facility] [address] [place] [address] Dr. Joe Shea Urobilinogen Qn (U) 0.2 {Pascual'U}/dL Normal 0.2 - 1. 0 [facility] Comment on above: Performed By: #### L BARRY #### [facility] [address] [place] [address] Dr. Joe Shea LIPASEon 05-23-2022 Lipase [Catalytic activity/Vol] 63.0 U/L Critically low 73.0-393.0 [facility] Comment on above: Performed By: #### C MP, LIPA, NESTOR #### [facility] [address] [place] [address] Dr. Joe Shea URon 05-23-2022 , QUAL Negative Normal NEGATIVE [facility] Comment on above: Performed By: #### C BC #### [facility] [address] [address] [address] Joe Shea PROF 14(COMP METB)on 022 Albumin [Mass/Vol] 3.7 g/dL Normal 3.4-5.0 [facility] Comment on above: Performed By: #### C MP, LIPA, NESTOR #### [facility] [address] [address] [address] oJe Shea Albumin/Globulin [Mass ratio] 1.4 {ratio} Normal [facility] Comment on above: Performed By: #### C MP, LIPA, NESTOR #### [facility] [address] [place] [address] Dr. Joe Shea ALP [Catalytic activity/Vol] 44 U/L Critically low 46-116 [facility] Comment on above: Performed By: #### C MP, LIPA, NESTOR #### [facility] [address] [place] [address] Dr. Joe Shea ALT [Catalytic activity/Vol] 24 U/L Normal 14-59 [facility] Comment on above: Performed By: #### C MP, LIPA, NESTOR #### [facility] [address] [address] [address] Joe Shea Anion gap [Moles/Vol] 9.1 mmol/L Normal [facility] Comment on above: Performed By: #### C MP, LIPA, NESTOR #### [facility] [address] [place] [address] Dr. Joe Shea AST [Catalytic activity/Vol] 18 U/L Normal 15-37 [facility] Comment on above: Performed By: #### C MP, LIPA, NESTOR #### [facility] [address] [place] [address] Dr. Joe Shea Bilirubin [Mass/Vol] 0.2 mg/dL Normal 0.2-1.0 [facility] Comment on above: Performed By: #### C MP, LIPA, NESTOR #### [facility] [address] [place] [address] Dr. Joe Shea Calcium [Mass/Vol] 8.3 mg/dL Critically low 8.5-10.1 Th [facility] Comment on above: Performed By: #### C MP LIPA, NESTOR #### [facility] [address] [address] [address] Joe Shea Chloride [Moles/Vol] 105 mmol/L Normal 98-107 [facility] Comment on above: Performed By: #### C MP LIPA, NESTOR #### [facility] [address] [address] [address] Joe Shea CO2 [Moles/Vol] 29.7 mmol/L Normal 21.0-32.0 [facility] Comment on above: Performed By: #### C NEAL LIPA, NESTOR #### [facility] [address] [place] [address] Dr. Joe Shea Creatinine [Mass/Vol] 0.61 mg/dL Normal 0.55-1.02 [facility] Comment on above: Performed By: #### C NEAL LIPA, NESTOR #### [facility] [address] [place] [address] Dr. Joe Shea EGFR-AF OMANI >60 Normal >=60 [facility] Comment on above: Performed By: #### C NEAL LIPA, NESTOR #### [facility] [address] [place] [address] Dr. Joe Shea EGFR-NON AF OMANI >60 Normal >=60 [facility] Comment on above: Performed By: #### C NEAL LIPA, NESTOR #### [facility] [address] [place] [address] Dr. Joe Shea Globulin (S) [Mass/Vol] 2.6 g/dL Normal T [facility] Comment on above: Performed By: #### C MP LIPA, NESTOR #### [facility] [address] [place] [address] Dr. Joe Shea Glucose [Mass/Vol] 92 mg/dL Normal 74-106 [facility] Comment on above: Performed By: #### C MP LIPA, NESTOR #### [facility] [address] [place] [address] Dr. Joe Shea Potassium [Moles/Vol] 3.8 mmol/L Normal 3.5-5.1 [facility] Comment on above: Performed By: #### C CARLYN DE JESUS, NESTOR #### [facility] [address] [address] [address] Joe Shea Protein [Mass/Vol] 6.3 g/dL Critically low 6.4-8.2 Th e [facility] Comment on above: Performed By: #### C CARLYN DE JESUS, NESTOR #### [facility] [address] [address] [address] Joe Shea Sodium [Moles/Vol] 140 mmol/L Normal 136-145 [facility] Comment on above: Performed By: #### C CARLYN DE JESUS, NESTOR #### [facility] [address] [place] [address] Dr. Joe Shea Urea nitrogen [Mass/Vol] 9.0 mg/dL Normal 7.0-18.0 [facility] Comment on above: Performed By: #### C CARLYN DE JESUS, NESTOR #### [facility] [address] [place] [address] Dr. Joe Shea Urea nitrogen/Creatinine [Mass ratio] 14.8 mg/mg Normal [facility] Comment on above: Performed By: #### C CARLYN DE JESUS, NESTOR #### [facility] [address] [place] [address] Dr. Joe Shea US SINGLE QUAD RT [...] upper quadrant ultrasound. Electronically authenticated by: SHIRLEY JORGE Date: 2022-05-23 08:29 Normal [facility] AMYLASEon 05-22-2022 Amylase [Catalytic activity/Vol] 50 U/L Normal 25-115 [facility] Comment on above: Performed By: #### A MY, CMP, LIPA #### [facility] [address] [place] [address] Dr. Joe Shea CBC AUTO DIFFon 05-22-2022 BASO # 0.1 103/ul Normal 0.0-0.1 [facility] Comment on above: Performed By: #### C MP LIPA, NESTOR #### [facility] [address] [place] [address] Dr. Joe Shea Basophils/100 WBC (Bld) 0.3 % Normal 0.2-2.0 [facility] Comment on above: Performed By: #### C MP LIPA, NESTOR #### [facility] [address] [place] [address] Dr. Joe Shea EO # 0.0 103/ul Normal 0.0-0.7 [facility] Comment on above: Performed By: #### C MP LIPA, NESTOR #### [facility] [address] [place] [address] Dr. Joe Shea Eosinophils/100 WBC (Bld) 0.2 % Critically low 0.9-7. 0 [facility] Comment on above: Performed By: #### C MP LIPA, NESTOR #### [facility] [address] [place] [address] Dr. Joe Shea Erythrocyte distribution width (RBC) [Ratio] 13.3 % Normal 11.0-15.0 [facility] Comment on above: Performed By: #### C MP LIPA, NESTOR #### [facility] [address] [place] [address] Dr. Joe Shea Hematocrit (Bld) [Volume fraction] 39.0 % Normal 36.0-48.0 [facility] Comment on above: Performed By: #### C MP, LIPA, NESTOR #### [facility] [address] [place] [address] Dr. Joe Shea Hemoglobin (Bld) [Mass/Vol] 12.7 g/dL Normal 12.0-16.0 [facility] Comment on above: Performed By: #### C MP, LIPA, NESTOR #### [facility] [address] [place] [address] Dr. Joe Shea IG # 0.05 10e3/ul Critically high 0.00-0.03 [facility] Comment on above: Performed By: #### C MP, LIPA, NESTOR #### [facility] [address] [place] [address] Dr. Joe Shea IG % 0.3 % Normal 0.0-0.5 [facility] Comment on above: Performed By: #### C MP, LIPA, NESTOR #### [facility] [address] [place] [address] Dr. Joe Shea LYMPH # 0.8 103/ul Critically low 1.2-3.8 [facility] Comment on above: Performed By: #### C MP LIPA, NESTOR #### [facility] [address] [place] [address] Dr. Joe Shea Lymphocytes/100 WBC (Bld) 4.4 % Critically low 20.5-6 0.0 [facility] Comment on above: Performed By: #### C MP LIPA, NESTOR #### [facility] [address] [place] [address] Dr. Joe Shea MANUAL DIFF REQ NO Normal [facility] Comment on above: Performed By: #### C MP, LIPA, NESTOR #### [facility] [address] [place] [address] Dr. Joe Shea MCH (RBC) [Entitic mass] 28.1 pg Normal 26.7-34.0 [facility] Comment on above: Performed By: #### C MP, LIPA, NESTOR #### [facility] [address] [place] [address] Dr. Joe Shea MCHC (RBC) [Mass/Vol] 32.6 g/dL Normal 29.9-35.2 [facility] Comment on above: Performed By: #### C CARLYN DE JESUS, NESTOR #### [facility] [address] [place] [address] Dr. Joe Shea MCV (RBC) [Entitic vol] 86.3 fL Normal 81.0-99.0 [facility] Comment on above: Performed By: #### C HUGO DE JESUSA, NESTOR #### [facility] [address] [place] [address] Dr. Joe Shea MONO # 0.4 103/ul Normal 0.3-0.8 [facility] Comment on above: Performed By: #### C HUGO DE JESUSA, NESTOR #### [facility] [address] [place] [address] Dr. Joe Shea Monocytes/100 WBC (Bld) 2.2 % Normal 1.7-12.0 [facility] Comment on above: Performed By: #### C NEAL LIPA, NESTOR #### [facility] [address] [place] [address] Dr. Joe Shea NEUT # 16.7 103/ul Critically high 1.4-6.5 [facility] Comment on above: Performed By: #### C NEAL LIPA, NESTOR #### [facility] [address] [place] [address] Dr. Joe Shea Neutrophils/100 WBC (Bld) 92.6 % Critically high 43.0- 75.0 [facility] Comment on above: Performed By: #### C NEAL LIPA, NESTOR #### [facility] [address] [place] [address] Dr. Joe Shea Platelet mean volume (Bld) [Entitic vol] 11.0 fL Normal 9.5-13.5 [facility] Comment on above: Performed By: #### C NEAL LIPA, NESTOR #### [facility] [address] [place] [address] Dr. Joe Shea PLT 323 103/ul Normal 150-450 [facility] Comment on above: Performed By: #### C CARLYN DE JESUS, NESTOR #### [facility] [address] [address] [address] Joe Shea RBC 4.52 106/ul Normal 4.20-5.40 [facility] Comment on above: Performed By: #### C CARLYN DE JESUS, NESTOR #### [facility] [address] [place] [address] Dr. Joe Shea WBC 18.0 103/ul Critically high 4.0-11.0 [facility] Comment on above: Performed By: #### C CARLYN DE JESUS AMY #### [facility] [address] [place] [address] Dr. Joe Shea ER URINE PROFILEon 2 Bilirubin Ql (U) Negative Normal NEGATIVE [facility] Comment on above: Performed By: #### Althea GTZ #### [facility] [address] [place] [address] Dr. Joe Shea Clarity (U) CLEAR Normal CLEAR [facility] Comment on above: Performed By: #### Althea GTZ #### [facility] [address] [place] [address] Dr. Joe Shea Color (U) YELLOW Normal YELLOW [facility] Comment on above: Performed By: #### Althea GTZ #### [facility] [address] [place] [address] Dr. Joe YUNG A micrscopic examination will be performed if indicated. Normal [facility] Comment on above: Performed By: #### Althea GTZ #### [facility] [address] [place] [address] Dr. Joe Shea Glucose Ql (U) Negative Normal NEGATIVE [facility] Comment on above: Performed By: #### Althea GTZ #### [facility] [address] [place] [address] Dr. Joe Shea Hemoglobin Ql (U) Negative Normal NEGATIVE [facility] Comment on above: Performed By: #### Althea GTZ #### [facility] [address] [place] [address] Dr. Joe Shea Ketones Ql (U) 15 mg/dl Abnormal NEGATIVE [facility] Comment on above: Performed By: #### lAthea GZT #### [facility] [address] [place] [address] Dr. Joe Shea LEUKOCYTES Negative Normal NEGATIVE [facility] Comment on above: Performed By: #### Althea GTZ #### [facility] [address] [place] [address] Dr. Joe Shea Nitrite Ql (U) Negative Normal NEGATIVE [facility] Comment on above: Performed By: #### Althea GTZ #### [facility] [address] [place] [address] Dr. Joe Shea pH (U) 5.5 [pH] Normal 5-9 [facility] Comment on above: Performed By: #### Althea GTZ #### [facility] [address] [place] [address] Dr. Joe Shea SPEC GRAVITY >=1.030 Abnormal 1.005-<=1.02 5 [facility] Comment on above: Performed By: #### Althea GTZ #### [facility] [address] [place] [address] Dr. Joe Shea UA PROTEIN Negative Normal NEGATIVE/ TRACE [facility] Comment on above: Performed By: #### Althea GTZ #### [facility] [address] [place] [address] Dr. Joe Shea UR MICRO IND NOT INDICATED Normal [facility] Comment on above: Performed By: #### Althea GTZ #### [facility] [address] [place] [address] Dr. Joe Shea Urobilinogen Qn (U) 1.0 {Pascual'U}/dL Normal 0.2 - 1. 0 [facility] Comment on above: Performed By: #### Althea GTZ #### [facility] [address] [place] [address] Dr. Joe Shea LACTATE/LACTIC ACIDon 2021 Lactate [Moles/Vol] 1.0 mmol/L Normal 0.4-1.9 [facility] Comment on above: Performed By: #### C BC #### [facility] [address] [address] [address] Joe Shea LIPASEon 05-22-2022 Lipase [Catalytic activity/Vol] 205.0 U/L Normal 73.0-393.0 [facility] Comment on above: Performed By: #### A MY, CMP, LIPA #### [facility] [address] [address] [address] Joe Shea MRI BRAIN WO CONon [...] LO Date: 2022-05-22 16:17 Normal [facility] URon 05-22-2022 , QUAL Negative Normal NEGATIVE [facility] Comment on above: Performed By: #### Althea GTZ #### [facility] [address] [place] [address] Dr. Joe Shea PROF 14(COMP METB)on 022 Albumin [Mass/Vol] 4.5 g/dL Normal 3.4-5.0 [facility] Comment on above: Performed By: #### Althea GTZ #### [facility] [address] [place] [address] Dr. Joe Shea Albumin/Globulin [Mass ratio] 1.4 {ratio} Normal [facility] Comment on above: Performed By: #### Althea GTZ #### [facility] [address] [address] [address] Joe Shea ALP [Catalytic activity/Vol] 60 U/L Normal 46-116 [facility] Comment on above: Performed By: #### Althea GTZ #### [facility] [address] [address] [address] Joe Shea ALT [Catalytic activity/Vol] 17 U/L Normal 14-59 [facility] Comment on above: Performed By: #### Althea GTZ #### [facility] [address] [address] [address] Joe Shea Anion gap [Moles/Vol] 10.9 mmol/L Normal [facility] Comment on above: Performed By: #### Althea GTZ #### [facility] [address] [place] [address] Dr. Joe Shea AST [Catalytic activity/Vol] 19 U/L Normal 15-37 [facility] Comment on above: Performed By: #### Althea GTZ #### [facility] [address] [address] [address] Joe Shea Bilirubin [Mass/Vol] 0.8 mg/dL Normal 0.2-1.0 [facility] Comment on above: Performed By: #### Althea GTZ #### [facility] [address] [place] [address] Dr. Joe Shea Calcium [Mass/Vol] 9.0 mg/dL Normal 8.5-10.1 [facility] Comment on above: Performed By: #### Althea GTZ #### [facility] [address] [place] [address] Dr. Joe Shea Chloride [Moles/Vol] 102 mmol/L Normal 98-107 [facility] Comment on above: Performed By: #### Althea GTZ #### [facility] [address] [address] [address] Joe Shea CO2 [Moles/Vol] 28.7 mmol/L Normal 21.0-32.0 [facility] Comment on above: Performed By: #### Althea TGZ #### [facility] [address] [address] [address] Joe Shea Creatinine [Mass/Vol] 0.73 mg/dL Normal 0.55-1.02 [facility] Comment on above: Performed By: #### Althea GTZ #### [facility] [address] [address] [address] Joe Shea EGFR-AF OMANI >60 Normal >=60 [facility] Comment on above: Performed By: #### Althea GTZ #### [facility] [address] [address] [address] Joe Shea EGFR-NON AF OMANI >60 Normal >=60 [facility] Comment on above: Performed By: #### Althea TGZ #### [facility] [address] [address] [address] Joe Shea Globulin (S) [Mass/Vol] 3.2 g/dL Normal [facility] Comment on above: Performed By: #### Althea GTZ #### [facility] [address] [address] [address] Joe Shea Glucose [Mass/Vol] 113 mg/dL Critically high 74-106 [facility] Comment on above: Performed By: #### Althea GTZ #### [facility] [address] [address] [address] Joe Shea Potassium [Moles/Vol] 3.6 mmol/L Normal 3.5-5.1 [facility] Comment on above: Performed By: #### Althea GTZ #### [facility] [address] [address] [address] Joe Shea Protein [Mass/Vol] 7.7 g/dL Normal 6.4-8.2 [facility] Comment on above: Performed By: #### Althea GTZ #### [facility] [address] [address] [address] Joe Shea Sodium [Moles/Vol] 138 mmol/L Normal 136-145 [facility] Comment on above: Performed By: #### Althea GTZ #### [facility] [address] [address] [address] Joe Shea Urea nitrogen [Mass/Vol] 9.0 mg/dL Normal 7.0-18.0 [facility] Comment on above: Performed By: #### Althea GTZ #### [facility] [address] [place], [place] [address] Dr. Joe Shea Urea nitrogen/Creatinine [Mass ratio] 12.3 mg/mg Normal [facility] Comment on above: Performed By: #### Althea GTZ #### [facility] [address] [place], [place] [address] Dr. Joe Shea XR CHEST 2 Von [...] by: ANA COTE Date: 2022-05-22 02:56 Normal [facility] PROGESTERONEon 05-08-2022 Progesterone 18.1 ng/mL Normal [facility] Comment on above: Result Comment: Foll icular phase 0.1 - 0.9 Luteal phase 1.8 - 23.9 Ovulation phase 0.1 - 12.0 First trimester 11.0 - 44.3 Second trimester 25.4 - 83.3 Third trimester 58.7 - 214.0 Postmenopausal 0.0 - 0.1 Performed By: #### C BC #### [facility] [address] [place] [id number] [address] Joe Shea DHEA SERUMon 04-12-2022 Dehydroepiandrosterone (DHEA) 577 ng/dL Normal 31-701 [facility] Comment on above: Result Comment: Age [...] 89 Performed By: #### C BC #### [facility] [address] [place], [place] [address] Dr. Joe Shea PROGESTERONEon 04-10-2022 Progesterone 16.0 ng/mL Normal [facility] Comment on above: Result Comment: Foll icular phase 0.1 - 0.9 Luteal phase 1.8 - 23.9 Ovulation phase 0.1 - 12.0 First trimester 11.0 - 44.3 Second trimester 25.4 - 83.3 Third trimester 58.7 - 214.0 Postmenopausal 0.0 - 0.1 Performed By: #### Althea GTZ #### [facility] [address] [place] [address] Dr. Joe Shea DHEA-SULFATEon 04-06-2022 DHEA-Sulfate 241.0 ug/dL Normal 110.0-431.7 [facility] Comment on above: Performed By: #### Althea GTZ #### [facility] [address] [place] [address] Dr. Joe Shea FSHon 04-06-2022 FSH 6.6 mIU/mL Normal [facility] Comment on above: Result Comment: Adul t Female: Follicular phase 3.5 - 12.5 Ovulation phase 4.7 - 21.5 Luteal phase 1.7 - 7.7 Postmenopausal 25.8 - 134.8 Performed By: #### Althea GTZ #### [facility] [address] [place] [address] Dr. Joe Shea LUTEINIZING HORMONE (LH)on LH 19.8 mIU/mL Normal [facility] Comment on above: Result Comment: Adul t Female: Follicular phase 2.4 - 12.6 Ovulation phase 14.0 - 95.6 Luteal phase 1.0 - 11.4 Postmenopausal 7.7 - 58.5 Performed By: #### L BCLH #### [facility] [address] [place] [address] Dr. Joe Shea CBC AUTO DIFFon 04-05-2022 BASO # 0.1 103/ul Normal 0.0-0.1 [facility] Comment on above: Performed By: #### C BC #### [facility] [address] [place] [address] Dr. Joe Shea Basophils/100 WBC (Bld) 0.9 % Normal 0.2-2.0 [facility] Comment on above: Performed By: #### C BC #### [facility] [address] [place] [address] Dr. Joe Shea EO # 0.2 103/ul Normal 0.0-0.7 [facility] Comment on above: Performed By: #### C BC #### [facility] [address] [place] [address] Dr. Joe Shea Eosinophils/100 WBC (Bld) 2.6 % Normal 0.9-7.0 [facility] Comment on above: Performed By: #### C BC #### [facility] [address] [place] [address] Dr. Joe Shea Erythrocyte distribution width (RBC) [Ratio] 13.1 % Normal 11.0-15.0 [facility] Comment on above: Performed By: #### C BC #### [facility] [address] [place] [address] Dr. Joe Shea Hematocrit (Bld) [Volume fraction] 38.2 % Normal 36.0-48.0 [facility] Comment on above: Performed By: #### C BC #### [facility] [address] [place] [address] Dr. Joe Shea Hemoglobin (Bld) [Mass/Vol] 12.3 g/dL Normal 12.0-16.0 [facility] Comment on above: Performed By: #### C BC #### [facility] [address] [place] [address] Dr. Joe Shea IG # 0.01 10e3/ul Normal 0.00-0.03 [facility] Comment on above: Performed By: #### C BC #### [facility] [address] [place] [address] Dr. Joe Shea IG % 0.2 % Normal 0.0-0.5 [facility] Comment on above: Performed By: #### C BC #### [facility] [address] [place] [address] Dr. Joe Shea LYMPH # 1.7 103/ul Normal 1.2-3.8 [facility] Comment on above: Performed By: #### C BC #### [facility] [address] [place] [address] Dr. Joe Shea Lymphocytes/100 WBC (Bld) 29.2 % Normal 20.5-60.0 [facility] Comment on above: Performed By: #### C BC #### [facility] [address] [place] [address] Dr. Joe Shea MANUAL DIFF REQ NO Normal [facility] Comment on above: Performed By: #### C BC #### [facility] [address] [place] [address] Dr. Joe Shea MCH (RBC) [Entitic mass] 28.4 pg Normal 26.7-34.0 [facility] Comment on above: Performed By: #### C BC #### [facility] [address] [place] [address] Dr. Joe Shea MCHC (RBC) [Mass/Vol] 32.2 g/dL Normal 29.9-35.2 [facility] Comment on above: Performed By: #### C BC #### [facility] [address] [place] [address] Dr. Joe Shea MCV (RBC) [Entitic vol] 88.2 fL Normal 81.0-99.0 [facility] Comment on above: Performed By: #### C BC #### [facility] [address] [place] [address] Dr. Joe Shea MONO # 0.5 103/ul Normal 0.3-0.8 [facility] Comment on above: Performed By: #### C BC #### [facility] [address] [place] [address] Dr. Joe Shea Monocytes/100 WBC (Bld) 8.2 % Normal 1.7-12.0 [facility] Comment on above: Performed By: #### C BC #### [facility] [address] [place] [address] Dr. Joe Shea NEUT # 3.4 103/ul Normal 1.4-6.5 [facility] Comment on above: Performed By: #### C BC #### [facility] [address] [address] [address] Joe Shea Neutrophils/100 WBC (Bld) 58.9 % Normal 43.0-75.0 [facility] Comment on above: Performed By: #### C BC #### [facility] [address] [address] [address] Joe Shea Platelet mean volume (Bld) [Entitic vol] 11.5 fL Normal 9.5-13.5 [facility] Comment on above: Performed By: #### C BC #### [facility] [address] [address] [address] Joe Shea PLT 233 103/ul Normal 150-450 [facility] Comment on above: Performed By: #### C BC #### [facility] [address] [place] [address] Dr. Joe Shea RBC 4.33 106/ul Normal 4.20-5.40 [facility] Comment on above: Performed By: #### C BC #### [facility] [address] [place] [address] Dr. Joe Shea WBC 5.8 103/ul Normal 4.0-11.0 [facility] Comment on above: Performed By: #### C BC #### [facility] [address] [place] [address] Dr. Joe Shea GLYCOHEMOGLOBIN A1Con 2021 ADA RECOMMENDATION SEE BELOW Normal [facility] Comment on above: Result Comment: ADA RECOMMENDED LIMIT 4.0 - 6.0 ADA THERAPEUTIC TARGET < 7.0 ACTION SUGGESTED > 7.0 Performed By: #### C CARLYN DE JESUS AMY #### [facility] [address] [address] [address] Joe Shea Glucose [Mass/Vol] 105 mg/dL Normal [facility] Comment on above: Performed By: #### C CARLYN DE JESUS, NESTOR #### [facility] [address] [place] [address] Dr. Joe Shea HbA1c (Bld) [Mass fraction] 5.3 % Normal 4.5-6.2 [facility] Comment on above: Performed By: #### C MP, LIPA, NESTOR #### [facility] [address] [address] [address] Joe Shea TSHon 04-05-2022 TSH 0.609 uIU/mL Normal 0.358-3.740 [facility] Comment on above: Performed By: #### C BC #### [facility] [address] [place], [place] [id number] Dr. Joe Shea US PELVIS AND TRANSVAGon [...] by: ANGIE MEJIA Date: 2022-04-05 17:23 Normal [facility] AMYLASEon 03-10-2022 Amylase [Catalytic activity/Vol] 64 U/L Normal 25-115 [facility] Comment on above: Performed By: #### C BC #### [facility] [address] [place] [address] Dr. Joe Shea CBC AUTO DIFFon 03-10-2022 BASO # 0.1 103/ul Normal 0.0-0.1 [facility] Comment on above: Performed By: #### C BC #### [facility] [address] [place], [place] [address] Dr. Joe Shea Basophils/100 WBC (Bld) 0.6 % Normal 0.2-2.0 [facility] Comment on above: Performed By: #### C BC #### [facility] [address] [place] [address] Dr. Joe Shea EO # 0.3 103/ul Normal 0.0-0.7 [facility] Comment on above: Performed By: #### C BC #### [facility] [address] [place] [address] Dr. Joe Shea Eosinophils/100 WBC (Bld) 1.7 % Normal 0.9-7.0 [facility] Comment on above: Performed By: #### C BC #### [facility] [address] [place] [address] Dr. Joe Shea Erythrocyte distribution width (RBC) [Ratio] 13.1 % Normal 11.0-15.0 [facility] Comment on above: Performed By: #### C BC #### [facility] [address] [place] [address] Dr. Joe Shea Hematocrit (Bld) [Volume fraction] 37.9 % Normal 36.0-48.0 [facility] Comment on above: Performed By: #### C BC #### [facility] [address] [place] [address] Dr. Joe Shea Hemoglobin (Bld) [Mass/Vol] 12.2 g/dL Normal 12.0-16.0 [facility] Comment on above: Performed By: #### C BC #### [facility] [address] [place] [address] Dr. Joe Shea IG # 0.05 10e3/ul Critically high 0.00-0.03 [facility] Comment on above: Performed By: #### C BC #### [facility] [address] [place] [address] Dr. Joe Shea IG % 0.3 % Normal 0.0-0.5 [facility] Comment on above: Performed By: #### C BC #### [facility] [address] [place] [address] Dr. Joe Shea LYMPH # 4.7 103/ul Critically high 1.2-3.8 [facility] Comment on above: Performed By: #### C BC #### [facility] [address] [address] [address] Joe Shea Lymphocytes/100 WBC (Bld) 28.3 % Normal 20.5-60.0 [facility] Comment on above: Performed By: #### C BC #### [facility] [address] [place] [address] Dr. Joe Shea MANUAL DIFF REQ NO Normal [facility] Comment on above: Performed By: #### C BC #### [facility] [address] [place] [address] Dr. Joe Shea MCH (RBC) [Entitic mass] 27.9 pg Normal 26.7-34.0 [facility] Comment on above: Performed By: #### C BC #### [facility] [address] [place] [address] Dr. Joe Shea MCHC (RBC) [Mass/Vol] 32.2 g/dL Normal 29.9-35.2 [facility] Comment on above: Performed By: #### C BC #### [facility] [address] [place] [address] Dr. Joe Shea MCV (RBC) [Entitic vol] 86.5 fL Normal 81.0-99.0 [facility] Comment on above: Performed By: #### C BC #### [facility] [address] [place] [address] Dr. Joe Shea MONO # 0.9 103/ul Critically high 0.3-0.8 [facility] Comment on above: Performed By: #### C BC #### [facility] [address] [place] [address] Dr. Joe Shea Monocytes/100 WBC (Bld) 5.5 % Normal 1.7-12.0 [facility] Comment on above: Performed By: #### C BC #### [facility] [address] [place] [address] Dr. Joe Shea NEUT # 10.5 103/ul Critically high 1.4-6.5 [facility] Comment on above: Performed By: #### C BC #### [facility] [address] [address] [address] Joe Shea Neutrophils/100 WBC (Bld) 63.6 % Normal 43.0-75.0 [facility] Comment on above: Performed By: #### C BC #### [facility] [address] [address] [address] Joe Shea Platelet mean volume (Bld) [Entitic vol] 11.1 fL Normal 9.5-13.5 [facility] Comment on above: Performed By: #### C BC #### [facility] [address] [address] [address] Joe Shea PLT 428 103/ul Normal 150-450 [facility] Comment on above: Performed By: #### C BC #### [facility] [address] [place] [address] Dr. Joe Shea RBC 4.38 106/ul Normal 4.20-5.40 [facility] Comment on above: Performed By: #### C BC #### [facility] [address] [address] [address] Joe Shea WBC 16.6 103/ul Critically high 4.0-11.0 [facility] Comment on above: Performed By: #### C BC #### [facility] [address] [place] [address] ABD/PELV W CONon [...] by: MURALI STRANGE Date: 2022-03-10 16:59 Normal [facility] LIPASEon 03-10-2022 Lipase [Catalytic activity/Vol] 81.0 U/L Normal 73.0-393.0 [facility] Comment on above: Performed By: #### C BC #### [facility] [address] [place] [address] Dr. Joe Shea LIVER PROFILEon 03-10-2022 Albumin [Mass/Vol] 4.2 g/dL Normal 3.4-5.0 [facility] Comment on above: Performed By: #### C BC #### [facility] [address] [place] [address] Dr. Joe Shea Albumin/Globulin [Mass ratio] 1.4 {ratio} Normal [facility] Comment on above: Performed By: #### C BC #### [facility] [address] [place] [address] Dr. Joe Shea ALP [Catalytic activity/Vol] 50 U/L Normal 46-116 [facility] Comment on above: Performed By: #### C BC #### [facility] [address] [address] [address] Joe Shea ALT [Catalytic activity/Vol] 14 U/L Normal 14-59 [facility] Comment on above: Performed By: #### C BC #### [facility] [address] [place] [address] Dr. Joe Shea AST [Catalytic activity/Vol] 13 U/L Critically low 15-37 [facility] Comment on above: Performed By: #### C BC #### [facility] [address] [place] [address] Dr. Joe Shea BILI, CONJUGATED 0.1 mg/dL Normal 0.0-0.2 [facility] Comment on above: Performed By: #### C BC #### [facility] [address] [address] [address] Joe Shea Bilirubin [Mass/Vol] 0.3 mg/dL Normal 0.2-1.0 [facility] Comment on above: Performed By: #### C BC #### [facility] [address] [address] [address] Joe Shea Globulin (S) [Mass/Vol] 3.1 g/dL Normal [facility] Comment on above: Performed By: #### C BC #### [facility] [address] [address] [address] Joe Shea Protein [Mass/Vol] 7.3 g/dL Normal 6.4-8.2 [facility] Comment on above: Performed By: #### C BC #### [facility] [address] [place] [address] Dr. Joe Shea PREG HCG QUALon 03-10-2022 , QUAL Negative Normal NEGATIVE [facility] Comment on above: Performed By: #### L BCLH #### [facility] [address] [place] [address] Dr. Joe Shea PROF CHEM 8 (BAS METB)on Anion gap [Moles/Vol] 17.6 mmol/L Normal [facility] Comment on above: Performed By: #### C MP, LIPA, NESTOR #### [facility] [address] [place] [address] Dr. Joe Shea Calcium [Mass/Vol] 9.0 mg/dL Normal 8.5-10.1 [facility] Comment on above: Performed By: #### C MP, LIPA, NESTOR #### [facility] [address] [place] [address] Dr. Joe Shea Chloride [Moles/Vol] 102 mmol/L Normal 98-107 [facility] Comment on above: Performed By: #### C MP, LIPA, NESTOR #### [facility] [address] [place] [address] Dr. Joe Shea CO2 [Moles/Vol] 23.4 mmol/L Normal 21.0-32.0 [facility] Comment on above: Performed By: #### C CARLYN DE JESUS NESTOR #### [facility] [address] [address] [address] Joe Shea Creatinine [Mass/Vol] 0.84 mg/dL Normal 0.55-1.02 [facility] Comment on above: Performed By: #### C CARLYN DE JESUS, NESTOR #### [facility] [address] [address] [address] Joe Shea EGFR-AF OMANI >60 Normal >=60 [facility] Comment on above: Performed By: #### C CARLYN DE JESUS, NESTOR #### [facility] [address] [address] [address] Joe Shea EGFR-NON AF OMANI >60 Normal >=60 [facility] Comment on above: Performed By: #### C CARLYN DE JESUS, NESTOR #### [facility] [address] [address] [address] Joe Shea Glucose [Mass/Vol] 149 mg/dL Critically high 74-106 [facility] Comment on above: Performed By: #### C CARLYN DE JESUS, NESTOR #### [facility] [address] [address] [address] Joe Shea Potassium [Moles/Vol] 2.9 mmol/L Critically low 3.5-5.1 [facility] Comment on above: Performed By: #### C CARLYN DE JESUS, NESTOR #### [facility] [address] [address] [address] Joe Shea Sodium [Moles/Vol] 139 mmol/L Normal 136-145 [facility] Comment on above: Performed By: #### C CARLYN DE JESUS, NESTOR #### [facility] [address] [address] [address] Joe Shea Urea nitrogen [Mass/Vol] 11.0 mg/dL Normal 7.0-18.0 [facility] Comment on above: Performed By: #### C CARLYN DE JESUS, NESTOR #### [facility] [address] [address] [address] Joe Shea Urea nitrogen/Creatinine [Mass ratio] 13.1 mg/mg Normal [facility] Comment on above: Performed By: #### C CARLYN DE JESUS AMY #### [facility] [address] [address] [address] Joe Shea XR CSPINE 2_3 VIEWSon [...] MEJIA Date: 2022-01-18 08:03 Normal [facility] C BP Strepon 12-23-2019 C BP Strep This is strictly a screening test for Strep Group A( Streptococcus pyogenes). No other pathogens will be noted. Final Backup plate negative for Group A Streptococus Resulted at [facility] Normal [facility] Comment on above: Performed By: #### B P #### [facility] (DEFAULT) [address] [id number] [place] [id number] [id number] Ambulatory Patient Education on 12-21-2019 Ambulatory Patient [...] a child 2 years or older. ? [id number] [employer] [address] [place] [address], [place] [address]. All rights reserved. This information is not intended as a substitute for professional medical care. Always follow your healthcare professional's instructions. Strep today is Negative. Will send for culture to [facility] and notify if it returns positive. Take medication as prescribed. Discontinue for a negative strep culture. Discard and replace toothbrush after taking antibiotics for at least 24 hours. May use jber-bpr-xeodnba Tylenol and Motrin for pain relief. May use of klck-etv-jnaizho Chloraseptic throat spray, lozenges, cool or warm [...] tabs, 0 Refill(s), 12/26/19 14:42:00 EDT, Pharmacy: [facility] [id number] [facility] [place] Trackon 12-21-2019 BVO Red Swab # 1 [facility] Comment on above: Performed By: #### [facility] Tracking Order #### [facility] [address] [place] [address] Urgent Care Office/Clinic No sabiha 12-21-2019 Urgent [...] POC: negative. Swab will be sent to [facility] for culture. We will call if positive and treat appropriately. Additional Vitals Body Mass Index Measured: 18.43 kg/m2 Peripheral Pulse Rate: 111 bpm High Assessment/Plan 1. Sore throat Strep today is Negative. Will send for culture to [facility] and notify if it returns positive. Take medication as prescribed. Discontinue for a negative strep culture. Discard and replace toothbrush after taking antibiotics for at least 24 hours. May use mwov-lsr-igcnocn Tylenol and Motrin for pain relief. May use of leck-yly-khirudw Chloraseptic throat spray, lozenges, cool or warm [...] tabs, 0 Refill(s), 12/26/19 14:42:00 EDT, Pharmacy: [facility] [id number] Physician Comments Centor criteria [...] by Rosa Fitch 12/21/19 15:01 EDT Normal [facility] Vital Signs Date Time Vital Sign Value Performing Clinician Facility 03-28-2023 10:16-0400 Body height 157.48 cm Referring Provider Unknown [id number] [address] [place] Work Phone: 03-28-2023 10:16-0400 Body mass index (BMI) [Ratio] 23.78 kg/m2 Referring Provider Unknown [id number] [address] [place] Work Phone: 03-28-2023 10:16-0400 Body surface area Derived from formula 1.59 m2 Referring Provider Unknown [id number] [address] [place] Work Phone: 03-28-2023 10:16-0400 Body weight 58.97 kg Referring Provider Unknown [id number] [address] [place] Work Phone: 03-28-2023 10:16-0400 Diastolic blood pressure 65 mm[Hg] Referring Provider Unknown [id number] 1200 [place] Work Phone: 03-28-2023 10:16-0400 Heart rate 96 /min Referring Provider Unknown [id number] [address] [place] Work Phone: 03-28-2023 10:16-0400 Systolic blood pressure 107 mm[Hg] Referring Provider Unknown [id number] [address] [place] Work Phone: 03-28-2023 10:16-0400 0 1 Referring Provider Unknown [id number] 1200 [place] Work Phone: Comment on above: [employer] 02-14-2023 09:15-0400 Body height 154.94 cm Filippo Larson Other [employer] Other 02-14-2023 09:15-0400 Body mass index (BMI) [Ratio] 21.73 kg/m2 Filippo Larson Other [employer] Other 02-14-2023 09:15-0400 Body weight 52.16 kg Filippo Larson Other [employer] Other 02-14-2023 09:15-0400 Diastolic blood pressure 68 mm[Hg] Filippo Larson Other [employer] Other 02-14-2023 09:15-0400 Systolic blood pressure 96 mm[Hg] Filippo Larson Other [employer] Other 07-17-2022 14:26-0500 Blood Pressure Location Mayito LIM [facility] [place] 07-17-2022 14:26-0500 Diastolic blood pressure 70 mm[Hg] Mayito OBANDOL [facility] [place] 07-17-2022 14:26-0500 Heart rate 70 /min Mayito OBANDOL [facility] [place] 07-17-2022 14:26-0500 Respiratory rate 16 /min Mayito LIM [facility] [place] 07-17-2022 14:26-0500 Systolic blood pressure 102 mm[Hg] Mayito LIM [facility] [place] 03-09-2020 20:24-0400 BP Diastolic 61 mm[Hg] PHYSICIAN NO [facility] 03-09-2020 20:24-0400 BP Systolic 117 mm[Hg] PHYSICIAN NO [facility] 03-09-2020 20:24-0400 Pulse (Heart Rate) 85 /min PHYSICIAN NO [facility] 03-09-2020 20:24-0400 Pulse Oximetry 100 % PHYSICIAN NO [facility] 03-09-2020 20:24-0400 Respiratory Rate 24 /min PHYSICIAN NO [facility] 03-09-2020 18:49-0400 BMI (Body Mass Index) 20 kg/m2 PHYSICIAN NO [facility] 03-09-2020 18:49-0400 Body Temperature 98.7 [degF] PHYSICIAN NO [facility] 03-09-2020 18:49-0400 Body weight 49.7 kg PHYSICIAN NO [facility] 03-09-2020 18:49-0400 Height 157.48 cm PHYSICIAN NO [facility] Encounters Encounter Date Encounter Type Care Provider Facility Start: 07-17-2023 End: 07-18-2023 ambulatory CECIL R ELIZABETH [facility] Start: 07-16-2023 End: 07-16-2023 ambulatory CECIL ELIZABETH Not Available Start: 07-09-2023 End: 07-09-2023 ambulatory CECIL ELIZABETH Not Available Start: 07-08-2023 End: 07-08-2023 ambulatory LYLY SMITH [facility] Start: 07-08-2023 End: 07-08-2023 Office outpatient visit 15 minutes Paulie Cervantes MD Work Phone: Maternal- Medicine at [facility] Comment on above: 34 weeks gestation o f (Primary Dx); Poor growth affecting management of mother in third trimester, fetus 1 of multiple gestation; Dichorionic diamniotic twin in third trimester; Anxiety during Start: 07-04-2023 Orders Only Freddy Christensen rnal- Medicine at [facility] Comment on above: Dichorionic diamniot ic twin in third trimester (Primary Dx); Poor growth affecting management of mother in third trimester, fetus 1 of multiple gestation Start: 07-03-2023 End: 07-04-2023 ambulatory AMADEO HEATON [facility] Start: 06-11-2023 End: 06-11-2023 ambulatory NESTOR PRICE Not Available Start: 05-28-2023 End: 05-28-2023 ambulatory CECIL QUINTANA Not Available Start: 05-14-2023 End: 05-14-2023 ambulatory NESTOR PRICE Not Available Start: 03-28-2023 Office consultation new/estab patient 80 min Referring Provider Unknown [id number] [address] [place] Work Phone: Start: 03-28-2023 Patient encounter procedure Referring Provider Unknown [id number] [address] [place] Work Phone: Start: 03-28-2023 ambulatory Ramakrishna Schwarz Facility :[facility] Start: 02-14-2023 End: 02-14-2023 ambulatory Filippo Larson Other [employer] Other Start: 02-14-2023 Office outpatient vi sit 15 minutes Filippo Larson [facility] Start: 11-28-2022 End: 11-28-2022 ambulatory [...] examination DR CECIL QUINTANA . [facility] Start: 07-06-2022 End: 07-07-[address] CECIL QUINTANA . Facility:[facility] Start: 07-06-2022 End: 07-07-2022 Encounter for preprocedural laboratory examination DR CECIL QUINTANA . Facility:[facility] Start: 06-15-2022 End: 06-16-[address] CECIL QUINTANA . Facility:[facility] Start: 06-11-2022 End: 06-12-2022 ambulatory JUANJOSE VIRAMONTES Facility:[facility] Start: 06-08-2022 ambulatory SUKI CONDE PROVIDER Facility:[facility] Start: 05-31-2022 End: 06-01-[address] [...] 03-09-2020 Emergency department patient visit PHYSICIAN KIMI [facility] Start: 04-27-2014 End: 04-27-2014 Telephone encounter Noa Dimas MD Work Phone: Reproductive Endocrinology Infertility Procedures Date Procedure Procedure Detail Performing Clinician Start: 10-25-2020 Microscopic observation [Identifier] in Cervix by Cyto stain Freddy Hughes STONE RIGGER Colonoscopy Mayito NILL Dilation and curettage Temo evonne NILL Dilation and curettage Temo el NILL Esophagogastroduodenoscopy M ichael NILL Excision of cyst of ovary Mi real NILL Laparoscopy Mayito NILL Plan of Treatment Date Care Activity Detail Author Start: 05-28-2032 DTaP,Tdap and Td Vaccines (8 - Td or Tdap) DTaP,Tdap and Td Vaccines (8 - Td or Tdap) [facility] Start: 07-04-2024 End: 07-04-2024 US MFM with or without consult US MFM with or without consult Imaging Routine Dichorionic diamniotic twin in third trimester Poor growth affecting management of mother in third trimester, fetus 1 of multiple gestation Expected: 07/04/2024 (Approximate), Expires: [facility]04/[facility] Work Phone: Comment on above: Expected: 07/04/2024 (Approximate), Expires: 07/04/2024 Start: 06-03-2024 Adult BMI Screening Adult BMI Screen ing [facility] Start: 06-03-2024 Tobacco Screening Tobacco Screening [facility] Start: 2024 Screening for Chlamy carroll trachomatis Chlamydia Screening [facility] Start: 10-26-2023 Screening for malign ant neoplasm of cervix Pap Smear [facility] Start: 07-17-2023 End: 07-17-2023 Patient encounter procedure 07/17/2023 9:30 AM EST Appointment [facility] [address] [place] [phone] [facility] Start: 07-08-2023 End: 07-08-2023 Telemedicine consultation with patient 07/08/2023 1:00 PM EST Telemedicine Maternal- Medicine at [facility] [address] [place] [phone] Paulie Cervantes MD [address], [place] [id number] Lyly Smith MD [address] [place], [place] [id number] [facility] Start: 03-01-2023 Influenza vaccination Influenza Vacc ine [facility] Start: 03-01-2021 Influenza vaccination INFLUENZ A (Season Ended) [facility] Start: 02-28-2020 PAP TESTING PAP TESTING [facility] Start: 2018 Urine microalbumin profile DTAP,TDAP,TD (1 - Tdap) [facility] Start: 2017 Adult BMI Follow Up Plan Adult BMI Follow Up Plan [facility] Start: 2017 CHLAMYDIA SCREENING (18-24) CHLAMYDIA SCREENING (18-24) [facility] Start: 2017 GC (GONORRHEA) SCREE KRUNAL (18-24) GC (GONORRHEA) SCREENING (18-24) [facility] Start: 2017 HEPATITIS C SCREENING HEPATITIS C SC REENING [facility] Start: 2017 HIV SCREENING HIV SCREENING [facility] Start: 2011 Adult depression screening assessment DEPRESSION SCREENING [facility] Start: 2010 HPV VACCINE (1 - 2-d ose series) HPV VACCINE (1 - 2-dose series) [facility] Patient Education Anxiety (ED) [facility] Patient referral [facility] Immunizations Immunization Date Immunization Notes Care Provider Fa cility 01-05-2022 influenza virus vaccine, unspecified formulation Freddy Hughes [facility] NEGATED: Highlighted row has not occurred!07-17-2022 influenza virus vaccine, unspecified formulation Mayito LIM [facility] [place] Payers Date Payer Category Payer Unknown 2013 Unknown [facility] ZZZOH PPO [employer] [id number] 2013-2014 PPO [id number] 1999 Unknown [id number] 2.16.840.1.199337.3.579.2.727 1999 Unknown [id number] 2.16.840.1.380651.3.579.2.727 1999 Unknown [id number] 2.16.840.1.642238.3.579.2.593 1999 Unknown [id number] 2.16.840.1.117344.3.579.2.593 1999 Unknown [id number] 2.16.840.1.648625.3.579.2.593 1999 Unknown [id number] 2.16.840.1.876215.3.579.2.593 1999 Unknown [id number] 2.16.840.1.663360.3.579.2.593 1999 Unknown [id number] 2.16.840.1.339165.3.579.2.593 1999 Unknown [id number] 2.16.840.1.198777.3.579.2.593 1999 Unknown [id number] 2.16.840.1.545596.3.579.2.593 1999 Unknown [id number] 2.16.840.1.748462.3.579.2.593 1999 Unknown [id number] 2.16.840.1.821600.3.579.2.593 1999 Unknown [id number] 2.16.840.1.915564.3.579.2.593 1999 Unknown [id number] 2.16.840.1.011714.3.579.2.593 1999 Unknown [id number] 2.16.840.1.821524.3.579.2.593 1999 Unknown [id number] 2.16.840.1.297058.3.579.2.593 1999 Unknown [id number] 2.16.840.1.709584.3.579.2.593 1999 Unknown [id number] 2.16.840.1.131433.3.579.2.593 1999 Unknown [id number] 2.16840.1.742330.3.579.2.593 1999 Unknown [id number] 2.16.840.1.897109.3.579.2.593 1999 Unknown [id number] 2.16.840.1.578885.3.579.2.593 1999 Unknown [id number] 2.16.840.1.943073.3.579.2.593 1999 Unknown [id number] 2.16840.1.694893.3.579.2.593 1999 Unknown [id number] 2.16.840.1.804938.3.579.2.356 1999 Unknown [id number] 2.16.840.1.158722.3.579.2.1259 1999 Unknown [id number] 2.16.840.1.469223.3.579.2.1259 1999 Unknown [id number] 2.16.840.1.019643.3.579.2.1259 1999 Unknown [id number] 2.16.840.1.257619.3.579.2.1259 1999 Unknown [id number] 2.16.840.1.378110.3.579.2.1259 1999 Unknown [id number] 2.16.840.1.850084.3.579.2.1286 1999 Unknown [id number] 2.16.840.1.815618.3.579.2.1286 1999 Unknown [id number] 2.16.840.1.891605.3.579.2.1286 1959 Unknown [id number] 1959 Unknown [id number] 1959 Unknown [id number] Self-pay Self Pay [id number] Unknown Self Pay [id number] Social History Date Type Detail Facility Start: 03-09-2020 Tobacco smoking status [facility] Smoker (finding) [facility] Start: 1999 Sex Assigned At Female [facility] Start: 04-12-2014 Tobacco smoking status [facility] Never smoker [facility] Start: 04-12-2014 End: 04-01-2023 Tobacco use and exposure Never used [facility] Start: 04-12-2014 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) [facility] Start: 1999 Sex Assigned At Not on file [facility] Start: 07-17-2022 End: 04-01-2023 Tobacco smoking status Ex-smoker (finding) [facility] Tobacco smoking status Smokeless tobacco user within last 30 days [facility] Start: 06-03-2023 Sex Assigned At Female [facility] Start: 04-01-2023 End: 06-03-2023 No alcohol use No alcohol use [facility] History of tobacco use Cigarette Smoker [facility] Start: 06-03-2023 Alcohol intake Ex-drinker (finding) [facility] Start: 10-25-2020 Alcohol Comment [facility] Start: 11-22-2022 [facility] NEGATED: Highlighted row Denies History of domestic violence Denies History of domestic violence [id number] [address] [place] Work Phone: Goals Date Patient Goal Desired Activity /State Functional Status Date Assessment Result Facility 07-17-2022 Functional Status N/A [facility] Clinical Notes 04-27-2014 to 07-08-2023 Lyly Smith MD - 07/08/2023 1:00 PM EST Note Date & Type Note Facility 07-08-2023 History of Present illness Narrative Video Visit via Real-time Synchronous Audiovisual Provider Location: [facility] MATERNAL- MEDICINE AT [address] [phone] Patient Location: Patient Location Cracking Still Operator: None Video Visit Consent Statement: I discussed [...] that there are some limitations compared to [id number] evaluations. We elected to proceed. REASON FOR [...] and B, status post 2nd opinion at [facility] Anxiety/ depression, managed on citalopram 40 [...] hypokalemia Anxiety and depression Bipolar 2 disorder ([facility]) Chronic abdominal pain Endometriosis Intractable nausea and [...] and B, status post 2nd opinion at [facility] COUNSELING We reviewed signs symptoms of [...] Serial Doppler studies for growth restriction at [facility] office, Doppler studies remain normal, repeat on 07/17/2023 Delivery scheduled at 37 weeks' gestation with primary OB at local hospital, primary due to male presentation of twin a, breech Patient is scheduled for repeat umbilical artery Doppler assessment in 2 weeks, no future clinic visits with [facility] Thank you for allowing me to participate in Shanon Louise care. If there are any questions, please do not hesitate to call me. Lyly Smith MD Maternal- Medicine [facility] [address] [place] [address] documented in this encounter [facility] 02-14-2023 Evaluation note Encounter Date Diagnosis [...] needed. Retrun visit here in three months. [employer] Other 01-20-2023 NoteChief Complaint consultation for epigastric [...] Reports colonoscopy completed several years ago at [facility] was normal. History of Present Illness 22 yo female with h/o bipolar disorder, anxiety, migraines, referred for intermittent epigastric and LUQ pain, burning, at times sharp/stabbing; occasional N/V; + boating; no food triggers, occurs celia without eating; no hematemesis or melena; no hematochezia, some constipation, improved with stool softeners; had normal EGD and colonoscopy at [facility] in 2016; abdominal operations significant for laparoscopy [...] Mayito Matthews\Date and Time Signed: 07/20/22 14:58 [id number] Note OPERATIVE NOTE OPERATION DATE: 07/10/2021 PROCEDURE: Diagnostic laparoscopy with chromopertubation. PREOPERATIVE DIAGNOSIS: Pelvic pain. POSTOPERATIVE DIAGNOSIS: Pelvic pain, including small endometrial implant posterior cul-de-sac, as well as possible blunted tube on the patient's left side. ANESTHESIA: General. SURGEON: Cecil Quintana D.O. MARZIPAN MOLDER: ISAURO Mccoy URINE OUTPUT: Yellow and clear. BLOOD LOSS: 5 mL. FINDINGS: Slightly blunted tube on the left side, endometriosis posterior cul-de-sac, otherwise normal appearing uterus, tubes and ovaries. Normal appearing appendix. Some adhesions of the bowel to the pelvic and abdominal side wall on the patient's right side. Normal appearing liver. No evidence of Bbpa-Oynr-Wzwgze syndrome. PROCEDURE: The patient was taken back [...] to Recovery [facility] in [facility] conditionThe [id number] NoteOP Note OPERATION DATE: 07/10/2022 PROCEDURE: Diagnostic laparoscopy with chromopertubation. PREOPERATIVE DIAGNOSIS: Pelvic pain, suspected endometriosis, fallopian tube disorder. POSTOPERATIVE DIAGNOSIS: Pelvic pain, suspected endometriosis, fallopian tube disorder, including mild endometriosis, bilateral patent fallopian tubes, small bowel adhesion to the pelvic side wall. ANESTHESIA: General. SURGEON: Cecil Quintana D.O. MARZIPAN MOLDER: ISAURO Mccoy URINE OUTPUT: Yellow and clear. BLOOD LOSS: 5 mL. ADDENDUM: Please note that chromopertubation was performed after methylene blue was placed through the HUMI manipulator. Spillage of methylene blue could be seen from both tubes.[facility] [id number] Instructions* Patient Instructions* Jennifer Lam - 04/27/2014 4:49 PM EDT [phone] - Patient mother would like to speak with a nurse concerning medications that her daughter is taking. Electronically signed by Jennifer Barnes [facility] at 04/27/2014 4:50 PM EDT [facility] Narrative - Reported * the patient is seen at the request of Dr. Gonzales at [facility] for consultation regarding second opinion for placental hemorrhage; EDC 08/15/2023 * FC MA [id number] [address] [place] Work Phone: chini complaint Narrative - Reported* the patient is seen at the request of Dr. Gonzales at [facility] for consultation regarding second opinion for placental hemorrhage; EDC 08/15/2023 * FC MA [id number] [address] [place] Work Phone: evaluation + Plan note No data available for this section [facility] [place] Evaluation note* Diagnosis Dichorionic diamniotic twin in third trimester- Primary Poor growth affecting management of mother in third trimester, fetus 1 of multiple gestation [facility] Diagnosis 34 weeks gestation of - Primary Poor growth affecting management of mother in third trimester, fetus 1 of multiple gestation Dichorionic diamniotic twin in third trimester Anxiety during documented in this encounter [facility] general Narrative - Reported* Type Description Date Medical History Anxiety Medical History GERD (gastroesophageal reflux di sease) Medical History bipolar Surgical History LAPAROSCOPY-times 2013 Hospitalization History [facility] for abdominal pain & vomiting - ultrasound & CT scans 12/2022 [employer] Other Hospital Discharge instructions No data available for this section [facility] [place] InstructionsNot on filedocumented in this encounter [facility] SystemInstructionsNot on filedocumented in this encounter [facility] No data available for this section [facility] [place] Summary Purpose Family History No Family History [...] with or without consult Amadeo Heaton MD [address] [place] [address] [facility]aternal [facility] [address] [place] [address] Referral ID Status Reason Start Date Expiration Date V isits Requested Visits Authorized [id number] Pending Review 07/04/2023 07/03/2024 1 1 Additional Source Comments INFORMATION SOURCE (unrecogn ized section and content) DATE CREATED AUTHOR 02/04/2020 [facility] DATE CREATED AUTHOR AUTHOR'S ORGANIZ ATION 08/16/2022 Pablo Scottus [facility] DATE CREATED AUTHOR AUTHOR'S ORGANIZ ATION 12/07/2022 [facility] DATE CREATED AUTHOR AUTHOR'S ORGANIZ ATION 04/06/2023 [facility] DATE CREATED AUTHOR AUTHOR'S ORGANIZ ATION 07/17/2023 [facility] dical [facility] DATE CREATED AUTHOR AUTHOR'S ORGANIZ ATION 07/20/2023 [facility] Source Comments (unrecognize d section and content) In the event this informatio n is protected by the Federal Confidentiality of Alcohol and Drug Abuse Patient Records regulations: The Federal rules restrict any use of the information to criminally investigate or prosecute any alcohol or drug abuse patient.[facility] Patient Care team informatio n (unrecognized section and content) Checking Department Supervisor Relationship Specialty Start Date End Date No Pcp, [place] [address] PCP - General Family Medicine 10/25/20 Checking Department Supervisor Relationship Specialty Start Date End Date No Pcp, [place] [address] PCP - General Family Medicine 10/25/20 REASON [...] BE BASED ON THE PRIMARY CLINICAL RECORDS. [employer] [facility]. provides no warranty or guarantee of the accuracy or completeness of information in this document.
[2023-07-22] MEDS: 0.9 % SODIUM CHLORIDE 1,000 ML 1000 ML IV ×2 (15:36→17:22)
[2023-07-22 15:57] LABS: Basophils Percent Auto 0.3 % (0.2-2.0); Eosinophils Percent Auto 0.2 % (0.9-7.0); Hematocrit 34.1 % (36.0-48.0); Hemoglobin 10.7 g/dL (12.0-16.0); Immature Granulocytes Abs Auto 0.29 10^3/uL (0.00-0.03); Immature Granulocytes Pct Auto 2.5 % (0.0-0.5); Lymphocytes Absolute Auto 1.7 10^3/uL (1.2-3.8); Lymphocytes Percent Auto 14.4 % (20.5-60.0); Mean Corpuscular HGB Conc 31.4 g/dL (29.9-35.2); Mean Corpuscular Hemoglobin 25.5 pg (26.7-34.0); Mean Corpuscular Volume 81.4 fL (81.0-99.0); Monocytes Absolute Auto 0.6 10^3/uL (0.3-0.8); Monocytes Percent Auto 5.2 % (1.7-12.0); Neutrophils Absolute Auto 9.2 10^3/uL (1.4-6.5); Neutrophils Percent Auto 77.4 % (43.0-75.0); Platelet Count 212 10^3/uL (150-450); Red Blood Count 4.19 10^6/uL (4.20-5.40); Red Cell Distribution Width 16.7 % (11.0-15.0); White Blood Count 11.8 10^3/uL (4.0-11.0)
[2023-07-22] MEDS: CITRIC ACID/SODIUM CITRATE 30 ML SOLUTION ORACIT SHOHL'S SOLN PO (19:31)
[2023-07-22] MEDS: FAMOTIDINE/PF 20 MG/2 ML VIAL IV (19:32)
[2023-07-22] MEDS: CEFAZOLIN SODIUM/DEXTROSE,ISO 2 GM/50 ML PIGGYBACK IV (19:32)
[2023-07-22] MEDS: METOCLOPRAMIDE HCL 10 MG/2 ML VIAL IVP (19:33)
[2023-07-22] MEDS: LACTATED RINGER'S SOLUTION 1,000 ML 50 ML IV (20:10)
--- NOTE | 2023-07-22 20:28 | P.ON_ITS ---
Brief Operative Note Date of procedure: 07/22/23 Pre-op diagnosis: iup at 36 4/7wks, twin gestation, active labor, elevated bp with focal feat Post-op diagnosis: same as pre-op Procedure: NAME OF PROCEDURE: [ section ] PROCEDURE: Patient was taken back to the Operating Room where she was given a spinal anesthesia with Duramorph without difficulty. She was prepped and draped in the normal sterile fashion. A Pfannenstiel skin incision was then made 2 cm above the symphysis pubis and carried down to underlying rectus fascia using a Bovie. The fascia was incised in the midline and extended laterally using Umanzor scissors. Two Rashida clamps were placed on the superior aspect of the fascia and dissected off the underlying rectus muscles. The same was performed on the inferior aspect as well. The muscles were then in the midline. Peritoneum was identified and entered bluntly. The peritoneum was then extended superiorly and inferiorly with good visualization of the bladder. The bladder blade was inserted. A low transverse incision was made on the patient's uterus and extended laterally digitally. The A was then delivered atraumatically after the bladder blade was removed in the breech position. The infant b was delivered in cephalic position. The cords were clamped and cut. Cord blood was obtained. The infants was handed off to awaiting team. The patient's placenta was spontaneously delivered. The uterus was then exteriorized. The uterus was cleared of all clots and debris. The bladder blade was reinserted. The patient's uterine incision was closed using #0 Vicryl in a running lock fashion. Excellent hemostasis was assured. The uterus was then returned to the patient's abdomen. The patient's abdomen was copiously irrigated using warm saline. Peritoneal gutters were cleared of all clots and debris. Again excellent hemostasis was assured. The patient's peritoneum was closed using 3-0 Vicryl in a running fashion. The patient's fascia was closed using #0 Vicryl in a running fashion. The patient's skin was closed using 4-0 Vicryl subcuticularly. The patient tolerated the procedure well. Sponge, lap, and needle counts were correct x2. The patient was taken to the Recovery Room in stable condition. Anesthesia: spinal Surgeon: Cecil Quintana Adult Education Professional: Juani Roque Estimated blood loss (mL): 575 Pathology: other (placenta) Condition: stable Disposition: PACU Urinary Catheter Management Urinary Catheter Management Urethral: Cath placed during this visit: yes Urethral indwelling: Yes Reason for continuing: epidural catheter Insertion date: 07/22/23 Insertion time: 18:30
--- NOTE | 2023-07-22 20:31 | PM.OBPRCCS ---
Procedure Pre-op/Post-op diagnoses: Pre-Op/Post-Op Diagnoses Operation Date: 07/22/23 18:30 <No data on this case meets the specified criteria> Operation Date: 07/25/23 07:30 <No data on this case meets the specified criteria> Procedure: Procedures Operation Date: 07/22/23 18:30 Actual Procedure Side Surgeon p Not Applicable Cecil Quintana DO Operation Date: 07/25/23 07:30 <No data on this case meets the specified criteria> Electric Dolly Operator: Juani Roque Estimated blood loss (mL): 575 Disposition: floor Anesthesia type: Spinal
[2023-07-22] MEDS: 0.9 % SODIUM CHLORIDE 10 ML SYRINGE - SALINE FLUSH INJ (20:50)
[2023-07-22] MEDS: BUPIVACAINE HCL 0.5% PF 50 MG/10 ML VIAL 20 ML INJ (20:50)
[2023-07-22] MEDS: BUPIVACAINE LIPOSOME/PF 266 MG/13.3 ML VIAL INJ (20:50)
[2023-07-22] MEDS: OXYTOCIN/0.9 % SODIUM CHLORIDE 20 UNITS/1,000 ML PLAST..BAG 200 UNIT IV (21:40)
--- NOTE | 2023-07-22 22:00 | PC.NURSE ---
Addendum entered by Arianna Toro RN 07/22/23 23:10: 2118 Original Note: Pt unable to move legs, or toes at this time.
--- NOTE | 2023-07-22 22:03 | PC.NURSE ---
Addendum entered by Arianna Toro RN 07/22/23 23:10: 2103 Original Note: Pt unable to move toes, feet, or legs at this time.
[2023-07-22 22:53] LABS: Bilirubin Urine NEGATIVE (NEGATIVE); Blood Urine LARGE (NEGATIVE); Clarity Urine CLEAR (CLEAR); Color Urine YELLOW (YELLOW); Glucose Urine UA NEGATIVE (NEGATIVE); Ketones Urine 15 mg/dL (NEGATIVE); Leukocyte Esterase Urine NEGATIVE (NEGATIVE); Nitrite Urine NEGATIVE (NEGATIVE); Protein Urine NEGATIVE (NEG/TRACE); Urobilinogen Urine 0.2 EU/dL (0.2-1.0); pH Urine 5.5 (5.0-9.0)
[2023-07-22 23:06] LABS: Amphetamine Screen Urine NEGATIVE (NEGATIVE); Barbiturates Screen Urine NEGATIVE (NEGATIVE); Benzodiazepines Screen Urine NEGATIVE (NEGATIVE); Buprenorphine Screen Urine NEGATIVE (NEGATIVE); Cannabinoid Screen Urine NEGATIVE (NEGATIVE); Cocaine Screen Urine NEGATIVE (NEGATIVE); Methadone Screen Urine NEGATIVE (NEGATIVE); Methamphetamines Screen Urine NEGATIVE (NEGATIVE); Opiate Screen Urine NEGATIVE (NEGATIVE); Oxycodone Screen Urine NEGATIVE (NEGATIVE); Phencyclidine Screen Urine NEGATIVE (NEGATIVE); Tricyclic Antidepressant Urine NEGATIVE (NEGATIVE)
[2023-07-22 23:09] LABS: Bacteria Urine SMALL #/HPF (NONE SEEN); Cast Seen? NONE SEEN #/LPF (NONE SEEN); Crystals Seen? None Seen #/HPF (None Seen); Mucus Urine SMALL (NONE SEEN); Squamous Epithelial Cell Urine FEW #/LPF (NONE/RARE); Urine Culture Indicated YES
--- NOTE | 2023-07-22 23:10 | PC.NURSE ---
2136- Pt unable to move her toes, feet, and legs
[2023-07-23] VITALS (9 sets, daily range): BP systolic 105–125; BP diastolic 61–79; PULSE 78–92; RESP 16–18; TEMP 36.3–36.8; O2SAT 95–100
--- NOTE | 2023-07-23 01:54 | PC.NURSE ---
Infant B ROM 07/22/20232005 with clear fluid. B head delivered 07/22/2023 at 2006; Infant B delivered 07/22/2023 at 2005.
--- NOTE | 2023-07-23 02:00 | PC.NURSE ---
FHR Infant B 154; FHR A 136.
[2023-07-23] MEDS: CEFAZOLIN SODIUM/DEXTROSE,ISO 2 GM/50 ML PIGGYBACK IV (02:37)
[2023-07-23] MEDS: KETOROLAC TROMETHAMINE 30 MG/ML VIAL IVP ×4 (02:40→23:18)
[2023-07-23 06:07] LABS: Basophils Absolute Auto 0.1 10^3/uL (0.0-0.1); Basophils Percent Auto 0.3 % (0.2-2.0); Hematocrit 25.1 % (36.0-48.0); Hemoglobin 7.7 g/dL (12.0-16.0); Immature Granulocytes Abs Auto 0.28 10^3/uL (0.00-0.03); Immature Granulocytes Pct Auto 1.8 % (0.0-0.5); Lymphocytes Absolute Auto 2.3 10^3/uL (1.2-3.8); Lymphocytes Percent Auto 14.5 % (20.5-60.0); Mean Corpuscular HGB Conc 30.7 g/dL (29.9-35.2); Mean Corpuscular Hemoglobin 25.2 pg (26.7-34.0); Monocytes Absolute Auto 0.9 10^3/uL (0.3-0.8); Monocytes Percent Auto 5.7 % (1.7-12.0); Neutrophils Absolute Auto 12.2 10^3/uL (1.4-6.5); Neutrophils Percent Auto 77.7 % (43.0-75.0); Platelet Count 200 10^3/uL (150-450); Red Blood Count 3.06 10^6/uL (4.20-5.40); Red Cell Distribution Width 16.5 % (11.0-15.0); White Blood Count 15.6 10^3/uL (4.0-11.0)
[2023-07-23] MEDS: ENOXAPARIN SODIUM 40 MG/0.4 ML SYRINGE SUBQ (06:24)
--- NOTE | 2023-07-23 08:06 | P.OBPN_ITS ---
OB - PN: Subj Subjective Patient comments: no complaints [place] status: doing well Exam Constitutional Vital Signs, click to edit/add: Last Vital Signs Temp 97.9 F 07/23/23 07:22 Pulse 78 07/23/23 07:22 Resp 18 07/23/23 07:38 BP 123/79 07/23/23 07:22 Pulse Ox 95 07/23/23 07:38 O2 Del Method Room Air 07/23/23 07:38 Documenting provider has reviewed patient's vital signs: yes Common normals: no apparent distress HENMT Common normals: normocephalic Eye Common normals: EOMs intact bilaterally Neck & C-Spine Common normals: full ROM Lymph Lymphatic: no lymphadenopathy noted Chest Common normals: inspection of chest normal Respiratory Common normals: normal respiratory effort Effort & inspection: able to speak in complete sentences Cardio Common normals: regular rate and regular rhythm Rate: regular rate Rhythm: regular rhythm GI Common normals: Normal to inspection, nondistended, normoactive bowel sounds present Inspection: normal to inspection Auscultation: normoactive bowel sounds Palpation: soft Common normals: no CVA tenderness Back & Pelvis Common normals: no CVA tenderness Extremity Common normals: normal to inspection Neuro Common normals: oriented x3 Sensorium/orientation: awake, alert, oriented to person, oriented to place and oriented to time Speech: speech normal Psych Common normals: mental status grossly normal, thought process normal, cooperative, affect normal and speech normal Appearance: grossly normal Attitude: calm Results Labs Labs: Short CBC 07/22/23 07/23/23 Range/Units 15:30 05:56 WBC 11.8 H 15.6 H (4.0-11.0) 10^3/uL Hgb 10.7 L 7.7 L (12.0-16.0) g/dL Hct 34.1 L 25.1 L (36.0-48.0) % Plt Count 212 200 (150-450) 10^3/uL Urine 07/22/23 Range/Units 18:30 Urine Color Yellow (YELLOW) Urine Clarity Clear (CLEAR) Urine pH 5.5 (5.0-9.0) Ur Specific [place] 1.020 (1.005-1.025) Urine Protein Negative (NEG/TRACE) mg/dL Urine Glucose (UA) Negative (NEGATIVE) mg/dL Urinary Catheter Management Urinary Catheter Management Urethral: Cath placed during this visit: yes Urethral indwelling: Yes Reason for continuing: prolonged immobilization Insertion date: 07/22/23 Insertion time: 18:30 OB - PN: A/P Assessment and Plan (1) Twin gestation in third trimester: Qualifiers: Multiple gestation type: unspecified Qualified Code(s): O30.003 - Twin , unspecified number of placenta and unspecified number of amniotic sacs, third trimester Plan term twin gestation Plan - day: 1 Plan: routine postop care Time Spent with Patient Time: Total time spent is greater than 50% in coordination of care (as documented) at patient's floor/unit and/or counseling patient: Total time spent with greater than 50% in coordination of care (as documented) at patient's floor/unit and/or counseling patient: less than 15 minutes
--- NOTE | 2023-07-23 08:33 | P.OBPN_ITS ---
Exam Constitutional Vital Signs, click to edit/add: Last Vital Signs Temp 97.9 F 07/23/23 07:22 Pulse 78 07/23/23 07:22 Resp 18 07/23/23 07:38 BP 123/79 07/23/23 07:22 Pulse Ox 95 07/23/23 07:38 O2 Del Method Room Air 07/23/23 07:38 Results Labs Labs: Short CBC 07/22/23 07/23/23 Range/Units 15:30 05:56 WBC 11.8 H 15.6 H (4.0-11.0) 10^3/uL Hgb 10.7 L 7.7 L (12.0-16.0) g/dL Hct 34.1 L 25.1 L (36.0-48.0) % Plt Count 212 200 (150-450) 10^3/uL Urine 07/22/23 Range/Units 18:30 Urine Color Yellow (YELLOW) Urine Clarity Clear (CLEAR) Urine pH 5.5 (5.0-9.0) Ur Specific [place] 1.020 (1.005-1.025) Urine Protein Negative (NEG/TRACE) mg/dL Urine Glucose (UA) Negative (NEGATIVE) mg/dL Urinary Catheter Management Urinary Catheter Management Urethral: Cath placed during this visit: yes Urethral indwelling: Yes Reason for continuing: prolonged immobilization Insertion date: 07/22/23 Insertion time: 18:30 OB - PN: A/P Plan - day: 1 Plan: routine postop care Time Spent with Patient Time: Total time spent is greater than 50% in coordination of care (as documented) at patient's floor/unit and/or counseling patient: Total time spent with greater than 50% in coordination of care (as documented) at patient's floor/unit and/or counseling patient: less than 15 minutes
[2023-07-23] MEDS: DOCUSATE SODIUM 100 MG CAPSULE PO ×2 (08:55→23:18)
[2023-07-23] MEDS: FERROUS SULFATE 325 MG TABLET PO ×2 (08:55→23:18)
--- NOTE | 2023-07-23 18:28 | PC.NURSE ---
1730 Patient up ambulating to restroom independently, voiding without difficulty.
[2023-07-24 08:00] VITALS: RESP 18; TEMP 36.2
[2023-07-24] MEDS: ENOXAPARIN SODIUM 40 MG/0.4 ML SYRINGE SUBQ (08:01)
[2023-07-24] MEDS: IBUPROFEN 400 MG TABLET 800 MG PO ×2 (08:19→16:23)
[2023-07-24] MEDS: DOCUSATE SODIUM 100 MG CAPSULE PO ×2 (08:20→21:23)
[2023-07-24] MEDS: FERROUS SULFATE 325 MG TABLET PO ×2 (08:20→21:23)
--- NOTE | 2023-07-24 10:52 | W.PC.ACHO ---
Registration Status: ADM IN Primary Language: Preferred Language: Bengali RN receives report at 0700 from Jj Joyce RN. Active Medications Generic Name Dose Route Start Last Admin Trade Name Freq PRN Reason Stop Dose Admin Al Hydroxide/Mg Hydroxide 2,400 mg 07/22/23 20:31 Magnesium Hydroxide 2,400 Mg/10 Ml Oral.Susp PO Q6H PRN Dyspepsia Docusate Sodium 100 mg 07/23/23 09:00 07/24/23 08:20 Docusate Sodium 100 Mg Capsule PO 100 mg BID EDITA Administration Enoxaparin Sodium 40 mg 07/23/23 06:00 07/24/23 08:01 Enoxaparin Sodium 40 Mg/0.4 Ml Syringe SUBQ 40 mg Q24H EDITA Administration Ferrous Sulfate 325 mg 07/23/23 09:00 07/24/23 08:20 Ferrous Sulfate 325 Mg Tablet PO 325 mg BID EDITA Administration Sodium Chloride 1,000 mls @ 125 mls/hr 07/22/23 15:00 Sodium Chloride 0.9% 1,000 Ml IV .Q8H EDITA Ibuprofen 800 mg 07/22/23 20:31 07/24/23 08:19 Ibuprofen 400 Mg Tablet PO 800 mg Q8H PRN Administration Pain Ketorolac Tromethamine 30 mg 07/22/23 20:31 07/23/23 23:18 Ketorolac Tromethamine 30 Mg/Ml Vial IVP 07/24/23 20:32 30 mg Q6H PRN Administration Pain Ondansetron HCl 4 mg 07/22/23 20:31 Ondansetron Pf 4 Mg/2 Ml Vial IV Q6H PRN Nausea And Vomiting Ondansetron HCl 4 mg 07/22/23 20:31 Ondansetron 4 Mg Rapdis Tablet PO Q6H PRN Nausea And Vomiting Oxycodone/Acetaminophen 1 tab 07/22/23 20:31 Oxycodone Hcl/Acetaminophen 5mg/325mg PO Q4H PRN Pain Scale 4-6 Oxycodone/Acetaminophen 2 tab 07/22/23 20:31 Oxycodone Hcl/Acetaminophen 5mg/325mg PO Q4H PRN Pain Scale 7-10 Senna 17.2 mg 07/22/23 20:00 Sennosides 8.6 Mg Tablet PO QHS PRN Constipation Simethicone 80 mg 07/22/23 20:31 Simethicone 80 Mg Tab.Chew PO QID PRN Abdominal Distention Respiratory Pulse Oximetry 95 Pulse Oximetry 100 Oxygen Delivery Method Room Air Oxygen Delivery Method Room Air Oxygen Delivery Method Room Air Oxygen Delivery Method Room Air Bowels Bowel Pattern No Bowel Movement Date of Last Bowel Movement 07/24/23 Renal Bladder Pattern Continent Bladder Pattern Continent
--- NOTE | 2023-07-24 13:10 | PC.NURSE ---
LC into room , currently has baby girl at breast in cross cradle position. states baby struggles to latch. Baby releases latch and fussy. Discussed LPI behaviors to parents and verbalized understanding. Both relate the Baby boy does not latch well . Discussed feeding at breast, offering easy milk and pumping to maintain supply. Mother verbalized understanding at this time. Aware to call if having difficulty with latch and would like assistance. Mom and babies are learning and needs support.
[2023-07-24] MEDS: ACETAMINOPHEN 500 MG TABLET 1000 MG PO (14:36)
--- NOTE | 2023-07-24 15:36 | PM.OBPN ---
OB - PN: Subj Subjective Patient comments: no complaints and pain well controlled [place] status: doing well Exam Constitutional Vital Signs, click to edit/add: Last Vital Signs Temp 97.1 F L 07/24/23 08:00 Pulse 84 07/23/23 23:30 Resp 18 07/24/23 08:00 BP 124/77 07/23/23 23:30 Pulse Ox 95 07/23/23 23:30 O2 Del Method Room Air 07/24/23 08:00 Documenting provider has reviewed patient's vital signs: yes Common normals: no apparent distress Respiratory Common normals: normal respiratory effort and clear to auscultation bilaterally Cardio Common normals: regular rate and regular rhythm GI Common normals: Normal to inspection, nondistended, normoactive bowel sounds present Extremity Common normals: no calf tenderness and no pedal edema Urinary Catheter Management Urinary Catheter Management Urethral: Cath placed during this visit: yes Urethral indwelling: Yes Reason for continuing: not indwelling catheter Insertion date: 07/22/23 Insertion time: 18:30 OB - PN: A/P Assessment and Plan (1) Twin gestation in third trimester: Qualifiers: Multiple gestation type: unspecified Qualified Code(s): O30.003 - Twin , unspecified number of placenta and unspecified number of amniotic sacs, third trimester Plan - day: 1 Plan: routine postop care and discharge home Time Spent with Patient Time: Total time spent is greater than 50% in coordination of care (as documented) at patient's floor/unit and/or counseling patient: Total time spent with greater than 50% in coordination of care (as documented) at patient's floor/unit and/or counseling patient: less than 15 minutes
[2023-07-24 16:00] VITALS: RESP 16
[2023-07-24 16:15] VITALS: RESP 16; TEMP 36
[2023-07-24] MEDS: OXYCODONE HCL/ACETAMINOPHEN 5MG/325MG 2 TAB PO (20:04)
--- NOTE | 2023-07-24 20:12 | W.PC.ACHO ---
Registration Status: ADM IN Primary Language: Preferred Language: Persian Report given to Mag RN at 1940. Active Medications Generic Name Dose Route Start Last Admin Trade Name Freq PRN Reason Stop Dose Admin Acetaminophen 1,000 mg 07/24/23 13:23 07/24/23 14:36 Acetaminophen 500 Mg Tablet PO 1,000 mg Q6H PRN Administration Pain Al Hydroxide/Mg Hydroxide 2,400 mg 07/22/23 20:31 Magnesium Hydroxide 2,400 Mg/10 Ml Oral.Susp PO Q6H PRN Dyspepsia Celecoxib 40 mg 07/24/23 22:00 Citalopram Hydrobromide 20 Mg Tablet PO HS EDITA Docusate Sodium 100 mg 07/23/23 09:00 07/24/23 08:20 Docusate Sodium 100 Mg Capsule PO 100 mg BID EDITA Administration Enoxaparin Sodium 40 mg 07/23/23 06:00 07/24/23 08:01 Enoxaparin Sodium 40 Mg/0.4 Ml Syringe SUBQ 40 mg Q24H EDITA Administration Ferrous Sulfate 325 mg 07/23/23 09:00 07/24/23 08:20 Ferrous Sulfate 325 Mg Tablet PO 325 mg BID EDITA Administration Hydroxyzine HCl 25 mg 07/24/23 22:00 Hydroxyzine Hcl 25 Mg Tablet PO HS [facility] Sodium Chloride 1,000 mls @ 125 mls/hr 07/22/23 15:00 Sodium Chloride 0.9% 1,000 Ml IV .Q8H EDITA Ibuprofen 800 mg 07/22/23 20:31 07/24/23 16:23 Ibuprofen 400 Mg Tablet PO 800 mg Q8H PRN Administration Pain Ketorolac Tromethamine 30 mg 07/22/23 20:31 07/23/23 23:18 Ketorolac Tromethamine 30 Mg/Ml Vial IVP 07/24/23 20:32 30 mg Q6H PRN Administration Pain Omeprazole 40 mg 07/24/23 21:00 Omeprazole 40 Mg Capsule.Dr PO BID EDITA Ondansetron HCl 4 mg 07/22/23 20:31 Ondansetron Pf 4 Mg/2 Ml Vial IV Q6H PRN Nausea And Vomiting Ondansetron HCl 4 mg 07/22/23 20:31 Ondansetron 4 Mg Rapdis Tablet PO Q6H PRN Nausea And Vomiting Oxycodone/Acetaminophen 1 tab 07/22/23 20:31 Oxycodone Hcl/Acetaminophen 5mg/325mg PO Q4H PRN Pain Scale 4-6 Oxycodone/Acetaminophen 2 tab 07/22/23 20:31 07/24/23 20:04 Oxycodone Hcl/Acetaminophen 5mg/325mg PO 2 tab Q4H PRN Administration Pain Scale 7-10 Senna 17.2 mg 07/22/23 20:00 Sennosides 8.6 Mg Tablet PO QHS PRN Constipation Simethicone 80 mg 07/22/23 20:31 Simethicone 80 Mg Tab.Chew PO QID PRN Abdominal Distention Zolpidem Tartrate 10 mg 07/24/23 18:33 Zolpidem Tartrate 10 Mg Tablet PO QHS PRN Sleep Respiratory Pulse Oximetry 95 Pulse Oximetry 100 Oxygen Delivery Method Room Air Oxygen Delivery Method Room Air Oxygen Delivery Method Room Air Oxygen Delivery Method Room Air Oxygen Delivery Method Room Air Bowels Bowel Pattern No Bowel Movement Date of Last Bowel Movement 07/24/23 Renal Bladder Pattern Continent Bladder Pattern Continent Catheter Urinary Catheter Date of 07/22/23 Insertion [Urethral] Urinary Catheter Time of 18:30 Insertion [Urethral]
[2023-07-24] MEDS: ZOLPIDEM TARTRATE 10 MG TABLET PO (21:23)
[2023-07-24] MEDS: CITALOPRAM HYDROBROMIDE 20 MG TABLET 40 MG PO (21:23)
[2023-07-24] MEDS: OMEPRAZOLE 40 MG CAPSULE.DR PO (21:23)
[2023-07-24] MEDS: HYDROXYZINE HCL 25 MG TABLET PO (21:23)
[2023-07-24 23:16] VITALS: BP 124/65; PULSE 86
[2023-07-24 23:24] VITALS: RESP 16
[2023-07-25] MEDS: IBUPROFEN 400 MG TABLET 800 MG PO ×3 (04:03→22:15)
[2023-07-25] MEDS: OXYCODONE HCL/ACETAMINOPHEN 5MG/325MG 2 TAB PO (04:37)
[2023-07-25 10:30] VITALS: RESP 16
[2023-07-25] MEDS: DOCUSATE SODIUM 100 MG CAPSULE PO ×2 (10:31→22:15)
[2023-07-25] MEDS: FERROUS SULFATE 325 MG TABLET PO ×2 (10:31→22:14)
[2023-07-25] MEDS: OXYCODONE HCL/ACETAMINOPHEN 5MG/325MG 1 TAB PO ×2 (10:31→16:56)
--- NOTE | 2023-07-25 11:48 | PM.PN ---
Progress Note: Subjective Subjective Interval history: When I entered room patient, FOB and twins sound asleep. Review of the Obstetric record did not reveal any concerns. The nurse reported there were no voiced complaints. Patient requesting to be discharged tomorrow. Exam Narrative Exam Narrative: Did not want to wake up patient and FOB with no issues to do exam as nurse reporting no focal issues. Constitutional Vital Signs, click to edit/add: Last Vital Signs Temp 96.8 F L 07/24/23 16:15 Pulse 86 07/24/23 23:16 Resp 16 07/25/23 10:30 BP 124/65 07/24/23 23:16 Pulse Ox 95 07/23/23 23:30 O2 Del Method Room Air 07/25/23 10:30 Progress Note: A&P Assessment and Plan (1) Twin gestation in third trimester: Assessment and Plan: S/P CS PRIMARY FOR TWIN GESTATION, POD/PPD 3. PATIENT REQUESTING DISCHARGE TOMORROW. BOTTLE FEEDING. NO CONCERNS PER NURSING REPORT. DID NOT WANT TO WAKE UP FROM NEEDED SLEEP TO DO EXAM WHEN NURSING NOR PATIENT VOICING ANY CONCERNS. WILL STOP IN LATER TO DO. Qualifiers: Multiple gestation type: unspecified Qualified Code(s): O30.003 - Twin , unspecified number of placenta and unspecified number of amniotic sacs, third trimester Plan ROUTINE PO AND POST CARE. DISCHARGE TOMORROW. NEEDS SPORTS BRA TO INHIBIT MILK PRODUCTION. Urinary Catheter Management Urinary Catheter Management Urethral: Cath placed during this visit: yes, but has since been removed by the nurse Urethral indwelling: No Reason for continuing: decision to DC catheter Insertion date: 07/22/23 Insertion time: 18:30 Removal date: 07/23/23 Removal time: 08:00
[2023-07-25] MEDS: CITALOPRAM HYDROBROMIDE 20 MG TABLET 40 MG PO (22:13)
[2023-07-25] MEDS: OMEPRAZOLE 40 MG CAPSULE.DR PO (22:14)
[2023-07-25] MEDS: ENOXAPARIN SODIUM 40 MG/0.4 ML SYRINGE SUBQ (22:15)
[2023-07-25] MEDS: HYDROXYZINE HCL 25 MG TABLET PO (22:15)
[2023-07-26 01:28] VITALS: TEMP 35.8
[2023-07-26 01:29] VITALS: BP 118/60; PULSE 93; RESP 16; TEMP 36.1
--- NOTE | 2023-07-26 07:31 | W.PC.ACHO ---
Registration Status: ADM IN Primary Language: Preferred Language: Kyrgyz report received from Alicia Brown RN at 0700. Active Medications Generic Name Dose Route Start Last Admin Trade Name Freq PRN Reason Stop Dose Admin Acetaminophen 1,000 mg 07/24/23 13:23 07/24/23 14:36 Acetaminophen 500 Mg Tablet PO 1,000 mg Q6H PRN Administration Pain Al Hydroxide/Mg Hydroxide 2,400 mg 07/22/23 20:31 Magnesium Hydroxide 2,400 Mg/10 Ml Oral.Susp PO Q6H PRN Dyspepsia Celecoxib 40 mg 07/24/23 22:00 07/25/23 22:13 Citalopram Hydrobromide 20 Mg Tablet PO 40 mg HS EDITA Administration Docusate Sodium 100 mg 07/23/23 09:00 07/25/23 22:15 Docusate Sodium 100 Mg Capsule PO 100 mg BID EDITA Administration Enoxaparin Sodium 40 mg 07/23/23 06:00 07/25/23 22:15 Enoxaparin Sodium 40 Mg/0.4 Ml Syringe SUBQ 40 mg Q24H EDITA Administration Ferrous Sulfate 325 mg 07/23/23 09:00 07/25/23 22:14 Ferrous Sulfate 325 Mg Tablet PO 325 mg BID EDITA Administration Hydroxyzine HCl 25 mg 07/24/23 22:00 07/25/23 22:15 Hydroxyzine Hcl 25 Mg Tablet PO 25 mg HS EDITA Administration Sodium Chloride 1,000 mls @ 125 mls/hr 07/22/23 15:00 Sodium Chloride 0.9% 1,000 Ml IV .Q8H EDITA Ibuprofen 800 mg 07/22/23 20:31 07/25/23 22:15 Ibuprofen 400 Mg Tablet PO 800 mg Q8H PRN Administration Pain Omeprazole 40 mg 07/24/23 21:00 07/25/23 22:14 Omeprazole 40 Mg Capsule.Dr PO 40 mg BID EDITA Administration Ondansetron HCl 4 mg 07/22/23 20:31 Ondansetron Pf 4 Mg/2 Ml Vial IV Q6H PRN Nausea And Vomiting Ondansetron HCl 4 mg 07/22/23 20:31 Ondansetron 4 Mg Rapdis Tablet PO Q6H PRN Nausea And Vomiting Oxycodone/Acetaminophen 1 tab 07/22/23 20:31 07/25/23 16:56 Oxycodone Hcl/Acetaminophen 5mg/325mg PO 1 tab Q4H PRN Administration Pain Scale 4-6 Oxycodone/Acetaminophen 2 tab 07/22/23 20:31 07/25/23 04:37 Oxycodone Hcl/Acetaminophen 5mg/325mg PO 2 tab Q4H PRN Administration Pain Scale 7-10 Senna 17.2 mg 07/22/23 20:00 Sennosides 8.6 Mg Tablet PO QHS PRN Constipation Simethicone 80 mg 07/22/23 20:31 Simethicone 80 Mg Tab.Chew PO QID PRN Abdominal Distention Zolpidem Tartrate 10 mg 07/24/23 18:33 07/24/23 21:23 Zolpidem Tartrate 10 Mg Tablet PO 10 mg QHS PRN Administration Sleep Respiratory Oxygen Delivery Method Room Air Oxygen Delivery Method Room Air Renal Bladder Pattern Continent Bladder Pattern Continent Catheter Urinary Catheter Date of 07/22/23 Insertion [Urethral] Urinary Catheter Time of 18:30 Insertion [Urethral] Date Urinary Catheter Removed 07/23/23 [Urethral] Time Urinary Catheter 08:00 Discontinued [Urethral]
[2023-07-26 09:50] VITALS: RESP 16
[2023-07-26] MEDS: FERROUS SULFATE 325 MG TABLET PO (09:58)
[2023-07-26] MEDS: DOCUSATE SODIUM 100 MG CAPSULE PO (09:58)
[2023-07-26] MEDS: IBUPROFEN 400 MG TABLET 800 MG PO (09:58)
[2023-07-26 09:59] VITALS: BP 106/55; PULSE 73
--- NOTE | 2023-07-26 13:12 | PM.OBDS ---
DS: Providers Provider Date of admission: 07/22/23 14:02 Primary care physician: Shan Moya MD Admitting clinician: Cecil Quintana Consults: 07/22/23 Consult to Anesthesiology Routine Consulting Provider: Cecil Quintana Reason for consultation: pre op Discharging clinician: Marilee Badillo Anticipated date of discharge: 07/26/23 DS: Diagnosis Discharge Diagnosis (1) Twin gestation in third trimester: Assessment and plan: delivered without complication Qualifiers: Multiple gestation type: unspecified Qualified Code(s): O30.003 - Twin , unspecified number of placenta and unspecified number of amniotic sacs, third trimester (2) Delivery by section: Assessment and plan: delivery without complication Plan discharge home, have excellent supports, verbal and written instructions given with stated understanding, scripts provided, pumping and then feeding twins with bottle, drink 10 eight ounce glasses of water a day, call for problem or concern OB - DS: Summary Hospital Course Hospital Course: uncomplicated Time spent discussing smoking cessation with patient: 3 to 10 minutes Peripartum Data - Procedures: Procedures Operation Date: 07/22/23 18:30 Actual Procedure Side Surgeon p Not Applicable Cecil Quintana DO Operation Date: 07/25/23 07:30 <No data on this case meets the specified criteria> Peripartum Data - Vaginal Delivery Procedures: Procedures Operation Date: 07/22/23 18:30 Actual Procedure Side Surgeon p Not Applicable Cecil Quintana DO Operation Date: 07/25/23 07:30 <No data on this case meets the specified criteria> Complications complications: none Infant Delivery method: section Gender: male (had boy and girl twin babies) A Gender: male B Gender: female Status at Discharge Cognitive/behavioral status at discharge: wnl Functional status at discharge: independent ambulation Time Spent with Patient Time attestation: Total time spent providing and/or coordinating discharge services: Time spent: less than 30 minutes Exam Constitutional Vital Signs, click to edit/add: Last Vital Signs Temp 97 F L 07/26/23 01:29 Pulse 73 07/26/23 09:59 Resp 16 07/26/23 09:50 BP 106/55 07/26/23 09:59 Pulse Ox 95 07/23/23 23:30 O2 Del Method Room Air 07/26/23 09:50 Documenting provider has reviewed patient's vital signs: yes Common normals: no apparent distress, oriented x3, no limitations, healthy appearing, alert and well nourished HENMT Common normals: normocephalic and head/scalp atraumatic Eye Pupil: PERRL and accommodation reflex normal Neck & C-Spine Common normals: full ROM and supple Respiratory Common normals: normal respiratory effort and no retractions Cardio Common normals: regular rate and regular rhythm GI Common normals: Normal to inspection, nondistended, normoactive bowel sounds present, soft to palpation and non-tender Common normals: no CVA tenderness Back & Pelvis Common normals: thoracic and lumbar spine normal to inspection and no thoracic nor lumbar tenderness Extremity Common normals: normal to inspection, full ROM, no clubbing, cyanosis or edema and no calf tenderness Neuro Common normals: CN's II-XII intact bilaterally, moves all extremities and no sensory deficits noted Psych Common normals: mental status grossly normal, thought process normal, cooperative, affect normal and speech normal Discharge Plan Discharge Disposition: Home, Self-Care Condition: Good Assessment: clinical exam nonfocal, performing ADL's, eating and eliminating normally, vss, incision dry and intact, voicing no concerns Health Concerns: none Plan of Treatment: discharge home with written and verbal instructions a/p CS Discharge Medications: Continued citalopram 40 mg tablet 40 mg PO DAILY Patient Comments: Pt own medication. hydroxyzine HCl 25 mg tablet 25 mg PO DAILY PRN (Reason: nausea and vomiting) [id number] 1 mg tablet 1 tab PO DAILY pantoprazole 40 mg tablet,delayed release (DR/EC) 40 mg PO DAILY Pro Fe 180 mg iron capsule 180 mg PO DAILY Discontinued aspirin 81 mg tablet,delayed release (DR/EC) 81 mg PO DAILY Activity: resume usual activities as tolerated Activity Detail: walking only exercise for six weeks, no driving for 4 weeks, only lift twins, may shower, no bathtub six weeks, drink 8 ten ounce glasses of water a day, no sex for six weeks Diet: regular diet Patient Instructions: (DC) Activity Restrictions/Additional Instructions: general RSV and COVID precautions given Forms: Portal Instructions Follow Up Appointments: incision check one week, post exam six weeks Discharge location: home
[2023-07-26] MEDS: OXYCODONE HCL/ACETAMINOPHEN 5MG/325MG 2 TAB PO (14:38)
[2023-07-26] MEDS: ADACEL DIPH,PERTUSS(ACELL),TET VAC/PF 0.5 ML ADULT SYRINGE IM (16:19)
== END 2023-07-26 17:02 | disposition home or self-care (01) | DRG 540 ==
PROVIDERS: Admitting Provider Obstetrics & Gynecology; PCP Family Medicine; Visit Provider Obstetrics & Gynecology
PROC: 10D00Z1 Extraction of Products of Conception, Low, Open Approach (ICD-10-PCS; CPT 59514; principal; 2023-07-22 18:30)
DX: O32.1XX1 Maternal care for breech presentation, fetus 1 (principal); O16.4 Unspecified maternal hypertension, complicating childbirth; O30.043 Twin pregnancy, dichorionic/diamniotic, third trimester; O60.14X0 Preterm labor third trimester with preterm delivery third trimester, not applicable or unspecified; O36.5930 Maternal care for other known or suspected poor fetal growth, third trimester, not applicable or unspecified; O99.013 Anemia complicating pregnancy, third trimester; D50.9 Iron deficiency anemia, unspecified; Z3A.36 36 weeks gestation of pregnancy; Z37.2 Twins, both liveborn; O99.344 Other mental disorders complicating childbirth; F41.9 Anxiety disorder, unspecified; F31.9 Bipolar disorder, unspecified
CPT/HCPCS: 36415; 51702; 59025; 64488; 76810; 76818; 80307; 81001; 85025; 86850; 86900; 86901; 87086; 88307; 90471; 90715; 96372; 96374; 96375; 96376; J0131; J0665; J0690; J1100; J1170; J1650; J1885; J2405; J2590; J2765

== ENCOUNTER 2023-08-01 22:56 | Emergency (ER) | payer OTHER, SELFPAY ==
[2023-08-01 23:00] VITALS: BP 124/83; PULSE 85; RESP 18; TEMP 36.7; O2SAT 100; BMI 27.4
[2023-08-01 23:06] VITALS: BP 124/83
--- OUTSIDE RECORDS SUMMARY | 2023-08-01 23:11 | XMS_ITS | CCD ---
Author Name Unknown Address [address] [place] [address] Organization [facility] Care Team Providers Care Batteryman Name Role Phone NO FAMILY, PHYSICIAN Primary Care Provider Nela Givens Primary Care Provider [phone] SUKI CONDE Primary Care Physician [phone] AMAYA PROVIDER, SUKI Referring Unavailab le NILL, [...] Unavailable LILIAN ., DR GATICA Admitting Unavailable [place], DR ANGIE Arce Consulting Unavailable NADERER, DR [...] SUKI Kong Primary Care Unavailable DEE ., NESOTR Consulting Unavailable DEE ., NESTOR Admitting Unavailable [...] Unavailable AMAYA, DR SUKI Kong Attending Unavailable [place], DR ANGIE Arce Consulting Unavailable REQUEST, DR [...] Propensity to adverse reactions (disorder) [facility] Repository Medications Current Medications Medication Drug [...] Status: Ordered take 2 tablets by [facility] once daily at bedtime Elavil [...] 2 Episodic Other aftercare (1 source) Other senior care (current) drug therapy; Translations: [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 07-22-2023 L Specimen: [id number] Received: 07/23/23 Status: SALVADOR Ortiz Num: [id number] Spec Type: Surgical Subm Dr: Cecil Johnson Tissues: A Placenta - 3rd Trimester (Greater than 28 weeks) (PLACENTA A) B Placenta - 3rd Trimester (Greater than 28 weeks) (PLACENTA B) Procedures: HE/7, Gross/Micro L5/2 Age/ Patient Sex Location Account Attending Physician Shanon Louise 23/ LABELL [id number] Cecil Johnson SPEC NUM: [id number] RECD: 07/23/23 STATUS: SALVADOR ORTIZ NUM: [id number] MORAIMA: 07/22/[address]: Cecil Johnson ENTERED: 07/23/23 [facility] DR: Tristan,Lab SPEC TYPE: Surgical DEPT: [...] [id number] Received: 07/23/23 Status: SALVADOR Ortiz Num: [id number] Spec Type: Surgical Subm Dr: Cecil Johnson Tissues: A Placenta - 3rd Trimester (Greater than 28 weeks) (PLACENTA A) B Placenta - 3rd Trimester (Greater than 28 weeks) (PLACENTA B) Procedures: HE/7, Gross/Micro L5/2 Patient: Shanon Louise [id number] (Continued) Specimen: [id number] Received: 07/23/23 (Continued) Gross Description (Continued) Signed (signatur e on file) Juan Shea MD 07/25/23 1826 Specimen: [id number] Received: 07/23/23 Status: SAVLADOR Ortiz Num: [id number] Spec Type: Surgical Subm Dr: Cecil Johnson Tissues: A Placenta - 3rd Trimester (Greater than 28 weeks) (PLACENTA A) B Placenta - 3rd Trimester (Greater than 28 weeks) (PLACENTA B) Procedures: RADHAIra Franklin/Hieu L5/2 Patient: Shanon Louise [id number] (Continued) Specimen: [id number] Received: 07/23/23-1230 (Continued) Gross Description (Continued) and is eccentrically inserted 2 cm from the edge of the placental disc. The maternal surface is multifocally disrupted and is questionably complete. Sectioning demonstrates soft red-brown unremarkable parenchyma averaging 2.5 cm in thickness. [employer] sections are submitted in 3 cassettes as [...] unremarkable parenchyma 2.5 cm in average thickness. [employer] sections are submitted in 4 cassettes as follows: B1 - Umbilical cord with cyst B2 - membranes and decidua basalis B3 - Central placenta, ful (more content not included)... Normal [facility] Blood Pressure Cuff Sizeon 0 03-28-2023 Fall risk assessment a) No falls within the last year [id number] [address] [place] Work Phone: Tobacco use status CPHS a) Yes M [id number] [address] [place] Work Phone: Blood Pressure Cuff Size Adult [id number] [address] [place] Work Phone: Blood Pressure Cuff Size Yes [id number] [address] [place] Work Phone: No Panel Informationon 03-28 Normal [id number] [address] [place] Work Phone: OB Completed scan [...] gestation - rr cfDNA - Referred from [place] because of subchorionic hematomas A targeted anatomic [...] previously been seen by Dr. Gonzales in [place]. Twins are doing well, their growth is [...] EFW (oz) 12 oz EFW by: Hadlock ([id number]) Extended Pharm Tech 5.8 mm CM 3.9 mm 16% Nicolaides [...] mm 61 (more content not included)... Normal [facility] AMYLASEon 10-28-2022 Amylase [Catalytic activity/Vol] 35 U/L Normal 25-115 [facility] Comment on above: Performed By: #### C NEAL LIPA, NESTOR #### [facility] [address] [place] [address] Dr. Joe Shea CBC AUTO DIFFon 10-28-2022 BASO # 0.1 103/ul Normal 0.0-0.1 [facility] Comment on above: Performed By: #### C MP LIPA, NESTOR #### [facility] [address] [place] [address] Dr. Joe Shea Basophils/100 WBC (Bld) 0.4 % Normal 0.2-2.[address] [facility] Comment on above: Performed By: #### C MP LIPA, NESTOR #### [facility] [address] [place] [address] Dr. Joe Shea EO # 0.1 103/ul Normal 0.0-0.7 [facility] Comment on above: Performed By: #### C MP LIPA, NESTOR #### [facility] [address] [place] [address] Dr. Joe Shea Eosinophils/100 WBC (Bld) 0.8 % Critically low 0.9-7. 0 [facility] Comment on above: Performed By: #### C MP LIPA, NESTOR #### [facility] [address] [place] [address] Dr. Joe Shea Erythrocyte distribution width (RBC) [Ratio] 13.2 % Normal 11.0-15.0 [facility] Comment on above: Performed By: #### C MP, LIPA, NESTOR #### [facility] [address] [place] [address] Dr. Joe Shea Hematocrit (Bld) [Volume fraction] 37.2 % Normal 36.0-48.0 [facility] Comment on above: Performed By: #### C MP, LIPA, NESTOR #### [facility] [address] [place] [address] Dr. Joe Shea Hemoglobin (Bld) [Mass/Vol] 12.0 g/dL Normal 12.0-16.0 [facility] Comment on above: Performed By: #### C MP LIPA, NESTOR #### [facility] [address] [place] [address] Dr. Joe Shea IG # 0.03 10e3/ul Normal 0.00-0.03 [facility] Comment on above: Performed By: #### C MP LIPA, NESTOR #### [facility] [address] [place] [address] Dr. Joe Shea IG % 0.2 % Normal 0.0-0.5 [facility] Comment on above: Performed By: #### C NEAL LIPA, NESTOR #### [facility] [address] [place] [address] Dr. Joe Shea LYMPH # 1.9 103/ul Normal 1.2-3.8 [facility] Comment on above: Performed By: #### C NEAL LIPA, NESTOR #### [facility] [address] [place] [address] Dr. Joe Shea Lymphocytes/100 WBC (Bld) 15.2 % Critically low 20.5-6 0.0 [facility] Comment on above: Performed By: #### C NEAL LIPA, NESTOR #### [facility] [address] [place] [address] Dr. Joe Shea MANUAL DIFF REQ NO Normal [facility] Comment on above: Performed By: #### C NEAL LIPA, NESTOR #### [facility] [address] [place] [address] Dr. Joe Shea MCH (RBC) [Entitic mass] 28.4 pg Normal 26.7-34.0 [facility] Comment on above: Performed By: #### C MP LIPA, NESTOR #### [facility] [address] [place] [address] Dr. Joe Shea MCHC (RBC) [Mass/Vol] 32.3 g/dL Normal 29.9-35.2 [facility] Comment on above: Performed By: #### C MP LIPA, NESTOR #### [facility] [address] [place] [address] Dr. Joe Shea MCV (RBC) [Entitic vol] 87.9 fL Normal 81.0-99.[address] [facility] Comment on above: Performed By: #### C MP LIPA, NESTOR #### [facility] [address] [place] [address] Dr. Joe Shea MONO # 0.9 103/ul Critically high 0.3-0.8 [facility] Comment on above: Performed By: #### C MP, LIPA, NESTOR #### [facility] [address] [place] [address] Dr. Joe Seha Monocytes/100 WBC (Bld) 7.1 % Normal 1.7-12.[address] [facility] Comment on above: Performed By: #### C MP, LIPA, NESTOR #### [facility] [address] [place] [address] Dr. Joe Shea NEUT # 9.5 103/ul Critically high 1.4-6.5 [facility] Comment on above: Performed By: #### C MP, LIPA, NESTOR #### [facility] [address] [place] [address] Dr. Joe Shea Neutrophils/100 WBC (Bld) 76.3 % Critically high 43.0- 75.0 [facility] Comment on above: Performed By: #### C MP, LIPA, NESTOR #### [facility] [address] [place] [address] Dr. Joe Shea Platelet mean volume (Bld) [Entitic vol] 10.8 fL Normal 9.5-13.5 [facility] Comment on above: Performed By: #### C MP, LIPA, NESTOR #### [facility] [address] [place] [address] Dr. Joe Shea PLT 283 103/ul Normal 150-450 [facility] Comment on above: Performed By: #### C MP, LIPA, NESTOR #### [facility] [address] [place] [address] Dr. Joe Shea RBC 4.23 106/ul Normal 4.20-5.40 [facility] Comment on above: Performed By: #### C MP LIPA, NESTOR #### [facility] [address] [place], [place] [address] Dr. Joe Shea WBC 12.5 103/ul Critically high 4.0-11.0 [facility] Comment on above: Performed By: #### C NEAL LIPA, NESTOR #### [facility] [address] [place], [place] [address] ABD/PELV W CONon [...] MISTI BREWER Date: 2022-10-28 18:31 Normal [facility] ER URINE PROFILEon 3 Bilirubin Ql (U) Negative Normal NEGATIVE [facility] Comment on above: Performed By: #### L BCLH #### [facility] [address] [place] [address] Dr. Joe Shea Clarity (U) CLEAR Normal CLEAR [facility] Comment on above: Performed By: #### L BCLH #### [facility] [address] [place] [address] Dr. Joe Shea Color (U) LT. YELLOW Normal YELLOW [facility] Comment on above: Performed By: #### L BCLH #### [facility] [address] [place] [address] Dr. Joe Shea ERUAHD A micrscopic examination will be performed if indicated. Normal [facility] Comment on above: Performed By: #### L BCLH #### [facility] [address] [place] [address] Dr. Joe Shea Glucose Ql (U) Negative Normal NEGATIVE [facility] Comment on above: Performed By: #### L BCLH #### [facility] [address] [place] [address] Dr. Joe Shea Hemoglobin Ql (U) Negative Normal NEGATIVE [facility] Comment on above: Performed By: #### L BCLH #### [facility] [address] [place] [address] Dr. Joe Shea Ketones Ql (U) Negative Normal NEGATIVE [facility] Comment on above: Performed By: #### L BCLH #### [facility] [address] [place] [address] Dr. Joe Shea LEUKOCYTES TRACE Abnormal NEGATIVE [facility] Comment on above: Performed By: #### L BCLH #### [facility] [address] [place] [address] Dr. Joe Shea Nitrite Ql (U) Negative Normal NEGATIVE [facility] Comment on above: Performed By: #### L BCLH #### [facility] [address] [place] [address] Dr. Joe Shea pH (U) 8.0 [pH] Normal 5-9 [facility] Comment on above: Performed By: #### L BCLH #### [facility] [address] [place] [address] Dr. Joe Shea SPEC GRAVITY 1.015 Normal 1.005-<=1.02 5 [facility] Comment on above: Performed By: #### L BCL #### [facility] [address] [place] [address] Dr. Joe Shea UA PROTEIN Negative Normal NEGATIVE/ TRACE [facility] Comment on above: Performed By: #### L BCL #### [facility] [address] [place] [address] Dr. Joe Shea UR MICRO IND INDICATED Normal [facility] Comment on above: Performed By: #### L BCL #### [facility] [address] [place] [address] Dr. Joe Shea Urobilinogen Qn (U) 2.0 {Pascual'U}/dL Abnormal 0.2 - 1. 0 [facility] Comment on above: Performed By: #### L [facility] #### [facility] [address] [place] [address] Dr. Joe Shea LIPASEon 10-28-2022 Lipase [Catalytic activity/Vol] 93.0 U/L Normal 73.0-393.0 [facility] Comment on above: Performed By: #### C CARLYN DE JESUS NESTOR #### [facility] [address] [place] [address] Dr. Joe Shea URon 10-28-2022 , QUAL Negative Normal NEGATIVE [facility] Comment on above: Performed By: #### L [facility] #### [facility] [address] [place] [address] Dr. Joe Shea PROF 14(COMP METB)on 023 Albumin [Mass/Vol] 4.1 g/dL Normal 3.4-5.0 [facility] Comment on above: Performed By: #### C CARLYN DE JESUS NESTOR #### [facility] [address] [place] [address] Dr. Joe Shea Albumin/Globulin [Mass ratio] 1.2 {ratio} Normal [facility] Comment on above: Performed By: #### C NEAL LIPLuann NESTOR #### [facility] [address] [place] [address] Dr. Joe Shea ALP [Catalytic activity/Vol] 60 U/L Normal 46-116 [facility] Comment on above: Performed By: #### C CARLYN DE JESUS, NESTOR #### [facility] [address] [place] [address] Dr. Joe Shea ALT [Catalytic activity/Vol] 22 U/L Normal 14-59 [facility] Comment on above: Performed By: #### C HUGO DE JESUSA, NESTOR #### [facility] [address] [place] [address] Dr. Joe Shea Anion gap [Moles/Vol] 10.2 mmol/L Normal [facility] Comment on above: Performed By: #### C CARLYN DE JESUS, NESTOR #### [facility] [address] [place] [address] Dr. Joe Shea AST [Catalytic activity/Vol] 14 U/L Critically low 15-37 [facility] Comment on above: Performed By: #### C CARLYN DE JESUS, NESTOR #### [facility] [address] [place] [address] Dr. Joe Shea Bilirubin [Mass/Vol] 0.5 mg/dL Normal 0.2-1.0 [facility] Comment on above: Performed By: #### C CARLYN DE JESUS, NSETOR #### [facility] [address] [place] [address] Dr. Joe Shea Calcium [Mass/Vol] 8.9 mg/dL Normal 8.5-10.1 [facility] Comment on above: Performed By: #### C HUGO DE JESUSA, NESTOR #### [facility] [address] [place] [address] Dr. Joe Shea Chloride [Moles/Vol] 103 mmol/L Normal 98-107 [facility] Comment on above: Performed By: #### C HUGO DE JESUSA, NESTOR #### [facility] [address] [place] [address] Dr. Joe Shea CO2 [Moles/Vol] 28.1 mmol/L Normal 21.0-32.0 [facility] Comment on above: Performed By: #### C CARLYN DE JESUS, NESTOR #### [facility] [address] [place] [address] [address] Joe Shea Creatinine [Mass/Vol] 0.77 mg/dL Normal 0.55-1.02 [facility] Comment on above: Performed By: #### C MP, LIPA, NESTOR #### [facility] [address] [place] [address] [address] Joe Shea EGFR-AF FILIPINO >60 Normal >=60 [facility] Comment on above: Performed By: #### C MP, LIPA, NESTOR #### [facility] [address] [place] [address] [address] Joe Shea EGFR-NON AF FILIPINO >60 Normal >=60 [facility] Comment on above: Performed By: #### C MP, LIPA, NESTOR #### [facility] [address] [place] [address] Dr. Joe Shea Globulin (S) [Mass/Vol] 3.5 g/dL Normal [facility] Comment on above: Performed By: #### C MP, LIPA, NESTOR #### [facility] [address] [place] [address] [address] Joe Shea Glucose [Mass/Vol] 85 mg/dL Normal 74-106 [facility] Comment on above: Performed By: #### C MP, LIPA, NESTOR #### [facility] [address] [place] [address] [address] Joe Shea Potassium [Moles/Vol] 3.3 mmol/L Critically low 3.5-5.1 [facility] Comment on above: Performed By: #### C MP, LIPA, NESTOR #### [facility] [address] [place] [address] [address] Joe Shea Protein [Mass/Vol] 7.6 g/dL Normal 6.4-8.2 [facility] Comment on above: Performed By: #### C MP, LIPA, NESTOR #### [facility] [address] [place] [address] [address] Joe Shea Sodium [Moles/Vol] 138 mmol/L Normal 136-145 [facility] Comment on above: Performed By: #### C CARLYN DE JESUS AMY #### [facility] [address] [place] [address] [address] Joe Shea Urea nitrogen [Mass/Vol] 6.0 mg/dL Critically low 7.0-18. 0 [facility] Comment on above: Performed By: #### C CARLYN DE JESUS AMY #### [facility] [address] [place] [address] Dr. Joe Shea Urea nitrogen/Creatinine [Mass ratio] 7.8 mg/mg Normal [facility] Comment on above: Performed By: #### C CARLYN DE JESUS AMY #### [facility] [address] [place] [address] Dr. Joe Shea URINE MICROSCOPIC ONLYon BACTERIA NONE SEEN Normal NONE SEEN [facility] Comment on above: Performed By: #### L BCL #### [facility] [address] [place] [address] Dr. Joe Shea Bacteria identified Cx Nom (U) NOT INDICATED Normal [facility] Comment on above: Performed By: #### L BCL #### [facility] [address] [place] [address] Dr. Joe Shea CAST NONE SEEN Normal NONE SEEN [facility] Comment on above: Performed By: #### L BCL #### [facility] [address] [place] [address] Dr. Joe Shea Crystals LM Nom (Urine sed) NONE SEEN Normal NONE SEEN [facility] Comment on above: Performed By: #### L BCL #### [facility] [address] [place] [address] Dr. Joe Shea Epithelial cells LM Ql (Urine sed) FEW Abnormal NONE SEEN /RARE [facility] Comment on above: Performed By: #### L BCLH #### [facility] [address] [place] [address] Dr. Joe Shea MUCOUS NONE SEEN Normal NONE SEEN [facility] Comment on above: Performed By: #### L BCLH #### [facility] [address] [place] [address] Dr. Joe Shea RBC NONE SEEN Abnormal 0-2 [facility] Comment on above: Performed By: #### L BCLH #### [facility] [address] [place] [address] [address] Joe Shea WBC 0-2 Abnormal NONE SEEN [facility] Comment on above: Performed By: #### L BCLH #### [facility] [address] [place] [address] [address] Joe Shea LACTOFERRIN FECAL QUANTon Lactoferrin, Fecal, Quant. <1.00 Normal 0.00-7.24 [facility] Comment on above: Result Comment: [...] (IBS). Performed By: #### D TRESA #### [facility] [address] [place] [address] Dr. Joe Shea CALPROTECTIN, FECALon 2022 Calprotectin, Fecal 31 ug/g Normal 0-120 [facility] Comment on above: Result Comment: Conc entration Interpretation Follow-Up <16 - 50 ug/g Normal None >50 -120 ug/g Borderline Re-evaluate in 4-6 weeks >120 ug/g Abnormal Repeat as clinically indicated Performed By: #### C MP, LIPA, NESTOR #### [facility] [address] [place] [address] Dr. Joe Shea BOWEL DISORDERS EVALUATION R ULE-OUT CASCon 09-25-2022 Antigliadin 8 units Normal 0-19 [facility] Comment on above: Result Comment: Nega tive 0 - 19 Weak Positive 20 - 30 Moderate to Strong Positive >30 . Performed By: #### C BC #### [facility] [address] [place] [address] Dr. Joe Shea Atypical pANCA Negative Normal Negative [facility] Comment on above: Performed By: #### C BC #### [facility] [address] [place] [address] [address] Joe Shea Note: [place] continues Normal [facility] Comment on above: Performed By: #### C BC #### [facility] [address] [place] [address] Dr. Joe Shea Note: Comment Normal [facility] Comment on above: Result Comment: Sugg estive of irritable bowel syndrome (IBS). Careful evaluation of the patient's history, physical examination, and application of [place] III diagnostic criteria may help to rule in or rule out the diagnosis of IBS. Subsequent testing for Fecal Calprotectin (377263) may be recommended. If IBD is strongly suspected, subsequent testing with the Crohn's Disease Prognostic Profile (553069) that includes anti- glycan antibodies AMCA, ALCA, ACCA, and Zulema may aid in differential diagnosis. Performed By: #### C BC #### [facility] [address] [place] [address] Dr. Joe Shea Saccharomyces Cer. IgG <20.0 Normal 0.0-24.9 [facility] Comment on above: Result Comment: Nega tive <20.0 Equivocal 20.1 - 24.9 Positive >or= 25.0 Performed By: #### C BC #### [facility] [address] [place] [address] Dr. Joe Shea tTG/DGP SCR Negative Normal Negative [facility] Comment on above: Result Comment: Ef fective September 21, 2022 this profile will be made non-orderable due to non-availability of reagents for tTG/DGP Combo. No replacement number is available at this time. For further information, please contact your local [facility] [employer]. Performed By: #### C BC #### [facility] [address] [place] [address] Dr. Joe Seha CBC AUTO DIFFon 09-19-2022 BASO # 0.1 103/ul Normal 0.0-0.1 [facility] Comment on above: Performed By: #### D HEASUL #### [facility] [address] [place] [address] Dr. Joe Shea Basophils/100 WBC (Bld) 0.9 % Normal 0.2-2.[address] [facility] Comment on above: Performed By: #### Althea GTZ #### [facility] [address] [place] [address] Dr. Joe Shea EO # 0.2 103/ul Normal 0.0-0.7 [facility] Comment on above: Performed By: #### Althea GTZ #### [facility] [address] [place] [address] Dr. Joe Shea Eosinophils/100 WBC (Bld) 2.4 % Normal 0.9-7.0 [facility] Comment on above: Performed By: #### Althea GTZ #### [facility] [address] [place] [address] Dr. Joe Shea Erythrocyte distribution width (RBC) [Ratio] 13.2 % Normal 11.0-15.0 [facility] Comment on above: Performed By: #### Althea GTZ #### [facility] [address] [place] [address] Dr. Joe Shea Hematocrit (Bld) [Volume fraction] 38.3 % Normal 36.0-48.0 [facility] Comment on above: Performed By: #### Althea GTZ #### [facility] [address] [place] [address] Dr. Joe Shea Hemoglobin (Bld) [Mass/Vol] 12.3 g/dL Normal 12.0-16.0 [facility] Comment on above: Performed By: #### Althea GTZ #### [facility] [address] [place] [address] Dr. Joe Shea IG # 0.02 10e3/ul Normal 0.00-0.03 [facility] Comment on above: Performed By: #### Althea GTZ #### [facility] [address] [place] [address] Dr. Joe Shea IG % 0.3 % Normal 0.0-0.5 [facility] Comment on above: Performed By: #### Althea GTZ #### [facility] [address] [place] [address] [address] Joe Shea LYMPH # 1.7 103/ul Normal 1.2-3.8 [facility] Comment on above: Performed By: #### Althea GTZ #### [facility] [address] [place] [address] [address] Joe Shea Lymphocytes/100 WBC (Bld) 24.6 % Normal 20.5-60.0 [facility] Comment on above: Performed By: #### Althea GTZ #### [facility] [address] [place] [address] [address] Joe Shea MANUAL DIFF REQ NO Normal [facility] Comment on above: Performed By: #### Althea GTZ #### [facility] [address] [address] [address] Joe Shea MCH (RBC) [Entitic mass] 28.1 pg Normal 26.7-34.0 [facility] Comment on above: Performed By: #### Althea GTZ #### [facility] [address] [address] [address] Joe Shea MCHC (RBC) [Mass/Vol] 32.1 g/dL Normal 29.9-35.2 [facility] Comment on above: Performed By: #### Althea GTZ #### [facility] [address] [address] [address] Joe Shea MCV (RBC) [Entitic vol] 87.6 fL Normal 81.0-99.[address] [facility] Comment on above: Performed By: #### Althea GTZ #### [facility] [address] [address] [address] Joe Shea MONO # 0.4 103/ul Normal 0.3-0.8 [facility] Comment on above: Performed By: #### Althea GTZ #### [facility] [address] [address] [address] Joe Shea Monocytes/100 WBC (Bld) 5.5 % Normal 1.7-12.[address] [facility] Comment on above: Performed By: #### Althea GTZ #### [facility] [address] [address] [address] Joe Shea NEUT # 4.7 103/ul Normal 1.4-6.5 [facility] Comment on above: Performed By: #### Althea GTZ #### [facility] [address] [address] [address] Joe Shea Neutrophils/100 WBC (Bld) 66.3 % Normal 43.0-75.0 [facility] Comment on above: Performed By: #### Althea GTZ #### [facility] [address] [address] [address] Joe Shea Platelet mean volume (Bld) [Entitic vol] 11.4 fL Normal 9.5-13.5 [facility] Comment on above: Performed By: #### Althea GTZ #### [facility] [address] [address] [address] Joe Shea PLT 275 103/ul Normal 150-450 [facility] Comment on above: Performed By: #### Althea GTZ #### [facility] [address] [address] [address] Joe Shea RBC 4.37 106/ul Normal 4.20-5.40 [facility] Comment on above: Performed By: #### Althea GTZ #### [facility] [address] [address] [address] Joe Shea WBC 7.0 103/ul Normal 4.0-11.0 [facility] Comment on above: Performed By: #### Althea GTZ #### [facility] [address] [address] [address] Joe Shea PROF 14(COMP METB)on 023 Albumin [Mass/Vol] 4.4 g/dL Normal 3.4-5.0 [facility] Comment on above: Performed By: #### L [facility] #### [facility] [address] [place] [address] Dr. Joe Shea Albumin/Globulin [Mass ratio] 1.4 {ratio} Normal [facility] Comment on above: Performed By: #### L BCLH #### [facility] [address] [address] [address] Joe Shea ALP [Catalytic activity/Vol] 51 U/L Normal 46-116 [facility] Comment on above: Performed By: #### L BCLH #### [facility] [address] [address] [address] Joe Shea ALT [Catalytic activity/Vol] 20 U/L Normal 14-59 [facility] Comment on above: Performed By: #### L BCLH #### [facility] [address] [address] [address] Joe Shea Anion gap [Moles/Vol] 11.7 mmol/L Normal Th [facility] Comment on above: Performed By: #### L BCLH #### [facility] [address] [address] [address] Joe Shea AST [Catalytic activity/Vol] 17 U/L Normal 15-37 [facility] Comment on above: Performed By: #### L BCLH #### [facility] [address] [address] [address] Joe Shea Bilirubin [Mass/Vol] 0.4 mg/dL Normal 0.2-1.0 [facility] Comment on above: Performed By: #### L BCLH #### [facility] [address] [address] [address] Joe Shea Calcium [Mass/Vol] 9.3 mg/dL Normal 8.5-10.1 [facility] Comment on above: Performed By: #### L BCLH #### [facility] [address] [address] [address] Joe Shea Chloride [Moles/Vol] 104 mmol/L Normal 98-107 [facility] Comment on above: Performed By: #### L BCLH #### [facility] [address] [address] [address] Joe Shea CO2 [Moles/Vol] 28.5 mmol/L Normal 21.0-32.0 [facility] Comment on above: Performed By: #### L BCLH #### [facility] [address] [address] [address] Joe Shea Creatinine [Mass/Vol] 0.55 mg/dL Normal 0.55-1.02 [facility] Comment on above: Performed By: #### L BCLH #### [facility] [address] [address] [address] Joe Shea EGFR-AF FILIPINO >60 Normal >=60 [facility] Comment on above: Performed By: #### L BCLH #### [facility] [address] [address] [address] Joe Shea EGFR-NON AF FILIPINO >60 Normal >=60 [facility] Comment on above: Performed By: #### L BCLH #### [facility] [address] [address] [address] Joe Shea Globulin (S) [Mass/Vol] 3.1 g/dL Normal T [facility] Comment on above: Performed By: #### L BCLH #### [facility] [address] [address] [address] Joe Shea Glucose [Mass/Vol] 90 mg/dL Normal 74-106 [facility] Comment on above: Performed By: #### L BCLH #### [facility] [address] [address] [address] Joe Shea Potassium [Moles/Vol] 4.2 mmol/L Normal 3.5-5.1 [facility] Comment on above: Performed By: #### L BCLH #### [facility] [address] [address] [address] Joe Shea Protein [Mass/Vol] 7.5 g/dL Normal 6.4-8.2 [facility] Comment on above: Performed By: #### L BCLH #### [facility] [address] [address] [address] Joe Shea Sodium [Moles/Vol] 140 mmol/L Normal 136-145 [facility] Comment on above: Performed By: #### L BCLH #### [facility] [address] [place] [address] Dr. Joe Shea Urea nitrogen [Mass/Vol] 6.0 mg/dL Critically low 7.0-18. 0 [facility] Comment on above: Performed By: #### L BARRYH #### [facility] [address] [place] [address] Dr. Joe Shea Urea nitrogen/Creatinine [Mass ratio] 10.9 mg/mg Normal [facility] Comment on above: Performed By: #### L BARRYH #### [facility] [address] [place] [address] Dr. Joe Shea PROTIMEon 09-19-2022 INR Coag (PPP) [Relative time] 1.08 {INR} Normal [facility] Comment on above: Performed By: #### L DAIN #### [facility] [address] [place] [address] Dr. Joe Shea INR GUIDELINES SEE BELOW Normal [facility] Comment on above: Result Comment: CHICA RED INR: 2.0 - 3.0 CONDITIONS NOT LISTED BELOW 2.5 - 3.5 FOR PROSTHETIC HEART VALVE REPLACEMENT 2.5 - 3.5 RECURRENT THROMBOSIS Performed By: #### L BARRY #### [facility] [address] [place] [address] Dr. Joe Shea PT Coag (PPP) [Time] 11.4 s Normal 9.0-11.6 [facility] Comment on above: Performed By: #### L BARRY #### [facility] [address] [place] [address] Dr. Joe Shea TSHon 09-19-2022 TSH 0.957 uIU/mL Normal 0.358-3.740 [facility] Comment on above: Performed By: #### L BARRY #### [facility] [address] [place] [address] Dr. Joe Shea Pre-Certification Formon Pre-Certification Form [id number]#1.00CD:127 Normal [facility] Consent for Procedure/Surger yon 07-23-2022 Consent for Procedure/Surgery [id number]#[id number]:127 Normal [facility] Facesheeton 07-19-2022 Facesheet [id number] 71#1.00CD:127 Normal [facility] CBC AUTO DIFFon 07-06-2022 BASO # 0.1 103/ul Normal 0.0-0.1 [facility] Comment on above: Performed By: #### C MP, LIPA, NESTOR #### [facility] [address] [place] [address] Dr. Joe Shea Basophils/100 WBC (Bld) 0.8 % Normal 0.2-2.[address] [facility] Comment on above: Performed By: #### C MP LIPA, NESTOR #### [facility] [address] [place] [address] Dr. Joe Shea EO # 0.4 103/ul Normal 0.0-0.7 [facility] Comment on above: Performed By: #### C MP LIPA, NESTOR #### [facility] [address] [place] [address] Dr. Joe Shea Eosinophils/100 WBC (Bld) 4.2 % Normal 0.9-7.0 [facility] Comment on above: Performed By: #### C MP LIPA, NESTOR #### [facility] [address] [place] [address] Dr. Joe Shea Erythrocyte distribution width (RBC) [Ratio] 13.5 % Normal 11.0-15.0 [facility] Comment on above: Performed By: #### C MP LIPA, NESTOR #### [facility] [address] [place] [address] Dr. Joe Seha Hematocrit (Bld) [Volume fraction] 36.8 % Normal 36.0-48.0 [facility] Comment on above: Performed By: #### C MP, LIPA, NESTOR #### [facility] [address] [place] [address] Dr. Joe Shea Hemoglobin (Bld) [Mass/Vol] 12.2 g/dL Normal 12.0-16.0 [facility] Comment on above: Performed By: #### C CARLYN DE JESUS, NESTOR #### [facility] [address] [place] [address] Dr. Joe Shea IG # 0.02 10e3/ul Normal 0.00-0.03 [facility] Comment on above: Performed By: #### C CARLYN DE JESUS, NESTOR #### [facility] [address] [place] [address] Dr. Joe Shea IG % 0.2 % Normal 0.0-0.5 [facility] Comment on above: Performed By: #### C CARLYN DE JESUS, NESTOR #### [facility] [address] [place] [address] Dr. Joe Shea LYMPH # 2.1 103/ul Normal 1.2-3.8 [facility] Comment on above: Performed By: #### C CARLYN DE JESUS, NESTOR #### [facility] [address] [place] [address] Dr. Joe Shea Lymphocytes/100 WBC (Bld) 20.3 % Critically low 20.5-6 0.0 [facility] Comment on above: Performed By: #### C CARLYN DE JESUS NESTOR #### [facility] [address] [place] [address] Dr. Joe Shea MANUAL DIFF REQ NO Normal [facility] Comment on above: Performed By: #### C CARLYN DE JESUS, NESTOR #### [facility] [address] [place] [address] Dr. Joe Shea MCH (RBC) [Entitic mass] 28.6 pg Normal 26.7-34.0 [facility] Comment on above: Performed By: #### C CARLYN DE JESUS, NESTOR #### [facility] [address] [place] [address] Dr. Joe Shea MCHC (RBC) [Mass/Vol] 33.2 g/dL Normal 29.9-35.2 [facility] Comment on above: Performed By: #### C CARLYN DE JESUS NESTOR #### [facility] [address] [place] [address] Dr. Joe Shea MCV (RBC) [Entitic vol] 86.4 fL Normal 81.0-99.[address] [facility] Comment on above: Performed By: #### C MP, LIPA, NESTOR #### [facility] [address] [place] [address] Dr. Joe Shea MONO # 0.6 103/ul Normal 0.3-0.8 [facility] Comment on above: Performed By: #### C MP, LIPA, NESTOR #### [facility] [address] [place] [address] Dr. Joe Shea Monocytes/100 WBC (Bld) 5.5 % Normal 1.7-12.[address] [facility] Comment on above: Performed By: #### C MP, LIPA, NESTOR #### [facility] [address] [place] [address] Dr. Joe Shea NEUT # 7.2 103/ul Critically high 1.4-6.5 [facility] Comment on above: Performed By: #### C MP, LIPA, NESTOR #### [facility] [address] [place] [address] Dr. Joe Shea Neutrophils/100 WBC (Bld) 69.0 % Normal 43.0-75.0 [facility] Comment on above: Performed By: #### C MP, LIPA, NESTOR #### [facility] [address] [place] [address] Dr. Joe Shea Platelet mean volume (Bld) [Entitic vol] 10.8 fL Normal 9.5-13.5 [facility] Comment on above: Performed By: #### C MP, LIPA, NESTOR #### [facility] [address] [place] [address] Dr. Joe Shea PLT 316 103/ul Normal 150-450 [facility] Comment on above: Performed By: #### C MP, LIPA, NESTOR #### [facility] [address] [place] [address] Dr. Joe Shea RBC 4.26 106/ul Normal 4.20-5.40 [facility] Comment on above: Performed By: #### C CARLYN DE JESUS AMY #### [facility] [address] [place] [address] Dr. Joe Shea WBC 10.4 103/ul Normal 4.0-11.0 [facility] Comment on above: Performed By: #### C CARLYN DE JESUS AMY #### [facility] [address] [place] [address] Dr. Joe Shea PREG QUANT HCGon 07-06-2022 HCG QUANT <1 Normal [facility] Comment on above: Performed By: #### C CARLYN DE JESUS AMY #### [facility] [address] [place] [address] Dr. Joe Shea HCG RANGE SEE BELOW Normal [facility] Comment on above: Result Comment: 5-50 0.2-1 WEEK 50-500 1-2 WEEKS 100-5,000 2-3 WEEKS 500-10,000 3-4 WEEKS 1,000-50,000 4-5 WEEKS 10,000-100,000 5-6 WEEKS 15,000-200,000 6-8 WEEKS 10,000-100,000 2-3 MONTHS Performed By: #### C CARLYN DE JESUS AMY #### [facility] [address] [place] [address] Dr. Joe Shea HEPATITIS C ANTIBODYon 06-26 Hep C Virus Ab <0.1 Normal 0.0-0.9 [facility] Comment [...] Hepatitis C Virus (HCV) RNA, Diagnosis, MEGAN (649214) and Hepatitis C Virus (HCV) Antibody with reflex to Quantitative Real-time PCR ([id number]). Performed By: #### L BCL #### [facility] [address] [place] [address] Dr. Joe Shea Covid-19 PCR (CVDTBH)on 05-31 SARS-CoV-2 (COVID-19) RNA MEGAN+probe Ql (Unsp spec) Not detected Normal NOT DETECTED [facility] Comment on above: Result Comment: This test is not yet approved or cleared by the [place] FDA. When there are no FDA-approved or cleared tests available, and other criteria are met, FDA can make tests available under an emergency access mechanism called an Emergency Use Authorization (EUA). The EUA for this test is supported by the [employer] of Health and Human Service's (HHS's) [...] SARS-CoV-2. Performed By: #### C VDTBH #### [facility] [address] [place] [address] Dr. Joe Shea HEP B SURFACE ANTIGEN SCREEN on 06-12-2022 HBsAg Screen Negative Normal Negative [facility] Comment on above: Performed By: #### D HEASMARICRUZ #### [facility] [address] [address] [address] Joe Shea HIV 1 AND 2 WITH REFLEXon HIV Screen 4th Generation wRfx Non-Reactive Normal Non Reactive [facility] Comment on above: Result Comment: HIV Negative HIV-1/HIV-2 antibodies and HIV-1 p24 antigen were NOT detected. There is no laboratory evidence of HIV infection. Performed By: #### C CARLYN DE JESUS AMY #### [facility] [address] [place] [address] Dr. Joe Shea RPR QUANTon 06-12-2022 Rapid Plasma Reagin, Quant Non-Reactive Normal NonRea< 1:1 [facility] Comment on above: Result Comment: Plea se Note: This test does not meet current guidelines for screening and diagnosis of syphilis. This test is intended for following treatment response in patients being treated for syphilis infection. To screen for syphilis infection, a reflex cascade that includes both RPR and a treponema-specific assay should be utilized, such as Treponema pallidum (Syphilis) Screening [place] (046261) or Rapid Plasma Reagin (RPR) Test With Reflex to Quantitative RPR and Confirmatory Treponema pallidum Antibodies ([id number]). Performed By: #### C CARLYN DE JESUS AMY #### [facility] [address] [place], [place] [address] Dr. Joe Shea Physician Referralon 022 Physician Referral [id number]#[id number]:127 Normal [facility] US PELVIS AND TRANSVAGon US PELVIS [...] ANGIE MEJIA Date: 2022-05-31 17:18 Normal [facility] AMYLASEon 05-23-2022 Amylase [Catalytic activity/Vol] 24 U/L Critically low 25-115 [facility] Comment on above: Performed By: #### C CARLYN DE JESUS AMY #### [facility] [address] [place] [address] [id number] [address] Joe Shea CBC AUTO DIFFon 05-23-2022 Eosinophils/100 WBC (Bld) 1.5 % Normal 0.9-7.0 [facility] Comment on above: Performed By: #### L BCL #### [facility] [address] [place] [address] Dr. Joe Shea Erythrocyte distribution width (RBC) [Ratio] 13.5 % Normal 11.0-15.0 [facility] Comment on above: Performed By: #### L BCLH #### [facility] [address] [place] [address] Dr. Joe Shea Hematocrit (Bld) [Volume fraction] 33.0 % Critically low 36.0-48.0 [facility] Comment on above: Performed By: #### L BCLH #### [facility] [address] [place] [address] Dr. Joe Shea Hemoglobin (Bld) [Mass/Vol] 10.7 g/dL Critically low 12.0-16.0 [facility] Comment on above: Performed By: #### L BCL #### [facility] [address] [place] [address] Dr. Joe Shea LYMPH # 1.2 103/ul Normal 1.2-3.8 [facility] Comment on above: Performed By: #### L BCL #### [facility] [address] [place] [address] Dr. Joe Shea Lymphocytes/100 WBC (Bld) 20.2 % Critically low 20.5-6 0.0 [facility] Comment on above: Performed By: #### L BCL #### [facility] [address] [place] [address] Dr. Joe Shea MCH (RBC) [Entitic mass] 28.0 pg Normal 26.7-34.0 [facility] Comment on above: Performed By: #### L BCLH #### [facility] [address] [place] [address] Dr. Joe Shea MCHC (RBC) [Mass/Vol] 32.4 g/dL Normal 29.9-35.2 [facility] Comment on above: Performed By: #### L BCL #### [facility] [address] [address] [address] Joe Shea Monocytes/100 WBC (Bld) 7.9 % Normal 1.7-12.[address] [facility] Comment on above: Performed By: #### L BCLH #### [facility] [address] [place] [address] Dr. Joe Shea Neutrophils/100 WBC (Bld) 69.9 % Normal 43.0-75.0 [facility] Comment on above: Performed By: #### L BCLH #### [facility] [address] [place] [address] Dr. Joe Shea Platelet mean volume (Bld) [Entitic vol] 10.6 fL Normal 9.5-13.5 [facility] Comment on above: Performed By: #### L BCL #### [facility] [address] [place] [address] Dr. Joe Shea PLT 233 103/ul Normal 150-450 [facility] Comment on above: Performed By: #### L BCL #### [facility] [address] [place] [address] Dr. Joe Shea RBC 3.82 106/ul Critically low 4.20-5.40 [facility] Comment on above: Performed By: #### L BCL #### [facility] [address] [place] [address] Dr. Joe Shea WBC 6.1 103/ul Normal 4.0-11.0 [facility] Comment on above: Performed By: #### L BCL #### [facility] [address] [place] [address] Dr. Joe Shea BASO # 0.0 103/ul Normal 0.0-0.1 [facility] Comment on above: Performed By: #### L BCL #### [facility] [address] [place] [address] Dr. Joe Shea Performed By: #### C MP, CARLYN, NESTOR #### [facility] [address] [place] [address] Dr. Joe Shea Basophils/100 WBC (Bld) 0.3 % Normal 0.2-2.[address] [facility] Comment on above: Performed By: #### L BCLH #### [facility] [address] [place] [address] Dr. Joe Shea Performed By: #### C MP, LIPA, NESTOR #### [facility] [address] [place] [address] Dr. Joe Shea EO # 0.1 103/ul Normal 0.0-0.7 [facility] Comment on above: Performed By: #### L BCLH #### [facility] [address] [place] [address] Dr. Joe Shea Performed By: #### C MP, LIPA, NESTOR #### [facility] [address] [place] [address] Dr. Joe Shea Eosinophils/100 WBC (Bld) 1.9 % Normal 0.9-7.0 [facility] Comment on above: Performed By: #### C MP, LIPA, NESTOR #### [facility] [address] [place] [address] Dr. Joe Shea Erythrocyte distribution width (RBC) [Ratio] 13.4 % Normal 11.0-15.0 [facility] Comment on above: Performed By: #### C MP, LIPA, NESTOR #### [facility] [address] [place] [address] Dr. Joe Shea Hematocrit (Bld) [Volume fraction] 32.3 % Critically low 36.0-48.0 [facility] Comment on above: Performed By: #### C MP, LIPA, NESTOR #### [facility] [address] [place] [address] Dr. Joe Shea Hemoglobin (Bld) [Mass/Vol] 10.6 g/dL Critically low 12.0-16.0 [facility] Comment on above: Performed By: #### C MP, LIPA, NESTOR #### [facility] [address] [place] [address] Dr. Joe Shea IG # 0.01 10e3/ul Normal 0.00-0.03 [facility] Comment on above: Performed By: #### L BCLH #### [facility] [address] [place] [address] Dr. Joe Shea Performed By: #### C MP, LIPA, NESTOR #### [facility] [address] [place] [address] Dr. Joe Shea IG % 0.2 % Normal 0.0-0.5 [facility] Comment on above: Performed By: #### L BCLH #### [facility] [address] [place] [address] Dr. Joe Shea Performed By: #### C MP LIPA, NESTOR #### [facility] [address] [place] [address] Dr. Joe Shea LYMPH # 1.0 103/ul Critically low 1.2-3.8 [facility] Comment on above: Performed By: #### C MP, LIPA, NESTOR #### [facility] [address] [place] [address] Dr. Joe Shea Lymphocytes/100 WBC (Bld) 16.6 % Critically low 20.5-6 0.0 [facility] Comment on above: Performed By: #### C MP, LIPA, NESTOR #### [facility] [address] [place] [address] Dr. Joe Shea MANUAL DIFF REQ NO Normal [facility] Comment on above: Performed By: #### L BCL #### [facility] [address] [place] [address] Dr. Joe Shea Performed By: #### C MP, LIPA, NESTOR #### [facility] [address] [place] [address] Dr. Joe Shea MCH (RBC) [Entitic mass] 28.3 pg Normal 26.7-34.0 [facility] Comment on above: Performed By: #### C MP, LIPA, NESTOR #### [facility] [address] [place] [address] Dr. Joe Shea MCHC (RBC) [Mass/Vol] 32.8 g/dL Normal 29.9-35.2 [facility] Comment on above: Performed By: #### C MP, LIPA, NESTOR #### [facility] [address] [place] [address] Dr. Joe Shea MCV (RBC) [Entitic vol] 86.4 fL Normal 81.0-99.[address] [facility] Comment on above: Performed By: #### L BCL #### [facility] [address] [place] [address] Dr. Joe Shea Performed By: #### C MP, LIPA, NESTOR #### [facility] [address] [place] [address] Dr. Joe Shea MONO # 0.5 103/ul Normal 0.3-0.8 [facility] Comment on above: Performed By: #### L BCL #### [facility] [address] [place] [address] Dr. Joe Shea Performed By: #### C MP, LIPA, NESTOR #### [facility] [address] [place] [address] Dr. Joe Shea Monocytes/100 WBC (Bld) 9.1 % Normal 1.7-12.[address] [facility] Comment on above: Performed By: #### C MP, LIPA, NESOTR #### [facility] [address] [place] [address] Dr. Joe Shea NEUT # 4.3 103/ul Normal 1.4-6.5 [facility] Comment on above: Performed By: #### L BCLH #### [facility] [address] [place] [address] Dr. Joe Shea Performed By: #### C MP, LIPA, NESTOR #### [facility] [address] [place] [address] Dr. Joe Shea Neutrophils/100 WBC (Bld) 71.9 % Normal 43.0-75.0 [facility] Comment on above: Performed By: #### C MP, LIPA, NESTOR #### [facility] [address] [place] [address] Dr. Joe Shea Platelet mean volume (Bld) [Entitic vol] 11.0 fL Normal 9.5-13.5 [facility] Comment on above: Performed By: #### C CARLYN DE JESUS AMY #### [facility] [address] [place] [address] Dr. Joe Shea PLT 224 103/ul Normal 150-450 [facility] Comment on above: Performed By: #### C CARLYN DE EJSUS AMY #### [facility] [address] [place] [address] Dr. Joe Shea RBC 3.74 106/ul Critically low 4.20-5.40 [facility] Comment on above: Performed By: #### C CARLYN DE JESUS AMY #### [facility] [address] [place] [address] Dr. Joe Shea WBC 5.9 103/ul Normal 4.0-11.0 [facility] Comment on above: Performed By: #### C CARLYN DE JESUS AMY #### [facility] [address] [place] [address] Dr. Joe Shea ER URINE PROFILEon 2 Bilirubin Ql (U) Negative Normal NEGATIVE [facility] Comment on above: Performed By: #### L BCL #### [facility] [address] [place] [address] Dr. Joe Shea Clarity (U) CLEAR Normal CLEAR [facility] Comment on above: Performed By: #### L BARRY #### [facility] [address] [place] [address] Dr. Joe Shea Color (U) LT. YELLOW Normal YELLOW [facility] Comment on above: Performed By: #### L BCL #### [facility] [address] [place] [address] Dr. Joe YUNG A micrscopic examination will be performed if indicated. Normal [facility] Comment on above: Performed By: #### L BCL #### [facility] [address] [place] [address] Dr. Joe Shea Glucose Ql (U) Negative Normal NEGATIVE [facility] Comment on above: Performed By: #### L BCLH #### [facility] [address] [place] [address] Dr. Joe Shea Hemoglobin Ql (U) Negative Normal NEGATIVE [facility] Comment on above: Performed By: #### L BCLH #### [facility] [address] [place] [address] Dr. Joe Shea Ketones Ql (U) Negative Normal NEGATIVE [facility] Comment on above: Performed By: #### L BCLH #### [facility] [address] [place] [address] Dr. Joe Shea LEUKOCYTES Negative Normal NEGATIVE [facility] Comment on above: Performed By: #### L BCLH #### [facility] [address] [place] [address] Dr. Joe Shea Nitrite Ql (U) Negative Normal NEGATIVE [facility] Comment on above: Performed By: #### L BCLH #### [facility] [address] [place] [address] Dr. Joe Shea pH (U) 5.5 [pH] Normal 5-9 [facility] Comment on above: Performed By: #### L BCL #### [facility] [address] [place] [address] Dr. Joe Shea SPEC GRAVITY 1.020 Normal 1.005-<=1.02 5 [facility] Comment on above: Performed By: #### L BCL #### [facility] [address] [place] [address] Dr. Joe Shea UA PROTEIN Negative Normal NEGATIVE/ TRACE [facility] Comment on above: Performed By: #### L BCL #### [facility] [address] [place] [address] Dr. Joe Shea UR MICRO IND NOT INDICATED Normal [facility] Comment on above: Performed By: #### L BCLH #### [facility] [address] [place] [address] Dr. Joe Shea Urobilinogen Qn (U) 0.2 {Pascual'U}/dL Normal 0.2 - 1. 0 [facility] Comment on above: Performed By: #### L BCLH #### [facility] [address] [place] [address] Dr. Joe Shea LIPASEon 05-23-2022 Lipase [Catalytic activity/Vol] 63.0 U/L Critically low 73.0-393.0 [facility] Comment on above: Performed By: #### C MP, LIPA, NESTOR #### [facility] [address] [place] [address] Dr. Joe Shea URon 05-23-2022 , QUAL Negative Normal NEGATIVE [facility] Comment on above: Performed By: #### C BC #### [facility] [address] [place] [address] Dr. Joe Shea PROF 14(COMP METB)on 022 Albumin [Mass/Vol] 3.7 g/dL Normal 3.4-5.0 [facility] Comment on above: Performed By: #### C MP, LIPA, NESTOR #### [facility] [address] [place] [address] Dr. Joe Shea Albumin/Globulin [Mass ratio] 1.4 {ratio} Normal [facility] Comment on above: Performed By: #### C MP, LIPA, NESTOR #### [facility] [address] [place] [address] Dr. Joe Shea ALP [Catalytic activity/Vol] 44 U/L Critically low 46-116 [facility] Comment on above: Performed By: #### C MP, LIPA, NESTOR #### [facility] [address] [place] [address] Dr. Joe Shea ALT [Catalytic activity/Vol] 24 U/L Normal 14-59 [facility] Comment on above: Performed By: #### C MP, LIPA, NESTOR #### [facility] [address] [place] [address] Dr. Joe Shea Anion gap [Moles/Vol] 9.1 mmol/L Normal [facility] Comment on above: Performed By: #### C MP, LIPA, NESTOR #### [facility] [address] [place] [address] Dr. Joe Shea AST [Catalytic activity/Vol] 18 U/L Normal 15-37 [facility] Comment on above: Performed By: #### C CARLYN DE JESUS, NESTOR #### [facility] [address] [address] [address] Joe Shea Bilirubin [Mass/Vol] 0.2 mg/dL Normal 0.2-1.0 [facility] Comment on above: Performed By: #### C HUGO DE JESUSA, NESTOR #### [facility] [address] [address] [address] Joe Shea Calcium [Mass/Vol] 8.3 mg/dL Critically low 8.5-10.1 [facility] Comment on above: Performed By: #### C CARLYN DE JESUS, NESTOR #### [facility] [address] [place] [address] Dr. Joe Shea Chloride [Moles/Vol] 105 mmol/L Normal 98-107 [facility] Comment on above: Performed By: #### C NEAL LIPA, NESTOR #### [facility] [address] [place] [address] Dr. Joe Shea CO2 [Moles/Vol] 29.7 mmol/L Normal 21.0-32.0 [facility] Comment on above: Performed By: #### C HUGO DE JESUSA, NESTOR #### [facility] [address] [place] [address] Dr. Joe Shea Creatinine [Mass/Vol] 0.61 mg/dL Normal 0.55-1.02 [facility] Comment on above: Performed By: #### C NEAL LIPA, NESTOR #### [facility] [address] [place] [address] Dr. Joe Shea EGFR-AF FILIPINO >60 Normal >=60 [facility] Comment on above: Performed By: #### C NEAL LIPA, NESTOR #### [facility] [address] [place] [address] Dr. Joe Shea EGFR-NON AF FILIPINO >60 Normal >=60 [facility] Comment on above: Performed By: #### C NEAL LIPA, NESTOR #### [facility] [address] [address] [address] Joe Shea Globulin (S) [Mass/Vol] 2.6 g/dL Normal T [facility] Comment on above: Performed By: #### C MP, LIPA, NESTOR #### [facility] [address] [address] [address] Joe Shea Glucose [Mass/Vol] 92 mg/dL Normal 74-106 [facility] Comment on above: Performed By: #### C MP LIPA, NESTOR #### [facility] [address] [address] [address] Joe Shea Potassium [Moles/Vol] 3.8 mmol/L Normal 3.5-5.1 [facility] Comment on above: Performed By: #### C MP LIPA, NESTOR #### [facility] [address] [place] [address] Dr. Joe Shea Protein [Mass/Vol] 6.3 g/dL Critically low 6.4-8.2 [facility] Comment on above: Performed By: #### C MP LIPA, NESTOR #### [facility] [address] [address] [address] Joe Shea Sodium [Moles/Vol] 140 mmol/L Normal 136-145 [facility] Comment on above: Performed By: #### C MP, LIPA, NESTOR #### [facility] [address] [address] [address] Joe Shea Urea nitrogen [Mass/Vol] 9.0 mg/dL Normal 7.0-18.0 [facility] Comment on above: Performed By: #### C MP LIPA, NESTOR #### [facility] [address] [address] [address] Joe Shea Urea nitrogen/Creatinine [Mass ratio] 14.8 mg/mg Normal [facility] Comment on above: Performed By: #### C MP, LIPA, NESTOR #### [facility] [address] [address] [address] Joe Shea US SINGLE QUAD RT [...] by: SHIRLEY PATEL Date: 2022-05-23 08:29 Normal [facility] AMYLASEon 05-22-2022 Amylase [Catalytic activity/Vol] 50 U/L Normal 25-115 [facility] Comment on above: Performed By: #### A MY, CMP, LIPA #### [facility] [address] [address] [address] Joe Shea CBC AUTO DIFFon 05-22-2022 BASO # 0.1 103/ul Normal 0.0-0.1 [facility] Comment on above: Performed By: #### C MP, LIPA, NESTOR #### [facility] [address] [address] [address] Joe Shea Basophils/100 WBC (Bld) 0.3 % Normal 0.2-2.[address] [facility] Comment on above: Performed By: #### C MP, LIPA, NESTOR #### [facility] [address] [address] [address] Joe Shea EO # 0.0 103/ul Normal 0.0-0.7 [facility] Comment on above: Performed By: #### C MP, LIPA, NESTOR #### [facility] [address] [address] [address] Joe Shea Eosinophils/100 WBC (Bld) 0.2 % Critically low 0.9-7. 0 [facility] Comment on above: Performed By: #### C CARLYN DE JESUS AMY #### [facility] [address] [place] [address] Dr. Joe Shea Erythrocyte distribution width (RBC) [Ratio] 13.3 % Normal 11.0-15.0 [facility] Comment on above: Performed By: #### C CARLYN DE JESUS AMY #### [facility] [address] [place] [address] Dr. Joe Shea Hematocrit (Bld) [Volume fraction] 39.0 % Normal 36.0-48.0 [facility] Comment on above: Performed By: #### C CARLYN DE JESUS AMY #### [facility] [address] [place] [address] Dr. Joe Shea Hemoglobin (Bld) [Mass/Vol] 12.7 g/dL Normal 12.0-16.0 [facility] Comment on above: Performed By: #### C CARLYN DE JESUS AMY #### [facility] [address] [place] [address] Dr. Joe Shea IG # 0.05 10e3/ul Critically high 0.00-0.03 [facility] Comment on above: Performed By: #### C CARLYN DE JESUS NESTOR #### [facility] [address] [place] [address] Dr. Joe Shea IG % 0.3 % Normal 0.0-0.5 [facility] Comment on above: Performed By: #### C CARLYN DE JESUS, NESTOR #### [facility] [address] [place] [address] Dr. Joe Shea LYMPH # 0.8 103/ul Critically low 1.2-3.8 [facility] Comment on above: Performed By: #### C CARLYN DE JESUS, NESTOR #### [facility] [address] [place] [address] Dr. Joe Shea Lymphocytes/100 WBC (Bld) 4.4 % Critically low 20.5-6 0.0 [facility] Comment on above: Performed By: #### C CARLYN DE JESUS, NESTOR #### [facility] [address] [address] [address] Joe Shea MANUAL DIFF REQ NO Normal [facility] Comment on above: Performed By: #### C MP, LIPA, NESTOR #### [facility] [address] [place] [address] Dr. Joe Shea MCH (RBC) [Entitic mass] 28.1 pg Normal 26.7-34.0 [facility] Comment on above: Performed By: #### C MP, LIPA, NESTOR #### [facility] [address] [place] [address] Dr. Joe Shea MCHC (RBC) [Mass/Vol] 32.6 g/dL Normal 29.9-35.2 [facility] Comment on above: Performed By: #### C MP, LIPA, NESTOR #### [facility] [address] [place] [address] Dr. Joe Shea MCV (RBC) [Entitic vol] 86.3 fL Normal 81.0-99.[address] [facility] Comment on above: Performed By: #### C MP, LIPA, NESTOR #### [facility] [address] [place] [address] Dr. Joe Shea MONO # 0.4 103/ul Normal 0.3-0.8 [facility] Comment on above: Performed By: #### C MP, LIPA, NESTOR #### [facility] [address] [place] [address] Dr. Joe Shea Monocytes/100 WBC (Bld) 2.2 % Normal 1.7-12.[address] [facility] Comment on above: Performed By: #### C MP, LIPA, NESTOR #### [facility] [address] [place] [address] Dr. Joe Shea NEUT # 16.7 103/ul Critically high 1.4-6.5 [facility] Comment on above: Performed By: #### C MP, LIPA, NESTOR #### [facility] [address] [place] [address] Dr. Joe Shea Neutrophils/100 WBC (Bld) 92.6 % Critically high 43.0- 75.0 [facility] Comment on above: Performed By: #### C CARLYN DE JESUS AMY #### [facility] [address] [place] [address] Dr. Joe Shea Platelet mean volume (Bld) [Entitic vol] 11.0 fL Normal 9.5-13.5 [facility] Comment on above: Performed By: #### C CARLYN DE JESUS AMY #### [facility] [address] [place] [address] Dr. Joe Shea PLT 323 103/ul Normal 150-450 [facility] Comment on above: Performed By: #### C CARLYN DE JESUS AMY #### [facility] [address] [place] [address] Dr. Joe Shea RBC 4.52 106/ul Normal 4.20-5.40 [facility] Comment on above: Performed By: #### C CARLYN DE JESUS AMY #### [facility] [address] [place] [address] Dr. Joe Shea WBC 18.0 103/ul Critically high 4.0-11.0 [facility] Comment on above: Performed By: #### C CARLYN DE JESUS AMY #### [facility] [address] [place] [address] Dr. Joe Shea ER URINE PROFILEon 2 Bilirubin Ql (U) Negative Normal NEGATIVE [facility] Comment on above: Performed By: #### Althea GTZ #### [facility] [address] [place] [address] Dr. Joe Shea Clarity (U) CLEAR Normal CLEAR [facility] Comment on above: Performed By: #### Althea GTZ #### [facility] [address] [place] [address] Dr. Joe Shea Color (U) YELLOW Normal YELLOW [facility] Comment on above: Performed By: #### Althea GTZ #### [facility] [address] [place] [address] Dr. Jeo Shea ERUAHD A micrscopic examination will be performed if indicated. Normal [facility] Comment on above: Performed By: #### Althea GTZ #### [facility] [address] [address] [address] Joe Shea Glucose Ql (U) Negative Normal NEGATIVE [facility] Comment on above: Performed By: #### Althea GTZ #### [facility] [address] [address] [address] Joe Shea Hemoglobin Ql (U) Negative Normal NEGATIVE [facility] Comment on above: Performed By: #### Althea GTZ #### [facility] [address] [address] [address] Joe Shea Ketones Ql (U) 15 mg/dl Abnormal NEGATIVE [facility] Comment on above: Performed By: #### Althea GTZ #### [facility] [address] [address] [address] Joe Shea LEUKOCYTES Negative Normal NEGATIVE [facility] Comment on above: Performed By: #### Althea GTZ #### [facility] [address] [address] [address] Joe Shea Nitrite Ql (U) Negative Normal NEGATIVE [facility] Comment on above: Performed By: #### Althea GTZ #### [facility] [address] [address] [address] Joe Shea pH (U) 5.5 [pH] Normal 5-9 [facility] Comment on above: Performed By: #### Althea GTZ #### [facility] [address] [address] [address] Joe Shea SPEC GRAVITY >=1.030 Abnormal 1.005-<=1.02 5 [facility] Comment on above: Performed By: #### Althea GTZ #### [facility] [address] [place] [address] Dr. Joe Shea UA PROTEIN Negative Normal NEGATIVE/ TRACE [facility] Comment on above: Performed By: #### Althea GTZ #### [facility] [address] [address] [address] Joe Shea UR MICRO IND NOT INDICATED Normal [facility] Comment on above: Performed By: #### Althea GTZ #### [facility] [address] [address] [address] Joe Shea Urobilinogen Qn (U) 1.0 {Pascual'U}/dL Normal 0.2 - 1. 0 [facility] Comment on above: Performed By: #### D TRESA #### [facility] [address] [place] [address] Dr. Joe Shea LACTATE/LACTIC ACIDon 2021 Lactate [Moles/Vol] 1.0 mmol/L Normal 0.4-1.9 [facility] Comment on above: Performed By: #### C BC #### [facility] [address] [place] [address] Dr. Joe Shea LIPASEon 05-22-2022 Lipase [Catalytic activity/Vol] 205.0 U/L Normal 73.0-393.0 [facility] Comment on above: Performed By: #### A MY, CMP, LIPA #### [facility] [address] [place] [address] Dr. Joe Shea MRI BRAIN WO CONon [...] ANGIE LO Date: 2022-05-22 16:17 Normal [facility] URon 05-22-2022 , QUAL Negative Normal NEGATIVE [facility] Comment on above: Performed By: #### D TRESA #### [facility] [address] [address] [address] Joe Shea PROF 14(COMP METB)on 022 Albumin [Mass/Vol] 4.5 g/dL Normal 3.4-5.0 [facility] Comment on above: Performed By: #### Althea GTZ #### [facility] [address] [address] [address] Joe Shea Albumin/Globulin [Mass ratio] 1.4 {ratio} Normal [facility] Comment on above: Performed By: #### Althea GTZ #### [facility] [address] [address] [address] Joe Shea ALP [Catalytic activity/Vol] 60 U/L Normal 46-116 [facility] Comment on above: Performed By: #### Althea GTZ #### [facility] [address] [address] [address] Joe Shea ALT [Catalytic activity/Vol] 17 U/L Normal 14-59 [facility] Comment on above: Performed By: #### Althea GTZ #### [facility] [address] [address] [address] Joe Shea Anion gap [Moles/Vol] 10.9 mmol/L Normal [facility] Comment on above: Performed By: #### Althea GTZ #### [facility] [address] [address] [address] Joe Shea AST [Catalytic activity/Vol] 19 U/L Normal 15-37 [facility] Comment on above: Performed By: #### Althea GTZ #### [facility] [address] [address] [address] Joe Shea Bilirubin [Mass/Vol] 0.8 mg/dL Normal 0.2-1.0 [facility] Comment on above: Performed By: #### Althea GTZ #### [facility] [address] [address] [address] Joe Shea Calcium [Mass/Vol] 9.0 mg/dL Normal 8.5-10.1 [facility] Comment on above: Performed By: #### Althea GTZ #### [facility] [address] [address] [address] Joe Shea Chloride [Moles/Vol] 102 mmol/L Normal 98-107 [facility] Comment on above: Performed By: #### Althea GTZ #### [facility] [address] [address] [address] Joe Shea CO2 [Moles/Vol] 28.7 mmol/L Normal 21.0-32.0 [facility] Comment on above: Performed By: #### Althea GTZ #### [facility] [address] [address] [address] Joe Shea Creatinine [Mass/Vol] 0.73 mg/dL Normal 0.55-1.02 [facility] Comment on above: Performed By: #### Althea GTZ #### [facility] [address] [address] [address] Joe Shea EGFR-AF FILIPINO >60 Normal >=60 [facility] Comment on above: Performed By: #### Althea GTZ #### [facility] [address] [address] [address] Joe Shea EGFR-NON AF FILIPINO >60 Normal >=60 [facility] Comment on above: Performed By: #### Althea GTZ #### [facility] [address] [address] [address] Joe Shea Globulin (S) [Mass/Vol] 3.2 g/dL Normal [facility] Comment on above: Performed By: #### Althea GTZ #### [facility] [address] [address] [address] Joe Shea Glucose [Mass/Vol] 113 mg/dL Critically high 74-[address] [facility] Comment on above: Performed By: #### Althea GTZ #### [facility] [address] [address] [address] Joe Shea Potassium [Moles/Vol] 3.6 mmol/L Normal 3.5-5.1 [facility] Comment on above: Performed By: #### Althea GTZ #### [facility] [address] [address] [address] Joe Shea Protein [Mass/Vol] 7.7 g/dL Normal 6.4-8.2 [facility] Comment on above: Performed By: #### D TRESA #### [facility] [address] [address] [address] Joe Shea Sodium [Moles/Vol] 138 mmol/L Normal 136-145 [facility] Comment on above: Performed By: #### D TRESA #### [facility] [address] [address] [address] Joe Shea Urea nitrogen [Mass/Vol] 9.0 mg/dL Normal 7.0-18.0 [facility] Comment on above: Performed By: #### D TRESA #### [facility] [address] [address] [address] Joe Shea Urea nitrogen/Creatinine [Mass ratio] 12.3 mg/mg Normal [facility] Comment on above: Performed By: #### D TRESA #### [facility] [address] [address] [address] Joe Shea XR CHEST 2 Von [...] ANA COTE Date: 2022-05-22 02:56 Normal [facility] PROGESTERONEon 05-08-2022 Progesterone 18.1 ng/mL Normal [facility] Comment on above: Result Comment: Foll icular phase 0.1 - 0.9 Luteal phase 1.8 - 23.9 Ovulation phase 0.1 - 12.0 First trimester 11.0 - 44.3 Second trimester 25.4 - 83.3 Third trimester 58.7 - 214.0 Postmenopausal 0.0 - 0.1 Performed By: #### C BC #### [facility] [address] [place], [place] [address] Dr. Joe Shea DHEA SERUMon 04-12-2022 Dehydroepiandrosterone (DHEA) 577 ng/dL Normal [address] [facility] Comment on above: Result Comment: [...] 701 Performed By: #### C BC #### [facility] [address] [place] [id number] [address] Joe Shea PROGESTERONEon 04-10-2022 Progesterone 16.0 ng/mL Normal [facility] Comment on above: Result Comment: Foll icular phase 0.1 - 0.9 Luteal phase 1.8 - 23.9 Ovulation phase 0.1 - 12.0 First trimester 11.0 - 44.3 Second trimester 25.4 - 83.3 Third trimester 58.7 - 214.0 Postmenopausal 0.0 - 0.1 Performed By: #### Althea GTZ #### [facility] [address] [place] [address] Dr. Joe Shea DHEA-SULFATEon 04-06-2022 DHEA-Sulfate 241.0 ug/dL Normal 110.0-431.7 [facility] Comment on above: Performed By: #### Althea GTZ #### [facility] [address] [place] [address] Dr. Joe Shea FSHon 04-06-2022 FSH 6.6 mIU/mL Normal [facility] Comment on above: Result Comment: Adul t Female: Follicular phase 3.5 - 12.5 Ovulation phase 4.7 - 21.5 Luteal phase 1.7 - 7.7 Postmenopausal 25.8 - 134.8 Performed By: #### Althea GTZ #### [facility] [address] [place] [address] Dr. Joe Shea LUTEINIZING HORMONE (LH)on 1 LH 19.8 mIU/mL Normal [facility] Comment on above: Result Comment: Adul t Female: Follicular phase 2.4 - 12.6 Ovulation phase 14.0 - 95.6 Luteal phase 1.0 - 11.4 Postmenopausal 7.7 - 58.5 Performed By: #### L BCL #### [facility] [address] [place] [address] Dr. Joe Shea CBC AUTO DIFFon 04-05-2022 BASO # 0.1 103/ul Normal 0.0-0.1 [facility] Comment on above: Performed By: #### C BC #### [facility] [address] [place] [address] Dr. Joe Shea Basophils/100 WBC (Bld) 0.9 % Normal 0.2-2.[address] [facility] Comment on above: Performed By: #### C BC #### [facility] [address] [place] [address] Dr. Joe Shea EO # 0.2 103/ul Normal 0.0-0.7 [facility] Comment on above: Performed By: #### C BC #### [facility] [address] [place] [address] Dr. Joe Shea Eosinophils/100 WBC (Bld) 2.6 % Normal 0.9-7.0 [facility] Comment on above: Performed By: #### C BC #### [facility] [address] [place] [address] Dr. Joe Shea Erythrocyte distribution width (RBC) [Ratio] 13.1 % Normal 11.0-15.0 [facility] Comment on above: Performed By: #### C BC #### [facility] [address] [place] [address] Dr. Joe Shea Hematocrit (Bld) [Volume fraction] 38.2 % Normal 36.0-48.0 [facility] [facility] Comment on above: Performed By: #### C BC #### [facility] [address] [place] [address] Dr. Joe Shea Hemoglobin (Bld) [Mass/Vol] 12.3 g/dL Normal 12.0-16.0 [facility] Comment on above: Performed By: #### C BC #### [facility] [address] [place] [address] Dr. Joe Shea IG # 0.01 10e3/ul Normal 0.00-0.03 [facility] Comment on above: Performed By: #### C BC #### [facility] [address] [place] [address] Dr. Joe Shea IG % 0.2 % Normal 0.0-0.5 [facility] Comment on above: Performed By: #### C BC #### [facility] [address] [place] [address] Dr. Joe Shea LYMPH # 1.7 103/ul Normal 1.2-3.8 [facility] Comment on above: Performed By: #### C BC #### [facility] [address] [place] [address] Dr. Joe Shea Lymphocytes/100 WBC (Bld) 29.2 % Normal 20.5-60.0 [facility] Comment on above: Performed By: #### C BC #### [facility] [address] [place] [address] Dr. Joe Shea MANUAL DIFF REQ NO Normal [facility] Comment on above: Performed By: #### C BC #### [facility] [address] [place] [address] Dr. Joe Shea MCH (RBC) [Entitic mass] 28.4 pg Normal 26.7-34.0 [facility] Comment on above: Performed By: #### C BC #### [facility] [address] [place] [address] Dr. Joe Shea MCHC (RBC) [Mass/Vol] 32.2 g/dL Normal 29.9-35.2 [facility] Comment on above: Performed By: #### C BC #### [facility] [address] [place] [address] Dr. Joe Shea MCV (RBC) [Entitic vol] 88.2 fL Normal 81.0-99.[address] [facility] Comment on above: Performed By: #### C BC #### [facility] [address] [place] [address] Dr. Joe Shea MONO # 0.5 103/ul Normal 0.3-0.8 [facility] Comment on above: Performed By: #### C BC #### [facility] [address] [place] [address] Dr. Joe Shea Monocytes/100 WBC (Bld) 8.2 % Normal 1.7-12.[address] [facility] Comment on above: Performed By: #### C BC #### [facility] [address] [place] [address] Dr. Joe Shea NEUT # 3.4 103/ul Normal 1.4-6.5 [facility] Comment on above: Performed By: #### C BC #### [facility] [address] [place] [address] Dr. Joe Shea Neutrophils/100 WBC (Bld) 58.9 % Normal 43.0-75.0 [facility] Comment on above: Performed By: #### C BC #### [facility] [address] [place] [address] Dr. Joe Shea Platelet mean volume (Bld) [Entitic vol] 11.5 fL Normal 9.5-13.5 [facility] Comment on above: Performed By: #### C BC #### [facility] [address] [place] [address] Dr. Joe Shea PLT 233 103/ul Normal 150-450 [facility] Comment on above: Performed By: #### C BC #### [facility] [address] [place] [address] Dr. Joe Shea RBC 4.33 106/ul Normal 4.20-5.40 [facility] Comment on above: Performed By: #### C BC #### [facility] [address] [place] [address] Dr. Joe Shea WBC 5.8 103/ul Normal 4.0-11.0 [facility] Comment on above: Performed By: #### C BC #### [facility] [address] [place] [address] Dr. Joe Shea GLYCOHEMOGLOBIN A1Con 2021 ADA RECOMMENDATION SEE BELOW Normal [facility] Comment on above: Result Comment: ADA RECOMMENDED LIMIT 4.0 - 6.0 ADA THERAPEUTIC TARGET < 7.0 ACTION SUGGESTED > 7.0 Performed By: #### C CARLYN DE JESUS AMY #### [facility] [address] [place] [address] Dr. Joe Shea Glucose [Mass/Vol] 105 mg/dL Normal [facility] Comment on above: Performed By: #### C CARLYN DE JESUS AMY #### [facility] [address] [address] [address] Joe Shea HbA1c (Bld) [Mass fraction] 5.3 % Normal 4.5-6.2 [facility] Comment on above: Performed By: #### C CARLYN DE JESUS AMY #### [facility] [address] [place] [address] Dr. Joe Shea TSHon 04-05-2022 TSH 0.609 uIU/mL Normal 0.358-3.740 [facility] Comment on above: Performed By: #### C BC #### [facility] [address] [place] [address] Dr. Joe Shea US PELVIS AND TRANSVAGon [...] ANGIE MEJIA Date: 2022-04-05 17:23 Normal [facility] AMYLASEon 03-10-2022 Amylase [Catalytic activity/Vol] 64 U/L Normal 25-115 [facility] Comment on above: Performed By: #### C BC #### [facility] [address] [place] [address] Dr. Joe Shea CBC AUTO DIFFon 03-10-2022 BASO # 0.1 103/ul Normal 0.0-0.1 [facility] Comment on above: Performed By: #### C BC #### [facility] [address] [place] [address] Dr. Joe Shea Basophils/100 WBC (Bld) 0.6 % Normal 0.2-2.[address] [facility] Comment on above: Performed By: #### C BC #### [facility] [address] [place] [address] Dr. Joe Shea EO # 0.3 103/ul Normal 0.0-0.7 [facility] Comment on above: Performed By: #### C BC #### [facility] [address] [place] [address] Dr. Joe Shea Eosinophils/100 WBC (Bld) 1.7 % Normal 0.9-7.0 [facility] Comment on above: Performed By: #### C BC #### [facility] [address] [place] [address] Dr. Joe Shea Erythrocyte distribution width (RBC) [Ratio] 13.1 % Normal 11.0-15.0 [facility] Comment on above: Performed By: #### C BC #### [facility] [address] [place] [address] Dr. Joe Shea Hematocrit (Bld) [Volume fraction] 37.9 % Normal 36.0-48.0 [facility] Comment on above: Performed By: #### C BC #### [facility] [address] [place] [address] Dr. Joe Shea Hemoglobin (Bld) [Mass/Vol] 12.2 g/dL Normal 12.0-16.0 [facility] Comment on above: Performed By: #### C BC #### [facility] [address] [place] [address] Dr. Joe Shea IG # 0.05 10e3/ul Critically high 0.00-0.03 [facility] Comment on above: Performed By: #### C BC #### [facility] [address] [place] [address] Dr. Joe Shea IG % 0.3 % Normal 0.0-0.5 [facility] Comment on above: Performed By: #### C BC #### [facility] [address] [place] [address] Dr. Joe Shea LYMPH # 4.7 103/ul Critically high 1.2-3.8 [facility] Comment on above: Performed By: #### C BC #### [facility] [address] [place] [address] Dr. Joe Shea Lymphocytes/100 WBC (Bld) 28.3 % Normal 20.5-60.0 [facility] Comment on above: Performed By: #### C BC #### [facility] [address] [place] [address] Dr. Joe Shea MANUAL DIFF REQ NO Normal [facility] Comment on above: Performed By: #### C BC #### [facility] [address] [place] [address] Dr. Joe Shea MCH (RBC) [Entitic mass] 27.9 pg Normal 26.7-34.0 [facility] Comment on above: Performed By: #### C BC #### [facility] [address] [place] [address] Dr. Joe Shea MCHC (RBC) [Mass/Vol] 32.2 g/dL Normal 29.9-35.2 [facility] Comment on above: Performed By: #### C BC #### [facility] [address] [place] [address] Dr. Joe Shea MCV (RBC) [Entitic vol] 86.5 fL Normal 81.0-99.[address] [facility] Comment on above: Performed By: #### C BC #### [facility] [address] [place] [address] Dr. Joe Shea MONO # 0.9 103/ul Critically high 0.3-0.8 [facility] Comment on above: Performed By: #### C BC #### [facility] [address] [place] [address] Dr. Joe Shea Monocytes/100 WBC (Bld) 5.5 % Normal 1.7-12.[address] [facility] Comment on above: Performed By: #### C BC #### [facility] [address] [place] [address] Dr. Joe Shea NEUT # 10.5 103/ul Critically high 1.4-6.5 [facility] Comment on above: Performed By: #### C BC #### [facility] [address] [place] [address] Dr. Joe Shea Neutrophils/100 WBC (Bld) 63.6 % Normal 43.0-75.0 [facility] Comment on above: Performed By: #### C BC #### [facility] [address] [place] [address] Dr. Joe Shea Platelet mean volume (Bld) [Entitic vol] 11.1 fL Normal 9.5-13.5 [facility] Comment on above: Performed By: #### C BC #### [facility] [address] [place] [address] Dr. Joe Shea PLT 428 103/ul Normal 150-450 [facility] Comment on above: Performed By: #### C BC #### [facility] [address] [place] [address] Dr. Joe Shea RBC 4.38 106/ul Normal 4.20-5.40 [facility] Comment on above: Performed By: #### C BC #### [facility] [address] [place] [address] Dr. Joe Shea WBC 16.6 103/ul Critically high 4.0-11.0 [facility] Comment on above: Performed By: #### C BC #### [facility] [address] [place] [address] ABD/PELV W CONon [...] by: MURALI STRANGE Date: 2022-03-10 16:59 Normal [facility] LIPASEon 03-10-2022 Lipase [Catalytic activity/Vol] 81.0 U/L Normal 73.0-393.0 [facility] Comment on above: Performed By: #### C BC #### [facility] [address] [place] [address] Dr. Joe Shea LIVER PROFILEon 03-10-2022 Albumin [Mass/Vol] 4.2 g/dL Normal 3.4-5.0 [facility] Comment on above: Performed By: #### C BC #### [facility] [address] [place] [address] Dr. Joe Shea Albumin/Globulin [Mass ratio] 1.4 {ratio} Normal [facility] Comment on above: Performed By: #### C BC #### [facility] [address] [place] [address] Dr. Joe Shea ALP [Catalytic activity/Vol] 50 U/L Normal 46-116 [facility] Comment on above: Performed By: #### C BC #### [facility] [address] [place] [address] Dr. Joe Shea ALT [Catalytic activity/Vol] 14 U/L Normal 14-59 [facility] Comment on above: Performed By: #### C BC #### [facility] [address] [address] [address] Joe Shea AST [Catalytic activity/Vol] 13 U/L Critically low 15-37 [facility] Comment on above: Performed By: #### C BC #### [facility] [address] [address] [address] Joe Shea BILI, CONJUGATED 0.1 mg/dL Normal 0.0-0.2 [facility] Comment on above: Performed By: #### C BC #### [facility] [address] [place] [address] Dr. Joe Shea Bilirubin [Mass/Vol] 0.3 mg/dL Normal 0.2-1.0 [facility] Comment on above: Performed By: #### C BC #### [facility] [address] [place] [address] Dr. Joe Shea Globulin (S) [Mass/Vol] 3.1 g/dL Normal [facility] Comment on above: Performed By: #### C BC #### [facility] [address] [place] [address] Dr. Joe Shea Protein [Mass/Vol] 7.3 g/dL Normal 6.4-8.2 [facility] Comment on above: Performed By: #### C BC #### [facility] [address] [place] [address] Dr. Joe Shea PREG HCG QUALon 03-10-2022 , QUAL Negative Normal NEGATIVE [facility] Comment on above: Performed By: #### L BCLH #### [facility] [address] [place] [address] Dr. Joe Shea PROF CHEM 8 (BAS METB)on Anion gap [Moles/Vol] 17.6 mmol/L Normal [facility] Comment on above: Performed By: #### C MP, LIPA, NESTOR #### [facility] [address] [address] [address] Joe Shea Calcium [Mass/Vol] 9.0 mg/dL Normal 8.5-10.1 [facility] Comment on above: Performed By: #### C CARLYN DE JESUS, NESTOR #### [facility] [address] [place] [address] Dr. Joe Shea Chloride [Moles/Vol] 102 mmol/L Normal 98-107 [facility] Comment on above: Performed By: #### C CARLYN DE JESUS, NESTOR #### [facility] [address] [place] [address] Dr. Joe Shea CO2 [Moles/Vol] 23.4 mmol/L Normal 21.0-32.0 [facility] Comment on above: Performed By: #### C CARLYN DE JESUS, NESTOR #### [facility] [address] [place] [address] Dr. Joe Shea Creatinine [Mass/Vol] 0.84 mg/dL Normal 0.55-1.02 [facility] Comment on above: Performed By: #### C HUGO DE JESUSA, NESTOR #### [facility] [address] [place] [address] Dr. Joe Shea EGFR-AF FILIPINO >60 Normal >=60 [facility] Comment on above: Performed By: #### C HUGO DE JESUSA, NESTOR #### [facility] [address] [place] [address] Dr. Joe Shea EGFR-NON AF FILIPINO >60 Normal >=60 [facility] Comment on above: Performed By: #### C CARLYN DE JESUS, NESTOR #### [facility] [address] [place] [address] Dr. Joe Shea Glucose [Mass/Vol] 149 mg/dL Critically high 74-[address] [facility] Comment on above: Performed By: #### C HUGO DE JESUSA, NESTOR #### [facility] [address] [place] [address] Dr. Joe Shea Potassium [Moles/Vol] 2.9 mmol/L Critically low 3.5-5.1 [facility] Comment on above: Performed By: #### C HUGO DE JESUSA, NESTOR #### [facility] [address] [address] [address] Joe Shea Sodium [Moles/Vol] 139 mmol/L Normal 136-145 [facility] Comment on above: Performed By: #### C MP, LIPA, NESTOR #### [facility] [address] [address] [address] Joe Shea Urea nitrogen [Mass/Vol] 11.0 mg/dL Normal 7.0-18.0 [facility] Comment on above: Performed By: #### C MP, LIPA, NESTOR #### [facility] [address] [address] [address] Joe Shea Urea nitrogen/Creatinine [Mass ratio] 13.1 mg/mg Normal [facility] Comment on above: Performed By: #### C MP, LIPA, NESTOR #### [facility] [address] [address] [address] Joe Shea XR CSPINE 2_3 VIEWSon [...] ANGIE MEJIA Date: 2022-01-18 08:03 Normal [facility] C BP Strepon 12-23-2019 C BP Strep This is strictly a screening test for Strep Group A( Streptococcus pyogenes). No other pathogens will be noted. Final Backup plate negative for Group A Streptococus Resulted at [facility] Normal [facility] Comment on above: Performed By: #### B P #### [facility] (DEFAULT) [address] [place] [address] [facility] [address] [place] [address] Ambulatory Patient Education on 12-21-2019 Ambulatory Patient [...] a child 2 years or older. ? [id number] [employer] [place] [address], [place] [address]. All rights reserved. This information is not intended as a substitute for professional medical care. Always follow your healthcare professional's instructions. Strep today is Negative. Will send for culture to [facility] and notify if it returns positive. Take medication as prescribed. Discontinue for a negative strep culture. Discard and replace toothbrush after taking antibiotics for at least 24 hours. May use eupi-zwz-wydvtap Tylenol and Motrin for pain relief. May use of rwux-spn-mxabgbe Chloraseptic throat spray, lozenges, cool or warm [...] tabs, 0 Refill(s), 12/26/19 14:42:00 EDT, Pharmacy: [facility] [id number] [facility] [place] Trackon 12-21-2019 BVO Red Swab # 1 Normal [facility] Comment on above: Performed By: #### [facility] Tracking Order #### [facility] [address] [place] [address] Urgent Care Office/Clinic No sabiha 12-21-2019 Urgent [...] POC: negative. Swab will be sent to [facility] for culture. We will call if positive and treat appropriately. Additional Vitals Body Mass Index Measured: 18.43 kg/m2 Peripheral Pulse Rate: 111 bpm High Assessment/Plan 1. Sore throat Strep today is Negative. Will send for culture to [facility] and notify if it returns positive. Take medication as prescribed. Discontinue for a negative strep culture. Discard and replace toothbrush after taking antibiotics for at least 24 hours. May use vbeq-jzs-jzpvuug Tylenol and Motrin for pain relief. May use of vkrv-lgr-anrmrhv Chloraseptic throat spray, lozenges, cool or warm [...] tabs, 0 Refill(s), 12/26/19 14:42:00 EDT, Pharmacy: [id number] Cent[facility] criteria reviewed. [...] Fitch 12/21/19 15:01 EDT Normal [facility] Vital Signs Date Time Vital Sign Value Performing Clinician Facility 03-28-2023 10:160400 Body height 157.48 cm Referring Provider Unknown [id number] [address] [place] Work Phone: 03-28-2023 10:16-0400 Body mass index (BMI) [Ratio] 23.78 kg/m2 Referring Provider Unknown [id number] [address] [place] Work Phone: 03-28-2023 10:16-0400 Body surface area Derived from formula 1.59 m2 Referring Provider Unknown [id number] [address] [place] Work Phone: 03-28-2023 10:16-0400 Body weight 58.97 kg Referring Provider Unknown [id number] [address] [place] Work Phone: 03-28-2023 10:16-0400 Diastolic blood pressure 65 mm[Hg] Referring Provider Unknown [id number] [address] [place] Work Phone: 03-28-2023 10:16-0400 Heart rate 96 /min Referring Provider Unknown [id number] [address] [place] Work Phone: 03-28-2023 10:16-0400 Systolic blood pressure 107 mm[Hg] Referring Provider Unknown [id number] [address] [place] Work Phone: 03-28-2023 10:16-0400 0 1 Referring Provider Unknown [id number] [address] [place] Work Phone: Comment on above: [facility] 02-14-2023 09:15-0400 Body height 154.94 cm Filippo Larson Other [facility] Other 02-14-2023 09:15-0400 Body mass index (BMI) [Ratio] 21.73 kg/m2 Filippo Larson Other [facility] Other 02-14-2023 09:15-0400 Body weight 52.16 kg Filippo Larson Other [facility] Other 02-14-2023 09:15-0400 Diastolic blood pressure 68 mm[Hg] Filippo Larson Other [facility] Other 02-14-2023 09:15-0400 Systolic blood pressure 96 mm[Hg] Filippo Larson Other [facility] Other 07-17-2022 14:26-0500 Blood Pressure Location Mayito LIM [facility] [place] 07-17-2022 14:26-0500 Diastolic blood pressure 70 mm[Hg] Mayito NILL [facility] [place] 07-17-2022 14:26-0500 Heart rate 70 /min Mayito NILL [facility] [place] 07-17-2022 14:26-0500 Respiratory rate 16 /min Mayito NILL [facility] [place] 07-17-2022 14:26-0500 Systolic blood pressure 102 mm[Hg] Mayito NILL [facility] [place] 03-09-2020 20:24-0400 BP Diastolic 61 mm[Hg] PHYSICIAN NO [facility] 03-09-2020 20:24-0400 BP Systolic 117 mm[Hg] PHYSICIAN NO [facility] 03-09-2020 20:24-0400 Pulse (Heart Rate) 85 /min PHYSICIAN NO [facility] 03-09-2020 20:24-0400 Pulse Oximetry 100 % PHYSICIAN NO [facility] 03-09-2020 20:24-0400 Respiratory Rate 24 /min PHYSICIAN NO [facility] 03-09-2020 18:49-0400 BMI (Body Mass Index) 20 kg/m2 PHYSICIAN NO [facility] 03-09-2020 18:49-0400 Body Temperature 98.7 [degF] PHYSICIAN NO [facility] 03-09-2020 18:49-0400 Body weight 49.7 kg PHYSICIAN NO [facility] 03-09-2020 18:49-0400 Height 157.48 cm PHYSICIAN NO [facility] Encounters Encounter Date Encounter Type Care Provider Facility Start: 07-22-2023 End: 07-22-2023 ambulatory Cecil Lilian Facility:[facility] Start: 07-22-2023 End: 07-22-2023 ambulatory Cecil Lilian Work Phone: [facility] Work Phone: Start: 07-22-2023 End: 07-22-2023 Departed Referred Cecil Lilian Work Phone: [facility] Start: 07-22-2023 End: 07-22-2023 ambulatory CECIL [...] Cervantes MD Work Phone: [facility]aternal- [facility] Comment on above: 34 weeks gestation o f (Primary Dx); Poor growth affecting management of mother in third trimester, fetus 1 of multiple gestation; Dichorionic diamniotic twin in third trimester; Anxiety during Start: 07-04-2023 Orders Only Freddy Hughes [facility] Comment on above: Dichorionic diamniot [...] new/estab patient 80 min Referring Provider Unknown [id number] [address] [place] Work Phone: Start: 03-28-2023 Patient encounter procedure Referring Provider Unknown [id number] [address] [place] Work Phone: Start: 03-28-2023 ambulatory Ramakrishna Schwarz Facility :[facility] Start: 02-14-2023 End: 02-14-2023 ambulatory Filippo Larson Other [facility] Other Start: 02-14-2023 Office outpatient vi sit [...] laboratory examination DR CECIL JOHNSON . [facility] Start: 07-06-2022 End: 07-07-[address] CECIL JOHNSON . Facility:[facility] Start: 07-06-2022 End: 07-07-2022 Encounter for preprocedural laboratory examination DR CECIL JOHNSON . Facility:[facility] Start: 06-15-2022 End: 06-16-[address] CECIL JOHNSON . Facility:[facility] Start: 06-11-2022 End: 06-12-2022 ambulatory JUANJOSE VIRAMONTES Facility:[facility] Start: 06-08-2022 ambulatory SUKI CONDE PROVIDER Facility:[facility] Start: 05-31-2022 End: 06-01-[address] CECIL JOHNSON . Facility:[facility] Start: 05-29-2022 End: 05-29-2022 ambulatory HARMAN ADAMS Facility:[facility] Start: 05-23-2022 End: 05-23-2022 ambulatory MARYURI KAPLAN . Facility:[facility] Start: 05-22-2022 End: 05-22-2022 ambulatory HARMAN ADAMS Facility:[facility] Start: 05-21-2022 End: 05-22-[address] SHIRLEY SHEPHERD Facility:[facility] Start: 05-07-2022 End: 05-08-[address] CECIL JOHNSON . Facility:[facility] Start: 04-09-2022 End: 04-10-[address] CECIL JOHNSON . Facility:[facility] Start: 04-05-2022 End: 04-06-[address] CECIL JOHNSON . Facility:[facility] Start: 03-10-2022 End: 03-10-[address] SUKI CONDE Facility:[facility] Start: 03-10-2022 End: 03-10-[address] SUKI CONDE Facility:[facility] Start: 01-17-2022 End: 01-18-[address] SUKI CONDE Facility:[facility] Start: 03-09-2020 End: 03-09-2020 Emergency department patient visit PHYSICIAN KIMI [facility] Start: 04-27-2014 End: 04-27-2014 Telephone encounter Noa Dimas MD Work Phone: Reproductive Endocrinology Infertility Procedures Date Procedure Procedure Detail Performing Clinician Start: 10-25-2020 Microscopic observation [Identifier] in Cervix by Cyto stain 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 [employer] Colonoscopy Mayito NILCourtney Dilation and curettage Temo OBANDOL Dilation and curettage Temo OBANDOL Esophagogastroduodenoscopy Arianna OBANDOL Excision of cyst of ovary Juana OBANDOL Lesley Weiner GISELLACourtney Plan of Treatment Date Care Activity Detail Author Start: 05-28-2032 DTaP,Tdap and Td Vaccines (8 - Td or Tdap) DTaP,Tdap and Td Vaccines (8 - Td or Tdap) [facility] Start: 07-04-2024 End: 07-04-2024 US MFM with or without consult US MFM with or without consult Imaging Routine Dichorionic diamniotic twin in third trimester Poor growth affecting management of mother in third trimester, fetus 1 of multiple gestation Expected: 07/04/2024 (Approximate), Expires: 07/04/2024 [facility] Work Phone: Comment on above: Expected: 07/04/2024 (Approximate), Expires: 07/04/2024 Start: 06-03-2024 Adult BMI Screening Adult BMI Screen ing [facility] Start: 06-03-2024 Tobacco Screening Tobacco Screening [facility] Start: 2024 Screening for Chlamy carroll trachomatis Chlamydia Screening [facility] Start: 10-26-2023 Screening for malign ant neoplasm of cervix Pap Smear [facility] Start: 07-17-2023 End: 07-17-2023 Patient encounter procedure 07/17/2023 9:30 AM EST Appointment [facility] [address] [place] [id number] [facility] Start: 07-08-2023 End: 07-08-2023 Telemedicine consultation with patient 07/08/2023 1:00 PM EST Telemedicine Maternal- Medicine at [facility] [address] [place] [phone] Paulie Cervantes MD [address] [place] [address] Lyly Smith MD [address] [place] [address] Maternal- Medicine at [facility] Start: 03-01-2023 Influenza vaccination Influenza Vacc ine [facility] Start: 03-01-2021 Influenza vaccination INFLUENZ A (Season Ended) [place] Start: 02-28-2020 PAP TESTING PAP TESTING [place] Start: 2018 Urine microalbumin profile DTAP,TDAP,TD (1 - Tdap) [place] Start: 2017 Adult BMI Follow Up Plan Adult BMI Follow Up Plan [facility] Start: 2017 CHLAMYDIA SCREENING (18-24) CHLAMYDIA SCREENING (18-24) [place] Start: 2017 GC (GONORRHEA) SCREE KRUNAL (18-24) GC (GONORRHEA) SCREENING (18-24) [place] Start: 2017 HEPATITIS C SCREENING HEPATITIS C SC REENING [place] Start: 2017 HIV SCREENING HIV SCREENING [facility] Start: 2011 Adult depression screening assessment DEPRESSION SCREENING [facility] Start: 2010 HPV VACCINE (1 - 2-d ose series) HPV VACCINE (1 - 2-dose series) [place] Patient Education Anxiety (ED) [facility] Patient referral [facility] Immunizations Immunization Date Immunization Notes Care Provider Laverne irizarry 01-05-2022 influenza virus vaccine, unspecified formulation [facility] NEGATED: Highlighted row has not occurred!07-17-2022 influenza virus vaccine, unspecified formulation Mayito LIM [facility] [place] Payers Date Payer Category Payer Self-pay [id number] 2019 Unknown 2013 Unknown [facility] [employer] [place] PPO CONNECT INHEAL [id number] 2013-2014 PPO [id number] 1999 Unknown [id number] 2.16.840.1.146112.3.579.2.727 1999 Unknown [id number] 2.16.840.1.165946.3.579.2.727 1999 Unknown [id number] 2.16.840.1.987470.3.579.2.593 1999 Unknown [id number] 2.16.840.1.631212.3.579.2.593 1999 Unknown [id number] 2.16.840.1.083355.3.579.2.593 1999 Unknown [id number] 2.16.840.1.718230.3.579.2.593 1999 Unknown [id number] 2.16.840.1.013172.3.579.2.593 1999 Unknown [id number] 2.16.840.1.848577.3.579.2.593 1999 Unknown [id number] 2.16.840.1.098929.3.579.2.593 1999 Unknown [id number] 2.16.840.1.299470.3.579.2.593 1999 Unknown [id number] 2.16.840.1.633904.3.579.2.593 1999 Unknown [id number] 2.16.840.1.161535.3.579.2.593 1999 Unknown [id number] 2.16.840.1.615300.3.579.2.593 1999 Unknown [id number] 2.16.840.1.210788.3.579.2.593 1999 Unknown [id number] 2.16.840.1.055311.3.579.2.593 1999 Unknown [id number] 2.16.840.1.196730.3.579.2.593 1999 Unknown [id number] 2.16.840.1.431970.3.579.2.593 1999 Unknown [id number] 2.16.840.1.330277.3.579.2.593 1999 Unknown [id number] 2.16.840.1.647305.3.579.2.593 1999 Unknown [id number] 2.16.840.1.469321.3.579.2.593 1999 Unknown [id number] 2.16.840.1.328099.3.579.2.593 1999 Unknown [id number] 2.16.840.1.727204.3.579.2.593 1999 Unknown [id number] 2.16.840.1.876738.3.579.2.593 1999 Unknown [id number] 2.16.840.1.543502.3.579.2.356 1999 Unknown [id number] 2.16.840.1.363502.3.579.2.1286 1999 Unknown [id number] 2.16.840.1.467485.3.579.2.1286 1999 Unknown [id number] 2.16.840.1.823873.3.579.2.1286 1999 Unknown [id number] 2.16.840.1.934884.3.579.2.1259 1999 Unknown [id number] 2.16.840.1.320301.3.579.2.1259 1999 Unknown [id number] 2.16.840.1.921021.3.579.2.1259 1999 Unknown [id number] 2.16.840.1.903451.3.579.2.1259 1999 Unknown [id number] 2.16.840.1.185292.3.579.2.1259 1999 Unknown [id number] 2.16.840.1.023998.3.579.2.1259 1959 Unknown [id number] 1959 Unknown [id number] 1959 Unknown [id number] Unknown Self Pay [id number] Unknown [id number] 2.16.840.1.098592.3.579.2.531 Social History Date Type Detail Facility Start: 03-09-2020 End: 03-10-2020 Tobacco smoking status NHIS Smoker (finding) [facility] Start: 2000 Sex Assigned At Female [facility] Start: 04-12-2014 Tobacco smoking status NHIS Never smoker [place] Start: 04-12-2014 End: 04-01-2023 Tobacco use and exposure Never used [place] Start: 04-12-2014 Alcohol intake 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 alcohol (finding) [place] Start: 2000 Sex Assigned At Not on file [place] Start: 07-17-2022 End: 04-01-2023 Tobacco smoking status Ex-smoker (finding) [facility] [place] Tobacco smoking status Smokeless tobacco user within last 30 days [facility] Start: 06-03-2023 Sex Assigned At Female [facility] Start: 04-01-2023 End: 06-03-2023 No alcohol use No alcohol use [facility] History of tobacco use Cigarette Smoker [facility] Start: 06-03-2023 Alcohol intake Ex-drinker (finding) [facility] Start: 10-25-2020 Alcohol Comment RARELY [facility] Start: 11-22-2022 [facility] NEGATED: Highlighted row Denies History of domestic violence Denies History of domestic violence [id number] [address] [place] Work Phone: Goals Date Patient Goal Desired Activity /State Functional Status Date Assessment Result Facility 07-17-2022 Functional Status N/A [facility] [place] Clinical Notes 04-27-2014 to 07-08-2023 Lyly Smith MD - 07/08/2023 1:00 PM EST Note Date & Type Note Facility 07-08-2023 History of Present illness Narrative Video Visit via Real-time Synchronous Audiovisual Provider Location: [facility]- MEDICINE AT [address] [phone] Patient Location: Patient Location Data Manager: None Video Visit Consent Statement: I [...] that there are some limitations compared to [id number] evaluations. We elected to proceed. REASON FOR [...] 2nd opinion at [facility] Anxiety/ depression, managed on citalopram 40 mg [...] hypokalemia Anxiety and depression Bipolar 2 disorder ([facility]) Chronic abdominal pain Endometriosis Intractable nausea and [...] 2nd opinion at [facility] COUNSELING We reviewed signs symptoms of labor [...] Serial Doppler studies for growth restriction at [facility] office, Doppler studies remain normal, repeat on 07/17/2023 Delivery scheduled at 37 weeks' gestation with primary OB at local hospital, primary due to male presentation of twin a, breech Patient is scheduled for repeat umbilical artery Doppler assessment in 2 weeks, no future clinic visits with [facility] Thank you for allowing me to participate in Shanon Louise care. If there are any questions, please do not hesitate to call me. Lyly Smith MD Maternal- Medicine [facility] [address] [place] [address] documented in this encounter [facility] 02-14-2023 Evaluation note Encounter Date Diagnosis Assessment [...] needed. Retrun visit here in three months. [facility] Other 01-20-2023 NoteChief Complaint consultation for epigastric [...] Reports colonoscopy completed several years ago at [facility] was normal. History of Present Illness 22 yo female with h/o bipolar disorder, anxiety, migraines, referred for intermittent epigastric and LUQ pain, burning, at times sharp/stabbing; occasional N/V; + boating; no food triggers, occurs celia without eating; no hematemesis or melena; no hematochezia, some constipation, improved with stool softeners; had normal EGD and colonoscopy at [facility] in 2016; abdominal operations significant for laparoscopy [...] 30 da (more content not included)...[facility]Result Comment: Electronically Signed By: RAPHAEL MACIAS, Mayito Matthews\Date and Time Signed: 07/20/22 14:58 [id number] Note OPERATIVE NOTE OPERATION DATE: 07/10/2021 PROCEDURE: Diagnostic laparoscopy with chromopertubation. PREOPERATIVE DIAGNOSIS: Pelvic pain. POSTOPERATIVE DIAGNOSIS: Pelvic pain, including small endometrial implant posterior cul-de-sac, as well as possible blunted tube on the patient's left side. ANESTHESIA: General. SURGEON: Cecil Johnson D.O. SOFTWARE APPLICATIONS DESIGNER: ISAURO Mccoy URINE OUTPUT: Yellow and clear. BLOOD LOSS: 5 mL. FINDINGS: Slightly blunted tube on the left side, endometriosis posterior cul-de-sac, otherwise normal appearing uterus, tubes and ovaries. Normal appearing appendix. Some adhesions of the bowel to the pelvic and abdominal side wall on the patient's right side. Normal appearing liver. No evidence of Vetw-Ornt-Dmcbgq syndrome. PROCEDURE: The patient was taken back [...] [facility]OP Note OPERATION DATE: 07/10/2022 PROCEDURE: Diagnostic laparoscopy with chromopertubation. PREOPERATIVE DIAGNOSIS: Pelvic pain, suspected endometriosis, fallopian tube disorder. POSTOPERATIVE DIAGNOSIS: Pelvic pain, suspected endometriosis, fallopian tube disorder, including mild endometriosis, bilateral patent fallopian tubes, small bowel adhesion to the pelvic side wall. ANESTHESIA: General. SURGEON: Cecil Johnson D.O. SOFTWARE APPLICATIONS DESIGNER: ISUARO Mccoy URINE OUTPUT: Yellow and clear. BLOOD LOSS: 5 mL. ADDENDUM: Please note that chromopertubation was performed after methylene blue was placed through the HUMI manipulator. Spillage of methylene blue could be seen from both tubes.The [facility] [id number] Instructions* Patient Instructions* Jennifer Lam - 04/27/2014 4:49 PM EDT [phone] - Patient mother would like to speak with a nurse concerning medications that her daughter is taking. [facility] N[facility] - Reported * the patient is seen at the request of Dr. Gonzales at [facility] for consultation regarding second opinion for placental hemorrhage; [facility] 08/15/2023 * FC MA [id number] [address] [place] Work Phone: chief complaint Narrative - Reported* the patient is seen at the request of Dr. Gonzales at [facility] for consultation regarding second opinion for placental hemorrhage; [facility] 08/15/2023 * FC MA [id number] [address] [place] Work Phone: evaluation + Plan note No data available for this section [facility] [place] Evaluation note* Diagnosis Dichorionic diamniotic twin in third trimester- Primary Poor growth affecting management of mother in third trimester, fetus 1 of multiple gestation [facility] Diagnosis 34 weeks gestation of - Primary Poor growth affecting management of mother in third trimester, fetus 1 of multiple gestation Dichorionic diamniotic twin in third trimester Anxiety during documented [facility] information available [facility] Work Phone: Hisfmuk general Narrative - Reported* Type Description Date Medical History Anxiety Medical History GERD (gastroesophageal reflux di sease) Medical History bipolar Surgical History LAPAROSCOPY-times 2 2013 Hospitalization History [facility] & vomiting - ultrasound & CT scans 12/2022 [facility] Other Hospital Discharge instructions No data available for this section [facility] InstructionsNot on filedocumented in this encounter [facility] SystemInstructionsNot on filedocumented in this encounter [facility] SystemProgress note No data available for this [...] MD [address] [place] [address] [facility] Maternal Med [address] [place] [address] Referral ID Status Reason Start Date Expiration Date V isits Requested Visits Authorized [id number] Pending Review 07/04/2023 07/03/2024 1 1 Additional Source Comments INFORMATION SOURCE (unrecogn ized section and content) DATE CREATED AUTHOR 02/04/2020 [facility] DATE CREATED AUTHOR AUTHOR'S ORGANIZ ATION 08/16/2022 [facility] DATE CREATED AUTHOR AUTHOR'S ORGANIZ ATION 12/07/2022 [facility] DATE CREATED AUTHOR AUTHOR'S ORGANIZ ATION 04/06/2023 [facility] DATE CREATED AUTHOR AUTHOR'S ORGANIZ ATION 07/20/2023 [facility] DATE CREATED AUTHOR AUTHOR'S ORGANIZ ATION 07/23/2023 [facility] DATE CREATED AUTHOR AUTHOR'S ORGANIZ ATION 07/29/2023 [facility] Source Comments (unrecognize d section and content) In the event this informatio n is protected by the Federal Confidentiality of Alcohol and Drug Abuse Patient Records regulations: The Federal rules restrict any use of the information to criminally investigate or prosecute any alcohol or drug abuse patient.[place] Patient Care team informatio n (unrecognized section and content) Batteryman Relationship Specialty Start Date End Date No Pcp, [place] [address] PCP - General Family Medicine 10/25/20 Batteryman Relationship Specialty Start Date End Date No Pcp, [place] [address] PCP - General Family Medicine 10/25/20 Team [...] BE BASED ON THE PRIMARY CLINICAL RECORDS. [employer] [facility]. provides no warranty or guarantee of the accuracy or completeness of information in this document.
--- NOTE | 2023-08-01 23:36 | ECG_ITS ---
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
--- NOTE | 2023-08-01 23:42 | ED_ITS ---
HPI - Female Genitourinary General Chief complaint: OB/Uterine Contractions Stated complaint: Post Surgical Complications, Bleeding Time Seen by Provider: 08/01/23 23:08 Source: patient and family Mode of arrival: walk-in Limitations: no limitations History of Present Illness HPI Narrative: Patient delivered by on 07/22/[address] Quintana at [facility]. She had been doing well post-op, with some passage of dark blood vaginally as expected. Tonight around 945pm she woke from a nap and her underwear was soaked with a large clot and bright red blood. She said that she felt dizzy. She cleaned up. Since then she has gone back to passing small amount of dark blood, as she had previously. No chest pain, shortness of breath, fever, syncope or near-syncope. She admitted to some increased low back pain and lower abdominal pain after discovering the blood. Related Data Home Medications Medication Instructions Recorded Confirmed citalopram 40 mg tablet 40 mg PO DAILY 01/21/23 07/23/23 hydroxyzine HCl 25 mg tablet 25 mg PO DAILY PRN nausea and 01/21/23 07/16/23 vomiting [id number] 1 mg 1 tab PO DAILY 01/21/23 07/16/23 tablet pantoprazole 40 mg tablet,delayed 40 mg PO DAILY 06/25/23 07/16/23 release polysaccharide iron complex 180 mg 180 mg PO DAILY 06/25/23 07/16/23 iron capsule (Pro Fe) Allergies Allergy/AdvReac Type Severity Reaction Status Date / Time No Known Drug Allergies Allergy Verified 08/01/23 23:12 [facility] Medical History (Updated 08/02/23 @ 00:14 by Miguel Angel Singh) Twin gestation in third trimester ?O30.003 - Twin , unspecified number of placenta and unspecified number of amniotic sacs, third trimester (ICD-10) Chronic abdominal pain ?R10.9 - Unspecified abdominal pain (ICD-10) ?G89.29 - Other chronic pain (ICD-10) Bipolar 2 disorder ?F31.81 - Bipolar II disorder (ICD-10) Surgical History (Updated 07/26/23 @ 13:13 by Marilee Badillo MD) Delivery by section Hx of dilation and curettage ?Z98.890 - Other specified postprocedural states (ICD-10) Family History Father Family history of COPD (chronic obstructive pulmonary disease) Grandmother Family history of COPD (chronic obstructive pulmonary disease) Family history of cancer Sister Family history of diabetes mellitus Social History Within the past year, how often did you have a drink containing alcohol: never Within the past year, how often did you have six or more drinks on one occasion: never Score interpretation: A score less than 3 is consistent with normal alcohol consumption. 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 Known occupational exposures/hazards: No Highest level of school completed/degree received: 11th grade Do you want help with school or training: No Are you now , , , , never or living with a partner: living with partner In a typical week, how many times do you talk on the telephone with family, friends, or neighbors: 3 or more times per week How often do you get together with friends or relatives: 3 or more times per week How often do you attend judaism or hoahaoism services: never Do you belong to any clubs or organizations such as judaism groups unions, fraternal or athletic groups, or school groups: no Total score: 2 Score interpretation: A score of greater than or equal to 2 indicates the lowest level of social isolation. Little interest or pleasure in doing things: nearly every day Feeling down, depressed, or hopeless: not at all Feel stressed/tense/nervous/anxious/difficulty sleeping: not at all Due to disability, difficulty making decisions: No Do you think of yourself as: straight/heterosexual Gender Identity: female Exam Narrative Exam Narrative: Nurses notes and vital signs reviewed and patient is not hypoxic. afebrile General: Well-appearing and in no apparent distress. Skin: Warm, dry, no pallor noted. Eye: Pupils are equal, round and EOMI. No scleral icterus. Ears, Nose, Mouth, and Throat: Oral mucosa is moist Cardiovascular: Regular Rate and Rhythm without murmur, gallop or rub. Respiratory: No accessory muscle use or respiratory distress. Lungs are clear to auscultation, no wheezing, rales or rhonchi Musculoskeletal: normal ROM, no lower extremity edema/swelling GI: Abdomen is soft, non-distended. Normal bowel sounds. No masses appreciated. Surgical incision is with steri-strips and without dehiscence, drainage or other abnormality. Mild suprapubic/lower abdominal tenderness to palpation. No rebound, guarding, or rigidity noted. Neurological: A&O x4. No cranial nerve dysfunction observed. No truncal ataxia. Moves all extremities. Sensation intact. Psychiatric: Cooperative and interactive. Normal mood and affect. Constitutional Vital Signs, click to edit/add: Last Vital Signs Temp 98.1 F 08/01/23 23:00 Pulse 85 08/01/23 23:00 Resp 18 08/01/23 23:00 BP 124/83 08/01/23 23:00 Pulse Ox 100 08/01/23 23:00 O2 Del Method Room Air 08/01/23 23:00 Course Vital Signs Vital signs: Vital Signs Temperature 98.1 F 08/01/23 23:00 Pulse Rate 85 08/01/23 23:00 Respiratory Rate 18 08/01/23 23:00 Blood Pressure 124/83 08/01/23 23:00 Pulse Oximetry 100 08/01/23 23:00 Oxygen Delivery Method Room Air 08/01/23 23:00 Temperature 98.1 F 08/01/23 23:00 Pulse Rate 85 08/01/23 23:00 Respiratory Rate 18 08/01/23 23:00 Blood Pressure 124/83 08/01/23 23:00 Pulse Oximetry 100 08/01/23 23:00 Oxygen Delivery Method Room Air 08/01/23 23:00 MDM - Female Genitourinary MDM Narrative Medical decision making narrative: EKG obtained and blood drawn and sent for testing. I spoke with Dr. Quintana and he recommended reviewing the patient's blood testing including hemoglobin and if normal discharging the patient home with outpatient follow-up in his office. He did not recommend ultrasound at this time. He informed that during he takes extra time to ensure that there are no retained products of conception and therefore he has very low suspicion in this instance of the patient having RPOC. This was explained to the patient. WBC 10.2, Hb 10.2. Metabolic panel with normal electrolytes and renal function. LFTs elevated - AST 139, ALT 114, AP 280. EKG with short DE but otherwise unremarkable. Results discussed with Dr Quintana who will see her in the office for follow up. Results discussed with patient and she was discharged home. Instructed to call Dr Quintana's office tomorrow. Lab Data Attestation: I reviewed the patient's lab results. Labs: Lab Results 08/01/23 Range/Units 23:25 WBC 10.2 (4.0-11.0) 10^3/uL RBC 3.97 L (4.20-5.40) 10^6/uL Hgb 10.1 L (12.0-16.0) g/dL Hct 33.3 L (36.0-48.0) % MCV 83.9 (81.0-99.0) fL MCH 25.4 L (26.7-34.0) pg MCHC 30.3 (29.9-35.2) g/dL RDW 17.2 H (11.0-15.0) % Plt Count 381 (150-450) 10^3/uL MPV 10.4 (9.5-13.5) fL Neut % (Auto) 71.3 (43.0-75.0) % Lymph % (Auto) 21.5 (20.5-60.0) % Ector % (Auto) 4.7 (1.7-12.0) % Eos % (Auto) 1.3 (0.9-7.0) % Baso % (Auto) 0.6 (0.2-2.0) % Neut # (Auto) 7.2 H (1.4-6.5) 10^3/uL Lymph # (Auto) 2.2 (1.2-3.8) 10^3/uL Ector # (Auto) 0.5 (0.3-0.8) 10^3/uL Eos # (Auto) 0.1 (0.0-0.7) 10^3/uL Baso # (Auto) 0.1 (0.0-0.1) 10^3/uL Abs Immat Gran (auto) 0.06 H (0.00-0.03) 10^3/uL Imm/Tot Granulo (auto) 0.6 H (0.0-0.5) % Sodium 141 (136-145) mmol/L Potassium 3.4 L (3.5-5.1) mmol/L Chloride 107 (98-107) mmol/L Carbon Dioxide 24.7 (21.0-32.0) mmol/L Anion Gap 12.7 BUN 13.0 (7.0-18.0) mg/dL Creatinine 0.69 (0.55-1.02) mg/dL Est GFR ( Amer) >60 (>=60) Est GFR (Non-Af Amer) >60 (>=60) BUN/Creatinine Ratio 18.8 Glucose 97 (74-106) mg/dL Calcium 9.0 (8.5-10.1) mg/dL Total Bilirubin 0.4 (0.2-1.0) mg/dL AST 139 H (15-37) U/L ALT 114 H (14-59) U/L Alkaline Phosphatase 280 H (46-116) U/L Total Protein 7.4 (6.4-8.2) g/dL Albumin 3.0 L (3.4-5.0) g/dL Globulin 4.4 g/dL Albumin/Globulin Ratio 0.7 ECG Data Attestation: I personally reviewed and interpreted this ECG as follows: Interpretation: EKG interpretation: Emergency Department physician interpretation. Normal sinus rhythm at 67bpm. Normal axis, Short DE interval - otherwise normal intervals and no ST segment elevation or depression. Discharge Plan Discharge Chief Complaint: OB/Uterine Contractions Clinical Impression: bleeding Patient Disposition: Home, Self-Care Time of Disposition Decision: 00:13 Prescriptions / Home Meds: No Action citalopram 40 mg tablet 40 mg PO DAILY Patient Comments: Pt own medication. hydroxyzine HCl 25 mg tablet 25 mg PO DAILY PRN (Reason: nausea and vomiting) hpksvspk-gfm-Pf-FA 1 mg tablet 1 tab PO DAILY pantoprazole 40 mg tablet,delayed release (DR/EC) 40 mg PO DAILY Pro Fe 180 mg iron capsule 180 mg PO DAILY Instructions: Bleeding (ED) Stand Alone Forms: Portal Instructions Referrals: Cecil Quintana DO [Physician] - As soon as possible
[2023-08-01 23:44] LABS: Basophils Absolute Auto 0.1 10^3/uL (0.0-0.1); Basophils Percent Auto 0.6 % (0.2-2.0); Eosinophils Absolute Auto 0.1 10^3/uL (0.0-0.7); Eosinophils Percent Auto 1.3 % (0.9-7.0); Hematocrit 33.3 % (36.0-48.0); Hemoglobin 10.1 g/dL (12.0-16.0); Immature Granulocytes Abs Auto 0.06 10^3/uL (0.00-0.03); Immature Granulocytes Pct Auto 0.6 % (0.0-0.5); Lymphocytes Absolute Auto 2.2 10^3/uL (1.2-3.8); Lymphocytes Percent Auto 21.5 % (20.5-60.0); Mean Corpuscular HGB Conc 30.3 g/dL (29.9-35.2); Mean Corpuscular Hemoglobin 25.4 pg (26.7-34.0); Mean Corpuscular Volume 83.9 fL (81.0-99.0); Mean Platelet Volume 10.4 fL (9.5-13.5); Monocytes Absolute Auto 0.5 10^3/uL (0.3-0.8); Monocytes Percent Auto 4.7 % (1.7-12.0); Neutrophils Absolute Auto 7.2 10^3/uL (1.4-6.5); Neutrophils Percent Auto 71.3 % (43.0-75.0); Platelet Count 381 10^3/uL (150-450); Red Blood Count 3.97 10^6/uL (4.20-5.40); Red Cell Distribution Width 17.2 % (11.0-15.0); White Blood Count 10.2 10^3/uL (4.0-11.0)
[2023-08-01 23:59] LABS: Alanine Aminotransferase 114 U/L (14-59); Albumin Globulin Ratio 0.7; Alkaline Phosphatase 280 U/L (46-116); Anion Gap 12.7; Aspartate Amino Transferase 139 U/L (15-37); BUN Creatinine Ratio 18.8; Bilirubin Total 0.4 mg/dL (0.2-1.0); Carbon Dioxide 24.7 mmol/L (21.0-32.0); Chloride 107 mmol/L (98-107); Estimated GFR (African America >60 (>=60); Estimated GFR (Non-African Ame >60 (>=60); Globulin 4.4 g/dL; Glucose 97 mg/dL (74-106); Potassium 3.4 mmol/L (3.5-5.1); Sodium 141 mmol/L (136-145); Total Protein 7.4 g/dL (6.4-8.2)
[2023-08-02 00:01] VITALS: BP 125/81
[2023-08-02 00:02] VITALS: O2SAT 100
[2023-08-02 00:06] VITALS: BP 128/80; PULSE 70; RESP 13; O2SAT 98
[2023-08-02 00:10] VITALS: PULSE 72; RESP 16; O2SAT 99
== END 2023-08-02 00:24 | disposition home or self-care (01) ==
PROVIDERS: Emergency Provider Emergency Medicine; PCP Family Medicine
DX: O72.1 Other immediate postpartum hemorrhage (principal); Z79.899 Other long term (current) drug therapy; F31.9 Bipolar disorder, unspecified; Z87.891 Personal history of nicotine dependence
CPT/HCPCS: 36415; 80053; 85025; 93005; 99284

== ENCOUNTER 2023-10-03 11:55 | Emergency (ER) | payer OTHER, SELFPAY ==
[2023-10-03 12:02] VITALS: BP 121/61; PULSE 89; TEMP 37.4; O2SAT 100; BMI 27.4
--- OUTSIDE RECORDS SUMMARY | 2023-10-03 12:19 | XMS_ITS | CCD ---
Author Organization [facility] Care Team Providers Care Oracle Database Manager Name Role Phone NO FAMILY, PHYSICIAN Primary Care Provider Unajesus Nela Naik Primary Care Provider [phone] SHAN CONDE Primary Care Physician AMAYA PROVIDER, SHAN Referring Unavailab le NILLMayito Attending Unavailable AMAYA PROVIDER, SHAN Referring Unavailab ana NILMayito Valdez Attending Unavailable AMAYA, DR SHAN Kong Primary Care Unavailable SAMREEN SCHWARZ Admitting Unavailable SAMREEN SCHWARZ Attending Unavailable SAMREEN SCHWARZ Consulting Unavailable MURALI STRANGE Consulting Unavailable AMAYA, DR SHAN Kong Primary Care Unavailable NILL ., DR WEINER Admitting Unavailable NILL ., DR WEINER Attending Unavailable AMAYA, DR SHAN Kong Primary Care Unavailable EUSEBIO ., MARYURI Admitting Unavailable EUSEBIO ., MARYURI Attending Unavailable DEE .LIDA Consulting Unavailable EUSEBIO ., MARYURI Consulting Unavailable RASTEMISTI ORTEZ Consulting Unavailable EUSEBIO ., MARYURI Admitting Unavailable EUSEBIO ., MARYURI Attending Unavailable JORGE, DR SHIRLEY Thapa Consulting Unavailable AMAYA, DR SHAN Kong Primary Care Unavailable EUSEBIO Erwin, MARYURI Consulting Unavailable HARMAN ADAMS Consulting Unavailable ANGIE, HARMAN Admitting Unavailable HARMAN ADAMS Attending Unavailable AMAYA, DR SHAN Kong Primary Care Unavailable ANA COTE Consulting Unavailable AMAYA, DR SHAN Kong Primary Care Unavailable BERTRAND, DR Courtney Thapa Consulting Unavailable BERTRAND, DR Courtney Thapa Admitting Unavailable BERTRAND, DR Courtney Thapa Attending Unavailable AMAYA, DR SHAN Kong Primary Care Unavailable BERTRAND, DR Courtney Thapa Admitting Unavailable BERTRAND, DR Courtney Thapa Attending Unavailable BERTRAND, DR Courtney Thapa Consulting Unavailable LILIAN ., DR GATICA Attending Unavailable LILIAN ., DR GATICA Admitting Unavailable DUNDAS, DR ANGIE Arce Consulting Unavailable AMAYA, DR SHAN Kong Primary Care Unavailable LILIAN ., DR GATICA Consulting Unavailable BENEDICT, DR WATSON Consulting Unavailable BENEDICT, DR WATSON Admitting Unavailable BENEDICT, DR WATSON Attending Unavailable NADERER, DR SHAN Kong Primary Care Unavailable ANGIE LO Consulting Unavailable LILIAN ., DR GATICA Attending Unavailable LILIAN ., DR GATICA Consulting Unavailable LILIAN ., DR GATICA Admitting Unavailable NADERER, DR SHAN Kong Primary Care Unavailable LILIAN ., DR GATICA Attending Unavailable LILIAN ., DR GATICA Consulting Unavailable LILIAN ., DR GATICA Admitting Unavailable NADERER, DR SHAN Kong Primary Care Unavailable LILIAN ., DR GATICA Attending Unavailable LILIAN ., DR GATICA Admitting Unavailable WEST, DR ANGIE Arce Consulting Unavailable NADERER, DR SHAN Kong Primary Care Unavailable LILIAN ., DR GATICA Consulting Unavailable NADERER, DR SHAN Kong Primary Care Unavailable DEE ., LIDA Admitting Unavailable DEE ., LIDA Attending Unavailable DEE ., LIDA Consulting Unavailable WANDER, JUANJOSE Admitting Unavailable WANDER, JUANJOSE Attending Unavailable WANDER, JUANJOSE Consulting Unavailable NADERER, DR SHAN Kong Primary Care Unavailable NADERER, DR SHAN Kong Primary Care Unavailable DEE ., LIDA Consulting Unavailable DEE ., LIDA Admitting Unavailable DEE ., LIDA Attending Unavailable NADERER, DR SHAN Kong Primary Care Unavailable SAMREEN SCHWARZ Consulting Unavailable SAMREEN SCHWARZ Admitting Unavailable SAMREEN SCHWARZ Attending Unavailable LILIAN ., DR GATICA Consulting Unavailable LILIAN ., DR GATICA Admitting Unavailable NADERER, DR SHAN Kong Primary Care Unavailable LILIAN ., DR GATICA Attending Unavailable LILIAN ., DR GATICA Consulting Unavailable LILIAN ., DR GATICA Admitting Unavailable NADERER, DR SHAN Kong Primary Care Unavailable LILIAN ., DR GATICA Attending Unavailable SHELLY SHABAZZ Consulting Unavailable ANAI CHANG Consulting Unavailable HARMAN ADAMS Admitting Unavailable HARMAN ADAMS Attending Unavailable HARMAN ADAMS Consulting Unavailable NADERER, DR SHAN Kong Primary Care Unavailable LILIAN ., DR GATICA Consulting Unavailable LILIAN ., DR GATICA Admkatja Unavailable LILIAN ., DR GATICA Attending Unavailable NADERER, DR SHAN Kong Primary Care Unavailable NADERER, DR SHAN Kong Referring Unavailable NADERER, DR SHAN Kong Admitting Unavailable DR SHAN CONDE Attending Unavailable JACKIE, DR ANGIE Arce Consulting Unavailable REQUEST, DR NONE LISTED Primary Care Unavaila caitie CONDE, DR SHAN Kong Consulting Unavailable Filippo Larson Unavailable Unknown, Referring Provider Unavailable Unav ailable Elsy SchwarzRamakrishna Attending Unavailable UNKNOWN, PCP Primary Care Unavailable No Pcp, No Pcp Primary Care Provider UnavailAMADEO Osborn Attending Unavailable LILIAN, CECIL R Referring Unavailable NO PCP, NO PCP Primary Care Unavailable LYLY SMITH Attending Unavailable LILIAN, CECIL R Referring Unavailable NO PCP, NO PCP Primary Care Unavailable LILIAN, CECIL R Referring Unavailable NO PCP, NO PCP Primary Care Unavailable Lilian, Cecil Attending Provider Shan Conde MD Primary Care Provider LILIAN, CECIL Attending Unavailable LILIAN, CECIL Attending Unavailable LILIAN, CECIL Attending Unavailable LIDA PRICE Attending Unavailable LILIAN, CECIL Attending Unavailable LIDA PRICE Attending Unavailable DEELIDA MUNIZ Attending Unavailable Lilian, Cecil Attending Unavailable Lilian, Cecil Admitting Unavailable Unavailable Unavailable Unavailable Allergies Allergy Classification Reported Allergen(s) Allergy Type Date of Onset Reaction(s) Facility (1 source) No Known Medication Allergies; Translations: [No Known Medication Allergies] Propensity to adverse reactions (disorder) [facility] Repository Medications Current Medications Medication Drug [...] aspirin 81 mg delayed release oral tablet (4 sources) Platelet Aggregation Inhibitor, Nonsteroidal Anti-inflammatory Drug Start: 04-01-2023 take 1 tablet by mouth in the morning aspirin 81 mg Take 1 tablet (81 mg total) by mouth in the morning. 60 tablet 4 04/01/2023 Active citalopram 40 mg oral tablet (9 sources) Serotonin Reuptake Inhibitor Start: 03-07-2023 take [...] DO Active take 0.5 tablet by m out every twenty-four hours CeleXA 40 MG 0.5 [...] Not-Taking hydrOXYzine hydrochloride 25 mg oral tablet (8 sources) Antihistamine Start: 07-11-2022 take 1 tablet by mouth four times daily as needed for anxiety hydrOXYzine hydrochloride 25 mg Tab 25 mg = 1 tab(s), Oral, QID, PRN as needed for anxiety, Refills(s) 0 Start Date: 07/11/22 Status: Ordered take 1 tablet by mouth once hydr OXYzine HCl (Atarax) 25 MG tablet Take 25 mg by mouth 1 (one) time. 0 Active Atarax 25 MG TAB S [...] pantoprazole 40 mg delayed release oral tablet (6 sources) Proton Pump Inhibitor Start: 07-17-19 take 1 tablet by mouth once daily Pantoprazole [address] Tab 40 mg = 1 tab(s), Oral, Daily, Refills(s) 0 Start Date: 07/17/22 Status: Ordered polysaccharide iron complex 391 mg oral capsule (2 sources) Start: 05-28-20 End: 05-27-20 take 1 capsule by mouth in the morning iron polysaccharides (ProFe) 391.3 (180 Fe) MG capsule Indications: Third trimester Take 1 capsule (391.3 mg) by mouth in the morning. 90 capsule 3 05/28/2023 05/27/2024 Active vit,amelia 74/iron/folic ( VITAMIN 1+1 ORAL) (2 sources) vit,amelia 74/iron/folic ( VITAMIN 1+1 ORAL) Take by mouth. 0 Active Vit-Fe Fumarate-FA ( Vitamins) 28-0.8 MG tablet (2 sources) Start: 12-15-19 End: 12-14-19 24 take 1 tablet by mouth in the morning Vit-Fe Fumarate-FA ( Vitamins) 28-0.8 MG tablet Indications: Missed menses Take 1 tablet by mouth in the morning. 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] Onset: 3 Episodic Other [...] source) Constipation; Translations: [Constipation, unspecified] Episodic Other upper respiratory disease (1 source) [...] object(s), not elsewhere classified, initial encounter; Translations: [[facility] OT SHRP OB NOT ELSW CLASS INI] Onset: 05-31-2022 Episodic Hypertension complicating ; childbirth and the puerperium (2 sources) Hypertension complicating ; Translations: [Unspecified maternal hypertension, third trimester] Onset: 07-22-2023 Resolved: 07-22-2023 08-01-2023 Chronic Immunizations and screening for infectious disease (1 [...] fallopian tube and broad ligament, unspecified; Translations: [OT NONINFL D/O OVARY TUBE AND BRD LIG] Onset: 08-14-2022 Episodic Other gastrointestinal disorders (1 source) Peritoneal adhesions (postprocedural) (postinfection); Translations: [PERITONEAL ADHES POSTPROC POSTINF] Onset: 08-14-2022 Episodic Other and delivery including normal (9 sources) Twin , dichorionic/diamnioti c, second trimester; Translations: [Dichorionic diamniotic twin ] Onset: 03-28-2023 Resolved: 08-01-2023 07-04-2023 Episodic Residual codes; unclassified (4 sources) Contact with and (suspected) exposure to potentially hazardous body fluids; Translations: [CONTACT AND EXPOS POTENTL HAZ BDY FLUID] Onset: 06-11-2022 Episodic Spondylosis; intervertebral disc disorders; other back problems (5 sources) Chronic neck pain; Translations: [Cervicalgia] Onset: 01-17-2022 07-11-2022 Episodic Results Test Name Value Interpretation Reference Range Facility [place] 07-22-2023 L Specimen: [id number] Received: 07/23/23 Status: SALVADOR Releonardo Num: [id number] Spec Type: Surgical Subm Dr: Cecil Johnson Tissues: A Placenta - 3rd Trimester (Greater than 28 weeks) (PLACENTA A) B Placenta - 3rd Trimester (Greater than 28 weeks) (PLACENTA B) Procedures: HE/7, Gross/Micro L5/2 Age/ Patient Sex Location Account Attending Physician Shanon Louise 23/ LABELL [id number] Cecil Johnson SPEC NUM: [id number] RECD: 07/23/23 STATUS: SALVADOR ORTIZ NUM: [id number] MORAIMA: 07/22/[address]: Cecil Johnson ENTERED: 07/23/[address] [facility] [address]: Tristan,Lab SPEC TYPE: Surgical DEPT: [...] placenta B, due to liquefaction of the [place] jelly - No other significant change except [...] [id number] Received: 07/23/23 Status: SALVADOR Ortiz Num: [id number] Spec Type: Surgical Subm Dr: Cecil Johnson Tissues: A Placenta - 3rd Trimester (Greater than 28 weeks) (PLACENTA A) B Placenta - 3rd Trimester (Greater than 28 weeks) (PLACENTA B) Procedures: RIVAS, Ira/Hieu L5/2 Patient: Shanon Louise [id number] (Continued) Specimen: [id number] Received: 07/23/23 (Continued) Gross Description (Continued) Signed (signatur e on file) Juan Shea MD 07/25/23 1826 Specimen: [id number] Received: 07/23/23 Status: SALVADOR Parkerleonardo Num: [id number] Spec Type: Surgical Subm Dr: Cecil Johnson Tissues: A Placenta - 3rd Trimester (Greater than 28 weeks) (PLACENTA A) B Placenta - 3rd Trimester (Greater than 28 weeks) (PLACENTA B) Procedures: Rigoberto, Gross/Micro L5/2 Patient: Shanon Louise [id number] (Continued) Specimen: [id number] Received: 07/23/23 (Continued) Gross Description (Continued) and is eccentrically inserted 2 cm from the edge of the placental disc. The maternal surface is multifocally disrupted and is questionably complete. Sectioning demonstrates soft red-brown unremarkable parenchyma averaging 2.5 cm in thickness. Area Manager sections are submitted in 3 cassettes as [...] unremarkable parenchyma 2.5 cm in average thickness. Area Manager sections are submitted in 4 cassettes as follows: B1 - Umbilical cord with cyst B2 - membranes and decidua basalis B3 - Central placenta, ful (more content not included)... Normal [facility] Blood Pressure Cuff Sizeon 0 03-28-2023 Fall risk assessment a) No falls within the last year [id number] [address] [place] Work Phone: Tobacco use status CPHS a) Yes M G-OBGYN-MAC [address] [place] Work Phone: Blood Pressure Cuff Size Adult NZ-[id number] [address] [place] Work Phone: Blood Pressure Cuff Size Yes [id number] [address] [place] Work Phone: No Panel Informationon 03-28 Normal CA-[id number] [address] [place] Work Phone: OB Completed scan [...] gestation - rr cfDNA - Referred from [place] because of subchorionic hematomas A targeted anatomic [...] previously been seen by Dr. Gonzales in [place]. Twins are doing well, their growth is [...] EFW (oz) 12 oz EFW by: Hadlock ([id number]) Extended Battalion Chief 5.8 mm CM 3.9 mm 16% Nicolaides [...] mm 61 (more content not included)... Normal [facility] AMYLASEon 10-28-2022 Amylase [Catalytic activity/Vol] 35 U/L Normal 25-115 [facility] Comment on above: Performed By: #### C CARLYN DE JESUS AMY #### [facility] [address] [place] [address] Dr. Joe Shea CBC AUTO DIFFon 10-28-2022 BASO # 0.1 103/ul Normal 0.0-0.1 [facility] Comment on above: Performed By: #### C CARLYN DE JESUS LIDA #### [facility] [address] [place] [address] Dr. Joe Shea Basophils/100 WBC (Bld) 0.4 % Normal 0.2-2.0 [facility] Comment on above: Performed By: #### C CARLYN DE JESUS LIDA #### [facility] [address] [place] [address] Dr. Joe Shea EO # 0.1 103/ul Normal 0.0-0.7 [facility] Comment on above: Performed By: #### C CARLYN DE JESUS, LIDA #### [facility] [address] [place] [address] Dr. Joe Shea Eosinophils/100 WBC (Bld) 0.8 % Critically low 0.9-7. 0 [facility] Comment on above: Performed By: #### C CARLYN DE JESUS, LIDA #### [facility] [address] [place] [address] Dr. Joe Shea Erythrocyte distribution width (RBC) [Ratio] 13.2 % Normal 11.0-15.0 [facility] Comment on above: Performed By: #### C NEAL LIPA, LIDA #### [facility] [address] [place] [address] Dr. Joe Shea Hematocrit (Bld) [Volume fraction] 37.2 % Normal 36.0-48.0 [facility] Comment on above: Performed By: #### C HUGO DE JESUSA, LIDA #### [facility] [address] [place] [address] Dr. Joe Shea Hemoglobin (Bld) [Mass/Vol] 12.0 g/dL Normal 12.0-16.0 [facility] Comment on above: Performed By: #### C HUGO DE JESUSA, LIDA #### [facility] [address] [place] [address] Dr. Joe Shea IG # 0.03 10e3/ul Normal 0.00-0.03 [facility] Comment on above: Performed By: #### C HUGO DE JESUSA, LIDA #### [facility] [address] [place] [address] Dr. Joe Shea IG % 0.2 % Normal 0.0-0.5 [facility] Comment on above: Performed By: #### C NEAL LIPA, LIDA #### [facility] [address] [place] [address] Dr. Joe Shea LYMPH # 1.9 103/ul Normal 1.2-3.8 [facility] Comment on above: Performed By: #### C NEAL LIPA, LIDA #### [facility] [address] [place] [address] Dr. Joe Shea Lymphocytes/100 WBC (Bld) 15.2 % Critically low 20.5-6 0.0 [facility] Comment on above: Performed By: #### C HUGO DE JESUSA, LIDA #### [facility] [address] [place] [address] Dr. Joe Shea MANUAL DIFF REQ NO Normal [facility] Comment on above: Performed By: #### C NEAL LIPA, LIDA #### [facility] [address] [place] [address] Dr. Joe Shea MCH (RBC) [Entitic mass] 28.4 pg Normal 26.7-34.0 [facility] Comment on above: Performed By: #### C NEAL LIPA, LIDA #### [facility] [address] [place] [address] Dr. Joe Shea MCHC (RBC) [Mass/Vol] 32.3 g/dL Normal 29.9-35.2 [facility] Comment on above: Performed By: #### C NEAL LIPA, LIDA #### [facility] [address] [place] [address] Dr. Joe Shea MCV (RBC) [Entitic vol] 87.9 fL Normal 81.0-99.0 [facility] Comment on above: Performed By: #### C NEAL LIPA, LIDA #### [facility] [address] [place] [address] Dr. Joe Shea MONO # 0.9 103/ul Critically high 0.3-0.8 [facility] Comment on above: Performed By: #### C NEAL LIPA, LIDA #### [facility] [address] [place] [address] Dr. Joe Shea Monocytes/100 WBC (Bld) 7.1 % Normal 1.7-12.0 [facility] Comment on above: Performed By: #### C NEAL LIPA, ILDA #### [facility] [address] [place] [address] Dr. Joe Shea NEUT # 9.5 103/ul Critically high 1.4-6.5 [facility] Comment on above: Performed By: #### C MP, LIPA, LIDA #### [facility] [address] [address] [address] Joe Shea Neutrophils/100 WBC (Bld) 76.3 % Critically high 43.0- 75.0 [facility] Comment on above: Performed By: #### C MP, LIPA, LIDA #### [facility] [address] [address] [address] Joe Shea Platelet mean volume (Bld) [Entitic vol] 10.8 fL Normal 9.5-13.5 [facility] Comment on above: Performed By: #### C MP, LIPA, LIDA #### [facility] [address] [address] [address] Joe Shea PLT 283 103/ul Normal 150-450 [facility] Comment on above: Performed By: #### C MP, LIPA, LIDA #### [facility] [address] [address] [address] Joe Shea RBC 4.23 106/ul Normal 4.20-5.40 [facility] Comment on above: Performed By: #### C MP, LIPA, LIDA #### [facility] [address] [address] [address] Joe Shea WBC 12.5 103/ul Critically high 4.0-11.0 [facility] Comment on above: Performed By: #### C MP, LIPA, LIDA #### [facility] [address] [place] [address] ABD/PELV W CONon [...] MISTI BREWER Date: 2022-10-28 18:31 Normal [facility] ER URINE PROFILEon 3 Bilirubin Ql (U) Negative Normal NEGATIVE [facility] Comment on above: Performed By: #### L BCL #### [facility] [address] [place] [address] Dr. Joe Shea Clarity (U) CLEAR Normal CLEAR [facility] Comment on above: Performed By: #### L BCLH #### [facility] [address] [place] [address] Dr. Joe Shea Color (U) LT. YELLOW Normal YELLOW [facility] Comment on above: Performed By: #### L BCLH #### [facility] [address] [place] [address] Dr. Joe Shea ERUAHD A micrscopic examination will be performed if indicated. Normal [facility] Comment on above: Performed By: #### L BCLH #### [facility] [address] [address] [address] Joe Shea Glucose Ql (U) Negative Normal NEGATIVE [facility] Comment on above: Performed By: #### L BCLH #### [facility] [address] [place] [address] Dr. Joe Shea Hemoglobin Ql (U) Negative Normal NEGATIVE [facility] Comment on above: Performed By: #### L BCLH #### [facility] [address] [place] [address] Dr. Joe Shea Ketones Ql (U) Negative Normal NEGATIVE [facility] Comment on above: Performed By: #### L BCLH #### [facility] [address] [place] [address] Dr. Joe Shea LEUKOCYTES TRACE Abnormal NEGATIVE [facility] Comment on above: Performed By: #### L BCLH #### [facility] [address] [place] [address] Dr. Joe Shea Nitrite Ql (U) Negative Normal NEGATIVE [facility] Comment on above: Performed By: #### L BCLH #### [facility] [address] [place] [address] Dr. Joe Shea pH (U) 8.0 [pH] Normal 5-9 [facility] Comment on above: Performed By: #### L BCLH #### [facility] [address] [place] [address] Dr. Joe Shea SPEC GRAVITY 1.015 Normal 1.005-<=1.02 5 [facility] Comment on above: Performed By: #### L BCL #### [facility] [address] [place] [address] Dr. Joe Shea UA PROTEIN Negative Normal NEGATIVE/ TRACE [facility] Comment on above: Performed By: #### L BCL #### [facility] [address] [place] [address] Dr. Joe Shea UR MICRO IND INDICATED Normal [facility] Comment on above: Performed By: #### L BCL #### [facility] [address] [place] [address] Dr. Joe Shea Urobilinogen Qn (U) 2.0 {Pascual'U}/dL Abnormal 0.2 - 1. 0 [facility] Comment on above: Performed By: #### L BCLH #### [facility] [address] [place] [address] Dr. Joe Shea LIPASEon 10-28-2022 Lipase [Catalytic activity/Vol] 93.0 U/L Normal 73.0-393.0 [facility] Comment on above: Performed By: #### C HUGO DE JESUSA, LIDA #### [facility] [address] [address] [address] Joe Shea URon 10-28-2022 , QUAL Negative Normal NEGATIVE [facility] Comment on above: Performed By: #### L BCL #### [facility] [address] [address] [address] Jeo Shea PROF 14(COMP METB)on 023 Albumin [Mass/Vol] 4.1 g/dL Normal 3.4-5.0 [facility] Comment on above: Performed By: #### C CARLYN DE JESUS, LIDA #### [facility] [address] [place] [address] Dr. Joe Shea Albumin/Globulin [Mass ratio] 1.2 {ratio} Normal [facility] Comment on above: Performed By: #### C NEAL LIPA, LIDA #### [facility] [address] [place] [address] Dr. Joe Shea ALP [Catalytic activity/Vol] 60 U/L Normal 46-116 [facility] Comment on above: Performed By: #### C HUGO DE JESUSA, LIDA #### [facility] [address] [place] [address] Dr. Joe Shea ALT [Catalytic activity/Vol] 22 U/L Normal 14-59 [facility] Comment on above: Performed By: #### C NEAL LIPA, LIDA #### [facility] [address] [place] [address] Dr. Joe Shea Anion gap [Moles/Vol] 10.2 mmol/L Normal [facility] Comment on above: Performed By: #### C NEAL LIPA, LIDA #### [facility] [address] [place] [address] Dr. Joe Shea AST [Catalytic activity/Vol] 14 U/L Critically low 15-37 [facility] Comment on above: Performed By: #### C NEAL LIPA, LIDA #### [facility] [address] [place] [address] Dr. Joe Shea Bilirubin [Mass/Vol] 0.5 mg/dL Normal 0.2-1.0 [facility] Comment on above: Performed By: #### C HUGO DE JESUSA, LIDA #### [facility] [address] [place] [address] Dr. Joe Shea Calcium [Mass/Vol] 8.9 mg/dL Normal 8.5-10.1 [facility] Comment on above: Performed By: #### C NEAL LIPA, LIDA #### [facility] [address] [place] [address] Dr. Joe Shea Chloride [Moles/Vol] 103 mmol/L Normal 98-107 [facility] Comment on above: Performed By: #### C NEAL LIPA, LIDA #### [facility] [address] [place] [address] Dr. Joe Shea CO2 [Moles/Vol] 28.1 mmol/L Normal 21.0-32.0 [facility] Comment on above: Performed By: #### C NEAL LIPA, LIDA #### [facility] [address] [place] [address] Dr. Joe Shea Creatinine [Mass/Vol] 0.77 mg/dL Normal 0.55-1.02 [facility] Comment on above: Performed By: #### C HUGO DE JESUSA, LIDA #### [facility] [facility] [address] [place] [address] Dr. Joe Shea EGFR-AF CAMEROONIAN >60 Normal >=60 [facility] Comment on above: Performed By: #### C MP LIPA, LIDA #### [facility] [address] [place] [address] Dr. Joe Shea EGFR-NON AF CAMEROONIAN >60 Normal >=60 [facility] Comment on above: Performed By: #### C MP LIPA, LIDA #### [facility] [address] [place] [address] Dr. Joe Shea Globulin (S) [Mass/Vol] 3.5 g/dL Normal T [facility] Comment on above: Performed By: #### C MP LIPA, LIDA #### [facility] [address] [address] [address] Joe Shea Glucose [Mass/Vol] 85 mg/dL Normal 74-106 [facility] Comment on above: Performed By: #### C MP, LIPA, LIDA #### [facility] [address] [address] [address] Joe Shea Potassium [Moles/Vol] 3.3 mmol/L Critically low 3.5-5.1 [facility] Comment on above: Performed By: #### C MP, LIPA, LIDA #### [facility] [address] [address] [address] Joe Shea Protein [Mass/Vol] 7.6 g/dL Normal 6.4-8.2 [facility] Comment on above: Performed By: #### C NEAL LIPA, LIDA #### [facility] [address] [place] [address] Dr. Joe Shea Sodium [Moles/Vol] 138 mmol/L Normal 136-145 [facility] Comment on above: Performed By: #### C NEAL LIPA, LIDA #### [facility] [address] [address] [address] Joe Shea Urea nitrogen [Mass/Vol] 6.0 mg/dL Critically low 7.0-18. 0 [facility] Comment on above: Performed By: #### C NEAL LIPA, LIDA #### [facility] [address] [address] [address] Jeo Shea Urea nitrogen/Creatinine [Mass ratio] 7.8 mg/mg Normal [facility] Comment on above: Performed By: #### C MP, LIPA, LIDA #### [facility] [address] [place] [address] Dr. Joe Shea URINE MICROSCOPIC ONLYon BACTERIA NONE SEEN Normal NONE SEEN [facility] Comment on above: Performed By: #### L BCLH #### [facility] [address] [address] [address] Joe Shea Bacteria identified Cx Nom (U) NOT INDICATED Normal [facility] Comment on above: Performed By: #### L BCLH #### [facility] [address] [place] [address] Dr. Joe Shea CAST NONE SEEN Normal NONE SEEN [facility] Comment on above: Performed By: #### L BCLH #### [facility] [address] [place] [address] Dr. Joe Shea Crystals LM Nom (Urine sed) NONE SEEN Normal NONE SEEN [facility] Comment on above: Performed By: #### L BCLH #### [facility] [address] [place] [address] Dr. Joe Shea Epithelial cells LM Ql (Urine sed) FEW Abnormal NONE SEEN /RARE [facility] Comment on above: Performed By: #### L BCLH #### [facility] [address] [place] [address] Dr. Joe Shea MUCOUS NONE SEEN Normal NONE SEEN [facility] Comment on above: Performed By: #### L BCLH #### [facility] [address] [place] [address] Dr. Joe Shea RBC NONE SEEN Abnormal 0-2 [facility] Comment on above: Performed By: #### L BCLH #### [facility] [address] [place] [address] Dr. Joe Shea WBC 0-2 Abnormal NONE SEEN [facility] Comment on above: Performed By: #### L BCLH #### [facility] [address] [place] [address] Dr. Joe Shea LACTOFERRIN FECAL QUANTon Lactoferrin, Fecal, Quant. <1.00 Normal 0.00-7.24 [facility] Comment on above: Result Comment: Re [...] (IBS). Performed By: #### D TRESA #### [facility] [address] [address] [address] Joe Shea CALPROTECTIN, FECALon 2022 Calprotectin, Fecal 31 ug/g Normal 0-120 [facility] Comment on above: Result Comment: Conc entration Interpretation Follow-Up <16 - 50 ug/g Normal None >50 -120 ug/g Borderline Re-evaluate in 4-6 weeks >120 ug/g Abnormal Repeat as clinically indicated Performed By: #### C MP, LIPA, LIDA #### [facility] [address] [address] [address] Joe Shea BOWEL DISORDERS EVALUATION R ULE-OUT CASCon 09-25-2022 Antigliadin 8 units Normal 0-19 [facility] Comment on above: Result Comment: Nega tive 0 - 19 Weak Positive 20 - 30 Moderate to Strong Positive >30 . Performed By: #### C BC #### [facility] [address] [place] [address] Dr. Joe Shea Atypical pANCA Negative Normal Negative [facility] Comment on above: Performed By: #### C BC #### [facility] [address] [place] [address] Dr. Joe Shea Note: Galt continues Normal [facility] Comment on above: Performed By: #### C BC #### [facility] [address] [place] [address] Dr. Joe Shea Note: Comment Normal [facility] Comment on above: Result Comment: Sugg estive of irritable bowel syndrome (IBS). Careful evaluation of the patient's history, physical examination, and application of Navjot III diagnostic criteria may help to rule in or rule out the diagnosis of IBS. Subsequent testing for Fecal Calprotectin ([id number]) may be recommended. If IBD is strongly suspected, subsequent testing with the Crohn's Disease Prognostic Profile ([id number]) that includes anti- glycan antibodies AMCA, ALCA, ACCA, and Zulema may aid in differential diagnosis. Performed By: #### C BC #### [facility] [address] [place] [address] Dr. Joe Shea Saccharomyces Cer. IgG <20.0 Normal 0.0-24.9 [facility] Comment on above: Result Comment: Nega tive <20.0 Equivocal 20.1 - 24.9 Positive >or= 25.0 Performed By: #### C BC #### [facility] [address] [place] [address] Dr. Joe Shea tTG/DGP SCR Negative Normal Negative [facility] Comment on above: Result Comment: Ef fective September 21, 2022 this profile will be made non-orderable due to non-availability of reagents for tTG/DGP Combo. No replacement number is available at this time. For further information, please contact your local [facility] Area Manager. Performed By: #### C BC #### [facility] [address] [place] [address] Dr. Joe Shea CBC AUTO DIFFon 09-19-2022 BASO # 0.1 103/ul Normal 0.0-0.1 [facility] Comment on above: Performed By: #### Althea GTZ #### [facility] [address] [place] [address] Dr. Joe Shea Basophils/100 WBC (Bld) 0.9 % Normal 0.2-2.0 [facility] Comment on above: Performed By: #### Alhtea GTZ #### [facility] [address] [place] [address] Dr. Joe Shea EO # 0.2 103/ul Normal 0.0-0.7 [facility] Comment on above: Performed By: #### Althea GTZ #### [facility] [address] [place] [address] Dr. Joe Shea Eosinophils/100 WBC (Bld) 2.4 % Normal 0.9-7.0 [facility] Comment on above: Performed By: #### Althea GTZ #### [facility] [address] [place] [address] Dr. Joe Shea Erythrocyte distribution width (RBC) [Ratio] 13.2 % Normal 11.0-15.0 [facility] Comment on above: Performed By: #### Althea GTZ #### [facility] [address] [place] [address] Dr. Joe Shea Hematocrit (Bld) [Volume fraction] 38.3 % Normal 36.0-48.0 [facility] Comment on above: Performed By: #### Althea GTZ #### [facility] [address] [place] [address] Dr. Joe Shea Hemoglobin (Bld) [Mass/Vol] 12.3 g/dL Normal 12.0-16.0 [facility] Comment on above: Performed By: #### Althea GTZ #### [facility] [address] [place] [address] Dr. Joe Shea IG # 0.02 10e3/ul Normal 0.00-0.03 [facility] Comment on above: Performed By: #### Althea GTZ #### [facility] [address] [place] [address] Dr. Joe Shea IG % 0.3 % Normal 0.0-0.5 [facility] Comment on above: Performed By: #### Althea GTZ #### [facility] [address] [place] [address] Dr. Joe Shea LYMPH # 1.7 103/ul Normal 1.2-3.8 [facility] Comment on above: Performed By: #### Althea GTZ #### [facility] [address] [place] [address] Dr. Joe Shea Lymphocytes/100 WBC (Bld) 24.6 % Normal 20.5-60.0 [facility] Comment on above: Performed By: #### Althea GTZ #### [facility] [address] [place] [address] Dr. Joe Shea MANUAL DIFF REQ NO Normal [facility] Comment on above: Performed By: #### Althea GTZ #### [facility] [address] [place] [address] Dr. Joe Shea MCH (RBC) [Entitic mass] 28.1 pg Normal 26.7-34.0 [facility] Comment on above: Performed By: #### Althea GTZ #### [facility] [address] [address] [address] Joe Shea MCHC (RBC) [Mass/Vol] 32.1 g/dL Normal 29.9-35.2 [facility] Comment on above: Performed By: #### Althea GTZ #### [facility] [address] [address] [address] Joe Shea MCV (RBC) [Entitic vol] 87.6 fL Normal 81.0-99.0 [facility] Comment on above: Performed By: #### Althea GTZ #### [facility] [address] [address] [address] Joe Shea MONO # 0.4 103/ul Normal 0.3-0.8 [facility] Comment on above: Performed By: #### Althea GTZ #### [facility] [address] [place] [address] Dr. Joe Shea Monocytes/100 WBC (Bld) 5.5 % Normal 1.7-12.0 [facility] Comment on above: Performed By: #### Althea GTZ #### [facility] [address] [place] [address] Dr. Joe Shea NEUT # 4.7 103/ul Normal 1.4-6.5 [facility] Comment on above: Performed By: #### Althea GTZ #### [facility] [address] [place] [address] Dr. Joe Shea Neutrophils/100 WBC (Bld) 66.3 % Normal 43.0-75.0 [facility] Comment on above: Performed By: #### Althea GTZ #### [facility] [address] [address] [address] Joe Shea Platelet mean volume (Bld) [Entitic vol] 11.4 fL Normal 9.5-13.5 [facility] Comment on above: Performed By: #### Althea GTZ #### [facility] [address] [address] [address] Joe hSea PLT 275 103/ul Normal 150-450 [facility] Comment on above: Performed By: #### D TRESA #### [facility] [address] [place] [address] Dr. Joe Shea RBC 4.37 106/ul Normal 4.20-5.40 [facility] Comment on above: Performed By: #### D TRESA #### [facility] [address] [place] [address] Dr. Joe Shea WBC 7.0 103/ul Normal 4.0-11.0 [facility] Comment on above: Performed By: #### D TRESA #### [facility] [address] [place] [address] Dr. Joe Shea PROF 14(COMP METB)on 023 Albumin [Mass/Vol] 4.4 g/dL Normal 3.4-5.0 [facility] Comment on above: Performed By: #### L DAIN #### [facility] [address] [place] [address] Dr. Joe Shea Albumin/Globulin [Mass ratio] 1.4 {ratio} Normal [facility] Comment on above: Performed By: #### L BCLShyla #### [facility] [address] [place] [address] Dr. Joe Shea ALP [Catalytic activity/Vol] 51 U/L Normal 46-116 [facility] Comment on above: Performed By: #### L BCLShyla #### [facility] [address] [place] [address] Dr. Joe Shea ALT [Catalytic activity/Vol] 20 U/L Normal 14-59 [facility] Comment on above: Performed By: #### L BCLH #### [facility] [address] [place] [address] Dr. Joe Shea Anion gap [Moles/Vol] 11.7 mmol/L Normal [facility] Comment on above: Performed By: #### L BCLH #### [facility] [address] [place] [address] Dr. Joe Shea AST [Catalytic activity/Vol] 17 U/L Normal 15-37 [facility] Comment on above: Performed By: #### L BCLH #### [facility] [address] [address] [address] Joe Shea Bilirubin [Mass/Vol] 0.4 mg/dL Normal 0.2-1.0 [facility] Comment on above: Performed By: #### L BCLH #### [facility] [address] [address] [address] Joe Shea Calcium [Mass/Vol] 9.3 mg/dL Normal 8.5-10.1 [facility] Comment on above: Performed By: #### L BCLH #### [facility] [address] [address] [address] Joe Shea Chloride [Moles/Vol] 104 mmol/L Normal 98-107 [facility] Comment on above: Performed By: #### L BCLH #### [facility] [address] [address] [address] Joe Shea CO2 [Moles/Vol] 28.5 mmol/L Normal 21.0-32.0 [facility] Comment on above: Performed By: #### L BCLH #### [facility] [address] [address] [address] Joe Shea Creatinine [Mass/Vol] 0.55 mg/dL Normal 0.55-1.02 [facility] Comment on above: Performed By: #### L BCLH #### [facility] [address] [address] [address] Joe Shea EGFR-AF CAMEROONIAN >60 Normal >=60 [facility] Comment on above: Performed By: #### L BCLH #### [facility] [address] [address] [address] Joe Shea EGFR-NON AF CAMEROONIAN >60 Normal >=60 [facility] Comment on above: Performed By: #### L BCLH #### [facility] [address] [address] [address] Joe Shea Globulin (S) [Mass/Vol] 3.1 g/dL Normal T [facility] Comment on above: Performed By: #### L BCLH #### [facility] [address] [address] [address] Joe Shea Glucose [Mass/Vol] 90 mg/dL Normal 74-106 [facility] Comment on above: Performed By: #### L BCL #### [facility] [address] [address] [address] Joe Shea Potassium [Moles/Vol] 4.2 mmol/L Normal 3.5-5.1 [facility] Comment on above: Performed By: #### L BCL #### [facility] [address] [address] [address] Joe Shea Protein [Mass/Vol] 7.5 g/dL Normal 6.4-8.2 [facility] Comment on above: Performed By: #### L BCL #### [facility] [address] [address] [address] Joe Shea Sodium [Moles/Vol] 140 mmol/L Normal 136-145 [facility] Comment on above: Performed By: #### L BCL #### [facility] [address] [address] [address] Joe Shea Urea nitrogen [Mass/Vol] 6.0 mg/dL Critically low 7.0-18. 0 [facility] Comment on above: Performed By: #### L BCL #### [facility] [address] [address] [address] Joe Shea Urea nitrogen/Creatinine [Mass ratio] 10.9 mg/mg Normal [facility] Comment on above: Performed By: #### L BCL #### [facility] [address] [address] [address] Joe Seha PROTIMEon 09-19-2022 INR Coag (PPP) [Relative time] 1.08 {INR} Normal [facility] Comment on above: Performed By: #### L BCLH #### [facility] [address] [address] [address] Joe Shea INR GUIDELINES SEE BELOW Normal [facility] Comment on above: Result Comment: CHICA RED INR: 2.0 - 3.0 CONDITIONS NOT LISTED BELOW 2.5 - 3.5 FOR PROSTHETIC HEART VALVE REPLACEMENT 2.5 - 3.5 RECURRENT THROMBOSIS Performed By: #### L BARRY #### [facility] [address] [place] [address] Dr. Joe Shea PT Coag (PPP) [Time] 11.4 s Normal 9.0-11.6 [facility] Comment on above: Performed By: #### L BARRY #### [facility] [address] [place] [address] Dr. Joe Shea TSHon 09-19-2022 TSH 0.957 uIU/mL Normal 0.358-3.740 [facility] Comment on above: Performed By: #### L BARRY #### [facility] [address] [place] [address] Dr. Joe Shea Pre-Certification Formon Pre-Certification Form [id number] 269#1.00CD:127 Normal [facility] Consent for Procedure/Surger yon 07-23-2022 Consent for Procedure/Surgery [id number] 7E#1.00CD:127 Normal [facility] Facesheeton 07-19-2022 Facesheet [id number] 71#1.00CD:127 Normal [facility] CBC AUTO DIFFon 07-06-2022 BASO # 0.1 103/ul Normal 0.0-0.1 [facility] Comment on above: Performed By: #### C CARLYN DE JESUS, LIDA #### [facility] [address] [place] [address] Dr. Joe Shea Basophils/100 WBC (Bld) 0.8 % Normal 0.2-2.0 [facility] Comment on above: Performed By: #### C CARLYN DE JESUS, LIDA #### [facility] [address] [place] [address] Dr. Joe Shea EO # 0.4 103/ul Normal 0.0-0.7 [facility] Comment on above: Performed By: #### C HUGO DE JESUSA, LIDA #### [facility] [address] [place] [address] Dr. Joe Shea Eosinophils/100 WBC (Bld) 4.2 % Normal 0.9-7.0 [facility] Comment on above: Performed By: #### C HUGO DE JESUSA, LIDA #### [facility] [address] [place] [address] Dr. Joe Shea Erythrocyte distribution width (RBC) [Ratio] 13.5 % Normal 11.0-15.0 [facility] Comment on above: Performed By: #### C CARLYN DE JESUS, LIDA #### [facility] [address] [place] [address] Dr. Joe Shea Hematocrit (Bld) [Volume fraction] 36.8 % Normal 36.0-48.0 [facility] Comment on above: Performed By: #### C HUGO DE JESUSA, LIDA #### [facility] [address] [place] [address] Dr. Joe Shea Hemoglobin (Bld) [Mass/Vol] 12.2 g/dL Normal 12.0-16.0 [facility] Comment on above: Performed By: #### C CARLYN DE JESUS LIDA #### [facility] [address] [place] [address] Dr. Joe Shea IG # 0.02 10e3/ul Normal 0.00-0.03 [facility] Comment on above: Performed By: #### C HUGO DE JESUSA, LIDA #### [facility] [address] [place] [address] Dr. Joe Shea IG % 0.2 % Normal 0.0-0.5 [facility] Comment on above: Performed By: #### C CARLYN DE JESUS, LIDA #### [facility] [address] [place] [address] Dr. Joe Shea LYMPH # 2.1 103/ul Normal 1.2-3.8 [facility] Comment on above: Performed By: #### C HUGO DE JESUSA, LIDA #### [facility] [address] [place], [place] [id number] Dr. Joe Shea Lymphocytes/100 WBC (Bld) 20.3 % Critically low 20.5-6 0.0 [facility] Comment on above: Performed By: #### C MP LIPA, LIDA #### [facility] [address] [place] [address] Dr. Joe Shea MANUAL DIFF REQ NO Normal [facility] Comment on above: Performed By: #### C MP LIPA, LIDA #### [facility] [address] [place] [address] Dr. Joe Shea MCH (RBC) [Entitic mass] 28.6 pg Normal 26.7-34.0 [facility] Comment on above: Performed By: #### C MP LIPA, LIDA #### [facility] [address] [place] [address] Dr. Joe Shea MCHC (RBC) [Mass/Vol] 33.2 g/dL Normal 29.9-35.2 [facility] Comment on above: Performed By: #### C MP, LIPA, LIDA #### [facility] [address] [place] [address] Dr. Joe Shea MCV (RBC) [Entitic vol] 86.4 fL Normal 81.0-99.0 [facility] Comment on above: Performed By: #### C NEAL LIPA, LIDA #### [facility] [address] [place] [address] Dr. Joe Shea MONO # 0.6 103/ul Normal 0.3-0.8 [facility] Comment on above: Performed By: #### C MP, LIPA, LIDA #### [facility] [address] [place] [address] Dr. Joe Shea Monocytes/100 WBC (Bld) 5.5 % Normal 1.7-12.0 [facility] Comment on above: Performed By: #### C MP, LIPA, LIDA #### [facility] [address] [place] [address] Dr. Joe Shea NEUT # 7.2 103/ul Critically high 1.4-6.5 [facility] Comment on above: Performed By: #### C NEAL LIPA, LIDA #### [facility] [address] [place] [address] Dr. Joe Shea Neutrophils/100 WBC (Bld) 69.0 % Normal 43.0-75.0 [facility] Comment on above: Performed By: #### C NEAL LIPA, LIDA #### [facility] [address] [place] [address] Dr. Joe Shea Platelet mean volume (Bld) [Entitic vol] 10.8 fL Normal 9.5-13.5 [facility] Comment on above: Performed By: #### C HUGO DE JESUSA, LIDA #### [facility] [address] [place] [address] Dr. Joe Shea PLT 316 103/ul Normal 150-450 [facility] Comment on above: Performed By: #### C NEAL LIPA, LIDA #### [facility] [address] [place] [address] Dr. Joe Shea RBC 4.26 106/ul Normal 4.20-5.40 [facility] Comment on above: Performed By: #### C NEAL LIPA, LIDA #### [facility] [address] [place] [address] Dr. Joe Shea WBC 10.4 103/ul Normal 4.0-11.0 [facility] Comment on above: Performed By: #### C NEAL LIPA, LIDA #### [facility] [address] [place] [address] Dr. Joe Shea PREG QUANT HCGon 07-06-2022 HCG QUANT <1 Normal [facility] Comment on above: Performed By: #### C NEAL LIPA, LIDA #### [facility] [address] [place] [address] Dr. Joe Shea HCG RANGE SEE BELOW Normal [facility] Comment on above: Result Comment: 5-50 0.2-1 WEEK 50-500 1-2 WEEKS 100-5,000 2-3 WEEKS 500-10,000 3-4 WEEKS 1,000-50,000 4-5 WEEKS 10,000-100,000 5-6 WEEKS 15,000-200,000 6-8 WEEKS 10,000-100,000 2-3 MONTHS Performed By: #### C CARLYN DE JESUS AMY #### [facility] [address] [place], [place] [address] Dr. Joe Shea HEPATITIS C ANTIBODYon 06-26 Hep C Virus Ab <0.1 Normal 0.0-0.9 [facility] Comment on above: Result Comment: Nega tive: [...] Hepatitis C Virus (HCV) RNA, Diagnosis, MEGAN ([id number]) and Hepatitis C Virus (HCV) Antibody with reflex to Quantitative Real-time PCR ([id number]). Performed By: #### L [facility] #### [facility] [address] [place], [place] [address] Dr. Joe Shea Covid-19 PCR (CVDTBH)on 05-31 SARS-CoV-2 (COVID-19) RNA MEGAN+probe Ql (Unsp spec) Not detected Normal NOT DETECTED [facility] Comment on above: Result Comment: This test is not yet approved or cleared by the [place] FDA. When there are no FDA-approved or cleared tests available, and other criteria are met, FDA can make tests available under an emergency access mechanism called an Emergency Use Authorization (EUA). The EUA for this test is supported by the [employer] of Health and Human Service's (HHS's) declaration [...] SARS-CoV-2. Performed By: #### C VDTBH #### [facility] [address] [address] [address] Joe Shea HEP B SURFACE ANTIGEN SCREEN on 06-12-2022 HBsAg Screen Negative Normal Negative [facility] Comment on above: Performed By: #### D HEAS #### [facility] [address] [address] [address] Joe Shea HIV 1 AND 2 WITH REFLEXon HIV Screen 4th Generation wRfx Non-Reactive Normal Non Reactive [facility] Comment on above: Result Comment: HIV Negative HIV-1/HIV-2 antibodies and HIV-1 p24 antigen were NOT detected. There is no laboratory evidence of HIV infection. Performed By: #### C CARLYN DE JESUS AMY #### [facility] [address] [place] [address] Dr. Joe Shea RPR QUANTon 06-12-2022 Rapid Plasma Reagin, Quant Non-Reactive Normal NonRea< 1:1 [facility] Comment on above: Result Comment: Plea se Note: This test does not meet current guidelines for screening and diagnosis of syphilis. This test is intended for following treatment response in patients being treated for syphilis infection. To screen for syphilis infection, a reflex cascade that includes both RPR and a treponema-specific assay should be utilized, such as Treponema pallidum (Syphilis) Screening [place]alt (311558) or Rapid Plasma Reagin (RPR) Test With Reflex to Quantitative RPR and Confirmatory Treponema pallidum Antibodies (815001). Performed By: #### C CARLYN DE JESUS AMY #### [facility] [address] [address] [address] Joe Shea Physician Referralon 022 Physician Referral [id number] Normal [facility] US PELVIS AND TRANSVAGon US PELVIS [...] ANGIE MEJIA Date: 2022-05-31 17:18 Normal [facility] AMYLASEon 05-23-2022 Amylase [Catalytic activity/Vol] 24 U/L Critically low 25-115 [facility] Comment on above: Performed By: #### C CARLYN DE JESUS AMY #### [facility] [address] [place] [address] Dr. Joe Shea CBC AUTO DIFFon 05-23-2022 Eosinophils/100 WBC (Bld) 1.5 % Normal 0.9-7.0 [facility] Comment on above: Performed By: #### L [facility] #### [facility] [address] [place] [address] Dr. Joe Shea Erythrocyte distribution width (RBC) [Ratio] 13.5 % Normal 11.0-15.0 [facility] Comment on above: Performed By: #### L BCL #### [facility] [address] [place] [address] Dr. Joe Shea Hematocrit (Bld) [Volume fraction] 33.0 % Critically low 36.0-48.0 [facility] Comment on above: Performed By: #### L BCL #### [facility] [address] [place] [address] Dr. Joe Shea Hemoglobin (Bld) [Mass/Vol] 10.7 g/dL Critically low 12.0-16.0 [facility] Comment on above: Performed By: #### L BCL #### [facility] [address] [address] [address] Joe Shea LYMPH # 1.2 103/ul Normal 1.2-3.8 [facility] Comment on above: Performed By: #### L BCLH #### [facility] [address] [address] [address] Joe Shea Lymphocytes/100 WBC (Bld) 20.2 % Critically low 20.5-6 0.0 [facility] Comment on above: Performed By: #### L BCLH #### [facility] [address] [address] [address] Joe Shea MCH (RBC) [Entitic mass] 28.0 pg Normal 26.7-34.0 [facility] Comment on above: Performed By: #### L BCLH #### [facility] [address] [place] [address] Dr. Joe Shea MCHC (RBC) [Mass/Vol] 32.4 g/dL Normal 29.9-35.2 [facility] Comment on above: Performed By: #### L BCLH #### [facility] [address] [place] [address] Dr. Joe Shea Monocytes/100 WBC (Bld) 7.9 % Normal 1.7-12.0 [facility] Comment on above: Performed By: #### L BCLH #### [facility] [address] [place] [address] Dr. Joe Shea Neutrophils/100 WBC (Bld) 69.9 % Normal 43.0-75.0 [facility] Comment on above: Performed By: #### L BCLH #### [facility] [address] [place] [address] Dr. Joe Shea Platelet mean volume (Bld) [Entitic vol] 10.6 fL Normal 9.5-13.5 [facility] Comment on above: Performed By: #### L BCLH #### [facility] [address] [place] [address] Dr. Joe Shea PLT 233 103/ul Normal 150-450 [facility] Comment on above: Performed By: #### L BCLH #### [facility] [address] [place] [address] Dr. Joe Shea RBC 3.82 106/ul Critically low 4.20-5.40 [facility] Comment on above: Performed By: #### L BCLH #### [facility] [address] [place] [address] Dr. Joe Shea WBC 6.1 103/ul Normal 4.0-11.0 [facility] Comment on above: Performed By: #### L BCLH #### [facility] [address] [place] [address] Dr. Joe Shea BASO # 0.0 103/ul Normal 0.0-0.1 [facility] Comment on above: Performed By: #### L BCLH #### [facility] [address] [place] [address] Dr. Joe Shea Performed By: #### C MP, LIPA, LIDA #### [facility] [address] [place] [address] Dr. Joe Shea Basophils/100 WBC (Bld) 0.3 % Normal 0.2-2.0 [facility] Comment on above: Performed By: #### L BCLH #### [facility] [address] [place] [address] Dr. Joe Shea Performed By: #### C MP LIPA, LIDA #### [facility] [address] [place] [address] Dr. Joe Shea EO # 0.1 103/ul Normal 0.0-0.7 [facility] Comment on above: Performed By: #### L BCLH #### [facility] [address] [place] [address] Dr. Joe Shea Performed By: #### C MP, LIPA, LIDA #### [facility] [address] [place] [address] Dr. Joe Shea Eosinophils/100 WBC (Bld) 1.9 % Normal 0.9-7.0 [facility] Comment on above: Performed By: #### C MP, LIPA, LIDA #### [facility] [address] [place] [address] Dr. Joe Shea Erythrocyte distribution width (RBC) [Ratio] 13.4 % Normal 11.0-15.0 [facility] Comment on above: Performed By: #### C MP, LIPA, LIDA #### [facility] [address] [place] [address] Dr. Joe Shea Hematocrit (Bld) [Volume fraction] 32.3 % Critically low 36.0-48.0 [facility] Comment on above: Performed By: #### C MP, LIPA, LIDA #### [facility] [address] [place] [address] Dr. Joe Shea Hemoglobin (Bld) [Mass/Vol] 10.6 g/dL Critically low 12.0-16.0 [facility] Comment on above: Performed By: #### C MP, LIPA, LIDA #### [facility] [address] [place] [address] Dr. Joe Shea IG # 0.01 10e3/ul Normal 0.00-0.03 [facility] Comment on above: Performed By: #### L BCLH #### [facility] [address] [place] [address] Dr. Joe Shea Performed By: #### C MP, LIPA, LIDA #### [facility] [address] [place] [address] Dr. Joe Shea IG % 0.2 % Normal 0.0-0.5 [facility] Comment on above: Performed By: #### L BCLH #### [facility] [address] [place] [address] Dr. Joe Shea Performed By: #### C MP, LIPA, LIDA #### [facility] [address] [place] [address] Dr. Joe Shea LYMPH # 1.0 103/ul Critically low 1.2-3.8 [facility] Comment on above: Performed By: #### C MP, LIPA, LIDA #### [facility] [address] [place] [address] Dr. Joe Shea Lymphocytes/100 WBC (Bld) 16.6 % Critically low 20.5-6 0.0 [facility] Comment on above: Performed By: #### C MP, LIPA, LIDA #### [facility] [address] [place] [address] Dr. Joe Shea MANUAL DIFF REQ NO Normal [facility] Comment on above: Performed By: #### L BCLH #### [facility] [address] [place] [address] Dr. Joe Shea Performed By: #### C MP, LIPA, LIDA #### [facility] [address] [place] [address] Dr. Joe Shea MCH (RBC) [Entitic mass] 28.3 pg Normal 26.7-34.0 [facility] Comment on above: Performed By: #### C MP, LIPA, LIDA #### [facility] [address] [place] [address] Dr. Joe Shea MCHC (RBC) [Mass/Vol] 32.8 g/dL Normal 29.9-35.2 [facility] Comment on above: Performed By: #### C MP, LIPA, LIDA #### [facility] [address] [place] [address] Dr. Joe Shea MCV (RBC) [Entitic vol] 86.4 fL Normal 81.0-99.0 [facility] Comment on above: Performed By: #### L BCLH #### [facility] [address] [place] [address] Dr. Joe Shea Performed By: #### C MP, LIPA, LIDA #### [facility] [address] [place] [address] Dr. Joe Shea MONO # 0.5 103/ul Normal 0.3-0.8 [facility] Comment on above: Performed By: #### L BCLH #### [facility] [address] [place] [address] Dr. Joe Shea Performed By: #### C MP, LIPA, LIDA #### [facility] [address] [place] [address] Dr. Joe Shea Monocytes/100 WBC (Bld) 9.1 % Normal 1.7-12.0 [facility] Comment on above: Performed By: #### C HUGO DE JESUSA, LIDA #### [facility] [address] [place] [address] Dr. Joe Shea NEUT # 4.3 103/ul Normal 1.4-6.5 [facility] Comment on above: Performed By: #### L BCLH #### [facility] [address] [place] [address] Dr. Joe Shea Performed By: #### C MP LIPA, LIDA #### [facility] [address] [place] [address] Dr. Joe Shea Neutrophils/100 WBC (Bld) 71.9 % Normal 43.0-75.0 [facility] Comment on above: Performed By: #### C NEAL LIPA, LIDA #### [facility] [address] [place] [address] Dr. Joe Shea Platelet mean volume (Bld) [Entitic vol] 11.0 fL Normal 9.5-13.5 [facility] Comment on above: Performed By: #### C NEAL LIPA, LIDA #### [facility] [address] [place] [address] Dr. Joe Shea PLT 224 103/ul Normal 150-450 [facility] Comment on above: Performed By: #### C NEAL LIPA, LIDA #### [facility] [address] [place] [address] Dr. Joe Shea RBC 3.74 106/ul Critically low 4.20-5.40 [facility] Comment on above: Performed By: #### C MP LIPA, LIDA #### [facility] [address] [place] [address] Dr. Joe Shea WBC 5.9 103/ul Normal 4.0-11.0 [facility] Comment on above: Performed By: #### C MP LIPA, LIDA #### [facility] [address] [place] [address] Dr. Joe Shea ER URINE PROFILEon 11-23-202 2 Bilirubin Ql (U) Negative Normal NEGATIVE [facility] Comment on above: Performed By: #### L BCLH #### [facility] [address] [place] [address] Dr. Joe Shea Clarity (U) CLEAR Normal CLEAR [facility] Comment on above: Performed By: #### L BCLH #### [facility] [address] [address] [address] Joe Shea Color (U) LT. YELLOW Normal YELLOW [facility] Comment on above: Performed By: #### L BCLH #### [facility] [address] [place] [address] Dr. Joe YUNG A micrscopic examination will be performed if indicated. Normal [facility] Comment on above: Performed By: #### L BCLH #### [facility] [address] [place] [address] Dr. Joe Shea Glucose Ql (U) Negative Normal NEGATIVE [facility] Comment on above: Performed By: #### L BCLH #### [facility] [address] [place] [address] Dr. Joe Shea Hemoglobin Ql (U) Negative Normal NEGATIVE [facility] Comment on above: Performed By: #### L BCLH #### [facility] [address] [place] [address] Dr. Joe Shea Ketones Ql (U) Negative Normal NEGATIVE [facility] Comment on above: Performed By: #### L BCLH #### [facility] [address] [place] [address] Dr. Joe Shea LEUKOCYTES Negative Normal NEGATIVE [facility] Comment on above: Performed By: #### L BCLH #### [facility] [address] [place] [address] Dr. Joe Shea Nitrite Ql (U) Negative Normal NEGATIVE [facility] Comment on above: Performed By: #### L BCLH #### [facility] [address] [place] [address] Dr. Joe Shea pH (U) 5.5 [pH] Normal 5-9 [facility] Comment on above: Performed By: #### L [facility] #### [facility] [address] [place] [address] Dr. Joe Shea SPEC GRAVITY 1.020 Normal 1.005-<=1.02 5 [facility] Comment on above: Performed By: #### L BCL #### [facility] [address] [place] [address] Dr. Joe Shea UA PROTEIN Negative Normal NEGATIVE/ TRACE [facility] Comment on above: Performed By: #### L BCL #### [facility] [address] [place] [address] Dr. Joe Shea UR MICRO IND NOT INDICATED Normal [facility] Comment on above: Performed By: #### L [facility] #### [facility] [address] [place] [address] Dr. Joe Shea Urobilinogen Qn (U) 0.2 {Pascual'U}/dL Normal 0.2 - 1. 0 [facility] Comment on above: Performed By: #### L [facility] #### [facility] [address] [place] [address] Dr. Joe Shea LIPASEon 05-23-2022 Lipase [Catalytic activity/Vol] 63.0 U/L Critically low 73.0-393.0 [facility] Comment on above: Performed By: #### C MP, LIPA, LIDA #### [facility] [address] [place] [address] Dr. Joe Shea URon 05-23-2022 , QUAL Negative Normal NEGATIVE [facility] Comment on above: Performed By: #### C BC #### [facility] [address] [place] [address] Dr. Joe Shea PROF 14(COMP METB)on 022 Albumin [Mass/Vol] 3.7 g/dL Normal 3.4-5.0 [facility] Comment on above: Performed By: #### C MP, LIPA, LIDA #### [facility] [address] [place] [address] Dr. Joe Shea Albumin/Globulin [Mass ratio] 1.4 {ratio} Normal [facility] Comment on above: Performed By: #### C HUGO DE JESUSA, LIDA #### [facility] [address] [place] [address] Dr. Joe Shea ALP [Catalytic activity/Vol] 44 U/L Critically low 46-116 [facility] Comment on above: Performed By: #### C NEAL LIPA, LIDA #### [facility] [address] [place] [address] Dr. Joe Shea ALT [Catalytic activity/Vol] 24 U/L Normal 14-59 [facility] Comment on above: Performed By: #### C HUGO DE JESUSA, LIDA #### [facility] [address] [place] [address] Dr. Joe Shea Anion gap [Moles/Vol] 9.1 mmol/L Normal [facility] Comment on above: Performed By: #### C NEAL LIPA, LIDA #### [facility] [address] [place] [address] Dr. Joe Shea AST [Catalytic activity/Vol] 18 U/L Normal 15-37 [facility] Comment on above: Performed By: #### C HUGO DE JESUSA, LIDA #### [facility] [address] [place] [address] Dr. Joe Shea Bilirubin [Mass/Vol] 0.2 mg/dL Normal 0.2-1.0 [facility] Comment on above: Performed By: #### C NEAL LIPA, LIDA #### [facility] [address] [place] [address] Dr. Joe Shea Calcium [Mass/Vol] 8.3 mg/dL Critically low 8.5-10.1 [facility] Comment on above: Performed By: #### C NEAL LIPA, LIDA #### [facility] [address] [place] [address] Dr. Joe Shea Chloride [Moles/Vol] 105 mmol/L Normal 98-107 [facility] Comment on above: Performed By: #### C NEAL LIPA, ILDA #### [facility] [address] [address] [address] Joe Shea CO2 [Moles/Vol] 29.7 mmol/L Normal 21.0-32.0 [facility] Comment on above: Performed By: #### C CARLYN DE JESUS, LIDA #### [facility] [address] [address] [address] Joe Shea Creatinine [Mass/Vol] 0.61 mg/dL Normal 0.55-1.02 [facility] Comment on above: Performed By: #### C CARLYN DE JESUS, LIDA #### [facility] [address] [address] [address] Joe Shea EGFR-AF CAMEROONIAN >60 Normal >=60 [facility] Comment on above: Performed By: #### C HUGO DE JESUSA, LIDA #### [facility] [address] [address] [address] Joe Shea EGFR-NON AF CAMEROONIAN >60 Normal >=60 [facility] Comment on above: Performed By: #### C CARLYN DE JESUS, LIDA #### [facility] [address] [address] [address] Joe Shea Globulin (S) [Mass/Vol] 2.6 g/dL Normal [facility] Comment on above: Performed By: #### C CARLYN DE JESUS, LIDA #### [facility] [address] [address] [address] Joe Shea Glucose [Mass/Vol] 92 mg/dL Normal 74-106 [facility] Comment on above: Performed By: #### C CARLYN DE JESUS, LIDA #### [facility] [address] [address] [address] Joe Shea Potassium [Moles/Vol] 3.8 mmol/L Normal 3.5-5.1 [facility] Comment on above: Performed By: #### C HUGO DE JESUSA, LIDA #### [facility] [address] [address] [address] Joe Shea Protein [Mass/Vol] 6.3 g/dL Critically low 6.4-8.2 [facility] Comment on above: Performed By: #### C MP, LIPA, LIDA #### [facility] [address] [address] [address] Joe Shea Sodium [Moles/Vol] 140 mmol/L Normal 136-145 [facility] Comment on above: Performed By: #### C MP, LIPA, LIDA #### [facility] [address] [address] [address] Joe Shea Urea nitrogen [Mass/Vol] 9.0 mg/dL Normal 7.0-18.0 [facility] Comment on above: Performed By: #### C MP, LIPA, LIDA #### [facility] [address] [address] [address] Joe Shea Urea nitrogen/Creatinine [Mass ratio] 14.8 mg/mg Normal [facility] Comment on above: Performed By: #### C MP, LIPA, LIDA #### [facility] [address] [address] [address] Joe Shea US SINGLE QUAD RT [...] SHIRLEY PATEL Date: 2022-05-23 08:29 Normal [facility] AMYLASEon 05-22-2022 Amylase [Catalytic activity/Vol] 50 U/L Normal 25-115 [facility] Comment on above: Performed By: #### A MY, CMP, LIPA #### [facility] [address] [place] [address] Dr. Joe Shea CBC AUTO DIFFon 05-22-2022 BASO # 0.1 103/ul Normal 0.0-0.1 [facility] Comment on above: Performed By: #### C MP, LIPA, LIDA #### [facility] [address] [place] [address] Dr. Joe Shea Basophils/100 WBC (Bld) 0.3 % Normal 0.2-2.0 [facility] Comment on above: Performed By: #### C MP, LIPA, LIDA #### [facility] [address] [place] [address] Dr. Joe Shea EO # 0.0 103/ul Normal 0.0-0.7 [facility] Comment on above: Performed By: #### C MP, LIPA, LIDA #### [facility] [address] [place] [address] Dr. Joe Shea Eosinophils/100 WBC (Bld) 0.2 % Critically low 0.9-7. 0 [facility] Comment on above: Performed By: #### C MP, LIPA, LIDA #### [facility] [address] [place] [address] Dr. Joe Shea Erythrocyte distribution width (RBC) [Ratio] 13.3 % Normal 11.0-15.0 [facility] Comment on above: Performed By: #### C MP, LIPA, LIDA #### [facility] [address] [place] [address] Dr. Joe Shea Hematocrit (Bld) [Volume fraction] 39.0 % Normal 36.0-48.0 [facility] Comment on above: Performed By: #### C MP, LIPA, LIDA #### [facility] [address] [place] [address] Dr. Joe Shea Hemoglobin (Bld) [Mass/Vol] 12.7 g/dL Normal 12.0-16.0 [facility] Comment on above: Performed By: #### C MP, LIPA, LIDA #### [facility] [address] [place] [address] Dr. Joe Shea IG # 0.05 10e3/ul Critically high 0.00-0.03 [facility] Comment on above: Performed By: #### C CARLYN DE JESUS, LIDA #### [facility] [address] [place] [address] Dr. Joe Shea IG % 0.3 % Normal 0.0-0.5 [facility] Comment on above: Performed By: #### C CARLYN DE JESUS, LIDA #### [facility] [address] [place] [address] Dr. Joe Shea LYMPH # 0.8 103/ul Critically low 1.2-3.8 [facility] Comment on above: Performed By: #### C CARLYN DE JESUS, LIDA #### [facility] [address] [place] [address] Dr. Joe Shea Lymphocytes/100 WBC (Bld) 4.4 % Critically low 20.5-6 0.0 [facility] Comment on above: Performed By: #### C CARLYN DE JESUS, LIDA #### [facility] [address] [place] [address] Dr. Joe Shea MANUAL DIFF REQ NO Normal [facility] Comment on above: Performed By: #### C CARLYN DE JESUS, LIDA #### [facility] [address] [place] [address] Dr. Joe Shea MCH (RBC) [Entitic mass] 28.1 pg Normal 26.7-34.0 [facility] Comment on above: Performed By: #### C CARLYN DE JESUS, LIDA #### [facility] [address] [place] [address] Dr. Joe Shea MCHC (RBC) [Mass/Vol] 32.6 g/dL Normal 29.9-35.2 [facility] Comment on above: Performed By: #### C CARLYN DE JESUS, LIDA #### [facility] [address] [place] [address] Dr. Joe Shea MCV (RBC) [Entitic vol] 86.3 fL Normal 81.0-99.0 [facility] Comment on above: Performed By: #### C MP LIPA, LIDA #### [facility] [facility] [address] [place] [address] Dr. Joe Shea MONO # 0.4 103/ul Normal 0.3-0.8 [facility] Comment on above: Performed By: #### C MP LIPA, LIDA #### [facility] [address] [place] [address] Dr. Joe Shea Monocytes/100 WBC (Bld) 2.2 % Normal 1.7-12.0 [facility] Comment on above: Performed By: #### C MP LIPA, LIDA #### [facility] [address] [place] [address] Dr. Joe Shea NEUT # 16.7 103/ul Critically high 1.4-6.5 [facility] Comment on above: Performed By: #### C MP LIPA, LIDA #### [facility] [address] [place] [address] Dr. Joe Shea Neutrophils/100 WBC (Bld) 92.6 % Critically high 43.0- 75.0 [facility] Comment on above: Performed By: #### C NEAL LIPA, LIDA #### [facility] [address] [place] [address] Dr. Joe Shea Platelet mean volume (Bld) [Entitic vol] 11.0 fL Normal 9.5-13.5 [facility] Comment on above: Performed By: #### C NEAL LIPA, LIDA #### [facility] [address] [place] [address] Dr. Joe Shea PLT 323 103/ul Normal 150-450 [facility] Comment on above: Performed By: #### C MP LIPA, LIDA #### [facility] [address] [place] [address] Dr. Joe Shea RBC 4.52 106/ul Normal 4.20-5.40 [facility] Comment on above: Performed By: #### C MP LIPA, LIDA #### [facility] [address] [place] [address] Dr. Joe Shea WBC 18.0 103/ul Critically high 4.0-11.0 [facility] Comment on above: Performed By: #### C CARLYN DE JESUS AMY #### [facility] [address] [address] [address] Joe MOORE URINE PROFILEon 2 Bilirubin Ql (U) Negative Normal NEGATIVE [facility] Comment on above: Performed By: #### Althea DURÁNUL #### [facility] [address] [address] [address] Joe Shea Clarity (U) CLEAR Normal CLEAR [facility] Comment on above: Performed By: #### Althea GARCIAASUL #### [facility] [address] [place] [address] Dr. Joe Shea Color (U) YELLOW Normal YELLOW [facility] Comment on above: Performed By: #### Althea DURÁNUL #### [facility] [address] [place] [address] Dr. Joe YUNG A micrscopic examination will be performed if indicated. Normal [facility] Comment on above: Performed By: #### Althea DURÁNUL #### [facility] [address] [address] [address] Joe Shea Glucose Ql (U) Negative Normal NEGATIVE [facility] Comment on above: Performed By: #### Althea DURÁNUL #### [facility] [address] [place] [address] Dr. Joe Shea Hemoglobin Ql (U) Negative Normal NEGATIVE [facility] Comment on above: Performed By: #### Althea DURÁNUL #### [facility] [address] [address] [address] Joe Shea Ketones Ql (U) 15 mg/dl Abnormal NEGATIVE [facility] Comment on above: Performed By: #### Althea DURÁNUL #### [facility] [address] [place] [address] Dr. Joe Shea LEUKOCYTES Negative Normal NEGATIVE [facility] Comment on above: Performed By: #### Althea DURÁNUL #### [facility] [address] [place] [address] Dr. Joe Shea Nitrite Ql (U) Negative Normal NEGATIVE [facility] Comment on above: Performed By: #### Althea GTZ #### [facility] [address] [place] [address] Dr. Joe Shea pH (U) 5.5 [pH] Normal 5-9 [facility] Comment on above: Performed By: #### Althea GTZ #### [facility] [address] [place] [address] Dr. Joe Shea SPEC GRAVITY >=1.030 Abnormal 1.005-<=1.[address] [place] [address] Comment on above: Performed By: #### Althea GTZ #### [facility] [address] [place] [address] Dr. Joe Shea UA PROTEIN Negative Normal NEGATIVE/ TRACE [facility] Comment on above: Performed By: #### Althea GTZ #### [facility] [address] [place] [address] Dr. Joe Shea UR MICRO IND NOT INDICATED Normal [facility] Comment on above: Performed By: #### Althea GTZ #### [facility] [address] [place] [address] Dr. Joe Shea Urobilinogen Qn (U) 1.0 {Pascual'U}/dL Normal 0.2 - 1. 0 [facility] Comment on above: Performed By: #### Althea GTZ #### [facility] [address] [place] [address] Dr. Joe Shea LACTATE/LACTIC ACIDon 2021 Lactate [Moles/Vol] 1.0 mmol/L Normal 0.4-1.9 [facility] Comment on above: Performed By: #### C BC #### [facility] [address] [place] [address] Dr. Joe Shea LIPASEon 05-22-2022 Lipase [Catalytic activity/Vol] 205.0 U/L Normal 73.0-393.0 [facility] Comment on above: Performed By: #### A MY, CMP, LIPA #### [facility] [address] [place] [address] Dr. Joe Shea MRI BRAIN WO CONon [...] ANGIE LO Date: 2022-05-22 16:17 Normal [facility] URon 05-22-2022 , QUAL Negative Normal NEGATIVE [facility] Comment on above: Performed By: #### D TRESA #### [facility] [address] [place] [address] Dr. Joe Shea PROF 14(COMP METB)on 022 Albumin [Mass/Vol] 4.5 g/dL Normal 3.4-5.0 [facility] Comment on above: Performed By: #### Althea GTZ #### [facility] [address] [place] [address] Dr. Joe Shea Albumin/Globulin [Mass ratio] 1.4 {ratio} Normal [facility] Comment on above: Performed By: #### Althea GTZ #### [facility] [address] [address] [address] Joe Shea ALP [Catalytic activity/Vol] 60 U/L Normal 46-116 [facility] Comment on above: Performed By: #### D LUIS ARMANDOUL #### [facility] [address] [address] [address] Joe Shea ALT [Catalytic activity/Vol] 17 U/L Normal 14-59 [facility] Comment on above: Performed By: #### D HEASUL #### [facility] [address] [address] [address] Joe Shea Anion gap [Moles/Vol] 10.9 mmol/L Normal [facility] Comment on above: Performed By: #### Althea GTZ #### [facility] [address] [address] [address] Joe Shea AST [Catalytic activity/Vol] 19 U/L Normal 15-37 [facility] Comment on above: Performed By: #### Althea GTZ #### [facility] [address] [address] [address] Joe Shea Bilirubin [Mass/Vol] 0.8 mg/dL Normal 0.2-1.0 [facility] Comment on above: Performed By: #### Althea GTZ #### [facility] [address] [place] [address] Dr. Joe Shea Calcium [Mass/Vol] 9.0 mg/dL Normal 8.5-10.1 [facility] Comment on above: Performed By: #### Althea GTZ #### [facility] [address] [address] [address] Joe Shea Chloride [Moles/Vol] 102 mmol/L Normal 98-107 [facility] Comment on above: Performed By: #### Althea GTZ #### [facility] [address] [address] [address] Joe Shea CO2 [Moles/Vol] 28.7 mmol/L Normal 21.0-32.0 [facility] Comment on above: Performed By: #### Althea GTZ #### [facility] [address] [address] [address] Joe Shea Creatinine [Mass/Vol] 0.73 mg/dL Normal 0.55-1.02 [facility] Comment on above: Performed By: #### Althea GTZ #### [facility] [address] [address] [address] Joe Shea EGFR-AF CAMEROONIAN >60 Normal >=[address] [facility] Comment on above: Performed By: #### Althea GTZ #### [facility] [address] [address] [address] Joe Shea EGFR-NON AF CAMEROONIAN >60 Normal >=60 [facility] Comment on above: Performed By: #### Althea GTZ #### [facility] [address] [address] [address] Joe Shea Globulin (S) [Mass/Vol] 3.2 g/dL Normal [facility] Comment on above: Performed By: #### Althea GTZ #### [facility] [address] [address] [address] Joe Shea Glucose [Mass/Vol] 113 mg/dL Critically high 74-106 [facility] Comment on above: Performed By: #### Althea GTZ #### [facility] [address] [address] [address] Joe Shea Potassium [Moles/Vol] 3.6 mmol/L Normal 3.5-5.1 [facility] Comment on above: Performed By: #### Althea GTZ #### [facility] [address] [address] [address] Joe Shea Protein [Mass/Vol] 7.7 g/dL Normal 6.4-8.2 [facility] Comment on above: Performed By: #### Althea GTZ #### [facility] [address] [address] [address] Joe Shea Sodium [Moles/Vol] 138 mmol/L Normal 136-145 [facility] Comment on above: Performed By: #### Althea GTZ #### [facility] [address] [address] [address] Joe Shea Urea nitrogen [Mass/Vol] 9.0 mg/dL Normal 7.0-18.0 [facility] Comment on above: Performed By: #### Althea GTZ #### [facility] [address] [address] [address] Joe Shea Urea nitrogen/Creatinine [Mass ratio] 12.3 mg/mg Normal [facility] Comment on above: Performed By: #### Althea GTZ #### [facility] [address] [place] [address] Dr. Joe Shea XR CHEST 2 Von [...] by: ANA COTE Date: 2022-05-22 02:56 Normal [facility] PROGESTERONEon 05-08-2022 Progesterone 18.1 ng/mL Normal [facility] Comment on above: Result Comment: Foll icular phase 0.1 - 0.9 Luteal phase 1.8 - 23.9 Ovulation phase 0.1 - 12.0 First trimester 11.0 - 44.3 Second trimester 25.4 - 83.3 Third trimester 58.7 - 214.0 Postmenopausal 0.0 - 0.1 Performed By: #### C BC #### [facility] [address] [place] [address] [address] [address] Joe Shea DHEA SERUMon 04-12-2022 Dehydroepiandrosterone (DHEA) 577 ng/dL Normal 31-701 [facility] Comment on above: Result Comment: Age [...] 89 Performed By: #### C BC #### [facility] [address] [place] [address] [id number] [address] Joe Shea PROGESTERONEon 04-10-2022 Progesterone 16.0 ng/mL Normal [facility] Comment on above: Result Comment: Foll icular phase 0.1 - 0.9 Luteal phase 1.8 - 23.9 Ovulation phase 0.1 - 12.0 First trimester 11.0 - 44.3 Second trimester 25.4 - 83.3 Third trimester 58.7 - 214.0 Postmenopausal 0.0 - 0.1 Performed By: #### Althea GTZ #### [facility] [address] [place] [address] Dr. Joe Shea DHEA-SULFATEon 04-06-2022 DHEA-Sulfate 241.0 ug/dL Normal 110.0-431.7 [facility] Comment on above: Performed By: #### Althea GTZ #### [facility] [address] [place] [address] Dr. Joe Shea FSHon 04-06-2022 FSH 6.6 mIU/mL Normal [facility] Comment on above: Result Comment: Adul t Female: Follicular phase 3.5 - 12.5 Ovulation phase 4.7 - 21.5 Luteal phase 1.7 - 7.7 Postmenopausal 25.8 - 134.8 Performed By: #### Althea GTZ #### [facility] [address] [place] [address] Dr. Joe Shea LUTEINIZING HORMONE (LH)on 1 LH 19.8 mIU/mL Normal [facility] Comment on above: Result Comment: Adul t Female: Follicular phase 2.4 - 12.6 Ovulation phase 14.0 - 95.6 Luteal phase 1.0 - 11.4 Postmenopausal 7.7 - 58.5 Performed By: #### L BCL #### [facility] [address] [place] [address] Dr. Joe Shea CBC AUTO DIFFon 04-05-2022 BASO # 0.1 103/ul Normal 0.0-0.1 [facility] Comment on above: Performed By: #### C BC #### [facility] [address] [place] [address] Dr. Joe Shea Basophils/100 WBC (Bld) 0.9 % Normal 0.2-2.0 [facility] Comment on above: Performed By: #### C BC #### [facility] [address] [place] [address] Dr. Joe Shea EO # 0.2 103/ul Normal 0.0-0.7 [facility] Comment on above: Performed By: #### C BC #### [facility] [address] [place] [address] Dr. Joe Shea Eosinophils/100 WBC (Bld) 2.6 % Normal 0.9-7.0 [facility] Comment on above: Performed By: #### C BC #### [facility] [address] [place] [address] Dr. Joe Shea Erythrocyte distribution width (RBC) [Ratio] 13.1 % Normal 11.0-15.0 [facility] Comment on above: Performed By: #### C BC #### [facility] [address] [place] [address] Dr. Joe Shea Hematocrit (Bld) [Volume fraction] 38.2 % Normal 36.0-48.0 [facility] Comment on above: Performed By: #### C BC #### [facility] [address] [place] [address] Dr. Joe Shea Hemoglobin (Bld) [Mass/Vol] 12.3 g/dL Normal 12.0-16.0 [facility] Comment on above: Performed By: #### C BC #### [facility] [address] [place] [address] Dr. Joe Shea IG # 0.01 10e3/ul Normal 0.00-0.03 [facility] Comment on above: Performed By: #### C BC #### [facility] [address] [place] [address] Dr. Joe Shea IG % 0.2 % Normal 0.0-0.5 [facility] Comment on above: Performed By: #### C BC #### [facility] [address] [place] [address] Dr. Joe Shea LYMPH # 1.7 103/ul Normal 1.2-3.8 [facility] Comment on above: Performed By: #### C BC #### [facility] [address] [place] [address] Dr. Joe Shea Lymphocytes/100 WBC (Bld) 29.2 % Normal 20.5-60.0 [facility] Comment on above: Performed By: #### C BC #### [facility] [address] [place] [address] Dr. Joe Shea MANUAL DIFF REQ NO Normal [facility] Comment on above: Performed By: #### C BC #### [facility] [address] [place] [address] Dr. Joe Shea MCH (RBC) [Entitic mass] 28.4 pg Normal 26.7-34.0 [facility] Comment on above: Performed By: #### C BC #### [facility] [address] [place] [address] Dr. Joe Shea MCHC (RBC) [Mass/Vol] 32.2 g/dL Normal 29.9-35.2 [facility] Comment on above: Performed By: #### C BC #### [facility] [address] [place] [address] Dr. Joe Shea MCV (RBC) [Entitic vol] 88.2 fL Normal 81.0-99.0 [facility] Comment on above: Performed By: #### C BC #### [facility] [address] [place] [address] Dr. Joe Shea MONO # 0.5 103/ul Normal 0.3-0.8 [facility] Comment on above: Performed By: #### C BC #### [facility] [address] [place] [address] Dr. Joe Shea Monocytes/100 WBC (Bld) 8.2 % Normal 1.7-12.0 [facility] Comment on above: Performed By: #### C BC #### [facility] [address] [place] [address] Dr. Joe Shea NEUT # 3.4 103/ul Normal 1.4-6.5 [facility] Comment on above: Performed By: #### C BC #### [facility] [address] [place] [address] Dr. Joe Shea Neutrophils/100 WBC (Bld) 58.9 % Normal 43.0-75.0 [facility] Comment on above: Performed By: #### C BC #### [facility] [address] [place] [address] Dr. Joe Shea Platelet mean volume (Bld) [Entitic vol] 11.5 fL Normal 9.5-13.5 [facility] Comment on above: Performed By: #### C BC #### [facility] [address] [place] [address] Dr. Joe Shea PLT 233 103/ul Normal 150-450 [facility] Comment on above: Performed By: #### C BC #### [facility] [address] [place] [address] Dr. Joe Shea RBC 4.33 106/ul Normal 4.20-5.40 [facility] Comment on above: Performed By: #### C BC #### [facility] [address] [place] [address] Dr. Joe Shea WBC 5.8 103/ul Normal 4.0-11.0 [facility] Comment on above: Performed By: #### C BC #### [facility] [address] [place] [address] Dr. Joe Shea GLYCOHEMOGLOBIN A1Con 2021 ADA RECOMMENDATION SEE BELOW Normal [facility] Comment on above: Result Comment: ADA RECOMMENDED LIMIT 4.0 - 6.0 ADA THERAPEUTIC TARGET < 7.0 ACTION SUGGESTED > 7.0 Performed By: #### C ACRLYN DE JESUS AMY #### [facility] [address] [place] [address] Dr. Joe Shea Glucose [Mass/Vol] 105 mg/dL Normal [facility] Comment on above: Performed By: #### C CARLYN DE JESUS AMY #### [facility] [address] [place] [address] Dr. Joe Shea HbA1c (Bld) [Mass fraction] 5.3 % Normal 4.5-6.2 [facility] Comment on above: Performed By: #### C CARLYN DE JESUS AMY #### [facility] [address] [place] [address] Dr. oJe Shea TSHon 04-05-2022 TSH 0.609 uIU/mL Normal 0.358-3.740 [facility] Comment on above: Performed By: #### C BC #### [facility] [address] [place] [address] Dr. Joe Shea US PELVIS AND TRANSVAGon [...] by: ANGIE MEJIA Date: 2022-04-05 17:23 Normal [facility] AMYLASEon 03-10-2022 Amylase [Catalytic activity/Vol] 64 U/L Normal 25-115 [facility] Comment on above: Performed By: #### C BC #### [facility] [address] [place] [address] Dr. Joe Shea CBC AUTO DIFFon 03-10-2022 BASO # 0.1 103/ul Normal 0.0-0.1 [facility] Comment on above: Performed By: #### C BC #### [facility] [address] [place] [address] Dr. Joe Shea Basophils/100 WBC (Bld) 0.6 % Normal 0.2-2.0 [facility] Comment on above: Performed By: #### C BC #### [facility] [address] [place] [address] Dr. Joe Shea EO # 0.3 103/ul Normal 0.0-0.7 [facility] Comment on above: Performed By: #### C BC #### [facility] [address] [place] [address] Dr. Joe Shea Eosinophils/100 WBC (Bld) 1.7 % Normal 0.9-7.0 [facility] Comment on above: Performed By: #### C BC #### [facility] [address] [place] [address] Dr. Joe Shea Erythrocyte distribution width (RBC) [Ratio] 13.1 % Normal 11.0-15.0 [facility] Comment on above: Performed By: #### C BC #### [facility] [address] [place] [address] Dr. Joe Shea Hematocrit (Bld) [Volume fraction] 37.9 % Normal 36.0-48.0 [facility] Comment on above: Performed By: #### C BC #### [facility] [address] [place] [address] Dr. Joe Shea Hemoglobin (Bld) [Mass/Vol] 12.2 g/dL Normal 12.0-16.0 [facility] Comment on above: Performed By: #### C BC #### [facility] [address] [place] [address] Dr. Joe Shea IG # 0.05 10e3/ul Critically high 0.00-0.03 [facility] Comment on above: Performed By: #### C BC #### [facility] [address] [place] [address] Dr. Joe Shea IG % 0.3 % Normal 0.0-0.5 [facility] Comment on above: Performed By: #### C BC #### [facility] [address] [place] [address] Dr. Joe Shea LYMPH # 4.7 103/ul Critically high 1.2-3.8 [facility] Comment on above: Performed By: #### C BC #### [facility] [address] [place] [address] Dr. Joe Shea Lymphocytes/100 WBC (Bld) 28.3 % Normal 20.5-60.0 [facility] Comment on above: Performed By: #### C BC #### [facility] [address] [place] [address] Dr. Joe Shea MANUAL DIFF REQ NO Normal [facility] Comment on above: Performed By: #### C BC #### [facility] [address] [address] [address] Joe Shea MCH (RBC) [Entitic mass] 27.9 pg Normal 26.7-34.0 [facility] Comment on above: Performed By: #### C BC #### [facility] [address] [place] [address] Dr. Joe Shea MCHC (RBC) [Mass/Vol] 32.2 g/dL Normal 29.9-35.2 [facility] Comment on above: Performed By: #### C BC #### [facility] [address] [place] [address] Dr. Joe Shea MCV (RBC) [Entitic vol] 86.5 fL Normal 81.0-99.0 [facility] Comment on above: Performed By: #### C BC #### [facility] [address] [place] [address] Dr. Joe Shea MONO # 0.9 103/ul Critically high 0.3-0.8 [facility] Comment on above: Performed By: #### C BC #### [facility] [address] [place] [address] Dr. Joe Shea Monocytes/100 WBC (Bld) 5.5 % Normal 1.7-12.0 [facility] Comment on above: Performed By: #### C BC #### [facility] [address] [place] [address] Dr. Joe Shea NEUT # 10.5 103/ul Critically high 1.4-6.5 [facility] Comment on above: Performed By: #### C BC #### [facility] [address] [place] [address] Dr. Joe Shea Neutrophils/100 WBC (Bld) 63.6 % Normal 43.0-75.0 [facility] Comment on above: Performed By: #### C BC #### [facility] [address] [place] [address] Dr. Joe Shea Platelet mean volume (Bld) [Entitic vol] 11.1 fL Normal 9.5-13.5 [facility] Comment on above: Performed By: #### C BC #### [facility] [address] [place], [place] [address] Dr. Joe Shea PLT 428 103/ul Normal 150-450 [facility] Comment on above: Performed By: #### C BC #### [facility] [address] [place], [place] [address] Dr. Joe Shea RBC 4.38 106/ul Normal 4.20-5.40 [facility] Comment on above: Performed By: #### C BC #### [facility] [address] [place], [place] [address] Dr. Joe Shea WBC 16.6 103/ul Critically high 4.0-11.0 [facility] Comment on above: Performed By: #### C BC #### [facility] [address] [place], [place] [address] ABD/PELV W CONon [...] by: MURALI STRANGE Date: 2022-03-10 16:59 Normal [facility] LIPASEon 03-10-2022 Lipase [Catalytic activity/Vol] 81.0 U/L Normal 73.0-393.0 [facility] Comment on above: Performed By: #### C BC #### [facility] [address] [place] [address] Dr. Joe Shea LIVER PROFILEon 03-10-2022 Albumin [Mass/Vol] 4.2 g/dL Normal 3.4-5.0 [facility] Comment on above: Performed By: #### C BC #### [facility] [address] [place] [address] Dr. Joe Shea Albumin/Globulin [Mass ratio] 1.4 {ratio} Normal [facility] Comment on above: Performed By: #### C BC #### [facility] [address] [place] [address] Dr. Joe Shea ALP [Catalytic activity/Vol] 50 U/L Normal 46-116 [facility] Comment on above: Performed By: #### C BC #### [facility] [address] [place] [address] Dr. Joe Shea ALT [Catalytic activity/Vol] 14 U/L Normal 14-59 [facility] Comment on above: Performed By: #### C BC #### [facility] [address] [place] [address] Dr. Joe Shea AST [Catalytic activity/Vol] 13 U/L Critically low 15-37 [facility] Comment on above: Performed By: #### C BC #### [facility] [address] [place] [address] Dr. Joe Shea BILI, CONJUGATED 0.1 mg/dL Normal 0.0-0.2 [facility] Comment on above: Performed By: #### C BC #### [facility] [address] [place] [address] Dr. Joe Shea Bilirubin [Mass/Vol] 0.3 mg/dL Normal 0.2-1.0 [facility] Comment on above: Performed By: #### C BC #### [facility] [address] [place] [address] Dr. Joe Shea Globulin (S) [Mass/Vol] 3.1 g/dL Normal T [facility] Comment on above: Performed By: #### C BC #### [facility] [address] [place] [address] Dr. Joe Shea Protein [Mass/Vol] 7.3 g/dL Normal 6.4-8.2 [facility] Comment on above: Performed By: #### C BC #### [facility] [address] [address] [address] Joe Shea PREG HCG QUALon 03-10-2022 , QUAL Negative Normal NEGATIVE [facility] Comment on above: Performed By: #### L BCLH #### [facility] [address] [place] [address] Dr. Joe Shea PROF CHEM 8 (BAS METB)on Anion gap [Moles/Vol] 17.6 mmol/L Normal [facility] Comment on above: Performed By: #### C NEAL LIPA, LIDA #### [facility] [address] [place] [address] Dr. Joe Shea Calcium [Mass/Vol] 9.0 mg/dL Normal 8.5-10.1 [facility] Comment on above: Performed By: #### C HUGO DE JESUSA, LIDA #### [facility] [address] [place] [address] Dr. Joe Shea Chloride [Moles/Vol] 102 mmol/L Normal 98-107 [facility] Comment on above: Performed By: #### C MP LIPA, LIDA #### [facility] [address] [place] [address] Dr. Joe Shea CO2 [Moles/Vol] 23.4 mmol/L Normal 21.0-32.[address] [facility] Comment on above: Performed By: #### C NEAL LIPA, LIDA #### [facility] [address] [place] [address] Dr. Joe Shea Creatinine [Mass/Vol] 0.84 mg/dL Normal 0.55-1.02 [facility] Comment on above: Performed By: #### C MP, LIPA, LIDA #### [facility] [address] [address] [address] Joe Shea EGFR-AF CAMEROONIAN >60 Normal >=60 [facility] Comment on above: Performed By: #### C NEAL LIPA, LIDA #### [facility] [address] [address] [address] Joe Shea EGFR-NON AF CAMEROONIAN >60 Normal >=60 [facility] Comment on above: Performed By: #### C NEAL LIPA, LIDA #### [facility] [address] [address] [address] Joe Shea Glucose [Mass/Vol] 149 mg/dL Critically high 74-106 [facility] Comment on above: Performed By: #### C HUGO DE JESUSA, LIDA #### [facility] [address] [address] [address] Joe Shea Potassium [Moles/Vol] 2.9 mmol/L Critically low 3.5-5.1 [facility] Comment on above: Performed By: #### C HUGO DE JESUSA, LIDA #### [facility] [address] [address] [address] Joe Shea Sodium [Moles/Vol] 139 mmol/L Normal 136-145 [facility] Comment on above: Performed By: #### C HUGO DE JESUSA, LIDA #### [facility] [address] [address] [address] Joe Shea Urea nitrogen [Mass/Vol] 11.0 mg/dL Normal 7.0-18.0 [facility] Comment on above: Performed By: #### C NEAL LIPA, LIDA #### [facility] [address] [address] [address] Joe Shea Urea nitrogen/Creatinine [Mass ratio] 13.1 mg/mg Normal [facility] Comment on above: Performed By: #### C NEAL LIPA, LIDA #### [facility] [address] [address] [address] Joe Shea XR CSPINE 2_3 VIEWSon [...] ANGIE MEJIA Date: 2022-01-18 08:03 Normal [facility] C BP Strepon 12-23-2019 C BP Strep This is strictly a screening test for Strep Group A( Streptococcus pyogenes). No other pathogens will be noted. Final Backup plate negative for Group A Streptococus Resulted at [facility] Comment on above: Performed By: #### B P #### [facility] (DEFAULT) [address] [place] [address] Ambulatory Patient Education on 12-21-2019 Ambulatory Patient [...] a child 2 years or older. ? [id number] [employer]. [address] [place] [address]. All rights reserved. This information is not intended as a substitute for professional medical care. Always follow your healthcare professional's instructions. Strep today is Negative. Will send for culture to [facility] and notify if it returns positive. Take medication as prescribed. Discontinue for a negative strep culture. Discard and replace toothbrush after taking antibiotics for at least 24 hours. May use ibwz-oui-tcogiov Tylenol and Motrin for pain relief. May use of flmb-vve-swdtofn Chloraseptic throat spray, lozenges, cool or warm [...] tabs, 0 Refill(s), 12/26/19 14:42:00 EDT, Pharmacy: [id number] Normal [facility] [place] Trackon 12-21-2019 BVO Red Swab # 1 Normal [facility] Comment on above: Performed By: #### [facility] Tracking Order #### [facility] [address] [place] [address] Urgent Care Office/Clinic No sabiha 12-21-2019 Urgent [...] for at least 24 hours. May use xfno-rdd-ifljawj Tylenol and Motrin for pain relief. May use of vqfe-ffv-qbrhvcb Chloraseptic throat spray, lozenges, cool or warm [...] tabs, 0 Refill(s), 12/26/19 14:42:00 EDT, Pharmacy: [facility] Physician Comments Centor criteria reviewed. [...] by Rosa Fitch 12/21/19 15:01 EDT Normal [facility] Vital Signs Date Time Vital Sign Value Performing Clinician Facility 08-01-2023 13:55-0500 Body mass index (BMI) [Ratio] 27.44 kg/m2 Lida HIRSCH Work Phone: [facility] 08-01-2023 13:55-0500 Body weight 68.04 kg Lida HIRSCH Work Phone: [facility] 08-01-2023 13:55-0500 Diastolic blood pressure 70 mm[Hg] Lida HIRSCH Work Phone: [facility] 08-01-2023 13:55-0500 Systolic blood pressure 118 mm[Hg] Lida HIRSCH Work Phone: [facility] 03-28-2023 10:16-0400 Body height 157.48 cm Referring Provider Unknown [id number] [address] [place] Work Phone: 03-28-2023 10:16-0400 Body mass index (BMI) [Ratio] 23.78 kg/m2 Referring Provider Unknown [id number] [address] [place] Work Phone: 03-28-2023 10:16-0400 Body surface area Derived from formula 1.59 m2 Referring Provider Unknown [id number] [address] [place] Work Phone: 03-28-2023 10:16-0400 Body weight 58.97 kg Referring Provider Unknown [id number] [address] [place] Work Phone: 03-28-2023 10:16-0400 Diastolic blood pressure 65 mm[Hg] Referring Provider Unknown [id number] [address] [place] Work Phone: 03-28-2023 10:16-0400 Heart rate 96 /min Referring Provider Unknown [id number] [address] [place] Work Phone: 03-28-2023 10:16-0400 Systolic blood pressure 107 mm[Hg] Referring Provider Unknown [id number] [address] [place] Work Phone: 03-28-2023 10:16-0400 0 1 Referring Provider Unknown [id number] [address] [place] Work Phone: Comment on above: [employer] 02-14-2023 09:15-0400 Body height 154.94 cm Filippo Larson Other [employer] Other 02-14-2023 09:15-0400 Body mass index (BMI) [Ratio] 21.73 kg/m2 Filippo Larson Other [employer] Other 02-14-2023 09:15-0400 Body weight 52.16 kg Filippo Larson Other [employer] Other 02-14-2023 09:15-0400 Diastolic blood pressure 68 mm[Hg] Filippo Larson Other [employer] Other 02-14-2023 09:15-0400 Systolic blood pressure 96 mm[Hg] Filippo Larson Other [employer] Other 07-17-2022 14:26-0500 Blood Pressure Location Mayito LIM [facility] 07-17-2022 14:26-0500 Diastolic blood pressure 70 mm[Hg] Mayito LIM [facility] [place] 07-17-2022 14:26-0500 Heart rate 70 /min Mayito LIM [facility] [place] 07-17-2022 14:26-0500 Respiratory rate 16 /min Mayito LIM [facility] [place] 07-17-2022 14:26-0500 Systolic blood pressure 102 mm[Hg] Mayito LIM [facility] [place] 03-09-2020 20:24-0400 BP Diastolic 61 mm[Hg] PHYSICIAN NO [facility] 03-09-2020 20:24-0400 BP Systolic 117 mm[Hg] PHYSICIAN NO [facility] 03-09-2020 20:24-0400 Pulse (Heart Rate) 85 /min PHYSICIAN NO [facility] 03-09-2020 20:24-0400 Pulse Oximetry 100 % PHYSICIAN NO [facility] 03-09-2020 20:24-0400 Respiratory Rate 24 /min PHYSICIAN NO [facility] 03-09-2020 18:49-0400 BMI (Body Mass Index) 20 kg/m2 PHYSICIAN NO [facility] 03-09-2020 18:49-0400 Body Temperature 98.7 [degF] PHYSICIAN NO [facility] 03-09-2020 18:49-0400 Body weight 49.[address] [facility] 03-09-2020 18:49-0400 Height 157.[address] [facility] Encounters Encounter Date Encounter Type Care Provider Facility Start: 08-01-2023 End: 08-01-2023 ambulatory LIDA PRICE Not Available Start: 08-01-2023 End: 08-01-2023 Postop follow up visit related to original px Lida HIRSCH Work Phone: [facility] Comment on above: S/P section Start: 07-22-2023 End: 07-22-2023 ambulatory Cecil Lilian Facility:[facility] Start: 07-22-2023 End: 07-22-2023 ambulatory Cecil Lilian Work Phone: [facility] Work Phone: Start: 07-22-2023 End: 07-22-2023 Departed Referred Cecil Lilian Work Phone: [facility] [place] [facility] Start: 07-22-2023 End: 07-22-2023 ambulatory CECIL [...] Cervantes MD Work Phone: [facility] Comment on above: 34 weeks gestation o f (Primary Dx); Poor growth affecting management of mother in third trimester, fetus 1 of multiple gestation; Dichorionic diamniotic twin in third trimester; Anxiety during Start: 07-04-2023 Orders Only Freddy Hughes [facility]- [facility] Comment on above: Dichorionic diamniot ic twin in third trimester (Primary Dx); Poor growth affecting management of mother in third trimester, fetus 1 of multiple gestation Start: 07-03-2023 End: 07-04-2023 ambulatory AMADEO HEATON [facility] Start: 06-11-2023 End: 06-11-2023 ambulatory LIDA PRICE Not Available Start: 05-28-2023 End: 05-28-2023 ambulatory CECIL LILIAN Not Available Start: 05-14-2023 End: 05-14-2023 ambulatory LIDA DEE Not Available Start: 03-28-2023 Office consultation new/estab patient 80 min Referring Provider Unknown [id number] [address] [place] Work Phone: Start: 03-28-2023 Patient encounter procedure Referring Provider Unknown [id number] [address] [place] Work Phone: Start: 03-28-2023 ambulatory Ramakrishna Schwarz Facility :[facility] Start: 02-14-2023 End: 02-14-2023 ambulatory Filippo Larson Other [facility] [employer] Other Start: 02-14-2023 Office outpatient vi sit 15 minutes Filippo Larson [facility] G[facility] Start: 11-28-2022 End: 11-28-[address] SHAN CONDE Facility: Start: 11-28-[address] SHAN CONDE Facil ity:[facility]1 Start: 10-28-2022 End: 10-28-[address] SHAN CONDE Facility:[facility] Start: 09-29-2022 End: 09-29-[address] SHAN CONDE Facility:[facility] Start: 09-19-2022 End: 09-20-[address] SHAN CONDE Facility:[facility] Start: 08-15-[address] SHAN CONDE Facil ity:[facility] Start: 07-17-2022 End: 07-18-2022 ambulatory SHAN CONDE PROVIDER Facility:[facility] Start: 07-17-2022 End: 07-17-2022 Patient encounter procedure Mayito LIM [facility]Hossein [facility] Start: 07-10-2022 End: 07-10-[address] CECIL JOHNSON . Facility: Start: 07-08-2022 Encounter for preprocedural laboratory examination DR CECIL JOHNSON . [facility] Start: 07-06-2022 End: 07-07-[address] CECIL JOHNSON . Facility:[facility] Start: 07-06-2022 End: 07-07-2022 Encounter for preprocedural laboratory examination DR CECIL JOHNSON . Facility:[facility] Start: 06-15-2022 End: 06-16-[address] CECIL JOHNSON . Facility:[facility] Start: 06-11-2022 End: 06-12-2022 ambulatory JUANJOSE VIRAMONTES Facility:[facility] Start: 06-08-2022 ambulatory SHAN CONDE PROVIDER Facility:[facility] Start: 05-31-2022 End: 06-01-[address] CECIL [...] Facility:[facility] Start: 03-10-2022 End: 03-10-[address] SHAN CONDE Facility:[facility] Start: 03-10-2022 End: 03-10-[address] SHAN CONDE Facility:[facility] Start: 01-17-2022 End: 01-18-[address] SHAN CONDE Facility:[facility] Start: 03-09-2020 End: 03-09-2020 Emergency department patient visit PHYSICIAN KIMI RO [facility] Start: 04-27-2014 End: 04-27-2014 Telephone encounter Noa Dimas MD Work Phone: Reproductive Endocrinology Infertility Procedures Date Procedure Procedure Detail Performing Clinician Start: 10-25-2020 Microscopic observation [Identifier] in Cervix by Cyto stain Freddy Hughes CARE DIRECTOR Colonoscopy Maytio NILCourtney Dilation and curettage Temo douglass NILL Dilation and curettage Temo douglass NILL Esophagogastroduodenoscopy Arianna knight NILL Excision of cyst of ovary Juana LIM H/O: section S/P mitch an section Lida HIRSCH Work Phone: Lesley Mayito RAPHAEL Plan of Treatment Date Care Activity Detail Author Start: 05-28-2032 DTaP,Tdap and Td Vaccines (8 - Td or Tdap) DTaP,Tdap and Td Vaccines (8 - Td or Tdap) [facility] Start: 07-04-2024 End: 07-04-2024 US MFM with or without consult US MFM with or without consult Imaging Routine Dichorionic diamniotic twin in third trimester Poor growth affecting management of mother in third trimester, fetus 1 of multiple gestation Expected: 07/04/2024 (Approximate), Expires: 07/04/2024 [facility] Work Phone: Comment on above: Expected: 07/04/2024 (Approximate), Expires: 07/04/2024 Start: 06-03-2024 Adult BMI Screening Adult BMI Screen ing [facility] Start: 06-03-2024 Tobacco Screening Tobacco Screening [facility] Start: 2024 Screening for Chlamy carroll trachomatis Chlamydia Screening [facility] Start: 11-04-2023 End: 11-04-2023 Patient encounter procedure 11/04/2023 9:00 AM EDT Office Visit [facility] [address] [place] [address] Shan Conde MD [address] [place] [id number] [facility] Start: 10-26-2023 Screening for malign ant neoplasm of cervix Pap Smear [facility] Start: 07-17-2023 End: 07-17-2023 Patient encounter procedure 07/17/2023 9:30 AM EST Appointment [facility] [address] [place] [address] [facility] Start: 07-08-2023 End: 07-08-2023 Telemedicine consultation with patient 07/08/2023 1:00 PM EST Telemedicine [facility] [address] [place] [id number] Paulie Cervantes MD [address] [facility] [place] [address] Lyly Smith MD [address] [facility] [address] [place] [address] [facility] Start: 03-01-2023 Influenza vaccination [facility] Start: 03-01-2021 Influenza vaccination INFLUENZ A (Season Ended) [facility] Start: 02-28-2020 PAP TESTING PAP TESTING [facility] Start: 2018 Urine microalbumin profile DTAP,TDAP,TD (1 - Tdap) [facility] Start: 2017 Adult BMI Follow Up Plan Adult BMI Follow Up Plan [facility] Start: 2017 CHLAMYDIA SCREENING (18-24) CHLAMYDIA SCREENING (18-24) [facility] Start: 2017 GC (GONORRHEA) SCREE KRUNAL (18-24) GC (GONORRHEA) SCREENING (18-24) [facility] Start: 2017 HEPATITIS C SCREENING HEPATITIS C SC REENING [facility] Start: 2017 HIV SCREENING HIV SCREENING [facility] Start: 2011 Adult depression screening assessment DEPRESSION SCREENING [facility] Start: 2010 HPV VACCINE (1 - 2-d ose series) HPV VACCINE (1 - 2-dose series) [facility] Patient Education Anxiety (ED) [facility] Patient referral [facility] Immunizations Immunization Date Immunization Notes Care Provider Fa cility 01-05-2022 influenza virus vaccine, unspecified formulation Freddy Hughes [facility] NEGATED: Highlighted row has not occurred!07-17-2022 influenza virus vaccine, unspecified formulation Mayito LIM [facility] [place] Payers Date Payer Category Payer Self-pay [id number] 2022 Medicaid [employer] [facility] [id number] 2022-Present [address] [address] [place] [address] [id number] 2019 Unknown 2013 Unknown [facility] CE PLAN ZZZNDIO PPO [employer] [id number] 2013-2014 PPO [id number]. [id number] 1999 Unknown [id number] 2.16.840.1.820046.3.579.2.727 1999 Unknown [id number] 2.16.840.1.618084.3.579.2.727 1999 Unknown [id number] 2.16.840.1.095109.3.579.2.593 1999 Unknown [id number] 2.16.840.1.791516.3.579.2.593 1999 Unknown [id number] 2.16.840.1.282810.3.579.2.593 1999 Unknown [id number] 2.16.840.1.545546.3.579.2.593 1999 Unknown [id number] 2.16.840.1.007052.3.579.2.593 1999 Unknown [id number] 2.16.840.1.658407.3.579.2.593 1999 Unknown [id number] 2.16.840.1.585452.3.579.2.593 1999 Unknown [id number] 2.16.840.1.583852.3.579.2.593 1999 Unknown [id number] 2.16.840.1.066816.3.579.2.593 1999 Unknown [id number] 2.16.840.1.507196.3.579.2.593 1999 Unknown [id number] 2.16.840.1.750696.3.579.2.593 1999 Unknown [id number] 2.16.840.1.934862.3.579.2.593 1999 Unknown [id number] 2.16.840.1.309733.3.579.2.593 1999 Unknown [id number] 2.16.840.1.738236.3.579.2.593 1999 Unknown [id number] 2.16.840.1.431737.3.579.2.593 1999 Unknown [id number] 2.16.840.1.933993.3.579.2.593 1999 Unknown [id number] 2.16.840.1.902570.3.579.2.593 1999 Unknown [id number] 2.16.840.1.185488.3.579.2.593 1999 Unknown [id number] 2.16.840.1.481866.3.579.2.593 1999 Unknown [id number] 2.16.840.1.086664.3.579.2.593 1999 Unknown [id number] 2.16.840.1.207333.3.579.2.593 1999 Unknown [id number] 2.16.840.1.776356.3.579.2.356 1999 Unknown [id number] 2.16.840.1.051041.3.579.2.1286 1999 Unknown [id number] 2.16.840.1.898327.3.579.2.1286 1999 Unknown [id number] 2.16.840.1.207830.3.579.2.1286 1999 Unknown [id number] 2.16.840.1.657438.3.579.2.1259 1999 Unknown [id number] 2.16.840.1.897282.3.579.2.1259 1999 Unknown [id number] 2.16.840.1.008869.3.579.2.1259 1999 Unknown [id number] 2.16.840.1.816465.3.579.2.1259 1999 Unknown [id number] 2.16.840.1.493684.3.579.2.1259 1999 Unknown [id number] 2.16.840.1.505294.3.579.2.1259 1999 Unknown [id number] 2.16.840.1.749038.3.579.2.1259 1959 Unknown [id number] 1959 Unknown [id number] 1959 Unknown [id number] Unknown Self Pay [id number] Unknown [id number] 2.16.840.1.254309.3.579.2.531 Social History Date Type Detail Facility Start: 03-09-2020 End: 03-10-2020 Tobacco smoking status CAIS Smoker (finding) [facility] Start: 1999 Sex Assigned At Female [facility] Start: 04-12-2014 End: 11-27-2022 Tobacco smoking status CAIS Never smoker [facility] Start: 04-12-2014 End: 04-01-2023 Tobacco use and exposure Never used [facility] Start: 04-12-2014 Alcohol intake 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 non-dr mid teacher of alcohol (finding) [facility] Start: 1999 Sex Assigned At Not on file [facility] Start: 07-17-2022 End: 04-01-2023 Tobacco smoking status Ex-smoker (finding) [facility] [place] Tobacco smoking status Smokeless tobacco user within last 30 days [facility] [place] Start: 11-27-2022 End: 06-03-2023 Sex Assigned At Female [facility] Start: 11-27-2022 End: 04-01-2023 No alcohol use No alcohol use [facility] History of tobacco use Cigarette Smoker [facility] Start: 06-03-2023 Alcohol intake Ex-drinker (finding) [facility] Start: 10-25-2020 Alcohol Comment [facility] Start: 11-22-2022 [facility] Start: 08-01-2023 Alcohol intake Lifetime non-d li (finding) [facility] Start: 11-27-2022 Education 9 [facility] Start: 11-27-2022 Alcohol Comment Caffeine intak e 1-2 cups per day pop [facility] Start: 11-27-2022 Gender identity Identifies as female gender (finding) [facility] NEGATED: Highlighted row Denies History of domestic violence Denies History of domestic violence [id number] [address] [place] Work Phone: Goals Date Patient Goal Desired Activity /State Functional Status Date Assessment Result Facility 07-17-2022 Functional Status N/A [facility] [place] Clinical Notes 04-27-2014 to 08-01-2023 TORREY Black - 08/01/2023 1:40 PM Jose Smith MD - 07/08/2023 1:00 PM EST Note Date & Type Note Facility 08-01-2023 History of Present illness Narrative Reason for Appointment: Patient ID: Shanon Louise is a 23 y.o. female who presents for Post-op Visit (C/s 07/22/2023) Patient presents today for Post Follow Up and 1 Week Post Op appointment. Current Medications: has a current medication list which includes the following prescription(s): aspirin low dose, citalopram, hydroxyzine hcl, profe, pantoprazole, and vitamins. Medical History: Active Ambulatory Problems Diagnosis Date Noted No Active Ambulatory Problems Resolved Ambulatory Problems Diagnosis Date Noted Hypertension affecting in third trimester 07/22/2023 Third trimester 07/22/2023 Past Medical History: Diagnosis Date Bipolar 1 disorder (CMS/HCC) Disorder of menstrual bleeding Endometriosis of pelvic peritoneum LAMIN (generalized anxiety disorder) ([facility]/HCC) Hematometra Metrorrhagia Family History Problem Relation Name Age of Onset Mental illness Mother Other (drug use) Mother whatever she can take Hyperlipidemia Mother Endometriosis Mother Migraines Mother Hypertension Sibling Other (alcohol) Other Social History Tobacco Use Smoking status: Never Smokeless tobacco: Not on file Substance Use Topics Alcohol use: Never Comment: Caffeine intake 1-2 cups per day pop Drug use: Never Past Surgical History: Procedure Laterality Date D&C FIRST TRIMESTER / TX INCOMPLETE / MISSED / SEPTIC / INDUCED 2013 uterine stent placement;Disease:Hematometra HM MAMMOGRAPHY 07/03/2022 IUD INSERTION 12/09/2014 mirena OTHER SURGICAL HISTORY :lap fulgeration endometroisis with evac hematometra;Disease:pelvic pain/Endometriosis/retrograde menstruation OTHER SURGICAL HISTORY 07/10/2022 Dx Lap w/chromopertubation PAP SMEAR 01/2021 negative No Known Allergies Review of Systems: Review of Systems Constitutional: Negative. HENT: Negative. Eyes: Negative. Respiratory: Negative. Cardiovascular: Negative. Gastrointestinal: Negative. Genitourinary: Negative. Musculoskeletal: Negative. Skin: Negative. Neurological: Negative. All other systems reviewed and are negative. Hematological: Negative. Endocrine: Negative. Allergic/Immunologic: Negative. Objective Physical Exam Constitutional: Appearance: Normal appearance. She is normal weight. HENT: Head: Normocephalic. Cardiovascular: Rate and Rhythm: Normal rate. Pulses: Normal pulses. Pulmonary: Effort: Pulmonary effort is normal. Breath sounds: Normal breath sounds. Abdominal: Palpations: Abdomen is soft. Comments: Pfannenstiel incision healing well Musculoskeletal: General: Normal range of motion. Neurological: General: No focal deficit present. Mental Status: She is alert and oriented to person, place, and time. Psychiatric: Mood and Affect: Mood normal. Behavior: Behavior normal. Thought Content: Thought content normal. Judgment: Judgment normal. Vitals and nursing note reviewed. Vitals: Estimated body mass index is 27.44 kg/m as calculated from the following: Height as of 01/11/23: 5' 2 . Weight as of this encounter: 150 lb. BP: 118/70 Patient's last menstrual period was 11/08/2022. Assessment/Plan Encounter Diagnosis Name Primary? S/P section Patient presents today for a one week postop section check. Patient is doing well with minor complaints of pain. Incision has been noted as healing well with no signs and symptoms of infection. Steri strips intact no drainage or discharge Follow Up: Patient is to return in 5 weeks for 6 week evaluation. Documented by TORREY Black on behalf of: TORREY Black documented in this encounter [facility] 07-08-2023 History of Present illness Narrative Video Visit via Real-time Synchronous Audiovisual Provider Location: [facility] MAT[facility]- MEDICINE AT [address] [id number] Patient Location: Patient Location Link Fabric Machine Operator: None Video Visit Consent Statement: I [...] that there are some limitations compared to hmkr-fq-tjyo evaluations. We elected to proceed. REASON FOR [...] and B, status post 2nd opinion at [facility] Anxiety/ depression, managed on citalopram [...] in time place and person. OVERALL ASSESSMENT: -Shanno Louise is 23 y.o. at 34w4d -Dichorionic diamniotic twin gestation - resulting from assisted reproductive therapy - growth restriction of twin a, normal umbilical artery Dopplers -Resolved subchorionic hematomas in twin a and B, status post 2nd opinion at [facility] COUNSELING We reviewed signs symptoms [...] Serial Doppler studies for growth restriction at [facility] office, Doppler studies remain normal, repeat on 07/17/2023 Delivery scheduled at 37 weeks' gestation with primary OB at local hospital, primary due to male presentation of twin a, breech Patient is scheduled for repeat umbilical artery Doppler assessment in 2 weeks, no future clinic visits with MFM Thank you for allowing me to participate in Shanon Louise care. If there are any questions, please do not hesitate to call me. Lyly Smith MD Maternal- Medicine [facility] [address] [facility] [address] [place] [address] documented in this encounter [facility] 02-14-2023 Evaluation note Encounter Date Diagnosis [...] needed. Retrun visit here in three months. [employer] Other 01-20-2023 NoteChief Complaint consultation for [...] Reports colonoscopy completed several years ago at [facility] was normal. History of Present Illness 22 yo female with h/o bipolar disorder, anxiety, migraines, referred for intermittent epigastric and LUQ pain, burning, at times sharp/stabbing; occasional N/V; + boating; no food triggers, occurs celia without eating; no hematemesis or melena; no hematochezia, some constipation, improved with stool softeners; had normal EGD and colonoscopy at [facility] in 2016; abdominal operations significant [...] more than 30 da (more content not included)...[facility]:Result Comment: Electronically Signed By: aMyito LIM MD\Date and Time Signed: 07/20/22 14:58 [id number] Note OPERATIVE NOTE OPERATION DATE: 07/10/2021 PROCEDURE: Diagnostic laparoscopy with chromopertubation. PREOPERATIVE DIAGNOSIS: Pelvic pain. POSTOPERATIVE DIAGNOSIS: Pelvic pain, including small endometrial implant posterior cul-de-sac, as well as possible blunted tube on the patient's left side. ANESTHESIA: General. SURGEON: Cecil Johnson D.O. SHOVEL ENGINEER: ISAURO Mccoy URINE OUTPUT: Yellow and clear. BLOOD LOSS: 5 mL. FINDINGS: Slightly blunted tube on the left side, endometriosis posterior cul-de-sac, otherwise normal appearing uterus, tubes and ovaries. Normal appearing appendix. Some adhesions of the bowel to the pelvic and abdominal side wall on the patient's right side. Normal appearing liver. No evidence of Spin-Pbxk-Dvlhxl syndrome. PROCEDURE: The patient was taken back [...] taken to Recovery Room in stable conditionThe [facility] [id number] NoteOP Note OPERATION DATE: 07/10/2022 PROCEDURE: Diagnostic laparoscopy with chromopertubation. PREOPERATIVE DIAGNOSIS: Pelvic pain, suspected endometriosis, fallopian tube disorder. POSTOPERATIVE DIAGNOSIS: Pelvic pain, suspected endometriosis, fallopian tube disorder, including mild endometriosis, bilateral patent fallopian tubes, small bowel adhesion to the pelvic side wall. ANESTHESIA: General. SURGEON: Cecil Johnson D.O. SHOVEL ENGINEER: ISAURO Mccoy URINE OUTPUT: Yellow and clear. BLOOD LOSS: 5 mL. ADDENDUM: Please note that chromopertubation was performed after methylene blue was placed through the HUMI manipulator. Spillage of methylene blue could be seen from both tubes.[facility] [id number] Instructions* Patient Instructions* [facility] Jennifer - 04/27/2014 4:49 PM EDT [phone] - Patient mother would like to speak with a nurse concerning medications that her daughter is taking. [facility] N[facility]ative - Reported * the patient is seen at the request of Dr. Gonzales at [facility] for consultation regarding second opinion for placental hemorrhage; EDC 08/15/2023 * FC MA [id number] [address] [place] Work Phone: chiar complaint Narrative - Reported* the patient is seen at the request of Dr. Gonzales at [facility] for consultation regarding second opinion for placental hemorrhage; EDC 08/15/2023 * FC MA [id number] [address] [place] Work Phone: evaluation + Plan note No data available for this section General Surgery [place] Evaluation note* Diagnosis Dichorionic diamniotic twin in third trimester- Primary Poor growth affecting management of mother in third trimester, fetus 1 of multiple gestation documented in this encounter [facility]* Diagnosis 34 weeks gestation of - Primary Poor growth affecting management of mother in third trimester, fetus 1 of multiple gestation Dichorionic diamniotic twin in third trimester Anxiety during documented in this encounter [facility] noteNo assessment information available [facility] Work Phone: Evaluation note* Diagnosis S/P section Other postprocedural status documented in this encounter [facility] general Narrative - Reported* Type Description Date Medical History Anxiety Medical History GERD (gastroesophageal reflux di sease) Medical History bipolar Surgical History LAPAROSCOPY-times 2013 Hospitalization History [facility] & vomiting - ultrasound & CT scans 12/2022 [employer] Other Hospital Discharge instructions No data available for this section General Surgery [place] InstructionsNot on filedocumented in this encounter [facility] SystemInstructionsNot on filedocumented in this encounter [facility] SystemProgress note No data available for this [...] with or without consult Amadeo Heaton MD [address] [place] [id number] [facility] Maternal Med [address] [place] [address] Referral ID Status Reason Start Date Expiration Date V isits Requested Visits Authorized [id number] Pending Review 07/04/2023 07/03/2024 1 1 Additional Source Comments INFORMATION SOURCE (unrecogn ized section and content) DATE CREATED AUTHOR 02/04/2020 [facility] DATE CREATED AUTHOR AUTHOR'S ORGANIZ ATION 08/16/2022 [facility] DATE CREATED AUTHOR AUTHOR'S ORGANIZ ATION [facility]/07/2022 [facility] DATE CREATED AUTHOR AUTHOR'S ORGANIZ ATION 04/06/2023 [facility] DATE CREATED AUTHOR AUTHOR'S ORGANIZ ATION 07/20/2023 [facility] DATE CREATED AUTHOR AUTHOR'S ORGANIZ ATION 08/03/2023 [facility] dical [facility] DATE CREATED AUTHOR AUTHOR'S ORGANIZ ATION 08/20/2023 [facility] Source Comments (unrecognize d section and content) In the event this informatio n is protected by the Federal Confidentiality of Alcohol and Drug Abuse Patient Records regulations: The Federal rules restrict any use of the information to criminally investigate or prosecute any alcohol or drug abuse patient.[facility] Patient Care team informatio n (unrecognized section and content) Oracle Database Manager Relationship Specialty Start Date End Date No Pcp, [place] [address] PCP - General Family Medicine 10/25/20 Oracle Database Manager Relationship Specialty Start Date End Date No Pcp, [place] [address] PCP - General Family Medicine 10/25/20 Team Status: Inactive Member Role Status Dates Cecil Johnson Attending Provider Active Start: Mikel mirza 2023 End: July 22, 2023 Oracle Database Manager Relationship Specialty Start Date End Date Shan Conde MD PCP - General Cardiology 11/28/22 REASON FOR VISIT (unrecogniz ed section and content) Reason Comments Post-op Visit C/s 07/22/2023 Goals (unrecognized section and content) Goals may [...] BE BASED ON THE PRIMARY CLINICAL RECORDS. [employer] [facility] provides no warranty or guarantee of the accuracy or completeness of information in this document.
[2023-10-03 13:09] LABS: Influenza Virus A Antigen Positive; Influenza Virus B Antigen Negative; Internal Control Within Normal Limits; SARS-CoV-2 Ag NEGATIVE (NEGATIVE)
--- NOTE | 2023-10-03 13:14 | ED.URI1 ---
HPI - URI/Sore Throat General Chief Complaint: Upper Respiratory Infection Stated Complaint: FLU LIKE SYMPTOMS Time Seen by Provider: 10/03/23 13:04 Source: patient Limitations: no limitations History of Present Illness HPI Narrative: Patient is a 23-year-old female who presents to the emergency department for flulike illness for the last 2 days. Her was positive for influenza A last week, there are 2 infant twins are also being evaluated. Patient reports cough, congestion, nausea. She is currently breast-feeding. She reports subjective fever at home. No medications taken prior to arrival. Related Data Home Medications ?Medication ?Instructions ?Recorded ?Confirmed citalopram 40 mg tablet 40 mg PO DAILY 01/21/23 07/23/23 hydroxyzine HCl 25 mg tablet 25 mg PO DAILY PRN nausea and 01/21/23 07/16/23 vomiting cjaewvhz-mvp-Em-FA 1 mg 1 tab PO DAILY 01/21/23 07/16/23 tablet pantoprazole 40 mg tablet,delayed 40 mg PO DAILY 06/25/23 07/16/23 release polysaccharide iron complex 180 mg 180 mg PO DAILY 06/25/23 07/16/23 iron capsule (Pro Fe) Previous Rx's ?Medication ?Instructions ?Recorded kusvzzzfrpasrdw-tkaushtqjngxvno-FO 10 ml PO Q6H PRN cold symptoms 10/03/23 2 mg-30 mg-10 mg/5 mL oral syrup #200 mL (Bromfed DM) ondansetron 4 mg disintegrating 4 mg PO Q6H PRN nausea and 10/03/23 tablet vomiting #12 tabs Allergies Allergy/AdvReac Type Severity Reaction Status Date / Time No Known Drug Allergies Allergy Verified 10/03/23 12:02 Review of Systems ROS Constitutional Reports: fever and chills Ears, nose, mouth, and throat Reports: nasal congestion; Denies: throat pain Respiratory Reports: cough; Denies: shortness of breath Gastrointestinal Denies: nausea, vomiting or diarrhea Musculoskeletal Denies: back pain Integumentary/Breast Denies: rash Endocrine Denies: excessive urination [facility] Medical History (Updated 10/03/23 @ 13:13 by TORREY Hannah) Twin gestation in third trimester ?O30.003 - Twin , unspecified number of placenta and unspecified number of amniotic sacs, third trimester (ICD-10) Chronic abdominal pain ?R10.9 - Unspecified abdominal pain (ICD-10) ?G89.29 - Other chronic pain (ICD-10) Bipolar 2 disorder ?F31.81 - Bipolar II disorder (ICD-10) Surgical History (Updated 07/26/23 @ 13:13 by Marilee Badillo MD) Delivery by section Hx of dilation and curettage ?Z98.890 - Other specified postprocedural states (ICD-10) Family History Father Family history of COPD (chronic obstructive pulmonary disease) Grandmother Family history of COPD (chronic obstructive pulmonary disease) Family history of cancer Sister Family history of diabetes mellitus Social History Within the past year, how often did you have a drink containing alcohol: never Within the past year, how often did you have six or more drinks on one occasion: never Score interpretation: A score less than 3 is consistent with normal alcohol consumption. 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 Known occupational exposures/hazards: No Highest level of school completed/degree received: 11th grade Do you want help with school or training: No Are you now , , , , never or living with a partner: living with partner In a typical week, how many times do you talk on the telephone with family, friends, or neighbors: 3 or more times per week How often do you get together with friends or relatives: 3 or more times per week How often do you attend sabianist or adventist services: never Do you belong to any clubs or organizations such as sabianist groups unions, fraternal or athletic groups, or school groups: no Total score: 2 Score interpretation: A score of greater than or equal to 2 indicates the lowest level of social isolation. Little interest or pleasure in doing things: nearly every day Feeling down, depressed, or hopeless: not at all Feel stressed/tense/nervous/anxious/difficulty sleeping: not at all Due to disability, difficulty making decisions: No Do you think of yourself as: straight/heterosexual Gender Identity: female Exam Narrative Exam Narrative: Gen.: Awake, alert, in no distress Head: Normocephalic, atraumatic ENT: Moist mucous membranes, Bilateral TMs clear, no pharyngeal erythema Respiratory: No respiratory distress, lungs clear bilaterally Cardio: Regular rate and rhythm Extremities: Moves extremities equally Psych: Normal mood and affect Neuro: No focal neuro deficit Skin: Warm, dry, intact Constitutional Vital Signs, click to edit/add: Last Vital Signs Temp 99.3 F 10/03/23 12:02 Pulse 89 10/03/23 12:02 Resp 16 10/03/23 12:02 BP 121/61 10/03/23 12:02 Pulse Ox 100 10/03/23 12:02 O2 Del Method Room Air 10/03/23 12:02 Course Vital Signs Vital signs: Vital Signs Temperature 99.3 F 10/03/23 12:02 Pulse Rate 89 10/03/23 12:02 Respiratory Rate 16 10/03/23 12:02 Blood Pressure 121/61 10/03/23 12:02 Pulse Oximetry 100 10/03/23 12:02 Oxygen Delivery Method Room Air 10/03/23 12:02 Temperature 99.3 F 10/03/23 12:02 Pulse Rate 89 10/03/23 12:02 Respiratory Rate 16 10/03/23 12:02 Blood Pressure 121/61 10/03/23 12:02 Pulse Oximetry 100 10/03/23 12:02 Oxygen Delivery Method Room Air 10/03/23 12:02 MDM - URI/Sore Throat MDM Narrative Medical decision making narrative: Patient is positive for influenza A. She is given a prescription of Zofran for home. She can continue Motrin, Tylenol, Zofran while breast-feeding but if she takes the cough medication prescribed, she needs to pump and dump. She verbalizes understanding. Follow-up with PCP and return to the ER if symptoms change or worsen Medical Records Attestation: I reviewed the patient's medical records. Lab Data Labs: Lab Results 10/03/23 Range/Units 12:30 Influenza Type A Ag Positive A Influenza Type B Ag Negative SARS-CoV-2 Ag (CV2AG) Negative (NEGATIVE) Discharge Plan Discharge Stand Alone Forms: Portal Instructions Chief Complaint: Upper Respiratory Infection Clinical Impression: Influenza A Patient Disposition: Home, Self-Care Time of Disposition Decision: 13:13 Condition: Good Prescriptions / Home Meds: New wnztgimxmdjaznm-uskxvdswz-XN [Bromfed DM] 2-30-10 mg/5 mL syrup 10 ml PO Q6H PRN (Reason: cold symptoms) Qty: 200 0RF ondansetron 4 mg tablet,disintegrating 4 mg PO Q6H PRN (Reason: nausea and vomiting) Qty: 12 0RF No Action citalopram 40 mg tablet 40 mg PO DAILY Patient Comments: Pt own medication. hydroxyzine HCl 25 mg tablet 25 mg PO DAILY PRN (Reason: nausea and vomiting) jutnddso-tfg-Im-FA 1 mg tablet 1 tab PO DAILY pantoprazole 40 mg tablet,delayed release (DR/EC) 40 mg PO DAILY Pro Fe 180 mg iron capsule 180 mg PO DAILY Print Language: Kuwaiti Instructions: Influenza (ED) Referrals: Shan Moya MD [Primary Care Provider] - 1 week
== END 2023-10-03 13:45 | disposition home or self-care (01) ==
PROVIDERS: Emergency Provider Emergency Medicine Emergency Medical Services; PCP Family Medicine
DX: J10.1 Influenza due to other identified influenza virus with other respiratory manifestations (principal); F31.81 Bipolar II disorder; Z87.891 Personal history of nicotine dependence
CPT/HCPCS: 87804; 87811; 99283

== ENCOUNTER 2024-01-27 06:05 | Emergency (ER) | payer OTHER, SELFPAY ==
[2024-01-27 06:10] VITALS: BP 120/74; PULSE 102; TEMP 37.1; O2SAT 97; BMI 25.6
--- OUTSIDE RECORDS SUMMARY | 2024-01-27 06:11 | XMS_ITS | CCD ---
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 Name Role Phone NO FAMILY, PHYSICIAN Primary Care Provider Unajesus loboerik RadhaNela Primary Care Provider SHAN CONDE Primary Care Physician [phone] AMAYA PROVIDER, SHAN Referring Unavailab le NILL, Mayito Thapa Attending Unavailable AMAYA PROVIDER, SHAN Referring Unavailab le NILCourtney, Mayito Thapa Attending Unavailable AMAYA, DR SHAN Kong [...] Consulting Unavailable MISTI BREWER Consulting Unavailable EUSEBIO ., MARYURI Admitting Unavailable EUSEBIO ., MARYURI Attending Unavailable JORGE, DR SHIRLEY Thapa Consulting Unavailable AMAYA, DR SHAN Kong Primary Care Unavailable EUSEBIO ., MARYURI Consulting Unavailable HARMAN ADAMS Consulting Unavailable [...] Unavailable LILIAN ., DR GATICA Admitting Unavailable MOUNT STORM, DR ANGIE Arce Consulting Unavailable NADERER, DR SHAN Kong Primary Care Unavailable LILIAN ., DR GATICA Consulting Unavailable BENEDICT, DR WATSON Consulting Unavailable BENEDICT, DR WATSON Admitting Unavailable BENEDICT, DR WATSON Attending Unavailable NADERER, DR SHAN Kong Primary Care Unavailable CHAKYANGIE Consulting Unavailable LILIAN ., DR GATICA Attending [...] NADERER, DR SHAN Kong Primary Care Unavailable SMAREEN SCHWARZ Consulting Unavailable SAMREEN SCHWARZ Admitting Unavailable [...] Unavailable NADERER, DR SHAN Kong Admitting Unavailable AMAYA, DR SHAN Kong Attending Unavailable MOUNT STORM, DR ANGIE Arce Consulting Unavailable REQUEST, NONE LISTED Primary Care Unavaila caitie CONDE, DR SHAN Kong Consulting Unavailable Filippo Larson Unavailable Unknown, Referring Provider Unavailable Unav ailable Karishma Ramakrishna Attending Unavailable UNKNOWN, PCP Primary Care Unavailable [...] Provider Shan Conde MD Primary Care Provider [phone] LILIAN, CECIL Attending Unavailable LILIAN, CECIL Attending Unavailable LILIAN, CECIL Attending Unavailable DEE, LIDA Attending Unavailable LILIAN, CECIL Attending Unavailable DEE, LIDA Attending Unavailable DEE, LIDA Attending Unavailable Lilian, Cecil Attending Unavailable Lilian, Cecil Admitting Unavailable Unavailable Unavailable Unavailable Allergies Allergy Classification Reported Allergen(s) Allergy Type Date of Onset Reaction(s) Facility (1 source) No Known Medication Allergies; Translations: [No Known Medication Allergies] Propensity to adverse reactions (disorder) [facility] Repository Medications Current Medications Medication Drug [...] 07/17/22 Status: Ordered take 2 tablets by [facility] once daily at bedtime Elavil [...] Start: 07-11-2022 take 1 tablet by jayro once daily citalopram 40 mg Tab 40 mg = 1 tab(s), Oral, Daily, Refills(s) 0 Start Date: 07/11/22 Status: Ordered CeleXA 40 MG Ora l Tablet Quantity: 0 Refills: 0 Ordered: 28-Mar-2023 DO Active take 0.5 tablet by [facility] every twenty-four hours CeleXA 40 MG 0.5 tablet Orally Once a day Active take 1 tablet by jayro once daily citalopram hydrobromide (CELEXA) 10 mg [...] by mouth in the morning. 30 tablet 11 12/14/2022 12/14/2023 Active SUMAtriptan 100 mg oral [...] Other alf (current) drug therapy; Translations: [OTH ALF CURRENT DRUG THERAPY] Onset: 3 Episodic Other [...] object(s), not elsewhere classified, initial encounter; Translations: [[facility] OT SHRP OB NOT ELSW CLASS INI] [...] Test Name Value Interpretation Reference Range Facility [facility] 07-22-2023 L Specimen: [id number] Received: 07/23/23 Status: SALVADOR Ortiz Num: [id number] Spec Type: Surgical Subm Dr: Cecil Johnson Tissues: A Placenta - 3rd Trimester (Greater than 28 weeks) (PLACENTA A) B Placenta - 3rd Trimester (Greater than 28 weeks) (PLACENTA B) Procedures: HE/7, Gross/Micro L5/2 Age/ Patient Sex Location Account Attending Physician Shanon Louise 23/F LABELL [id number] Cecil Johnson SPEC NUM: [id number] RECD: 07/23/23 STATUS: SALVADOR ORTIZ NUM: [id number] MORAIMA: 07/22/[address]: Cecil Johnson ENTERED: 07/23/[address] [facility] DR: Tristan,Lab SPEC TYPE: Surgical DEPT: [...] placenta B, due to liquefaction of the Rooks jelly - No other significant change except [...] [id number] Received: 07/23/23 Status: SALVADOR Ortiz Num: [id number] Spec Type: Surgical Subm Dr: Cecil Johnson Tissues: A Placenta - 3rd Trimester (Greater than 28 weeks) (PLACENTA A) B Placenta - 3rd Trimester (Greater than 28 weeks) (PLACENTA B) Procedures: RADHA/Rigoberto, Ira/Micro L5/2 Patient: Shanon Louise [id number] (Continued) Specimen: [id number] Received: 07/23/23 (Continued) Gross Description (Continued) Signed (signatur e on file) Chin-Puneet Shea MD 07/25/23 1826 Specimen: [id number] Received: 07/23/23 Status: SALVADOR Parkerleonardo Num: [id number] Spec Type: Surgical Subm Dr: Cecil Johnson Tissues: A Placenta - 3rd Trimester (Greater than 28 weeks) (PLACENTA A) B Placenta - 3rd Trimester (Greater than 28 weeks) (PLACENTA B) Procedures: , Gross/Micro L5/2 Patient: Shanon Louise [id number] (Continued) Specimen: [id number] Received: 07/23/23 (Continued) Gross Description (Continued) and is eccentrically inserted 2 cm from the edge of the placental disc. The maternal surface is multifocally disrupted and is questionably complete. Sectioning demonstrates soft red-brown unremarkable parenchyma averaging 2.5 cm in thickness. [employer] sections are submitted in 3 cassettes as [...] unremarkable parenchyma 2.5 cm in average thickness. [employer] sections are submitted in 4 cassettes as follows: B1 - Umbilical cord with cyst B2 - membranes and decidua basalis B3 - Central placenta, ful (more content not included)... Normal [facility] Blood Pressure Cuff Sizeon 0 03-28-2023 Fall risk assessment a) No falls within the last year [id number] [address] [place] Work Phone: Tobacco use status CPHS a) Yes M G-[id number] [address] [place] Work Phone: Blood Pressure Cuff Size Adult [id number] [address] [place] Work Phone: Blood Pressure Cuff Size Yes [id number] [address] [place] Work Phone: No Panel Informationon 03-28 Normal YA-[id number]-EVA [address] [place] Work Phone: OB Completed scan [...] gestation - rr cfDNA - Referred from [place] because of subchorionic hematomas A targeted anatomic [...] previously been seen by Dr. Gonzales in [place]. Twins are doing well, their growth is [...] EFW (oz) 12 oz EFW by: Hadlock ([id number]) Extended Honey Producer 5.8 mm CM 3.9 mm 16% Nicolaides [...] Amylase [Catalytic activity/Vol] 35 U/L Normal 25-115 [facility] Comment on above: Performed By: #### C CARLYN DE JESUS AMY #### [facility] [address] [place] [address] Dr. Joe Shea CBC AUTO DIFFon 10-28-2022 BASO # 0.1 103/ul Normal 0.0-0.1 [facility] Comment on above: Performed By: #### C CARLYN DE JESUS AMY #### [facility] [address] [place] [address] Dr. Joe Shea Basophils/100 WBC (Bld) 0.4 % Normal 0.2-2.0 [facility] Comment on above: Performed By: #### C CARLYN DE JESUS AMY #### [facility] [address] [place] [address] Dr. Joe Shea EO # 0.1 103/ul Normal 0.0-0.7 [facility] Comment on above: Performed By: #### C MP, LIPA, LIDA #### [facility] [address] [place] [address] Dr. Joe Shea Eosinophils/100 WBC (Bld) 0.8 % Critically low 0.9-7. 0 [facility] Comment on above: Performed By: #### C MP LIPA, LIDA #### [facility] [address] [place] [address] Dr. Joe Shea Erythrocyte distribution width (RBC) [Ratio] 13.2 % Normal 11.0-15.0 [facility] Comment on above: Performed By: #### C MP LIPA, LIDA #### [facility] [address] [place] [address] Dr. Joe Shea Hematocrit (Bld) [Volume fraction] 37.2 % Normal 36.0-48.0 [facility] Comment on above: Performed By: #### C NEAL LIPA, LIDA #### [facility] [address] [place] [address] Dr. Joe Shea Hemoglobin (Bld) [Mass/Vol] 12.0 g/dL Normal 12.0-16.0 [facility] Comment on above: Performed By: #### C NEAL LIPA, LIDA #### [facility] [address] [place] [address] Dr. Joe Shea IG # 0.03 10e3/ul Normal 0.00-0.03 [facility] Comment on above: Performed By: #### C NEAL LIPA, LIDA #### [facility] [address] [place] [address] Dr. Joe Shea IG % 0.2 % Normal 0.0-0.5 [facility] Comment on above: Performed By: #### C MP LIPA, LIDA #### [facility] [address] [place] [address] Dr. Joe Shea LYMPH # 1.9 103/ul Normal 1.2-3.8 [facility] Comment on above: Performed By: #### C MP LIPA, LIDA #### [facility] [address] [place] [address] Dr. Joe Shea Lymphocytes/100 WBC (Bld) 15.2 % Critically low 20.5-6 0.0 [facility] Comment on above: Performed By: #### C CARLYN DE JESUS LIDA #### [facility] [address] [place] [address] Dr. Joe Shea MANUAL DIFF REQ NO Normal [facility] Comment on above: Performed By: #### C CARLYN DE JESUS, LIDA #### [facility] [address] [place] [address] Dr. Joe Shea MCH (RBC) [Entitic mass] 28.4 pg Normal 26.7-34.0 [facility] Comment on above: Performed By: #### C CARLYN DE JESUS, LIDA #### [facility] [address] [place] [address] Dr. Joe Shea MCHC (RBC) [Mass/Vol] 32.3 g/dL Normal 29.9-35.2 [facility] Comment on above: Performed By: #### C HUGO DE JESUSA, LIDA #### [facility] [address] [place] [address] Dr. Joe Shea MCV (RBC) [Entitic vol] 87.9 fL Normal 81.0-99.0 [facility] Comment on above: Performed By: #### C CARLYN DE JESUS, LIDA #### [facility] [address] [place] [address] Dr. Joe Shea MONO # 0.9 103/ul Critically high 0.3-0.8 [facility] Comment on above: Performed By: #### C NEAL LIPA, LIDA #### [facility] [address] [place] [address] Dr. Joe Shea Monocytes/100 WBC (Bld) 7.1 % Normal 1.7-12.0 [facility] Comment on above: Performed By: #### C NEAL LIPA, LIDA #### [facility] [address] [place] [address] Dr. Joe Shea NEUT # 9.5 103/ul Critically high 1.4-6.5 [facility] Comment on above: Performed By: #### C HUGO DE JESUSA, LIDA #### [facility] [address] [place] [address] Dr. Joe Shea Neutrophils/100 WBC (Bld) 76.3 % Critically high 43.0- 75.0 [facility] Comment on above: Performed By: #### C MP, LIPA, LIDA #### [facility] [address] [place] [address] Dr. Joe Shea Platelet mean volume (Bld) [Entitic vol] 10.8 fL Normal 9.5-13.5 [facility] Comment on above: Performed By: #### C MP, LIPA, LIDA #### [facility] [address] [place] [address] Dr. Joe Shea PLT 283 103/ul Normal 150-450 [facility] Comment on above: Performed By: #### C MP, LIPA, LIDA #### [facility] [address] [place] [address] Dr. Joe Shea RBC 4.23 106/ul Normal 4.20-5.40 [facility] Comment on above: Performed By: #### C MP, LIPA, LIDA #### [facility] [address] [place] [address] Dr. Joe Shea WBC 12.5 103/ul Critically high 4.0-11.0 [facility] Comment on above: Performed By: #### C MP, LIPA, LIDA #### [facility] [address] [place] [address] ABD/PELV W CONon [...] Date: 2022-10-28 18:31 Normal [facility] ER URINE PROFILEon 3 Bilirubin Ql (U) Negative Normal NEGATIVE [facility] Comment on above: Performed By: #### L BCL #### [facility] [address] [place] [address] Dr. Joe Shea Clarity (U) CLEAR Normal CLEAR [facility] Comment on above: Performed By: #### L BCLH #### [facility] [address] [place] [address] Dr. Joe Shea Color (U) LT. YELLOW Normal YELLOW [facility] Comment on above: Performed By: #### L BCLH #### [facility] [address] [place] [address] Dr. Joe Shea ERULUKE A micrscopic examination will be performed if indicated. Normal [facility] Comment on above: Performed By: #### L BCLH #### [facility] [address] [place] [address] Dr. Joe Shea Glucose Ql (U) Negative Normal NEGATIVE [facility] Comment on above: Performed By: #### L BCLH #### [facility] [address] [place] [address] Dr. Joe Shea Hemoglobin Ql (U) Negative Normal NEGATIVE [facility] Comment on above: Performed By: #### L BCLH #### [facility] [address] [place] [address] Dr. Joe Shea Ketones Ql (U) Negative Normal NEGATIVE [facility] Comment on above: Performed By: #### L BCLH #### [facility] [address] [place] [address] Dr. Joe Shea LEUKOCYTES TRACE Abnormal NEGATIVE [facility] Comment on above: Performed By: #### L BCLH #### [facility] [address] [place] [address] Dr. Joe Shea Nitrite Ql (U) Negative Normal NEGATIVE [facility] Comment on above: Performed By: #### L BCLH #### [facility] [address] [place] [address] Dr. Joe Shea pH (U) 8.0 [pH] Normal 5-9 [facility] Comment on above: Performed By: #### L BCLH #### [facility] [address] [place] [address] Dr. Joe Shea SPEC GRAVITY 1.015 Normal 1.005-<=1.02 5 [facility] Comment on above: Performed By: #### L BCL #### [facility] [address] [place] [address] Dr. Joe Shea UA PROTEIN Negative Normal NEGATIVE/ TRACE [facility] Comment on above: Performed By: #### L BCL #### [facility] [address] [place] [address] Dr. Joe Shea UR MICRO IND INDICATED Normal [facility] Comment on above: Performed By: #### L BCLH #### [facility] [address] [place] [address] Dr. Joe Shea Urobilinogen Qn (U) 2.0 {Pascual'U}/dL Abnormal 0.2 - 1. 0 [facility] Comment on above: Performed By: #### L BCLH #### [facility] [address] [place] [address] Dr. Joe Shea LIPASEon 10-28-2022 Lipase [Catalytic activity/Vol] 93.0 U/L Normal 73.0-393.0 [facility] Comment on above: Performed By: #### C HUGO DE JESUSA, LIDA #### [facility] [address] [place] [address] Dr. Joe Shea URon 10-28-2022 , QUAL Negative Normal NEGATIVE [facility] Comment on above: Performed By: #### L BCL #### [facility] [address] [place] [address] Dr. Joe Shea PROF 14(COMP METB)on 023 Albumin [Mass/Vol] 4.1 g/dL Normal 3.4-5.0 [facility] Comment on above: Performed By: #### C NEAL LIPA, LIDA #### [facility] [address] [place] [address] Dr. Joe Shea Albumin/Globulin [Mass ratio] 1.2 {ratio} Normal [facility] Comment on above: Performed By: #### C NEAL LIPA, LIDA #### [facility] [address] [place] [address] Dr. Joe Shea ALP [Catalytic activity/Vol] 60 U/L Normal 46-116 [facility] Comment on above: Performed By: #### C NEAL LIPA, LIDA #### [facility] [address] [place] [address] Dr. Joe Shea ALT [Catalytic activity/Vol] 22 U/L Normal 14-59 [facility] Comment on above: Performed By: #### C NEAL LIPA, LIDA #### [facility] [address] [place] [address] Dr. Joe Shea Anion gap [Moles/Vol] 10.2 mmol/L Normal [facility] Comment on above: Performed By: #### C NEAL LIPA, LIDA #### [facility] [address] [place] [address] Dr. Joe Shea AST [Catalytic activity/Vol] 14 U/L Critically low 15-37 [facility] Comment on above: Performed By: #### C MP LIPA, LIDA #### [facility] [address] [address] [address] Joe Shea Bilirubin [Mass/Vol] 0.5 mg/dL Normal 0.2-1.0 [facility] Comment on above: Performed By: #### C NEAL LIPA, LIDA #### [facility] [address] [place] [address] Dr. Joe Shea Calcium [Mass/Vol] 8.9 mg/dL Normal 8.5-10.1 [facility] Comment on above: Performed By: #### C MP, LIPA, LIDA #### [facility] [address] [place] [address] Dr. Joe Shea Chloride [Moles/Vol] 103 mmol/L Normal 98-107 [facility] Comment on above: Performed By: #### C MP LIPA, LIDA #### [facility] [address] [place] [address] Dr. Joe Shea CO2 [Moles/Vol] 28.1 mmol/L Normal 21.0-32.0 [facility] Comment on above: Performed By: #### C MP LIPA, LIDA #### [facility] [address] [place] [address] Dr. Joe Shea Creatinine [Mass/Vol] 0.77 mg/dL Normal 0.55-1.02 [facility] Comment on above: Performed By: #### C ENAL LIPA, LIDA #### [facility] [address] [place] [address] Dr. Joe Shea EGFR-AF MONEGASQUE >60 Normal >=60 [facility] Comment on above: Performed By: #### C MP, LIPA, LIDA #### [facility] [address] [place] [address] Dr. Joe Shea EGFR-NON AF MONEGASQUE >60 Normal >=60 [facility] Comment on above: Performed By: #### C MP, LIPA, LIDA #### [facility] [address] [place] [address] Dr. Joe Shea Globulin (S) [Mass/Vol] 3.5 g/dL Normal [facility] Comment on above: Performed By: #### C MP, LIPA, LIDA #### [facility] [address] [place] [address] Dr. Joe Shea Glucose [Mass/Vol] 85 mg/dL Normal 74-106 [facility] Comment on above: Performed By: #### C MP LIPA, LIDA #### [facility] [address] [place] [address] Dr. Joe Shea Potassium [Moles/Vol] 3.3 mmol/L Critically low 3.5-5.1 [facility] Comment on above: Performed By: #### C MP LIPA, LIDA #### [facility] [address] [place] [address] Dr. Joe Shea Protein [Mass/Vol] 7.6 g/dL Normal 6.4-8.[address] [facility] Comment on above: Performed By: #### C NEAL LIPA, LIDA #### [facility] [address] [place] [address] Dr. Joe Shea Sodium [Moles/Vol] 138 mmol/L Normal 136-[address] [facility] Comment on above: Performed By: #### C NEAL LIPA, LIDA #### [facility] [address] [place] [address] Dr. Joe Shea Urea nitrogen [Mass/Vol] 6.0 mg/dL Critically low 7.0-18. 0 [facility] Comment on above: Performed By: #### C NEAL LIPA, LIDA #### [facility] [address] [place] [address] Dr. Joe Shea Urea nitrogen/Creatinine [Mass ratio] 7.8 mg/mg Normal [facility] Comment on above: Performed By: #### C NEAL LIPA, LIDA #### [facility] [address] [place] [address] Dr. Joe Shea URINE MICROSCOPIC ONLYon BACTERIA NONE SEEN Normal NONE SEEN [facility] Comment on above: Performed By: #### L BCLH #### [facility] [address] [place] [address] Dr. Joe Shea Bacteria identified Cx Nom (U) NOT INDICATED Normal [facility] Comment on above: Performed By: #### L BCLH #### [facility] [address] [place] [address] Dr. Joe Shea CAST NONE SEEN Normal NONE SEEN [facility] Comment on above: Performed By: #### L BCLH #### [facility] [address] [place] [address] Dr. Joe Shea Crystals LM Nom (Urine sed) NONE SEEN Normal NONE SEEN [facility] Comment on above: Performed By: #### L BCLH #### [facility] [address] [place] [address] Dr. Joe Shea Epithelial cells LM Ql (Urine sed) FEW Abnormal NONE SEEN /RARE [facility] Comment on above: Performed By: #### L BCLH #### [facility] [address] [place] [address] Dr. Joe Shea MUCOUS NONE SEEN Normal NONE SEEN [facility] Comment on above: Performed By: #### L BCLH #### [facility] [address] [place] [address] Dr. Joe Shea RBC NONE SEEN Abnormal 0-2 [facility] Comment on above: Performed By: #### L BCLH #### [facility] [address] [place] [address] Dr. Joe Shea WBC 0-2 Abnormal NONE SEEN [facility] Comment on above: Performed By: #### L BCL #### [facility] [address] [place] [address] Dr. Joe Shea LACTOFERRIN FECAL QUANTon Lactoferrin, Fecal, Quant. <1.00 Normal 0.00-7.24 [facility] Comment on above: Result Comment: Re [...] By: #### D TRESA #### [facility] [address] [address] [address] Joe Shea CALPROTECTIN, FECALon 2022 Calprotectin, Fecal 31 ug/g Normal 0-120 [facility] Comment on above: Result Comment: Conc entration Interpretation Follow-Up <16 - 50 ug/g Normal None >50 -120 ug/g Borderline Re-evaluate in 4-6 weeks >120 ug/g Abnormal Repeat as clinically indicated Performed By: #### C MP, LIPA, LIDA #### [facility] [address] [address] [address] Joe Shea BOWEL DISORDERS EVALUATION R ULE-OUT CASCon 09-25-2022 Antigliadin 8 units Normal 0-19 [facility] Comment on above: Result Comment: Nega tive 0 - 19 Weak Positive 20 - 30 Moderate to Strong Positive >30 . Performed By: #### C BC #### [facility] [address] [address] [address] Joe Shea Atypical pANCA Negative Normal Negative [facility] Comment on above: Performed By: #### C BC #### [facility] [address] [address] [address] Joe Shea Note: [place] continues Normal [facility] Comment on above: Performed By: #### C BC #### [facility] [address] [address] [address] Joe Shea Note: Comment Normal [facility] Comment on above: Result Comment: Sugg estive of irritable bowel syndrome (IBS). Careful evaluation of the patient's history, physical examination, and application of [place] III diagnostic criteria may help to rule in or rule out the diagnosis of IBS. Subsequent testing for Fecal Calprotectin (701124) may be recommended. If IBD is strongly suspected, subsequent testing with the Crohn's Disease Prognostic Profile (375296) that includes anti- glycan antibodies AMCA, ALCA, ACCA, and Zulema may aid in differential diagnosis. Performed By: #### C BC #### [facility] [address] [address] [address] Joe Shea Saccharomyces Cer. IgG <20.0 Normal 0.0-24.9 [facility] [facility] Comment on above: Result Comment: Nega tive <20.0 Equivocal 20.1 - 24.9 Positive >or= 25.0 Performed By: #### C BC #### [facility] [address] [place] [address] Dr. Joe Shea tTG/DGP SCR Negative Normal Negative [facility] Comment on above: Result Comment: Ef fective September 21, 2022 this profile will be made non-orderable due to non-availability of reagents for tTG/DGP Combo. No replacement number is available at this time. For further information, please contact your local [facility] [employer] [facility]. Performed By: #### C BC #### [facility] [address] [place] [address] Dr. Joe Shea CBC AUTO DIFFon 09-19-2022 BASO # 0.1 103/ul Normal 0.0-0.1 [facility] Comment on above: Performed By: #### D LUIS ARMANDOUL #### [facility] [address] [place] [address] Dr. Joe Shea Basophils/100 WBC (Bld) 0.9 % Normal 0.2-2.0 [facility] Comment on above: Performed By: #### D LUIS ARMANDOUL #### [facility] [address] [place] [address] Dr. Joe Shea EO # 0.2 103/ul Normal 0.0-0.7 [facility] Comment on above: Performed By: #### D HEASUL #### [facility] [address] [place] [address] Dr. Joe Shea Eosinophils/100 WBC (Bld) 2.4 % Normal 0.9-7.0 [facility] Comment on above: Performed By: #### D HEJESSICAUL #### [facility] [address] [place] [address] Dr. Joe Shea Erythrocyte distribution width (RBC) [Ratio] 13.2 % Normal 11.0-15.0 [facility] Comment on above: Performed By: #### Althea GTZ #### [facility] [address] [address] [address] Joe Shea Hematocrit (Bld) [Volume fraction] 38.3 % Normal 36.0-48.0 [facility] Comment on above: Performed By: #### Althea GTZ #### [facility] [address] [place] [address] Dr. Joe Shea Hemoglobin (Bld) [Mass/Vol] 12.3 g/dL Normal 12.0-16.0 [facility] Comment on above: Performed By: #### Althea GTZ #### [facility] [address] [place] [address] Dr. Joe Shea IG # 0.02 10e3/ul Normal 0.00-0.03 [facility] Comment on above: Performed By: #### Althea GTZ #### [facility] [address] [place] [address] Dr. Joe Shea IG % 0.3 % Normal 0.0-0.5 [facility] Comment on above: Performed By: #### Althea GTZ #### [facility] [address] [place] [address] Dr. Joe Shea LYMPH # 1.7 103/ul Normal 1.2-3.8 [facility] Comment on above: Performed By: #### Althea GTZ #### [facility] [address] [place] [address] Dr. Joe Shea Lymphocytes/100 WBC (Bld) 24.6 % Normal 20.5-60.0 [facility] Comment on above: Performed By: #### Althea GTZ #### [facility] [address] [place] [address] Dr. Joe Shea MANUAL DIFF REQ NO Normal [facility] Comment on above: Performed By: #### Althea GTZ #### [facility] [address] [place] [address] Dr. Joe Shea MCH (RBC) [Entitic mass] 28.1 pg Normal 26.7-34.0 [facility] Comment on above: Performed By: #### Althea GTZ #### [facility] [address] [address] [address] Joe Shea MCHC (RBC) [Mass/Vol] 32.1 g/dL Normal 29.9-35.2 [facility] Comment on above: Performed By: #### Althea GTZ #### [facility] [address] [place] [address] Dr. Joe Shea MCV (RBC) [Entitic vol] 87.6 fL Normal 81.0-99.0 [facility] Comment on above: Performed By: #### Althea GTZ #### [facility] [address] [place] [address] Dr. Joe Shea MONO # 0.4 103/ul Normal 0.3-0.8 [facility] Comment on above: Performed By: #### Althea GTZ #### [facility] [address] [place] [address] Dr. Joe Shea Monocytes/100 WBC (Bld) 5.5 % Normal 1.7-12.0 [facility] Comment on above: Performed By: #### Althea GTZ #### [facility] [address] [place] [address] Dr. Joe Shea NEUT # 4.7 103/ul Normal 1.4-6.5 [facility] Comment on above: Performed By: #### Althea GTZ #### [facility] [address] [place] [address] Dr. Joe Shea Neutrophils/100 WBC (Bld) 66.3 % Normal 43.0-75.0 [facility] Comment on above: Performed By: #### Althea GTZ #### [facility] [address] [place] [address] Dr. Joe Shea Platelet mean volume (Bld) [Entitic vol] 11.4 fL Normal 9.5-13.5 [facility] Comment on above: Performed By: #### Althea GTZ #### [facility] [address] [place] [address] Dr. Joe Shea PLT 275 103/ul Normal 150-450 [facility] Comment on above: Performed By: #### D TRESA #### [facility] [address] [place] [address] Dr. Joe Shea RBC 4.37 106/ul Normal 4.20-5.40 [facility] Comment on above: Performed By: #### D TRESA #### [facility] [address] [address] [address] Joe Shea WBC 7.0 103/ul Normal 4.0-11.0 [facility] Comment on above: Performed By: #### D TRESA #### [facility] [address] [place] [address] Dr. Joe Shea PROF 14(COMP METB)on 023 Albumin [Mass/Vol] 4.4 g/dL Normal 3.4-5.0 [facility] Comment on above: Performed By: #### L DAIN #### [facility] [address] [place] [address] Dr. Joe Shea Albumin/Globulin [Mass ratio] 1.4 {ratio} Normal [facility] Comment on above: Performed By: #### L DAIN #### [facility] [address] [place] [address] Dr. Joe Shea ALP [Catalytic activity/Vol] 51 U/L Normal 46-116 [facility] Comment on above: Performed By: #### L DAIN #### [facility] [address] [place] [address] Dr. Joe Shea ALT [Catalytic activity/Vol] 20 U/L Normal 14-59 [facility] Comment on above: Performed By: #### L BARRY #### [facility] [address] [place] [address] Dr. Joe Shea Anion gap [Moles/Vol] 11.7 mmol/L Normal [facility] Comment on above: Performed By: #### L DAIN #### [facility] [address] [place] [address] Dr. Joe Shea AST [Catalytic activity/Vol] 17 U/L Normal 15-37 [facility] Comment on above: Performed By: #### L BCLH #### [facility] [address] [address] [address] Joe Shea Bilirubin [Mass/Vol] 0.4 mg/dL Normal 0.2-1.0 [facility] Comment on above: Performed By: #### L BCLH #### [facility] [address] [address] [address] Joe Shea Calcium [Mass/Vol] 9.3 mg/dL Normal 8.5-10.1 [facility] Comment on above: Performed By: #### L BCLH #### [facility] [address] [address] [address] Joe Shea Chloride [Moles/Vol] 104 mmol/L Normal 98-107 [facility] Comment on above: Performed By: #### L BCLH #### [facility] [address] [address] [address] Joe Shea CO2 [Moles/Vol] 28.5 mmol/L Normal 21.0-32.0 [facility] Comment on above: Performed By: #### L BCLH #### [facility] [address] [place] [address] Dr. Joe Shea Creatinine [Mass/Vol] 0.55 mg/dL Normal 0.55-1.02 [facility] Comment on above: Performed By: #### L BCLH #### [facility] [address] [place] [address] Dr. Joe Shea EGFR-AF MONEGASQUE >60 Normal >=60 [facility] Comment on above: Performed By: #### L BCLH #### [facility] [address] [address] [address] Joe Shea EGFR-NON AF MONEGASQUE >60 Normal >=60 [facility] Comment on above: Performed By: #### L BCLH #### [facility] [address] [address] [address] Joe Shea Globulin (S) [Mass/Vol] 3.1 g/dL Normal [facility] Comment on above: Performed By: #### L BCLH #### [facility] [address] [address] [address] Joe Shea Glucose [Mass/Vol] 90 mg/dL Normal 74-[address] [facility] Comment on above: Performed By: #### L BCLH #### [facility] [address] [address] [address] Joe Seha Potassium [Moles/Vol] 4.2 mmol/L Normal 3.5-5.1 [facility] Comment on above: Performed By: #### L BCLH #### [facility] [address] [address] [address] Joe Shea Protein [Mass/Vol] 7.5 g/dL Normal 6.4-8.2 [facility] Comment on above: Performed By: #### L BCLH #### [facility] [address] [address] [address] Joe Shea Sodium [Moles/Vol] 140 mmol/L Normal 136-145 [facility] Comment on above: Performed By: #### L BCLH #### [facility] [address] [address] [address] Joe Shea Urea nitrogen [Mass/Vol] 6.0 mg/dL Critically low 7.0-18. 0 [facility] Comment on above: Performed By: #### L BCLH #### [facility] [address] [address] [address] Joe Shea Urea nitrogen/Creatinine [Mass ratio] 10.9 mg/mg Normal [facility] Comment on above: Performed By: #### L BCLH #### [facility] [address] [address] [address] Joe Shea PROTIMEon 09-19-2022 INR Coag (PPP) [Relative time] 1.08 {INR} Normal [facility] Comment on above: Performed By: #### L BCLH #### [facility] [address] [address] [address] Joe Shea INR GUIDELINES SEE BELOW Normal [facility] Comment on above: Result Comment: CHICA RED INR: 2.0 - 3.0 CONDITIONS NOT LISTED BELOW 2.5 - 3.5 FOR PROSTHETIC HEART VALVE REPLACEMENT 2.5 - 3.5 RECURRENT THROMBOSIS Performed By: #### L DAIN #### [facility] [address] [place] [address] Dr. Joe Shea PT Coag (PPP) [Time] 11.4 s Normal 9.0-11.6 [facility] Comment on above: Performed By: #### L BARRY #### [facility] [address] [place] [address] Dr. Joe Shea TSHon 09-19-2022 TSH 0.957 uIU/mL Normal 0.358-3.740 [facility] Comment on above: Performed By: #### L BARRY #### [facility] [address] [place] [address] Dr. Joe Shea Pre-Certification Formon Pre-Certification Form [id number]#1.00CD:127 Normal [facility] Consent for Procedure/Surger yon 07-23-2022 Consent for Procedure/Surgery [id number]#[id number]:127 Normal [facility] Facesheeton 07-19-2022 Facesheet [id number] 71#[id number]:127 Normal [facility] CBC AUTO DIFFon 07-06-2022 BASO # 0.1 103/ul Normal 0.0-0.1 [facility] Comment on above: Performed By: #### C MP, LIPA, LIDA #### [facility] [address] [place] [address] Dr. Joe Shea Basophils/100 WBC (Bld) 0.8 % Normal 0.2-2.0 [facility] Comment on above: Performed By: #### C MP, LIPA, LIDA #### [facility] [address] [place] [address] Dr. Joe Shea EO # 0.4 103/ul Normal 0.0-0.7 [facility] Comment on above: Performed By: #### C CARLYN DE JESUS, LIDA #### [facility] [address] [place] [address] Dr. Joe Shea Eosinophils/100 WBC (Bld) 4.2 % Normal 0.9-7.0 [facility] Comment on above: Performed By: #### C HUGO DE JESUSA, LIDA #### [facility] [address] [place] [address] Dr. Joe Shea Erythrocyte distribution width (RBC) [Ratio] 13.5 % Normal 11.0-15.0 [facility] Comment on above: Performed By: #### C CARLYN DE JESUS, LIDA #### [facility] [address] [place] [address] Dr. Joe Shea Hematocrit (Bld) [Volume fraction] 36.8 % Normal 36.0-48.0 [facility] Comment on above: Performed By: #### C CARLYN DE JESUS, LIDA #### [facility] [address] [place] [address] Dr. Joe Shea Hemoglobin (Bld) [Mass/Vol] 12.2 g/dL Normal 12.0-16.0 [facility] Comment on above: Performed By: #### C CARLYN DE JESUS, LIDA #### [facility] [address] [place] [address] Dr. Joe Shea IG # 0.02 10e3/ul Normal 0.00-0.03 [facility] Comment on above: Performed By: #### C HUGO DE JESUSA, LIDA #### [facility] [address] [place] [address] Dr. Joe Shea IG % 0.2 % Normal 0.0-0.5 [facility] Comment on above: Performed By: #### C CARLYN DE JESUS, LIDA #### [facility] [address] [place] [address] Dr. Joe Shea LYMPH # 2.1 103/ul Normal 1.2-3.8 [facility] Comment on above: Performed By: #### C HUGO DE JESUSA, LIDA #### [facility] [address] [address] [address] Joe Shea Lymphocytes/100 WBC (Bld) 20.3 % Critically low 20.5-6 0.0 [facility] Comment on above: Performed By: #### C MP, LIPA, LIDA #### [facility] [address] [address] [address] Joe Shea MANUAL DIFF REQ NO Normal [facility] Comment on above: Performed By: #### C MP, LIPA, LIDA #### [facility] [address] [place] [address] Dr. Joe Shea MCH (RBC) [Entitic mass] 28.6 pg Normal 26.7-34.0 [facility] Comment on above: Performed By: #### C MP, LIPA, LIDA #### [facility] [address] [place] [address] Dr. Joe Shea MCHC (RBC) [Mass/Vol] 33.2 g/dL Normal 29.9-35.2 [facility] Comment on above: Performed By: #### C MP, LIPA, LIDA #### [facility] [address] [place] [address] Dr. Joe Shea MCV (RBC) [Entitic vol] 86.4 fL Normal 81.0-99.0 [facility] Comment on above: Performed By: #### C MP, LIPA, LIDA #### [facility] [address] [place] [address] Dr. Joe Shea MONO # 0.6 103/ul Normal 0.3-0.8 [facility] Comment on above: Performed By: #### C MP, LIPA, LIDA #### [facility] [address] [place] [address] Dr. Joe Shea Monocytes/100 WBC (Bld) 5.5 % Normal 1.7-12.0 [facility] Comment on above: Performed By: #### C MP, LIPA, LIDA #### [facility] [address] [place] [address] Dr. Joe Shea NEUT # 7.2 103/ul Critically high 1.4-6.5 [facility] Comment on above: Performed By: #### C CARLYN DE JESUS AMY #### [facility] [address] [place] [address] Dr. Joe Shea Neutrophils/100 WBC (Bld) 69.0 % Normal 43.0-75.0 [facility] Comment on above: Performed By: #### C CARLYN DE JESUS AMY #### [facility] [address] [place] [address] Dr. Joe Shea Platelet mean volume (Bld) [Entitic vol] 10.8 fL Normal 9.5-13.5 [facility] Comment on above: Performed By: #### C CARLYN DE JESUS AMY #### [facility] [address] [place] [address] Dr. Joe Shea PLT 316 103/ul Normal 150-450 [facility] Comment on above: Performed By: #### C CARLYN DE JESUS AMY #### [facility] [address] [place] [address] Dr. Joe Shea RBC 4.26 106/ul Normal 4.20-5.40 [facility] Comment on above: Performed By: #### C CARLYN DE JESUS AMY #### [facility] [address] [place] [address] Dr. Joe Shea WBC 10.4 103/ul Normal 4.0-11.0 [facility] Comment on above: Performed By: #### C CARLYN DE JESUS AMY #### [facility] [address] [place] [address] Dr. Joe Shea PREG QUANT HCGon 07-06-2022 HCG QUANT <1 Normal [facility] Comment on above: Performed By: #### C CARLYN DE JESUS AMY #### [facility] [address] [place] [address] Dr. Joe Shea HCG RANGE SEE BELOW Normal [facility] Comment on above: Result Comment: 5-50 0.2-1 WEEK 50-500 1-2 WEEKS 100-5,000 2-3 WEEKS 500-10,000 3-4 WEEKS 1,000-50,000 4-5 WEEKS 10,000-100,000 5-6 WEEKS 15,000-200,000 6-8 WEEKS 10,000-100,000 2-3 MONTHS Performed By: #### C CARLYN DE JESUS AMY #### [facility] [address] [place], [place] [address] Dr. Joe Shea HEPATITIS C ANTIBODYon 06-26 Hep C Virus Ab <0.1 Normal 0.0-0.9 [facility] Comment on above: Result [...] Hepatitis C Virus (HCV) RNA, Diagnosis, MEGAN (526589) and Hepatitis C Virus (HCV) Antibody with reflex to Quantitative Real-time PCR ([id number]). Performed By: #### L [facility] #### [facility] [address] [place], [place] [address] Dr. Joe Shea Covid-19 PCR (CVDTB)on 05-31 SARS-CoV-2 (COVID-19) RNA MEGAN+probe Ql (Unsp spec) Not detected Normal NOT DETECTED [facility] Comment on above: Result Comment: This test is not yet approved or cleared by the [place] FDA. When there are no FDA-approved or cleared tests available, and other criteria are met, FDA can make tests available under an emergency access mechanism called an Emergency Use Authorization (EUA). The EUA for this test is supported by the [employer] of Health and Human Service's (HHS's) declaration [...] SARS-CoV-2. Performed By: #### C VDTBH #### [facility] [address] [place] [address] Dr. Joe Shea HEP B SURFACE ANTIGEN SCREEN on 06-12-2022 HBsAg Screen Negative Normal Negative [facility] Comment on above: Performed By: #### D HEASUL #### [facility] [address] [place] [address] Dr. Joe Shea HIV 1 AND 2 WITH REFLEXon HIV Screen 4th Generation wRfx Non-Reactive Normal Non Reactive [facility] Comment on above: Result Comment: HIV Negative HIV-1/HIV-2 antibodies and HIV-1 p24 antigen were NOT detected. There is no laboratory evidence of HIV infection. Performed By: #### C NEAL LIPLIDA Kong #### [facility] [address] [place] [address] Dr. Joe Shea RPR QUANTon 06-12-2022 Rapid Plasma Reagin, Quant Non-Reactive Normal NonRea< 1:1 [facility] Comment on above: Result Comment: Plea se Note: This test does not meet current guidelines for screening and diagnosis of syphilis. This test is intended for following treatment response in patients being treated for syphilis infection. To screen for syphilis infection, a reflex cascade that includes both RPR and a treponema-specific assay should be utilized, such as Treponema pallidum (Syphilis) Screening [place] (204590) or Rapid Plasma Reagin (RPR) Test With Reflex to Quantitative RPR and Confirmatory Treponema pallidum Antibodies ([id number]). Performed By: #### C MP, LIPA, LIDA #### [facility] [address] [place] [address] Dr. Joe Shea Physician Referralon 022 Physician Referral [id number]#[id number]:127 Normal [facility] US PELVIS AND TRANSVAGon US PELVIS [...] Date: 2022-05-31 17:18 Normal [facility] AMYLASEon 05-23-2022 Amylase [Catalytic activity/Vol] 24 U/L Critically low 25-115 [facility] Comment on above: Performed By: #### C MP, LIPA, LIDA #### [facility] [address] [place] [address] Dr. Joe Shea CBC AUTO DIFFon 05-23-2022 Eosinophils/100 WBC (Bld) 1.5 % Normal 0.9-7.0 [facility] Comment on above: Performed By: #### L [facility] #### [facility] [address] [place] [address] Dr. Joe Shea Erythrocyte distribution width (RBC) [Ratio] 13.5 % Normal 11.0-15.0 [facility] Comment on above: Performed By: #### L BCL #### [facility] [address] [place] [address] Dr. Joe Shea Hematocrit (Bld) [Volume fraction] 33.0 % Critically low 36.0-48.0 [facility] Comment on above: Performed By: #### L BCL #### [facility] [address] [place] [address] Dr. Joe Shea Hemoglobin (Bld) [Mass/Vol] 10.7 g/dL Critically low 12.0-16.0 [facility] Comment on above: Performed By: #### L BCLH #### [facility] [address] [address] [address] Joe Shea LYMPH # 1.2 103/ul Normal 1.2-3.8 [facility] Comment on above: Performed By: #### L BCLH #### [facility] [address] [address] [address] Joe Shea Lymphocytes/100 WBC (Bld) 20.2 % Critically low 20.5-6 0.0 [facility] Comment on above: Performed By: #### L BCLH #### [facility] [address] [place] [address] Dr. Joe Shea MCH (RBC) [Entitic mass] 28.0 pg Normal 26.7-34.0 [facility] Comment on above: Performed By: #### L BCLH #### [facility] [address] [place] [address] Dr. Joe Shea MCHC (RBC) [Mass/Vol] 32.4 g/dL Normal 29.9-35.2 [facility] Comment on above: Performed By: #### L BCLH #### [facility] [address] [place] [address] Dr. Joe Shea Monocytes/100 WBC (Bld) 7.9 % Normal 1.7-12.0 [facility] Comment on above: Performed By: #### L BCLH #### [facility] [address] [place] [address] Dr. Joe Shea Neutrophils/100 WBC (Bld) 69.9 % Normal 43.0-75.0 [facility] Comment on above: Performed By: #### L BCLH #### [facility] [address] [place] [address] Dr. Joe Shea Platelet mean volume (Bld) [Entitic vol] 10.6 fL Normal 9.5-13.5 [facility] Comment on above: Performed By: #### L BCLH #### [facility] [address] [place] [address] Dr. Joe Shea PLT 233 103/ul Normal 150-450 [facility] Comment on above: Performed By: #### L BCLH #### [facility] [address] [place] [address] Dr. Joe Shea RBC 3.82 106/ul Critically low 4.20-5.40 [facility] Comment on above: Performed By: #### L BCLH #### [facility] [address] [place] [address] Dr. Joe Shea WBC 6.1 103/ul Normal 4.0-11.0 [facility] Comment on above: Performed By: #### L BCLH #### [facility] [address] [place] [address] Dr. Joe Shea BASO # 0.0 103/ul Normal 0.0-0.1 [facility] Comment on above: Performed By: #### L BCLH #### [facility] [address] [place] [address] Dr. Joe Shea Performed By: #### C NEAL LIPA, LIDA #### [facility] [address] [place] [address] Dr. Joe Shea Basophils/100 WBC (Bld) 0.3 % Normal 0.2-2.0 [facility] Comment on above: Performed By: #### L BCLH #### [facility] [address] [place] [address] Dr. Joe Shea Performed By: #### C MP LIPA, LIDA #### [facility] [address] [place] [address] Dr. Joe Shea EO # 0.1 103/ul Normal 0.0-0.7 [facility] Comment on above: Performed By: #### L BCLH #### [facility] [address] [place] [address] Dr. Joe Shea Performed By: #### C MP LIPA, LIDA #### [facility] [address] [place] [address] Dr. Joe Shea Eosinophils/100 WBC (Bld) 1.9 % Normal 0.9-7.0 [facility] Comment on above: Performed By: #### C MP LIPA, LIDA #### [facility] [address] [place] [address] Dr. Joe Shea Erythrocyte distribution width (RBC) [Ratio] 13.4 % Normal 11.0-15.0 [facility] Comment on above: Performed By: #### C NEAL LIPA, LIDA #### [facility] [address] [place] [address] Dr. Joe Shea Hematocrit (Bld) [Volume fraction] 32.3 % Critically low 36.0-48.0 [facility] Comment on above: Performed By: #### C NEAL LIPA, LIDA #### [facility] [address] [place] [address] Dr. Joe Shea Hemoglobin (Bld) [Mass/Vol] 10.6 g/dL Critically low 12.0-16.0 [facility] Comment on above: Performed By: #### C NEAL LIPA, LIDA #### [facility] [address] [place] [address] Dr. Joe Shea IG # 0.01 10e3/ul Normal 0.00-0.03 [facility] Comment on above: Performed By: #### L BCL #### [facility] [address] [place] [address] Dr. Joe Shea Performed By: #### C HUGO DE JESUSA, LIDA #### [facility] [address] [place] [address] Dr. Joe Shea IG % 0.2 % Normal 0.0-0.5 [facility] Comment on above: Performed By: #### L BCLH #### [facility] [address] [place] [address] Dr. Joe Shae Performed By: #### C HUGO DE JESUSA, LIDA #### [facility] [address] [place] [address] Dr. Joe Shea LYMPH # 1.0 103/ul Critically low 1.2-3.8 [facility] Comment on above: Performed By: #### C NEAL LIPA, LIDA #### [facility] [address] [place] [address] Dr. Joe Shea Lymphocytes/100 WBC (Bld) 16.6 % Critically low 20.5-6 0.0 [facility] Comment on above: Performed By: #### C MP, LIPA, LIDA #### [facility] [address] [place] [address] Dr. Joe Shea MANUAL DIFF REQ NO Normal [facility] Comment on above: Performed By: #### L BCLH #### [facility] [address] [place] [address] Dr. Joe Shea Performed By: #### C MP, LIPA, LIDA #### [facility] [address] [place] [address] Dr. Joe Shea MCH (RBC) [Entitic mass] 28.3 pg Normal 26.7-34.0 [facility] Comment on above: Performed By: #### C MP, LIPA, LIDA #### [facility] [address] [place] [address] Dr. Joe Shea MCHC (RBC) [Mass/Vol] 32.8 g/dL Normal 29.9-35.2 [facility] Comment on above: Performed By: #### C MP, LIPA, LIDA #### [facility] [address] [place] [address] Dr. Joe Shea MCV (RBC) [Entitic vol] 86.4 fL Normal 81.0-99.0 [facility] Comment on above: Performed By: #### L BCLH #### [facility] [address] [place] [address] Dr. Joe Shea Performed By: #### C MP, LIPA, LIDA #### [facility] [address] [place] [address] Dr. Joe Shea MONO # 0.5 103/ul Normal 0.3-0.8 [facility] Comment on above: Performed By: #### L BCLH #### [facility] [address] [place] [address] Dr. Joe Shea Performed By: #### C MP, LIPA, LIDA #### [facility] [address] [place] [address] Dr. Joe Shea Monocytes/100 WBC (Bld) 9.1 % Normal 1.7-12.0 [facility] Comment on above: Performed By: #### C HUGO DE JESUSA, LIDA #### [facility] [address] [place] [address] Dr. Joe Shea NEUT # 4.3 103/ul Normal 1.4-6.5 [facility] Comment on above: Performed By: #### L BCLH #### [facility] [address] [place] [address] Dr. Joe Shea Performed By: #### C NEAL LIPA, LIDA #### [facility] [address] [place] [address] Dr. Joe Shea Neutrophils/100 WBC (Bld) 71.9 % Normal 43.0-75.0 [facility] Comment on above: Performed By: #### C NEAL LIPA, LIDA #### [facility] [address] [place] [address] Dr. Joe Shea Platelet mean volume (Bld) [Entitic vol] 11.0 fL Normal 9.5-13.5 [facility] Comment on above: Performed By: #### C HUGO DE JESUSA, LIDA #### [facility] [address] [place] [address] Dr. Joe Shea PLT 224 103/ul Normal 150-450 [facility] Comment on above: Performed By: #### C NEAL LIPA, LIDA #### [facility] [address] [place] [address] Dr. Joe Shea RBC 3.74 106/ul Critically low 4.20-5.[address] [facility] Comment on above: Performed By: #### C MP LIPA, LIDA #### [facility] [address] [place] [address] Dr. Joe Shea WBC 5.9 103/ul Normal 4.0-11.0 [facility] Comment on above: Performed By: #### C MP LIPA, LIDA #### [facility] [address] [place] [address] Dr. Joe MOORE URINE PROFILEon 2 Bilirubin Ql (U) Negative Normal NEGATIVE [facility] Comment on above: Performed By: #### L BCLH #### [facility] [address] [place] [address] Dr. Joe Shea Clarity (U) CLEAR Normal CLEAR [facility] Comment on above: Performed By: #### L BCLH #### [facility] [address] [place] [address] Dr. Joe Shea Color (U) LT. YELLOW Normal YELLOW [facility] Comment on above: Performed By: #### L BCLH #### [facility] [address] [place] [address] Dr. Joe YUNG A micrscopic examination will be performed if indicated. Normal [facility] Comment on above: Performed By: #### L BCLH #### [facility] [address] [place] [address] Dr. Joe Shea Glucose Ql (U) Negative Normal NEGATIVE [facility] Comment on above: Performed By: #### L BCLH #### [facility] [address] [place] [address] Dr. Joe Shea Hemoglobin Ql (U) Negative Normal NEGATIVE [facility] Comment on above: Performed By: #### L BCLH #### [facility] [address] [place] [address] Dr. Joe Shea Ketones Ql (U) Negative Normal NEGATIVE [facility] Comment on above: Performed By: #### L BCLH #### [facility] [address] [place] [address] Dr. Joe Shea LEUKOCYTES Negative Normal NEGATIVE [facility] Comment on above: Performed By: #### L BCLH #### [facility] [address] [place] [address] Dr. Joe Shea Nitrite Ql (U) Negative Normal NEGATIVE [facility] Comment on above: Performed By: #### L BCLH #### [facility] [address] [place] [address] Dr. Joe Shea pH (U) 5.5 [pH] Normal 5-9 [facility] Comment on above: Performed By: #### L BCL #### [facility] [address] [place] [address] Dr. Joe Shea SPEC GRAVITY 1.020 Normal 1.005-<=1.02 5 [facility] Comment on above: Performed By: #### L BCL #### [facility] [address] [place] [address] Dr. Joe Shea UA PROTEIN Negative Normal NEGATIVE/ TRACE [facility] Comment on above: Performed By: #### L BCL #### [facility] [address] [place] [address] Dr. Joe Shea UR MICRO IND NOT INDICATED Normal [facility] Comment on above: Performed By: #### L BCL #### [facility] [address] [place] [address] Dr. Joe Shea Urobilinogen Qn (U) 0.2 {Pascual'U}/dL Normal 0.2 - 1. 0 [facility] Comment on above: Performed By: #### L BCL #### [facility] [address] [place] [address] Dr. Joe Shea LIPASEon 05-23-2022 Lipase [Catalytic activity/Vol] 63.0 U/L Critically low 73.0-393.0 [facility] Comment on above: Performed By: #### C MP, LIPA, LIDA #### [facility] [address] [place] [address] Dr. Joe Shea URon 05-23-2022 , QUAL Negative Normal NEGATIVE [facility] Comment on above: Performed By: #### C BC #### [facility] [address] [place] [address] Dr. Joe Shea PROF 14(COMP METB)on 022 Albumin [Mass/Vol] 3.7 g/dL Normal 3.4-5.0 [facility] Comment on above: Performed By: #### C MP, LIPA, LIDA #### [facility] [address] [place] [address] Dr. Joe Shea Albumin/Globulin [Mass ratio] 1.4 {ratio} Normal [facility] Comment on above: Performed By: #### C CARLYN DE JESUS, LIDA #### [facility] [address] [place] [address] Dr. Joe Shea ALP [Catalytic activity/Vol] 44 U/L Critically low 46-116 [facility] Comment on above: Performed By: #### C HUGO DE JESUSA, LIDA #### [facility] [address] [place] [address] Dr. Joe Shea ALT [Catalytic activity/Vol] 24 U/L Normal 14-59 [facility] Comment on above: Performed By: #### C CARLYN DE JESUS, LIDA #### [facility] [address] [place] [address] Dr. Joe Shea Anion gap [Moles/Vol] 9.1 mmol/L Normal [facility] Comment on above: Performed By: #### C HUGO DE JESUSA, LIDA #### [facility] [address] [place] [address] Dr. Joe Shea AST [Catalytic activity/Vol] 18 U/L Normal 15-37 [facility] Comment on above: Performed By: #### C CARLYN DE JESUS, LIDA #### [facility] [address] [place] [address] Dr. Joe Shea Bilirubin [Mass/Vol] 0.2 mg/dL Normal 0.2-1.0 [facility] Comment on above: Performed By: #### C HUGO DE JESUSA, LIDA #### [facility] [address] [place] [address] Dr. Joe Shea Calcium [Mass/Vol] 8.3 mg/dL Critically low 8.5-10.1 [facility] Comment on above: Performed By: #### C HUGO DE JESUSA, LIDA #### [facility] [address] [place] [address] Dr. Joe Shea Chloride [Moles/Vol] 105 mmol/L Normal 98-107 [facility] Comment on above: Performed By: #### C NEAL LIPA, LIDA #### [facility] [address] [address] [address] Joe Shea CO2 [Moles/Vol] 29.7 mmol/L Normal 21.0-32.0 [facility] Comment on above: Performed By: #### C MP, LIPA, LIDA #### [facility] [address] [address] [address] Joe Shea Creatinine [Mass/Vol] 0.61 mg/dL Normal 0.55-1.02 [facility] Comment on above: Performed By: #### C MP, LIPA, LIDA #### [facility] [address] [address] [address] Joe Shea EGFR-AF MONEGASQUE >60 Normal >=60 [facility] Comment on above: Performed By: #### C MP, LIPA, LIDA #### [facility] [address] [place] [address] Dr. Joe Shea EGFR-NON AF MONEGASQUE >60 Normal >=60 [facility] Comment on above: Performed By: #### C MP, LIPA, LIDA #### [facility] [address] [address] [address] Joe Shea Globulin (S) [Mass/Vol] 2.6 g/dL Normal [facility] Comment on above: Performed By: #### C MP, LIPA, LIDA #### [facility] [address] [place] [address] Dr. Joe Shea Glucose [Mass/Vol] 92 mg/dL Normal 74-106 [facility] Comment on above: Performed By: #### C MP, LIPA, LIDA #### [facility] [address] [address] [address] Joe Shea Potassium [Moles/Vol] 3.8 mmol/L Normal 3.5-5.1 [facility] Comment on above: Performed By: #### C MP, LIPA, LIDA #### [facility] [address] [address] [address] Joe Shea Protein [Mass/Vol] 6.3 g/dL Critically low 6.4-8.2 [facility] Comment on above: Performed By: #### C MP, LIPA, LIDA #### [facility] [address] [address] [address] Joe Shea Sodium [Moles/Vol] 140 mmol/L Normal 136-145 [facility] Comment on above: Performed By: #### C MP, LIPA, LIDA #### [facility] [address] [address] [address] Joe Shea Urea nitrogen [Mass/Vol] 9.0 mg/dL Normal 7.0-18.0 [facility] Comment on above: Performed By: #### C MP, LIPA, LIDA #### [facility] [address] [address] [address] Joe Shea Urea nitrogen/Creatinine [Mass ratio] 14.8 mg/mg Normal [facility] Comment on above: Performed By: #### C MP, LIPA, LIDA #### [facility] [address] [address] [address] Joe Shea US SINGLE QUAD RT [...] Date: 2022-05-23 08:29 Normal [facility] AMYLASEon 05-22-2022 Amylase [Catalytic activity/Vol] 50 U/L Normal 25-115 [facility] Comment on above: Performed By: #### A MY, CMP, LIPA #### [facility] [address] [place] [address] Dr. Joe Shea CBC AUTO DIFFon 05-22-2022 BASO # 0.1 103/ul Normal 0.0-0.1 [facility] Comment on above: Performed By: #### C MP, LIPA, LIDA #### [facility] [address] [place] [address] Dr. Joe Shea Basophils/100 WBC (Bld) 0.3 % Normal 0.2-2.0 [facility] Comment on above: Performed By: #### C MP, LIPA, LIDA #### [facility] [address] [place] [address] Dr. Joe Shea EO # 0.0 103/ul Normal 0.0-0.7 [facility] Comment on above: Performed By: #### C MP, LIPA, LIDA #### [facility] [address] [place] [address] Dr. Joe Shea Eosinophils/100 WBC (Bld) 0.2 % Critically low 0.9-7. 0 [facility] Comment on above: Performed By: #### C MP, LIPA, LIDA #### [facility] [address] [place] [address] Dr. Joe Shea Erythrocyte distribution width (RBC) [Ratio] 13.3 % Normal 11.0-15.0 [facility] Comment on above: Performed By: #### C MP, LIPA, LIDA #### [facility] [address] [place] [address] Dr. Joe Shea Hematocrit (Bld) [Volume fraction] 39.0 % Normal 36.0-48.0 [facility] Comment on above: Performed By: #### C MP, LIPA, LIDA #### [facility] [address] [place] [address] Dr. Joe Shea Hemoglobin (Bld) [Mass/Vol] 12.7 g/dL Normal 12.0-16.0 [facility] Comment on above: Performed By: #### C MP, LIPA, LIDA #### [facility] [address] [place] [address] Dr. Joe Shea IG # 0.05 10e3/ul Critically high 0.00-0.03 [facility] Comment on above: Performed By: #### C CARLYN DE JESUS, LIDA #### [facility] [address] [place] [address] Dr. Joe Shea IG % 0.3 % Normal 0.0-0.5 [facility] Comment on above: Performed By: #### C CARLYN DE JESUS, LIDA #### [facility] [address] [place] [address] Dr. Joe Shea LYMPH # 0.8 103/ul Critically low 1.2-3.8 [facility] Comment on above: Performed By: #### C HUGO DE JESUSA, LIDA #### [facility] [address] [place] [address] Dr. Joe Shea Lymphocytes/100 WBC (Bld) 4.4 % Critically low 20.5-6 0.0 [facility] Comment on above: Performed By: #### C HUGO DE JESUSA, LIDA #### [facility] [address] [place] [address] Dr. Joe Shea MANUAL DIFF REQ NO Normal [facility] Comment on above: Performed By: #### C HUGO DE JESUSA, LIDA #### [facility] [address] [place] [address] Dr. Joe Shea MCH (RBC) [Entitic mass] 28.1 pg Normal 26.7-34.0 [facility] Comment on above: Performed By: #### C NEAL LIPA, LIDA #### [facility] [address] [place] [address] Dr. Joe Shea MCHC (RBC) [Mass/Vol] 32.6 g/dL Normal 29.9-35.2 [facility] Comment on above: Performed By: #### C NEAL LIPA, LIDA #### [facility] [address] [place] [address] Dr. Joe Shea MCV (RBC) [Entitic vol] 86.3 fL Normal 81.0-99.0 [facility] Comment on above: Performed By: #### C MP LIPA, LIDA #### [facility] [address] [place] [address] Dr. Joe Shea MONO # 0.4 103/ul Normal 0.3-0.8 [facility] Comment on above: Performed By: #### C MP LIPA, LIDA #### [facility] [address] [place] [address] Dr. Joe Shea Monocytes/100 WBC (Bld) 2.2 % Normal 1.7-12.0 [facility] Comment on above: Performed By: #### C MP LIPA, LIDA #### [facility] [address] [place] [address] Dr. Joe Shea NEUT # 16.7 103/ul Critically high 1.4-6.5 [facility] Comment on above: Performed By: #### C MP LIPA, LIDA #### [facility] [address] [place] [address] Dr. Joe Shea Neutrophils/100 WBC (Bld) 92.6 % Critically high 43.0- 75.0 [facility] Comment on above: Performed By: #### C NEAL LIPA, LIDA #### [facility] [address] [place] [address] Dr. Joe Shea Platelet mean volume (Bld) [Entitic vol] 11.0 fL Normal 9.5-13.5 [facility] Comment on above: Performed By: #### C MP LIPA, LIDA #### [facility] [address] [place] [address] Dr. Joe Shea PLT 323 103/ul Normal 150-450 [facility] Comment on above: Performed By: #### C MP LIPA, LIDA #### [facility] [address] [place] [address] Dr. Joe Shea RBC 4.52 106/ul Normal 4.20-5.40 [facility] Comment on above: Performed By: #### C MP LIPA, LIDA #### [facility] [address] [place] [address] Dr. Joe Shea WBC 18.0 103/ul Critically high 4.0-11.0 [facility] Comment on above: Performed By: #### C CARLYN DE JESUS AMY #### [facility] [address] [address] [address] Joe MOORE URINE PROFILEon 2 Bilirubin Ql (U) Negative Normal NEGATIVE [facility] Comment on above: Performed By: #### D HEASUL #### [facility] [address] [address] [address] Joe Shea Clarity (U) CLEAR Normal CLEAR [facility] Comment on above: Performed By: #### Althea DURÁNUL #### [facility] [address] [place] [address] Dr. Joe Shea Color (U) YELLOW Normal YELLOW [facility] Comment on above: Performed By: #### Althea DURÁNUL #### [facility] [address] [place] [address] Dr. Joe YUNG A micrscopic examination will be performed if indicated. Normal [facility] Comment on above: Performed By: #### Althea DURÁNUL #### [facility] [address] [address] [address] Joe Shea Glucose Ql (U) Negative Normal NEGATIVE [facility] Comment on above: Performed By: #### Althea DURÁNUL #### [facility] [address] [address] [address] Joe Shea Hemoglobin Ql (U) Negative Normal NEGATIVE [facility] Comment on above: Performed By: #### Althea GARCIAASUL #### [facility] [address] [address] [address] Joe Shea Ketones Ql (U) 15 mg/dl Abnormal NEGATIVE [facility] Comment on above: Performed By: #### Althea DURÁNUL #### [facility] [address] [place] [address] Dr. Joe Shea LEUKOCYTES Negative Normal NEGATIVE [facility] Comment on above: Performed By: #### Althea DURÁNUL #### [facility] [address] [place] [address] Dr. Joe Shea Nitrite Ql (U) Negative Normal NEGATIVE [facility] Comment on above: Performed By: #### Althea GTZ #### [facility] [address] [place] [address] Dr. Joe Shea pH (U) 5.5 [pH] Normal 5-9 [facility] Comment on above: Performed By: #### Althea GTZ #### [facility] [address] [address] [address] Joe Shea SPEC GRAVITY >=1.030 Abnormal 1.005-<=1.[address] [place] [address] Comment on above: Performed By: #### Althea GTZ #### [facility] [address] [place] [address] Dr. Joe Shea UA PROTEIN Negative Normal NEGATIVE/ TRACE [facility] Comment on above: Performed By: #### Althea GTZ #### [facility] [address] [place] [address] Dr. Joe Shea UR MICRO IND NOT INDICATED Normal [facility] Comment on above: Performed By: #### Althea GTZ #### [facility] [address] [address] [address] Joe Shea Urobilinogen Qn (U) 1.0 {Pascual'U}/dL Normal 0.2 - 1. 0 [facility] Comment on above: Performed By: #### Althea GTZ #### [facility] [address] [place] [address] Dr. Joe Shea LACTATE/LACTIC ACIDon 2021 Lactate [Moles/Vol] 1.0 mmol/L Normal 0.4-1.9 [facility] Comment on above: Performed By: #### C BC #### [facility] [address] [place] [address] Dr. Joe Shea LIPASEon 05-22-2022 Lipase [Catalytic activity/Vol] 205.0 U/L Normal 73.0-393.0 [facility] Comment on above: Performed By: #### A MY, CMP, LIPA #### [facility] [address] [address] [address] Joe Shea MRI BRAIN WO CONon [...] by: ANGIE LO Date: 2022-05-22 16:17 Normal [facility] URon 05-22-2022 , QUAL Negative Normal NEGATIVE [facility] Comment on above: Performed By: #### Althea GTZ #### [facility] [address] [address] [address] Joe Shea PROF 14(COMP METB)on 022 Albumin [Mass/Vol] 4.5 g/dL Normal 3.4-5.0 [facility] Comment on above: Performed By: #### Althea GTZ #### [facility] [address] [address] [address] Joe Shea Albumin/Globulin [Mass ratio] 1.4 {ratio} Normal [facility] Comment on above: Performed By: #### Althea GTZ #### [facility] [address] [address] [address] Joe Shea ALP [Catalytic activity/Vol] 60 U/L Normal 46-116 [facility] Comment on above: Performed By: #### Althea GTZ #### [facility] [address] [address] [address] Joe Shea ALT [Catalytic activity/Vol] 17 U/L Normal 14-59 [facility] Comment on above: Performed By: #### Althea GTZ #### [facility] [address] [address] [address] Jeo Shea Anion gap [Moles/Vol] 10.9 mmol/L Normal [facility] Comment on above: Performed By: #### Althea GTZ #### [facility] [address] [address] [address] Joe Shea AST [Catalytic activity/Vol] 19 U/L Normal 15-37 [facility] Comment on above: Performed By: #### Althea GTZ #### [facility] Laboratory [address] [address] [address] Joe Shea Bilirubin [Mass/Vol] 0.8 mg/dL Normal 0.2-1.0 [facility] Comment on above: Performed By: #### Althea GTZ #### [facility] Laboratory [address] [address] [address] Joe Shea Calcium [Mass/Vol] 9.0 mg/dL Normal 8.5-10.1 [facility] Comment on above: Performed By: #### Althea GTZ #### [facility] Laboratory [address] [address] [address] Joe Shea Chloride [Moles/Vol] 102 mmol/L Normal 98-107 [facility] Comment on above: Performed By: #### Althea GTZ #### [facility] [address] [address] [address] Joe Shea CO2 [Moles/Vol] 28.7 mmol/L Normal 21.0-32.0 [facility] Comment on above: Performed By: #### Althea GTZ #### [facility] [address] [address] [address] Joe Shea Creatinine [Mass/Vol] 0.73 mg/dL Normal 0.55-1.02 [facility] Comment on above: Performed By: #### Althea GTZ #### [facility] [address] [address] [address] Joe Shea EGFR-AF MONEGASQUE >60 Normal >=60 [facility] Comment on above: Performed By: #### Althea GTZ #### [facility] [address] [address] [address] Joe Shea EGFR-NON AF MONEGASQUE >60 Normal >=60 [facility] Comment on above: Performed By: #### Althea GTZ #### [facility] [address] [address] [address] Joe Shea Globulin (S) [Mass/Vol] 3.2 g/dL Normal [facility] Comment on above: Performed By: #### Althea GTZ #### [facility] [address] [address] [address] Joe Shea Glucose [Mass/Vol] 113 mg/dL Critically high 74-106 [facility] Comment on above: Performed By: #### Althea GTZ #### [facility] [address] [address] [address] oJe Shea Potassium [Moles/Vol] 3.6 mmol/L Normal 3.5-5.1 [facility] Comment on above: Performed By: #### Althea GTZ #### [facility] [address] [address] [address] Joe Shea Protein [Mass/Vol] 7.7 g/dL Normal 6.4-8.2 [facility] Comment on above: Performed By: #### Althea GTZ #### [facility] [address] [address] [address] Joe Shea Sodium [Moles/Vol] 138 mmol/L Normal 136-[address] [facility] Comment on above: Performed By: #### Althea GTZ #### [facility] [address] [address] [address] Joe Shea Urea nitrogen [Mass/Vol] 9.0 mg/dL Normal 7.0-18.0 [facility] Comment on above: Performed By: #### Althea GTZ #### [facility] [address] [address] [address] Joe Shea Urea nitrogen/Creatinine [Mass ratio] 12.3 mg/mg Normal [facility] Comment on above: Performed By: #### D TRESA #### [facility] Laboratory [address] [address] [address] Joe Shea XR CHEST 2 Von [...] by: ANA COTE Date: 2022-05-22 02:56 Normal [facility] PROGESTERONEon 05-08-2022 Progesterone 18.1 ng/mL Normal [facility] Comment on above: Result Comment: Foll icular phase 0.1 - 0.9 Luteal phase 1.8 - 23.9 Ovulation phase 0.1 - 12.0 First trimester 11.0 - 44.3 Second trimester 25.4 - 83.3 Third trimester 58.7 - 214.0 Postmenopausal 0.0 - 0.1 Performed By: #### C BC #### [facility] [address] [place], [place] [address] Dr. Joe Shea DHEA SERUMon 04-12-2022 Dehydroepiandrosterone (DHEA) 577 ng/dL Normal 31-701 [facility] Comment on above: Result Comment: [...] By: #### C BC #### [facility] [address] [place], [place] [address] Dr. Joe Shea PROGESTERONEon 04-10-2022 Progesterone 16.0 ng/mL Normal [facility] Comment on above: Result Comment: Foll icular phase 0.1 - 0.9 Luteal phase 1.8 - 23.9 Ovulation phase 0.1 - 12.0 First trimester 11.0 - 44.3 Second trimester 25.4 - 83.3 Third trimester 58.7 - 214.0 Postmenopausal 0.0 - 0.1 Performed By: #### Althea GTZ #### [facility] Laboratory [address] [place] [address] Dr. Joe Shea DHEA-SULFATEon 04-06-2022 DHEA-Sulfate 241.0 ug/dL Normal 110.0-431.7 [facility] Comment on above: Performed By: #### Althea GTZ #### [facility] [address] [place] [address] Dr. Joe Shea FSHon 04-06-2022 FSH 6.6 mIU/mL Normal [facility] Comment on above: Result Comment: Adul t Female: Follicular phase 3.5 - 12.5 Ovulation phase 4.7 - 21.5 Luteal phase 1.7 - 7.7 Postmenopausal 25.8 - 134.8 Performed By: #### Althea GTZ #### [facility] [address] [place] [address] Dr. Joe Shea LUTEINIZING HORMONE (LH)on 1 LH 19.8 mIU/mL Normal [facility] Comment on above: Result Comment: Adul t Female: Follicular phase 2.4 - 12.6 Ovulation phase 14.0 - 95.6 Luteal phase 1.0 - 11.4 Postmenopausal 7.7 - 58.5 Performed By: #### L BCL #### [facility] [address] [place] [address] Dr. Joe Shea CBC AUTO DIFFon 04-05-2022 BASO # 0.1 103/ul Normal 0.0-0.1 [facility] Comment on above: Performed By: #### C BC #### [facility] [address] [place] [address] Dr. Joe Shea Basophils/100 WBC (Bld) 0.9 % Normal 0.2-2.0 [facility] Comment on above: Performed By: #### C BC #### [facility] [address] [place] [address] Dr. Joe Shea EO # 0.2 103/ul Normal 0.0-0.7 [facility] Comment on above: Performed By: #### C BC #### [facility] [address] [place] [address] Dr. Joe Shea Eosinophils/100 WBC (Bld) 2.6 % Normal 0.9-7.0 [facility] Comment on above: Performed By: #### C BC #### [facility] [address] [place] [address] Dr. Joe Shea Erythrocyte distribution width (RBC) [Ratio] 13.1 % Normal 11.0-15.0 [facility] Comment on above: Performed By: #### C BC #### [facility] [address] [place] [address] Dr. Joe Shea Hematocrit (Bld) [Volume fraction] 38.2 % Normal 36.0-48.0 [facility] Comment on above: Performed By: #### C BC #### [facility] [address] [place] [address] Dr. Joe Shea Hemoglobin (Bld) [Mass/Vol] 12.3 g/dL Normal 12.0-16.0 [facility] Comment on above: Performed By: #### C BC #### [facility] [address] [place] [address] Dr. Joe Shea IG # 0.01 10e3/ul Normal 0.00-0.03 [facility] Comment on above: Performed By: #### C BC #### [facility] [address] [place] [address] Dr. Joe Shea IG % 0.2 % Normal 0.0-0.5 [facility] Comment on above: Performed By: #### C BC #### [facility] [address] [place] [address] Dr. Joe Shea LYMPH # 1.7 103/ul Normal 1.2-3.8 [facility] Comment on above: Performed By: #### C BC #### [facility] [address] [place] [address] Dr. Joe Shea Lymphocytes/100 WBC (Bld) 29.2 % Normal 20.5-60.0 [facility] Comment on above: Performed By: #### C BC #### [facility] [address] [place] [address] Dr. Joe Shea MANUAL DIFF REQ NO Normal [facility] Comment on above: Performed By: #### C BC #### [facility] [address] [place] [address] Dr. Joe Shea MCH (RBC) [Entitic mass] 28.4 pg Normal 26.7-34.0 [facility] Comment on above: Performed By: #### C BC #### [facility] [address] [place] [address] Dr. Joe Shea MCHC (RBC) [Mass/Vol] 32.2 g/dL Normal 29.9-35.2 [facility] Comment on above: Performed By: #### C BC #### [facility] [address] [place] [address] Dr. Joe Shea MCV (RBC) [Entitic vol] 88.2 fL Normal 81.0-99.0 [facility] Comment on above: Performed By: #### C BC #### [facility] [address] [place] [address] Dr. Joe Shea MONO # 0.5 103/ul Normal 0.3-0.8 [facility] Comment on above: Performed By: #### C BC #### [facility] [address] [place] [address] Dr. Joe Shea Monocytes/100 WBC (Bld) 8.2 % Normal 1.7-12.0 [facility] Comment on above: Performed By: #### C BC #### [facility] [address] [place] [address] Dr. Joe Shea NEUT # 3.4 103/ul Normal 1.4-6.5 [facility] Comment on above: Performed By: #### C BC #### [facility] [address] [place] [address] Dr. Joe Shea Neutrophils/100 WBC (Bld) 58.9 % Normal 43.0-75.0 [facility] Comment on above: Performed By: #### C BC #### [facility] [address] [place] [address] Dr. Joe Shea Platelet mean volume (Bld) [Entitic vol] 11.5 fL Normal 9.5-13.5 [facility] Comment on above: Performed By: #### C BC #### [facility] [address] [place] [address] Dr. Joe Shea PLT 233 103/ul Normal 150-450 [facility] Comment on above: Performed By: #### C BC #### [facility] [address] [place] [address] Dr. Joe Shea RBC 4.33 106/ul Normal 4.20-5.40 [facility] Comment on above: Performed By: #### C BC #### [facility] [address] [place] [address] Dr. Joe Shea WBC 5.8 103/ul Normal 4.0-11.0 [facility] Comment on above: Performed By: #### C BC #### [facility] [address] [place] [address] Dr. Joe Shea GLYCOHEMOGLOBIN A1Con 2021 ADA RECOMMENDATION SEE BELOW Normal [facility] Comment on above: Result Comment: ADA RECOMMENDED LIMIT 4.0 - 6.0 ADA THERAPEUTIC TARGET < 7.0 ACTION SUGGESTED > 7.0 Performed By: #### C CARLYN DE JESUS AMY #### [facility] [address] [place] [address] Dr. Joe Shea Glucose [Mass/Vol] 105 mg/dL Normal [facility] Comment on above: Performed By: #### C CARLYN DE JESUS AMY #### [facility] [address] [place] [address] Dr. Joe Shea HbA1c (Bld) [Mass fraction] 5.3 % Normal 4.5-6.2 [facility] Comment on above: Performed By: #### C CARLYN DE JESUS AMY #### [facility] [address] [place] [address] Dr. Joe Shea TSHon 04-05-2022 TSH 0.609 uIU/mL Normal 0.358-3.740 [facility] Comment on above: Performed By: #### C BC #### [facility] [address] [place] [address] Dr. Joe Shea US PELVIS AND TRANSVAGon [...] by: ANGIE MEJIA Date: 2022-04-05 17:23 Normal [facility] AMYLASEon 03-10-2022 Amylase [Catalytic activity/Vol] 64 U/L Normal 25-115 [facility] Comment on above: Performed By: #### C BC #### [facility] [address] [place] [address] Dr. Joe Shea CBC AUTO DIFFon 03-10-2022 BASO # 0.1 103/ul Normal 0.0-0.1 [facility] Comment on above: Performed By: #### C BC #### [facility] [address] [place] [address] Dr. Joe Shea Basophils/100 WBC (Bld) 0.6 % Normal 0.2-2.0 [facility] Comment on above: Performed By: #### C BC #### [facility] [address] [place] [address] Dr. Joe Shea EO # 0.3 103/ul Normal 0.0-0.7 [facility] Comment on above: Performed By: #### C BC #### [facility] [address] [place] [address] Dr. Joe Shea Eosinophils/100 WBC (Bld) 1.7 % Normal 0.9-7.0 [facility] Comment on above: Performed By: #### C BC #### [facility] [address] [place] [address] Dr. Joe Shea Erythrocyte distribution width (RBC) [Ratio] 13.1 % Normal 11.0-15.0 [facility] Comment on above: Performed By: #### C BC #### [facility] [address] [place] [address] Dr. Joe Shea Hematocrit (Bld) [Volume fraction] 37.9 % Normal 36.0-48.0 [facility] Comment on above: Performed By: #### C BC #### [facility] [address] [place] [address] Dr. Joe Shea Hemoglobin (Bld) [Mass/Vol] 12.2 g/dL Normal 12.0-16.0 [facility] Comment on above: Performed By: #### C BC #### [facility] [address] [place] [address] Dr. Joe Shea IG # 0.05 10e3/ul Critically high 0.00-0.03 [facility] Comment on above: Performed By: #### C BC #### [facility] [address] [place] [address] Dr. Joe Shea IG % 0.3 % Normal 0.0-0.5 [facility] Comment on above: Performed By: #### C BC #### [facility] [address] [place] [address] Dr. Joe Shea LYMPH # 4.7 103/ul Critically high 1.2-3.[address] [facility] Comment on above: Performed By: #### C BC #### [facility] [address] [place] [address] Dr. Joe Shea Lymphocytes/100 WBC (Bld) 28.3 % Normal 20.5-60.0 [facility] Comment on above: Performed By: #### C BC #### [facility] [address] [place] [address] Dr. Joe Shea MANUAL DIFF REQ NO Normal [facility] Comment on above: Performed By: #### C BC #### [facility] [address] [place] [address] Dr. Joe Shea MCH (RBC) [Entitic mass] 27.9 pg Normal 26.7-34.0 [facility] Comment on above: Performed By: #### C BC #### [facility] [address] [place] [address] Dr. Joe Shea MCHC (RBC) [Mass/Vol] 32.2 g/dL Normal 29.9-35.2 [facility] Comment on above: Performed By: #### C BC #### [facility] [address] [place] [address] Dr. Joe Shea MCV (RBC) [Entitic vol] 86.5 fL Normal 81.0-99.0 [facility] Comment on above: Performed By: #### C BC #### [facility] [address] [place] [address] Dr. Joe Shea MONO # 0.9 103/ul Critically high 0.3-0.8 [facility] Comment on above: Performed By: #### C BC #### [facility] [address] [place] [address] Dr. Joe Shea Monocytes/100 WBC (Bld) 5.5 % Normal 1.7-12.0 [facility] Comment on above: Performed By: #### C BC #### [facility] [address] [place] [address] Dr. Joe Shea NEUT # 10.5 103/ul Critically high 1.4-6.5 [facility] Comment on above: Performed By: #### C BC #### [facility] [address] [place] [address] Dr. Joe Shea Neutrophils/100 WBC (Bld) 63.6 % Normal 43.0-75.0 [facility] Comment on above: Performed By: #### C BC #### [facility] [address] [place] [address] Dr. Joe Shea Platelet mean volume (Bld) [Entitic vol] 11.1 fL Normal 9.5-13.5 [facility] Comment on above: Performed By: #### C BC #### [facility] [address], [place] [address] Dr. Joe Shea PLT 428 103/ul Normal 150-450 [facility] Comment on above: Performed By: #### C BC #### [facility] [address], [place] [address] Dr. Joe Shea RBC 4.38 106/ul Normal 4.20-5.40 [facility] Comment on above: Performed By: #### C BC #### [facility] [address], [place] [address] Dr. Joe Shea WBC 16.6 103/ul Critically high 4.0-11.0 [facility] Comment on above: Performed By: #### C BC #### [facility] [address], [place] [address] ABD/PELV W CONon [...] by: MURALI STRANGE Date: 2022-03-10 16:59 Normal [facility] LIPASEon 03-10-2022 Lipase [Catalytic activity/Vol] 81.0 U/L Normal 73.0-393.0 [facility] Comment on above: Performed By: #### C BC #### [facility] [address] [place] [address] Dr. Joe Shea LIVER PROFILEon 03-10-2022 Albumin [Mass/Vol] 4.2 g/dL Normal 3.4-5.0 [facility] Comment on above: Performed By: #### C BC #### [facility] [address] [place] [address] Dr. Joe Shea Albumin/Globulin [Mass ratio] 1.4 {ratio} Normal [facility] Comment on above: Performed By: #### C BC #### [facility] [address] [place] [address] Dr. Joe Shea ALP [Catalytic activity/Vol] 50 U/L Normal 46-116 [facility] Comment on above: Performed By: #### C BC #### [facility] [address] [place] [address] Dr. Joe Shea ALT [Catalytic activity/Vol] 14 U/L Normal 14-59 [facility] Comment on above: Performed By: #### C BC #### [facility] [address] [place] [address] Dr. Joe Shea AST [Catalytic activity/Vol] 13 U/L Critically low 15-37 [facility] Comment on above: Performed By: #### C BC #### [facility] [address] [place] [address] Dr. Joe Shea BILI, CONJUGATED 0.1 mg/dL Normal 0.0-0.2 [facility] Comment on above: Performed By: #### C BC #### [facility] [address] [place] [address] Dr. Joe Shea Bilirubin [Mass/Vol] 0.3 mg/dL Normal 0.2-1.0 [facility] Comment on above: Performed By: #### C BC #### [facility] [address] [place] [address] Dr. Joe Shea Globulin (S) [Mass/Vol] 3.1 g/dL Normal [facility] Comment on above: Performed By: #### C BC #### [facility] [address] [address] [address] Joe Shea Protein [Mass/Vol] 7.3 g/dL Normal 6.4-8.2 [facility] Comment on above: Performed By: #### C BC #### [facility] [address] [address] [address] Joe Shea PREG HCG QUALon 03-10-2022 , QUAL Negative Normal NEGATIVE [facility] Comment on above: Performed By: #### L BCLH #### [facility] [address] [place] [address] Dr. Joe Shea PROF CHEM 8 (BAS METB)on Anion gap [Moles/Vol] 17.6 mmol/L Normal [facility] Comment on above: Performed By: #### C CARLYN DE JESUS, LIDA #### [facility] [address] [place] [address] Dr. Joe Shea Calcium [Mass/Vol] 9.0 mg/dL Normal 8.5-10.[address] [facility] Comment on above: Performed By: #### C CARLYN DE JESUS, LIDA #### [facility] [address] [place] [address] Dr. Joe Shea Chloride [Moles/Vol] 102 mmol/L Normal 98-107 [facility] Comment on above: Performed By: #### C NEAL LIPA, LIDA #### [facility] [address] [place] [address] Dr. Joe Shea CO2 [Moles/Vol] 23.4 mmol/L Normal 21.0-32.0 [facility] Comment on above: Performed By: #### C NEAL LIPA, LIDA #### [facility] [address] [address] [address] Joe Shea Creatinine [Mass/Vol] 0.84 mg/dL Normal 0.55-1.02 [facility] Comment on above: Performed By: #### C MP, LIPA, LIDA #### [facility] [address] [address] [address] Joe Shea EGFR-AF MONEGASQUE >60 Normal >=60 [facility] Comment on above: Performed By: #### C MP, LIPA, LIDA #### [facility] [address] [address] [address] Joe Shea EGFR-NON AF MONEGASQUE >60 Normal >=60 [facility] Comment on above: Performed By: #### C MP, LIPA, LIDA #### [facility] [address] [address] [address] Joe Shea Glucose [Mass/Vol] 149 mg/dL Critically high 74-106 [facility] Comment on above: Performed By: #### C MP, LIPA, LIDA #### [facility] [address] [place] [address] Dr. Joe Shea Potassium [Moles/Vol] 2.9 mmol/L Critically low 3.5-5.1 [facility] Comment on above: Performed By: #### C NEAL LIPA, LIDA #### [facility] [address] [address] [address] Joe Shea Sodium [Moles/Vol] 139 mmol/L Normal 136-145 [facility] Comment on above: Performed By: #### C NEAL, LIPA, LIDA #### [facility] [address] [address] [address] Joe Shea Urea nitrogen [Mass/Vol] 11.0 mg/dL Normal 7.0-18.0 [facility] Comment on above: Performed By: #### C MP LIPA, LIDA #### [facility] [address] [address] [address] Joe Shea Urea nitrogen/Creatinine [Mass ratio] 13.1 mg/mg Normal [facility] Comment on above: Performed By: #### C MP, LIPA, LIDA #### [facility] [address] [address] [address] Joe Shea XR CSPINE 2_3 VIEWSon 07-21- 2022 XR CSPINE 2_3 VIEWS EXAMINATION: XR CSPINE [...] ANGIE MEJIA Date: 2022-01-18 08:03 Normal [facility] C BP Strepon 12-23-2019 C BP Strep This is strictly a screening test for Strep Group A( Streptococcus pyogenes). No other pathogens will be noted. Final Backup plate negative for Group A Streptococus Resulted at [facility] Comment on above: Performed By: #### B P #### [facility] (DEFAULT) [address] [place] [address] Ambulatory Patient Education on 12-21-2019 Ambulatory Patient Education Patient Education Materials Name: Racheal Louise Current Date: 12/21/2019 14:47:45 [place] : 2000 The following sheet(s) are the [...] a child 2 years or older. ? [id number] [employer]. [address] [place] [address]. All rights reserved. This information is not intended as a substitute for professional medical care. Always follow your healthcare professional's instructions. Strep today is Negative. Will send for culture to [facility] and notify if it returns positive. Take medication as prescribed. Discontinue for a negative strep culture. Discard and replace toothbrush after taking antibiotics for at least 24 hours. May use oylt-rwx-hlwezlw Tylenol and Motrin for pain relief. May use of kkyd-nwz-hhndzre Chloraseptic throat spray, lozenges, cool or warm [...] tabs, 0 Refill(s), 12/26/19 14:42:00 EDT, Pharmacy: [id number] Normal [facility] [place] Trackon 12-21-2019 BVO Red Swab # 1 Normal [facility] Comment on above: Performed By: #### [facility] Tracking Order #### [facility] [address] [place] [address] Urgent Care Office/Clinic No [email or web address] 12-21-2019 Urgent [...] POC: negative. Swab will be sent to [facility] for culture. We will call if positive and treat appropriately. Additional Vitals Body Mass Index Measured: 18.43 kg/m2 Peripheral Pulse Rate: 111 bpm High Assessment/Plan 1. Sore throat Strep today is Negative. Will send for culture to [facility] and notify if it returns positive. Take medication as prescribed. Discontinue for a negative strep culture. Discard and replace toothbrush after taking antibiotics for at least 24 hours. May use ehke-iuu-pbbsipw Tylenol and Motrin for pain relief. May use of icap-ncu-mebkirn Chloraseptic throat spray, lozenges, cool or warm [...] tabs, 0 Refill(s), 12/26/19 14:42:00 EDT, Pharmacy: [id number] Physician Comments Centor [...] [Ratio] 27.44 kg/m2 Lida HIRSCH Work Phone: [facility] 08-01-2023 13:55-0500 Body weight 68.04 kg Lida HIRSCH Work Phone: [facility] 08-01-2023 13:55-0500 Diastolic blood pressure 70 mm[Hg] Lida HIRSCH Work Phone: [facility] 08-01-2023 13:55-0500 Systolic blood pressure 118 mm[Hg] Lida HIRSCH Work Phone: [facility] 03-28-2023 10:16-0400 Body height 157.48 cm Referring Provider Unknown [id number] 1200 [place] Work Phone: 03-28-2023 10:16-0400 Body mass index (BMI) [Ratio] 23.78 kg/m2 Referring Provider Unknown [id number] 1200 [place] Work Phone: 03-28-2023 10:16-0400 Body surface area Derived from formula 1.59 m2 Referring Provider Unknown [id number] 1200 [place] Work Phone: 03-28-2023 10:16-0400 Body weight 58.97 kg Referring Provider Unknown [id number]-[id number] 1200 [place] Work Phone: 03-28-2023 10:16-0400 Diastolic blood pressure 65 mm[Hg] Referring Provider Unknown [id number] 1200 [place] Work Phone: 03-28-2023 10:16-0400 Heart rate 96 /min Referring Provider Unknown [id number] 1200 [place] Work Phone: 03-28-2023 10:16-0400 Systolic blood pressure 107 mm[Hg] Referring Provider Unknown [id number] 1200 [place] Work Phone: 03-28-2023 10:16-0400 0 1 Referring Provider Unknown [id number] 1200 [place] Work Phone: Comment on above: [facility] 02-14-2023 09:15-0400 Body height 154.94 cm Filippo Larson Other [facility] Other 02-14-2023 09:15-0400 Body mass index (BMI) [Ratio] 21.73 kg/m2 Filippo Larson Other [facility] Other 02-14-2023 09:15-0400 Body weight 52.16 kg Filippo Larson Other [facility] Other 02-14-2023 09:15-0400 Diastolic blood pressure 68 mm[Hg] Filippo Larson Other [facility] Other 02-14-2023 09:15-0400 Systolic blood pressure 96 mm[Hg] Filippo Larson Other [facility] Other 07-17-2022 14:26-0500 Blood Pressure Location Mayito LIM [facility] 07-17-2022 14:26-0500 Diastolic blood pressure 70 mm[Hg] Mayito LIM [facility] [place] 07-17-2022 14:26-0500 Heart rate 70 /min Mayito LIM [facility] [place] 07-17-2022 14:26-0500 Respiratory rate 16 /min Mayito LIM [facility] [place] 07-17-2022 14:26-0500 Systolic blood pressure 102 mm[Hg] Mayito LIM [facility] [place] 03-09-2020 20:24-0400 BP Diastolic 61 mm[Hg] PHYSICIAN NO [facility] 03-09-2020 20:24-0400 BP Systolic 117 mm[Hg] PHYSICIAN NO [facility] 03-09-2020 20:24-0400 Pulse (Heart Rate) 85 /min PHYSICIAN NO [facility] 03-09-2020 20:24-0400 Pulse Oximetry 100 % PHYSICIAN NO [facility] 03-09-2020 20:24-0400 Respiratory Rate 24 /min PHYSICIAN NO [facility] 03-09-2020 18:49-0400 BMI (Body Mass Index) 20 kg/m2 PHYSICIAN NO [facility] 03-09-2020 18:49-0400 Body Temperature 98.7 [degF] PHYSICIAN NO [facility] 03-09-2020 18:49-0400 Body weight 49.7 kg PHYSICIAN NO [facility] 03-09-2020 18:49-0400 Height 157.48 cm PHYSICIAN NO [facility] Encounters Encounter Date Encounter Type Care Provider Facility Start: 08-01-2023 End: 08-01-2023 ambulatory LIDA PRICE Not Available Start: 08-01-2023 End: 08-01-2023 Postop follow up visit related to original px Lida HIRSCH Work Phone: [facility] Comment on above: S/P section Start: 07-22-2023 End: 07-22-2023 ambulatory Cecil Lilian Facility:[facility] Start: 07-22-2023 End: 07-22-2023 ambulatory Cecil Lilian Work Phone: [facility] Work Phone: Start: 07-22-2023 End: 07-22-2023 Departed Referred Cecil Lilian Work Phone: [facility] Start: 07-22-2023 End: 07-22-2023 ambulatory CECIL LILIAN Not Available Start: 07-17-2023 End: 07-18-2023 ambulatory CECIL R LILIAN [facility] Start: 07-16-2023 End: 07-16-2023 ambulatory CECIL LILIAN Not Available Start: 07-09-2023 End: 07-09-2023 ambulatory CECIL LILIAN Not Available Start: 07-08-2023 End: 07-08-2023 ambulatory LYLY SMITH [facility] Start: 07-08-2023 End: 07-08-2023 Office outpatient visit 15 minutes aPulie Cervantes MD Work Phone: Maternal- Medicine at [facility] Comment on above: 34 weeks gestation o f (Primary Dx); Poor growth affecting management of mother in third trimester, fetus 1 of multiple gestation; Dichorionic diamniotic twin in third trimester; Anxiety during Start: 07-04-2023 Orders Only Freddy Hughes [facility] rnal- Medicine at [facility] Comment on above: Dichorionic diamniot ic [...] new/estab patient 80 min Referring Provider Unknown [id number] 1200 [place] Work Phone: Start: 03-28-2023 Patient encounter procedure Referring Provider Unknown [id number] 1200 [place] Work Phone: Start: 03-28-2023 ambulatory Ramakrishna Schwarz Facility :[facility] Start: 02-14-2023 End: 02-14-2023 ambulatory Filippo Larson Other [facility] [employer] Other Start: 02-14-2023 Office outpatient vi sit 15 minutes Filippo Larson [facility] G[facility] Start: 11-28-2022 End: 11-28-[address] SHAN CONDE Facility: Start: 11-28-[address] SHAN Hernandez ity:[facility]1 Start: 10-28-2022 End: 10-28-[address] SHAN CONDE Facility:[facility] Start: 09-29-2022 End: 09-29-[address] SHAN CONDE Facility: Start: 09-19-2022 End: 09-20-[address] SHAN CONDE Facility:[facility] Start: 08-15-[address] SHAN CONDE Facil ity:[facility]1 Start: 07-17-2022 End: 07-18-2022 ambulatory SHAN CONDE PROVIDER Facility:[facility] Start: 07-17-2022 End: 07-17-2022 Patient encounter procedure Mayito LIM [facility] [place] Start: 07-10-2022 End: 07-10-[address] CECIL JOHNSON . Facility: Start: 07-08-2022 Encounter for preprocedural laboratory examination DR CECIL JOHNSON . [facility] Start: 07-06-2022 End: 07-07-[address] CECIL JOHNSON . Facility:[facility] Start: 07-06-2022 End: 07-07-2022 Encounter for preprocedural laboratory examination DR CECIL JOHNSON . Facility:[facility] Start: 06-15-2022 End: 06-16-[address] CECIL JOHNSON . Facility:[facility] Start: 06-11-2022 End: 06-12-2022 ambulatory JUANJOSE VIRAMONTES Facility:[facility] Start: 06-08-2022 ambulatory SHAN CONDE PROVIDER Facility:[facility] Start: 05-31-2022 End: 06-01-[address] CECIL JOHNSON . Facility:[facility] Start: 05-29-2022 End: 05-29-2022 ambulatory HARMAN ADAMS Facility:[facility] Start: 05-23-2022 End: 05-23-2022 ambulatory MARYURI EUSEBIO . Facility:[facility] Start: 05-22-2022 End: 05-22-2022 ambulatory [...] 03-09-2020 Emergency department patient visit PHYSICIAN KIMI [facility] Start: 04-27-2014 End: 04-27-2014 Telephone encounter Noa Dimas MD Work Phone: Reproductive Endocrinology Infertility Procedures Date Procedure Procedure Detail Performing Clinician Start: 10-25-2020 Microscopic observation [Identifier] in Cervix by Cyto stain Freddy Hughes FINAL RAIL CUTTER Colonoscopy Mayito NILCourtney Dilation and curettage Temo douglass NILL Dilation and curettage Temo douglass NILL Esophagogastroduodenoscopy Arianna LIM Excision of cyst of ovary Juana LIM H/O: section S/P mitch an section Lida HIRSCH Work Phone: Lesley Mayito RAPHAEL Plan of Treatment Date Care Activity Detail Author Start: 05-28-2032 DTaP,Tdap and Td Vaccines (8 - Td or Tdap) DTaP,Tdap and Td Vaccines (8 - Td or Tdap) [facility] Start: 07-04-2024 End: 07-04-2024 US MFM with or without consult US MFM with or without consult Imaging Routine Dichorionic diamniotic twin in third trimester Poor growth affecting management of mother in third trimester, fetus 1 of multiple gestation Expected: 07/04/2024 (Approximate), Expires: 07/04/2024 [facility] Work Phone: Comment on above: Expected: 07/04/2024 (Approximate), Expires: 07/04/2024 Start: 06-03-2024 Adult BMI Screening Adult BMI Screen ing [facility] Start: 06-03-2024 Tobacco Screening Tobacco Screening [facility] Start: 2024 Screening for Chlamy carroll trachomatis Chlamydia Screening [facility] Start: 11-04-2023 End: 11-04-2023 Patient encounter procedure 11/04/2023 9:00 AM EDT Office Visit [facility] [address] [place] [address] Shan Conde MD [address] [place] [address] [facility] Start: 10-26-2023 Screening for malign ant neoplasm of cervix Pap Smear [facility] Start: 07-17-2023 End: 07-17-2023 Patient encounter procedure 07/17/2023 9:30 AM EST Appointment [facility] [address] [place] [id number] [facility] Start: 07-08-2023 End: 07-08-2023 Telemedicine consultation with patient 07/08/2023 1:00 PM EST Telemedicine Maternal- Medicine at [facility] [address] [place] [address] Paulie Cervantes MD [address] [facility] [place] [address] Lyly Smith MD [address] [facility] 1[address] [place] [address] Maternal- Medicine at [facility] Start: 03-01-2023 Influenza vaccination P [facility] Start: 03-01-2021 Influenza vaccination INFLUENZ A (Season Ended) [facility] Start: 02-28-2020 PAP TESTING PAP TESTING [facility] Start: 2018 Urine microalbumin profile DTAP,TDAP,TD (1 - Tdap) [facility] Start: 2017 Adult BMI Follow Up Plan Adult BMI Follow Up Plan [facility] Start: 2017 CHLAMYDIA SCREENING (18-24) CHLAMYDIA SCREENING (18-24) [facility] Start: 2017 GC (GONORRHEA) SCREE KRUNAL (18-24) GC (GONORRHEA) SCREENING (18-24) [facility] Start: 2017 HEPATITIS C SCREENING HEPATITIS C SC REENING [facility] Start: 2017 HIV SCREENING HIV SCREENING [facility] Start: 2011 Adult depression screening assessment DEPRESSION SCREENING [facility] Start: 2010 HPV VACCINE (1 - 2-d ose series) HPV VACCINE (1 - 2-dose series) [facility] Patient Education Anxiety (ED) [facility] Patient referral [facility] Immunizations Immunization Date Immunization Notes Care Provider Fa cility 01-05-2022 influenza virus vaccine, unspecified formulation [facility] NEGATED: Highlighted row has not occurred!07-17-2022 influenza virus vaccine, unspecified formulation Mayito LIM [facility] [place] Payers Date Payer Category Payer Self-pay [id number] 2022 Medicaid [employer] [facility] [id number] 2022-Present [address] [address] [place] [address] [id number] 2019 Unknown 2013 Unknown [facility] CE PLAN [employer]ZZ[employer] PPO [employer] [id number] 2013-2014 PPO [id number]. [id number] 1999 Unknown [id number] 2.16.840.1.332654.3.579.2.727 1999 Unknown [id number] 2.16.840.1.677935.3.579.2.727 1999 Unknown [id number] 2.16.840.1.076744.3.579.2.593 1999 Unknown [id number] 2.16.840.1.999211.3.579.2.593 1999 Unknown [id number] 2.16.840.1.460759.3.579.2.593 1999 Unknown [id number] 2.16.840.1.337887.3.579.2.593 1999 Unknown [id number] 2.16.840.1.764974.3.579.2.593 1999 Unknown [id number] 2.16.840.1.789223.3.579.2.593 1999 Unknown [id number] 2.16.840.1.693216.3.579.2.593 1999 Unknown [id number] 2.16.840.1.597169.3.579.2.593 1999 Unknown [id number] 2.16.840.1.345619.3.579.2.593 1999 Unknown [id number] 2.16.840.1.246258.3.579.2.593 1999 Unknown [id number] 2.16.840.1.791004.3.579.2.593 1999 Unknown [id number] 2.16.840.1.281156.3.579.2.593 1999 Unknown [id number] 2.16.840.1.717927.3.579.2.593 1999 Unknown [id number] 2.16.840.1.936060.3.579.2.593 1999 Unknown [id number] 2.16.840.1.532831.3.579.2.593 1999 Unknown [id number] 2.16.840.1.117167.3.579.2.593 1999 Unknown [id number] 2.16.840.1.402814.3.579.2.593 1999 Unknown [id number] 2.16.840.1.572224.3.579.2.593 1999 Unknown [id number] 2.16.840.1.817893.3.579.2.593 1999 Unknown [id number] 2.16.840.1.585132.3.579.2.593 1999 Unknown [id number] 2.16.840.1.762366.3.579.2.593 1999 Unknown [id number] 2.16.840.1.602904.3.579.2.356 1999 Unknown [id number] 2.16.840.1.676919.3.579.2.1286 1999 Unknown [id number] 2.16.840.1.417623.3.579.2.1286 1999 Unknown [id number] 2.16.840.1.641633.3.579.2.1286 1999 Unknown [id number] 2.16.840.1.849887.3.579.2.1259 1999 Unknown [id number] 2.16.840.1.824463.3.579.2.1259 1999 Unknown [id number] 2.16.840.1.294148.3.579.2.1259 1999 Unknown [id number] 2.16.840.1.952864.3.579.2.1259 1999 Unknown [id number] 2.16.840.1.322109.3.579.2.1259 1999 Unknown [id number] 2.16.840.1.777251.3.579.2.1259 1999 Unknown [id number] 2.16.840.1.945067.3.579.2.1259 1959 Unknown [id number] 1959 Unknown [id number] 1959 Unknown [id number] Unknown Self Pay [id number] Unknown [id number] 2.16.840.1.069932.3.579.2.531 Social History Date Type Detail Facility Start: 03-09-2020 End: 03-10-2020 Tobacco smoking status MOIS Smoker (finding) [facility] Start: 1999 Sex Assigned At Female [facility] Start: 04-12-2014 End: 11-27-2022 Tobacco smoking status [facility] Never smoker [facility] Start: 04-12-2014 End: 04-01-2023 Tobacco use and exposure Never used [facility] Start: 04-12-2014 Alcohol intake Current non-dr mortgage closer of alcohol (finding) [facility] Start: 1999 Sex Assigned At Not on file [facility] Start: 07-17-2022 End: 04-01-2023 Tobacco smoking status Ex-smoker (finding) [facility] [place] Tobacco smoking status Smokeless tobacco user within last 30 days [facility] [place] Start: 11-27-2022 End: 06-03-2023 Sex Assigned At Female [facility] Start: 11-27-2022 End: 04-01-2023 No alcohol use No alcohol use [facility] History of tobacco use Cigarette Smoker [facility] Start: 06-03-2023 Alcohol intake Ex-drinker (finding) [facility] Start: 10-25-2020 Alcohol Comment [facility] Start: 11-22-2022 [facility] Start: 08-01-2023 Alcohol intake Lifetime non-d li (finding) [facility] Start: 11-27-2022 Education 9 [facility] Start: 11-27-2022 Alcohol Comment Caffeine intak e 1-2 cups per day pop [facility] Start: 11-27-2022 Gender identity Identifies as female gender (finding) [facility] NEGATED: Highlighted row Denies History of domestic violence Denies History of domestic violence [id number] [address] [place] Work Phone: Goals Date Patient Goal Desired Activity /State Functional Status Date Assessment Result Facility 07-17-2022 Functional Status N/A [facility] [place] Clinical Notes 04-27-2014 to 08-01-2023 TORREY Black [...] of pelvic peritoneum LAMIN (generalized anxiety disorder) (CMS/HCC) Hematometra Metrorrhagia Family History Problem Relation Name [...] of: TORREY Black documented in this encounter [facility] 07-08-2023 History of Present illness Narrative Video Visit via Real-time Synchronous Audiovisual Provider Location: [facility] MATERNAL- MEDICINE AT [address] [id number] Patient Location: Patient Location [employer]iodies[employer] Product Manager: None Video Visit Consent Statement: I [...] that there are some limitations compared to uhsw-ig-vdcy evaluations. We elected to proceed. REASON FOR [...] hypokalemia Anxiety and depression Bipolar 2 disorder ([facility]) Chronic abdominal pain Endometriosis Intractable nausea and [...] Doppler studies for growth restriction at [facility] office, Doppler studies remain normal, [...] call me. Lyly Smith MD Maternal- Medicine [facility] [address] [facility] 1[address] [place] [address] documented in this encounter [facility] 02-14-2023 Evaluation note Encounter Date Diagnosis [...] needed. Retrun visit here in three months. [facility] Other 01-20-2023 NoteChief Complaint consultation for epigastric [...] Reports colonoscopy completed several years ago at [facility] was normal. History of Present Illness 22 yo female with h/o bipolar disorder, anxiety, migraines, referred for intermittent epigastric and LUQ pain, burning, at times sharp/stabbing; occasional N/V; + boating; no food triggers, occurs celia without eating; no hematemesis or melena; no hematochezia, some constipation, improved with stool softeners; had normal EGD and [facility] [place] [facility] [place]; abdominal operations significant for laparoscopy [...] more than 30 da (more content not included)...[facility]Result Comment: Electronically Signed By: Mayito LIM MD\Date and Time Signed: 07/20/22 14:58 [id number] Note OPERATIVE NOTE OPERATION DATE: 07/10/2021 PROCEDURE: Diagnostic laparoscopy with chromopertubation. PREOPERATIVE DIAGNOSIS: Pelvic pain. POSTOPERATIVE DIAGNOSIS: Pelvic pain, including small endometrial implant posterior cul-de-sac, as well as possible blunted tube on the patient's left side. ANESTHESIA: General. SURGEON: Cecil Johnson D.O. TIPPLE ENGINEER: ISAURO Mccoy URINE OUTPUT: Yellow and clear. BLOOD LOSS: 5 mL. FINDINGS: Slightly blunted tube on the left side, endometriosis posterior cul-de-sac, otherwise normal appearing uterus, tubes and ovaries. Normal appearing appendix. Some adhesions of the bowel to the pelvic and abdominal side wall on the patient's right side. Normal appearing liver. No evidence of Fjir-Ixmz-Fqgpgw syndrome. PROCEDURE: The patient was taken back [...] taken to Recovery Room in stable conditionThe [facility] [id number] NoteOP Note OPERATION DATE: 07/10/2022 PROCEDURE: Diagnostic laparoscopy with chromopertubation. PREOPERATIVE DIAGNOSIS: Pelvic pain, suspected endometriosis, fallopian tube disorder. POSTOPERATIVE DIAGNOSIS: Pelvic pain, suspected endometriosis, fallopian tube disorder, including mild endometriosis, bilateral patent fallopian tubes, small bowel adhesion to the pelvic side wall. ANESTHESIA: General. SURGEON: Cecil Johnson D.O. TIPPLE ENGINEER: ISAURO Mccoy URINE OUTPUT: Yellow and clear. BLOOD LOSS: 5 mL. ADDENDUM: Please note that chromopertubation was performed after methylene blue was placed through the HUMI manipulator. Spillage of methylene blue could be seen from both tubes.The [facility] [id number] Instructions* Patient Instructions* Molly HiltonJennifer valderrama - 04/27/2014 4:49 PM EDT [phone] - Patient mother would like to speak with a nurse concerning medications that her daughter is taking. [facility] - [facility] * the patient is seen at the request of Dr. Gonzales at [facility] for consultation regarding second opinion for placental hemorrhage; EDC 08/15/2023 * FC MA [id number] [address] [place] Work Phone: chief complaint Narrative - Reported* the patient is seen at the request of Dr. Gonzales at [facility] for consultation regarding second opinion for placental hemorrhage; EDC 08/15/2023 * FC MA [id number] [address] [place] Work Phone: evaluation + Plan note No data available for this section [facility] [place] Evaluation note* Diagnosis Dichorionic diamniotic twin in third trimester- Primary Poor growth affecting management of mother in third trimester, fetus 1 of multiple gestation [facility] Diagnosis 34 weeks gestation of - Primary Poor growth affecting management of mother in third trimester, fetus 1 of multiple gestation Dichorionic diamniotic twin in third trimester Anxiety during documented [facility] this encounter [facility] noteNo assessment information available [facility] Work Phone: Evaluation note* Diagnosis S/P section Other postprocedural status documented in this encounter [facility] N[facility]ative - Reported* Type Description Date Medical History Anxiety Medical History GERD (gastroesophageal reflux di sease) Medical History bipolar Surgical History LAPAROSCOPY-times 2013 Hospitalization [facility] & [facility] - ultrasound & CT scans 12/2022 [facility] Other Hospital Discharge instructions No data available for this section General Surgery [place] InstructionsNot on filedocumented in this encounter [facility] SystemInstructionsNot on filedocumented in this encounter [facility] note No data available for this section [facility] [place] Summary Purpose Family History No Family History [...] fetus 1 of multiple gestation Procedures US [facility] with or without consult Amadeo Heaton MD [address], [address] [place] [address] [facility] Maternal Med [address] [place] [address] Referral ID Status Reason Start Date Expiration Date V isits Requested Visits Authorized [id number] Pending Review 07/04/2023 07/03/2024 1 1 Additional Source Comments INFORMATION SOURCE (unrecogn ized section and content) DATE CREATED AUTHOR 02/04/2020 [facility] DATE CREATED AUTHOR AUTHOR'S ORGANIZ ATION 08/16/2022 [facility] DATE CREATED AUTHOR AUTHOR'S ORGANIZ ATION 12/07/2022 [facility] DATE CREATED AUTHOR AUTHOR'S ORGANIZ ATION 04/06/2023 [facility] DATE CREATED AUTHOR AUTHOR'S ORGANIZ ATION 07/20/2023 [facility] DATE CREATED AUTHOR AUTHOR'S ORGANIZ ATION 08/03/2023 [facility] DATE CREATED AUTHOR AUTHOR'S ORGANIZ ATION 08/20/2023 [facility] Source Comments (unrecognize d section and content) In the event this informatio n is protected by the Federal Confidentiality of Alcohol and Drug Abuse Patient Records regulations: The Federal rules restrict any use of the information to criminally investigate or prosecute any alcohol or drug abuse patient.[facility] Patient Care team informatio n (unrecognized section and content) Oil Well Engineer Relationship Specialty Start Date End Date [place], [place] [address] PCP - General Family Medicine 10/25/20 Oil Well Engineer Relationship Specialty Start Date End Date No Pcp[place] [address] PCP - General Family Medicine 10/25/20 Team Status: Inactive Member Role Status Dates Cecil Johnson Attending Provider Active Start: Mikel mirza 2023 End: July 22, 2023 Oil Well Engineer Relationship Specialty Start Date End Date Shan [...] BE BASED ON THE PRIMARY CLINICAL RECORDS. [employer] [facility]. provides no warranty or guarantee of the accuracy or completeness of information in this document.
--- NOTE | 2024-01-27 06:28 | ED_ITS ---
HPI HPI - General Adult General Chief complaint: Headache Stated complaint: HEADACHE Time Seen by Provider: 01/27/24 06:15 Source: patient Mode of arrival: walk-in History of Present Illness HPI narrative: patient has past history of migraines. Presents complaining of migraine headache for past 2-3 days associated with nausea and vomiting. No fever or chills. Describes tingling of her fingers and feet but no weakness. States this is definitely her migraine. Not short of breath Related Data Home Medications ?Medication ?Instructions ?Recorded ?Confirmed citalopram 40 mg tablet 40 mg PO DAILY 01/21/23 01/27/24 Allergies Allergy/AdvReac Type Severity Reaction Status Date / Time No Known Drug Allergies Allergy Verified 10/03/23 12:02 Opioid HPI Opioid Management Most Recent Opioid Data: Last Pain Scale 8 07/26/23 14:38 Ur Phencyclidine Scrn Negative (NEGATIVE) 07/22/23 18:30 Review of Systems ROS Status of ROS 10 or more systems reviewed and unremark able except as noted in history and below PFSH PFS Medical History (Updated 01/27/24 @ 06:31 by Shawn Shearer MD) Twin gestation in third trimester ?O30.003 - Twin , unspecified number of placenta and unspecified number of amniotic sacs, third trimester (ICD-10) Chronic abdominal pain ?R10.9 - Unspecified abdominal pain (ICD-10) ?G89.29 - Other chronic pain (ICD-10) Bipolar 2 disorder ?F31.81 - Bipolar II disorder (ICD-10) Surgical History (Updated 07/26/23 @ 13:13 by Marilee Badillo MD) Delivery by section Hx of dilation and curettage ?Z98.890 - Other specified postprocedural states (ICD-10) Family History Father Family history of COPD (chronic obstructive pulmonary disease) Grandmother Family history of COPD (chronic obstructive pulmonary disease) Family history of cancer Sister Family history of diabetes mellitus Social History Within the past year, how often did you have a drink containing alcohol: never Within the past year, how often did you have six or more drinks on one occasion: never Score interpretation: A score less than 3 is consistent with normal alcohol consumption. 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 Known occupational exposures/hazards: No Highest level of school completed/degree received: 11th grade Do you want help with school or training: No Are you now , , , , never or living with a partner: living with partner In a typical week, how many times do you talk on the telephone with family, friends, or neighbors: 3 or more times per week How often do you get together with friends or relatives: 3 or more times per week How often do you attend evangelical or synagogue services: never Do you belong to any clubs or organizations such as evangelical groups unions, [employer] or athletic groups, or school groups: no Total score: 2 Score interpretation: A score of greater than or equal to 2 indicates the lowest level of social isolation. Little interest or pleasure in doing things: nearly every day Feeling down, depressed, or hopeless: not at all Feel stressed/tense/nervous/anxious/difficulty sleeping: not at all Due to disability, difficulty making decisions: No Do you think of yourself as: straight/heterosexual Gender Identity: female Exam Constitutional Vital Signs, click to edit/add: Last Vital Signs Temp 98.7 F 01/27/24 06:10 Pulse 102 H 01/27/24 06:10 Resp 18 01/27/24 06:10 BP 120/74 01/27/24 06:10 Pulse Ox 97 01/27/24 06:10 O2 Del Method Room Air 01/27/24 06:10 Common normals: no apparent distress, average body habitus, oriented x3, no limitations, healthy appearing, alert and well nourished [facility] Common normals: normocephalic and head/scalp atraumatic Eye Common normals: PERRL, EOMs intact bilaterally and conjunctivae normal Respiratory Common normals: normal respiratory effort, no retractions, no use of accessory muscles and clear to auscultation bilaterally Cardio Common normals: regular rate, regular rhythm, S1 normal heart sound and S2 normal heart sound GI Common normals: Normal to inspection, nondistended, normoactive bowel sounds present, soft to palpation and non-tender Extremity Common normals: normal to inspection and full ROM Neuro Common normals: oriented x3, CN's II-XII intact bilaterally, moves all extremities and no focal motor deficits Psych Appearance: grossly normal Course Vital Signs Vital signs: Vital Signs Temperature 98.7 F 01/27/24 06:10 Pulse Rate 102 H 01/27/24 06:10 Respiratory Rate 18 01/27/24 06:10 Blood Pressure 120/74 01/27/24 06:10 Pulse Oximetry 97 01/27/24 06:10 Oxygen Delivery Method Room Air 01/27/24 06:10 Temperature 98.7 F 01/27/24 06:10 Pulse Rate 102 H 01/27/24 06:10 Respiratory Rate 18 01/27/24 06:10 Blood Pressure 120/74 01/27/24 06:10 Pulse Oximetry 97 01/27/24 06:10 Oxygen Delivery Method Room Air 01/27/24 06:10 Medical Decision Making MDM Narrative Medical decision making narrative: patient presents with migraine headache. labs and medication ordered . Care transferred to oncoming physician at change of shift Lab Data Labs: Lab Results 01/27/24 Range/Units 06:24 WBC 11.2 H (4.0-11.0) 10^3/uL RBC 4.45 (4.20-5.40) 10^6/uL Hgb 11.6 L (12.0-16.0) g/dL Hct 35.9 L (36.0-48.0) % MCV 80.7 L (81.0-99.0) fL MCH 26.1 L (26.7-34.0) pg MCHC 32.3 (29.9-35.2) g/dL RDW 13.9 (11.0-15.0) % Plt Count 317 (150-450) 10^3/uL MPV 11.8 (9.5-13.5) fL Neut % (Auto) 84.4 H (43.0-75.0) % Lymph % (Auto) 11.7 L (20.5-60.0) % Evangeline % (Auto) 3.0 (1.7-12.0) % Eos % (Auto) 0.3 L (0.9-7.0) % Baso % (Auto) 0.3 (0.2-2.0) % Neut # (Auto) 9.5 H (1.4-6.5) 10^3/uL Lymph # (Auto) 1.3 (1.2-3.8) 10^3/uL Evangeline # (Auto) 0.3 (0.3-0.8) 10^3/uL Eos # (Auto) 0.0 (0.0-0.7) 10^3/uL Baso # (Auto) 0.0 (0.0-0.1) 10^3/uL Abs Immat Gran (auto) 0.03 (0.00-0.03) 10^3/uL Imm/Tot Granulo (auto) 0.3 (0.0-0.5) % Sodium 137 (136-145) mmol/L Potassium 3.2 L (3.5-5.1) mmol/L Chloride 102 (98-107) mmol/L Carbon Dioxide 21.7 (21.0-32.0) mmol/L Anion Gap 16.5 BUN 4.0 L (7.0-18.0) mg/dL Creatinine 0.81 (0.55-1.02) mg/dL Est GFR ( Amer) >60 (>=60) Est GFR (Non-Af Amer) >60 (>=60) BUN/Creatinine Ratio 4.9 Glucose 127 H (74-106) mg/dL Calcium 8.9 (8.5-10.1) mg/dL Discharge Plan Discharge Chief Complaint: Headache Clinical Impression: Migraine Prescriptions / Home Meds: No Action citalopram 40 mg tablet 40 mg PO DAILY Patient Comments: Pt own medication. Print Language: Czech Referrals: Shan Moya MD [Primary Care Provider] - 1 week
[2024-01-27 06:37] LABS: Basophils Percent Auto 0.3 % (0.2-2.0); Eosinophils Percent Auto 0.3 % (0.9-7.0); Hematocrit 35.9 % (36.0-48.0); Hemoglobin 11.6 g/dL (12.0-16.0); Immature Granulocytes Abs Auto 0.03 10^3/uL (0.00-0.03); Immature Granulocytes Pct Auto 0.3 % (0.0-0.5); Lymphocytes Absolute Auto 1.3 10^3/uL (1.2-3.8); Lymphocytes Percent Auto 11.7 % (20.5-60.0); Mean Corpuscular HGB Conc 32.3 g/dL (29.9-35.2); Mean Corpuscular Hemoglobin 26.1 pg (26.7-34.0); Mean Corpuscular Volume 80.7 fL (81.0-99.0); Mean Platelet Volume 11.8 fL (9.5-13.5); Monocytes Absolute Auto 0.3 10^3/uL (0.3-0.8); Neutrophils Absolute Auto 9.5 10^3/uL (1.4-6.5); Neutrophils Percent Auto 84.4 % (43.0-75.0); Platelet Count 317 10^3/uL (150-450); Red Blood Count 4.45 10^6/uL (4.20-5.40); Red Cell Distribution Width 13.9 % (11.0-15.0); White Blood Count 11.2 10^3/uL (4.0-11.0)
[2024-01-27] MEDS: 0.9 % SODIUM CHLORIDE 1,000 ML 999 ML IV (06:43)
[2024-01-27 06:44] LABS: Anion Gap 16.5; BUN Creatinine Ratio 4.9; Calcium 8.9 mg/dL (8.5-10.1); Carbon Dioxide 21.7 mmol/L (21.0-32.0); Chloride 102 mmol/L (98-107); Estimated GFR (African America >60 (>=60); Estimated GFR (Non-African Ame >60 (>=60); Glucose 127 mg/dL (74-106); Potassium 3.2 mmol/L (3.5-5.1); Sodium 137 mmol/L (136-145)
[2024-01-27] MEDS: DIPHENHYDRAMINE HCL 50 MG/ML VIAL IV (06:45)
[2024-01-27] MEDS: METHYLPREDNISOLONE SOD SUCC PF 125 MG/2 ML VIAL IVP (06:45)
[2024-01-27] MEDS: METOCLOPRAMIDE HCL 10 MG/2 ML VIAL IVP (06:45)
--- NOTE | 2024-01-27 07:10 | PC.NURSE ---
reports migraine lasting 3 days. states she has taken Tylenol and Excedrin with no relief. she does have a neurologist she see. reports numbness and tingling in hands and feet starting with migraine.
[2024-01-27 07:36] VITALS: BP 111/63; PULSE 85; O2SAT 98
[2024-01-27 07:37] VITALS: O2SAT 98
== END 2024-01-27 07:47 | disposition home or self-care (01) ==
PROVIDERS: Internal Medicine; Emergency Provider Emergency Medicine Emergency Medical Services; PCP Family Medicine
DX: G43.909 Migraine, unspecified, not intractable, without status migrainosus (principal); Z87.891 Personal history of nicotine dependence
CPT/HCPCS: 36415; 80048; 85025; 96361; 96374; 96375; 99284; J1200; J2765; J2919

== ENCOUNTER 2025-06-23 11:16 | Outpatient (OUT) | payer OTHER, SELFPAY ==
--- OUTSIDE RECORDS SUMMARY | 2025-06-23 11:22 | XMS_ITS | Continuity of Care Document ---
Author Organization [facility] Address [address] [place] [address] Phone Care Team Providers Care Hospice Physician Name Role Phone Unavailable Primary Care Provider Unavailabl e Encounters DateTypeDepartmentCare YldtScuzyyylftr13/28/2023Legacy Encounter [facility] [id number] Ramakrishna Falcon MD Twin , dichorionic/diamniotic, second trimester ([facility]); Other specified disorders of amniotic fluid and membranes, second trimester, fetus 1 ([facility]); Other antepartum hemorrhage, second trimester ([facility]); 20 weeks gestation of ([facility])03/25/2023Scanned Document [facility] [address] [place] [address] Conversion, Onbase 03/25/2023Orders Only [facility] [address] [place] [address] Conversion, Onbase Social History Tobacco UseTypesPacks/DayYears UsedDateSmoking Tobacco: Never AssessedSex and Gender InformationValueDate RecordedSex Assigned at BirthNot on fileLegal Sex Igvbsq9405/26/2022 1:29 AM ESTGender IdentityNot on fileSexual OrientationNot on file Last Filed Vital Signs Vital SignReadingTime TakenCommentsBlood Gzliqmlc732/6509 10:16 AM EDT [id number] 10:16 AM EDTTemperature--Respiratory Rate--Oxygen Saturation-- Inhaled Oxygen Concentration--Giaxbc97 kg (130 lb)03/28/2023 10:16 AM EDTHeight 157.5 cm (5' 2 )03/28/2023 10:16 AM EDTBody Mass Index23.7809 10:16 AM EDT Plan of Treatment Not on file Procedures Procedure NamePriorityDate/TimeAssociated DiagnosisCommentsUS OB DETAIL [id number]/28/2023 3:20 PM EDT OUTSIDE IMAGING SCAN03/25/2023 Results * US OB detail anatomy (03/28/2023 3:20 PM EDT)Anatomical RegionLaterality ModalityBodyUltrasoundSpecimen (Source)Anatomical Location / Laterality Collection Method / VolumeCollection TimeReceived Time Narrative 03/29/2023 2:21 PM EDT Interpreted By: RAMAKRISHNA FALCON MD Indication ======== Twin , Abnormality Suspected History ====== General History Height ??157 cm Height (ft) ??5 ft Height (in) ??2 in Previous Outcomes ??1 Maternal Assessment Height ??157 cm Height (ft) ??5 ft Height (in) ??2 in Weight ??59 kg Weight (lb) ??130 lb Weight gain ??0 kg Weight gain (lb) ??0 lb BMI ??23.78 kg/m? Physical Exam Initial weight (lb) ??130 lb ========= Twin . Number of fetuses: 2 Dating ====== GA by prior assessment ??20 w + 0 d ARNALDO by prior assessment: ??08/15/2023 Ultrasound examination on: ??03/28/2023 GA by U/S based upon: ??AC, BPD, Femur, HC GA by U/S ??19 w + 4 d ARNALDO by U/S: ??08/18/2023 GA by U/S based upon (Fetus 2): ??AC, BPD, Femur, HC GA by U/S (Fetus 2) ??19 w + 5 d ARNALDO by U/S (Fetus 2): ??08/17/2023 Assigned: ??based on stated ARNALDO, selected on 03/28/2023 Assigned GA ??20 w + 0 d Assigned ARNALDO: ??08/15/2023 Growth Overview Exam date ?GA ?BPD (mm) ? HC (mm) ? AC (mm) ?FL (mm) ? HL (mm) ? EFW (g) 03/28/2023 ?20w 0d ?41.7 ? 6% ?163.1 ?9% ? 153.1 ? 62% ?31.6 ?? 36% ?29.9 ? 23% ?327 ?47% Growth Overview Exam date ?GA ?BPD (mm) ?HC (mm) ? AC (mm) ? FL (mm) ? HL (mm) ?EFW (g) 03/28/2023 ?20w 0d ?43.4 ? 17% ?167.6 ?18% ? 150.8 ? 55% ?32.5 ?? 47% ?29 ? 13% ?333 ?52% Impression ========= Di-Di twin gestation - rr cfDNA - Referred from [place] because of subchorionic hematomas A targeted anatomic survey was performed - Dichorionic/diamniotic twin gestation is confirmed - biometry of [...] previously been seen by Dr. Gonzales in [place]. Twins are doing well, their growth is [...] amount. MVP 3.7 cm Biometry Standard BPD ??41.7 mm ??18w 4d 6% Hadlock OFD ??59.6 mm ?? 35% INTERGROWTH-21st HC ??163.1 mm ??19w 0d 9% Hadlock Cerebellum tr ??20.6 mm ??20w 1d 55% Colon Nuchal fold ??3.9 mm AC ??153.1 mm ??20w 4d 62% Hadlock Femur ??31.6 mm ??19w 6d 36% Hadlock Humerus ??29.9 mm ?? 23% Chitty HC / AC ??1.07 ?? 5% Hadlock EFW ??327 g ??20w 0d 47% Hadlock EFW discordance ??1.7 % EFW (lb) ??0 lb EFW (oz) ??12 oz EFW by: ??Hadlock ([id number]) Extended Ward Service Supervisor ??5.8 mm CM ??3.9 mm ?? 16% Nicolaides Nasal bone ??4.7 mm Head / Face / Neck Cephalic index 0.70 <1% Nicolaides Nasal bone: ??present Extremities / Bony Struc FL / BPD ??0.76 ?? 93% Hadlock FL / HC ??0.19 ?? 65% Hadlock FL / AC ??0.21 ?? 19% Hadlock Other Structures FHR ??146 bpm Biometry Standard BPD ??43.4 mm ??19w 1d 17% Hadlock OFD ??61.5 mm ?? 61% INTERGROWTH-21st HC ??167.6 mm ??19w 3d 18% Hadlock Cerebellum tr ??20.6 mm ??20w 1d 55% Colon Nuchal fold ??4.5 mm AC ??150.8 mm ??20w 2d 55% Hadlock Femur ??32.5 mm ??20w 1d 47% Hadlock Humerus ??29.0 mm ?? 13% Chitty HC / AC ??1.11 ?? 17% Hadlock EFW ??333 g ??20w 0d 52% Hadlock EFW discordance ??1.7 % EFW (lb) ??0 lb EFW (oz) ??12 oz EFW by: ??Hadlock ([id number]) Extended Ward Service Supervisor ??5.4 mm CM ??3.6 mm ?? 11% Nicolaides Nasal bone ??4.6 mm Head / Face / Neck Cephalic index 0.71 <1% Nicolaides Nasal bone: ??present Extremities / Bony Struc FL / BPD ??0.75 ?? 89% Hadlock FL / HC ??0.19 ?? 65% Hadlock FL / AC ??0.22 ?? 44% Hadlock Other Structures FHR ??149 bpm Anatomy Cranium: ??Normal Lateral ventricles: ??Normal Choroid plexus: ??Normal Midline falx: ??Normal Cavum septi pellucidi: ??Normal Cerebellum: ??Normal Cisterna magna: ??Normal Head / Neck Head size: ??Normal Head shape: ??Normal Rt lateral ventricle: ??Normal Lt lateral ventricle: ??Normal Rt choroid plexus: ??Normal Lt choroid plexus: ??Normal Thalami: ??Normal Cerebellar lobes: ??Normal Vermis: ??Normal Neck: ??Normal Neck: ??No neck masses seen Lips: ??Normal Profile: ??Normal Nose: ??Normal Face Nasal bone: ??present Maxilla: ??Normal Mandible: ??Normal Orbits: ??Normal 4-chamber view: ??Normal RVOT view: ??Normal LVOT view: ??Normal 3-vessel view: ??Normal 7-tgketm-szlrldp view: ??Normal Heart / Thorax Situs: ??situs solitus (normal) Aortic arch view: ??Normal Bicaval view: ??Normal Cardiac position: ??levocardia (normal) Cardiac axis: ??Normal Cardiac size: ??normal (approx. 1/3 of thoracic area) Cardiac proportions: ??proportioned (normal) Cardiac rhythm: ??regular (normal) Rt lung: ??Normal Lt lung: ??Normal Rt diaphragm: ??Normal Lt diaphragm: ??Normal Cord insertion: ??Normal Stomach: ??Normal Kidneys: ??Normal Bladder: ??Normal Abdomen Abdom. wall: ??Normal Stomach: ??Stomach size and situs appear normal Rt kidney: ??Normal Lt kidney: ??Normal Small bowel: ??Normal Large bowel: ??Normal Cervical spine: ??Normal Thoracic spine: ??Normal Lumbar spine: ??Normal Sacral spine: ??Normal Arms: ??Normal Hands: ??normal Legs: ??Normal Feet: ??normal Rt upper arm: ??Normal Rt forearm: ??Normal Rt hand: ??Normal Rt fingers: ??Normal Lt upper arm: ??Normal Lt forearm: ??Normal Lt hand: ??Normal Lt fingers: ??Normal Rt upper leg: ??Normal Rt lower leg: ??Normal Rt foot: ??Normal Rt toes: ??Normal Lt upper leg: ??Normal Lt lower leg: ??Normal Lt foot: ??Normal Lt toes: ??Normal Position of hands: ??Normal Position of feet: ??Normal sex: ??male Wants to know sex: ??yes Anatomy Cranium: ??Normal Lateral ventricles: ??Normal Choroid plexus: ??Normal Midline falx: ??Normal Cavum septi pellucidi: ??Normal Cerebellum: ??Normal Cisterna magna: ??Normal Head / Neck Head size: ??Normal Head shape: ??Normal Rt lateral ventricle: ??Normal Lt lateral ventricle: ??Normal Rt choroid plexus: ??Normal Lt choroid plexus: ??Normal Thalami: ??Normal Cerebellar lobes: ??Normal Vermis: ??Normal Neck: ??Normal Neck: ??No neck masses seen Lips: ??suboptimal Profile: ??Normal Nose: ??suboptimal Face Nasal bone: ??present Maxilla: ??Normal Mandible: ??Normal Orbits: ??Normal 4-chamber view: ??Normal RVOT view: ??Normal LVOT view: ??Normal 3-vessel view: ??suboptimal 8-xuzqov-vzxbgkh view: ??suboptimal Heart / Thorax Situs: ??situs solitus (normal) Aortic arch view: ??Normal Bicaval view: ??Normal Cardiac position: ??levocardia (normal) Cardiac axis: ??Normal Cardiac size: ??normal (approx. 1/3 of thoracic area) Cardiac proportions: ??proportioned (normal) Cardiac rhythm: ??regular (normal) Rt lung: ??Normal Lt lung: ??Normal Rt diaphragm: ??Normal Lt diaphragm: ??Normal Cord insertion: ??Normal Stomach: ??Normal Kidneys: ??Normal Bladder: ??Normal Cervical spine: ??Normal Thoracic spine: ??Normal Lumbar spine: ??Normal Sacral spine: ??Normal Arms: ??Normal Hands: ??normal Legs: ??Normal Feet: ??normal Rt upper arm: ??Normal Rt forearm: ??Normal Rt hand: ??Normal Rt fingers: ??Normal Lt upper arm: ??Normal Lt forearm: ??Normal Lt hand: ??Normal Lt fingers: ??Normal Rt upper leg: ??Normal Rt lower leg: ??Normal Rt foot: ??Normal Rt toes: ??Normal Lt upper leg: ??Normal Lt lower leg: ??Normal Lt foot: ??Normal Lt toes: ??Normal sex: ??female Wants to know sex: ??yes Genetic Screen Age ??24 yrs Echogenic focus: ??no Ventriculomegaly: ??no Nuchal fold: ??normal Echogenic bowel: ??no Pyelectasis: ??no Short femur: ??no Short humerus: ??no Nasal bone: ??present Display risk: ??Risk at time of screening Genetic Screen Age ??24 yrs Echogenic focus: ??no Ventriculomegaly: ??no Nuchal fold: ??normal Echogenic bowel: ??no Pyelectasis: ??no Short femur: ??no Short humerus: ??no Nasal bone: ??present Display risk: ??Risk at time of screening Doppler Arterial Umbilical A PI ??1.07 ?? 6% Sandeep MCA PI ??1.54 ??-/- 33% Bahlmann MCA PS ??21.00 cm/s MoM ??0.82 CPR PI ??1.44 Thoracic desc. aorta PI ??1.38 ?? 7% Sandeep Venous Ductus lyudmila. PIV ??0.74 ?? 68% Hecher Umbilical vein: ??normal UmV S-wave ??15.00 cm/s Doppler Arterial Umbilical A PI ??1.65 ?? 85% Sandeep MCA PI ??1.50 ??-/- 28% Bahlmann MCA PS ??30.00 cm/s MoM ??1.18 CPR PI ??0.91 Venous Ductus venosus: ??normal Ductus lyudmila. PIV ??0.40 ?? 3% Hecher Maternal Structures Uterus / Cervix Uterus: ??Visualized Uterus details: ??Normal Cervix: ??Visualized Cervix details: ??Long and closed Cervical length ??32.3 mm Ovaries / Tubes / Adnexa Rt ovary: ??Not visualized Lt ovary: ??Not visualized Method ====== Transabdominal ultrasound examination. View: Suboptimal view: limited by activity Procedure Note Ramakrishna Falcon MD - 03/29/2023 Interpreted By: RAMAKRISHNA FALCON MD Indication ======== Twin , Abnormality Suspected History [...] gestation - rr cfDNA - Referred from [place] because of subchorionic hematomas A targeted anatomic survey was performed - Dichorionic/diamniotic twin gestation is confirmed - biometry of [...] previously been seen by Dr. Gonzales in [place]. Twins are doing well, their growth is [...] EFW (oz) 12 oz EFW by: Hadlock ([id number]) Extended Ward Service Supervisor 5.8 mm CM 3.9 mm 16% [...] 19w 1d 17% Hadlock OFD 61.5 mm 61% INTERGROWTH-21st HC 167.6 mm 19w 3d 18% Hadlock Cerebellum tr 20.6 mm 20w 1d 55% Colon Nuchal fold 4.5 mm AC 150.8 mm 20w 2d 55% Hadlock Femur 32.5 mm 20w 1d 47% Hadlock Humerus 29.0 mm 13% Chitty HC / AC 1.11 17% Hadlock EFW 333 g 20w 0d 52% Hadlock EFW discordance 1.7 % EFW (lb) 0 lb EFW (oz) 12 oz EFW by: Hadlock ([id number]) Extended Ward Service Supervisor 5.4 mm CM 3.6 mm 11% Nicolaides Nasal bone 4.6 mm Head / Face / Neck Cephalic index 0.71 <1% Nicolaides Nasal bone: present Extremities / Bony Struc FL / BPD 0.75 89% Hadlock FL / HC 0.19 65% Hadlock FL / AC 0.22 44% Hadlock Other Structures FHR 149 bpm Anatomy Cranium: Normal Lateral ventricles: Normal Choroid plexus: Normal Midline falx: Normal Cavum septi pellucidi: Normal Cerebellum: Normal Cisterna magna: Normal Head / Neck Head size: Normal Head shape: Normal Rt lateral ventricle: Normal Lt lateral ventricle: Normal Rt choroid plexus: Normal Lt choroid plexus: Normal Thalami: Normal Cerebellar lobes: Normal Vermis: Normal Neck: Normal Neck: No neck masses seen Lips: Normal Profile: Normal Nose: Normal Face Nasal bone: present Maxilla: Normal Mandible: Normal Orbits: Normal 4-chamber view: Normal RVOT view: Normal LVOT view: Normal 3-vessel view: Normal 9-dazcwc-fdxtthf view: Normal Heart / Thorax Situs: situs solitus (normal) Aortic arch view: Normal Bicaval view: Normal Cardiac position: levocardia (normal) Cardiac axis: Normal Cardiac size: normal (approx. 1/3 of thoracic area) Cardiac proportions: proportioned (normal) Cardiac rhythm: regular (normal) Rt lung: Normal Lt lung: Normal Rt diaphragm: Normal Lt diaphragm: Normal Cord insertion: Normal Stomach: Normal Kidneys: Normal Bladder: Normal Abdomen Abdom. wall: Normal Stomach: Stomach size and situs appear normal Rt kidney: Normal Lt kidney: Normal Small bowel: Normal Large bowel: Normal Cervical spine: Normal Thoracic spine: Normal Lumbar spine: Normal Sacral spine: Normal Arms: Normal Hands: normal Legs: Normal Feet: normal Rt upper arm: Normal Rt forearm: Normal Rt hand: Normal Rt fingers: Normal Lt upper arm: Normal Lt forearm: Normal Lt hand: Normal Lt fingers: Normal Rt upper leg: Normal Rt lower leg: Normal Rt foot: Normal Rt toes: Normal Lt upper leg: Normal Lt lower leg: Normal Lt foot: Normal Lt toes: Normal Position of hands: Normal Position of feet: Normal sex: male Wants to know sex: yes Anatomy Cranium: Normal Lateral ventricles: Normal Choroid plexus: Normal Midline falx: Normal Cavum septi pellucidi: Normal Cerebellum: Normal Cisterna magna: Normal Head / Neck Head size: Normal Head shape: Normal Rt lateral ventricle: Normal Lt lateral ventricle: Normal Rt choroid plexus: Normal Lt choroid plexus: Normal Thalami: Normal Cerebellar lobes: Normal Vermis: Normal Neck: Normal Neck: No neck masses seen Lips: suboptimal Profile: Normal Nose: suboptimal Face Nasal bone: present Maxilla: Normal Mandible: Normal Orbits: Normal 4-chamber view: Normal RVOT view: Normal LVOT view: Normal 3-vessel view: suboptimal 7-cezfoc-fchfdom view: suboptimal Heart / Thorax Situs: situs solitus (normal) Aortic arch view: Normal Bicaval view: Normal Cardiac position: levocardia (normal) Cardiac axis: Normal Cardiac size: normal (approx. 1/3 of thoracic area) Cardiac proportions: proportioned (normal) Cardiac rhythm: regular (normal) Rt lung: Normal Lt lung: Normal Rt diaphragm: Normal Lt diaphragm: Normal Cord insertion: Normal Stomach: Normal Kidneys: Normal Bladder: Normal Cervical spine: Normal Thoracic spine: Normal Lumbar spine: Normal Sacral spine: Normal Arms: Normal Hands: normal Legs: Normal Feet: normal Rt upper arm: Normal Rt forearm: Normal Rt hand: Normal Rt fingers: Normal Lt upper arm: Normal Lt forearm: Normal Lt hand: Normal Lt fingers: Normal Rt upper leg: Normal Rt lower leg: Normal Rt foot: Normal Rt toes: Normal Lt upper leg: Normal Lt lower leg: Normal Lt foot: Normal Lt toes: Normal sex: female Wants to know sex: yes Genetic Screen Age 24 yrs Echogenic focus: no Ventriculomegaly: no Nuchal fold: normal Echogenic bowel: no Pyelectasis: no Short femur: no Short humerus: no Nasal bone: present Display risk: Risk at time of screening Genetic Screen Age 24 yrs Echogenic focus: no Ventriculomegaly: no Nuchal fold: normal Echogenic bowel: no Pyelectasis: no Short femur: no Short humerus: no Nasal bone: present Display risk: Risk at time of screening Doppler Arterial Umbilical A PI 1.07 6% Sandepe MCA PI 1.54 -/- 33% Bahlmann MCA PS 21.00 cm/s MoM 0.82 CPR PI 1.44 Thoracic desc. aorta PI 1.38 7% Sandeep Venous Ductus lyudmila. PIV 0.74 68% Hecher Umbilical vein: normal UmV S-wave 15.00 cm/s Doppler Arterial Umbilical A PI 1.65 85% Sandeep MCA PI 1.50 -/- 28% Bahlmann MCA PS 30.00 cm/s MoM 1.18 CPR PI 0.91 Venous Ductus venosus: normal Ductus lyudmila. PIV 0.40 3% Hecher Maternal Structures Uterus / Cervix Uterus: Visualized Uterus details: Normal Cervix: Visualized Cervix details: Long and closed Cervical length 32.3 mm Ovaries / Tubes / Adnexa Rt ovary: Not visualized Lt ovary: Not visualized Method ====== Transabdominal ultrasound examination. View: Suboptimal view: limited by activity Authorizing ProviderResult TypeResult StatusRamakrishna DEL TORO OB US PROCEDURESFinal Result * OUTSIDE IMAGING SCAN (03/25/2023)Anatomical RegionLateralityModalityOther Narrative 03/25/2023 Ordered by an unspecified provider. Authorizing ProviderResult TypeResult StatusOnbase ConversionOUTSIDE SCANFinal Result Visit Diagnoses DiagnosisStart Date Twin , dichorionic/diamniotic, second trimester ([facility]) 03/28/2023 Other specified disorders of amniotic fluid and membranes, second trimester, fetus 1 ([facility]) 03/28/2023 Other antepartum hemorrhage, second trimester ([facility]) 03/28/2023 20 weeks gestation of ([facility]) 03/28/2023
--- OUTSIDE RECORDS SUMMARY | 2025-06-23 11:22 | XMS_ITS | Clinical Summary ---
Author Organization [employer] [facility] tem Address [id number] [address] [place] [address] Care Team Providers Care Trench Digging Machine Operator Name Role Phone Latricia Arroyo APRN-[facility] Primary Care Provider Allergies No known active allergies Medications MedicationSigDispense QuantityRefillsLast FilledStart DateEnd DateStatus SUMAtriptan (IMITREX) 50 mg tablet Indications:Migraine without aura and without status migrainosus, not intractableTake 1 tablet (50 mg total) by mouth once as needed for migraine for up to 1 dose. May repeat in 2 hours if unresolved. Do not exceed 200 mg in 24 hours. 30 tablet 4Active buPROPion XL (WELLBUTRIN XL) 150 mg 24 hr tablet Take 1 tablet (150 mg total) by mouth every morning.06/15/2024ctive prazosin (MINIPRESS) 1 mg capsule Indications:Night terrorsTake 1 capsule (1 mg total) by mouth nightly. 30 capsule 5Active citalopram (CeleXA) 40 mg tablet Indications:AnxietyTake 1 tablet (40 mg total) by mouth in the morning. 90 tablet 5Active citalopram (CeleXA) 40 mg tablet Indications:AnxietyTAKE 1 TABLET (40 MG TOTAL) BY MOUTH IN THE MORNING 90 tablet Discontinued(Reorder) Active Problems ProblemNoted DateDiagnosed FikaEwzbvrp15/11/2024llergic rhinitis due to pollen 11/20/2023Migraine with aura and without status migrainosus, not intractable 11/20/2023ichorionic diamniotic twin in second caamjfurp92/29/2023 Subchorionic hematoma in second /29/2023 Resolved Problems ProblemNoted DateDiagnosed DateResolved DateDepression affecting Subchorionic hematoma in first gzdfptegp40/05/2024 Anxiety during qkldvbjba13 Encounters DateTypeDepartmentCare VwnbIvshhfnabdg12/15/2025Refill [facility] [address] [place] [phone] María Roe CNA Dmcpsuk7204/29/2025Refill [facility] [address] [place] [phone] Latricia Arroyo APRN-CNP from Last 3 Months Family History Medical HistoryRelationNameCommentsCOPDFatherMigrainesMotherBrain cancerPaternal AuntBreast cancerPaternal GrandmotherDiabetesSisterColon cancerNeg Hx HypertensionNeg HxOvarian cancerNeg HxStrokeNeg HxRelationNameStatusComments FatherAliveMotherAlivePaternal AuntDeceasedPaternal GrandmotherSister Social History Tobacco UseTypesPacks/DayYears UsedDateSmoking Tobacco: FormerCigarettes Smokeless Tobacco: Never Tobacco Cessation:Counseling Given: Not Answered Alcohol UseStandard Drinks/WeekCommentsNot Currently0 (1 standard drink = 0.6 oz pure alcohol)RARELYPHQ-2AnswerDate RecordedTotal Jnhjq3528/19/2025Hunger ScreeningAnswerDate RecordedWithin the past 12 months we worried whether our food would run out before we got money to buy more.Never True12/17/2024Within the past 12 months the food we bought just didn't last and we didn't have money to get more.Never True12/17/2024CommentsNoSex and Gender Information ValueDate RecordedSex Assigned at BirthNot on fileLegal RlrJendfp64/19/2021 8:27 AM EDTGender IdentityNot on fileSexual OrientationNot on file Last Filed Vital Signs Vital SignReadingTime TakenCommentsBlood Bjysbcha432/6006/ 3:24 PM EDT Iiewo9191 3:24 PM IGCKjxiaachlom89.6 ??C (97.8 ??F)12/17/2024 3:24 PM EDTRespiratory Nkll5289 12:21 PM ESTOxygen Yohnydzgla90%12/17/2024 3:24 PM EDTInhaled Oxygen Concentration--Vogbne51.5 kg (107 lb)12/17/2024 3:24 PM EDT Gffuqk392.5 cm (5' 2 )12/17/2024 3:24 PM EDTBody Mass Index19.57012/17/2024 3:24 PM EDT Plan of Treatment DateTypeDepartmentCare Team (Latest Contact Info)Vxagymcgnis63/06/2026 9:20 AM ESTOffice Visit [facility] [address] [place] [address] Latricia Arroyo, EMERGENCY DOCTOR-[facility] [address] [place] [phone] Health MaintenanceDue DateLast DoneCommentsPap Smear/ Influenza Jrghoaf40/08/2023, 01/05/2022dult BMI Dsyunheqo02/19/2026 12/17/2024Depression Zemvnswjq67Tobacco Zmjnfyqkz95/19/2026 12/17/2024DTaP,Tdap and Td Vaccines (8 - Td or Tdap), 02/18/2012, 02/22/2005, Additional history exists Medical Devices Not on file Procedures Procedure NamePriorityDate/TimeAssociated DiagnosisCommentsPAP SMEARRoutine 10/25/2020 10:03 PM EDT Well woman exam with routine gynecological exam from Last 3 Months or Most Recently Relevant to Health Maintenance Results * Pap Smear (10/25/2020 10:03 PM EDT)Specimen (Source)Anatomical Location / LateralityCollection Method / VolumeCollection TimeReceived Time10/25/2020 10:03 PM EDT10/25/2020 10:05 PM EDT Narrative COPATH - 10/26/2020 6:48 PM EDT [facility] ? [address] [place] [address] ? [place] [address] ? Gynecologic Cytology Consultation ? Patient Name: SHANON LOUISE : 2000 (Age: 20) Gender: F Taken: 10/25/2020 Reported: 10/26/2020 Physician(s): Althea Allred CNP ( ) Copy To: ?? [facility]. Rec. #:[id number] Acct: # [id number] Final Cytologic Interpretation ThinPrep Pap Test (Cervical): Satisfactory for evaluation. A transformation zone component is present. NEGATIVE FOR INTRAEPITHELIAL LESION OR MALIGNANCY. ?? [facility] [place]/10/26/2020 Interpretation performed at [facility], [address] [place] [address], License number: [id number]. Electronically Signed Out By ?LATRICIA Latif(ASCP) Date of Last Menstrual Period: ? (None Given) Other Clinical Conditions: Z01.419 Motion Picture Camera Operator exam wo/abn findings Z11.3 Encntr screen for infections w sexl mode of transmiss IUD Source of Specimen ??ThinPrep Pap Test (Cervical) ? Thin Prep Pap (TERMITE TECHNICIAN) Fee Code(s): ?? G0145 The Pap test is a screening test with an inherent, but low, probability of error. The Pap test is primarily effective for the diagnosis and prevention of squamous cell carcinoma. Regular screening iscritical for prevention. ThinPrep liquid-based slides, which meet the Tetryl Screen Operator criteria for automated screening, have been screened by the [employer] System (as of 03/17/07) along with an additional manual rescreening by a education research analyst and, if indicated, by a pathologist. Authorizing ProviderResult TypeResult StatusTracy Courtney Allred EMERGENCY DOCTOR-[facility] PATHOLOGY/CYTOLOGY ORDERABLESFinal ResultPerforming OrganizationAddress City/State/ZIP CodePhone Number COPATH from Last 3 Months or Most Recently Relevant to Health Maintenance Insurance Care Teams Team MemberRelationshipSpecialtyStart DateEnd Date Latricia Arroyo APRN-[facility] [address] [place] [phone] PCP - GeneralNdl Practitioner02/04/24
--- OUTSIDE RECORDS SUMMARY | 2025-06-23 11:22 | XMS_ITS | Encounter Summary ---
Author Organization [facility] [employer] [facility] tem Address [id number] [address] [place] [address] Care Team Providers Care Inner Tube Inserter Name Role Phone Latricia Arroyo APRN-CHIEF BUILDING INSPECTOR Primary Care Provider Reason for Visit * ReasonOnset DateCommentsMed Fnbmgh7106/14/2025 Encounter Details DateTypeDepartmentCare Team (Latest Contact Info)Biooysiexla35/15/2025Refill [facility] [address] [place] [phone] María Roe CNA Anxiety Social History Tobacco UseTypesPacks/DayYears UsedDateSmoking Tobacco: FormerCigarettes Smokeless Tobacco: NeverAlcohol UseStandard Drinks/WeekCommentsNot Currently0 (1 standard drink = 0.6 oz pure alcohol)RARELYPHQ-2AnswerDate RecordedTotal Score15 12/17/2024Hunger ScreeningAnswerDate RecordedWithin the past 12 months we worried whether our food would run out before we got money to buy more.Never True12/17/2024Within the past 12 months the food we bought just didn't last and we didn't have money to get more.Never True12/17/2024CommentsNoSex and Gender InformationValueDate RecordedSex Assigned at BirthNot on fileLegal Sex Eqrobz4110/17/2020 8:27 AM EDTGender IdentityNot on fileSexual OrientationNot on filedocumented as of this encounter Plan of Treatment DateTypeDepartmentCare Team (Latest Contact Info)Pyezyslzpbl60/06/2026 9:20 AM ESTOffice Visit [facility] [address] [place] [phone] Latricia Arroyo APRN-CNP [address] [place] [phone] documented as of this encounter Visit Diagnoses Diagnosis Anxiety Anxiety state, unspecified documented in this encounter Additional Health Concerns AssessmentNoted TimePHQ-9 Depression Total Score: 15012/17/2024 3:23 PM EDT documented as of this encounter Care Teams Team MemberRelationshipSpecialtyStart DateEnd Date Latricia Arroyo APRN-CNP [address] [place] [phone] PCP - GeneralNurse Practitioner02/04/24documented as of this encounter
--- OUTSIDE RECORDS SUMMARY | 2025-06-23 11:22 | XMS_ITS | Clinical Summary ---
Author Organization [facility] Address [address] [place] [address] Care Team Providers Care Public Health Registrar Name Role Phone Shan Moya MD Primary Care Provider [phone] Shan Moya MD Unavailable Allergies No known active allergies Medications MedicationSigDispense QuantityRefillsLast FilledStart DateEnd DateStatus citalopram (CeleXA) 40 MG tablet Take 40 mg by mouth in the morning.Active hydrOXYzine HCl (Atarax) 25 MG tablet Take 25 mg by mouth 1 (one) time.Active pantoprazole (ProtoNix) 40 MG EC tablet Take 40 mg by mouth in the morning. Take before meals.Active Aspirin Low Dose 81 MG EC tablet Take 81 mg by mouth in the morning.Active buPROPion XL (Wellbutrin XL) 150 MG 24 hr tablet Indications:Generalized anxiety disorderTake 1 tablet (150 mg) by mouth in the morning and 1 tablet (150 mg) before bedtime. Do not crush, chew, or split.. 60 tablet 5Active Active Problems ProblemNoted DateDiagnosed DateBipolar affective disorder, mixed, mild degree 11/20/2023hronic neck pain11/20/2023Generalized anxiety cfzjanrq49/22/2024 Gastroesophageal reflux disease without ozqxxpikouc79/22/2024Hormone imbalance 11/20/2023Irregular uterine gezcierz20/22/2024Irritable bowel fudjsyiz24/22/2024 Migraine with aura and without status migrainosus, not eycyoqonncp75/22/2024 Allergic rhinitis due to mdzhif7611/20/2023 Resolved Problems ProblemNoted DateDiagnosed DateResolved DateHypertension affecting in third trimester ([facility])4007/22/2023Third trimester ([facility]) /07/2023 Encounters DateTypeDepartmentCare JhjjPzasijaqsab12/26/2025Telephone [facility]ARE[facility] [address] [place] [phone] Cecil Quintana DO from Last 3 Months Family History Medical HistoryRelationNameCommentsEndometriosisMotherHyperlipidemiaMotherMental illnessMotherMigrainesMotherdrug useMother whatever she can take alcoholOther HypertensionSiblingRelationNameStatusCommentsFatherAliveMotherAliveOtherMaternal uncleSiblingSister1 sister Social History Tobacco UseTypesPacks/DayYears UsedDateSmoking Tobacco: NeverAlcohol UseStandard Drinks/WeekCommentsNever0 (1 standard drink = 0.6 oz pure alcohol)Caffeine intake 1-2 cups per day popEducationAnswerDate RecordedWhat is the highest level of school you have completed or the highest degree you have received?9th grade 3CommentsNoSex and Gender InformationValueDate RecordedSex Assigned at RrjzmMpwwlz21/30/2023 2:57 PM EDTLegal RcbBcdshk82/15/2023 7:04 PM EDTGender LzjfwmagUvrycq13/30/2023 2:57 PM EDTSexual OrientationNot on file OccupationIndustryJob Start DateJob End DatestudentNot on fileNot on fileNot on file Last Filed Vital Signs Vital SignReadingTime TakenCommentsBlood Fqdmsvcy314/62007/21/2024 2:17 PM EST Pulse--Temperature--Respiratory Rate--Oxygen Saturation--Inhaled Oxygen Concentration--Whmocs94.7 kg (122 lb 12.8 oz)07/21/2024 2:17 PM YDJWituux899.5 cm (5' 2 )01/11/2023 10:01 AM EDTBody Mass Index22.46001/11/2023 10:01 AM EDT Plan of Treatment Health MaintenanceDue DateLast DoneCommentsInfluenza Vaccine (#1)03/01/2025 06/01/2024, 2Pneumococcal Vaccine: Pediatrics (0 to 5 Years) and At- Risk Patients (6 to 64 Years)Aged OutNo longer eligible based on patient's age to complete this topic Insurance Care Teams Team MemberRelationshipSpecialtyStart DateEnd Date Shan Moya MD PCP - GeneralCardiology11/28/22 Shan Moya MD [address] [place] [address] PCP - [facility]07/01/24
--- NOTE | 2025-06-23 11:24 | US_ITS ---
The [address] [address] Patient Name: LELIA CONNOLLY MRN: [id number] date: 2000 Sex: F Assigned Patient Location: US Current Patient Location: US Accession/Order Number: [id number] Exam Date: 06/23/2025 11:30 Report Date: 06/23/2025 12:20 At the request of: EN JOHNSON DO Procedure: US pelvis w/ transvaginal ULTRASOUND PELVIS WITH TRANSVAGINAL COMPARISON: 05/31/2022 ultrasound CLINICAL DATA: Right pelvic pain 3 weeks following for twin . History of endometriosis. Real-time ultrasound evaluation the pelvis was performed utilizing both a transabdominal and transvaginal approach. TRANSABDOMINAL: Estimated uterine size is approximately 8.5 x 3.8 x 4.8 cm. No focal myometrial abnormalities are seen. The endometrial lining is estimated at 8 mm. The right ovary is identified and contains a small cyst. The left ovary is not seen by this approach. TRANSVAGINAL: Transvaginal imaging was performed to better evaluate the uterus and adnexa. By this approach, the endometrial lining is estimated at 11 - 13 mm. No focal abnormalities are identified. Both ovaries are seen. The right ovary measures 4.5 x 3.9 x 2.1 cm. There is a small minimally complicated cystic structure measuring 12 x 15 x 14 mm. There is also a heterogeneous hypoechoic and hyperechoic area measuring 17 x 17 x 14 mm. It is possible this is still complex cystic. The left ovary measures 2.5 x 1.7 x 2.1 cm. There are small follicles. There is documentation of ovarian blood flow. A trace amount of free fluid is present at the posterior cul-de-sac. US/US pelvis w/ transvaginal IMPRESSION: NO SUSPECTED RETAINED PRODUCTS OF CONCEPTION. RIGHT OVARY NODULARITY, DESCRIBED. Impression dictated by: Lili Thomas M.D. 06/23/2025 12:20 PM Dictation Location: [place] [address] Electronically authenticated by: [id number] Y Date: 06/23/2025 12:20
== END 2025-06-23 11:17 | disposition home or self-care (01) ==
LOC: US 11:18
PROVIDERS: PCP Family Medicine; Visit Provider Obstetrics & Gynecology
DX: R10.20 Pelvic and perineal pain unspecified side (principal)
CPT/HCPCS: 76830; 76856